=== PATIENT | female | born 1935 | race Caucasian/White ===

== ENCOUNTER 2022-07-10 07:45 | Day surgery (SDC) | payer MEDICARE, OTHER, SELFPAY ==
[2022-07-10] MEDS: Lactated Ringers 1,000 ML 15 ML IV (08:29)
[2022-07-10 08:30] VITALS: BP 169/76; PULSE 75; RESP 18; TEMP 36.9; O2SAT 99; BMI 22.6
[2022-07-10 08:33] LABS: Hematocrit 34.8 % (37-47); Hemoglobin 11.6 g/dL (12.0-15.0); Mean Corp Hgb Conc 33.3 g/dL (32-36); Mean Corpuscular Hgb 31.5 pg (27.0-32.0); Mean Corpuscular Volume 94.6 fL (81-99); Mean Platelet Vol. 9.3 fl (6.2-12.0); Platelet Count 197 K/mm3 (150-450); RBC Distribution Width CV 12.6 % (11.6-14.6); Red Blood Count 3.68 M/mm3 (4.2-5.4); White Blood Count 5.7 K/mm3 (4.4-11.0)
[2022-07-10 09:09] LABS: International Normalized Ratio 1.1; Prothrombin Time (Protime)PT. 14.3 SECONDS (11.7-14.9)
[2022-07-10 09:12] LABS: AST(SGOT) 46 U/L (15-37); Alanine Aminotransfer ALT/SGPT 37 U/L (13-56); Albumin, Serum 3.5 g/dL (3.2-5.0); Alkaline Phosphatase 112 U/L (45-117); Anion Gap 8 (5-15); BUN 15 mg/dL (7-18); BUN/Creat Ratio 16.8 RATIO (10-20); Bilirubin, Direct 0.15 mg/dL (0.00-0.30); Calcium,Total 8.3 mg/dL (8.5-10.1); Chloride 102 mmol/L (98-107); Creatinine, Serum 0.89 mg/dL (0.55-1.02); EST Glomerular Filtration Rate 64 mL/min (>60); Est Glom Filt Rate - Afr Amer 77 mL/min (>60); Estimated Creatinine Clearance 39.18 ml/min; Globulin 3.2 g/dL (2.2-4.2); Glucose 106 mg/dL (74-106); Potassium 4.7 mmol/L (3.5-5.1); Protein, Total 6.7 g/dL (6.4-8.2); Sodium Level 134 mmol/L (136-145)
[2022-07-10 09:31] LABS: Partial Thromboplast Time 23.4 Seconds (24.1-36.2)
--- NOTE | 2022-07-10 09:50 | BLA_PTH ---
PATIENT: JEFFREY CARROLL LOC: [facility] [place] U#:[id number] AGE/SX: 87/F ROOM: RE07/10/[address]: Dr. Shantel Rasmussen MD : [id number] BED: DIS: 07/10/2022 SPEC #: [id number] RECD: 07/10/22 12:36 STATUS: JOSE GASPAR #: [id number] JOANNA: 07/10/22 09:[address]: Shantel Rasmussen DEPT: SURGICAL PATHOLOGY RECD BY: Tiffani Burkett ENTERED: 07/11/22 06:47 SP TYPE: BLADDER BX OTHR DR: CLAUDINE XIE MD Tissues: Urinary bladder, NOS Procedures: Surgery Specimen Level IV HEADER OPERATION: Cysto, biopsy, fulguration, bladder tumor PRE-OP DIAGNOSIS: Bladder lesion small, recurrent UTI TISSUE SUBMITTED: Bladder biopsy MICROSCOPIC DIAGNOSIS Bladder, biopsy: Fragments of urothelial mucosa with moderate to marked acute and chronic inflammation and granulation tissue reaction. Negative for malignancy. See comment. RYAN:ludy 07/11/2022 COMMENT The overlying epithelium is denuded in most of the specimen. Clinical correlation and appropriate follow up are necessary. Case has been reviewed in consultation with Dr. Ivan who concurs with the above diagnosis. IDC:AM MICROSCOPIC DESCRIPTION Slides are reviewed. GROSS DESCRIPTION Received in fixative is one container labeled with the patient's name and designated bladder biopsy. The specimen consists of multiple irregular fragments of mckeon soft tissue that in aggregate measure 0.6 x 0.2 x 0.1 cm. The specimen is totally submitted in one cassette. / RYAN:ludy 07/10/2022 TC:2 CPT: 03828
--- NOTE | 2022-07-10 10:25 | DCINST_ITS ---
Discharge Instructions Diet Discharge Diet: No restrictions Activity Discharge Activity: Return to Normal Activity Dressing / Incision Call your doctor if you observe: Fever of 101 or Higher, Inability to urinate and Inability to have a bowel movement Follow Up Care Please Follow Up With: Shantel Rasmussen MD When: call office for appt Test Results: Test results from this visit will be discussed in further detail at your follow- up appointment, if applicable. Discharge Plan Admission Attending Provider: Shantel Rasmussen Primary Care Provider: CLAUDINE XIE Discharge Orders/Prescriptions Prescriptions: New phenazopyridine [phenazopyridine] 100 mg tablet 100 mg PO TID Qty: 30 0RF Continued atorvastatin 40 mg Tablet 40 mg PO QHS metoprolol succinate 50 mg Tablet Extended Release 24 Hr 50 mg PO QHS amlodipine 5 mg Tablet 5 mg PO 1500 omeprazole 40 mg Capsule,Delayed Release(Dr/Ec) 40 mg PO BID aspirin [Ecotrin Low Strength] 81 mg Tablet,Delayed Release (Dr/Ec) 81 mg PO DAILY carbamazepine 200 mg Tablet 200 mg PO TID colesevelam 625 mg Tablet 1,875 mg PO BID carbamazepine 100 mg Tablet,Chewable 50 mg PO TID nitroglycerin 0.4 mg Tablet, Sublingual 0.4 mg SUBLINGUAL Q5M PRN (Reason: Chest Pain) Rx Instructions: do not exceed 3 doses per episode ascorbic acid (vitamin C) [Vitamin C] 500 mg Capsule, Extended Release 500 mg PO DAILY estradiol 0.01 % (0.1 mg/gram) Cream 1 g VAGINAL MOTHSA methadone 5 mg Tablet 5 mg PO BID losartan 100 mg Tablet 100 mg PO DAILY vitamin B6-vitamin E-magnesium Tablet 1 tab PO DAILY cholecalciferol (vitamin D3) [Vitamin D3] 50 mcg (2,000 unit) Capsule 50 mcg PO DAILY melatonin 5 mg Capsule 5 mg PO QHS Centrum Silver Women 8 mg iron-400 mcg-300 mcg Tablet 1 tab PO QHS Myrbetriq 50 mg Tablet Extended Release 24 Hr 50 mg PO BID Probiotic 3 billion cell Capsule 3,000 mmu cells PO DAILY Rx Instructions: administer with a meal hydroxyzine HCl 25 mg Tablet 25 mg PO BID PRN (Reason: Anxiety) Transdermal Pain Base Cream 1 applic MISCELLANEOUS PRN PRN (Reason: ARTHRITIS) Referrals / Follow Up: CLAUDINE XIE MD [Primary Care Provider] - Disposition Disposition (needs filled in before D/C Order can be placed): Home, Self Care
--- NOTE | 2022-07-10 10:28 | OP.PCM_ITS ---
Report of Operation Date of Procedure: 07/10/22 Pre-Operative Diagnosis: Bladder lesion small, recurrent urinary tract infectio ns Post-Operative Diagnosis: same Surgery/Procedure Performed:: cystoscopy, bladder biopsy with fulguration Surgeon: Shantel Rasmussen Type of Anesthesia: MAC Specimen's removed: Several small mucosal bladder biopsies Description of Procedure: The patient is an 87-year-old female with recurrent urinary tract infections who had a cystoscopy in the office. This revealed an area on the right lateral wall lateral to the ureteral orifice which was very erythematous and inflamed and consistent with either inflammation or early transitional cell malignant changes. Informed consent was obtained and the patient agreed to proceed with biopsy under anesthesia. The patient was taken to the operating room and placed on the operating room table. Anesthesia monitored the head, neck, airway, IV access and vital signs throughout the case. Once anesthesia was appropriately administered, the patient was placed into dorsal lithotomy position was prepped and draped in usual sterile fashion. The cystoscope was inserted through the urethra under direct visualization. The area in question appeared to be much less erythematous today however there was slight edema of the tissues and the biopsies were taken. The areas of biopsy were then fulgurated for hemostatic control and tissue treatment. A small area of erythema approximately 5 mm in size was seen adjacent to the left ureteral orifice and this area was also biopsied and fulgurated. Care was taken to avoid fulguration of the ureteral orifice on both sides. The patient's bladder was then emptied and the case was terminated. She was awakened and taken to the recovery room in good condition. There were no complications during this procedure. Grafts/Implants Used: None Complications none Admit VTE Documentation VTE Present on Admission: Yes VTE Mechan Device Prophylaxis: SCD's VTE Pharm Prophylaxis ordered?: No Reason prophylaxis not ordered:: Treatment Not Indicated
[2022-07-10] MEDS: Cefazolin 2 GM in 0.9% Normal Saline 100 ML IV (10:42)
[2022-07-10 11:18] VITALS: BP 138/47; BP 169/76; PULSE 69; RESP 16; TEMP 36.1; O2SAT 99
[2022-07-10 11:20] VITALS: BP 131/58; BP 169/76; PULSE 69; RESP 16; O2SAT 100
[2022-07-10 11:25] VITALS: BP 138/74; BP 169/76; PULSE 66; RESP 16; O2SAT 100
[2022-07-10 11:30] VITALS: BP 156/85; BP 169/76; PULSE 66; RESP 16; TEMP 36.2; O2SAT 100
[2022-07-10 12:34] VITALS: BP 148/81; BP 169/76; PULSE 68; RESP 14; TEMP 36.6; O2SAT 97
== END 2022-07-10 12:40 | disposition home or self-care (01) ==
LOC: SDC 07:46 → AC 07:49
PROVIDERS: Anesthesiology; PCP Family Medicine; Referring Provider Urology; Visit Provider Urology
PROC: 0TBB8ZX Excision of Bladder, Via Natural or Artificial Opening Endoscopic, Diagnostic (ICD-10-PCS; CPT 52204; principal; 2022-07-10 09:40)
DX: N30.20 Other chronic cystitis without hematuria (principal); N39.46 Mixed incontinence; N32.81 Overactive bladder; N95.2 Postmenopausal atrophic vaginitis; I25.10 Atherosclerotic heart disease of native coronary artery without angina pectoris; R23.3 Spontaneous ecchymoses; I10 Essential (primary) hypertension; E78.00 Pure hypercholesterolemia, unspecified; G47.33 Obstructive sleep apnea (adult) (pediatric); I25.2 Old myocardial infarction; Z79.82 Long term (current) use of aspirin; Z79.899 Other long term (current) drug therapy
CPT/HCPCS: 52204; 00910; 80048; 80076; 85027; 85610; 85730; 88305; J7120; J2405

== ENCOUNTER 2023-10-01 06:00 | Day surgery (SDC) | payer MEDICARE, OTHER, SELFPAY ==
[2023-10-01] VITALS (7 sets, daily range): BP systolic 128–173; BP diastolic 72–83; PULSE 68–72; RESP 16; TEMP 36.4–37.2; O2SAT 98–100; BMI 22.3
[2023-10-01] MEDS: Lactated Ringers 1,000 ML 15 ML IV (06:31)
[2023-10-01 06:37] LABS: Hematocrit 37.4 % (37-47); Hemoglobin 11.7 g/dL (12.0-15.0); Mean Corp Hgb Conc 31.3 g/dL (32-36); Mean Corpuscular Hgb 29.8 pg (27.0-32.0); Mean Corpuscular Volume 95.4 fL (81-99); Mean Platelet Vol. 9.3 fl (6.2-12.0); Platelet Count 250 K/mm3 (150-450); RBC Distribution Width CV 12.8 % (11.6-14.6); RBC Distribution Width SD 44.8 fl (35.1-43.9); Red Blood Count 3.92 M/mm3 (4.2-5.4); White Blood Count 10.5 K/mm3 (4.4-11.0)
[2023-10-01 06:49] LABS: International Normalized Ratio 1.1; Prothrombin Time (Protime)PT. 13.7 SECONDS (11.7-14.9)
[2023-10-01 06:50] LABS: Partial Thromboplast Time 24.4 Seconds (24.1-36.2)
[2023-10-01 06:54] LABS: AST(SGOT) 14 U/L (15-37); Alanine Aminotransfer ALT/SGPT 15 U/L (13-56); Albumin, Serum 3.4 g/dL (3.2-5.0); Alkaline Phosphatase 170 U/L (45-117); Anion Gap 5 (5-15); BUN 25 mg/dL (7-18); BUN/Creat Ratio 19.4 RATIO (10-20); Calcium,Total 9.2 mg/dL (8.5-10.1); Chloride 104 mmol/L (98-107); Creatinine, Serum 1.29 mg/dL (0.55-1.02); EST Glomerular Filtration Rate 42 mL/min (>60); Est Glom Filt Rate - Afr Amer 50 mL/min (>60); Estimated Creatinine Clearance 26.53 ml/min; Globulin 3.5 g/dL (2.2-4.2); Glucose 116 mg/dL (74-106); Potassium 4.7 mmol/L (3.5-5.1); Protein, Total 6.9 g/dL (6.4-8.2); Sodium Level 138 mmol/L (136-145)
--- NOTE | 2023-10-01 07:18 | PRE.ANES_ITS ---
ASA Classification* ASA Classification ASA Classification: 3 Assessment & Plan Anesthesia* Anesthesia Assessment Anesthesia Assessment: Discussed sedation and/or anesthesia options, risks, benefits, and alternatives with patient/parents/legal guardian/POA. Questions invited. The patient/parents/legal guardian/POA seems to understand and agrees to proceed with anesthesia plan. Reviewed the physical assessment, medical history, allergy history and patient home medications list prior to surgery/procedure/anesthetic and documented any changes. Performed airway and anesthesia risk assessments. Anesthesia Type Anesthesia Type: MAC (GA bkup) Anesthesia Focused Assessment* Temperature: 97.5 F Pulse Rate: 72 Blood Pressure: 173/72 Respiratory Rate: 16 Pulse Ox: 99 Airway Assessment Mouth opens: >3 cm Mallampati Score: II Focused Labs Anesthesia Preop lab: CBC WBC 10.5 K/mm3 (4.4-11.0) 10/01/23 06:30 RBC 3.92 M/mm3 (4.2-5.4) L 10/01/23 06:30 Hgb 11.7 g/dL (12.0-15.0) L 10/01/23 06:30 Hct 37.4 % (37-47) 10/01/23 06:30 Plt Count 250 K/mm3 (150-450) 10/01/23 06:30 CHEMISTRY Potassium 4.7 mmol/L (3.5-5.1) 10/01/23 06:30 Sodium 138 mmol/L (136-145) 10/01/23 06:30 BUN 25 mg/dL (7-18) H 10/01/23 06:30 Creatinine 1.29 mg/dL (0.55-1.02) H 10/01/23 06:30 Glucose 116 mg/dL (74-106) H 10/01/23 06:30 COAG PT 13.7 SECONDS (11.7-14.9) 10/01/23 06:30 Pre-Assessment Diagnosis/Proposed Procedure Planned Operative Procedure(s): CYSTO BLADDER BIOPSY WITH FULGERATION Anesthesia History Anesthesia History - assessment nurse practitioner: Anesthesia History - assessment nurse practitioner Hx Hospitalization Yes: 06/2023 OVER PRESCRIBED 09/21/23 14:58 ON SCRIPT MED Any Problems With Anesthesia No 09/21/23 14:58 Cholinesterase deficiency No 09/21/23 14:58 You/Your Family Experience No 09/21/23 14:58 fever (hyperthermia) with Relationship Recent Exposure to Contagious No 10/01/23 06:21 Disease Does patient have nerve No 09/21/23 14:58 stimulator Patient instructed to have device shut off --Does patient have Pacemaker No 10/01/23 06:21 or ICD? When Was Last Pacemaker Check QUESTION #4 FULL TEXT: You/Your Family Experience fever (hyperthermia) with Anesthesia Last Oral Intake Last Oral intake: Last Oral Intake NPO since 04:30 10/01/23 06:21 Meds taken in AM with sips of Yes 10/01/23 06:21 water? Meds patient instructed to see home med list 10/01/23 06:21 take am of surgery PONV PONV - assessment nurse practitioner: PONV - assessment nurse practitioner Female Yes 09/21/23 14:58 HX of Motion Sickness No 09/21/23 14:58 HX of N/V After Surgery No 09/21/23 14:58 Non-Smoker Yes 09/21/23 14:58 Duration of Surgery greater No 09/21/23 14:58 than 60 minutes Number of Risk Factors 2 09/21/23 14:58 PONV Score Moderate Risk 09/21/23 14:58 Height & Weight Height & Weight: Anesthesia: Height & Weight Height 5 ft 4 in 10/01/23 06:21 Weight: 59 kg 10/01/23 06:21 Body Mass Index (BMI) 22.3 10/01/23 06:21 Respiratory Assessment Respiratory Assessment - assessment nurse practitioner: Respiratory Tract Infection Hx - assessment nurse practitioner Hx Respiratory Tract Infection No 09/21/23 14:58 STOP Sleep Apnea STOP Sleep Apnea - assessment nurse practitioner: STOP Sleep Apnea - assessment nurse practitioner Hx Hypertension Yes: CONTROLLED WITH MED 09/21/23 14:58 Hx Sleep Apnea No 09/21/23 14:58 CPAP BIPAP Do you snore loudly (louder No 09/21/23 14:58 than talking or can be heard Do you often feel tired/ Yes 09/21/23 14:58 fatigued/ sleepy during daytime? Has anyone observed you stop No 09/21/23 14:58 breathing during sleep? STOP Results Positive 09/21/23 14:58 QUESTION #5 FULL TEXT : Do you snore loudly (louder than talking or can be heard through closed doors)? 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 Specify any problems Hx of Preganancy in last 3 No 09/21/23 14:58 Months Nurse Filling Out Transfusion DSCHRIBER 09/21/23 14:58 & Questions: Date: 09/21/23 09/21/23 14:58 Time: 14:59 09/21/23 14:58 Patient unable to answer at this time (ie. confused, unrespo /Reproduction History /Reproductive History - assessment nurse practitioner: /Reproductive Hx- assessment nurse practitioner Hx Now Gestational Age (in weeks): EDC: Hx Hx Para Hx Section SAB No 09/21/23 14:58 Active Medications Active Medications: Current Medications Generic Name Dose Route Start Last Admin Trade Name Freq PRN Reason Stop Dose Admin Cefazolin Sodium 2 gm/ Sodium 110 mls @ 150 mls/hr 10/01/23 07:30 Chloride IV 10/01/23 08:13 PREOP ONE Lactated Ringer's 1,000 mls @ 15 mls/hr 10/01/23 06:15 10/01/23 06:31 IV 15 mls/hr .Q48H DIYA Administration PFSH Medical History (Updated 09/21/23 @ 15:04 by Azul Sutton) Fall Hypertension Wears hearing aid Wears glasses Wears dentures Cancer Anxiety Ambulates with cane Arthritis History of renal disease Bladder disease High cholesterol Easy bruising Excessive bleeding Back pain Trigeminal neuralgia Syncope Barretts esophagus History of hiatal hernia Gastric reflux Former smoker History of edema History of echocardiogram History of stress test Cardiology follow-up encounter History of CHF (congestive heart failure) History of heart attack Hx of fracture of pelvis Hx of fracture of femur Hx of cyst of breast History of arm fracture Home Medications ?Medication ?Instructions ?Recorded ?Last Taken ?Type amlodipine 5 mg tablet 5 mg PO 1500 07/03/22 09/30/23 History ascorbic acid (vitamin C) 500 mg 500 mg PO DAILY 07/03/22 09/30/23 History capsule,extended release (Vitamin C) aspirin 81 mg tablet,delayed 81 mg PO DAILY 07/03/22 09/30/23 History release (Ecotrin Low Strength) atorvastatin 40 mg tablet 40 mg PO QHS 07/03/22 Unknown History cholecalciferol (vitamin D3) 50 50 mcg PO DAILY 07/03/22 09/30/23 History mcg (2,000 unit) capsule (Vitamin D3) colesevelam 625 mg tablet 625 mg PO QHS 07/03/22 09/30/23 History cream base no.31 (bulk) 1 applic miscellaneous PRN PRN 07/03/22 09/30/23 History (Transdermal Pain Base cream) ARTHRITIS estradiol 0.01% (0.1 mg/gram) 1 g vaginal DAILY 07/03/22 09/30/23 History vaginal cream hydroxyzine HCl 25 mg tablet 25 mg PO BID PRN Anxiety 07/03/22 09/30/23 History lactobacillus combination no.4 3 3,000 mmu cells PO DAILY 07/03/22 09/30/23 History billion cell capsule (Probiotic) losartan 100 mg tablet 100 mg PO DAILY 07/03/22 10/01/23 History melatonin 5 mg capsule 5 mg PO QHS 07/03/22 Unknown History methadone 5 mg tablet 5 mg PO BID 07/03/22 09/30/23 History metoprolol succinate 50 mg 50 mg PO QHS 07/03/22 09/30/23 History tablet,extended release 24 hr mirabegron 50 mg tablet,extended 50 mg PO BID 07/03/22 09/30/23 History release 24 hr (Myrbetriq) [id number] 8 mg-folic 400 1 tab PO QHS 07/03/22 09/30/23 History mcg-K 50 mcg-lutein 300 mcg tablet (Centrum Silver Women) nitroglycerin 0.4 mg sublingual 0.4 mg sublingual Q5M PRN Chest 07/03/22 Unknown History tablet Pain baclofen 5 mg tablet 5 mg PO TID 09/21/23 09/30/23 History duloxetine 60 mg capsule,delayed 60 mg PO QHS 09/21/23 09/30/23 History release fesoterodine 4 mg tablet,extended 4 mg PO DAILY 09/21/23 09/30/23 History release 24 hr furosemide 20 mg tablet 20 mg PO BID 09/21/23 09/30/23 History Allergy/AdvReac Type Severity Reaction Status Date / Time adhesive tape Allergy Rash Verified 10/01/23 06:32 bacitracin (From Neosporin Allergy Rash Verified 10/01/23 06:32 ([id number])) lidocaine (From Salonpas Allergy Rash Verified 10/01/23 06:32 (lidocaine)) neomycin (From Neosporin Allergy Rash Verified 10/01/23 06:32 ([id number])) polymyxin B (From Neosporin Allergy Rash Verified 10/01/23 06:32 ([id number])) codeine AdvReac Upset Verified 10/01/23 06:32 Stomach gabapentin AdvReac Upset Verified 10/01/23 06:32 Stomach Surgical History (Updated 09/21/23 @ 15:04 by Azul Sutton) Hx of cystoscopy History of coronary artery stent placement Hx of left cataract extraction Hx of right cataract extraction Hx of esophagogastroduodenoscopy Hx of colonoscopy Hx of total knee arthroplasty History of lumbar spinal fusion Hx of hysterectomy History of ERCP Hx of cholecystectomy Hx of dilation and curettage Social History (System 11/06/20 @ 15:19 by Ann-Marie Hodge) Smoking Status: Former smoker Review of Systems (Anesthesia) ROS Narrative System reviewed and no additional complaints, except as documented.
[2023-10-01] MEDS: Cefazolin 2 GM in 0.9% Normal Saline (100mL Bag) 100 ML IV (07:30)
--- NOTE | 2023-10-01 07:39 | PCM.OPRPT ---
Report of Operation Date of Procedure: 10/01/23 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 She has been having uncontrolled bladder pain with increased urgency and frequency despite conservative management. She now presents for cystoscopy with fulguration and possible biopsy. Informed consent was obtained. The patient was taken to the operating room and placed on the operating room table. Anesthesia monitored the head, neck, airway, IV access and vital signs throughout the case. Once anesthesia was appropriately administered, she was placed into dorsolithotomy position and was prepped and draped in usual sterile fashion. The cystoscope was inserted through the urethra under direct visualization into the urinary bladder. The bladder mucosa revealed 3 ulcerations. 1 on the left lateral bladder wall, 1 on the right posterior lateral bladder wall and 1 in the posterior bladder wall. Her bladder mucosa was obviously thin and there was no growth identified. The decision was made to fulgurate these lesions without biopsy as a biopsy has been done previously. The Bugbee was used to cauterize these areas for tissue treatment. At the conclusion of the case, the bladder was emptied and the cystoscope was removed. She was awakened and taken to the recovery room in good condition. There were no complications during this procedure. Complications None Admit VTE Documentation VTE Present on Admission: Yes VTE Mechan Device Prophylaxis: SCD's VTE Pharm Prophylaxis ordered?: No Reason prophylaxis not ordered:: Treatment Not Indicated
--- NOTE | 2023-10-01 07:40 | EX.PCM.DISCH ---
Discharge Instructions Diet Discharge Diet: No restrictions Activity Discharge Activity: Return to Normal Activity Dressing / Incision Call your doctor if you observe: Fever of 101 or Higher, Inability to urinate and Inability to have a bowel movement Follow Up Care Please Follow Up With: Shantel Rasmussen MD When: in the office in 1-2 weeks. Test Results: Test results from this visit will be discussed in further detail at your follow-up appointment, if applicable. Discharge Plan Admission Attending Provider: Shantel Rasmussen Primary Care Provider: CLAUDINE XIE Instructions Print Language: Indonesian Discharge Orders/Prescriptions Prescriptions: New oxycodone-acetaminophen [Percocet] 5-325 mg tablet 1 tab PO Q8H PRN (Reason: pain) 1 Days Qty: 3 0RF Continued atorvastatin 40 mg Tablet 40 mg PO QHS metoprolol succinate 50 mg Tablet Extended Release 24 Hr 50 mg PO QHS amlodipine 5 mg Tablet 5 mg PO 1500 aspirin [Ecotrin Low Strength] 81 mg Tablet,Delayed Release (Dr/Ec) 81 mg PO DAILY colesevelam 625 mg Tablet 625 mg PO QHS nitroglycerin 0.4 mg Tablet, Sublingual 0.4 mg SUBLINGUAL Q5M PRN (Reason: Chest Pain) Rx Instructions: do not exceed 3 doses per episode ascorbic acid (vitamin C) [Vitamin C] 500 mg Capsule, Extended Release 500 mg PO DAILY estradiol 0.01 % (0.1 mg/gram) Cream 1 g VAGINAL DAILY methadone 5 mg Tablet 5 mg PO BID losartan 100 mg Tablet 100 mg PO DAILY cholecalciferol (vitamin D3) [Vitamin D3] 50 mcg (2,000 unit) Capsule 50 mcg PO DAILY melatonin 5 mg Capsule 5 mg PO QHS Centrum Silver Women 8 mg iron-400 mcg-300 mcg Tablet 1 tab PO QHS mirabegron [Myrbetriq] 50 mg Tablet Extended Release 24 Hr 50 mg PO BID Probiotic 3 billion cell Capsule 3,000 mmu cells PO DAILY Rx Instructions: administer with a meal hydroxyzine HCl 25 mg Tablet 25 mg PO BID PRN (Reason: Anxiety) Transdermal Pain Base Cream 1 applic MISCELLANEOUS PRN PRN (Reason: ARTHRITIS) duloxetine 60 mg capsule,delayed release(DR/EC) 60 mg PO QHS baclofen 5 mg tablet 5 mg PO TID furosemide 20 mg tablet 20 mg PO BID fesoterodine 4 mg tablet extended release 24 hr 4 mg PO DAILY Referrals / Follow Up: CLAUDINE XIE MD [Primary Care Provider] - Disposition Disposition (needs filled in before D/C Order can be placed): Home, Self Care
--- NOTE | 2023-10-01 08:04 | PCM.POST.ANE ---
Anesthesia: Postop Eval I Current Vital Signs Temperature: 98.5 F Pulse Rate: 69 Blood Pressure: 128/77 Respiratory Rate: 16 Pulse Ox: 100 Oxygen Delivery Method: Room Air Assessment Airway patent: Yes Spontaneous unlabored respirations: Yes Mental status: Awake and Calm nausea: No Vomiting: No Anesthesia Complication: No Fluid Hydration Crystalloid volume administer (ml): 400 Total IV fluid infused: 400 Progress Note Anesthesia document: Postop Eval 1 completed: Yes
--- NOTE | 2023-10-01 08:30 | POSTOPAN2_ITS ---
Anesthesia Postop Eval I Sum Postop Eval Completion status Anesthesia document: Postop Eval 1 completed: Yes Anesthesia Postop Eval I Summary Anesthesia Postop Eval I Summary: Anesthesia Postop Eval I: Assessment Summary Airway patent Yes 10/01/23 08:05 GRAIN CLEANER AND TRANSFER OPERATOR.GDOTT Spontaneous unlabored Yes 10/01/23 08:05 GRAIN CLEANER AND TRANSFER OPERATOR.GDOTT respirations Mental status Awake,Calm 10/01/23 08:05 GRAIN CLEANER AND TRANSFER OPERATOR.GDOTT nausea No 10/01/23 08:05 GRAIN CLEANER AND TRANSFER OPERATOR.GDOTT Vomiting No 10/01/23 08:05 GRAIN CLEANER AND TRANSFER OPERATOR.GDOTT Anesthesia Postop Eval I: Fluid Summary Crystalloid volume administer 400 10/01/23 08:05 GRAIN CLEANER AND TRANSFER OPERATOR.GDOTT (ml) Colloids volume administered ( ml) Blood Product volume administered (ml) Total IV fluid infused 400 10/01/23 08:05 GRAIN CLEANER AND TRANSFER OPERATOR.GDOTT Anesthesia Postop Eval I: Summary Notes Anesthesia Complication No 10/01/23 08:05 GRAIN CLEANER AND TRANSFER OPERATOR.GDOTT Anesthesia Complication Comment: Post-operative progress note Anesthesia: Postop Eval II Evaluation Mental status: Awake Pain Level: 0 nausea: No Vomiting: No Complications Anesthesia Complication: No
--- NOTE | 2023-10-01 08:30 | PCM.POSTANE2 ---
Anesthesia Postop Eval I Sum Postop Eval Completion status Anesthesia document: Postop Eval 1 completed: Yes Anesthesia Postop Eval I Summary Anesthesia Postop Eval I Summary: Anesthesia Postop Eval I: Assessment Summary Airway patent Yes 10/01/23 08:05 FUSE MAKER.[email or web address] Spontaneous unlabored Yes 10/01/23 08:05 FUSE MAKER.GDOTT respirations Mental status Awake,Calm 10/01/23 08:05 FUSE MAKER.GDOTT nausea No 10/01/23 08:05 FUSE MAKER.GDOTT Vomiting No 10/01/23 08:05 FUSE MAKER.GDOTT Anesthesia Postop Eval I: Fluid Summary Crystalloid volume administer 400 10/01/23 08:05 FUSE MAKER.GDOTT (ml) Colloids volume administered ( ml) Blood Product volume administered (ml) Total IV fluid infused 400 10/01/23 08:05 FUSE MAKER.GDOTT Anesthesia Postop Eval I: Summary Notes Anesthesia Complication No 10/01/23 08:05 FUSE MAKER.GDOTT Anesthesia Complication Comment: Post-operative progress note Anesthesia: Postop Eval II Evaluation Mental status: Awake Pain Level: 0 nausea: No Vomiting: No Complications Anesthesia Complication: No
== END 2023-10-01 09:01 | disposition home or self-care (01) ==
LOC: SDC 06:02 → AC 06:15
PROVIDERS: Anesthesiology; PCP Family Medicine; Referring Provider Urology; Visit Provider Urology
PROC: 0TBB8ZX Excision of Bladder, Via Natural or Artificial Opening Endoscopic, Diagnostic (ICD-10-PCS; CPT 52214; principal; 2023-10-01 07:20)
DX: N30.10 Interstitial cystitis (chronic) without hematuria (principal); G47.33 Obstructive sleep apnea (adult) (pediatric); I10 Essential (primary) hypertension; I25.2 Old myocardial infarction; K22.70 Barrett's esophagus without dysplasia; F41.9 Anxiety disorder, unspecified; R23.3 Spontaneous ecchymoses; E78.00 Pure hypercholesterolemia, unspecified; Z79.899 Other long term (current) drug therapy; Z79.82 Long term (current) use of aspirin; Z87.891 Personal history of nicotine dependence; Z95.5 Presence of coronary angioplasty implant and graft
CPT/HCPCS: 52214; 00910; 80053; 85027; 85610; 85730; J7120; J2405

== ENCOUNTER 2024-11-10 22:37 | Inpatient (IN) | payer MEDICARE, OTHER, SELFPAY ==
[2024-11-10 21:23] VITALS: BP 148/75; PULSE 88; RESP 16; TEMP 36.4; O2SAT 100
--- NOTE | 2024-11-10 21:36 | PCM.HP.STD ---
[facility] - General General Date of Admission: 11/10/24 Date of Service: 11/11/24 Chief Complaint: Here for rehabilitation. HPI Narrative JEFFREY CARROLL, is a 89 Female who presents with followin11/02/2024 Admit [facility] weakness, dizziness, urinary symptoms. 10/31/2024 CTA head showed mild to moderate stenosis p2, p3 segments left posterior cerebral artery. No acute infarcts, old lacunar infarcts present. MRI brain to rule out stroke. Rocephin IV, urine culture pending for UTI. Gemtesa for overactive bladder. 11/03/2024 History trigeminal neuralgia, Lamictal helpful. MRI brain negative for stroke. Dizziness 2/2 UTI/BPPV/medications. Decrease Lamictal to 250mg po bid to improve dizziness. PT/OT. 11/04/2024 Stroke ruled out. Meclizine, Vestibular therapy, Scopolamine patches, Zofran prn for bppv. Rocephin IV, IV fluids, Hold Lasix,urine culture gram negative morro for UTI. Lamictal for trigeminal neuralgia. 11/05/2024 Urine culture growing Citrobacter, continue Rocephin IV. 11/06/2024 Meclizine 25mg tid, Add Reglan, scopolamine patches, Zofran prn, Vestibular therapy for dizziness 2/2 bppv. Rocephin IV x 5 days for Citrobacter UTI. 11/07/2024 Inpatient vestibular therapy for bppv. 11/08/2024 PT/OT for TCU. 11/09/2024 Dizziness improved. Resume Lasix at discharge. 11/10/2024 Admit to TCU with debility, here for rehabilitation, strengthening, prior to discharge home alone. [facility] Medical History (Updated 11/10/24 @ 21:[address] Duke Wilde MD) Hunner's ulcer Fall Hypertension Wears hearing aid Wears glasses Wears dentures Cancer Anxiety Ambulates with cane Arthritis History of renal disease Bladder disease High cholesterol Easy bruising Excessive bleeding Back pain Trigeminal neuralgia Syncope Barretts esophagus History of hiatal hernia Gastric reflux Former smoker History of edema History of echocardiogram History of stress test Cardiology follow-up encounter History of CHF (congestive heart failure) History of heart attack Hx of fracture of pelvis Hx of fracture of femur Hx of cyst of breast History of arm fracture Home Medications ?Medication ?Instructions ?Recorded ?Last Taken ?Type amlodipine 5 mg tablet 5 mg PO 1500 07/03/22 09/30/23 History ascorbic acid (vitamin C) 500 mg 500 mg PO DAILY 07/03/22 09/30/23 History capsule,extended release (Vitamin C) aspirin 81 mg tablet,delayed 81 mg PO DAILY 07/03/22 09/30/23 History release (Ecotrin Low Strength) atorvastatin 40 mg tablet 40 mg PO QHS cholesterol 07/03/22 11/09/24 History cholecalciferol (vitamin D3) 50 50 mcg PO DAILY 07/03/22 09/30/23 History mcg (2,000 unit) capsule (Vitamin D3) colesevelam 625 mg tablet 625 mg PO QHS 07/03/22 09/30/23 History cream base no.31 (bulk) 1 applic miscellaneous PRN PRN 07/03/22 09/30/23 History (Transdermal Pain Base cream) ARTHRITIS estradiol 0.01% (0.1 mg/gram) 1 g vaginal DAILY 07/03/22 09/30/23 History vaginal cream hydroxyzine HCl 25 mg tablet 25 mg PO BID PRN Anxiety 07/03/22 09/30/23 History lactobacillus combination no.4 3 3,000 mmu cells PO DAILY 07/03/22 09/30/23 History billion cell capsule (Probiotic) losartan 100 mg tablet 100 mg PO DAILY 07/03/22 10/01/23 History melatonin 5 mg capsule 5 mg PO QHS 07/03/22 Unknown History methadone 5 mg tablet 5 mg PO BID 07/03/22 09/30/23 History metoprolol succinate 50 mg 50 mg PO QHS 07/03/22 09/30/23 History tablet,extended release 24 hr mirabegron 50 mg tablet,extended 50 mg PO BID 07/03/22 09/30/23 History release 24 hr (Myrbetriq) [id number] 8 mg-folic 400 1 tab PO QHS supplement 07/03/22 11/10/24 History mcg-K 50 mcg-lutein 300 mcg tablet (Centrum Silver Women) nitroglycerin 0.4 mg sublingual 0.4 mg sublingual Q5M PRN Chest 07/03/22 Unknown History tablet Pain baclofen 5 mg tablet 5 mg PO TID 09/21/23 09/30/23 History duloxetine 60 mg capsule,delayed 60 mg PO QHS 09/21/23 09/30/23 History release fesoterodine 4 mg tablet,extended 4 mg PO DAILY 09/21/23 09/30/23 History release 24 hr furosemide 20 mg tablet 20 mg PO BID diuretic 09/21/23 09/30/23 History oxycodone-acetaminophen 5 mg-325 1 tab PO Q8H PRN pain 1 day #3 tabs 10/01/23 Unknown Rx mg tablet (Percocet) Allergy/AdvReac Type Severity Reaction Status Date / Time adhesive tape Allergy Rash Verified 10/01/23 06:32 bacitracin (From Neosporin Allergy Rash Verified 10/01/23 06:32 ([id number])) lidocaine (From Salonpas Allergy Rash Verified 10/01/23 06:32 (lidocaine)) neomycin (From Neosporin Allergy Rash Verified 10/01/23 06:32 ([id number])) polymyxin B (From Neosporin Allergy Rash Verified 10/01/23 06:32 ([id number])) codeine AdvReac Upset Verified 10/01/23 06:32 Stomach gabapentin AdvReac Upset Verified 10/01/23 06:32 Stomach Family History Mother Heart disease Diabetes Father CVA (cerebral vascular accident) Diabetes Sister Diabetes Dementia Brother Diabetes Heart disease Uncle Diabetes Daughter Bipolar disorder Son Diabetes Surgical History Hx of cystoscopy History of coronary artery stent placement Hx of left cataract extraction Hx of right cataract extraction Hx of esophagogastroduodenoscopy Hx of colonoscopy Hx of total knee arthroplasty History of lumbar spinal fusion Hx of hysterectomy History of ERCP Hx of cholecystectomy Hx of dilation and curettage Social History household members: none Smoking Status: Former smoker alcohol intake: never substance use type: does not use ROS Constitutional Constitutional: Reports weakness; Denies chills, fever(s) or weight gain ENT HEENT: Denies headache(s), nasal congestion or nasal discharge Cardiovascular Cardiovascular: Denies chest pain or palpitations Respiratory/Chest Respiratory/Chest: Denies cough, excessive phlegm production or shortness of breath with exertion Gastrointestinal Gastrointestinal: Denies abdominal pain, nausea or vomiting Genitourinary Genitourinary: Denies dysuria Musculoskeletal Musculoskeletal: Denies joint pain or joint swelling Integumentary Integumentary: Denies rash or wounds Neurologic Neurologic: Denies focal weakness, numbness or tingling Psychiatric Psychiatric: Denies anxiety, auditory hallucinations, depression, homicidal ideation or suicidal ideation Physical Exam Const alert General Appearance: cooperative HEENT normocephalic Eyes PERRL and EOMs intact bilaterally Neck supple, no JVD and no carotid bruits Resp normal respiratory effort, normal air movement and clear to auscultation bilaterally Cardio regular rate and regular rhythm GI normal to inspection, nondistended, normoactive bowel sounds, non-tender and non-distended Extremity normal capillary refill General Extremity: Negative for edema Skin no rashes or lesions noted General Skin Exam: no breakdown Psych affect normal Appearance: appropriate Assessment & Plan Assessment/Plan (1) Debility: (2) Dizziness: (3) BPPV (benign paroxysmal positional vertigo): (4) Urinary tract infection: (5) Trigeminal neuralgia: (6) Interstitial cystitis: (7) Essential (primary) hypertension: (8) Coronary artery disease: (9) GERD (gastroesophageal reflux disease): (10) Fibromyalgia: (11) Overactive bladder: PLAN: Plan 89 year old female with below past medical history hospitalized for dizziness 2/2 bppv, medication side effect, stroke ruled out, complicated by urinary tract infection, admitted to TCU with debility, here for rehabilitation, strengthening, prior to discharge home alone. Debility - PT/OT. Pain - Tylenol 1000mg q6 prn pain (1-10). Bowel - Colestipol 2gm daily, she must have chronic diarrhea, monitor for constipation. Adult immunization - Administer pneumonia vaccine, covid vaccine, flu vaccine as appropriate. DVT prophylaxis - Lovenox 40mg sc daily. Coronary artery disease - Losartan 50mg daily, Aspirin 81mg daily, NTG 0.4mg sl q5m prn. Hyperlipidemia - Atorvastatin 40mg qhs. Edema - Furosemide 20mg daily. Trigeminal neuralgia - Lamictal 3000mg bid, Methadone 7.5mg bid, Narcan 4mg nasal x 1 prn opioid overdose. Dizziness - Meclizine 25mg tid prn. Nausea - Zofran 8mg q8 prn. GERD - Pantoprazole 40mg daily. Overactive bladder - Gemtesa 75mg daily. Vitamin B12 deficiency - B12 1000mcg daily. Nutrition - MVI 1 tablet daily.
[2024-11-10 22:00] VITALS: BMI 19.3
--- NOTE | 2024-11-10 23:16 | NURSING ---
Patient denies seizure disorder. A&Ox4. states lamictal is ordered for trigeminal neuralgia. Patient states is a Dr. Rasmussen patient because I get a UTI everytime I turn my head, I get them alot. Discussed code status with patient, patient states code status to be DNRCC-A WITH intubation. Patient states has chronic back pain and methadone is ordered to treat chronic pain. Patient states unaware of vaccine status, PCP Dr. Chamorro.
--- OUTSIDE RECORDS SUMMARY | 2024-11-11 02:19 | XMS RPT_ITS | CCD ---
Author Organization [facility] Care Team Providers Care Rental Sales Representative Name Role Phone Americo Peña Unavailable Marck Peng Unavailable Unavailable Unavailable Unavailable Unavailable Marck Pengt Unavailable Gary Godwin Unavailable [phone] Americo Peña T Admitting Unavailable MarianaAmerico handy Attending Unavailable MarianaAmerico handy Admitting Unavailable MarianaAmerico handy T Attending Unavailable Mariana, Americo T Admitting Unavailable MarianaAmerico T Attending Unavailable Mariana, Americo Lugo Admitting Unavailable Americo Peña Attending Unavailable Gisell Desai Admitting Unavailable Gisell Desai Attending Unavailable Americo Peña Primary Care Provider Marck Pengt Unavailable Unavailable Caitie Mclaughlin Primary Care Provider Marck Pengt Unavailable Caitie Mclaughlin Primary Care Provider Lara Blanco Unavailable Unavailable Americo Peña Primary Care Provider [phone] Americo Peña Primary Care Provider Gisell Desai Primary Care Provider Gisell Desai Primary Care Provider [id number], Collin Unavailable Unavailab Cate Watson Unavailable Unavailable Americo Peña T Unavailable Unavailable Crissy Encarnacion Unavailable Unavailable Pascual, Collin U Unavailable Unavailable Americo Peña Primary Care Provider Nena Cabrera Unavailable Unavailable Pascual, Collin Unavailable Unavailable Gisell Desai Unavailable Unavailable Nena Cabrera Unavailable Unavailable Pascual, Collin U Unavailable Unavailable MarianaAmerico Ector Unavailable Unavailable Valerie Encarnacion DOberly Malika Primary Care Provider Marck Peng DOt Unavailable [place] Gisell FONSECA Primary Care Provider SpringGisell Unavailable Unavailable Unavailable DanishMarck ribeiro DO Earnest Unavailable [place] Gisell FONSECA Primary Care Provider Spring Gisell FONSECA Unavailable Spring Gisell FONSECA Unavailable Spring Gisell FONSECA Unavailable Marck Peng DOnest Unavailable Claudine Majano MD Primary Care Pro vider Marck Peng DOnest Unavailable Claudine Majano MD Primary Care Pro vider Unavailable Unavailable Marck Peng DOnest Unavailable Claudine Majano MD Primary Care Pro vider Danish Grant DO, Daniel Earnest Unavailable Bhavana LOUIS, Candi Johnson Unavailable Unav ailable Spring CUTTER ALUMINUM SHEET-Gisell FONSECA Primary Care Provid er RICK ZAVALA Attending Unavailable MURFREESBOROGISELL Primary Care Unavailable Rick LOUIS, Maribell Unavailable Unavailable Shantel Rasmussen Referring Unavailable Shantel Rasmussen Attending Unavailable CLAUDINE MAJANO Primary Care Unavailable JAKE NAVARRO Admitting Unavailable CLAUDINE MAJANO Primary Care Karen vailable JAKE NAVARRO Attending Unavailable JAKE NAVARRO Admitting Unavailable GRETEL, CLAUDINE NIRAV MOUNIR Primary Care Karen vailable JAKE NAVARRO Attending Unavailable MELANIEJAKE HOLGUIN Attending Unavailable MELANIEJAKE HOLGUIN Admitting Unavailable GRETEL, CLAUDINE NIRAV MOUNIR Primary Care Karen vailable Gretel Claudine ESTES Primary Care Provider GRETEL, CLAUDINE NIRAV MOUNIR Attending Karen vailable GRETEL, CLAUDINE NIRAV MOUNIR Primary Care Karen vailable GRETEL, CLAUDINE NIRAV MOUNIR Attending Karen vailable GRETEL, CLAUDINE NIRAV MOUNIR Primary Care Karen vailable GRETEL, CLAUDINE NIRAV MOUNIR Attending Karen vailable GRETEL, CLAUDINE NIRAV MOUNIR Primary Care Karen vailable GRETEL, CLAUDINE NIRAV MOUNIR Primary Care Karen vailable ROCAEL MCLEOD Attending Unavailable GRETEL, CLAUDINE NIRAV MOUNIR Primary Care Karen vailable JAKE NAVARRO Attending Unavailable GRETEL, CLAUDINE NIRAV MOUNIR Attending Karen vailable GRETEL, CLAUDINE NIRAV MOUNIR Primary Care Karen vailable GRETEL, CLAUDINE NIRAV MOUNIR Primary Care Karen vailable GRETEL, CLAUDINE NIRAV MOUNIR Attending Karen vailable GRETEL, CLAUDINE NIRAV MOUNIR Primary Care Karen vailable GRETEL, CLAUDINE NIRAV MOUNIR Attending Karen vailable GRETEL, CLAUDINE NIRAV MOUNIR Primary Care Karen vailable JAKE NAVARRO Attending Unavailable GRETEL, CLAUDINE NIRAV MOUNIR Primary Care Karen vailable GRETEL, CLAUDINE NIRAV MOUNIR Attending Karen vailable GRETEL, CLAUDINE NIRAV MOUNIR Attending Karen vailable GRETEL, CLAUDINE NIRAV MOUNIR Primary Care Karen vailable GRETEL, CLAUDINE NIRAV MOUNIR Attending Karen vailable GRETEL, CLAUDINE NIRAV MOUNIR Primary Care Karen vailable GRETEL, CLAUDINE NIRAV MOUNIR Primary Care Karen vailable JAKE NAVARRO Attending Unavailable GRETEL, CLAUDINE NIRAV MOUNIR Attending Karen vailable GRETEL, CLAUDINE NIRAV MOUNIR Primary Care Karen vailable GRETEL, CLAUDINE NIRAV MOUNIR Attending Karen vailable GRETEL, CLAUDINE NIRAV MOUNIR Attending Karen vailable GRETEL, CLAUDINE NIRAV MOUNIR Primary Care Karen vailable GRETEL, CLAUDINE NIRAV MOUNIR Primary Care Karen vailable SCHROEDER, VIRENKSONAM M. Attending Unavailable GRETEL, CLAUDINE NIRAV MOUNIR Primary Care Karen vailable GRETEL, CLAUDINE NIRAV MOUNIR Attending Karen vailable GRETEL, CLAUDINE NIRAV MOUNIR Primary Care Karen vailable MELANIE, JAKE Attending Unavailable GRETEL, CLAUDINE NIRAV MOUNIR Attending Karen vailable GRETEL, CLAUDINE NIRAV MOUNIR Primary Care Karen vailable GRETEL, CLAUDINE NIRAV MOUNIR Attending Karen vailable GRETEL, CLAUDINE NIRAV MOUNIR Primary Care Karen vailable GRETEL, CLAUDINE NIRAV MOUNIR Attending Karen vailable GRETEL, CLAUDINE NIRAV MOUNIR Primary Care Karen vailable GRETEL, CLAUDINE NIRAV MOUNIR Attending Karen vailable GRETEL, CLAUDINE NIRAV MOUNIR Primary Care Karen vailable GRETEL, CLADUINE NIRAV MOUNIR Attending Karen vailable GRETEL, CLAUDINE NIRAV MOUNIR Primary Care Karen vailable GRETEL, CLAUDINE NIRAV MOUNIR Primary Care Karen vailable MELANIE, JAKE Attending Unavailable GRETEL, CLAUDINE NIRAV MOUNIR Attending Karen vailable GRETEL, CLAUDINE NIRAV MOUNIR Primary Care Karen vailable GRETEL, CLAUDINE NIRAV MOUNIR Primary Care Karen vailable MELANIE, JAKE Attending Unavailable GRETEL, CLAUDINE NIRAV MOUNIR Attending Karen vailable GRETEL, CLAUDINE NIRAV MOUNIR Primary Care Karen vailable GRETEL, CLAUDINE NIRAV MOUNIR Attending Karen vailable GRETEL, CLAUDINE NIRAV MOUNIR Primary Care Karen vailable GRETEL, CLAUDINE NIRAV MOUNIR Primary Care Karen vailable MELANIE, JAKE Attending Unavailable GRETEL, CLAUDINE NIRAV MOUNIR Attending Karen vailable GRETEL, CLAUDINE NIRAV MOUNIR Primary Care Karen vailable GRETEL, CLAUDINE NIRAV MOUNIR Attending Karen vailable GRETEL, CLAUDINE NIRAV MOUNIR Primary Care Karen vailable GRETEL, CLAUDINE NIRAV MOUNIR Primary Care Karen vailable JAKE NAVARRO Attending Unavailable GRETEL, CLAUDINE NIRAV MOUNIR Attending Karen vailable GRETEL, CLAUDINE NIRAV MOUNIR Primary Care Karen vailable GRETEL, CLAUDINE H Primary Care Unavailable LIZETH COMER Attending Unavailable GRETEL, CLAUDINE H Primary Care Unavailable GRETEL, CLAUDINE NIRAV MOUNIR Primary Care Karen vailable DIRK TRAN Attending Unava ilable STEVE MAYO Attending Unavailab le GRETEL, CLAUDINE NIRAV MOUNIR Primary Care Karen vailable GRETEL, CLAUDINE NIRAV MOUNIR Attending Karen vailable GRETEL, CLAUDINE NIRAV MOUNIR Primary Care Karen vailable GRETEL, CLAUDINE NIRAV MOUNIR Primary Care Karen vailable [facility] Attending U navailable [facility] Consulting Unavai PATIENCE Duran Admitting Unavailabl e Allergies Allergy Classification Reported Allergen(s) Allergy Type Date of Onset Reaction(s) Facility Aminoglycosides (antibiotic) (2 sources) Neomycin Drug Allergy 07-11-19 Rash [facility] Anti-Epileptic Agents (3 sources) gabapentin; Translations: [gabapentin] Drug Allergy 07-11-19 Other (See Comments), GI Intolerance [facility] 300 Work Phone: Aspirin (10 sources) Aspirin Drug Allergy 12-05-19 09 GI Intolerance [facility] Work Phone: Bacitracin (2 sources) Bacitracin Drug Allergy 07-11-19 Rash [facility] bacitracin / neomycin / polymyxin b (9 sources) bacitracin / neomycin / polymyxin b Drug Allergy [facility] Bacitracin / Neomycin / Polymyxin B (1 source) Bacitracin / Neomycin / Polymyxin B; Translations: [Neosporin OINT] [facility] Work Phone: Bacitracin / Polymyxin B (9 sources) Bacitracin / Polymyxin B Drug Allergy 03-26-19 21 [facility] Corticosteroids (10 sources) Hydrocortisone Drug Allergy 02-02-20 13 Rash [facility] diphenhydrAMINE (1 source) diphenhydrAMINE; Translations: [Benadryl Allergy TABS] Drug Allergy Hives, Itching [facility] 300 Work Phone: Latex (10 sources) natural latex rubber Substance Allergy 12-28-19 14 Unknown [facility] Lidocaine (2 sources) Lidocaine Drug Allergy 07-11-19 23 Rash [facility] NSAIDs (1 source) meloxicam; Translations: [meloxicam] Drug Allergy Constipation [facility] 300 Work Phone: Opioid Agonists (11 sources) Codeine; Translations: [Codeine Derivatives] Drug Allergy 07-19-19 14 [facility] (20 sources) aspirin; Translations: [ASPIRIN] Propensity to adverse reactions to drug 12-05-19 09 GI Intolerance [facility] Work Phone: (20 sources) bacitracin / neomycin / polymyxin b; Translations: [NEOMYCIN-BACITRA CNZN-POLYMYXNB] Propensity to adverse reactions to drug [facility] (20 sources) codeine; Translations: [Codeine Derivatives] Propensity to adverse reactions to drug 07-19-19 14 Unknown, GI Intolerance [facility] Work Phone: (20 sources) hydrocortisone; Translations: [HYDROCORTISONE] Propensity to adverse reactions to drug 02-02-20 13 Rash [facility] Work Phone: (20 sources) natural latex rubber; Translations: [LATEX, NATURAL RUBBER] Propensity to adverse reactions to drug 12-28-19 14 Unknown [facility] Work Phone: (20 sources) Neomycin-Bacitrac nzn-Polymyxnb Propensity to adverse reactions to drug Rash [facility] (20 sources) Bacitracin / Polymyxin B; Translations: [Neosporin OINT] Drug Allergy 03-26-19 21 Unknown, Rash [facility] Work Phone: (6 sources) Latex Gloves MISC; Translations: [Latex Gloves MISC] Allergy to drug (finding) [facility] Work Phone: (20 sources) Latex Propensity to adverse reactions to drug 12-28-19 14 Unknown, Hives [facility] (20 sources) diphenhydrAMINE; Translations: [Benadryl Allergy TABS] Drug Allergy 01-15-20 23 Hives, Itching [facility] 300 Work Phone: (20 sources) gabapentin; Translations: [gabapentin] Drug Allergy 07-11-19 23 Other (See Comments), GI Intolerance, Dizziness [facility] (8 sources) meloxicam; Translations: [meloxicam] Drug Allergy 01-15-20 Constipation [facility] 300 Work Phone: (20 sources) Adhesive Tape-Silicones; Translations: [ADHESIVE TAPE-SILICONES] Propensity to adverse reactions to drug 12-17-19 22 Rash [facility] (2 sources) Adhesive Tape; Translations: [adhesive tape] Allergy to substance 07-11-19 [facility] (20 sources) Bacitracin; Translations: [BACITRACIN] Drug Allergy 07-11-19 [facility] (20 sources) Lidocaine; Translations: [LIDOCAINE] Drug Allergy 07-11-19 [facility] (20 sources) Neomycin; Translations: [NEOMYCIN] Drug Allergy 07-11-19 [facility] (1 source) Polymyxin B Drug Allergy 07-11-19 [facility] (5 sources) Bacitracin / Neomycin / Polymyxin B; Translations: [NEOSPORIN (NEOMYCIN-POLYMYX )] Drug Allergy 01-15-20 [facility] Work Phone: (5 sources) Latex; Translations: [LATEX] Allergy to substance 01-15-20 [facility] Work Phone: (6 sources) diphenhydrAMINE; Translations: [DIPHENHYDRAMINE] Drug Allergy 01-15-[address] [facility] 3 Repository (6 sources) BACITRACIN ZINC-POLYMYXIN B; Translations: [BACITRACIN ZINC-POLYMYXIN B] Propensity to adverse reactions to drug (disorder) 03-26-19 [facility] 3 Repository (1 source) Bacitracin Drug Allergy 10-01-19 24 [facility] Repository (1 source) Codeine Drug Allergy 10-01-19 [facility] Repository (1 source) gabapentin Drug Allergy 10-01-19 [facility] Repository (1 source) Lidocaine Drug Allergy 10-01-19 [facility] Repository (1 source) Neomycin Drug Allergy 10-01-19 [facility] Repository (1 source) polymyxin B Drug allergy (disorder) 10-01-19 [facility] Repository (20 sources) carBAMazepine; Translations: [CARBAMAZEPINE] Drug Allergy 11-04-19 Anxiety, Dizziness only, GI Intolerance [facility] Medications Current Medications Medication Drug Class(es) Dates Sig (Normalized) Sig (Original) acetaminophen 500 mg / diphenhydrAMINE hydrochloride 25 mg oral tablet (20 sources) Histamine-1 Receptor Antagonist take 1 tablet by mouth once as needed for sleep diphenhydrAMINE-ac etaminophen (Tylenol PM) 25-500 mg per tablet Take 1 tablet by mouth as needed at bedtime for sleep. Active End: 10-13-2023 take 2 tablets by mouth once daily as needed diphenhydrAMINE-acetaminophen (TYLENOL P M) 25-500 mg Tab Take 2 (two) tablets by mouth nightly as needed . 10/13/2023 Discontinued (Patient's Request) amLODIPine 5 mg oral tablet (15 sources) Dihydropyridine Calcium Channel Fransisca Start: 04-05-2022 End: 09-16-2022 take 1 tablet by mouth once daily amLODIPine (Norvasc) 5 mg tablet Take 1 tablet (5 mg) by mouth once daily. 07/02/2022 Active ascorbic acid 500 mg extended release oral capsule (4 sources) Vitamin C Start: 07-03-2022 take 1 capsule by mouth once daily Ascorbic Acid (Vitamin C) (Vitamin C) 500 mg Capsule, Extended Release Active 500 MG PO DAILY July 03, 2022 12:00am take 1 tablet by mouth once dada y ascorbic acid (Vitamin C) 1,000 mg tablet Take 1 tablet (1,000 mg) by mouth once daily. Active aspirin 81 mg delayed release oral tablet (20 sources) Platelet Aggregation Inhibitor, Nonsteroidal Anti-inflammatory Drug Start: 04-07-2020 take 1 tablet by mouth twice daily RA Aspirin EC 325 MG Oral Tablet Delayed Release take 1 tablet by mouth twice a day Quantity: 60 Refills: 0 Ordered: 07-Apr-2020 DO Start : 07-Apr-2020 Complete Start: 08-23-2018 End: 09-16-2022 take 1 tablet by mouth once daily Aspirin (Ecotrin Low Strength) 81 mg Tablet,Delayed Release (Dr/Ec) Active 81 MG PO DAILY July 03, 2022 12:00am take 81 mg by mouth once daily in the morning aspirin (ECOTRIN ORAL) Take 81 mg by mouth every morning . Active aspirin (ECOTRIN ORAL) Take by mouth . Active aspirin (ECOTRIN ORAL) Take by mouth . 0 aspirin (ECOTRIN ORAL) Take by mouth . 0 Suspended aspirin (ECOTRIN ORAL) Take by mouth . 0 Active betamethasone 0.5 mg/ml / clotrimazole 10 mg/ml topical cream (6 sources) Azole Antifungal, Corticosteroid Start: 04-16-2022 clotrimazole-betamethasone (Lotrisone) cream 04/16/2022 Active Start: 04-16-2022 End: 04-16-2023 clotrimazole-betamethasone ( Lotrisone) cream Indications: Dermatitis Apply topically 2 (two) times a day . 30 g 0 04/16/2022 06/13/2022 Discontinued bifidobacterium animalis [id number] unt / lactobacillus acidophilus [id number] unt oral capsule (3 sources) take 1 capsule by mouth once daily L. acidophilus/Bifid. animalis 15.5 billion cell capsule Take 1 capsule by mouth once daily. Active Calcium (2 sources) Phosphate Binder, Calcium take 1 tablet by mouth once daily CALCIUM ORAL Take 1 tablet by mouth daily . Active take 1 tablet by mouth once dada y CALCIUM ORAL Take 1 tablet by mouth daily . cephalexin 500 mg oral capsule (20 sources) Cephalosporin Antibacterial Start: 07-25-2022 End: 09-16-2022 take 15.1 mL by mouth four times daily cephALEXin (KEFLEX) 125 mg/5 mL suspension Take 15.1 mL (377.5 mg total) by mouth 4 (four) times a day . 100 mL 0 07/25/2022 09/16/2022 Discontinued (Patient's Request) Start: 05-29-2022 take 1 capsule by mo uth once daily at bedtime cephalexin (Keflex) 250 mg capsule Take 1 capsule (250 mg) by mouth once daily at bedtime. 05/29/2022 Active Start: 07-13-2018 End: 01-18-2019 take 1 capsule by mouth once daily cephALEXin (KEFLEX) 250 MG capsule Take 250 mg by mouth daily . 0 09/18/2018 01/18/2019 Discontinued (Therapy completed) Start: 09-08-2017 End: 10-05-2023 take 1 capsule by mouth three times daily cephalexin (Keflex) 500 mg capsule Take 1 capsule (500 mg) by mouth 3 times a day. 11/17/2022 Active cholecalciferol 0.05 mg oral capsule (4 sources) Vitamin D Start: 07-03-2022 take 1 capsule by mouth once daily Cholecalciferol (Vitamin D3) (Vitamin D3) 50 mcg (2,000 unit) Capsule Active 50 MCG PO DAILY July 03, 2022 12:00am cholecalciferol (Vitamin D3) 10 MCG (400 UNIT) tablet Take by mouth once daily. Active ciprofloxacin 500 mg oral tablet (8 sources) Quinolone Antimicrobial Start: 07-07-2022 End: 05-25-2023 take 1 tablet by mouth twice daily ciprofloxacin (Cipro) 500 mg tablet Take 1 tablet (500 mg) by mouth 2 times a day. 07/07/2022 Active Start: 05-30-2021 End: 07-12-2021 take 1 tablet by mouth twice daily ciprofloxacin HCl (CIPRO) 500 MG tablet Indications: Urinary frequency , Acute cystitis with hematuria Take 1 (one) tablet (500 mg total) by mouth 2 (two) times a day . 14 tablet 0 05/30/2021 07/12/2021 Discontinued (Patient Discharge) colesevelam hydrochloride 625 mg oral tablet (20 sources) Bile Acid Sequestrant Start: 07-03-2022 take 1875 mg by mouth twice daily Colesevelam Active 1875 MG PO TWICE A DAY July 03, 2022 12:00am Start: 04-04-2022 End: 04-05-2022 take 1875 mg by mouth twice daily at mealtime 1,875 mg, Oral, 2 times daily with meals, First dose on Thu04/04/22 at 1700 End: 02-24-2023 take 3 tablets by mouth twice daily at mealtime colesevelam (WELCHOL) 625 mg tablet Indications: hyperlipidemia Take 3 (three) tablets (1,875 mg total) by mouth 2 (two) times a day with meals Reasons: excessive fat in the blood. 0 02/24/2023 Discontinued (Patient's Request) colestipol hydrochloride 1000 mg oral tablet (20 sources) Bile Acid Sequestrant Start: 06-27-2022 take 2 tablets by mouth once daily at lunch colestipoL (COLESTID) 1 gram tablet Take 2 (two) tablets (2 g total) by mouth daily with lunch . 06/27/2022 Active Start: 06-27-2022 colestipol (Co lestid) 1 gram tablet Indications: Diarrhea due to malabsorption ([facility]) TAKE 1 TABLET TWICE A DAY 180 tablet 3 12/30/2023 Active Start: 01-16-2022 take 1 tablet by ray twice daily Colestipol HCl - 1 GM Oral Tablet Take 1 tablet twice daily Quantity: 180 Refills: 3 Ordered: 16-Jan-2022 Rick Zavala DO Start : 16-Jan-2022 Active take 1 tablet by ray twice daily colestipol (COLESTID) 1 gram tablet Take 1 g by mouth twice daily. 0 Active Comment on above: Take 1 g by mouth tw ice daily. Cream Base No.31 (Bulk) (Transdermal Pain Base) Cream (1 source) Start: 07-03-2022 Cream Base No.31 (Bulk) (Transdermal Pain Base) Cream Active 1 APPLIC MC NEEDED July 03, 2022 12:00am cyanocobalamin, vitamin B-12, (VITAMIN B12 ORAL) (2 sources) take 1 tablet by mouth once daily cyanocobalamin, vitamin B-12, (VITAMIN B12 ORAL) Take 1 tablet by mouth daily . Active take 1 tablet by mouth once dada y cyanocobalamin, vitamin B-12, (VITAMIN B12 ORAL) Take 1 tablet by mouth daily . D-MANNOSE ORAL (20 sources) take 2 capsules by m outh once daily D-MANNOSE ORAL Take 2 capsules by mouth daily in the afternoon . Active take 2 capsules by mouth once da ysabel D-MANNOSE ORAL Take 2 capsules by mouth daily in the afternoon . D-MANNOSE ORAL A ctive D-MANNOSE ORAL d-mannose, bulk, 99 % powder (3 sources) d-mannose, bulk, 99 % powder Active d-mannose, bulk, 99 % powder diclofenac sodium 0.01 mg/mg topical gel (20 sources) Nonsteroidal Anti-inflammatory Drug Start: 08-01-2022 End: 10-24-2022 diclofenac sodium (Voltaren) 1 % gel gel APPLY 1 SMALL AMOUNT TO AFFECTED AREA EVERY 6 HOURS NEEDED FOR PAIN 08/01/2022 Active Start: 06-13-2022 diclofenac sod ium 1 % Gel Indications: Left hip pain 3 times a day . 4 g 0 06/13/2022 Active Start: 10-10-2021 End: 06-13-2022 diclofenac sodium 1 % Gel AP PLY A SMALL AMOUNT TO AFFECTED AREA EVERY 6 HOURS NEEDED FOR PAIN 0 10/10/2021 06/13/2022 Discontinued (Reorder (Suppress CancelRx Message to Pharmacy)) escitalopram 10 mg oral tablet (15 sources) Serotonin Reuptake Inhibitor Start: 11-02-2017 escitalopram oxalate (LEXAPRO) 10 MG tablet Take 1 (one) tablet (10 mg total) by mouth daily X 4 weeks then take 1/2 tablet daily x 2 weeks then discontinue all together.. 45 tablet 0 11/02/2017 Active Start: 04-04-2017 End: 11-02-2017 escitalopram oxalate (LEXAPR O) 10 MG tablet TAKE 2 TABLETS DAILY 180 tablet 3 04/04/2017 11/02/2017 Discontinued Start: 04-18-2016 take 2 tablets by mo [facility] once daily escitalopram oxalate (LEXAPRO) 10 MG tablet Take 2 tablets (20 mg total) by mouth daily. 180 tablet 3 04/18/2016 Active take 1 tablet by ray once daily escitalopram oxalate (LEXAPRO) 10 mg tablet Take 10 mg by mouth once daily. 0 Active Comment on above: Take 10 mg by mouth once daily. estradiol 0.1 mg/ml vaginal cream (20 sources) Estrogen Start: 12-24-2023 estradioL (ESTRACE) 0.01 % (0.1 mg/gram) vaginal cream Indications: Vaginal dryness Insert 2 (two) g into the vagina daily . 42.5 g 1 12/24/2023 Active Start: 05-19-2023 estradioL (EST RACE) 0.01 % (0.1 mg/gram) vaginal cream Insert 2 (two) g into the vagina daily . 42.5 g 1 05/19/2023 Active Start: 07-03-2022 Estradiol Acti ve 1 GM VAGINAL MOTHSA July 03, 2022 12:00am Start: 06-09-2022 End: 05-19-2023 estradioL (ESTRACE) 0.01 % ( 0.1 mg/gram) vaginal cream insert 1 gram vaginally three times a week BEFORE BEDTIME 06/09/2022 05/19/2023 Discontinued (Reorder (Suppress CancelRx Message to Pharmacy)) estradiol (Estra ce) 0.01 % (0.1 mg/gram) vaginal cream Insert 0.5 Applicatorfuls (2 g) into the vagina once daily. Active Gemtesa 75 mg tablet (3 sources) Start: 12-08-2022 Gemtesa 75 mg tablet 12/08/2022 Active Start: 12-08-2022 Gemtesa 75 mg tablet hydrOXYzine hydrochloride 25 mg oral tablet (17 sources) Antihistamine Start: 07-03-2022 take 25 mg by mouth twice daily Hydroxyzine Hcl Active 25 MG PO TWICE A DAY July 03, 2022 12:00am Start: 06-13-2022 End: 06-13-2023 take 1 capsule by mouth three times daily as needed for anxiety hydrOXYzine pamoate (Vistaril) 25 mg capsule Take 1 capsule (25 mg) by mouth 3 times a day as needed for anxiety. 06/13/2022 Active Start: 06-09-2017 End: 06-09-2018 take 1 capsule by mouth at bedtime as needed hydrOXYzine (VISTARIL) 25 MG capsule Take 1 (one) capsule (25 mg total) by mouth at bedtime as needed (insomnia). 30 capsule 1 06/09/2017 06/09/2018 Active Inhalational Spacing Device (4 sources) Start: 09-12-2016 End: 09-12-2017 inhalational spacing device inhaler Use as instructed. 1 each 2 09/12/2016 09/12/2017 Active Start: 07-21-2016 End: 07-21-2017 inhalational spacing device inhaler Indications: Cough Use as instructed with the inhaler. 1 each 2 07/21/2016 07/21/2017 Active Lactobacillus acidophilus (2 sources) [facility] Lactobacillus acidophilus (PROBIOTIC ORAL) Take 1 capsule by mouth daily . Active take 1 capsule by mouth once ysabel ly Lactobacillus acidophilus (PROBIOTIC ORAL) Take 1 capsule by mouth daily . Lactobacillus Combination No.4 (Probiotic) 3 billion cell Capsule (1 source) Start: 07-03-2022 take 3 capsules by mouth once daily Lactobacillus Combination No.4 (Probiotic) 3 billion cell Capsule Active 3000 MMU CELLS PO DAILY July 03, 2022 12:00am administer with a meal loratadine 10 mg oral tablet (20 sources) End: 02-12-2021 take 1 tablet by mouth every twenty-four hours as needed loratadine (Claritin) 10 mg tablet Take 1 tablet (10 mg) by mouth once daily as needed. Active meloxicam 15 mg oral tablet (4 sources) Nonsteroidal Anti-inflammatory Drug Start: 10-16-2021 End: 10-21-2021 take 1 tablet by mouth once daily meloxicam (MOBIC) 15 MG tablet Take 1 (one) tablet (15 mg total) by mouth daily for 5 days . 5 tablet 0 10/16/2021 10/21/2021 Active methenamine hippurate 1000 mg oral tablet (17 sources) Start: 08-16-2022 End: 02-24-2023 take 1 tablet by mouth twice daily methenamine hippurate (Hiprex) 1 gram tablet Take 1 tablet (1 g) by mouth 2 times a day. 08/16/2022 Active methylPREDNISolone (1 source) Corticosteroid Start: 10-11-2021 End: 10-16-2021 methylPREDNISolone (MEDROL DOSEPACK) 4 mg tablet use as directed FOLLOW DIRECTIONS ON BACK OF FOIL PACK 0 10/11/2021 10/16/2021 Discontinued 24 hr mirabegron 50 mg extended release oral tablet (12 sources) beta3-Adrenergic Agonist Start: 07-03-2022 take 1 tablet by mouth twice daily Mirabegron (Myrbetriq) 50 mg Tablet Extended Release 24 Hr Active 50 MG PO TWICE A DAY July 03, 2022 12:00am Start: 06-11-2022 Myrbetriq 25 m g tablet extended release 24 hr 24 hr tablet 06/11/2022 Active Start: 06-11-2022 take 1 tablet by ray th twice daily Myrbetriq 25 mg Tb24 Take 1 (one) tablet (25 mg total) by mouth 2 (two) times a day . 0 06/11/2022 Active Start: 04-16-2022 End: 05-16-2022 take 1 tablet by mouth once daily mirabegron (Myrbetriq) 25 mg Tb24 Indications: Mixed incontinence urge and stress Take 1 (one) tablet (25 mg total) by mouth daily . 30 tablet 2 04/16/2022 05/16/2022 Active Start: 12-19-2021 End: 01-18-2022 take 1 tablet by mouth once daily mirabegron (Myrbetriq) 25 mg Tb24 Indications: Mixed incontinence urge and stress Take 1 (one) tablet (25 mg total) by mouth daily . 30 tablet 0 12/19/2021 01/08/2022 Discontinued Rxhltgyi-Pme-Iqtn-Fa-Lutein (Centrum Silver Women) 8 mg iron-400 mcg-300 mcg Tablet (1 source) Start: 07-03-2022 take 1 tablet by mouth once at bedtime Pzbtofnv-Pyv-Xmwz-Fa-Lutein (Centrum Silver Women) 8 mg iron-400 mcg-300 mcg Tablet Active 1 TABLET PO AT BEDTIME July 03, 2022 12:00am nidecjfr-bcq-uxev-FA-vit K-l ut (Centrum Silver Women) 8 mg iron-400 mcg-50 mcg tablet (3 sources) take 1 tablet by mouth once daily ihvnmmnp-wxj-zgfr-FA-vit K-lut (Centrum Silver Women) 8 mg iron-400 mcg-50 mcg tablet Take 1 tablet by mouth once daily. Active take 1 tablet by mouth once dada y lheorrgj-owo-sytc-FA-vit K-lut (Centrum Silver Women) 8 mg iron-400 mcg-50 mcg tablet Take 1 tablet by mouth once daily. 0 Active MULTIVIT-MIN/IRON/FOLIC/LUTE IN (CENTRUM SILVER WOMEN ORAL) (20 sources) take 1 tablet by mouth once daily MULTIVIT-MIN/IRON/FOLIC/LUTEIN (CENTRUM SILVER WOMEN ORAL) Take 1 tablet by mouth daily. take 1 tablet by ray th once daily MULTIVIT-MIN/IRON/FOLIC/LUTEIN (CENTRUM SILVER WOMEN ORAL) Take 1 tablet by mouth daily. 0 take 1 tablet by ray th once daily MULTIVIT-MIN/IRON/FOLIC/LUTEIN (CENTRUM SILVER WOMEN ORAL) Take 1 tablet by mouth daily. 0 Suspended take 1 tablet by ray th once daily MULTIVIT-MIN/IRON/FOLIC/LUTEIN (CENTRUM SILVER WOMEN ORAL) Take 1 tablet by mouth daily. 0 Active take 1 tablet by ray th once daily MULTIVIT-MIN/IRON/FOLIC/LUTEIN (CENTRUM SILVER WOMEN ORAL) Take 1 tablet by mouth daily. Active naloxone hydrochloride 40 mg/ml nasal spray (20 sources) Opioid Antagonist Start: 04-22-2023 naloxone (NA RCAN) 4 mg/actuation Amanda Administer 1 spray into one nostril for known or suspected opioid overdose. If patient worsens or does not respond, may repeat in 2-3 minutes. . 2 each 0 04/22/2023 Active Start: 12-02-2022 naloxone (Narc an) 4 mg/0.1 mL nasal spray IF OVERDOSE SUSPECTED, SPRAY 4 MILLIGRAMS (MG) (1 SPRAY INTO ONE ... (REFER TO PRESCRIPTION NOTES). 12/02/2022 Active Start: 12-02-2022 naloxone (Narc an) 4 mg/0.1 mL nasal spray IF OVERDOSE SUSPECTED, SPRAY 4 MILLIGRAMS (MG) (1 SPRAY INTO ONE ... (REFER TO PRESCRIPTION NOTES). 0 12/02/2022 Active naloxone (NARCAN) 4 mg/actua tion Amanda (20 sources) Start: 08-10-2024 naloxone (NARC AN) 4 mg/actuation Amanda Administer 1 spray into one nostril for known or suspected opioid overdose. If patient worsens or does not respond, may repeat in 2-3 minutes. . 2 each 08/10/2024 Start: 08-10-2024 naloxone (NARC AN) 4 mg/actuation Amanda Administer 1 spray into one nostril for known or suspected opioid overdose. If patient worsens or does not respond, may repeat in 2-3 minutes. . 2 each 08/10/2024 Active Start: 05-12-2024 End: 08-10-2024 naloxone (NARCAN) 4 mg/actua tion Amanda Administer 1 spray into one nostril for known or suspected opioid overdose. If patient worsens or does not respond, may repeat in 2-3 minutes. . 2 each 05/12/2024 08/10/2024 Discontinued (Reorder (Suppress CancelRx Message to Pharmacy)) Start: 05-12-2024 naloxone (NARC AN) 4 mg/actuation Amanda Administer 1 spray into one nostril for known or suspected opioid overdose. If patient worsens or does not respond, may repeat in 2-3 minutes. . 2 each 05/12/2024 Active Start: 04-13-2024 End: 05-12-2024 naloxone (NARCAN) 4 mg/actua tion Amanda Administer 1 spray into one nostril for known or suspected opioid overdose. If patient worsens or does not respond, may repeat in 2-3 minutes. . 2 each 04/13/2024 05/12/2024 Discontinued (Reorder (Suppress CancelRx Message to Pharmacy)) Start: 04-13-2024 naloxone (NARC AN) 4 mg/actuation Amanda Administer 1 spray into one nostril for known or suspected opioid overdose. If patient worsens or does not respond, may repeat in 2-3 minutes. . 2 each 04/13/2024 Active Start: 01-01-2024 End: 04-13-2024 naloxone (NARCAN) 4 mg/actua tion Amanda Administer 1 spray into one nostril for known or suspected opioid overdose. If patient worsens or does not respond, may repeat in 2-3 minutes. . 2 each 01/01/2024 04/13/2024 Discontinued Start: 01-01-2024 naloxone (NARC AN) 4 mg/actuation Amanda Administer 1 spray into one nostril for known or suspected opioid overdose. If patient worsens or does not respond, may repeat in 2-3 minutes. . 2 each 01/01/2024 Active Start: 09-28-2023 End: 01-01-2024 naloxone (NARCAN) 4 mg/actua tion Amanda Administer 1 spray into one nostril for known or suspected opioid overdose. If patient worsens or does not respond, may repeat in 2-3 minutes. . 2 each 09/28/2023 01/01/2024 Discontinued Start: 09-28-2023 naloxone (NARC AN) 4 mg/actuation Amanda Administer 1 spray into one nostril for known or suspected opioid overdose. If patient worsens or does not respond, may repeat in 2-3 minutes. . 2 each 09/28/2023 Active Start: 04-22-2023 End: 09-28-2023 naloxone (NARCAN) 4 mg/actua tion Amanda Administer 1 spray into one nostril for known or suspected opioid overdose. If patient worsens or does not respond, may repeat in 2-3 minutes. . 2 each 04/22/2023 09/28/2023 Discontinued Start: 04-22-2023 naloxone (NARC AN) 4 mg/actuation Amanda Administer 1 spray into one nostril for known or suspected opioid overdose. If patient worsens or does not respond, may repeat in 2-3 minutes. . 2 each 04/22/2023 Active nitrofurantoin, macrocrystals 25 mg / nitrofurantoin, monohydrate 75 mg oral capsule (7 sources) Nitrofuran Antibacterial Start: 04-16-2022 End: 10-01-2024 take 1 capsule by mouth twice daily nitrofurantoin, macrocrystal-monohydrate, (MACROBID) 100 MG capsule Take 1 (one) capsule (100 mg total) by mouth 2 (two) times a day for 5 days . 10 capsule 09/26/2024 10/01/2024 Active Start: 10-16-2017 End: 10-21-2017 take 1 capsule by mouth twice daily nitrofurantoin, macrocrystal-monohydrate , (MACROBID) 100 MG capsule Take 1 (one) capsule (100 mg total) by mouth 2 (two) times a day for 5 days. 10 capsule 0 10/16/2017 10/21/2017 Discontinued NON FORMULARY (3 sources) NON FORMULARY Sa line Tabs Active NON FORMULARY Sa line Tabs 0 Active 24 hr oxybutynin chloride 5 mg extended release oral tablet (20 sources) Cholinergic Muscarinic Antagonist Start: 03-24-2022 oxybutynin XL (Ditropan-XL) 5 mg 24 hr tablet 03/24/2022 Active Start: 02-11-2022 End: 03-24-2023 take 1 tablet by mouth once daily oxybutynin (DITROPAN-XL) 5 MG 24 hr tablet Indications: Mixed incontinence urge and stress Take 1 (one) tablet (5 mg total) by mouth daily . 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 90 tablet 3 04/30/2020 09/27/2020 Discontinued Start: 04-18-2016 End: 06-09-2017 oxybutynin (DITROPAN-XL) 10 MG 24 hr tablet TAKE 1 TABLET DAILY 90 tablet 3 03/05/2017 06/09/2017 Discontinued take 1 tablet by ray th once daily Oxybutynin Chloride 5 MG Oral Tablet Take 1 tablet daily Quantity: 0 Refills: 0 Ordered: 26-Jun-2020 DO Active phenazopyridine hydrochloride 100 mg oral tablet (7 sources) Start: 07-10-2022 take 1 tablet by mouth three times daily phenazopyridine (Pyridium) 100 mg tablet Take 1 tablet (100 mg) by mouth 3 times a day. 07/10/2022 Active Start: 05-30-2021 End: 05-30-2022 take 1 tablet by mouth three times daily phenazopyridine (PYRIDIUM) 200 MG tablet Indications: Acute cystitis with hematuria Take 1 (one) tablet (200 mg total) by mouth 3 (three) times a day . 10 tablet 0 05/30/2021 07/12/2021 Discontinued (Patient Discharge) phenytoin sodium 100 mg extended release oral capsule (7 sources) Anti-epileptic Agent Start: 09-05-2021 End: 09-05-2022 take 1 capsule by mouth twice daily phenytoin (DILANTIN) 100 MG ER capsule Indications: Trigeminal neuralgia Take 1 (one) capsule (100 mg total) by mouth 2 (two) times a day . 60 capsule 11 09/05/2021 10/16/2021 Discontinued microencapsulated potassium chloride 20 meq extended release oral tablet (13 sources) Start: 03-15-2017 KLOR-CON M20 20 mEq tablet TAKE 1 TABLET TWICE A DAY 180 tablet 3 03/15/2017 Active Start: 06-09-2016 End: 06-09-2017 KLOR-CON M20 20 mEq tablet T HERMELINDO 1 TABLET TWICE A DAY 180 tablet 3 03/15/2017 Active sulfamethoxazole 800 mg / trimethoprim 160 mg oral tablet (16 sources) Dihydrofolate Reductase Inhibitor Antibacterial, Sulfonamide Antimicrobial Start: 05-19-2023 End: 05-22-2023 take 1 tablet by mouth twice daily sulfamethoxazole-trimethoprim (BACTRIM DS,SEPTRA DS) 800-160 mg per tablet Take 1 (one) tablet by mouth 2 (two) times a day for 3 days . 6 tablet 0 05/19/2023 05/22/2023 Active Start: 05-11-2023 End: 05-14-2023 take 1 tablet by mouth twice daily sulfamethoxazole-trimethoprim (BACTRIM DS,SEPTRA DS) 800-160 mg per tablet Indications: Frequent UTI Take 1 (one) tablet by mouth 2 (two) times a day for 3 days . 6 tablet 0 05/11/2023 05/14/2023 Active Start: 11-17-2022 take 1 tablet by ray th once daily at bedtime sulfamethoxazole-trimethoprim (Bactrim) 400-80 mg tablet Take 1 tablet by mouth once daily at bedtime. 11/17/2022 Active Start: 04-05-2022 take 1 tablet by ray th every twelve hours sulfamethoxazole-trimethoprim (Bactrim D S) 800-160 mg tablet Take 1 tablet by mouth every 12 hours. 04/05/2022 Active Start: 04-04-2022 End: 04-05-2022 take 1 tablet by mouth every twelve hours sulfamethoxazole-trimethoprim (BACTRIM DS,SEPTRA DS) 800-160 mg per tablet Take 1 (one) tablet by mouth every 12 (twelve) hours . 3 tablet 0 04/05/2022 Active Start: 06-30-2018 End: 07-07-2018 take 1 tablet by mouth twice daily sulfamethoxazole-trimethoprim (BACTRIM DS,SEPTRA DS) 800-160 mg per tablet Indications: Frequent UTI Take 1 (one) tablet by mouth 2 (two) times a day for 7 days . 14 tablet 0 06/30/2018 07/07/2018 Active traMADol hydrochloride 50 mg oral tablet (18 sources) Opioid Agonist Start: 11-05-2022 take 0.5 tablet by mouth every eight hours as needed for pain traMADol (Ultram) 50 mg tablet TAKE 1/2 TABLET BY MOUTH EVERY 8 HOURS NEEDED FOR CHRONIC PAIN... (REFER TO PRESCRIPTION NOTES). 11/05/2022 Active Start: 03-15-2020 traMADol HCl - 50 MG Oral Tablet Quantity: 90 Refills: 0 Ordered: 15-Mar-2020 DO Start : 15-Mar-2020 Complete Start: 03-15-2020 End: 04-14-2020 take 1 tablet by mouth every eight hours as needed for pain traMADoL (ULTRAM) 50 mg tablet Indications: Degenerative disc disease, lumbar , 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-sided sciatica Take 1 (one) tablet (50 mg total) by mouth every 8 (eight) hours as needed for pain (Days supply per fill: 30) . 90 tablet 0 03/15/2020 04/14/2020 Active Start: 01-16-2020 End: 01-23-2020 take 1 tablet by mouth twice daily as needed for pain, then take 7 tablets by mouth as needed for pain traMADoL (ULTRAM) 50 mg tablet Indications: Chronic left SI joint pain , Sciatica, left side Take 1 (one) tablet (50 mg total) by mouth 2 (two) times a day as needed for pain (Days supply per fill: 7) . 14 tablet 0 01/16/2020 01/23/2020 Active Start: 08-23-2018 End: 08-25-2018 take 1 tablet by mouth every four hours as needed traMADol (ULTRAM) tablet 50 mg vibegron (Gemtesa) 75 mg Tab (20 sources) take 1 tablet by ray th once daily vibegron (Gemtesa) 75 mg Tab Take 1 (one) tablet (75 mg total) by mouth daily . Active take 1 tablet by mouth once dada y vibegron (Gemtesa) 75 mg Tab Take 1 (one) tablet (75 mg total) by mouth daily . vibegron (Gemtes a) 75 mg Tab Take by mouth . Active vibegron (Gemtes a) 75 mg Tab Take by mouth . 0 vibegron (Gemtes a) 75 mg Tab Take by mouth . 0 Suspended vibegron (Gemtes a) 75 mg Tab Take by mouth . 0 Active vitamin b12 0.1 mg oral tablet (3 sources) Vitamin B12 take 1 tablet by mouth once daily cyanocobalamin (Vitamin B-12) 100 mcg tablet Take 1 tablet (100 mcg) by mouth once daily. Active vitamin b6 100 mg oral tablet (3 sources) take 1 tablet by mouth once daily pyridoxine (Vitamin B-6) 100 mg tablet Take 1 tablet (100 mg) by mouth once daily. Active Vitamin B6-Vitamin E-Magnesium (1 source) Start: 07-03-2022 take 1 tablet by mouth once daily Vitamin B6-Vitamin E-Magnesium Active 1 TABLET PO DAILY July 03, 2022 12:00am Completed/Discontinued Medications Medication Drug Class(es) Dates Sig (Normalized) Sig (Original) acetaminophen 325 mg oral tablet (3 sources) Start: 07-07-2023 End: 07-09-2023 take 1 tablet by mouth every four hours as needed for pain and headache 650 mg, Oral, Every 4 hours PRN, mild pain, fever 100.4 F or greater, headaches, Starting on Thu07/07/23 at 2141 Start: 04-04-2022 End: 04-05-2022 take 1 tablet by mouth every four hours as needed for pain and headache acetaminophen (TYLENOL) tablet 650 mg Start: 08-23-2018 End: 08-25-2018 take 1 tablet by mouth every four hours as needed 650 mg, Oral, Every 4 hours PRN, mild pain, fever 100.4 F or greater, headaches, Starting Thu08/23/18 at 0836 acetaminophen 325 mg / HYDROcodone bitartrate 5 mg oral tablet (4 sources) Opioid Agonist Start: 04-20-2024 End: 05-20-2024 take 1 tablet by mouth every eight hours as needed for pain HYDROcodone-acetaminophen (NORCO) 5-325 mg per tablet Indications: Lumbar spondylosis Take 1 (one) tablet by mouth every 8 (eight) hours as needed for pain (Days supply per fill: 30) Start: 04/20/24. 90 tablet 04/20/2024 04/26/2024 Discontinued (Formulary change) Start: 04-07-2020 HYDROcodone-Ac etaminophen 5-325 MG Oral Tablet Quantity: 20 Refills: 0 Ordered: 07-Apr-2020 DO Start : 07-Apr-2020 Complete acetaminophen 325 mg / oxyCODONE hydrochloride 5 mg oral tablet (6 sources) Opioid Agonist Start: 04-17-2020 End: 07-25-2020 take 1 tablet by mouth every four hours as needed oxyCODONE-acetaminophen (PERCOCET) 5-325 mg per tablet Take 1 tablet by mouth every 4 to 6 hours as needed FOR PAIN . 0 04/17/2020 07/25/2020 Discontinued 60 actuat albuterol 0.09 mg/actuat metered dose inhaler (7 sources) beta2-Adrenerg ic Agonist Start: 10-03-2016 End: 10-03-2017 albuterol (VENTOLIN HFA) 90 mcg/actuation inhaler Indications: Cough Inhale 2 (two) puffs every 6 (six) hours as needed for wheezing (if 2 puffs too shaky then decrease to 1 puff). 1 Inhaler 1 10/03/2016 06/09/2017 Discontinued atorvastatin 40 mg oral tablet (20 sources) HMG-CoA Reductase Inhibitor Start: 11-02-2024 End: 11-10-2024 take 40 mg by mouth once daily 40 mg, Oral, Nightly, First dose on Thu11/02/24 at 2230 Start: 12-24-2023 End: 09-23-2024 take 1 tablet by mouth once daily atorvastatin (LIPITOR) 40 MG tablet Indications: Mixed hyperlipidemia Take 1 (one) tablet (40 mg total) by mouth nightly . 90 tablet 3 09/23/2024 Start: 04-14-2023 End: 07-09-2023 take 1 tablet by mouth once daily atorvastatin (LIPITOR) 40 MG tablet Indications: Mixed hyperlipidemia Take 1 (one) tablet (40 mg total) by mouth nightly . 90 tablet 3 04/14/2023 Active Start: 08-05-2022 End: 12-22-2022 take 1 tablet by mouth once daily atorvastatin (LIPITOR) 40 MG tablet Indications: Mixed hyperlipidemia Take 1 (one) tablet (40 mg total) by mouth nightly . 90 tablet 3 12/22/2022 Active Start: 07-03-2022 take 40 mg by mouth at bedtime Atorvastatin Active 40 MG PO AT BEDTIME July 03, 2022 12:00am Start: 04-08-2022 End: 04-05-2022 atorvastatin (LIPITOR) table t 40 mg Start: 11-12-2021 End: 08-05-2022 take 1 tablet by mouth once daily atorvastatin (LIPITOR) 40 MG tablet Indications: Mixed hyperlipidemia Take 1 (one) tablet (40 mg total) by mouth nightly . 90 tablet 0 03/24/2022 08/05/2022 Discontinued (Reorder (Suppress CancelRx Message to Pharmacy)) Start: 08-25-2018 End: 12-10-2021 take 1 tablet by mouth once daily atorvastatin (LIPITOR) 80 MG tablet Indications: Mixed hyperlipidemia Take 1 (one) tablet (80 mg total) by mouth nightly . 90 tablet 0 09/11/2021 11/12/2021 Discontinued (Reorder) Start: 08-24-2018 End: 08-25-2018 take 80 mg by mouth once daily 80 mg, Oral, Nightly, F irst dose on Thu08/24/18 at 2100 take 0.5 tablet by m outh once daily at bedtime atorvastatin (Lipitor) 80 mg tablet Take 0.5 tablets (40 mg) by mouth once daily at bedtime. Active Lipitor 40 MG Or al Tablet Quantity: 0 Refills: 0 Ordered: 17-May-2014 DO Active azelastine hydrochloride 0.137 mg/actuat metered dose nasal spray (8 sources) Histamine-1 Receptor Antagonist Start: 09-02-2016 End: 06-09-2017 azelastine (ASTELIN) 137 mcg (0.1 %) nasal spray 2 sprays by Each Nare route 2 (two) times a day. 0 09/02/2016 06/09/2017 Discontinued Start: 12-06-2009 azelastine 137 mcg NASAL nasal spray Azithromycin (Z-Horace) 5 Day Dose Pack (2 sources) Macrolide Antimicrobial Start: 01-27-2017 End: 03-12-2017 take 2 tablets by mouth once daily, then take 1 tablet by mouth, then take 1 tablet by mouth once daily azithromycin (Z-HORACE) 5 day dose pack Indications: Upper respiratory tract infection, unspecified type Take two tablets by mouth on day 1, then one tablet by mouth daily until finished.. 6 tablet 0 01/27/2017 03/12/2017 Discontinued baclofen 5 mg oral tablet (20 sources) gamma-Aminobutyric Acid-ergic Agonist Start: 07-09-2023 End: 11-04-2023 take 1 tablet by mouth three times daily baclofen 5 mg Tab Take 1 (one) tablet (5 mg total) by mouth 3 (three) times a day . 270 tablet 3 08/28/2023 11/04/2023 Discontinued (Alternate therapy) Start: 07-08-2023 End: 07-09-2023 baclofen (LIORESAL) tablet 5 mg Start: 07-06-2023 End: 07-09-2023 take 10 mg by mouth three times daily 10 mg, Oral, 3 times daily, First dose on Thu07/07/23 at 2330 Start: 03-05-2023 End: 03-23-2024 take 1 tablet by mouth three times daily baclofen (LIORESAL) 20 MG tablet Take 1 (one) tablet (20 mg total) by mouth 3 (three) times a day . 270 tablet 3 03/24/2023 07/02/2023 Discontinued (Stop Taking at Discharge) Start: 12-17-2022 take 4 tablets by mo uth three times daily baclofen (Lioresal) 5 mg tablet Take 4 tablets (20 mg) by mouth 3 times a day. 12/17/2022 Active Start: 12-17-2022 End: 04-20-2023 take 1 tablet by mouth three times daily baclofen 5 mg Tab Take 1 (one) tablet (5 mg total) by mouth 3 (three) times a day . 90 tablet 2 01/20/2023 02/24/2023 Discontinued (Patient's Request) Biotin (3 sources) End: 05-11-2023 BIOTIN ORAL Take by mouth . 0 05/11/2023 Discontinued (Patient's Request) BIOTIN ORAL Take by mouth . 0 Active BIOTIN ORAL Take by mouth. 0 Active Comment on above: Take by mouth. bisacodyl 10 mg rectal suppository (1 source) Stimulant Laxative Start: 08-24-19 End: 08-26-19 take 10 mg rectal route once daily as needed for constipation 10 mg, Rectal, Daily PRN, constipation, Starting 08/23/18 at 0836 Try oral medications first for constipation.&nbsp ; Try rectal medication only if oral meds ineffective, not tolerated, or not ordered. carBAMazepine 200 mg oral tablet (20 sources) Mood Stabilizer Start: 07-07-19 End: 07-08-19 take 100 mg by mouth twice daily 100 mg, Oral, 2 times daily, First dose on Thu07/07/23 at 2300, For 2 doses, CATEGORY C HAZARDOUS DRUG use safe handling precautions. Use reference link to view PPE guidelines. Minimize crushing/splitting only to situations where clinically necessary. Start: 12-19-2022 carBAMazepine (TEGretol) 100 mg chewable tablet Chew 2 tablets (200 mg) 2 times a day. 12/19/2022 Active Start: 07-03-2022 take 50 mg by mouth three times daily Carbamazepine Active 50 MG PO THREE TIMES A DAY July 03, 2022 12:00am Start: 04-04-2022 End: 04-05-2022 take 50 mg by mouth three times daily 50 mg, Oral, 3 times daily, First dose on Thu04/04/22 at 1130 Pharmacy to crush/split CATEGORY C HAZARDOUS DRUG use safe handling precautions. Use reference link to view PPE guidelines. Minimize crushing/splitting only to situations where clinically necessary. Start: 01-08-2022 End: 02-24-2023 carBAMazepine (TEGretol) 100 mg chewable tablet Chew and Swallow 0.5 (one-half) tablet (50 mg total) 3 (three) times a day . 45 tablet 11 12/19/2022 02/24/2023 Discontinued (Patient's Request) Start: 10-22-2021 End: 12-19-2023 carBAMazepine (TEGRETOL) 200 mg tablet Indications: Trigeminal neuralgia TAKE 1 TABLET THREE TIMES A DAY 270 tablet 3 03/16/2023 07/09/2023 Discontinued (Stop Taking at Discharge) Start: 09-19-2021 End: 09-19-2022 take 1 tablet by mouth twice daily carBAMazepine (TEGRETOL) 200 mg tablet Indications: Trigeminal neuralgia Take 1 (one) tablet (200 mg total) by mouth 2 (two) times a day . 60 tablet 11 09/19/2021 09/19/2022 Active Start: 07-12-2021 End: 12-04-2022 carBAMazepine (TEGretol) 100 mg chewable tablet Indications: Trigeminal neuralgia Chew and Swallow 1 (one) tablet (100 mg total) 3 (three) times a day . 90 tablet 11 12/04/2021 12/04/2022 Active Start: 07-12-2021 End: 07-12-2021 take 1 tablet by mouth twice daily carBAMazepine (TEGretol XR) 100 MG 12 hr tablet Indications: Trigeminal neuralgia Take 1 (one) tablet (100 mg total) by mouth 2 (two) times a day . 60 tablet 6 07/12/2021 07/12/2021 Discontinued Start: 04-16-2020 End: 04-16-2021 carBAMazepine (TEGRETOL) 200 mg tablet Take 1.5 (one and a half) tablets (300 mg total) by mouth 3 (three) times a day . 135 tablet 0 04/16/2020 12/31/2020 Discontinued Start: 03-06-2020 End: 09-19-2021 take 1 tablet by mouth three times daily carBAMazepine (TEGRETOL) 200 mg tablet Indications: Trigeminal neuralgia Take 1 (one) tablet (200 mg total) by mouth 3 (three) times a day . 270 tablet 3 07/12/2021 09/19/2021 Discontinued (Reorder) Start: 12-07-2019 End: 12-06-2020 take 1 tablet by mouth twice daily carBAMazepine (TEGretol XR) 100 MG 12 hr tablet Indications: Trigeminal neuralgia of left side of face Take 1 (one) tablet (100 mg total) by mouth 2 (two) times a day May increase with 200 mg twice a day after a week if tolerated. . 60 tablet 11 12/07/2019 08/14/2020 Discontinued take 1 tablet by ray th three times daily carBAMazepine ER 200 MG Oral Tablet Extended Release 12 Hour TAKE 1 TABLET 3 times daily Quantity: 0 Refills: 0 Ordered: 26-Jun-2020 DO Active End: 01-08-2022 carBAMazepine (TEGretol) 100 mg chewable tablet Chew and Swallow daily Patient states that she is cutting in half. . 0 01/08/2022 Discontinued (Reorder) cefTRIAXone 1000 mg injection (3 sources) Cephalosporin Antibacterial Start: 11-03-2024 End: 11-06-2024 1,000 mg, Intravenous, at 100 mL/hr, Every 24 hours, First dose (after last modification) on Nae 11/03/24 at 1700, For 4 doses, Indication: UTI (mild to moderate) Start: 11-02-2024 End: 11-02-2024 1,000 mg, Intravenous, at 10 0 mL/hr, Once, On Thu11/02/24 at 1650, For 1 dose, Indication: UTI (mild to moderate) Start: 07-08-2023 End: 07-09-2023 1,000 mg, Intravenous, at 10 0 mL/hr, Every 24 hours, First dose on Thu07/08/23 at 1600, Indication: UTI (mild to moderate) Centrum Silver 50+Women Oral Tablet (4 sources) take 1 tablet by mouth once daily Centrum Silver 50+Women Oral Tablet TAKE 1 TABLET DAILY. Quantity: 0 Refills: 0 Ordered: 26-Jun-2020 DO Active cholestyramine resin 4000 mg powder for oral suspension (20 sources) Bile Acid Sequestrant Start: 08-17-19 End: 02-12-20 cholestyramine (QUESTRAN) 4 gram powder Take 1 (one) Scoopful (4 g total) by mouth daily . 756 g 1 01/28/2022 02/11/2022 Discontinued Start: 03-12-2020 End: 03-15-2021 cholestyramine (QUESTRAN) 4 gram powder Take 1 (one) Scoopful (4 g total) by mouth daily . 756 g 1 03/15/2021 Active Start: 03-22-2018 End: 01-17-2020 take 1 dose by mouth once daily at breakfast cholestyramine (QUESTRAN) 4 gram packet Indications: Gastroesophageal reflux disease, esophagitis presence not specified Take 1 (one) packet by mouth daily with breakfast Hour prior or hour post . 90 each 3 03/22/2018 Active Start: 04-18-2016 End: 06-09-2017 take 1 dose by mouth twice daily cholestyramine (QUESTRAN) 4 gram powder Take 1 packet (4 g total) by mouth 2 (two) times a day. 378 g 3 04/18/2016 Active diazePAM 5 mg oral tablet (6 sources) Benzodiazepine Start: 06-26-2023 End: 07-07-2023 diazePAM (VALIUM) 5 MG tablet Indications: DDD (degenerative disc disease), lumbar Take 1 (one) tablet (5 mg total) by mouth 2 (two) times a day as needed for anxiety (take 1 tablet 1 hour prior to procedure. Can take additional tablet 30 min prior to procedure.) (Days supply per fill: 1) . 2 tablet 06/26/2023 07/07/2023 Discontinued Start: 06-18-2023 End: 06-26-2023 take 1 tablet by mouth once daily as needed for anxiety, then take 1 tablet by mouth every hour as needed for anxiety diazePAM (VALIUM) 5 MG tablet Indications: Anxiety Take 1 (one) tablet (5 mg total) by mouth daily as needed for anxiety Take 1 tablet 1 hour prior to procedure time. Take a second tablet just prior to arrival if needed. . 2 tablet 06/18/2023 06/26/2023 Discontinued Disability Placard (4 sources) Start: 08-09-2020 Disability Michael card 5 years duration Quantity: 1 Refills: 0 Ordered: 09-Aug-2020 Nena Kaur DO Start : 09-Aug-2020 Active Start: 08-09-2020 Disability Michael card 5 years duration Quantity: 1 Refills: 0 Ordered: 09-Aug-2020 Nena Cabrera DO Start : 09-Aug-2020 Active DULoxetine 30 mg delayed release oral capsule (20 sources) Serotonin and Norepinephrine Reuptake Inhibitor Start: 05-11-2023 End: 05-12-2024 take 1 capsule by mouth at bedtime DULoxetine (CYMBALTA) 60 MG capsule Indications: Moderate major depression (HCC) Take 1 (one) capsule (60 mg total) by mouth at bedtime . 90 capsule 3 05/11/2023 05/12/2024 Discontinued Start: 02-24-2023 End: 04-05-2025 take 1 capsule by mouth once daily DULoxetine (CYMBALTA) 30 MG capsule Indications: Moderate major depression (HCC) Take 1 (one) capsule (30 mg total) by mouth daily Total of 90 mg with the 60 mg script . 90 capsule 3 04/05/2024 09/23/2024 Discontinued Start: 03-27-2020 End: 04-30-2021 take 1 capsule by mouth once daily DULoxetine (CYMBALTA) 60 MG capsule Indications: 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-sided sciatica , Depression, unspecified depression type Take 1 (one) capsule (60 mg total) by mouth daily . 90 capsule 3 04/30/2020 09/27/2020 Discontinued Start: 03-27-2020 DULoxetine HCl - 60 MG Oral Capsule Delayed Release Particles Quantity: 90 Refills: 0 Ordered: 24-Jul-2020 DO Start : 27-Mar-2020 Complete Start: 03-15-2020 End: 03-15-2021 take 1 capsule by mouth once daily DULoxetine (CYMBALTA) 30 MG capsule Indications: 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-sided sciatica , Depression, unspecified depression type Take 1 (one) capsule (30 mg total) by mouth daily . 30 capsule 11 03/15/2020 03/27/2020 Discontinued (Reorder) 0.4 ml enoxaparin sodium 100 mg/ml prefilled syringe (4 sources) Low Molecular Weight Heparin Start: 11-10-2024 End: 11-10-2024 inject 40 mg by subcutaneous injection once daily 40 mg, Subcutaneous, Daily, First dose (after last modification) on Thu11/10/24 at 0900, Administer in abdomen unless otherwise directed by prescriber. Notify physician if patient refuses., Prophylaxis Indication: VTE Prophylaxis Start: 11-02-2024 End: 11-09-2024 inject 30 mg by subcutaneous injection once daily 30 mg, Subcutaneous, Daily, First dose on Thu11/02/24 at 2100, Administer in abdomen unless otherwise directed by prescriber. Notify physician if patient refuses., Prophylaxis Indication: VTE Prophylaxis Start: 07-08-2023 End: 07-09-2023 inject 40 mg by subcutaneous injection once daily 40 mg, Subcutaneous, Daily, First dose on Thu07/08/23 at 0900, Administer in abdomen unless otherwise directed by prescriber. Notify physician if patient refuses., Indication: VTE Prophylaxis Start: 04-04-2022 End: 04-05-2022 enoxaparin (LOVENOX) syringe 40 mg ergocalciferol [id number] unt oral capsule (20 sources) Provitamin D2 Compound Start: 03-24-2018 End: 01-17-2020 take 1 capsule by mouth once ergocalciferol (ERGOCALCIFEROL) 50,000 unit capsule Indications: Vitamin D deficiency Take 1 (one) capsule (50,000 Units total) by mouth every 14 (fourteen) days . 7 capsule 3 03/24/2018 01/17/2020 Discontinued Start: 06-09-2017 End: 09-21-2018 take 1 capsule by mouth every week ergocalciferol (ERGOCALCIFEROL) 50,000 unit capsule Indications: Vitamin D deficiency Take 1 (one) capsule (50,000 Units total) by mouth once a week. 13 capsule 3 09/21/2017 03/24/2018 Discontinued esomeprazole 40 mg delayed release oral capsule (1 source) Proton Pump Inhibitor Start: 12-04-2008 esomeprazole mag trihydrate(NEXIUM 40 MG CAP) Take one(1) capsule daily. 0 12/04/2008 Active Comment on above: Take one(1) capsule daily. Flu Vaccine [id number](65yr Up)(Pf)180 McG/0.5 Ml Intramuscular Syringe (1 source) Start: 12-10-2016 End: 12-10-2016 flu vaccine tv 2017, 65yr up,, PF, (FLUZONE HIGH DOSE) syringe Sign this order in conjunction with the immunization order to satisfy [place] Board of Pharmacy Positive ID requirements for immunization orders.. 0.5 mL 0 12/10/2016 12/10/2016 fluconazole 100 mg oral tablet (1 source) Azole Antifungal Start: 04-04-2022 End: 04-04-2022 fluconazole (DIFLUCAN) tablet 150 mg 120 actuat fluticasone propionate 0.11 mg/actuat metered dose inhaler (20 sources) Corticosteroid Start: 03-12-2020 End: 06-30-2023 take 2 puff(s) by mouth twice daily fluticasone propionate (FLOVENT HFA) 110 mcg/actuation inhaler Indications: Simple chronic bronchitis (HCC) Inhale 2 (two) puffs 2 (two) times a day Rinse mouth after each use . 3 each 0 06/30/2022 02/24/2023 Discontinued (Patient's Request) Start: 06-23-2018 End: 06-23-2019 take 2 puff(s) by mouth twice daily fluticasone propionate (FLOVENT HFA) 110 mcg/actuation inhaler Indications: Simple chronic bronchitis (HCC) Inhale 2 (two) puffs 2 (two) times a day Rinse mouth after each use . 3 Inhaler 3 06/23/2018 Active Start: 09-12-2016 End: 09-18-2018 take 1 puff(s) by mouth twice daily fluticasone (FLOVENT HFA) 110 mcg/actuation inhaler Indications: Simple chronic bronchitis (HCC) Inhale 1 (one) puff 2 (two) times a day Rinse mouth after each use. 2 Inhaler 2 09/18/2017 06/23/2018 Discontinued Start: 04-18-2016 End: 06-09-2017 take 1 spray(s) nasal route twice daily fluticasone (FLONASE) 50 mcg/actuation nasal spray Instill 1 spray into each nostril 2 (two) times a day. 48 g 4 04/18/2016 06/09/2017 Discontinued take 2 puff(s) by in halation every twelve hours fluticasone (Flovent) 110 mcg/actuation inhaler Inhale 2 puffs. AT 12 HOUR INTERVALS (MORNING AND EVENING). Active take 2 puff(s) by in halation every twelve hours Flovent 110 MCG/ACT AERO INHALE 2 PUFFS AT 12 HOUR INTERVALS (MORNING AND EVENING). Quantity: 0 Refills: 0 Ordered: 26-Jun-2020 DO Active furosemide 20 mg oral tablet (20 sources) Loop Diuretic Start: 07-21-2023 End: 07-20-2024 take 2 tablets by mouth twice daily furosemide (LASIX) 20 MG tablet Indications: Chronic systolic heart failure (HCC) Take 2 (two) tablets (40 mg total) by mouth 2 (two) times a day . 360 tablet 3 07/21/2023 07/20/2024 Active Start: 12-19-2022 End: 06-06-2025 take 20 mg by mouth once daily 20 mg, Oral, Daily, Fir st dose on Nae 11/03/24 at 0900, On hold since Thu11/04/2024 at 1201 until manually unheld Start: 07-25-2022 End: 11-30-2024 take 1 tablet by mouth twice daily furosemide (LASIX) 20 MG tablet Indications: Essential hypertension , Chronic systolic heart failure (HCC) Take 1 (one) tablet (20 mg total) by mouth 2 (two) times a day . 180 tablet 3 12/01/2023 06/06/2024 Discontinued Start: 04-18-2016 End: 09-17-2017 take 1 tablet by mouth once daily furosemide (LASIX) 20 MG tablet Indications: Essential hypertension Take 1 (one) tablet (20 mg total) by mouth daily. 90 tablet 3 09/18/2017 Active gabapentin 300 mg oral capsule (14 sources) Anti-epileptic Agent Start: 11-24-2018 Gabapenti n 300 MG Oral Capsule QD x 3days, then BID x 3days, then TID Quantity: 270 Refills: 3 Ordered: 01-Dec-2018 Collin Garner MD Start : 24-Nov-2018 Active Start: 11-24-2018 Gabapentin 300 MG Oral Capsule QD x 3days, then BID x 3days, then TID Quantity: 270 Refills: 3 Collin Garner MD Start : 24-Nov-2018 Active Start: 11-24-2018 End: 03-27-2020 gabapentin (NEURONTIN) 300 M G capsule Take 300 capsules by mouth 3 (three) times a day . 0 12/01/2018 06/14/2019 Discontinued (Discontinued by another clinician) End: 06-14-2019 take 1 capsule by mouth three times daily gabapentin (NEURONTIN) 100 MG capsule Take 100 mg by mouth 3 (three) times a day . 0 06/14/2019 Discontinued (Discontinued by another clinician) 1 ml heparin sodium, porcine 5000 unt/ml injection (2 sources) Unfractionated Heparin, Anti-coagulant Start: 08-24-2018 End: 08-25-2018 heparin (porcine) injection 5,000 Units Start: 08-23-2018 End: 08-23-2018 heparin (porcine) injection 5,000 Units inhalational spacing device inhaler (7 sources) Start: 09-12-2016 End: 01-27-2017 inhalational spacing device inhaler Use as instructed. 1 each 2 09/12/2016 01/27/2017 Discontinued Start: 09-12-2016 End: 09-12-2017 inhalational spacing device inhaler Use as instructed. 1 each 2 09/12/2016 09/12/2017 Active Start: 07-21-2016 End: 06-09-2017 inhalational spacing device inhaler Indications: Cough Use as instructed with the inhaler. 1 each 2 07/21/2016 06/09/2017 Discontinued Start: 07-21-2016 End: 07-21-2017 inhalational spacing device inhaler Indications: Cough Use as instructed with the inhaler. 1 each 2 07/21/2016 07/21/2017 Active iohexol (OMNIPaque) 350 mg iodine/mL solution 69 mL (1 source) Start: 10-27-2024 End: 10-27-2024 69 mL, intravenous, Once in imaging, Starting on Thu10/27/24 at 1214, For 1 dose lamoTRIgine 250 mg oral tablet (20 sources) Mood Stabilizer, Anti-epileptic Agent Start: 11-03-2024 End: 11-10-2024 take 250 mg by mouth twice daily 250 mg, Oral, 2 times daily, First dose (after last modification) on Thu11/03/24 at 2100 Start: 11-02-2024 End: 11-03-2024 take 300 mg by mouth twice daily 300 mg, Oral, 2 times daily, First dose on Thu11/02/24 at 2230 Start: 10-17-2024 End: 10-17-2024 lamoTRIgine (LAMICTAL) 200 M G tablet Take 1.5 (one and a half) tablets (300 mg total) by mouth 2 (two) times a day . 90 tablet 1 10/17/2024 Active Start: 07-10-2023 End: 10-17-2024 take 1 tablet by mouth once daily lamoTRIgine (LAMICTAL) 200 MG tablet Take 1 (one) tablet (200 mg total) by mouth daily . 90 tablet 1 10/13/2024 10/17/2024 Discontinued Start: 07-08-2023 End: 07-09-2023 take 200 mg by mouth once daily 200 mg, Oral, Daily, F irst dose on Thu07/08/23 at 0900 Start: 05-20-2023 End: 07-09-2023 lamoTRIgine (LAMICTAL) 100 M G tablet 50 mg (half tab) daily weeks 1 and 2, 100 mg (one tab) daily weeks 3 and 4, 200 mg thereafter . 60 tablet 11 05/20/2023 07/09/2023 Discontinued (Stop Taking at Discharge) levocetirizine dihydrochloride 5 mg oral tablet (20 sources) Histamine-1 Receptor Antagonist End: 01-16-2020 take 1 tablet by mouth once daily in the evening levocetirizine (XYZAL) 5 MG tablet Take 5 mg by mouth every evening . 0 01/16/2020 Discontinued lidocaine 0.04 mg/mg medicated patch (20 sources) Antiarrhythmic, Amide Local Anesthetic Start: 10-16-2021 End: 12-16-2021 apply 1 dose transdermal route once daily lidocaine 4 % patch Place 1 (one) patch on the skin daily Use on left hip Remove & Discard patch within 12 hours . 30 patch 0 10/16/2021 12/16/2021 Discontinued (Patient's Request) Start: 10-21-2017 End: 10-21-2018 apply 1 dose transdermal route once daily, then apply 1 dose transdermal route every twelve hours lidocaine (LIDODERM) 5 % patch Indications: Iliocostal friction syndrome Place 1 (one) patch on the skin daily Remove & Discard patch within 12 hours or as directed by . 30 patch 0 10/21/2017 06/30/2018 Discontinued End: 01-27-2017 lidocaine 5 % Gel Apply 5 % topically 2 (two) times a day as needed. 01/27/2017 Discontinued losartan potassium 50 mg oral tablet (20 sources) Angiotensin 2 Receptor Fransisca Start: 09-16-2022 End: 09-23-2025 take 50 mg by mouth once daily 50 mg, Oral, Daily, First dose on Nae 11/03/24 at 0900 Start: 09-03-2020 End: 01-08-2023 take 1 tablet by mouth once daily losartan (Cozaar) 100 MG tablet Indications: Essential hypertension Take 1 (one) tablet (100 mg total) by mouth daily . 90 tablet 3 01/08/2022 09/16/2022 Discontinued Start: 07-25-2020 End: 07-25-2021 take 1 tablet by mouth once daily losartan (Cozaar) 50 MG tablet Indications: Essential hypertension Take 1 (one) tablet (50 mg total) by mouth daily . 90 tablet 3 07/25/2020 09/03/2020 Discontinued (Reorder) Start: 07-25-2020 Losartan Potas sium 50 MG Oral Tablet Quantity: 90 Refills: 0 Ordered: 25-Jul-2020 DO Start : 25-Jul-2020 Complete Start: 12-14-2017 End: 08-25-2018 take 1 tablet by mouth once daily losartan (COZAAR) 50 MG tablet Indications: Essential hypertension Take 1 (one) tablet (50 mg total) by mouth daily. 30 tablet 11 12/14/2017 08/25/2018 Discontinued (Stop Taking at Discharge) Start: 06-09-2017 End: 03-23-2021 take 1 tablet by mouth once daily losartan (Cozaar) 25 MG tablet Take 1 (one) tablet (25 mg total) by mouth daily . 90 tablet 3 03/23/2020 07/25/2020 Discontinued (Reorder) Start: 08-01-2016 End: 06-09-2017 take 0.5 tablet by mouth once daily losartan (COZAAR) 100 MG tablet Take 0.5 tablets (50 mg total) by mouth daily. 90 tablet 3 08/01/2016 06/09/2017 Discontinued Comment on above: Take 100 mg by mouth once daily. 50 ml magnesium sulfate 40 mg/ml injection (1 source) Start: 11-09-2024 End: 11-09-2024 2 g, Intravenous, at 50 mL/hr, Once, On Thu11/09/24 at 1300, For 1 dose meclizine hydrochloride 25 mg oral tablet (20 sources) Antiemetic Start: 11-06-2024 End: 11-10-2024 take 25 mg by mouth three times daily 25 mg, Oral, 3 times daily, First dose (after last modification) on 11/06/24 at 1500 Start: 11-03-2024 End: 11-06-2024 take 12.5 mg by mouth three times daily 12.5 mg, Oral, 3 times daily, First dose (after last modification) on 11/05/24 at 1500 Start: 09-28-2024 End: 09-28-2024 meclizine (ANTIVERT) 25 MG c hewable tablet Chew and Swallow 1 (one) tablet (25 mg total) 3 (three) times a day as needed for nausea or dizziness . 270 tablet 1 09/28/2024 Active Start: 03-04-2023 End: 05-11-2023 take 1 tablet by mouth three times daily as needed for nausea meclizine (ANTIVERT) 25 mg tablet Take 1 (one) tablet (25 mg total) by mouth 3 (three) times a day as needed for nausea . 30 tablet 03/04/2023 05/11/2023 Discontinued (Patient's Request) melatonin 5 mg oral tablet (20 sources) Start: 11-03-2024 End: 11-10-2024 take 5 mg by mouth once daily 5 mg, Oral, Nightly, First dose on Thu11/03/24 at 0045 Start: 07-07-2023 End: 07-09-2023 take 3 mg by mouth once daily as needed for sleep 3 mg, Oral, Nightly PRN, Sleep, Starting on Thu07/07/23 at 2141 Start: 07-03-2022 take 5 mg by mouth at bedtime Melatonin Active 5 MG PO AT BEDTIME July 03, 2022 12:00am Start: 04-04-2022 End: 05-11-2023 melatonin Tab 5 mg melatonin 10 mg tablet Take by mouth. Active End: 01-27-2017 take 1 capsule by mouth once daily at bedtime Melatonin 5 mg cap Take 5 mg by mouth daily at bedtime. 0 Active Comment on above: Take 5 mg by mouth d aily at bedtime. methadone hydrochloride 5 mg oral tablet (20 sources) Opioid Agonist Start: 11-02-2024 End: 11-10-2024 7.5 mg, Oral, 2 times daily, First dose on Thu11/02/24 at 2230, Notify prescribing physician and hold methadone if Respiratory Rate less than 10, if POSS Sedation score of 3 or 4, or RASS of -3, -4 or -5 (non-ventilated patients). May cause QT interval prolongation. Verify patient has received Patient Med Guide for methadone., Indication for methadone: Chronic pain Start: 06-27-2024 End: 11-25-2024 methadone (DOLOPHINE) 5 MG t ablet Indications: Failed back surgical syndrome Take 1.5 (one and a half) tablets (7.5 mg total) by mouth 2 (two) times a day (Days supply per fill: 30) Start: 10/26/24. 90 tablet 10/26/2024 11/25/2024 Start: 05-25-2024 End: 06-24-2024 methadone (DOLOPHINE) 5 MG t ablet Indications: Failed back surgical syndrome Take 1.5 (one and a half) tablets (7.5 mg total) by mouth 2 (two) times a day (Days supply per fill: 30) Start: 05/25/24. 90 tablet 05/25/2024 06/24/2024 Active Start: 04-26-2024 End: 05-12-2024 methadone (DOLOPHINE) 5 MG t ablet Indications: Failed back surgical syndrome Take 1.5 (one and a half) tablets (7.5 mg total) by mouth 2 (two) times a day (Days supply per fill: 30) . 90 tablet 04/26/2024 05/12/2024 Discontinued (Reorder (Suppress CancelRx Message to Pharmacy)) Start: 01-12-2024 End: 04-13-2024 methadone (DOLOPHINE) 5 MG t ablet Take 1.5 (one and a half) tablets (7.5 mg total) by mouth 2 (two) times a day . 03/20/2024 04/13/2024 Discontinued Start: 04-22-2023 End: 01-05-2024 take 1 tablet by mouth twice daily methadone (DOLOPHINE) 5 MG tablet Indications: DDD (degenerative disc disease), lumbar Take 1 (one) tablet (5 mg total) by mouth 2 (two) times a day (Days supply per fill: 30) Start: 12/06/23. 60 tablet 12/06/2023 01/01/2024 Discontinued Start: 07-03-2022 take 5 mg by mouth twice daily Methadone Active 5 MG PO TWICE A DAY July 03, 2022 12:00am Start: 04-04-2022 End: 04-05-2022 10 mg, Oral, 2 times daily, First dose on Thu04/04/22 at 1015 Notify prescribing physician and hold methadone if Respiratory Rate less than 10, if POSS Sedation score of 3 or 4, or RASS of -3, -4 or -5 (non-ventilated patients). May cause QT interval prolongation. Verify patient has received Patient Med Guide for methadone. Indication for methadone: Chronic pain Start: 07-18-2021 Methadone HCl - 10 MG Oral Tablet Quantity: 60 Refills: 0 Ordered: 19-Jul-2021 DO Start : 18-Jul-2021 Active Start: 09-02-2020 End: 04-22-2023 take 2 tablets by mouth twice daily methadone (DOLOPHINE) 5 MG tablet Take 2 (two) tablets (10 mg total) by mouth 2 (two) times a day . 09/02/2020 04/22/2023 Discontinued Start: 09-02-2020 take 1 tablet by ray th twice daily methadone (DOLOPHINE) 5 MG tablet Take 5 mg by mouth 2 (two) times a day . 0 09/02/2020 Active Start: 08-08-2020 Methadone HCl - 5 MG Oral Tablet Quantity: 10 Refills: 0 Ordered: 08-Aug-2020 Start : 08-Aug-2020 Complete take 1 tablet by ray th twice daily methadone (Dolophine) 10 mg tablet Take 1 tablet (10 mg) by mouth 2 times a day. Active take 2 tablets by mo uth once daily in the morning, then take 3 tablets by mouth at bedtime methadone (Dolophine) 5 mg tablet Take 2 tablets (10 mg) by mouth once daily in the morning. And take 3 tablets at bedtime Active methylPREDNISolone 4 MG Oral Tablet Therapy Pack (3 sources) Start: 06-12-2020 methylPREDNISolone 4 MG Oral Tablet Therapy Pack TAKE 1 TABLET Other take medication as directed in the package Quantity: 1 Refills: 0 Ordered: 12-Jun-2020 Nena Cabrera DO Start : 12-Jun-2020 Active metoclopramide 5 mg oral tablet (1 source) Dopamine-2 Receptor Antagonist Start: 11-06-2024 End: 11-10-2024 take 5 mg by mouth four times daily before mealtime 5 mg, Oral, 4 times daily before meals and nightly, First dose on 11/06/24 at 1230 24 hr metoprolol succinate 50 mg extended release oral tablet (20 sources) beta-Adrenergi c Fransisca Start: 09-03-2020 End: 11-30-2024 take 1 tablet by mouth every twenty-four hours at bedtime metoprolol succinate (TOPROL-XL) 50 MG 24 hr tablet Indications: Essential hypertension , Acute myocardial infarction, unspecified IA type, unspecified artery (HCC) Take 1 (one) tablet (50 mg total) by mouth at bedtime . 90 tablet 3 12/01/2023 04/05/2024 Discontinued Start: 06-19-2020 End: 09-27-2020 metoprolol tartrate (LOPRESS OR) 25 MG tablet TAKE 1 TABLET TWICE A DAY 180 tablet 3 06/19/2020 09/27/2020 Discontinued Start: 08-23-2018 End: 07-14-2019 take 1 tablet by mouth twice daily metoprolol tartrate (LOPRESSOR) 25 MG tablet Take 1 (one) tablet (25 mg total) by mouth 2 (two) times a day . 180 tablet 3 06/14/2019 Active Start: 03-05-2018 End: 08-25-2018 metoprolol tartrate (LOPRESS OR) 100 MG tablet TAKE ONE-HALF (1/2) TABLET TWICE A DAY 180 tablet 3 03/05/2018 08/25/2018 Discontinued (Stop Taking at Discharge) Start: 12-10-2016 take 0.5 tablet by m outh twice daily metoprolol tartrate (LOPRESSOR) 100 MG tablet Take 0.5 (one-half) tablet (50 mg total) by mouth 2 (two) times a day. 180 tablet 3 12/10/2016 Active Start: 04-18-2016 End: 03-27-2020 take 1 tablet by mouth twice daily metoprolol tartrate (LOPRESSOR) 100 MG tablet Take 1 tablet (100 mg total) by mouth 2 (two) times a day. 180 tablet 3 04/18/2016 12/10/2016 Discontinued take 1 tablet by ray th once daily at bedtime metoprolol succinate XL (Toprol-XL) 50 mg 24 hr tablet Take 1 tablet (50 mg) by mouth once daily at bedtime. Active Lopressor 100 MG Oral Tablet Quantity: 0 Refills: 0 Ordered: 17-May-2014 DO Active miSOPROStol 0.1 mg oral tablet (6 sources) Prostaglandin E1 Analog Start: 12-04-2021 End: 04-05-2022 take 1 tablet by mouth three times daily miSOPROStoL (CYTOTEC) 100 MCG tablet Indications: Trigeminal neuralgia Take 1 (one) tablet (100 mcg total) by mouth 3 (three) times a day for 365 doses . 90 tablet 4 12/04/2021 01/08/2022 Discontinued (Patient's Request) montelukast 10 mg oral tablet (7 sources) Leukotriene Receptor Antagonist Start: 08-01-2016 End: 08-01-2017 take 1 tablet by mouth once montelukast (SINGULAIR) 10 mg tablet Indications: Non-seasonal allergic rhinitis, unspecified allergic rhinitis trigger Take 1 tablet (10 mg total) by mouth nightly. 30 tablet 11 08/01/2016 06/09/2017 Discontinued naloxone (NARCAN) injection 0.1 mg (2 sources) Start: 04-04-2022 End: 04-05-2022 naloxone (NARCAN) injection 0.1 mg Start: 08-23-2018 End: 08-25-2018 naloxone (NARCAN) injection 0.1 mg nitroglycerin 0.4 mg subling ual tablet (20 sources) Nitrate Vasodilator Start: 08-23-2018 End: 04-05-2025 nitroglycerin (N itrostat) 0.[address] 1 tablet under the tongue if needed every 5 minutes for bella... (REFER TO PRESCRIPTION NOTES). Active omeprazole 40 mg delayed release oral capsule (20 sources) Proton Pump Inhibitor Start: 12-17-2022 End: 03-23-2023 omeprazole (PriLOSEC) [address] capsule Indications: Gastroesophageal reflux disease without esophagitis TAKE 1 CAPSULE TWICE A DAY 180 capsule 0 12/17/2022 03/23/2023 Discontinued (Other) Start: 07-03-2022 take 40 mg by mouth twice daily Omeprazole Active 40 MG PO TWICE A DAY July 03, 2022 12:00am Start: 06-08-2022 End: 06-10-2023 take 1 capsule by mouth once daily omeprazole (PRILOSEC) 40 MG capsule Take 1 (one) capsule (40 mg total) by mouth daily . 90 capsule 03/12/2023 05/11/2023 Discontinued (Patient's Request) Start: 01-16-2022 take 1 capsule by mo ut twice daily Omeprazole 40 MG Oral Capsule Delayed Release Take 1 capsule twice daily Quantity: 180 Refills: 3 Ordered: 16-Jan-2022 Rick Zavala DO Start : 16-Jan-2022 Active Start: 10-27-2021 take 1 capsule by mo ut once daily omeprazole (PRILOSEC) 40 MG capsule Indications: Gastroesophageal reflux disease Take 1 (one) capsule (40 mg total) by mouth daily . 90 capsule 0 10/27/2021 Active Start: 03-06-2020 End: 10-25-2021 take 1 capsule by mouth once daily omeprazole (PRILOSEC) 40 MG capsule Indications: Gastroesophageal reflux disease Take 1 (one) capsule (40 mg total) by mouth daily . 90 capsule 3 01/01/2021 10/25/2021 Discontinued (Reorder) Start: 06-06-2018 take 1 capsule by [facility] once daily omeprazole (PRILOSEC) 40 MG capsule Indications: Gastroesophageal reflux disease, esophagitis presence not specified Take 1 (one) capsule (40 mg total) by mouth daily . 90 capsule 3 06/06/2018 Active Start: 09-12-2016 End: 09-12-2017 omeprazole (PRILOSEC) 40 MG capsule TAKE 1 CAPSULE DAILY 90 capsule 3 08/20/2017 Active 2 ml ondansetron 2 mg/ml injection (7 sources) Serotonin-3 Receptor Antagonist Start: 11-03-2024 End: 11-10-2024 take 4 mg intravenously every six hours as needed for nausea and vomiting 4 mg, Intravenous, Every 6 hours PRN, nausea, vomiting, Starting on Nae 11/03/24 at 1005 Start: 10-27-2024 End: 10-30-2024 take 1 tablet by mouth every eight hours as needed for nausea ondansetron (ZOFRAN-ODT) 8 MG disintegrating tablet Dissolve 1 (one) tablet (8 mg total) on top of tongue every 8 (eight) hours as needed for nausea . 10/27/2024 Active Start: 10-27-2024 End: 10-27-2024 4 mg, intravenous, Once, On Nae 10/27/24 at 1105, For 1 dose, When administering via IV Push, administer over 3-5 minutes. Start: 04-04-2022 End: 04-05-2022 take 4 mg intravenously every six hours as needed for nausea and vomiting ondansetron (ZOFRAN) injection 4 mg Start: 08-23-2018 End: 08-25-2018 take 4 mg intravenous route every six hours as needed 4 mg, Intravenous, Every 6 hours PRN, nausea, vomiting, Starting 08/23/18 at 0836 ondansetron (ZOFRAN-ODT) disintegrating tablet 4 mg (1 source) Start: 07-07-2023 End: 07-09-2023 take 1 tablet by mouth every six hours as needed for nausea and vomiting ondansetron (ZOFRAN-ODT) disintegrating tablet 4 mg pantoprazole 40 mg delayed release oral tablet (20 sources) Proton Pump Inhibitor Start: 11-03-2024 End: 11-10-2024 take 40 mg by mouth once daily 40 mg, Oral, Daily, First dose on Thu11/03/24 at 0900, DO NOT CRUSH OR CHEW. Start: 03-23-2023 End: 03-22-2024 take 1 tablet by mouth once daily pantoprazole (PROTONIX) 40 MG tablet Take 1 (one) tablet (40 mg total) by mouth daily . 90 tablet 1 01/08/2024 Raised Toilet Seat (1 source) Start: 04-11-2020 Raised Toilet Seat USE DIRECTED. Quantity: 1 Refills: 0 Nena Cabrera DO Start : 11-Apr-2020 Active 72 hr scopolamine 0.0139 mg/hr transdermal system (1 source) Anticholinergic Start: 11-04-2024 End: 11-07-2024 apply 1 dose transdermal route once 1 patch, Transdermal, Once, On Thu11/04/24 at 1300, For 1 dose sennosides, chcf 8.6 mg oral tablet (1 source) Start: 07-07-2023 End: 07-09-2023 take 1 tablet by mouth twice daily as needed for constipation 8.6 mg (1 tablet), Oral, 2 times daily PRN, constipation, Starting on Thu07/07/23 at 2141 1000 ml sodium chloride 9 mg/ml injection (11 sources) Start: 11-04-2024 End: 11-05-2024 take 75 mL intravenously every hour 75 mL/hr, Intravenous, Continuous, Starting on Thu11/04/24 at 1300, For 24 hours Start: 11-02-2024 End: 11-10-2024 sodium chloride (PF) (NS) fl ush 5 mL Start: 10-27-2024 End: 10-28-2024 take 150 mL intravenously every hour 150 mL/hr, intravenous, Continuous, Starting on Thu10/27/24 at 1105, For 1 day Start: 07-07-2023 End: 07-09-2023 sodium chloride (PF) (NS) fl ush 5 mL Start: 04-04-2022 End: 04-05-2022 sodium chloride 0.9% (NS) Start: 04-04-2022 End: 04-05-2022 sodium chloride (PF) (NS) fl ush 5 mL Start: 04-07-2020 take 1 tablet by mouth twice d aily Sodium Chloride 1 GM Oral Tablet TAKE 1 TABLET BY MOUTH TWICE DAILY FOR 10 DAYS Quantity: 20 Refills: 0 Ordered: 07-Apr-2020 DO Start : 07-Apr-2020 Complete Start: 08-23-2018 End: 08-23-2018 250 mL, Intravenous, at 937. 5 mL/hr, As needed, IF systolic pressure is less than 90 mmHg, IMMEDIATELY notify physician, place patient in Trendelenberg, and give 0.9% NaCl bolus, Starting 08/23/18 at 0836, For 1 dose Start: 08-23-2018 End: 08-25-2018 sodium chloride (PF) (NS) fl ush 5 mL Start: 08-23-2018 End: 08-23-2018 sodium chloride 0.9% (NS) spironolactone 25 mg oral tablet (20 sources) Aldosterone Antagonist Start: 03-27-2023 End: 12-23-2024 take 1 tablet by mouth once daily spironolactone (ALDACTONE) 25 MG tablet Indications: Mild left ventricular systolic dysfunction , Hypertension, unspecified type Take 1 (one) tablet (25 mg total) by mouth daily . 90 tablet 3 12/24/2023 06/06/2024 Discontinued ticagrelor 90 mg oral tablet (20 sources) Start: 08-23-2018 End: 02-12-2021 Brilinta 90 mg Tab tablet TAKE 1 TABLET TWICE A DAY 180 tablet 3 07/26/2020 02/12/2021 Discontinued 250 ml tirofiban 0.05 mg/ml injection (1 source) Platelet Aggregation Inhibitor Start: 08-23-2018 End: 08-23-2018 tirofiban (AGGRASTAT) 12.5 mg (50 mcg/mL) in 250 mL sodium chloride (NS) bag 24 hr tolterodine tartrate 2 mg extended release oral capsule (1 source) Cholinergic Muscarinic Antagonist Start: 04-04-2022 End: 04-05-2022 take 2 mg by mouth once daily 2 mg, Oral, Daily, First dose on Thu04/04/22 at 1130 DO NOT CRUSH OR CHEW. topiramate 50 mg oral tablet (20 sources) Anti-epileptic Agent Start: 06-23-2018 End: 01-16-2020 topiramate (TOPAMAX) 50 MG tablet Indications: Trigeminal neuralgia of left side of face Take 2 tablets in the morning , 1 In the evening . 270 tablet 3 06/23/2018 01/18/2019 Discontinued (Error) Start: 10-12-2017 End: 06-23-2018 topiramate (TOPAMAX) 25 MG t ablet Indications: Trigeminal neuralgia of left side of face Take 2 tablets in the morning , 1 at noon, 1 at bedtime . 270 tablet 3 06/23/2018 06/23/2018 Discontinued Start: 04-04-2017 End: 10-12-2017 topiramate (TOPAMAX) 25 MG t ablet TAKE 1 TABLET TWICE A DAY 180 tablet 3 04/04/2017 10/12/2017 Discontinued Start: 04-18-2016 take 1 tablet by ray th twice daily topiramate (TOPAMAX) 25 MG tablet Take 1 tablet (25 mg total) by mouth 2 (two) times a day. 180 tablet 3 04/18/2016 Active topiramate (TOPA MAX) 50 MG tablet 75 mg every morning. 50 mg every evening. 75 mg at bedtime . 0 Active traZODone hydrochloride 50 mg oral tablet (1 source) Serotonin Reuptake Inhibitor Start: 08-23-2018 End: 08-25-2018 traZODone (DESYREL) tablet 25 mg UNIV COMP RX: AMITRIPTYLINE 2%, BACLOFEN 2%, GABAPENTIN 5%, LIDOCAINE 5% EMOLLIENT CREAM (20 sources) Start: 04-12-2024 End: 07-18-2024 UNIV COMP RX: AMITRIPTYLINE 2%, BACLOFEN 2%, GABAPENTIN 5%, LIDOCAINE 5% EMOLLIENT CREAM Indications: Degenerative disc disease, lumbar Apply 0.5 g topically 3 (three) times a day as needed . 30 g 1 04/12/2024 07/18/2024 Discontinued (Patient's Request) Start: 04-12-2024 End: 04-12-2025 UNIV COMP RX: AMITRIPTYLINE 2%, BACLOFEN 2%, GABAPENTIN 5%, LIDOCAINE 5% EMOLLIENT CREAM Indications: Degenerative disc disease, lumbar Apply 0.5 g topically 3 (three) times a day as needed . 30 g 1 04/12/2024 04/12/2025 Active Start: 08-10-2023 End: 04-12-2024 UNIV COMP RX: AMITRIPTYLINE 2%, BACLOFEN 2%, GABAPENTIN 5%, LIDOCAINE 5% EMOLLIENT CREAM Indications: Degenerative disc disease, lumbar Apply 0.5 g topically 3 (three) times a day as needed . 30 g 1 08/10/2023 04/12/2024 Discontinued (Reorder (Suppress CancelRx Message to Pharmacy)) Start: 08-10-2023 End: 08-09-2024 UNIV COMP RX: AMITRIPTYLINE 2%, BACLOFEN 2%, GABAPENTIN 5%, LIDOCAINE 5% EMOLLIENT CREAM Indications: Degenerative disc disease, lumbar Apply 0.5 g topically 3 (three) times a day as needed . 30 g 1 08/10/2023 08/09/2024 Active Start: 10-24-2022 End: 08-08-2023 UNIV COMP RX: AMITRIPTYLINE 2%, BACLOFEN 2%, GABAPENTIN 5%, LIDOCAINE 5% EMOLLIENT CREAM Apply 0.5 g topically 3 (three) times a day as needed . 30 g 1 10/24/2022 08/08/2023 Discontinued (Reorder (Suppress CancelRx Message to Pharmacy)) Start: 10-24-2022 End: 10-24-2023 UNIV COMP RX: AMITRIPTYLINE 2%, BACLOFEN 2%, GABAPENTIN 5%, LIDOCAINE 5% EMOLLIENT CREAM Apply 0.5 g topically 3 (three) times a day as needed . 30 g 1 10/24/2022 10/24/2023 Start: 10-24-2022 End: 10-24-2023 UNIV COMP RX: AMITRIPTYLINE 2%, BACLOFEN 2%, GABAPENTIN 5%, LIDOCAINE 5% EMOLLIENT CREAM Apply 0.5 g topically 3 (three) times a day as needed . 30 g 1 10/24/2022 10/24/2023 Suspended Start: 10-24-2022 End: 10-24-2023 UNIV COMP RX: AMITRIPTYLINE 2%, BACLOFEN 2%, GABAPENTIN 5%, LIDOCAINE 5% EMOLLIENT CREAM Apply 0.5 g topically 3 (three) times a day as needed . 30 g 1 10/24/2022 10/24/2023 Active Problems Active Problems Problem Classification Problem Date Documented Da te Episodic/Chronic Abdominal pain (20 sources) Inguinal pain; Translations: [Abdominal pain] Onset: 8 10-21-2017 Episodic Acute myocardial infarction (20 sources) Acute myocardial infarction; Translations: [ST elevation (STEMI) myocardial infarction involving other coronary artery of inferior wall] Onset: 9 08-23-2018 Chronic Adjustment disorders (1 source) Grief finding; Translations: [Adjustment disorder with depressed mood] Onset: 4 09-13-2013 Chronic Allergic reactions (1 source) Inflammatory dermatosis; Translations: [Dermatitis, unspecified] Episodic Anxiety disorders (20 sources) Anxiety; Translations: [Mixed anxiety and depressive disorder] Onset: 4 11-02-2017 Chronic Blindness and vision defects (2 sources) Other visual disturbances; Translations: [Other visual disturbances] Onset: 5 Episodic Cancer; other and unspecified primary (3 sources) History of benign carcinoid neoplasm; Translations: [Personal history of other specified diseases] Onset: 3 03-23-2023 Episodic Cancer; other and unspecified primary (2 sources) Personal history of benign carcinoid tumor; Translations: [Personal history of benign carcinoid tumor] Onset: 3 Episodic Chronic kidney disease (20 sources) Chronic kidney disease stage 3; Translations: [Chronic kidney disease (CKD), stage III (moderate)] Onset: 7 Resolved: 4 09-12-2016 Chronic Chronic obstructive pulmonary disease and bronchiectasis (20 sources) Chronic bronchitis; Translations: [Simple chronic bronchitis] Onset: 8 09-08-2017 Chronic Coagulation and hemorrhagic disorders (2 sources) Blood coagulation disorder; Translations: [Coagulation defect, unspecified] 05-11-2023 Chronic Coagulation and hemorrhagic disorders (1 source) Blood coagulation disorder; Translations: [Hemorrhagic condition, unspecified] 10-10-2013 Episodic Conditions associated with dizziness or vertigo (20 sources) Dizziness; Translations: [Dizziness and giddiness] Onset: 1 Episodic Congestive heart failure; nonhypertensive (17 sources) Chronic systolic heart failure; Translations: [Chronic systolic (congestive) heart failure] Onset: 4 Chronic Coronary atherosclerosis and other heart disease (20 sources) Coronary arteriosclerosis; Translations: [Coronary arteriosclerosis in [place] artery] Onset: 9 09-16-2018 Chronic Coronary atherosclerosis and other heart disease (2 sources) Patient post percutaneous transluminal coronary angioplasty; Translations: [S/P PTCA (percutaneous transluminal coronary angioplasty)] Episodic Deficiency and other anemia (1 source) Anemia; Translations: [Anemia, unspecified] 07-18-2013 Episodic Delirium, dementia, and amnestic and other cognitive disorders (4 sources) Dementia; Translations: [Unspecified dementia without behavioral disturbance] Onset: 5 07-19-2024 Chronic Diabetes mellitus with complications (1 source) Type 2 diabetes mellitus; Translations: [Type 2 diabetes mellitus with diabetic chronic kidney disease] Chronic Diabetes mellitus without complication (7 sources) Prediabetes; Translations: [Other abnormal glucose] 10-24-2022 Episodic Disorders of lipid metabolism (20 sources) Hyperlipidemia; Translations: [Mixed hyperlipidemia] Onset: 9 09-10-2018 Chronic E Codes: Fall (20 sources) Fall; Translations: [Unspecified fall, initial encounter] Onset: 5 04-05-2024 Episodic Esophageal disorders (20 sources) Gastroesophageal reflux disease; 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] Onset: 7 04-03-2016 Chronic Essential hypertension (20 sources) Hypertensive disorder; Translations: [Essential hypertension] Onset: 7 Resolved: 9 04-03-2016 Chronic Fluid and electrolyte disorders (20 sources) Hyponatremia; Translations: [Hypo-osmolality and hyponatremia] Onset: 3 Episodic Genitourinary symptoms and ill-defined conditions (20 sources) Mixed urinary incontinence; Translations: [Mixed incontinence] Onset: 7 04-13-2016 Chronic Genitourinary symptoms and ill-defined conditions (20 sources) Increased frequency of urination; Translations: [Frequency of micturition] Onset: 2 Episodic Malaise and fatigue (4 sources) Weakness; Translations: [Asthenia] Onset: 5 Episodic Miscellaneous mental health disorders (2 sources) Adjustment insomnia; Translations: [Adjustment insomnia] Onset: 8 Episodic Mood disorders (20 sources) Depressive disorder; Translations: [Major depressive disorder, single episode, unspecified] Onset: 1 03-15-2020 Chronic Nausea and vomiting (4 sources) Nausea and vomiting; Translations: [Nausea with vomiting, unspecified] Onset: 5 10-27-2024 Episodic Neoplasms of unspecified nature or uncertain behavior (20 sources) Carcinoid tumor of small intestine; Translations: [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, unspecified portion] Onset: 1 07-25-2020 Episodic Nonspecific chest pain (20 sources) Chest pain; Translations: [Chest pain, unspecified] Onset: 3 Episodic Nutritional deficiencies (20 sources) Vitamin D deficiency; Translations: [Vitamin D deficiency, unspecified] Onset: 6 04-13-2016 Chronic Open wounds of extremities (1 source) Tear of skin; Translations: [Laceration without foreign body of left elbow, subsequent encounter] 10-13-2023 Episodic Osteoarthritis (1 source) Arthritis; Translations: [Unspecified osteoarthritis, unspecified site] 07-18-2013 Chronic Osteoporosis (20 sources) Osteoporosis; Translations: [Age-related osteoporosis without current pathological fracture] Onset: 7 04-13-2016 Chronic Other acquired deformities (20 sources) Scoliosis deformity of spine; Translations: [Scoliosis, unspecified] Onset: 0 07-25-2020 Chronic Other acquired deformities (1 source) Scoliosis, unspecified; Translations: [Scoliosis, unspecified] Onset: 1 Chronic Other aftercare (2 sources) Patient encounter status; Translations: [Encounter for follow-up examination after completed treatment for conditions other than malignant neoplasm] 05-11-2023 Episodic Other and ill-defined heart disease (20 sources) Mild left ventricular systolic dysfunction; Translations: [Other ill-defined heart diseases] Onset: 4 03-27-2023 Chronic Other and ill-defined heart disease (2 sources) Other ill-defined heart diseases; Translations: [Other ill-defined heart diseases] Onset: 4 Chronic Other and unspecified benign neoplasm (20 sources) Adenoma of duodenum; Translations: [Benign neoplasm of duodenum] Onset: 1 07-25-2020 Episodic Other and unspecified benign neoplasm (6 sources) Benign carcinoid tumor of duodenum; Translations: [Benign carcinoid tumor of the duodenum] 02-24-2023 Episodic Other and unspecified benign neoplasm (20 sources) Neoplasm of small intestine; Translations: [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, unspecified portion] Onset: 1 07-25-2020 Episodic Other and unspecified benign neoplasm (2 sources) 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, unspecified portion; Translations: [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, unspecified portion] Onset: 1 Episodic Other and unspecified benign neoplasm (2 sources) Benign neoplasm of duodenum; Translations: [Benign neoplasm of duodenum] Onset: 1 Episodic Other circulatory disease (3 sources) Disorder of coronary artery; Translations: [Coronary artery disease without angina pectoris, unspecified vessel or lesion type, unspecified whether soboba or transplanted heart] Chronic Other connective tissue disease (20 sources) History of repair of hip joint; Translations: [Presence of right artificial hip joint] Onset: 1 04-24-2020 Chronic Other connective tissue disease (2 sources) Presence of right artificial hip joint; Translations: [Presence of right artificial hip joint] Onset: 1 Chronic Other connective tissue disease (20 sources) Musculoskeletal pain; Translations: [Other specified soft tissue disorders] Onset: 8 10-21-2017 Episodic Other connective tissue disease (6 sources) H/O: musculoskeletal disease; Translations: [Personal history of other musculoskeletal disorders] Episodic Other connective tissue disease (1 source) Fibromyalgia; Translations: [Fibromyalgia] 07-18-2013 Episodic Other connective tissue disease (20 sources) Swelling of lower limb; Translations: [Other specified soft tissue disorders] Onset: 4 05-11-2023 Episodic Other connective tissue disease (2 sources) Other specified soft tissue disorders; Translations: [Other specified soft tissue disorders] Onset: 4 Episodic Other female genital disorders (1 source) Vulvovaginal discomfort 11-10-2024 Episodic Other fractures (9 sources) Fracture of bone of hip region; Translations: [Closed fracture of unspecified part of neck of femur] Episodic Other fractures (20 sources) Fracture of multiple pubic rami; Translations: [Other specified fracture of unspecified pubis, initial encounter for closed fracture] Onset: 1 01-01-2021 Episodic Other fractures (2 sources) Multiple fractures of ribs, unspecified side, initial encounter for closed fracture; Translations: [Multiple fractures of ribs, unspecified side, initial encounter for closed fracture] Onset: 1 Episodic Other fractures (2 sources) Other specified fracture of unspecified pubis, initial encounter for closed fracture; Translations: [Other specified fracture of unspecified pubis, initial encounter for closed fracture] Onset: 1 Episodic Other fractures (2 sources) Closed fracture of multiple ribs; Translations: [Multiple fractures of ribs, unspecified side, initial encounter for closed fracture] 11-10-2024 Episodic Other gastrointestinal disorders (8 sources) Personal history of other diseases of the digestive system; Translations: [History of gastroesophageal reflux disease] Episodic Other gastrointestinal disorders (4 sources) History of irritable bowel syndrome; Translations: [Personal history of other diseases of digestive system] Episodic Other injuries and conditions due to external causes (20 sources) At low risk for fall; Translations: [History of falling] Onset: 8 08-03-2017 Episodic Other injuries and conditions due to external causes (1 source) H/O: hip fracture; Translations: [S/P right hip fracture] Episodic Other injuries and conditions due to external causes (20 sources) At moderate risk for fall; Translations: [History of falling] Onset: 8 Episodic Other injuries and conditions due to external causes (2 sources) At high risk for fall; Translations: [History of falling] 07-18-2024 Episodic Other injuries and conditions due to external causes (4 sources) History of falling; Translations: [History of falling] Onset: 2 Episodic Other liver diseases (1 source) Increased creatine kinase level; Translations: [Abnormal levels of other serum enzymes] 04-11-2023 Episodic Other nervous system disorders (4 sources) Other chronic pain; Translations: [Other chronic pain] Onset: 1 Chronic Other nervous system disorders (20 sources) Trigeminal neuralgia; Translations: [Trigeminal neuralgia] Onset: 7 04-13-2016 Episodic Other nervous system disorders (1 source) Ataxia; Translations: [Ataxia, unspecified] 07-07-2023 Episodic Other non-epithelial cancer of skin (1 source) Malignant neoplasm of skin; Translations: [Unspecified malignant neoplasm of skin, unspecified] 07-18-2013 Episodic Other non-traumatic joint disorders (3 sources) Shoulder pain; Translations: [Pain in joint, shoulder region] Episodic Other non-traumatic joint disorders (20 sources) Hip pain; Translations: [Pain in left hip] Onset: 2 Episodic Other non-traumatic joint disorders (20 sources) Swollen ankle region; Translations: [Effusion, right ankle] Onset: 2 Episodic Other non-traumatic joint disorders (2 sources) Effusion, right ankle; Translations: [Effusion, right ankle] Onset: 2 Episodic Other non-traumatic joint disorders (2 sources) Pain in left hip; Translations: [Pain in left hip] Onset: 2 Episodic Other nutritional; endocrine; and metabolic disorders (6 sources) H/O: raised blood lipids; Translations: [Personal history of other endocrine, metabolic, and immunity disorders] Episodic Other nutritional; endocrine; and metabolic disorders (6 sources) H/O: obesity; Translations: [Personal history of other endocrine, metabolic, and immunity disorders] Episodic Other screening for suspected conditions (not mental disorders or infectious disease) (3 sources) Radiology result abnormal; Translations: [Abnormal findings on diagnostic imaging of other specified body structures] Onset: 5 07-18-2024 Chronic Other skin disorders (20 sources) Actinic keratosis; Translations: [Actinic keratosis] Onset: 9 03-22-2018 Episodic Other upper respiratory disease (20 sources) Allergic rhinitis; Translations: [Allergic rhinitis, unspecified] Onset: 7 04-13-2016 Chronic Other upper respiratory disease (2 sources) Other allergic rhinitis; Translations: [Other allergic rhinitis] Onset: 7 Chronic Other upper respiratory infections (20 sources) Acute sinusitis; Translations: [Upper respiratory infection] Onset: 7 Resolved: 8 07-21-2016 Episodic Residual codes; unclassified (20 sources) Obstructive sleep apnea syndrome; Translations: [Obstructive sleep apnea (adult) (pediatric)] Onset: 1 07-18-2013 Chronic Residual codes; unclassified (1 source) Sleep apnea; Translations: [Sleep apnea, unspecified] 07-18-2013 Chronic Residual codes; unclassified (2 sources) Obstructive sleep apnea (adult) (pediatric); Translations: [Obstructive sleep apnea (adult) (pediatric)] Onset: 1 Chronic Residual codes; unclassified (4 sources) History of operative procedure on hip; Translations: [Other postprocedural status] Episodic Residual codes; unclassified (2 sources) Uncontrolled pain; Translations: [Pain, unspecified] Episodic Residual codes; unclassified (1 source) History of repair of hip joint; Translations: [Other postprocedural status] Episodic Residual codes; unclassified (3 sources) Cardiovascular event risk; Translations: [Other specified personal risk factors, not elsewhere classified] 05-12-2024 Episodic Spondylosis; intervertebral disc disorders; other back problems (20 sources) Degeneration of lumbar intervertebral disc; Translations: [Degeneration of intervertebral disc] Onset: 1 03-15-2020 Chronic Spondylosis; intervertebral disc disorders; other back problems (20 sources) Sciatica; Translations: [Sacroiliac joint pain] Onset: 4 Resolved: 3 03-15-2020 Episodic Thyroid disorders (20 sources) Thyroid nodule; Translations: [Nontoxic single thyroid nodule] Onset: 5 04-05-2024 Chronic Unclassified (20 sources) Insomnia; Translations: [Needs influenza immunization] Onset: 8 06-09-2017 Episodic Unclassified (20 sources) Trigeminal neuralgia of left side of face; Translations: [Trigeminal neuralgia of left side of face] Onset: 7 04-13-2016 Unclassified (1 source) ERRONEOUS ENCOUNTER--DISREGARD Unclassified (2 sources) [facility] Onset: 4 Unclassified (1 source) Other intervertebral disc degeneration, 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 mention of lumbar back pain or lower extremity pain; Translations: [Other intervertebral disc degeneration, 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 mention of lumbar back pain or lower extremity pain] Onset: 2 Urinary tract infections (1 source) Interstitial cystitis (chronic) without hematuria; Translations: [Interstitial cystitis (chronic) without hematuria] Onset: 4 Chronic Urinary tract infections (20 sources) Recurrent urinary tract infection; Translations: [Urinary tract infectious disease] Onset: 8 Resolved: 3 09-08-2017 Episodic Past or Other Problems Problem Classification Problem Date Documented Da te Episodic/Chronic Cancer; other and unspecified primary (2 sources) H/O: neoplasm; Translations: [Personal history of benign carcinoid tumor] Onset: 3 01-14-2023 Episodic Diabetes mellitus without complication (20 sources) Diabetes mellitus; Translations: [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] Onset: 5 Resolved: 3 08-23-2018 Chronic E Codes: Fall (1 source) Fall 11-10-2024 Fracture of neck of femur (hip) (3 sources) Closed fracture of neck of femur; Translations: [Fracture of unspecified part of neck of unspecified femur, initial encounter for closed fracture] Onset: 3 01-14-2023 Episodic Gastritis and duodenitis (8 sources) Duodenitis; Translations: [Duodenitis without bleeding] Onset: 9 01-04-2009 Episodic Immunizations and screening for infectious disease (2 sources) Encounter for immunization; Translations: [Encounter for immunization] Onset: 4 Episodic Mood disorders (20 sources) Mood disorders Onset: 4 Resolved: 5 05-11-2023 Other and unspecified benign neoplasm (1 source) Benign neoplasm of colon; Translations: [Benign neoplasm of colon, unspecified] Onset: 9 01-04-2009 Episodic Other and unspecified benign neoplasm (2 sources) Benign carcinoid tumor of the duodenum; Translations: [Benign carcinoid tumor of the duodenum] Onset: 1 Episodic Other connective tissue disease (20 sources) Neuropathy; Translations: [Neuralgia, neuritis, and radiculitis, unspecified] Onset: 1 07-18-2013 Episodic Other connective tissue disease (1 source) Synovial cyst of lumbar spine; Translations: [Other bursal cyst, other site] Onset: 4 07-18-2013 Episodic Other connective tissue disease (1 source) H/O Spinal surgery; Translations: [Arthrodesis status] Onset: 4 01-31-2014 Episodic Other female genital disorders (2 sources) Other specified noninflammatory disorders of vagina; Translations: [Other specified noninflammatory disorders of vagina] Onset: 4 Episodic Other fractures (20 sources) Fracture of multiple ribs ; Translations: [Multiple fractures of ribs, unspecified side, initial encounter for closed fracture] Onset: 1 01-01-2021 Episodic Other fractures (6 sources) Fracture of pelvis; Translations: [Closed unspecified fracture of pelvis] Onset: 3 01-14-2023 Episodic Other fractures (2 sources) Multiple fractures of ribs, right side, initial encounter for closed fracture; Translations: [Multiple fractures of ribs, right side, initial encounter for closed fracture] Onset: 1 Episodic Other gastrointestinal disorders (1 source) Diarrhea; Translations: [Diarrhea, unspecified] Onset: 9 01-04-2009 Episodic Other lower respiratory disease (20 sources) Cough; Translations: [Cough] Onset: 7 Resolved: 9 04-03-2016 Episodic Other nervous system disorders (20 sources) Trigeminal neuralgia; Translations: [Trigeminal neuralgia] Onset: 3 Episodic Other screening for suspected conditions (not mental disorders or infectious disease) (6 sources) Imaging of gastrointestinal tract abnormal; Translations: [Abnormal findings on diagnostic imaging of other parts of digestive tract] Onset: 9 01-04-2009 Episodic Other skin disorders (1 source) Actinic keratosis; Translations: [Actinic keratosis] Onset: 9 Episodic Residual codes; unclassified (2 sources) Other specified personal risk factors, not elsewhere classified; Translations: [Other specified personal risk factors, not elsewhere classified] Onset: 5 Episodic Superficial injury; contusion (2 sources) Contusion of other part of head, initial encounter; Translations: [Contusion of other part of head, initial encounter] Onset: 5 Episodic Unclassified (5 sources) History of repair of hip joint; Translations: [Status post right hip replacement] Onset: 1 04-24-2020 Unclassified (20 sources) Onset: 4 Resolved: 5 05-11-2023 Unclassified (1 source) Other intervertebral disc degeneration, 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 2 mg/dL [facility] Chloride [Moles/Vol] 100 mmol/L 98 - 108 mmol/L [facility] Creatinine [Mass/Vol] 1.24 mg/dL High 0.60 - 1.20 mg/dL [facility] GFR/1.73 sq M.predicted CKD-EPI (S/P/Bld) [Vol rate/Area] 42 Low - PINF [facility] Comment on above: Estimated GFR was ca lculated using the 2020 CKD-EPI creatinine equation. Glucose [Mass/Vol] 107 mg/dL High 65 - 99 mg/dL [facility] HCO3 [Moles/Vol] 26 mmol/L 21 - 32 mmol/L [facility] Interpretation and review of laboratory results Abnormal [facility] Potassium [Moles/Vol] 4.4 mmol/L 3.5 - 5.1 mmol/L [facility] Sodium [Moles/Vol] 136 mmol/L 135 - 145 mmol/L [facility] Urea nitrogen [Mass/Vol] 25 mg/dL 8 - 25 mg/dL [facility] Urea nitrogen/Creatinine [Mass ratio] 20.2 mg/mg High 10.0 - 20.0 [facility] has implemented the eGFR calculation approach that does not have a coefficient for race that conforms to the NKF-ASN Task Force Recommendations. [facility] Magnesium Levelon 11-10-2024 Magnesium [Mass/Vol] 2.1 mg/dL 1.6 - 2.4 mg/dL [facility] Magnesium [Mass/Vol]on 09-04 -2025 Interpretation and review of laboratory results Normal [facility] No Panel InformationOrdered By: Raciel Rodarte on 11-10-2024 [facility] BASIC METABOLIC PANELon Anion gap [Moles/Vol] 16 mmol/L Normal 10-20 [facility] Comment on above: Order Comment: [facility] has implemented the eGFR calculation approach that does not have a coefficient for race that conforms to the NKF-ASN Task Force Recommendations. Performed By: #### L [id number] #### [facility] [address] [address] Bhupendra Márquez M.D. [id number] Calcium [Mass/Vol] 9.5 mg/dL Normal 8.4-10.2 [facility] Comment on above: Order Comment: [facility] has implemented the eGFR calculation approach that does not have a coefficient for race that conforms to the NKF-ASN Task Force Recommendations. Performed By: #### L [id number] #### [facility] [address] [address] Bhupendra Márquez M.D. [id number] Chloride [Moles/Vol] 101 mmol/L Normal 98-108 [facility] Comment on above: Order Comment: [facility] has implemented the eGFR calculation approach that does not have a coefficient for race that conforms to the NKF-ASN Task Force Recommendations. Performed By: #### L [id number] #### [facility] [address] [place], [place] [address] Bhupendra Márquez M.D. [id number] Creatinine [Mass/Vol] 1.05 mg/dL Normal 0.60-1.20 [facility] Comment on above: Order Comment: [facility] has implemented the eGFR calculation approach that does not have a coefficient for race that conforms to the NKF-ASN Task Force Recommendations. Performed By: #### L [id number] #### [facility] [address] [place], [place] [address] Bhupendra Márquez M.D. [id number] EGFR 51 mL/min/1.73 m2 Low >=60 [facility] Comment on above: Order Comment: [facility] has implemented the eGFR calculation approach that does not have a coefficient for race that conforms to the NKF-ASN Task Force Recommendations. Result Comment: Danielle mated GFR was calculated using the 2020 CKD-EPI creatinine equation. Performed By: #### L [id number] #### [facility] [address] [place], [place] [address] Bhupendra Márquez M.D. [id number] Glucose [Mass/Vol] 112 mg/dL High 65-99 [facility] Comment on above: Order Comment: [facility] has implemented the eGFR calculation approach that does not have a coefficient for race that conforms to the NKF-ASN Task Force Recommendations. Performed By: #### L [id number] #### [facility] [address] [address] Bhupendra Márquez M.D. [id number] HCO3 (Bld) [Moles/Vol] 26 mmol/L Normal 21-32 [facility] Comment on above: Order Comment: [facility] has implemented the eGFR calculation approach that does not have a coefficient for race that conforms to the NKF-ASN Task Force Recommendations. Performed By: #### L [id number] #### [facility] [address] [address] Bhupendra Márquez M.D. [id number] Potassium [Moles/Vol] 4.1 mmol/L Normal 3.5-5.1 [facility] Comment on above: Order Comment: [facility] has implemented the eGFR calculation approach that does not have a coefficient for race that conforms to the NKF-ASN Task Force Recommendations. Performed By: #### L [id number] #### [facility] [address] [address] Bhupendra Márquez M.D. [id number] Sodium [Moles/Vol] 139 mmol/L Normal 135-145 [facility] Comment on above: Order Comment: [facility] has implemented the eGFR calculation approach that does not have a coefficient for race that conforms to the NKF-ASN Task Force Recommendations. Performed By: #### L [id number] #### [facility] [address] [place], [place] [address] Bhupendra Márquez M.D. [id number] Urea nitrogen [Mass/Vol] 14 mg/dL Normal 8-25 [facility] Comment on above: Order Comment: [facility] has implemented the eGFR calculation approach that does not have a coefficient for race that conforms to the NKF-ASN Task Force Recommendations. Performed By: #### L [id number] #### LAB [address] [place], [place] [address] Bhupendra Márquez M.D. [id number] Urea nitrogen/Creatinine [Mass ratio] 13.3 mg/mg Normal 10.0-20.0 [facility] Comment on above: Order Comment: [facility] has implemented the eGFR calculation approach that does not have a coefficient for race that conforms to the NKF-ASN Task Force Recommendations. Performed By: #### L [id number] #### LAB [address] [place], [place] [address] Bhupendra Márquez M.D. [id number] Basic metabolic 2000 panelon 11-07-2024 Anion gap [Moles/Vol] 16 mmol/L 10 - 20 mmol/L [facility] Calcium [Mass/Vol] 9.5 mg/dL 8.4 - 10. 2 mg/dL [facility] Chloride [Moles/Vol] 101 mmol/L 98 - 108 mmol/L [facility] Creatinine [Mass/Vol] 1.05 mg/dL 0.60 - 1.20 mg/dL [facility] GFR/1.73 sq M.predicted CKD-EPI (S/P/Bld) [Vol rate/Area] 51 Low - PINF [facility] Comment on above: Estimated GFR was ca lculated using the 2020 CKD-EPI creatinine equation. Glucose [Mass/Vol] 112 mg/dL High 65 - 99 mg/dL [facility] HCO3 [Moles/Vol] 26 mmol/L 21 - 32 mmol/L [facility] Potassium [Moles/Vol] 4.1 mmol/L 3.5 - 5.1 mmol/L [facility] Sodium [Moles/Vol] 139 mmol/L 135 - 145 mmol/L [facility] Urea nitrogen [Mass/Vol] 14 mg/dL 8 - 25 mg/dL [facility] Urea nitrogen/Creatinine [Mass ratio] 13.3 mg/mg 10.0 - 20.0 [facility] has implemented the eGFR calculation approach that does not have a coefficient for race that conforms to the NKF-ASN Task Force Recommendations. [facility] CBC Auto Differentialon Basophils (Bld) [#/Vol] 0.03 10*3/uL [facility] Basophils/100 WBC (Bld) 0.5 % [facility] Eosinophils (Bld) [#/Vol] 0.14 10*3/uL [facility] Eosinophils/100 WBC (Bld) 2.1 % [facility] Erythrocyte distribution width (RBC) [Entitic vol] 13.2 % 11.6 - 14.8 % [facility] Hematocrit (Bld) [Volume fraction] 41 % 36.0 - 46.0 % [facility] Hemoglobin (Bld) [Mass/Vol] 12.7 g/dL 12.0 - 16.0 g/dL [facility] Immature granulocytes (Bld) [#/Vol] 0.01 10*3/uL [facility] Immature granulocytes/100 WBC (Bld) 0.2 % [facility] Comment on above: The IG parameter is the percentage of metamyelocytes, myelocytes and promyelocytes. An immature granulocyte count (IG) of 1% or more suggests the possibility of infection, an IG count of 3% is very likely related to an infection. Lymphocytes (Bld) [#/Vol] 2.74 10*3/uL [facility] Lymphocytes/100 WBC (Bld) 41.3 % [facility] MCH (RBC) [Entitic mass] 30 pg 26.0 - 34.0 pg [facility] MCHC (RBC) [Mass/Vol] 31 g/dL 31.0 - 37.0 g/dL [facility] MCV (RBC) [Entitic vol] 96.9 fL 80.0 - 100.0 fL [facility] Monocytes (Bld) [#/Vol] 0.58 10*3/uL [facility] Monocytes/100 WBC (Bld) 8.7 % [facility] Neutrophils (Bld) [#/Vol] 3.14 10*3/uL [facility] Neutrophils/100 WBC (Bld) 47.2 % [facility] Nucleated RBC (Bld) [#/Vol] 0 10*3/uL [facility] Nucleated RBC/100 WBC (Bld) [Ratio] 0 % [facility] Platelet mean volume (Bld) [Entitic vol] 10.2 fL 9.4 - 12.4 fL [facility] Platelets (Bld) [#/Vol] 173 10*3/uL [facility] RBC (Bld) [#/Vol] 4.23 10*6/uL [facility] WBC (Bld) [#/Vol] 6.64 10*3/uL [facility] CBC WITH AUTO DIFFERENTIALon 11-07-2024 AUTO NRBC 0.0 % [facility] Comment on above: Performed By: #### L [id number] #### LAB [address] [place] [address] Bhupendra Márquez M.D. [id number] AUTO NRBC ABS COUNT 0.00 K/mcL Normal 0.00-0.00 [facility] Comment on above: Performed By: #### L [id number] #### LAB [address] [place] [address] Bhupendra Márquez M.D. [id number] BASOPHILS ABSOLUTE COUNT 0.03 K/mcL Normal 0.00-0.30 [facility] Comment on above: Performed By: #### L [id number] #### LAB [address] [place] [address] Bhupendra Márquez M.D. [id number] Basophils/100 WBC (Bld) 0.5 % [facility] Comment on above: Performed By: #### L [id number] #### LAB [address] [place] [address] Bhupendra Márquez M.D. [id number] Eosinophils (Bld) [#/Vol] 0.14 10*3/uL Normal 0.00-0.50 [facility] Comment on above: Performed By: #### L [id number] #### LAB [address] [place] [address] Bhupendra Márquez M.D. [id number] Eosinophils/100 WBC (Bld) 2.1 % [facility] Comment on above: Performed By: #### L [id number] #### LAB [address] [place] [address] Bhupendra Márquez M.D. [id number] Erythrocyte distribution width (RBC) [Ratio] 13.2 % Normal 11.6-14.8 [facility] Comment on above: Performed By: #### L [id number] #### LAB [address] [address] Bhupendra Márquez M.D. [id number] Hematocrit (Bld) [Volume fraction] 41.0 % Normal 36.0-46.0 [facility] Comment on above: Performed By: #### L [id number] #### LAB [address] [address] Bhupendra Márquez M.D. [id number] Hemoglobin (Bld) [Mass/Vol] 12.7 g/dL Normal 12.0-16.0 [facility] Comment on above: Performed By: #### L [id number] #### LAB [address] [address] Bhupendra Márquez M.D. [id number] IG ABSOLUTE 0.01 K/mcL Normal 0.00-0.30 [facility] Comment on above: Performed By: #### L [id number] #### LAB [address] [address] Bhupendra Márquez M.D. [id number] IG PERCENT 0.20 % Normal [facility] Comment on above: Result Comment: The IG parameter is the percentage of metamyelocytes, myelocytes and promyelocytes. An immature granulocyte count (IG) of 1% or more suggests the possibility of infection, an IG count of 3% is very likely related to an infection. Performed By: #### L [id number] #### LAB [address] [address] Bhupendra Márquez M.D. [id number] Lymphocytes (Bld) [#/Vol] 2.74 10*3/uL Normal 0.90-4.00 [facility] Comment on above: Performed By: #### L [id number] #### LAB [address] [place] [address] Bhupendra Márquez M.D. [id number] Lymphocytes/100 WBC (Bld) 41.3 % Normal [facility] Comment on above: Performed By: #### L [id number] #### LAB [address] [address] Bhupendra Márquez M.D. [id number] MCH (RBC) [Entitic mass] 30.0 pg Normal 26.0-34.0 [facility] Comment on above: Performed By: #### L [id number] #### LAB [address] [address] Bhupendra Márquez M.D. [id number] MCV (RBC) [Entitic vol] 96.9 fL Normal 80.0-100.0 [facility] Comment on above: Performed By: #### L [id number] #### LAB [address] [address] Bhupendra Márquez M.D. [id number] MEAN CORPUSCULAR HEMOGLOBIN CONC 31.0 g/dL Normal 31.0-37.0 [facility] Comment on above: Performed By: #### L [id number] #### LAB [address] [address] Bhupendra Márquez M.D. [id number] Monocytes (Bld) [#/Vol] 0.58 10*3/uL Normal 0.30-0.90 [facility] Comment on above: Performed By: #### L [id number] #### LAB [address] [address] Bhupendra Márquez M.D. [id number] Monocytes/100 WBC (Bld) 8.7 % Normal [facility] Comment on above: Performed By: #### L [id number] #### LAB [address] [address] Bhupendra Márquez M.D. [id number] NEUTROPHILS ABSOLUTE COUNT 3.14 K/mcL Normal 1.70-7.00 [facility] Comment on above: Performed By: #### L [id number] #### LAB [address] [address] Bhupendra Márquez M.D. [id number] Neutrophils/100 WBC (Bld) 47.2 % Normal [facility] Comment on above: Performed By: #### L [id number] #### LAB [address] [address] Bhupendra Márquez M.D. [id number] Platelet mean volume (Bld) [Entitic vol] 10.2 fL Normal 9.4-12.4 [facility] Comment on above: Performed By: #### L [id number] #### [facility] [address] [address] Bhupendra Márquez M.D. [id number] Platelets (Bld) [#/Vol] 173 10*3/uL Normal 150-400 [facility] Comment on above: Performed By: #### L [id number] #### LAB [address] [address] Bhupendra Márquez M.D. [id number] RBC (Bld) [#/Vol] 4.23 10*6/uL Normal 4.00-5.20 [facility] Comment on above: Performed By: #### L [id number] #### [facility] [address] [address] Bhupendra Márquez M.D. [id number] WBC (Bld) [#/Vol] 6.64 10*3/uL Normal 4.50-11.00 [facility] Comment on above: Performed By: #### L [id number] #### LAB [address] [address] Bhupendra Márquez M.D. [id number] MAGNESIUM LEVELon 11-07-2024 Magnesium [Mass/Vol] 1.5 mg/dL Low 1.6-2.4 [facility] Comment on above: Performed By: #### 4 [id number] #### [facility] [address] [address] Bhupendra Márquez M.D. [id number] Magnesium Levelon 11-07-2024 Magnesium [Mass/Vol] 1.5 mg/dL Low 1.6 - 2.4 mg/dL [facility] No Panel Informationon 11-07 Interpretation and review of laboratory results Abnormal [facility] Bacteria identified Aer cx N om (Unsp spec)Ordered By: Lukas Wang on 11-05-2024 Interpretation and review of laboratory results Abnormal [facility] Urine Aerobic CultureOrdered By: Lukas Wang on 11-05-2024 Bacteria identified Aer cx Nom (Unsp spec) >100,000 CFU/mL Citrobacter freundii group Abnormal [facility] ECG 12- Leadon 11-04-2024 Atrial Rate 83 BPM [facility] P [place] 16 degrees [facility] P-R Interval 158 ms [facility] Q-T Interval 386 ms [facility] QRS Duration 102 ms [facility] QTC Calculation (Bezet) 453 ms [facility] R [place] -38 degrees [facility] T [place] 51 degrees [facility] Ventricular Rate 83 BPM [facility] th Normal sinus rhythm Left axis deviation Moderate voltage criteria for LVH, may be normal variant ( R in aVL , Stuart product ) Nonspecific T wave abnormality Abnormal ECG ECG Cart Interpretation see physician note for interpretation. Confirmed by Kristal Soto ([id number]) on 11/04/2024 11:58:36 AM MUSE [facility] BASIC METABOLIC PANELon 10-08 Anion gap [Moles/Vol] 14 mmol/L Normal 10-20 [facility] Comment on above: Order Comment: [facility] has implemented the eGFR calculation approach that does not have a coefficient for race that conforms to the NKF-ASN Task Force Recommendations. Performed By: #### [id number] #### [facility] [address] [address] Bhupendra Márquez M.D. [id number] Calcium [Mass/Vol] 9.0 mg/dL Normal 8.4-10.2 [facility] Comment on above: Order Comment: [facility] has implemented the eGFR calculation approach that does not have a coefficient for race that conforms to the NKF-ASN Task Force Recommendations. Performed By: #### [id number] #### [facility] [address] [place], [place] [address] Bhupendra Márquez M.D. [id number] Chloride [Moles/Vol] 104 mmol/L Normal 98-108 [facility] Comment on above: Order Comment: [facility] has implemented the eGFR calculation approach that does not have a coefficient for race that conforms to the NKF-ASN Task Force Recommendations. Performed By: #### 4 [id number] #### LAB [address] [place], [place] [address] Bhupendra Márquez M.D. [id number] Creatinine [Mass/Vol] 1.17 mg/dL Normal 0.60-1.20 [facility] Comment on above: Order Comment: [facility] has implemented the eGFR calculation approach that does not have a coefficient for race that conforms to the NKF-ASN Task Force Recommendations. Performed By: #### 4 [id number] #### LAB [address] [address] Bhupendra Márquez M.D. [id number] EGFR 45 mL/min/1.73 m2 Low >=60 [facility] Comment on above: Order Comment: [facility] has implemented the eGFR calculation approach that does not have a coefficient for race that conforms to the NKF-ASN Task Force Recommendations. Result Comment: Danielle mated GFR was calculated using the 2020 CKD-EPI creatinine equation. Performed By: #### 4 [id number] #### LAB [address] [address] Bhupendra Márquez M.D. [id number] Glucose [Mass/Vol] 95 mg/dL Normal 65-99 [facility] Comment on above: Order Comment: [facility] has implemented the eGFR calculation approach that does not have a coefficient for race that conforms to the NKF-ASN Task Force Recommendations. Performed By: #### 4 [id number] #### [facility] [address] [address] Bhupendra Márquez M.D. [id number] HCO3 (Bld) [Moles/Vol] 26 mmol/L Normal 21-32 [facility] Comment on above: Order Comment: [facility] has implemented the eGFR calculation approach that does not have a coefficient for race that conforms to the NKF-ASN Task Force Recommendations. Performed By: #### 4 [id number] #### LAB [address] [address] Bhupendra Márquez M.D. [id number] Potassium [Moles/Vol] 4.1 mmol/L Normal 3.5-5.1 [facility] Comment on above: Order Comment: [facility] has implemented the eGFR calculation approach that does not have a coefficient for race that conforms to the NKF-ASN Task Force Recommendations. Performed By: #### 4 [id number] #### LAB [address] [address] Bhupendra Márquez M.D. [id number] Sodium [Moles/Vol] 140 mmol/L Normal 135-145 [facility] Comment on above: Order Comment: [facility] has implemented the eGFR calculation approach that does not have a coefficient for race that conforms to the NKF-ASN Task Force Recommendations. Performed By: #### 4 [id number] #### LAB [address] [address] Bhupendra Márquez M.D. [id number] Urea nitrogen [Mass/Vol] 11 mg/dL Normal 8-25 [facility] Comment on above: Order Comment: [facility] has implemented the eGFR calculation approach that does not have a coefficient for race that conforms to the NKF-ASN Task Force Recommendations. Performed By: #### [id number] #### LAB [address] [address] Bhupendra Márquez M.D. [id number] Urea nitrogen/Creatinine [Mass ratio] 9.4 mg/mg Low 10.0-20.0 [facility] Comment on above: Order Comment: [facility] has implemented the eGFR calculation approach that does not have a coefficient for race that conforms to the NKF-ASN Task Force Recommendations. Performed By: #### [id number] #### LAB [address] [address] Bhupendra Márquez M.D. [id number] Basic metabolic 2000 panelon 11-03-2024 Anion gap [Moles/Vol] 14 mmol/L 10 - 20 mmol/L [facility] Calcium [Mass/Vol] 9 mg/dL 8.4 - 10. 2 mg/dL [facility] Chloride [Moles/Vol] 104 mmol/L 98 - 108 mmol/L [facility] Creatinine [Mass/Vol] 1.17 mg/dL 0.60 - 1.20 mg/dL [facility] GFR/1.73 sq M.predicted CKD-EPI (S/P/Bld) [Vol rate/Area] 45 Low - PINF [facility] Comment on above: Estimated GFR was ca lculated using the 2020 CKD-EPI creatinine equation. Glucose [Mass/Vol] 95 mg/dL 65 - 99 mg/dL [facility] HCO3 [Moles/Vol] 26 mmol/L 21 - 32 mmol/L [facility] Interpretation and review of laboratory results Abnormal [facility] Potassium [Moles/Vol] 4.1 mmol/L 3.5 - 5.1 mmol/L [facility] Sodium [Moles/Vol] 140 mmol/L 135 - 145 mmol/L [facility] Urea nitrogen [Mass/Vol] 11 mg/dL 8 - 25 mg/dL [facility] Urea nitrogen/Creatinine [Mass ratio] 9.4 mg/mg Low 10.0 - 20.0 [facility] has implemented the eGFR calculation approach that does not have a coefficient for race that conforms to the NKF-ASN Task Force Recommendations. [facility] CBC Auto Differentialon 10-08 Basophils (Bld) [#/Vol] 0.03 10*3/uL [facility] Basophils/100 WBC (Bld) 0.4 % [facility] Eosinophils (Bld) [#/Vol] 0.18 10*3/uL [facility] Eosinophils/100 WBC (Bld) 2.3 % [facility] Erythrocyte distribution width (RBC) [Entitic vol] 13.6 % 11.6 - 14.8 % [facility] Hematocrit (Bld) [Volume fraction] 37.5 % 36.0 - 46.0 % [facility] Hemoglobin (Bld) [Mass/Vol] 11.6 g/dL Low 12.0 - 16.0 g/dL [facility] Immature granulocytes (Bld) [#/Vol] 0.02 10*3/uL [facility] Immature granulocytes/100 WBC (Bld) 0.3 % [facility] Comment on above: The IG parameter is the percentage of metamyelocytes, myelocytes and promyelocytes. An immature granulocyte count (IG) of 1% or more suggests the possibility of infection, an IG count of 3% is very likely related to an infection. Interpretation and review of laboratory results Abnormal [facility] Lymphocytes (Bld) [#/Vol] 3.45 10*3/uL [facility] Lymphocytes/100 WBC (Bld) 44.2 % [facility] MCH (RBC) [Entitic mass] 29.7 pg 26.0 - 34.0 pg [facility] MCHC (RBC) [Mass/Vol] 30.9 g/dL Low 31.0 - 37.0 g/dL [facility] MCV (RBC) [Entitic vol] 96.2 fL 80.0 - 100.0 fL [facility] Monocytes (Bld) [#/Vol] 0.77 10*3/uL [facility] Monocytes/100 WBC (Bld) 9.9 % [facility] Neutrophils (Bld) [#/Vol] 3.35 10*3/uL [facility] Neutrophils/100 WBC (Bld) 42.9 % [facility] Nucleated RBC (Bld) [#/Vol] 0 10*3/uL [facility] Nucleated RBC/100 WBC (Bld) [Ratio] 0 % [facility] Platelet mean volume (Bld) [Entitic vol] 10.1 fL 9.4 - 12.4 fL [facility] Platelets (Bld) [#/Vol] 163 10*3/uL [facility] RBC (Bld) [#/Vol] 3.9 10*6/uL Low [facility] WBC (Bld) [#/Vol] 7.8 10*3/uL [facility] CBC WITH AUTO DIFFERENTIALon 11-03-2024 AUTO NRBC 0.0 % Normal [facility] Comment on above: Performed By: #### L [id number] #### MH LAB [address], [place] [address] Bhupendra Márquez M.D. [id number] AUTO NRBC ABS COUNT 0.00 K/mcL Normal 0.00-0.00 [facility] Comment on above: Performed By: #### L [id number] #### MH LAB [address], [place] [address] Bhupendra Márquez M.D. [id number] BASOPHILS ABSOLUTE COUNT 0.03 K/mcL Normal 0.00-0.30 [facility] Comment on above: Performed By: #### L [id number] #### LAB [address] [address] Bhupendra Márquez M.D. [id number] Basophils/100 WBC (Bld) 0.4 % Normal [facility] Comment on above: Performed By: #### L [id number] #### LAB [address] [address] Bhupendra Márquez M.D. [id number] Eosinophils (Bld) [#/Vol] 0.18 10*3/uL Normal 0.00-0.50 [facility] Comment on above: Performed By: #### L [id number] #### LAB [address] [address] Bhupendra Márquez M.D. [id number] Eosinophils/100 WBC (Bld) 2.3 % Normal [facility] Comment on above: Performed By: #### L [id number] #### LAB [address] [address] Bhupendra Márquez M.D. [id number] Erythrocyte distribution width (RBC) [Ratio] 13.6 % Normal 11.6-14.8 [facility] Comment on above: Performed By: #### L [id number] #### LAB [address] [address] Bhupendra Márquez M.D. [id number] Hematocrit (Bld) [Volume fraction] 37.5 % Normal 36.0-46.0 [facility] Comment on above: Performed By: #### L [id number] #### LAB [address] [address] Bhupendra Márquez M.D. [id number] Hemoglobin (Bld) [Mass/Vol] 11.6 g/dL Low 12.0-16.0 [facility] Comment on above: Performed By: #### L [id number] #### LAB [address] [address] Bhupendra Márquez M.D. [id number] IG ABSOLUTE 0.02 K/mcL Normal 0.00-0.30 [facility] Comment on above: Performed By: #### L [id number] #### LAB [address] [address] Bhupendra Márquez M.D. [id number] IG PERCENT 0.30 % Normal [facility] Comment on above: Result Comment: The IG parameter is the percentage of metamyelocytes, myelocytes and promyelocytes. An immature granulocyte count (IG) of 1% or more suggests the possibility of infection, an IG count of 3% is very likely related to an infection. Performed By: #### L [id number] #### LAB [address] [address] Bhupendra Márquez M.D. [id number] Lymphocytes (Bld) [#/Vol] 3.45 10*3/uL Normal 0.90-4.00 [facility] Comment on above: Performed By: #### L [id number] #### LAB [address] [place] [address] Bhupendra Márquez M.D. [id number] Lymphocytes/100 WBC (Bld) 44.2 % Normal [facility] Comment on above: Performed By: #### L [id number] #### LAB [address] [place] [address] Bhupendra Márquez M.D. [id number] MCH (RBC) [Entitic mass] 29.7 pg Normal 26.0-34.0 [facility] Comment on above: Performed By: #### L [id number] #### LAB [address] [address] Bhupendra Márquez M.D. [id number] MCV (RBC) [Entitic vol] 96.2 fL Normal 80.0-100.0 [facility] Comment on above: Performed By: #### L [id number] #### LAB [address] [address] Bhupendra Márquez M.D. [id number] MEAN CORPUSCULAR HEMOGLOBIN CONC 30.9 g/dL Low 31.0-37.0 [facility] Comment on above: Performed By: #### L [id number] #### LAB [address] [address] Bhupendra Márquez M.D. [id number] Monocytes (Bld) [#/Vol] 0.77 10*3/uL Normal 0.30-0.90 [facility] Comment on above: Performed By: #### L [id number] #### LAB [address] [address] Bhupendra Márquez M.D. [id number] Monocytes/100 WBC (Bld) 9.9 % Normal [facility] Comment on above: Performed By: #### L [id number] #### LAB [address] [address] Bhupendra Márquez M.D. [id number] NEUTROPHILS ABSOLUTE COUNT 3.35 K/mcL Normal 1.70-7.00 [facility] Comment on above: Performed By: #### L [id number] #### LAB [address] [place] [address] Bhupendra Márquez M.D. [id number] Neutrophils/100 WBC (Bld) 42.9 % Normal [facility] Comment on above: Performed By: #### L [id number] #### LAB [address] [address] Bhupendra Márquez M.D. [id number] Platelet mean volume (Bld) [Entitic vol] 10.1 fL Normal 9.4-12.4 [facility] Comment on above: Performed By: #### L [id number] #### LAB [address] [address] Bhupendra Márquez M.D. [id number] Platelets (Bld) [#/Vol] 163 10*3/uL Normal 150-400 [facility] Comment on above: Performed By: #### L [id number] #### LAB [address] [place] [address] Bhupendra Márquez M.D. [id number] RBC (Bld) [#/Vol] 3.90 10*6/uL Low 4.00-5.20 [facility] Comment on above: Performed By: #### L [id number] #### MH LAB [address], [place] [address] Bhupendra Márquez M.D. [id number] WBC (Bld) [#/Vol] 7.80 10*3/uL Normal 4.50-11.00 [facility] Comment on above: Performed By: #### L [id number] #### LAB [address], [place] [address] Bhupendra Márquez M.D. [id number] CONSULTon 11-03-2024 CONSULT Neurology Inpatient Consult [facility] Physician [facility] Date of Service: 11/03/24 Admit Date: 11/02/2024 Service Type: New Patient Consultation Patient: Cat Carroll Date of : 1935 (89 y.o.) Referring Provider: Refer to consult order in electronic medical record Assessment ASSESSMENT: Cat Carroll is a 89 y.o. female who presented to [facility] on 11/02/2024 with dizziness; neurology consulted for the same. Patient known to me with history of trigeminal neuralgia. She has a history of dizziness even prior which made medications challenging; lamotrigine has been the only tolerable/effective approach so far. Presents with generalized weakness, instability, nausea, dysuria, urinary frequency, anorexia. History of recurrent UTI. Urine culture pending but UA positive for nitrites and leukocyte esterase with 11 WBCs (while not the most impressive, this is a change from the negative UA from 10/27). MRI negative. Dizziness is likely multifactorial. The acute trigger is probably UTI, with contributions from her medications (lamotrigine and methadone both can cause dizziness) and known spinal stenosis also playing a role with regards to her balance. She also has chronic BPPV which is contributing. As mentioned, she had chronic dizziness even before starting either of those meds, so they are not the main problem. I will adjust her lamotrigine dose as the level is a little high. Can cut down to 250mg BID; may need a new script for 25mg tabs outpatient (200mg + 2 x 25mg tabs for total 250mg). She would probably benefit from physical therapy as she is fairly deconditioned. Diagnoses: Generalized weakness and imbalance, multifactorial Trigeminal neuralgia Lumbar spinal stenosis Admitted with these risk variables:None. Please see assessment and plan for further details. PLAN: - decrease lamotrigine to 250mg BID - PT/OT - vestibular rehab after discharge - continue home atorvastatin - meclizine PRN, watch for delirium (can cause confusion in elderly patients) - Zofran PRN for nausea - follow up urine cultures - will follow along Rocael Mcleod MD Staff Neurologist [facility] [address] [id number], [facility] [address] [facility] 11/03/24 Parts of this note may have been dictated using Numerate, a speech-recognition software. Syntax errors and sound-alike substitutions which may escape proofreading could be present. In such instances, the actual meaning can be extrapolated from the context. Subjective SUBJECTIVE: Chief Complaint/Reason for Consult: dizziness History of Present Illness: Cat Carroll is a 89 y.o. female who presented on 11/02/2024 for dizziness and other symptoms. Neurology is consulted for the same. Patient known to me for trigeminal neuralgia, managed on lamotrigine. She has chronic dizziness since before I met her which made medication choice challenging (lamotrigine was really my last option anyway so it's good that it worked). Presents with worsening dizziness but also nausea, vomiting, blurry vision, generalized weakness, dysuria, increased urinary frequency, urinary incontinence, for at least a week. UA suggestive of UTI. TN pain is controlled now, no issues there. Review of systems: All systems were reviewed and found to be negative except for those mentioned in the HPI. 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 She has a past surgical history that includes Egd (01/01/2015); Egd (08/2014); Dilatation And Curettage (D And C) (1969); Hysterectomy (1974); Cholecystectomy; Kidney surgery (1968); Bladder repair (1989); Lumpectomy (Left, 1989); Cyst Removal (Right, 1999); Knee surgery (Left, 1997); Squamous cell carcinoma excision; Fracture surgery (Right); Cataract Ext/Ecce (Bilateral, 2011); Total knee arthroplasty (Left, 2012); Back surgery (2013); Tumor removal (2011); Esophagogastroduodenoscopy (01/04/2018); hc left heart cath (N/A, 08/23/2018); Orif Hip Gamma Nail (Right, 04/02/2020); pr njx dx/ther agt pvrt facet jt lmbr/sac 1 level (Bilateral, 06/18/2023); pr njx dx/ther agt pvrt facet jt lmbr/sac 1 level (Bilateral, 07/02/2023); pr dstr nrolytc agnt parverteb fct sngllmbr/sacral (Bilateral, 1 (more content not included)... Normal [facility] EKGon 11-03-2024 [facility] LAMOTRIGINE LEVELon 11-04-19 25 LAMOTRIGINE 18.3 mcg/mL High 3.0-15.0 [facility] Comment on above: Performed By: #### L [id number] #### MH LAB [address], [place] [address] Bhupendra Márquez M.D. [id number] Lamotrigine LevelOrdered By: Hafsa Saleem on 11-03-2024 Interpretation and review of laboratory results Abnormal [facility] lamoTRIgine [Mass/Vol] 18.3 High [facility] MR Brain WO contraston 11-03 1. No acute infarction. 2. Moderate brain atrophy and moderate chronic microvascular changes. 3. No masses. Internal auditory canals and cerebellopontine angle cisternal spaces appear normal. [facility] Workstation ID: [id number] Linki RIS EXAMINATION: MR BRAIN WITHOUT CONTRAST HISTORY: ORDERING SYSTEM PROVIDED HISTORY: diziness, TECHNOLOGIST PROVIDED HISTORY: Illness/Other Reason for exam: Few days of dizziness, wobbly gait, blurred vision. No Hx CVA; + Hx skin CA Encounter Type: Subsequent/Follow-up Additional signs and symptoms: . ORDERING SYSTEM PROVIDED DIAGNOSIS CODES: R53.1 Weakness generalized N30.90 Cystitis COMPARISON: CT angiogram head and neck with contrast, 10/31/2024. TECHNIQUE: Multiplanar, multisequence MR imaging of the brain without contrast. FINDINGS: The paranasal sinuses are clear. The mastoid air cells are clear. Nasopharynx normal. Plisse Machine Operator spaces normal. Prior cataract surgery. Extracranial soft tissue structures are unremarkable. Moderate brain atrophy. No extra-axial fluid collection. No mass effect. No shift of midline. Moderate chronic microvascular changes in the cerebral white matter. No diffusion restriction. No acute ischemic infarction. No hemorrhagic lesions. No masses. Internal auditory canals and cerebellopontine angle cisternal spaces are normal. [facility] Prakash Rodriguez MD - 11/03/2024 EXAMINATION: MR BRAIN WITHOUT CONTRAST HISTORY: ORDERING SYSTEM PROVIDED HISTORY: diziness, TECHNOLOGIST PROVIDED HISTORY: Illness/Other Reason for exam: Few days of dizziness, wobbly gait, blurred vision. No Hx CVA; + Hx skin CA Encounter Type: Subsequent/Follow-up Additional signs and symptoms: . ORDERING SYSTEM PROVIDED DIAGNOSIS CODES: R53.1 Weakness generalized N30.90 Cystitis COMPARISON: CT angiogram head and neck with contrast, 10/31/2024. TECHNIQUE: Multiplanar, multisequence MR imaging of the brain without contrast. FINDINGS: The paranasal sinuses are clear. The mastoid air cells are clear. Nasopharynx normal. Plisse Machine Operator spaces normal. Prior cataract surgery. Extracranial soft tissue structures are unremarkable. Moderate brain atrophy. No extra-axial fluid collection. No mass effect. No shift of midline. Moderate chronic microvascular changes in the cerebral white matter. No diffusion restriction. No acute ischemic infarction. No hemorrhagic lesions. No masses. Internal auditory canals and cerebellopontine angle cisternal spaces are normal. IMPRESSION: 1. No acute infarction. 2. Moderate brain atrophy and moderate chronic microvascular changes. 3. No masses. Internal auditory canals and cerebellopontine angle cisternal spaces appear normal. [facility] Workstation ID: [id number] [facility] MR Brain WO contrastOrdered By: Prakash Rodriguez on 11-03-2024 [facility] Work Phone: CBC Auto Differentialon 10-08 Basophils (Bld) [#/Vol] 0.03 10*3/uL [facility] Basophils/100 WBC (Bld) 0.5 % [facility] Eosinophils (Bld) [#/Vol] 0.03 10*3/uL [facility] Eosinophils/100 WBC (Bld) 0.5 % [facility] Erythrocyte distribution width (RBC) [Entitic vol] 13.6 % 11.6 - 14.8 % [facility] Hematocrit (Bld) [Volume fraction] 37.9 % 36.0 - 46.0 % [facility] Hemoglobin (Bld) [Mass/Vol] 11.9 g/dL Low 12.0 - 16.0 g/dL [facility] Immature granulocytes (Bld) [#/Vol] 0.03 10*3/uL [facility] Immature granulocytes/100 WBC (Bld) 0.5 % [facility] Comment on above: The IG parameter is the percentage of metamyelocytes, myelocytes and promyelocytes. An immature granulocyte count (IG) of 1% or more suggests the possibility of infection, an IG count of 3% is very likely related to an infection. Interpretation and review of laboratory results Abnormal [facility] Lymphocytes (Bld) [#/Vol] 1.92 10*3/uL [facility] Lymphocytes/100 WBC (Bld) 30.2 % [facility] MCH (RBC) [Entitic mass] 29.7 pg 26.0 - 34.0 pg [facility] MCHC (RBC) [Mass/Vol] 31.4 g/dL 31.0 - 37.0 g/dL [facility] MCV (RBC) [Entitic vol] 94.5 fL 80.0 - 100.0 fL [facility] Monocytes (Bld) [#/Vol] 0.55 10*3/uL [facility] Monocytes/100 WBC (Bld) 8.6 % [facility] Neutrophils (Bld) [#/Vol] 3.8 10*3/uL [facility] Neutrophils/100 WBC (Bld) 59.7 % [facility] Nucleated RBC (Bld) [#/Vol] 0 10*3/uL [facility] Nucleated RBC/100 WBC (Bld) [Ratio] 0 % [facility] Platelet mean volume (Bld) [Entitic vol] 10.2 fL 9.4 - 12.4 fL [facility] Platelets (Bld) [#/Vol] 170 10*3/uL [facility] RBC (Bld) [#/Vol] 4.01 10*6/uL [facility] WBC (Bld) [#/Vol] 6.36 10*3/uL [facility] CBC WITH AUTO DIFFERENTIALon 11-02-2024 AUTO NRBC 0.0 % Normal [facility] Comment on above: Performed By: #### L [id number] #### LAB [address] [place] [address] Bhupendra Márquez M.D. [id number] AUTO NRBC ABS COUNT 0.00 K/mcL Normal 0.00-0.00 [facility] Comment on above: Performed By: #### L [id number] #### LAB [address] [place] [address] Bhupendra Márquez M.D. [id number] BASOPHILS ABSOLUTE COUNT 0.03 K/mcL Normal 0.00-0.30 [facility] Comment on above: Performed By: #### L [id number] #### LAB [address] [place] [address] Bhupendra Márquez M.D. [id number] Basophils/100 WBC (Bld) 0.5 % Normal [facility] Comment on above: Performed By: #### L [id number] #### LAB [address] [address] Bhupendra Márquez M.D. [id number] Eosinophils (Bld) [#/Vol] 0.03 10*3/uL Normal 0.00-0.50 [facility] Comment on above: Performed By: #### L [id number] #### LAB [address] [place] [address] Bhupendra Márquez M.D. [id number] Eosinophils/100 WBC (Bld) 0.5 % Normal [facility] Comment on above: Performed By: #### L [id number] #### LAB [address] [address] Bhupendra Márquez M.D. [id number] Erythrocyte distribution width (RBC) [Ratio] 13.6 % Normal 11.6-14.8 [facility] Comment on above: Performed By: #### L [id number] #### LAB [address] [address] Bhupendra Márquez M.D. [id number] Hematocrit (Bld) [Volume fraction] 37.9 % Normal 36.0-46.0 [facility] Comment on above: Performed By: #### L [id number] #### LAB [address] [address] Bhupendra Márquez M.D. [id number] Hemoglobin (Bld) [Mass/Vol] 11.9 g/dL Low 12.0-16.0 [facility] Comment on above: Performed By: #### L [id number] #### LAB [address] [address] Bhupendra Márquez M.D. [id number] IG ABSOLUTE 0.03 K/mcL Normal 0.00-0.30 [facility] Comment on above: Performed By: #### L [id number] #### LAB [address] [address] Bhupendra Márquez M.D. [id number] IG PERCENT 0.50 % Normal [facility] Comment on above: Result Comment: The IG parameter is the percentage of metamyelocytes, myelocytes and promyelocytes. An immature granulocyte count (IG) of 1% or more suggests the possibility of infection, an IG count of 3% is very likely related to an infection. Performed By: #### L [id number] #### LAB [address] [address] Bhupendra Márquez M.D. [id number] Lymphocytes (Bld) [#/Vol] 1.92 10*3/uL Normal 0.90-4.00 [facility] Comment on above: Performed By: #### L [id number] #### LAB [address] [address] Bhupendra Márquez M.D. [id number] Lymphocytes/100 WBC (Bld) 30.2 % Normal [facility] Comment on above: Performed By: #### L [id number] #### LAB [address] [address] Bhupendra Márquez M.D. [id number] MCH (RBC) [Entitic mass] 29.7 pg Normal 26.0-34.0 [facility] Comment on above: Performed By: #### L [id number] #### LAB [address] [address] Bhupendra Márquez M.D. [id number] MCV (RBC) [Entitic vol] 94.5 fL Normal 80.0-100.0 [facility] Comment on above: Performed By: #### L [id number] #### LAB [address] [address] Bhupendra Márquez M.D. [id number] MEAN CORPUSCULAR HEMOGLOBIN CONC 31.4 g/dL Normal 31.0-37.0 [facility] Comment on above: Performed By: #### L [id number] #### LAB [address] [address] Bhupendra Márquez M.D. [id number] Monocytes (Bld) [#/Vol] 0.55 10*3/uL Normal 0.30-0.90 [facility] Comment on above: Performed By: #### L [id number] #### LAB [address] [address] Bhupendra Márquez M.D. [id number] Monocytes/100 WBC (Bld) 8.6 % Normal [facility] Comment on above: Performed By: #### L [id number] #### LAB [address] [place] [address] Bhupendra Márquez M.D. [id number] NEUTROPHILS ABSOLUTE COUNT 3.80 K/mcL Normal 1.70-7.00 [facility] Comment on above: Performed By: #### L [id number] #### [facility] [address] [address] Bhupendra Márquez M.D. [id number] Neutrophils/100 WBC (Bld) 59.7 % Normal [facility] Comment on above: Performed By: #### L [id number] #### [facility] [address] [address] Bhupendra Márquez M.D. [id number] Platelet mean volume (Bld) [Entitic vol] 10.2 fL Normal 9.4-12.4 [facility] Comment on above: Performed By: #### L [id number] #### [facility] [address] [address] Bhupendra Márquez M.D. [id number] Platelets (Bld) [#/Vol] 170 10*3/uL Normal 150-400 [facility] Comment on above: Performed By: #### L [id number] #### [facility] [address] [address] Bhupendra Márquez M.D. [id number] RBC (Bld) [#/Vol] 4.01 10*6/uL Normal 4.00-5.20 [facility] Comment on above: Performed By: #### L [id number] #### [facility] [address] [address] Bhupendra Márquez M.D. [id number] WBC (Bld) [#/Vol] 6.36 10*3/uL Normal 4.50-11.00 [facility] Comment on above: Performed By: #### L [id number] #### [facility] [address] [address] Bhupendra Márquez M.D. [id number] COMPREHENSIVE METABOLIC PANE Raffi 11-02-2024 Albumin [Mass/Vol] 4.1 g/dL Normal 3.2-5.2 [facility] Comment on above: Order Comment: [facility] has implemented the eGFR calculation approach that does not have a coefficient for race that conforms to the NKF-ASN Task Force Recommendations. Performed By: #### 4 [id number] #### LAB [address] [address] Bhupendra Márquez M.D. [id number] ALP [Catalytic activity/Vol] 108 U/L Normal 40-150 [facility] Comment on above: Order Comment: [facility] has implemented the eGFR calculation approach that does not have a coefficient for race that conforms to the NKF-ASN Task Force Recommendations. Performed By: #### 4 [id number] #### LAB [address] [address] Bhupendra Márquez M.D. [id number] ALT [Catalytic activity/Vol] 10 U/L Normal 0-35 U/L [facility] Comment on above: Order Comment: [facility] has implemented the eGFR calculation approach that does not have a coefficient for race that conforms to the NKF-ASN Task Force Recommendations. Performed By: #### 4 [id number] #### LAB [address] [address] Bhupendra Márquez M.D. [id number] Anion gap [Moles/Vol] 17 mmol/L Normal 10-20 [facility] Comment on above: Order Comment: [facility] has implemented the eGFR calculation approach that does not have a coefficient for race that conforms to the NKF-ASN Task Force Recommendations. Performed By: #### 4 [id number] #### LAB [address] [address] Bhupendra Márquez M.D. [id number] AST [Catalytic activity/Vol] 19 U/L Normal 0-35 U/L [facility] Comment on above: Order Comment: [facility] has implemented the eGFR calculation approach that does not have a coefficient for race that conforms to the NKF-ASN Task Force Recommendations. Performed By: #### 4 [id number] #### LAB [address] [address] Bhupendra Márquez M.D. [id number] Bilirubin [Mass/Vol] 0.5 mg/dL Normal 0.0-1.3 [facility] Comment on above: Order Comment: [facility] has implemented the eGFR calculation approach that does not have a coefficient for race that conforms to the NKF-ASN Task Force Recommendations. Performed By: #### 4 [id number] #### LAB [address] [place], [place] [address] Bhupendra Márquez M.D. [id number] Calcium [Mass/Vol] 9.1 mg/dL Normal 8.4-10.2 [facility] Comment on above: Order Comment: [facility] has implemented the eGFR calculation approach that does not have a coefficient for race that conforms to the NKF-ASN Task Force Recommendations. Performed By: #### 4 [id number] #### LAB [address] [address] Bhupendra Márquez M.D. [id number] Chloride [Moles/Vol] 101 mmol/L Normal 98-108 [facility] Comment on above: Order Comment: [facility] has implemented the eGFR calculation approach that does not have a coefficient for race that conforms to the NKF-ASN Task Force Recommendations. Performed By: #### 4 [id number] #### LAB [address] [address] Bhupendra Márquez M.D. [id number] Creatinine [Mass/Vol] 1.18 mg/dL Normal 0.60-1.20 [facility] Comment on above: Order Comment: [facility] has implemented the eGFR calculation approach that does not have a coefficient for race that conforms to the NKF-ASN Task Force Recommendations. Performed By: #### 4 [id number] #### LAB [address] [place], [place] [address] Bhupendra Márquez M.D. [id number] EGFR 45 mL/min/1.73 m2 Low >=60 [facility] Comment on above: Order Comment: [facility] has implemented the eGFR calculation approach that does not have a coefficient for race that conforms to the NKF-ASN Task Force Recommendations. Result Comment: Danielle mated GFR was calculated using the 2020 CKD-EPI creatinine equation. Performed By: #### 4 [id number] #### LAB [address] [id number] Bhupendra Márquez M.D. [id number] Glucose [Mass/Vol] 114 mg/dL High 65-99 [facility] Comment on above: Order Comment: [facility] has implemented the eGFR calculation approach that does not have a coefficient for race that conforms to the NKF-ASN Task Force Recommendations. Performed By: #### 4 [id number] #### LAB [address] [address] Bhupendra Márquez M.D. [id number] HCO3 (Bld) [Moles/Vol] 23 mmol/L Normal 21-32 [facility] Comment on above: Order Comment: [facility] has implemented the eGFR calculation approach that does not have a coefficient for race that conforms to the NKF-ASN Task Force Recommendations. Performed By: #### 4 [id number] #### LAB [address] [address] Bhupendra Márquez M.D. [id number] Potassium [Moles/Vol] 4.1 mmol/L Normal 3.5-5.1 [facility] Comment on above: Order Comment: [facility] has implemented the eGFR calculation approach that does not have a coefficient for race that conforms to the NKF-ASN Task Force Recommendations. Result Comment: Slig htly Hemolyzed Performed By: #### 4 [id number] #### LAB [address] [address] Bhupendra Márquez M.D. [id number] Protein [Mass/Vol] 6.4 g/dL Normal 6.0-8.0 [facility] Comment on above: Order Comment: [facility] has implemented the eGFR calculation approach that does not have a coefficient for race that conforms to the NKF-ASN Task Force Recommendations. Performed By: #### 4 [id number] #### LAB [address] [address] Bhupendra Márquez M.D. [id number] Sodium [Moles/Vol] 137 mmol/L Normal 135-145 [facility] Comment on above: Order Comment: [facility] has implemented the eGFR calculation approach that does not have a coefficient for race that conforms to the NKF-ASN Task Force Recommendations. Performed By: #### 4 6126 #### LAB [address] [place], [place] [address] Bhupendra Márquez M.D. [id number] Urea nitrogen [Mass/Vol] 15 mg/dL Normal 8-25 [facility] Comment on above: Order Comment: [facility] has implemented the eGFR calculation approach that does not have a coefficient for race that conforms to the NKF-ASN Task Force Recommendations. Performed By: #### 4 [id number] #### LAB [address] [place], [place] [address] Bhupendra Márquez M.D. [id number] Urea nitrogen/Creatinine [Mass ratio] 12.7 mg/mg Normal 10.0-20.0 [facility] Comment on above: Order Comment: [facility] has implemented the eGFR calculation approach that does not have a coefficient for race that conforms to the NKF-ASN Task Force Recommendations. Performed By: #### 4 [id number] #### LAB [address] [place], [place] [address] Bhupendra Márquez M.D. [id number] Comprehensive metabolic 2000 panelOrdered By: Felisha Mejia on 11-02-2024 Albumin [Mass/Vol] 4.1 g/dL 3.2 - 5.2 g/dL [facility] ALP [Catalytic activity/Vol] 108 U/L 40 - 150 U/L [facility] ALT [Catalytic activity/Vol] 10 U/L 0 - 35 U/L [facility] Anion gap [Moles/Vol] 17 mmol/L 10 - 20 mmol/L [facility] AST [Catalytic activity/Vol] 19 U/L 0 - 35 U/L [facility] Bilirubin [Mass/Vol] 0.5 mg/dL 0.0 - 1.3 mg/dL [facility] Calcium [Mass/Vol] 9.1 mg/dL 8.4 - 10. 2 mg/dL [facility] Chloride [Moles/Vol] 101 mmol/L 98 - 108 mmol/L [facility] Creatinine [Mass/Vol] 1.18 mg/dL 0.60 - 1.20 mg/dL [facility] GFR/1.73 sq M.predicted CKD-EPI (S/P/Bld) [Vol rate/Area] 45 Low - PINF [facility] Comment on above: Estimated GFR was ca lculated using the 2020 CKD-EPI creatinine equation. Glucose [Mass/Vol] 114 mg/dL High 65 - 99 mg/dL [facility] HCO3 [Moles/Vol] 23 mmol/L 21 - 32 mmol/L [facility] Interpretation and review of laboratory results Abnormal [facility] Potassium [Moles/Vol] 4.1 mmol/L 3.5 - 5.1 mmol/L [facility] Comment on above: Slightly Hemolyzed Protein [Mass/Vol] 6.4 g/dL 6.0 - 8.0 g/dL [facility] Sodium [Moles/Vol] 137 mmol/L 135 - 145 mmol/L [facility] Urea nitrogen [Mass/Vol] 15 mg/dL 8 - 25 mg/dL [facility] Urea nitrogen/Creatinine [Mass ratio] 12.7 mg/mg 10.0 - 20.0 [facility] has implemented the eGFR calculation approach that does not have a coefficient for race that conforms to the NKF-ASN Task Force Recommendations. [facility] MR BRAIN WITHOUT CONTRASTon 11-02-2024 MR BRAIN WITHOUT CONTRAST EXAMINATION: MR BRAIN WITHOUT CONTRAST HISTORY: ORDERING SYSTEM PROVIDED HISTORY: rubi, TECHNOLOGIST PROVIDED HISTORY: Illness/Other Reason for exam: Few days of dizziness, wobbly gait, blurred vision. No Hx CVA; + Hx skin CA Encounter Type: Subsequent/Follow-up Additional signs and symptoms: . ORDERING SYSTEM PROVIDED DIAGNOSIS CODES: R53.1 Weakness generalized N30.90 Cystitis COMPARISON: CT angiogram head and neck with contrast, 10/31/2024. TECHNIQUE: Multiplanar, multisequence MR imaging of the brain without contrast. FINDINGS: The paranasal sinuses are clear. The mastoid air cells are clear. Nasopharynx normal. [employer] spaces normal. Prior cataract surgery. Extracranial soft tissue structures are unremarkable. Moderate brain atrophy. No extra-axial fluid collection. No mass effect. No shift of midline. Moderate chronic microvascular changes in the cerebral white matter. No diffusion restriction. No acute ischemic infarction. No hemorrhagic lesions. No masses. Internal auditory canals and cerebellopontine angle cisternal spaces are normal. IMPRESSION: 1. No acute infarction. 2. Moderate brain atrophy and moderate chronic microvascular changes. 3. No masses. Internal auditory canals and cerebellopontine angle cisternal spaces appear normal. [employer] Workstation ID: [id number] Dictated by: PRAKASH RODRIGUEZ on Nae Nov 03, 2024 6:21:13 AM EDT Transcribed by: EVERETT BEYER on Nae Nov 03, 2024 6:36:04 AM EDT Finalized by: PRAKASH RODRIGUEZ on Nae Nov 03, 2024 7:50:03 PM EDT Normal [facility] Comment on above: Order Comment: Injur y/Trauma or Illness?:Illness/OtherHow long have you had these symptoms (acute/chronic)?:AcuteReason for exam?:Few days of dizziness, wobbly gait, blurred vision. No Hx CVA; + Hx skin CAType of Exam?:Subsequent/Follow-upAdditional signs and symptoms?:. MR Brain WO contraston 11-02 Radiology Study observation (narrative) [facility] No Panel Informationon 11-02 Extra Tube Hold for add-ons. [facility] Comment on above: Auto resulted. [facility] TROPONIN (ONCE)on 11-02-2024 BASELINE TROPONIN T NG/L 9 ng/L Normal <=14 [facility] Comment on above: Performed By: #### L [id number] #### [facility] [address] [address] Bhupendra Márquez M.D. [id number] TROPONIN T INTERPRETATION Normal Normal [facility] Comment on above: Performed By: #### L [id number] #### [facility] [address] [place], [place] [address] Bhupendra Márquez M.D. [id number] Troponin (Once)on 11-02-2024 Troponin T 9 ng/L NINF - 14 ng/L [facility] Troponin T Interpretation Normal [facility] URINALYSISon 11-02-2024 BACTERIA, URINE Rare Abnormal None Seen [facility] Comment on above: Order Comment: Micro scopic examination is performed on all urinalysis samples and only positive findings are reported. The test for blood on the chemical analytic portion of urinalysis may also be positive due to hemoglobinuria and myoglobinuria and if red blood cells are present they are quantified by microscopic examination. Performed By: #### L [id number] #### [facility] [address] [address] Bhupendra Márquez M.D. [id number] BILIRUBIN, URINE Negative Normal Negative [facility] Comment on above: Order Comment: Micro scopic examination is performed on all urinalysis samples and only positive findings are reported. The test for blood on the chemical analytic portion of urinalysis may also be positive due to hemoglobinuria and myoglobinuria and if red blood cells are present they are quantified by microscopic examination. Performed By: #### L [id number] #### [facility] [address] [address] Bhupendra Márquez M.D. [id number] BLOOD, URINE Small Abnormal Negative [facility] Comment on above: Order Comment: Micro scopic examination is performed on all urinalysis samples and only positive findings are reported. The test for blood on the chemical analytic portion of urinalysis may also be positive due to hemoglobinuria and myoglobinuria and if red blood cells are present they are quantified by microscopic examination. Performed By: #### L [id number] #### [facility] [address] [address] Bhupendra Márquez M.D. [id number] Clarity (U) Clear Normal Clear [facility] Comment on above: Order Comment: Micro scopic examination is performed on all urinalysis samples and only positive findings are reported. The test for blood on the chemical analytic portion of urinalysis may also be positive due to hemoglobinuria and myoglobinuria and if red blood cells are present they are quantified by microscopic examination. Performed By: #### L [id number] #### [facility] [address] [address] Bhupendra Márquez M.D. [id number] Color (U) Yellow Normal Colorless, Yellow [facility] Comment on above: Order Comment: Micro scopic examination is performed on all urinalysis samples and only positive findings are reported. The test for blood on the chemical analytic portion of urinalysis may also be positive due to hemoglobinuria and myoglobinuria and if red blood cells are present they are quantified by microscopic examination. Performed By: #### L [id number] #### [facility] [address] [place], [place] [address] Bhupendra Márquez M.D. [id number] Glucose Ql (U) Negative Normal Negative [facility] Comment on above: Order Comment: Micro scopic examination is performed on all urinalysis samples and only positive findings are reported. The test for blood on the chemical analytic portion of urinalysis may also be positive due to hemoglobinuria and myoglobinuria and if red blood cells are present they are quantified by microscopic examination. Performed By: #### L [id number] #### [facility] [address] [address] Bhupendra Márquez M.D. [id number] Ketones Ql (U) Negative Normal Negative [facility] Comment on above: Order Comment: Micro scopic examination is performed on all urinalysis samples and only positive findings are reported. The test for blood on the chemical analytic portion of urinalysis may also be positive due to hemoglobinuria and myoglobinuria and if red blood cells are present they are quantified by microscopic examination. Performed By: #### L [id number] #### [facility] [address] [address] Bhupendra Márquez M.D. [id number] Leukocyte esterase Test strip Ql (U) Moderate Abnormal Negative [facility] Comment on above: Order Comment: Micro scopic examination is performed on all urinalysis samples and only positive findings are reported. The test for blood on the chemical analytic portion of urinalysis may also be positive due to hemoglobinuria and myoglobinuria and if red blood cells are present they are quantified by microscopic examination. Performed By: #### L [id number] #### [facility] [address] [address] Bhupendra Márquez M.D. [id number] NITRITE, URINE Positive Abnormal Negative [facility] Comment on above: Order Comment: Micro scopic examination is performed on all urinalysis samples and only positive findings are reported. The test for blood on the chemical analytic portion of urinalysis may also be positive due to hemoglobinuria and myoglobinuria and if red blood cells are present they are quantified by microscopic examination. Performed By: #### L [id number] #### [facility] [address] [address] Bhupendra Márquez M.D. [id number] pH (U) 7.0 [pH] Normal 5.0-7.0 [facility] Comment on above: Order Comment: Micro scopic examination is performed on all urinalysis samples and only positive findings are reported. The test for blood on the chemical analytic portion of urinalysis may also be positive due to hemoglobinuria and myoglobinuria and if red blood cells are present they are quantified by microscopic examination. Performed By: #### L [id number] #### [facility] [address] [address] Bhupendra Márquez M.D. [id number] PROTEIN, URINE Negative Normal Negative [facility] Comment on above: Order Comment: Micro scopic examination is performed on all urinalysis samples and only positive findings are reported. The test for blood on the chemical analytic portion of urinalysis may also be positive due to hemoglobinuria and myoglobinuria and if red blood cells are present they are quantified by microscopic examination. Performed By: #### L [id number] #### [facility] [address] [address] Bhupendra Márquez M.D. [id number] RBC LM.HPF (Urine sed) [#/Area] 2 /[HPF] Normal 0-3 [facility] Comment on above: Order Comment: Micro scopic examination is performed on all urinalysis samples and only positive findings are reported. The test for blood on the chemical analytic portion of urinalysis may also be positive due to hemoglobinuria and myoglobinuria and if red blood cells are present they are quantified by microscopic examination. Performed By: #### L [id number] #### [facility] [address] [address] Bhupendra Márquez M.D. [id number] Specific gravity (U) [Rel density] 1.006 Normal 1.005-1.02 5 [facility] Comment on above: Order Comment: Micro scopic examination is performed on all urinalysis samples and only positive findings are reported. The test for blood on the chemical analytic portion of urinalysis may also be positive due to hemoglobinuria and myoglobinuria and if red blood cells are present they are quantified by microscopic examination. Performed By: #### L [id number] #### [facility] [address] [address] Bhupendra Márquez M.D. [id number] SQUAMOUS EPITHELIAL < Normal 0-4 [facility] Comment on above: Order Comment: Micro scopic examination is performed on all urinalysis samples and only positive findings are reported. The test for blood on the chemical analytic portion of urinalysis may also be positive due to hemoglobinuria and myoglobinuria and if red blood cells are present they are quantified by microscopic examination. Performed By: #### L [id number] #### [facility] [address] [address] Bhupendra Márquez M.D. [id number] UROBILINOGEN, URINE <2.0 Normal <2.0 [facility] Comment on above: Order Comment: Micro scopic examination is performed on all urinalysis samples and only positive findings are reported. The test for blood on the chemical analytic portion of urinalysis may also be positive due to hemoglobinuria and myoglobinuria and if red blood cells are present they are quantified by microscopic examination. Performed By: #### L [id number] #### [facility] [address] [address] Bhupendra Márquez M.D. [id number] WBC LM.HPF (Urine sed) [#/Area] 11 /[HPF] High 0-5 [facility] Comment on above: Order Comment: Micro scopic examination is performed on all urinalysis samples and only positive findings are reported. The test for blood on the chemical analytic portion of urinalysis may also be positive due to hemoglobinuria and myoglobinuria and if red blood cells are present they are quantified by microscopic examination. Performed By: #### L [id number] #### [facility] [address] [address] Bhupendra Márquez M.D. [id number] URINE AEROBIC CULTUREon 10-08 URINE AEROBIC CULTURE URINE CULTURE CITROBACTER FREUNDII GROUP >100,000 CFU/mL Citrobacter freundii group Organism: CITROBACTER FREUNDII GROUP Antibiotic Interpretation PATEL Status Ceftriaxone Susc Islt S <=0.25 F Cefepime Susc Islt S <=0.12 F Pip+Tazo Susc Islt S <=4 F Aztreonam Susc Islt S <=1 F Gentamicin Susc Islt S <=1 F Tobramycin Susc Islt S <=1 F Amikacin Susc Islt S <=1 F Ciprofloxacin Susc Islt S <=0.06 F AVOID fluoroquinolone treatment whenever possible. Risk of serious side effects may outweigh benefit. Levofloxacin Susc Islt S <=0.12 F TMP SMX Susc Islt S <=20 F Nitrofurantoin Susc Islt S <=16 F Abnormal [facility] Comment on above: Performed By: #### L [id number] #### [facility] [address] [place], [place] [address] Bhupendra Márquez M.D. [id number] UrinalysisOrdered By: Heather padilla on 11-02-2024 Bacteria Auto Ql (U) Rare Abnormal None Seen /hpf [facility] Bilirubin Ql (U) Negative Negative [facility] th Clarity Refractometry automated (U) Clear Clear [facility] Color (U) Yellow Colorless, Yellow [facility] Epithelial cells.squamous Auto (Urine sed) [#/Area] [facility] Glucose Auto test strip (U) [Mass/Vol] Negative Negative mg/dL [facility] Hemoglobin Auto test strip Ql (U) Small Abnormal Negative [facility] Interpretation and review of laboratory results Abnormal [facility] Ketones (U) [Mass/Vol] Negative Negative mg/dL [facility] Leukocyte esterase Auto test strip Ql (U) Moderate Abnormal Negative [facility] Nitrite Auto test strip Ql (U) Positive Abnormal Negative [facility] pH (U) 7 [pH] 5.0 - 7.0 [facility] Protein (U) [Mass/Vol] Negative Negative mg/dL [facility] RBC Auto (Urine sed) [#/Area] 2 [facility] Specific gravity (U) [Rel density] 1.006 1.005 - 1.025 [facility] Urobilinogen (U) [Mass/Vol] mg/dL NINF - 2.0 mg/dL [facility] WBC Auto (Urine sed) [#/Area] 11 High [facility] Microscopic examinat ion is performed on all urinalysis samples and only positive findings are reported. The test for blood on the chemical analytic portion of urinalysis may also be positive due to hemoglobinuria and myoglobinuria and if red blood cells are present they are quantified by microscopic examination. [facility] XR CHEST PA/APon 11-02-2024 XR CHEST PA/AP EXAMINATION: XR CHEST PA/AP 11/02/2024 3:38 pm HISTORY: ORDERING SYSTEM PROVIDED HISTORY: weakness, TECHNOLOGIST PROVIDED HISTORY: Illness/Other Reason for exam: blurred vision Cancer History: skin cancer, carcinoid tumor small intestine Surgery, RadiationHistory: u Encounter Type: Initial Additional signs and symptoms: u ORDERING SYSTEM PROVIDED DIAGNOSIS CODES: COMPARISON: 03/16/2024 FINDINGS: Heart is normal in size. Vascularity is unremarkable. Old rib fractures are noted on the right posterolaterally. Atherosclerotic changes of the thoracic aorta are noted. Spondylosis of the spine is noted. Atherosclerotic changes of the thoracic aorta are noted. EKG leads overlie the chest. IMPRESSION: 1. No acute heart or lung disease identified. 2. Old rib fractures on the right. Workstation ID: [id number] Dictated by: CATE PARTIDA on ThuNov 02, 2024 4:05:32 PM EDT Transcribed by: CATE PARTIDA on ThuNov 02, 2024 4:05:32 PM EDT Finalized by: CATE PARTIDA on ThuNov 02, 2024 4:05:32 PM EDT [facility] Comment on above: Order Comment: Injur y/Trauma or Illness?:Illness/OtherHow long have you had these symptoms (acute/chronic)?:AcuteReason for exam?:blurred visionHistory of cancer?:skin cancer, carcinoid tumor small intestineSurgeries, chemotherapy, or radiation?:uType of Exam?:InitialAdditional signs and symptoms?:u XR Chest PA and Abdomen APon 11-02-2024 1. No acute heart or lung disease identified. 2. Old rib fractures on the right. Workstation ID: [id number] [facility] EXAMINATION: XR CHEST PA/AP 11/02/2024 3:38 pm HISTORY: ORDERING SYSTEM PROVIDED HISTORY: weakness, TECHNOLOGIST PROVIDED HISTORY: Illness/Other Reason for exam: blurred vision Cancer History: skin cancer, carcinoid tumor small intestine Surgery, RadiationHistory: u Encounter Type: Initial Additional signs and symptoms: u ORDERING SYSTEM PROVIDED DIAGNOSIS CODES: COMPARISON: 03/16/2024 FINDINGS: Heart is normal in size. Vascularity is unremarkable. Old rib fractures are noted on the right posterolaterally. Atherosclerotic changes of the thoracic aorta are noted. Spondylosis of the spine is noted. Atherosclerotic changes of the thoracic aorta are noted. EKG leads overlie the chest. [facility] Cate Partida MD - 11/02/2024 EXAMINATION: XR CHEST PA/AP 11/02/2024 3:38 pm HISTORY: ORDERING SYSTEM PROVIDED HISTORY: weakness, TECHNOLOGIST PROVIDED HISTORY: Illness/Other Reason for exam: blurred vision Cancer History: skin cancer, carcinoid tumor small intestine Surgery, RadiationHistory: u Encounter Type: Initial Additional signs and symptoms: u ORDERING SYSTEM PROVIDED DIAGNOSIS CODES: COMPARISON: 03/16/2024 FINDINGS: Heart is normal in size. Vascularity is unremarkable. Old rib fractures are noted on the right posterolaterally. Atherosclerotic changes of the thoracic aorta are noted. Spondylosis of the spine is noted. Atherosclerotic changes of the thoracic aorta are noted. EKG leads overlie the chest. IMPRESSION: 1. No acute heart or lung disease identified. 2. Old rib fractures on the right. Workstation ID: [id number] [facility] Radiology Study observation (narrative) [facility] XR Chest PA and Abdomen APOr dered By: Cate Partida on 11-02-2024 [facility] Work Phone: COVID-19, MOLECULARon 2024 SARS-CoV-2 (COVID-19) Ab IA Ql Not detected Normal Not Detected [facility] Comment on above: Result Comment: Test ing was performed using the Ram ID NOW COVID-19 assay on the ID NOW platform. This test has not been approved for use in asymptomatic patients and its performance in this patient population has not been evaluated. Negative results do not rule out the presence of SARS-CoV-2/COVID-19. CT ANGIOGRAM HEAD NECKon CT ANGIOGRAM HEAD NECK EXAMINATION: CT ANGIOGRAM HEAD NECK HISTORY: Vision loss, binocular 03/20[address] [facility] [address] OFFICE POLICY SIGNED Injury/Trauma or Illness?:Illness/Other How long have you had these symptoms (acute/chronic)?:Acute Reason for exam?:dizziness Type of Exam?:Initial R42 Dizziness03/[address] [facility] [address] OFFICE POLICY SIGNED Injury/Trauma or Illness?:Illness/OtherVisio n loss, binocular COMPARISON: CT head and facial bones dated 03/16/2024. CT dated 07/07/2023. TECHNIQUE: CT angiogram of the head and neck was performed. Coronal, sagittal and 3-D reformats were created and reviewed. Carotid stenosis measurements were made according to the NASCET criteria. Dose reduction techniques were achieved by using automated exposure control and/or adjustment of mA and/or kV according to patient size and/or use of iterative reconstruction technique CONTRAST: 75 mL of Isovue 370 FINDINGS: NECK: AORTIC ARCH: Normal origin of the innominate, left common carotid and left subclavian arteries. ANTERIOR CIRCULATION:Common carotid arteries are patent. Carotid bifurcations are patent. No flow-limiting stenosis. Cervical ICA are patent up to the skull base. Tortuosity on the left. POSTERIOR CIRCULATION: The V1, V2, and V3 segments of the vertebral arteries are patent. DEVELOPMENTAL ANOMALIES: None. OTHER: There is an inhomogeneous appearance of the thyroid gland with multiple nodules including calcified and noncalcified septated masses. Consider nonemergent thyroid ultrasound if clinically appropriate. Cervical spondylosis is present. HEAD BRAIN: No intraparenchymal or extra-axial hemorrhage. No mass effect. No midline shift or herniation. There is patchy and confluent low-density in the white matter without mass effect. 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 Ventricles and extraventricular spaces are normal for patient's age. No hyperdense intraluminal thrombus is present. Vascular calcifications are noted. The sinuses are clear. The mastoids and middle ears are clear. No displaced or depressed calvarial fracture. Hyperostosis frontalis is noted. ANTERIOR CIRCULATION: The intra petrous, intra cavernous, and supraclinoid ICA are patent. The intracranial termini are patent. RICKY patent bilaterally. MCA patent bilaterally. No stenosis or thrombus. No large vessel occlusion. No aneurysm is present. The distal distributions are bilaterally symmetric. POSTERIOR CIRCULATION: V4 segments are patent. PICA patent on the left. AICA patent on the right. Basilar artery and basilar tip are patent. SCA patent bilaterally. ADJUNCT TRAINER patent bilaterally. No stenosis or thrombus. No large vessel occlusion. There are short segment areas of mild to moderate stenosis in the distal P2 and P3 segment of the ADJUNCT TRAINER on the left. No flow-limiting stenosis or occlusion. DEVELOPMENTAL ANOMALIES: None. OTHER: No pathologic enhancing lesions are appreciated. Although the study is not optimized for evaluation the intracranial veins, no large vessel venous occlusion is seen. IMPRESSION: 1. Intracranial extracranial vessels demonstrate no flow-limiting stenosis, thrombus, dissection, aneurysm, or large vessel occlusion. There are short segment mild to moderate stenoses in the P2 and P3 segments of the ADJUNCT TRAINER on the left. No occlusion or thrombus. 2. No acute intracranial abnormality. No hemorrhage or mass effect. 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 If there is concern for acute infarction, then MRI including diffusion imaging would be more sensitive. Workstation ID: [id number] Dictated by: NENA STAHL on ThuOct 31, 2024 3:09:27 AM EDT Transcribed by: NENA STAHL on ThuOct 31, 2024 3:09:27 AM EDT Finalized by: NENA STAHL on ThuOct 31, 2024 3:09:27 AM EDT [facility] Comment on above: Order Comment: Injur y/Trauma or Illness?:Illness/Other How long have you had these symptoms (acute/chronic)?:Acute Reason for exam?:dizziness Type of Exam?:Initial Additional signs and symptoms?:dizziness ED Prov Noteon 10-31-2024 ED Prov Note ED PROVIDER NOTE [facility] NAME: Cat Carroll AGE: 89 y.o. : 1935 VISIT DATE: 10/31/2024 CSN: [id number] PCP: Claudine Majano MD Chief Complaint Patient presents with Dizziness Chief complaint dizziness History of present illness 89-year-old female who has had a past medical history of vertigo she is on Antivert for this she has been having issues since September with dizziness. 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 Cabrera donna. Dr Hinds BLADDER REPAIR 1989 CATARACT EXT/ECCE Bilateral 2011 Dr [place] CHOLECYSTECTOMY CYST REMOVAL Right 2000 cyst removal from rt breast-benign DILATION AND CURETTAGE (D AND C) 1970 x 2 EGD 01/01/2015 Dr. ZavalaPglbww-Cfmvxuggv-Lmlaqrg's esophagus EGD 08/2014 Dr. Vinicius Pruett-Barrett's esophagitis biopsies negative for dysplasia. ESOPHAGOGASTRODUODENOSCOPY 01/04/2018 Dr. Zavala -biopsies performed-Kelly's esophagitis-carcinoid tumor posterior wall duodenum FRACTURE SURGERY Right Plates and screws in rt arm after fracture. dr Dolan LEFT HEART CATH N/A 08/23/2018 Procedure: Left Heart Cath; Surgeon: Glen Fair MD; Location: [facility]; Service: Cardiovascular HYSTERECTOMY 1975 KIDNEY SURGERY 1969 had exploratory surgery d/t floating kidney Dx KNEE SURGERY Left 1997 left knee arthoscopy LUMPECTOMY Left 1989 benign ORIF HIP GAMMA NAIL Right 04/02/2020 IN DSTR NROLYTC AGNT PARVERTEB FCT ADDL LMBR/SACRAL Bilateral 01/21/2024 Procedure: Lumbar medial branch nerve radiofrequency ablation, bilateral lumbar 1-2-3; Surgeon: Jake Navarro DO; Location: Main OR; Service: Pain Management IN DSTR NROLYTC AGNT PARVERTEB FCT SNGL LMBR/SACRAL Bilateral 01/21/2024 Procedure: Lumbar medial branch nerve radiofrequency ablation, bilateral lumbar 1-2-3; Surgeon: Jake Navarro DO; Location: Main OR; Service: Pain Management IN NJX DX/THER AGT PVRT FACET JT LMBR/SAC 1 LEVEL Bilateral 06/18/2023 Procedure: Lumbar medial branch nerve blocks, bilateral lumbar 2-3-4; Surgeon: Jake Navarro DO; Location: Main OR; Service: Pain Management IN NJX DX/THER AGT PVRT FACET JT LMBR/SAC 1 LEVEL Bilateral 07/02/2023 Procedure: Lumbar medial branch nerve blocks, bilateral lumbar 2-3-4; Surgeon: Jake Navarro DO; Location: Main OR; Service: Pain Management SQUAMOUS CELL CARCINOMA EXCISION x4 TOTAL KNEE ARTHROPLASTY Left 2013 dr dolan TUMOR REMOVAL 2012 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 Family History Problem Relation Age of Onset Diabetes Mother Heart disease Mother Heart disease Father Stroke Father Diabetes Sister Dementia Sister Heart disease Brother Diabetes Brother Diabetes Maternal Uncle Bipolar disorder Daughter Diabetes Son Cancer Neg Hx Aneurysm Neg Hx Seizures Neg Hx Social History [1] Previous Medications Medication Sig ondansetron (ZOFRAN-ODT) 8 MG disintegrating tablet Dissolve 1 (one) tablet (8 mg total) on top of tongue every 8 (eight) hours as needed for nausea . (Patient not taking: Reported on 11/02/2024 .) aspirin (ECOTRIN ORAL) Take 81 mg by mouth every morning . atorvastatin (LIPITOR) 40 MG tablet Take 1 (one) tablet (40 mg total) by mouth nightly . colestipoL (COLESTID) 1 gram tablet Take 2 (two) tablets (2 g total) by mouth daily with lunch . D-MANNOSE ORAL Take 2 capsules by mouth daily in the afternoon . estradioL (ESTRACE) 0.01 % (0.1 mg/gram) vaginal cream Insert 2 (two) g into the vagina daily . furosemide (LASIX) 20 MG tablet Take 1 (one) tablet (20 mg total) by mouth daily . lamoTRIgine (LAMICTAL) 200 MG tablet Take 1.5 (one and a half) tablets (300 mg total) by mouth 2 (two) times a day . losartan (Cozaar) 50 MG tablet Take 1 (one) tablet (50 mg total) by mouth daily . meclizine (ANTIVERT) 25 MG chewable tablet Chew and Swallow 1 (one) tablet (25 mg total) 3 (three) times a day as needed for nausea or dizziness . (Patient not taking: Reported on 11/02/2024 .) methadone (MAT (more content not included)... Normal [facility] POC BASIC METABOLIC PANEL - Debbie 10-31-2024 Chloride [Moles/Vol] 104 mmol/L Normal 98-108 [facility] Comment on above: Order Comment: Injur y/Trauma or Illness?:Illness/Other How long have you had these symptoms (acute/chronic)?:Acute Reason for exam?:dizziness Type of Exam?:Initial Additional signs and symptoms?:dizziness CO2 [Moles/Vol] 28 mmol/L Normal 21-32 [facility] Comment on above: Order Comment: Injur y/Trauma or Illness?:Illness/Other How long have you had these symptoms (acute/chronic)?:Acute Reason for exam?:dizziness Type of Exam?:Initial Additional signs and symptoms?:dizziness Creatinine [Mass/Vol] 1.13 mg/dL Normal 0.60-1.20 [facility] Comment on above: Order Comment: Injur y/Trauma or Illness?:Illness/Other How long have you had these symptoms (acute/chronic)?:Acute Reason for exam?:dizziness Type of Exam?:Initial Additional signs and symptoms?:dizziness Glucose [Mass/Vol] 112 mg/dL High 65-99 [facility] Comment on above: Order Comment: Injur y/Trauma or Illness?:Illness/Other How long have you had these symptoms (acute/chronic)?:Acute Reason for exam?:dizziness Type of Exam?:Initial Additional signs and symptoms?:dizziness POC GFR 47 mL/min/1.73 m2 Low >=60 [facility] Comment on above: Order Comment: Injur y/Trauma or Illness?:Illness/Other How long have you had these symptoms (acute/chronic)?:Acute Reason for exam?:dizziness Type of Exam?:Initial Additional signs and symptoms?:dizziness Result Comment: Danielle mated GFR was calculated using the 2020 CKD-EPI creatinine equation. POC IONIZED CALCIUM 5.0 mg/dL Normal 4.5-5.3 [facility] Comment on above: Order Comment: Injur y/Trauma or Illness?:Illness/Other How long have you had these symptoms (acute/chronic)?:Acute Reason for exam?:dizziness Type of Exam?:Initial Additional signs and symptoms?:dizziness Potassium [Moles/Vol] 3.8 mmol/L Normal 3.5-5.1 [facility] Comment on above: Order Comment: Injur y/Trauma or Illness?:Illness/Other How long have you had these symptoms (acute/chronic)?:Acute Reason for exam?:dizziness Type of Exam?:Initial Additional signs and symptoms?:dizziness Sodium [Moles/Vol] 141 mmol/L Normal 135-145 [facility] Comment on above: Order Comment: Injur y/Trauma or Illness?:Illness/Other How long have you had these symptoms (acute/chronic)?:Acute Reason for exam?:dizziness Type of Exam?:Initial Additional signs and symptoms?:dizziness Urea nitrogen [Mass/Vol] 17 mg/dL Normal 8-25 [facility] Comment on above: Order Comment: Injur y/Trauma or Illness?:Illness/Other How long have you had these symptoms (acute/chronic)?:Acute Reason for exam?:dizziness Type of Exam?:Initial Additional signs and symptoms?:dizziness CO2 [Moles/Vol] 29 mmol/L Normal 21-32 [facility] Comment on above: Order Comment: [facility] has implemented the eGFR calculation approach that does not have a coefficient for race that conforms to the NKF-ASN Task Force Recommendations. Glucose [Mass/Vol] 111 mg/dL High 65-99 [facility] Comment on above: Order Comment: [facility] has implemented the eGFR calculation approach that does not have a coefficient for race that conforms to the NKF-ASN Task Force Recommendations. POC BUN [facility] Comment on above: Order Comment: [facility] has implemented the eGFR calculation approach that does not have a coefficient for race that conforms to the NKF-ASN Task Force Recommendations. Result Comment: Resu lt unable to be determined. POC CHLORIDE [facility] Comment on above: Order Comment: [facility] has implemented the eGFR calculation approach that does not have a coefficient for race that conforms to the NKF-ASN Task Force Recommendations. Result Comment: Resu lt unable to be determined. POC CREATININE (EPOC) [facility] Comment on above: Order Comment: [facility] has implemented the eGFR calculation approach that does not have a coefficient for race that conforms to the NKF-ASN Task Force Recommendations. Result Comment: Resu lt unable to be determined. POC GFR [facility] Comment on above: Order Comment: [facility] has implemented the eGFR calculation approach that does not have a coefficient for race that conforms to the NKF-ASN Task Force Recommendations. Result Comment: Danielle mated GFR was calculated using the 2020 CKD-EPI creatinine equation. POC IONIZED CALCIUM 4.7 mg/dL Normal 4.5-5.3 [facility] Comment on above: Order Comment: [facility] has implemented the eGFR calculation approach that does not have a coefficient for race that conforms to the NKF-ASN Task Force Recommendations. POC SODIUM Normal [facility] Comment on above: Order Comment: [facility] has implemented the eGFR calculation approach that does not have a coefficient for race that conforms to the NKF-ASN Task Force Recommendations. Result Comment: Resu lt unable to be determined. Potassium [Moles/Vol] 3.8 mmol/L Normal 3.5-5.1 [facility] Comment on above: Order Comment: [facility] has implemented the eGFR calculation approach that does not have a coefficient for race that conforms to the NKF-ASN Task Force Recommendations. POC CBC AND DIFFERENTIALon 0 10-31-2024 BASOPHILS ABSOLUTE COUNT 0.02 K/mcL Normal 0.00-0.30 [facility] Basophils/100 WBC (Bld) 0.3 % Normal [facility] Eosinophils (Bld) [#/Vol] 0.09 10*3/uL Normal 0.00-0.50 [facility] Eosinophils/100 WBC (Bld) 1.3 % Normal [facility] Erythrocyte distribution width (RBC) [Ratio] 13.6 % Normal 11.6-14.8 [facility] Hematocrit (Bld) [Volume fraction] 37.7 % Normal 36.0-46.0 [facility] Hemoglobin (Bld) [Mass/Vol] 12.1 g/dL Normal 12.0-16.0 [facility] IG ABSOLUTE 0.01 K/mcL Normal 0.00-0.30 [facility] IG PERCENT 0.10 % Normal [facility] Comment on above: Result Comment: The IG parameter is the percentage of metamyelocytes, myelocytes and promyelocytes. An immature granulocyte count (IG) of 1% or more suggests the possibility of infection, an IG count of 3% is very likely related to an infection. Lymphocytes (Bld) [#/Vol] 3.27 10*3/uL Normal 0.90-4.00 [facility] Lymphocytes/100 WBC (Bld) 45.9 % Normal [facility] MCH (RBC) [Entitic mass] 30.5 pg Normal 26.0-34.0 [facility] MCV (RBC) [Entitic vol] 95.0 fL Normal 80.0-100.0 [facility] MEAN CORPUSCULAR HEMOGLOBIN CONC 32.1 g/dL Normal 31.0-37.0 [facility] Monocytes (Bld) [#/Vol] 0.67 10*3/uL Normal 0.30-0.90 [facility] Monocytes/100 WBC (Bld) 9.4 % Normal [facility] NEUTROPHILS ABSOLUTE COUNT 3.07 K/mcL Normal 1.70-7.00 [facility] Neutrophils/100 WBC (Bld) 43.0 % Normal [facility] Platelet mean volume (Bld) [Entitic vol] 9.6 fL Normal 9.4-12.4 [facility] Platelets (Bld) [#/Vol] 151 10*3/uL Normal 150-400 [facility] RBC (Bld) [#/Vol] 3.97 10*6/uL Low 4.00-5.20 [facility] WBC (Bld) [#/Vol] 7.13 10*3/uL Normal 4.50-11.00 [facility] POC INFLUENZA A/B - [facility] 0 10-31-2024 POC INFLUENZA A (FSED) Not detected Normal Not Detected [facility] POC INFLUENZA B (FSED) Not detected Normal Not Detected [facility] POC TROPONIN I [facility] 2024 POC TROPONIN I < Normal <0.05 [facility] CBC W Auto Differential pane l (Bld)on 10-27-2024 Basophils (Bld) [#/Vol] 0.03 10*3/uL [facility] Basophils/100 WBC (Bld) 0.5 % 0.0 - 2.0 % [facility] Eosinophils (Bld) [#/Vol] 0.04 10*3/uL [facility] Eosinophils/100 WBC (Bld) 0.7 % 0.0 - 6.0 % [facility] Erythrocyte distribution width (RBC) [Ratio] 13.5 % 11.5 - 14.5 % [facility] Hematocrit (Bld) [Volume fraction] 37.6 % 36.0 - 46.0 % [facility] Hemoglobin (Bld) [Mass/Vol] 11.8 g/dL Low 12.0 - 16.0 g/dL [facility] Immature granulocytes (Bld) [#/Vol] 0.02 10*3/uL [facility] Immature granulocytes/100 WBC (Bld) 0.3 % 0.0 - 0.9 % [facility] Comment on above: Immature Granulocyte Count (IG) includes promyelocytes, myelocytes and metamyelocytes but does not include bands. Percent differential counts (%) should be interpreted in the context of the absolute cell counts (cells/UL). Interpretation and review of laboratory results Abnormal [facility] Lymphocytes (Bld) [#/Vol] 2.26 10*3/uL [facility] Lymphocytes/100 WBC (Bld) 37.5 % 13.0 - 44.0 % [facility] MCH (RBC) [Entitic mass] 29.6 pg 26.0 - 34.0 pg [facility] MCHC (RBC) [Mass/Vol] 31.4 g/dL Low 32.0 - 36.0 g/dL [facility] MCV (RBC) [Entitic vol] 94 fL 80 - 100 fL [facility] Monocytes (Bld) [#/Vol] 0.37 10*3/uL [facility] Monocytes/100 WBC (Bld) 6.1 % 2.0 - 10.0 % [facility] Neutrophils (Bld) [#/Vol] 3.31 10*3/uL [facility] Comment on above: Percent differential counts (%) should be interpreted in the context of the absolute cell counts (cells/uL). Neutrophils/100 WBC (Bld) 54.9 % 40.0 - 80.0 % [facility] Nucleated RBC/100 WBC (Bld) [Ratio] 0.0 % [facility] Platelets (Bld) [#/Vol] 175 10*3/uL [facility] RBC (Bld) [#/Vol] 3.99 10*6/uL Low [facility] WBC (Bld) [#/Vol] 6.0 10*3/uL [facility] Basophils (Bld) [#/Vol] 0.03 x10*3/uL Normal 0.00-0.10 [facility] Comment on above: Performed By: #### 5 7021-8 #### MARLENI KNIGHT ([id number]) [facility] ([facility]) [address] [place] [id number] Basophils/100 WBC (Bld) 0.5 % Normal 0.0-2.0 [facility] Comment on above: Performed By: #### 7021-8 #### MARLENI KNIGHT ([id number]) [facility] ([facility]) [address] [place] [id number] Eosinophils (Bld) [#/Vol] 0.04 x10*3/uL Normal 0.00-0.40 [facility] Comment on above: Performed By: #### 5 7021-8 #### MARLENI KNIGHT ([id number]) [facility] ([facility]) [address] [place] [address] [id number] Eosinophils/100 WBC (Bld) 0.7 % Normal 0.0-6.0 [facility] Comment on above: Performed By: #### 7021-8 #### MARLENI KNIGHT ([id number]) [facility] ([facility]) [address] [place] [id number] Erythrocyte distribution width (RBC) [Ratio] 13.5 % Normal 11.5-14.5 [facility] Comment on above: Performed By: #### 5 7021-8 #### MARLENI KNIGHT ([id number]) [facility] ([facility]) [address] [place] [address] [id number] Hematocrit (Bld) [Volume fraction] 37.6 % Normal 36.0-46.0 [facility] Comment on above: Performed By: #### 7021-8 #### MARLENI KNIGHT ([id number]) [facility] ([facility]) [address] [place] [phone] Hemoglobin (Bld) [Mass/Vol] 11.8 g/dL Low 12.0-16.0 [facility] Comment on above: Performed By: #### 7021-8 #### MARLENI KNIGHT ([id number]) [facility] ([facility]) [address] [place] [address] 34325 Immature granulocytes (Bld) [#/Vol] 0.02 x10*3/uL Normal 0.00-0.50 [facility] Comment on above: Performed By: #### 5 7021-8 #### MARLENI KNIGHT ([id number]) [facility] ([facility]) [address] [place] [address] 86566 Immature granulocytes/100 WBC (Bld) 0.3 % Normal 0.0-0.9 [facility] Comment on above: Result Comment: Alina ture Granulocyte Count (IG) includes promyelocytes, myelocytes and metamyelocytes but does not include bands. Percent differential counts (%) should be interpreted in the context of the absolute cell counts (cells/UL). Performed By: #### 5 7021-8 #### MARLENI KNIGHT ([id number]) [facility] ([facility]) [address] [place] [address] 35309 Lymphocytes (Bld) [#/Vol] 2.26 x10*3/uL Normal 0.80-3.00 [facility] Comment on above: Performed By: #### 5 7021-8 #### MARLENI KNIGHT ([id number]) [facility] ([facility]) [address] [place] [address] 39257 Lymphocytes/100 WBC (Bld) 37.5 % Normal 13.0-44.0 [facility] Comment on above: Performed By: #### 5 7021-8 #### MARLENI KNIGHT ([id number]) [facility] ([facility]) [address] [place] [address] 83393 MCH (RBC) [Entitic mass] 29.6 pg Normal 26.0-34.0 [facility] Comment on above: Performed By: #### 5 7021-8 #### MARLENI KNIGHT ([id number]) [facility] ([facility]) [address] [place] [address] 74275 MCHC (RBC) [Mass/Vol] 31.4 g/dL Low 32.0-36.0 [facility] Comment on above: Performed By: #### 5 7021-8 #### MARLENI KNIGHT ([id number]) [facility] ([facility]) [address] [place] [address] 04165 MCV (RBC) [Entitic vol] 94 fL Normal 80-100 [facility] Comment on above: Performed By: #### 5 7021-8 #### MARLENI KNIGHT ([id number]) [facility] ([facility]) [address] [place] [address] 93280 Monocytes (Bld) [#/Vol] 0.37 x10*3/uL Normal 0.05-0.80 [facility] Comment on above: Performed By: #### 5 7021-8 #### MARLENI KNIGHT ([id number]) [facility] ([facility]) [address] [place] [address] 05138 Monocytes/100 WBC (Bld) 6.1 % Normal 2.0-10.0 [facility] Comment on above: Performed By: #### 5 7021-8 #### MARLENI KNIGHT ([id number]) [facility] ([facility]) [address] [place] [address] 72884 Neutrophils (Bld) [#/Vol] 3.31 x10*3/uL Normal 1.60-5.50 [facility] Comment on above: Result Comment: Perc ent differential counts (%) should be interpreted in the context of the absolute cell counts (cells/uL). Performed By: #### 5 7021-8 #### MARLENI KNIGHT ([id number]) [facility] ([facility]) [address] [place] [address] 73968 Neutrophils/100 WBC (Bld) 54.9 % Normal 40.0-80.0 [facility] Comment on above: Performed By: #### 5 7021-8 #### MARLENI KNIGHT ([id number]) [facility] ([facility]) [address] [place] [address] 02759 Nucleated RBC/100 WBC (Bld) [Ratio] 0.0 /100 WBCs Normal 0.0-0.0 [facility] Comment on above: Performed By: #### 5 7021-8 #### MARLENI KNIGHT ([id number]) [facility] ([facility]) [address] [place] [address] Platelets (Bld) [#/Vol] 175 x10*3/uL Normal 150-450 [facility] Comment on above: Performed By: #### 5 7021-8 #### MARLENI KNIGHT ([id number]) [facility] ([facility]) [address] [place] [address] RBC (Bld) [#/Vol] 3.99 x10*6/uL Low 4.00-5.20 [facility] Comment on above: Performed By: #### 5 7021-8 #### MARLENI KNIGHT ([id number]) [facility] ([facility]) [address] [place] [address] WBC (Bld) [#/Vol] 6.0 x10*3/uL Normal 4.4-11.3 [facility] Comment on above: Performed By: #### 5 7021-8 #### MARLENI KNIGHT ([id number]) [facility] ([facility]) [address] [place] [address] CT ABDOMEN PELVIS W IV CONTR Ab 10-27-2024 CT ABDOMEN PELVIS W IV CONTRAST STUDY: CT Abdomen and Pelvis with IV Contrast; 10/27/2024, 12:17 INDICATION: 89-year-old female with nausea/vomiting. COMPARISON: 12/25/2020 CT Abdomen and Pelvis. ACCESSION NUMBER(S): [id number] ORDERING CLINICIAN: LIZETH COMER TECHNIQUE: CT of the abdomen and pelvis was performed. Contiguous axial images were obtained at 3 mm slice thickness through the abdomen and pelvis. Coronal and sagittal reconstructions at 3 mm slice thickness were performed. Omnipaque-350, 69 cm3 was administered intravenously. RADIATION DOSE, PSD: 716 mGy-cm. FINDINGS: Chest base: Lung bases show extensive chronic changes typical of parenchymal scarring, only minimal subsegmental atelectasis. Heart is not enlarged, no pericardial effusion, however there are coronary artery moderate atherosclerotic changes. Distal esophagus is normal. Abdomen: TOPOGRAM: Negative. LIVER: No hepatomegaly, smooth surface contour. Normal attenuation. Liver left lobe, medial segment-superior (Couinaud segment #4a/8), 1 cm small lesion, unchanged from June 2018, typical in appearance for hemangioma. There are scattered small cysts seen throughout the liver, no other liver mass. BILE DUCTS: No intrahepatic or extrahepatic biliary ductal dilatation; although there is biliary tract ectasia, as would be expected post cholecystectomy. GALLBLADDER: The gallbladder is surgically absent. STOMACH: No abnormalities identified. PANCREAS: No masses or ductal dilatation. SPLEEN: No splenomegaly or focal splenic lesion. Spleen calcifications typical for granulomatous disease. ADRENAL GLANDS: No thickening or nodules. KIDNEYS AND URETERS: Kidneys are normal in size and location. No renal or ureteral calculi. Bilateral kidneys with no cortical mass, however there are with multiple central parapelvic cysts, typical for kidney dilated lymphatics, no hydronephrosis or hydroureter. Pelvis: TOPOGRAM: Lower lumbar sacral spine, L5-S1 bilateral pedicle screws/parasagittal fusion rods. Right hip dynamic screw, right femur medullary linus in place. BLADDER: No abnormalities identified. REPRODUCTIVE ORGANS: Uterus surgically absent; no adnexal masses. BOWEL: No abnormalities identified, although in the pelvis there is significant artifact from lower lumbar sacral spine, pedicle screws/parasagittal fusion rods. VESSELS: No abnormalities identified. Abdominal aorta is normal in caliber. PERITONEUM/RETROPERITONEUM/ LYMPH NODES: No free fluid. No pneumoperitoneum. No lymphadenopathy. ABDOMINAL WALL: No abnormalities identified. SOFT TISSUES: No abnormalities identified. BONES: No acute fracture or aggressive osseous lesion. Pelvis demonstrates multiple old fractures, as well as right hip femoral neck fracture, post ORIF dynamic screw/medullary linus. IMPRESSION: 1. No intra-abdominal or intrapelvic pathology that would indicate potential causes of nausea/vomiting. 2. 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 3. Kidneys with multiple parapelvic cysts, no hydronephrosis/hydroureter. 4. Pelvis shows uterus surgically absent, lower lumbar sacral spine fusion apparatus. 5. Pelvis demonstrates multiple old probable insufficiency fractures, lower lumbar sacral spine pedicle screws/fusion apparatus, right hip ORIF, dynamic screw. Signed by Vasquez Randhawa MD [facility] CT Abdomen and Pelvis W cont rast Shaista 10-27-2024 1. No intra-abdomina l or intrapelvic pathology that would indicate potential causes of nausea/vomiting. 2. 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 3. Kidneys with multiple parapelvic cysts, no hydronephrosis/hydroureter. 4. Pelvis shows uterus surgically absent, lower lumbar sacral spine fusion apparatus. 5. Pelvis demonstrates multiple old probable insufficiency fractures, lower lumbar sacral spine pedicle screws/fusion apparatus, right hip ORIF, dynamic screw. Signed by Vasquez Randhawa MD TELERADIOLOGY STUDY: CT Abdomen and Pelvis with IV Contrast; 10/27/2024, 12:17 INDICATION: 89-year-old female with nausea/vomiting. COMPARISON: 12/25/2020 CT Abdomen and Pelvis. ACCESSION NUMBER(S): [id number] ORDERING CLINICIAN: LIZETH COMER TECHNIQUE: CT of the abdomen and pelvis was performed. Contiguous axial images were obtained at 3 mm slice thickness through the abdomen and pelvis. Coronal and sagittal reconstructions at 3 mm slice thickness were performed. Omnipaque-350, 69 cm3 was administered intravenously. RADIATION DOSE, PSD: 716 mGy-cm. FINDINGS: Chest base: Lung bases show extensive chronic changes typical of parenchymal scarring, only minimal subsegmental atelectasis. Heart is not enlarged, no pericardial effusion, however there are coronary artery moderate atherosclerotic changes. Distal esophagus is normal. Abdomen: TOPOGRAM: Negative. LIVER: No hepatomegaly, smooth surface contour. Normal attenuation. Liver left lobe, medial segment-superior (Couinaud segment #4a/8), 1 cm small lesion, unchanged from June 2018, typical in appearance for hemangioma. There are scattered small cysts seen throughout the liver, no other liver mass. BILE DUCTS: No intrahepatic or extrahepatic biliary ductal dilatation; although there is biliary tract ectasia, as would be expected post cholecystectomy. GALLBLADDER: The gallbladder is surgically absent. STOMACH: No abnormalities identified. PANCREAS: No masses or ductal dilatation. SPLEEN: No splenomegaly or focal splenic lesion. Spleen calcifications typical for granulomatous disease. ADRENAL GLANDS: No thickening or nodules. KIDNEYS AND URETERS: Kidneys are normal in size and location. No renal or ureteral calculi. Bilateral kidneys with no cortical mass, however there are with multiple central parapelvic cysts, typical for kidney dilated lymphatics, no hydronephrosis or hydroureter. Pelvis: TOPOGRAM: Lower lumbar sacral spine, L5-S1 bilateral pedicle screws/parasagittal fusion rods. Right hip dynamic screw, right femur medullary linus in place. BLADDER: No abnormalities identified. REPRODUCTIVE ORGANS: Uterus surgically absent; no adnexal masses. BOWEL: No abnormalities identified, although in the pelvis there is significant artifact from lower lumbar sacral spine, pedicle screws/parasagittal fusion rods. VESSELS: No abnormalities identified. Abdominal aorta is normal in caliber. PERITONEUM/RETROPERITONEUM/ LYMPH NODES: No free fluid. No pneumoperitoneum. No lymphadenopathy. ABDOMINAL WALL: No abnormalities identified. SOFT TISSUES: No abnormalities identified. BONES: No acute fracture or aggressive osseous lesion. Pelvis demonstrates multiple old fractures, as well as right hip femoral neck fracture, post ORIF dynamic screw/medullary linus. TELERADIOLOGY Vasquez Randhawa M D - 10/27/2024 STUDY: CT Abdomen and Pelvis with IV Contrast; 10/27/2024, 12:17 INDICATION: 89-year-old female with nausea/vomiting. COMPARISON: 12/25/2020 CT Abdomen and Pelvis. ACCESSION NUMBER(S): [id number] ORDERING CLINICIAN: LIZETH COMER TECHNIQUE: CT of the abdomen and pelvis was performed. Contiguous axial images were obtained at 3 mm slice thickness through the abdomen and pelvis. Coronal and sagittal reconstructions at 3 mm slice thickness were performed. Omnipaque-350, 69 cm3 was administered intravenously. RADIATION DOSE, PSD: 716 mGy-cm. FINDINGS: Chest base: Lung bases show extensive chronic changes typical of parenchymal scarring, only minimal subsegmental atelectasis. Heart is not enlarged, no pericardial effusion, however there are coronary artery moderate atherosclerotic changes. Distal esophagus is normal. Abdomen: TOPOGRAM: Negative. LIVER: No hepatomegaly, smooth surface contour. Normal attenuation. Liver left lobe, medial segment-superior (Couinaud segment #4a/8), 1 cm small lesion, unchanged from June 2018, typical in appearance for hemangioma. There are scattered small cysts seen throughout the liver, no other liver mass. BILE DUCTS: No intrahepatic or extrahepatic biliary ductal dilatation; although there is biliary tract ectasia, as would be expected post cholecystectomy. GALLBLADDER: The gallbladder is surgically absent. STOMACH: No abnormalities identified. PANCREAS: No masses or ductal dilatation. SPLEEN: No splenomegaly or focal splenic lesion. Spleen calcifications typical for granulomatous disease. ADRENAL GLANDS: No thickening or nodules. KIDNEYS AND URETERS: Kidneys are normal in size and location. No renal or ureteral calculi. Bilateral kidneys with no cortical mass, however there are with multiple central parapelvic cysts, typical for kidney dilated lymphatics, no hydronephrosis or hydroureter. Pelvis: TOPOGRAM: Lower lumbar sacral spine, L5-S1 bilateral pedicle screws/parasagittal fusion rods. Right hip dynamic screw, right femur medullary linus in place. BLADDER: No abnormalities identified. REPRODUCTIVE ORGANS: Uterus surgically absent; no adnexal masses. BOWEL: No abnormalities identified, although in the pelvis there is significant artifact from lower lumbar sacral spine, pedicle screws/parasagittal fusion rods. VESSELS: No abnormalities identified. Abdominal aorta is normal in caliber. PERITONEUM/RETROPERITONEUM/ LYMPH NODES: No free fluid. No pneumoperitoneum. No lymphadenopathy. ABDOMINAL WALL: No abnormalities identified. SOFT TISSUES: No abnormalities identified. BONES: No acute fracture or aggressive osseous lesion. Pelvis demonstrates multiple old fractures, as well as right hip femoral neck fracture, post ORIF dynamic screw/medullary linus. IMPRESSION: 1. No intra-abdominal or intrapelvic pathology that would indicate potential causes of nausea/vomiting. 2. 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 3. Kidneys with multiple parapelvic cysts, no hydronephrosis/hydroureter. 4. Pelvis shows uterus surgically absent, lower lumbar sacral spine fusion apparatus. 5. Pelvis demonstrates multiple old probable insufficiency fractures, lower lumbar sacral spine pedicle screws/fusion apparatus, right hip ORIF, dynamic screw. Signed by Vasquez Randhawa MD [facility] Work Phone: Radiology Study observation (narrative) [facility] Work Phone: CT Abdomen and Pelvis W cont rast IVOrdered By: Vasquez Randhawa on 10-27-2024 [facility] Work Phone: Comprehensive metabolic 2000 panelon 10-27-2024 Albumin BCP dye [Mass/Vol] 4.2 g/dL 3.4 - 5.0 g/dL [facility] ALP [Catalytic activity/Vol] 95 U/L 33 - 136 U/L [facility] ALT With P-5'-P [Catalytic activity/Vol] 9 U/L 7 - 45 U/L [facility] Comment on above: Patients treated wit h Sulfasalazine may generate falsely decreased results for ALT. Anion gap [Moles/Vol] 12 mmol/L 10 - 20 mmol/L [facility] AST With P-5'-P [Catalytic activity/Vol] 14 U/L 9 - 39 U/L [facility] Bilirubin [Mass/Vol] 0.6 mg/dL 0.0 - 1.2 mg/dL [facility] Calcium [Mass/Vol] 9.3 mg/dL 8.6 - 10. 3 mg/dL [facility] Chloride [Moles/Vol] 106 mmol/L 98 - 107 mmol/L [facility] CO2 [Moles/Vol] 26 mmol/L 21 - 32 mmol/L [facility] Creatinine [Mass/Vol] 0.99 mg/dL 0.50 - 1.05 mg/dL [facility] GFR/1.73 sq M.predicted among non-blacks MDRD (S/P/Bld) [Vol rate/Area] 55 mL/min/{1.73_m2} Low - PINF [facility] Comment on above: Calculations of danielle mated GFR are performed using the 2020 CKD-EPI Study Refit equation without the race variable for the IDMS-Traceable creatinine methods. https://jasn.asnjournals.org/content//ASN.57927419 88 Glucose [Mass/Vol] 116 mg/dL High 74 - 99 mg/dL [facility] Interpretation and review of laboratory results Abnormal [facility] Potassium [Moles/Vol] 4.1 mmol/L 3.5 - 5.3 mmol/L [facility] Protein [Mass/Vol] 6.6 g/dL 6.4 - 8.2 g/dL [facility] Sodium [Moles/Vol] 140 mmol/L 136 - 145 mmol/L [facility] Urea nitrogen [Mass/Vol] 18 mg/dL 6 - 23 mg/dL [facility] Albumin BCP dye [Mass/Vol] 4.2 g/dL Normal 3.4-5.0 [facility] Comment on above: Performed By: #### 2 432-8 #### MARLENI KNIGHT ([id number]) [facility] ([facility]) [facility] [place] [address] ALP [Catalytic activity/Vol] 95 U/L Normal 33-136 [facility] Comment on above: Performed By: #### 2 432-8 #### MARLENI KNIGHT ([id number]) [facility] ([facility]) [address] [place] [address] 32796 ALT With P-5'-P [Catalytic activity/Vol] 9 U/L Normal 7-45 [facility] Comment on above: Result Comment: Kira ents treated with Sulfasalazine may generate falsely decreased results for ALT. Performed By: #### 2 4322-8 #### MARLENI KNIGHT ([id number]) [facility] ([facility]) [address] [place] [address] 28253 Anion gap [Moles/Vol] 12 mmol/L Normal 10-20 [facility] Comment on above: Performed By: #### 2 4322-8 #### MARLENI KNIGHT ([id number]) [facility] ([facility]) [address] [place] [address] 20887 AST With P-5'-P [Catalytic activity/Vol] 14 U/L Normal 9-39 [facility] Comment on above: Performed By: #### 2 432-8 #### MARLENI KNIGHT ([id number]) [facility] ([facility]) [address] [place] [address] 41110 Bilirubin [Mass/Vol] 0.6 mg/dL Normal 0.0-1.2 [facility] Comment on above: Performed By: #### 2 432-8 #### MARLENI KNIGHT ([id number]) [facility] ([facility]) [address] [place] [address] 58523 Calcium [Mass/Vol] 9.3 mg/dL Normal 8.6-10.3 [facility] Comment on above: Performed By: #### 2 4323-8 #### MARLENI KNIGHT ([id number]) [facility] ([facility]) [address] [place] [address] Chloride [Moles/Vol] 106 mmol/L Normal 98-107 [facility] Comment on above: Performed By: #### 2 4323-8 #### MARLENI KNIGHT ([id number]) [facility] ([facility]) [address] [place] [address] 54625 CO2 [Moles/Vol] 26 mmol/L Normal 21-32 [facility] Comment on above: Performed By: #### 2 4323-8 #### MARLENI KNIGHT ([id number]) [facility] ([facility]) [address] [place] [address] 68333 Creatinine [Mass/Vol] 0.99 mg/dL Normal 0.50-1.05 [facility] Comment on above: Performed By: #### 2 432-8 #### MARLENI KNIGHT ([id number]) [facility] ([facility]) [address] [place] [address] 71797 Glomerular filtration rate 55 mL/min/1.73m*2 Low >60 [facility] Comment on above: Result Comment: Calc ulations of estimated GFR are performed using the 2020 CKD-EPI Study Refit equation without the race variable for the IDMS-Traceable creatinine methods. https://jasn.asnjournals.org/content/early/ASN.90679967 88 Performed By: #### 2 4323-8 #### MARLENI KNIGHT ([id number]) [facility] ([facility]) [address] [place] [address] 32306 Glucose [Mass/Vol] 116 mg/dL High 74-99 [facility] Comment on above: Performed By: #### 2 4323-8 #### MARLENI KNIGHT ([id number]) [facility] ([facility]) [address] [place] [address] 54094 Potassium [Moles/Vol] 4.1 mmol/L Normal 3.5-5.3 [facility] Comment on above: Performed By: #### 2 4323-8 #### MARLENI KNIGHT ([id number]) [facility] ([facility]) [address] [place] [address] Protein [Mass/Vol] 6.6 g/dL Normal 6.4-8.2 [facility] Comment on above: Performed By: #### 2 4323-8 #### MARLENI KNIGHT ([id number]) [facility] ([facility]) [address] [place] [address] Sodium [Moles/Vol] 140 mmol/L Normal 136-145 [facility] Comment on above: Performed By: #### 2 4323-8 #### MARLENI KNIGHT ([id number]) [facility] ([facility]) [address] [place] [address] Urea nitrogen [Mass/Vol] 18 mg/dL Normal 6-23 [facility] Comment on above: Performed By: #### 2 4323-8 #### MARLENI KNIGHT ([id number]) [facility] ([facility]) [address] [place] [address] ECG 12-LEADon 10-27-2024 ECG 12-LEAD Ventricular Rate 73 Atrial Rate 73 P-R Interval 198 QRS Duration 94 Q-T Interval 402 QTC Calculation(Bazett) 442 P Gre[place] 59 R Greentop -37 T [place] 70 QRS Count 12 Q Onset 223 P Onset 124 P Offset 186 T Offset 424 QTC Fredericia 429 Diagnosis Normal sinus rhythm Left axis deviation Minimal voltage criteria for LVH, may be normal variant ( R in aVL ) Abnormal ECG When compared with ECG of 25-DEC-2020 20:16, Previous ECG has undetermined rhythm, needs review QRS axis Shifted left See ED provider note for full interpretation and clinical correlation Confirmed by Carmita Mccurdy ([id number]) on 10/28/2024 4:53:10 PM Normal [facility] Lactateon 10-27-2024 Lactate [Moles/Vol] 1.7 mmol/L 0.4 - 2. 0 mmol/L [facility] Lactate [Moles/Vol] 1.7 mmol/L Normal 0.4-2.0 [facility] Comment on above: Order Comment: Venip uncture immediately after or during the administration of Metamizole may lead to falsely low results. Testing should be performed immediately prior to Metamizole dosing. Performed By: #### 2 524-7 #### MARLENI KNIGHT ([id number]) [facility] ([facility]) [address] [place] [address] Lactate [Moles/Vol]on 2024 Interpretation and review of laboratory results Normal [facility] Venipuncture immedia tely after or during the administration of Metamizole may lead to falsely low results. Testing should be performed immediately prior to Metamizole dosing. [facility] Lipaseon 10-27-2024 Lipase [Catalytic activity/Vol] 8 U/L Low 9 - 82 U/L [facility] Lipase [Catalytic activity/V ol]on 10-27-2024 Interpretation and review of laboratory results Abnormal [facility] Venipuncture immedia tely after or during the administration of Metamizole may lead to falsely low results. Testing should be performed immediately prior to Metamizole dosing. [facility] Triacylglycerol lipaseon Lipase [Catalytic activity/Vol] 8 U/L Low 9-82 [facility] Comment on above: Order Comment: Venip uncture immediately after or during the administration of Metamizole may lead to falsely low results. Testing should be performed immediately prior to Metamizole dosing. Performed By: #### 3 040-3 #### MARLENI KNIGHT ([id number]) [facility] ([facility]) [address] [place], [place] [id number] Urinalysis complete W Reflex Culture panel (U)on 10-27-2024 Appearance (U) Clear Clear [facility] Bilirubin (U) [Mass/Vol] Negative NEGATIVE mg/dL [facility] Color (U) Colorless Abnormal Light-Meriwether ow, Yellow, Dark-Yello w [facility] Glucose Auto test strip (U) [Mass/Vol] Normal Normal mg/dL [facility] Interpretation and review of laboratory results Abnormal [facility] Ketones (U) [Mass/Vol] Negative NEGATIVE mg/dL [facility] Leukocyte esterase Auto test strip Ql (U) Negative NEGATIVE [facility] Nitrite Auto test strip Ql (U) Negative NEGATIVE [facility] pH (U) 6.5 [pH] 5.0, 5.5, 6.0, 6.5, 7.0, 7.5, 8.0 [facility] Protein (U) [Mass/Vol] Negative NEGATIVE, 10 (TRACE), 20 (TRACE) mg/dL [facility] RBC (U) [#/Vol] 0.1 (1+) Abnormal NEGATIVE mg/dL [facility] RBC Auto (Urine sed) [#/Area] 11-20 Abnormal NONE, 1-2, 3-5 /HPF [facility] Specific gravity (U) [Rel density] 1.021 1.005 - 1.035 [facility] Urobilinogen (U) [Mass/Vol] Normal Normal mg/dL [facility] WBC Auto (Urine sed) [#/Area] 1-5 1-5, NONE /HPF [facility] Appearance (U) Clear Normal Clear [facility] Comment on above: Performed By: #### 5 8077-9 #### MARLENI KNIGHT ([id number]) [facility] ([facility]) [address] [place] [address]37 Bilirubin (U) [Mass/Vol] Negative Normal NEGATIVE [facility] Comment on above: Performed By: #### 5 8077-9 #### MARLENI KNIGHT ([id number]) [facility] ([facility]) [address] [place] [address] 35839 Color (U) Colorless Normal Light-[place] ow, Yellow, Dark-Yello w [facility] Comment on above: Performed By: #### 5 8077-9 #### MARLENI KNIGHT ([id number]) [facility] ([facility]) [address] [place] [address] 76745 Glucose Auto test strip (U) [Mass/Vol] Normal Normal Normal [facility] Comment on above: Performed By: #### 5 8077-9 #### MARLENI KNIGHT ([id number]) [facility] ([facility]) [address] [place] [address] 77479 Ketones (U) [Mass/Vol] Negative Normal NEGATIVE [facility] Comment on above: Performed By: #### 5 8077-9 #### MARLENI KNIGHT ([id number]) [facility] ([facility]) [address] [place] [address] 65911 Leukocyte esterase Auto test strip Ql (U) Negative Normal NEGATIVE [facility] Comment on above: Performed By: #### 5 8077-9 #### MARLENI KNIGHT ([id number]) [facility] ([facility]) [address] [place] [address] 85594 Nitrite Auto test strip Ql (U) Negative Normal NEGATIVE [facility] Comment on above: Performed By: #### 5 8077-9 #### MARLENI KNIGHT ([id number]) [facility] ([facility]) [address] [place] [address] 36738 pH (U) 6.5 [pH] Normal 5.0, 5.5, 6.0, 6.5, 7.0, 7.5, 8.0 [facility] Comment on above: Performed By: #### 5 8077-9 #### MARLENI KNIGHT ([id number]) [facility] ([facility]) [address] [place] [address] 89282 Protein (U) [Mass/Vol] Negative Normal NEGATIVE, 10 (TRACE), 20 (TRACE) [facility] Comment on above: Performed By: #### 5 8077-9 #### MARLENI KNIGHT ([id number]) [facility] ([facility]) [address] [place] [address] 12175 RBC (U) [#/Vol] 0.1 (1+) Abnormal NEGATIVE [facility] Comment on above: Performed By: #### 5 8077-9 #### MARLENI KNIGHT ([id number]) [facility] ([facility]) [address] [place] [address] 96821 RBC Auto (Urine sed) [#/Area] 11-20 Abnormal NONE, 1-2, 3-5 [facility] Comment on above: Performed By: #### 5 8077-9 #### MARLENI KNIGHT ([id number]) [facility] ([facility]) [address] [place], [place] [id number] Specific gravity (U) [Rel density] 1.021 Normal 1.005-1.03 5 [facility] Comment on above: Performed By: #### 5 8077-9 #### MARLENI KNIGHT ([id number]) [facility] ([facility]) [address] [place] [address] 78555 Urobilinogen (U) [Mass/Vol] Normal Normal Normal [facility] Comment on above: Performed By: #### 5 8077-9 #### MARLENI KNIGHT ([id number]) [facility] ([facility]) [address] [place] [address] WBC Auto (Urine sed) [#/Area] 1-5 Normal 1-5, NONE [facility] Comment on above: Performed By: #### 5 8077-9 #### MARLENI KNIGHT ([id number]) [facility] ([facility]) [address] [place] [address] CULTURE, URINE, ROUTINEon Bacteria identified Cx Nom (U) SEE NOTE Normal [facility] Comment on above: Result Comment: CULTURE, URINE, ROUTINE Micro Number: [id number] Test Status: Final Specimen Source: Urine Specimen Quality: Adequate Result: No Growth Performed By: #### 3 020, %SBCULI, 43297, 6399, 6517, 395, 496, 73197, 51934 #### [facility] [address], [address] [place] [address] Screening Unit Registered Nurse: Everett Keyes MD REFLEXIVE URINE CULTUREon REFLEXIVE URINE CULTURE Normal [facility] Comment on above: Result Comment: CULT URE INDICATED - RESULTS TO FOLLOW Performed By: #### 3 020, %SBCULI, 36112, 6399, 6517, 395, 496, 81455, 47793 #### [facility] [address], [address] [place] [address] Screening Unit Registered Nurse: Everett Keyes MD URINALYSIS, COMPLETE W/REFLE X TO CULTUREon 10-15-2024 Appearance (U) CLEAR Normal CLEAR [facility] Comment on above: Performed By: #### 3 020, %SBCULI, 96483, 6399, 6517, 395, 496, 87014, 90687 #### [facility] [place] [address] [place] , [address] [place] [address] Screening Unit Registered Nurse: Everett Keyes MD BACTERIA NONE SEEN Normal NONE SEEN [facility] Comment on above: Performed By: #### 3 020, %SBCULI, 69957, 6399, 6517, 395, 496, 31702, 22810 #### [facility] [place] [address] [place] , [address] [place] [address] Screening Unit Registered Nurse: Everett Keyes MD Bilirubin Ql (U) Negative Normal NEGATIVE [facility] Comment on above: Performed By: #### 3 020, %SBCULI, 39140, 6399, 6517, 395, 496, 69306, 28923 #### [facility] [place] [address] [place] , [address] [place] [address] Screening Unit Registered Nurse: Everett Keyes MD Color (U) YELLOW Normal YELLOW [facility] Comment on above: Performed By: #### 3 020, %SBCULI, 84295, 6399, 6517, 395, 496, 03802, 99652 #### [facility] [place] [address] [place] , [address] [place] [address] Screening Unit Registered Nurse: Everett Keyes MD Glucose Ql (U) Negative Normal NEGATIVE [facility] Comment on above: Performed By: #### 3 020, %SBCULI, 62084, 6399, 6517, 395, 496, 44755, 91365 #### [facility] [place] [address] [place] , [address] [place] [address] Screening Unit Registered Nurse: Everett Keyes MD HYALINE CAST NONE SEEN Normal NONE SEEN [facility] Comment on above: Performed By: #### 3 020, %SBCULI, 17092, 6399, 6517, 395, 496, 45242, 77073 #### [facility] [place] [address] [place] , [address] [place] [address] Screening Unit Registered Nurse: Everett Keyes MD Ketones Ql (U) Negative Normal NEGATIVE [facility] Comment on above: Performed By: #### 3 020, %SBCULI, 85262, 6399, 6517, 395, 496, 74950, 15945 #### [facility] of [address], [address] [place] [address] Screening Unit Registered Nurse: Everett Keyes MD Leukocyte esterase Test strip Ql (U) TRACE Abnormal NEGATIVE [facility] Comment on above: Performed By: #### 3 020, %SBCULI, 04772, 6399, 6517, 395, 496, 87386, 00426 #### [facility] [place] [address] Screening Unit Registered Nurse: Everett Keyes MD Nitrite Ql (U) Negative Normal NEGATIVE [facility] Comment on above: Performed By: #### 3 020, %SBCULI, 63276, 6399, 6517, 395, 496, 79465, 45619 #### [facility] [place] [address] Screening Unit Registered Nurse: Everett Keyes MD NOTE Normal [facility] Comment on above: Result Comment: This urine was analyzed for the presence of WBC, RBC, bacteria, casts, and other formed elements. Only those elements seen were reported. Performed By: #### 3 020, %SBCULI, 97223, 6399, 6517, 395, 496, 66843, 78893 #### [facility] [place] [address] Screening Unit Registered Nurse: Everett Keyes MD OCCULT BLOOD TRACE Abnormal NEGATIVE [facility] Comment on above: Performed By: #### 3 020, %SBCULI, 24275, 6399, 6517, 395, 496, 54371, 94518 #### [facility] [place] [address] Screening Unit Registered Nurse: Everett Keyes MD pH (U) 6.5 [pH] Normal 5.0-8.0 [facility] Comment on above: Performed By: #### 3 020, %SBCULI, 04009, 6399, 6517, 395, 496, 81621, 34520 #### [facility] of [address], [address] [place] [address] Screening Unit Registered Nurse: Everett Keyes MD Protein Ql (U) Negative Normal NEGATIVE [facility] Comment on above: Performed By: #### 3 020, %SBCULI, 91203, 6399, 6517, 395, 496, 47161, 66119 #### [facility] of [address], [address] [place] [address] Screening Unit Registered Nurse: Everett Keyes MD RBC NONE SEEN Normal < OR = 2 [facility] Comment on above: Performed By: #### 3 020, %SBCULI, 97325, 6399, 6517, 395, 496, 29106, 66682 #### [facility] of [address], [address] [place] [address] Screening Unit Registered Nurse: Everett Keyes MD Specific gravity (U) [Rel density] 1.009 Normal 1.001-1.03 5 [facility] Comment on above: Performed By: #### 3 020, %SBCULI, 18893, 6399, 6517, 395, 496, 28018, 98599 #### [facility] of [address], [address] [place] [address] Screening Unit Registered Nurse: Everett Keyes MD SQUAMOUS EPITHELIAL CELLS 0-5 Normal < OR = 5 [facility] Comment on above: Performed By: #### 3 020, %SBCULI, 05136, 6399, 6517, 395, 496, 36618, 92528 #### [facility] [place] [address] Screening Unit Registered Nurse: Everett Keyes MD WBC 0-5 Normal < OR = 5 [facility] Comment on above: Performed By: #### 3 020, %SBCULI, 40184, 6399, 6517, 395, 496, 19893, 68619 #### [facility] of [address], [address] [place], [place] [id number] Screening Unit Registered Nurse: Everett Keyes MD CULTURE, URINE, ROUTINEon Bacteria identified Cx Nom (U) SEE NOTE Abnormal [facility] Comment on above: Result Comment: CULTURE, URINE, ROUTINE Micro Number: [id number] Test Status: Final Specimen Source: Urine Specimen Quality: Adequate Result: 50,000-100,000 CFU/mL of Klebsiella pneumoniae K.pneumoniae INT PATEL AMOX/CLAVULANATE S <=2 AMP/SULBACTAM S <=2 CEFAZOLIN NR 2 2 CEFEPIME S <=0.12 CEFTAZIDIME S <=0.5 CEFTRIAXONE S <=0.25 CIPROFLOXACIN S 0.12 GENTAMICIN S <=1 IMIPENEM S 0.5 LEVOFLOXACIN S <=0.12 MEROPENEM S <=0.25 NITROFURANTOIN I 64 PIP/TAZOBACTAM S 8 TRIMETHOPRIM/SULFA S <=20 S = Susceptible I = Intermediate R = Resistant NS = Not susceptible SDD = Susceptible Dose Dependent * = Not Tested NR = Not Reported NN = See Therapy Comments THERAPY COMMENTS Note 1: For infections other than uncomplicated UTI caused by E. coli, K. pneumoniae or P. mirabilis: Cefazolin is resistant if PATEL > or = 8 mcg/mL. (Distinguishing susceptible versus intermediate for isolates with PATEL < or = 4 mcg/mL requires additional testing.) Note 2: For uncomplicated UTI caused by E. coli, K. pneumoniae or P. mirabilis: Cefazolin is susceptible if PATEL <32 mcg/mL and predicts susceptible to the oral agents cefaclor, cefdinir, cefpodoxime, cefprozil, cefuroxime, cephalexin and loracarbef. Performed By: #### 3 020, %SBCULI, 94822, 6399, 6517, 395, 496, 83824, 87438 #### [facility] [address], [address] [place] [address] Screening Unit Registered Nurse: Everett Keyes MD REFLEXIVE URINE CULTUREon REFLEXIVE URINE CULTURE Normal [facility] Comment on above: Result Comment: CULT URE INDICATED - RESULTS TO FOLLOW Performed By: #### 3 020, %SBCULI, 35857, 6399, 6517, 395, 496, 51001, 12265 #### [facility] [place] [address] Screening Unit Registered Nurse: Everett Keyes MD URINALYSIS, COMPLETE W/REFLE X TO CULTUREon 10-05-2024 Appearance (U) CLOUDY Abnormal CLEAR [facility] Comment on above: Performed By: #### % SBCULI, 395, 3020 #### [facility] [place] [address] Screening Unit Registered Nurse: Everett Keyes MD BACTERIA NONE SEEN Normal NONE SEEN [facility] Comment on above: Performed By: #### % SBCULI, 395, 3020 #### [facility] [place] [address] Screening Unit Registered Nurse: Everett Keyes MD Bilirubin Ql (U) Negative Normal NEGATIVE [facility] Comment on above: Performed By: #### % SBCULI, 395, 3020 #### [facility] [place] [address] Screening Unit Registered Nurse: Everett Keyes MD Color (U) YELLOW Normal YELLOW [facility] Comment on above: Performed By: #### % SBCULI, 395, 3020 #### [facility] [place] [address] Screening Unit Registered Nurse: Everett Keyes MD Glucose Ql (U) Negative Normal NEGATIVE [facility] Comment on above: Performed By: #### % SBCULI, 395, 3020 #### [facility] [place] [address] Screening Unit Registered Nurse: Everett Keyes MD HYALINE CAST 0-5 Abnormal NONE SEEN [facility] Comment on above: Performed By: #### % SBCULI, 395, 3020 #### [facility] [place] [address] Screening Unit Registered Nurse: Everett Keyes MD Ketones Ql (U) Negative Normal NEGATIVE [facility] Comment on above: Performed By: #### % SBCULI, 395, 3020 #### [facility] of [address], [address] [place] [address] Screening Unit Registered Nurse: Everett Keyes MD Leukocyte esterase Test strip Ql (U) 3+ Abnormal NEGATIVE [facility] Comment on above: Performed By: #### % SBCULI, 395, 3020 #### [facility] of [address], [address] [place] [address] Screening Unit Registered Nurse: Everett Keyes MD Nitrite Ql (U) Negative Normal NEGATIVE [facility] Comment on above: Performed By: #### % SBCULI, 395, 3020 #### [facility] [place] [address] Screening Unit Registered Nurse: Everett Keyes MD NOTE Normal [facility] Comment on above: Result Comment: This urine was analyzed for the presence of WBC, RBC, bacteria, casts, and other formed elements. Only those elements seen were reported. Performed By: #### % SBCULI, 395, 3020 #### [facility] of [address], [address] [place] [address] Screening Unit Registered Nurse: Everett Keyes MD OCCULT BLOOD 1+ Abnormal NEGATIVE [facility] Comment on above: Performed By: #### % SBCULI, 395, 3020 #### [facility] of [address], [address] [place] [address] Screening Unit Registered Nurse: Everett Keyes MD pH (U) 5.5 [pH] Normal 5.0-8.0 [facility] Comment on above: Performed By: #### % SBCULI, 395, 3020 #### [facility] [place] [address] Screening Unit Registered Nurse: Everett Keyes MD Protein Ql (U) Negative Normal NEGATIVE [facility] Comment on above: Performed By: #### % SBCULI, 395, 3020 #### [facility] of [address], [address] [place] [address] Screening Unit Registered Nurse: Everett Keyes MD RBC 0-2 Normal < OR = 2 [facility] Comment on above: Performed By: #### % SBCULI, 395, 3020 #### [facility] of [address], [address] [place] [address] Screening Unit Registered Nurse: Everett Keyes MD Specific gravity (U) [Rel density] 1.014 Normal 1.001-1.03 5 [facility] Comment on above: Performed By: #### % SBCULI, 395, 3020 #### [facility] of [address], [address] [place] [address] Screening Unit Registered Nurse: Everett Keyes MD SQUAMOUS EPITHELIAL CELLS NONE SEEN Normal < OR = 5 [facility] Comment on above: Performed By: #### % SBCULI, 395, 3020 #### [facility] of [address], [address] [place] [address] Screening Unit Registered Nurse: Everett Keyes MD WBC (U) [#/Vol] /uL Abnormal < OR = 5 [facility] Comment on above: Performed By: #### % SBCULI, 395, 3020 #### [facility] of [address], [address] [place] [address] Screening Unit Registered Nurse: Everett Keyes MD ALBUMIN, RANDOM URINE W/CREA TININEon 09-26-2024 ALBUMIN, URINE 1.4 mg/dL Normal See Note: [facility] Comment on above: Result Comment: Refe rence Range: Reference Range Not established Performed By: #### 3 020, %SBCULI, 03504, 6399, 6517, 395, 496, 93078, 39369 #### [facility] of [address], [address] [place] [address] Screening Unit Registered Nurse: Everett Keyes MD ALBUMIN/CREATININE RATIO, RANDOM URINE 74 mg/g creat High <30 [facility] Comment on above: Result Comment: The ADA defines abnormalities in albumin excretion as follows: Albuminuria Category Result (mg/g creatinine) Normal to Mildly increased <30 Moderately increased 30-299 Severely increased > OR = 300 The ADA recommends that at least two of three specimens collected within a 3-6 month period be abnormal before considering a patient to be within a diagnostic category. Performed By: #### 3 020, %SBCULI, 57208, 6399, 6517, 395, 496, 85512, 26312 #### [facility] [place] [address] Screening Unit Registered Nurse: Everett Keyes MD Creatinine (U) [Mass/Vol] 19 mg/dL Low 20-275 [facility] Comment on above: Performed By: #### 3 020, %SBCULI, 25145, 6399, 6517, 395, 496, 57748, 30807 #### [facility] [place] [address] Screening Unit Registered Nurse: Everett Keyes MD CBC (INCLUDES DIFF/PLT)on Basophils (Bld) [#/Vol] 0.034 10*3/uL Normal 0-200 [facility] Comment on above: Performed By: #### 3 020, %SBCULI, 99905, 6399, 6517, 395, 496, 20563, 72065 #### [facility] [place] [address] Screening Unit Registered Nurse: Everett Keyes MD Basophils/100 WBC (Bld) 0.5 % Normal [facility] Comment on above: Performed By: #### 3 020, %SBCULI, 83818, 6399, 6517, 395, 496, 15529, 79725 #### [facility] [place] [address] Screening Unit Registered Nurse: Everett Keyes MD Eosinophils (Bld) [#/Vol] 0.02 10*3/uL Normal 15-500 [facility] Comment on above: Performed By: #### 3 020, %SBCULI, 41283, 6399, 6517, 395, 496, 75627, 70189 #### [facility] [place] [address] Screening Unit Registered Nurse: Everett Keyes MD Eosinophils/100 WBC (Bld) 0.3 % Normal [facility] Comment on above: Performed By: #### 3 020, %SBCULI, 11062, 6399, 6517, 395, 496, 30366, 33617 #### [facility] [place] [address] Screening Unit Registered Nurse: Everett Keyes MD Erythrocyte distribution width (RBC) [Ratio] 12.8 % Normal 11.0-15.0 [facility] Comment on above: Performed By: #### 3 020, %SBCULI, 23750, 6399, 6517, 395, 496, 90169, 85900 #### [facility] [place] [address] Screening Unit Registered Nurse: Everett Keyes MD Hematocrit (Bld) [Volume fraction] 36.8 % Normal 35.0-45.0 [facility] Comment on above: Performed By: #### 3 020, %SBCULI, 23845, 6399, 6517, 395, 496, 23008, 19818 #### [facility] [place] [address] Screening Unit Registered Nurse: Everett Keyes MD Hemoglobin (Bld) [Mass/Vol] 11.6 g/dL Low 11.7-15.5 [facility] Comment on above: Performed By: #### 3 020, %SBCULI, 37455, 6399, 6517, 395, 496, 60319, 34532 #### [facility] [place] [address] Screening Unit Registered Nurse: Everett Keyes MD Lymphocytes (Bld) [#/Vol] 2.117 10*3/uL Normal 850-3900 [facility] Comment on above: Performed By: #### 3 020, %SBCULI, 22321, 6399, 6517, 395, 496, 87671, 59243 #### [facility] [place] [address] Screening Unit Registered Nurse: Everett Keyes MD Lymphocytes/100 WBC (Bld) 31.6 % Normal [facility] Comment on above: Performed By: #### 3 020, %SBCULI, 04593, 6399, 6517, 395, 496, 39890, 57305 #### [facility] [place] [address] Screening Unit Registered Nurse: Everett Keyes MD MCH (RBC) [Entitic mass] 30.4 pg Normal 27.0-33.0 [facility] Comment on above: Performed By: #### 3 020, %SBCULI, 87667, 6399, 6517, 395, 496, 79575, 04385 #### [facility] [place] [address] Screening Unit Registered Nurse: Everett Keyes MD MCHC (RBC) [Mass/Vol] 31.5 g/dL Low 32.0-36.0 [facility] Comment on above: Result Comment: For adults, a slight decrease in the calculated MCHC value (in the range of 30 to 32 g/dL) is most likely not clinically significant; however, it should be interpreted with caution in correlation with other red cell parameters and the patient's clinical condition. Performed By: #### 3 020, %SBCULI, 30286, 6399, 6517, 395, 496, 53707, 60546 #### [facility] [place] [address] Screening Unit Registered Nurse: Everett Keyes MD MCV (RBC) [Entitic vol] 96.3 fL Normal 80.0-100.0 [facility] Comment on above: Performed By: #### 3 020, %SBCULI, 10140, 6399, 6517, 395, 496, 48553, 42697 #### [facility] [place] [address] Screening Unit Registered Nurse: Everett Keyes MD Monocytes (Bld) [#/Vol] 0.503 10*3/uL Normal 200-950 [facility] Comment on above: Performed By: #### 3 020, %SBCULI, 67210, 6399, 6517, 395, 496, 87966, 00820 #### [facility] of [address] Screening Unit Registered Nurse: Everett Keyes MD Monocytes/100 WBC (Bld) 7.5 % Normal [facility] Comment on above: Performed By: #### 3 020, %SBCULI, 76177, 6399, 6517, 395, 496, 69531, 24225 #### [facility] of [address] Screening Unit Registered Nurse: Everett Keyes MD Neutrophils (Bld) [#/Vol] 4.027 10*3/uL Normal 0927-0225 [facility] Comment on above: Performed By: #### 3 020, %SBCULI, 84990, 6399, 6517, 395, 496, 01047, 40397 #### [facility] of [address] Screening Unit Registered Nurse: Everett Keyes MD Neutrophils/100 WBC (Bld) 60.1 % Normal [facility] Comment on above: Performed By: #### 3 020, %SBCULI, 64394, 6399, 6517, 395, 496, 88088, 52386 #### [facility] of [address] Screening Unit Registered Nurse: Everett Keyes MD Platelet mean volume (Bld) [Entitic vol] 10.4 fL Normal 7.5-12.5 [facility] Comment on above: Performed By: #### 3 020, %SBCULI, 94540, 6399, 6517, 395, 496, 50563, 36181 #### [facility] [place] [id number] Screening Unit Registered Nurse: Everett Keyes MD Platelets (Bld) [#/Vol] 167 10*3/uL Normal 140-400 [facility] Comment on above: Performed By: #### 3 020, %SBCULI, 36214, 6399, 6517, 395, 496, 63618, 97315 #### [facility] [place] [address] [place] [address] Screening Unit Registered Nurse: Everett Keyes MD RBC (Bld) [#/Vol] 3.82 10*6/uL Normal 3.80-5.10 [facility] Comment on above: Performed By: #### 3 020, %SBCULI, 93255, 6399, 6517, 395, 496, 86553, 67290 #### [facility] [place] [address] Screening Unit Registered Nurse: Everett Keyes MD WBC (Bld) [#/Vol] 6.7 10*3/uL Normal 3.8-10.8 [facility] Comment on above: Performed By: #### 3 020, %SBCULI, 41127, 6399, 6517, 395, 496, 87167, 23463 #### [facility] [place] [address] Screening Unit Registered Nurse: Everett Keyes MD COMPREHENSIVE METABOLIC PANE L W/ANION GAPon 09-26-2024 Albumin [Mass/Vol] 4.2 g/dL Normal 3.6-5.1 [facility] Comment on above: Performed By: #### 3 020, %SBCULI, 23081, 6399, 6517, 395, 496, 77291, 26680 #### [facility] [place] [address] Screening Unit Registered Nurse: Everett Keyes MD ALP [Catalytic activity/Vol] 107 U/L Normal 37-153 [facility] Comment on above: Performed By: #### 3 020, %SBCULI, 68423, 6399, 6517, 395, 496, 97401, 97464 #### [facility] [place] [address] Screening Unit Registered Nurse: Everett Keyes MD ALT [Catalytic activity/Vol] 8 U/L Normal 6-29 [facility] Comment on above: Performed By: #### 3 020, %SBCULI, 86413, 6399, 6517, 395, 496, 01023, 85184 #### [facility] of [address] Screening Unit Registered Nurse: Everett Keyes MD AST [Catalytic activity/Vol] 14 U/L Normal 10-35 [facility] Comment on above: Performed By: #### 3 020, %SBCULI, 94967, 6399, 6517, 395, 496, 14239, 85735 #### [facility] of [address] Screening Unit Registered Nurse: Everett Keyes MD Bilirubin [Mass/Vol] 0.5 mg/dL Normal 0.2-1.2 [facility] Comment on above: Performed By: #### 3 020, %SBCULI, 03172, 6399, 6517, 395, 496, 93170, 82525 #### [facility] of [address] Screening Unit Registered Nurse: Everett Keyes MD Calcium [Mass/Vol] 9.2 mg/dL Normal 8.6-10.4 [facility] Comment on above: Performed By: #### 3 020, %SBCULI, 99565, 6399, 6517, 395, 496, 63322, 53772 #### [facility] of [address] Screening Unit Registered Nurse: Everett Keyes MD Chloride [Moles/Vol] 106 mmol/L Normal 98-110 [facility] Comment on above: Performed By: #### 3 020, %SBCULI, 82780, 6399, 6517, 395, 496, 89989, 85777 #### [facility] [place] [id number] Screening Unit Registered Nurse: Everett Keyes MD CO2 [Moles/Vol] 26 mmol/L Normal 20-32 [facility] Comment on above: Performed By: #### 3 020, %SBCULI, 04893, 6399, 6517, 395, 496, 87317, 61968 #### [facility] [place] [id number] Screening Unit Registered Nurse: Everett Keyes MD Creatinine [Mass/Vol] 1.12 mg/dL High 0.60-0.95 [facility] Comment on above: Performed By: #### 3 020, %SBCULI, 73033, 6399, 6517, 395, 496, 29674, 22982 #### [facility] [place] [address] Screening Unit Registered Nurse: Everett Keyes MD ELECTROLYTE BALANCE 10 mmol/L (calc) Normal 7-17 [facility] Comment on above: Performed By: #### 3 020, %SBCULI, 37746, 6399, 6517, 395, 496, 65936, 36380 #### [facility] [place] [address] Screening Unit Registered Nurse: Everett Keyes MD GFR/1.73 sq M.predicted among non-blacks MDRD (S/P/Bld) [Vol rate/Area] 47 mL/min/{1.73_m2} Low > OR = 60 [facility] Comment on above: Performed By: #### 3 020, %SBCULI, 38888, 6399, 6517, 395, 496, 61248, 73636 #### [facility] [place] [address] Screening Unit Registered Nurse: Everett Keyes MD Glucose [Mass/Vol] 100 mg/dL Normal 65-139 [facility] Comment on above: Result Comment: Non-fasting reference interval For someone without known diabetes, a glucose value between 100 and 125 mg/dL is consistent with prediabetes and should be confirmed with a follow-up test. Performed By: #### 3 020, %SBCULI, 26451, 6399, 6517, 395, 496, 64898, 52142 #### [place] [address] Screening Unit Registered Nurse: Everett Keyes MD Potassium [Moles/Vol] 4.2 mmol/L Normal 3.5-5.3 [facility] Comment on above: Performed By: #### 3 020, %SBCULI, 82486, 6399, 6517, 395, 496, 23248, 31028 #### [facility] [place] [address] Screening Unit Registered Nurse: Everett Keyes MD Protein [Mass/Vol] 6.5 g/dL Normal 6.1-8.1 [facility] Comment on above: Performed By: #### 3 020, %SBCULI, 67764, 6399, 6517, 395, 496, 33479, 33568 #### [facility] [place] [address] Screening Unit Registered Nurse: Everett Keyes MD Sodium [Moles/Vol] 142 mmol/L Normal 135-146 [facility] Comment on above: Performed By: #### 3 020, %SBCULI, 21958, 6399, 6517, 395, 496, 80402, 52653 #### [facility] [place] [address] Screening Unit Registered Nurse: Everett Keyes MD Urea nitrogen [Mass/Vol] 23 mg/dL Normal 7-25 [facility] Comment on above: Performed By: #### 3 020, %SBCULI, 43109, 6399, 6517, 395, 496, 70991, 16036 #### [facility] [place] [address] Screening Unit Registered Nurse: Everett Keyes MD CULTURE, URINE, ROUTINEon Bacteria identified Cx Nom (U) SEE NOTE Abnormal [facility] Comment on above: Result Comment: CULTURE, URINE, ROUTINE Micro Number: [id number] Test Status: Final Specimen Source: Urine Specimen Quality: Adequate Result: Greater than 100,000 CFU/mL of Klebsiella pneumoniae K.pneumoniae INT PATEL AMOX/CLAVULANATE S <=2 AMP/SULBACTAM S <=2 CEFAZOLIN NR 2 2 CEFEPIME S <=0.12 CEFTAZIDIME S <=0.5 CEFTRIAXONE S <=0.25 CIPROFLOXACIN S <=0.06 GENTAMICIN S <=1 IMIPENEM S <=0.25 LEVOFLOXACIN S <=0.12 MEROPENEM S <=0.25 NITROFURANTOIN S 32 PIP/TAZOBACTAM S <=4 TRIMETHOPRIM/SULFA S <=20 S = Susceptible I = Intermediate R = Resistant NS = Not susceptible SDD = Susceptible Dose Dependent * = Not Tested NR = Not Reported NN = See Therapy Comments THERAPY COMMENTS Note 1: For infections other than uncomplicated UTI caused by E. coli, K. pneumoniae or P. mirabilis: Cefazolin is resistant if PATEL > or = 8 mcg/mL. (Distinguishing susceptible versus intermediate for isolates with PATEL < or = 4 mcg/mL requires additional testing.) Note 2: For uncomplicated UTI caused by E. coli, K. pneumoniae or P. mirabilis: Cefazolin is susceptible if PATEL <32 mcg/mL and predicts susceptible to the oral agents cefaclor, cefdinir, cefpodoxime, cefprozil, cefuroxime, cephalexin and loracarbef. Performed By: #### 3 020, %SBCULI, 77221, 6399, 6517, 395, 496, 86824, 11146 #### [facility] [place] [address] Screening Unit Registered Nurse: Everett Keyes MD HEMOGLOBIN A1con 09-26-2024 HbA1c (Bld) [Mass fraction] 5.7 % High <5.7 [facility] Comment on above: Result Comment: For someone without known diabetes, a hemoglobin A1c value between 5.7% and 6.4% is consistent with prediabetes and should be confirmed with a follow-up test. For someone with known diabetes, a value <7% indicates that their diabetes is well controlled. A1c targets should be individualized based on duration of diabetes, age, comorbid conditions, and other considerations. This assay result is consistent with an increased risk of diabetes. Currently, no consensus exists regarding use of hemoglobin A1c for diagnosis of diabetes for children. Performed By: #### 3 020, %SBCULI, 16018, 6399, 6517, 395, 496, 12921, 49219 #### [facility] [address], [address] [place] [address] Screening Unit Registered Nurse: Everett Keyes MD LIPID PANEL WITH REFLEX TO D LEXI LDLon 09-26-2024 Cholesterol [Mass/Vol] 101 mg/dL Normal <200 [facility] Comment on above: Order Comment: FASTI NG:NO PATIENT REFUSED SOME TESTING; PATIENT ENCOURAGED TO RETURN. FASTING: NO Performed By: #### 3 020, %SBCULI, 96219, 6399, 6517, 395, 496, 43533, 38625 #### [facility] [address], [address] [place] [address] Screening Unit Registered Nurse: Everett Keyes MD Cholesterol in HDL [Mass/Vol] 72 mg/dL Normal > OR = 50 [facility] Comment on above: Order Comment: FASTI NG:NO PATIENT REFUSED SOME TESTING; PATIENT ENCOURAGED TO RETURN. FASTING: NO Performed By: #### 3 020, %SBCULI, 93344, 6399, 6517, 395, 496, 66916, 97884 #### [facility] [address], [address] [place] [address] Screening Unit Registered Nurse: Everett Keyes MD Cholesterol in LDL [Mass/Vol] 13 mg/dL Normal [facility] Comment on above: Order Comment: FASTI NG:NO PATIENT REFUSED SOME TESTING; PATIENT ENCOURAGED TO RETURN. FASTING: NO Result Comment: Refe rence range: <100 Desirable range <100 mg/dL for primary prevention; <70 mg/dL for patients with CHD or diabetic patients with > or = 2 CHD risk factors. LDL-C is now calculated using the [place] calculation, which is a validated novel method providing better accuracy than the Friedewald equation in the estimation of LDL-C. Anshu AREVALO et al. ROGELIO. 2013;310(19): 6888-9358 (http://education.[employer]/faq/CVR548) Performed By: #### 3 020, %SBCULI, 15639, 6399, 6517, 395, 496, 80914, 01301 #### [facility] [address], [address] [place], [place] [id number] Screening Unit Registered Nurse: Everett Keyes MD Cholesterol.total/C holesterol in HDL [Mass ratio] 1.4 {ratio} Normal <5.0 [facility] Comment on above: Order Comment: FASTI NG:NO PATIENT REFUSED SOME TESTING; PATIENT ENCOURAGED TO RETURN. FASTING: NO Performed By: #### 3 020, %SBCULI, 19158, 6399, 6517, 395, 496, 83264, 88934 #### [facility] [address], [address] [place] [address] Screening Unit Registered Nurse: Everett Keyes MD NON HDL CHOLESTEROL 29 mg/dL (calc) Normal <130 [facility] Comment on above: Order Comment: FASTI NG:NO PATIENT REFUSED SOME TESTING; PATIENT ENCOURAGED TO RETURN. FASTING: NO Result Comment: For patients with diabetes plus 1 major ASCVD risk factor, treating to a non-HDL-C goal of <100 mg/dL (LDL-C of <70 mg/dL) is considered a therapeutic option. Performed By: #### 3 020, %SBCULI, 08617, 6399, 6517, 395, 496, 96934, 11177 #### [facility] [address], [address] [place] [address] Screening Unit Registered Nurse: Everett Keyes MD Triglyceride [Mass/Vol] 76 mg/dL Normal <150 [facility] Comment on above: Order Comment: FASTI NG:NO PATIENT REFUSED SOME TESTING; PATIENT ENCOURAGED TO RETURN. FASTING: NO Performed By: #### 3 020, %SBCULI, 44078, 6399, 6517, 395, 496, 95963, 95303 #### [facility] [place] [address] Screening Unit Registered Nurse: Everett Keyes MD REFLEXIVE URINE CULTUREon REFLEXIVE URINE CULTURE Normal [facility] Comment on above: Result Comment: CULT URE INDICATED - RESULTS TO FOLLOW Performed By: #### 3 020, %SBCULI, 89053, 6399, 6517, 395, 496, 85803, 50198 #### [facility] [address], [address] [place] [address] Screening Unit Registered Nurse: Everett Keyes MD TSH W/REFLEX TO FT4on 2024 TSH W/REFLEX TO FT4 0.52 mIU/L Normal 0.40-4.50 [facility] Comment on above: Performed By: #### 3 020, %SBCULI, 58573, 6399, 6517, 395, 496, 57756, 11578 #### [facility] [place] [address] Screening Unit Registered Nurse: Everett Keyes MD URINALYSIS, COMPLETE W/REFLE X TO CULTUREon 09-26-2024 Appearance (U) TURBID Abnormal CLEAR [facility] Comment on above: Performed By: #### 3 020, %SBCULI, 76449, 6399, 6517, 395, 496, 01635, 49279 #### [facility] [place] [address] Screening Unit Registered Nurse: Everett Keyes MD BACTERIA FEW Abnormal NONE SEEN [facility] Comment on above: Performed By: #### 3 020, %SBCULI, 73945, 6399, 6517, 395, 496, 20146, 86843 #### [facility] [place] [address] Screening Unit Registered Nurse: Everett Keyes MD Bilirubin Ql (U) Negative Normal NEGATIVE [facility] Comment on above: Performed By: #### 3 020, %SBCULI, 95861, 6399, 6517, 395, 496, 28298, 83712 #### [facility] [place] [address] Screening Unit Registered Nurse: Everett Keyes MD Color (U) YELLOW Normal YELLOW [facility] Comment on above: Performed By: #### 3 020, %SBCULI, 42033, 6399, 6517, 395, 496, 58267, 96760 #### [facility] [place] [address] Screening Unit Registered Nurse: Everett Keyes MD Glucose Ql (U) Negative Normal NEGATIVE [facility] Comment on above: Performed By: #### 3 020, %SBCULI, 44944, 6399, 6517, 395, 496, 75266, 95299 #### [facility] [place] [address] Screening Unit Registered Nurse: Everett Keyes MD HYALINE CAST NONE SEEN Normal NONE SEEN [facility] Comment on above: Performed By: #### 3 020, %SBCULI, 75463, 6399, 6517, 395, 496, 10128, 80008 #### [facility] [place] [address] Screening Unit Registered Nurse: Everett Keyes MD Ketones Ql (U) Negative Normal NEGATIVE [facility] Comment on above: Performed By: #### 3 020, %SBCULI, 08899, 6399, 6517, 395, 496, 36335, 86687 #### [facility] [place] [address] Screening Unit Registered Nurse: Everett Keyes MD Leukocyte esterase Test strip Ql (U) 3+ Abnormal NEGATIVE [facility] Comment on above: Performed By: #### 3 020, %SBCULI, 77176, 6399, 6517, 395, 496, 22060, 90044 #### [facility] [place] [address] Screening Unit Registered Nurse: Everett Keyes MD Nitrite Ql (U) Negative Normal NEGATIVE [facility] Comment on above: Performed By: #### 3 020, %SBCULI, 22606, 6399, 6517, 395, 496, 45640, 77500 #### [facility] [place] [address] Screening Unit Registered Nurse: Everett Keyes MD NOTE Normal [facility] Comment on above: Result Comment: This urine was analyzed for the presence of WBC, RBC, bacteria, casts, and other formed elements. Only those elements seen were reported. Performed By: #### 3 020, %SBCULI, 44718, 6399, 6517, 395, 496, 70613, 37392 #### [facility] [place] [address] [place] [address] Screening Unit Registered Nurse: Everett Keyes MD OCCULT BLOOD 1+ Abnormal NEGATIVE [facility] Comment on above: Performed By: #### 3 020, %SBCULI, 61410, 6399, 6517, 395, 496, 51929, 45645 #### [facility] [place] [address] Screening Unit Registered Nurse: Everett Keyes MD pH (U) 5.5 [pH] Normal 5.0-8.0 [facility] Comment on above: Performed By: #### 3 020, %SBCULI, 99755, 6399, 6517, 395, 496, 16834, 93327 #### [facility] [place] [address] Screening Unit Registered Nurse: Everett Keyes MD Protein Ql (U) Negative Normal NEGATIVE [facility] Comment on above: Performed By: #### 3 020, %SBCULI, 64822, 6399, 6517, 395, 496, 99589, 34407 #### [facility] [place] [address] Screening Unit Registered Nurse: Everett Keyes MD RBC 0-2 Normal < OR = 2 [facility] Comment on above: Performed By: #### 3 020, %SBCULI, 71310, 6399, 6517, 395, 496, 49580, 64155 #### [facility] [place] [address] Screening Unit Registered Nurse: Everett Keyes MD Specific gravity (U) [Rel density] 1.007 Normal 1.001-1.03 5 [facility] Comment on above: Performed By: #### 3 020, %SBCULI, 44162, 6399, 6517, 395, 496, 33548, 44964 #### [facility] [place] [address] Screening Unit Registered Nurse: Everett Keyes MD SQUAMOUS EPITHELIAL CELLS 0-5 Normal < OR = 5 [facility] Comment on above: Performed By: #### 3 020, %SBCULI, 66225, 6399, 6517, 395, 496, 40340, 14412 #### [facility] [place] [address] Screening Unit Registered Nurse: Everett Keyes MD WBC 40-60 Abnormal < OR = 5 [facility] Comment on above: Performed By: #### 3 020, %SBCULI, 56691, 6399, 6517, 395, 496, 67447, 99251 #### [facility] [place] [address] Screening Unit Registered Nurse: Everett Keyes MD CBC (INCLUDES DIFF/PLT)on Basophils (Bld) [#/Vol] 0.053 10*3/uL Normal 0-200 [facility] Comment on above: Performed By: #### 3 020, %SBCULI, 26291, 6399, 6517, 395, 496, 03426, 34335 #### [facility] [place] [address] Screening Unit Registered Nurse: Everett Keyes MD Basophils/100 WBC (Bld) 0.6 % Normal [facility] Comment on above: Performed By: #### 3 020, %SBCULI, 49657, 6399, 6517, 395, 496, 95737, 64241 #### [facility] [place] [address] Screening Unit Registered Nurse: Everett Keyes MD Eosinophils (Bld) [#/Vol] 0.079 10*3/uL Normal 15-500 [facility] Comment on above: Performed By: #### 3 020, %SBCULI, 59102, 6399, 6517, 395, 496, 85685, 35234 #### [facility] [place] [address] Screening Unit Registered Nurse: Everett Keyes MD Eosinophils/100 WBC (Bld) 0.9 % Normal [facility] Comment on above: Performed By: #### 3 020, %SBCULI, 56352, 6399, 6517, 395, 496, 07531, 53258 #### [facility] [place] [address] Screening Unit Registered Nurse: Everett Keyes MD Erythrocyte distribution width (RBC) [Ratio] 12.1 % Normal 11.0-15.0 [facility] Comment on above: Performed By: #### 3 020, %SBCULI, 66162, 6399, 6517, 395, 496, 72076, 09009 #### [facility] [place] [address] Screening Unit Registered Nurse: Everett Keyes MD Hematocrit (Bld) [Volume fraction] 38.7 % Normal 35.0-45.0 [facility] Comment on above: Performed By: #### 3 020, %SBCULI, 89314, 6399, 6517, 395, 496, 55418, 19270 #### [facility] [place] [address] Screening Unit Registered Nurse: Everett Keyes MD Hemoglobin (Bld) [Mass/Vol] 12.2 g/dL Normal 11.7-15.5 [facility] Comment on above: Performed By: #### 3 020, %SBCULI, 88581, 6399, 6517, 395, 496, 28879, 80746 #### [facility] [place] [address] Screening Unit Registered Nurse: Everett Keyes MD Lymphocytes (Bld) [#/Vol] 3.318 10*3/uL Normal 850-3900 [facility] Comment on above: Performed By: #### 3 020, %SBCULI, 04645, 6399, 6517, 395, 496, 80741, 09644 #### [facility] [address] [place] [address] Screening Unit Registered Nurse: Everett Keyes MD Lymphocytes/100 WBC (Bld) 37.7 % Normal [facility] Comment on above: Performed By: #### 3 020, %SBCULI, 49768, 6399, 6517, 395, 496, 67334, 35308 #### [facility] [place] [address] Screening Unit Registered Nurse: Everett Keyes MD MCH (RBC) [Entitic mass] 30.3 pg Normal 27.0-33.0 [facility] Comment on above: Performed By: #### 3 020, %SBCULI, 93133, 6399, 6517, 395, 496, 62498, 61404 #### [facility] [address], [address] [place] [address] Screening Unit Registered Nurse: Everett Keyes MD MCHC (RBC) [Mass/Vol] 31.5 g/dL Low 32.0-36.0 [facility] Comment on above: Result Comment: For adults, a slight decrease in the calculated MCHC value (in the range of 30 to 32 g/dL) is most likely not clinically significant; however, it should be interpreted with caution in correlation with other red cell parameters and the patient's clinical condition. Performed By: #### 3 020, %SBCULI, 30883, 6399, 6517, 395, 496, 04844, 57073 #### [facility] [place] [address] Screening Unit Registered Nurse: Everett Keyes MD MCV (RBC) [Entitic vol] 96.3 fL Normal 80.0-100.0 [facility] Comment on above: Performed By: #### 3 020, %SBCULI, 92998, 6399, 6517, 395, 496, 98780, 66222 #### [facility] [address], [address] [place], [place] [id number] Screening Unit Registered Nurse: Everett Keyes MD Monocytes (Bld) [#/Vol] 0.836 10*3/uL Normal 200-950 [facility] Comment on above: Performed By: #### 3 020, %SBCULI, 71886, 6399, 6517, 395, 496, 68860, 71716 #### [facility] [address], [address] [place] [address] Screening Unit Registered Nurse: Everett Keyes MD Monocytes/100 WBC (Bld) 9.5 % Normal [facility] Comment on above: Performed By: #### 3 020, %SBCULI, 24187, 6399, 6517, 395, 496, 10561, 32575 #### [facility] [place] [address] Screening Unit Registered Nurse: Everett Keyes MD Neutrophils (Bld) [#/Vol] 4.514 10*3/uL Normal 8456-1547 [facility] Comment on above: Performed By: #### 3 020, %SBCULI, 69839, 6399, 6517, 395, 496, 76459, 99535 #### [facility] [place] [address] Screening Unit Registered Nurse: Everett Keyes MD Neutrophils/100 WBC (Bld) 51.3 % Normal [facility] Comment on above: Performed By: #### 3 020, %SBCULI, 57816, 6399, 6517, 395, 496, 54525, 19393 #### [facility] [place] [address] Screening Unit Registered Nurse: Everett Keyes MD Platelet mean volume (Bld) [Entitic vol] 10.3 fL Normal 7.5-12.5 [facility] Comment on above: Performed By: #### 3 020, %SBCULI, 04256, 6399, 6517, 395, 496, 19789, 61073 #### [facility] [place] [address] Screening Unit Registered Nurse: Everett Keyes MD Platelets (Bld) [#/Vol] 219 10*3/uL Normal 140-400 [facility] Comment on above: Performed By: #### 3 020, %SBCULI, 77296, 6399, 6517, 395, 496, 08970, 51572 #### [facility] [place] [address] Screening Unit Registered Nurse: Everett Keyes MD RBC (Bld) [#/Vol] 4.02 10*6/uL Normal 3.80-5.10 [facility] Comment on above: Performed By: #### 3 020, %SBCULI, 47936, 6399, 6517, 395, 496, 34580, 11135 #### [facility] [address] [place] [address], [address] [place] [address] Screening Unit Registered Nurse: Everett Keyes MD WBC (Bld) [#/Vol] 8.8 10*3/uL Normal 3.8-10.8 [facility] Comment on above: Performed By: #### 3 020, %SBCULI, 38441, 6399, 6517, 395, 496, 62426, 69829 #### [facility] [address] [place] [address], [address] [place] [address] Screening Unit Registered Nurse: Everett Keyes MD CBC and Differentialon 07-19 Basophils (Bld) [#/Vol] 53 10*3/uL [facility] Basophils/100 WBC (Bld) 0.6 % [facility] Eosinophils (Bld) [#/Vol] 79 10*3/uL [facility] Eosinophils/100 WBC (Bld) 0.9 % [facility] Erythrocyte distribution width (RBC) [Ratio] 12.1 % 11.0 - 15.0 % [facility] Hematocrit (Bld) [Volume fraction] 38.7 % 35.0 - 45.0 % [facility] Hemoglobin (Bld) [Mass/Vol] 12.2 g/dL 11.7 - 15.5 g/dL [facility] Interpretation and review of laboratory results Abnormal [facility] Lymphocytes (Bld) [#/Vol] 3318 10*3/uL [facility] Lymphocytes/100 WBC (Bld) 37.7 % [facility] MCH (RBC) [Entitic mass] 30.3 pg 27.0 - 33.0 pg [facility] MCHC (RBC) [Mass/Vol] 31.5 g/dL Low 32.0 - 36.0 g/dL [facility] Comment on above: For adults, a slight decrease in the calculated MCHC value (in the range of 30 to 32 g/dL) is most likely not clinically significant; however, it should be interpreted with caution in correlation with other red cell parameters and the patient's clinical condition. MCV (RBC) [Entitic vol] 96.3 fL 80.0 - 100.0 fL [facility] Monocytes (Bld) [#/Vol] 836 10*3/uL [facility] Monocytes/100 WBC (Bld) 9.5 % [facility] Neutrophils (Bld) [#/Vol] 4514 10*3/uL [facility] Neutrophils/100 WBC (Bld) 51.3 % [facility] Platelet mean volume (Bld) [Entitic vol] 10.3 fL 7.5 - 12.5 fL [facility] Platelets (Bld) [#/Vol] 219 10*3/uL [facility] RBC (Bld) [#/Vol] 4.02 10*6/uL [facility] ealth WBC (Bld) [#/Vol] 8.8 10*3/uL [facility] METABOLIC PANE L W/ANION GAPon 07-19-2024 Albumin [Mass/Vol] 4.3 g/dL Normal 3.6-5.1 [facility] Comment on above: Performed By: #### 3 020, %SBCULI, 53967, 6399, 6517, 395, 496, 91155, 96971 #### [facility] [place] [address] Screening Unit Registered Nurse: Everett Keyes MD ALP [Catalytic activity/Vol] 116 U/L Normal 37-153 [facility] Comment on above: Performed By: #### 3 020, %SBCULI, 23127, 6399, 6517, 395, 496, 56301, 10867 #### [place] [address] Screening Unit Registered Nurse: Everett Keyes MD ALT [Catalytic activity/Vol] 9 U/L Normal 6-29 [facility] Comment on above: Performed By: #### 3 020, %SBCULI, 54203, 6399, 6517, 395, 496, 74294, 96280 #### [place] [address] Screening Unit Registered Nurse: Everett Keyes MD AST [Catalytic activity/Vol] 14 U/L Normal 10-35 [facility] Comment on above: Performed By: #### 3 020, %SBCULI, 58419, 6399, 6517, 395, 496, 82634, 69712 #### [facility] [place] [address] Screening Unit Registered Nurse: Everett Keyes MD Bilirubin [Mass/Vol] 0.4 mg/dL Normal 0.2-1.2 [facility] Comment on above: Performed By: #### 3 020, %SBCULI, 07903, 6399, 6517, 395, 496, 48254, 71549 #### [facility] [place] [address] Screening Unit Registered Nurse: Everett Keyes MD Calcium [Mass/Vol] 9.1 mg/dL Normal 8.6-10.4 [facility] Comment on above: Performed By: #### 3 020, %SBCULI, 32820, 6399, 6517, 395, 496, 85391, 36839 #### [facility] [place] [address] Screening Unit Registered Nurse: Everett Keyes MD Chloride [Moles/Vol] 105 mmol/L Normal 98-110 [facility] Comment on above: Performed By: #### 3 020, %SBCULI, 43844, 6399, 6517, 395, 496, 55617, 88861 #### [facility] [place] [address] Screening Unit Registered Nurse: Everett Keyes MD CO2 [Moles/Vol] 26 mmol/L Normal 20-32 [facility] Comment on above: Performed By: #### 3 020, %SBCULI, 53362, 6399, 6517, 395, 496, 59121, 01609 #### [facility] [place] [address] Screening Unit Registered Nurse: Everett Keyes MD Creatinine [Mass/Vol] 1.27 mg/dL High 0.60-0.95 [facility] Comment on above: Performed By: #### 3 020, %SBCULI, 37312, 6399, 6517, 395, 496, 79232, 69003 #### [facility] [address], [address] [place], [place] [id number] Screening Unit Registered Nurse: Everett Keyes MD ELECTROLYTE BALANCE 8 mmol/L (calc) Normal 7-17 [facility] Comment on above: Performed By: #### 3 020, %SBCULI, 41795, 6399, 6517, 395, 496, 75323, 48168 #### [facility] [address], [address] [place], [place] [id number] Screening Unit Registered Nurse: Everett Keyes MD GFR/1.73 sq M.predicted among non-blacks MDRD (S/P/Bld) [Vol rate/Area] 41 mL/min/{1.73_m2} Low > OR = 60 [facility] Comment on above: Performed By: #### 3 020, %SBCULI, 17497, 6399, 6517, 395, 496, 44721, 32341 #### [facility] [address], [address] [place] [address] Screening Unit Registered Nurse: Everett Keyes MD Glucose [Mass/Vol] 102 mg/dL Normal 65-139 [facility] Comment on above: Result Comment: Non-fasting reference interval For someone without known diabetes, a glucose value between 100 and 125 mg/dL is consistent with prediabetes and should be confirmed with a follow-up test. Performed By: #### 3 020, %SBCULI, 80619, 6399, 6517, 395, 496, 40202, 59132 #### [facility] [address], [address] [place] [id number] Screening Unit Registered Nurse: Everett Keyes MD Potassium [Moles/Vol] 4.1 mmol/L Normal 3.5-5.3 [facility] Comment on above: Performed By: #### 3 020, %SBCULI, 33656, 6399, 6517, 395, 496, 35952, 90330 #### [facility] of [address], [address] [place] [address] Screening Unit Registered Nurse: Everett Keyes MD Protein [Mass/Vol] 6.6 g/dL Normal 6.1-8.1 [facility] Comment on above: Performed By: #### 3 020, %SBCULI, 67093, 6399, 6517, 395, 496, 64251, 85575 #### [facility] [place] [address] Screening Unit Registered Nurse: Everett Keyes MD Sodium [Moles/Vol] 139 mmol/L Normal 135-146 [facility] Comment on above: Performed By: #### 3 020, %SBCULI, 11142, 6399, 6517, 395, 496, 22475, 92442 #### [facility] [place] [address] Screening Unit Registered Nurse: Everett Keyes MD Urea nitrogen [Mass/Vol] 28 mg/dL High 7-25 [facility] Comment on above: Performed By: #### 3 020, %SBCULI, 58315, 6399, 6517, 395, 496, 54827, 97566 #### [facility] of [place] [address] Screening Unit Registered Nurse: Everett Keyes MD Comprehensive metabolic 2000 panelon 07-19-2024 Albumin [Mass/Vol] 4.3 g/dL 3.6 - 5.1 g/dL [facility] ALP [Catalytic activity/Vol] 116 U/L 37 - 153 U/L [facility] ALT [Catalytic activity/Vol] 9 U/L 6 - 29 U/L [facility] Anion gap [Moles/Vol] 8 mmol/L [facility] AST [Catalytic activity/Vol] 14 U/L 10 - 35 U/L [facility] Bilirubin [Mass/Vol] 0.4 mg/dL 0.2 - 1.2 mg/dL [facility] Calcium [Mass/Vol] 9.1 mg/dL 8.6 - 10. 4 mg/dL [facility] Chloride [Moles/Vol] 105 mmol/L 98 - 110 mmol/L [facility] CO2 [Moles/Vol] 26 mmol/L 20 - 32 mmol/L [facility] Creatinine [Mass/Vol] 1.27 mg/dL High 0.60 - 0.95 mg/dL [facility] GFR/1.73 sq M.predicted among non-blacks MDRD (S/P/Bld) [Vol rate/Area] 41 mL/min/{1.73_m2} Low > OR = 60 mL/min/1.7 3m2 [facility] Glucose [Mass/Vol] 102 mg/dL 65 - 139 mg/dL [facility] Comment on above: Non-fasting reference interval For someone without known diabetes, a glucose value between 100 and 125 mg/dL is consistent with prediabetes and should be confirmed with a follow-up test. Interpretation and review of laboratory results Abnormal [facility] Potassium [Moles/Vol] 4.1 mmol/L 3.5 - 5.3 mmol/L [facility] Protein [Mass/Vol] 6.6 g/dL 6.1 - 8.1 g/dL [facility] Sodium [Moles/Vol] 139 mmol/L 135 - 146 mmol/L [facility] Urea nitrogen [Mass/Vol] 28 mg/dL High 7 - 25 mg/dL [facility] LIPID PANEL WITH REFLEX TO D IRECT LDLon 07-19-2024 Cholesterol [Mass/Vol] 108 mg/dL Normal <200 [facility] Comment on above: Order Comment: FASTI NG:NOFASTING: NO Performed By: #### 3 020, %SBCULI, 03661, 6399, 6517, 395, 496, 63264, 06004 #### [facility] [address], [address] [place] [phone] Screening Unit Registered Nurse: Everett Keyes MD Cholesterol in HDL [Mass/Vol] 69 mg/dL Normal > OR = 50 [facility] Comment on above: Order Comment: FASTI NG:NOFASTING: NO Performed By: #### 3 020, %SBCULI, 81182, 6399, 6517, 395, 496, 53605, 46885 #### [facility] [address], [address] [place] [phone] Screening Unit Registered Nurse: Everett Keyes MD Cholesterol in LDL [Mass/Vol] 23 mg/dL Normal [facility] Comment on above: Order Comment: FASTI NG:NOFASTING: NO Result Comment: Refe rence range: <100 Desirable range <100 mg/dL for primary prevention; <70 mg/dL for patients with CHD or diabetic patients with > or = 2 CHD risk factors. LDL-C is now calculated using the [place] calculation, which is a validated novel method providing better accuracy than the Friedewald equation in the estimation of LDL-C. Anshu SS et al. ROGELIO. 2013;310(19): 7718-1354 (http://education.[employer]/faq/SKB174) Performed By: #### 3 020, %SBCULI, 35269, 6399, 6517, 395, 496, 89956, 76008 #### [facility] [address], [address] [place] [address] Screening Unit Registered Nurse: Everett Keyes MD Cholesterol.total/C holesterol in HDL [Mass ratio] 1.6 {ratio} Normal <5.0 [facility] Comment on above: Order Comment: FASTI NG:NOFASTING: NO Performed By: #### 3 020, %SBCULI, 10057, 6399, 6517, 395, 496, 46059, 82260 #### [facility] [address], [address] [place] [address] Screening Unit Registered Nurse: Everett Keyes MD NON HDL CHOLESTEROL 39 mg/dL (calc) Normal <130 [facility] Comment on above: Order Comment: FASTI NG:NOFASTING: NO Result Comment: For patients with diabetes plus 1 major ASCVD risk factor, treating to a non-HDL-C goal of <100 mg/dL (LDL-C of <70 mg/dL) is considered a therapeutic option. Performed By: #### 3 020, %SBCULI, 77288, 6399, 6517, 395, 496, 30096, 89169 #### [facility] [address], [address] [place] [address] Screening Unit Registered Nurse: Everett Keyes MD Triglyceride [Mass/Vol] 80 mg/dL Normal <150 [facility] Comment on above: Order Comment: FASTI NG:NOFASTING: NO Performed By: #### 3 020, %SBCULI, 04092, 6399, 6517, 395, 496, 60064, 16801 #### [facility] [address], [address] [place] [address] Screening Unit Registered Nurse: Everett Keyes MD Lipid 1996 panelon 5 Cholesterol [Mass/Vol] 108 mg/dL [facility] - 200 mg/dL [facility] Cholesterol in HDL [Mass/Vol] 69 mg/dL > OR = 50 [facility] Cholesterol in LDL [Mass/Vol] 23 mg/dL mg/dL (calc) [facility] Comment on above: Reference range: <10 0 Desirable range <100 mg/dL for primary prevention; <70 mg/dL for patients with CHD or diabetic patients with > or = 2 CHD risk factors. LDL-C is now calculated using the [place] calculation, which is a validated novel method providing better accuracy than the Friedewald equation in the estimation of LDL-C. Anshu SS et al. ROGELIO. 2013;310(19): 4225-3856 (http://education.[employer]/faq/FOG745) Cholesterol non HDL [Mass/Vol] 39 mg/dL [facility] Comment on above: For patients with di abetes plus 1 major ASCVD risk factor, treating to a non-HDL-C goal of <100 mg/dL (LDL-C of <70 mg/dL) is considered a therapeutic option. Cholesterol.total/C holesterol in HDL [Mass ratio] 1.6 {ratio} [facility] Triglyceride [Mass/Vol] 80 mg/dL [facility] - 150 mg/dL [facility] No Panel Informationon 07-19 FASTING:NO FASTING: NO [facility] FASTING:NO FASTING: NO [facility] TSH DL <= 0.005 mIU/L Qnon 0 07-19-2024 TSH Qn 1.13 m[IU]/L [facility] TSH W/REFLEX TO FT4on 2024 TSH W/REFLEX TO FT4 1.13 mIU/L Normal 0.40-4.50 [facility] Comment on above: Performed By: #### 3 020, %SBCULI, 48253, 6399, 6517, 395, 49, 58335, 89712 #### [facility] [address] [facility], [address] [place] [address] Screening Unit Registered Nurse: Everett Keyes MD ECG 12 Leadon 06-06-2024 Sinus Rhythm WITHIN NORMAL LIMITS [facility] ECG 12-LEADon 06-06-2024 ECG 12-LEAD Sinus Rhythm WITHIN NORMAL LIMITS Normal [facility] US THYROIDon 04-26-2024 US THYROID Interpreted By: Cate Bass, STUDY: US THYROID; 04/26/2024 10:10 am INDICATION: Signs/Symptoms:NODULE. COMPARISON: None. ACCESSION NUMBER(S): [id number] ORDERING CLINICIAN: CLAUDINE MAJANO TECHNIQUE: Grayscale and color Doppler imaging of the thyroid gland was performed. FINDINGS: Right lobe of the thyroid: 4.5 cm x 2.0 cm x 1.7 cm. *1.5 x 1.2 x 1.3 cm solid isoechoic nodule, wider than tall with microcalcifications. TI-RADS category 4. Based on size greater than or equal to 1.5 cm fine-needle aspiration biopsy may be warranted for this nodule. This lies at the lower pole right lobe. *There is a mixed solid and cystic, predominantly cystic nodule wider than tall mid to upper right lobe of the thyroid gland measuring 1.1 x 0.8 x 0.6 cm. TI-RADS category 2. *There is a 4 mm cyst right lobe of the thyroid gland. Left lobe of the thyroid: 5.1 cm x 1.7 cm x 1.1 cm. *There is a 6 x 7 x 9 mm wider than tall cystic nodule mid aspect left lobe of the thyroid gland, TI-RADS category 2. *There is a 3 x 6 x 7 mm solid mass with a large coarse macro calcification mid upper pole left lobe of the thyroid gland, TI-RADS category 4. *1.3 x 1.3 x 1.9 cm wider than tall solid lesion without microcalcifications, TI-RADS category 3 Thyroid isthmus: 0.4 cm.. IMPRESSION: Bilateral thyroid nodules as above. None of the nodules are suspicious at this time. MACRO: None. Signed by: Cate Bolden 04/27/2024 12:09 PM Dictation workstation: [id number] [facility] CT CERVICAL SPINE WITHOUT CO NTRASTon 03-16-2024 CT CERVICAL SPINE WITHOUT CONTRAST EXAMINATION: CT CERVICAL SPINE WITHOUT CONTRAST HISTORY: ORDERING SYSTEM PROVIDED HISTORY: Head trauma, TECHNOLOGIST PROVIDED HISTORY: Injury/Trauma Reason for exam: trauma Encounter Type: Initial Mechanism of injury: fall ORDERING SYSTEM PROVIDED DIAGNOSIS CODES: COMPARISON: None TECHNIQUE: CT cervical spine without contrast. Dose reduction techniques were achieved by using automated exposure control and/or adjustment of mA and/or kV according to patient size and/or use of iterative reconstruction technique. FINDINGS: There is normal cervical lordosis. Grade 1 anterolisthesis of C3 on C4, C4 on C5 and C5 on C6. Vertebral body heights are maintained. Moderate multilevel degenerative changes of the cervical spine. No acute fracture. Craniocervical junction is normal in appearance. Atlantodental distance is not widened. No prevertebral soft tissue swelling. Multinodular thyroid goiter with hypoattenuating left thyroid lobe nodule measuring up to at least 1.5 cm. IMPRESSION: No acute fracture. Multinodular thyroid goiter with hypoattenuating left thyroid lobe nodule measuring up to at least 1.5 cm. Recommend outpatient workup with dedicated thyroid ultrasound if not previously performed. Workstation ID: [id number] Dictated by: ROMEO HUNTER on ThuMar 16, 2024 2:53:10 PM EST Transcribed by: ROMEO HUNTER on ThuMar 16, 2024 2:53:10 PM EST Finalized by: ROMEO HUNTER on ThuMar 16, 2024 2:53:10 PM EST [facility] Comment on above: Order Comment: Injur y/Trauma or Illness?:Injury/Trauma How long have you had these symptoms (acute/chronic)?:Acute Reason for exam?:trauma Type of Exam?:Initial Mechanism of injury?:fall CT HEAD OR BRAIN WITHOUT CON TRASTon 03-16-2024 CT HEAD OR BRAIN WITHOUT CONTRAST EXAMINATION: CT HEAD OR BRAIN WITHOUT CONTRAST HISTORY: ORDERING SYSTEM PROVIDED HISTORY: Head trauma, TECHNOLOGIST PROVIDED HISTORY: Injury/Trauma Reason for exam: trauma Encounter Type: Initial Mechanism of injury: fall ORDERING SYSTEM PROVIDED DIAGNOSIS CODES: COMPARISON: CT head, 07/07/2023. TECHNIQUE: CT examination of the head without IV contrast. Dose reduction techniques were achieved by using automated exposure control and/or adjustment of mA and/or kV according to patient size and/or use of iterative reconstruction technique. FINDINGS: The paranasal sinuses are clear. The mastoid air cells clear. Middle ear cavities clear. Skull base intact. There are no skull lesions. Nasopharynx normal. There is some soft tissue swelling in the periorbital region and temporal region on the right. Intraorbital contents are intact. There is soft tissue swelling on the right side of the head. Brain atrophy is stable. No hydrocephalus. No mass effect. No shift of midline. No acute intracranial hemorrhage. No mass. Chronic microvascular ischemic changes are stable. IMPRESSION: 1. Soft tissue swelling on the right side of the head. No skull fracture. 2. No acute intracranial findings. No intracranial hemorrhage. [facility] Workstation ID: [id number] Dictated by: PRAKASH RODRIGUEZ on ThuMar 16, 2024 2:43:08 PM EST Transcribed by: TAMAR SIMON on ThuMar 16, 2024 2:59:51 PM EST Finalized by: PRAKASH RODRIGUEZ on ThuMar 16, 2024 6:38:[address] [facility] Comment on above: Order Comment: Injur y/Trauma or Illness?:Injury/Trauma How long have you had these symptoms (acute/chronic)?:Acute Reason for exam?:trauma Type of Exam?:Initial Mechanism of injury?:fall CT MAXILLOFACIAL WITHOUT CON TRASTon 03-16-2024 CT MAXILLOFACIAL WITHOUT CONTRAST EXAMINATION: CT MAXILLOFACIAL WITHOUT CONTRAST 03/16/2024 COMPARISON: CT scan of the head performed on the same day. HISTORY: Injury/Trauma or Illness?:Injury/Trauma How long have you had these symptoms (acute/chronic)?:Acute faical pain TECHNIQUE: 1.25 mm axial images performed through the maxillofacial structures. 2 mm sagittal and coronal MPR reconstructions performed. Dose reduction techniques were achieved by using automated exposure control and/or adjustment of mA and/or kV according to patient size and/or use of iterative reconstruction technique. FINDINGS: No acute fracture, subluxation or dislocation identified. Visualized paranasal sinuses and mastoid air cells are clear. Degenerative changes of the visualized spine and bilateral TMJs. The globes and retrobulbar spaces have a normal appearance. Right lateral periorbital soft tissue edema. Remaining visualized soft tissues are unremarkable. IMPRESSION: 1. No acute bony trauma identified. 2. Right lateral periorbital soft tissue edema. The globes and retrobulbar spaces are unremarkable. [facility]/mkv Workstation ID: [id number] Dictated by: FLAQUITA BOURNE on ThuMar 16, 2024 2:52:27 PM EST Transcribed by: ROBERT DAVENPORT on ThuMar 16, 2024 3:05:05 PM EST Finalized by: FLAQUITA BOURNE on ThuMar 16, 2024 9:34:16 PM EST [facility] Comment on above: Order Comment: Injur y/Trauma or Illness?:Injury/Trauma How long have you had these symptoms (acute/chronic)?:Acute Reason for exam?:trauma Type of Exam?:Initial Mechanism of injury?:fall ED Prov Noteon 03-16-2024 ED Prov Note ED PROVIDER NOTE [facility] NAME: Cat Carroll AGE: 88 y.o. : 1935 VISIT DATE: 03/16/2024 CSN: [id number] PCP: Claudine Majano MD Chief Complaint Patient presents with Fall patient is a 88-year-old female with a past medical history of arthritis, Kelly's esophagitis, skin cancer, fibromyalgia, chronic kidney disease, GERD, hypertension, history of IA, trigeminal neuralgia and osteoporosis who presents today for concern of mechanical fall. Patient states she pivoted quickly and lost her footing yesterday and landed on the right side of her body hitting the right side of her face. Patient admits to swelling to the right side of her face but denies any significant facial tenderness, headaches, visual changes, midline spinal canal tenderness, lightheadedness, dizziness, syncope or additional focal neurological deficit. Patient takes a baby aspirin but does not take an additional blood thinners. Patient admits to right sided shoulder pain right-sided rib pain and right-sided hip pain with denies any additional musculoskeletal injury. Patient requesting pain medication. 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 Rick thompson. Dr Hinds BLADDER REPAIR 1989 CATARACT EXT/ECCE Bilateral 2011 Dr [place]ula CHOLECYSTECTOMY CYST REMOVAL Right 2000 cyst removal from rt breast-benign DILATION AND CURETTAGE (D AND C) 1970 x 2 EGD 01/01/2015 Dr. ZavalaRovigd-Jvfzlgvhb-Dgwtpnd's esophagus EGD 08/2014 Dr. Vinicius RamachandranR-Mzctlkqze-Noyfzqk's esophagitis biopsies negative for dysplasia. ESOPHAGOGASTRODUODENOSCOPY 01/04/2018 Dr. Zavala -biopsies performed-Kelly's esophagitis-carcinoid tumor posterior wall duodenum FRACTURE SURGERY Right Plates and screws in rt arm after fracture. dr Dolan [facility] LEFT HEART CATH N/A 08/23/2018 Procedure: Left Heart Cath; Surgeon: Glen Fair MD; Location: [facility]; Service: Cardiovascular HYSTERECTOMY 1975 KIDNEY SURGERY 1969 had exploratory surgery d/t floating kidney Dx KNEE SURGERY Left 1997 left knee arthoscopy LUMPECTOMY Left 1989 benign ORIF HIP GAMMA NAIL Right 04/02/2020 IN DSTR NROLYTC AGNT PARVERTEB FCT ADDL LMBR/SACRAL Bilateral 01/21/2024 Procedure: Lumbar medial branch nerve radiofrequency ablation, bilateral lumbar 1-2-3; Surgeon: Jake Navarro DO; Location: Main OR; Service: Pain Management IN DSTR NROLYTC AGNT PARVERTEB FCT SNGL LMBR/SACRAL Bilateral 01/21/2024 Procedure: Lumbar medial branch nerve radiofrequency ablation, bilateral lumbar 1-2-3; Surgeon: Jake Navarro DO; Location: Main OR; Service: Pain Management IN NJX DX/THER AGT PVRT FACET JT LMBR/SAC 1 LEVEL Bilateral 06/18/2023 Procedure: Lumbar medial branch nerve blocks, bilateral lumbar 2-3-4; Surgeon: Jake Navarro DO; Location: Main OR; Service: Pain Management IN NJX DX/THER AGT PVRT FACET JT LMBR/SAC 1 LEVEL Bilateral 07/02/2023 Procedure: Lumbar medial branch nerve blocks, bilateral lumbar 2-3-4; Surgeon: Jake Navarro DO; Location: [facility] Main [facility]; Service: Pain Management SQUAMOUS CELL CARCINOMA EXCISION x4 TOTAL KNEE ARTHROPLASTY Left 2013 dr dolan TUMOR REMOVAL 2012 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 Family History Problem Relation Age of Onset Diabetes Mother Heart disease Mother Heart disease Father Stroke Father Diabetes Sister Dementia Sister Heart disease Brother Diabetes Brother Diabetes Maternal Uncle Bipolar disorder Daughter Diabetes Son Cancer Neg Hx Aneurysm Neg Hx Seizures Neg Hx Social History Socioeconomic History Marital status: Number of children: 2 Years of education: 12 Tobacco Use Smoking status: Former Current packs/day: 0.00 Types: Cigarettes Quit date: 04/03/1976 Years since quittin.9 Passive exposure: Never Smokeless tobacco: Never Vaping Use Vaping status: Never Used Substance and Sexual Activity Alcohol use: No Drug use: No Sexual activity: Never Social Drivers of Health Financial Resource Strain: Low Risk (03/16/2023) Overall Financial Resource Strain (CARDIA) Difficulty of Paying Living Expenses: Not hard at all Food Insecurity: No Food Insecurity (07/08/2023) Hu (more content not included)... [facility] XR HIP RIGHT 2-3 VIEWS (ROUT INE)on 03-16-2024 XR HIP RIGHT 2-3 VIEWS (ROUTINE) EXAMINATION: XR HIP RIGHT 2-3 VIEWS (ROUTINE) 03/16/2024 2:21 PM HISTORY: ORDERING SYSTEM PROVIDED HISTORY: Hip pain, TECHNOLOGIST PROVIDED HISTORY: Injury/Trauma Reason for exam: fall Cancer History: skin cancer, carcinoid tumor small intestine Surgery, RadiationHistory: u Encounter Type: Initial Mechanism of injury: fall ORDERING SYSTEM PROVIDED DIAGNOSIS CODES: COMPARISON: Pelvis and bilateral hip x-rays, 09/02/2022. FINDINGS: Two views obtained. There has been internal fixation of an intratrochanteric fracture of the proximal femur on the right. This is stable. The fracture is healed. No new acute fracture. Hardware is intact. No dislocation. Mild osteoarthritis in the right hip joint. IMPRESSION: Stable postoperative changes from internal fixation of prior intratrochanteric fracture of the proximal femur. No new fracture. No dislocation. [facility] Workstation ID: [id number] Dictated by: PRAKASH RODRIGUEZ on ThuMar 16, 2024 2:57:12 PM EST Transcribed by: TAMAR SIMON on ThuMar 16, 2024 3:12:55 PM EST Finalized by: PRAKASH RODRIGUEZ on ThuMar 16, 2024 6:38:23 PM EST [facility] Comment on above: Order Comment: Injur y/Trauma or Illness?:Illness/Other How long have you had these symptoms (acute/chronic)?:Acute Reason for exam?:dizziness Type of Exam?:Initial Additional signs and symptoms?:dizziness XR RIBS RIGHT 3+ VIEWS (MARGARITA FRANCISCO)on 03-16-2024 XR RIBS RIGHT 3+ VIEWS (STANDARD) EXAMINATION: XR RIBS RIGHT 3+ VIEWS (STANDARD) 03/16/2024 2:21 PM HISTORY: ORDERING SYSTEM PROVIDED HISTORY: Rib pain, TECHNOLOGIST PROVIDED HISTORY: Injury/Trauma Reason for exam: rib pain Cancer History: skin cancer, carcinoid tumor small intestine Surgery, RadiationHistory: u Encounter Type: Initial Mechanism of injury: fall ORDERING SYSTEM PROVIDED DIAGNOSIS CODES: COMPARISON: Chest x-ray, 03/04/2023. FINDINGS: Three views obtained. There are displaced fractures along the posterolateral aspect of the right 3rd, 4th and 5th ribs. There are mildly displaced fractures along the anterolateral aspects of the 5th through 8th ribs. Right lung is clear. No pneumothorax. IMPRESSION: 1. There are multiple mildly displaced rib fractures on the right. 2. No pleural effusion. No pneumothorax identified. 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, carcinoid tumor small intestine Surgeries, chemotherapy, or radiation?:u Type of Exam?:Initial Mechanism of injury?:fall XR SHOULDER RIGHT 2+ VIEWS ( STANDARD)on 03-16-2024 XR SHOULDER RIGHT 2+ VIEWS (STANDARD) EXAMINATION: XR SHOULDER RIGHT 2+ VIEWS (STANDARD) HISTORY: ORDERING SYSTEM PROVIDED HISTORY: Shoulder pain, TECHNOLOGIST PROVIDED HISTORY: Injury/Trauma Reason for exam: pain Cancer History: skin cancer, carcinoid tumor small intestine Surgery, RadiationHistory: u Encounter Type: Initial Mechanism of injury: fall ORDERING SYSTEM PROVIDED DIAGNOSIS CODES: COMPARISON: Chest x-ray: 03/04/2023 FINDINGS: Three views of the right shoulder. The bones are osteopenic. There is a plate and multiple screws transfixing an old healed fracture deformity of the proximal humeral diaphysis. The hardware appears uncomplicated. There is mild degenerative change in the AC joint and glenohumeral joint. There are oblique mildly displaced fractures of the right 3rd through 7th ribs. IMPRESSION: 1. There are acute or subacute mildly displaced fractures of the right 3rd through 7th ribs posterolaterally. There is no obvious pneumothorax. 2. Post fixation of an old healed right proximal humeral fracture. 3. Negative right shoulder for acute fracture. 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 Please refer to patient chart for further information. further information. further information. [facility] Comment on above: Order Comment: Injur y/Trauma or Illness?:Illness/Other How long have you had these symptoms (acute/chronic)?:Chronic Reason for exam?:Lumbar medial branch nerve radiofrequency ablation, bilateral lumbar 2-3-4 - Bilateral Type of Exam?:Initial Additional signs and symptoms?:None Fluoro time in minutes:0.78 Fluoro dose in mGy?:9.68 BASIC METABOLIC PANELon 10-2 Calcium [Mass/Vol] 9.4 mg/dL Normal 8.6-10.4 [facility] Comment on above: Order Comment: FASTI NG:YESFASTING: YES Performed By: #### 3 020, %SBCULI, 93870, 6399, 6517, 395, 496, 57678, 57981 #### [facility] of [place] [address] Screening Unit Registered Nurse: Everett Keyes MD Chloride [Moles/Vol] 105 mmol/L Normal 98-110 [facility] Comment on above: Order Comment: FASTI NG:YESFASTING: YES Performed By: #### 3 020, %SBCULI, 42977, 6399, 6517, 395, 496, 49098, 89004 #### [facility] [place] [address] Screening Unit Registered Nurse: Everett Keyes MD CO2 [Moles/Vol] 26 mmol/L Normal 20-32 [facility] Comment on above: Order Comment: FASTI NG:YESFASTING: YES Performed By: #### 3 020, %SBCULI, 11775, 6399, 6517, 395, 496, 52785, 29598 #### [facility] [place] [address] Screening Unit Registered Nurse: Everett Keyes MD Creatinine [Mass/Vol] 1.52 mg/dL High 0.60-0.95 [facility] Comment on above: Order Comment: FASTI NG:YESFASTING: YES Performed By: #### 3 020, %SBCULI, 25761, 6399, 6517, 395, 496, 70138, 25394 #### [facility] [place] [address] Screening Unit Registered Nurse: Everett Keyes MD GFR/1.73 sq M.predicted among non-blacks MDRD (S/P/Bld) [Vol rate/Area] 33 mL/min/{1.73_m2} Low > OR = 60 [facility] Comment on above: Order Comment: FASTI NG:YESFASTING: YES Performed By: #### 3 020, %SBCULI, 53944, 6399, 6517, 395, 496, 03039, 95367 #### [facility] [place] [address] Screening Unit Registered Nurse: Everett Keyes MD Glucose [Mass/Vol] 126 mg/dL High 65-99 [facility] Comment on above: Order Comment: FASTI NG:YESFASTING: YES Result Comment: Fasting reference interval For someone without known diabetes, a glucose value >125 mg/dL indicates that they may have diabetes and this should be confirmed with a follow-up test. Performed By: #### 3 020, %SBCULI, 18283, 6399, 6517, 395, 496, 41922, 40903 #### [facility] [place] [address] Screening Unit Registered Nurse: Everett Keyes MD Potassium [Moles/Vol] 4.8 mmol/L Normal 3.5-5.3 [facility] Comment on above: Order Comment: FASTI NG:YESFASTING: YES Performed By: #### 3 020, %SBCULI, 52799, 6399, 6517, 395, 496, 87670, 47433 #### [facility] [place] [address] Screening Unit Registered Nurse: Everett Keyes MD Sodium [Moles/Vol] 139 mmol/L Normal 135-146 [facility] Comment on above: Order Comment: FASTI NG:YESFASTING: YES Performed By: #### 3 020, %SBCULI, 36486, 6399, 6517, 395, 496, 39356, 73396 #### [facility] [place] [id number] Screening Unit Registered Nurse: Everett Keyes MD Urea nitrogen [Mass/Vol] 29 mg/dL High 7-25 [facility] Comment on above: Order Comment: FASTI NG:YESFASTING: YES Performed By: #### 3 020, %SBCULI, 76147, 6399, 6517, 395, 496, 03206, 74891 #### [place] [address] Screening Unit Registered Nurse: Everett Keyes MD Urea nitrogen/Creatinine [Mass ratio] 19 mg/mg Normal 6-22 [facility] Comment on above: Order Comment: BEVERLYAlexys NG:YESFASTING: YES Performed By: #### 3 020, %SBCULI, 30010, 6399, 6517, 395, 496, 67593, 25554 #### [facility] [place] [address] Screening Unit Registered Nurse: Everett Keyes MD [facility] 12-25-2023 Albumin [Mass/Vol] 4.2 g/dL Normal 3.6-5.1 [facility] Comment on above: Performed By: #### 3 020, %SBCULI, 84705, 6399, 6517, 395, 496, 26710, 08933 #### [facility] [place] [address] Screening Unit Registered Nurse: Everett Keyes MD Albumin/Globulin [Mass ratio] 1.9 {ratio} Normal 1.0-2.5 [facility] Comment on above: Performed By: #### 3 020, %SBCULI, 85407, 6399, 6517, 395, 496, 17029, 62928 #### [facility] [place] [address] Screening Unit Registered Nurse: Everett Keyes MD ALP [Catalytic activity/Vol] 113 U/L Normal 37-153 [facility] Comment on above: Performed By: #### 3 020, %SBCULI, 05772, 6399, 6517, 395, 496, 83822, 89329 #### [facility] [place] [address] Screening Unit Registered Nurse: Everett Keyes MD ALT [Catalytic activity/Vol] 9 U/L Normal 6-29 [facility] Comment on above: Performed By: #### 3 020, %SBCULI, 34690, 6399, 6517, 395, 496, 57903, 61767 #### [facility] of [address] [place] [address] Screening Unit Registered Nurse: Everett Keyes MD AST [Catalytic activity/Vol] 13 U/L Normal 10-35 [facility] Comment on above: Performed By: #### 3 020, %SBCULI, 96735, 6399, 6517, 395, 496, 77499, 68849 #### [facility] [place] [address] Screening Unit Registered Nurse: Everett Keyes MD Bilirubin [Mass/Vol] 0.5 mg/dL Normal 0.2-1.2 [facility] Comment on above: Performed By: #### 3 020, %SBCULI, 32101, 6399, 6517, 395, 496, 58274, 27574 #### [facility] [place] [address] Screening Unit Registered Nurse: Everett Keyes MD Calcium [Mass/Vol] 9.5 mg/dL Normal 8.6-10.4 [facility] Comment on above: Performed By: #### 3 020, %SBCULI, 52530, 6399, 6517, 395, 496, 92170, 94565 #### [facility] [place] [address] Screening Unit Registered Nurse: Everett Keyes MD Chloride [Moles/Vol] 99 mmol/L Normal 98-110 [facility] Comment on above: Performed By: #### 3 020, %SBCULI, 50150, 6399, 6517, 395, 496, 04317, 10335 #### [facility] [place] [address] Screening Unit Registered Nurse: Everett Keyes MD CO2 [Moles/Vol] 30 mmol/L Normal 20-32 [facility] Comment on above: Performed By: #### 3 020, %SBCULI, 50775, 6399, 6517, 395, 496, 63118, 69851 #### [facility] [place] [address] Screening Unit Registered Nurse: Everett Keyes MD Creatinine [Mass/Vol] 1.70 mg/dL High 0.60-0.95 [facility] Comment on above: Performed By: #### 3 020, %SBCULI, 37318, 6399, 6517, 395, 496, 17553, 59361 #### [facility] [address], [address] [place] [address] Screening Unit Registered Nurse: Everett Keyes MD GFR/1.73 sq M.predicted among non-blacks MDRD (S/P/Bld) [Vol rate/Area] 29 mL/min/{1.73_m2} Low > OR = 60 [facility] Comment on above: Performed By: #### 3 020, %SBCULI, 43595, 6399, 6517, 395, 496, 10202, 65799 #### [facility] [place] [address] Screening Unit Registered Nurse: Everett Keyes MD Globulin (S) [Mass/Vol] 2.2 g/dL Normal 1.9-3.7 [facility] Comment on above: Performed By: #### 3 020, %SBCULI, 17381, 6399, 6517, 395, 496, 87912, 14076 #### [facility] [place] [address] Screening Unit Registered Nurse: Everett Keyes MD Glucose [Mass/Vol] 121 mg/dL Normal 65-139 [facility] Comment on above: Result Comment: Non-fasting reference interval For someone without known diabetes, a glucose value between 100 and 125 mg/dL is consistent with prediabetes and should be confirmed with a follow-up test. Performed By: #### 3 020, %SBCULI, 61634, 6399, 6517, 395, 496, 46813, 82109 #### [facility] [place] [address] Screening Unit Registered Nurse: Everett Keyes MD Potassium [Moles/Vol] 5.0 mmol/L Normal 3.5-5.3 [facility] Comment on above: Performed By: #### 3 020, %SBCULI, 90097, 6399, 6517, 395, 496, 45375, 47315 #### [facility] [place] [address] Screening Unit Registered Nurse: Everett Keyes MD Protein [Mass/Vol] 6.4 g/dL Normal 6.1-8.1 [facility] Comment on above: Performed By: #### 3 020, %SBCULI, 06079, 6399, 6517, 395, 496, 27008, 31508 #### [facility] [place] [address] Screening Unit Registered Nurse: Everett Keyes MD Sodium [Moles/Vol] 137 mmol/L Normal 135-146 [facility] Comment on above: Performed By: #### 3 020, %SBCULI, 84521, 6399, 6517, 395, 496, 99682, 02342 #### [facility] [place] [address] Screening Unit Registered Nurse: Everett Keyes MD Urea nitrogen [Mass/Vol] 32 mg/dL High 7-25 [facility] Comment on above: Performed By: #### 3 020, %SBCULI, 84854, 6399, 6517, 395, 496, 13496, 39749 #### [facility] [place] [address] Screening Unit Registered Nurse: Everett Keyes MD Urea nitrogen/Creatinine [Mass ratio] 19 mg/mg Normal 6-22 [facility] Comment on above: Performed By: #### 3 020, %SBCULI, 81455, 6399, 6517, 395, 496, 19500, 51496 #### [facility] [place] [address] Screening Unit Registered Nurse: Everett Keyes MD IRON, TIBC AND FERRITIN PANE Raffi 12-25-2023 % SATURATION 27 % (calc) Normal 16-45 [facility] Comment on above: Order Comment: FASTI NG:NOFASTING: NO Performed By: #### 3 020, %SBCULI, 07689, 6399, 6517, 395, 496, 25818, 40366 #### [facility] [address], [address] [place] [address] Screening Unit Registered Nurse: Everett Keyes MD Ferritin [Mass/Vol] 34 ng/mL Normal 16-288 [facility] Comment on above: Order Comment: FASTI NG:NOFASTING: NO Performed By: #### 3 020, %SBCULI, 84897, 6399, 6517, 395, 496, 15143, 05189 #### [facility] [address], [address] [place] [address] Screening Unit Registered Nurse: Everett Keyes MD IRON BINDING CAPACITY 333 mcg/dL (calc) Normal 250-450 [facility] Comment on above: Order Comment: FASTI NG:NOFASTING: NO Performed By: #### 3 020, %SBCULI, 70361, 6399, 6517, 395, 496, 97161, 98852 #### [facility] [address], [address] [place] [address] Screening Unit Registered Nurse: Everett Keyes MD IRON, TOTAL 91 mcg/dL Normal 45-160 [facility] Comment on above: Order Comment: FASTI NG:NOFASTING: NO Performed By: #### 3 020, %SBCULI, 23136, 6399, 6517, 395, 496, 75932, 90171 #### [facility] [address], [address] [place] [address] Screening Unit Registered Nurse: Everett Keyes MD CBC WITH AUTO DIFFERENTIALon 12-09-2023 AUTO NRBC 0.0 % Normal [facility] Comment on above: Performed By: #### L [id number] #### [facility] [address] [place], [place] [address] Bhupendra Márquez M.D. [id number] AUTO NRBC ABS COUNT 0.00 K/mcL Normal 0.00-0.00 [facility] Comment on above: Performed By: #### L [id number] #### [facility] [address] [place], [place] [address] Bhupendra Márquez M.D. [id number] BASOPHILS ABSOLUTE COUNT 0.05 K/mcL Normal 0.00-0.30 [facility] Comment on above: Performed By: #### L [id number] #### LAB [address] [place] [address] Bhupendra Márquez M.D. [id number] Basophils/100 WBC (Bld) 0.8 % Normal [facility] Comment on above: Performed By: #### L [id number] #### LAB [address] [place] [address] Bhupendra Márquez M.D. [id number] Eosinophils (Bld) [#/Vol] 0.25 10*3/uL Normal 0.00-0.50 [facility] Comment on above: Performed By: #### L [id number] #### LAB [address] [place] [address] Bhupendra Márquez M.D. [id number] Eosinophils/100 WBC (Bld) 4.0 % Normal [facility] Comment on above: Performed By: #### L [id number] #### LAB [address] [place] [address] Bhupendra Márquez M.D. [id number] Erythrocyte distribution width (RBC) [Ratio] 14.0 % Normal 11.6-14.8 [facility] Comment on above: Performed By: #### L [id number] #### LAB [address] [place] [address] Bhupendra Márquez M.D. [id number] Hematocrit (Bld) [Volume fraction] 38.2 % Normal 36.0-46.0 [facility] Comment on above: Performed By: #### L [id number] #### LAB [address] [place] [address] Bhupendra Márquez M.D. [id number] Hemoglobin (Bld) [Mass/Vol] 11.8 g/dL Low 12.0-16.0 [facility] Comment on above: Performed By: #### L [id number] #### LAB [address] [place] [address] Bhupendra Márquez M.D. [id number] IG ABSOLUTE 0.04 K/mcL Normal 0.00-0.30 [facility] Comment on above: Performed By: #### L [id number] #### LAB [address] [place] [address] Bhupendra Márquez M.D. [id number] IG PERCENT 0.60 % Normal [facility] Comment on above: Result Comment: The IG parameter is the percentage of metamyelocytes, myelocytes and promyelocytes. An immature granulocyte count (IG) of 1% or more suggests the possibility of infection, an IG count of 3% is very likely related to an infection. Performed By: #### L [id number] #### LAB [address] [place] [address] Bhupendra Márquez M.D. [id number] Lymphocytes (Bld) [#/Vol] 2.01 10*3/uL Normal 0.90-4.00 [facility] Comment on above: Performed By: #### L [id number] #### LAB [address] [place] [address] Bhupendra Márquez M.D. [id number] Lymphocytes/100 WBC (Bld) 32.1 % Normal [facility] Comment on above: Performed By: #### L [id number] #### LAB [address] [place] [address] Bhupendra Márquez M.D. [id number] MCH (RBC) [Entitic mass] 29.9 pg Normal 26.0-34.0 [facility] Comment on above: Performed By: #### L [id number] #### LAB [address] [place] [address] Bhupendra Márquez M.D. [id number] MCV (RBC) [Entitic vol] 97.0 fL Normal 80.0-100.0 [facility] Comment on above: Performed By: #### L [id number] #### LAB [address] [place] [address] Bhupendra Márquez M.D. [id number] MEAN CORPUSCULAR HEMOGLOBIN CONC 30.9 g/dL Low 31.0-37.0 [facility] Comment on above: Performed By: #### L [id number] #### LAB [address] [place] [address] Bhupendra Márquez M.D. [id number] Monocytes (Bld) [#/Vol] 0.56 10*3/uL Normal 0.30-0.90 [facility] Comment on above: Performed By: #### L [id number] #### LAB [address] [place] [address] Bhupendra Márquez M.D. [id number] Monocytes/100 WBC (Bld) 8.9 % Normal [facility] Comment on above: Performed By: #### L [id number] #### LAB [address] [place] [address] Bhupendra Márquez M.D. [id number] NEUTROPHILS ABSOLUTE COUNT 3.35 K/mcL Normal 1.70-7.00 [facility] Comment on above: Performed By: #### L [id number] #### LAB [address] [place] [address] Bhupendra Márquez M.D. [id number] Neutrophils/100 WBC (Bld) 53.6 % Normal [facility] Comment on above: Performed By: #### L [id number] #### LAB [address] [place] [address] Bhupendra Márquez M.D. [id number] Platelet mean volume (Bld) [Entitic vol] 10.4 fL Normal 9.4-12.4 [facility] Comment on above: Performed By: #### L [id number] #### LAB [address] [place] [address] Bhupendra Márquez M.D. [id number] Platelets (Bld) [#/Vol] 214 10*3/uL Normal 150-400 [facility] Comment on above: Performed By: #### L [id number] #### LAB [address] [place] [address] Bhupendra Márquez M.D. [id number] RBC (Bld) [#/Vol] 3.94 10*6/uL Low 4.00-5.20 [facility] Comment on above: Performed By: #### L [id number] #### [facility] [address] [place] [address] Bhupendra Márquez M.D. [id number] WBC (Bld) [#/Vol] 6.26 10*3/uL Normal 4.50-11.00 [facility] Comment on above: Performed By: #### L [id number] #### [facility] [address] [place] [address] Bhupendra Márquez M.D. [id number] LIPID PANELon 12-09-2023 Cholesterol [Mass/Vol] 94 mg/dL Low 100-199 [facility] Comment on above: Result Comment: [facility] Guidelines: Cholesterol Desirable: <200 mg/dL Borderline High: 200-239 mg/dL High: greater than or equal to 240 mg/dL Performed By: #### 4 6087 #### LAB [address] [place] [address] Bhupendra Márquez M.D. [id number] Cholesterol in HDL [Mass/Vol] 48 mg/dL Normal 40-59 [facility] Comment on above: Result Comment: [facility] Guidelines: HDL Cholesterol Low: <40 mg/dL Near Optimal: 40-59 mg/dL High: greater than or equal to 60 mg/dL Performed By: #### 4 6087 #### LAB [address] [place] [address] Bhupendra Márquez M.D. [id number] Cholesterol.total/C holesterol in HDL [Mass ratio] 2.0 {ratio} Normal [facility] Comment on above: Result Comment: [facility] Cholesterol/HDL Ratio: Average risk: 4.4 1/2 average risk: 3.3 2 x average risk: 7.1 Performed By: #### 4 6087 #### LAB [address] [place] [address] Bhupendra Márquez M.D. [id number] LDL CHOLESTEROL CALCULATED 19 mg/dL Normal 10-130 [facility] Comment on above: Result Comment: [facility] Guidelines: LDL Cholesterol Optimal: <100 mg/dL Near Optimal/above Optimal: 100-129 mg/dL Borderline High: 130-159 mg/dL High: 160-189 mg/dL Very High: greater than or equal to 190 mg/dL Performed By: #### 4 6087 #### LAB [address] [place] [address] Bhupendra Márquez M.D. [id number] NON HDL CHOL 46 mg/dL Normal [facility] Comment on above: Result Comment: [facility] Guidelines: NON HDL Cholesterol Desirable: <130 mg/dL Borderline High: 130-159 mg/dL High: 160-189 mg/dL Very High: > or = 190 mg/dL Performed By: #### 4 6087 #### LAB [address] [place] [address] Bhupendra Márquez M.D. [id number] Triglyceride [Mass/Vol] 134 mg/dL Normal 30-150 [facility] Comment on above: Result Comment: [facility] on[facility] Cholesterol Education Program Guidelines: Triglyceride Normal: <150 mg/dL Borderline High: 150-199 mg/dL High: 200-499 mg/dL Very High: greater than or equal to 500 mg/dL Performed By: #### 4 6087 #### [facility] [address] [place] [address] Bhupendra Márquez M.D. [id number] MICROALBUMIN/CREATININE RATI O, UR RANDOMon 12-09-2023 Albumin DL <= 20 mg/L (U) [Mass/Vol] 0.5 mg/dL Normal 0.0-1.8 [facility] Comment on above: Performed By: #### 4 6143 #### [facility] [address] [place] [address] Bhupendra Márquez M.D. [id number] CREATININE, URINE, RANDOM 61.5 mg/dL Normal [facility] Comment on above: Performed By: #### 4 6143 #### LAB [address] [place] [address] Bhupendra Márquez M.D. [id number] MICROALBUMIN/CREATI NINE RATIO 8.1 mg/g crea Normal 0.0-25.0 [facility] Comment on above: Performed By: #### 4 6143 #### [facility] [address] [place] [address] Bhupendra Márquez M.D. [id number] T4, FREEon 12-09-2023 Free T4 [Mass/Vol] 1.0 ng/dL Normal 0.7-1.7 [facility] Comment on above: Performed By: #### 4 6567 #### [facility] [address] [place] [address] Bhupendra Márquez M.D. [id number] TSH WITH REFLEX FREE T4on TSH Qn 0.81 m[IU]/L Normal 0.27-4.20 [facility] Comment on above: Performed By: #### L [id number] #### [facility] [address] [place] [address] Bhupendra Márquez M.D. [id number] URINALYSISon 12-09-2023 AMORPHOUS CRYSTALS Few Abnormal None Seen , Rare [facility] Comment on above: Order Comment: Micro scopic examination is performed on all urinalysis samples and only positive findings are reported. The test for blood on the chemical analytic portion of urinalysis may also be positive due to hemoglobinuria and myoglobinuria and if red blood cells are present they are quantified by microscopic examination. Performed By: #### L [id number] #### [facility] [address] [place] [address] Bhupendra Márquez M.D. [id number] BACTERIA, URINE Rare Abnormal None Seen [facility] Comment on above: Order Comment: Micro scopic examination is performed on all urinalysis samples and only positive findings are reported. The test for blood on the chemical analytic portion of urinalysis may also be positive due to hemoglobinuria and myoglobinuria and if red blood cells are present they are quantified by microscopic examination. Performed By: #### L [id number] #### [facility] [address] [place] [address] Bhupendra Márquez M.D. [id number] BILIRUBIN, URINE Negative Normal Negative [facility] Comment on above: Order Comment: Micro scopic examination is performed on all urinalysis samples and only positive findings are reported. The test for blood on the chemical analytic portion of urinalysis may also be positive due to hemoglobinuria and myoglobinuria and if red blood cells are present they are quantified by microscopic examination. Performed By: #### L [id number] #### [facility] [address] [place] [address] Bhupendra Márquez M.D. [id number] BLOOD, URINE Negative Normal Negative [facility] Comment on above: Order Comment: Micro scopic examination is performed on all urinalysis samples and only positive findings are reported. The test for blood on the chemical analytic portion of urinalysis may also be positive due to hemoglobinuria and myoglobinuria and if red blood cells are present they are quantified by microscopic examination. Performed By: #### L [id number] #### [facility] [address] [place] [address] Bhupendra Márquez M.D. [id number] Clarity (U) Cloudy Abnormal Clear [facility] Comment on above: Order Comment: Micro scopic examination is performed on all urinalysis samples and only positive findings are reported. The test for blood on the chemical analytic portion of urinalysis may also be positive due to hemoglobinuria and myoglobinuria and if red blood cells are present they are quantified by microscopic examination. Performed By: #### L [id number] #### [facility] [address] [place] [address] Bhupendra Márquez M.D. [id number] Color (U) Yellow Normal Colorless, Yellow [facility] Comment on above: Order Comment: Micro scopic examination is performed on all urinalysis samples and only positive findings are reported. The test for blood on the chemical analytic portion of urinalysis may also be positive due to hemoglobinuria and myoglobinuria and if red blood cells are present they are quantified by microscopic examination. Performed By: #### L [id number] #### [facility] [address] [place] [address] Bhupendra Márquez M.D. [id number] Glucose Ql (U) Negative Normal Negative [facility] Comment on above: Order Comment: Micro scopic examination is performed on all urinalysis samples and only positive findings are reported. The test for blood on the chemical analytic portion of urinalysis may also be positive due to hemoglobinuria and myoglobinuria and if red blood cells are present they are quantified by microscopic examination. Performed By: #### L [id number] #### [facility] [address] [place] [address] Bhupendra Márquez M.D. [id number] Hyaline casts LM Ql (Urine sed) 6-10 Abnormal 0-2 [facility] Comment on above: Order Comment: Micro scopic examination is performed on all urinalysis samples and only positive findings are reported. The test for blood on the chemical analytic portion of urinalysis may also be positive due to hemoglobinuria and myoglobinuria and if red blood cells are present they are quantified by microscopic examination. Performed By: #### L [id number] #### [facility] [address] [place] [address] Bhupendra Márquez M.D. [id number] Ketones Ql (U) Negative Normal Negative [facility] Comment on above: Order Comment: Micro scopic examination is performed on all urinalysis samples and only positive findings are reported. The test for blood on the chemical analytic portion of urinalysis may also be positive due to hemoglobinuria and myoglobinuria and if red blood cells are present they are quantified by microscopic examination. Performed By: #### L [id number] #### [facility] [address] [place] [address] Bhupendra Márquez M.D. [id number] Leukocyte esterase Test strip Ql (U) Large Abnormal Negative [facility] Comment on above: Order Comment: Micro scopic examination is performed on all urinalysis samples and only positive findings are reported. The test for blood on the chemical analytic portion of urinalysis may also be positive due to hemoglobinuria and myoglobinuria and if red blood cells are present they are quantified by microscopic examination. Performed By: #### L [id number] #### [facility] [address] [place] [address] Bhupendra Márquez M.D. [id number] MUCUS, URINE Rare Normal None Seen, Rare [facility] Comment on above: Order Comment: Micro scopic examination is performed on all urinalysis samples and only positive findings are reported. The test for blood on the chemical analytic portion of urinalysis may also be positive due to hemoglobinuria and myoglobinuria and if red blood cells are present they are quantified by microscopic examination. Performed By: #### L [id number] #### [facility] [address] [address] Bhupendra Márquez M.D. [id number] NITRITE, URINE Negative Normal Negative [facility] Comment on above: Order Comment: Micro scopic examination is performed on all urinalysis samples and only positive findings are reported. The test for blood on the chemical analytic portion of urinalysis may also be positive due to hemoglobinuria and myoglobinuria and if red blood cells are present they are quantified by microscopic examination. Performed By: #### L [id number] #### [facility] [address] [address] Bhupendra Márquez M.D. [id number] pH (U) 8.0 [pH] High 5.0-7.0 [facility] Comment on above: Order Comment: Micro scopic examination is performed on all urinalysis samples and only positive findings are reported. The test for blood on the chemical analytic portion of urinalysis may also be positive due to hemoglobinuria and myoglobinuria and if red blood cells are present they are quantified by microscopic examination. Performed By: #### L [id number] #### [facility] [address] [address] Bhupendra Márquez M.D. [id number] PROTEIN, URINE Negative Normal Negative [facility] Comment on above: Order Comment: Micro scopic examination is performed on all urinalysis samples and only positive findings are reported. The test for blood on the chemical analytic portion of urinalysis may also be positive due to hemoglobinuria and myoglobinuria and if red blood cells are present they are quantified by microscopic examination. Performed By: #### L [id number] #### [facility] [address] [address] Bhupendra Márquez M.D. [id number] RBC LM.HPF (Urine sed) [#/Area] 3 /[HPF] Normal 0-3 [facility] Comment on above: Order Comment: Micro scopic examination is performed on all urinalysis samples and only positive findings are reported. The test for blood on the chemical analytic portion of urinalysis may also be positive due to hemoglobinuria and myoglobinuria and if red blood cells are present they are quantified by microscopic examination. Performed By: #### L [id number] #### [facility] [address] [address] Bhupendra Márquez M.D. [id number] RENAL EPITHELIAL < High 0-0 [facility] Comment on above: Order Comment: Micro scopic examination is performed on all urinalysis samples and only positive findings are reported. The test for blood on the chemical analytic portion of urinalysis may also be positive due to hemoglobinuria and myoglobinuria and if red blood cells are present they are quantified by microscopic examination. Performed By: #### L [id number] #### [facility] [address] [address] Bhupendra Márquez M.D. [id number] Specific gravity (U) [Rel density] 1.014 Normal 1.005-1.02 5 [facility] Comment on above: Order Comment: Micro scopic examination is performed on all urinalysis samples and only positive findings are reported. The test for blood on the chemical analytic portion of urinalysis may also be positive due to hemoglobinuria and myoglobinuria and if red blood cells are present they are quantified by microscopic examination. Performed By: #### L [id number] #### [facility] [address] [address] Bhupendra Márquez M.D. [id number] SQUAMOUS EPITHELIAL 21 /hpf High 0-4 [facility] Comment on above: Order Comment: Micro scopic examination is performed on all urinalysis samples and only positive findings are reported. The test for blood on the chemical analytic portion of urinalysis may also be positive due to hemoglobinuria and myoglobinuria and if red blood cells are present they are quantified by microscopic examination. Performed By: #### L [id number] #### [facility] [address] [place], [place] [address] Bhupendra Márquez M.D. [id number] TRANSITIONAL EPITHELIAL 2 /hpf High 0-1 [facility] Comment on above: Order Comment: Micro scopic examination is performed on all urinalysis samples and only positive findings are reported. The test for blood on the chemical analytic portion of urinalysis may also be positive due to hemoglobinuria and myoglobinuria and if red blood cells are present they are quantified by microscopic examination. Performed By: #### L [id number] #### [facility] [address] [address] Bhupendra Márquez M.D. [id number] UROBILINOGEN, URINE <2.0 Normal <2.0 [facility] Comment on above: Order Comment: Micro scopic examination is performed on all urinalysis samples and only positive findings are reported. The test for blood on the chemical analytic portion of urinalysis may also be positive due to hemoglobinuria and myoglobinuria and if red blood cells are present they are quantified by microscopic examination. Performed By: #### L [id number] #### [facility] [address] [address] Bhupendra Márquez M.D. [id number] WBC CLUMPS, URINE Rare Abnormal None Seen [facility] Comment on above: Order Comment: Micro scopic examination is performed on all urinalysis samples and only positive findings are reported. The test for blood on the chemical analytic portion of urinalysis may also be positive due to hemoglobinuria and myoglobinuria and if red blood cells are present they are quantified by microscopic examination. Performed By: #### L [id number] #### [facility] [address] [place], [place] [address] Bhupendra Márquez M.D. [id number] WBC LM.HPF (Urine sed) [#/Area] 85 /[HPF] High 0-5 [facility] Comment on above: Order Comment: Micro scopic examination is performed on all urinalysis samples and only positive findings are reported. The test for blood on the chemical analytic portion of urinalysis may also be positive due to hemoglobinuria and myoglobinuria and if red blood cells are present they are quantified by microscopic examination. Performed By: #### L [id number] #### LAB [address] [place], [place] [address] Bhupendra Márquez M.D. [id number] URINE AEROBIC CULTUREon 10-0 URINE AEROBIC CULTURE URINE CULTURE COAGULASE NEGATIVE STAPHYLOCOCCUS 10,000-49,000 CFU/mL Coagulase Negative Staphylococcus AEROCOCCUS URINAE 50,000-100,000 CFU/mL Aerococcus urinae This identification method was developed and its performance characteristics were determined by [facility]. It has not been cleared or approved by the [place] Food and Drug Administration. It should not be regarded as investigational or for research. This test is used for clinical purposes. No definitive guidelines for therapy as there is a lack of standardization for susceptibility testing. Aerococcus urinae has been described in the literature as being susceptible to penicillin, amoxicillin, and nitrofurantoin and resistant to sulfonamides. Abnormal [facility] Comment on above: Performed By: #### [id number] #### LAB [address] [place], [place] [address] Bhupendra Márquez M.D. [id number] CBC-Complete Blood Cnt No Di ffon 10-01-2023 Erythrocyte distribution width (RBC) [Ratio] 12.8 % Normal 11.6-14.6 [facility] Comment on above: Performed By: #### L 100.0500, L300.3900, L300.4310, L500.4050 #### [facility] [address] [place], [address] Hematocrit (Bld) [Volume fraction] 37.4 % Normal 37-47 [facility] Comment on above: Performed By: #### L 100.0500, L300.3900, L300.4310, L500.4050 #### [facility] [address] [place], [address] Hemoglobin (Bld) [Mass/Vol] 11.7 g/dL Low 12.0-15.0 [facility] Comment on above: Performed By: #### L 100.0500, L300.3900, L300.4310, L500.4050 #### [facility] [address] [place], [address] MCH (RBC) [Entitic mass] 29.8 pg Normal 27.0-32.0 [facility] Comment on above: Performed By: #### L 100.0500, L300.3900, L300.4310, L500.4050 #### [facility] [address] [place], [address] MCHC (RBC) [Mass/Vol] 31.3 g/dL Low 32-36 [facility] Comment on above: Performed By: #### L 100.0500, L300.3900, L300.4310, L500.4050 #### [facility] [address] [place], [address] MCV (RBC) [Entitic vol] 95.4 fL Normal 81-99 [facility] Comment on above: Performed By: #### L 100.0500, L300.3900, L300.4310, L500.4050 #### [facility] [address] [place], [address] Platelet mean volume (Bld) [Entitic vol] 9.3 fL Normal 6.2-12.0 [facility] Comment on above: Performed By: #### L 100.0500, L300.3900, L300.4310, L500.4050 #### [facility] [address] [place], [address] Platelets (Bld) [#/Vol] 250 10*3/uL Normal 150-450 [facility] Comment on above: Performed By: #### L 100.0500, L300.3900, L300.4310, L500.4050 #### [facility] [address] [place], [address] RBC (Bld) [#/Vol] 3.92 10*6/uL Low 4.2-5.4 [facility] Comment on above: Performed By: #### L 100.0500, L300.3900, L300.4310, L500.4050 #### [facility] [address] [place], [address] RDW SD 44.8 fl High 35.1-43.9 [facility] Comment on above: Performed By: #### L 100.0500, L300.3900, L300.4310, L500.4050 #### [facility] [address] [place], [address] WBC (Bld) [#/Vol] 10.5 10*3/uL Normal 4.4-11.0 [facility] Comment on above: Performed By: #### L 100.0500, L300.3900, L300.4310, L500.4050 #### [facility] [address] [place], [address] Comprehensive Metabolic Prof [facility] 10-01-2023 Albumin [Mass/Vol] 3.4 g/dL Normal 3.2-5.0 [facility] Comment on above: Performed By: #### L 100.0500, L300.3900, L300.4310, L500.4050 #### [facility] [address] [place], [address] Albumin/Globulin [Mass ratio] 1.0 {ratio} Normal 0.9-2.4 [facility] Comment on above: Performed By: #### L 100.0500, L300.3900, L300.4310, L500.4050 #### [facility] [address] [place], [address] ALK P 170 U/L High 45-117 [facility] Comment on above: Performed By: #### L 100.0500, L300.3900, L300.4310, L500.4050 #### [facility] [address] [place], [address] ALT [Catalytic activity/Vol] 15 U/L Normal 13-56 [facility] Comment on above: Performed By: #### L 100.0500, L300.3900, L300.4310, L500.4050 #### [facility] [address] [place], [address] AST [Catalytic activity/Vol] 14 U/L Low 15-37 [facility] Comment on above: Performed By: #### L 100.0500, L300.3900, L300.4310, L500.4050 #### [facility] [address] [place], [address] Bilirubin [Mass/Vol] 0.40 mg/dL Normal 0.20-1.00 [facility] Comment on above: Result Comment: For patients on eltrombopag therapy, use of Dimension [place] TBIL is not recommended. Performed By: #### L 100.0500, L300.3900, L300.4310, L500.4050 #### [facility] [address] [place], [address] BUN/CRE 19.4 RATIO Normal 10-20 [facility] Comment on above: Performed By: #### L 100.0500, L300.3900, L300.4310, L500.4050 #### [facility] [address] [place], [address] CA,Total 9.2 mg/dL Normal 8.5-10.1 [facility] Comment on above: Performed By: #### L 100.0500, L300.3900, L300.4310, L500.4050 #### [facility] [address] [place], [address] Chloride [Moles/Vol] 104 mmol/L Normal 98-107 [facility] Comment on above: Performed By: #### L 100.0500, L300.3900, L300.4310, L500.4050 #### [facility] [address] [place], [address] CO2 [Moles/Vol] 29.0 mmol/L Normal 21.0-32.0 [facility] Comment on above: Performed By: #### L 100.0500, L300.3900, L300.4310, L500.4050 #### [facility] [address] [place], [address] Creatinine [Mass/Vol] 1.29 mg/dL High 0.55-1.02 [facility] Comment on above: Result Comment: The validity of the calculated GFR GFRAA in patients over 70 years has not been determined. Clinical correlation is essential. Performed By: #### L 100.0500, L300.3900, L300.4310, L500.4050 #### [facility] [address] [place], [address] ECRCL 26.53 ml/min Normal [facility] Comment on above: Performed By: #### L 100.0500, L300.3900, L300.4310, L500.4050 #### [facility] [address] [place], [address] EST GFR - AA 50 mL/min Low >60 [facility] Comment on above: Result Comment: Afri can Haitian GFR Calc Performed By: #### L 100.0500, L300.3900, L300.4310, L500.4050 #### [facility] [address] [place], [address] GAP 5 Normal 5-15 [facility] Comment on above: Performed By: #### L 100.0500, L300.3900, L300.4310, L500.4050 #### [facility] [address] [place], [address] GFR/1.73 sq M.predicted among non-blacks MDRD (S/P/Bld) [Vol rate/Area] 42 mL/min/{1.73_m2} Low >60 [facility] Comment on above: Result Comment: Non- GFR Calc Performed By: #### L 100.0500, L300.3900, L300.4310, L500.4050 #### [facility] [address] [place], [address] Globulin (S) [Mass/Vol] 3.5 g/dL Normal 2.2-4.2 [facility] Comment on above: Performed By: #### L 100.0500, L300.3900, L300.4310, L500.4050 #### [facility] [address] [place], [address] Glucose [Mass/Vol] 116 mg/dL High 74-106 [facility] Comment on above: Result Comment: Fast ing Glucose result from 100 to 125 mg/dL suggests IMPAIRED HOMEOSTASIS per A.D.A. criteria. Performed By: #### L 100.0500, L300.3900, L300.4310, L500.4050 #### [facility] [address] [place], [address] Potassium [Moles/Vol] 4.7 mmol/L Normal 3.5-5.1 [facility] Comment on above: Performed By: #### L 100.0500, L300.3900, L300.4310, L500.4050 #### [facility] [address] [place], [address] Sodium [Moles/Vol] 138 mmol/L Normal 136-145 [facility] Comment on above: Performed By: #### L 100.0500, L300.3900, L300.4310, L500.4050 #### [facility] [address] [place], [address] T PROT 6.9 g/dL Normal 6.4-8.2 [facility] Comment on above: Performed By: #### L 100.0500, L300.3900, L300.4310, L500.4050 #### [facility] [address] [place], [address] Urea nitrogen [Mass/Vol] 25 mg/dL High 7-18 [facility] Comment on above: Performed By: #### L 100.0500, L300.3900, L300.4310, L500.4050 #### [facility] [address] [place], [address] Discharge Instructionon 09-07 Discharge Instruction [facility] Medical Records Department [address] [place] [address] Instructions for Home/Discharge Instructions 10/01/23 0740 MR#: [id number] Acct: [id number] Name: CAT CARROLL Rep #: [id number] : 1935 88 From: Shantel Rasmussen MD PCP: CLAUDINE MAJANO MD [place] [facility] [place] Inst[place] Diet Discharge Diet: No restrictions Activity Discharge Activity: Return to Normal Activity Dressing / Incision Call your doctor if you observe: Fever of 101 or Higher, Inability to urinate and Inability to have a bowel movement Follow Up Care Please Follow Up With: Shantel Rasmussen MD When: in the office in 1-2 weeks. Test Results: Test results from this visit will be discussed in further detail at your follow-up appointment, if applicable. Discharge Plan Admission Attending Provider: Shantel Rasmussen Primary Care Provider: CLAUDINE MAJANO Instructions Print Language: Burkinan Discharge Orders/Prescriptions Prescriptions: New oxycodone-acetaminophen [Percocet] 5-325 mg tablet 1 tab PO Q8H PRN (Reason: pain) 1 Days Qty: 3 0RF Continued atorvastatin 40 mg Tablet 40 mg PO QHS metoprolol succinate 50 mg Tablet Extended Release 24 Hr 50 mg PO QHS amlodipine 5 mg Tablet 5 mg PO 1500 aspirin [Ecotrin Low Strength] 81 mg Tablet,Delayed Release (Dr/Ec) 81 mg PO DAILY colesevelam 625 mg Tablet 625 mg PO QHS nitroglycerin 0.4 mg Tablet, Sublingual 0.4 mg SUBLINGUAL Q5M PRN (Reason: Chest Pain) Rx Instructions: do not exceed 3 doses per episode ascorbic acid (vitamin C) [Vitamin C] 500 mg Capsule, Extended Release 500 mg PO DAILY estradiol 0.01 % (0.1 mg/gram) Cream 1 g VAGINAL DAILY methadone 5 mg Tablet 5 mg PO BID losartan 100 mg Tablet 100 mg PO DAILY cholecalciferol (vitamin D3) [Vitamin D3] 50 mcg (2,000 unit) Capsule 50 mcg PO DAILY melatonin 5 mg Capsule 5 mg PO QHS Centrum Silver Women 8 mg iron-400 mcg-300 mcg Tablet 1 tab PO QHS mirabegron [Myrbetriq] 50 mg Tablet Extended Release 24 Hr 50 mg PO BID Probiotic 3 billion cell Capsule 3,000 mmu cells PO DAILY Rx Instructions: administer with a meal hydroxyzine HCl 25 mg Tablet 25 mg PO BID PRN (Reason: Anxiety) Transdermal Pain Base Cream 1 applic MISCELLANEOUS PRN PRN (Reason: ARTHRITIS) duloxetine 60 mg capsule,delayed release(DR/EC) 60 mg PO QHS baclofen 5 mg tablet 5 mg PO TID furosemide 20 mg tablet 20 mg PO BID fesoterodine 4 mg tablet extended release 24 hr 4 mg PO DAILY Referrals / Follow Up: CLAUDINE MAJANO MD [Primary Care Provider] - Disposition Disposition (needs filled in before D/C Order can be placed): Home, Self Care 10/01/23820 Shantel Rasmussen MD CC: CLAUDINE MAJANO MD Signed [facility] MR/POSTOP.[facility] 10-01-2023 MR/POSTOP.[facility] Medical Records Department [address] [place] [address] Anesthesia Postop Eval I 10/01/23 0804 MR#: [id number] Acct: [id number] Name: CAT CARROLL Rep #: [id number] : 1935 88 From: Ivette Acosta PCP: CLAUDINE MAJANO MD Status:REG SDC Y Race: C Location: AC AC22-1 Anesthesia: Postop Eval I Current Vital Signs Temperature: 98.5 F Pulse Rate: 69 Blood Pressure: 128/77 Respiratory Rate: 16 Pulse Ox: 100 Oxygen Delivery Method: Room Air Assessment Airway patent: Yes Spontaneous unlabored respirations: Yes Mental status: Awake and Calm nausea: No Vomiting: No Anesthesia Complication: No Fluid Hydration Crystalloid volume administer (ml): 400 Total IV fluid infused: 400 Progress Note Anesthesia document: Postop Eval 1 completed: Yes 10/01/23 08 Date Ivette Dotterer Cosigner Signature: Date CC: Signed Normal [facility] MR/[id number] 10-01-2023 [facility] Medical Records Department [address] [place] [address] Anesthesia Postop Eval II 10/01/23829 MR#: [id number] Acct: [id number] Name: CAT CARROLL Rep #: [id number] : 1935 88 From: Baudilio Agosto MD PCP: CLAUDINE MAJANO MD [place] [facility] Race[place] C Location: [place] [address] Anesthesia Postop Eval I Sum Postop Eval Completion status Anesthesia document: Postop Eval 1 completed: Yes Anesthesia Postop Eval I Summary Anesthesia Postop Eval I Summary: Anesthesia Postop Eval I: Assessment Summary Airway patent Yes 10/01/23 08:05 RESEARCH GEOLOGIST.GDOTT Spontaneous unlabored Yes 10/01/23 08:05 RESEARCH GEOLOGIST.GDOTT respirations Mental status Awake,Calm 10/01/23 08:05 RESEARCH GEOLOGIST.GDOTT nausea No 10/01/23 08:05 RESEARCH GEOLOGIST.GDOTT Vomiting No 10/01/23 08:05 RESEARCH GEOLOGIST.GDOTT Anesthesia Postop Eval I: Fluid Summary Crystalloid volume administer 400 10/01/23 08:05 RESEARCH GEOLOGIST.GDOTT (ml) Colloids volume administered ( ml) Blood Product volume administered (ml) Total IV fluid infused 400 10/01/23 08:05 RESEARCH GEOLOGIST.GDOTT Anesthesia Postop Eval I: Summary Notes Anesthesia Complication No 10/01/23 08:05 RESEARCH GEOLOGIST.GDOTT Anesthesia Complication Comment: Post-operative progress note Anesthesia: Postop Eval II Evaluation Mental status: Awake Pain Level: 0 nausea: No Vomiting: No Complications Anesthesia Complication: No 10/01/23829 Date Baudilio Laoignjannet Signature: Date CC: Signed Normal [facility] Operative Reporton Operative Report [facility] Medical Records Department [address] [place] [address] Operative Report 10/01/23 0739 MR#: [id number] Acct: [id number] Name: CAT CARROLL Rep #: [id number] : 1935 88 From: Shantel Rasmussen MD PCP: CLAUDINE MAJANO MD Status:[facility] Location: [place] [address] Report of Operation Date of Procedure: 10/01/23 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 She has been having uncontrolled bladder pain with increased urgency and frequency despite conservative management. She now presents for cystoscopy with fulguration and possible biopsy. Informed consent was obtained. The patient was taken to the operating room and placed on the operating room table. Anesthesia monitored the head, neck, airway, IV access and vital signs throughout the case. Once anesthesia was appropriately administered, she was placed into dorsolithotomy position and was prepped and draped in usual sterile fashion. The cystoscope was inserted through the urethra under direct visualization into the urinary bladder. The bladder mucosa revealed 3 ulcerations. 1 on the left lateral bladder wall, 1 on the right posterior lateral bladder wall and 1 in the posterior bladder wall. Her bladder mucosa was obviously thin and there was no growth identified. The decision was made to fulgurate these lesions without biopsy as a biopsy has been done previously. The Bugbee was used to cauterize these areas for tissue treatment. At the conclusion of the case, the bladder was emptied and the cystoscope was removed. She was awakened and taken to the recovery room in good condition. There were no complications during this procedure. Complications None Admit VTE Documentation VTE Present on Admission: Yes VTE Mechan Device Prophylaxis: SCD's VTE Pharm Prophylaxis ordered?: No Reason prophylaxis not ordered:: Treatment Not Indicated 10/01/23 0850 Cosigner Signature (if applicable): CC: CLAUDINE MAJANO MD; Dr. Shantel Rasmussen MD Signed Normal [facility] Partial Thromboplast Timeon 10-01-2023 aPTT Coag (Bld) [Time] 24.4 s Normal 24.1-36.2 [facility] Comment on above: Performed By: #### L 100.0500, L300.3900, L300.4310, L500.4050 #### [facility] [address] [place], [address] Prothrombin Time w/INRon INR Coag (PPP) [Relative time] 1.1 {INR} Normal [facility] Comment on above: Performed By: #### L 100.0500, L300.3900, L300.4310, L500.4050 #### [facility] [address] [place], [address] PT Coag (PPP) [Time] 13.7 s Normal 11.7-14.9 [facility] Comment on above: Performed By: #### L 100.0500, L300.3900, L300.4310, L500.4050 #### [facility] [address] [place], [address] Basic metabolic 2000 panelon 07-27-2023 Anion gap [Moles/Vol] 19 mmol/L 10 - 20 mmol/L [facility] Calcium [Mass/Vol] 8.9 mg/dL 8.4 - 10. 2 mg/dL [facility] Chloride [Moles/Vol] 101 mmol/L 98 - 108 mmol/L [facility] Creatinine [Mass/Vol] 1.34 mg/dL High 0.60 - 1.10 mg/dL [facility] GFR/1.73 sq M.predicted CKD-EPI (S/P/Bld) [Vol rate/Area] 38 Low - PINF [facility] Comment on above: Estimated GFR was ca lculated using the 2020 CKD-EPI creatinine equation. Glucose [Mass/Vol] 123 mg/dL High 65 - 99 mg/dL [facility] HCO3 [Moles/Vol] 24 mmol/L 21 - 32 mmol/L [facility] Interpretation and review of laboratory results Abnormal [facility] Potassium [Moles/Vol] 3.7 mmol/L 3.5 - 5.1 mmol/L [facility] Sodium [Moles/Vol] 140 mmol/L 135 - 145 mmol/L [facility] Urea nitrogen [Mass/Vol] 19 mg/dL 8 - 25 mg/dL [facility] Urea nitrogen/Creatinine [Mass ratio] 14.2 mg/mg 10.0 - 20.0 [facility] has implemented the eGFR calculation approach that does not have a coefficient for race that conforms to the NKF-ASN Task Force Recommendations. [facility] Glucose (Bld) [Mass/Vol]on 0 07-09-2023 Glucose [Mass/Vol] 121 mg/dL High 65 - 99 mg/dL [facility] Interpretation and review of laboratory results Abnormal [facility] Glucose [Mass/Vol] 98 mg/dL 65 - 99 mg/dL [facility] Interpretation and review of laboratory results Normal [facility] Glucose [Mass/Vol] 107 mg/dL High 65 - 99 mg/dL [facility] Interpretation and review of laboratory results Abnormal [facility] Basic metabolic 1999 panelon 07-08-2023 Anion gap [Moles/Vol] 13 mmol/L 10 - 20 mmol/L [facility] Calcium [Mass/Vol] 8.4 mg/dL 8.4 - 10. 2 mg/dL [facility] Chloride [Moles/Vol] 105 mmol/L 98 - 108 mmol/L [facility] Creatinine [Mass/Vol] 0.81 mg/dL 0.60 - 1.10 mg/dL [facility] GFR/1.73 sq M.predicted CKD-EPI (S/P/Bld) [Vol rate/Area] 70 - PINF [facility] Comment on above: Estimated GFR was ca lculated using the 2020 CKD-EPI creatinine equation. Glucose [Mass/Vol] 93 mg/dL 65 - 99 mg/dL [facility] HCO3 [Moles/Vol] 27 mmol/L 21 - 32 mmol/L [facility] Interpretation and review of laboratory results Abnormal [facility] Potassium [Moles/Vol] 3.4 mmol/L Low 3.5 - 5.1 mmol/L [facility] Sodium [Moles/Vol] 142 mmol/L 135 - 145 mmol/L [facility] Urea nitrogen [Mass/Vol] 17 mg/dL 8 - 25 mg/dL [facility] Urea nitrogen/Creatinine [Mass ratio] 21.0 mg/mg High 10.0 - 20.0 [facility] has implemented the eGFR calculation approach that does not have a coefficient for race that conforms to the NKF-ASN Task Force Recommendations. [facility] CBC panel Auto (Bld)on 07-07 Erythrocyte distribution width (RBC) [Entitic vol] 13.1 % 11.6 - 14.8 % [facility] Hematocrit (Bld) [Volume fraction] 34.0 % Low 36.0 - 46.0 % [facility] Hemoglobin (Bld) [Mass/Vol] 10.9 g/dL Low 12.0 - 16.0 g/dL [facility] Interpretation and review of laboratory results Abnormal [facility] MCH (RBC) [Entitic mass] 30.7 pg 26.0 - 34.0 pg [facility] MCHC (RBC) [Mass/Vol] 32.1 g/dL 31.0 - 37.0 g/dL [facility] MCV (RBC) [Entitic vol] 95.8 fL 80.0 - 100.0 fL [facility] Nucleated RBC (Bld) [#/Vol] 0.00 10*3/uL [facility] Nucleated RBC/100 WBC (Bld) [Ratio] 0.0 % [facility] Platelet mean volume (Bld) [Entitic vol] 9.9 fL 9.4 - 12.4 fL [facility] Platelets (Bld) [#/Vol] 193 10*3/uL [facility] RBC (Bld) [#/Vol] 3.55 10*6/uL Low [facility] ealth WBC (Bld) [#/Vol] 5.78 10*3/uL [facility] Lamotrigine LevelOrdered By: Holden Myrick on 07-08-2023 Interpretation and review of laboratory results Abnormal [facility] lamoTRIgine [Mass/Vol] 1.9 Low [facility] ECG 12 LeadOrdered By: Amie Rees on 07-07-2023 Atrial Rate [facility] P [place] [facility] P-R Interval [facility] Q-T Interval [facility] Q-T Interval (corrected) [facility] QRS Duration [facility] QTC Calculation (Bezet) [facility] R [place] [facility] T [place] [facility] Ventricular Rate [facility] XR OR FLUOROSCOPY TIMEon XR OR FLUOROSCOPY TIME This is an auto finalized result. Please refer to patient chart for further information. further information. further information. [facility] Comment on above: Order Comment: Injur y/Trauma or Illness?:Illness/Other How long have you had these symptoms (acute/chronic)?:Chronic Reason for exam?:injection Type of Exam?:Initial Additional signs and symptoms?:injection Fluoro time in minutes:0.97 Fluoro dose in mGy?:12.67 XR OR FLUOROSCOPY TIMEon XR OR FLUOROSCOPY TIME This is an auto finalized result. Please refer to patient chart for further information. further information. further information. [facility] Comment on above: Order Comment: Injur y/Trauma or Illness?:Illness/Other How long have you had these symptoms (acute/chronic)?:Chronic Reason for exam?:injection Type of Exam?:Initial Additional signs and symptoms?:injection Fluoro time in minutes:0.5 Fluoro dose in mGy?:6.62 LaboratoryOrdered By: Fernanda Pritchard on 05-19-2023 Clarity Refractometry automated (U) Cloudy Abnormal Clear [facility] Laboratory - Chemistry and C hemistry - challengeOrdered By: Felipe Pritchard on 05-19-2023 Bilirubin Ql (U) Negative Negative [facility] pH (U) 5.5 [pH] 5.0 - 7.0 [facility] Specific gravity (U) [Rel density] 1.014 1.005 - 1.025 [facility] Urobilinogen (U) [Mass/Vol] mg/dL NINF - 2.0 mg/dL [facility] Laboratory - Specimen inform ationOrdered By: Felipe Pritchard on 05-19-2023 Color (U) Yellow Colorless, Yellow [facility] Laboratory - UrinalysisOrder ed By: Felipe Pritchard on 05-19-2023 Bacteria Auto Ql (U) Many Abnormal None Seen /hpf [facility] Epithelial cells.squamous Auto (Urine sed) [#/Area] 3 [facility] Glucose Auto test strip (U) [Mass/Vol] Negative Negative mg/dL [facility] Hemoglobin Auto test strip Ql (U) Negative Negative [facility] Hyaline casts Auto (Urine sed) [#/Area] 11-20 Abnormal [facility] Ketones (U) [Mass/Vol] Negative Negative mg/dL [facility] Leukocyte clumps Auto (Urine sed) [#/Area] Rare Abnormal None Seen /hpf [facility] Leukocyte esterase Auto test strip Ql (U) Large Abnormal Negative [facility] Mucus Auto (Urine sed) [#/Area] Rare None Seen, Rare /lpf [facility] Nitrite Auto test strip Ql (U) Negative Negative [facility] Protein (U) [Mass/Vol] Negative Negative mg/dL [facility] WBC Auto (Urine sed) [#/Area] High [facility] No Panel InformationOrdered By: Felipe Pritchard on 05-19-2023 Interpretation and review of laboratory results Abnormal [facility] Microscopic examinat ion is performed on all urinalysis samples and only positive findings are reported. The test for blood on the chemical analytic portion of urinalysis may also be positive due to hemoglobinuria and myoglobinuria and if red blood cells are present they are quantified by microscopic examination. [facility] MR Lumbar spine WO contrasto n 05-14-2023 1. Surgical changes of L5-S1 laminectomy and posterior fusion. Recurrent degenerative changes resulting in severe right neural foraminal narrowing at this level. 2. Additional multilevel degenerative changes with up to moderate thecal sac narrowing as described. Please correlate with distribution of symptoms and refer to findings section level by level detail. [employer]/Close Workstation ID: [id number] [facility] EXAMINATION: MR LUMBAR SPINE WITHOUT CONTRAST, /08/2023 1:01 PM HISTORY: 87 y/o F. lumbar spinal stenosis. Dx: M51.36 (DDD (degenerative disc disease), lumbar) ORDERING SYSTEM PROVIDED HISTORY: lumbar spinal stenosis, TECHNOLOGIST PROVIDED HISTORY: Illness/Other Reason for exam: lumbar spinal stenosis, DDD (degenerative disc disease), lumbar Encounter Type: Initial Additional signs and symptoms: n ORDERING SYSTEM PROVIDED DIAGNOSIS CODES: M51.36 DDD (degenerative disc disease), lumbar COMPARISON: MRI lumbar spine 02/18/2020. TECHNIQUE: Multisequence, multiplanar MRI of the lumbar spine is performed. Images obtained without intravenous contrast. 3D Processing: None. FINDINGS: There are 5 lumbar type vertebrae. The spine is imaged from T11 through distal sacrum on sagittal sequences. L5-S1 laminectomy and posterior fusion. Straightening to slight reversal of the expected lumbar lordosis with apex at L2. Mild dextrocurvature apex at L2. No spondylolisthesis. Facets are anatomically aligned. L2-L3 adjacent endplate edema. Multilevel adjacent endplate mixed edema and fatty changes. Vertebral body heights are well-maintained. The visualized cord is within normal limits. The conus medullaris terminates at L1. Degenerative changes as follows: T12-L1: Intervertebral disc height loss and desiccation. Diffuse bulge and facet arthropathy. Minimal thecal sac and mild bilateral neural foraminal narrowing. L1-L2: Intervertebral disc height loss and desiccation with adjacent endplate Modic type 2 changes. Disc osteophyte complex and facet arthropathy. Mild thecal sac narrowing. Xrkl-sr-llppmwqr left and mild right neural foraminal narrowing. L2-L3: Intervertebral disc height loss and desiccation with adjacent endplate Modic type 1 changes. Disc osteophyte complex and facet arthropathy. Moderate thecal sac narrowing. Moderate left and mild right neural foraminal narrowing. L3-L4: Intervertebral disc height loss and desiccation with adjacent endplate Modic type 2 changes. Disc osteophyte complex and facet arthropathy. Wfid-nl-gumwgcoo thecal sac and mild bilateral neural foraminal narrowing. L4-L5: Intervertebral disc height loss and desiccation with adjacent endplate Modic type 2 changes. Disc osteophyte complex and facet arthropathy. Wrtj-io-iwlahvvu thecal sac narrowing. Moderate right and fxau-dc-dttxvfiq left neural foraminal narrowing. L5-S1: Intervertebral disc height loss and desiccation. L5 inferior endplate Schmorl's node with adjacent endplate Modic type 2 changes. Disc osteophyte complex and facet arthropathy. Thecal sac is decompressed. Severe right and mild left neural foraminal narrowing. Paravertebral structures are unremarkable. Alexandrea Grey MD - 05/14/2023 EXAMINATION: MR LUMBAR SPINE WITHOUT CONTRAST, 1:01 PM HISTORY: 87 y/o F. lumbar spinal stenosis. Dx: M51.36 (DDD (degenerative disc disease), lumbar) ORDERING SYSTEM PROVIDED HISTORY: lumbar spinal stenosis, TECHNOLOGIST PROVIDED HISTORY: Illness/Other Reason for exam: lumbar spinal stenosis, DDD (degenerative disc disease), lumbar Encounter Type: Initial Additional signs and symptoms: n ORDERING SYSTEM PROVIDED DIAGNOSIS CODES: M51.36 DDD (degenerative disc disease), lumbar COMPARISON: MRI lumbar spine 02/18/2020. TECHNIQUE: Multisequence, multiplanar MRI of the lumbar spine is performed. Images obtained without intravenous contrast. 3D Processing: None. FINDINGS: There are 5 lumbar type vertebrae. The spine is imaged from T11 through distal sacrum on sagittal sequences. L5-S1 laminectomy and posterior fusion. Straightening to slight reversal of the expected lumbar lordosis with apex at L2. Mild dextrocurvature apex at L2. No spondylolisthesis. Facets are anatomically aligned. L2-L3 adjacent endplate edema. Multilevel adjacent endplate mixed edema and fatty changes. Vertebral body heights are well-maintained. The visualized cord is within normal limits. The conus medullaris terminates at L1. Degenerative changes as follows: T12-L1: Intervertebral disc height loss and desiccation. Diffuse bulge and facet arthropathy. Minimal thecal sac and mild bilateral neural foraminal narrowing. L1-L2: Intervertebral disc height loss and desiccation with adjacent endplate Modic type 2 changes. Disc osteophyte complex and facet arthropathy. Mild thecal sac narrowing. Nzgw-yi-vjfvxcmm left and mild right neural foraminal narrowing. L2-L3: Intervertebral disc height loss and desiccation with adjacent endplate Modic type 1 changes. Disc osteophyte complex and facet arthropathy. Moderate thecal sac narrowing. Moderate left and mild right neural foraminal narrowing. L3-L4: Intervertebral disc height loss and desiccation with adjacent endplate Modic type 2 changes. Disc osteophyte complex and facet arthropathy. Cdhy-nu-tgbtteoa thecal sac and mild bilateral neural foraminal narrowing. L4-L5: Intervertebral disc height loss and desiccation with adjacent endplate Modic type 2 changes. Disc osteophyte complex and facet arthropathy. Hkau-kq-pkuthwrr thecal sac narrowing. Moderate right and jhdx-gr-iwucmqmb left neural foraminal narrowing. L5-S1: Intervertebral disc height loss and desiccation. L5 inferior endplate Schmorl's node with adjacent endplate Modic type 2 changes. Disc osteophyte complex and facet arthropathy. Thecal sac is decompressed. Severe right and mild left neural foraminal narrowing. Paravertebral structures are unremarkable. IMPRESSION: 1. Surgical changes of L5-S1 laminectomy and posterior fusion. Recurrent degenerative changes resulting in severe right neural foraminal narrowing at this level. 2. Additional multilevel degenerative changes with up to moderate thecal sac narrowing as described. Please correlate with distribution of symptoms and refer to findings section level by level detail. [employer] Workstation ID: [id number] [facility] MR Lumbar spine WO contrastO rdered By: Alexandrea Hinojosa on 05-14-2023 [facility] Work Phone: MR Lumbar spine WO contrasto n 05-13-2023 Radiology Study observation (narrative) [facility] Basic metabolic 2000 panelon 05-11-2023 Anion gap [Moles/Vol] 12 mmol/L 10 - 20 mmol/L [facility] Calcium [Mass/Vol] 8.8 mg/dL 8.4 - 10. 2 mg/dL [facility] Chloride [Moles/Vol] 97 mmol/L Low 98 - 108 mmol/L [facility] Creatinine [Mass/Vol] 0.98 mg/dL 0.60 - 1.20 mg/dL [facility] GFR/1.73 sq M.predicted CKD-EPI (S/P/Bld) [Vol rate/Area] 56 Low - PINF [facility] Comment on above: Estimated GFR was ca lculated using the 2020 CKD-EPI creatinine equation. Glucose [Mass/Vol] 111 mg/dL High 65 - 99 mg/dL [facility] HCO3 [Moles/Vol] 26 mmol/L 21 - 32 mmol/L [facility] Interpretation and review of laboratory results Abnormal [facility] Potassium [Moles/Vol] 4.7 mmol/L 3.5 - 5.1 mmol/L [facility] Sodium [Moles/Vol] 130 mmol/L Low 135 - 145 mmol/L [facility] Urea nitrogen [Mass/Vol] 19 mg/dL 8 - 25 mg/dL [facility] Urea nitrogen/Creatinine [Mass ratio] 19.4 mg/mg 10.0 - 20.0 [facility] has implemented the eGFR calculation approach that does not have a coefficient for race that conforms to the NKF-ASN Task Force Recommendations. [facility] Comprehensive metabolic 2000 panelon 10-24-2022 Albumin [Mass/Vol] 3.6 g/dL 3.2 - 5.2 g/dL [facility] ALP [Catalytic activity/Vol] 120 U/L 40 - 150 U/L [facility] ALT [Catalytic activity/Vol] 39 U/L 14 - 65 U/L [facility] Anion gap [Moles/Vol] 9 mmol/L Low 10 - 20 mmol/L [facility] AST [Catalytic activity/Vol] 27 U/L 0 - 45 U/L [facility] Bilirubin [Mass/Vol] 0.3 mg/dL 0.0 - 1.3 mg/dL [facility] Calcium [Mass/Vol] 8.7 mg/dL 8.4 - 10. 2 mg/dL [facility] Chloride [Moles/Vol] 103 mmol/L 98 - 108 mmol/L [facility] Creatinine [Mass/Vol] 0.90 mg/dL 0.60 - 1.20 mg/dL [facility] GFR/1.73 sq M.predicted CKD-EPI (S/P/Bld) [Vol rate/Area] 62 - PINF [facility] Comment on above: Estimated GFR was ca lculated using the 2020 CKD-EPI creatinine equation. Glucose [Mass/Vol] 104 mg/dL High 65 - 99 mg/dL [facility] HCO3 [Moles/Vol] 29 mmol/L 21 - 32 mmol/L [facility] Potassium [Moles/Vol] 4.1 mmol/L 3.5 - 5.1 mmol/L [facility] Protein [Mass/Vol] 6.7 g/dL 6.0 - 8.0 g/dL [facility] Sodium [Moles/Vol] 137 mmol/L 135 - 145 mmol/L [facility] Urea nitrogen [Mass/Vol] 19 mg/dL 8 - 25 mg/dL [facility] Urea nitrogen/Creatinine [Mass ratio] 21.1 mg/mg High 10.0 - 20.0 [facility] has implemented the eGFR calculation approach that does not have a coefficient for race that conforms to the NKF-ASN Task Force Recommendations. [facility] Lipid 1996 panelon Cholesterol [Mass/Vol] 107 mg/dL 100 - 199 mg/dL [facility] Comment on above: National Cholesterol Education Program Guidelines: Cholesterol Desirable: <200 mg/dL Borderline High: 200-239 mg/dL High: greater than or equal to 240 mg/dL Cholesterol in HDL [Mass/Vol] 65 mg/dL 40 - 59 mg/dL [facility] Comment on above: National Cholesterol Education Program Guidelines: HDL Cholesterol Low: <40 mg/dL Near Optimal: 40-59 mg/dL High: greater than or equal to 60 mg/dL Cholesterol in LDL [Mass/Vol] 7 mg/dL Low 10 - 130 mg/dL [facility] Comment on above: National Cholesterol Education Program Guidelines: LDL Cholesterol Optimal: <100 mg/dL Near Optimal/above Optimal: 100-129 mg/dL Borderline High: 130-159 mg/dL High: 160-189 mg/dL Very High: greater than or equal to 190 mg/dL Cholesterol non HDL [Mass/Vol] 42 mg/dL [facility] Comment on above: National Cholesterol Education Program Guidelines: NON HDL Cholesterol Desirable: <130 mg/dL Borderline High: 130-159 mg/dL High: 160-189 mg/dL Very High: > or = 190 mg/dL Cholesterol.total/C holesterol in HDL [Mass ratio] 1.6 {ratio} ratio [facility] Comment on above: Female Cholesterol/H DL Ratio: Average risk: 4.4 1/2 average risk: 3.3 2 x average risk: 7.1 Triglyceride [Mass/Vol] 175 mg/dL High 30 - 150 mg/dL [facility] Comment on above: National Cholesterol Education Program Guidelines: Triglyceride Normal: <150 mg/dL Borderline High: 150-199 mg/dL High: 200-499 mg/dL Very High: greater than or equal to 500 mg/dL No Panel Informationon 10-24 Interpretation and review of laboratory results Abnormal [facility] Vitamin D, Total, 25-OHon 25-hydroxyvitamin D [Mass/Vol] 71 ng/mL 30 - 100 ng/mL [facility] Comment on above: Vitamin D status: Deficiency: <20 ng/mL Insufficiency: 20-30 ng/mL Sufficiency: 30-100 ng/mL Toxicity: >100 ng/mL Please note that Fluorescein which is used in angiography has been shown to falsely elevate the results of Vitamin D with our current assay. Evidence suggests that patients undergoing fluorescein dye angiography can retain small amounts of fluorescein in the body for up to 48 to 72 hours post-treatment. In the cases of patients with renal insufficiency, retention could be much longer. Samples should be resubmitted post fluorescein clearance to ensure there is no interference with the Vitamin D test result. Interpretation and review of laboratory results Normal [facility] Assay performed tyree Brandt's chemiluminescence methodology. [facility] Basophil percentageOrdered B y: Dr. Nguyen on 07-10-2022 Bilirubin [Mass/Vol] 0.50 mg/dL 0.20-1.00 [facility] Comment on above: For patients on eltr ombopag therapy, use of Dimension [place] TBIL is not recommended. Chloride [Moles/Vol] 102 mmol/L 98-107 [facility] Glucose [Mass/Vol] 106 mg/dL 74-106 [facility] Comment on above: Fasting Glucose resu lt from 100 to 125 mg/dL suggests IMPAIRED HOMEOSTASIS per A.D.A. criteria. Potassium [Moles/Vol] 4.7 mmol/L 3.5-5.1 [facility] Comment on above: Moderate Hemolysis, Result may be falsely increased. Protein [Mass/Vol] 6.7 g/dL 6.4-8.2 [facility] Sodium [Moles/Vol] 134 mmol/L 136-145 [facility] WBC (Bld) [#/Vol] 5.7 10*3/uL 4.4-11.0 [facility] Blood erythrocytes count (nu mber/volume)Ordered By: Dr. Nguyen on 07-10-2022 RBC (Bld) [#/Vol] 3.68 10*6/uL 4.2-5.4 [facility] Blood hemoglobin measurement (mass/volume)Ordered By: Dr. Nguyen on 07-10-2022 Hemoglobin (Bld) [Mass/Vol] 11.6 g/dL 12.0-15.0 [facility] Blood platelet mean volumeOr dered By: Dr. Nguyen on 07-10-2022 Platelet mean volume (Bld) [Entitic vol] 9.3 fL 6.2-12.0 [facility] Determination of erythrocyte mean corpuscular volume (MCV)Ordered By: Dr. Nguyen on 07-10-2022 MCV (RBC) [Entitic vol] 94.6 fL 81-99 [facility] Direct bilirubinOrdered By: Dr. Nguyen on 07-10-2022 Bilirubin.direct [Mass/Vol] 0.15 mg/dL 0.00-0.30 [facility] Hematocrit Auto (Bld) [Volum e fraction]Ordered By: Dr. Nguyen on 07-10-2022 Hematocrit (Bld) [Volume fraction] 34.8 % 37-47 [facility] INR in Blood by Coagulation assayOrdered By: Dr. Rasmussen on 07-10-2022 INR Coag (Bld) [Relative time] 1.1 {INR} [facility] Laboratory - Chemistry and C hemistry - challengeOrdered By: Dr. Nguyen on 07-10-2022 ALP [Catalytic activity/Vol] 112 U/L 45-117 [facility] ALT [Catalytic activity/Vol] 37 U/L 13-56 [facility] CO2 [Moles/Vol] 24.0 mmol/L 21.0-32.0 [facility] Globulin (S) [Mass/Vol] 3.2 g/dL 2.2-4.2 [facility] Urea nitrogen/Creatinine [Mass ratio] 16.8 mg/mg 10-20 [facility] Laboratory - CoagulationOrde red By: Dr. Rasmussen on 07-10-2022 aPTT Coag (Bld) [Time] 23.4 s 24.1-36.2 [facility] PT Coag (PPP) [Time] 14.3 s 11.7-14.9 [facility] Laboratory - Hematology and Cell countsOrdered By: Dr. Nguyen on 07-10-2022 Erythrocyte distribution width (RBC) [Entitic vol] 44.0 fL 35.1-43.9 [facility] Erythrocyte distribution width (RBC) [Ratio] 12.6 % 11.6-14.6 [facility] MCH (RBC) [Entitic mass] 31.5 pg 27.0-32.0 [facility] [Mass/Vol]Or dered By: Dr. Nguyen on 07-10-2022 MCHC (RBC) [Mass/Vol] 33.3 g/dL 32-36 [facility] No Panel InformationOrdered By: Dr. Nguyen on 07-10-2022 Estimated Creatinine Clearance Calc 39.18 ml/min [facility] [facility] Estimated GFR (MDRD) Amer 77 mL/min >60 [facility] Comment on above: GFR Calc Estimated GFR (MDRD) Non-Af Amer 64 mL/min >60 [facility] Comment on above: Non- GFR Calc Platelets bldOrdered By: Dr. Nguyen on 07-10-2022 Platelets (Bld) [#/Vol] 197 10*3/uL 150-450 [facility] Serum or plasma albumin yamila urement (mass/volume)Ordered By: Dr. Nguyen on 07-10-2022 Albumin [Mass/Vol] 3.5 g/dL 3.2-5.0 [facility] Serum or plasma calcium yamila urement (mass/volume)Ordered By: Dr. Nguyen on 07-10-2022 Calcium [Mass/Vol] 8.3 mg/dL 8.5-10.1 [facility] Serum or plasma creatinine m easurement (mass/volume)Ordered By: Dr. Nguyen on 07-10-2022 Creatinine [Mass/Vol] 0.89 mg/dL 0.55-1.02 [facility] Comment on above: The validity of the calculated GFR & GFRAA in patients over 70 years has not been determined. Clinical correlation is essential. Serum or plasma urea nitroge n measurement (mass/volume)Ordered By: Dr. Nguyen on 07-10-2022 Urea nitrogen [Mass/Vol] 15 mg/dL 7-18 [facility] Thin prep Papanicolaou smear with manual screeningOrdered By: Dr. Nguyen on 07-10-2022 Thin prep Papanicolaou smear with manual screening 46 U/L 15-37 [facility] Comment on above: Moderate Hemolysis, Result may be falsely increased. Thin prep Papanicolaou smear with manual screening 8 5-15 [facility] Basic metabolic 2000 panelon 04-16-2022 Anion gap [Moles/Vol] 13 mmol/L 10 - 20 mmol/L [facility] Calcium [Mass/Vol] 8.4 mg/dL 8.4 - 10. 2 mg/dL [facility] Chloride [Moles/Vol] 100 mmol/L 98 - 108 mmol/L [facility] Creatinine [Mass/Vol] 0.72 mg/dL 0.60 - 1.20 mg/dL [facility] GFR/1.73 sq M.predicted CKD-EPI (S/P/Bld) [Vol rate/Area] 82 - PINF [facility] Comment on above: Estimated GFR was ca lculated using the 2020 CKD-EPI creatinine equation. Glucose [Mass/Vol] 101 mg/dL High 65 - 99 mg/dL [facility] HCO3 [Moles/Vol] 25 mmol/L 21 - 32 mmol/L [facility] Interpretation and review of laboratory results Abnormal [facility] Potassium [Moles/Vol] 4.1 mmol/L 3.5 - 5.1 mmol/L [facility] Sodium [Moles/Vol] 134 mmol/L Low 135 - 145 mmol/L [facility] Urea nitrogen [Mass/Vol] 18 mg/dL 8 - 25 mg/dL [facility] Urea nitrogen/Creatinine [Mass ratio] 25.0 mg/mg High 10.0 - 20.0 [facility] has implemented the eGFR calculation approach that does not have a coefficient for race that conforms to the NKF-ASN Task Force Recommendations. [facility] Urinalysis with microscopicO rdered By: Sheila Ojeda on 04-16-2022 Bacteria Auto Ql (U) Rare Abnormal None Seen /hpf [facility] Bilirubin Ql (U) Negative Negative [facility] Clarity Refractometry automated (U) Clear Clear [facility] Color (U) Yellow Colorless, Yellow [facility] Crystals.amorphous Computer assisted (U) [#/Area] Few Abnormal None Seen, Rare /hpf [facility] Epithelial cells.squamous Auto (Urine sed) [#/Area] 1 [facility] Glucose Auto test strip (U) [Mass/Vol] Negative Negative mg/dL [facility] Hemoglobin Auto test strip Ql (U) Small Abnormal Negative [facility] Interpretation and review of laboratory results Abnormal [facility] Ketones (U) [Mass/Vol] Negative Negative mg/dL [facility] Leukocyte clumps Auto (Urine sed) [#/Area] Rare Abnormal None Seen /hpf [facility] Leukocyte esterase Auto test strip Ql (U) Moderate Abnormal Negative [facility] Nitrite Auto test strip Ql (U) Negative Negative [facility] pH (U) 6.0 [pH] 5.0 - 7.0 [facility] Protein (U) [Mass/Vol] Negative Negative mg/dL [facility] RBC Auto (Urine sed) [#/Area] 12 High [facility] Specific gravity (U) [Rel density] 1.014 1.005 - 1.025 [facility] Transitional cells Computer assisted (U) [#/Area] 1 [facility] Urobilinogen (U) [Mass/Vol] mg/dL NINF - 2.0 mg/dL [facility] WBC Auto (Urine sed) [#/Area] 12 High [facility] Microscopic examinat ion is performed on all urinalysis samples and only positive findings are reported. The test for blood on the chemical analytic portion of urinalysis may also be positive due to hemoglobinuria and myoglobinuria and if red blood cells are present they are quantified by microscopic examination. [facility] Basic metabolic 2000 panelon 04-05-2022 Anion gap [Moles/Vol] 12 mmol/L 10 - 20 mmol/L [facility] Calcium [Mass/Vol] 7.9 mg/dL Low 8.4 - 10. 2 mg/dL [facility] Chloride [Moles/Vol] 95 mmol/L Low 98 - 108 mmol/L [facility] Creatinine [Mass/Vol] 0.65 mg/dL 0.60 - 1.20 mg/dL [facility] GFR/1.73 sq M.predicted CKD-EPI (S/P/Bld) [Vol rate/Area] 86 - PINF [facility] Comment on above: Estimated GFR was ca lculated using the 2020 CKD-EPI creatinine equation. Glucose [Mass/Vol] 95 mg/dL 65 - 99 mg/dL [facility] HCO3 [Moles/Vol] 23 mmol/L 21 - 32 mmol/L [facility] Interpretation and review of laboratory results Abnormal [facility] Potassium [Moles/Vol] 4.3 mmol/L 3.5 - 5.1 mmol/L [facility] Sodium [Moles/Vol] 126 mmol/L Low 135 - 145 mmol/L [facility] Urea nitrogen [Mass/Vol] 8 mg/dL 8 - 25 mg/dL [facility] Urea nitrogen/Creatinine [Mass ratio] 12.3 mg/mg 10.0 - 20.0 [facility] has implemented the eGFR calculation approach that does not have a coefficient for race that conforms to the NKF-ASN Task Force Recommendations. [facility] CBC Auto Differentialon 03-10 Basophils (Bld) [#/Vol] 0.03 10*3/uL [facility] Basophils/100 WBC (Bld) 0.5 % [facility] Eosinophils (Bld) [#/Vol] 0.11 10*3/uL [facility] Eosinophils/100 WBC (Bld) 1.9 % [facility] Erythrocyte distribution width (RBC) [Entitic vol] 12.0 % 11.6 - 14.8 % [facility] Hematocrit (Bld) [Volume fraction] 31.8 % Low 36.0 - 46.0 % [facility] Hemoglobin (Bld) [Mass/Vol] 10.8 g/dL Low 12.0 - 16.0 g/dL [facility] Immature granulocytes (Bld) [#/Vol] 0.03 10*3/uL [facility] Immature granulocytes/100 WBC (Bld) 0.50 % [facility] Comment on above: The IG parameter is the percentage of metamyelocytes, myelocytes and promyelocytes. An immature granulocyte count (IG) of 1% or more suggests the possibility of infection, an IG count of 3% is very likely related to an infection. Interpretation and review of laboratory results Abnormal [facility] Lymphocytes (Bld) [#/Vol] 3.07 10*3/uL [facility] Lymphocytes/100 WBC (Bld) 52.4 % [facility] MCH (RBC) [Entitic mass] 31.3 pg 26.0 - 34.0 pg [facility] MCHC (RBC) [Mass/Vol] 34.0 g/dL 31.0 - 37.0 g/dL [facility] MCV (RBC) [Entitic vol] 92.2 fL 80.0 - 100.0 fL [facility] Monocytes (Bld) [#/Vol] 0.64 10*3/uL [facility] Monocytes/100 WBC (Bld) 10.9 % [facility] Neutrophils (Bld) [#/Vol] 1.98 10*3/uL [facility] Neutrophils/100 WBC (Bld) 33.8 % [facility] Nucleated RBC (Bld) [#/Vol] 0.00 10*3/uL [facility] Nucleated RBC/100 WBC (Bld) [Ratio] 0.0 % [facility] Platelet mean volume (Bld) [Entitic vol] 9.6 fL 9.4 - 12.4 fL [facility] Platelets (Bld) [#/Vol] 181 10*3/uL [facility] RBC (Bld) [#/Vol] 3.45 10*6/uL Low [facility] WBC (Bld) [#/Vol] 5.86 10*3/uL [facility]-2022 Delta Difference Troponin I 5 ng/L < -/+ 12 change [facility] Interp Troponin I Delta Change No biomarker evidence of cardiac injury. [facility] Troponin I 21 ng/L NINF - 59 ng/L [facility] Troponin I 16 ng/L NINF - 59 ng/L [facility] Troponin I Interpretation Normal [facility] UrinalysisOrdered By: Kalpana Alejo on 04-04-2022 Bacteria Auto Ql (U) Few Abnormal None Seen /hpf [facility] Bilirubin Ql (U) Negative Negative [facility] th Clarity Refractometry automated (U) Cloudy Abnormal Clear [facility] Color (U) Yellow Colorless, Yellow [facility] Epithelial cells.squamous Auto (Urine sed) [#/Area] 2 [facility] Glucose Auto test strip (U) [Mass/Vol] Negative Negative mg/dL [facility] Hemoglobin Auto test strip Ql (U) Small Abnormal Negative [facility] Interpretation and review of laboratory results Abnormal [facility] Ketones (U) [Mass/Vol] Negative Negative mg/dL [facility] Leukocyte esterase Auto test strip Ql (U) Small Abnormal Negative [facility] Nitrite Auto test strip Ql (U) Negative Negative [facility] pH (U) 7.5 [pH] High 5.0 - 7.0 [facility] Protein (U) [Mass/Vol] Negative Negative mg/dL [facility] RBC Auto (Urine sed) [#/Area] 2 [facility] Specific gravity (U) [Rel density] 1.010 1.005 - 1.025 [facility] Urobilinogen (U) [Mass/Vol] mg/dL NINF - 2.0 mg/dL [facility] WBC Auto (Urine sed) [#/Area] 1 [facility] Microscopic examinat ion is performed on all urinalysis samples and only positive findings are reported. The test for blood on the chemical analytic portion of urinalysis may also be positive due to hemoglobinuria and myoglobinuria and if red blood cells are present they are quantified by microscopic examination. [facility] XR Ankle Right 3+ Views (Sta ndard)on 02-12-2022 1. Acute relatively nondisplaced avulsion-type fracture through the tip of the distal fibula. 2. Diffuse osseous demineralization and soft tissue swelling about the ankle joint. JAR/trw Workstation ID: [id number] [employer] EXAMINATION: XR ANKLE RIGHT 3+ VIEWS (STANDARD) 02/11/2022 2:34 PM HISTORY: ORDERING SYSTEM PROVIDED HISTORY: swelling following trauma and tenderness over lateral malleolus , please eval for fracture, TECHNOLOGIST PROVIDED HISTORY: Injury/Trauma Reason for exam: swelling following trauma and tenderness over lateral malleolus Cancer History: u Surgery, RadiationHistory: u Encounter Type: Initial Mechanism of injury: rolled ankle ORDERING SYSTEM PROVIDED DIAGNOSIS CODES: M25.471 Right ankle swelling COMPARISON: None available. TECHNIQUE: 3 views of the right ankle. FINDINGS: Bones are diffusely demineralized. There is soft tissue swelling about the ankle joint most pronounced laterally. There is an acute relatively nondisplaced avulsion-type fracture through the tip of the distal fibula. No discrete fracture through the tibia. Joint alignment of the ankle appears anatomic. Small calcaneal enthesophytes are present. [facility] Mik Whitley Ala, DO - 02/12/2022 EXAMINATION: XR ANKLE RIGHT 3+ VIEWS (STANDARD) 02/11/2022 2:34 PM HISTORY: ORDERING SYSTEM PROVIDED HISTORY: swelling following trauma and tenderness over lateral malleolus , please eval for fracture, TECHNOLOGIST PROVIDED HISTORY: Injury/Trauma Reason for exam: swelling following trauma and tenderness over lateral malleolus Cancer History: u Surgery, RadiationHistory: u Encounter Type: Initial Mechanism of injury: rolled ankle ORDERING SYSTEM PROVIDED DIAGNOSIS CODES: M25.471 Right ankle swelling COMPARISON: None available. TECHNIQUE: 3 views of the right ankle. FINDINGS: Bones are diffusely demineralized. There is soft tissue swelling about the ankle joint most pronounced laterally. There is an acute relatively nondisplaced avulsion-type fracture through the tip of the distal fibula. No discrete fracture through the tibia. Joint alignment of the ankle appears anatomic. Small calcaneal enthesophytes are present. IMPRESSION: 1. Acute relatively nondisplaced avulsion-type fracture through the tip of the distal fibula. 2. Diffuse osseous demineralization and soft tissue swelling about the ankle joint. 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 Patient is on palliative care, patient was on Prilosec in the past as well as Questran and was told these interact with each other and the nurse told her to quit taking the Prilosec. Patient has some abdominal burning. Review of Systems Constitutional: no fever, no chills, not feeling tired and no recent weight loss. ENT: no lymphadenopathy. Cardiovascular: no shortness of breath and no chest pain. Respiratory: no cough. Gastrointestinal: as noted in HPI. Musculoskeletal: no joint swelling. Integumentary: no rashes, no skin lesions and was no jaundiced. All other systems have been reviewed and are negative for complaint. 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) Pelvis fracture (808.8) (S32.9XXA) Spinal stenosis, 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 neurogenic claudication (724.02) (M48.061) Status post-operative repair of hip fracture (V45.89) (Z98.890,Z87.81) Trigeminal neuralgia (350.1) (G50.0) Past Medical History Problems History of Anxiety and depression (300.00,311) (F41.9,F32.A) 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) History of Benign essential hypertension (401.1) (I10) History of fibromyalgia (V13.59) (Z87.39) History of gastroesophageal reflux (GERD) (V12.79) (Z87.19) History of hyperlipidemia (V12.29) (Z86.39) History of irritable bowel syndrome (V12.79) (Z87.19) History of obesity (V12.29) (Z86.39) History of SONALI (obstructive sleep apnea) (327.23) (G47.33) History of Prediabetes (790.29) (R73.03) History of Trigeminal neuralgia (350.1) (G50.0) Surgical History Problems History of Appendectomy History of Cholecystectomy History of Complete Colonoscopy History of Diagnostic Esophagoscopy Transoral Flexible With Biopsy History of Hip fracture repair Managed By: Nena Kaur (Orthopedic Surgery) Linus insertion 2020 History of Hysterectomy History of Knee Replacement History of Spinal Arthrodesis Family History Mother Family history of cardiovascular disease (V17.49) (Z82.49) Father Family history of cardiovascular disease (V17.49) (Z82.49) Family history of cerebrovascular accident (CVA) (V17.1) (Z82.3) Sister Family history of cardiovascular disease (V17.49) (Z82.49) Family history of diabetes mellitus (V18.0) (Z83.3) Brother Family history of cardiovascular disease (V17.49) (Z82.49) Family history of cerebrovascular accident (CVA) (V17.1) (Z82.3) Social History Problems Denies alcohol consumption (V49.89) (Z78.9) Former smoker (V15.82) (Z87.891) No illicit drug use Patient has living will (V49.89) (Z78.9) Allergies Medication Benadryl Allergy TABS Allergy; Hives; Itching; Recorded By: Paloma Schmidt; 06/26/2020 12:36:15 PM gabapentin Allergy; Dizziness; Recorded By: Elisabet Santo; 07/12/2020 3:10:08 PM meloxicam Allergy; Constipation; Recorded By: Elisabet Santo; 07/12/2020 3:10:08 PM Codeine Derivatives Recorded By: Blayne Sweet; 05/17/2014 11:50:04 AM Latex Gloves MISC Allergy; Updated By: Cate Early; 03/14/2020 4:38:00 PM Neosporin OINT Recorded By: Blayne Sweet; 05/17/2014 11:50:04 AM Current Meds Medication NameInstruction Adult Aspirin EC Low Strength 81 MG TBECTAKE 1 TABLET DAILY. Atorvastatin Calcium 80 MG Oral TabletTAKE 1 TABLET AT BEDTIME. carBAMazepine ER 200 MG Oral Tablet Extended Release 12 HourTAKE 1 TABLET 3 times daily Centrum Silver 50+Women Oral TabletTAKE 1 TABLET DAILY. Claritin 10 MG Oral TabletTAKE 1 TABLET DAILY NEEDED. Disability Placard5 years duration DULoxetine HCl - 30 MG Oral Capsule Delayed Release ParticlesTAKE 1 CAPSULE Daily Flovent 110 MCG/ACT AEROINHALE 2 PUFFS AT 12 HOUR INTERVALS (MORNING AND EVENING). Lipitor 40 MG Oral Tablet Lopressor 100 MG Oral Tablet Losartan Potassium 25 MG Oral TabletTAKE 1 TABLET DAILY DIRECTED. Methadone HCl - 10 MG Oral Tablet Nitroglycerin 0.4 MG Sublingual Tablet SublingualPLACE 1 TABLET UNDER THE TONGUE EVERY 5 MINUTES FOR UP TO 3 DOSES NEEDED FOR CHEST PAIN.CALL 9 (more content not included)... Normal [facility] Basic metabolic 2000 panelon 01-08-2022 Anion gap [Moles/Vol] 12 mmol/L 10 - 20 mmol/L [facility] Calcium [Mass/Vol] 9.1 mg/dL 8.4 - 10. 2 mg/dL [facility] Chloride [Moles/Vol] 95 mmol/L Low 98 - 108 mmol/L [facility] Creatinine [Mass/Vol] 0.74 mg/dL 0.60 - 1.20 mg/dL [facility] GFR/1.73 sq M.predicted CKD-EPI (S/P/Bld) [Vol rate/Area] 79 - PINF [facility] Comment on above: Estimated GFR was ca lculated using the 2020 CKD-EPI creatinine equation. Glucose [Mass/Vol] 109 mg/dL High 65 - 99 mg/dL [facility] HCO3 [Moles/Vol] 28 mmol/L 21 - 32 mmol/L [facility] Interpretation and review of laboratory results Abnormal [facility] Potassium [Moles/Vol] 4.8 mmol/L 3.5 - 5.1 mmol/L [facility] Sodium [Moles/Vol] 130 mmol/L Low 135 - 145 mmol/L [facility] Urea nitrogen [Mass/Vol] 11 mg/dL 8 - 25 mg/dL [facility] Urea nitrogen/Creatinine [Mass ratio] 14.9 mg/mg 10 - 20 [facility] has implemented the eGFR calculation approach that does not have a coefficient for race that conforms to the NKF-ASN Task Force Recommendations. [facility] Urinalysis macro (dipstick) panel (U)on 10-16-2021 Bilirubin Ql (U) Negative Negative [facility] Glucose Ql (U) Negative Normal, Negative mg/dL [facility] Hemoglobin Ql (U) Small Abnormal Negative [facility] Interpretation and review of laboratory results Abnormal [facility] Ketones Ql (U) Negative Negative mg/dL [facility] Leukocyte esterase Test strip Ql (U) Small Abnormal Negative [facility] Nitrite Ql (U) Negative Negative [facility] pH (U) 6.0 [pH] 5 - 7 [facility] Protein Ql (U) Negative Negative mg/dL [facility] Specific gravity (U) [Rel density] 1.010 1.005 - 1.025 [facility] Urobilinogen Qn (U) 0.2 mg/dL <2.0, 0. 2, Normal, Negative, 1.0, 2.0, <1.0 [facility] Comprehensive metabolic 2000 panelon 07-13-2022 Albumin [Mass/Vol] 3.6 g/dL 3.2 - 5.2 g/dL [facility] ALP [Catalytic activity/Vol] 125 U/L 40 - 150 U/L [facility] ALT [Catalytic activity/Vol] 51 U/L 14 - 65 U/L [facility] Anion gap [Moles/Vol] 13 mmol/L 10 - 20 mmol/L [facility] AST [Catalytic activity/Vol] 26 U/L 0 - 45 U/L [facility] Bilirubin [Mass/Vol] 0.4 mg/dL 0 - 1.3 mg/dL [facility] Calcium [Mass/Vol] 8.8 mg/dL 8.4 - 10. 2 mg/dL [facility] Chloride [Moles/Vol] 104 mmol/L 98 - 108 mmol/L [facility] Creatinine [Mass/Vol] 0.75 mg/dL 0.60 - 1.20 mg/dL [facility] GFR/1.73 sq M.predicted CKD-EPI (S/P/Bld) [Vol rate/Area] 78 - PINF [facility] Comment on above: Estimated GFR was ca lculated using the 2020 CKD-EPI creatinine equation. Glucose [Mass/Vol] 102 mg/dL High 65 - 99 mg/dL [facility] HCO3 [Moles/Vol] 25 mmol/L 21 - 32 mmol/L [facility] Interpretation and review of laboratory results Abnormal [facility] Potassium [Moles/Vol] 4.6 mmol/L 3.5 - 5.1 mmol/L [facility] Protein [Mass/Vol] 6.4 g/dL 6 - 8 g/dL [facility] Sodium [Moles/Vol] 137 mmol/L 135 - 145 mmol/L [facility] Urea nitrogen [Mass/Vol] 16 mg/dL 8 - 25 mg/dL [facility] Urea nitrogen/Creatinine [Mass ratio] 21.3 mg/mg High 10 - 20 [facility] has implemented the eGFR calculation approach that does not have a coefficient for race that conforms to the NKF-ASN Task Force Recommendations. [facility] Urinalysis macro (dipstick) panel (U)Ordered By: Lesley Bailey on 05-30-2021 Bilirubin Ql (U) Negative Negative [facility] Glucose Ql (U) Negative Normal, Negative mg/dL [facility] Hemoglobin Ql (U) Small Abnormal Negative [facility] Interpretation and review of laboratory results Abnormal [facility] [facility] Ketones Ql (U) Negative Negative mg/dL [facility] Leukocyte esterase Test strip Ql (U) Small Abnormal Negative [facility] Nitrite Ql (U) Positive Abnormal Negative [facility] pH (U) 7.0 [pH] [facility] Protein Ql (U) Negative Negative mg/dL [facility] Specific gravity (U) [Rel density] 1.015 [facility] Urobilinogen Qn (U) 0.2 mg/dL <2.0, 0. 2, Normal, Negative, 1.0, 2.0, <1.0 [facility] Comprehensive metabolic 2000 panelon 03-15-2021 Albumin [Mass/Vol] 3.3 g/dL 3.2 - 5.2 g/dL [facility] ALP [Catalytic activity/Vol] 138 U/L 40 - 150 U/L [facility] ALT [Catalytic activity/Vol] 31 U/L 14 - 65 U/L [facility] Anion gap [Moles/Vol] 14 mmol/L 10 - 20 mmol/L [facility] AST [Catalytic activity/Vol] 20 U/L 0 - 45 U/L [facility] Bilirubin [Mass/Vol] 0.3 mg/dL 0.0 - 1.3 mg/dL [facility] Calcium [Mass/Vol] 8.6 mg/dL 8.4 - 10. 2 mg/dL [facility] Chloride [Moles/Vol] 102 mmol/L 98 - 108 mmol/L [facility] Creatinine [Mass/Vol] 0.72 mg/dL 0.60 - 1.20 [facility] GFR/1.73 sq M.predicted CKD-EPI (S/P/Bld) [Vol rate/Area] 77 >=60 mL/min/1.7 3 m2 [facility] Glucose [Mass/Vol] 108 mg/dL High 65 - 99 mg/dL [facility] HCO3 [Moles/Vol] 26 mmol/L 21 - 32 mmol/L [facility] Potassium [Moles/Vol] 4.4 mmol/L 3.5 - 5.1 mmol/L [facility] Protein [Mass/Vol] 6.2 g/dL 6.0 - 8.0 g/dL [facility] Sodium [Moles/Vol] 138 mmol/L 135 - 145 mmol/L [facility] Urea nitrogen [Mass/Vol] 10 mg/dL 8 - 25 mg/dL [facility] Urea nitrogen/Creatinine [Mass ratio] 13.9 mg/mg [facility] The eGFR should be u sed for monitoring renal function only and not for medication dosing. [facility] HbA1c (Bld) [Mass fraction]O rdered By: Tara Vu on 03-15-2021 Average glucose Estimated from glycated hemoglobin (Bld) [Mass/Vol] 117 mg/dL High 68 - 114 mg/dL [facility] Interpretation and review of laboratory results Abnormal [facility] Normal: 4.0% - 5.6% Increased risk for diabetes: 5.7% - 6.4% Diabetes: >= 6.5% Pediatrics: No established reference range Estimated average glucose: 68-114 mg/dL [facility] Hemoglobin [id number] By: Mine Vu on 03-15-2021 HbA1c (Bld) [Mass fraction] 5.7 % High 4.0 - 5.6 % [facility] Lipid 1996 panelon 2 Cholesterol [Mass/Vol] 101 mg/dL 100 - 199 mg/dL [facility] Comment on above: National Cholesterol Education Program Guidelines: Cholesterol Desirable: <200 mg/dL Borderline High: 200-239 mg/dL High: greater than or equal to 240 mg/dL Cholesterol in HDL [Mass/Vol] 64 mg/dL 40 - 59 [facility] Comment on above: National Cholesterol Education Program Guidelines: HDL Cholesterol Low: <40 mg/dL Near Optimal: 40-59 mg/dL High: greater than or equal to 60 mg/dL Cholesterol in LDL [Mass/Vol] 9 mg/dL Low 10 - 130 mg/dL [facility] Comment on above: National Cholesterol Education Program Guidelines: LDL Cholesterol Optimal: <100 mg/dL Near Optimal/above Optimal: 100-129 mg/dL Borderline High: 130-159 mg/dL High: 160-189 mg/dL Very High: greater than or equal to 190 mg/dL Cholesterol non HDL [Mass/Vol] 37 mg/dL [facility] Comment on above: National Cholesterol Education Program Guidelines: NON HDL Cholesterol Desirable: <130 mg/dL Borderline High: 130-159 mg/dL High: 160-189 mg/dL Very High: > or = 190 mg/dL Cholesterol.total/C holesterol in HDL [Mass ratio] 1.6 {ratio} ratio [facility] Comment on above: Female Cholesterol/H DL Ratio: Average risk: 4.4 1/2 average risk: 3.3 2 x average risk: 7.1 Triglyceride [Mass/Vol] 141 mg/dL 30 - 150 mg/dL [facility] Comment on above: National Cholesterol Education Program Guidelines: Triglyceride Normal: <150 mg/dL Borderline High: 150-199 mg/dL High: 200-499 mg/dL Very High: greater than or equal to 500 mg/dL No Panel Informationon 03-15 Interpretation and review of laboratory results Normal [facility] Interpretation and review of laboratory results Abnormal [facility] TSH DL <= 0.005 mIU/L Qnon 0 03-15-2021 TSH Qn 0.69 m[IU]/L [facility] Vitamin D, Total, 25-OHon 25-hydroxyvitamin D [Mass/Vol] 53 ng/mL 30 - 100 ng/mL [facility] Comment on above: Vitamin D status: Deficiency: <20 ng/mL Insufficiency: 20-30 ng/mL Sufficiency: 30-100 ng/mL Toxicity: >100 ng/mL Please note that Fluorescein which is used in angiography has been shown to falsely elevate the results of Vitamin D with our current assay. Evidence suggests that patients undergoing fluorescein dye angiography can retain small amounts of fluorescein in the body for up to 48 to 72 hours post-treatment. In the cases of patients with renal insufficiency, retention could be much longer. Samples should be resubmitted post fluorescein clearance to ensure there is no interference with the Vitamin D test result. Assay performed tyree Brandt's chemiluminescence methodology. [facility] Established Visit (Orthopaed ic Surgery)on 02-19-2021 Established Visit (Orthopaedic Surgery) Diagnoses/Problems Assessed Pelvis fracture (808.8) (S32.9XXA) Left shoulder pain (719.41) (M25.512) Orders Left shoulder pain Administer: Triamcinolone Acetonide 40 MG/ML Injection Suspension; INJECT 1 ML Injection; To Be Done: [id number] Patient Discussion/Summary By signing my name below, I, Ophelia Peres, attest that this documentation has been prepared under the direction and in the presence of Dr. Nena Cabrera. Provider Impressions Assessment?left superior-inferior pubic rami fracture sacral insufficiency fracture and left shoulder pain Plan?patient is recovering from her pelvic fracture she has healing response on her radiographs and very pleased with how she is recovering with regards to the shoulder she has some pain that is been present since her fall she likely exacerbated some underlying degenerative change within the shoulder she still has some maintained range of motion just pain throughout the range of motion I did offer her a subacromial corticosteroid injection which she was agreeable to we did administer this I will plan to see her back in 6 weeks to evaluate the pelvis with repeat radiographs This note has been created with voice recognition software. Please be aware that there may be grammatical or contextual errors due to the use of the software. Chief Complaint Patient here accompanied by her daughter, Trinidad, for follow-up pelvic fracture. Patient states the pain from the pelvic fracture is resolved. Now states she has had intermittent pain in the left shoulder since the fall in December,; but did not want to tell anyone. States pain range can be 8/10 in the shoulder. History of Present Illness Patient is a pleasant 85-year-old female presenting today for follow-up pelvic fracture. She is accompanied by her daughter, Trinidad. Patient states the pain from the pelvic fracture is resolved. She denies any complaints with the pelvis. Now states she has had intermittent pain in the left shoulder since the fall in December of 2020; but she did not want to tell anyone. She states when she fell, she bruised the elbow and cut her hand. She states her pain scale in the shoulder can be an 8 out of 10. The pain radiates throughout the entire shoulder and down the bicep. She has limited range of motion and strength in the shoulder. She denies pain with straightening or bending the elbow. She has been going to occupational therapy and has been tolerating it well. She was released from OT on Thursday, but will continue with physical therapy. She was originally taking oxycodone for pain management but states she no longer needs it and has been doing well without it. She states she would like to try a corticosteroid injection for the shoulder today. Review of Systems Constitutional: no fever, no chills, not feeling tired, no recent weight gain and no recent weight loss. ENT: no nosebleeds. Cardiovascular: no chest pain. Respiratory: no shortness of breath and no cough. Gastrointestinal: no abdominal pain, no nausea, no vomiting and no diarrhea. Musculoskeletal: no arthralgias and as noted in HPI. Integumentary: no rashes and no skin wound. Neurological: no headache. Psychiatric: no depression and no sleep disturbances. Endocrine: no muscle weakness and no muscle cramps. Hematologic/Lymphatic: swollen glands, but no tendency for easy bruising. 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) History of Benign essential hypertension (401.1) (I10) History of fibromyalgia (V13.59) (Z87.39) History of gastroesophageal reflux (GERD) (V12.79) (Z87.19) History of hyperlipidemia (V12.29) (Z86.39) History of irritable bowel syndrome (V12.79) (Z87.19) History of obesity (V12.29) (Z86.39) History of SONALI (obstructive sleep apnea) (327.23) (G47.33) History of Prediabetes (790.29) (R73.03) History of Trigeminal neuralgia (350.1) (G50.0) Surgical History Problems History of Appendectomy History of Cholecystectomy History of Complete Colonoscopy History of Diagnostic Esophagoscopy Transoral Flexible With Biopsy History of Hip fracture repair Managed By: Nena Cabrera (Orthopedic Surgery) Linus insertion 2020 History of Hysterectomy History of Knee Replacement History of Spinal Arthrodesis Family History Mother Family history of cardiovascular disease (V17.49) (Z82.49) Father Family history o (more content not included)... Normal [facility] PELVIS, 1 OR 2 VIEWSon 12-14 -2021 PELVIS, 1 OR 2 VIEWS Patient Name: CAT CARROLL STUDY: PELVIS, 1 OR 2 VIEWS; 02/19/2021 2:41 pm INDICATION: FRACTURE OF UNSP PART OF NECK OF UNSP FEMUR, INIT. COMPARISON: 12/25/2020 ACCESSION NUMBER(S): [id number] ORDERING CLINICIAN: NENA CABRERA FINDINGS: Pelvis, single view Subacute healing fracture through the bilateral superior and inferior pubic rami with increased sclerosis and callus formation. Right femoral subtrochanteric fractures post fixation. Moderate degenerative change at the hips. Increased sclerosis in the left sacral ala concerning for underlying sacral fracture. Partially visualized postsurgical changes in the lower lumbar spine IMPRESSION: Subacute fracture deformities through the left and right superior and inferior pubic rami fractures with increased healing and callus formation Increased sclerosis through the left sacrum suggestive of underlying sacral fracture Electronically signed by: LUIS MALAGON MD Normal [facility] 02-19-2021 XR Pelvis 1 or 2 Views Normal [facility] 300 Work Phone: Tobacco Screening.on 021 Fall risk assessment b) One or more falls in the last year [facility] 300 Work Phone: Tobacco use status [facility]PH[facility] b) No [facility] 300 Work Phone: BASIC METABOLIC PANELon 12-08 Anion gap [Moles/Vol] 12 mmol/L Normal 10 - 20 [facility] Comment on above: Performed By: #### B MP ####[address] [address] Calcium [Mass/Vol] 8.3 mg/dL Low 8.6 - 10.3 [facility] Comment on above: Performed By: #### B MP ####[address] [address] Chloride [Moles/Vol] 97 mmol/L Low 98 - 107 [facility] Comment on above: Performed By: #### B MP ####[address] [address] Creatinine [Mass/Vol] 0.73 mg/dL Normal 0.50 - 1.05 [facility] Comment on above: Performed By: #### B MP ####[place] [id number] GFR- AM. >60 Normal >60 [facility] Comment on above: Result Comment: CALC ULATIONS OF ESTIMATED GFR ARE PERFORMED USING THE MDRD STUDY EQUATION FOR THE IDMS-TRACEABLE CREATININE METHODS. CLIN CHEM 2007;53:766-72 Performed By: #### B MP ####[place] [id number] GFR-NON AM. >60 Normal >60 [facility] Comment on above: Performed By: #### B MP ####[place] [id number] Glucose [Mass/Vol] 110 mg/dL High 74 - 99 [facility] Comment on above: Performed By: #### B MP ####[place] [id number] HCO3 (Bld) [Moles/Vol] 26 mmol/L Normal 21 - 32 [facility] Comment on above: Performed By: #### B MP ####[place] [id number] Potassium [Moles/Vol] 4.5 mmol/L Normal 3.5 - 5.3 [facility] Comment on above: Performed By: #### B MP ####[address] [address] Sodium [Moles/Vol] 130 mmol/L Low 136 - 145 [facility] Comment on above: Performed By: #### B MP ####[address] [address] Urea nitrogen [Mass/Vol] 13 mg/dL Normal 6 - 23 [facility] Comment on above: Performed By: #### B MP ####[address] [address] CBCon 12-27-2020 Erythrocyte distribution width (RBC) [Ratio] 14.4 % Normal 11.5 - 14.5 [facility] Comment on above: Performed By: #### C BC ####[address] [address] Hematocrit (Bld) [Volume fraction] 32.9 % Low 36.0 - 46.0 [facility] Comment on above: Performed By: #### C BC ####[address] [address] Hemoglobin (Bld) [Mass/Vol] 10.7 g/dL Low 12.0 - 16.0 [facility] Comment on above: Performed By: #### C BC ####[address] [address] MCHC (RBC) [Mass/Vol] 32.6 g/dL Normal 32.0 - 36.0 [facility] Comment on above: Performed By: #### C BC ####[address] [address] MCV (RBC) [Entitic vol] 94 fL Normal 80 - 100 [facility] Comment on above: Performed By: #### C BC ####[address] [address] Platelets (Bld) [#/Vol] 140 10*3/uL Low 150 - 450 [facility] Comment on above: Performed By: #### C BC ####[address] [address] RBC 3.51 x10E12/L Low 4.00 - 5.20 [facility] Comment on above: Performed By: #### C BC ####[address] [address] WBC (Bld) [#/Vol] 5.7 10*3/uL Normal 4.4 - 11.3 [facility] Comment on above: Performed By: #### C BC ####[address] [address] Discharge [id number] Discharge Profile2 Discharge Orders: Anticipated Discharge Date: Anticipated Discharge [id number] Anticipated Discharge Time15:00 DNAR: DNAR Status: none Activity: activity with assistance. Diet: Dietresume normal diet Labs 1: [facility] Test[facility]s)[facility] Lab InstructionsWalk-in lab, no appointment required. Commentshave completed before follow up with PCP Additional Orders: Additional Instructions Patient refuses SNF patient to go home with home health care for PT OT therapy, patient fall risk, Patient requested Gladis at home Patient on palliative care at home Patient to follow up w/ PCP within 1 week of discharge s/p fall, hyponatremia and uncomplicated UTI received 3 days IV antibiotics Patient to follow up w/ Dr. Cabrera, orthopedics within 1 week of discharge Resume patient medications; verified by pharmacy before discharge Call Provider If (Homegoing Patients): Any new concerning symptoms. Hospital Course (Home Care/Gold Form): Hospital Course: Hospital Course: include significant abnormal lab values CAT CARROLL is a 85 year old Female Who presented to the emergency room after having a fall. On presentation, blood pressure 147/100, heart rate 85, respiratory rate 16, afebrile, saturation O2 96% on room air. Pertinent findings on blood work-up; hemoglobin 11.7, WBC 11.5, neutrophil shift, sodium 128, and urinalysis came back positive for nitrite and bacteria. COVID-[address] scan of the abdomen and pelvis showed an acute nondisplaced left sacral insufficiency fracture of S1. There is also bilateral sacral insufficiency fractures at S2 and S3. There is a minimally displaced fracture of the left ischiopubic junction and left iliopectineal junction with possible extension to the anterior wall of the left acetabulum. There is an acutely mildly displaced fracture of the lateral ninth rib and nondisplaced fracture of the lateral left 10th rib. Patient was given in the emergency room 1 g IV ceftriaxone and morphine and Zofran and then admitted to the medical service for further investigation management. Upon encounter, patient resting comfortably in her bed. She reports that her left side hurts especially her left arm and forearm and left wrist. She also has pain in her left hip. She said that she was going outside the driveway to get her mail and she think she tripped with her cane. She fell to the floor. She could not stand up after that by herself. Prior to the fall, she did not experience any lightheadedness or dizziness or blurry vision. After the fall, she did not pass out nor did she have any vomiting or incontinence. Denies having any current focal neurological deficits. Review of Systems: 10 systems were reviewed and were negative except for those noted in the history of present illness. 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 Right femoral intramedullary nail, appendectomy, cholecystectomy, hysterectomy, knee replacement Social history: Former smoker, no alcohol abuse Family history: Both parents had cardiovascular disease as well as the siblings Hospital Course: Patient was admitted for mechanical fall. Seen by Dr. Cabrera, orthopedics. Per his note: CT scan of the abdomen pelvis which did demonstrate ninth and 10th rib fractures there is no significant fracture in the left upper extremity at the elbow or the wrist there is a fracture of the superior and inferior pubic rami and sacral insufficiency fracture. We did have a long discussion about these fractures. They are all mild in nature but significant symptoms. These are typically treated nonoperatively with monitored or protected weightbearing usually with an assistive device and repeat x-rays over time to evaluate for any changes.-Patient can be weightbearing as tolerated but if she is painful she can limit her weightbearing-As needed pain control -Physical therapy-Patient will likely need some time in fpc for rehabilitation. Patient has refused to go to SNF, indicates she had home health for PT OT for her last fracture and found it to be effective. She indicates she also has palliative care at home. PT has been placed on consult, patient indicating she still is going home not to a facility. Patient found to have urinary tract infection on admission, asymptomatic and treated with IV Rocephin x 3 days. No neurologic symptoms, confusion, pain, urgency or frequency on admission. Patient also found to have sodium of 128, uric acid was normal. Patient found t (more content not included)... Normal [facility] OSMOLALITY, SERUMon 12-28-19 21 OSMOLALITY, SERUM 270 mOsm/kg H2O Low 280 - 300 [facility] Comment on above: Performed By: #### O SMOL ####[id number] [place] [address] Order Reconciliationon 12-27 Order Reconciliation Page 1 Discharge Reconciliation Document Reconciliation Type: Discharge requested on behalf of Tara Azul (Advanced Practice Nurse) done by Tara Azul ([facility]) Discharge - Partial Reconciliation: 27-Dec-2020 11:21 by: Tara Azul ([facility]) Discharge - Reconciliation: 27-Dec-2020 12:31 by: Tara Azul ([facility]) Discharge - Reset to Incomplete: 27-Dec-2020 12:32 by: Tara Azul ([facility]) Discharge - Partial Reconciliation: 27-Dec-2020 12:37 by: Tara Azul ([facility]) Discharge - Reconciliation: 27-Dec-2020 13:53 by: Tara Azul ([facility]) Home Medications EnteredHOME MEDICATIONS AT DISCHARGE DateReconciliation Comment/ Additional Information aspirin 81 mg oral delayed release tablet 1 tab(s) orally once a day 26-Dec-2020 12:27 aspirin 81 mg oral delayed release tablet 1 tab(s) orally once a day 26-Dec-2020 12:27 aspirin 81 mg oral delayed release tablet is continued as aspirin 81 mg oral delayed release tablet ATORVASTATIN 80 MG TABLET 1 tab(s) orally once a day (at bedtime) 26-Dec-2020 12:24 ATORVASTATIN 80 MG TABLET 1 tab(s) orally once a day (at bedtime) 26-Dec-2020 12:24 ATORVASTATIN 80 MG TABLET is continued as ATORVASTATIN 80 MG TABLET BRILINTA 90 MG TABLET 1 tab(s) orally 2 times a day 26-Dec-2020 12:57 BRILINTA 90 MG TABLET 1 tab(s) orally 2 times a day 26-Dec-2020 12:57 BRILINTA 90 MG TABLET is continued as BRILINTA 90 MG TABLET carBAMazepine 200 mg oral tablet 1.5 tab(s) orally 3 times a day 26-Dec-2020 12:09 carBAMazepine 200 mg oral tablet 1.5 tab(s) orally 3 times a day 26-Dec-2020 12:09 carBAMazepine 200 mg oral tablet is continued as carBAMazepine 200 mg oral tablet Centrum Silver Women's oral tablet 1 tab(s) orally once a day 26-Dec-2020 12:10 Centrum Silver Women's oral tablet 1 tab(s) orally once a day 26-Dec-2020 12:10 Centrum Silver Women's oral tablet is continued as Centrum Silver Women's oral tablet CHOLESTYRAMINE POWDER 4 gram(s) orally once a day 26-Dec-2020 12:24 CHOLESTYRAMINE POWDER 4 gram(s) orally once a day 26-Dec-2020 12:24 CHOLESTYRAMINE POWDER is continued as CHOLESTYRAMINE POWDER Flovent HFA 110 mcg/inh inhalation aerosol 2 puff(s) inhaled 2 times a day - rinse mouth after use 16-Feb-2019 13:02 Flovent HFA 110 mcg/inh inhalation aerosol 2 puff(s) inhaled 2 times a day - rinse mouth after use 16-Feb-2019 13:02 Flovent HFA 110 mcg/inh inhalation aerosol is continued as Flovent HFA 110 mcg/inh inhalation aerosol loratadine 10 mg oral tablet 1 tab(s) orally once a day 26-Dec-2020 12:19 loratadine 10 mg oral tablet 1 tab(s) orally once a day 26-Dec-2020 12:19 loratadine 10 mg oral tablet is continued as loratadine 10 mg oral tablet LOSARTAN POTASSIUM 100 MG TAB 1 tab(s) orally once a day 26-Dec-2020 12:25 LOSARTAN POTASSIUM 100 MG TAB 1 tab(s) orally once a day 26-Dec-2020 12:25 LOSARTAN POTASSIUM 100 MG TAB is continued as LOSARTAN POTASSIUM 100 MG TAB Melatonin 12 milligram(s) orally once a day (at bedtime) 25-Dec-2020 22:35 Melatonin 12 milligram(s) orally once a day (at bedtime) 25-Dec-2020 22:35 Melatonin is continued as Melatonin METHADONE HCL 5 MG TABLET 1 tab(s) orally 3 times a day, As Needed - for pain 26-Dec-2020 12:26 METHADONE HCL 5 MG TABLET 1 tab(s) orally 3 times a day, As Needed - for pain 26-Dec-2020 12:26 METHADONE HCL 5 MG TABLET is continued as METHADONE HCL 5 MG TABLET METOPROLOL SUCC ER 50 MG TAB 1 tab(s) orally once a day (at bedtime) 26-Dec-2020 12:26 METOPROLOL SUCC ER 50 MG TAB 1 tab(s) orally once a day (at bedtime) 26-Dec-2020 12:26 METOPROLOL SUCC ER 50 MG TAB is continued as METOPROLOL SUCC ER 50 MG TAB nitroglycerin 0.4 mg sublingual tablet 1 tab(s) sublingual every 5 minutes, As Needed 16-Feb-2019 13:04 nitroglycerin 0.4 mg sublingual tablet 1 tab(s) sublingual every 5 minutes, As Needed 16-Feb-2019 13:04 nitroglycerin 0.4 mg sublingual tablet is continued as nitroglycerin 0.4 mg sublingual tablet omeprazole 40 mg oral delayed release capsule 1 cap(s) orally once a day 10-Mar-2019 10:26 omeprazole 40 mg oral delayed release capsule 1 cap(s) orally once a day 10-Mar-2019 10:26 omeprazole 40 mg oral delayed release capsule is continued as omeprazole 40 mg oral delayed release capsule Probiotic Formula oral capsule 1 cap(s) orally once a day 25-Dec-2020 15:46 Probiotic Formula oral capsule 1 cap(s) orally once a day 25-Dec-2020 15:46 Probiotic Formula oral capsule is continued as Probiotic Formula oral capsule Vitamin B12 100 mcg oral tablet 1 tab(s) orally once a day 25-Dec-2020 15:47 Vitamin B12 100 mcg oral tablet 1 tab(s) orally once a day 25-Dec-2020 15:47 Vitamin B12 100 mcg oral tablet is continued as Vitamin B12 100 mcg oral tablet Vitamin B6 100 mg oral tablet 1 tab(s) orally once a day 25-Dec-2020 15:46 Vitamin B6 100 mg oral tablet 1 tab(s) orally once a day 25-Dec-2020 15:46 Vitamin B6 100 mg oral tablet is continued as Vitamin B6 100 mg oral ta (more content not included)... Normal [facility] Admission Risk Screen - Adul ton 12-26-2020 Admission Risk Screen - Adult Allergies: Allergies: Neosporin: Rash Latex: Rash Tape - Adhesive, Bandaids, Paper: Rash Intolerances: gabapentin: Dizziness aspirin: GI Upset codeine: GI Upset Dust: Congestion Patient Verification: New W ID Band Applied in my Departmentno Type of ID Patient is WearingW wristband, but not applied here Patient Transferred from Other Facility ([facility], [facility],etc)no Patient Identity Verified Bypatient ID Band FULL Name, include Middle, spelling matches patient's ID used for verificationyes ID Band Matches Patient ID used for Verficationyes ID Band MRN Matches EMR MRNyes Visitor Restriction: Coronavirus Visitor Restriction: Reasonable restrictions to in-person visitors will be observed due to current coronavirus pandemic. Travel History: COVID-19 Screening Completedno exposure or symptoms(1) Travel or Exposure Past 30 DaysNO travel to International locations in the past 30 days Ebola AlertFor Ebola-like Symptoms: Isolate Patient and Notify Provider/Delivery Rep For Contact: Notify Provider/Delivery Rep Advance Directive: Advance Directive/DNRyes (2) Advance Directive typeLiving Will(2) Living Will AvailabilityLiving Will not available now Living Will [id number] Duncan Fall Screen: History of falling (immediate or previous)yes (25) Secondary Diagnosisyes (15) Intravenous Therapy/ Heparin/Saline Lockyes (20) Gait/Transferringimpaired (20) Ambulatory Aidscrutches/walker/cane (15) Mental Statusoriented to own ability (0) Score: Low risk (<25). Moderate risk (25-44). High risk (>44).95 Duncan InterventionsHIGH INTERVENTIONS *Low and Moderate Interventions Plus: * supervised toileting at all times Family Violence Screen: Are you or have you been threatened or abused physically, emotionally, or sexually by anyoneno Has anyone ever threatened to hurt your family or your petsno Does anyone try to keep you from having/contacting other friends or doing things outside your homeno Do you feel UNSAFE going back to the place where you are livingno Do you feel anyone has exploited or taken advantage of you financially or of your personal propertyno Clinical assessment: Are there any apparent signs of injuries/behaviors that could be related to abuse/neglectno Social Service Consult for abuse/neglect needed this visitno Functional Screen: Functional Screen: In the recent/past 2-4 weeks, patient or family have noticedno issues that require a speech/language consult at this time AM-PAC- Basic Mobility/Daily Activity: Patient baseline bedboundno Turning from your back to your side while in a flat bed without using bedrailsa little Moving from lying on your back to sitting on the side of a flat bed without using bedrailsa little Moving to and from bed to chair (including a wheelchair)a lot Standing up from a chair using your arms (e.g. wheelchair or bedside chair)a lot To walk in hospital rooma lot Climbing 3-5 steps with railinga lot Basic Mobility - Total Score14 Putting on and taking off regular lower body clothinga lot Bathing (including washing, rinsing, drying)a lot Putting on and taking off regular upper body clothinga lot Toileting, which includes using toilet, bedpan or urinala lot Taking care of personal grooming such as brushing teetha lot Eating Mealsa lot Daily Activity - Total Score12 Learning Assessment (Patient): Patient is Able to be Assessed for Learningyes Factors Influencing Readiness to Learnacuteness of illness Factors that Impact Ability to Learnvisual problems Devices/Methods Used to Communicateglasses Learning Preferencesverbal instruction; written material Cultural Considerationsnone Developmental Considerationsnone Presybeterian Considerationsreligious considerations presybeterian Learning Assessment (Other Learner): Other learner availableno Depression Screen: During the past month, have you often been bothered by feeling down, depressed or hopelessno During the past month, have you often had little interest or pleasure in doing thingsno Have you had any thoughts of harming anyone elseno (1) Cobb Suicide: Risk Screen Not Applicable/Able to Answerable to be screened In the Past Month: Have you wished you were or could go to sleep and not wake upno(1) In the Past Month: Have you had any actual thoughts of killing yourself no(1) Lifetime: Have you ever done, started to do, or prepared to do anything to end your lifeno Cobb Suicide Risknegative Adult Nutrition Screen: Have you recently lost weight without tryingno Have you been eating poorly because of a decreased appetiteno Malnutrition Screening Tool Score0 Malnutrition Screening Tool RiskMST = 0 or 1 Not at risk. Eating well with little or no weight loss Nutrition Consult needed this visitno Can Patient Participate in Room Serviceyes Patient requires Paper Di (more content not included)... Normal [facility] BASIC METABOLIC PANELon 10- Anion gap [Moles/Vol] 10 mmol/L Normal 10 - 20 [facility] Comment on above: Performed By: #### B MP #### [place] [id number] [place] [address] Calcium [Mass/Vol] 8.1 mg/dL Low 8.6 - 10.3 [facility] Comment on above: Performed By: #### B MP #### [address] [address] Chloride [Moles/Vol] 97 mmol/L Low 98 - 107 [facility] Comment on above: Performed By: #### B MP #### [address] [address] Creatinine [Mass/Vol] 0.69 mg/dL Normal 0.50 - 1.05 [facility] Comment on above: Performed By: #### B MP #### [address] [address] GFR- AM. >60 Normal >60 [facility] Comment on above: Result Comment: CALC ULATIONS OF ESTIMATED GFR ARE PERFORMED USING THE MDRD STUDY EQUATION FOR THE IDMS-TRACEABLE CREATININE METHODS. CLIN CHEM 2007;53:766-72 Performed By: #### B MP #### [address] [address] GFR-NON AM. >60 Normal >60 [facility] Comment on above: Performed By: #### B MP #### [address] [address] Glucose [Mass/Vol] 103 mg/dL High 74 - 99 [facility] Comment on above: Performed By: #### B MP #### [address] [address] HCO3 (Bld) [Moles/Vol] 25 mmol/L Normal 21 - 32 [facility] Comment on above: Performed By: #### B MP #### [address] [address] Potassium [Moles/Vol] 4.2 mmol/L Normal 3.5 - 5.3 [facility] Comment on above: Performed By: #### B MP #### [address] [address] Sodium [Moles/Vol] 128 mmol/L Low 136 - 145 [facility] Comment on above: Performed By: #### B MP #### [address] [address] Urea nitrogen [Mass/Vol] 12 mg/dL Normal 6 - 23 [facility] Comment on above: Performed By: #### B MP #### [address] [address] CBC AND DIFFERENTIALon 12-26 Basophils (Bld) [#/Vol] 0.00 10*3/uL Normal 0.00 - 0.10 [facility] Comment on above: Performed By: #### B MP #### [address] [address] Basophils/100 WBC (Bld) 0.4 % Normal 0.0 - 2.0 [facility] Comment on above: Performed By: #### B MP #### [address] [address] Eosinophils (Bld) [#/Vol] 0.20 10*3/uL Normal 0.00 - 0.40 [facility] Comment on above: Performed By: #### B MP #### [address] [address] Eosinophils/100 WBC (Bld) 4.2 % Normal 0.0 - 6.0 [facility] Comment on above: Performed By: #### B MP #### [address] [address] Erythrocyte distribution width (RBC) [Ratio] 14.2 % Normal 11.5 - 14.5 [facility] Comment on above: Performed By: #### B MP #### [address] [address] Hematocrit (Bld) [Volume fraction] 31.0 % Low 36.0 - 46.0 [facility] Comment on above: Performed By: #### B MP #### [address] [address] Hemoglobin (Bld) [Mass/Vol] 10.4 g/dL Low 12.0 - 16.0 [facility] Comment on above: Performed By: #### B MP #### [address] [place] [address] Lymphocytes (Bld) [#/Vol] 1.80 10*3/uL Normal 0.80 - 3.00 [facility] Comment on above: Performed By: #### B MP #### [address] [address] Lymphocytes/100 WBC (Bld) 31.1 % Normal 13.0 - 44.0 [facility] Comment on above: Performed By: #### B MP #### [address] [address] MCHC (RBC) [Mass/Vol] 33.4 g/dL Normal 32.0 - 36.0 [facility] Comment on above: Performed By: #### B MP #### [address] [address] MCV (RBC) [Entitic vol] 93 fL Normal 80 - 100 [facility] Comment on above: Performed By: #### B MP #### [address] [address] Monocytes (Bld) [#/Vol] 0.60 10*3/uL Normal 0.05 - 0.80 [facility] Comment on above: Performed By: #### B MP #### [address] [address] Monocytes/100 WBC (Bld) 10.2 % Normal 2.0 - 10.0 [facility] Comment on above: Performed By: #### B MP #### [address] [address] Neutrophils (Bld) [#/Vol] 3.10 10*3/uL Normal 1.60 - 5.50 [facility] Comment on above: Result Comment: Perc ent differential counts (%) should be interpreted in the context of the absolute cell counts (cells/L). Performed By: #### B MP #### [address] [address] Neutrophils/100 WBC (Bld) 54.1 % Normal 40.0 - 80.0 [facility] Comment on above: Performed By: #### B MP #### [address] [address] Platelets (Bld) [#/Vol] 157 10*3/uL Normal 150 - 450 [facility] Comment on above: Performed By: #### B MP #### [address] [address] RBC 3.35 x10E12/L Low 4.00 - 5.20 [facility] Comment on above: Performed By: #### B MP #### [address] [address] WBC (Bld) [#/Vol] 5.8 10*3/uL Normal 4.4 - 11.3 [facility] Comment on above: Performed By: #### B MP #### [address] [address] Consult-Orthopaedicson 12-26 Consult-Orthopaedic s Service: Service: Orthopaedics Consult: Consult requested by (Attending Name): Carson Bergman Reason: pelvic fx History of Present Illness: HPI: CAT CARROLL is a 85 year old Female who presented to the emergency department after sustaining ground-level fall. She unfortunately sustained a number of injuries with bruising to the left arm pain to left elbow and wrist as well as pain in the pelvis. The time of evaluation she had been admitted to the hospital for further care. At the time my evaluation she was complaining primarily of pelvic pain. She denies any numbness and tingling down the legs. She is known to me from previous right intertrochanteric hip fracture that underwent cephalomedullary nail fixation. Past medical history is consistent with low back pain with radiculopathy, spinal stenosis, diverticulosis, duodenal adenoma, anxiety, depression, fibromyalgia, hypertension, hyperlipidemia, IBS, obesity, sleep apnea, trigeminal neuralgia Past surgical history is lumbar spinal fusion right hip cephalomedullary nailing, appendectomy, cholecystectomy, hysterectomy, knee arthroplasty A 12 point review of systems is negative with the exception of those mentioned in the HPI Past Medical/Surgical History: Medical History: Trigeminal neuralgia: Macular degeneration: Hypertension: GERD (gastroesophageal reflux disease): Fibromyalgia: Arthritis: Sleep apnea: Surg History: Previous back surgery: History of elbow surgery: History of total knee replacement: History of knee surgery: History of hysterectomy: History of esophagogastroduodenoscopy (EGD): History of dilation and curettage: History of colonoscopy: History of cholecystectomy: Cataract: History of kidney surgery: Review Family/Social History and ROS: Family History: Family History: reviewed and not pertinent to presenting problem Social History: Smoking Status: never smoker (1) Alcohol Use: denies(1) Drug Use: denies (1) Allergies: Neosporin: Rash Latex: Rash Tape - Adhesive, Bandaids, Paper: Rash Intolerances: gabapentin: Dizziness aspirin: GI Upset codeine: GI Upset Dust: Congestion Objective: Objective Information: T PRBPSpO2 [id number]/6794% Date/Time12/26 20: 20: 20: 20: 20:35 Range(36.3C - 37.2C ) (72 - 93 ) (18 - 18 ) (116 - 126 )/ (56 - 69 ) (92% - 94% ) Highest temp of 37.2 C was recorded at 12/26 20:35 Pain reported at 12/26 23:35: sleeping Alert and oriented x3 no acute distress resting comfortably in the bed at the time of the exam no family is in the room currently Normocephalic and atraumatic extraocular movements are intact mucous members are moist neck is supple no JVD nonlabored breathing nondistended abdomen palpable peripheral pulses Left upper extremity does demonstrate ecchymosis around the hand with bandaging over skin tear as well as ecchymosis on the ulnar aspect of the forearm to the elbow there is tenderness palpation with pelvic rock mild tenderness on the lateral aspect of the hip there is negative heel strike negative logroll there is intact motor and sensory throughout the left lower extremity with intact dorsiflexion plantarflexion EHL calf is soft compressible warm well perfused leg Recent Lab Results: Results: I have reviewed these laboratory results: Complete Blood Count + Differential 26-Dec-2020 05:58:00 ResultValue White Blood Cell Count 5.8 Red Blood Cell Count 3.35 L HGB 10.4 L HCT 31.0 L MCV 93 MCHC 33.4 PLT 157 RDW-CV 14.2 Neutrophil % 54.1 Lymphocyte % 31.1 Monocyte % 10.2 Eosinophil % 4.2 Basophil % 0.4 Neutrophil Count 3.10 Lymphocyte Count 1.80 Monocyte Count 0.60 Eosinophil Count 0.20 Basophil Count 0.00 Basic Metabolic Panel 26-Dec-2020 05:58:00 ResultValue Glucose, Serum 103 H NA 128 L K 4.2 CL 97 L Bicarbonate, Serum 25 Anion Gap, Serum 10 BUN 12 CREAT 0.69 GFR-Non >60 GFR- >60 Calcium, Serum 8.1 L Assessment: Assessment-left sided pelvic ring fracture, multiple rib fractures Plan-I did review all the imaging which included the left wrist left elbow and hip as well as CT scan of the abdomen pelvis which did demonstrate ninth and 10th rib fractures there is no significant fracture in the left upper extremity at the elbow or the wrist there is a fracture of the superior and inferior pubic rami and sacral insufficiency fracture. We did have a long discussion about these fractures. They are all mild in nature but significant symptoms. These are typically treated nonoperatively with monitored or protected weightbearing usually with an assistive device and repeat x-rays over time to evaluate for any changes. -Patient can be weightbearing as tolerated but if she is painful she can limit her weightbearing -As needed pain control (more content not included)... Normal [facility] Daily Progress Note-General Internal Medicineon 12-26-2020 Daily Progress Note-General Internal Medicine Consult Type: subsequent visit/care Service: General Internal Medicine Subjective Data: CAT CARROLL is a 85 year old Female who is Hospital Day # 2. Overnight Events: Patient had an uneventful night. Objective Data: Objective Information: T PRBPSpO2 [id number]% Date/Time12/26 3: 3: 3: 3: 22:00 Range(36.1C - 37C ) (73 - 90 ) (16 - 18 ) (112 - 165 )/ (65 - 100 ) (92% - 96% ) Highest temp of 37 C was recorded at 12/25 14:43 Pain reported at 12/26 5:22: 7 = Severe Physical Exam by System: Constitutional: Well developed, awake/alert/oriented x3, no distress, alert and cooperative Eyes: PERRL, EOMI, clear sclera ENMT: mucous membranes dry, no apparent injury, no lesions seen Head/Neck: Neck supple, no apparent injury, thyroid without mass or tenderness, No JVD, trachea midline, no bruits Respiratory/Thorax: Patent airways, CTAB, normal breath sounds with good chest expansion, thorax symmetric Cardiovascular: Regular, rate and rhythm, no murmurs, 2+ equal pulses of the extremities, normal S 1and S 2 Gastrointestinal: Nondistended, soft, non-tender, no rebound tenderness or guarding, no masses palpable, no organomegaly, +BS, no bruits Extremities: ecchymosis and swelling to left extremity, MSP intact Neurological: alert and oriented x3, intact senses, motor, response and reflexes, normal strength upper extremities, decreased lower due to pain Psychological: Appropriate mood and behavior Skin: Warm and dry, no lesions, no rashes Medication: Medications: Continuous Medications ----- No continuous medications are active Scheduled Medications ----- 1. Acetaminophen: 975 mg Oral Every 8 Hours 2. Atorvastatin: 80 mg Oral Daily 3. carBAMazepine: 200 mg Oral 3 Times a Day 4. cefTRIAXone 1 gram/ Dextrose 5% IVPB Premixed Soln 50 mL: 50 mL IntraVenous Piggyback Every 24 Hours 5. Enoxaparin SubCutaneous: 40 mg SubCutaneous Every 24 Hours 6. Losartan: 25 mg Oral Daily 7. Metoprolol Tartrate: 25 mg Oral 2 Times a Day 8. Pantoprazole: 40 mg Oral Daily PRN Medications ----- 1. Acetaminophen: 650 mg Oral Every 4 Hours 2. Magnesium Hydroxide Oral Liquid CONCENTRATE: 10 mL Oral Every 24 Hours 3. Melatonin: 10 mg Oral At Bedtime 4. Morphine Injectable: 2 mg IntraVenous Push Every 4 Hours 5. Ondansetron Injectable: 4 mg IntraVenous Push Every 4 Hours 6. traMADol: 50 mg Oral Every 6 Hours Recent Lab Results: Results: I have reviewed these laboratory results: Complete Blood Count + Differential 26-Dec-2020 05:58:00 ResultValue White Blood Cell Count 5.8 Red Blood Cell Count 3.35 L HGB 10.4 L HCT 31.0 L MCV 93 MCHC 33.4 PLT 157 RDW-CV 14.2 Neutrophil % 54.1 Lymphocyte % 31.1 Monocyte % 10.2 Eosinophil % 4.2 Basophil % 0.4 Neutrophil Count 3.10 Lymphocyte Count 1.80 Monocyte Count 0.60 Eosinophil Count 0.20 Basophil Count 0.00 Basic Metabolic Panel 26-Dec-2020 05:58:00 ResultValue Glucose, Serum 103 H NA 128 L K 4.2 CL 97 L Bicarbonate, Serum 25 Anion Gap, Serum 10 BUN 12 CREAT 0.69 GFR-Non >60 GFR- >60 Calcium, Serum 8.1 L Magnesium, Serum 26-Dec-2020 05:58:00 ResultValue Magnesium, Serum 1.28 L Phosphorus, Serum 26-Dec-2020 05:58:00 ResultValue Phosphorus, Serum 3.8 Radiology Results: Results: Impression: No evidence of acute cardiopulmonary process. Acute minimally displaced fracture of the lateral left 9th rib. Xray Ribs Unilateral with PA Cxr 3 View [Dec 25 2020 9:28PM] Impression: 1. Acute nondisplaced left sacral insufficiency fracture of S1. New, though age indeterminate bilateral sacral insufficiency fractures at S2-3 the that demonstrates sclerosis, and maybe subacute or chronic. 2. Acute minimally displaced fracture of the left ischiopubic junction and left iliopectineal junction with possible extension to the anterior wall of the left acetabulum. 3. Acute mildly displaced fracture of the lateral 9th rib and a nondisplaced fracture of the lateral left 10th rib. 4. Status post L5-S1 lumbosacral fusion with periprosthetic lucency indicating loosening, and aberrant course of the right L5 screw above the pedicle into the lower L4 vertebral body, unchanged. 5. Status post right femoral intramedullary nail and intertrochanteric screw traversing a poorly healed intertrochanteric fracture demonstrating corticated margins and minimal bony bridging. 6. Colonic diverticulosis. 7. Small amount of air in the urinary bladder alignment of indeterminate etiology. Correlate for recent instrumentation, otherwise the urinalysis is recommended. CT Abdomen and Pelvis without Contrast [Dec 25 2020 6:55PM] Impression: 1. No displaced fracture or dislo (more content not included)... 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 Address, telephone, and primary contact confirmed. Patient denies problems obtaining/affording medications, takes as prescribed, understands reasons for use and possible side effects. Pt lives with daughter who does not work in a mobile home with 3 steps to enter. Normally handles these steps well. Here for a fall, it was reported in care rounds that pt will need placement for loose linus and multiple fractures, normally ambulates independently with cane. Independent in all ADL's. Daughter does most cooking, cleaning, all of the driving. [facility] 9, I talked with pt and son regarding this. Pt adamantly refuses placement Her desire is to return home, resume PC with [facility] and new home care with [facility] for PT. I asked her how she intends to get up to the bathroom she reports, I have my daughter there and a BSC if I need it. I let her information on multiple fractures and loose linus and the risk of falls and further complications. SH verbalizes understanding but will not agree for SNF or for referrals to be submitted. Her son has no input. I notified PCN Mari Mclaughlin to submit referral to [facility]. Update given to floor nurse Merry and charge nurse Valerie. Let pt know that PT would be in to see her and that we would follow if she were to change her mind. Asked PT to see pt, they report that pt is not on caseload, message sent to BETO Pacheco asking for PT order. PT order placed and notified. PT reports that pt will not be seen today. CT will follow. Kerri Garcia RN- [facility] 12/26/2020 12:31 PCN: Notified by [facility] that patient's preference for home care agency is [facility] and referral will be submitted for review. SAMANTHA Reno 12/27 (1:06pm) EDUARDO Nguyen N [phone]/DOC HALO Final homecare orders sent to [facility] awaiting confirmed start of care. Per [facility]- scheduled for SOC 12/2912/27/20 @ 134pm Care Transitions/SW Note: Pt reviewed during Care Rounds today- recommendation from HOSPITALITY TEAM MEMBER is for SNF placement. PT evaluation requested/completed, as nursing AMPAC score is 11. SW reviewed PT evaluation- the recommendation is for home with [facility] services. PT AMPAC score is 17. SW met with pt to review her discharge plan. Her oyster cultivator was at the bedside and she did provide permission for SW to speak in front of him. Pt confirms her desires to return home where she lives with her daughter. We did review the visit parameters of [facility] (3 days/week) and all other care would have to be provided by family or a privately hired caregiver. Pt confirms her daughter is unemployed and will be able to assist pt as needed. Pt does have a walker, bedside commode, and most recently acquired a wheelchair. Pt has no concerns regarding her discharge plan. Tara Azul/Soumya Landaverde updated. PCN/Dacia attached final updates and orders- start of care will be 12/29/20- pt updated. No further needs identified at this time. KEITH Lin Discharge Note: 12/27/2020 1420 Discharge instructions and pt responsibilities reviewed with pt and copy given. Preventing falls in older adults education reviewed with pt and information sheets given. Pt verbalizes understanding of instructions received, verbalizes understanding of when to seek medical attention, denies any home going or personal care needs outside of [facility]. Denies further questions or concerns. Reviewed follow up appt with Gisell Desai and pt states prefers to schedule own appt. Yoly LOUISmachine i cutter Note: 12/27/2020 1500 [facility] hand off sheet, Covid-19 pt transfer communication tool, and Covid result faxed to [facility] [phone]. Yoly LOUISmachine i cutter Note: 12/27/2020 1608 Discharged via wheelchair to private car accompanied by PCT, personal belongings taken by patient, no distress noted, no complaints voiced. Yoly LOUISpurse seiner: Discharge Planning Assessment [id number] Discharge Planning Assessment Completed byKerri Garcia RN- TCC Primary Contact Name and NumberEsvin Romero [phone] Prior Level of FunctioningIndependent in all ADL's. Daughter does most cooking, cleaning, all of the driving Lives Withadult child(william) Living Arrangementsmobile home; 3 steps to enter, have been managing well. Stated Reason for Admissionfell at home(1) Arrived Fromemergency department (1) [facility]AM [facility]/ Injury/ Need Assist with Ambulationyes- reason for admit- normally ambulates independently with cane. Equipment Currently Used at Homecane, quad/str (more content not included)... Normal [facility] EMR ADDONon 12-26-2020 ADDON CONFIRMATION REQUEST REC'D Normal [facility] Comment on above: Performed By: #### E MRAD ####[address] [address] MAGNESIUMon 12-26-2020 Magnesium [Mass/Vol] 1.28 mg/dL Low 1.60 - 2.40 [facility] Comment on above: Performed By: #### M G ####[address] [address] Order Reconciliationon 12-26 Order Reconciliation Page 1 Admission Reconciliation Document Reconciliation Type: ED to Observation requested on behalf of Carson Bergman (Physician) done by Carson Bergman) ED to Observation - Reconciliation: 26-Dec-2020 00:07 by: Carson Bergman) ED to Observation - AutoLinked: 26-Dec-2020 00:07 by: Carson Bergman) Home MedicationsEnteredLast Dose TakenReconciled with current Order Reconciliation Comment/ Additional Information Aspirin Enteric Coated 325 mg oral delayed release tablet 1 tab(s) orally 2 times a day x 30 days [id number] AM Held and Reconciled, Review at Next Reconciliation carBAMazepine 200 mg oral tablet 1 tab(s) orally 3 times a [id number]-Wwg-274526-Dec-2020 AM carBAMazepine Tablet (TEGRETOL)DOSE = 200 mg Oral 3 Times a DaycarBAMazepine 200 mg oral tablet continued as the inpatient order carBAMazepine Centrum Silver oral tablet 1 tab(s) orally once a [id number] AM Reviewed and Held Flovent HFA 110 mcg/inh inhalation aerosol 2 puff(s) inhaled 2 times a day Reviewed and Held Lipitor 80 mg oral tablet 1 tab(s) orally once a [id number]-[id number] PM Atorvastatin Tablet (LIPITOR)DOSE = 80 mg Oral DailyLipitor 80 mg oral tablet continued as the inpatient order Atorvastatin losartan 25 mg oral tablet 1 tab(s) orally once a [id number] AM Losartan Tablet (COZAAR)DOSE = 25 mg Oral Dailylosartan 25 mg oral tablet continued as the inpatient order Losartan Melatonin 12 milligram(s) orally once a day (at bedtime)26-Dec-2020 Melatonin TabletDOSE = 10 mg Oral At Bedtime, PRN InsomniaMelatonin continued as the inpatient order Melatonin Metoprolol Tartrate 25 mg oral tablet 1 tab(s) orally 2 times a ljh50-Cig-220326-Dec-2020 PM Metoprolol Tartrate Tablet (LOPRESSOR)DOSE = 25 mg Oral 2 Times a DayMetoprolol Tartrate 25 mg oral tablet continued as the inpatient order Metoprolol Tartrate nitroglycerin 0.4 mg sublingual tablet 1 tab(s) sublingual every 5 minutes, As [id number] Reviewed and Held omeprazole 40 mg oral delayed release capsule 1 cap(s) orally once a day AM Pantoprazole Enteric Coated Tablet (PROTONIX)DOSE = 40 mg Oral Dailyomeprazole 40 mg oral delayed release capsule continued as the inpatient order Pantoprazole Probiotic Formula oral capsule 1 cap(s) orally once a sgw66-Inw-460326-Dec-2020 AM Reviewed and Held Vitamin B12 100 mcg oral tablet 1 tab(s) orally once a bys88-Rux-432126-Dec-2020 AM Reviewed and Held Vitamin B6 100 mg oral tablet 1 tab(s) orally once a [id number]-Vfg-600426-Dec-2020 AM Reviewed and Held Vitamin D3 1 tab(s) orally once a [id number]-[id number] AM Reviewed and Held Normal [facility] 12-26-2020 Phosphate [Mass/Vol] 3.8 mg/dL Normal 2.5 - 4.9 [facility] Comment on above: Result Comment: The performance characteristics of phosphorus testing in heparinized plasma have been validated by the individual laboratory site where testing is performed. Testing on heparinized plasma is not approved by the FDA; however, such approval is not necessary. Performed By: #### B #### [address] [place] [address] Patient Profile - Adult v2on 12-26-2020 Patient Profile - Adult v2 Profile: Initial Info: How to be AddressedVERLIN(1) Spoken Language PreferredEnglish (1) Stated Reason for Admissionfell at home Primary Contact Name and NumberGeorbebeto Romero [phone] Wants Family/Rep Notified of Admissionson aware Notify PCPnotify PCP Jannet Desai Informed of Patient Visiting Rightsyes [facility] Patient Belongingsremains with patient Patient Belongings Remaining with Patientjewelry; vision aids; dental appliance; clothing Medications Brought to Hospitalno General Health: Weight in kg61.8 kilogram(s) Weight in pmy722.2 pound(s) Weight Methodactual (measured) Scale Typebed Height in cm162.5 centimeter(s) Height in feet5 feet(2) Height in inches4 inch(es)(2) Height Methodstated BMI (kg/m2)23.403 square meter RSP Based Care: How would you like to participate in your carebe able to answer questions What is the number one concern for you during this hospitalizationget through this What is the most important thing we can do to support you during this hospitalizationanswer questions Is there anything we need to know to best care for youno Substance: Smoking Statusnever smoker (3) Alcohol Usedenies(3) Drug Usedenies (3) Health Mgmt: Symptoms/Conditions Managed at Homecardiovascular; gastrointestinal Cardiovascular Symptoms/Conditionshyperten blossom Cardiovascular Managementmanaged Gastrointestinal Symptoms/Conditionsreflux/h eartburn Gastrointestinal Managementmanaged Relationship/Environ: Resource/Environmental Concernsnone Primary Source of Support/Comfortchild(william) Lives Withalone Living Arrangementsmobile home Services [facility] Anticipated Transition Tosawyer Significant IndicatorsComplete Information Review: Allergies, Home Meds and Significant Events have been Reviewed and Verified with Patient/Familyyes ALLERGY, INTOLERANCE, ADVERSE EVENT: Allergies: Neosporin: Drug, Rash, Active Latex: Latex, Rash, Active Tape - Adhesive, Bandaids, Paper: Environment, Rash, Active Intolerances: gabapentin: Drug, Dizziness, Active aspirin: Drug, GI Upset, Active codeine: Drug, GI Upset, Active Dust: Environment, Congestion, Active Electronic Signatures: Celina Clemente (MISSY) (Signed 25-Dec-2020 22:25) Authored: Initial Info, General Health, [facility] Based Care, Substance, Health Mgmt, Relationship/Environ, Additional Information Last Updated: 25-Dec-2020 22:25 by Celina Clemente (MISSY) References: 1. Data Referenced From Patient Profile - Adult v2 02-Apr-2020 20:12 2. Data Referenced From 1. Vital Signs 25-Dec-2020 14:43 3. Data Referenced From Risk Screen - Adult Emergency 25-Dec-2020 21:32 Normal [facility] URIC ACIDon 12-26-2020 Urate [Mass/Vol] 3.4 mg/dL Normal 2.3 - 6.7 [facility] Comment on above: Result Comment: Alyssa puncture immediately after or during the administration of Metamizole may lead to falsely low results. Testing should be performed immediately prior to Metamizole dosing. Performed By: #### B MP #### [address] [address] URINE CULTURE,BACTERIALon URINE CULTURE,BACTERIAL PATIENT: CAT CARROLL LOCATION: [address]#: [id number] : 37 AGE: SEX: F ORDERED BY: CARMITA MCCURDY SOURCE: URINE COLLECTED: 12/26/20 14:17 ANTIBIOTICS AT JOANNA.: RECEIVED : 12/26/20 14:17 SITE: Unspecified R E S U L T S URINE CULTURE,BACTERIAL FINAL 12/27/20 09:18 MULTIPLE ORGANISMS PRESENT, PROBABLE CONTAMINATION PLEASE REPEAT CULTURE. Normal [facility] Comment on above: Performed By: #### U [facility] ####[id number] [place] [address] BASIC METABOLIC PANELon - Anion gap [Moles/Vol] 13 mmol/L Normal 10 - 20 [facility] Comment on above: Performed By: #### B MP #### [address] [address] Sodium [Moles/Vol] 128 mmol/L Low 136 - 145 [facility] Comment on above: Result Comment: @rec hecked alternate analyzer Performed By: #### B MP #### [address] [address] Calcium [Mass/Vol] 8.3 mg/dL Low 8.6 - 10.3 [facility] Comment on above: Performed By: #### B MP #### [address] [address] Chloride [Moles/Vol] 95 mmol/L Low 98 - 107 [facility] Comment on above: Performed By: #### B MP #### [address] [address] Creatinine [Mass/Vol] 0.69 mg/dL Normal 0.50 - 1.05 [facility] Comment on above: Performed By: #### B MP #### [address] [address] GFR- AM. >60 Normal >60 [facility] Comment on above: Result Comment: CALC ULATIONS OF ESTIMATED GFR ARE PERFORMED USING THE MDRD STUDY EQUATION FOR THE IDMS-TRACEABLE CREATININE METHODS. CLIN CHEM 2007;53:766-72 Performed By: #### B MP #### [address] [address] GFR-NON AM. >60 Normal >60 [facility] Comment on above: Performed By: #### B MP #### [address] [address] Glucose [Mass/Vol] 124 mg/dL High 74 - 99 [facility] Comment on above: Performed By: #### B MP #### [address] [address] HCO3 (Bld) [Moles/Vol] 24 mmol/L Normal 21 - 32 [facility] Comment on above: Performed By: #### B MP #### [address] [address] Potassium [Moles/Vol] 4.1 mmol/L Normal 3.5 - 5.3 [facility] Comment on above: Performed By: #### B MP #### [address] [address] Urea nitrogen [Mass/Vol] 13 mg/dL Normal 6 - 23 [facility] Comment on above: Performed By: #### B MP #### [address] [address] CBC AND DIFFERENTIALon 12-25 Basophils (Bld) [#/Vol] 0.00 10*3/uL Normal 0.00 - 0.10 [facility] Comment on above: Performed By: #### C BCDF ####[address] [address] Basophils/100 WBC (Bld) 0.4 % Normal 0.0 - 2.0 [facility] Comment on above: Performed By: #### C BCDF ####[address] [address] Eosinophils (Bld) [#/Vol] 0.00 10*3/uL Normal 0.00 - 0.40 [facility] Comment on above: Performed By: #### C BCDF ####[address] [address] Eosinophils/100 WBC (Bld) 0.1 % Normal 0.0 - 6.0 [facility] Comment on above: Performed By: #### C BCDF ####[address] [address] Erythrocyte distribution width (RBC) [Ratio] 14.4 % Normal 11.5 - 14.5 [facility] Comment on above: Performed By: #### C BCDF ####[address] [address] Hematocrit (Bld) [Volume fraction] 35.8 % Low 36.0 - 46.0 [facility] Comment on above: Performed By: #### C BCDF ####[address] [address] Hemoglobin (Bld) [Mass/Vol] 11.7 g/dL Low 12.0 - 16.0 [facility] Comment on above: Performed By: #### C BCDF ####[address] [address] Lymphocytes (Bld) [#/Vol] 1.20 10*3/uL Normal 0.80 - 3.00 [facility] Comment on above: Performed By: #### C BCDF ####[address] [address] Lymphocytes/100 WBC (Bld) 10.5 % Normal 13.0 - 44.0 [facility] Comment on above: Performed By: #### C BCDF ####[address] [address] MCHC (RBC) [Mass/Vol] 32.7 g/dL Normal 32.0 - 36.0 [facility] Comment on above: Performed By: #### C BCDF ####[address] [address] MCV (RBC) [Entitic vol] 93 fL Normal 80 - 100 [facility] Comment on above: Performed By: #### C BCDF ####[address] [address] Monocytes (Bld) [#/Vol] 1.00 10*3/uL High 0.05 - 0.80 [facility] Comment on above: Performed By: #### C BCDF ####[address] [address] Monocytes/100 WBC (Bld) 8.4 % Normal 2.0 - 10.0 [facility] Comment on above: Performed By: #### C BCDF ####[address] [address] Neutrophils (Bld) [#/Vol] 9.30 10*3/uL High 1.60 - 5.50 [facility] Comment on above: Result Comment: Perc ent differential counts (%) should be interpreted in the context of the absolute cell counts (cells/L). Performed By: #### C BCDF ####[address] [address] Neutrophils/100 WBC (Bld) 80.6 % Normal 40.0 - 80.0 [facility] Comment on above: Performed By: #### C BCDF ####[address] [address] Platelets (Bld) [#/Vol] 193 10*3/uL Normal 150 - 450 [facility] Comment on above: Performed By: #### C BCDF ####[address] [address] RBC 3.87 x10E12/L Low 4.00 - 5.20 [facility] Comment on above: Performed By: #### C BCDF ####[address] [address] WBC (Bld) [#/Vol] 11.5 10*3/uL High 4.4 - 11.3 [facility] Comment on above: Performed By: #### C BCDF ####[address] [address] CORONAVIRUS 2019, SCREEN ASY MPTOMATICon 12-25-2020 SARS-CoV-2 (COVID-19) RNA SUJEY+probe Ql (Unsp spec) Not detected Normal Not Detected [facility] Comment on above: Result Comment: . This test has received FDA Emergency Use Authorization (EUA) and has been verified by [facility]. This test is only authorized for the duration of time that circumstances exist to justify the authorization of the emergency use of in vitro diagnostic tests for the detection of SARS-CoV-2 virus and/or diagnosis of COVID-19 infection under section 564(b)(1) of the Act, 21 U.S.C. 360bbb-3(b)(1), unless the authorization is terminated or revoked sooner. [facility] is certified under CLIA-88 as qualified to perform high complexity testing. Testing is performed in the [facility] laboratory located at [address] [place] [address]. SARS-CoV-2/Flu/RSV Multiplex Test: Fact sheet for providers: https://www.fda.gov/media/707021/download Fact sheet for patients: https://www.fda.gov/media/399081/download Performed By: #### C OVSC ####[place] [address] Lab Specimen Source Nasal, Nasopharyngeal Normal [facility] Comment on above: Performed By: #### C OVSC ####[place] [address] CT ABDOMEN AND PELVIS WO CON TRASTon 12-25-2020 CT ABDOMEN AND PELVIS WO CONTRAST Patient Name: CAT CARROLL STUDY: CT ABDOMEN AND PELVIS WO CONTRAST; 12/25/2020 6:26 pm INDICATION: left hip pain, r/o occult fx . COMPARISON: 07/06/2018, 05/09/2014 ACCESSION NUMBER(S): [id number] ORDERING CLINICIAN: CARMITA MCCURDY TECHNIQUE: Contiguous axial images of the abdomen and pelvis were obtained without intravenous contrast. Coronal and sagittal reformatted images were reconstructed from the axial data. FINDINGS: LOWER CHEST: Mild scarring in the lingula and right middle lobe. Mild bronchiectasis in the right middle lobe. There is a 0.6 cm a ground-glass nodule in the left unchanged from 07/06/2018. Note: The absence of intravenous contrast limits evaluation of the solid organs and vasculature. ABDOMEN/PELVIS: ABDOMINAL WALL: No significant abnormality. LIVER: The liver demonstrates a normal noncontrast attenuation. There is an intermediate density 1.2 cm lesion within the subcapsular aspect of segment 4A that is unchanged from 07/06/2018, likely a hemangioma. BILE DUCTS: Mildly prominent extrahepatic bile ducts is likely due to combination of age and postcholecystectomy status. Specifically, the proximal common bile duct measures 1.4 cm, slightly increased from 07/06/2018, though minimally changed from 05/09/2014 (1.3 cm), therefore likely representing differences in fasting state. GALLBLADDER: Surgically absent. SPLEEN: Calcified granulomas. The spleen is normal in size. PANCREAS: No significant abnormality. ADRENALS: No significant abnormality. KIDNEYS, URETERS, BLADDER: No nephroureterolithiasis or hydroureteronephrosis. There is a trace amount of air in the urinary bladder lumen. The urinary bladder wall is not thickened. REPRODUCTIVE ORGANS: Surgically absent uterus. VESSELS: No significant abnormality. RETROPERITONEUM/LYMPH NODES: No enlarged lymph nodes. BOWEL/MESENTERY/PERITONEUM: Mild colonic diverticulosis. No inflammatory bowel wall thickening or dilatation. Normal appendix. No ascites, free air, or fluid collection. MUSCULOSKELETAL: There is a mildly displaced fracture of the lateral left 9th rib and nondisplaced fracture of the lateral left 10th rib. There are healed fractures of the posterior left 8th and 9th ribs. There is an acute left sacral insufficiency fracture without significant displacement at S1. There is an age-indeterminate sacral insufficiency fracture on the right and left at S2-3 that appears new from prior study. There is an in old nondisplaced sacral fracture S5. There is an acute nondisplaced fracture of the left ilium near the iliopectineal junction with possible extension to the anterior wall of the left acetabulum. There is an acute minimally displaced fracture of the left ischiopubic ramus. There is a minimally displaced acute fracture of the right pubic body. There is a partially visualized intramedullary right femoral nail with intratrochanteric screw traversing a poorly healed intertrochanteric fracture where fracture margins are corticated and there is minimal bony bridging. There postsurgical changes of L5-S1 posterior fusion with discectomy. There is periprosthetic lucency involving the bilateral S1 and L5 screws and the right L5 screw traverses superiorly beyond the cortex of the pedicle and prostate L4-L5 endplate into the lower L4 vertebral body, unchanged. IMPRESSION: 1. Acute nondisplaced left sacral insufficiency fracture of S1. New, though age indeterminate bilateral sacral insufficiency fractures at S2-3 the that demonstrates sclerosis, and may be subacute or chronic. 2. Acute minimally displaced fracture of the left ischiopubic junction and left iliopectineal junction with possible extension to the anterior wall of the left acetabulum. 3. Acute mildly displaced fracture of the lateral 9th rib and a nondisplaced fracture of the lateral left 10th rib. 4. Status post L5-S1 lumbosacral fusion with periprosthetic lucency indicating loosening, and aberrant course of the right L5 screw above the pedicle into the lower L4 vertebral body, unchanged. 5. Status post right femoral intramedullary nail and intertrochanteric screw traversing a poorly healed intertrochanteric fracture demonstrating corticated margins and minimal bony bridging. 6. Colonic diverticulosis. 7. Small amount of air in the urinary bladder alignment of indeterminate etiology. Correlate for recent instrumentation, otherwise the urinalysis is recommended. Electronically signed by: TAE GLASS MD [facility] Covid 19 Resultson 1 SARS-CoV-2 (COVID-19) RNA SUJEY+probe Ql (Unsp spec) NEGATIVE COVID-19 Test Coronaviruses are common world-wide and are the cause of many common colds. SARS-COV2 is a new coronavirus that began circulating worldwide in 2019 so we are calling it COVID-19. It has been estimated that four out of five patients with COVID-19 will recover at home without the need for medical attention. Symptoms of COVID-19 may include cough, fever, shortness of breath, loss of taste or smell and other flu-like symptoms including chills, sore muscles, sore throat, and headache. Severe illness is more common in older people and people with other health problems such as high blood pressure, obesity, and immune system problems. If the test is positive, you have COVID-19. You will be contacted by the ordering physicians office and instructed to remain on home isolation, in accordance with CDC guidelines. You may also be contacted by the [facility] to see if any of your close contacts may have been exposed to the virus and need to quarantine. If the test is negative, you likely do not have COVID-19 at this time, but you still may have a different illness that can spread to other people (like Influenza, or the Flu) and could still be at risk for getting COVID-19. We recommend that you stay away from other people to limit the spread of illness until your symptoms are improving and you are fever-free for 24 hours without the use of fever lowering medications such as acetaminophen or ibuprofen. No test is 100% accurate so if you are still concerned you may have COVID-19, talk to your doctor about the need to continue to stay away from others. Medicines Unless your provider told you not to use the following: Acetaminophen (Tylenol and others) is generally safe. Anti-inflammatory medications, such as Ibuprofen (Advil or Motrin) or Naproxen (Aleve) can also be used. Drzv-wro-ivytlkj cough and cold medicines can be used according to the instructions on the package. Some qdje-hqs-jhraoyt medicines also contain acetaminophen. Make sure you are not taking more than your recommended dose. For those not hospitalized, there is no specific treatment available for this illness. Antibiotics do not treat Coronaviruses. Follow-Up Follow up with your doctor by scheduling a virtual visit or consider follow-up at one of our urgent care fever clinics. If you are having difficulty breathing, or are very weak and having difficulty standing, this is a medical emergency. Call 911 or have someone take you to the nearest emergency room immediately. If possible, wear a facemask. Additional guidance from the CDC for patients who tested POSITIVE for COVID-19 How to isolate: Isolate yourself in a specific room at home and limit your contact with others. Use a separate bathroom from other members of the household, when possible. Leave home only to get essential medical care. Do not go to work, school or public areas. Avoid using public transportation, ride-sharing, or taxis. Restrict contact with pets and other animals. If you must care for your pet or be around animals while you are sick, wash your hands before and after your interaction and wear a facemask. Make sure that shared spaces in the home have good airflow, such as by an air conditioner or an opened window, weather permitting. Personal Hygiene Procedures: Wear a face mask when in the same room as other people or pets. If a face mask interferes with your breathing, others should wear a mask when sharing space with you. Frequent hand-washing: wash your hands with soap and water for at least 20 seconds. If soap and water are not available, use alcohol-based hand measuring machine operator. Avoid touching your eyes, nose, and mouth with unwashed hands. Household Hygiene Procedures: Avoid sharing personal household items such as dishes, glassware, cups, eating utensils, towels or bedding with other people or pets in your home. After use, these items should be washed with soap and hot water. Disinfect all high-touch surfaces every day with antibacterial cleaning solutions such as Lysol wipes, bleach, cleansers, etc. High-touch surfaces include tabletops, doorknobs, bathroom fixtures, toilets, phones, keyboards, tablets and bedside tables. Immediately clean any surfaces that may have blood, poop or body fluids on them, using antibacterial cleaning solutions such as Lysol wipes, bleach, cleansers, etc. If clothing or bedding come into contact with blood, poop or body fluids, they should be washed immediately. Follow the directions on the laundry detergent and clothing labels but hot water is recommended when possible. Stopping home isolation precautions: If possible, consult your doctor before stopping home isolation precautions. According to the CDC, you can discontinue home isolation precautions when you have met both of these criteria: Your fever and respiratory symptoms have been gone for 24 dottie (more content not included)... Normal [facility] ELBOW COMPLETE MIN. 3 VIEWSo n 12-25-2020 ELBOW COMPLETE MIN. 3 VIEWS Patient Name: CAT CARROLL STUDY: ELBOW COMPLETE MIN 3 VIEWS; 12/25/2020 3:30 pm INDICATION: fall . COMPARISON: None. ACCESSION NUMBER(S): [id number] ORDERING CLINICIAN: CARMITA MCCURDY TECHNIQUE: Five views of the left elbow including AP, lateral, oblique and radial head views were obtained. FINDINGS: Significant soft tissue swelling is seen posterior to the elbow. There is no significant elbow joint effusion identified. No radiographic evidence of displaced fracture or dislocation is identified. The joint spaces are well preserved without significant degenerative changes. IMPRESSION: 1. No displaced fracture or dislocation is identified. Electronically signed by: BLAYNE REID MD [facility] EMR ADDONon 12-25-2020 ADDON CONFIRMATION Canceled [facility] Comment on above: Order Comment: TEST EMR ADDON WAS CANCELLED, 12/25/2020 21:13 DUPLICATE ORDER. Performed By: #### E MRAD ####[place] [address] ADDON CONFIRMATION REQUEST REC'D [facility] Comment on above: Performed By: #### E MRAD ####[id number] HIP, UNILATERAL W/PELVIS WHE N PERFORMED 2-3 VIEWSon 12-25-2020 HIP, UNILATERAL W/PELVIS WHEN PERFORMED 2-3 VIEWS Patient Name: CAT CARROLL STUDY: HIP, UNILATERAL W/PELVIS WHEN PERFORMED 2-3 VIEWS; 12/25/2020 3:30 pm INDICATION: fall . COMPARISON: None. ACCESSION NUMBER(S): [id number] ORDERING CLINICIAN: CARMITA MCCURDY TECHNIQUE: A single AP view of the pelvis as well as AP and lateral views of the left hip were obtained. FINDINGS: The patient is status post right hip screw placement.There is no acute fracture or dislocation identified. Moderate hypertrophic degenerative changes are seen in the sacroiliac joints bilaterally. Mild degenerative changes are seen in the hips bilaterally. Multiple rounded calcifications are seen throughout the pelvis, most consistent with phleboliths. IMPRESSION: 1. No evidence of acute fracture or dislocation. 2. Postoperative and degenerative changes, as described above. Electronically signed by: BLAYNE REID MD [facility] Provider Note - ED v3on 12-07 Provider Note - ED v3 Provider Note: Chart Review: HISTORY OF PRESENTING ILLNESS CAT is a 85 year old Female and was seen by me at 25-Dec-2020 14:55 for a chief complaint of fall . Other complaints include: pt tripped and fell outside. no obvious deformities skin tear on left elbow. (1). Triage Information: Most recent Vital Sign Value Date Temp (F): 98.7 12-25-2020 14:43 Temp (C): 37 12-25-2020 14:43 Heart Rate (beats/min): 85 12-25-2020 14:43 Respirations (breaths/min): 16 12-25-2020 14:43 SpO2 (%): 96 12-25-2020 14:43 BP Systolic (mm Hg): 147 12-25-2020 14:43 BP Diastolic (mm Hg): 100 12-25-2020 14:43 PAST MEDICAL HISTORY ALLERGIES/INTOLERANCES: Allergy Allergen: Neosporin Type: Drug Reaction: Rash Allergen: Latex Type: Latex Reaction: Rash Allergen: Tape - Adhesive, Bandaids, Paper Type: Environment Reaction: Rash Intolerance Allergen: gabapentin Type: Drug Reaction: Dizziness Allergen: aspirin Type: Drug Reaction: GI Upset Allergen: codeine Type: Drug Reaction: GI Upset Allergen: Dust Type: Environment Reaction: Congestion HEALTH HISTORY: Medical History Name:Sleep apnea Code:G47.30 Name:Arthritis Code:M19.90 Name:Fibromyalgia Code:M79.7 Name:GERD (gastroesophageal reflux disease) Code:K21.9 Name:Hypertension Code:I10 Name:Macular degeneration Code:H35.30 Name:Trigeminal neuralgia Code:G50.0 OUTPATIENT MEDICATIONS: Home Medications Review Status for Reconciliation: Complete Med Status: Patient Currently Takes Medications Drug Name: Flovent HFA 110 mcg/inh inhalation aerosol Instructions: 2 puff(s) inhaled 2 times a day - rinse mouth after use Drug Name: nitroglycerin 0.4 mg sublingual tablet Instructions: 1 tab(s) sublingual every 5 minutes, As Needed Drug Name: omeprazole 40 mg oral delayed release capsule Instructions: 1 cap(s) orally once a day Drug Name: Vitamin D3 Instructions: 1 tab(s) orally once a day Drug Name: Probiotic Formula oral capsule Instructions: 1 cap(s) orally once a day Drug Name: Vitamin B6 100 mg oral tablet Instructions: 1 tab(s) orally once a day Drug Name: Vitamin B12 100 mcg oral tablet Instructions: 1 tab(s) orally once a day Drug Name: Melatonin Instructions: 12 milligram(s) orally once a day (at bedtime) Drug Name: carBAMazepine 200 mg oral tablet Instructions: 1.5 tab(s) orally 3 times a day Drug Name: Centrum Silver Women's oral tablet Instructions: 1 tab(s) orally once a day Drug Name: loratadine 10 mg oral tablet Instructions: 1 tab(s) orally once a day Drug Name: ATORVASTATIN 80 MG TABLET Instructions: 1 tab(s) orally once a day (at bedtime) Drug Name: CHOLESTYRAMINE POWDER Instructions: 4 gram(s) orally once a day Drug Name: LOSARTAN POTASSIUM 100 MG TAB Instructions: 1 tab(s) orally once a day Drug Name: METHADONE HCL 5 MG TABLET Instructions: 1 tab(s) orally 3 times a day, As Needed - for pain Drug Name: METOPROLOL SUCC ER 50 MG TAB Instructions: 1 tab(s) orally once a day (at bedtime) Drug Name: aspirin 81 mg oral delayed release tablet Instructions: 1 tab(s) orally once a day Drug Name: BRILINTA 90 MG TABLET Instructions: 1 tab(s) orally 2 times a day SIGNIFICANT EVENTS: Clinical Events Description:Surgical Procedure Additional Notes:1. R SHORT GAMMA NAIL; Immunizations Description:Tdap Past Medical History Description:Hypertension Description:Myocardial Infarction Description:Hypercholestero lemia Description:CAD Description:Asthma Description:spinal stenosis Past Surgical History Description:Cholecystectomy Description:Appendectomy Description:Hysterectomy Description:Knee replacement-left CRITICAL CARE RESULTS: Recent Lab Results: I have reviewed these laboratory results: Coronavirus 2019, Screen Asymptomatic 25-Dec-2020 20:38:00 ResultValue Fluid Source Nasal, Nasopharyngeal Coronavirus 2019,PCR NOT DETECTED Reference Range: Not Detected . This test has received FDA Emergency Use Authorization (EUA) and has been verified by [facility]. This test is only authorized for the duration of time that circum Complete Blood Count + Differential 25-Dec-2020 20:34:00 ResultValue White Blood Cell Count 11.5 H Red Blood Cell Count 3.87 L HGB 11.7 L HCT 35.8 L MCV 93 MCHC 32.7 PLT 193 RDW-CV 14.4 Neutrophil % 80.6 Lymphocyte % 10.5 Monocyte % 8.4 Eosinophil % 0.1 Basophil % 0.4 Neutrophil Count 9.30 H Lymphocyte Count 1.20 Monocyte Count 1.00 H Eosinophil Count 0.00 Basophil Count 0.00 Basic Metabolic Panel 25-Dec-2020 20:34:00 ResultValue Glucose, Serum 124 H NA 128 L K 4.1 CL 95 L Bicarbonate, Serum 24 Anion Gap, Serum 13 BUN 13 CREAT 0.69 GFR-Non >60 GFR- >60 Calcium, Serum 8.3 L (more content not included)... Normal [facility] RIBS, UNILATERAL, W PA CXR 3 VIEWSon 12-25-2020 RIBS, UNILATERAL, W PA CXR 3 VIEWS Patient Name: CAT CARROLL STUDY: RIBS, UNILATERAL, W PA CXR 3 VIEWS; 12/25/2020 9:09 pm INDICATION: fall . COMPARISON: 04/02/2020. ACCESSION NUMBER(S): [id number] ORDERING CLINICIAN: CARMITA MCCURDY FINDINGS: AP radiograph of the chest and four views of the left ribs were provided. By soft tissue attenuation factors due to patient body habitus. CARDIOMEDIASTINAL SILHOUETTE: Cardiac silhouette is normal size. Mildly tortuous atherosclerotic thoracic aorta redemonstrated. Coronary stent. Calcified left hilar node again seen. LUNGS: Lungs are clear. No pleural effusion or pneumothorax. Redemonstrated eventration of the right hemidiaphragm. ABDOMEN: No remarkable upper abdominal findings. BONES: There is an acute minimally displaced fracture of the lateral left 9th rib. Partially imaged ORIF changes related to chronic fracture of the proximal right humerus. IMPRESSION: No evidence of acute cardiopulmonary process. Acute minimally displaced fracture of the lateral left 9th rib. Electronically signed by: LLOYD MANN MD Normal [facility] Risk Screen - Adult Emergenc yon 12-25-2020 Risk Screen - Adult Emergency Preferred Language: Preferred Language: Preferred Language for Discussing Health Care (patient/designee)Burkin[place] Advanced Directives: Advance Directive/DNRyes Advance Directive typeLiving Will Family Violence Adult: Abuse Screen: Are you or have you been threatened or abused physically, emotionally, or sexually by anyoneno Learning Assessment (Patient): Learning Assessment (Patient): Patient is Able to be Assessed for Learningyes Factors Influencing Readiness to Learninterest in learning Factors that Impact Ability to Learnvisual problems Devices/Methods Used to Communicateglasses Learning Preferencesverbal instruction Cultural Considerationsnone Developmental Considerationsnone Presybeterian Considerationsnone Learning Assessment (Other Learner): Learning Assessment (Other Learner): Other learner availableno Pressure Injury/TB/Substance: Pressure Injury: Pressure Injury Present on Admissionno Do you have a coughno Smoking Statusnever smoker Alcohol Usedenies Drug Usedenies Admission Risk Screen: Significant IndicatorsComplete CAGE: CAGE: Is this an injured patient at a Trauma Center ([facility]/[place]): no Electronic Signatures: Emely Hernandez (MISSY) (Signed 25-Dec-2020 21:33) Authored: Preferred Language, Advanced Directives, Family Violence Adult, Learning Assessment (Patient), Learning Assessment (Other Learner), Pressure Injury/TB/Substance, Pressure Injury, CAGE Last Updated: 25-Dec-2020 21:33 by Emely Hernandez (RN) Normal [facility] TROPONIN Ion 12-25-2020 Troponin I.cardiac [Mass/Vol] 0.03 ng/mL Normal 0.00 - 0.03 [facility] Comment on above: Result Comment: LESS THAN 0.04 NG/ML: NEGATIVE REPEAT TESTING IN THREE TO SIX HOURS IF CLINICALLY INDICATED. 0.04 - 0.5 NG/ML: CONSISTENT WITH POSSIBLE CARDIAC DAMAGE AND POSSIBLE INCREASED CLINICAL RISK. SERIAL MEASUREMENTS MAY HELP ASSESS EXTENT OF MYOCARDIAL DAMAGE. >0.5 NG/ML: CONSISTENT WITH CARDIAC DAMAGE, INCREASED CLINICAL RISK AND MYOCARDIAL INFARCTION. SERIAL MEASUREMENTS MAY HELP ASSESS EXTENT OF MYOCARDIAL DAMAGE. . Note: Troponin I testing is performed using different testing methodology at [facility] than at other [facility]. Direct result comparisons should only be made within the same method. Performed By: #### B #### [facility] [address] [id number] Triage - EDon 12-25-2020 Triage - ED Chart Review: ARRIVAL INFORMATION Mode of Arrival: ambulance Agency Name: [facility] CHIEF COMPLAINT CAT CARROLL is a Female patient with a chief complaint of fall. Other Complaints: pt tripped and fell outside. no obvious deformities skin tear on left elbow. Triage Date/Time: 25-Dec-2020 14:44 CHRISSY: 3V Pain Rating (0-10): 2 = Mild Vital Signs: Temperature: 98.7F ( 37.0C) Blood Pressure: 147/100 Mean: Heart Rate: 85 Respiratory Rate: 16 Pulse Oximetry: 96% Height: 5 feet 4.00 inches. 162.5 CM Weight: 138.8 pounds. Calculated 63.0 kg. Calculated BMI (kg/m2): 23.857 Calculated BSA (m2) 1.69 Rafael Coma Scale: Best Eye Response: (E4) spontaneous Best Motor Response: (M6) obeys commands Best Verbal Response: (V5) oriented Rafael Score: 15 Patient has homicidal thoughts: no Symptoms Are POSITIVE For: abrasion and bruising. Symptoms Are Negative For: deformity and loss of consciousness. Risk Screens Suicide Risk Screen In the Past Month: Have you wished you were or wished you could go to sleep and not wake up no In the Past Month: Have you had any actual thoughts of killing yourself no In Your Lifetime: Have you ever done anything, started to do anything, or prepared to do anything to end your life no Duncan Fall Scale Screening Has the patient fallen before (or is the patient in the ED as a result of a fall) has had a fall Does the patient have an impaired gait does not have impaired gait Is the patient cognitively impaired not cognitively impaired Duncan Fall Scale History of falling (immediate or previous) yes (25) Secondary Diagnosis no (0) Intravenous Therapy/ Heparin/Saline Lock no (0) Gait/Transferring normal/bedrest/wheelchair (0) Ambulatory Aids crutches/walker/cane (15) Mental Status oriented to own ability (0) Duncan Fall Risk Score: 40 Interventions: Duncan Fall Interventions: MODERATE INTERVENTIONS: *Low Interventions Plus: * falls risk band/sticker applied to patient, *yellow non-skid footwear, *instruct to call for assistance before getting out of bed, *bed/chair/bedside commode/toilet alarms, *sensory devices/ambulatory aides available and in reach, *medications reviewed for potential side effects and care planning. TRAVEL HISTORY Travel History Coronavirus Screening: no exposure or symptoms Travel Exposure History: NO travel to International locations in the past 30 days PAIN Pain Scale Used: JANICE Pain Rating (0-10): 2 = Mild Past Medical History: Past Medical History Reviewedyes Electronic Signatures: Jesus Gorman (MISSY) (Signed 25-Dec-2020 14:46) Entered: Risk Screens, Pain, Travel History, Chart Review, Scores, Past Medical History Authored: Quick Triage, Risk Screens, Pain, Travel History, Chart Review, Scores, Past Medical History Last Updated: 25-Dec-2020 14:46 by Jesus Gorman (MISSY) Normal [facility] UA MICROSCOPICon 12-25-2020 BACTERIA 2+ /HPF Abnormal [facility] Comment on above: Performed By: #### U AMIC ####[place] [address] Mucus Ql (Urine sed) 1+ /LPF Normal [facility] Comment on above: Performed By: #### U AMIC ####[address] [address] RBC 2 /HPF Normal 0-5 [facility] Comment on above: Performed By: #### U AMIC ####[address] [address] WBC 1 /HPF Normal 0-5 [facility] Comment on above: Performed By: #### U AMIC ####[address] [address] URINALYSISon 12-25-2020 Appearance (U) HAZY Normal CLEAR [facility] Comment on above: Performed By: #### U A ####[place] [address] Bilirubin Ql (U) Negative Normal NEGATIVE [facility] Comment on above: Performed By: #### U A ####[place] [address] Color (U) Yellow Normal STRAW,YELL OW [facility] Comment on above: Performed By: #### U A ####[place] [address] Glucose Ql (U) Negative Normal NEGATIVE [facility] Comment on above: Performed By: #### U A ####[place] [address] Hemoglobin Ql (U) SMALL(1+) Abnormal NEGATIVE [facility] Comment on above: Performed By: #### U A ####[place] [address] Ketones Ql (U) Negative Normal NEGATIVE [facility] Comment on above: Performed By: #### U A ####[place] [address] Leukocyte esterase Test strip Ql (U) Negative Normal NEGATIVE [facility] Comment on above: Performed By: #### U A ####[place] [address] Nitrite Ql (U) Positive Abnormal NEGATIVE [facility] Comment on above: Performed By: #### U A ####[place] [address] pH (U) 5.0 [pH] Normal 5.0 - 8.0 [facility] Comment on above: Performed By: #### U A ####[place] [address] Protein Ql (U) Negative Normal NEGATIVE [facility] Comment on above: Performed By: #### U A ####[address] [address] Specific gravity (U) [Rel density] 1.013 Normal 1.005 - 1.035 [facility] Comment on above: Performed By: #### U A ####[address] [address] Urobilinogen (U) [Mass/Vol] mg/dL Normal 0.0 - 1.9 [facility] Comment on above: Performed By: #### U A ####[address] [address] WRIST COMPLT MIN 3 VIEWSon 1 WRIST COMPLT MIN 3 VIEWS Patient Name: CAT CARROLL STUDY: WRIST COMPLT; MIN 3 VIEWS; 12/25/2020 3:30 pm INDICATION: fall . COMPARISON: None. ACCESSION NUMBER(S): [id number] ORDERING CLINICIAN: CARMITA MCCURDY TECHNIQUE: 3 views of the left wrist including AP , oblique and lateral projections were obtained. FINDINGS: Healed fracture is seen involving the distal left radial metaphysis. There is no evidence of acute fracture or dislocation identified. Zkow-yd-ofdahzaf degenerative changes are seen in the trapezium 1st metacarpal articulation. IMPRESSION: 1. No evidence of acute fracture or dislocation. 2. Degenerative changes, as described above. Electronically signed by: BLAYNE REID MD Normal [facility] Tobacco Screening.on Fall risk assessment b) One or more falls in the last year [facility] 300 Work Phone: Tobacco Screening. b) No [facility] 300 Work Phone: HIP, UNILATERAL W/PELVIS WHE N PERFORMED 2-3 VIEWSon 07-12-2020 HIP, UNILATERAL W/PELVIS WHEN PERFORMED 2-3 VIEWS Patient Name: CAT CARROLL STUDY: HIP, UNILATERAL W/PELVIS WHEN PERFORMED 2-3 VIEWS; 07/12/2020 2:58 pm INDICATION: RIGHT HIP PAIN. COMPARISON: 06/12/2020 ACCESSION NUMBER(S): [id number] ORDERING CLINICIAN: NENA CABRERA FINDINGS: Pelvis and right hip III views Gamma nail intramedullary linus fixation of proximal right femoral fracture deformity. The hardware is intact. There is normal alignment. Partially visualized hardware in the lower lumbar spine. IMPRESSION: ORIF of right femoral intertrochanteric fracture with intact hardware and unchanged alignment Electronically signed by: LUIS MALAGON MD [facility] Radiologyon 07-12-2020 XR Pelvis and Hip - left 2 Views Normal [facility] 300 Work Phone: Tobacco Screening.on 021 Fall risk assessment b) One or more falls in the last year [facility] 300 Work Phone: Tobacco Screening. b) No [facility] Sports [facility] 300 Work Phone: HIP, UNILATERAL W/PELVIS WHE N PERFORMED 2-3 VIEWSon 06-12-2020 HIP, UNILATERAL W/PELVIS WHEN PERFORMED 2-3 VIEWS Patient Name: CAT CARROLL STUDY: HIP, UNILATERAL W/PELVIS WHEN PERFORMED 2-3 VIEWS; 06/12/2020 3:13 pm INDICATION: right hip fracture. COMPARISON: 04/18/2020 ACCESSION NUMBER(S): [id number] ORDERING CLINICIAN: NENA CABRERA FINDINGS: Pelvis and right hip, three views Gamma nail intramedullary linus fixation of right femoral trochanteric fracture with intact hardware. Postsurgical changes lumbar spine. Moderate degenerative change with joint space narrowing osteophytosis in the hips bilaterally. Diffuse osteopenia IMPRESSION: ORIF of right femoral to trochanteric fracture with intact hardware and no malalignment Electronically signed by: LUIS MALAGON MD [facility] HIP,UNILATERAL W/PELVIS WHEN PERFORMED MIN 4 VIEWSon 05-11-2020 HIP,UNILATERAL W/PELVIS WHEN PERFORMED MIN 4 VIEWS Patient Name: CAT CARROLL STUDY: Single view pelvis. Two views Right hip. INDICATION: hip pain. COMPARISON: 04/18/2020. ACCESSION NUMBER(S): [id number] ORDERING CLINICIAN: NENA CABRERA FINDINGS: Right femoral intertrochanteric fracture fixation with short cephalomedullary nail. Hardware is intact without perihardware fractures or lucencies. No malalignment. Mild bilateral hip joint space narrowing. Lower lumbar spine fusion changes noted. Soft tissues are within normal limits. IMPRESSION: Right femoral intertrochanteric fracture fixation without hardware complication or malalignment. Electronically signed by: SHOLA QUINONES MD [facility] HIP, UNILATERAL W/PELVIS WHE N PERFORMED 2-3 VIEWSon 04-18-2020 HIP, UNILATERAL W/PELVIS WHEN PERFORMED 2-3 VIEWS Patient Name: CAT CARROLL STUDY: HIP, UNILATERAL W/PELVIS WHEN PERFORMED 2-3 VIEWS; Right; 04/18/2020 1:58 pm INDICATION: Post op right hip. COMPARISON: 04/02/2020 ACCESSION NUMBER(S): [id number] ORDERING CLINICIAN: NENA CABRERA FINDINGS: Right hip AP and lateral views and pelvis AP Internal fixation of the comminuted intertrochanteric fracture of the right femur has been performed. There is a small amount of callus formation seen adjacent to the lesser trochanter. The lesser trochanter is displaced medially. Narrowing of the hip joint spaces is seen bilaterally. Degenerative changes are present at the symphysis pubis. The pelvic bones are intact. Posterior spinal fusion is seen at L5 and S1. IMPRESSION: ORIF right intertrochanteric fracture of the femur with compression screw and femoral intramedullary linus. Electronically signed by: MIRNA HARRIS MD [facility] Otheron 04-18-2020 Interpreted by: KARON HARRIS04/18/20 15:37MRN: [id number] Name: CAT CARROLL STUDY:HIP, UNILATERAL W/PELVIS WHEN PERFORMED 2-3 VIEWS; Right; 11:58 pm INDICATION:Post op right hip. COMPARISON:04/02/2020 ORDERING CLINICIAN:NENA CABRERA FINDINGS:Right hip AP and lateral views and pelvis APInternal fixation of the comminuted intertrochanteric fracture of theright femur has been performed. There is a small amount of callusformation seen adjacent to the lesser trochanter. The lessertrochanter is displaced medially.Narrowing of the hip joint spaces is seen bilaterally. Degenerativechanges are present at the symphysis pubis. The pelvic bones areintact.Posterior spinal fusion is seen at L5 and S1. IMPRESSION:ORIF right intertrochanteric fracture of the femur with compressionscrew and femoral intramedullary linus. Electronically signed by: MIRNA HARRIS 04/18/20 15:37 Normal [facility] 300 Work Phone: BASIC METABOLIC PANELon 02-0 Anion gap [Moles/Vol] 12 mmol/L Normal 10 - 20 [facility] 300 Work Phone: Comment on above: Karen KRAFT PHYSICIANOrdering Provider: PROVIDER PENDING [id number] Order Comment: DR. Jeramie MAJANO, ORDERING PHYSICIAN Performed By: #### B MP ####[address] [address] Calcium [Mass/Vol] 8.0 mg/dL Low 8.6 - 10.3 [facility] 300 Work Phone: Comment on above: Karen KRAFT PHYSICIANOrdering Provider: PROVIDER PENDING [id number] Order Comment: DR. Jeramie MAJANO, ORDERING PHYSICIAN Performed By: #### B MP ####[address] [address] Chloride [Moles/Vol] 98 mmol/L Normal 98 - 107 [facility] 300 Work Phone: Comment on above: Karen KRAFT PHYSICIANOrdering Provider: PROVIDER PENDING 13567 Order Comment: DR. Jeramie MAJANO, ORDERING PHYSICIAN Performed By: #### B MP ####[address] [address] Creatinine [Mass/Vol] 0.80 mg/dL Normal 0.50 - 1.05 [facility] 300 Work Phone: Comment on above: Reference Range: 0.5 0 - 1.05 Karen KRAFT PHYSICIANOrdering Provider: PROVIDER PENDING [id number] Order Comment: DR. Jeramie MAJANO, ORDERING PHYSICIAN Performed By: #### B MP ####[address] [address] GFR- AM. >60 Normal >60 [facility] Comment on above: Order Comment: DR. Jeramie MAJANO, ORDERING PHYSICIAN Result Comment: CALC ULATIONS OF ESTIMATED GFR ARE PERFORMED USING THE MDRD STUDY EQUATION FOR THE IDMS-TRACEABLE CREATININE METHODS. CLIN CHEM 2007;53:766-72 Performed By: #### B MP ####[address] [id number] GFR-NON AM. >60 Normal >60 [facility] Comment on above: Order Comment: DR. Jeramie MAJANO, ORDERING PHYSICIAN Performed By: #### B MP ####[address] [id number] Glucose [Mass/Vol] 109 mg/dL High 74 - 99 [facility] 300 Work Phone: Comment on above: Karen KRAFT PHYSICIANOrdering Provider: PROVIDER PENDING Order Comment: DR. Jeramie MAJANO, ORDERING PHYSICIAN Performed By: #### B MP ####[address] [address] HCO3 (Bld) [Moles/Vol] 25 mmol/L Normal 21 - 32 [facility] Comment on above: Order Comment: DR. Jeramie MAJANO, ORDERING PHYSICIAN Performed By: #### B MP ####[address] [address] Potassium [Moles/Vol] 4.1 mmol/L Normal 3.5 - 5.3 [facility] 300 Work Phone: Comment on above: Karen KRAFT PHYSICIANOrdering Provider: PROVIDER PENDING Order Comment: DR. Jeramie MAJANO, ORDERING PHYSICIAN Performed By: #### B MP ####[address] [address] Sodium [Moles/Vol] 131 mmol/L Low 136 - 145 [facility] [place] 300 Work Phone: Comment on above: Karen KRAFT PHYSICIANOrdering Provider: PROVIDER PENDING [id number] Order Comment: DR. Jeramie MAJANO, ORDERING PHYSICIAN Performed By: #### B MP ####[address] [address] Urea nitrogen [Mass/Vol] 12 mg/dL Normal 6 - 23 [facility] 300 Work Phone: Comment on above: Karen KRAFT PHYSICIANOrdering Provider: PROVIDER PENDING 21097 Order Comment: DR. Jeramie MAJANO, ORDERING PHYSICIAN Performed By: #### B MP ####[address] [address] Metabolic Panelon 04-12-2020 CO2 [Moles/Vol] 25 mmol/L 21 - 32 [facility] 300 Work Phone: Comment on above: Karen KRAFT PHYSICIANOrdering Provider: PROVIDER PENDING 65657 Otheron 04-12-2020 >60 >60 [facility] 300 Work Phone: Comment on above: CALCULATIONS OF DANIELLE MATED GFR ARE PERFORMED USING THE MDRD STUDY EQUATION FOR THE IDMS-TRACEABLE CREATININE METHODS. CLIN CHEM 2007;53:766-72 Karen KRAFT PHYSICIANOrdering Provider: PROVIDER PENDING 17081 BASIC METABOLIC PANELon 03-11 Anion gap [Moles/Vol] 16 mmol/L Normal 10 - 20 [facility] Comment on above: Performed By: #### B MP #### [address] [address] Calcium [Mass/Vol] 7.8 mg/dL Low 8.6 - 10.3 [facility] Comment on above: Performed By: #### B MP #### [address] [address] Chloride [Moles/Vol] 89 mmol/L Low 98 - 107 [facility] Comment on above: Performed By: #### B MP #### [address] [address] Creatinine [Mass/Vol] 0.53 mg/dL Normal 0.50 - 1.05 [facility] Comment on above: Performed By: #### B MP #### [address] [address] GFR- AM. >60 Normal >60 [facility] Comment on above: Result Comment: CALC ULATIONS OF ESTIMATED GFR ARE PERFORMED USING THE MDRD STUDY EQUATION FOR THE IDMS-TRACEABLE CREATININE METHODS. CLIN CHEM 2007;53:766-72 Performed By: #### B MP #### [address] [address] GFR-NON AM. >60 Normal >60 [facility] Comment on above: Performed By: #### B MP #### [address] [address] Glucose [Mass/Vol] 137 mg/dL High 74 - 99 [facility] Comment on above: Performed By: #### B MP #### [address] [address] HCO3 (Bld) [Moles/Vol] 22 mmol/L Normal 21 - 32 [facility] Comment on above: Performed By: #### B MP #### [address] [address] Potassium [Moles/Vol] 4.1 mmol/L Normal 3.5 - 5.3 [facility] Comment on above: Performed By: #### B MP #### [address] [address] Sodium [Moles/Vol] 123 mmol/L Low 136 - 145 [facility] Comment on above: Performed By: #### B MP #### [address] [address] Urea nitrogen [Mass/Vol] 8 mg/dL Normal 6 - 23 [facility] Comment on above: Performed By: #### B MP #### [address] [address] Discharge [id number] Discharge Profile2 Discharge Orders: Anticipated Discharge Date: Anticipated Discharge [id number] Problem List: Additional Dx: Hyponatremia: Catalog Name: Hypo-osmolality and hyponatremia Intertrochanteric fracture of right femur: Catalog Name: Displaced intertrochanteric fracture of right femur, initial encounter for closed fracture Hospital Providers: Provider RoleProvider Name Lion Monet Michael Activity: activity as tolerated Toe-touch weightbearing on the right. Weight-bearing Instructions: toe-touch weight-bearing right leg. Diet: Dietregular Labs 1: Lab Test(s)Electrolytes Date To Be Drawn5-7 days Call Results [facility] Additional Orders: Additional Instructions STOP: 1. Brilinta NEW: 1. Enteric-coated aspirin 325 mg 1 p.o. twice daily for 30 days 2. Phoenix 5-325 mg 1 every 4 hours as needed for moderate pain #20 with no refills 3. Sodium chloride tablet 1 g 1 p.o. twice daily for 10 days HOLD BABY ASPIRIN WHILE TAKING THE ADULT ASPIRIN Recommend electrolytes to check sodium level in 5 to 7 days Leave dressing in place for 7 days then okay to remove Continue toe-touch weightbearing on the right lower extremity Follow-up with Dr. Cabrera in 2 weeks for evaluation and staple removal Follow-up with PCP in 5 to 7 days 2 prescription given 1 for a standard walker and the other 1 for a bedside commode Home Care Orders: Face to Face Certification: Home Care Services Needed: yes Home Care Agency: Other (with phone number) [facility] Provider to Follow After Discharge: PCP Skilled Disciplines Ordered: RN/UTILITY BILL COLLECTOR, PT, OT Face to Face Encounter Completed: yes Date of Encounter: 07-Apr-2020 Medical Necessity for Homecare (based on clinical findings): Status post short gamma nail right hip 04/04/2020 Homebound Status: homebound Homebound Due to:: Patient is temporarily homebound after short gamma nail right hip 04/04/2020 and will need PT and OT due to muscle weakness and painful ambulation. She is toe-touch weightbearing on her right lower extremity for now. Leave dressing on for 7 days then remove Will need follow-up with orthopedics in 2 weeks for staple removal and reevaluation Face to Face Completed and Home Care Orders Reviewed: I certify that this patient is under my care. I have reviewed the information included in the face to face and certify that the home care services ordered are medically necessary for this patient. Home Care Services: Home Care Skilled Serviceassessment Provider FINAL REVIEW of Orders: Final Review: Final Review of Medication Reconciliation and Orders Completedby Physician Reviewing ProviderLion Paulson DO at 07-Apr-2020 10:14:09 Appointments: Follow-Up Appointment 01: Physician/Dept/ServiceDr. Cabrera in 2 weeks; Gisell Desai in 5 to 7 days Commentswe will call and schedule these appointments at the patients request. Electronic Signatures: Ashley Brasher (ADJUNCT TRAINER) (Signed 07-Apr-2020 10:35) Authored: Discharge Orders, Appointments Lion Paulson (DO) (Signed 07-Apr-2020 10:14) Authored: Discharge Orders, Home Care Orders, Provider FINAL REVIEW of Orders, Appointments, Gold Form - Billiard Player Summary Last Updated: 07-Apr-2020 10:35 by Ashley Brasher (ADJUNCT TRAINER) Normal [facility] HCTon 04-07-2020 Hematocrit (Bld) [Volume fraction] 27.2 % Low 36.0 - 46.0 [facility] Comment on above: Performed By: #### H CT ####[address] [address] HGBon 04-07-2020 Hemoglobin (Bld) [Mass/Vol] 9.0 g/dL Low 12.0 - 16.0 [facility] Comment on above: Performed By: #### B MP #### [address] [address] Hematocriton 04-07-2020 Hematocrit (Bld) [Volume fraction] 27.2 % below low threshold See Below [facility] 300 Work Phone: Comment on above: Reference Range: 36. 0 - 46.0 Ordering Provider: Madie PAULSON [id number] Hemoglobinon 04-07-2020 Hemoglobin (Bld) [Mass/Vol] 9.0 g/dL below low threshold See Below [facility] 300 Work Phone: Comment on above: Reference Range: 12. 0 - 16.0 Ordering Provider: Madie PAULSON [address] Metabolic Panelon 04-07-2020 Anion gap [Moles/Vol] 16 mmol/L 10 - 20 [facility] 300 Work Phone: Comment on above: Ordering Provider: A ARIELLA Power81 Calcium [Mass/Vol] 7.8 mg/dL below low threshold 8.6 - 10.3 [facility] 300 Work Phone: Comment on above: Ordering Provider: A ARIELLA Power81 Chloride [Moles/Vol] 89 mmol/L below low threshold 98 - 107 [facility] 300 Work Phone: Comment on above: Ordering Provider: A AIRELLA Foster CO2 [Moles/Vol] 22 mmol/L 21 - 32 [facility] 300 Work Phone: Comment on above: Ordering Provider: A ARIELLA Power81 Creatinine [Mass/Vol] 0.53 mg/dL See Below [facility] 300 Work Phone: Comment on above: Reference Range: 0.5 0 - 1.05 Ordering Provider: A ARIELLA Power81 Glucose [Mass/Vol] 137 mg/dL above high threshold 74 - 99 [facility] 300 Work Phone: Comment on above: Ordering Provider: A ARIELLA Power81 Potassium [Moles/Vol] 4.1 mmol/L 3.5 - 5.3 [facility] 300 Work Phone: Comment on above: Ordering Provider: A ARIELLA RIVERACKER [address] Sodium [Moles/Vol] 123 mmol/L below low threshold 136 - 145 [facility] 300 Work Phone: Comment on above: Ordering Provider: A ARIELLA Power81 Urea nitrogen [Mass/Vol] 8 mg/dL 6 - 23 [facility] 300 Work Phone: Comment on above: Ordering Provider: A ARIELLA ROMEROER [address] Otheron 04-07-2020 >60 >60 [facility] 300 Work Phone: Comment on above: CALCULATIONS OF DANIELLE MATED GFR ARE PERFORMED USING THE MDRD STUDY EQUATION FOR THE IDMS-TRACEABLE CREATININE METHODS. CLIN CHEM 2007;53:766-72 Ordering Provider: Madie OLIVIAMARYANA BRUNA [address] BASIC METABOLIC PANELon - Anion gap [Moles/Vol] 13 mmol/L Normal 10 - 20 [facility] Comment on above: Performed By: #### B MP #### [address] [address] Sodium [Moles/Vol] 127 mmol/L Low 136 - 145 [facility] Comment on above: Performed By: #### B MP #### [address] [address] Calcium [Mass/Vol] 7.2 mg/dL Low 8.6 - 10.3 [facility] Comment on above: Performed By: #### B MP #### [address] [address] Chloride [Moles/Vol] 93 mmol/L Low 98 - 107 [facility] Comment on above: Performed By: #### B MP #### [address] [address] Creatinine [Mass/Vol] 0.51 mg/dL Normal 0.50 - 1.05 [facility] Comment on above: Performed By: #### B MP #### [address] [address] GFR- AM. >60 Normal >60 [facility] Comment on above: Result Comment: CALC ULATIONS OF ESTIMATED GFR ARE PERFORMED USING THE MDRD STUDY EQUATION FOR THE IDMS-TRACEABLE CREATININE METHODS. CLIN CHEM 2007;53:766-72 Performed By: #### B MP #### [address] [address] GFR-NON AM. >60 Normal >60 [facility] Comment on above: Performed By: #### B MP #### [address] [address] Glucose [Mass/Vol] 128 mg/dL High 74 - 99 [facility] Comment on above: Performed By: #### B MP #### [address] [address] HCO3 (Bld) [Moles/Vol] 25 mmol/L Normal 21 - 32 [facility] Comment on above: Performed By: #### B MP #### [address] [address] Potassium [Moles/Vol] 3.5 mmol/L Normal 3.5 - 5.3 [facility] Comment on above: Performed By: #### B MP #### [address] [address] Urea nitrogen [Mass/Vol] 9 mg/dL Normal 6 - 23 [facility] Comment on above: Performed By: #### B MP #### [address] [address] Daily Progress Note-Medicine on 04-06-2020 Daily Progress Note-Medicine Service: Medicine Review of Systems: Review of Systems: Constitutional: NEGATIVE: Fever, Chills ENMT: NEGATIVE: Nasal Discharge, Nasal Congestion, Ear Pain, Mouth Pain, Throat Pain Respiratory: NEGATIVE: Dry Cough, Productive Cough, Hemoptysis, Wheezing, Shortness of Breath Cardiac: NEGATIVE: Chest Pain, Dyspnea on Exertion, Orthopnea, Palpitations, Syncope Gastrointestinal: NEGATIVE: Nausea, Vomiting, Diarrhea, Constipation, Abdominal Pain Genitourinary: NEGATIVE: Discharge, Dysuria, Flank Pain, Frequency, Hematuria Musculoskeletal: NEGATIVE: Decreased ROM, Pain, Swelling, Stiffness, Weakness Neurological: NEGATIVE: Dizziness, Confusion, Headache, Syncope Psychiatric: NEGATIVE: Mood Changes, Anxiety Subjective Data: CAT CARROLL is a 84 year old Female who is Hospital Day # 5 and POD #2 for 1. R SHORT GAMMA NAIL; Additional Information: Patient doing well voicing no complaints She did have a little bit of pain and discomfort with physical therapy. Doing well with the pain medication Objective Data: Objective Information: T PRBPSpO2 [id number]/7495% Date/Time04/06 15: 15: 15: 15: 15:06 Range(36.4C - 36.9C ) (84 - 104 ) (16 - 18 ) (131 - 150 )/ (65 - 74 ) (93% - 95% ) Highest temp of 36.9 C was recorded at 04/06 7:35 Pain reported at 04/06 15:06: 3 = Mild Physical Exam by System: Constitutional: Awake and alert; oriented x3 no apparent distress or respiratory distress Head/Neck: Neck supple with no palpable lymphadenopathy, bruits or masses; trachea midline Respiratory/Thorax: Clear to auscultation bilaterally Cardiovascular: Regular rate and rhythm; normal S1-S2 with no murmur; 1+ pulses and no edema Gastrointestinal: Soft, nontender, nondistended, positive bowel sounds Neurological: Nonfocal; cranial nerves II through XII appear intact Psychological: Pleasant but flat Recent Lab Results: Results: I have reviewed these laboratory results: Basic Metabolic Panel 06-Apr-2020 05:23:00 ResultValue Glucose, Serum 128 H NA 127 L K 3.5 CL 93 L Bicarbonate, Serum 25 Anion Gap, Serum 13 BUN 9 CREAT 0.51 GFR-Non >60 GFR- >60 Calcium, Serum 7.2 L Hemoglobin 06-Apr-2020 05:23:00 ResultValue HGB 8.3 L Hematocrit 06-Apr-2020 05:23:00 ResultValue HCT 24.2 L Assessment and Plan: Additional Dx: Hyponatremia: Entered Date: 05-Apr-2020 15:54 Intertrochanteric fracture of right femur: Entered Date: 04-Apr-2020 16:04 Code Status: Code StatusFull Code Assessment: 84-year-old female admitted for an acute right intertrochanteric hip fracture status post fall. She is status post gamma nail this afternoon. Patient has a history of coronary artery disease status post stent August 2018 (on Brilinta), acute blood loss anemia which is stable, chronic hypertension, hyperlipidemia, GERD and untreated sleep apnea. PLAN: 1. Continue PT and pain control per orthopedic recommendations 2. I will get a fluid restrictor 1500 mL daily 3. Repeat BMP and NH in a.m.; her hemoglobin has dropped 4. Continue Xarelto per orthopedics 5. I wrote a prescription for a standard walker and social services technician as it 6. Continue beta-fransisca therapy and statin therapy for her CAD 7. She is on metoprolol and losartan for hypertension 8. Discharge planning to home tomorrow with [facility] with RN and PT Electronic Signatures: Lion Paulson () (Signed 06-Apr-2020 16:59) Authored: Service, Review of Systems, Subjective Data, Objective Data, Assessment and Plan, Note Completion Last Updated: 06-Apr-2020 16:59 by Lion Paulson () [facility] Daily Progress Note-Orthopae dicson 04-06-2020 Daily Progress Note-Orthopaedics Service: Orthopaedics Subjective Data: CAT CARROLL is a 84 year old Female who is Hospital Day # 5. Additional Information: Patient resting comfortably in bed. Pain is very well controlled. She denies any numbness and tingling no fevers chills or shortness of breath. She was unable to sleep very well she did request Tylenol PM but I forgot to order at the previous evening. Objective Data: Objective Information: T PRBPSpO2 [id number]/7493% Date/Time04/06 7: 7: 7: 7: 7:35 Range(36.4C - 36.9C ) (92 - 104 ) (16 - 18 ) (138 - 149 )/ (65 - 74 ) (93% - 95% ) Highest temp of 36.9 C was recorded at 04/06 7:35 Pain reported at 04/06 7:35: 0 = None Alert and oriented x3 no acute distress resting comfortably in the bed Nonlabored breathing Right hip Dressings are clean dry and intact very mild strikethrough that is not progressed at the center of each dressing Gross intact motor and sensory throughout the right lower extremity including dorsiflexion plantarflexion EHL Calf is soft and compressible Recent Lab Results: Results: CBC: 04/06/2020 05:23 \ Hgb / \ 8.3 L / WBC Plt / Hct \ / 24.2 L \ BMP: 04/06/2020 05:23 NA+ Cl- BUN / 127 L 93 L 9 / ----- Glucose 128 H K+ HCO3- Creat \ 3.5 25 0.51 \ Calcium : 7.2 L Anion Gap : 13 Assessment and Plan: Code Status: Code StatusFull Code Assessment: Assessment-status post right hip short cephalomedullary nail intertrochanteric hip fracture Plan-continue physical therapy -Continue toe-touch weightbearing on the right lower extremity -Leave dressing in place for 7 days then okay to remove -Plan for removal of sadaf 14 days -Outpatient follow-up -Patient is not feeling fully safe to return home today. Daughter is coming to evaluate her and how she is doing with physical therapy -As needed pain control -DVT prophylaxis for 30 days Electronic Signatures: Nena Cabrera) (Signed 06-Apr-2020 08:28) Authored: Service, Subjective Data, Objective Data, Assessment and Plan, Note Completion Last Updated: 06-Apr-2020 08:28 by eNna Cabrera () Normal [facility] HCTon 04-06-2020 Hematocrit (Bld) [Volume fraction] 24.2 % Low 36.0 - 46.0 [facility] Comment on above: Performed By: #### H CT ####[address] [address] HGBon 04-06-2020 Hemoglobin (Bld) [Mass/Vol] 8.3 g/dL Low 12.0 - 16.0 [facility] Comment on above: Performed By: #### B MP #### [address] [address] Hematocriton 04-06-2020 Hematocrit (Bld) [Volume fraction] 24.2 % below low threshold See Below [facility] 300 Work Phone: Comment on above: Reference Range: 36. 0 - 46.0 Ordering Provider: Madie PAULSON [address] Hemoglobinon 04-06-2020 Hemoglobin (Bld) [Mass/Vol] 8.3 g/dL below low threshold See Below [facility] 300 Work Phone: Comment on above: Reference Range: 12. 0 - 16.0 Ordering Provider: A ARIELLA PAULSON [address] Metabolic Panelon 04-06-2020 Anion gap [Moles/Vol] 13 mmol/L 10 - 20 [facility] 300 Work Phone: Comment on above: Ordering Provider: A ARIELLA Power81 Calcium [Mass/Vol] 7.2 mg/dL below low threshold 8.6 - 10.3 [facility] 300 Work Phone: Comment on above: Ordering Provider: A ARIELLA Foster Chloride [Moles/Vol] 93 mmol/L below low threshold 98 - 107 [facility] 300 Work Phone: Comment on above: Ordering Provider: A ARIELLA Foster CO2 [Moles/Vol] 25 mmol/L 21 - 32 [facility] 300 Work Phone: Comment on above: Ordering Provider: A ARIELLA Power81 Creatinine [Mass/Vol] 0.51 mg/dL See Below [facility] 300 Work Phone: Comment on above: Reference Range: 0.5 0 - 1.05 Ordering Provider: A ARIELLA Power81 Glucose [Mass/Vol] 128 mg/dL above high threshold 74 - 99 [facility] 300 Work Phone: Comment on above: Ordering Provider: A ARIELLA Power81 Potassium [Moles/Vol] 3.5 mmol/L 3.5 - 5.3 [facility] 300 Work Phone: Comment on above: Ordering Provider: A ARIELLA Foster Sodium [Moles/Vol] 127 mmol/L below low threshold 136 - 145 [facility] 300 Work Phone: Comment on above: Ordering Provider: A ARIELLA Power81 Urea nitrogen [Mass/Vol] 9 mg/dL 6 - 23 [facility] 300 Work Phone: Comment on above: Ordering Provider: Madie PAULSON [address] Otheron 04-06-2020 >60 >60 [facility] 300 Work Phone: Comment on above: CALCULATIONS OF DANIELLE MATED GFR ARE PERFORMED USING THE MDRD STUDY EQUATION FOR THE IDMS-TRACEABLE CREATININE METHODS. CLIN CHEM 2007;53:766-89 Ordering Provider: A ARIELLA PAULSON [address] BASIC METABOLIC PANELon 03-10 Anion gap [Moles/Vol] 11 mmol/L Normal 10 - 20 [facility] Comment on above: Performed By: #### B MP ####[address] [address] Calcium [Mass/Vol] 7.2 mg/dL Low 8.6 - 10.3 [facility] Comment on above: Performed By: #### B MP ####[address] [address] Chloride [Moles/Vol] 95 mmol/L Low 98 - 107 [facility] Comment on above: Performed By: #### B MP ####[address] [address] Creatinine [Mass/Vol] 0.65 mg/dL Normal 0.50 - 1.05 [facility] Comment on above: Performed By: #### B MP ####[address] [address] GFR- AM. >60 Normal >60 [facility] Comment on above: Result Comment: CALC ULATIONS OF ESTIMATED GFR ARE PERFORMED USING THE MDRD STUDY EQUATION FOR THE IDMS-TRACEABLE CREATININE METHODS. CLIN CHEM 2007;53:766-72 Performed By: #### B MP ####[address] [address] GFR-NON AM. >60 Normal >60 [facility] Comment on above: Performed By: #### B MP ####[address] [address] Glucose [Mass/Vol] 141 mg/dL High 74 - 99 [facility] Comment on above: Performed By: #### B MP ####[place] [id number] HCO3 (Bld) [Moles/Vol] 26 mmol/L Normal 21 - 32 [facility] Comment on above: Performed By: #### B MP ####[place] [id number] Potassium [Moles/Vol] 4.2 mmol/L Normal 3.5 - 5.3 [facility] Comment on above: Performed By: #### B MP ####[place] [id number] Sodium [Moles/Vol] 128 mmol/L Low 136 - 145 [facility] Comment on above: Performed By: #### B MP ####[place] [id number] Urea nitrogen [Mass/Vol] 8 mg/dL Normal 6 - 23 [facility] Comment on above: Performed By: #### B MP ####[place] [address] CBCon 04-05-2020 Erythrocyte distribution width (RBC) [Ratio] 13.4 % Normal 11.5 - 14.5 [facility] Comment on above: Performed By: #### B MP #### [place] [id number] Hematocrit (Bld) [Volume fraction] 24.3 % Low 36.0 - 46.0 [facility] Comment on above: Performed By: #### B MP #### [place] [id number] Hemoglobin (Bld) [Mass/Vol] 8.4 g/dL Low 12.0 - 16.0 [facility] Comment on above: Performed By: #### B MP #### [place] [id number] MCHC (RBC) [Mass/Vol] 34.4 g/dL Normal 32.0 - 36.0 [facility] Comment on above: Performed By: #### B MP #### [place] [id number] MCV (RBC) [Entitic vol] 90 fL Normal 80 - 100 [facility] Comment on above: Performed By: #### B MP #### [address] [address] Platelets (Bld) [#/Vol] 171 10*3/uL Normal 150 - 450 [facility] Comment on above: Performed By: #### B MP #### [address] [address] RBC 2.70 x10E12/L Low 4.00 - 5.20 [facility] Comment on above: Performed By: #### B MP #### [address] [address] WBC (Bld) [#/Vol] 9.0 10*3/uL Normal 4.4 - 11.3 [facility] Comment on above: Performed By: #### B MP #### [address] [address] Daily Progress Note-Medicine on 04-05-2020 Daily Progress Note-Medicine Service: Medicine Review of Systems: Review of Systems: Constitutional: NEGATIVE: Fever, Chills ENMT: NEGATIVE: Nasal Discharge, Nasal Congestion, Ear Pain, Mouth Pain, Throat Pain Respiratory: NEGATIVE: Dry Cough, Productive Cough, Hemoptysis, Wheezing, Shortness of Breath Cardiac: NEGATIVE: Chest Pain, Dyspnea on Exertion, Orthopnea, Palpitations, Syncope Gastrointestinal: NEGATIVE: Nausea, Vomiting, Diarrhea, Constipation, Abdominal Pain Genitourinary: NEGATIVE: Discharge, Dysuria, Flank Pain, Frequency, Hematuria Musculoskeletal: NEGATIVE: Decreased ROM, Pain, Swelling, Stiffness, Weakness Neurological: NEGATIVE: Dizziness, Confusion, Headache, Syncope Psychiatric: NEGATIVE: Mood Changes, Anxiety Subjective Data: CAT CARROLL is a 84 year old Female who is Hospital Day # 4. Additional Information: Doing well voicing no complaints; pain stable and she did okay with PT Objective Data: Objective Information: T PRBPSpO2 [id number]/7893% Date/Time04/05 8: 8: 8: 8: 8:00 Range(36.3C - 36.8C ) (95 - 101 ) (18 - 18 ) (116 - 156 )/ (69 - 78 ) (92% - 93% ) Pain reported at 04/05 10:30: sleeping Physical Exam by System: Constitutional: Awake and alert; oriented x3 with no apparent distress or respiratory distress Head/Neck: Neck supple no palpable lymphadenopathy, bruits or masses; trachea midline Respiratory/Thorax: Clear to auscultation bilaterally no wheezes or rhonchi Cardiovascular: Regular rate and rhythm; normal S1-S2 with no murmur; 1+ pulses and no pitting edema Gastrointestinal: Soft, nontender, nondistended, positive bowel sounds Neurological: Nonfocal; cranial nerves II through XII are intact Psychological: Pleasant but flat affect Recent Lab Results: Results: I have reviewed these laboratory results: Complete Blood Count 05-Apr-2020 06:02:00 ResultValue White Blood Cell Count 9.0 Red Blood Cell Count 2.70 L HGB 8.4 L HCT 24.3 L MCV 90 MCHC 34.4 PLT 171 RDW-CV 13.4 Basic Metabolic Panel 05-Apr-2020 06:02:00 ResultValue Glucose, Serum 141 H NA 128 L K 4.2 CL 95 L Bicarbonate, Serum 26 Anion Gap, Serum 11 BUN 8 CREAT 0.65 GFR-Non >60 GFR- >60 Calcium, Serum 7.2 L Assessment and Plan: Additional Dx: Hyponatremia: Entered Date: 05-Apr-2020 15:54 Intertrochanteric fracture of right femur: Entered Date: 04-Apr-2020 16:04 Code Status: Code StatusFull Code Assessment: 84-year-old female admitted for an acute right intertrochanteric hip fracture status post fall. She is status post gamma nail this afternoon. Patient has a history of coronary artery disease status post stent August 2018 (on Brilinta), acute blood loss anemia which is stable, chronic hypertension, hyperlipidemia, GERD and untreated sleep apnea. PLAN: 1. Continue physical therapy per orthopedic recommendations 2. Pain control as needed 3. We will check labs in a.m. and watch her sodium 4. She is on Xarelto per orthopedics 5. director of housing and energy services for discharge planning; looks like she is going to go home with home health care may be the next 24 to 48 hours 6. Maintain statin and beta-fransisca therapy for her known CAD and metoprolol and losartan for her hypertension history 7. May not need Brilinta at discharge since her stents were performed August 2018 8. Full CODE STATUS Electronic Signatures: Lion Paulson (DO) (Signed 05-Apr-2020 15:56) Authored: Service, Review of Systems, Subjective Data, Objective Data, Assessment and Plan, Note Completion Last Updated: 05-Apr-2020 15:56 by Lion Paulson (DO) [facility] Daily Progress Note-Orthopae dicson 04-05-2020 Daily Progress Note-Orthopaedics Service: Orthopaedics Subjective Data: CAT CARROLL is a 84 year old Female who is Hospital Day # 4. Additional Information: Patient resting comfortably in the bed, Mild pain in the right hip, denies any numbness or tingling, tolerating diet, denies SOB or chest pain or fevers Objective Data: Objective Information: T PRBPSpO2 [id number]/6595% Date/Time04/05 20: 20: 20: 20: 20:25 Range(36.4C - 36.8C ) (92 - 104 ) (18 - 18 ) (116 - 148 )/ (65 - 78 ) (92% - 95% ) Pain reported at 04/05 21:15: sleeping Alert and oriented x3 no acute distress resting comfortably just had a breathing treatment Dressings clean dry and intact on the RLE intact motor and sensory throughout the right leg calf is soft and compressible Recent Lab Results: Results: CBC: 04/05/2020 06:02 \ Hgb / \ 8.4 L / WBC Plt 9.0 171 / Hct \ / 24.3 L \ RBC: 2.70 L MCV: 90 BMP: 04/05/2020 06:02 NA+ Cl- BUN / 128 L 95 L 8 / ----- Glucose 141 H K+ HCO3- Creat \ 4.2 26 0.65 \ Calcium : 7.2 L Anion Gap : 11 Assessment and Plan: Code Status: Code StatusFull Code Assessment: Assessment - POD 1 s/p right hip nail Plan - Continue pain control PRN -DVT ppx -PT/OT toe touch weight bearing -encourage diet -keep dressing in place for 7 days then ok to remove -will need sadaf out in 14 days at follow up in office Electronic Signatures: Nena Cabrera () (Signed 05-Apr-2020 21:34) Authored: Service, Subjective Data, Objective Data, Assessment and Plan, Note Completion Last Updated: 05-Apr-2020 21:34 by Nena Cabrera (DO) [facility] Hematologyon 04-05-2020 Hematocrit (Bld) [Volume fraction] 24.3 % below low threshold See Below [facility] 300 Work Phone: Comment on above: Reference Range: 36. 0 - 46.0 Ordering Provider: A [facility] BRUNA [address] Hemoglobin (Bld) [Mass/Vol] 8.4 g/dL below low threshold See Below [facility] 300 Work Phone: Comment on above: Reference Range: 12. 0 - 16.0 Ordering Provider: A [facility] BRUNA [address] MCV (RBC) [Entitic vol] 90 fL 80 - 100 [facility] 300 Work Phone: Comment on above: Ordering Provider: A OLIVIAVindiCKER 37571 Platelets (Bld) [#/Vol] 171 {x10E9/L} 150 - 450 [facility] 300 Work Phone: Comment on above: Ordering Provider: A BringMeThatER 24119 RBC (Bld) [#/Vol] 2.70 {x10E12/L} below low threshold See Below [facility] 300 Work Phone: Comment on above: Reference Range: 4.0 0 - 5.20 Ordering Provider: A OLIVIAVindiCKER 54425 WBC (Bld) [#/Vol] 9.0 {x10E9/L} 4.4 - 11.3 [facility] [place] [facility] Work Phone: Comment on above: Ordering Provider: A ARIELLA RIVERACKER 225[address] Metabolic Panelon 04-05-2020 Anion gap [Moles/Vol] 11 mmol/L 10 - 20 [facility] 300 Work Phone: Comment on above: Ordering Provider: A ARIELLA RIVERAVICTORINO Power81 Calcium [Mass/Vol] 7.2 mg/dL below low threshold 8.6 - 10.3 [facility] 300 Work Phone: Comment on above: Ordering Provider: A ARIELLA RIVERAVICTORINO [employer] Chloride [Moles/Vol] 95 mmol/L below low threshold 98 - 107 [facility] 300 Work Phone: Comment on above: Ordering Provider: A ARIELLA RIVERAVICTORINO [employer]81 CO2 [Moles/Vol] 26 mmol/L 21 - 32 [facility] 300 Work Phone: Comment on above: Ordering Provider: A ARIELLA RIVERACKER 25121 Creatinine [Mass/Vol] 0.65 mg/dL See Below [facility] 300 Work Phone: Comment on above: Reference Range: 0.5 0 - 1.05 Ordering Provider: A ARIELLA RIVERAVICTORINO [employer]81 Glucose [Mass/Vol] 141 mg/dL above high threshold 74 - 99 [facility] 300 Work Phone: Comment on above: Ordering Provider: A ARIELLA RIVERAVICTORINO [employer]81 Potassium [Moles/Vol] 4.2 mmol/L 3.5 - 5.3 [facility] 300 Work Phone: Comment on above: Ordering Provider: A ARIELLA RIVERAVICTORINO [employer]81 Sodium [Moles/Vol] 128 mmol/L below low threshold 136 - 145 [facility] 300 Work Phone: Comment on above: Ordering Provider: A ARIELLA RIVERAVICTORINO [employer]81 Urea nitrogen [Mass/Vol] 8 mg/dL 6 - 23 [facility] 300 Work Phone: Comment on above: Ordering Provider: Madie ARIELLA RIVERACKER [id number] Otheron 04-05-2020 Erythrocyte distribution width (RBC) [Ratio] 13.4 % See Below [facility] 300 Work Phone: Comment on above: Reference Range: 11. 5 - 14.5 Ordering Provider: Madie ARIELLA Foster MCHC (RBC) [Mass/Vol] 34.4 g/dL See Below [facility] 300 Work Phone: Comment on above: Reference Range: 32. 0 - 36.0 Ordering Provider: Madie ARIELLA RIVERACKJANNET Foster >60 >60 [facility] 300 Work Phone: Comment on above: Ordering Provider: A ARIELLA Foster CALCULATIONS OF DANIELLE MATED GFR ARE PERFORMED USING THE MDRD STUDY EQUATION FOR THE IDMS-TRACEABLE CREATININE METHODS. CLIN CHEM 2007;53:766-72 BASIC METABOLIC PANELon 03-10 Anion gap [Moles/Vol] 10 mmol/L Normal 10 - 20 [facility] Comment on above: Performed By: #### B MP #### [address] [address] Calcium [Mass/Vol] 7.4 mg/dL Low 8.6 - 10.3 [facility] Comment on above: Performed By: #### B MP #### [address] [address] Chloride [Moles/Vol] 97 mmol/L Low 98 - 107 [facility] Comment on above: Performed By: #### B MP #### [address] [address] Creatinine [Mass/Vol] 0.59 mg/dL Normal 0.50 - 1.05 [facility] Comment on above: Performed By: #### B MP #### [address] [address] GFR- AM. >60 Normal >60 [facility] Comment on above: Result Comment: CALC ULATIONS OF ESTIMATED GFR ARE PERFORMED USING THE MDRD STUDY EQUATION FOR THE IDMS-TRACEABLE CREATININE METHODS. CLIN CHEM 2007;53:766-72 Performed By: #### B MP #### [place] [id number] GFR-NON AM. >60 Normal >60 [facility] Comment on above: Performed By: #### B MP #### [place] [id number] Glucose [Mass/Vol] 120 mg/dL High 74 - 99 [facility] Comment on above: Performed By: #### B MP #### [place] [id number] HCO3 (Bld) [Moles/Vol] 26 mmol/L Normal 21 - 32 [facility] Comment on above: Performed By: #### B MP #### [place] [id number] Potassium [Moles/Vol] 4.0 mmol/L Normal 3.5 - 5.3 [facility] Comment on above: Performed By: #### B MP #### [place] [id number] Sodium [Moles/Vol] 129 mmol/L Low 136 - 145 [facility] Comment on above: Performed By: #### B MP #### [place] [id number] Urea nitrogen [Mass/Vol] 10 mg/dL Normal 6 - 23 [facility] Comment on above: Performed By: #### B MP #### [address] [address] Daily Progress Note-Medicine on 04-04-2020 Daily Progress Note-Medicine Service: Medicine Review of Systems: Review of Systems: Constitutional: NEGATIVE: Fever, Chills ENMT: NEGATIVE: Nasal Discharge, Nasal Congestion, Ear Pain, Mouth Pain, Throat Pain Cardiac: NEGATIVE: Chest Pain, Dyspnea on Exertion, Orthopnea, Palpitations, Syncope Gastrointestinal: NEGATIVE: Nausea, Vomiting, Diarrhea, Constipation, Abdominal Pain Genitourinary: NEGATIVE: Discharge, Dysuria, Flank Pain, Frequency, Hematuria Musculoskeletal: NEGATIVE: Decreased ROM, Pain, Swelling, Stiffness, Weakness Neurological: NEGATIVE: Dizziness, Confusion, Headache, Syncope Psychiatric: NEGATIVE: Mood Changes, Anxiety Subjective Data: CAT CARROLL is a 84 year old Female who is Hospital Day # 3. Additional Information: S/P gamma nail right hip this afternoon Voices no complaints - no pain post-operatively, no chest pains and no shortness of breath Objective Data: Objective Information: T PRBPSpO2 [id number]/8592% Date/Time04/04 7: 7: 7: 7: 7:30 Range(36.5C - 36.6C ) (88 - 91 ) (16 - 18 ) (100 - 152 )/ (58 - 85 ) (92% - 93% ) Pain reported at 04/04 11:40: 8 = Severe Physical Exam by System: Constitutional: Awake and alert; oriented x3 with no apparent distress or respiratory distress Head/Neck: Neck is supple with no palpable lymphadenopathy, bruits or masses; trachea midline Respiratory/Thorax: Clear to auscultation bilaterally with no wheezes or rhonchi noted Cardiovascular: Regular rate and rhythm; normal S1-S2 with no murmur; 1+ pulses and no pitting edema bilaterally Gastrointestinal: Soft, nontender, nondistended, positive bowel sounds Neurological: Nonfocal; cranial nerves II through XII appear intact Psychological: Pleasant but flat affect Recent Lab Results: Results: I have reviewed these laboratory results: Basic Metabolic Panel 04-Apr-2020 05:25:00 ResultValue Glucose, Serum 120 H NA 129 L K 4.0 CL 97 L Bicarbonate, Serum 26 Anion Gap, Serum 10 BUN 10 CREAT 0.59 GFR-Non >60 GFR- >60 Calcium, Serum 7.4 L Hemoglobin 04-Apr-2020 05:25:00 ResultValue HGB 9.8 L Assessment and Plan: Additional Dx: Intertrochanteric fracture of right femur: Entered Date: 04-Apr-2020 16:04 Code Status: Code StatusFull Code Assessment: 84-year-old female admitted for an acute right intertrochanteric hip fracture status post fall. She is status post gamma nail this afternoon. Patient has a history of coronary artery disease status post stent August 2018 (on Brilinta), acute blood loss anemia which is stable, chronic hypertension, hyperlipidemia, GERD and untreated sleep apnea. PLAN: 1. Pain control as needed 2. Physical therapy per orthopedic recommendations 3. Check labs in a.m. 4. Xarelto to be started tomorrow 05 April 5. We will continue with hold her aspirin and Brilinta; may not need Brilinta at discharge since her stent was last performed August 2018 6. director of housing and energy services for discharge planning 7. Maintain her statin and beta-fransisca therapy for known CAD 8. Maintain metoprolol and losartan for hypertension history 9. SCDs for DVT prophylaxis and Xarelto will be started tomorrow 10. Full CODE STATUS Electronic Signatures: Lion Paulson () (Signed 04-Apr-2020 16:25) Authored: Service, Review of Systems, Subjective Data, Objective Data, Assessment and Plan, Note Completion Last Updated: 04-Apr-2020 16:25 by Lion Paulson () [facility] Daily Progress Note-Orthopae dicson 04-04-2020 Daily Progress Note-Orthopaedics Service: Orthopaedics Subjective Data: CAT CARROLL is a 84 year old Female who is Hospital Day # 3. Additional Information: Patient seen and examined this morning resting comfortably in the bed no acute distress does complain of pain in the right hip. Was able to get some sleep last night. Is very worried and concerned about proceeding with surgical intervention. She denies any numbness and tingling down the right leg Objective Data: Objective Information: T PRBPSpO2 [id number]/8592% Date/Time04/04 7: 7: 7: 7: 7:30 Range(36.5C - 36.6C ) (88 - 91 ) (16 - 18 ) (100 - 152 )/ (58 - 85 ) (92% - 93% ) Pain reported at 04/03 20:00: 9 = Severe Alert and oriented x3 no acute distress Nonlabored breathing resting comfortably Right lower extremity skin is intact over the right hip short external rotated leg positive heel strike positive logroll grossly intact sensation throughout the right lower extremity intact dorsiflexion plantarflexion EHL with a soft compressible calf Recent Lab Results: Results: CBC: 04/04/2020 05:25 \ Hgb / \ 9.8 L / WBC Plt / Hct \ BMP: 04/04/2020 05:25 NA+ Cl- BUN / 129 L 97 L 10 / ----- Glucose 120 H K+ HCO3- Creat \ 4.0 26 0.59 \ Calcium : 7.4 L Anion Gap : 10 Assessment and Plan: Code Status: Code StatusFull Code Advance Care Planning: Advance Care Planning: Patient didn't wish to or was unable to provide advance care plan Assessment: Assessment-right intertrochanteric hip fracture Plan-unfortunately the patient's antiplatelet therapy does preclude spinal anesthesia but I do think waiting a prolonged period of time to administer spinal anesthesia is more detrimental to the patient's overall health. I would like to proceed with surgical intervention today. -N.p.o. -Hold anticoagulation -As needed pain control -Nonweightbearing bedrest right lower extremity -Plan for surgery today Electronic Signatures: Nena Cabrera) (Signed 04-Apr-2020 09:08) Authored: Service, Subjective Data, Objective Data, Assessment and Plan, Note Completion Last Updated: 04-Apr-2020 09:08 by Nena Cabrera) [facility] FLUOROSCOPY, UP TO 1 HRon FLUOROSCOPY, UP TO 1 HR Patient Name: CAT CARROLL STUDY: FLUOROSCOPY, UP TO 1 HR; 04/04/2020 1:30 pm INDICATION: R HIP FX. COMPARISON: 04/02/2020 ACCESSION NUMBER(S): [id number] ORDERING CLINICIAN: NENA CABRERA TECHNIQUE: Fluoroscopic support was in the OR, for hip surgery. Fluoroscopic time was 53 seconds. FINDINGS: Fixation of the displaced intertrochanteric fracture has been performed, with a compression screw, passing along the length of the femoral neck. A vertical linus is seen, in the proximal femoral diaphysis, transfixed with a distal transverse screw. IMPRESSION: Fixation of intertrochanteric fracture. Spot films obtained during the operative procedure. Electronically signed by: MIRNA HARRIS MD Normal [facility] HGBon 04-04-2020 Hemoglobin (Bld) [Mass/Vol] 9.8 g/dL Low 12.0 - 16.0 [facility] Comment on above: Performed By: #### H GB #### [facility] [address] [place] [address] Hemoglobinon 04-04-2020 Hemoglobin (Bld) [Mass/Vol] 9.8 g/dL below low threshold See Below [facility] [place] [facility] Work Phone: Comment on above: Reference Range: 12. 0 - 16.0 Ordering Provider: Ashley Shoemaker Metabolic Panelon 04-04-2020 Anion gap [Moles/Vol] 10 mmol/L 10 - 20 [facility] 300 Work Phone: Comment on above: Ordering Provider: Ashley Shoemaker Calcium [Mass/Vol] 7.4 mg/dL below low threshold 8.6 - 10.3 [facility] 300 Work Phone: Comment on above: Ordering Provider: Ashley Shoemaker Chloride [Moles/Vol] 97 mmol/L below low threshold 98 - 107 [facility] 300 Work Phone: Comment on above: Ordering Provider: Ashley Shoemaker CO2 [Moles/Vol] 26 mmol/L 21 - 32 [facility] 300 Work Phone: Comment on above: Ordering Provider: Ashley Shoemaker Creatinine [Mass/Vol] 0.59 mg/dL See Below [facility] 300 Work Phone: Comment on above: Reference Range: 0.5 0 - 1.05 Ordering Provider: Ashley Shoemaker Glucose [Mass/Vol] 120 mg/dL above high threshold 74 - 99 [facility] 300 Work Phone: Comment on above: Ordering Provider: J KEN MARTIN [address] Potassium [Moles/Vol] 4.0 mmol/L 3.5 - 5.3 [facility] 300 Work Phone: Comment on above: Ordering Provider: Ashley MARTIN [address] Sodium [Moles/Vol] 129 mmol/L below low threshold 136 - 145 [facility] 300 Work Phone: Comment on above: Ordering Provider: Ashley MARTIN [address] Urea nitrogen [Mass/Vol] 10 mg/dL 6 - 23 [facility] 300 Work Phone: Comment on above: Ordering Provider: Ashley Malhotra18 Otheron 04-04-2020 Fluoroscopy duration Interpreted by: MIRNA HARRIS04/05/20 10:47MRN: [id number] Name: CAT CARROLL STUDY:FLUOROSCOPY, UP TO 1 HR; 04/04/2020 1:30 pm INDICATION:R HIP FX. COMPARISON:04/02/2020 ORDERING CLINICIAN:NENA CABRERA TECHNIQUE:Fluoroscopic support was in the OR, for hip surgery. Fluoroscopictime was 53 seconds. FINDINGS:Fixation of the displaced intertrochanteric fracture has beenperformed, with a compression screw, passing along the length of thefemoral neck. A vertical linus is seen, in the proximal femoraldiaphysis, transfixed with a distal transverse screw. IMPRESSION:Fixation of intertrochanteric fracture. Spot films obtained duringthe operative procedure.Electronically signed by: MIRNA HARRIS 04/05/20 10:47 Normal [facility] 300 Work Phone: >60 >60 [facility] 300 Work Phone: Comment on above: Ordering Provider: Ashley MARTIN [id number] CALCULATIONS OF DANIELLE MATED GFR ARE PERFORMED USING THE MDRD STUDY EQUATION FOR THE IDMS-TRACEABLE CREATININE METHODS. CLIN CHEM 2007;53:766-72 Preop Checkliston 04-04-2020 Preop Checklist Preop Checklist: Preop Checklist: Arrival [id number] Arrival Time11:40 Procedure Typeright hip hemiarthroplasty NPO [id number] 23:30 ID Band Onyes Allergy Bandyes Consent Signedyes H&P Completeyes Anesthesia Assessment Completedyes SCD's Appliedyes KWASI Hose Appliednot ordered Denturesleft in patient room Prostheticsnot applicable Hearing Aidsnot applicable Valuables Securedleft in patient room Glasses / Contactsnot applicable Cardiovascular Assessment: Apicalregular Pedal Pulsespalpable Extremitieswarm, well perfused Respiratory Assessment: Respirationsunlabored regular Air Exchangeequal, good Breath Soundsclear Neurological Assessment: Level of Consciousnessalert Mobilitymoves all extremities Able to Express Selfyes Age Appropriateyes Emotional Statuscalm Preop Education: Surgical Site Infection Preventionyes Pain Scales and Managementyes Language / Communication: Language / CommunicationEnglish Electronic Signatures: Teresa Andrea (MISSY) (Signed 04-Apr-2020 11:52) Authored: Preop Checklist Last Updated: 04-Apr-2020 11:52 by Teresa Andrea (MISSY) Normal [facility] BASIC METABOLIC PANELon 03-10 Anion gap [Moles/Vol] 10 mmol/L Normal 10 - 20 [facility] Comment on above: Performed By: #### B MP #### [address] [address] Calcium [Mass/Vol] 7.4 mg/dL Low 8.6 - 10.3 [facility] Comment on above: Performed By: #### B MP #### [address] [address] Chloride [Moles/Vol] 100 mmol/L Normal 98 - 107 [facility] Comment on above: Performed By: #### B MP #### [address] [address] Creatinine [Mass/Vol] 0.72 mg/dL Normal 0.50 - 1.05 [facility] Comment on above: Performed By: #### B MP #### [address] [address] GFR- AM. >60 Normal >60 [facility] Comment on above: Result Comment: CALC ULATIONS OF ESTIMATED GFR ARE PERFORMED USING THE MDRD STUDY EQUATION FOR THE IDMS-TRACEABLE CREATININE METHODS. CLIN CHEM 2007;53:766-72 Performed By: #### B MP #### [address] [address] GFR-NON AM. >60 Normal >60 [facility] Comment on above: Performed By: #### B MP #### [address] [address] Glucose [Mass/Vol] 104 mg/dL High 74 - 99 [facility] Comment on above: Performed By: #### B MP #### [address] [address] HCO3 (Bld) [Moles/Vol] 27 mmol/L Normal 21 - 32 [facility] Comment on above: Performed By: #### B MP #### [address] [address] Potassium [Moles/Vol] 4.5 mmol/L Normal 3.5 - 5.3 [facility] Comment on above: Performed By: #### B MP #### [address] [address] Sodium [Moles/Vol] 132 mmol/L Low 136 - 145 [facility] Comment on above: Performed By: #### B MP #### [address] [address] Urea nitrogen [Mass/Vol] 13 mg/dL Normal 6 - 23 [facility] Comment on above: Performed By: #### B MP #### [address] [address] CBCon 04-03-2020 Erythrocyte distribution width (RBC) [Ratio] 13.7 % Normal 11.5 - 14.5 [facility] Comment on above: Performed By: #### C BC ####[address] [address] Hematocrit (Bld) [Volume fraction] 30.6 % Low 36.0 - 46.0 [facility] Comment on above: Performed By: #### C BC ####[address] [address] Hemoglobin (Bld) [Mass/Vol] 10.1 g/dL Low 12.0 - 16.0 [facility] Comment on above: Performed By: #### C BC ####[address] [address] MCHC (RBC) [Mass/Vol] 33.1 g/dL Normal 32.0 - 36.0 [facility] Comment on above: Performed By: #### C BC ####[address] [address] MCV (RBC) [Entitic vol] 92 fL Normal 80 - 100 [facility] Comment on above: Performed By: #### C BC ####[address] [address] Platelets (Bld) [#/Vol] 200 10*3/uL Normal 150 - 450 [facility] Comment on above: Performed By: #### C BC ####[place] [id number] RBC 3.35 x10E12/L Low 4.00 - 5.20 [facility] Comment on above: Performed By: #### C BC ####[address] [address] WBC (Bld) [#/Vol] 7.8 10*3/uL Normal 4.4 - 11.3 [facility] Comment on above: Performed By: #### C BC ####[address] [address] Clinical Event Noteon 2020 Clinical Event Note Clinical Event: Clinical Event Note: DetailsPatient still complaining from severe pain. She had received over the past 3 hours 1 tablet of the Phoenix and 4 mg of the IV morphine. Nurse asking if I can switch to Dilaudid 1 mg IV as needed. Given the patient's underlying age and given that she is an opioid clark, I do not feel comfortable giving any more opioids for her at the time being. I will give Toradol 15 mg IV 1 dose. I will also give trazodone 50 mg to help her sleep. Apply ice packs. Electronic Signatures: Carson Bergman) (Signed 03-Apr-2020 00:18) Authored: Clinical Event Note Last Updated: 03-Apr-2020 00:18 by Carson Bergman) [facility] Consult-Orthopaedicson 04-03 Consult-Orthopaedic s Service: Service: Orthopaedics Consult: Consult requested by (Attending Name): Joe Martin Reason: Dr. Cabrera aware for right hip fracture History of Present Illness: HPI: CAT CARROLL is a 84 year old Female who presented to the emergency department after sustaining a fall at home. Patient was carrying in a bundle of packages into her house when she tripped on the entryway to her home. She fell onto her right side. At the time of the fall she developed significant right hip pain. She was unable to stand and ambulate she called 911 and was brought to the hospital for further evaluation. In the emergency department radiographs of the pelvis did demonstrate a right intertrochanteric hip fracture. She was admitted for further care. At the time of exam patient was resting comfortably in her bed. She was in no acute distress. She was complaining primarily of right hip pain as well as right sided thoracic pain. She denies any numbness and tingling down the right lower extremity. Past medical history significant for coronary artery disease hyperlipidemia hypertension GERD Past surgical history significant for previous spinal fusion hysterectomy total knee arthroplasty Past Medical/Surgical History: Medical History: Trigeminal neuralgia: Macular degeneration: Hypertension: GERD (gastroesophageal reflux disease): Fibromyalgia: Arthritis: Sleep apnea: Surg History: Previous back surgery: History of elbow surgery: History of total knee replacement: History of knee surgery: History of hysterectomy: History of esophagogastroduodenoscopy (EGD): History of dilation and curettage: History of colonoscopy: History of cholecystectomy: Cataract: History of kidney surgery: Review Family/Social History and ROS: Family History: Family History: reviewed and not pertinent to presenting problem Social History: Social History: denies smoking, alcohol and drug use Constitutional: NEGATIVE: Fever, Chills, Anorexia, Weight Loss, Malaise Eyes: NEGATIVE: Blurry Vision, Drainage, Diploplia, Redness, Vision Loss/ Change ENMT: NEGATIVE: Nasal Discharge, Nasal Congestion, Ear Pain, Mouth Pain, Throat Pain Respiratory: NEGATIVE: Dry Cough, Productive Cough, Hemoptysis, Wheezing, Shortness of Breath Cardiac: NEGATIVE: Chest Pain, Dyspnea on Exertion, Orthopnea, Palpitations, Syncope Gastrointestinal: NEGATIVE: Nausea, Vomiting, Diarrhea, Constipation, Abdominal Pain Genitourinary: NEGATIVE: Discharge, Dysuria, Flank Pain, Frequency, Hematuria Musculoskeletal: NEGATIVE: Decreased ROM, Pain, Swelling, Stiffness, Weakness Neurological: NEGATIVE: Dizziness, Confusion, Headache, Seizures, Syncope Psychiatric: NEGATIVE: Mood Changes, Anxiety, Hallucinations, Sleep Changes, Suicidal Ideas Skin: NEGATIVE: Mass, Pain, Pruritus, Rash, Ulcer Endocrine: NEGATIVE: Heat Intolerance, Cold Intolerance, Sweat, Polyuria, Thirst Hematologic/Lymph: NEGATIVE: Anemia, Bruising, Easy Bleeding, Night Sweats, Petechiae Allergic/Immunologic: NEGATIVE: Anaphylaxis, Itchy/ Teary Eyes, Itching, Sneezing, Swelling Breast: NEGATIVE: Pain, Mass, Discharge, Nipple Itching, Gynecomastia Allergies: Neosporin: Rash Latex: Rash Tape - Adhesive, Bandaids, Paper: Rash Intolerances: gabapentin: Dizziness aspirin: GI Upset codeine: GI Upset Dust: Congestion Objective: Objective Information: T PRBPSpO2 [id number]/7092% Date/Time04/03 7: 7: 7: 8: 7:24 Range(36C - 36.7C ) (72 - 88 ) (16 - 20 ) (95 - 179 )/ (55 - 74 ) (92% - 97% ) Pain reported at 04/03 12:45: 8 = Severe Alert and oriented x3 no acute distress resting in the bed Normocephalic and atraumatic EOM intact moist mucous membranes supple neck no JVD Nonlabored breathing warm well perfused extremities nondistended abdomen Right hip tender to palpation on the lateral aspect of the hip positive heel strike positive logroll short and externally rotated Grossly intact motor and dorsiflexion plantarflexion EHL grossly intact sensation light touch throughout the right lower extremity Calf is soft and compressible Recent Lab Results: Results: I have reviewed these laboratory results: Complete Blood Count 03-Apr-2020 05:24:00 ResultValue White Blood Cell Count 7.8 Red Blood Cell Count 3.35 L HGB 10.1 L HCT 30.6 L MCV 92 MCHC 33.1 PLT 200 RDW-CV 13.7 Basic Metabolic Panel Trending View [id number] 05:24:00 02-Apr-2020 18:11:00 Glucose, Rxpap003 H 120 H NA132 L 132 L K4.5 3.2 L CL100 97 L Bicarbonate, Serum27 25 Anion Gap, Serum10 13 BUN13 10 CREAT0.72 0.65 GFR-Non >60 >60 GFR->60 >60 Calcium, Serum7.4 L 7.8 L Complete Blood Count + Differential 02-Apr-2020 18:11:00 ResultValue White Blood Cell Count 15.5 H Red Blood Cell Count 4.20 H (more content not included)... Normal [facility] Daily Progress Note-Medicine on 04-03-2020 Daily Progress Note-Medicine Service: Medicine Subjective Data: CAT CARROLL is a 84 year old Female who is Hospital Day # 2. She currently reports a 7/10 pain in the right hip. After her morphine dose, the pain is generally a 2/10. She denies any chest pain, shortness of breath, or headache. She denies any fevers, chills, or sweats. She does feel hungry and denies abdominal pain. Objective Data: Objective Information: T PRBPSpO2 [id number]% Date/Time04/03 7: 7: 7: 8: 7:24 Range(36C - 36.7C ) (72 - 88 ) (16 - 20 ) (95 - 179 )/ (55 - 74 ) (92% - 97% ) Pain reported at 04/03 8:40: 6 = Moderate Physical Exam Narrative: Physical Exam: She was in bed at a 30 degree angle to the horizontal with no distress or tachypnea. Her lungs were clear but she had decreased breath sounds bilaterally. Her heart was regular with a controlled rate and no murmurs, rubs, or gallops. She had trace pretibial edema bilaterally with venous stasis changes. Her abdomen was soft and nontender with normal bowel sounds. The patient's urine in the collection container for the external Ghotra is concentrated. She had mild tenderness over the right hip with intact skin and no erythema. There was no hematoma over the right hip. She had intact strength with dorsi and plantar flexion bilaterally. She had a flat affect but was interactive when engaged. Medication: Medications: Continuous Medications ----- 1. Sodium Chloride 0.9% Infusion: 1000 mL IntraVenous Scheduled Medications ----- 1. Atorvastatin: 80 mg Oral Daily 2. Budesonide 0.5 mg/ 2 mL Nebulizer Soln: 2 mL Inhalation Every 12 Hours 3. carBAMazepine: 200 mg Oral 3 Times a Day 4. Cholecalciferol (Vitamin D3): 1000 International Unit(s) Oral Daily 5. Cholestyramine Light: 4 gram(s) Oral Daily 6. DULoxetine: 60 mg Oral Daily 7. Losartan: 25 mg Oral Daily 8. Metoprolol Tartrate: 25 mg Oral 2 Times a Day 9. Multivitamin with Minerals: 1 tablet(s) Oral Daily 10. Pantoprazole: 40 mg Oral Daily PRN Medications ----- 1. Acetaminophen: 650 mg Oral Every 4 Hours 2. Acetaminophen: 650 mg Oral Every 4 Hours 3. HYDROcodone 5 mg - Acetaminophen 325 m tablet(s) Oral Every 4 Hours 4. Magnesium Hydroxide Oral Liquid CONCENTRATE: 10 mL Oral Every 24 Hours 5. Morphine Injectable: 4 mg IntraVenous Push Every 4 Hours 6. Ondansetron Injectable: 4 mg IntraVenous Push Every 4 Hours Recent Lab Results: Results: I have reviewed these laboratory results: Complete Blood Count 03-Apr-2020 05:24:00 ResultValue White Blood Cell Count 7.8 Red Blood Cell Count 3.35 L HGB 10.1 L HCT 30.6 L MCV 92 MCHC 33.1 PLT 200 RDW-CV 13.7 Basic Metabolic Panel 03-Apr-2020 05:24:00 ResultValue Glucose, Serum 104 H NA 132 L K 4.5 CL 100 Bicarbonate, Serum 27 Anion Gap, Serum 10 BUN 13 CREAT 0.72 GFR-Non >60 GFR- >60 Calcium, Serum 7.4 L Assessment and Plan: Comorbidities: Comorbidity: anemia Anemia: acute blood loss anemia Code Status: Code StatusFull Code Assessment: 84-year-old with an acute, right intertrochanteric hip fracture status post a fall in the setting of coronary artery disease status post stent in August 2018 on Brilinta, acute blood loss anemia, chronic hypertension, hyperlipidemia, GERD, resolved hypokalemia, and untreated sleep apnea. - A decision was made to delay surgical repair given the Brilinta use-that is an ongoing discussion with anesthesia. - As a result, I will start the patient on heparin for DVT prophylaxis and discontinue the night prior to surgery. - I will continue her oral and IV pain medications-she seems adequately controlled on the current regimen. - I will continue to hold her aspirin and Brilinta in anticipation of surgery. - She will likely discontinue the Brilinta altogether as her last stent was in August 2018. - I will continue to monitor her BMP with her electrolyte issues and hyponatremia. - I did advance her diet as she is not scheduled for surgery. - She had resolution of her hyperglycemia with management of her acute pain. - She also had resolution of her leukocytosis-there is no need for antibiotics. - Her hemoglobin relates to the traumatic nature of the hip fracture-I will monitor that daily. - I will continue her statin and beta-fransisca with her known coronary disease. - I will continue her metoprolol and losartan for her chronic hypertension-her blood pressure is in the 120s/70s. - Outpatient assessment of her untreated sleep apnea would be appropriate-she is intolerant of CPAP. - She has SCDs and heparin ordered for DVT prophylaxis. - She is a full code. She remains appropriate for inpatient status while waiting for management of her right hip fracture. She has chosen to pursue (more content not included)... Normal [facility] Discharge Planning Wrot7ft 0 04-03-2020 Discharge Planning Note2 Discharge Planning: Needs Prior to Discharge (ex. Home Care Orders, IV/O2 prescriptions) None Discharge Barriers (ex. 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 Waiting on response. Mila Hernandez, Care Navigation Specialist 04-03-2020 5587 Response received from following fpc facilities: [facility] accepted. Mila Hernandez, Care Navigation Specialist Care Transitions Note: 04-04-[address] follow up for d/c planning. Per discussion in Care Huddle, Pt will have surgery today. CT will follow up post-op to clarify d/c needs 04-05-2020. CT to update Pt that [facility] is able to accept Pt if SNF is needed. CT will obtain skilled HHC provider choice, if Pt is able to return home with family assistance and skilled HHC. RON Dobson, АННА Care Transitions Note: 04-05-[address] follow up post op for d/c planning. EPHRAIM met with Pt to review d/c plans. Pt strongly prefers to return home with her daughter's support and skilled HHC. Pt indicates she would like to use [facility] if skilled HHC ordered. Pt also will require a walker. EPHRAIM left notice for for script. Pt would like to use [facility] for the walker. EPHRAIM also initiated the referral to [facility] via [employer]--[facility] able to accept as ordered. EPHRAIM notes, however, that Pt required assist X2 with transfers today during PT eval. EPHRAIM discussed short term rehab at [facility], if Pt continues to require Assist X2 with transfers. Pt recognizes that this may be necessary, but hopes her daughter can assist with the transfers. EPHRAIM contacted daughter, Trinidad [phone], to discuss same. Trinidad is available to stay with Pt as long as necessary. She states her neighbor might be able to assist at times as well. EPHRAIM requested Trinidad visit Pt 04-06-2020 while PT works with Pt. After watching PT session, Pt and daughter can decide if Pt's care is manageable at home. EPHRAIM assured Pt and family of continued assistance with d/c planning. [facility] is prepared to accept Pt if needed. They will require a second covid test within 24 hours of d/c. updated on same. Plan: Pt prefers home with daughter assist and skilled HHC vs [facility] if 2 assist is needed for transfers. CT to follow. RON Dobson, АННА 04/06/20 @ 402pm Care Transitions: Pt was discussed during Care Rounds today- anticipate discharge tomorrow. alley worker met with pt and her daughter following her afternoon therapy session. Pt wishes to return home with daughter's support and [facility]. She will also need a standard walker and wishes to use [facility] for the same. A prescription for a walker was obtained and faxed to [facility]- anticipate delivery of the same today. Updates called both to [facility] and [place]. alley worker reviewed the IM with pt with no questions/concerns. Care Transitions will continue to follow. KEITH Lin 04/07/20, Care transition note @1138. Reviewed patient in care rounds this morning and she will be discharged home today. SW met with patient and confirmed her d/c plans of returning home and will have [facility]. patient also said that her daughter will be there with her. SW called Valerie with [facility] and notified her that patient will be discharged home. SW did send d/c documents thru [employer] and also faxed to their office. Patient to return home today with family assist and [facility]. Annita Marrufo MSW,BODY SHOP TECHNICIAN 04/09/2020 Care Transitions follow up. SW was informed that a prescription for a bedside commode was written after other discharge arrangements were made. [facility] (Valerie) is agreeable to assisting Pt with arranging same on 04/09/2020. This type of equipment was not available on the weekend unless Pt purchased it privately from a store like [employer] or [employer]. [facility] declines [facility] offer to send them the original script. KEITH Lindquist Assessment: Discharge Planning Assessment [id number] Primary Contact Name and NumberGEORBEBETO ARCHER [phone](1) Stated Reason for AdmissionRIGHT HIP FRACTURE FELL IN KITCHEN(1) [facility]rived [facility] (1) [facility] Lives Withalone(1) Living Arrangementsmobile home(1) Prior Level of FunctioningIndependent with ADLs and IADLs Resource/Environmental Concernsnone(1) Anticipated Transition [place](1) Services Anticipated at Transitionnone; fpc; rehabilitation services Anticipated Changes Related to Illnessinability to care for self Anticipated Discharge Facility/Level of Care NeedsTBD, Home with HHC vs SNF Discharge Planning CommentsPer discussion in Care Huddle, Pt will require OR later this week for R (more content not included)... Normal [facility] Hematologyon 04-03-2020 Hematocrit (Bld) [Volume fraction] 30.6 % below low threshold See Below [facility] 300 Work Phone: Comment on above: Reference Range: 36. 0 - 46.0 Ordering Provider: Ashley Shoemaker Hemoglobin (Bld) [Mass/Vol] 10.1 g/dL below low threshold See Below [facility] Work Phone: Comment on above: Reference Range: 12. 0 - 16.0 Ordering Provider: Ashley Shoemaker MCV (RBC) [Entitic vol] 92 fL 80 - 100 [facility] Work Phone: Comment on above: Ordering Provider: Ashley Shoemaker Platelets (Bld) [#/Vol] 200 {x10E9/L} 150 - 450 [facility] Work Phone: Comment on above: Ordering Provider: Ashley Shoemaker RBC (Bld) [#/Vol] 3.35 {x10E12/L} below low threshold See Below [facility] 300 Work Phone: Comment on above: Reference Range: 4.0 0 - 5.20 Ordering Provider: Ashley Shoemaker WBC (Bld) [#/Vol] 7.8 {x10E9/L} 4.4 - 11.3 [facility] 300 Work Phone: Comment on above: Ordering Provider: Ashley Shoemaker Metabolic Panelon 04-03-2020 Anion gap [Moles/Vol] 10 mmol/L 10 - 20 [facility] Work Phone: Comment on above: Ordering Provider: Ashley Shoemaker Calcium [Mass/Vol] 7.4 mg/dL below low threshold 8.6 - 10.3 [facility] Work Phone: Comment on above: Ordering Provider: Ashley Shoemaker Chloride [Moles/Vol] 100 mmol/L 98 - 107 [facility] 300 Work Phone: Comment on above: Ordering Provider: Ashley Shoemaker CO2 [Moles/Vol] 27 mmol/L 21 - 32 [facility] 300 Work Phone: Comment on above: Ordering Provider: Ashley Shoemaker Creatinine [Mass/Vol] 0.72 mg/dL See Below [facility] 300 Work Phone: Comment on above: Reference Range: 0.5 0 - 1.05 Ordering Provider: Ashley Shoemaker Glucose [Mass/Vol] 104 mg/dL above high threshold 74 - 99 [facility] Work Phone: Comment on above: Ordering Provider: Ashley Shoemaker Potassium [Moles/Vol] 4.5 mmol/L 3.5 - 5.3 [facility] 300 Work Phone: Comment on above: Ordering Provider: Ashley Shoemaker Sodium [Moles/Vol] 132 mmol/L below low threshold 136 - 145 [facility] 300 Work Phone: Comment on above: Ordering Provider: Ashley Shoemaker Urea nitrogen [Mass/Vol] 13 mg/dL 6 - 23 [facility] Work Phone: Comment on above: Ordering Provider: Ashley Shoemaker Otheron 04-03-2020 Erythrocyte distribution width (RBC) [Ratio] 13.7 % See Below [facility] 300 Work Phone: Comment on above: Reference Range: 11. 5 - 14.5 Ordering Provider: Ashley Shoemaker MCHC (RBC) [Mass/Vol] 33.1 g/dL See Below [facility] 300 Work Phone: Comment on above: Reference Range: 32. 0 - 36.0 Ordering Provider: Ashley MARTIN [id number] >60 >60 [facility] 300 Work Phone: Comment on above: Ordering Provider: Ashley MARTIN [id number] CALCULATIONS OF DANIELLE MATED GFR ARE PERFORMED USING THE MDRD STUDY EQUATION FOR THE IDMS-TRACEABLE CREATININE METHODS. CLIN CHEM 2007;53:766-72 Admission Risk Screen - Adul ton 04-02-2020 Admission Risk Screen - Adult Allergies: Allergies: Neosporin: Rash Latex: Rash Tape - Adhesive, Bandaids, Paper: Rash Intolerances: gabapentin: Dizziness aspirin: GI Upset codeine: GI Upset Dust: Congestion Patient Verification: New W ID Band Applied in my Departmentno Type of ID Patient is WearingW wristband, but not applied here Patient Transferred from Other Facility ([facility], [facility],etc)no Patient Identity Verified Bypatient ID Band FULL Name, include Middle, spelling matches patient's ID used for verificationyes ID Band Matches Patient ID used for Verficationyes ID Band MRN Matches EMR MRNyes Visitor Restriction: Coronavirus Visitor Restriction: Reasonable restrictions to in-person visitors will be observed due to current coronavirus pandemic. Travel History: COVID-19 Screening Completedno exposure or symptoms(1) Advance Directive: Advance Directive/DNRyes (2) Advance Directive typeLiving Will, Durable Power of Security Field Supervisor for Healthcare Living Will AvailabilityLiving Will not available now Living Will [id number] Durable Power of Security Field Supervisor AvailabilityDPOA not available now Durable Power of Security Field Supervisor [id number] Durable Power of Security Field Supervisor contact (name and number)ESVIN ROMERO [phone] [place] Fall Screen: History of falling (immediate or previous)yes (25) Secondary Diagnosisyes (15) Intravenous Therapy/ Heparin/Saline Lockyes (20) Gait/Transferringimpaired (20) Ambulatory Aidsnone/bedrest/nurse assist (0) Mental Statusoriented to own ability (0) Score: Low risk (<25). Moderate risk (25-44). High risk (>44).80 [place] InterventionsHIGH INTERVENTIONS *Low and Moderate Interventions Plus: * supervised toileting at all times Family Violence Screen: Are you or have you been threatened or abused physically, emotionally, or sexually by anyoneno Has anyone ever threatened to hurt your family or your petsno Does anyone try to keep you from having/contacting other friends or doing things outside your homeno Do you feel UNSAFE going back to the place where you are livingno Do you feel anyone has exploited or taken advantage of you financially or of your personal propertyno Clinical assessment: Are there any apparent signs of injuries/behaviors that could be related to abuse/neglectno Social Service Consult for abuse/neglect needed this visitno Functional Screen: Functional Screen: In the recent/past 2-4 weeks, patient or family have noticedno issues that require a speech/language consult at this time AM-PAC- Basic Mobility/Daily Activity: Patient baseline bedboundno Turning from your back to your side while in a flat bed without using bedrailsa lot Moving from lying on your back to sitting on the side of a flat bed without using bedrailsa lot Moving to and from bed to chair (including a wheelchair)total Standing up from a chair using your arms (e.g. wheelchair or bedside chair) total To walk in hospital roomtotal Climbing 3-5 steps with railingtotal AM-[facility] Basic Mobility- Total Score8 Putting on and taking off regular lower body clothingtotal Bathing (including washing, rinsing, drying)total Putting on and taking off regular upper body clothingtotal Toileting, which includes using toilet, bedpan or urinaltotal Taking care of personal grooming such as brushing teetha little Eating Mealsa little AM-PAC Daily Activity- Total Score10 Learning Assessment (Patient): Patient is Able to be Assessed for Learningyes Factors Influencing Readiness to Learnpain Factors that Impact Ability to Learnnone Devices/Methods Used to Communicatecommunication board, glasses Learning Preferencesskill demonstration; verbal instruction; video; pictorial; individual instruction; computer/internet Cultural Considerationsnone Developmental Considerationsnone Presybeterian Considerationsreligious considerations YARSANI Other Learnersfamily Learning Assessment (Other Learner): Other learner availableno Depression Screen: During the past month, have you often been bothered by feeling down, depressed or hopelessno During the past month, have you often had little interest or pleasure in doing thingsno Have you had any thoughts of harming anyone elseno (1) [place] Suicide: Risk Screen Not Applicable/Able to Answerable to be screened In the Past Month: Have you wished you were or could go to sleep and not wake upno(1) In the Past Month: Have you had any actual thoughts of killing yourself no(1) Lifetime: Have you ever done, started to do, or prepared to do anything to end your lifeno [place] Suicide Risknegative Adult Nutrition Screen: Have you recently lost weight without tryingno Have you been eating poorly because of a decreased appetiteyes Malnutrition Screening Tool Score1 Malnutrition Screening Tool RiskMST = 0 or 1 Not at risk. Eating well with little or no weight loss Nutrition Consult needed (more content not included)... Normal [facility] BASIC METABOLIC PANELon 03-10 Anion gap [Moles/Vol] 13 mmol/L Normal 10 - 20 [facility] Comment on above: Performed By: #### B MP ####[address] [address] Calcium [Mass/Vol] 7.8 mg/dL Low 8.6 - 10.3 [facility] Comment on above: Performed By: #### B MP ####[address] [address] Chloride [Moles/Vol] 97 mmol/L Low 98 - 107 [facility] Comment on above: Performed By: #### B MP ####[address] [address] Creatinine [Mass/Vol] 0.65 mg/dL Normal 0.50 - 1.05 [facility] Comment on above: Performed By: #### B MP ####[address] [address] GFR- AM. >60 Normal >60 [facility] Comment on above: Result Comment: CALC ULATIONS OF ESTIMATED GFR ARE PERFORMED USING THE MDRD STUDY EQUATION FOR THE IDMS-TRACEABLE CREATININE METHODS. CLIN CHEM 2007;53:766-72 Performed By: #### B MP ####[address] [address] GFR-NON AM. >60 Normal >60 [facility] Comment on above: Performed By: #### B MP ####[address] [address] Glucose [Mass/Vol] 120 mg/dL High 74 - 99 [facility] Comment on above: Performed By: #### B MP ####[address] [address] HCO3 (Bld) [Moles/Vol] 25 mmol/L Normal 21 - 32 [facility] Comment on above: Performed By: #### B MP ####[address] [address] Potassium [Moles/Vol] 3.2 mmol/L Low 3.5 - 5.3 [facility] Comment on above: Performed By: #### B MP ####[address] [address] Sodium [Moles/Vol] 132 mmol/L Low 136 - 145 [facility] Comment on above: Performed By: #### B MP ####[address] [address] Urea nitrogen [Mass/Vol] 10 mg/dL Normal 6 - 23 [facility] Comment on above: Performed By: #### B MP ####[address] [address] CBC AND DIFFERENTIALon 04-02 Basophils (Bld) [#/Vol] 0.10 10*3/uL Normal 0.00 - 0.10 [facility] Comment on above: Performed By: #### C BCDF #### [address] [address] Basophils/100 WBC (Bld) 0.3 % Normal 0.0 - 2.0 [facility] Comment on above: Performed By: #### C BCDF #### [address] [address] Eosinophils (Bld) [#/Vol] 0.00 10*3/uL Normal 0.00 - 0.40 [facility] Comment on above: Performed By: #### C BCDF #### [address] [address] Eosinophils/100 WBC (Bld) 0.1 % Normal 0.0 - 6.0 [facility] Comment on above: Performed By: #### C BCDF #### [address] [address] Erythrocyte distribution width (RBC) [Ratio] 13.5 % Normal 11.5 - 14.5 [facility] Comment on above: Performed By: #### C BCDF #### [address] [address] Hematocrit (Bld) [Volume fraction] 38.6 % Normal 36.0 - 46.0 [facility] Comment on above: Performed By: #### C BCDF #### [address] [address] Hemoglobin (Bld) [Mass/Vol] 12.4 g/dL Normal 12.0 - 16.0 [facility] Comment on above: Performed By: #### C BCDF #### [address] [address] Lymphocytes (Bld) [#/Vol] 3.20 10*3/uL High 0.80 - 3.00 [facility] Comment on above: Performed By: #### C BCDF #### [address] [address] Lymphocytes/100 WBC (Bld) 20.9 % Normal 13.0 - 44.0 [facility] Comment on above: Performed By: #### C BCDF #### [address] [address] MCHC (RBC) [Mass/Vol] 32.0 g/dL Normal 32.0 - 36.0 [facility] Comment on above: Performed By: #### C BCDF #### [address] [address] MCV (RBC) [Entitic vol] 92 fL Normal 80 - 100 [facility] Comment on above: Performed By: #### C BCDF #### [address] [address] Monocytes (Bld) [#/Vol] 1.30 10*3/uL High 0.05 - 0.80 [facility] Comment on above: Performed By: #### C BCDF #### [address] [address] Monocytes/100 WBC (Bld) 8.5 % Normal 2.0 - 10.0 [facility] Comment on above: Performed By: #### C BCDF #### [address] [address] Neutrophils (Bld) [#/Vol] 10.90 10*3/uL High 1.60 - 5.50 [facility] Comment on above: Result Comment: Perc ent differential counts (%) should be interpreted in the context of the absolute cell counts (cells/L). Performed By: #### C BCDF #### [address] [address] Neutrophils/100 WBC (Bld) 70.2 % Normal 40.0 - 80.0 [facility] Comment on above: Performed By: #### C BCDF #### [address] [address] Platelets (Bld) [#/Vol] 284 10*3/uL Normal 150 - 450 [facility] Comment on above: Performed By: #### C BCDF #### [address] [address] RBC 4.20 x10E12/L Normal 4.00 - 5.20 [facility] Comment on above: Performed By: #### C BCDF #### [address] [address] WBC (Bld) [#/Vol] 15.5 10*3/uL High 4.4 - 11.3 [facility] Comment on above: Performed By: #### C BCDF #### [address] [address] CHEST 1 VIEWon 04-02-2020 CHEST 1 VIEW Patient Name: CAT CARROLL STUDY: CHEST 1 VIEW; HIP, UNILATERAL W/PELVIS WHEN PERFORMED 2-3 VIEWS; 04/02/2020 4:41 pmAP chest radiograph. Two views right hip. AP view of the pelvis. INDICATION: dyspnea; trauma. COMPARISON: Chest radiograph 03/07/2016 ACCESSION NUMBER(S): [id number]; [id number] ORDERING CLINICIAN: NÉSTOR DE GUZMAN FINDINGS: Chest: CARDIOMEDIASTINAL SILHOUETTE: Cardiomediastinal silhouette is stable in size and configuration. Redemonstrated calcified left hilar lymph node. LUNGS: No pulmonary consolidation, pleural effusion or pneumothorax. ABDOMEN: No remarkable upper abdominal findings. BONES: No acute osseous abnormality. Right hip/pelvis: Right femoral intertrochanteric fracture with distraction of approximately 1.2 cm. Bones are demineralized. Mild to moderate femoroacetabular joint space narrowing with osteophytic spurring bilaterally. Lumbosacral spine fusion hardware. IMPRESSION: No radiographic evidence of acute cardiopulmonary pathology. 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 Electronically signed by: JOSSUE NATHAN MD Normal [facility] CORONAVIRUS 2019 BY PCRon SARS-CoV-2 (COVID-19) RNA SUJEY+probe Ql (Unsp spec) Not detected Normal Not Detected [facility] Comment on above: Result Comment: . This test has received [facility] Emergency Use Authorization (EUA) and has been verified by [facility]. This test is only authorized for the duration of time that circumstances exist to justify the authorization of the emergency use of in vitro diagnostic tests for the detection of SARS-CoV-2 virus and/or diagnosis of COVID-19 infection under section 564(b)(1) of the Act, 21 U.S.C. 360bbb-3(b)(1), unless the authorization is terminated or revoked sooner. [facility] is certified under CLIA-88 as qualified to perform high complexity testing. Testing is performed in the [facility] laboratory located at [address] [place] [address]. SARS-CoV-2/Flu/RSV Multiplex Test: Fact sheet for providers: https://www.fda.gov/media/597243/download Fact sheet for patients: https://www.fda.gov/media/457724/download Performed By: #### C OV19 #### [id number] [place] [address] Lab Specimen Source Nasal, Nasopharyngeal Normal [facility] Comment on above: Performed By: #### C OV19 #### [address] [place] [address] Complete Blood Count + Diffe rentialon 04-02-2020 Basophils (Bld) [#/Vol] 0.10 {x10E9/L} See Below [facility] 300 Work Phone: Comment on above: Reference Range: 0.0 0 - 0.10 Ordering Provider: Jonathan Roldan Basophils/100 WBC (Bld) 0.3 % 0.0 - 2.0 [facility] 300 Work Phone: Comment on above: Ordering Provider: Jonathan DE GUZMAN [id number] Eosinophils (Bld) [#/Vol] 0.00 {x10E9/L} See Below [facility] 300 Work Phone: Comment on above: Reference Range: 0.0 0 - 0.40 Ordering Provider: Jonathan Roldan Eosinophils/100 WBC (Bld) 0.1 % 0.0 - 6.0 [facility] 300 Work Phone: Comment on above: Ordering Provider: Jonathan Roldan Erythrocyte distribution width (RBC) [Ratio] 13.5 % See Below [facility] 300 Work Phone: Comment on above: Reference Range: 11. 5 - 14.5 Ordering Provider: Jonathan Roldan Hematocrit (Bld) [Volume fraction] 38.6 % See Below [facility] 300 Work Phone: Comment on above: Reference Range: 36. 0 - 46.0 Ordering Provider: Jonathan Roldan Hemoglobin (Bld) [Mass/Vol] 12.4 g/dL See Below [facility] 300 Work Phone: Comment on above: Reference Range: 12. 0 - 16.0 Ordering Provider: Jonathan Roldan Lymphocytes (Bld) [#/Vol] 3.20 {x10E9/L} above high threshold See Below [facility] 300 Work Phone: Comment on above: Reference Range: 0.8 0 - 3.00 Ordering Provider: Jonathan Roldan Lymphocytes/100 WBC (Bld) 20.9 % See Below [facility] 300 Work Phone: Comment on above: Reference Range: 13. 0 - 44.0 Ordering Provider: Jonathan Roldan MCHC (RBC) [Mass/Vol] 32.0 g/dL See Below [facility] 300 Work Phone: Comment on above: Reference Range: 32. 0 - 36.0 Ordering Provider: Jonathan Roldan MCV (RBC) [Entitic vol] 92 fL 80 - 100 [facility] 300 Work Phone: Comment on above: Ordering Provider: Jonathan Roldan Monocytes (Bld) [#/Vol] 1.30 {x10E9/L} above high threshold See Below [facility] 300 Work Phone: Comment on above: Reference Range: 0.0 5 - 0.80 Ordering Provider: Jonathan Roldan Monocytes/100 WBC (Bld) 8.5 % 2.0 - 10.0 [facility] 300 Work Phone: Comment on above: Ordering Provider: Jonathan Roldan Neutrophils/100 WBC (Bld) 70.2 % See Below [facility] 300 Work Phone: Comment on above: Reference Range: 40. 0 - 80.0 Ordering Provider: Jonathan Roldan Platelets (Bld) [#/Vol] 284 {x10E9/L} 150 - 450 [facility] 300 Work Phone: Comment on above: Ordering Provider: Jonathan Roldan RBC (Bld) [#/Vol] 4.20 {x10E12/L} See Below [facility] 300 Work Phone: Comment on above: Reference Range: 4.0 0 - 5.20 Ordering Provider: Jonathan Roldan WBC (Bld) [#/Vol] 15.5 {x10E9/L} above high threshold 4.4 - 11.3 [facility] 300 Work Phone: Comment on above: Ordering Provider: Jonathan Roldan Complete Blood Count + Differential 10.90 {x10E9/L} above high threshold See Below [facility] 300 Work Phone: Comment on above: Reference Range: 1.6 0 - 5.50 Percent differential counts (%) should be interpreted in the context of the absolute cell counts (cells/L). Ordering Provider: Jonathan Roldan Coronavirus 2019 RNA by PCR, Symptomaticon 04-02-2020 Coronavirus 2019 RNA by PCR, Symptomatic NOT DETECTED Normal See Below [facility] 300 Work Phone: Comment on above: SOURCE: Nasal, Nasop haryngealReference Range: Not Detected.This test has received FDA Emergency Use Authorization (EUA) and has been verified by [facility]. This test is only authorized for the duration of time that circumstances exist to justify the authorization of the emergency use of in vitro diagnostic tests for the detection of SARS-CoV-2 virus and/or diagnosis of COVID-19 infection under section 564(b)(1) of the Act, 21 U.S.C. 360bbb-3(b)(1), unless the authorization is terminated or revoked sooner. [facility] is certified under CLIA-88 as qualified to perform high complexity testing. Testing is performed in the [facility] laboratory located at [address] [place] [address].SARS-CoV-2/Flu/RSV Multiplex Test: Fact sheet for providers: https://www.fda.gov/media/754936/downloadFact sheet for patients: https://www.fda.gov/media/872397/download Ordering Provider: Jonathan DE GUZMAN [id number] Covid 19 Resultson 1 SARS-CoV-2 (COVID-19) RNA SUJEY+probe Ql (Unsp spec) NEGATIVE COVID-19 Test Coronaviruses are common world-wide and are the cause of many common colds. SARS-COV2 is a new coronavirus that began circulating worldwide in 2019 so we are calling it COVID-19. It has been estimated that four out of five patients with COVID-19 will recover at home without the need for medical attention. Symptoms of COVID-19 include cough, fever, shortness of breath, loss of taste or smell and other flu-like symptoms including chills, sore muscles, sore throat, and headache. Severe illness is more common in older people and people with other health problems such as high blood pressure, obesity, and immune system problems. If the test is positive, you have COVID-19. You will be contacted by the ordering physicians office and instructed to remain on home isolation, in accordance with CDC guidelines. You may also be contacted by the [facility] to see if any of your close contacts may have been exposed to the virus and need to quarantine. If the test is negative, you likely do not have COVID-19 at this time, but you still may have a different illness that can spread to other people (like Influenza, or the Flu) and could still be at risk for getting COVID-19. We recommend that you stay away from other people to limit the spread of illness until your symptoms are improving and you are fever-free for 24 hours without the use of fever lowering medications such as acetaminophen or ibuprofen. No test is 100% accurate so if you are still concerned you may have COVID-19, talk to your doctor about the need to continue to stay away from others. Medicines Acetaminophen (Tylenol and others) is generally safe. Anti-inflammatory medications, such as Ibuprofen (Advil or Motrin) or Naproxen (Aleve) can also be used. Qsym-ozm-hdcywnx cough and cold medicines can be used according to the instructions on the package. Some sohv-sqq-lrbmaxk medicines also contain acetaminophen. Make sure you are not taking more than your recommended dose For those not hospitalized, there is no specific treatment available for this illness. Antibiotics do not treat Coronaviruses. Follow-Up Follow up with your doctor by scheduling a virtual visit or consider follow-up at one of our urgent care fever clinics. If you are having difficulty breathing, or are very weak and having difficulty standing, this is a medical emergency. Call 911 or have someone take you to the nearest emergency room immediately. If possible, wear a facemask. Additional guidance from the CDC for patients who tested POSITIVE for COVID-19 How to isolate: Isolate yourself in a specific room at home and limit your contact with others. Use a separate bathroom from other members of the household, when possible. Leave home only to get essential medical care. Do not go to work, school or public areas. Avoid using public transportation, ride-sharing, or taxis. Restrict contact with pets and other animals. If you must care for your pet or be around animals while you are sick, wash your hands before and after your interaction and wear a facemask. Make sure that shared spaces in the home have good airflow, such as by an air conditioner or an opened window, weather permitting. Personal Hygiene Procedures: Wear a face mask when in the same room as other people or pets. If a face mask interferes with your breathing, others should wear a mask when sharing space with you. Frequent hand-washing: wash your hands with soap and water for at least 20 seconds. If soap and water are not available, use alcohol-based hand measuring machine operator. Avoid touching your eyes, nose, and mouth with unwashed hands. Household Hygiene Procedures: Avoid sharing personal household items such as dishes, glassware, cups, eating utensils, towels or bedding with other people or pets in your home. After use, these items should be washed with soap and hot water. Disinfect all high-touch surfaces every day with antibacterial cleaning solutions such as Lysol wipes, bleach, cleansers, etc. High-touch surfaces include tabletops, doorknobs, bathroom fixtures, toilets, phones, keyboards, tablets and bedside tables. Immediately clean any surfaces that may have blood, poop or body fluids on them, using antibacterial cleaning solutions such as Lysol wipes, bleach, cleansers, etc. If clothing or bedding come into contact with blood, poop or body fluids, they should be washed immediately. Follow the directions on the laundry detergent and clothing labels but hot water is recommended when possible. Stopping home isolation precautions: If possible, consult your doctor before stopping home isolation precautions. According to the CDC, you can discontinue home isolation precautions when you have met both of these criteria: Your fever and respiratory symptoms have been gone for 24 hours without the use of any medicines like ibuprofen (Motrin) (more content not included)... Normal [facility] HIP, UNILATERAL W/PELVIS WHE N PERFORMED 2-3 VIEWSon 04-02-2020 HIP, UNILATERAL W/PELVIS WHEN PERFORMED 2-3 VIEWS Patient Name: CAT CARROLL STUDY: CHEST 1 VIEW; HIP, UNILATERAL W/PELVIS WHEN PERFORMED 2-3 VIEWS; 04/02/2020 4:41 pmAP chest radiograph. Two views right hip. AP view of the pelvis. INDICATION: dyspnea; trauma. COMPARISON: Chest radiograph 03/07/2016 ACCESSION NUMBER(S): [id number]; [id number] ORDERING CLINICIAN: NÉSTOR DE GUZMAN FINDINGS: Chest: CARDIOMEDIASTINAL SILHOUETTE: Cardiomediastinal silhouette is stable in size and configuration. Redemonstrated calcified left hilar lymph node. LUNGS: No pulmonary consolidation, pleural effusion or pneumothorax. ABDOMEN: No remarkable upper abdominal findings. BONES: No acute osseous abnormality. Right hip/pelvis: Right femoral intertrochanteric fracture with distraction of approximately 1.2 cm. Bones are demineralized. Mild to moderate femoroacetabular joint space narrowing with osteophytic spurring bilaterally. Lumbosacral spine fusion hardware. IMPRESSION: No radiographic evidence of acute cardiopulmonary pathology. 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 Electronically signed by: JOSSUE NATHAN MD Normal [facility] Metabolic Panelon 04-02-2020 Anion gap [Moles/Vol] 13 mmol/L 10 - 20 [facility] 300 Work Phone: Comment on above: Ordering Provider: Jonathan DE GUZMAN [id number] Calcium [Mass/Vol] 7.8 mg/dL below low threshold 8.6 - 10.3 [facility] 300 Work Phone: Comment on above: Ordering Provider: Jonathan Roldan Chloride [Moles/Vol] 97 mmol/L below low threshold 98 - 107 [facility] 300 Work Phone: Comment on above: Ordering Provider: Jonathan Roldan CO2 [Moles/Vol] 25 mmol/L 21 - 32 [facility] 300 Work Phone: Comment on above: Ordering Provider: Jonathan Roldan Creatinine [Mass/Vol] 0.65 mg/dL See Below [facility] 300 Work Phone: Comment on above: Reference Range: 0.5 0 - 1.05 Ordering Provider: Jonathan Roldan Glucose [Mass/Vol] 120 mg/dL above high threshold 74 - 99 [facility] 300 Work Phone: Comment on above: Ordering Provider: Jonathan Roldan Potassium [Moles/Vol] 3.2 mmol/L below low threshold 3.5 - 5.3 [facility] 300 Work Phone: Comment on above: Ordering Provider: Jonathan Roldan Sodium [Moles/Vol] 132 mmol/L below low threshold 136 - 145 [facility] 300 Work Phone: Comment on above: Ordering Provider: Jonathan Roldan Urea nitrogen [Mass/Vol] 10 mg/dL 6 - 23 [facility] 300 Work Phone: Comment on above: Ordering Provider: Jonathan Roldan Otheron 04-02-2020 >60 >60 [facility] 300 Work Phone: Comment on above: Ordering Provider: Jonathan Roldan CALCULATIONS OF DANIELLE MATED GFR ARE PERFORMED USING THE MDRD STUDY EQUATION FOR THE IDMS-TRACEABLE CREATININE METHODS. CLIN CHEM 2007;[id number] Interpreted by: JOSSUE NATHAN04/02/20 18:04MRN: [id number] Name: CAT CARROLL STUDY:CHEST 1 VIEW; HIP, UNILATERAL W/PELVIS WHEN PERFORMED 2-3 VIEWS;04/02/2020 4:41 pmAP chest radiograph. Two views right hip. AP view ofthe pelvis. INDICATION:dyspnea; trauma. COMPARISON:Chest radiograph 03/07/2016 [id number] ORDERING CLINICIAN:NÉSTOR DE GUZMAN FINDINGS:Chest: CARDIOMEDIASTINAL SILHOUETTE:Cardiomediastina l silhouette is stable in size and configuration.Redemonstrate d calcified left hilar lymph node. LUNGS:No pulmonary consolidation, pleural effusion or pneumothorax. ABDOMEN:No remarkable upper abdominal findings. BONES:No acute osseous abnormality. Right hip/pelvis: Right femoral intertrochanteric fracture withdistraction of approximately 1.2 cm. Bones are demineralized. Mild tomoderate femoroacetabular joint space narrowing with osteophyticspurring bilaterally. Lumbosacral spine fusion hardware. IMPRESSION:No radiographic evidence of acute cardiopulmonary pathology. Right femoral intertrochanteric fracture with distraction ofapproximately 1.2 cmMild to moderate femoroacetabular joint osteoarthrosis bilaterally.Electronically signed by: JOSSUE NATHAN 04/02/20 18:04 Normal [facility] 300 Work Phone: Comment on above: Ordering Provider: Jonathan DE GUZMAN [id number] Patient Profile - Adult v2on 04-02-2020 Patient Profile - Adult v2 Profile: Initial Info: How to be AddressedVERLIN Spoken Language PreferredEnglish (1) Source of Informationpatient Stated Reason for AdmissionRIGHT HIP FRACTURE FELL IN KITCHEN Primary Contact Name and NumberGEORBEBETO ARCHER Patient Belongingsremains with patient Patient Belongings Remaining with Patientpurse/wallet; cell phone/electronics; clothing; dental appliance; vision aids; mcclure/credit card History of MDROno [place] Medic[place] Brought to Hospitalno Are you currently using the Personal Electronic Health Record or MYCAREyes Wants Family/Rep Notified of Admissionyes, primary contact Notify PCPnotify PCP Informed of Patient Visiting Rightsyes General Health: Weight in kg64.2 kilogram(s) Weight in fnd529.5 pound(s) Weight Methodactual (measured) Scale Typebed Height in cm162.5 centimeter(s) Height in feet5 feet(2) Height in inches4 inch(es)(2) Height Methodstated BMI (kg/m2)24.312 square meter RSP Based Care: Recent Change in Mood/Behaviordenies Major Change/Loss/Stressor/Fearsd enies How would you like to participate in your careJUST LET ME KNOW WHATS NEXT What is the number one concern for you during this hospitalizationGET MY RIGHT LEG FIXED AND GO HOME What is the most important thing we can do to support you during this hospitalizationIM IN A LOT OF PAIN. HELP ME THRU THIS' Is there anything we need to know to best care for youI HAVE 2 STENTS IM MY HEART, IM ON BLOOD THINNERS I BLEED REALLY EASY Substance: Current or Former Substance Use YES: Cigarette/Tobacco(3) Tobacco Cessation Education (provide if tobacco use within the last 12 mos)not applicable Health Mgmt: Symptoms/Conditions Managed at H[place]one Barriers to Managing Healthnone Relationship/Environ: Resource/Environmental Concernsnone Primary Source of Support/Comfortchild(william); friend Lives Withalone Living Arrangementsmobile home Services Anticipated at Transitionnone Anticipated Transition Tohome Significant IndicatorsComplete Information Review: Allergies, Home Meds and Significant Events have been Reviewed and Verified with Patient/Familyyes ALLERGY, INTOLERANCE, ADVERSE EVENT: Allergies: Neosporin: Drug, Rash, Active Latex: Latex, Rash, Active Tape - Adhesive, Bandaids, Paper: Environment, Rash, Active Intolerances: gabapentin: Drug, Dizziness, Active aspirin: Drug, GI Upset, Active codeine: Drug, GI Upset, Active Dust: Environment, Congestion, Active Electronic Signatures: Néstor Thapa (SUPV) (Signed 02-Apr-2020 20:22) Authored: Initial Info, General Health, RSP Based Care, Substance, Health Mgmt, Relationship/Environ, Additional Information Last Updated: 02-Apr-2020 20:22 by Néstor Thapa (SUPV) References: 1. Data Referenced From Triage - ED 10-Mar-2019 08:53 2. Data Referenced From 1. Vital Signs 02-Apr-2020 15:38 3. Data Referenced From Risk Screen - Adult Emergency 02-Apr-2020 15:41 Normal [facility] Provider Note - ED v2on 03-10 Provider Note - ED v2 Provider Note - ED v2: Chart Review: ED NOTES ED NOTES: 85-year-old female presents by ambulance after she tripped and fell at home injuring her right hip. 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 Patient was given 2 mg of IV morphine and 4 mg of IV Zofran for pain. Patient did get some moderate relief. This occurred upon arrival in my initial evaluation when patient had been here for short period of time. X-rays show intertrochanteric fracture of right femur. I did speak with Dr. Dolan, he stated he could not do the patient tomorrow here at [place] as he had cases at [facility]. He stated he could do her on Thursday. He suggested if the patient needed surgery tomorrow to call Dr Cabrera. He stated he would see the patient in consultation for surgery tomorrow. Patient is comfortable with that plan of care. Patient indicated to me that the morphine did not help. Patient was given Dilaudid 0.5 mg IV. Patient will be admitted for further diagnostic treatment. HISTORY OF PRESENTING ILLNESS CAT is a 84 year old Female and was seen by me at 02-Apr-2020 15:37 for a chief complaint of hip pain/injury (right hip injury I was walking into the house and tripped denies hitting head or loc. no neck pain.)(1). The historian is the patient. Triage Information: Most recent Vital Sign Value Date Temp (F): 98.2 04-02-2020 15:38 Temp (C): 36.7 04-02-2020 15:38 Heart Rate (beats/min): 76 04-02-2020 15:38 Respirations (breaths/min): 18 04-02-2020 15:38 SpO2 (%): 97 04-02-2020 15:38 BP Systolic (mm Hg): 179 04-02-2020 15:38 BP Diastolic (mm Hg): 74 04-02-2020 15:38 PAST MEDICAL HISTORY ATTESTATION: I have reviewed and confirmed nurse's/medic's notes for patient's medications, allergies, and medical, surgical, family and social history ALLERGIES/INTOLERANCES: Allergy Allergen: Neosporin Type: Drug Reaction: Rash Allergen: Latex Type: Latex Reaction: Rash Allergen: Tape - Adhesive, Bandaids, Paper Type: Environment Reaction: Rash Intolerance Allergen: gabapentin Type: Drug Reaction: Dizziness Allergen: aspirin Type: Drug Reaction: GI Upset Allergen: codeine Type: Drug Reaction: GI Upset Allergen: Dust Type: Environment Reaction: Congestion HEALTH HISTORY: Medical History Name:Sleep apnea Code:G47.30 Name:Arthritis Code:M19.90 Name:Fibromyalgia Code:M79.7 Name:GERD (gastroesophageal reflux disease) Code:K21.9 Name:Hypertension Code:I10 Name:Macular degeneration Code:H35.30 Name:Trigeminal neuralgia Code:G50.0 OUTPATIENT MEDICATIONS: Home Medications Review Status for Reconciliation: Complete Med Status: Patient Currently Takes Medications Drug Name: Lipitor 80 mg oral tablet Instructions: 1 tab(s) orally once a day Drug Name: Centrum Silver oral tablet Instructions: 1 tab(s) orally once a day Drug Name: Questran 4 g/9 g oral powder for reconstitution Instructions: orally once a day Drug Name: Brilinta (ticagrelor) 90 mg oral tablet Instructions: 1 tab(s) orally 2 times a day Drug Name: Flovent HFA 110 mcg/inh inhalation aerosol Instructions: 2 puff(s) inhaled 2 times a day Drug Name: nitroglycerin 0.4 mg sublingual tablet Instructions: 1 tab(s) sublingual every 5 minutes, As Needed Drug Name: omeprazole 40 mg oral delayed release capsule Instructions: 1 cap(s) orally once a day Drug Name: Metoprolol Tartrate 25 mg oral tablet Instructions: 1 tab(s) orally 2 times a day Drug Name: Aspirin Enteric Coated 81 mg oral delayed release tablet Instructions: 1 tab(s) orally once a day Drug Name: traMADol 50 mg oral tablet Instructions: 1 tab(s) orally every 8 hours, As Needed - for pain Drug Name: carBAMazepine 200 mg oral tablet Instructions: 1 tab(s) orally 3 times a day Drug Name: DULoxetine 60 mg oral delayed release capsule Instructions: 1 cap(s) orally once a day Drug Name: losartan 25 mg oral tablet Instructions: 1 tab(s) orally once a day Drug Name: oxybutynin 5 mg/24 hours oral tablet, extended release Instructions: 1 tab(s) orally once a day Drug Name: Vitamin D3 Instructions: 1 tab(s) orally once a day Drug Name: Fish Oil oral capsule Instructions: 1 cap(s) orally once a day SIGNIFICANT EVENTS: Past Medical History Description:Hypertension Description:Myocardial Infarction Description:Hypercholestero lemia Description:CAD Description:Asthma Description:spinal stenosis Past Surgical History Description:Cholecystectomy Description:Appendectomy Description:Hysterectomy Description:Knee replacement-left REVIEW OF SYSTEMS All other systems reviewed and are negative PHYSICAL EXAM CONSTITUTIONAL: Well appearing, well nourished, awake, alert, oriented to person, place, time/situation and in no apparent distress. HENMT: Airway patent, ears with clear tympa (more content not included)... [facility] Risk Screen - Adult Emergenc yon 04-02-2020 Risk Screen - Adult Emergency Preferred Language: Preferred Language: Preferred Language for Discussing Health Care (patient/designee)[place] Advanced Directives: Advance Directive/DNRyes Family Violence Adult: Abuse Screen: Are you or have you been threatened or abused physically, emotionally, or sexually by anyoneno Learning Assessment (Patient): Learning Assessment (Patient): Patient is Able to be Assessed for Learningyes Factors Influencing Readiness to Learnpain Factors that Impact Ability to Learnnone Devices/Methods Used to Communicatenone Learning Preferencesaudio Cultural Considerationsnone Developmental Considerationsnone Presybeterian Considerationsnone Learning Assessment (Other Learner): Learning Assessment (Other Learner): Other learner availableno Pressure Injury/TB/Substance: Pressure Injury: Do you have a coughno Substance Use Current or Former Historynever: e-Cigarette/Vaping, Alcohol, Street Drugs YES: Cigarette/Tobacco Smoking Statusformer smoker Admission Risk Screen: Significant IndicatorsComplete CAGE: CAGE: Is this an injured patient at a Trauma Center ([facility]/[place]): no Electronic Signatures: Shantel Egan (MISSY) (Signed 02-Apr-2020 15:42) Authored: Preferred Language, Advanced Directives, Family Violence Adult, Learning Assessment (Patient), Learning Assessment (Other Learner), Pressure Injury/TB/Substance, Pressure Injury, CAGE Last Updated: 02-Apr-2020 15:42 by Shantel Egan (MISSY) [facility] Triage - EDon 04-02-2020 Triage - ED Chart Review: ARRIVAL INFORMATION Mode of Arrival: private vehicle CHIEF COMPLAINT CAT CARROLL is a Female patient with a chief complaint of hip pain/injury (right hip injury I was walking into the house and tripped denies hitting head or loc. no neck pain.). Triage Date/Time: 02-Apr-2020 15:38 Pain Rating (0-10): 8 = Severe Vital Signs: Temperature: 98.2F ( 36.7C) taken oral Blood Pressure: 179/74 Mean: Heart Rate: 76 Respiratory Rate: 18 Pulse Oximetry: 97% on room air, no respiratory support. Height: 5 feet 4.00 inches. 162.5 CM Weight: 143.3 pounds. Calculated 65.0 kg. (stated) Calculated BMI (kg/m2): 24.615 Calculated BSA (m2) 1.71 Frannie Coma Scale: Best Eye Response: (E4) spontaneous Best Motor Response: (M6) obeys commands Best Verbal Response: (V5) oriented Rafael Score: 15 Allergies: yes Patient has homicidal thoughts: no CHRISSY: 3 Risk Screens Suicide Risk Screen In the Past Month: Have you wished you were or wished you could go to sleep and not wake up no In the Past Month: Have you had any actual thoughts of killing yourself no In Your Lifetime: Have you ever done anything, started to do anything, or prepared to do anything to end your life no Duncan Fall Scale Screening Has the patient fallen before (or is the patient in the ED as a result of a fall) has had a fall Does the patient have an impaired gait does not have impaired gait Is the patient cognitively impaired not cognitively impaired Duncan Fall Scale History of falling (immediate or previous) yes (25) Secondary Diagnosis no (0) Intravenous Therapy/ Heparin/Saline Lock yes (20) Gait/Transferring normal/bedrest/wheelchair (0) Ambulatory Aids none/bedrest/nurse assist (0) Mental Status oriented to own ability (0) Duncan Fall Risk Score: 45 Interventions: Duncan Fall Interventions: HIGH INTERVENTIONS *Low and Moderate Interventions Plus: * supervised toileting at all times TRAVEL HISTORY Travel History Coronavirus Screening: no exposure or symptoms PAIN Pain Scale Used: JANICE Pain Rating (0-10): 8 = Severe Past Medical History: Past Medical History Reviewedyes Knee replacement-left: Past Surgical History, Active Hysterectomy: Past Surgical History, Active Appendectomy: Past Surgical History, Active Cholecystectomy: Past Surgical History, Active spinal stenosis: Past Medical History, Active Asthma: Past Medical History, Active CAD: Past Medical History, Active Hypercholesterolemia: Past Medical History, Active Myocardial Infarction: Past Medical History, Active, Aug 2018 Hypertension: Past Medical History, Active Electronic Signatures: Shnatel Egan (RN) (Signed 02-Apr-2020 15:41) Entered: Risk Screens, Pain, Chart Review, Scores, Past Medical History Authored: Quick Triage, Risk Screens, Pain, Chart Review, Scores, Past Medical History Alanna Coles (MISSY) (Signed 02-Apr-2020 17:09) Authored: Quick Triage Last Updated: 02-Apr-2020 17:09 by Alanna Coles (MISSY) Normal [facility] CT HEAD WO CONTRASTon 2020 CT HEAD WO CONTRAST Patient Name: CAT CARROLL STUDY: CT HEAD WO CONTRAST; 03/26/2020 4:13 pm INDICATION: fell and hit head. COMPARISON: 10/23/2014 ACCESSION NUMBER(S): [id number] ORDERING CLINICIAN: JOSE PENNY TECHNIQUE: Helical CT imaging of the head was performed without contrast. FINDINGS: EXTRACRANIAL SOFT TISSUES: There is a large soft tissue hematoma along the posterior right calvarium BRAIN PARENCHYMA and VENTRICLES: No extra-axial lesions or abnormal fluid collections are present. There is no mass effect or midline shift. The ventricles and sulci demonstrate normal age related prominence. Mild periventricular and subcortical white matter hypo attenuation is present. The mejia-white matter differentiation is maintained. HEMORRHAGE: None. INTRACRANIAL VESSELS: Age expected atherosclerotic changes are present. CALVARIUM: Intact. PARANASAL SINUSES/MASTOIDS: Unremarkable. IMPRESSION: 1. No CT evidence of an acute intracranial process. No evidence of an intracranial hemorrhage. 2. Normal age-related involutional changes. 3. Mild periventricular and subcortical white matter changes which are nonspecific but most likely related to chronic small vessel ischemia. Extracranial soft tissue hematoma along the posterior right calvarium Electronically signed by: LAST KEYES MD Normal [facility] CT Head without Contraston 0 03-26-2020 CT Head limited WO contrast Interpreted by: WALI03/26/20 16:38MRN: [id number] Name: ACT CARROLL STUDY:CT HEAD WO CONTRAST; 03/26/2020 4:13 pm INDICATION:fell and hit head. COMPARISON:10/23/2014 ORDERING CLINICIAN:JOSE PENNY TECHNIQUE:Helical CT imaging of the head was performed without contrast. FINDINGS: EXTRACRANIAL SOFT TISSUES: There is a large soft tissue hematomaalong the posterior right calvarium BRAIN PARENCHYMA and VENTRICLES: No extra-axial lesions or abnormalfluid collections are present. There is no mass effect or midlineshift. The ventricles and sulci demonstrate normal age relatedprominence. Mild periventricular and subcortical white matter hypoattenuation is present. The mejia-white matter differentiation ismaintained. HEMORRHAGE: None. INTRACRANIAL VESSELS: Age expected atherosclerotic changes arepresent. CALVARIUM: Intact.PARANASAL SINUSES/MASTOIDS: Unremarkable. IMPRESSION:1. No CT evidence of an acute intracranial process. No evidence ofan intracranial hemorrhage.2. Normal age-related involutional changes.3. Mild periventricular and subcortical white matter changes whichare nonspecific but most likely related to chronic small vesselischemia. Extracranial soft tissue hematoma along the posterior right calvariumElectronically signed by: WALI 03/26/20 16:38 Normal [facility] [address] Work Phone: Comment on above: Ordering Provider: Ector PENNY [id number] Provider Note - ED v2on 03-09 Provider Note - ED v2 Provider Note - ED v2: Chart Review: ED NOTES ED NOTES: HPI: Just prior to arrival patient was at therapy at a pool when she climbed out of the pool slipped on the wet concrete fell back hitting her head on the concrete. She denies any loss of consciousness vomiting or vision changes. Patient does plan of pain to the left hip but she notes this is chronic and was easily able to stand to get into bed. Review of systems negative otherwise. ROS: All systems are negative other than as noted in HPI. Physical Exam I have reviewed the triage vital signs. Const: Well nourished, well developed, appears stated age, no acute distress Eyes: PERRL, EOM intact, no conjunctival injection, vision grossly normal HENT: Neck supple without meningismus no cervical vertebral tenderness. Full range of motion with no complaints of pain., Moist mucous membranes, no pharyengeal swelling or exudate CV: Regular rate and rhythm, Warm, well-perfused extremities. Chest non tender RESP: Lungs clear bilaterally, Unlabored respiratory effort GI: soft, non-tender, non-distended, no masses : MSK: No gross deformities appreciated. Full range of motion of bilateral legs and hips with no complaints of pain Back: Non tender, no pain with ROM Skin: Warm, dry. No rashes Neuro: Alert and oriented x4, GCS 15 , file clerk II-XII grossly intact. Sensation and motor function of extremities grossly intact. Psych: Appropriate mood and affect. I have reviewed and confirmed nurses/medics notes for patient past, social and family history. Portions of this note were dictated by speech recognition. An attempt at proof reading was made to minimize errors. Minor errors in tobacco grader may be present. HISTORY OF PRESENTING ILLNESS CAT is a 84 year old Female and was seen by me at 26-Mar-2020 15:34 for a chief complaint of fall (brought in by afd I was getting out of the pool after therapy and slipped hit back of head. denies loc.)(1). Triage Information: Most recent Vital Sign Value Date Temp (F): 97.7 03-26-2020 15:32 Temp (C): 36.5 03-26-2020 15:32 Heart Rate (beats/min): 78 03-26-2020 15:32 Respirations (breaths/min): 16 03-26-2020 15:32 SpO2 (%): 98 03-26-2020 15:32 BP Systolic (mm Hg): 169 03-26-2020 15:32 BP Diastolic (mm Hg): 83 03-26-2020 15:32 PAST MEDICAL HISTORY ATTESTATION: I have reviewed and confirmed nurse's/medic's notes for patient's medications, allergies, and medical, surgical, family and social history ALLERGIES/INTOLERANCES: Allergy Allergen: Neosporin Type: Drug Reaction: Rash Allergen: Latex Type: Latex Reaction: Rash Allergen: Tape - Adhesive, Bandaids, Paper Type: Environment Reaction: Rash Intolerance Allergen: aspirin Type: Drug Reaction: GI Upset Allergen: codeine Type: Drug Reaction: GI Upset Allergen: Dust Type: Environment Reaction: Congestion HEALTH HISTORY: Medical History Name:Sleep apnea Code:G47.30 Name:Arthritis Code:M19.90 Name:Fibromyalgia Code:M79.7 Name:GERD (gastroesophageal reflux disease) Code:K21.9 Name:Hypertension Code:I10 Name:Macular degeneration Code:H35.30 Name:Trigeminal neuralgia Code:G50.0 OUTPATIENT MEDICATIONS: Home Medications Review Status for Reconciliation: N/A Med Status: Patient Currently Takes Medications Drug Name: aspirin 81 mg oral tablet Instructions: 1 tab(s) orally once a day Drug Name: Lipitor 80 mg oral tablet Instructions: 1 tab(s) orally once a day Drug Name: Centrum Silver oral tablet Instructions: 1 tab(s) orally once a day Drug Name: Questran 4 g/9 g oral powder for reconstitution Instructions: orally once a day Drug Name: Brilinta (ticagrelor) 90 mg oral tablet Instructions: 1 tab(s) orally 2 times a day Drug Name: Vitamin D3 50,000 intl units (1250 mcg) oral capsule Instructions: 1 cap(s) orally every 2 weeks Drug Name: Flovent HFA 110 mcg/inh inhalation aerosol Instructions: 2 puff(s) inhaled 2 times a day Drug Name: Xyzal 5 mg oral tablet Instructions: 1 tab(s) orally once a day (in the evening) Drug Name: nitroglycerin 0.4 mg sublingual tablet Instructions: 1 tab(s) sublingual every 5 minutes, As Needed Drug Name: Topamax 50 mg oral tablet Instructions: 75 milligram(s) orally once a day (in the evening) Drug Name: Topamax 50 mg oral tablet Instructions: 1 tab(s) orally once a day (in the morning) Drug Name: omeprazole 40 mg oral delayed release capsule Instructions: 1 cap(s) orally once a day Drug Name: gabapentin 300 mg oral capsule Instructions: 1 cap(s) orally 3 times a day Drug Name: Metoprolol Tartrate 25 mg oral tablet Instructions: 1 tab(s) orally 2 times a day Drug Name: Zofran ODT 4 mg oral tablet, disintegrating Instructions: 1 tab(s) orally every 8 hours, As Needed -for nausea Drug Name: cephalexin 500 mg oral capsule Instructions: 1 cap(s) orally (more content not included)... Normal [facility] Risk Screen - Adult [facility] 03-26-2020 Risk Screen - Adult Emergency Preferred Language: Preferred Language: Preferred Language for Discussing Health Care (patient/designee)[place] Advanced Directives: Advance Directive/DNRyes Advance Directive typeLiving Will, Durable Power of Security Field Supervisor for Healthcare Family Violence Adult: Abuse Screen: Are you or have you been threatened or abused physically, emotionally, or sexually by anyoneno Learning Assessment (Patient): Learning Assessment (Patient): Patient is Able to be Assessed for Learningyes Factors Influencing Readiness to Learnacuteness of illness Factors that Impact Ability to Learnnone Devices/Methods Used to Communicatenone Learning Preferencesaudio Cultural Considerationsnone Developmental Considerationsnone Presybeterian Considerationsnone Learning Assessment (Other Learner): Learning Assessment (Other Learner): Other learner availableno Pressure Injury/TB/Substance: Pressure Injury: Do you have a coughno Substance Use Current or Former Historynever: e-Cigarette/Vaping, Alcohol, Street Drugs YES: Cigarette/Tobacco Smoking Statusformer smoker Admission Risk Screen: Significant IndicatorsComplete CAGE: CAGE: Is this an injured patient at a Trauma Center ([facility]/[place]): no Electronic Signatures: Shantel Egan (RN) (Signed 26-Mar-2020 15:38) Authored: Preferred Language, Advanced Directives, Family Violence Adult, Learning Assessment (Patient), Learning Assessment (Other Learner), Pressure Injury/TB/Substance, Pressure Injury, CAGE Last Updated: 26-Mar-2020 15:38 by Shantel Egan (MISSY) [facility] Triage - [facility] 03-26-2020 Triage - ED Chart Review: ARRIVAL INFORMATION Mode of Arrival: ambulance Agency Name: afd CHIEF COMPLAINT CAT CARROLL is a Female patient with a chief complaint of fall (brought in by afd I was getting out of the pool after therapy and slipped hit back of head. denies loc.). Triage Date/Time: 26-Mar-2020 15:32 Pain Rating (0-10): 0 = None Vital Signs: Temperature: 97.7F ( 36.5C) taken oral Blood Pressure: 169/83 Mean: Heart Rate: 78 Respiratory Rate: 16 Pulse Oximetry: 98% on room air, no respiratory support. Height: 5 feet 4.00 inches. 162.5 CM Weight: 143.3 pounds. Calculated 65.0 kg. (stated) Calculated BMI (kg/m2): 24.615 Calculated BSA (m2) 1.71 Frannie Coma Scale: Best Eye Response: (E4) spontaneous Best Motor Response: (M6) obeys commands Best Verbal Response: (V5) oriented Frannie Score: 15 Allergies: yes Patient has homicidal thoughts: no CHRISSY: 4 Risk Screens Suicide Risk Screen In the Past Month: Have you wished you were or wished you could go to sleep and not wake up no In the Past Month: Have you had any actual thoughts of killing yourself no In Your Lifetime: Have you ever done anything, started to do anything, or prepared to do anything to end your life no Duncan Fall Scale Screening Has the patient fallen before (or is the patient in the ED as a result of a fall) has had a fall Does the patient have an impaired gait does not have impaired gait Is the patient cognitively impaired not cognitively impaired Duncan Fall Scale History of falling (immediate or previous) yes (25) Secondary Diagnosis no (0) Intravenous Therapy/ Heparin/Saline Lock no (0) Gait/Transferring normal/bedrest/wheelchair (0) Ambulatory Aids none/bedrest/nurse assist (0) Mental Status oriented to own ability (0) Duncan Fall Risk Score: 25 Interventions: [place] Fall Interventions: MODERATE INTERVENTIONS: *Low Interventions Plus: * falls risk band/sticker applied to patient, *yellow non-skid footwear, *instruct to call for assistance before getting out of bed, *bed/chair/bedside commode/toilet alarms, *sensory devices/ambulatory aides available and in reach, *medications reviewed for potential side effects and care planning. TRAVEL HISTORY Travel History Coronavirus Screening: no exposure or symptoms PAIN Pain Scale Used: JANICE Pain Rating (0-10): 0 = None Past Medical History: Past Medical History Reviewedyes Knee replacement-left: Past Surgical History, Active Hysterectomy: Past Surgical History, Active Appendectomy: Past Surgical History, Active Cholecystectomy: Past Surgical History, Active spinal stenosis: Past Medical History, Active Asthma: Past Medical History, Active CAD: Past Medical History, Active Hypercholesterolemia: Past Medical History, Active Myocardial Infarction: Past Medical History, Active, Aug 2018 Hypertension: Past Medical History, Active Electronic Signatures: Shantel Egan) (Signed 26-Mar-2020 15:40) Authored: Quick Triage, Risk Screens, Pain, Chart Review, Scores, Past Medical History Last Updated: 26-Mar-2020 15:40 by Shantel Egan (MISSY) Normal [facility] CRP, Inflammationon 02-23-20 CRP [Mass/Vol] mg/L <=10.0 mg/L [facility] Interpretation and review of laboratory results Normal [facility] MONITORED CARDIAC REHAB SESS IONon 09-06-2018 ANGINA N [facility] ENDING HR 84 [facility] EXT - ADMIT TO CR DATE 08/24/2018 [facility] Max HR 95 [facility] Max Mets 2.5 [facility] MODE Recumbent Stepper [facility] RESTING HR 76 [facility] SESSION DATE 09/06/2018 [facility] SESSION LENGTH 0:47:24 [facility] SESSION LIST Session List: 08/25/2018N 08/26/2018N 08/30/2018N 1.09/06/2018Y Scheduled:4 Attended:1 Compliance:25% [facility] SESSION NUMBER 1 [facility] SESSION THR 106 [facility] STATUS Cardiac Phase II [facility] ECG 12-LEADon 08-25-2018 Atrial Rate 65 BPM [facility] P [place] -13 degrees [facility] P-R Interval 176 ms [facility] Q-T Interval 460 ms [facility] QRS Duration 94 ms [facility] QTC Calculation (Bezet) 478 ms [facility] R [place] -23 degrees [facility] T [place] -71 degrees [facility] Ventricular Rate 65 BPM [facility] Normal sinus rhythm Minimal voltage criteria for LVH, may be normal variant Inferior infarct , age undetermined Abnormal ECG Confirmed by Manuel ESTES, Elisabet ([id number]) on 08/25/2018 4:54:43 PM [facility] Basic Metabolic Panelon 08-07 Anion gap molar conc 14 mmol/L 10 - 20 mmol/L [facility] Calcium mass conc 8.3 mg/dL Low 8.4 - 10.2 mg/dL [facility] Chloride molar conc 108 mmol/L 98 - 108 mmol/L [facility] Creatinine mass conc 0.85 mg/dL 0.6 - 1.2 mg/dL [facility] GFR/1.73 sq M predicted among non-blacks MDRD vol rate/area (S/P/Bld) The eGFR should be used for monitoring renal function only and not for medication dosing. [facility] GFR/1.73 sq M.predicted CKD-EPI vol rate/area (S/P/Bld) 64 >=60 mL/min/1.7 3 m2 [facility] Glucose mass conc 117 mg/dL High 65 - 99 mg/dL [facility] HCO3 molar conc 22 mmol/L 21 - 32 mmol/L [facility] Interpretation and review of laboratory results Abnormal [facility] Potassium molar conc 3.8 mmol/L 3.5 - 5.1 mmol/L [facility] Sodium molar conc 140 mmol/L 135 - 145 mmol/L [facility] Urea nitrogen mass conc 17 mg/dL 8 - 25 mg/dL [facility] Urea nitrogen/Creatinine mass ratio 20.0 mg/mg [facility] ECG 12-LEADon 08-24-2018 Atrial Rate 63 BPM [facility] P [place] 42 degrees [facility] P-R Interval 182 ms [facility] Q-T Interval 452 ms [facility] QRS Duration 92 ms [facility] QTC Calculation (Bezet) 462 ms [facility] R [place] -26 degrees [facility] T [place] -52 degrees [facility] Ventricular Rate 63 BPM [facility] Normal sinus rhythm Minimal voltage criteria for LVH, may be normal variant Inferior infarct , age undetermined ST & T wave abnormality, consider lateral ischemia Abnormal ECG Confirmed by Elisabet Jackson MD ([id number]) on 08/24/2018 8:17:40 AM [facility] APTTon 08-23-2018 aPTT Coag time (Bld) Therapeutic range for APTT's is 68 - 104 seconds [facility] aPTT Coag time (Bld) 24 s [facility] CBC WITH AUTO DIFFERENTIALon 08-23-2018 Basophils #/vol (Bld) 0.03 10*3/uL [facility] Basophils/100 WBC (Bld) 0.4 % [facility] Eosinophils #/vol (Bld) 0.07 10*3/uL [facility] Eosinophils/100 WBC (Bld) 0.9 % [facility] Erythrocyte distribution width Entitic volume (RBC) 13.2 % 11.6 - 14.8 % [facility] Hematocrit Volume Fraction (Bld) 40.4 % 36 - 46 % [facility] Hemoglobin mass conc (Bld) 13.2 g/dL 12 - 16 g/dL [facility] Immature granulocytes #/vol (Bld) 0.02 10*3/uL [facility] Immature granulocytes/100 WBC (Bld) 0.20 % [facility] Comment on above: The IG parameter is the percentage of metamyelocytes, myelocytes, and promyelocytes. Interpretation and review of laboratory results Abnormal [facility] Lymphocytes #/vol (Bld) 4.73 10*3/uL High [facility] Lymphocytes/100 WBC (Bld) 58.8 % [facility] MCH Entitic mass (RBC) 29.8 pg 26 - 34 pg [facility] MCHC mass conc (RBC) 32.7 g/dL 31 - 37 g/dL [facility] MCV Entitic volume (RBC) 91.2 fL 80 - 100 fL [facility] Monocytes #/vol (Bld) 0.60 10*3/uL [facility] Monocytes/100 WBC (Bld) 7.5 % [facility] Neutrophils #/vol (Bld) 2.59 10*3/uL [facility] Neutrophils/100 WBC (Bld) 32.2 % [facility] Nucleated RBC #/vol (Bld) 0.00 10*3/uL [facility] Nucleated RBC/100 WBC Ratio (Bld) 0.0 % [facility] Platelet mean volume Entitic volume (Bld) 10.4 fL 9 - 15.5 fL [facility] Platelets #/vol (Bld) 200 10*3/uL [facility] RBC #/vol (Bld) 4.43 10*6/uL [facility] WBC #/vol (Bld) 8.04 10*3/uL [facility] Comprehensive Metabolic Pane raffi 08-23-2018 Albumin mass conc 3.4 g/dL 3.2 - 5.2 g/dL [facility] ALP enzyme act/vol 122 U/L 40 - 150 U/L [facility] ALT enzyme act/vol 20 U/L 14 - 65 U/L [facility] Anion gap molar conc 12 mmol/L 10 - 20 mmol/L [facility] AST enzyme act/vol 17 U/L 0 - 45 U/L [facility] Bilirubin mass conc 0.3 mg/dL 0 - 1.3 mg/dL [facility] Calcium mass conc 8.7 mg/dL 8.4 - 10.2 mg/dL [facility] Chloride molar conc 111 mmol/L High 98 - 108 mmol/L [facility] Creatinine mass conc 1.04 mg/dL 0.6 - 1.2 mg/dL [facility] GFR/1.73 sq M predicted among non-blacks MDRD vol rate/area (S/P/Bld) The eGFR should be used for monitoring renal function only and not for medication dosing. [facility] GFR/1.73 sq M.predicted CKD-EPI vol rate/area (S/P/Bld) 50 Low >=60 mL/min/1.7 3 m2 [facility] Glucose mass conc 128 mg/dL High 65 - 99 mg/dL [facility] HCO3 molar conc 23 mmol/L 21 - 32 mmol/L [facility] Interpretation and review of laboratory results Abnormal [facility] Potassium molar conc 3.6 mmol/L 3.5 - 5.1 mmol/L [facility] Protein mass conc 6.8 g/dL 6 - 8 g/dL [facility] Sodium molar conc 142 mmol/L 135 - 145 mmol/L [facility] [facility] Urea nitrogen mass conc 21 mg/dL 8 - 25 mg/dL [facility] Urea nitrogen/Creatinine mass ratio 20.2 mg/mg High [facility] D-DIMER, QUANTITATIVEon 08-07 Fibrin D-dimer FEU mass conc (PPP) 0.37 0.27 - 0.49 mcg/mL FEU [facility] A D-dimer concentrat ion of <0.5 micrograms per milliliter FEU is considered a low probability for pulmonary embolus (PE) and deep venous thrombosis (DVT). Results of this test should always be interpreted in conjunction with the patient's medical history,clinical presentation, and other findings. Clinical diagnosis should not be based on the results of the D-dimer alone. [facility] ECG 12-LEADon 08-23-2018 Atrial Rate 67 BPM [facility] P [place] 40 degrees [facility] P-R Interval 190 ms [facility] Q-T Interval 420 ms [facility] QRS Duration 102 ms [facility] QTC Calculation (Bezet) 443 ms [facility] R [place] 9 degrees [facility] T [place] 94 degrees [facility] Ventricular Rate 67 BPM [facility] ECG Cart Interpretat ion see physician note for interpretation. Sinus rhythm with Premature atrial complexes with Aberrant conduction Left ventricular hypertrophy with repolarization abnormality Inferior infarct , possibly acute Lateral injury pattern ACUTE IA / STEMI Consider right ventricular involvement in acute inferior infarct Abnormal ECG Confirmed by Portillo Wong ([id number]) on 08/23/2018 8:42:39 AM [facility] ECHOCARDIOGRAM COMPLETEon Mild segmental LV dysfunction with posterior and inferior wall motion abnormalities. Ejection fraction approximately 45 to 50%. [id number] [place] [id number] ECHOCARDIOGRAPHY REPORT - [facility] Name: CAT CARROLL Age: 83 years Date: 08/23/2018 Hospital #: : 1935 Room: [address] [place] [address] Rec #: [id number] Sex: F Tech: Marco Antonio Kern Ordering Physician: [id number] ELISABET WEAVER Height: 64.00 in Sys BP: 143 JACKSON cc: , Weight: 166.00 Stephanie BP: 81 Reading Physician: [id number] Marco Antonio Ansari Rhythm: Normal sinus MD/ rhythm Electronically Signed BSA: 1.81 m by: [id number] Marco Antonio Ansari MD on: 08/23/2018 Reason for Study: Abnormal ekg History: Conclusions: Mild segmental LV dysfunction with posterior and inferior wall motion abnormalities. Ejection fraction approximately 45 to 50%. No significant valvular heart disease identified. Findings: 1. Quality: Adequate. 2. Left Ventricle: Normal LV size. Basal and mid posterior, basal and mid inferior, inferoseptal severe hypokinesis. Impaired relaxation. Ejection fraction approximately 45 to 50%. 3. Left Atrium: Normal size. 4. Right Ventricle: Normal size and systolic function. 5. Right Atrium: Normal size. 6. Aortic Valve: Trileaflet and nonrestrictive. No significant insufficiency. 7. Mitral Valve: Normal appearance with trivial insufficiency. 8. Tricuspid Valve: Normal appearance. No significant insufficiency. 9. Pulmonic Valve: Grossly normal. No significant stenosis or insufficiency on Doppler. 10. Aortic Root: Nondilated. 11. Venous: Normal respiratory collapse of the inferior vena cava consistent with normal right atrial pressures. 12. Pericardium: No significant effusion identified. 13. Other: Prominent systolic forward flow on pulmonary vein Doppler Patient Values (normal ranges in parenthesis) 2-D Doppler RVd 3.20 cm (< 4.2) LVOT Diam 1.9 cm IVSd 1.17 cm DUNCAN 2.61 cm AV Vmax 1.1 m/s LVd 4.30 cm (4.2 - 5.8 Male) AV mean grad. 2.3 mmHg (3.8 - 5.2 Female) AV peak grad. 4.5 mmHg LVPWd 0.91 cm LVs 2.78 cm (2.5 - 3.6 Male) AR Vena Contracta (2.2 - 3.5 Female) MV A Vmax 1.00 m/s Ao Root Diameter (< 3.7 Male) MVA 3.4 cm2 (<3.3 Female) Ao Root Diameter 3.6 cm (< 3.7 Male) MV E Vmax 0.7 m/s (<3.3 Female) LVFS 35 % (28 - 41) MR ERO LV mass index 83 g/m (< 115 Male) RVSP 24.6 mmHg (< 95 Female) RVFW S' RWT 0.42 (< .42) TR Vmax 2.32 m/s LVEF MOD 4C 53.0 % RA Pressure 3 mmHg LVEF MOD 2C (52 - 72 Male) PV Vmax 0.91 m/s (54 - 74 Female) LA Index (BP) 28.1 ml/m TAPSE LAESV LOGGING EQUIPMENT OPERATOR NOTES: Definity (if used): ml Final [facility], Kulwant In artlab Xper Echopacs - 08/23/2018 2:45 PM EDT [address] [address] [place] [address] ----- ECHOCARDIOGRAPHY REPORT - [facility] ----- Name: CAT CARROLL Age: 83 years Date: 08/23/2018 Hospital #: : 1935 Room: [address] [place] [address] Rec #: [id number] Sex: F Tech: Marco Antonio Kern Ordering Physician: [id number] ELISABET WEAVER Height: 64.00 in Sys BP: 143 JACKSON cc: , Weight: 166.00 Stephanie BP: 81 Reading Physician: [id number] Marco Antonio Ansari Rhythm: Normal sinus MD/ rhythm Electronically Signed BSA: 1.81 m by: [id number] Marco Antonio Ansari MD on: 08/23/2018 Reason for Study: Abnormal ekg History: Conclusions: Mild segmental LV dysfunction with posterior and inferior wall motion abnormalities. Ejection fraction approximately 45 to 50%. No significant valvular heart disease identified. Findings: 1. Quality: Adequate. 2. Left Ventricle: Normal LV size. Basal and mid posterior, basal and mid inferior, inferoseptal severe hypokinesis. Impaired relaxation. Ejection fraction approximately 45 to 50%. 3. Left Atrium: Normal size. 4. Right Ventricle: Normal size and systolic function. 5. Right Atrium: Normal size. 6. Aortic Valve: Trileaflet and nonrestrictive. No significant insufficiency. 7. Mitral Valve: Normal appearance with trivial insufficiency. 8. Tricuspid Valve: Normal appearance. No significant insufficiency. 9. Pulmonic Valve: Grossly normal. No significant stenosis or insufficiency on Doppler. 10. Aortic Root: Nondilated. 11. Venous: Normal respiratory collapse of the inferior vena cava consistent with normal right atrial pressures. 12. Pericardium: No significant effusion identified. 13. Other: Prominent systolic forward flow on pulmonary vein Doppler Patient Values (normal ranges in parenthesis) 2-D Doppler RVd 3.20 cm (< 4.2) LVOT Diam 1.9 cm IVSd 1.17 cm DUNCAN 2.61 cm AV Vmax 1.1 m/s LVd 4.30 cm (4.2 - 5.8 Male) AV mean grad. 2.3 mmHg (3.8 - 5.2 Female) AV peak grad. 4.5 mmHg LVPWd 0.91 cm LVs 2.78 cm (2.5 - 3.6 Male) AR Vena Contracta (2.2 - 3.5 Female) MV A Vmax 1.00 m/s Ao Root Diameter (< 3.7 Male) MVA 3.4 cm2 (<3.3 Female) Ao Root Diameter 3.6 cm (< 3.7 Male) MV E Vmax 0.7 m/s (<3.3 Female) LVFS 35 % (28 - 41) MR ERO LV mass index 83 g/m (< 115 Male) RVSP 24.6 mmHg (< 95 Female) RVFW S' RWT 0.42 (< .42) TR Vmax 2.32 m/s LVEF MOD 4C 53.0 % RA Pressure 3 mmHg LVEF MOD 2C (52 - 72 Male) PV Vmax 0.91 m/s (54 - 74 Female) LA Index (BP) 28.1 ml/m TAPSE LAESV LOGGING EQUIPMENT OPERATOR NOTES: Definity (if used): ml Final IMPRESSION: Mild segmental LV dysfunction with posterior and inferior wall motion abnormalities. Ejection fraction approximately 45 to 50%. [facility] Lipaseon 08-23-2018 Lipase enzyme act/vol 105 U/L 73 - 393 U/L [facility] Magnesium Levelon 08-23-2018 Magnesium mass conc 2.1 mg/dL 1.6 - 2. 4 mg/dL [facility] NT Pro BNPon 08-23-2018 Interpretation and review of laboratory results Normal [facility] Natriuretic peptide.B prohormone N-Terminal mass conc 58 pg/mL 0 - 300 pg/mL [facility] Comment on above: Please note reference range change as of 02/24/18. Pride Study Cut-offs Rule In: < /= 50 Years >450 pg/mL 51 Years - 75 Years >900 pg/mL 76 Years - 99 Years >1800 pg/mL Rule Out: All patients <300 pg/mL [facility] Otheron 08-23-2018 Interpretation and review of laboratory results Normal [facility] Interpretation and review of laboratory results Normal [facility] POC Activated Clotting Timeo n 08-23-2018 Act Kaolin 153 seconds [facility] Act Kaolin 191 seconds [facility] PT/INRon 08-23-2018 INR Coag RelTime (PPP) 1.0 {INR} [facility] Prothrombin time (PT) Coag time (PPP) 13.2 s [facility] During the induction phase of oral anticoagulation, the INR may not reflect the anticoagulation status of the patient. Therapeutic ranges for INR's are: Most clinical situations: INR 2.0-3.0 Mechanical Prosthetic Valve: INR 2.5-3.5 Critical: INR >5.0 [facility] TROPONINon 08-23-2018 Interpretation and review of laboratory results Abnormal [facility] Troponin I.cardiac mass conc 68423 % Critically high <20% of Baseline Troponin [facility] Troponin I.cardiac mass conc 26718 ng/L Critically high <=45 [facility] Troponin I.cardiac mass conc Probable acute injury or myocardial infarction. [facility] Interpretation and review of laboratory results Abnormal [facility] Troponin I.cardiac mass conc 152 ng/L Critically high <=45 [facility] Troponin I.cardiac mass conc Possible acute cardiac injury. [facility] XR Chest 1 Viewon 08-23-2018 EXAMINATION: XR CHES T PA/AP HISTORY: ORDERING SYSTEM PROVIDED HISTORY: acute chest pain, TECHNOLOGIST PROVIDED HISTORY: Illness/Other Reason for exam: chest pain x several hours Cancer History: u Surgery, RadiationHistory: u Encounter Type: Initial Additional signs and symptoms: inferior mi per EKG. ORDERING SYSTEM PROVIDED DIAGNOSIS CODES: I21.[address] elevation myocardial infarction (STEMI) of inferolateral wall (HCC) COMPARISON: None. FINDINGS: Cardiomediastinal contours within normal limits. No focal consolidative process, pulmonary edema, pleural effusion, or pneumothorax. Osseous structures are intact. [facility] No acute cardiopulmo nary process. Workstation ID: [id number] [facility] Interface, Rad In Fu ji Speechq - 08/23/2018 6:33 AM EDT EXAMINATION: XR CHEST PA/AP HISTORY: ORDERING SYSTEM PROVIDED HISTORY: acute chest pain, TECHNOLOGIST PROVIDED HISTORY: Illness/Other Reason for exam: chest pain x several hours Cancer History: u Surgery, RadiationHistory: u Encounter Type: Initial Additional signs and symptoms: inferior mi per EKG. ORDERING SYSTEM PROVIDED DIAGNOSIS CODES: I21.[address] elevation myocardial infarction (STEMI) of inferolateral wall (HCC) COMPARISON: None. FINDINGS: Cardiomediastinal contours within normal limits. No focal consolidative process, pulmonary edema, pleural effusion, or pneumothorax. Osseous structures are intact. IMPRESSION: No acute cardiopulmonary process. Workstation ID: [id number] [facility] CT Abdomen/Pelvis w/o Contra ston 07-07-2018 CT Abdomen/Pelvis w/o Contrast Exam Date/Time: 07/06/2018 15:14 EDT Reason for Exam: UNSPECIFIED ABD PAIN R10.9 KIDNEY STONE PROTOCOL Report STUDY: CT Abdomen/Pelvis w/o Contrast; 07/06/2018 3:14 pm INDICATION: UNSPECIFIED ABD PAIN R10.9 KIDNEY STONE PROTOCOL. COMPARISON: 05/09/2014 ACCESSION NUMBER(S): [id number] ORDERING CLINICIAN: Caitie Mclaughlin TECHNIQUE: Contiguous axial images were obtained through the abdomen and pelvis without the use of contrast. Coronal and sagittal reconstructions were performed. FINDINGS: LOWER CHEST: Images through the lung bases demonstrate mild atelectasis. ABDOMEN AND PELVIS: LIVER: 1.2 cm hypoattenuating lesion noted within the medial segment of left hepatic lobe, not adequately characterized on this unenhanced exam, but unchanged, and most likely benign given its stability. BILE DUCTS: Not abnormally dilated. GALLBLADDER: The gallbladder is surgically absent. PANCREAS: Appears unremarkable. SPLEEN: Calcified granulomas noted. ADRENAL GLANDS: Appear unremarkable. KIDNEYS, URETERS, AND BLADDER: Exam Date/Time: 07/06/2018 15:14 EDT Report No radiopaque calculi are identified within the kidneys. There is no evidence of hydronephrosis. The urinary bladder appears grossly unremarkable. BOWEL: There is colonic diverticulosis. No evidence of diverticulitis. Small bowel loops appear normal in course and caliber. There is no evidence of a bowel obstruction. Appendix is normal in caliber. Although CT has limited sensitivity and specificity for gastric pathology, the stomach appears grossly unremarkable. RETROPERITONEUM, VESSELS: There is no aneurysmal dilatation of the abdominal aorta. The IVC is within normal limits. There are atherosclerotic calcifications of the aorta and its branches. No pathologically enlarged retroperitoneal lymph nodes are noted. PERITONEUM: There is no evidence of pneumoperitoneum. No ascites or loculated fluid collection noted. No pathologically enlarged mesenteric lymph nodes are identified. ABDOMINAL WALL, SOFT TISSUES: No acute process. SKELETON: Osteopenia. Degenerative changes. Postsurgical changes. No acute process. IMPRESSION: No evidence of nephrolithiasis or hydronephrosis. No signs of obstructive uropathy. Colonic diverticulosis. Additional findings as described above. FINAL REPORT Dictated: 07/07/2018 10:23 am Javid Walker MD Signed (Electronic Signature): 07/07/2018 10:23 am Signed by: Javid Walker MD Technologist: DENISE Normal [facility] POC Urinalysis Dipstickon Bilirubin Ql (U) Negative Negative [facility] Glucose Ql (U) Negative Normal, Negative mg/dL [facility] Hemoglobin Ql (U) Trace-lysed Abnormal Negative [facility] Interpretation and review of laboratory results Abnormal [facility] Ketones Ql (U) Negative Negative mg/dL [facility] Leukocyte esterase Test strip Ql (U) Trace Abnormal Negative [facility] Nitrite Ql (U) Negative Negative [facility] pH (U) 6.0 [pH] [facility] Protein Ql (U) Negative Negative mg/dL [facility] Specific gravity (U) [Rel density] 1.020 [facility] Urobilinogen Qn (U) 0.2 mg/dL <2.0, 0. 2, Normal, Negative, 1.0, 2.0, <1.0 [facility] Comprehensive Metabolic Pane raffi 06-23-2018 Albumin mass conc 3.6 g/dL 3.2 - 5.2 g/dL [facility] ALP enzyme act/vol 112 U/L 40 - 150 U/L [facility] ALT enzyme act/vol 27 U/L 14 - 65 U/L [facility] Anion gap molar conc 12 mmol/L 10 - 20 mmol/L [facility] AST enzyme act/vol 15 U/L 0 - 45 U/L [facility] Bilirubin mass conc 0.3 mg/dL 0 - 1.3 mg/dL [facility] Calcium mass conc 8.9 mg/dL 8.4 - 10.2 mg/dL [facility] Chloride molar conc 108 mmol/L 98 - 108 mmol/L [facility] Creatinine mass conc 1.12 mg/dL 0.6 - 1.2 mg/dL [facility] GFR/1.73 sq M predicted among non-blacks MDRD vol rate/area (S/P/Bld) The eGFR should be used for monitoring renal function only and not for medication dosing. [facility] GFR/1.73 sq M.predicted CKD-EPI vol rate/area (S/P/Bld) 46 Low >=60 mL/min/1.7 3 m2 [facility] Glucose mass conc 116 mg/dL High 65 - 99 mg/dL [facility] HCO3 molar conc 23 mmol/L 21 - 32 mmol/L [facility] Interpretation and review of laboratory results Abnormal [facility] Potassium molar conc 4.0 mmol/L 3.5 - 5.1 mmol/L [facility] Protein mass conc 7.3 g/dL 6 - 8 g/dL [facility] Sodium molar conc 139 mmol/L 135 - 145 mmol/L [facility] Urea nitrogen mass conc 23 mg/dL 8 - 25 mg/dL [facility] Urea nitrogen/Creatinine mass ratio 20.5 mg/mg High [facility] POC Urinalysis Dipstickon Bilirubin Ql (U) Negative Negative [facility] Glucose Ql (U) Negative Normal, Negative mg/dL [facility] Hemoglobin Ql (U) Trace-intact Abnormal Negative [facility] ealt Interpretation and review of laboratory results Abnormal [facility] Ketones Ql (U) Negative Negative mg/dL [facility] Leukocyte esterase Test strip Ql (U) Trace Abnormal Negative [facility] Nitrite Ql (U) Positive Abnormal Negative [facility] pH (U) 6.5 [pH] [facility] Protein Ql (U) Negative Negative mg/dL [facility] Specific gravity Relative Density (U) 1.015 [facility] Urobilinogen Qn (U) 0.2 mg/dL <2.0, 0. 2, Normal, Negative, 1.0, 2.0, <1.0 [facility] VITAMIN D, TOTAL, 25-OHon 25-Hydroxyvitamin D2+25-Hydroxyvitami n D3 mass conc 48 ng/mL 30 - 100 ng/mL [facility] Comment on above: Vitamin D status: Deficiency: <20 ng/mL Insufficiency: 20-30 ng/mL Sufficiency: 30-100 ng/mL Toxicity: >100 ng/mL Please note that Fluorescein which is used in angiography has been shown to falsely elevate the results of Vitamin D with our current assay. Evidence suggests that patients undergoing fluorescein dye angiography can retain small amounts of fluorescein in the body for up to 48 to 72 hours post-treatment. In the cases of patients with renal insufficiency, retention could be much longer. Samples should be resubmitted post fluorescein clearance to ensure there is no interference with the Vitamin D test result. Interpretation and review of laboratory results Normal [facility] Assay performed tyree Brandt's chemiluminescence methodology. [facility] 25-Hydroxy D Totalon 019 25-Hydroxy D Total 97 ng/mL Normal 30-100 [facility] Comment on above: Result Comment: Plemadie contreras note that Fluorescein which is used in angiography has been shown to falsely elevate the results of Vitamin D with our current assay. Evidence suggests that patients undergoing fluorescein dye angiography can retain small amounts of fluorescein in the body for up to 48 to 72 hours post-treatment. In the cases of patients with renal insufficiency, retention could be much longer. Samples should be resubmitted post fluorescein clearance to ensure there is no interference with the Vitamin D test result. Vitamin D Status Range: Deficiency < 20 ng/mL Insufficiency 20-30 ng/mL Sufficiency 30-100 ng/mL Toxicity > 100 ng/mL Performed By: #### V D25TOT, CHEM8, MG #### Unless otherwise noted, all testing performed by [facility] [place] [address] [place], [place] [address] CLIA: [id number] Screening Unit Registered Nurse: Bhupendra Márquez M.D. Basic Metabolic Panelon 03-09 Calcium mass conc 9.0 mg/dL Invalid Interpretation Code 8.4 - 10.2 mg/dL [facility] Chloride molar conc 106 mmol/L Invalid Interpretation Code 98 - 108 mmol/L [facility] CO2 molar conc 25 mmol/L Invalid Interpretation Code 21 - 32 mmol/L [facility] Creatinine mass conc 0.95 mg/dL Invalid Interpretation Code 0.6 - 1.2 mg/dL [facility] GFR/1.73 sq M predicted among blacks MDRD vol rate/area (S/P/Bld) mL/min/{1.73_m2} Invalid Interpretation Code ml/min/1.7 3sq.m [facility] Comment on above: GFR Calc GFR/1.73 sq M predicted among non-blacks MDRD vol rate/area (S/P/Bld) 57 mL/min/{1.73_m2} Low >60 ml/min/1.7 3sq.m [facility] Comment on above: Non- GFR Calc eGFR is an estimated Glomerular Filtration Rate based on the value of the patient's serum creatinine. In outpatients, eGFR should be used as a helpful tool in screening for CKD. In inpatients or patients with acute renal failure, eGFR represents the GFR at the moment of the draw and should be used with caution. Glucose mass conc 105 mg/dL High 70 - 99 mg/dL [facility] Comment on above: This test result brigitte ht be falsely depressed or falsely elevated on samples drawn from patients taking Sulfasalazine and Sulfapyridine. Venipuncture should occur prior to taking either of these drugs. Interpretation and review of laboratory results Abnormal Invalid Interpretation Code [facility] Potassium molar conc 4.1 mmol/L Invalid Interpretation Code 3.5 - 5.1 mmol/L [facility] Sodium molar conc 137 mmol/L Invalid Interpretation Code 135 - 145 mmol/L [facility] Urea nitrogen mass conc 14 mg/dL Invalid Interpretation Code 8 - 25 mg/dL [facility] Calcium mass conc 9.0 mg/dL Normal 8.4-10.2 [facility] Comment on above: Performed By: #### V D25TOT, CHEM8, MG #### Unless otherwise noted, all testing performed by [place] [address] CLIA: [id number] Screening Unit Registered Nurse: Bhupendra Márquez M.D. Chloride molar conc 106 mmol/L Normal 98-108 [facility] Comment on above: Performed By: #### V D25TOT, CHEM8, MG #### Unless otherwise noted, all testing performed by [place] [address] CLIA: [id number] Screening Unit Registered Nurse: Bhupendra Márquez M.D. CO2 molar conc 25 mmol/L Normal 21-32 [facility] Comment on above: Performed By: #### V D25TOT, CHEM8, MG #### Unless otherwise noted, all testing performed by [place] [address] CLIA: [id number] Screening Unit Registered Nurse: Bhupendra Márquez M.D. Creatinine mass conc 0.95 mg/dL Normal 0.60-1.20 [facility] Comment on above: Performed By: #### V D25TOT, CHEM8, MG #### Unless otherwise noted, all testing performed by [address] [place] [address] CLIA: [id number] Screening Unit Registered Nurse: Bhupendra Márquez M.D. GFR/1.73 sq M predicted among blacks MDRD vol rate/area (S/P/Bld) mL/min/{1.73_m2} Normal [facility] Comment on above: Result Comment: Afri can Haitian GFR Calc Performed By: #### V D25TOT, CHEM8, MG #### Unless otherwise noted, all testing performed by [place] [address] CLIA: [id number] Screening Unit Registered Nurse: Bhupendra Márquez M.D. GFR/1.73 sq M predicted among non-blacks MDRD vol rate/area (S/P/Bld) 57 mL/min/{1.73_m2} Low >60 [facility] Comment on above: Result Comment: Non- GFR Calc eGFR is an estimated Glomerular Filtration Rate based on the value of the patient's serum creatinine. In outpatients, eGFR should be used as a helpful tool in screening for CKD. In inpatients or patients with acute renal failure, eGFR represents the GFR at the moment of the draw and should be used with caution. Performed By: #### V D25TOT, CHEM8, MG #### Unless otherwise noted, all testing performed by [place] [address] CLIA: [id number] Screening Unit Registered Nurse: Bhupendra Márquez M.D. Glucose mass conc 105 mg/dL High 70-99 [facility] Comment on above: Result Comment: This test result might be falsely depressed or falsely elevated on samples drawn from patients taking Sulfasalazine and Sulfapyridine. Venipuncture should occur prior to taking either of these drugs. Performed By: #### V D25TOT, CHEM8, MG #### Unless otherwise noted, all testing performed by [address] [place], [place] [address] CLIA: [id number] Screening Unit Registered Nurse: Bhupendra Márquez M.D. Potassium molar conc 4.1 mmol/L Normal 3.5-5.1 [facility] Comment on above: Performed By: #### V D25TOT, CHEM8, MG #### Unless otherwise noted, all testing performed by [place] [address] CLIA: [id number] Screening Unit Registered Nurse: Bhupendra Márquez M.D. Sodium molar conc 137 mmol/L Normal 135-145 [facility] Comment on above: Performed By: #### V D25TOT, CHEM8, MG #### Unless otherwise noted, all testing performed by [place] [address] CLIA: [id number] Screening Unit Registered Nurse: Bhupendra Márquez M.D. Urea nitrogen mass conc 14 mg/dL Normal 8-25 [facility] Comment on above: Performed By: #### V D25TOT, CHEM8, MG #### Unless otherwise noted, all testing performed by [place] [address] CLIA: [id number] Screening Unit Registered Nurse: Bhupendra Márquez M.D. Magnesiumon 03-22-2018 Magnesium mass conc 1.7 mg/dL Normal 1.6-2.4 [facility] Comment on above: Performed By: #### V D25TOT, CHEM8, MG #### Unless otherwise noted, all testing performed by [place] [address] CLIA: [id number] Screening Unit Registered Nurse: Bhupendra Márquez M.D. Magnesium Levelon 03-22-2018 Magnesium mass conc 1.7 mg/dL Invalid Interpretation Code 1.6 - 2.4 mg/dL [facility] VITAMIN D, TOTAL, 25-OHon Vitamin D, 25-Hydroxy, Total 97 ng/mL Invalid Interpretation Code 30 - 100 ng/mL [facility] Comment on above: Please note that Flu orescein which is used in angiography has been shown to falsely elevate the results of Vitamin D with our current assay. Evidence suggests that patients undergoing fluorescein dye angiography can retain small amounts of fluorescein in the body for up to 48 to 72 hours post-treatment. In the cases of patients with renal insufficiency, retention could be much longer. Samples should be resubmitted post fluorescein clearance to ensure there is no interference with the Vitamin D test result. Vitamin D Status Range: Deficiency < 20 ng/mL Insufficiency 20-30 ng/mL Sufficiency 30-100 ng/mL Toxicity > 100 ng/mL Basic Metabolic Panelon 10- Calcium mass conc 9.1 mg/dL Normal 8.4-10.2 [facility] Comment on above: Performed By: #### C HEM8 #### Unless otherwise noted, all testing performed by [place] [address] CLIA: [id number] Screening Unit Registered Nurse: Bhupendra Márquez M.D. Chloride molar conc 109 mmol/L High 98-108 [facility] Comment on above: Performed By: #### C HEM8 #### Unless otherwise noted, all testing performed by [place] [address] CLIA: [id number] Screening Unit Registered Nurse: Bhupendra Márquez M.D. CO2 molar conc 26 mmol/L Normal 21-32 [facility] Comment on above: Performed By: #### C HEM8 #### Unless otherwise noted, all testing performed by [place] [address] CLIA: [id number] Screening Unit Registered Nurse: Bhupendra Márquez M.D. Creatinine mass conc 1.10 mg/dL Normal 0.60-1.20 [facility] Comment on above: Performed By: #### C HEM8 #### Unless otherwise noted, all testing performed by [place] [address] CLIA: [id number] Screening Unit Registered Nurse: Bhupendra Márquez M.D. GFR/1.73 sq M predicted among blacks MDRD vol rate/area (S/P/Bld) 58 mL/min/{1.73_m2} Low >60 [facility] Comment on above: Result Comment: Afri can Haitian GFR Calc Performed By: #### C HEM8 #### Unless otherwise noted, all testing performed by [place] [address] CLIA: [id number] Screening Unit Registered Nurse: Bhupendra Márquez M.D. GFR/1.73 sq M predicted among non-blacks MDRD vol rate/area (S/P/Bld) 48 mL/min/{1.73_m2} Low >60 [facility] Comment on above: Result Comment: Non- GFR Calc eGFR is an estimated Glomerular Filtration Rate based on the value of the patient's serum creatinine. In outpatients, eGFR should be used as a helpful tool in screening for CKD. In inpatients or patients with acute renal failure, eGFR represents the GFR at the moment of the draw and should be used with caution. Performed By: #### C HEM8 #### Unless otherwise noted, all testing performed by [place] [address] CLIA: [id number] Screening Unit Registered Nurse: Bhupendra Márquez M.D. Glucose mass conc 113 mg/dL High 70-99 [facility] Comment on above: Result Comment: This test result might be falsely depressed or falsely elevated on samples drawn from patients taking Sulfasalazine and Sulfapyridine. Venipuncture should occur prior to taking either of these drugs. Performed By: #### C HEM8 #### Unless otherwise noted, all testing performed by [place] [address] CLIA: [id number] Screening Unit Registered Nurse: Bhupendra Márquez M.D. Potassium molar conc 4.3 mmol/L Normal 3.5-5.1 [facility] Comment on above: Performed By: #### C HEM8 #### Unless otherwise noted, all testing performed by [place] [address] CLIA: [id number] Screening Unit Registered Nurse: Bhupendra Márquez M.D. Sodium molar conc 142 mmol/L Normal 135-145 [facility] Comment on above: Performed By: #### C HEM8 #### Unless otherwise noted, all testing performed by [place] [address] CLIA: [id number] Screening Unit Registered Nurse: Bhupendra Márquez M.D. Urea nitrogen mass conc 23 mg/dL Normal 8-25 [facility] Comment on above: Performed By: #### C HEM8 #### Unless otherwise noted, all testing performed by [place] [address] CLIA: [id number] Screening Unit Registered Nurse: Bhupendra Márquez M.D. US Renal and Bladderon 10-28 Interpretation and review of laboratory results Abnormal Invalid Interpretation Code ONBASE 1. No nephrolithiasi s or hydronephrosis 2. Simple left renal sinus cysts, measuring up to 1.5cm. 3. No significant postvoid residual. Invalid Interpretation Code ONBASE POC Urinalysis Dipstickon Bilirubin Ql (U) Negative Invalid Interpretation Code Negative [facility] Glucose Ql (U) Negative Invalid Interpretation Code Normal, Negative mg/dL [facility] Hemoglobin Test strip Ql (U) Negative Invalid Interpretation Code Negative [facility] Interpretation and review of laboratory results Normal Invalid Interpretation Code [facility] Ketones Ql (U) Negative Invalid Interpretation Code Negative mg/dL [facility] Leukocyte esterase Test strip Ql (U) Negative Invalid Interpretation Code Negative [facility] Nitrite Test strip Ql (U) Negative Invalid Interpretation Code Negative [facility] pH Test strip (U) 6.0 [pH] Invalid Interpretation Code [facility] Protein Test strip Ql (U) Negative Invalid Interpretation Code Negative mg/dL [facility] Specific gravity Relative Density (U) 1.015 Invalid Interpretation Code [facility] Urobilinogen Test strip Qn (U) 0.2 mg/dL Invalid Interpretation Code <2.0, 0.2, Normal, Negative, 1.0, 2.0, <1.0 [facility] Culture, Urineon 10-12-2017 Culture, Urine Test Name: Culture, Urine Culture Status: Final Micro Source: Urine - clean catch ORGANISM ID: 1 - >100,000 CFU/ml ESCHERICHIA COLI AVOID fluoroquinolone treatment whenever possible. Risk of serious side effects may outweigh benefit. ANTIBIOTIC INTERPRETATION PATEL STATUS Ampicillin S 8 F Amp/Sulbactam S 4 F Cefazolin S <= 4 F Cefepime S <= 1 F Ceftazidime S <= 1 F Ceftriaxone S <= 1 F Ciprofloxacin S <= 0.25 F Gentamicin S <= 1 F Nitrofurantoin S <= 16 F Piperacillin/Tazo S <= 4 F Tobramycin S <= 1 F Trimeth/Sulfa S <= 20 F Normal [facility] Comment on above: Performed By: #### U RCUL #### Unless otherwise noted, all testing performed by [facility] [address] [address] CLIA: [id number] Screening Unit Registered Nurse: Bhupendra Márquez M.D. POC Urinalysis Dipstickon Bilirubin Ql (U) Negative Invalid Interpretation Code Negative [facility] Glucose Ql (U) Negative Invalid Interpretation Code Normal, Negative mg/dL [facility] Hemoglobin Test strip Ql (U) Trace-lysed Abnormal Negative [facility] Interpretation and review of laboratory results Abnormal Invalid Interpretation Code [facility] Ketones Ql (U) Negative Invalid Interpretation Code Negative mg/dL [facility] Leukocyte esterase Test strip Ql (U) Small Abnormal Negative [facility] Nitrite Test strip Ql (U) Positive Abnormal Negative [facility] pH Test strip (U) 6.0 [pH] Invalid Interpretation Code 5.0 - 7.0 [facility] Protein Test strip Ql (U) Negative Invalid Interpretation Code Negative mg/dL [facility] Specific gravity Relative Density (U) 1.015 1 Invalid Interpretation Code 1.005 - 1.025 [facility] Urobilinogen Test strip Qn (U) 0.2 mg/dL Invalid Interpretation Code <2.0, 0.2, Normal, Negative, 1.0, 2.0, <1.0 [facility] Culture, Urineon 09-08-2017 Culture, Urine Test Name: Culture, Urine Culture Status: Final Micro Source: Urine ORGANISM ID: 1 - >100,000 CFU/ml ESCHERICHIA COLI AVOID fluoroquinolone treatment whenever possible. Risk of serious side effects may outweigh benefit. ANTIBIOTIC INTERPRETATION PATEL STATUS Ampicillin S <= 2 F Amp/Sulbactam S <= 2 F Cefazolin S <= 4 F Cefepime S <= 1 F Ceftazidime S <= 1 F Ceftriaxone S <= 1 F Ciprofloxacin S <= 0.25 F Gentamicin S <= 1 F Nitrofurantoin S <= 16 F Piperacillin/Tazo S <= 4 F Tobramycin S <= 1 F Trimeth/Sulfa S <= 20 F Normal [facility] Comment on above: Performed By: #### U RCUL #### Unless otherwise noted, all testing performed by [place] [address] CLIA: [id number] Screening Unit Registered Nurse: Bhupendra Márquez M.D. Microalbumin, Ur Random Pane raffi 09-08-2017 Creatinine, Urine Random 77.70 mg/dL Normal [facility] Comment on above: Result Comment: No e stablished reference range. Performed By: #### M IALBURR #### Unless otherwise noted, all testing performed by [place] [address] CLIA: [id number] Screening Unit Registered Nurse: Bhupendra Márquez M.D. MIALB/Creatinine Ratio 14 Normal 0.0-25.0 [facility] Comment on above: Performed By: #### M FAWAD #### Unless otherwise noted, all testing performed by [place] [address] CLIA: [id number] Screening Unit Registered Nurse: Bhupendra Márquez M.D. Microalbumin, Urine Random 1.1 mg/dL Normal 0.0-1.8 [facility] Comment on above: Performed By: #### M IALAIDAR #### Unless otherwise noted, all testing performed by [place] [address] CLIA: [id number] Screening Unit Registered Nurse: Bhupendra Márquez M.D. POC Urinalysis Dipstickon Bilirubin Ql (U) Negative Invalid Interpretation Code Negative [facility] Glucose Ql (U) Negative Invalid Interpretation Code Normal, Negative mg/dL [facility] Hemoglobin Test strip Ql (U) Trace-lysed Abnormal Negative [facility] Interpretation and review of laboratory results Abnormal Invalid Interpretation Code [facility] Ketones Ql (U) Negative Invalid Interpretation Code Negative mg/dL [facility] Leukocyte esterase Test strip Ql (U) Small Abnormal Negative [facility] Nitrite Test strip Ql (U) Positive Abnormal Negative [facility] pH Test strip (U) 5.5 [pH] Invalid Interpretation Code 5.0 - 7.0 [facility] Protein Test strip Ql (U) Negative Invalid Interpretation Code Negative mg/dL [facility] Specific gravity Relative Density (U) 1.015 1 Invalid Interpretation Code 1.005 - 1.025 [facility] Urobilinogen Test strip Qn (U) 0.2 mg/dL Invalid Interpretation Code <2.0, 0.2, Normal, Negative, 1.0, 2.0, <1.0 [facility] Basic Metabolic Panelon 04-0 Calcium 8.9 mg/dL Normal 8.4-10.2 [facility] Comment on above: Performed By: #### C HEM8, CBCDIF #### Unless otherwise noted, all testing performed by [address] [place], [place] [address] CLIA: [id number] Screening Unit Registered Nurse: Bhupendra Márquez M.D. Chloride 110 mmol/L High 98-108 [facility] Comment on above: Performed By: #### C HEM8, CBCDIF #### Unless otherwise noted, all testing performed by [place] [address] CLIA: [id number] Screening Unit Registered Nurse: Bhupendra Márquez M.D. CO2 25 mmol/L Normal 21-32 [facility] Comment on above: Performed By: #### C HEM8, CBCDIF #### Unless otherwise noted, all testing performed by [place] [address] CLIA: [id number] Screening Unit Registered Nurse: Bhupendra Márquez M.D. Creatinine 1.14 mg/dL Normal 0.60-1.20 [facility] Comment on above: Performed By: #### C HEM8, CBCDIF #### Unless otherwise noted, all testing performed by [place] [address] CLIA: [id number] Screening Unit Registered Nurse: Bhupendra Márquez M.D. eGFR (black) 55 mL/min/{1.73_m2} Low >60 [facility] Comment on above: Result Comment: Afri can Haitian GFR Calc Performed By: #### C HEM8, CBCDIF #### Unless otherwise noted, all testing performed by [place] [address] CLIA: [id number] Screening Unit Registered Nurse: Bhupendra Márquez M.D. eGFR (non-black) 46 mL/min/{1.73_m2} Low >60 [facility] Comment on above: Result Comment: Non- GFR Calc eGFR is an estimated Glomerular Filtration Rate based on the value of the patient's serum creatinine. In outpatients, eGFR should be used as a helpful tool in screening for CKD. In inpatients or patients with acute renal failure, eGFR represents the GFR at the moment of the draw and should be used with caution. Performed By: #### C HEM8, CBCDIF #### Unless otherwise noted, all testing performed by [place] [address] CLIA: [id number] Screening Unit Registered Nurse: Bhupendra Márquez M.D. Glucose 97 mg/dL Invalid Interpretation Code 70 - 99 mg/dL [facility] Glucose mass conc 97 mg/dL Normal 70-99 [facility] Comment on above: Result Comment: This test result might be falsely depressed or falsely elevated on samples drawn from patients taking Sulfasalazine and Sulfapyridine. Venipuncture should occur prior to taking either of these drugs. Performed By: #### C HEM8, CBCDIF #### Unless otherwise noted, all testing performed by [place] [address] CLIA: [id number] Screening Unit Registered Nurse: Bhupendra Márquez M.D. Potassium 4.6 mmol/L Normal 3.5-5.1 [facility] Comment on above: Performed By: #### C HEM8, CBCDIF #### Unless otherwise noted, all testing performed by [place] [address] CLIA: [id number] Screening Unit Registered Nurse: Bhupendra Márquez M.D. Sodium 142 mmol/L Normal 135-145 [facility] Comment on above: Performed By: #### C HEM8, CBCDIF #### Unless otherwise noted, all testing performed by [place] [address] CLIA: [id number] Screening Unit Registered Nurse: Bhupendra Márquez M.D. Urea nitrogen 17 mg/dL Normal 8-25 [facility] Comment on above: Performed By: #### C HEM8, CBCDIF #### Unless otherwise noted, all testing performed by [place] [address] CLIA: [id number] Screening Unit Registered Nurse: Bhupendra Márquez M.D. CBC and Differentialon 06-09 Basophils 0.0 K/mcL Invalid Interpretation Code 0 - 0.2 [facility] Basophils 0.6 % Invalid Interpretation Code [facility] Eosinophils 0.1 K/mcL Invalid Interpretation Code 0 - 0.5 [facility] Erythrocytes (RBC) 4.50 M/mcL Invalid Interpretation Code 3.7 - 5.0 [facility] Hematocrit (HCT) 40.8 % Invalid Interpretation Code 34.4 - 44.8 % [facility] Hemoglobin (HGB) 13.1 g/dL Normal 11.6-15.4 [facility] Comment on above: Performed By: #### C HEM8, CBCDIF #### Unless otherwise noted, all testing performed by [place] [address] CLIA: [id number] Screening Unit Registered Nurse: Bhupendra Márquez M.D. Interpretation and review of laboratory results Abnormal Invalid Interpretation Code [facility] Lymphocytes 3.4 K/mcL Invalid Interpretation Code 1.0 - 3.7 [facility] MCH 29.1 pg Invalid Interpretation Code 27.9 - 33.9 pg [facility] MCHC 32.1 g/dL Low 33.1 - 35.1 g/dL [facility] MCV 90.6 fL Invalid Interpretation Code 82.6 - 98.9 [facility] Monocytes 0.6 K/mcL Invalid Interpretation Code 0.1 - 0.6 [facility] Neutrophils 2.9 K/mcL Invalid Interpretation Code 1.2 - 6.9 [facility] Platelet mean volume (PMV) 9.8 fL Invalid Interpretation Code 7.0 - 10.6 [facility] Platelets 224 K/mcL Invalid Interpretation Code 162 - 402 [facility] RDW-CA 14.7 % High 10 - 14.4 % [facility] Segmented Neut 40.9 % Invalid Interpretation Code [facility] T8 suppressor/100 cells 2.1 10*3/uL Invalid Interpretation Code [facility] T8 suppressor/100 cells 48.1 10*3/uL Invalid Interpretation Code [facility] T8 suppressor/100 cells 8.3 10*3/uL Invalid Interpretation Code [facility] WBC (Leukocytes) 7.0 K/mcL Invalid Interpretation Code 3.4 - 10.6 [facility] CBC with Diffon 06-09-2017 Basophils #/vol (Bld) 0.0 K/mcL Normal 0-0.2 [facility] Comment on above: Performed By: #### C HEM8, CBCDIF #### Unless otherwise noted, all testing performed by [place] [address] CLIA: [id number] Screening Unit Registered Nurse: Bhupendra Márquez M.D. Basophils/100 WBC (Bld) 0.6 % Normal [facility] Comment on above: Performed By: #### C HEM8, CBCDIF #### Unless otherwise noted, all testing performed by [place] [address] CLIA: [id number] Screening Unit Registered Nurse: Bhupendra Márquez M.D. Eosinophils #/vol (Bld) 0.1 K/mcL Normal 0-0.5 [facility] Comment on above: Performed By: #### C HEM8, CBCDIF #### Unless otherwise noted, all testing performed by [place] [address] CLIA: [id number] Screening Unit Registered Nurse: Bhupendra Márquez M.D. Eosinophils/100 WBC (Bld) 2.1 % Normal [facility] Comment on above: Performed By: #### C HEM8, CBCDIF #### Unless otherwise noted, all testing performed by [place] [address] CLIA: [id number] Screening Unit Registered Nurse: Bhupendra Márquez M.D. Erythrocyte distribution width Ratio (RBC) 14.7 % High 10.0-14.4 [facility] Comment on above: Performed By: #### C HEM8, CBCDIF #### Unless otherwise noted, all testing performed by [place] [address] CLIA: [id number] Screening Unit Registered Nurse: Bhupendra Márquez M.D. Hematocrit Volume Fraction (Bld) 40.8 % Normal 34.4-44.8 [facility] Comment on above: Performed By: #### C HEM8, CBCDIF #### Unless otherwise noted, all testing performed by [place] [address] CLIA: [id number] Screening Unit Registered Nurse: Bhupendra Márquez M.D. Lymphocytes #/vol (Bld) 3.4 K/mcL Normal 1.0-3.7 [facility] Comment on above: Performed By: #### C HEM8, CBCDIF #### Unless otherwise noted, all testing performed by [place] [address] CLIA: [id number] Screening Unit Registered Nurse: Bhupendra Márquez M.D. Lymphocytes/100 WBC (Bld) 48.1 % Normal [facility] Comment on above: Performed By: #### C HEM8, CBCDIF #### Unless otherwise noted, all testing performed by [place] [address] CLIA: [id number] Screening Unit Registered Nurse: Bhupendra Márquez M.D. MCH Entitic mass (RBC) 29.1 pg Normal 27.9-33.9 [facility] Comment on above: Performed By: #### C HEM8, CBCDIF #### Unless otherwise noted, all testing performed by [place] [address] CLIA: [id number] Screening Unit Registered Nurse: Bhupendra Márquez M.D. MCHC mass conc (RBC) 32.1 g/dL Low 33.1-35.1 [facility] Comment on above: Performed By: #### C HEM8, CBCDIF #### Unless otherwise noted, all testing performed by [place] [phone] CLIA: [id number] Screening Unit Registered Nurse: Bhupendra Márquez M.D. MCV Entitic volume (RBC) 90.6 fL Normal 82.6-98.9 [facility] Comment on above: Performed By: #### C HEM8, CBCDIF #### Unless otherwise noted, all testing performed by [place] [phone] CLIA: [id number] Screening Unit Registered Nurse: Bhupendra Márquez M.D. Monocytes #/vol (Bld) 0.6 K/mcL Normal 0.1-0.6 [facility] Comment on above: Performed By: #### C HEM8, CBCDIF #### Unless otherwise noted, all testing performed by [place] [phone] CLIA: [id number] Screening Unit Registered Nurse: Bhupendra Márquez M.D. Monocytes/100 WBC (Bld) 8.3 % Normal [facility] Comment on above: Performed By: #### C HEM8, CBCDIF #### Unless otherwise noted, all testing performed by [place] [address] CLIA: [id number] Screening Unit Registered Nurse: Bhupendra Márquez M.D. Neutrophils #/vol (Bld) 2.9 K/mcL Normal 1.2-6.9 [facility] Comment on above: Performed By: #### C HEM8, CBCDIF #### Unless otherwise noted, all testing performed by [place] [address] CLIA: [id number] Screening Unit Registered Nurse: Bhupendra Márquez M.D. Platelet mean volume Entitic volume (Bld) 9.8 fL Normal 7.0-10.6 [facility] Comment on above: Performed By: #### C HEM8, CBCDIF #### Unless otherwise noted, all testing performed by [place] [address] CLIA: [id number] Screening Unit Registered Nurse: Bhupendra Márquez M.D. Platelets #/vol (Bld) 224 K/mcL Normal 162-402 [facility] Comment on above: Performed By: #### C HEM8, CBCDIF #### Unless otherwise noted, all testing performed by [place] [address] CLIA: [id number] Screening Unit Registered Nurse: Bhupendra Márquez M.D. RBC #/vol (Bld) 4.50 M/mcL Normal 3.7-5.0 [facility] Comment on above: Performed By: #### C HEM8, CBCDIF #### Unless otherwise noted, all testing performed by [place] [address] CLIA: [id number] Screening Unit Registered Nurse: Bhupendra Márquez M.D. Segmented Neut % 40.9 % Normal [facility] Comment on above: Performed By: #### C HEM8, CBCDIF #### Unless otherwise noted, all testing performed by [place] [address] CLIA: [id number] Screening Unit Registered Nurse: Bhupendra Márquez M.D. WBC #/vol (Bld) 7.0 K/mcL Normal 3.4-10.6 [facility] Comment on above: Performed By: #### C HEM8, CBCDIF #### Unless otherwise noted, all testing performed by [place] [address] CLIA: [id number] Screening Unit Registered Nurse: Bhupendra Márquez M.D. POC Influenza A/Bon 01-28-20 Interpretation and review of laboratory results Normal Invalid Interpretation Code [facility] Work Phone: Rapid Influenza A/B Ag Negative Invalid Interpretation Code Negative [facility] Work Phone: Basic Metabolic Panelon 12-07 Calcium mass conc 9.0 mg/dL Invalid Interpretation Code 8.4 - 10.2 mg/dL [facility] Chloride molar conc 107 mmol/L Invalid Interpretation Code 98 - 108 mmol/L [facility] CO2 molar conc 22 mmol/L Invalid Interpretation Code 21 - 32 mmol/L [facility] Creatinine mass conc 1.29 mg/dL High 0.6 - 1.2 mg/dL [facility] GFR/1.73 sq M predicted among blacks MDRD vol rate/area (S/P/Bld) 48 mL/min/{1.73_m2} Low >60 [facility] Comment on above: GFR Calc GFR/1.73 sq M predicted among non-blacks MDRD vol rate/area (S/P/Bld) 40 mL/min/{1.73_m2} Low >60 [facility] Comment on above: Non- GFR Calc eGFR is an estimated Glomerular Filtration Rate based on the value of the patient's serum creatinine. In outpatients, eGFR should be used as a helpful tool in screening for CKD. In inpatients or patients with acute renal failure, eGFR represents the GFR at the moment of the draw and should be used with caution. Glucose mass conc 99 mg/dL Invalid Interpretation Code 70 - 99 mg/dL [facility] Comment on above: This test result brigitte ht be falsely depressed or falsely elevated on samples drawn from patients taking Sulfasalazine and Sulfapyridine. Venipuncture should occur prior to taking either of these drugs. Potassium molar conc 4.5 mmol/L Invalid Interpretation Code 3.5 - 5.1 mmol/L [facility] Sodium molar conc 138 mmol/L Invalid Interpretation Code 135 - 145 mmol/L [facility] Urea nitrogen mass conc 14 mg/dL Invalid Interpretation Code 8 - 25 mg/dL [facility] CBC and Differentialon 12-19 Basophils Auto #/vol (Bld) 0.0 K/mcL Invalid Interpretation Code 0 - 0.2 [facility] Basophils/100 WBC Auto (Bld) 0.8 % Invalid Interpretation Code [facility] Eosinophils Auto #/vol (Bld) 0.2 K/mcL Invalid Interpretation Code 0 - 0.5 [facility] Eosinophils/100 WBC Auto (Bld) 3.7 % Invalid Interpretation Code [facility] Erythrocyte distribution width Auto Ratio (RBC) 14.4 % Invalid Interpretation Code 10 - 14.4 % [facility] Hematocrit Auto Volume Fraction (Bld) 42.2 % Invalid Interpretation Code 34.4 - 44.8 % [facility] Hemoglobin mass conc (Bld) 13.7 g/dL Invalid Interpretation Code 11.6 - 15.4 g/dL [facility] Interpretation and review of laboratory results Abnormal Invalid Interpretation Code [facility] Lymphocytes Auto #/vol (Bld) 2.6 K/mcL Invalid Interpretation Code 1.0 - 3.7 [facility] Lymphocytes/100 WBC Auto (Bld) 45.9 % Invalid Interpretation Code [facility] MCH Auto Entitic mass (RBC) 29.5 pg Invalid Interpretation Code 27.9 - 33.9 pg [facility] MCHC Auto mass conc (RBC) 32.4 g/dL Low 33.1 - 35.1 g/dL [facility] MCV Auto Entitic volume (RBC) 90.9 fL Invalid Interpretation Code 82.6 - 98.9 [facility] Monocytes Auto #/vol (Bld) 0.5 K/mcL Invalid Interpretation Code 0.1 - 0.6 [facility] Monocytes/100 WBC Auto (Bld) 9.2 % Invalid Interpretation Code [facility] Neutrophils Auto #/vol (Bld) 2.3 K/mcL Invalid Interpretation Code 1.2 - 6.9 [facility] Platelet mean volume Auto Entitic volume (Bld) 8.7 fL Invalid Interpretation Code 7.0 - 10.6 [facility] Platelets Auto #/vol (Bld) 190 K/mcL Invalid Interpretation Code 162 - 402 [facility] RBC Auto #/vol (Bld) 4.64 M/mcL Invalid Interpretation Code 3.7 - 5.0 [facility] Segmented Neut 40.4 % Invalid Interpretation Code [facility] WBC Auto #/vol (Bld) 5.7 K/mcL Invalid Interpretation Code 3.4 - 10.6 [facility] Magnesium Levelon 12-19-2016 Magnesium mass conc 1.8 mg/dL Invalid Interpretation Code 1.6 - 2.4 mg/dL [facility] Vital Signs Date Time Vital Sign Value Performing Clinician Faci lity 11-10-2024 19:17-0400 Body temperature 97.59 [degF] Katherine Sethi MD Work Phone: [facility] 11-10-2024 19:17-0400 Diastolic blood pressure 68 mm[Hg] Katherine Sethi MD Work Phone: [facility] 11-10-2024 19:17-0400 Heart rate 97 /min Katherine Sethi MD Work Phone: [facility] 11-10-2024 19:17-0400 Respiratory rate 20 /min Katherine Sethi MD Work Phone: [facility] 11-10-2024 19:17-0400 SaO2% (BldA) [Mass fraction] 95 % Katherine Sethi MD Work Phone: [facility] 11-10-2024 19:17-0400 Systolic blood pressure 121 mm[Hg] Katherine Sethi MD Work Phone: [facility] 11-02-2024 22:01-0400 Body height 162.6 cm Katherine Sethi MD Work Phone: [facility] 11-02-2024 22:01-0400 Body mass index (BMI) [Ratio] 19.79 kg/m2 Katherine Sethi MD Work Phone: [facility] 11-02-2024 22:01-0400 Body weight 52.3 kg Katherine Sethi MD Work Phone: [facility] 10-27-2024 14:57-0400 Diastolic blood pressure 84 mm[Hg] Lizeth Comer DO Work Phone: [facility] 10-27-2024 14:57-0400 Heart rate 68 /min Lizeth Comer DO Work Phone: [facility] 10-27-2024 14:57-0400 Respiratory rate 14 /min Lizeth Comer DO Work Phone: [facility] 10-27-2024 14:57-0400 SaO2% (BldA) [Mass fraction] 97 % Lizeth Comer DO Work Phone: [facility] 10-27-2024 14:57-0400 Systolic blood pressure 156 mm[Hg] Lizeth Comer DO Work Phone: [facility] 10-27-2024 10:55-0400 Body height 162.6 cm Lizeth Comer DO Work Phone: [facility] 10-27-2024 10:55-0400 Body mass index (BMI) [Ratio] 20.25 kg/m2 Lizeth Comer DO Work Phone: [facility] 10-27-2024 10:55-0400 Body temperature 98.49 [degF] Lizeth Comer DO Work Phone: [facility] 10-27-2024 10:55-0400 Body weight 53.52 kg Lizeth Comer DO Work Phone: [facility] 09-23-2024 11:59-0400 Diastolic blood pressure 69 mm[Hg] Claudine Majano MD Work Phone: [facility] 09-23-2024 11:59-0400 Systolic blood pressure 132 mm[Hg] Claudine Majano MD Work Phone: [facility] 09-23-2024 11:18-0400 Body height 162.6 cm Claudine Majano MD Work Phone: [facility] 09-23-2024 11:18-0400 Body mass index (BMI) [Ratio] 21.28 kg/m2 Claudine Majano MD Work Phone: [facility] 09-23-2024 11:18-0400 Body weight 56.25 kg Claudine Majano MD Work Phone: [facility] 09-23-2024 11:18-0400 Heart rate 82 /min Claudine Majano MD Work Phone: [facility] 09-23-2024 11:18-0400 SaO2% (BldA) [Mass fraction] 94 % Claudine Majano MD Work Phone: [facility] 08-10-2024 13:00-0400 Diastolic blood pressure 73 mm[Hg] Jake Pantojatista DO Work Phone: [facility] 08-10-2024 13:00-0400 Heart rate 86 /min Jake Melanie DO Work Phone: [facility] 08-10-2024 13:00-0400 SaO2% (BldA) [Mass fraction] 96 % Jake Melanie DO Work Phone: [facility] 08-10-2024 13:00-0400 Systolic blood pressure 152 mm[Hg] Jake Melanie DO Work Phone: [facility] 07-18-2024 12:50-0400 Body height 162.6 cm Claudine Majano MD Work Phone: [facility] 07-18-2024 12:50-0400 Body mass index (BMI) [Ratio] 20.94 kg/m2 Claudine Majano MD Work Phone: [facility] 07-18-2024 12:50-0400 Body temperature 98.29 [degF] Claudine Majano MD Work Phone: [facility] 07-18-2024 12:50-0400 Body weight 55.34 kg Claudine Majano MD Work Phone: [facility] 07-18-2024 12:50-0400 Diastolic blood pressure 72 mm[Hg] Claudine Majano MD Work Phone: [facility] 07-18-2024 12:50-0400 Heart rate 92 /min Claudine Majano MD Work Phone: [facility] 07-18-2024 12:50-0400 Respiratory rate 16 /min Claudine Majano MD Work Phone: [facility] 07-18-2024 12:50-0400 SaO2% (BldA) [Mass fraction] 94 % Claudine Majano MD Work Phone: [facility] 07-18-2024 12:50-0400 Systolic blood pressure 117 mm[Hg] Claudine Majano MD Work Phone: [facility] 06-06-2024 11:41-0400 Body height 162.6 cm Donna Schroeder MD Work Phone: [facility] 06-06-2024 11:41-0400 Body mass index (BMI) [Ratio] 20.08 kg/m2 Donna Schroeder MD Work Phone: [facility] 06-06-2024 11:41-0400 Body weight 53.07 kg Donna Schroeder MD Work Phone: [facility] 06-06-2024 11:41-0400 Diastolic blood pressure 78 mm[Hg] Donna Schroeder MD Work Phone: [facility] 06-06-2024 11:41-0400 Heart rate 90 /min Donna Schroeder MD Work Phone: [facility] 06-06-2024 11:41-0400 SaO2% (BldA) [Mass fraction] 96 % Donna Schroeder MD Work Phone: [facility] 06-06-2024 11:41-0400 Systolic blood pressure 136 mm[Hg] Donna Schroeder MD Work Phone: [facility] 05-24-2024 10:29-0400 Diastolic blood pressure 76 mm[Hg] Claudine Majano MD Work Phone: [facility] Comment on above: patients wrist cuff 05-24-2024 10:29-0400 Systolic blood pressure 126 mm[Hg] Claudine Majano MD Work Phone: [facility] Comment on above: patients wrist cuff 05-24-2024 10:28-0400 Heart rate 92 /min Claudine Majano MD Work Phone: [facility] 05-24-2024 10:25-0400 Body height 162.6 cm Claudine Majano MD Work Phone: [facility] 05-24-2024 10:25-0400 Body mass index (BMI) [Ratio] 20.43 kg/m2 Claudine Majano MD Work Phone: [facility] 05-24-2024 10:25-0400 Body weight 53.98 kg Claudine Majano MD Work Phone: [facility] 05-24-2024 10:25-0400 Respiratory rate 16 /min Claudine Majano MD Work Phone: [facility] 05-12-2024 13:46-0500 Body height 162.6 cm Jake Navarro DO Work Phone: [facility] 05-12-2024 13:46-0500 Body mass index (BMI) [Ratio] 20.6 kg/m2 Jake Melanie DO Work Phone: [facility] 05-12-2024 13:46-0500 Body weight 54.43 kg Jake Melanie DO Work Phone: [facility] 05-12-2024 13:46-0500 Diastolic blood pressure 75 mm[Hg] Jake Melanie DO Work Phone: [facility] 05-12-2024 13:46-0500 Heart rate 87 /min Jake Melanie DO Work Phone: [facility] 05-12-2024 13:46-0500 Respiratory rate 16 /min Jake Melanie DO Work Phone: [facility] 05-12-2024 13:46-0500 SaO2% (BldA) [Mass fraction] 95 % Jake Melanie DO Work Phone: [facility] 05-12-2024 13:46-0500 Systolic blood pressure 133 mm[Hg] Jake Melanie DO Work Phone: [facility] 04-13-2024 13:00-0500 Body mass index (BMI) [Ratio] 19.05 kg/m2 Jake Melanie DO Work Phone: [facility] 04-13-2024 13:00-0500 Body weight 50.35 kg Jake Melanie DO Work Phone: [facility] 04-13-2024 13:00-0500 Diastolic blood pressure 73 mm[Hg] Jake Melanie DO Work Phone: [facility] 04-13-2024 13:00-0500 Heart rate 90 /min Jake Melanie DO Work Phone: [facility] 04-13-2024 13:00-0500 SaO2% (BldA) [Mass fraction] 92 % Jake Melanie DO Work Phone: [facility] 04-13-2024 13:00-0500 Systolic blood pressure 117 mm[Hg] Jake Melanie DO Work Phone: [facility] 04-05-2024 12:14-0500 Diastolic blood pressure 68 mm[Hg] Claudine Majano MD Work Phone: [facility] 04-05-2024 12:14-0500 Systolic blood pressure 109 mm[Hg] Claudine Majano MD Work Phone: [facility] 04-05-2024 11:39-0500 Heart rate 83 /min Claudine Majano MD Work Phone: [facility] 04-05-2024 11:32-0500 Body height 162.6 cm Claudine Majano MD Work Phone: [facility] 04-05-2024 11:32-0500 Body mass index (BMI) [Ratio] 20.43 kg/m2 Claudine Majano MD Work Phone: [facility] 04-05-2024 11:32-0500 Body temperature 97.81 [degF] Claudine Majano MD Work Phone: [facility] 04-05-2024 11:32-0500 Body weight 53.98 kg Claudine Majano MD Work Phone: [facility] 04-05-2024 11:32-0500 Respiratory rate 16 /min Claudine Majano MD Work Phone: [facility] 04-05-2024 11:32-0500 SaO2% (BldA) [Mass fraction] 98 % Claudine Majano MD Work Phone: [facility] 01-01-2024 09:47-0400 Body mass index (BMI) [Ratio] 21.11 kg/m2 Jake Melanie DO Work Phone: [facility] 01-01-2024 09:47-0400 Body weight 55.79 kg Jake Melanie DO Work Phone: [facility] 01-01-2024 09:47-0400 Diastolic blood pressure 71 mm[Hg] Jake Melanie DO Work Phone: [facility] 01-01-2024 09:47-0400 Heart rate 81 /min Jake Melanie DO Work Phone: [facility] 01-01-2024 09:47-0400 Respiratory rate 16 /min Jake Melanie DO Work Phone: [facility] 01-01-2024 09:47-0400 SaO2% (BldA) [Mass fraction] 94 % Jake Melanie DO Work Phone: [facility] 01-01-2024 09:47-0400 Systolic blood pressure 114 mm[Hg] Jake Melanie DO Work Phone: [facility] 11-04-2023 14:29-0400 Body height 162.6 cm Rocael Mcleod MD Work Phone: [facility] 11-04-2023 14:29-0400 Diastolic blood pressure 78 mm[Hg] Rocael Mcleod MD Work Phone: [facility] 11-04-2023 14:29-0400 Heart rate 73 /min Rocael Mcleod MD Work Phone: [facility] 11-04-2023 14:29-0400 Respiratory rate 16 /min Rocael Mcleod MD Work Phone: [facility] 11-04-2023 14:29-0400 SaO2% (BldA) [Mass fraction] 96 % Rocael Mcleod MD Work Phone: [facility] 11-04-2023 14:29-0400 Systolic blood pressure 128 mm[Hg] Rocael Mcleod MD Work Phone: [facility] 10-13-2023 10:43-0400 Body height 162.6 cm Eleanor Shank [employer] Work Phone: [facility] 10-13-2023 10:43-0400 Body mass index (BMI) [Ratio] 21.46 kg/m2 Eleanor Shank [employer] Work Phone: [facility] 10-13-2023 10:43-0400 Body temperature 98.1 [degF] Eleanor Shank [employer] Work Phone: [facility] 10-13-2023 10:43-0400 Body weight 56.7 kg Eleanor Shank [employer] Work Phone: [facility] 10-13-2023 10:43-0400 Diastolic blood pressure 71 mm[Hg] Eleanor Shank [employer] Work Phone: [facility] 10-13-2023 10:43-0400 Heart rate 84 /min Eleanor Shank [employer] Work Phone: [facility] 10-13-2023 10:43-0400 Respiratory rate 16 /min Eleanor Shank [employer] Work Phone: [facility] 10-13-2023 10:43-0400 SaO2% (BldA) [Mass fraction] 95 % Eleanor Shank [employer] Work Phone: [facility] 10-13-2023 10:43-0400 Systolic blood pressure 138 mm[Hg] Eleanor Shank [employer] Work Phone: [facility] 09-28-2023 10:05-0400 Body mass index (BMI) [Ratio] 22.31 kg/m2 Jake Melanie DO Work Phone: [facility] 09-28-2023 10:05-0400 Body weight 58.97 kg Jake Melanie DO Work Phone: [facility] 09-28-2023 10:05-0400 Diastolic blood pressure 80 mm[Hg] Jake Melanie DO Work Phone: [facility] 09-28-2023 10:05-0400 Heart rate 69 /min Jake Melanie DO Work Phone: [facility] 09-28-2023 10:05-0400 SaO2% (BldA) [Mass fraction] 98 % Jake Melanie DO Work Phone: [facility] 09-28-2023 10:05-0400 Systolic blood pressure 147 mm[Hg] Jake Melanie DO Work Phone: [facility] 07-21-2023 16:17-0400 Diastolic blood pressure 77 mm[Hg] Claudine Majano MD Work Phone: [facility] 07-21-2023 16:17-0400 Systolic blood pressure 145 mm[Hg] Claudine Majano MD Work Phone: [facility] 07-21-2023 15:27-0400 Heart rate 75 /min Claudine Majano MD Work Phone: [facility] 07-21-2023 15:21-0400 Body height 162.6 cm Claudine Majano MD Work Phone: [facility] 07-21-2023 15:21-0400 Body mass index (BMI) [Ratio] 21.28 kg/m2 Claudine Majano MD Work Phone: [facility] 07-21-2023 15:21-0400 Body temperature 97.81 [degF] Claudine Majano MD Work Phone: [facility] 07-21-2023 15:21-0400 Body weight 56.25 kg Claudine Majano MD Work Phone: [facility] 07-21-2023 15:21-0400 Respiratory rate 16 /min Claudine Majano MD Work Phone: [facility] 07-21-2023 15:21-0400 SaO2% (BldA) [Mass fraction] 96 % Claudine Majano MD Work Phone: [facility] 07-09-2023 11:36-0400 Body temperature 98.01 [degF] Maria T Howe MD Work Phone: [facility] 07-09-2023 11:36-0400 Diastolic blood pressure 69 mm[Hg] Maria T Howe MD Work Phone: [facility] 07-09-2023 11:36-0400 Heart rate 66 /min Maria T Howe MD Work Phone: [facility] 07-09-2023 11:36-0400 SaO2% (BldA) [Mass fraction] 93 % Maria T Howe MD Work Phone: [facility] 07-09-2023 11:36-0400 Systolic blood pressure 116 mm[Hg] Maria T Howe MD Work Phone: [facility] 07-09-2023 09:11-0400 Respiratory rate 16 /min Maria T Howe MD Work Phone: [facility] 07-07-2023 21:00-0400 Body mass index (BMI) [Ratio] 22.56 kg/m2 Maria T Howe MD Work Phone: [facility] 07-07-2023 21:00-0400 Body weight 59.61 kg Maria T Howe MD Work Phone: [facility] 07-07-2023 13:00-0400 Diastolic blood pressure 70 mm[Hg] Claudine Majano MD Work Phone: [facility] 07-07-2023 13:00-0400 Systolic blood pressure 122 mm[Hg] Claudine Majano MD Work Phone: [facility] 07-07-2023 12:59-0400 Heart rate 76 /min Claudine Majano MD Work Phone: [facility] 07-07-2023 12:58-0400 Body height 162.6 cm Claudine Majano MD Work Phone: [facility] 07-07-2023 12:58-0400 Body mass index (BMI) [Ratio] 22.83 kg/m2 Claudine Majano MD Work Phone: [facility] 07-07-2023 12:58-0400 Body temperature 98.01 [degF] Claudine Majano MD Work Phone: [facility] 07-07-2023 12:58-0400 Body weight 60.33 kg Claudine Majano MD Work Phone: [facility] 07-07-2023 12:58-0400 Respiratory rate 16 /min Claudine Majano MD Work Phone: [facility] 06-26-2023 10:16-0400 Body height 162.6 cm Jake Melanie DO Work Phone: [facility] 06-26-2023 10:16-0400 Body mass index (BMI) [Ratio] 22.49 kg/m2 Jake Melanie DO Work Phone: [facility] 06-26-2023 10:16-0400 Body weight 59.42 kg Jake Melanie DO Work Phone: [facility] 06-26-2023 10:16-0400 Diastolic blood pressure 78 mm[Hg] Jake Melanie DO Work Phone: [facility] 06-26-2023 10:16-0400 Heart rate 71 /min Jake Melanie DO Work Phone: [facility] 06-26-2023 10:16-0400 Respiratory rate 16 /min Jake Melanie DO Work Phone: [facility] 06-26-2023 10:16-0400 SaO2% (BldA) [Mass fraction] 98 % Jake Melanie DO Work Phone: [facility] 06-26-2023 10:16-0400 Systolic blood pressure 133 mm[Hg] Jake Melanie DO Work Phone: [facility] 05-20-2023 11:40-0400 Body mass index (BMI) [Ratio] 22.47 kg/m2 Rocael Mcleod MD Work Phone: [facility] 05-20-2023 11:40-0400 Body weight 59.38 kg Rocael Mcleod MD Work Phone: [facility] 05-20-2023 11:40-0400 Diastolic blood pressure 82 mm[Hg] Rocael Mcleod MD Work Phone: [facility] 05-20-2023 11:40-0400 Heart rate 72 /min Rocael Mcleod MD Work Phone: [facility] 05-20-2023 11:40-0400 Respiratory rate 16 /min Rocael Mcleod MD Work Phone: [facility] 05-20-2023 11:40-0400 SaO2% (BldA) [Mass fraction] 98 % Rocael Mcleod MD Work Phone: [facility] 05-20-2023 11:40-0400 Systolic blood pressure 161 mm[Hg] Rocael Mcleod MD Work Phone: [facility] 05-11-2023 08:04-0500 Diastolic blood pressure 76 mm[Hg] Claudine Majano MD Work Phone: [facility] 05-11-2023 08:04-0500 Heart rate 67 /min Claudine Majano MD Work Phone: [facility] 05-11-2023 08:04-0500 Systolic blood pressure 146 mm[Hg] Claudine Majano MD Work Phone: [facility] 05-11-2023 07:54-0500 Body height 162.6 cm Claudine Majano MD Work Phone: [facility] 05-11-2023 07:54-0500 Body mass index (BMI) [Ratio] 22.83 kg/m2 Claudine Majano MD Work Phone: [facility] 05-11-2023 07:54-0500 Body temperature 98.01 [degF] Claudine Majano MD Work Phone: [facility] 05-11-2023 07:54-0500 Body weight 60.33 kg Claudine Majano MD Work Phone: [facility] 05-11-2023 07:54-0500 Respiratory rate 16 /min Claudine Majano MD Work Phone: [facility] 05-11-2023 07:54-0500 SaO2% (BldA) [Mass fraction] 97 % Claudine Majano MD Work Phone: [facility] 04-22-2023 09:51-0500 Body height 162.6 cm Jake Navarro DO Work Phone: [facility] 04-22-2023 09:51-0500 Body mass index (BMI) [Ratio] 21.52 kg/m2 Jake Melanie DO Work Phone: [facility] 04-22-2023 09:51-0500 Body weight 56.88 kg Jake Melanie DO Work Phone: [facility] 04-22-2023 09:51-0500 Diastolic blood pressure 79 mm[Hg] Jake Melanie DO Work Phone: [facility] 04-22-2023 09:51-0500 Heart rate 76 /min Jake Melanie DO Work Phone: [facility] 04-22-2023 09:51-0500 Respiratory rate 16 /min Jake Melanie DO Work Phone: [facility] 04-22-2023 09:51-0500 SaO2% (BldA) [Mass fraction] 97 % Jake Melanie DO Work Phone: [facility] 04-22-2023 09:51-0500 Systolic blood pressure 125 mm[Hg] Jake Melanie DO Work Phone: [facility] 03-23-2023 08:42-0500 Body height 162.6 cm Rick Giuseppeae DO Work Phone: [facility] 03-23-2023 08:42-0500 Body mass index (BMI) [Ratio] 22.33 kg/m2 Rick Thomae DO Work Phone: [facility] 03-23-2023 08:42-0500 Body weight 59 kg Rick Thomae DO Work Phone: [facility] 02-24-2023 16:30-0500 Diastolic blood pressure 80 mm[Hg] Claudine Majano MD Work Phone: [facility] 02-24-2023 16:30-0500 Systolic blood pressure 147 mm[Hg] Claudine Majano MD Work Phone: [facility] 02-24-2023 16:03-0500 Heart rate 83 /min Claudine Majano MD Work Phone: [facility] 02-24-2023 15:56-0500 Body height 162.6 cm Claudine Majano MD Work Phone: [facility] 02-24-2023 15:56-0500 Body mass index (BMI) [Ratio] 21.63 kg/m2 Claudine Majano MD Work Phone: [facility] 02-24-2023 15:56-0500 Body temperature 98.01 [degF] Claudine Majano MD Work Phone: [facility] 02-24-2023 15:56-0500 Body weight 57.15 kg Claudine Majano MD Work Phone: [facility] 02-24-2023 15:56-0500 Respiratory rate 16 /min Claudine Majano MD Work Phone: [facility] 02-24-2023 15:56-0500 SaO2% (BldA) [Mass fraction] 97 % Claudine Majano MD Work Phone: [facility] 10-24-2022 12:54-0400 Diastolic blood pressure 78 mm[Hg] Claudine Majano MD Work Phone: [facility] 10-24-2022 12:54-0400 Heart rate 69 /min Claudine Majano MD Work Phone: [facility] 10-24-2022 12:54-0400 Systolic blood pressure 166 mm[Hg] Claudine Majano MD Work Phone: [facility] 10-24-2022 12:48-0400 Body height 162.6 cm Claudine Majano MD Work Phone: [facility] 10-24-2022 12:48-0400 Body mass index (BMI) [Ratio] 22.83 kg/m2 Claudine Majano MD Work Phone: [facility] 10-24-2022 12:48-0400 Body temperature 98.71 [degF] Claudine Majano MD Work Phone: [facility] 10-24-2022 12:48-0400 Body weight 60.33 kg Claudine Majano MD Work Phone: [facility] 10-24-2022 12:48-0400 Respiratory rate 16 /min Claudine Majano MD Work Phone: [facility] 10-24-2022 12:48-0400 SaO2% (BldA) [Mass fraction] 97 % Claudine Majano MD Work Phone: [facility] 09-16-2022 14:31-0400 Body height 162.6 cm Donna Schroeder MD Work Phone: [facility] 09-16-2022 14:31-0400 Body mass index (BMI) [Ratio] 22.04 kg/m2 Donna Schroeder MD Work Phone: [facility] 09-16-2022 14:31-0400 Body weight 58.24 kg Donna Schroeder MD Work Phone: [facility] 09-16-2022 14:31-0400 Diastolic blood pressure 63 mm[Hg] Donna Schroeder MD Work Phone: [facility] 09-16-2022 14:31-0400 Heart rate 81 /min Donna Schroeder MD Work Phone: [facility] 09-16-2022 14:31-0400 SaO2% (BldA) [Mass fraction] 94 % Donna Schroeder MD Work Phone: [facility] 09-16-2022 14:31-0400 Systolic blood pressure 101 mm[Hg] Donna Schroeder MD Work Phone: [facility] 07-10-2022 12:34-0400 Body temperature 97.8 [degF] [facility] 07-10-2022 12:34-0400 Diastolic blood pressure 81 mm[Hg] [facility] 07-10-2022 12:34-0400 Heart rate 68 /min [facility] 07-10-2022 12:34-0400 Respiratory rate 14 /min [facility] 07-10-2022 12:34-0400 SaO2% (BldA) [Mass fraction] 97 % [facility] 07-10-2022 12:34-0400 Systolic blood pressure 148 mm[Hg] [facility] 07-10-2022 08:30-0400 Body height 162.56 cm [facility] 07-10-2022 08:30-0400 Body mass index (BMI) [Ratio] 22.6 kg/m2 [facility] 07-10-2022 08:30-0400 Body weight 59.87 kg [facility] 07-08-2022 14:32-0400 Diastolic blood pressure 89 mm[Hg] Brayan Mena MD Work Phone: [facility] 07-08-2022 14:32-0400 Heart rate 77 /min Brayan Mena MD Work Phone: [facility] 07-08-2022 14:32-0400 Respiratory rate 16 /min Brayan Mena MD Work Phone: [facility] 07-08-2022 14:32-0400 SaO2% (BldA) [Mass fraction] 97 % Brayan Mena MD Work Phone: [facility] 07-08-2022 14:32-0400 Systolic blood pressure 163 mm[Hg] Brayan Mena MD Work Phone: [facility] 06-13-2022 11:03-0400 Diastolic blood pressure 73 mm[Hg] Claudine Majano MD Work Phone: [facility] 06-13-2022 11:03-0400 Systolic blood pressure 158 mm[Hg] Claudine Majano MD Work Phone: [facility] 06-13-2022 11:01-0400 Body mass index (BMI) [Ratio] 22.54 kg/m2 Claudine Majano MD Work Phone: [facility] 06-13-2022 11:01-0400 Body temperature 97.81 [degF] Claudine Majano MD Work Phone: [facility] 06-13-2022 11:01-0400 Body weight 59.56 kg Claudine Majano MD Work Phone: [facility] 06-13-2022 11:01-0400 Heart rate 69 /min Claudine Majano MD Work Phone: [facility] 06-13-2022 11:01-0400 Respiratory rate 18 /min Claudine Majano MD Work Phone: [facility] 06-13-2022 11:01-0400 SaO2% (BldA) [Mass fraction] 98 % Claudine Majano MD Work Phone: [facility] 04-16-2022 09:06-0500 Diastolic blood pressure 81 mm[Hg] Claudine Majano MD Work Phone: [facility] 04-16-2022 09:06-0500 Heart rate 66 /min Claudine Majano MD Work Phone: [facility] 04-16-2022 09:06-0500 Systolic blood pressure 172 mm[Hg] Claudine Majano MD Work Phone: [facility] 04-16-2022 08:58-0500 Body height 162.6 cm Claudine Majano MD Work Phone: [facility] 04-16-2022 08:58-0500 Body mass index (BMI) [Ratio] 22.31 kg/m2 Claudine Majano MD Work Phone: [facility] 04-16-2022 08:58-0500 Body temperature 97.81 [degF] Claudine Majano MD Work Phone: [facility] 04-16-2022 08:58-0500 Body weight 58.97 kg Claudine Majano MD Work Phone: [facility] 04-16-2022 08:58-0500 Respiratory rate 16 /min Claudine Majano MD Work Phone: [facility] 04-16-2022 08:58-0500 SaO2% (BldA) [Mass fraction] 97 % Claudine Majano MD Work Phone: [facility] 04-05-2022 11:17-0500 Body temperature 98.01 [degF] [facility] Work Phone: [facility] 04-05-2022 11:17-0500 Diastolic blood pressure 88 mm[Hg] [facility] Work Phone: [facility] 04-05-2022 11:17-0500 Heart rate 67 /min [facility] Work Phone: [facility] 04-05-2022 11:17-0500 Respiratory rate 15 /min [facility] Work Phone: [facility] 04-05-2022 11:17-0500 SaO2% (BldA) [Mass fraction] 96 % [facility] Work Phone: [facility] 04-05-2022 11:17-0500 Systolic blood pressure 160 mm[Hg] [facility] Work Phone: [facility] 04-04-2022 09:11-0500 Body height 162.6 cm [facility] Work Phone: [facility] 04-04-2022 09:11-0500 Body mass index (BMI) [Ratio] 22.14 kg/m2 [facility] Work Phone: [facility] 04-04-2022 09:11-0500 Body weight 58.51 kg [facility] Work Phone: [facility] 02-11-2022 13:35-0500 Diastolic blood pressure 93 mm[Hg] Claudine Majano MD Work Phone: [facility] 02-11-2022 13:35-0500 Heart rate 81 /min Claudine Majano MD Work Phone: [facility] 02-11-2022 13:35-0500 Systolic blood pressure 169 mm[Hg] Claudine Majano MD Work Phone: [facility] 02-11-2022 13:30-0500 Body height 162.6 cm Claudine Majano MD Work Phone: [facility] 02-11-2022 13:30-0500 Body mass index (BMI) [Ratio] 22.14 kg/m2 Claudine Majano MD Work Phone: [facility] 02-11-2022 13:30-0500 Body temperature 98.8 [degF] Claudine Majano MD Work Phone: [facility] 02-11-2022 13:30-0500 Body weight 58.51 kg Claudine Majano MD Work Phone: [facility] 02-11-2022 13:30-0500 Respiratory rate 16 /min Claudine Majano MD Work Phone: [facility] 02-11-2022 13:30-0500 SaO2% (BldA) [Mass fraction] 98 % Claudine Majano MD Work Phone: [facility] 01-16-2022 09:52-0500 Body height 162.56 cm Gisell Castillo [place] Work Phone: [facility] Work Phone: 01-16-2022 09:52-0500 Body mass index (BMI) [Ratio] 22.49 kg/m2 Gisell Castillo [place] Work Phone: [facility] Work Phone: 01-16-2022 09:52-0500 Body surface area Derived from formula 1.63 m2 Gisell Castillo [place] Work Phone: [facility] 120 Work Phone: 01-16-2022 09:52-0500 Body weight 59.42 kg Gisell Castillo [place] [facility] Work Phone: 01-16-2022 09:52-0500 Diastolic blood pressure 80 mm[Hg] Gisell Castillo [place] Work Phone: [facility] Work Phone: 01-16-2022 09:52-0500 Systolic blood pressure 150 mm[Hg] Gisell Desai Work Phone: [facility] Work Phone: 01-08-2022 14:20-0400 Body height 162.6 cm Brayan Mena MD Work Phone: [facility] 01-08-2022 14:20-0400 Body mass index (BMI) [Ratio] 21.97 kg/m2 Brayan Mena MD Work Phone: [facility] 01-08-2022 14:20-0400 Body weight 58.06 kg Brayan Mena MD Work Phone: [facility] 01-08-2022 14:20-0400 Diastolic blood pressure 75 mm[Hg] Brayan Mena MD Work Phone: [facility] 01-08-2022 14:20-0400 Heart rate 75 /min Brayan Mena MD Work Phone: [facility] 01-08-2022 14:20-0400 Respiratory rate 16 /min Brayan Mena MD Work Phone: [facility] 01-08-2022 14:20-0400 SaO2% (BldA) [Mass fraction] 97 % Brayan Mena MD Work Phone: [facility] 01-08-2022 14:20-0400 Systolic blood pressure 140 mm[Hg] Brayan Mena MD Work Phone: [facility] 11-12-2021 10:07-0400 Diastolic blood pressure 84 mm[Hg] Donna Schroeder MD Work Phone: [facility] 11-12-2021 10:07-0400 Systolic blood pressure 134 mm[Hg] Donna Schroeder MD Work Phone: [facility] 11-12-2021 09:43-0400 Body height 162.6 cm Donna Schroeder MD Work Phone: [facility] 11-12-2021 09:43-0400 Body mass index (BMI) [Ratio] 21.97 kg/m2 Donna Schroeder MD Work Phone: [facility] 11-12-2021 09:43-0400 Body weight 58.06 kg Donna Schroeder MD Work Phone: [facility] 11-12-2021 09:43-0400 Heart rate 78 /min Donna Schroeder MD Work Phone: [facility] 11-12-2021 09:43-0400 SaO2% (BldA) [Mass fraction] 98 % Donna Schroeder MD Work Phone: [facility] 10-16-2021 10:08-0400 Diastolic blood pressure 79 mm[Hg] Gabi Xie MD Work Phone: [facility] 10-16-2021 10:08-0400 Heart rate 75 /min Gabi Xie MD Work Phone: [facility] 10-16-2021 10:08-0400 Systolic blood pressure 164 mm[Hg] Gabi Xie MD Work Phone: [facility] 10-16-2021 10:02-0400 Body height 162.6 cm Gabi Xie MD Work Phone: [facility] 10-16-2021 10:02-0400 Body mass index (BMI) [Ratio] 22.31 kg/m2 Gabi Xie MD Work Phone: [facility] 10-16-2021 10:02-0400 Body temperature 97.59 [degF] Gabi Xie MD Work Phone: [facility] 10-16-2021 10:02-0400 Body weight 58.97 kg Gabi Xie MD Work Phone: [facility] 10-16-2021 10:02-0400 Respiratory rate 16 /min Gabi Xie MD Work Phone: [facility] 10-16-2021 10:02-0400 SaO2% (BldA) [Mass fraction] 98 % Gabi Xie MD Work Phone: [facility] 07-12-2021 13:25-0400 Diastolic blood pressure 107 mm[Hg] Brayan Mena MD Work Phone: [facility] 07-12-2021 13:25-0400 Heart rate 73 /min Brayan Mena MD Work Phone: [facility] 07-12-2021 13:25-0400 Respiratory rate 18 /min Brayan Mena MD Work Phone: [facility] 07-12-2021 13:25-0400 SaO2% (BldA) [Mass fraction] 99 % Brayan Mena MD Work Phone: [facility] 07-12-2021 13:25-0400 Systolic blood pressure 189 mm[Hg] Brayan Mena MD Work Phone: [facility] 05-30-2021 15:18-0400 Diastolic blood pressure 81 mm[Hg] Gisell [place] [employer] Work Phone: [facility] 05-30-2021 15:18-0400 Systolic blood pressure 163 mm[Hg] Gisell [place] [employer] Work Phone: [facility] 05-30-2021 15:06-0400 Body height 162.6 cm Gisell Spring [employer] Work Phone: [facility] 05-30-2021 15:06-0400 Body mass index (BMI) [Ratio] 23.55 kg/m2 Gisell [place] [employer] Work Phone: [facility] 05-30-2021 15:06-0400 Body temperature 97.9 [degF] Gisell [place] [employer] Work Phone: [facility] 05-30-2021 15:06-0400 Body weight 62.23 kg Gisell [place] [employer] Work Phone: [facility] 05-30-2021 15:06-0400 Heart rate 75 /min Gisell [place] [employer] Work Phone: [facility] 05-30-2021 15:06-0400 Respiratory rate 16 /min Gisell [place] [employer] Work Phone: [facility] 05-30-2021 15:06-0400 SaO2% (BldA) [Mass fraction] 98 % Gisell Desai CNP Work Phone: [facility] 03-15-2021 11:51-0500 Diastolic blood pressure 80 mm[Hg] Gisellocco Desai [employer] Work Phone: [facility] 03-15-2021 11:51-0500 Systolic blood pressure 142 mm[Hg] Gisell Desai [employer] Work Phone: [facility] 03-15-2021 11:27-0500 Heart rate 76 /min Gisell Desai [employer] Work Phone: [facility] 03-15-2021 11:19-0500 Body height 162.6 cm Gisell Desai CNP Work Phone: [facility] 03-15-2021 11:19-0500 Body mass index (BMI) [Ratio] 23.34 kg/m2 Gisellcoco Desai [employer] Work Phone: [facility] 03-15-2021 11:19-0500 Body temperature 97.9 [degF] Gisell Desai [employer] Work Phone: [facility] 03-15-2021 11:19-0500 Body weight 61.69 kg Gisell Desai CNP Work Phone: [facility] 03-15-2021 11:19-0500 Respiratory rate 16 /min Gisellcoco Desai [employer] Work Phone: [facility] 03-15-2021 11:19-0500 SaO2% (BldA) [Mass fraction] 95 % Gisellcoco Desai CNP Work Phone: [facility] 02-19-2021 14:51-0500 Body height 162.56 cm Gisell Desai [facility] 300 Work Phone: 02-19-2021 14:51-0500 Body mass index (BMI) [Ratio] 22.92 kg/m2 Gisell Desai Work Phone: [facility] 300 Work Phone: 02-19-2021 14:51-0500 Body surface area Derived from formula 1.65 m2 Gisell Castillo [place] Work Phone: [facility] 300 Work Phone: 02-19-2021 14:51-0500 Body temperature 97.3 [degF] Gisell Castillo [place] Work Phone: [facility] 300 Work Phone: 02-19-2021 14:51-0500 Body weight 60.56 kg Gisell Castillo [place] Work Phone: [facility] 300 Work Phone: 02-12-2021 14:11-0500 Diastolic blood pressure 85 mm[Hg] Donna Schroeder MD Work Phone: [facility] 02-12-2021 14:11-0500 Systolic blood pressure 151 mm[Hg] Donna Schroeder MD Work Phone: [facility] 02-12-2021 13:44-0500 Body height 162.6 cm Donna Schroeder MD Work Phone: [facility] 02-12-2021 13:44-0500 Body mass index (BMI) [Ratio] 24.55 kg/m2 Donna Schroeder MD Work Phone: [facility] 02-12-2021 13:44-0500 Body weight 64.86 kg Donna Schroeder MD Work Phone: [facility] 02-12-2021 13:44-0500 Heart rate 73 /min Donna Schroeder MD Work Phone: [facility] 02-12-2021 13:44-0500 SaO2% (BldA) [Mass fraction] 98 % Donna Schroeder MD Work Phone: [facility] 09-27-2020 11:31-0400 Diastolic blood pressure 78 mm[Hg] Gisellcoco Desai [employer] Work Phone: [facility] 09-27-2020 11:31-0400 Heart rate 68 /min Gisell Carson [facility] Work Phone: [facility] 09-27-2020 11:31-0400 Systolic blood pressure 179 mm[Hg] Gisell [place] [employer] Work Phone: [facility] 09-27-2020 11:25-0400 Body height 162.6 cm Gisellcoco Desai [employer] Work Phone: [facility] 09-27-2020 11:25-0400 Body mass index (BMI) [Ratio] 23.86 kg/m2 Gisell Carson [facility] Work Phone: [facility] 09-27-2020 11:25-0400 Body temperature 98.1 [degF] Gisell Carson [facility] Work Phone: [facility] 09-27-2020 11:25-0400 Body weight 63.05 kg Gisellcoco Desai [employer] Work Phone: [facility] 09-27-2020 11:25-0400 Respiratory rate 16 /min Gisell Carson [facility] Work Phone: [facility] 09-27-2020 11:25-0400 SaO2% (BldA) [Mass fraction] 96 % Gisell Carson [facility] Work Phone: [facility] 08-14-2020 10:15-0400 Body mass index (BMI) [Ratio] 24.37 kg/m2 Tae Robertson MD Work Phone: [facility] 08-14-2020 10:15-0400 Body weight 64.41 kg Tae Robertson MD Work Phone: [facility] 08-14-2020 10:15-0400 Diastolic blood pressure 90 mm[Hg] Tae Robertson MD Work Phone: [facility] 08-14-2020 10:15-0400 Systolic blood pressure 181 mm[Hg] Tae Robertson MD Work Phone: [facility] 08-09-2020 11:13-0400 Body height 162.56 cm Gisell Desai Work Phone: [facility] 300 Work Phone: 08-09-2020 11:13-0400 Body mass index (BMI) [Ratio] 24.27 kg/m2 Gisell Desai Work Phone: [facility] 300 Work Phone: 08-09-2020 11:13-0400 Body surface area Derived from formula 1.69 m2 Gisell Cast[place] Work Phone: [facility] 300 Work Phone: 08-09-2020 11:13-0400 Body temperature 97.3 [degF] Gisell Desai Work Phone: [facility] 300 Work Phone: 08-09-2020 11:13-0400 Body weight 64.13 kg Giesll Desai Work Phone: [facility] 300 Work Phone: 08-09-2020 11:13-0400 Diastolic blood pressure 86 mm[Hg] Gisell Desai Work Phone: [facility] 300 Work Phone: 08-09-2020 11:13-0400 Systolic blood pressure 124 mm[Hg] Gisell Desai Work Phone: [facility] 300 Work Phone: 07-25-2020 13:56-0400 Diastolic blood pressure 96 mm[Hg] Gisell Giselle [employer] Work Phone: [facility] 07-25-2020 13:56-0400 Heart rate 77 /min Gisell Desai [employer] Work Phone: [facility] 07-25-2020 13:56-0400 Systolic blood pressure 193 mm[Hg] Gisell Desai [employer] Work Phone: [facility] 07-25-2020 13:50-0400 Body height 162.6 cm Gisell Desai [employer] Work Phone: [facility] 07-25-2020 13:50-0400 Body mass index (BMI) [Ratio] 23.52 kg/m2 Gisell Desai [employer] Work Phone: [facility] 07-25-2020 13:50-0400 Body temperature 98.1 [degF] Gisell Desai [employer] Work Phone: [facility] 07-25-2020 13:50-0400 Body weight 62.14 kg Gisell Desai [employer] Work Phone: [facility] 07-25-2020 13:50-0400 Respiratory rate 16 /min Gisell Desai [employer] Work Phone: [facility] 07-25-2020 13:50-0400 SaO2% (BldA) [Mass fraction] 97 % Gisell Carson [facility] Work Phone: [facility] 07-12-2020 15:06-0400 Body height 162.56 cm Gisell Desai Work Phone: [facility] 300 Work Phone: 07-12-2020 15:06-0400 Body mass index (BMI) [Ratio] 23.75 kg/m2 Gisell Cast[place] Work Phone: [facility] 300 Work Phone: 07-12-2020 15:06-0400 Body surface area Derived from formula 1.67 m2 Gisell M [place] Work Phone: [facility] 300 Work Phone: 07-12-2020 15:06-0400 Body temperature 97.3 [degF] Gisell M [place] Work Phone: [facility] 300 Work Phone: 07-12-2020 15:06-0400 Body weight 62.77 kg Gisell M [place] Work Phone: [facility] 300 Work Phone: 07-12-2020 15:06-0400 Diastolic blood pressure 84 mm[Hg] Gisell Castillo [place] Work Phone: [facility] 300 Work Phone: 07-12-2020 15:06-0400 Systolic blood pressure 138 mm[Hg] Gisell M [place] Work Phone: [facility] 300 Work Phone: 04-18-2020 16:08-0500 Body Temperature 97.7 [degF] Nena Cabrera [facility] 300 Work Phone: 04-18-2020 16:08-0500 BP Diastolic 82 mm[Hg] Nena Cabrera [facility] 300 Work Phone: 04-18-2020 16:08-0500 BP Systolic 132 mm[Hg] Nena Cabrera [facility] 300 Work Phone: 04-18-2020 16:08-0500 Height 162.56 cm Nena Cabrera [facility] 300 Work Phone: 03-15-2020 14:14-0500 BP Diastolic 82 mm[Hg] [facility] 03-15-2020 14:14-0500 BP Systolic 155 mm[Hg] [facility] 03-15-2020 14:14-0500 Pulse (Heart Rate) 74 /min [facility] 03-15-2020 14:07-0500 BMI (Body Mass Index) 24.37 kg/m2 [facility] 03-15-2020 14:07-0500 Body Temperature 98.71 [degF] [facility] 03-15-2020 14:07-0500 Body weight 64.41 kg [facility] 03-15-2020 14:07-0500 Height 162.6 cm [facility] 03-15-2020 14:07-0500 Pulse Oximetry 96 % [facility] 03-15-2020 14:07-0500 Respiratory Rate 16 /min [facility] 02-27-2020 10:29-0500 BMI (Body Mass Index) 24.37 kg/m2 Nena [place] 02-27-2020 10:29-0500 Body weight 64.41 kg Nena [place] 02-27-2020 10:29-0500 BP Diastolic 84 mm[Hg] Nena [place] 02-27-2020 10:29-0500 BP Systolic 171 mm[Hg] [place] 02-27-2020 10:29-0500 Height 162.6 cm [place]ena [place] 02-27-2020 10:29-0500 Pulse (Heart Rate) 83 /min [place]ena [place] 01-25-2020 09:55-0500 BMI (Body Mass Index) 24.37 kg/m2 Nena [place] 01-25-2020 09:55-0500 Body weight 64.41 kg Nena [place] 01-25-2020 09:55-0500 BP Diastolic 89 mm[Hg] [facility] 01-25-2020 09:55-0500 BP Systolic 177 mm[Hg] Nena [place] 01-25-2020 09:55-0500 Height 162.6 cm Nena [place] 01-25-2020 09:55-0500 Pulse (Heart Rate) 77 /min [place] 01-17-2020 10:10-0500 BMI (Body Mass Index) 24.46 kg/m2 Tae Robertson [facility] 01-17-2020 10:10-0500 Body weight 64.64 kg Tae Willshmy [facility] 01-17-2020 10:10-0500 BP Diastolic 80 mm[Hg] Tae Marcelo [facility] 01-17-2020 10:10-0500 BP Systolic 142 mm[Hg] Tae Robertson [facility] 01-17-2020 10:10-0500 Height 162.[address] [facility] 01-17-2020 10:10-0500 Pulse (Heart Rate) 71 /min Tae Marcelo [facility] 01-17-2020 10:10-0500 Pulse Oximetry 95 % Tae Robertson [facility] 01-16-2020 09:56-0500 BP Diastolic 92 mm[Hg] [facility] 01-16-2020 09:56-0500 BP Systolic 162 mm[Hg] [facility] 01-16-2020 09:56-0500 Pulse (Heart Rate) 75 /min [facility] 01-16-2020 09:51-0500 BMI (Body Mass Index) 24.94 kg/m2 [facility] 01-16-2020 09:51-0500 Body Temperature 98.2 [degF] [facility] 01-16-2020 09:51-0500 Body weight 65.91 kg [facility] 01-16-2020 09:51-0500 Height 162.6 cm [facility] 01-16-2020 09:51-0500 Pulse Oximetry 98 % [facility] 01-16-2020 09:51-0500 Respiratory Rate 18 /min [facility] 06-14-2019 14:29-0400 BMI (Body Mass Index) 22.49 kg/m2 Tae Willshmy [facility] 06-14-2019 14:29-0400 Body weight 59.42 kg Tae Willshmy [facility] 06-14-2019 14:29-0400 BP Diastolic 63 mm[Hg] Tae Willshmy [facility] 06-14-2019 14:29-0400 BP Systolic 136 mm[Hg] [facility] 06-14-2019 14:29-0400 Pulse (Heart Rate) 65 /min Tae Willshmy [facility] 02-22-2019 09:17-0500 BMI (Body Mass Index) 23.52 kg/m2 [facility] 02-22-2019 09:17-0500 Body Temperature 97.59 [degF] [facility] 02-22-2019 09:17-0500 Body weight 62.14 kg [facility] 02-22-2019 09:17-0500 BP Diastolic 80 mm[Hg] [facility] 02-22-2019 09:17-0500 BP Systolic 145 mm[Hg[facility]-22-[facility] 09:17-0500 Height 162.6 cm [facility] 02-22-2019 09:17-0500 Pulse (Heart Rate) 77 /min Brayan [facility] 02-22-2019 09:17-0500 Pulse Oximetry 98 % Brayan [facility] 02-22-2019 09:17-0500 Respiratory Rate 16 /min Brayan [facility] 01-18-2019 09:57-0500 BMI (Body Mass Index) 24.13 kg/m2 Tae Robertson [facility] 01-18-2019 09:57-0500 Body weight 63.78 kg Tae Willshmy [facility] 01-18-2019 09:57-0500 BP Diastolic 74 mm[Hg] Tae Marcelo [facility] 01-18-2019 09:57-0500 BP Systolic 160 mm[Hg] Tae Willshmy [facility] 01-18-2019 09:57-0500 Height 162.6 [address] [facility] 01-18-2019 09:57-0500 Pulse (Heart Rate) 61 /min [facility] 01-18-2019 09:57-0500 Pulse Oximetry 98 % Tae Willshmy [facility] 12-22-2018 09:44-0400 BMI (Body Mass Index) 24.13 kg/m2 [facility] 12-22-2018 09:44-0400 Body Temperature 97.39 [degF] [facility] 12-22-2018 09:44-0400 Body weight 63.78 kg [facility] 12-22-2018 09:44-0400 BP Diastolic 80 mm[Hg] [facility] 12-22-2018 09:44-0400 BP Systolic 137 mm[Hg] [facility] 12-22-2018 09:44-0400 Height 162.6 cm [facility] 12-22-2018 09:44-0400 Pulse (Heart Rate) 63 /min [facility] 12-22-2018 09:44-0400 Pulse Oximetry 97 % [facility] 12-22-2018 09:44-0400 Respiratory Rate 18 /min [facility] 10-12-2018 09:28-0400 BMI (Body Mass Index) 24.31 kg/m2 Tae Robertson [facility] 10-12-2018 09:28-0400 Body weight 64.23 [address] [facility] 10-12-2018 09:28-0400 BP Diastolic 69 mm[Hg] Tae Robertson [facility] 10-12-2018 09:28-0400 BP Systolic 116 mm[Hg] Tae Robertson [facility] 10-12-2018 09:28-0400 Height 162.6 cm Tae Robertson [facility] 10-12-2018 09:28-0400 Pulse (Heart Rate) 65 /min Tae Robertson [facility] 10-12-2018 09:28-0400 Pulse Oximetry 98 % Tae Robertson [facility] 09-16-2018 10:08-0400 BMI (Body Mass Index) 24.48 kg/m2 Demi Marquez [facility] 09-16-2018 10:08-0400 Body weight 64.68 kg Demi Marquez [facility] 09-16-2018 10:08-0400 BP Diastolic 71 mm[Hg] [facility]16-2018 10:08-0400 BP Systolic 116 mm[Hg] [facility] 09-16-2018 10:08-0400 Height 162.6 cm [facility] 09-16-2018 10:08-0400 Pulse (Heart Rate) 69 /min [facility] 09-16-2018 10:08-0400 Pulse Oximetry 99 % Demi Marquez [facility] 08-25-2018 12:05-0400 Body Temperature 98.4 [degF] [facility] 08-25-2018 12:05-0400 BP Diastolic 60 mm[Hg] [facility] 08-25-2018 12:05-0400 BP Systolic 102 mm[Hg] [facility] 08-25-2018 12:05-0400 Pulse (Heart Rate) 70 /min [facility] 08-25-2018 12:05-0400 Pulse Oximetry 97 % [facility] 08-25-2018 12:05-0400 Respiratory Rate 16 /min [facility] 08-25-2018 03:35-0400 BMI (Body Mass Index) 24.64 kg/m2 [facility] 08-25-2018 03:35-0400 Weight 65.1 kg Dell Rivers [facility] 08-23-2018 06:04-0400 Height 162.6 cm Dell Rivers [facility] 06-30-2018 08:28-0400 BMI (Body Mass Index) 24.92 kg/m2 Caitie Mclaughlin [facility] 06-30-2018 08:28-0400 Body Temperature 97.5 [degF] Caitie Mclaughlin [facility] 06-30-2018 08:28-0400 Body weight 65.86 kg Caitie Mclaughlin [facility] 06-30-2018 08:28-0400 BP Diastolic 76 mm[Hg] Caitie Mclaughlin [facility] 06-30-2018 08:28-0400 BP Systolic 128 mm[Hg] Caitie Mclaughlin [facility] 06-30-2018 08:28-0400 Height 162.6 cm Caitie Mclaughlin [facility] 06-30-2018 08:28-0400 Pulse (Heart Rate) 64 /min Caitierodolfo Mclaughlin [facility] 06-30-2018 08:28-0400 Pulse Oximetry 98 % Caitie Mclaughlin [facility] 06-30-2018 08:28-0400 Respiratory Rate 16 /min Caitie Mclaughlin [facility] 06-23-2018 09:23-0400 BP Diastolic 80 mm[Hg] Caitie Mclaughlin [facility] 06-23-2018 09:23-0400 BP Systolic 136 mm[Hg] Caitie Mclaughlin [facility] 06-23-2018 08:41-0400 BMI (Body Mass Index) 25.37 kg/m2 Caitie Mclaughlin [facility] 06-23-2018 08:41-0400 Body Temperature 97.5 [degF] Caitie Mclaughlin [facility] 06-23-2018 08:41-0400 Height 162.6 cm Caitie Mclaughlin [facility] 06-23-2018 08:41-0400 Pulse (Heart Rate) 72 /min Caitie Mclaughlin [facility] 06-23-2018 08:41-0400 Pulse Oximetry 98 % Caitie Mclaughlin [facility] 06-23-2018 08:41-0400 Respiratory Rate 16 /min Caitierodolfo Mclaughlin [facility] 06-23-2018 08:41-0400 Weight 67.04 kg Caitierodolfo Mclaughlin [facility] 11-02-2017 09:04-0400 BMI (Body Mass Index) 26.26 kg/m2 [facility] 11-02-2017 09:04-0400 Body Temperature 98.1 [degF] [facility] 11-02-2017 09:04-0400 BP Diastolic 77 mm[Hg] [facility] 11-02-2017 09:04-0400 BP Systolic 148 mm[Hg] [facility] 11-02-2017 09:04-0400 Height 162.6 cm [facility] 11-02-2017 09:04-0400 Pulse (Heart Rate) 65 /min [facility] 11-02-2017 09:04-0400 Pulse Oximetry 98 % [facility] 11-02-2017 09:04-0400 Respiratory Rate 16 /min [facility] 11-02-2017 09:04-0400 Weight 69.4 kg [facility] 10-21-2017 14:30-0400 BMI (Body Mass Index) 25.58 kg/m2 [facility] 10-21-2017 14:30-0400 Body Temperature 98.29 [degF] [facility] 10-21-2017 14:30-0400 BP Diastolic 72 mm[Hg] [facility] 10-21-2017 14:30-0400 BP Systolic 152 mm[Hg] [facility] 10-21-2017 14:30-0400 Height 162.6 cm [facility] 10-21-2017 14:30-0400 Pulse (Heart Rate) 60 /min [facility] 10-21-2017 14:30-0400 Pulse Oximetry 98 % [facility] 10-21-2017 14:30-0400 Respiratory Rate 18 /min [facility] 10-21-2017 14:30-0400 Weight 67.59 kg [facility] 10-12-2017 10:00-0400 BMI (Body Mass Index) 25.58 kg/m2 [facility] 10-12-2017 10:00-0400 Body Temperature 98.1 [degF] [facility] 10-12-2017 10:00-0400 BP Diastolic 78 mm[Hg] [facility] 10-12-2017 10:00-0400 BP Systolic 144 mm[Hg] [facility] 10-12-2017 10:00-0400 Height 162.6 cm [facility] 10-12-2017 10:00-0400 Pulse (Heart Rate) 68 /min [facility] 10-12-2017 10:00-0400 Pulse Oximetry 97 % [facility] 10-12-2017 10:00-0400 Respiratory Rate 18 /min [facility] 10-12-2017 10:00-0400 Weight 67.59 kg [facility] 09-08-2017 08:22-0400 BMI (Body Mass Index) 25.75 kg/m2 [facility] 09-08-2017 08:22-0400 Body Temperature 97.9 [degF] [facility] 09-08-2017 08:22-0400 BP Diastolic 78 mm[Hg] [facility] 09-08-2017 08:22-0400 BP Systolic 148 mm[Hg] [facility] 09-08-2017 08:22-0400 Height 162.6 cm [facility] 09-08-2017 08:22-0400 Pulse (Heart Rate) 66 /min [facility] 09-08-2017 08:22-0400 Pulse Oximetry 98 % [facility] 09-08-2017 08:22-0400 Respiratory Rate 18 /min [facility] 09-08-2017 08:22-0400 Weight 68.04 kg [facility] 06-09-2017 08:26-0400 BMI (Body Mass Index) 26.21 kg/m2 [facility] 06-09-2017 08:26-0400 Body Temperature 97.7 [degF] [facility] 06-09-2017 08:26-0400 BP Diastolic 70 mm[Hg] [facility] 06-09-2017 08:26-0400 BP Systolic 107 mm[Hg] [facility] 06-09-2017 08:26-0400 Height 162.6 cm [facility] 06-09-2017 08:26-0400 Pulse (Heart Rate) 66 /min [facility] 06-09-2017 08:26-0400 Pulse Oximetry 97 % [facility] 06-09-2017 08:26-0400 Respiratory Rate 16 /min [facility] 06-09-2017 08:26-0400 Weight 69.26 kg [facility] 03-26-2017 08:57-0500 BMI (Body Mass Index) 25.49 kg/m2 [facility] 03-26-2017 08:57-0500 BP Diastolic 68 mm[Hg] [facility] 03-26-2017 08:57-0500 BP Systolic 115 mm[Hg] [facility]: 03-26-2017 08:57-0500 Height 164.5 cm [facility]: 03-26-2017 08:57-0500 Pulse (Heart Rate) 63 /min [facility]: 03-26-2017 08:57-0500 Respiratory Rate 12 /min Lacho Leon [facility] Work Phone: 03-26-2017 08:57-0500 Weight 68.95 kg [facility]: 03-12-2017 10:44-0500 BMI (Body Mass Index) 27.28 kg/m2 [facility]: 03-12-2017 10:44-0500 Body Temperature 98.01 [degF] [facility]: 03-12-2017 10:44-0500 BP Diastolic 82 mm[Hg] Americo Peña [facility] Work Phone: 03-12-2017 10:44-0500 BP Systolic 131 mm[Hg] [facility]: 03-12-2017 10:44-0500 Height 162.6 cm Americo Peña [facility] Work Phone: 03-12-2017 10:44-0500 Pulse (Heart Rate) 64 /min Americo Peña [facility] Work Phone: 03-12-2017 10:44-0500 Pulse Oximetry 96 % [facility] [employer] Work [facility]: 03-12-2017 10:44-0500 Respiratory Rate 16 /min [facility] Work [facility]: 03-12-2017 10:44-0500 Weight 72.08 kg [facility] [employer] Work Phone: 01-27-2017 15:18-0500 BMI (Body Mass Index) 25.75 kg/m2 [facility] Work Phone: 01-27-2017 15:18-0500 Body Temperature 98.1 [degF] [facility] Work Phone: 01-27-2017 15:18-0500 BP Diastolic 81 mm[Hg] [facility] Work Phone: 01-27-2017 15:18-0500 BP Systolic 138 mm[Hg] [facility] Work Phone: 01-27-2017 15:18-0500 Height 162.6 cm [facility] Work Phone: 01-27-2017 15:18-0500 Pulse (Heart Rate) 71 /min [facility] [employer] Work Phone: 01-27-2017 15:18-0500 Pulse Oximetry 98 % [facility] [employer] Work Phone: 01-27-2017 15:18-0500 Respiratory Rate 18 /min [facility] [employer] Work Phone: 01-27-2017 15:18-0500 Weight 68.04 kg [facility] Work Phone: 12-10-2016 10:22-0400 BP Diastolic 69 mm[Hg] [facility] [employer] Work Phone: 12-10-2016 10:22-0400 BP Systolic 113 mm[Hg] [facility] [employer] Work Phone: 12-10-2016 10:22-0400 Pulse (Heart Rate) 58 /min [facility] [employer] Work Phone: Encounters Encounter Date Encounter Type Care Provider Facility Start: 11-02-2024 Encounter for genera l adult medical examination without abnormal findings CLAUDINE GASTELUM [facility] Start: 11-02-2024 Encounter for preprocedural cardiovascular examination CLAUDINE GASTELUM [facility] Start: 11-02-2024 End: 11-10-2024 Evaluation and management of inpatient CLAUDINE GASTELUM [facility] Start: 11-02-2024 End: 11-10-2024 Patient encounter procedure Viv Hansen DO Work Phone: [facility] Start: 11-02-2024 End: 11-10-2024 Patient encounter status Viv Hansen DO Work Phone: [facility] Start: 10-31-2024 End: 10-31-2024 [facility] Start: 10-27-2024 End: 10-27-2024 Emergency department patient visit Lizeth Comer DO Work Phone: [facility] Comment on above: Nausea and vomiting, unspecified vomiting type (Primary Dx) Start: 10-27-2024 ambulatory CLAUDINE GLASS [facility] Start: 10-17-2024 End: 10-17-2024 Refill Rocael Mcleod MD Work Phone: [facility] Start: 10-13-2024 End: 10-13-2024 Refill Rocael Mcleod MD Work Phone: [facility] Start: 09-28-2024 End: 09-28-2024 Refill Claudine Majano MD Work Phone: [facility] Start: 09-23-2024 End: 09-23-2024 Office outpatient visit 25 minutes Claudine Majano MD Work Phone: [facility] Comment on above: Dizziness (Primary D x); Spinal stenosis, 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 neurogenic claudication; At moderate risk for fall; Primary hypertension; Essential hypertension; Mixed hyperlipidemia; Dysuria; Admission for therapeutic drug monitoring; Abnormal finding of blood chemistry, unspecified Start: 09-23-2024 End: 09-23-2024 [facility] Start: 09-12-2024 End: 09-12-2024 Refill Samantha Ellsworth MA [facility] Start: 09-08-2024 End: 09-08-2024 Refill Tana Hampton LPN [facility] Start: 08-23-2024 End: 08-23-2024 Documentation procedure Claudine Majano MD Work Phone: [facility] Start: 08-23-2024 [facility] Start: 08-18-2024 ambulatory CLAUDINE Castillo [facility] Start: 08-10-2024 End: 08-10-2024 Office outpatient visit 25 minutes Jake Navarro DO Work Phone: [facility] [place] Comment on above: Failed back surgical syndrome Start: 08-10-2024 End: 08-10-2024 ambulatory CLAUDINE MONTGOMERY [facility] Start: 08-04-2024 End: 08-04-2024 Documentation procedure Claudine Majano MD Work Phone: [facility] Start: 07-27-2024 End: 08-03-2024 Refill Jake Navarro DO Work Phone: [facility] [place] Comment on above: Failed back surgical syndrome Start: 07-22-2024 End: 07-22-2024 Documentation procedure Claudine Majano MD Work Phone: [facility] Start: 07-19-2024 End: 09-18-2024 Follow-up encounter Claudine Majano MD Work Phone: [facility] Comment on above: CBC and Differential , TSH with Reflex Free T4, Lipid Panel, Comprehensive Metabolic Panel Start: 07-18-2024 End: 07-18-2024 Patient encounter procedure Claudine Majano MD Work Phone: [facility] Comment on above: Medicare annual well ness visit, subsequent (Primary Dx); Spinal stenosis, 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 neurogenic claudication; Osteoporosis, unspecified osteoporosis type, unspecified pathological fracture presence; Dementia, unspecified dementia severity, unspecified dementia type, unspecified whether behavioral, psychotic, or mood disturbance or anxiety (HCC); Moderate major depression (HCC); Dizziness; At moderate risk for fall; Abnormal findings on diagnostic imaging of other specified body structures; Abnormal finding of blood chemistry, unspecified; At high risk for falls Start: 07-18-2024 End: 07-18-2024 ambulatory CLAUDINE MAJANO [facility] Start: 07-18-2024 End: 07-18-2024 Encounter for general adult medical examination without abnormal findings CLAUDINE MONTGOMERY [facility] Start: 07-11-2024 End: 07-11-2024 Documentation procedure Claudine Majano MD Work Phone: [facility] Comment on above: MW[facility] OUTREACH (APPT O N 07/18/2024) Start: 06-27-2024 End: 06-27-2024 Refill Jake Navarro DO Work Phone: [facility] [place] Comment on above: Failed back surgical syndrome Start: 06-13-2024 End: 06-13-2024 Documentation procedure Claudine Majano MD Work Phone: [facility] Comment on above: [facility] Start: 06-06-2024 End: 06-06-2024 Office outpatient visit 25 minutes Donna Schroeder MD Work Phone: [facility] Comment on above: 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 (Primary Dx); Essential hypertension; Chronic systolic heart failure (HCC); At risk for prolonged QT interval syndrome; Hyperlipidemia, unspecified hyperlipidemia type Start: 06-06-2024 End: 06-06-2024 ambulatory CLAUDINE MONTGOMERY [facility] Start: 06-03-2024 End: 06-03-2024 Documentation procedure Claudine Majano MD Work Phone: [facility] Comment on above: [facility] Start: 06-01-2024 End: 06-01-2024 Documentation procedure Claudine Majano MD Work Phone: [facility] Comment on above: [facility] Start: 05-24-2024 End: 05-24-2024 Office outpatient visit 15 minutes Claudine Majano MD Work Phone: [facility] Comment on above: Primary hypertension (Primary Dx); Moderate major depression (HCC); Thyroid nodule Start: 05-24-2024 End: 05-24-2024 [facility] Start: 05-19-2024 End: 05-19-2024 Documentation procedure Claudine Majano MD Work Phone: [facility] Comment on above: [facility] - FOR REVIEW ONLY Start: 05-12-2024 End: 05-12-2024 Office outpatient visit 25 minutes Jake Navarro DO Work Phone: [facility] [place] Comment on above: At risk for prolonge d QT interval syndrome (Primary Dx); Failed back surgical syndrome Start: 05-12-2024 End: 05-12-2024 Refill Rocael Mcleod MD Work Phone: [facility] Start: 04-26-2024 End: 04-26-2024 Orders Only Clotilde Duffy CNP Work Phone: [facility] [place] Comment on above: 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 Start: 04-21-2024 ambulatory CLAUDINE GLASS [facility] Start: 04-19-2024 ambulatory CLAUDINE GLASS [facility] Start: 04-18-2024 ambulatory CLAUDINE NIRAV GLASS [facility] Start: 04-13-2024 End: 04-13-2024 Office outpatient visit 25 minutes Jake Navarro DO Work Phone: [facility] [place] Comment on above: Lumbar spondylosis ( Primary Dx) Start: 04-13-2024 End: 04-13-2024 ambulatory CLAUDINE ALDANABRYNN [facility] Start: 04-12-2024 End: 04-12-2024 Refill Claudine Majano MD Work Phone: [facility] Comment on above: Degenerative disc di sease, lumbar Start: 04-08-2024 ambulatory CLAUDINE GLASS [facility] Start: 04-05-2024 End: 04-05-2024 Office outpatient visit 25 minutes Claudine Majano MD Work Phone: [facility] Comment on above: Fall, initial encoun ter (Primary Dx); Benign carcinoid tumor of duodenum; Chronic systolic heart failure (HCC); Chronic bronchitis, unspecified chronic bronchitis type (HCC); Moderate major depression (HCC); Primary hypertension; Left thyroid nodule; Anxiety Start: 04-05-2024 End: 04-05-2024 ambulatory CLAUDINE NIRAV VALENTINA [facility] Start: 03-24-2024 ambulatory CLAUDINE GLASS [facility] Start: 03-16-2024 End: 03-16-2024 Emergency department patient visit CLAUDINE ALDANABRYNN [facility] Start: 02-24-2024 ambulatory CLAUDINE GLASS [facility] Start: 02-08-2024 ambulatory CLAUDINE NIRAV GLASS [facility] Start: 01-28-2024 ambulatory CLAUDINE NIRAV GLASS [facility] Start: 01-21-2024 End: 01-21-2024 ambulatory [facility] Start: 01-13-2024 ambulatory CLAUDINE GLASS [facility] Start: 01-08-2024 End: 01-08-2024 Refill Claudine Majano MD Work Phone: [facility] Start: 01-08-2024 ambulatory CLAUDINE THOMASAlex [facility] Start: 01-07-2024 End: 01-07-2024 Admission to same day surgery center Clotilde Duffy CNP Work Phone: [facility] [place] Comment on above: Lumbar spondylosis ( Primary Dx) Start: 01-07-2024 ambulatory CLAUDINE GLASS [facility] Ambulatory Start: 01-01-2024 End: 01-01-2024 Office outpatient visit 25 minutes Jake Navarro DO Work Phone: [facility] [place] Comment on above: Failed back surgical syndrome (Primary Dx) Start: 01-01-2024 End: 01-01-2024 [facility] Start: 12-31-2023 ambulatory CLAUDINE NIRAV DORSEYALENAR [facility] Ambulatory Start: 12-24-2023 End: 12-24-2023 ambulatory CLAUDINEALVARO [facility] Ambulatory Start: 12-21-2023 ambulatory CLAUDINE NIRAV DORSEYALENAR [facility] Ambulatory Start: 12-16-2023 ambulatory CLAUDINE GLASS [facility] Ambulatory Start: 12-10-2023 End: 12-10-2023 [facility] Start: 12-09-2023 End: 12-09-2023 Orders Only Claudine Majano MD Work Phone: [facility] Comment on above: Abnormal urine findi ngs (Primary Dx) Start: 12-01-2023 End: 12-01-2023 [facility] Start: 11-17-2023 ambulatory CLAUDINE GLASS [facility] Ambulatory Start: 11-04-2023 End: 11-04-2023 Office outpatient visit 25 minutes Rocael Mcleod MD Work Phone: [facility] Comment on above: Trigeminal neuralgia of left side of face (Primary Dx) Start: 11-04-2023 End: 11-04-2023 ambulatory CLAUDINE MAJANO [facility] Ambulatory Start: 10-16-2023 End: 10-16-2023 Refill Tana Hampton LPN [facility] Start: 10-13-2023 End: 10-13-2023 Office outpatient visit 10 minutes Eleanorsoumya Gaming CNP Work Phone: [facility] Comment on above: Skin tear of elbow w ithout complication, left, subsequent encounter (Primary Dx) Start: 10-01-2023 End: 10-01-2023 ambulatory [facility] Facility:[facility] Start: 09-30-2023 End: 09-30-2023 Refill Rocael Mcleod MD Work Phone: [facility] Start: 09-28-2023 End: 09-28-2023 Admission to same day surgery center Jake Zhouta DO Work Phone: [facility] [place] Comment on above: Lumbar spondylosis ( Primary Dx) Start: 09-28-2023 End: 09-28-2023 Office outpatient visit 25 minutes Jake Melanie DO Work Phone: [facility] [place] Comment on above: DDD (degenerative di sc disease), lumbar Start: 09-22-2023 End: 09-22-2023 Documentation procedure Dacia Smyth MA [facility] Start: 09-08-2023 End: 09-23-2023 Refill Jake Melanie DO Work Phone: [facility] [place] Comment on above: Essential hypertensi on; DDD (degenerative disc disease), lumbar Start: 08-28-2023 Refill Dayami Medrano LPN [facility] Start: 08-08-2023 Refill Claudine Majano MD Work Phone: [facility] Comment on above: Degenerative disc di sease, lumbar (Primary Dx) Start: 07-21-2023 End: 07-21-2023 Transitional care manage srvc 14 day discharge Claudine Majano MD Work Phone: [facility] Comment on above: Hypokalemia (Primary Dx); Chronic systolic heart failure (HCC); Leg swelling; Primary hypertension Start: 07-10-2023 ambulatory Maribell Cabrera RN [facility] Start: 07-07-2023 End: 07-09-2023 Evaluation and management of inpatient [facility] Work Phone: [facility] Start: 07-07-2023 Encounter for preprocedural cardiovascular examination [facility] Start: 07-07-2023 End: 07-07-2023 Office outpatient visit 40 minutes Claudine Majano MD Work Phone: [facility] Comment on above: Preop cardiovascular exam (Primary Dx); Acute myocardial infarction, unspecified IA type, unspecified artery (HCC); Benign carcinoid tumor of duodenum; Chronic systolic heart failure (HCC); Chronic bronchitis, unspecified chronic bronchitis type (HCC); Moderate major depression (HCC); Coagulation disorder (HCC); Ataxia Start: 07-07-2023 End: 07-07-2023 Patient encounter status Claudine Majano MD Work Phone: [facility] Work Phone: Start: 07-02-2023 End: 07-02-2023 Orders Only Clotilde Duffy CNP Work Phone: [facility] [place] Start: 06-26-2023 End: 06-26-2023 Office outpatient visit 25 minutes Jake Navarro DO Work Phone: [facility] [place] Comment on above: DDD (degenerative di sc disease), lumbar Start: 06-18-2023 End: 06-18-2023 ambulatory [facility] Start: 06-05-2023 Refill Jake ramachandran DO Work Phone: [facility] [place] Comment on above: DDD (degenerative di sc disease), lumbar Start: 06-01-2023 Admission to [facility] Jake Navarro DO Work Phone: [facility] [place] Comment on above: Lumbar spondylosis ( Primary Dx) Start: 05-20-2023 End: 05-20-2023 Office outpatient visit 40 minutes Rocael Mcleod MD Work Phone: [facility] Comment on above: Trigeminal neuralgia of left side of face (Primary Dx) Start: 05-19-2023 Orders Only Claudine Majano MD Work Phone: [facility] Comment on above: Dysuria (Primary Dx) Start: 05-13-2023 Orders Only Clotilde Duffy CNP Work Phone: [facility] [place] Comment on above: Acute ST elevation m yocardial infarction (STEMI) of inferior wall (HCC) (Primary Dx); Coronary artery disease 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 Start: 05-11-2023 End: 05-11-2023 Patient encounter procedure Claudine Majano MD Work Phone: [facility] Comment on above: At low risk for fall (Primary Dx); Mild left ventricular systolic dysfunction; 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-sided sciatica; Medicare annual wellness visit, subsequent; Moderate major depression (HCC); Right ankle swelling; Leg swelling; Benign carcinoid tumor of duodenum; Chronic systolic heart failure (HCC); Chronic bronchitis, unspecified chronic bronchitis type (HCC); Coagulation disorder (HCC); Stage 3 chronic kidney disease, unspecified whether stage 3a or 3b CKD (HCC); Primary hypertension; Spinal stenosis, 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 neurogenic claudication; Dysuria; Upper respiratory tract infection, unspecified type; Frequent UTI; At moderate risk for fall; Encounter for follow-up examination after completed treatment for conditions other than malignant neoplasm Start: 04-30-2023 Orders Only Clotilde Nam Clive FONSECA Work Phone: [facility] [place] Start: 04-28-2023 Refill Caitie Alvarez LPN [facility] Comment on above: Essential hypertensi on; Acute myocardial infarction, unspecified IA type, unspecified artery (HCC) Start: 04-22-2023 Admission to [facility] Jake Navarro DO Work Phone: [facility] [place] Comment on above: Lumbar spondylosis ( Primary Dx) Start: 04-22-2023 End: 04-22-2023 Office outpatient new 45 minutes Jake Navarro DO Work Phone: [facility] [place] Comment on above: DDD (degenerative di sc disease), lumbar (Primary Dx); Trigeminal neuralgia of left side of face; Closed fracture of multiple pubic rami, unspecified laterality, initial encounter ([facility]) Start: 04-20-2023 Orders Only Claudine Majano MD Work Phone: [facility] Comment on above: Dysuria (Primary Dx) Start: 04-11-2023 Orders Only Claudine Majano MD Work Phone: [facility] Comment on above: Elevated creatine ki nase (Primary Dx); Elevated serum creatinine Start: 03-27-2023 End: 03-27-2023 Phys/qhp telephone evaluation 21-30 min Claudine Majano MD Work Phone: [facility] Comment on above: Moderate major depre ssion ([facility]) (Primary Dx); Mild left ventricular systolic dysfunction; Hypertension, unspecified type Start: 03-24-2023 Refill Tana Hampton LPN [facility] Start: 03-23-2023 End: 03-23-2023 ambulatory [facility] Ambulatory Start: 03-23-2023 End: 03-23-2023 Office outpatient visit 25 minutes Rick Zavala DO Work Phone: [facility] Comment on above: Chronic GERD (Primar y Dx); History of benign carcinoid tumor; Bile reflux gastritis Start: 03-16-2023 Refill Brayan Mena MD Work Phone: [facility] Start: 03-13-2023 Refill Brayan Mena MD Work Phone: [facility] Comment on above: Trigeminal neuralgia Start: 03-12-2023 Refill Lesley Bailey RN [facility] Start: 03-05-2023 Refill Dayami Medrano LPN [facility] Comment on above: Hypokalemia (Primary Dx) Start: 02-24-2023 End: 02-24-2023 Office outpatient visit 25 minutes Claudine Majano MD Work Phone: [facility] Comment on above: Moderate major depre ssion (HCC) (Primary Dx); Benign carcinoid tumor of duodenum; Trigeminal neuralgia of left side of face Start: 02-18-2023 Orders Only Brayan Mena MD Work Phone: [facility] Comment on above: Trigeminal neuralgia of left side of face (Primary Dx) Start: 01-20-2023 Refill Samantha Ellsworth MA [facility] Start: 01-01-2023 Orders Only Brayan Mena MD Work Phone: [facility] Comment on above: Trigeminal neuralgia (Primary Dx) Start: 12-22-2022 Refill Michael Archer MA [facility] Comment on above: Medication Refill Start: 12-19-2022 Refill Lesley Bailey RN [facility] Comment on above: Chronic systolic hea rt failure (HCC); Essential hypertension; Trigeminal neuralgia Start: 12-17-2022 Orders Only Brayan Mena MD Work Phone: [facility] Comment on above: Trigeminal neuralgia (Primary Dx) Start: 12-03-2022 Refill Brayan Mena MD Work Phone: [facility] Start: 11-27-2022 End: 11-27-2022 Clinical Support Lesley Bailey RN [facility] Start: 10-24-2022 End: 10-24-2022 Office outpatient visit 40 minutes Claudine Majano MD Work Phone: [facility] Comment on above: Stage 3 chronic kidn ey disease, unspecified whether stage 3a or 3b CKD (HCC) (Primary Dx); 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-sided sciatica; Mixed hyperlipidemia; Right ankle swelling; Prediabetes; Spinal stenosis, 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 neurogenic claudication; Hyponatremia; Coronary artery disease 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 Start: 09-16-2022 End: 09-16-2022 Office outpatient visit 25 minutes Donna Schroeder MD Work Phone: [facility] Comment on above: 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 (Primary Dx); Essential hypertension; Chronic systolic heart failure (HCC); Mixed hyperlipidemia Start: 09-02-2022 End: 09-02-2022 Office outpatient visit 15 minutes Carolina Clark CNP Work Phone: [facility] Comment on above: Left hip pain (Prima ry Dx); Chronic left SI joint pain; DDD (degenerative disc disease), lumbar Start: 08-05-2022 Refill Paramxaigor Mares RN [facility] Comment on above: Medication Refill Start: 07-10-2022 End: 07-10-2022 Admission to same day surgery center [facility] Start: 07-10-2022 End: 07-10-2022 ambulatory [facility] Work Phone: Start: 07-08-2022 End: 07-08-2022 Office outpatient visit 25 minutes Brayan Mena MD Work Phone: [facility] Comment on above: Trigeminal neuralgia (Primary Dx) Start: 06-30-2022 Refill Annita Guerra MA [facility] Comment on above: Simple chronic bronc hitis (HCC) Start: 06-13-2022 End: 06-13-2022 Office outpatient visit 25 minutes Claudine Majano MD Work Phone: [facility] Comment on above: Anxiety (Primary Dx) ; Left hip pain; Trigeminal neuralgia of left side of face Start: 04-16-2022 End: 04-16-2022 Transitional care manage srvc 14 day discharge Claudine Majano MD Work Phone: [facility] Comment on above: Frequent UTI (Primar y Dx); Mixed incontinence urge and stress; Chronic bronchitis, unspecified chronic bronchitis type (HCC); Type 2 diabetes mellitus with chronic kidney disease, without long-term current use of insulin, unspecified CKD stage (HCC); Stage 3 chronic kidney disease, unspecified whether stage 3a or 3b CKD (HCC); Hyponatremia; Dermatitis; Vulvovaginal discomfort Start: 04-04-2022 End: 04-05-2022 Subsequent hospital visit by physician [facility] Work Phone: [facility] Start: 04-02-2022 Refill Caitie Alvarez LPN [facility] Comment on above: Essential hypertensi on; Acute myocardial infarction, unspecified IA type, unspecified artery (HCC) Start: 03-24-2022 Refill Caitie Alvarez LPN [facility] Comment on above: Mixed incontinence u rge and stress; Mixed hyperlipidemia Start: 03-12-2022 Refill Lesley Bailey RN [facility] Comment on above: Simple chronic bronc hitis (HCC) Start: 02-17-2022 Refill Caitie Alvarez LPN [facility] Comment on above: Essential hypertensi on; Acute myocardial infarction, unspecified IA type, unspecified artery (HCC) Start: 02-11-2022 Encounter for genera l adult medical examination without abnormal findings CLAUDINE MAJANO [facility] Ambulatory Start: 02-11-2022 End: 02-11-2022 Patient encounter procedure Claudine Majano MD Work Phone: [facility] Comment on above: At low risk for fall (Primary Dx); Mixed incontinence urge and stress; Medicare annual wellness visit, subsequent; Right ankle swelling Start: 01-28-2022 Refill Caitie Alvarez LPN [facility] Start: 01-16-2022 Office outpatient vi sit 15 minutes Gisell Desai Work Phone: [facility] [facility] [address] Work Phone: Start: 01-08-2022 End: 01-08-2022 Office outpatient visit 25 minutes Brayan Mena MD Work Phone: [facility] Comment on above: Trigeminal neuralgia Start: 01-01-2022 Documentation procedure Caitie lugo LPN [facility] Comment on above: PA initiated for Lon puala Start: 12-16-2021 End: 12-16-2021 Office outpatient visit 10 minutes Carolina Clark CNP Work Phone: [facility] Comment on above: Left hip pain (Prima ry Dx) Start: 12-04-2021 End: 12-04-2021 ambulatory Carolina Clark [employer] Work Phone: [facility] Comment on above: Lumbar degenerative disc disease (Primary Dx) Start: 11-27-2021 End: 11-27-2021 ambulatory Carolina Clark [employer] Work Phone: [facility] Comment on above: Lumbar degenerative disc disease (Primary Dx) Start: 11-25-2021 End: 11-25-2021 ambulatory Carolina Clark [employer] Work Phone: [facility] Comment on above: Lumbar degenerative disc disease (Primary Dx) Start: 11-20-2021 End: 11-20-2021 ambulatory Carolina Clark [employer] Work Phone: [facility] Comment on above: Lumbar degenerative disc disease (Primary Dx) Start: 11-18-2021 End: 11-18-2021 ambulatory Carolina Clark [employer] Work Phone: [facility] Comment on above: Lumbar degenerative disc disease (Primary Dx) Start: 11-14-2021 End: 11-14-2021 ambulatory Carolina Clark [employer] Work Phone: [facility] Comment on above: DDD (degenerative di sc disease), lumbar; Lumbar degenerative disc disease Start: 11-12-2021 End: 11-12-2021 Office outpatient visit 25 minutes Donna Schroeder MD Work Phone: [facility] Comment on above: 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 (Primary Dx); Mixed hyperlipidemia; Chronic systolic heart failure (HCC) Start: 11-05-2021 End: 11-05-2021 Office outpatient new 20 minutes Gabi Xie MD Work Phone: [facility] Comment on above: DDD (degenerative di sc disease), lumbar (Primary Dx); Chronic left SI joint pain; Left hip pain Start: 10-25-2021 Refill Caitie Alvarez LPN [facility] Comment on above: Gastroesophageal ref lux disease Start: 10-17-2021 Orders Only Gabi Xie MD Work Phone: [facility] Comment on above: Chronic left SI join t pain (Primary Dx); Closed fracture of multiple pubic rami, unspecified laterality, initial encounter ([facility]); Left hip pain Start: 10-16-2021 Orders Only Brayan Mena MD Work Phone: [facility] Comment on above: Trigeminal neuralgia (Primary Dx) Start: 10-16-2021 End: 10-16-2021 Office outpatient visit 15 minutes Gabi Xie MD Work Phone: [facility] Comment on above: At moderate risk for fall (Primary Dx); Dysuria; Left hip pain Start: 10-03-2021 Orders Only Brayan Mena MD Work Phone: [facility] Comment on above: Trigeminal neuralgia (Primary Dx) Start: 09-19-2021 Orders Only Brayan Mena MD Work Phone: [facility] Comment on above: Trigeminal neuralgia Start: 09-18-2021 Orders Only Brayan Mena MD Work Phone: [facility] Comment on above: Trigeminal neuralgia (Primary Dx) Start: 09-11-2021 Refill Kiara roque MA [facility] Comment on above: Mixed hyperlipidemia Start: 09-05-2021 Orders Only Brayan Mena MD Work Phone: [facility] Comment on above: Trigeminal neuralgia (Primary Dx) Start: 07-23-2021 Orders Only Brayan Mena MD Work Phone: [facility] Comment on above: Trigeminal neuralgia (Primary Dx) Start: 07-12-2021 End: 07-12-2021 Office outpatient visit 40 minutes Brayan Mena MD Work Phone: [facility] Comment on above: Trigeminal neuralgia (Primary Dx) Start: 07-01-2021 Refill Blayne Machado MA [facility] Comment on above: Medication Refill Start: 05-30-2021 End: 05-30-2021 Office outpatient visit 25 minutes Gisell Desai [employer] Work Phone: [facility] Comment on above: Urinary frequency (P rimary Dx); Acute cystitis with hematuria Start: 03-15-2021 Refill Lesley Bailey RN [facility] Start: 03-15-2021 End: 03-15-2021 Office outpatient visit 25 minutes Gisell [employer] Work Phone: [facility] Comment on above: Type 2 diabetes nora itus without complication, without long- term current use of insulin (HCC) (Primary Dx); Primary hypertension; Mixed hyperlipidemia; Vitamin D deficiency Start: 02-19-2021 Office outpatient vi sit 25 minutes Gisell Castillo [employer] Work Phone: [facility] [address] Work Phone: Start: 02-12-2021 End: 02-12-2021 Office outpatient visit 25 minutes Donna Schroeder MD Work Phone: [facility] Comment on above: 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 (Primary Dx); Chronic systolic heart failure (HCC); Mixed hyperlipidemia Start: 01-30-2021 Refill Annita Guerra MA [facility] Comment on above: Simple chronic bronc hitis (HCC) Start: 01-11-2021 Refill Lesley Bailey RN [facility] Comment on above: Essential hypertensi on; Acute myocardial infarction, unspecified IA type, unspecified artery (HCC) Start: 01-07-2021 Refill Kiara roque MA [facility] Comment on above: Essential hypertensi on; Acute myocardial infarction, unspecified IA type, unspecified artery (HCC) Start: 01-01-2021 Refill Lesley Bailey RN [facility] Comment on above: Gastroesophageal ref lux disease Start: 12-31-2020 Refill Brayan Mena MD Work Phone: [facility] Start: 09-27-2020 End: 09-27-2020 Office outpatient visit 15 minutes Gisell Desai CNP Work Phone: [facility] Comment on above: Essential hypertensi on; Dizziness Start: 09-13-2020 End: 09-13-2020 Refill Kenisha Washburn LPN [facility] Start: 09-03-2020 End: 09-03-2020 Phys/qhp telephone evaluation 11-20 min Gisell Desai CNP Work Phone: [facility] Comment on above: Essential hypertensi on (Primary Dx); Acute myocardial infarction, unspecified IA type, unspecified artery (HCC) Start: 08-14-2020 End: 08-14-2020 Office outpatient visit 25 minutes Tae Robertson MD Work Phone: [facility] Comment on above: 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; Stage 3 chronic kidney disease, unspecified whether stage 3a or 3b CKD; Degenerative disc disease, lumbar; Mixed hyperlipidemia; Essential hypertension Start: 08-09-2020 Office outpatient vi sit 15 minutes Gisell Desai Work Phone: [facility] 300 Work Phone: Start: 07-26-2020 End: 07-26-2020 Refill Tae Robertson MD Work Phone: [facility] Comment on above: Medication Refill Start: 07-25-2020 End: 07-25-2020 Office outpatient visit 25 minutes Gisell Desai [employer] Work Phone: [facility] Comment on above: Essential hypertensi on (Primary Dx); Simple chronic bronchitis (HCC); Uncontrolled pain Start: 06-16-2020 End: 06-16-2020 Refill Tae Robertson Work Phone: [facility] Comment on above: Medication Refill Start: 04-30-2020 End: 04-30-2020 Refill Autumn Mattson [facility] Comment on above: Mixed stress and urg e urinary incontinence; 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-sided sciatica; Depression, unspecified depression type Start: 04-19-2020 End: 04-19-2020 Phys/qhp telephone evaluation 5-10 min Gisell Desai Work Phone: [facility] Comment on above: Status post right hi p replacement Start: 04-18-2020 Patient encounter procedure Nena Cabrera [facility] 300 Work Phone: Start: 04-16-2020 End: 04-16-2020 Refill Margarita Henley [facility] Start: 04-10-2020 End: 04-10-2020 Patient encounter procedure Lara Hector [facility] Comment on above: Complex Care Managem ent (Home Needs) Start: 04-09-2020 End: 04-09-2020 Orders Only Gisell Desai Work Phone: [facility] Comment on above: S/P right hip fractu re (Primary Dx) Start: 04-02-2020 Patient encounter procedure Nena Cabrera [facility] 300 Work Phone: Start: 03-30-2020 [facility] 300 Work Phone: Start: 03-27-2020 End: 03-27-2020 Phys/qhp telephone evaluation 11-20 min Gisell Desai Work Phone: [facility] Comment on above: Chronic left-sided l ow back pain with left-sided sciatica; Depression, unspecified depression type Start: 03-26-2020 [facility] 300 Work Phone: Start: 03-26-2020 End: 03-26-2020 Refill Kenisha Washburn [facility] Start: 03-23-2020 Patient encounter procedure Nena Cabrera [facility] 300 Work Phone: Start: 03-23-2020 End: 03-23-2020 Orders Only Yudi Ryan Work Phone: [facility] Start: 03-21-2020 Patient encounter procedure Nena Cabrera [facility] 300 Work Phone: Start: 03-19-2020 Patient encounter procedure Nena Cabrera [facility] 300 Work Phone: Start: 03-15-2020 End: 03-15-2020 Office outpatient visit 25 minutes Gisell Desai Work Phone: [facility] Comment on above: Chronic left SI join t pain (Primary Dx); Degenerative disc disease, lumbar; 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-sided sciatica; Depression, unspecified depression type Start: 03-14-2020 Patient encounter procedure Collin rs-FXEMGE-[facility] Work Phone: Start: 02-27-2020 End: 02-27-2020 Office outpatient visit 15 minutes Nena Dickerson Work Phone: [facility] Medicine Comment on above: Sciatica, left side (Primary Dx); Spinal stenosis of 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 neurogenic claudication; Lumbar degenerative disc disease Start: 02-18-2020 End: 02-18-2020 Subsequent hospital visit by physician Nena Dickerson Work Phone: [facility] Comment on above: Chronic left-sided l ow back pain without sciatica Start: 01-25-2020 End: 01-25-2020 Office outpatient new 30 minutes [employer] Work Phone: [facility] Comment on above: Chronic left-sided l ow back pain without sciatica (Primary Dx); Chronic left SI joint pain; Sciatica, left side Start: 01-17-2020 End: 01-17-2020 Office outpatient visit 25 minutes Tae Robertson Work Phone: [facility] Comment on above: Mixed hyperlipidemia ; Essential hypertension; Coronary artery disease 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 Start: 01-16-2020 End: 01-16-2020 Office outpatient new 30 minutes [employer] Work Phone: [facility] Comment on above: At low risk for fall (Primary Dx); Mixed stress and urge urinary incontinence; 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, without long-term current use of insulin (HCC); Essential hypertension; Mixed hyperlipidemia; Vitamin D deficiency; Chronic left SI joint pain; Sciatica, left side; Mixed incontinence urge and stress Start: 06-14-2019 End: 06-14-2019 Patient encounter procedure Tae Robertson Work Phone: [facility] Comment on above: 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; Mixed hyperlipidemia; Essential hypertension; Trigeminal neuralgia of left side of face Start: 02-22-2019 End: 02-22-2019 Office outpatient new 45 minutes Americo Peña Work Phone: [facility] Comment on above: Trigeminal neuralgia Start: 01-18-2019 End: 01-18-2019 Office outpatient visit 25 minutes Tae Robertson Work Phone: [facility] Comment on above: Mixed hyperlipidemia ; Essential hypertension; Coronary artery disease without angina pectoris, unspecified vessel or lesion type, unspecified whether soboba or transplanted heart Start: 12-22-2018 End: 12-22-2018 Erroneous Encounter Gisell Desai Work Phone: [facility] Comment on above: ERRONEOUS ENCOUNTER- -DISREGARD (Primary Dx) Start: 12-01-2018 Patient encounter procedure Collin garciatd-NMZGIP-[facility] Work Phone: Start: 11-24-2018 Patient encounter procedure Collin garciaza-KLDUAI-Vers [facility] Work Phone: Start: 10-12-2018 End: 10-12-2018 Office outpatient visit 25 minutes Tae Robertson Work Phone: [facility] Comment on above: Coronary artery dise ase without angina pectoris, unspecified vessel or lesion type, unspecified whether soboba or transplanted heart; Essential hypertension; Mixed hyperlipidemia Start: 09-16-2018 End: 09-16-2018 Office outpatient visit 25 minutes Demi Marquez Work Phone: [facility] Comment on above: Coronary artery dise ase without angina pectoris, unspecified vessel or lesion type, unspecified whether soboba or transplanted heart; Essential hypertension; Mixed hyperlipidemia Start: 09-06-2018 End: 09-06-2018 Patient encounter procedure Glen Nena Fair Work Phone: [facility] Comment on above: S/P PTCA (percutaneo us transluminal coronary angioplasty) (Primary Dx) Start: 08-26-2018 End: 08-26-2018 Patient encounter procedure Lara Blanco [facility] Comment on above: Transition Of Care ( 1st attempt ) Start: 08-24-2018 End: 08-24-2018 Documentation procedure Christine Silver [facility] Comment on above: Cardiac Rehab Consul tation (INPT) Start: 08-24-2018 End: 08-24-2018 Patient encounter procedure Glen Fair Work Phone: [facility] Comment on above: S/P PTCA (percutaneo us transluminal coronary angioplasty) Start: 08-23-2018 End: 08-25-2018 Evaluation and management of inpatient Dell Rivers Work Phone: [facility] Cardiovascular Step Down Comment on above: Acute ST elevation m yocardial infarction (STEMI) of inferolateral wall (HCC) (Primary Dx) Start: 08-12-2018 End: 08-12-2018 Patient encounter procedure Pam Durham [facility] Comment on above: Medicare Wellness Vi sit (rescheduled pt. due to no PCP available) Start: 06-30-2018 End: 06-30-2018 Office outpatient visit 25 minutes Caitie Mclaughlin Work Phone: [facility] Comment on above: Trigeminal neuralgia of left side of face (Primary Dx); Frequent UTI; Essential hypertension Start: 06-23-2018 End: 06-23-2018 Office outpatient visit 25 minutes Caitie Mclaughlin Work Phone: [facility] Comment on above: Trigeminal neuralgia of left side of face (Primary Dx); Essential hypertension; Chronic kidney disease (CKD), stage III (moderate) (HCC); Mixed incontinence urge and stress; Acute cystitis with hematuria; Simple chronic bronchitis (HCC); Vitamin D deficiency Start: 03-23-2018 End: 03-23-2018 Documentation procedure Valdez Hector [facility] Start: 03-22-2018 Patient encounter procedure Americo Peña Facility:[place] Start: 03-22-2018 End: 03-22-2018 Patient encounter procedure Americo Peña Work Phone: [facility] Start: 12-28-2017 Patient encounter procedure Americo Peña Facility:[place] Start: 11-02-2017 End: 11-02-2017 Office outpatient visit 15 minutes Gisell Desai Work Phone: [facility] Start: 10-21-2017 End: 10-21-2017 Office outpatient visit 15 minutes Americo Peña Work Phone: [facility] Comment on above: Abdominal pain, unsp ecified abdominal location (Primary Dx); Iliocostal friction syndrome; Left groin pain Start: 10-12-2017 Patient encounter procedure Gisell Desai Facility:[place] Start: 10-12-2017 End: 10-12-2017 Patient encounter Gisell JonathanEbony Giselle Work Phone: [facility] Start: 10-12-2017 End: 10-12-2017 Office outpatient visit 25 minutes Gisell MEbony Giselle Work Phone: [facility] Start: 09-08-2017 Patient encounter procedure Americo Peña Facility:[place] Start: 09-08-2017 End: 09-08-2017 Office outpatient visit 25 minutes Americo Fausto Peña Work Phone: [facility] Start: 06-09-2017 Patient encounter procedure Americo Peña Facility:[place] Start: 06-09-2017 End: 06-09-2017 Ambulatory Americo Peña Work Phone: [facility] Start: 06-09-2017 End: 06-09-2017 Office/outpatient visit, est, level 4 Americo Lambert Mariana Work Phone: [facility] Start: 03-26-2017 Patient encounter Lacho Leon [facility] Start: 03-12-2017 Office/outpatient vi sit, est, level 3 Americo Lambert Mariana Work Phone: [facility] Start: 01-27-2017 Office/outpatient vi sit, est, level 3 Americo Lambert Mariana Work Phone: [facility] Start: 12-19-2016 End: 12-19-2016 Patient encounter procedure Americo Fausto Peña Work Phone: [facility] Start: 12-10-2016 Office outpatient vi sit 25 minutes Americo Fausto Peña Work Phone: [facility] Start: 11-04-2016 End: 11-04-2016 Ambulatory Marck Peng Work Phone: [facility] Start: 01-18-2015 End: 01-18-2015 REFILL - MYCHART Luana Alexandra MD Work Phone: Neurology Comment on above: Medication Renewal R equest Procedures Date Procedure Procedure Detail Performing Clinician Start: 11-10-2024 Basic metabolic pane l calcium total Placido Schroeder MD Work Phone: Start: 11-07-2024 Basic metabolic pane l calcium total Tamra Dewey MD Work Phone: Start: 11-07-2024 Complete blood count with white cell differential, manual Tamra Dewey MD Work Phone: Start: 11-03-2024 Drug screen quantita tive lamotrigine Rocael Mcleod MD Work Phone: Start: 11-03-2024 Electrocardiogram [facility] Work Phone: Start: 11-03-2024 Basic metabolic pane l calcium total Patience Robledo MD Work Phone: Start: 11-03-2024 Complete blood count with white cell differential, manual Patience Robledo MD Work Phone: Start: 11-02-2024 Mri brain brain stem w/o contrast material Patience Robledo MD Work Phone: Start: 11-02-2024 Culture bacterial quanttative colony count urine Viv Hansen DO Work Phone: Start: 11-02-2024 Radiologic exam ches t single view Viv Hansen DO Work Phone: Start: 11-02-2024 Ecg routine ecg w/le ast 12 lds w/i&r Viv Hansen DO Work Phone: Start: 11-02-2024 Complete blood count with white cell differential, manual Viv Hansen DO Work Phone: Start: 11-02-2024 Comprehensive metabo lic panel Viv Hansen DO Work Phone: Start: 11-02-2024 LAVENDER TOP Viv eckert DO Work Phone: Start: 11-02-2024 MINT GREEN TOP Viv Hansen DO Work Phone: Start: 11-02-2024 RAINBOW DRAW Viv eckert DO Work Phone: Start: 10-27-2024 Urinalysis complete W Reflex Culture panel - Urine Lizeth Comer DO Work Phone: Start: 10-27-2024 Urnls dip stick/tabl et reagent auto microscopy Lizeth Comer DO Work Phone: Start: 10-27-2024 Ct abdomen & pelvis w/contrast material Lizeth Comer DO Work Phone: Start: 10-27-2024 PST TOP Lizeth Comer DO Work Phone: Start: 10-27-2024 Comprehensive metabo lic panel Lizeth Comer DO Work Phone: Start: 09-23-2024 Lipid 1996 panel - S hanh or Plasma Claudine Majano MD Work Phone: Start: 07-18-2024 Comprehensive metabo lic panel Claudine Majano MD Work Phone: Start: 07-18-2024 Lipid panel Claudine Majano MD Work Phone: Start: 07-18-2024 Lipid 1996 panel - S hanh or Plasma Claudine Majano MD Work Phone: Start: 06-06-2024 Ecg routine ecg w/le ast 12 lds w/i&r Jake Melanie DO Work Phone: Start: 12-09-2023 Lipid 1996 panel - S hanh or Plasma Claudine Majano MD Work Phone: Start: 12-09-2023 Microalbumin [Mass/v olume] in Urine by Test strip Claudine Majano MD Work Phone: Start: 07-09-2023 Glucose measurement [facility] Work Phone: Start: 07-09-2023 Glucose measurement [facility] Work Phone: Start: 07-09-2023 Glucose measurement [facility] Work Phone: Start: 07-08-2023 Drug screen quantita tive lamotrigine Rocael Mcleod MD Work Phone: Start: 07-08-2023 Basic metabolic pane l calcium total Marck Stevens CNP Work Phone: Start: 07-07-2023 Ecg routine ecg w/le ast 12 lds w/i&r Claudine Majano MD Work Phone: Start: 10-24-2022 Lipid 1996 panel - S hanh or Plasma Claudine Majano MD Work Phone: Start: 10-24-2022 Microalbumin [Mass/v olume] in Urine by Test strip Lesley Bailey RN Start: 07-10-2022 Cysto,Biopsy,Fulgura tion,Isaiah dder Tumor (Not Applicable) Start: 04-05-2022 Basic metabolic pane l calcium total Tamra Dewey MD Work Phone: Start: 04-04-2022 Assay of troponin quantitative Tamra Dewey MD Work Phone: Start: 04-04-2022 Culture bacterial quanttative colony count urine Tamra Dewey MD Work Phone: Start: 04-04-2022 Assay of troponin quantitative Tamra Dewey MD Work Phone: Start: 12-19-2021 Lipid 1996 panel - S hanh or Plasma Caitie Alvarez LPN Start: 12-19-2021 Microalbumin [Mass/v olume] in Urine by Test strip Caitie Alvarez LPN Start: 10-16-2021 Urnls dip stick/tabl et rgnt non-auto w/o micrscp Gabi Xie MD Work Phone: Start: 05-30-2021 Urnls dip stick/tabl et rgnt non-auto w/o micrscp Gisell Shabazz [place] [employer] Work Phone: Start: 05-14-2021 Ophthalmic examinati on and evaluation Brayan Mena MD Work Phone: Start: 03-15-2021 Lipid 1996 panel - S hanh or Plasma [place] [employer] Work Phone: Start: 01-16-2020 Lipid 1996 panel - S hanh or Plasma Tae Robertson Start: 01-12-2020 Adult depression scr eening assessment Gisellspring Start: 12-22-2018 Adult depression scr eening assessment Gisell [place] Start: 10-20-2018 Ophthalmic examinati on and evaluation Donna Schroeder MD Work Phone: Start: 09-06-2018 MONITORED CARDIAC RE HAB SESSION Christine Silver Start: 08-24-2018 12 lead ECG Joe Cody Work Phone: Start: 08-24-2018 Basic metabolic 2000 panel - Serum or Plasma Glen Fair Work Phone: Start: 08-23-2018 Echocardiography Ginnyf jannet Jackson Work Phone: Start: 08-23-2018 12 lead ECG Joe Cody Work Phone: Start: 08-23-2018 Troponin measurement Federico Rivers Work Phone: Start: 08-23-2018 End: 08-23-2018 Activated clotting time (ACT) of Blood by Coagulation assay [facility] Start: 08-23-2018 Radiologic exam ches t single view Dell Rivers Work Phone: Start: 08-23-2018 aPTT in Blood by Coa gulation assay Dell Rivers Work Phone: Start: 08-23-2018 Complete blood count with white cell differential, automated Dell Rivers Work Phone: Start: 08-23-2018 Complete blood count with white cell differential, manual Dell Rivers Work Phone: Start: 08-23-2018 Comprehensive metabo lic 2000 panel - Serum or Plasma Dell Rivers Work Phone: Start: 08-23-2018 D-dimer assay, quantitative Dell Rivers Work Phone: Start: 08-23-2018 INR in Platelet poor plasma by Coagulation assay Dell Rivers Work Phone: Start: 08-23-2018 Lipase [Enzymatic activity/volume] in Serum or Plasma Dell Rivers Work Phone: Start: 08-23-2018 Magnesium [Mass/volu me] in Serum or Plasma Dell Rivers Work Phone: Start: 08-23-2018 Natriuretic peptide. B prohormone N-Terminal [Mass/volume] in Serum or Plasma Dell Vasquezal Work Phone: Start: 08-23-2018 Troponin measurement [employer]erico [employer] Work Phone: Start: 08-23-2018 Pulse oximetry Dell [employer] Work Phone: Start: 08-23-2018 12 lead ECG Dell [employer] Work Phone: Start: 06-30-2018 Urinalysis macro (di pstick) panel - Urine Caitie Mclaughlin Work Phone: Start: 06-23-2018 Urinalysis macro (di pstick) panel - Urine Caitie Mclaughlin Work Phone: Start: 03-22-2018 Basic metabolic 2000 panel - Serum or Plasma Americo Peña Work Phone: Start: 03-22-2018 Magnesium [Mass/volu me] in Serum or Plasma Americo Fausto Navarretena Work Phone: Start: 03-22-2018 Vitamin D, 25-hydrox y measurement Americo Peña Work Phone: Start: 10-21-2017 End: 10-21-2017 Urnls dip stick/tablet rgnt non-auto w/o micrscp Americo Peña Work Phone: Start: 09-08-2017 Microalbumin [Mass/v olume] in Urine by Test strip Americo Peña Appendectomy Collin zz-TERME D-Pascual Cholecystectomy Collin zz-TE RMED-Pascual History of Diagnosti c Esophagoscopy Transoral Flexible With Biopsy Collin zh-JRBDLA-Jexj History of Spinal Arthrodesis Collin dv-XENOIV-Pkts Hysterectomy Collin zz-TERME D-Pascual Operation on fracture [facility] Work Phone: Comment on above: Linus insertion 2020; Screening colonoscopy Collin ai-UFZYGU-Zows Total knee replacement Eusebia r mj-OTVNWD-Ghzr Plan of Treatment Date Care Activity Detail Author Start: 12-14-2032 DTaP/Tdap/Td Vaccine s (3 - Td or Tdap) DTaP/Tdap/Td Vaccines (3 - Td or Tdap) [facility] Start: 12-14-2032 Tetanus vaccination Tetanus: Every 1 0yrs [facility] Start: 12-25-2030 Tetanus vaccination Tetanus: Every 1 0yrs [facility] Start: 09-23-2029 Lipid panel Lipid Panel [facility] Start: 12-08-2028 Lipid panel Lipid Panel [facility] Start: 10-27-2025 Diabetes mellitus screening Diabetes Screening [facility] Start: 09-23-2025 eGFR - Kidney Disease eGFR - Kidney Disease [facility] Start: 09-23-2025 Lipid panel Lipid Panel [facility] Start: 09-23-2025 Urine screening for protein Urine (micro)albumin/creatini ne ratio - Kidney Disease [facility] Start: 07-18-2025 eGFR - Kidney Disease eGFR - Kidney Disease [facility] Start: 07-18-2025 Lipid panel Lipid Panel [facility] Start: 07-18-2025 Medicare Wellness Visit Medicare Wel lness Visit [facility] Start: 05-12-2026 Urine screening for protein eGFR - Kidney Disease [facility] Start: 07-11-2025 Depression screening using PHQ-9 (Patient Health Questionnaire 9) score Depression Screening/Follow-Up (PHQ-2/9) [facility] Start: 07-11-2025 Fall risk assessment Falls Risk Asse ezequiel [facility] Start: 01-27-2025 End: 01-27-2025 Patient encounter procedure 01/27/2025 9:40 AM EST Office Visit [facility] [address] [place] [phone] Claudine Majano MD [address] [place] [id number] [facility] Start: 12-29-2024 End: 12-29-2024 Patient encounter procedure 12/29/2024 1:30 PM EDT Office Visit [facility] [address] [place] [phone] Clotilde Duffy, [employer] [facility] Garfield Gong [address] [address] [facility] Start: 12-27-2024 Urine screening for protein eGFR - Kidney Disease [facility] Start: 12-08-2024 Lipid panel Lipid Panel [facility] Start: 12-08-2024 Urine screening for protein [facility] Start: 11-09-2024 End: 11-09-2024 Patient encounter procedure [facility] [place] Start: 11-07-2024 Influenza vaccination Influenza Vacc ine (#1) [facility] Start: 09-23-2024 End: 09-23-2024 Patient encounter procedure 09/23/2024 11:40 AM EDT Office Visit [facility] [address] [place] [phone] Claudine Majano MD [address] [place] [id number] [facility] Start: 08-10-2024 End: 08-10-2024 Patient encounter procedure 08/10/2024 2:45 PM EDT Office Visit [facility] [place] [address] [place] [address] Jake Navarro DO [address] [place] [address] [facility] [place] Start: 07-18-2024 End: 07-18-2024 Patient encounter procedure 07/18/2024 1:00 PM EDT Office Visit [facility] [address] [place] [phone] Claudine Majano MD [address] [address] [facility] Start: 07-08-2024 Depression screening using PHQ-9 (Patient Health Questionnaire 9) score Depression Screening/Follow-Up (PHQ-2/9) [facility] Start: 06-06-2024 End: 06-06-2024 Patient encounter procedure 06/06/2024 3:40 PM EDT Office Visit [facility] [address] [place] [phone] Donna Schroeder MD [address] [place] [address] [facility] Physicians Start: 06-06-2024 End: 06-06-2024 Patient encounter procedure 06/06/2024 11:40 AM EDT Office Visit [facility] [address] [place] [address] Donna Schroeder MD [address] [place] [address] [facility] Start: 05-24-2024 End: 05-24-2024 Patient encounter procedure 05/24/2024 10:40 AM EDT Office Visit [facility] Primary Care Physicians [address] [place] [address] Claudine Majano MD [address] [address] [facility] Start: 05-12-2024 End: 05-12-2024 Patient encounter procedure 05/12/2024 1:45 PM EST Office Visit [facility] Physician [facility] Neuro Pain [place] [address] [place] [address] Clotilde Duffy, CONTINUOUS IMPROVEMENT BLACK BELT [address] [address] [facility] Physician [facility] [place] Start: 05-10-2024 Fall risk assessment Falls Risk Asse ssment [facility] Start: 05-10-2024 History and physical examination, annual for health maintenance Wellness Visit [facility] Start: 05-10-2024 Medicare Wellness Visit Medicare [facility] lness Visit [facility] Start: 04-13-2024 End: 04-13-2024 Patient encounter procedure 04/13/2024 1:00 PM EST Office Visit [facility] Physician [facility] Neuro [facility] [place] [address] [place] [address] Jake Navarro DO [address] [place] [address] [facility] Physician [facility] [place] Start: 03-29-2024 End: 03-29-2024 Patient encounter procedure 03/29/2024 2:40 PM EST Office Visit [facility] [address] [place] [address] Claudine Majano MD [facility] [address] [address] [facility] Start: 03-15-2024 End: 03-15-2024 Patient encounter procedure 03/15/2024 9:20 AM EST Office Visit [facility] [address], 3rd [place] [address] Donna Schroeder MD [address] [place] [address] [facility] Start: 01-21-2024 End: 01-21-2024 Admission to same day surgery center 01/21/2024 10:13 AM EST - 01/21/2024 10:31 AM [facility] Surgery [facility] [address] [place] [address] Jake Navarro DO [address] [place] [address] Lumbar medial branch nerve radiofrequency ablation, lumbar 2-3-4 [facility] Comment on above: Lumbar medial branch nerve radiofrequency ablation, lumbar 2-3-4 Start: 01-21-2024 End: 01-21-2024 Dstr nrolytc agnt parverteb fct sngl lmbr/sacral RADIOFREQUENCY ABLATION LUMBAR LEVEL 1 Lumbar spondylosis 01/21/2024 10:13 AM [facility] Start: 01-21-2024 Subsequent hospital visit by physician [facility] Start: 01-01-2024 End: 01-01-2024 Patient encounter procedure 01/01/2024 10:30 AM EDT Office Visit [facility] Neuro [facility] [place] [address] [place] [address] Jake Navarro DO [address] [place] [address] [facility] [place] Start: 12-27-2023 Depression Remission Assessment (PHQ9) Depression Remission Assessment (PHQ9) [facility] Start: 12-22-2023 Depression Remission Assessment (PHQ9) Depression Remission Assessment (PHQ9) [facility] Start: 12-01-2023 End: 12-01-2023 Telemedicine consultation with patient 12/01/2023 9:40 AM EDT Telemedicine [facility] [address] [place] [address] Claudine Majano MD [address] [address] [facility] Start: 11-08-2023 COVID-19 Vaccine ( season) COVID-19 Vaccine () [facility] Start: 11-08-2023 COVID-19 Vaccine () COVID-19 Vaccine ( season) [facility] Start: 11-08-2023 COVID-19 Vaccine () COVID-19 Vaccine () [facility] Start: 11-08-2023 Influenza vaccination [facility] Start: 11-04-2023 End: 11-04-2023 Patient encounter procedure 11/04/2023 3:00 PM EDT Office Visit [facility] Neurological Physicians [address] [place] [address] Medical Office Building, 2nd [place] [address] Rocael Mcleod MD [address] [place] [address] [facility] Start: 10-25-2023 Diabetes mellitus screening Diabetes Screening [facility] Start: 10-25-2023 Lipid panel Lipid Panel [facility] Start: 10-25-2023 Urine screening for protein Urine Microalbumin [facility] Start: 09-28-2023 End: 09-28-2023 Patient encounter procedure 09/28/2023 10:15 AM EDT Office Visit [facility] [place] [address] [place] [address] Jake Navarro DO [address] [place] [address] [facility] [place] Start: 08-18-2023 End: 08-18-2023 Patient encounter procedure 08/18/2023 1:00 PM EDT Appointment [facility] [address] [place] [address] Claudine Majano MD [address] [place] [address] [facility] Start: 08-06-2023 End: 08-06-2023 Patient encounter procedure 08/06/2023 3:40 PM EDT Office Visit [facility] [address] [place] [address] Claudine Majano MD [address] [place], [place] [id number] [facility] Start: 07-21-2023 End: 07-21-2023 Patient encounter procedure 07/21/2023 3:40 PM EDT Office Visit [facility] [address] [place] [address] Claudine Majano MD [address] [place] [address] [facility] Start: 07-07-2023 End: 07-07-2023 Patient encounter procedure 07/07/2023 1:00 PM EDT Office Visit [facility] [address] [place] [address] Claudine Majano MD [address] [place] [address] [facility] Start: 07-02-2023 End: 07-02-2023 Admission to same day surgery center [facility] Comment on above: Lumbar medial branch nerve blocks, bilateral lumbar 2-3-4 Start: 07-02-2023 Subsequent hospital visit by physician [facility] Start: 07-02-2023 End: 07-02-2023 Njx dx/ther agt pvrt facet jt lmbr/sac 1 level [facility] Start: 06-26-2023 End: 06-26-2023 Patient encounter procedure 06/26/2023 10:00 AM EDT Office Visit [facility] [place] [address] [place] [address] Jake Navarro DO [address] [place] [address] [facility] [place] Start: 06-25-2023 End: 06-25-2023 Patient encounter procedure 06/25/2023 9:00 AM EDT Appointment [facility] [address] [place] [address] Claudine Majano MD [address] [address] [facility] Start: 06-18-2023 End: 06-18-2023 Admission to same day surgery center 06/18/2023 10:20 AM EDT - 06/18/2023 10:35 AM EDT Surgery [facility] [address] [place] [address] Jake Navarro DO [address] [place] [address] Lumbar medial branch nerve blocks, bilateral lumbar 2-3-4 [facility] Comment on above: Lumbar medial branch nerve blocks, bilateral lumbar 2-3-4 Start: 06-18-2023 End: 06-18-2023 Njx dx/ther agt pvrt facet jt lmbr/sac 1 level INJECTION LUMBAR MEDIAL BRANCH BLOCK LEVEL 1 Lumbar spondylosis 06/18/2023 10:20 AM EDT [facility] Start: 06-18-2023 Subsequent hospital visit by physician 06/18/2023 10:20 AM EDT Hospital Encounter [facility] [address] [place] [address] Jake Navarro DO [address] [place] [address] [facility] Start: 05-20-2023 End: 05-20-2023 Patient encounter procedure 05/20/2023 11:30 AM EDT Office Visit [facility] Neurological Physicians [address] [facility] Medical Office Building, 2nd [place] [address] Rocael Mcleod MD [address] [address] [facility] Start: 05-13-2023 End: 05-13-2023 Patient encounter procedure 05/13/2023 1:15 PM EST Appointment [facility] [address] [place] [address] Jake Navarro DO [address] [place] [address] [facility] Start: 05-12-2023 End: 05-12-2023 Patient encounter procedure [facility] Start: 05-11-2023 End: 05-11-2023 Patient encounter procedure 05/11/2023 8:00 AM EST Office Visit [facility] [address] [place] [address] Claudine Majano MD [address] [address] [facility] Start: 04-29-2023 End: 04-22-2024 MR Lumbar spine WO contrast MR Lumbar Spine Without Contrast Imaging Routine DDD (degenerative disc disease), lumbar Expected: 04/29/2023 (Approximate), Expires: 04/22/2024 [facility] Work Phone: Comment on above: Expected: 04/29/2023 (Approximate), Expires: 04/22/2024 Start: 04-26-2023 Hemoglobin A1c measurement A1C [facility] Start: 04-22-2023 End: 04-22-2023 Patient encounter procedure 04/22/2023 10:00 AM EST Office Visit [facility] Neuro [facility] [place] [address] [place] [address] Jake Navarro DO [address] [place] [address] [facility] [place] Start: 03-27-2023 End: 03-27-2023 Telemedicine consultation with patient 03/27/2023 1:00 PM EST Telemedicine Telephone [facility] [address] [place] [address] Claudine Majano MD [address] [address] [facility] Start: 03-10-2023 End: 03-05-2024 Potassium [Moles/volume] in Serum or Plasma Potassium Lab Routine Hypokalemia Expected: 03/10/2023, Expires: 03/05/2024 [facility] Work Phone: Comment on above: Expected: 03/10/2023 , Expires: 03/05/2024 Start: 03-09-2023 TETANUS EVERY 10 YR TETANUS EVERY 10 YR [facility] Work Phone: Start: 03-09-2023 Tetanus vaccination [facility] Start: 02-11-2023 Fall risk assessment Falls Risk Asse ssment [facility] Start: 02-11-2023 History and physical examination, annual for health maintenance Wellness Visit [facility] Start: 01-15-2023 FUV, Provider: Rick Zavala, Status: Pen, Time: 1:00 PM FUV, Provider: Rick Zavala, Status: Riley, Time: 1:00 PM [facility] Work Phone: Start: 12-19-2022 Lipid panel Lipid Panel [facility] Start: 12-19-2022 Urine screening for protein Urine Microalbumin [facility] Start: 12-12-2022 Fall risk assessment Falls Risk Asse ssment [facility] Start: 11-07-2022 COVID-19 Vaccine () COVID-19 Vaccine () [facility] Start: 11-07-2022 Influenza vaccination [facility] Start: 10-24-2022 End: 10-24-2022 Patient encounter procedure 10/24/2022 1:00 PM EDT Office Visit [facility] [address] [place] [address] Claudine Majano MD [address] [address] [facility] Start: 10-16-2022 Fall risk assessment Falls Risk Asse ssment [facility] Start: 09-22-2022 End: 09-22-2022 Patient encounter procedure 09/22/2022 3:00 PM EDT Appointment [facility] [address] [place] [address] Claudine Majano MD [address] [address] [facility] Start: 09-16-2022 End: 09-16-2022 Patient encounter procedure [facility] Start: 09-05-2022 Influenza vaccination Sequenti al Influenza Vaccine (#1) [facility] Comment on above: Postponed from 11/07 (Patient Refused) Start: 08-12-2022 End: 08-12-2022 Patient encounter procedure 08/12/2022 Office Visit Primary Care Claudine Majano MD [address] [id number] [facility] Start: 07-25-2022 End: 07-25-2022 Patient encounter procedure [facility] Start: 07-10-2022 Patient discharge [facility] Start: 07-08-2022 End: 07-08-2022 Patient encounter procedure [facility] Start: 06-19-2022 Hemoglobin A1c measurement A1C [facility] Start: 06-13-2022 End: 06-13-2022 Patient encounter procedure 06/13/2022 Office Visit Primary Care Claudine Majano MD [address] [address] [facility] Start: 05-20-2022 End: 05-20-2022 Patient encounter procedure 05/20/2022 Office Visit Cardiology Donna Schroeder MD [address] [place] [address] [facility] Start: 05-14-2022 Glaucoma screening [facility] Start: 05-14-2022 Ophthalmic examinati on and evaluation Ophthalmology Exam [facility] Start: 03-15-2022 Administration of herpes zoster vaccine Zoster Vaccines (1 of 2) [facility] Comment on above: Postponed from 05/15 (Patient Refused) Postponed from 05/15 (Patient Refused) Start: 03-15-2022 Lipid panel Lipid Panel [facility] Start: 03-15-2022 Pneumococcal Vaccine : Age 65+ (1 - PCV) Pneumococcal Vaccine: Age 65+ (1 - PCV) [facility] Comment on above: Postponed from 05/15 (Patient Refused) Start: 03-15-2022 Pneumococcal Vaccine : Age 65+ (1 of 4 - PCV13) Pneumococcal Vaccine: Age 65+ (1 of 4 - PCV13) [facility] Comment on above: Postponed from 05/15 (Patient Refused) Start: 02-11-2022 End: 02-11-2022 Patient encounter procedure 02/11/2022 Office Visit Primary Care Claudine Majano MD [address] [address] [facility] Start: 01-08-2022 End: 01-08-2022 Patient encounter procedure 01/08/2022 Office Visit Neurology Brayan Mena MD [address] [address] [facility] Start: 12-19-2021 End: 12-19-2021 Patient encounter procedure 12/19/2021 Office Visit Primary Care Claudine Majano MD [address] [address] [facility] Start: 12-16-2021 End: 12-16-2021 Patient encounter procedure 12/16/2021 Office Visit Sports Medicine Carolina Clark CNP [address] [place] [address] [facility] Start: 12-04-2021 End: 12-04-2021 ambulatory 12/04/2021 Treatment Rehabilitation Carolina Clark CNP [address] [facility] [place] [address] Miguel Zavala [facility] Start: 12-02-2021 End: 12-02-2021 ambulatory 12/02/2021 Treatment Rehabilitation Carolina Clark CNP [address] [facility] [place] [address] Miguel Zavala [facility] Start: 11-27-2021 End: 11-27-2021 ambulatory 11/27/2021 Treatment Rehabilitation Carolina Clark CNP [address] [place] [place] [address] Audrey Hinojosa [facility] Start: 11-25-2021 End: 11-25-2021 ambulatory 11/25/2021 Treatment Rehabilitation Carolina Clark CNP [address] [place] [address] Miguel Zavala ACUTE CARE NURSE [facility] Start: 11-23-2021 COVID-19 Vaccine (4 - Booster for Pfizer series) COVID-19 Vaccine (4 - Booster for Pfizer series) [facility] Start: 11-20-2021 End: 11-20-2021 ambulatory 11/20/2021 Treatment Rehabilitation Carolina Clark CNP [address] [place] [address] Miguel Zavala ACUTE CARE NURSE [facility] Start: 11-18-2021 End: 11-18-2021 ambulatory 11/18/2021 Treatment Rehabilitation Carolina Clark CNP [address] [place] [address] Columba Edwards [facility] Start: 11-14-2021 End: 11-14-2021 ambulatory 11/14/2021 Evaluation Rehabilitation Carolina Clark CNP [address] [place] [address] Eduardo Zavala PT [facility] Start: 11-12-2021 End: 11-12-2021 Patient encounter procedure 11/12/2021 Office Visit Cardiology Donna Schroeder MD [address] [place] [address] [facility] Start: 11-07-2021 Influenza vaccination [facility] Start: 11-05-2021 End: 11-05-2021 Patient encounter procedure 11/05/2021 Office Visit Sports Medicine Gabi Xie MD [address] [address] Carolina Clark CNP [address] [place] [address] [facility] Start: 10-22-2021 End: 10-22-2021 ambulatory 10/22/2021 Evaluation Rehabilitation Gabi Xie MD [address] [address] Last Thompson, PT [facility] Start: 10-18-2021 End: 10-17-2022 Basic metabolic 2000 panel - Serum or Plasma Basic Metabolic Panel Lab Routine Trigeminal neuralgia Expected: 10/18/2021, Expires: 10/17/2022 [facility] Work Phone: Comment on above: Expected: 10/18/2021 , Expires: 10/17/2022 Start: 10-17-2021 End: 10-04-2022 Basic metabolic 2000 panel - Serum or Plasma Basic Metabolic Panel Lab Routine Trigeminal neuralgia Expected: 10/17/2021, Expires: 10/04/2022 [facility] Work Phone: Comment on above: Expected: 10/17/2021 , Expires: 10/04/2022 Start: 10-15-2021 End: 10-15-2021 Patient encounter procedure 10/15/2021 Office Visit Primary Care Claudine Majano MD [address] [address] [facility] Start: 10-03-2021 End: 09-20-2022 Basic metabolic 2000 panel - Serum or Plasma Basic Metabolic Panel Lab Routine Trigeminal neuralgia Expected: 10/03/2021, Expires: 09/20/2022 [facility] Work Phone: Comment on above: Expected: 10/03/2021 , Expires: 09/20/2022 Start: 09-17-2021 COVID-19 Vaccine (3 - Pfizer series) COVID-19 Vaccine (3 - Pfizer series) [facility] Start: 09-17-2021 COVID-19 Vaccine (4 - Booster for Pfizer series) COVID-19 Vaccine (4 - Booster for Pfizer series) [facility] Start: 09-17-2021 COVID-19 Vaccine (4 - Pfizer series) COVID-19 Vaccine (4 - Pfizer series) [facility] Start: 09-12-2021 Hemoglobin A1c measurement A1C [facility] Start: 09-06-2021 End: 09-06-2022 Basic metabolic 2000 panel - Serum or Plasma Basic Metabolic Panel Lab Routine Trigeminal neuralgia Expected: 09/06/2021, Expires: 09/06/2022 [facility] Work Phone: Comment on above: Expected: 09/06/2021 , Expires: 09/06/2022 Start: 09-05-2021 Influenza vaccination Sequenti al Influenza Vaccine (#1) [facility] Comment on above: Postponed from 11/07 (Patient Refused) Start: 08-06-2021 End: 07-24-2022 Basic metabolic 2000 panel - Serum or Plasma Basic Metabolic Panel Lab Routine Trigeminal neuralgia Expected: 08/06/2021, Expires: 07/24/2022 [facility] Work Phone: Comment on above: Expected: 08/06/2021 , Expires: 07/24/2022 Start: 08-01-2021 End: 08-01-2021 Patient encounter procedure 08/01/2021 Office Visit Primary Care Claudine Majano MD [address] [place] [address] [facility] Start: 07-26-2021 End: 07-12-2022 carBAMazepine [Mass/volume] in Serum or Plasma Carbamazepine Level, Total Lab Routine Trigeminal neuralgia Expected: 07/26/2021, Expires: 07/12/2022 [facility] Work Phone: Comment on above: Expected: 07/26/2021 , Expires: 07/12/2022 Start: 07-26-2021 End: 07-13-2022 Complete blood count with white cell differential, manual CBC and Differential Lab Routine Trigeminal neuralgia Expected: 07/26/2021, Expires: 07/13/2022 [facility] Comment on above: Expected: 07/26/2021 , Expires: 07/13/2022 Start: 07-26-2021 End: 07-13-2022 Comprehensive metabolic 2000 panel - Serum or Plasma Comprehensive Metabolic Panel Lab Routine Trigeminal neuralgia Expected: 07/26/2021, Expires: 07/13/2022 [facility] Comment on above: Expected: 07/26/2021 , Expires: 07/13/2022 Start: 07-08-2021 End: 07-08-2021 Patient encounter procedure 07/08/2021 Office Visit Primary Care Gisell Desai CONTINUOUS IMPROVEMENT BLACK BELT [address] [address] [facility] Start: 05-22-2021 COVID-19 Vaccine (3 - Booster for Pfizer series) COVID-19 Vaccine (3 - Booster for Pfizer series) [facility] Start: 05-22-2021 COVID-19 Vaccine (3 - Pfizer booster) COVID-19 Vaccine (3 - Pfizer booster) [facility] Start: 04-24-2021 COVID-19 Vaccine (3 - Booster for Pfizer series) COVID-19 Vaccine (3 - Booster for Pfizer series) [facility] Start: 02-12-2021 End: 02-12-2021 Patient encounter procedure [facility] Start: 01-15-2021 Fall risk assessment Falls Risk Asse ssment [facility] Start: 01-15-2021 Fasting lipid profile Lipid Panel [facility] Start: 01-15-2021 Lipid panel Lipid Panel [facility] Start: 01-11-2021 Adolescent depressio n screening assessment Depression Screening (PHQ9) [facility] Start: 12-28-2020 End: 12-28-2020 Patient encounter procedure 12/28/2020 Office Visit Primary Care Gisell Desai CNP [address] [address] [phone] [facility] Start: 11-07-2020 Influenza vaccination [facility] Start: 10-25-2020 End: 10-25-2020 Patient encounter procedure 10/25/2020 Office Visit Primary Care Gisell Desai CNP [address] [address] [phone] [facility] Start: 09-27-2020 End: 09-27-2020 Patient encounter procedure 09/27/2020 Office Visit Primary Care Gisell Desai CONTINUOUS IMPROVEMENT BLACK BELT [address] [address] [phone] [facility] Start: 09-05-2020 Influenza vaccinatio n given Sequential Influenza Vaccine (#1) [facility] Comment on above: Postponed from 11/07 (Patient Refused) Start: 08-14-2020 End: 08-14-2020 Telemedicine consultation with patient 08/14/2020 Telemedicine Cardiology Tae Robertson MD [address] [place] [address] [phone] [facility] Start: 07-19-2020 End: 07-19-2020 Office Visit [facility] Start: 07-15-2020 HbA1c (Bld) [Mass fraction] A1C [facility] Start: 07-15-2020 Hemoglobin A1c measurement A1C [facility] Start: 07-13-2020 End: 07-13-2020 Telemedicine 07/13/2020 Telemedicine Cardiology Tae Robertson MD [address] [place] [address] [phone] [facility] Start: 04-24-2020 End: 04-24-2020 Telemedicine 04/24/2020 Telemedicine Primary Care Gisell Desai CONTINUOUS IMPROVEMENT BLACK BELT [address] [place] [address] [phone] [facility] Start: 04-19-2020 End: 04-19-2020 Office Visit 04/19/2020 Office Visit Primary Care Gisell Desai CNP [address] [place] [address] [phone] [facility] Start: 04-17-2020 End: 04-17-2020 Office Visit 04/17/2020 Office Visit Primary Care GiselleGisell, CONTINUOUS IMPROVEMENT BLACK BELT [address] [place] [address] [phone] [facility] Start: 04-10-2020 End: 04-10-2020 Telemedicine 04/10/2020 Telemedicine Primary Care [place] Gisell CastilloEbony, CONTINUOUS IMPROVEMENT BLACK BELT [address] [place] [address] [phone] [facility] Start: 03-27-2020 End: 03-27-2020 Telemedicine 03/27/2020 Telemedicine Primary Care [place] Gisell M., CONTINUOUS IMPROVEMENT BLACK BELT [address] [place] [address] [phone] [facility] Start: 01-17-2020 End: 01-17-2020 Office Visit 01/17/2020 Office Visit Cardiology Tae Robertson MD [address] [place] [address] [phone] [facility] Start: 12-23-2019 Depression screening using PHQ-9 (Patient Health Questionnaire 9) score DEPRESSION SCREENING (PHQ9) [facility] Start: 10-21-2019 Ophthalmic examinati on and evaluation Ophthalmology Exam [facility] Start: 07-28-2019 HbA1c (Bld) [Mass fraction] A1C [facility] Start: 06-24-2019 Fall risk assessment Falls Risk Asse ssment [facility] Start: 06-16-2019 End: 06-16-2019 Telemedicine 06/16/2019 Telemedicine Neurology Brayan Mena MD [address] [address] [phone] [facility] Start: 02-04-2019 End: 02-04-2019 Office Visit 02/04/2019 Office Visit Cardiology Tae Robertson MD [address] [facility] [place] [address] [phone] [facility] Start: 01-18-2019 End: 01-18-2019 Office Visit 01/18/2019 Office Visit Cardiology Tae Robertson MD [address] [place] [address] [phone] [facility] Start: 11-07-2018 Influenza vaccinatio n given SEQUENTIAL INFLUENZA VACCINE (#1) [facility] Start: 10-12-2018 End: 10-12-2018 Office Visit 10/12/2018 Office Visit Cardiology Tae Robertson MD [address] [place] [address] [phone] [facility] Start: 10-04-2018 End: 10-04-2018 Office Visit 10/04/2018 Office Visit Neurology Brayan Mena MD [address] [place] [address] [phone] [facility] Start: 09-29-2018 End: 09-29-2018 Office Visit 09/29/2018 Office Visit Primary Care Caitie Mclaughlin MD [address] [place] [address] [phone] [facility] Start: 09-13-2018 End: 09-13-2018 Office Visit 09/13/2018 Office Visit Cardiology Humera Thomson CNP [address] [place] [address] [phone] [facility] Start: 09-08-2018 Albumin DL <= 20 mg/ L mass conc (U) URINE MICROALBUMIN [facility] Start: 09-08-2018 Fall risk assessment [facility] Start: 09-08-2018 Microalbumin measurement, urine, quantitative Urine Microalbumin [facility] Start: 09-08-2018 Urine screening for protein Urine Microalbumin [facility] Start: 09-06-2018 End: 09-06-2018 Treatment 09/06/2018 Treatment Cardiac Rehabilitation Glen Fair MD [address] [place] [address] [phone] [facility] Start: 09-01-2018 End: 09-01-2018 Office Visit 09/01/2018 Office Visit Cardiology Crissy Orozco, CONTINUOUS IMPROVEMENT BLACK BELT [address] [place] [address] [phone] [facility] Start: 08-26-2018 End: 08-26-2018 Clinical Support 08/26/2018 Clinical Support Primary Care [facility] Start: 08-12-2018 End: 08-12-2018 Clinical Support 08/12/2018 Clinical Support Primary Care [facility] Start: 07-19-2018 DIABETES SCREEN DIABETES SCREEN [facility] Start: 06-30-2018 End: 06-30-2018 Office Visit 06/30/2018 Office Visit Primary Care Caitie Mclaughlin MD [address] [place] [place] [address] [phone] [facility] Start: 06-23-2018 End: 06-23-2018 Office Visit 06/23/2018 Office Visit Primary Care Americo Peña MD [address] [place] [address] [phone] [facility] Start: 04-08-2018 End: 04-08-2018 Ambulatory 04/08/2018 Clinical Support Primary Care [facility] Start: 03-26-2018 Fall risk assessment Steadi Fa ll Risk Assessment [facility] Work Phone: Start: 03-26-2018 History and physical examination, annual for health maintenance Wellness Visit [facility] Start: 03-12-2018 Fall risk assessment Steadi Fa ll Risk Assessment [facility] Work Phone: Start: 12-14-2017 End: 12-14-2017 Ambulatory 12/14/2017 Office Visit Primary Care Americo Peña MD [address] [place] [address] [phone] [facility] Start: 12-11-2017 End: 12-11-2017 Ambulatory 12/11/2017 Office Visit Primary Care Americo Peña MD [address] [place] [address] [phone] [facility] Start: 12-10-2017 Fall risk assessment Steadi Fa ll Risk Assessment [facility] Work Phone: Start: 11-07-2017 Influenza vaccination SEQUENTI AL INFLUENZA VACCINE (#1) [facility] Start: 09-08-2017 End: 09-08-2017 Ambulatory [facility] Start: 07-01-2017 Steadi Fall Risk Assessment Steadi Fall Risk Assessment [facility] Work Phone: Start: 06-09-2017 Ambulatory 06/09/2017 Off ice Visit Primary Care Americo Peña MD [address] [place] [address] [phone] [facility] Start: 03-26-2017 Ambulatory 03/26/2017 Cli nical Support Primary Care [facility] Start: 03-12-2017 Ambulatory 03/12/2017 Off ice Visit Primary Care Americo Peña MD [address] [facility] [place] [address] [phone] [facility] Start: 02-12-2017 Ambulatory 02/12/2017 Cli nical Support Primary Care [facility] Start: 12-10-2016 Ambulatory 12/10/2016 Off ice Visit Primary Care Americo Peña MD [address] [facility] [place] [address] [phone] [facility] Start: 11-07-2016 SEQUENTIAL INFLUENZA VACCINE (#1) SEQUENTIAL INFLUENZA VACCINE (#1) [facility] Work Phone: Start: 12-13-2014 Pneumococcal vaccination PNEUMOCOCCAL VACCINE AGE 65+ (2 of 2 - PPSV23) [facility] Work Phone: Start: 05-16-2011 Respiratory Syncytia l Virus Immunization: Risk, 60-74 Risk, or 75+ (1 - 1-dose 75+ series) Respiratory Syncytial Virus Immunization: Risk, 60-74 Risk, or 75+ (1 - 1-dose 75+ series) [facility] Start: 05-16-2011 RSV High Risk: (Elde rly (60+) or Population) (1 - 1-dose 75+ series) RSV High Risk: (Elderly (60+) or Population) (1 - 1-dose 75+ series) [facility] Start: 2001 ADVANCE DIRECTIVE DISCUSSION ADVANCE DIRECTIVE DISCUSSION [facility] Start: 2001 BONE DENSITY BONE DENSITY [facility] Start: 2001 PNEUMOCOCCAL VACCINE AGE 65+ (1 of 2 - PCV13) PNEUMOCOCCAL VACCINE AGE 65+ (1 of 2 - PCV13) [facility] Work Phone: Start: 2001 Pneumococcal Vaccine : 65+ Years (1 - PCV) Pneumococcal Vaccine: 65+ Years (1 - PCV) [facility] Start: 2001 PNEUMOVAX AGE 65 AND OVER WITH 5YR LOOKBACK (#1) PNEUMOVAX AGE 65 AND OVER WITH 5YR LOOKBACK (#1) [facility] Start: 2001 Screening for osteoporosis Bone Density Scan [facility] Start: 1986 Administration of herpes zoster vaccine ZOSTER VACCINES (1 of 2) [facility] Start: 1986 SHINGRIX VACCINE (1 of 2) SHINGRIX VACCINE (1 of 2) [facility] Start: 1986 ZOSTER VACCINES (1 o f 2) ZOSTER VACCINES (1 of 2) [facility] Start: 05-16-1955 Administration of herpes zoster vaccine Zoster Vaccines (1 of 2) [facility] Start: 05-16-1955 Urine microalbumin profile DTAP,TDAP,TD (1 - Tdap) [facility] Start: 1952 COVID-19 Vaccine (1 of 2) COVID-19 Vaccine (1 of 2) [facility] Start: 1952 COVID-19 Vaccine (1) COVID-19 Vaccin e (1) [facility] Start: 1948 COVID-19 Vaccine (1) COVID-19 Vaccin e (1) [facility] Start: 1946 Diabetic foot examination FOOT EXAM [facility] Start: 1946 Ophthalmic examinati on and evaluation Ophthalmology Exam [facility] Start: 1946 URINE MICROALBUMIN URINE MICROALBUMI N [facility] Work Phone: Start: 1946 Urine, microalbumin URINE MICROALBUM IN [facility] Work Phone: Start: 1942 Pneumococcal Vaccine : Age 65+ (1 - PCV) Pneumococcal Vaccine: Age 65+ (1 - PCV) [facility] Start: 1942 Pneumococcal Vaccine : Age 65+ (1 of 2 - PCV) Pneumococcal Vaccine: Age 65+ (1 of 2 - PCV) [facility] Start: 1942 Pneumococcal Vaccine : Age 65+ (1 of 4 - PCV13) Pneumococcal Vaccine: Age 65+ (1 of 4 - PCV13) [facility] Start: 1936 DEXA SCAN DEXA SCAN [facility] Work Phone: Start: 1936 Fasting lipid profile LIPID PANEL [facility] Start: 1936 Hemoglobin A1c/Hemoglobin.total mass fraction (Bld) A1C [facility] Start: 1936 Lipid panel Lipid Panel [facility] Start: 1936 Medicare Annual Wellness Visit Medicare Annual Wellness Visit (AWV) [facility] Start: 1936 Screening for osteoporosis Bone Density Scan [facility] End: 05-12-2025 12 lead ECG ECG 12 Lead ECG Routine At risk for prolonged QT interval syndrome 1 Occurrences starting 05/12/2024 until 05/12/2025 [facility] Work Phone: Comment on above: 1 Occurrences starti ng 05/12/2024 until 05/12/2025 End: 09-23-2025 B12/Folate B12/Folate Lab Routine Admission for therapeutic drug monitoring 1 Occurrences starting 09/23/2024 until 09/23/2025 [facility] Comment on above: 1 Occurrences starti ng 09/23/2024 until 09/23/2025 End: 09-08-2018 Bacteria identified Aer cx Nom (Unsp spec) Urine Aerobic Culture Routine Frequent UTI 1 Occurrences starting 09/08/2017 until 09/08/2018 [facility] End: 10-12-2018 Bacteria identified Aer cx Nom (Unsp spec) Urine Aerobic Culture Routine Acute cystitis with hematuria 1 Occurrences starting 10/12/2017 until 10/12/2018 [facility] End: 10-21-2018 Bacteria identified Aer cx Nom (Unsp spec) Urine Aerobic Culture Routine Abdominal pain, unspecified abdominal location 1 Occurrences starting 10/21/2017 until 10/21/2018 [facility] Comment on above: 1 Occurrences starti ng 10/21/2017 until 10/21/2018 Bacteria identified Aer cx Nom (Unsp spec) [facility] End: 05-30-2022 Bacteria identified in Unspecified specimen by Aerobe culture Urine Aerobic Culture Microbiology Routine Urinary frequency 1 Occurrences starting 05/30/2021 until 05/30/2022 [facility] Work Phone: Comment on above: 1 Occurrences starti ng 05/30/2021 until 05/30/2022 Bacteria identified in Unspecified specimen by Aerobe culture Urine Aerobic Culture Microbiology Routine Urinary frequency 05/30/2021 3:20 PM EDT [facility] Bacteria identified in Unspecified specimen by Aerobe culture Urine Aerobic Culture Microbiology Routine 04/04/2022 11:41 AM EST [facility] Work Phone: End: 04-16-2023 Bacteria identified in Unspecified specimen by Aerobe culture Urine Aerobic Culture Microbiology Routine Frequent UTI 1 Occurrences starting 04/16/2022 until 04/16/2023 [facility] Work Phone: Comment on above: 1 Occurrences starti ng 04/16/2022 until 04/16/2023 Bacteria identified in Unspecified specimen by Aerobe culture Urine Aerobic Culture Microbiology Routine Frequent UTI 04/16/2022 10:14 AM EST [facility] End: 12-08-2024 Bacteria identified in Unspecified specimen by Aerobe culture Urine Aerobic Culture Microbiology Routine Abnormal urine findings 1 Occurrences starting 12/09/2023 until 12/08/2024 [facility] Work Phone: Comment on above: 1 Occurrences starti ng 12/09/2023 until 12/08/2024 End: 07-09-2023 Basic metabolic 2000 panel - Serum or Plasma Basic Metabolic Panel Lab Routine Trigeminal neuralgia 1 Occurrences starting 07/08/2022 until 07/09/2023 [facility] Work Phone: Comment on above: 1 Occurrences starti ng 07/08/2022 until 07/09/2023 Basic metabolic 2000 panel - Serum or Plasma Basic Metabolic Panel Lab Routine Trigeminal neuralgia 07/08/2022 2:53 PM EDT [facility] End: 12-18-2023 Basic metabolic 2000 panel - Serum or Plasma Basic Metabolic Panel Lab Routine Trigeminal neuralgia 1 Occurrences starting 12/17/2022 until 12/18/2023 [facility] Work Phone: Comment on above: 1 Occurrences starti ng 12/17/2022 until 12/18/2023 Basic metabolic 2000 panel - Serum or Plasma Basic Metabolic Panel Lab Routine Trigeminal neuralgia 12/17/2022 1:32 PM EDT [facility] End: 01-02-2024 Basic metabolic 2000 panel - Serum or Plasma Basic Metabolic Panel Lab Routine Trigeminal neuralgia 1 Occurrences starting 01/01/2023 until 01/02/2024 [facility] Work Phone: Comment on above: 1 Occurrences starti ng 01/01/2023 until 01/02/2024 End: 04-11-2024 Basic metabolic 2000 panel - Serum or Plasma Basic Metabolic Panel Lab Routine Elevated serum creatinine 1 Occurrences starting 04/11/2023 until 04/11/2024 [facility] Work Phone: Comment on above: 1 Occurrences starti ng 04/11/2023 until 04/11/2024 End: 05-10-2024 Basic metabolic 2000 panel - Serum or Plasma Basic Metabolic Panel Lab Routine Chronic systolic heart failure (HCC) 1 Occurrences starting 05/11/2023 until 05/10/2024 [facility] Comment on above: 1 Occurrences starti ng 05/11/2023 until 05/10/2024 End: 07-20-2024 Basic metabolic 2000 panel - Serum or Plasma Basic Metabolic Panel Lab Routine Hypokalemia 1 Occurrences starting 07/21/2023 until 07/20/2024 [facility] Work Phone: Comment on above: 1 Occurrences starti ng 07/21/2023 until 07/20/2024 End: 07-26-2024 Basic metabolic 2000 panel - Serum or Plasma Basic Metabolic Panel Lab Routine Hypokalemia 1 Occurrences starting 07/27/2023 until 07/26/2024 [facility] Work Phone: Comment on above: 1 Occurrences starti ng 07/27/2023 until 07/26/2024 End: 06-09-2018 Basic metabolic panel [AGGREGATE] Basic Metabolic Panel Routine Essential hypertension 1 Occurrences starting 06/09/2017 until 06/09/2018 [facility] End: 12-10-2017 Basic metabolic panel [AGGREGATE] Basic Metabolic Panel Routine Essential hypertension 1 Occurrences starting 12/10/2016 until 12/10/2017 [facility] Work Phone: End: 01-08-2023 carBAMazepine [Mass/volume] in Serum or Plasma Carbamazepine Level, Total Lab Routine Trigeminal neuralgia 1 Occurrences starting 01/08/2022 until 01/08/2023 [facility] Work Phone: Comment on above: 1 Occurrences starti ng 01/08/2022 until 01/08/2023 carBAMazepine [Mass/volume] in Serum or Plasma Carbamazepine Level, Total Lab Routine Trigeminal neuralgia 01/08/2022 2:59 PM EDT [facility] End: 07-09-2023 carBAMazepine [Mass/volume] in Serum or Plasma Carbamazepine Level, Total Lab Routine Trigeminal neuralgia 1 Occurrences starting 07/08/2022 until 07/09/2023 [facility] Comment on above: 1 Occurrences starti ng 07/08/2022 until 07/09/2023 carBAMazepine [Mass/volume] in Serum or Plasma Carbamazepine Level, Total Lab Routine Trigeminal neuralgia 07/08/2022 2:53 PM EDT [facility] End: 12-18-2023 carBAMazepine [Mass/volume] in Serum or Plasma Carbamazepine Level, Total Lab Routine Trigeminal neuralgia 1 Occurrences starting 12/17/2022 until 12/18/2023 [facility] Comment on above: 1 Occurrences starti ng 12/17/2022 until 12/18/2023 carBAMazepine [Mass/volume] in Serum or Plasma Carbamazepine Level, Total Lab Routine Trigeminal neuralgia 12/17/2022 1:32 PM EDT [facility] End: 01-02-2024 carBAMazepine [Mass/volume] in Serum or Plasma Carbamazepine Level, Total Lab Routine Trigeminal neuralgia 1 Occurrences starting 01/01/2023 until 01/02/2024 [facility] Comment on above: 1 Occurrences starti ng 01/01/2023 until 01/02/2024 End: 08-23-2018 Cardiac catheterization Cardiac Catheterization Cardiac Cath Routine Once for 1 Occurrences starting 08/23/2018 until 08/23/2018 [facility] Comment on above: Once for 1 Occurrenc es starting 08/23/2018 until 08/23/2018 Cardiac catheterization Cardiac Catheterization Cardiac Cath Routine 08/23/2018 8:19 AM EDT [facility] End: 06-09-2018 CBC and Differential CBC and Differential Routine Essential hypertension 1 Occurrences starting 06/09/2017 until 06/09/2018 [facility] End: 12-10-2017 CBC and Differential CBC and Differential Routine Gastroesophageal reflux disease, esophagitis presence not specified 1 Occurrences starting 12/10/2016 until 12/10/2017 [facility] Work Phone: End: 09-19-2022 Complete blood count with white cell differential, manual CBC and Differential Lab Routine Trigeminal neuralgia 1 Occurrences starting 09/18/2021 until 09/19/2022 [facility] Work Phone: Comment on above: 1 Occurrences starti ng 09/18/2021 until 09/19/2022 Complete blood count with white cell differential, manual CBC and Differential Lab Routine Trigeminal neuralgia 09/18/2021 12:16 PM [facility] End: 09-23-2025 Complete blood count with white cell differential, manual CBC and Differential Lab Routine Essential hypertension 1 Occurrences starting 09/23/2024 until 09/23/2025 [facility] Comment on above: 1 Occurrences starti ng 09/23/2024 until 09/23/2025 End: 01-15-2021 Comprehensive metabolic 2000 panel Comprehensive Metabolic Panel Lab Routine 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, without long-term current use of insulin (HCC) Essential hypertension Mixed hyperlipidemia 1 Occurrences starting 01/16/2020 until 01/15/2021 [facility] Comment on above: 1 Occurrences starti ng 01/16/2020 until 01/15/2021 Comprehensive metabo lic 2000 panel Comprehensive Metabolic Panel Lab Routine 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, without long-term current use of insulin (HCC) Essential hypertension Mixed hyperlipidemia 01/16/2020 10:55 AM EST [facility] End: 03-27-2024 Comprehensive metabolic 2000 panel - Serum or Plasma Comprehensive Metabolic Panel Lab Routine Mild left ventricular systolic dysfunction Hypertension, unspecified type 1 Occurrences starting 03/27/2023 until 03/27/2024 [facility] Work Phone: Comment on above: 1 Occurrences starti ng 03/27/2023 until 03/27/2024 End: 09-23-2025 Comprehensive metabolic 2000 panel - Serum or Plasma Comprehensive Metabolic Panel Lab Routine Essential hypertension 1 Occurrences starting 09/23/2024 until 09/23/2025 [facility] Comment on above: 1 Occurrences starti ng 09/23/2024 until 09/23/2025 Dstr nrolytc agnt parverteb fct sngl lmbr/sacral RADIOFREQUENCY ABLATION LUMBAR LEVEL 1 Lumbar spondylosis [facility] End: 10-27-2024 ECG 12 Lead ECG 12 Lead ECG STAT Once for 1 Occurrences starting 10/27/2024 until 10/27/2024 [facility] Work Phone: Comment on above: Once for 1 Occurrenc es starting 10/27/2024 until 10/27/2024 End: 09-05-2024 Echocardiography Echocardiogram complete Echocardiography Routine Preop cardiovascular exam Acute myocardial infarction, unspecified IA type, unspecified artery (HCC) 1 Occurrences starting 07/07/2023 until 09/05/2024 [facility] Work Phone: Comment on above: 1 Occurrences starti ng 07/07/2023 until 09/05/2024 End: 02-23-2020 ESR (Bld) [Velocity] Sedimentation Rate Lab Routine Trigeminal neuralgia 1 Occurrences starting 02/22/2019 until 02/23/2020 [facility] Comment on above: 1 Occurrences starti ng 02/22/2019 until 02/23/2020 ESR (Bld) [Velocity] Sedimentati on Rate Lab Routine Trigeminal neuralgia 02/22/2019 10:10 AM EST [facility] End: 10-27-2024 Extra Tubes [facility] Work Phone: Comment on above: Once (Lab) for 1 Occ urrences starting 10/27/2024 until 10/27/2024 End: 10-27-2024 Extra Urine Mejia Tube [facility] Work Phone: Comment on above: Once for 1 Occurrenc es starting 10/27/2024 until 10/27/2024 End: 01-15-2021 HbA1c (Bld) [Mass fraction] Hemoglobin A1c Lab Routine 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, without long-term current use of insulin (HCC) 1 Occurrences starting 01/16/2020 until 01/15/2021 [facility] Comment on above: 1 Occurrences starti ng 01/16/2020 until 01/15/2021 HbA1c (Bld) [Mass fraction] Hemoglobin A1c Lab Routine 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, without long-term current use of insulin ([facility]) 01/16/2020 10:55 AM EST [facility] End: 10-25-2023 Hemoglobin A1c/Hemoglobin.total in Blood Hemoglobin A1c Lab Routine Prediabetes 1 Occurrences starting 10/24/2022 until 10/25/2023 [facility] Comment on above: 1 Occurrences starti ng 10/24/2022 until 10/25/2023 Hemoglobin A1c/Hemoglobin.total in Blood Hemoglobin A1c Lab Routine Prediabetes 10/24/2022 1:37 PM EDT [facility] End: 09-23-2025 Hemoglobin A1c/Hemoglobin.total in Blood Hemoglobin A1c Lab Routine Essential hypertension Abnormal finding of blood chemistry, unspecified 1 Occurrences starting 09/23/2024 until 09/23/2025 [facility] Comment on above: 1 Occurrences starti ng 09/23/2024 until 09/23/2025 INJECTION LUMBAR MED IAL BRANCH BLOCK LEVEL 1 INJECTION LUMBAR MEDIAL BRANCH BLOCK LEVEL 1 Lumbar spondylosis [facility] End: 01-15-2021 Lipid 1996 panel Lipid Panel Lab Routine Mixed hyperlipidemia 1 Occurrences starting 01/16/2020 until 01/15/2021 [facility] Comment on above: 1 Occurrences starti ng 01/16/2020 until 01/15/2021 Lipid 1996 panel Lipid Panel Lab Routine Mixed hyperlipidemia 01/16/2020 10:55 AM EST [facility] End: 09-23-2025 Lipid 1996 panel - Serum or Plasma Lipid Panel Lab Routine Essential hypertension Mixed hyperlipidemia 1 Occurrences starting 09/23/2024 until 09/23/2025 [facility] Comment on above: 1 Occurrences starti ng 09/23/2024 until 09/23/2025 End: 12-10-2017 Magnesium Magnesium Routine Chronic kidney disease (CKD), stage III (moderate) 1 Occurrences starting 12/10/2016 until 12/10/2017 [facility] Work Phone: End: 10-25-2023 Microalbumin measurement, urine, quantitative Microalbumin/Creatinine Ratio, UR Random Lab Routine Stage 3 chronic kidney disease, unspecified whether stage 3a or 3b CKD ([facility]) 1 Occurrences starting 10/24/2022 until 10/25/2023 [facility] Work Phone: Comment on above: 1 Occurrences starti ng 10/24/2022 until 10/25/2023 Microalbumin measurement, urine, quantitative Microalbumin/Creatinine Ratio, UR Random Lab Routine Stage 3 chronic kidney disease, unspecified whether stage 3a or 3b CKD (HCC) 10/24/2022 1:42 PM EDT [facility] End: 09-23-2025 Microalbumin measurement, urine, quantitative Microalbumin/Creatinine Ratio, UR Random Lab Routine Essential hypertension 1 Occurrences starting 09/23/2024 until 09/23/2025 [facility] Comment on above: 1 Occurrences starti ng 09/23/2024 until 09/23/2025 End: 09-08-2018 Microalbumin, Urine, Random Microalbumin, Urine, Random Routine Essential hypertension 1 Occurrences starting 09/08/2017 until 09/08/2018 [facility] End: 02-23-2020 MR angiography of head and brain without contrast MRA Brain Without Contrast Imaging Routine Trigeminal neuralgia 1 Occurrences starting 02/22/2019 until 02/23/2020 [facility] Comment on above: 1 Occurrences starti ng 02/22/2019 until 02/23/2020 End: 02-22-2020 MRI of brain and brain stem MR Brain Without Contrast Imaging Routine Trigeminal neuralgia 1 Occurrences starting 02/22/2019 until 02/22/2020 [facility] Comment on above: 1 Occurrences starti ng 02/22/2019 until 02/22/2020 End: 01-24-2021 MRI of lumbar spine without contrast MR Lumbar Spine Without Contrast Imaging Routine Chronic left-sided low back pain without sciatica 1 Occurrences starting 01/25/2020 until 01/24/2021 [facility] Comment on above: 1 Occurrences starti ng 01/25/2020 until 01/24/2021 End: 02-18-2020 MRI of lumbar spine without contrast MR Lumbar Spine Without Contrast Imaging Routine Chronic left-sided low back pain without sciatica Once for 1 Occurrences starting 02/18/2020 until 02/18/2020 [facility] Comment on above: Once for 1 Occurrenc es starting 02/18/2020 until 02/18/2020 MRI of lumbar spine without contrast MR Lumbar Spine Without Contrast Imaging Routine Chronic left-sided low back pain without sciatica 02/18/2020 8:09 AM EST [facility] Patient referral [facility] Work Phone: PST Top PST Top Lab Rout ine 10/27/2024 11:16 AM EDT [facility] Work Phone: RADIOFREQUENCY ABLAT ION LUMBAR LEVEL 1 RADIOFREQUENCY ABLATION LUMBAR LEVEL 1 Lumbar spondylosis [facility] End: 09-23-2025 Thyrotropin [Units/volume] in Serum or Plasma TSH with Reflex Free T4 Lab Routine Essential hypertension 1 Occurrences starting 09/23/2024 until 09/23/2025 [facility] Work Phone: Comment on above: 1 Occurrences starti ng 09/23/2024 until 09/23/2025 End: 01-15-2021 TSH Qn TSH with Reflex Free T4 Lab Routine Mixed hyperlipidemia 1 Occurrences starting 01/16/2020 until 01/15/2021 [facility] Comment on above: 1 Occurrences starti ng 01/16/2020 until 01/15/2021 TSH Qn TSH with Reflex Free T4 Lab Routine Mixed hyperlipidemia 01/16/2020 10:55 AM EST [facility] End: 10-27-2024 Urinalysis complete W Reflex Culture panel - Urine [facility] Service Area Work Phone: Comment on above: STAT (Lab) for 1 Occ urrences starting 10/27/2024 until 10/27/2024 End: 04-20-2024 Urinalysis with reflex to microscopy and culture Outreach Urinalysis w/ Reflex Culture Lab Routine Dysuria 1 Occurrences starting 04/20/2023 until 04/20/2024 [facility] Work Phone: Comment on above: 1 Occurrences starti ng 04/20/2023 until 04/20/2024 Urinalysis with refl ex to microscopy and culture Outreach Urinalysis w/ Reflex Culture Lab Routine Dysuria 04/20/2023 9:23 AM EST [facility] End: 09-23-2025 Urinalysis with reflex to microscopy and culture Outreach Urinalysis w/ Reflex Culture Lab Routine Dizziness Dysuria 1 Occurrences starting 09/23/2024 until 09/23/2025 [facility] Comment on above: 1 Occurrences starti ng 09/23/2024 until 09/23/2025 End: 07-10-2024 US Doppler ankle/brachial index US Doppler ankle/brachial index Vascular Ultrasound Routine Leg swelling Encounter for follow-up examination after completed treatment for conditions other than malignant neoplasm 1 Occurrences starting 05/11/2023 until 07/10/2024 [facility] Work Phone: Comment on above: 1 Occurrences starti ng 05/11/2023 until 07/10/2024 End: 04-05-2025 US Thyroid gland US Thyroid Only Imaging Routine Left thyroid nodule 1 Occurrences starting 04/05/2024 until 04/05/2025 [facility] Work Phone: Comment on above: 1 Occurrences starti ng 04/05/2024 until 04/05/2025 End: 04-26-2024 US Thyroid gland [facility] Service Area Work Phone: Comment on above: Once for 1 Occurrenc es starting 04/26/2024 until 04/26/2024 End: 12-10-2017 Vitamin D 1,25 Dihydroxy Vitamin D 1,25 Dihydroxy Routine Vitamin D deficiency 1 Occurrences starting 12/10/2016 until 12/10/2017 [facility] Work Phone: End: 01-15-2021 Vitamin D, 25-hydroxy measurement Vitamin D, Total, 25-OH Lab Routine Vitamin D deficiency 1 Occurrences starting 01/16/2020 until 01/15/2021 [facility] Comment on above: 1 Occurrences starti ng 01/16/2020 until 01/15/2021 Vitamin D, 25-hydrox y measurement Vitamin D, Total, 25-OH Lab Routine Vitamin D deficiency 01/16/2020 10:55 AM EST [facility] End: 10-16-2022 XR Hip Left 2-3 Views (Routine) XR Hip Left 2-3 Views (Routine) Imaging Routine Left hip pain 1 Occurrences starting 10/16/2021 until 10/16/2022 [facility] Work Phone: Comment on above: 1 Occurrences starti ng 10/16/2021 until 10/16/2022 XR Hip Left 2-3 View s (Routine) XR Hip Left 2-3 Views (Routine) Imaging Routine Left hip pain 10/16/2021 11:58 AM EDT [facility] NEGATED: Highlighted row has been ruled out! Planned Goals not documented [facility] Work Phone: Immunizations Immunization Date Immunization Notes Care Provider [facility] 12-24-2023 influenza, high dose seasonal, preservative-free Jake Navarro DO Work Phone: [facility] 12-24-2023 Pneumococcal Conjuga te 20-Valent (Prevnar 20) Jake Navarro DO Work Phone: [facility] 12-24-2023 influenza virus vaccine, unspecified formulation Tana Hampton LPN [facility] 12-14-2022 tetanus toxoid, redu татьяна diphtheria toxoid, and acellular pertussis vaccine, adsorbed Brayan Mena MD Work Phone: [facility] 07-23-2021 Pfizer Mejia Cap SARS-CoV-2 Rick Thomae DO Work Phone: [facility] Work Phone: 12-25-2020 tetanus toxoid, redu татьяна diphtheria toxoid, and acellular pertussis vaccine, adsorbed Rick Thomae DO Work Phone: [facility] 12-22-2018 influenza virus vaccine, unspecified formulation Clotilde Clive CONTINUOUS IMPROVEMENT BLACK BELT Work Phone: [facility] 01-04-2017 influenza, high dose seasonal, preservative-free; Translations: [INFLUENZA IIV3 HIGH DOSE 65 AND OLDER] Americo Peña [facility] Work Phone: 01-04-2017 influenza virus vaccine, unspecified formulation Rick Chinae DO Work Phone: [facility] Work Phone: 12-10-2016 Influenza, High Dose Seasonal Americo Peña [facility] 12-10-2016 influenza, high dose seasonal, preservative-free Caitie Mclaughlin [facility] 12-10-2016 influenza, seasonal, injectable Americo Peña [facility] 11-14-2015 Influenza, High Dose Seasonal Americo Peña [facility] 11-14-2015 influenza, high dose seasonal, preservative-free Caitie Mclaughlin [facility] 11-20-2014 Influenza, High Dose Seasonal Americo Peña [facility] 11-20-2014 influenza, high dose seasonal, preservative-free Caitie Mclaughlin [facility] Payers Date Payer Category Payer Self-pay 2023 Unknown [id number] [id number] 3 2022 [employer] ( and others) FOR LIFE [id number] 2022-Present [address] [place] [address] [id number] .[id number] 2022 For Life (TFL) 1.2.8 [id number] .[id number] 2022 [employer] ( and others) [id number] 2014 For Life--Medicare Supplement FOR LIFE 1.2.840.118299.1.13.385.2 .7.9.994481.615.315 2014 Unknown [id number] 2.16.840.1.026440.3.249.1 3 2014 Unknown 2014 Unknown [id number] 2007 Unknown [id number] 1.2.840.279922.1.13.385.2 .7.3.245296.315 2001 Medicare MEDICARE MEDICAR E PART A & B xxxxxxxxxxx 2001-Present [place] xxxxxxxxxxx 1.2.840.275714.1.13.385.2 .7.3.351774.315 2001 Medicare [id number] 1.2.840.876640.1.13.385.2 .7.3.485089.315 2001 Medicare [id number] 1.2.840.248536.1.13.159.2 .7.3.104198.315 2001 Medicare 1.2.840.801276. 1.13.385.2 .7.3.010323.315 2001 Medicare [id number] 1936 Unknown [id number] 2.840.1.466813.3.579.2 .1244 1936 Unknown [id number] 2.840.1.044190.3.579.2 .903 1936 Unknown [id number] 2.0.1.197714.3.579.2 .90 1936 Unknown [id number] 2.0.1.374941.3.579.2 .903 1936 Unknown [id number] 2.840.1.134732.3.579.2 .90 1936 Unknown [id number] 2.840.1.050988.3.579.2 .903 1936 Unknown [id number] 2.840.1.804580.3.579.2 .903 1936 Unknown [id number] 2.840.1.170243.3.579.2 .903 1936 Unknown [id number] 2.840.1.845995.3.579.2 .903 1936 Unknown [id number] 2.840.1.572220.3.579.2 .903 1936 Unknown [id number] 2.16840.1.163637.3.579.2 .903 1936 Unknown [id number] 2.840.1.301194.3.579.2 .903 1936 Unknown [id number] 2.16.840.1.572326.3.579.2 .903 1936 Unknown [id number] 2.16.840.1.711120.3.579.2 .1936 Unknown [id number] 2.16.840.1.736442.3.579.2 .1936 Unknown [id number] 2.16840.1.821079.3.579.2 1936 Unknown [id number] 2.16.840.1.407758.3.579.2 .1936 Unknown [id number] 2.840.1.930650.3.579.2 1936 Unknown [id number] 2.840.1.092387.3.579.2 1936 Unknown [id number] 2.840.1.959260.3.579.2 1936 Unknown [id number] 2.840.1.608614.3.579.2 1936 Unknown [id number] 2.840.1.008462.3.579.2 1936 Unknown [id number] 2.840.1.237788.3.579.2 1936 Unknown [id number] 2.16840.1.385114.3.579.2 1936 Unknown [id number] 2.16840.1.787390.3.579.2 .1936 Unknown [id number] 2.16.840.1.258479.3.579.2 1936 Unknown [id number] 2.16.840.1.016978.3.579.2 1936 Unknown [id number] 2.16840.1.373386.3.579.2 .903 1936 Unknown [id number] 2.16.840.1.139229.3.579.2 .1936 Unknown [id number] 2.16.840.1.073690.3.579.2 .903 1936 Unknown [id number] 2.16.840.1.547551.3.579.2 .1936 Unknown [id number] 2.16.840.1.653468.3.579.2 .3 1936 Unknown [id number] 2.16840.1.271170.3.579.2 .1936 Unknown [id number] 2.840.1.804942.3.579.2 .1936 Unknown [id number] 2.840.1.211728.3.579.2 1936 Unknown [id number] 2.840.1.534528.3.579.2 .1936 Unknown [id number] 2.840.1.512457.3.579.2 1936 Unknown [id number] 2.840.1.649167.3.579.2 .3 1936 Unknown [id number] 2.840.1.416208.3.579.2 .1242 1936 Unknown [id number] 2.16840.1.810905.3.579.2 .124 1936 Unknown [id number] 2.16.840.1.392204.3.579.2 .1936 Unknown [id number] 2.16.840.1.134655.3.579.2 .902 1936 Unknown [id number] 2.16840.1.997478.3.579.2 1936 Unknown [id number] 2.16.840.1.667094.3.579.2 .903 Medicare xxxxxxxxxx 2.16.840.1.357539.3.249.1 3 Medicare [id number] 2.16.840.1.354811.3.249.1 3 Unknown [id number] 2.16.840.1.952263.3.579.2 .462 Social History Date Type Detail Facility Start: 08-03-2017 End: 10-13-2023 Tobacco smoking status NHIS Former smoker [facility] Work Phone: End: 04-03-1976 History of tobacco use Current smoker [facility] Work Phone: End: 04-03-1976 History of tobacco use Cigarette Smoker [facility] Work Phone: Start: 1935 [facility] Start: 12-22-2018 End: 11-02-2024 Alcohol intake Current non-drinker of alcohol (finding) [facility] Start: 12-22-2018 End: 10-15-2021 History SDOH Social Connections Get Together 4 [facility] Start: 12-22-2018 End: 10-15-2021 History SDOH Food Worry 1 [facility] Exposure to SARS-CoV -2 (event) Unable to assess [facility] Start: 01-17-2020 End: 10-13-2023 Tobacco use and exposure Never used [facility] Start: 01-12-2020 End: 10-15-2021 History SDOH Social Connections Get Together 3 [facility] Start: 01-12-2020 End: 10-15-2021 History SDOH Financial 5 [facility] Start: 01-12-2020 End: 10-15-2021 History SDOH Transport Med 2 [facility] Start: 05-20-2021 End: 04-26-2024 Exposure to SARS-CoV-2 (event) Not sure [facility] Start: 12-22-2018 End: 11-02-2024 Former smoker Former smoker [facility] Start: 10-15-2021 History SDOH Alcohol Std Drinks 0 [facility] Start: 10-15-2021 History SDMI Social Connections Meetings 98 [facility] Start: 10-15-2021 End: 11-02-2024 Humiliation, Afraid, Rape, and Kick questionnaire [HARK] [facility] Within the last year , have you been afraid of your partner or ex-partner? No [facility] Start: 01-31-2022 How often do you att end meetings of the clubs or organizations you belong to? Patient refused [facility] Are you now , , , , never or living with a partner? [facility] How often to you hav e a drink containing alcohol? Never [facility] Do you feel stress - tense, restless, nervous, or anxious, or unable to sleep at night because your mind is troubled all the time - these days [OSQ] To some extent [facility] (I/We) worried wheeyad er (my/our) food would run out before (I/we) got money to buy more. Never true [facility] Start: 12-14-2017 Gender identity Identifies as female gender (finding) [facility] Start: 12-14-2017 Sexual orientation Heterosexual (fin ding) [facility] Start: 07-03-2022 [facility] Start: 1935 Sex Assigned At Female W [facility] Start: 03-23-2023 Tobacco smoking stat [facility] Never smoked tobacco [facility] Start: 03-23-2023 End: 10-27-2024 Alcohol intake Ex-drinker (finding) [facility] Work Phone: NEGATED: Highlighted row - - [facility] Work Phone: NEGATED: Highlighted row [facility] NEGATED: Highlighted rowStart: NINF History of tobacco use Passive smoker [facility] Medical Equipment Procedure Code Equipment Code Equipment Original Text Equipment Identifier Dates Closure 6fr Proglide - [id number] FDA Start: 08-23-2018 Stent 2.50 X 38 Synergy Mr - [id number] FDA Start: 08-23-2018 Stent 2.75 X 20 Synergy Mr - [id number], [id number] FDA Start: 08-23-2018 Troch Nail, Gam3 125d [id number] W/Ti Set Scrw Case [id number] Start: 04-04-2020 Comment on above: Description: Convert ed from [email or web address] Please see archived information for full log information. Screw, Lock 5 X 37 Ti F/Thr Case [id number] Start: 04-04-2020 Comment on above: Description: Convert ed from [facility] [[email or web address] Please see archived information for full log information. Lag Screw Gam3 Ti 10.5 X 90mm Case [id number] Start: 04-04-2020 Comment on above: Description: Convert ed from [facility] [[email or web address] Please see archived information for full log information. Goals Date Patient Goal Desired Activity /State Functional Status Date Assessment Result Facility 10-27-2024 Cobb - suicide severity rating scale screener - recent [C-SSRS] [facility] Work Phone: NEGATED: Highlighted row Functional performance Functional status health issues are not documented [facility] Work [facility]: Mental Status Date Assessment Result Facility 07-10-2022 Cognitive function Voice/Name [facility] Work Phone: NEGATED: Highlighted row Cognitive function [Interpretation] Cognitive status health issues are not documented [facility] Work Phone: Clinical Notes 04-02-2020 to 11-10-2024 Discharge InstructionsKatherine Soto MD - 11/10/2024 1:19 PM EDRosalva Calles - 11/10/2024 12:42 PM Kelsey Feldman MA - 11/10/2024 12:26 PM EDTPatient Instructions Note Date & Type Note Facility 11-10-2024 Hospital Discharge instructions Skye Diaz LPN - 11/10/2024 4:29 PM EDT The following attachments cannot be sent through Care Everywhere.Dizziness ([place]kin[place])documented in this encounter [facility] 11-10-2024 Hospital course Narrative [facility] [place] -- [facility] Cat Carroll : 1935 Admitted: 11/02/2024 Discharge Date: 11/10/24 PCP Handoff Recommended Outpatient Testing none Results Pending At Discharge none Clinical Summary Cat Carroll is a 89 y.o. female patient of Claudine Majano MD with history of HTN, CAD, GERD, fibromyalgia presented to [facility] on 11/02/2024 with wekness, dizziness and urinary symptoms. Benign positional vertigo Stroke ruled out Nausea CTA on 10/31 at previous ED visit no flow-limiting stenosis, thrombus, dissection, aneurysm, or large vessel occlusion. There are short segment mild to moderate stenoses in the P2 and P3 segments of the ADJUNCT TRAINER on the left. No occlusion or thrombus. No acute intracranial abnormality. No hemorrhage or mass effect. 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 Patient previously prescribed meclizine she has not taken it Brain MRI showed no acute infarction, noted moderate brain atrophy and moderate chronic microvascular changes Was tried on scopolamine and now discontinued. Continue on Reglan and meclizine. PT for vestibular therapy. Consulted neurology. Overall symptoms have improved. UTI H/o recurrent UTIs History of overactive bladder on Gemtesa as a chronic therapy UA findings leukocyte esterase, nitrite, and urine WBCs.. Urine cultures Citrobacter. Status post 5 days of Rocephin. Lasix now on hold can resume at discharge. Hypomagnesemia Magnesium 1.5. Will replace with 2 g magnesium sulfate and repeat magnesium level tomorrow. History of trigeminal neuralgia Continue Lamictal History of hyperlipidemia Continue statin History of Kelly's esophagus Continue Protonix Discharge Medications Discharge Medications New Medications Details meclizine 25 MG chewable tablet Commonly known as: ANTIVERT Chew and Swallow 1 (one) tablet (25 mg total) 3 (three) times a day as needed for nausea or dizziness . Quantity: 270 tablet ondansetron 8 MG disintegrating tablet Commonly known as: ZOFRAN-ODT Dissolve 1 (one) tablet (8 mg total) on top of tongue every 8 (eight) hours as needed for nausea . Medications To Continue Details atorvastatin 40 MG tablet Commonly known as: LIPITOR Take 1 (one) tablet (40 mg total) by mouth nightly . Quantity: 90 tablet CALCIUM ORAL Take 1 tablet by mouth daily . CENTRUM SILVER WOMEN ORAL Take 1 tablet by mouth daily. colestipoL 1 gram tablet Commonly known as: COLESTID Take 2 (two) tablets (2 g total) by mouth daily with lunch . D-MANNOSE ORAL Take 2 capsules by mouth daily in the afternoon . ECOTRIN ORAL Take 81 mg by mouth every morning . estradioL 0.01 % (0.1 mg/gram) vaginal cream Commonly known as: ESTRACE Insert 2 (two) g into the vagina daily . Quantity: 42.5 g furosemide 20 MG tablet Commonly known as: LASIX Take 1 (one) tablet (20 mg total) by mouth daily . Quantity: 90 tablet Gemtesa 75 mg Tab Generic drug: vibegron Take 1 (one) tablet (75 mg total) by mouth daily . lamoTRIgine 200 MG tablet Commonly known as: LAMICTAL Take 1.5 (one and a half) tablets (300 mg total) by mouth 2 (two) times a day . Quantity: 90 tablet losartan 50 MG tablet Commonly known as: Cozaar Take 1 (one) tablet (50 mg total) by mouth daily . Quantity: 90 tablet methadone 5 MG tablet Commonly known as: DOLOPHINE Take 1.5 (one and a half) tablets (7.5 mg total) by mouth 2 (two) times a day (Days supply per fill: 30) Start: 10/26/24. Quantity: 90 tablet naloxone 4 mg/actuation Amanda Commonly known as: NARCAN Administer 1 spray into one nostril for known or suspected opioid overdose. If patient worsens or does not respond, may repeat in 2-3 minutes. . Quantity: 2 each nitroGLYCERIN 0.4 MG SL tablet Commonly known as: NITROSTAT Place 1 (one) tablet (0.4 mg total) under the tongue every 5 (five) minutes as needed for chest pain , if no relief after 3 doses call 911 . Quantity: 25 tablet pantoprazole 40 MG tablet Commonly known as: PROTONIX Take 1 (one) tablet (40 mg total) by mouth daily . Quantity: 90 tablet PROBIOTIC ORAL Take 1 capsule by mouth daily . VITAMIN B12 ORAL Take 1 tablet by mouth daily . Physician(s) Follow Up: No follow-up provider specified. Condition at Discharge: Stable Disposition: Home I reviewed discharge recommendations with the patient in person. Patient instructions, including activity, were given to the patient/family at discharge. On day of discharge I saw Cat Carroll and spent: > 30 minutes on discharge. Completed by: Katherine Sethi MD on 11/10/24, 1:19 PM documented in this encounter [facility] 11-10-2024 History of Present illness Narrative Medical Transportation set up by [facility] per hospital request: Date:11/10 Time:2pm Destination:[facility] Swing Bed [address] [place] [address] Company: [employer] ([phone]) Special needs/equipment:N/A Truck Type: Ambulance Companies called:[employer]trip Transport request received and is being scheduled, trip information will follow as soon as the time is secured. Occupational Therapy OCCUPATIONAL THERAPY TREATMENT NOTE Skilled Therapy Needs After Discharge Anticipate Resolution of Current Assessment Limitations Including: Mechanical Barriers Are OT Skilled Therapy Services Needed After Discharge: Yes Intensity of OT Skilled Therapy: 5 to 7 days per week Anticipated Duration of OT Skilled Therapy: Duration 10 - 30 days OT DME Recommendation: Wheeled Walker, To be determined at next level of care OT DME Rationale: Patient's condition creates an increased risk of safety hazard without recommended equipment Rehab Potential: Good Outcomes Measures Prior Function Daily Activity Raw Score: 24 Prior Function Daily Activity % Impaired: 0% AM-PAC Daily Activity Raw Score: 20 AM-PAC Daily Activity % Impaired: 38.32% Activity Tolerance Activity Tolerance: Tolerates 10 - 20 min activity with multiple rests Therapy Precautions Orthotic Devices: No Weight Bearing Status: [facility] General Rehab Precautions: Fall risk Cognition Arousal/Alertness: Appropriate responses to stimuli Orientation Level: Oriented X4 Executive functioning: WFL Safety Judgment: Decreased awareness of need for safety Problem Solving: Assistance required to identify errors made Attention: Attends to quiet environment Hearing Status: [facility] Social Interaction: WFL, Cooperative ADL Grooming: Set-up (pt able to wash face while seated in chair following setup) Grooming - Skilled Intervention Provided: environmental setup/modification, facilitation Grooming - For: efficient movement Grooming - Resulting In: improved overall self care, improved participation in ADL task Functional Mobility: Minimal assist (pivot to chair with ww) Functional Mobility - Skilled Intervention Provided: facilitation, monitoring patient response with activity Functional Mobility - For: controlled descent, fall prevention, efficient movement Functional Mobility - Resulting In: improved activity tolerance, improved balance, improved safety Bed Mobility Supine to Sit: Stand by assist Education Dean: bedrails Functional Transfers Sit to Stand: Contact guard assist Bed to Chair Transfers: Minimal assist Education Dean: wheeled walker Exercise Standing Exercises: Pt completing 20 repetitions of active shoulder and elbow flexion and extension in standing with unilateral support on ww and intermittent CGA for balance. Pt benefits from min cues for controlled movement Skilled intervention provided: verbal cues, facilitation, instruction on proper technique/alignment For: achieving full ROM as tolerated, frequency of exercise(s), hold duration, fall prevention Resulting In: efficient movement, improved activity tolerance, improved functional strength/ROM Balance Treatment Standing Balance - Static: Contact guard assist Education Dean - Standing Static: wheeled walker, LUE, RUE Additional Treatment Details Pt in chair at end of session with all needs within reach and breakaway alarm donned. Home Living Obtained Home Living and PLOF info from: Patient Lives With: Alone Type of Home: Trailer/Mobile home Home Layout: One level Steps to enter home: Yes Rails to enter home: 2 rails Number of stairs to enter home: 3 Bathroom Shower/Tub: Walk-in shower Bathroom Toilet: Raised Bathroom Equipment: Bulit-in shower seat, Grab bars around toilet Mobility Equipment: Quad cane, Rollator Prior Level of Function Receives Help From: Aide () Level of [place] - Transfers/Ambulation/Mobility: Independent with functional transfers, Independent with household ambulation (quad or rollator) Level of [place] - ADLs: Independent Level of [place] - Homemaking: Needs assistance (meals on wheels) Driving: Patient drives Vocational: Retired For complete objective data, detailed plan of care and patient education refer to: OT Evaluation flowsheet, OT Evaluation and Treatment flowsheet, OT Treatment flowsheet, patient Plan of Care, Plan of Care progress note, and Patient Education. This note stands as the current Discharge Summary upon patient discharge from the hospital or completion of Occupational Therapy Plan of Care. Date: 11/10/2024 Time: 10:50 AM Patient Name: Cat Carroll Date of : 1935 Discharge Disposition Update: Patient is able to discharge to [facility]. Will request transport. Plan A: [facility] Facility Plan A : Post Acute Patient Choice 1: Other ([facility]) Transportation: Discharge Disposition: Regulatory Documentation: Regulatory Documentation: Medicare IM Regulatory Documentation Status: Certified Patient Paper Copy: Patient received paper copy Occupational Therapy OCCUPATIONAL THERAPY TREATMENT NOTE Skilled Therapy Needs After Discharge Anticipate Resolution of Current Assessment Limitations Including: Mechanical Barriers Are OT Skilled Therapy Services Needed After Discharge: Yes Intensity of OT Skilled Therapy: 5 to 7 days per week Anticipated Duration of OT Skilled Therapy: Duration 10 - 30 days OT DME Recommendation: Wheeled Walker, To be determined at next level of care OT DME Rationale: Patient's condition creates an increased risk of safety hazard without recommended equipment Rehab Potential: Good Outcomes Measures Prior Function Daily Activity Raw Score: 24 Prior Function Daily Activity % Impaired: 0% AM-PAC Daily Activity Raw Score: 21 AM-PAC Daily Activity % Impaired: 32.79% Activity Tolerance Activity Tolerance: Tolerates 20 - 30 min activity with multiple rests Therapy Precautions Orthotic Devices: No Weight Bearing Status: [facility] General Rehab Precautions: Fall risk Cognition Arousal/Alertness: Appropriate responses to stimuli Orientation Level: Oriented X4 Executive functioning: WFL Safety Judgment: Decreased awareness of need for assistance Problem Solving: Assistance required to identify errors made Attention: Attends to quiet environment Hearing Status: [facility] Social Interaction: [facility] ADL Toileting: (denies needs (pure wick)) Bed Mobility Supine to Sit: Stand by assist, Head of bed elevated Education Dean: bedrails Skilled Intervention Provided: verbal cues, facilitation For: efficient movement, fall prevention Resulting In: improved activity tolerance, improved functional independence Functional Transfers Sit to Stand: Contact guard assist Bed to Chair Transfers: Minimal assist Education Dean: wheeled walker Skilled Intervention Provided: verbal cues, facilitation For: efficient movement, fall prevention Resulting In: improved activity tolerance, improved functional independence Exercise Seated Exercises: Pt. sat unsupported on EOB to engage in BUE AROM x10 in all planes at a slow pace within ROM limitations to increase UE strength for ease with ADL performance. Pt. denies any dizziness with sitting unsupported. Pt. tolerated sitting unsupported for 13 minutes with no LOB. Skilled intervention provided: verbal cues, facilitation For: efficient movement, fall prevention Resulting In: efficient movement, improved functional strength/ROM Balance Treatment Sitting Balance - Dynamic: Stand by assist Standing Balance - Static: Minimal assist Education Dean - Standing Static: wheeled walker Additional Treatment Details Pt. denies any dizziness throughout OT session. Pt. reports RN giving her meds to help with dizziness. Pt. left in chair, with call light within reach and break away alarm attached. Home Living Obtained Home Living and PLOF info from: Patient Lives With: Alone Type of Home: Trailer/Mobile home Home Layout: One level Steps to enter home: Yes Rails to enter home: 2 rails Number of stairs to enter home: 3 Bathroom Shower/Tub: Walk-in shower Bathroom Toilet: Raised Bathroom Equipment: Bulit-in shower seat, Grab bars around toilet Mobility Equipment: Quad cane, Rollator Prior Level of Function Receives Help From: Aide () Level of [place] - Transfers/Ambulation/Mobility: Independent with functional transfers, Independent with household ambulation (quad or rollator) Level of [place] - ADLs: Independent Level of [place] - Homemaking: Needs assistance (meals on wheels) Driving: Patient drives Vocational: Retired For complete objective data, detailed plan of care and patient education refer to: OT Evaluation flowsheet, OT Evaluation and Treatment flowsheet, OT Treatment flowsheet, patient Plan of Care, Plan of Care progress note, and Patient Education. This note stands as the current Discharge Summary upon patient discharge from the hospital or completion of Occupational Therapy Plan of Care. Cosigned by Azam Hylton OT at 11/10/2024 9:19 AM EDT Nutrition Care Follow up Patient reports improving; doing better at meals Monitoring and Evaluation: PO intake was greater than 50% at most meals. Nutrition Diagnosis: Inadequate Oral Intake related to dizziness as evidenced by admitting dx. Active Nutrition Intervention: Continue Medical Food Supplement Oral nutrition supplement: Continue No added sugar Mighty Shake with lunch and dinner Nutrition Goals: Tolerate diet with PO intakes >75% most meals and supplements Start Date:11/09/2024 Expected End Date:11/15/2024 Nutrition Education: No needs at this time Assessment: Height: 5' 4 Current weight: 52.3 kg (115 lb 4.8 oz) BMI Body mass index is 19.79 kg/m . Weight hx: Wt Readings from Last 10 Encounters: 11/02/24 52.3 kg (115 lb 4.8 oz) 10/31/24 56.2 kg (124 lb) 09/23/24 56.2 kg (124 lb) 07/18/24 55.3 kg (122 lb) 06/06/24 53.1 kg (117 lb) 05/24/24 54 kg (119 lb) 05/12/24 54.4 kg (120 lb) 04/13/24 50.3 kg (111 lb) 04/05/24 54 kg (119 lb) 03/16/24 54 kg (119 lb) Current diet order: Diet: Cardiac Recent intake: 50% Current intake likely does not meet estimated needs Barriers to adequate p.o. intakes: No barriers identified Patient/family comments:selecting menu Difficulty Chewing or Swallowing: No Skin Integrity: Intact GI Function: WDL Fluid Status: WNL Physical Appearance: No change from initial assessment Labs: Recent Labs 11/07/24 1021 NA 139 K 4.1 BICARB 26 CL 101 GLUCOSE 112* BUN 14 CREATININE 1.05 MG 1.5* Recent Labs 11/07/24 1021 GLUCOSE 112* Lab Results Component Value Date HGBA1C 5.4 10/24/2022 Scheduled Meds: atorvastatin 40 mg Oral Nightly enoxaparin (LOVENOX) injection 30 mg Subcutaneous Daily [Held by provider] furosemide 20 mg Oral Daily lamoTRIgine 250 mg Oral BID losartan 50 mg Oral Daily magnesium sulfate IVPB/IV replacement 2 g Intravenous Once meclizine 25 mg Oral TID melatonin 5 mg Oral Nightly methadone 7.5 mg Oral BID metoclopramide 5 mg Oral 4x daily before meals and nightly pantoprazole 40 mg Oral Daily sodium chloride (PF) 5 mL Intravenous Q8H DIYA Continuous Infusions: Estimated Energy Needs Total Energy Estimated Needs: 1800kcal Method for Estimating Needs: 35kcal/kg Total Protein Estimated Needs: 65gm Method for Estimating Needs: 1.2gm/kg Vasquez Santana RD Date: 11/09/2024 Time: 12:38 PM Patient Name: Cat Carroll Date of : 1935 Discharge Disposition Update: CM provide update to pt she was not accepted for admission to [facility]. CM reviewed list of other regional Swing bed options. Pt agreeable to referral to [facility] Swing bed. Pt is not agreeable to SNF if not accepted to Swing bed level of care facility. Elisabet Last CME provided with update to place referral. 1559 HRS: Elisabet Last CME left requesting update for admission consideration. No reply as of this time. 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 Therapy: 5 to 7 days per week PT DME Recommendation: To be determined at next level of care (owns rollator and quad cane) PT DME Rationale: Patient's condition creates an increased risk of safety hazard without recommended equipment Rehab Potential: Good Outcomes Measures Prior Function - Basic Mobility Raw Score: 24 Points Prior Function - Basic Mobility % Impaired: 0% AM-PAC Basic Mobility Raw Score: 16 Points AM-PAC Basic Mobility % Impaired: 47.12% Activity Tolerance Activity Tolerance: Tolerates 20 - 30 min activity with multiple rests (no significant changes in vitals with activity this date. c/o dizziness limiting therapy performance this date requiring increased time and effort.) Therapy Precautions Orthotic Devices: No Weight Bearing Status: WFL General Rehab Precautions: Fall risk (KWASI hose) Balance Sitting Balance - Static: Stand by assist, with back unsupported Loss of Balance - Sitting Static: (Instances of unsteadiness due to dizziness.) Sitting Balance - Dynamic: Contact guard assist, with back unsupported Loss of Balance - Sitting Dynamic: intermittent, posterior Sitting Balance Treatment: reaching outside base of support, maintaining midline orientation, postural re-education Skilled Intervention Provided: verbal cues, neuromuscular re-education, patient education For: fall prevention, self-monitoring during activity, balance recovery Resulting in: improved activity tolerance, improved performance, improved safety, increased upright tolerance for functional tasks, decreased fall risk Standing Balance - Static: Contact guard assist, Minimal assist (MIN initially due to retrolean) Education Dean - Standing Static: wheeled walker, BUE Loss of Balance- Standing Static: intermittent, posterior Standing Balance Treatment: maintaining midline, postural re-education Skilled Intervention Provided: verbal cues, tactile cues, neuromuscular re-education For: balance recovery, efficient movement, fall prevention, safe use of AD and/or equipment Resulting in: improved activity tolerance, improved performance, improved safety, decreased fall risk, increased upright tolerance for functional tasks Bed Mobility Rolling: Stand by assist Supine to Sit: Stand by assist Sit to Supine: Stand by assist Education Dean: bedrails, bed positioning mechanics Skilled Intervention Provided: verbal cues, monitoring patient response with activity, monitoring patient response with positional changes For: fall prevention, safe use of bedrails and/or equipment, safety during functional tasks, self-monitoring during activity, sequencing of movement Resulting in: improved activity tolerance, improved performance, improved safety, increased initiation in mobility task(s), increased upright tolerance for functional tasks Transfers Sit to Stand: Contact guard assist, Minimal assist Bed to Chair: (Unable to locate cheer for patient to safely transfer to.) Education Dean: BUE, wheeled walker Skilled Intervention Provided: verbal cues, tactile cues, monitoring patient response with positional changes, monitoring patient response with activity, patient education For: controlled descent, efficient movement, fall prevention, safe use of AD and/or equipment, safety during functional tasks, self-monitoring during activity Resulting in: improved activity tolerance, improved performance, improved safety, increased upright tolerance for functional tasks Gait/Locomotion Gait Assistance: (Patient feeling unsafe to do so.) Exercise Seated Exercises: Seated [id number]. Skilled Intervention Provided: verbal cues, monitoring patient response with exercise For: number of repetitions, muscle activation, self-monitoring during activity, efficient movement Resulting in: improved activity tolerance, improved safety, improved performance Additional Treatment Details Patient limited by dizziness. Home Living Obtained Home Living and PLOF info from: Patient Lives With: Alone Type of Home: Trailer/Mobile home Home Layout: One level Steps to enter home: Yes Rails to enter home: 2 rails Number of stairs to enter home: 3 Bathroom Shower/Tub: Walk-in shower Bathroom Toilet: Raised Bathroom Equipment: Bulit-in shower seat, Grab bars around toilet Mobility Equipment: Quad cane, Rollator Prior Level of Function Receives Help From: Aide () Level of [place] - Transfers/Ambulation/Mobility: Independent with functional transfers, Independent with household ambulation (quad or rollator) Level of [place] - ADLs: Independent Level of [place] - Homemaking: Needs assistance (meals on wheels) Driving: Patient drives Vocational: Retired For complete objective data, detailed plan of care and patient education refer to: PT Evaluation flowsheet, PT Evaluation and Treatment flowsheet, PT Treatment flowsheet, patient Plan of Care, Plan of Care progress note, and Patient Education. This note stands as the current Discharge Summary upon patient discharge from the hospital or completion of Physical Therapy Plan of Care. Cosigned by Amalia Lee, PT at 11/09/2024 1:53 PM EDT [facility] PROGRESS NOTE Patient name: Cat Carroll Date of : 1935 Assessment and plan Cat Carroll is a 89 y.o. female patient of Claudine Majano MD with history of HTN, CAD, GERD, fibromyalgia presented to [facility] on 11/02/2024 with wekness, dizziness and urinary symptoms. Benign positional vertigo Stroke ruled out Nausea CTA on 10/31 at previous ED visit no flow-limiting stenosis, thrombus, dissection, aneurysm, or large vessel occlusion. There are short segment mild to moderate stenoses in the P2 and P3 segments of the ADJUNCT TRAINER on the left. No occlusion or thrombus. No acute intracranial abnormality. No hemorrhage or mass effect. 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 Patient previously prescribed meclizine she has not taken it Brain MRI showed no acute infarction, noted moderate brain atrophy and moderate chronic microvascular changes Was tried on scopolamine and now discontinued. Continue on Reglan and meclizine. PT for vestibular therapy. Consulted neurology. Overall symptoms have improved. UTI H/o recurrent UTIs History of overactive bladder on Gemtesa as a chronic therapy UA findings leukocyte esterase, nitrite, and urine WBCs.. Urine cultures Citrobacter. Status post 5 days of Rocephin. Lasix now on hold can resume at discharge. Hypomagnesemia Magnesium 1.5. Will replace with 2 g magnesium sulfate and repeat magnesium level tomorrow. History of trigeminal neuralgia Continue Lamictal History of hyperlipidemia Continue statin History of Kelly's esophagus Continue Protonix Discharge planning Patient medically ready for discharge: no The patient and/or family has been notified they are expected to be medically stable for discharge on the following date: November 08 Patient requires continued hospitalization due to: symptom improvement Overall medically ready, [facility] denied, now [facility]. Discussed with the patient and/or family that Home is a potential discharge location, understanding that the final plan will depend on the patient's progress and shared decision-making. The following resources have been ordered to assist with discharge barriers: OT Quality measures DVT prophylaxis: lovenox Ghotra catheter: absent Code status DNRCC-Arrest Subjective Denies any dizziness this morning. No fevers overnight. Objective BP 135/67 Pulse 72 Temp 97.9 F (36.6 C) (Oral) Resp 18 Ht 5' 4 Wt 52.3 kg (115 lb 4.8 oz) SpO2 96% BMI 19.79 kg/m General appearance: alert; acutely ill appearing; in mild acute distress HEENT: Head- normocephalic; Eyes- EOMI, sclera anicteric; Throat- mucous membranes dry Cardiovascular: regular rate and rhythm; normal S1, S2; no murmurs, rubs, clicks or gallops; peripheral edema absent Respiratory: lungs clear to auscultation; without wheezes, rales or rhonchi; on room air Abdomen: soft, non-tender, non-distended Neurological: oriented x 3; normal speech; no focal findings or movement disorder noted Musculoskeletal: no significant deformity or tenderness to palpation Skin: normal coloration Psych: Anxious Date: 11/09/2024 Time: 9:09 AM Patient Name: Cat Carroll Date of : 1935 Discharge Disposition Update: [facility] denied patient, recommending snf. Will discuss with patient. Plan A: Home Health Care Services Transportation: Discharge Disposition: Regulatory Documentation: Regulatory Documentation: Medicare IM Regulatory Documentation Status: Certified Patient Paper Copy: Patient received paper copy Date: 11/08/2024 Time: 3:42 PM Patient Name: Cat Carroll Date of : 1935 Discharge Disposition Update: [facility] is reviewing patient. [facility] will continue to follow. Plan A: Home Health Care Services Transportation: Discharge Disposition: Regulatory Documentation: Regulatory Documentation: Medicare IM Regulatory Documentation Status: Certified Patient Paper Copy: Patient received paper copy [facility] PROGRESS NOTE Patient name: Cat Carroll Date of : 1935 Assessment and plan Cat Carroll is a 89 y.o. female patient of Claudine Majano MD with history of HTN, CAD, GERD, fibromyalgia presented to [facility] on 11/02/2024 with wekness, dizziness and urinary symptoms. Benign positional vertigo Stroke ruled out Nausea CTA on 10/31 at previous ED visit no flow-limiting stenosis, thrombus, dissection, aneurysm, or large vessel occlusion. There are short segment mild to moderate stenoses in the P2 and P3 segments of the ADJUNCT TRAINER on the left. No occlusion or thrombus. No acute intracranial abnormality. No hemorrhage or mass effect. 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 Patient previously prescribed meclizine she has not taken it Brain MRI showed no acute infarction, noted moderate brain atrophy and moderate chronic microvascular changes On meclizine to 25 mg 3 times daily Add Reglan scheduled given ongoing nausea despite scopolamine patch Referral for outpatient vestibular therapy OT consult for vestibular therapy Seen by neurology Joshua as needed Scopolamine patch given ongoing symptoms Patient still have ongoing symptoms, she will need vestibular therapy as inpatient to help with symptoms, still complaining of nystagmus and vertigo Awaiting transfer to TCU UTI H/o recurrent UTIs History of overactive bladder on Gemtesa as a chronic therapy UA findings leukocyte esterase, nitrite, and urine WBCs.. Urine cultures Citrobacter. Continue ceftriaxone, total duration of 5 days, end date placed S/p IV hydration, hold Lasix History of trigeminal neuralgia Continue Lamictal History of hyperlipidemia Continue statin History of Kelly's esophagus Continue Protonix Discharge planning Patient medically ready for discharge: no The patient and/or family has been notified they are expected to be medically stable for discharge on the following date: November 08 Patient requires continued hospitalization due to: symptom improvement Discussed with the patient and/or family that Home is a potential discharge location, understanding that the final plan will depend on the patient's progress and shared decision-making. The following resources have been ordered to assist with discharge barriers: OT Quality measures DVT prophylaxis: lovenox Ghotra catheter: absent Code status DNRCC-Arrest Subjective Feeling okay she states she does not get the dizziness if she lies still but vertigo happen every time she moves her head Objective BP (!) 144/73 (BP Location: Left arm, Patient Position: Sitting) Pulse 71 Temp 97.7 F (36.5 C) (Oral) Resp 16 Ht 5' 4 Wt 52.3 kg (115 lb 4.8 oz) SpO2 96% BMI 19.79 kg/m General appearance: alert; acutely ill appearing; in mild acute distress HEENT: Head- normocephalic; Eyes- EOMI, sclera anicteric; Throat- mucous membranes dry Cardiovascular: regular rate and rhythm; normal S1, S2; no murmurs, rubs, clicks or gallops; peripheral edema absent Respiratory: lungs clear to auscultation; without wheezes, rales or rhonchi; on room air Abdomen: soft, non-tender, non-distended Neurological: oriented x 3; normal speech; no focal findings or movement disorder noted Musculoskeletal: no significant deformity or tenderness to palpation Skin: normal coloration Psych: Anxious Physical Therapy PHYSICAL THERAPY TREATMENT NOTE Skilled Therapy Needs After Discharge Anticipate Resolution of Current Assessment Limitations Including: Mechanical Barriers, Social Support, Pain 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 After Discharge: Yes 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 Therapy: 5 to 7 days per week PT DME Recommendation: To be determined at next level of care (owns rollator and quad cane) PT DME Rationale: Patient's condition creates an increased risk of safety hazard without recommended equipment Rehab Potential: Good Outcomes Measures Prior Function - Basic Mobility Raw Score: 24 Points Prior Function - Basic Mobility % Impaired: 0% AM-PAC Basic Mobility Raw Score: 16 Points AM-PAC Basic Mobility % Impaired: 47.12% Activity Tolerance Activity Tolerance: Tolerates 20 - 30 min activity with multiple rests (C/o dizziness throughout session limiting mobility) Therapy Precautions Orthotic Devices: No Weight Bearing Status: WFL General Rehab Precautions: Fall risk (KWASI hose) Balance Sitting Balance - Static: Stand by assist, with back unsupported Sitting Balance - Dynamic: Contact guard assist, with back unsupported Loss of Balance - Sitting Dynamic: intermittent, posterior (interm. LOB posterior with seated therex at EOB) Sitting Balance Treatment: maintaining midline orientation Skilled Intervention Provided: patient education, verbal cues, tactile cues For: fall prevention, self-monitoring during activity Resulting in: improved functional independence, improved activity tolerance, improved trunk stability Standing Balance - Static: Contact guard assist, with device Education Dean - Standing Static: wheeled walker Bed Mobility Supine to Sit: Contact guard assist, Head of bed elevated Sit to Supine: Contact guard assist, Head of bed flat Education Dean: bedrails, bed positioning mechanics Skilled Intervention Provided: verbal cues, tactile cues, monitoring patient response with activity, patient education, monitoring patient response with positional changes For: efficient movement, safety during functional tasks, self-monitoring during activity, sequencing of movement Resulting in: improved functional independence Transfers Sit to Stand: Contact guard assist Education Dean: BUE, wheeled walker Skilled Intervention Provided: verbal cues, tactile cues, monitoring patient response with positional changes, monitoring patient response with activity, patient education For: controlled descent, safety during functional tasks, safe use of AD and/or equipment, self-monitoring during activity Resulting in: improved functional independence, improved performance, improved safety Gait/Locomotion Gait Assistance: (polietly declined d/t dizziness) Exercise Ankle Pumps: x20 fabio Hip Flexion: x15 fabio Hip Abduction: x15 fabio Long Arc Quad: x15 fabio Seated Exercises: Hip Add x15 Skilled Intervention Provided: verbal cues, tactile cues, instruction on proper technique/alignment, monitoring patient response with exercise, patient education For: achieving full ROM as tolerated, frequency of exercise(s), efficient movement, hold duration Resulting in: efficient movement, improved functional strength/ROM, improved independence with HEP, improved activity tolerance Additional Treatment Details Pt. c/o increased dizziness upon arrival. BP 130/66 in supine, 159/76 sitting, and 119/75 in standing. Increased dizziness noted in standing, nursing updated. In bed with nursing in room upon exitng. Home Living Obtained Home Living and PLOF info from: Patient Lives With: Alone Type of Home: Trailer/Mobile home Home Layout: One level Steps to enter home: Yes Rails to enter home: 2 rails Number of stairs to enter home: 3 Mobility Equipment: Quad cane, Rollator Prior Level of Function Receives Help From: Aide () Level of [place] - Transfers/Ambulation/Mobility: Independent with functional transfers, Independent with household ambulation (quad or rollator) Level of [place] - ADLs: Independent Level of [place] - Homemaking: Needs assistance (meals on wheels) Driving: Patient drives Vocational: Retired For complete objective data, detailed plan of care and patient education refer to: PT Evaluation flowsheet, PT Evaluation and Treatment flowsheet, PT Treatment flowsheet, patient Plan of Care, Plan of Care progress note, and Patient Education. This note stands as the current Discharge Summary upon patient discharge from the hospital or completion of Physical Therapy Plan of Care. Cosigned by Farzaneh Arango, PT at 11/08/2024 1:01 PM EDT [facility] [place] Patient name: Cat Carroll Date of : 1935 Assessment and plan Cat Carroll is a 89 y.o. female patient of Claudine Majano MD with history of HTN, CAD, GERD, fibromyalgia presented to [facility] on 11/02/2024 with wekness, dizziness and urinary symptoms. Benign positional vertigo Stroke ruled out Nausea CTA on 10/31 at previous ED visit no flow-limiting stenosis, thrombus, dissection, aneurysm, or large vessel occlusion. There are short segment mild to moderate stenoses in the P2 and P3 segments of the ADJUNCT TRAINER on the left. No occlusion or thrombus. No acute intracranial abnormality. No hemorrhage or mass effect. 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 Patient previously prescribed meclizine she has not taken it Brain MRI showed no acute infarction, noted moderate brain atrophy and moderate chronic microvascular changes Increase meclizine to 25 mg 3 times daily Add Reglan scheduled given ongoing nausea despite scopolamine patch Referral for outpatient vestibular therapy OT consult for vestibular therapy Seen by neurology Joshua as needed Scopolamine patch given ongoing symptoms Patient still have ongoing symptoms, she will need vestibular therapy as inpatient to help with symptoms, still complaining of nystagmus and vertigo UTI H/o recurrent UTIs History of overactive bladder on Gemtesa as a chronic therapy UA findings leukocyte esterase, nitrite, and urine WBCs.. Urine cultures Citrobacter. Continue ceftriaxone, total duration of 5 days, end date placed IV hydration, hold Lasix History of trigeminal neuralgia Continue Lamictal History of hyperlipidemia Continue statin History of Kelly's esophagus Continue Protonix Discharge planning Patient medically ready for discharge: no The patient and/or family has been notified they are expected to be medically stable for discharge on the following date: November 08 Patient requires continued hospitalization due to: symptom improvement Discussed with the patient and/or family that Home is a potential discharge location, understanding that the final plan will depend on the patient's progress and shared decision-making. The following resources have been ordered to assist with discharge barriers: OT Quality measures DVT prophylaxis: lovenox Ghotra catheter: absent Code status DNRCC-Arrest Subjective Blurry vision Dizziness Nausea resolved Objective BP 121/68 Pulse 78 Temp 97.7 F (36.5 C) (Oral) Resp 16 Ht 5' 4 Wt 52.3 kg (115 lb 4.8 oz) SpO2 98% BMI 19.79 kg/m General appearance: alert; acutely ill appearing; in mild acute distress HEENT: Head- normocephalic; Eyes- EOMI, sclera anicteric; Throat- mucous membranes dry Cardiovascular: regular rate and rhythm; normal S1, S2; no murmurs, rubs, clicks or gallops; peripheral edema absent Respiratory: lungs clear to auscultation; without wheezes, rales or rhonchi; on room air Abdomen: soft, non-tender, non-distended Neurological: oriented x 3; normal speech; no focal findings or movement disorder noted Musculoskeletal: no significant deformity or tenderness to palpation Skin: normal coloration Psych: Anxious [facility] [place] [place] Patient name: Cat Carroll Date of : 1935 Assessment and plan Cat Carroll is a 89 y.o. female patient of Claudine Majano MD with history of HTN, CAD, GERD, fibromyalgia presented to [facility] on 11/02/2024 with wekness, dizziness and urinary symptoms. Benign positional vertigo Stroke ruled out Nausea CTA on 10/31 at previous ED visit no flow-limiting stenosis, thrombus, dissection, aneurysm, or large vessel occlusion. There are short segment mild to moderate stenoses in the P2 and P3 segments of the ADJUNCT TRAINER on the left. No occlusion or thrombus. No acute intracranial abnormality. No hemorrhage or mass effect. 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 Patient previously prescribed meclizine she has not taken it Brain MRI showed no acute infarction, noted moderate brain atrophy and moderate chronic microvascular changes Increase meclizine to 25 mg 3 times daily Add Reglan scheduled given ongoing nausea despite scopolamine patch Referral for outpatient vestibular therapy OT consult for vestibular therapy Seen by neurology Zofran as needed Scopolamine patch given ongoing symptoms UTI H/o recurrent UTIs History of overactive bladder on Gemtesa as a chronic therapy UA findings leukocyte esterase, nitrite, and urine WBCs.. Urine cultures Citrobacter. Continue ceftriaxone, total duration of 5 days, end date placed IV hydration, hold Lasix History of trigeminal neuralgia Continue Lamictal History of hyperlipidemia Continue statin History of Kelly's esophagus Continue Protonix Discharge planning Patient medically ready for discharge: no The patient and/or family has been notified they are expected to be medically stable for discharge on the following date: November 08 Patient requires continued hospitalization due to: symptom improvement Discussed with the patient and/or family that Home is a potential discharge location, understanding that the final plan will depend on the patient's progress and shared decision-making. The following resources have been ordered to assist with discharge barriers: OT Quality measures DVT prophylaxis: lovenox Ghotra catheter: absent Code status DNRCC-Arrest Subjective vertigo, dizziness Nausea Objective BP 122/66 Pulse 72 Temp 98.1 F (36.7 C) (Oral) Resp 16 Ht 5' 4 Wt 52.3 kg (115 lb 4.8 oz) SpO2 93% BMI 19.79 kg/m General appearance: alert; acutely ill appearing; in mild acute distress HEENT: Head- normocephalic; Eyes- EOMI, sclera anicteric; Throat- mucous membranes dry Cardiovascular: regular rate and rhythm; normal S1, S2; no murmurs, rubs, clicks or gallops; peripheral edema absent Respiratory: lungs clear to auscultation; without wheezes, rales or rhonchi; on room air Abdomen: soft, non-tender, non-distended Neurological: oriented x 3; normal speech; no focal findings or movement disorder noted Musculoskeletal: no significant deformity or tenderness to palpation Skin: normal coloration Psych: Anxious [facility] [place] [place] Patient name: Cat Carroll Date of : 1935 Assessment and plan Cat Carroll is a 89 y.o. female patient of Claudine Majano MD with history of HTN, CAD, GERD, fibromyalgia presented to [facility] on 11/02/2024 with wekness, dizziness and urinary symptoms. Benign positional vertigo Stroke ruled out Nausea CTA on 10/31 at previous ED visit no flow-limiting stenosis, thrombus, dissection, aneurysm, or large vessel occlusion. There are short segment mild to moderate stenoses in the P2 and P3 segments of the ADJUNCT TRAINER on the left. No occlusion or thrombus. No acute intracranial abnormality. No hemorrhage or mass effect. 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 Patient previously prescribed meclizine she has not taken it Brain MRI showed no acute infarction, noted moderate brain atrophy and moderate chronic microvascular changes Change meclizine to 3 times daily 12.5 mg 3 times daily Referral for outpatient vestibular therapy OT consult for vestibular therapy Seen by neurology Joshua as needed Scopolamine patch given ongoing symptoms UTI H/o recurrent UTIs History of overactive bladder on Gemtesa as a chronic therapy UA findings leukocyte esterase, nitrite, and urine WBCs.. Urine cultures Citrobacter. Continue ceftriaxone IV hydration, hold Lasix History of trigeminal neuralgia Continue Lamictal History of hyperlipidemia Continue statin History of Kelly's esophagus Continue Protonix Discharge planning Patient medically ready for discharge: no The patient and/or family has been notified they are expected to be medically stable for discharge on the following date: tomorrow (11/06/2024) Patient requires continued hospitalization due to: symptom improvement Discussed with the patient and/or family that Home is a potential discharge location, understanding that the final plan will depend on the patient's progress and shared decision-making. The following resources have been ordered to assist with discharge barriers: OT Quality measures DVT prophylaxis: lovenox Ghotra catheter: absent Code status DNRCC-Arrest Subjective Dizziness improving, nausea resolved Objective BP 129/63 (BP Location: Left arm, Patient Position: Lying) Pulse 77 Temp 98.4 F (36.9 C) (Oral) Resp 16 Ht 5' 4 Wt 52.3 kg (115 lb 4.8 oz) SpO2 96% BMI 19.79 kg/m General appearance: alert; acutely ill appearing; in mild acute distress HEENT: Head- normocephalic; Eyes- EOMI, sclera anicteric; Throat- mucous membranes dry Cardiovascular: regular rate and rhythm; normal S1, S2; no murmurs, rubs, clicks or gallops; peripheral edema absent Respiratory: lungs clear to auscultation; without wheezes, rales or rhonchi; on room air Abdomen: soft, non-tender, non-distended Neurological: oriented x 3; normal speech; no focal findings or movement disorder noted Musculoskeletal: no significant deformity or tenderness to palpation Skin: normal coloration Psych: Anxious Neurology Follow Up Note [facility] Date of Service: 11/04/24 Service Type: Follow up, neurology Patient: Cat Carroll Date of : 1935 (89 y.o.) Assessment ASSESSMENT: Cat Carroll is a 89 y.o. female who presented to [facility] on 11/02/2024 with dizziness; neurology consulted for the same. Patient known to me with history of trigeminal neuralgia. She has a history of dizziness even prior to that diagnosis, which made medications challenging; lamotrigine has been the only tolerable/effective approach so far. Presents with generalized weakness, instability, nausea, dysuria, urinary frequency, anorexia. History of recurrent UTI. Urine culture with over 100,000 CFU of gram-negative bacilli. MRI negative. Dizziness is likely multifactorial. The acute trigger is probably UTI, with contributions from her medications (lamotrigine and methadone both can cause dizziness) and known spinal stenosis also playing a role with regards to her balance. She also has chronic BPPV which is contributing. As mentioned, she had chronic dizziness even before starting either of those meds, so they are not the main problem. I will adjust her lamotrigine dose as the level is a little high. Can cut down to 250mg BID; may need a new script for 25mg tabs outpatient (200mg + 2 x 25mg tabs for total 250mg). She would probably benefit from vestibular therapy. Diagnoses: Generalized weakness and imbalance, multifactorial Trigeminal neuralgia Lumbar spinal stenosis Admitted with these risk variables:None. Please see assessment and plan for further details. PLAN: - Continue lamotrigine at new dose of 250mg BID - PT/OT - vestibular rehab after discharge - continue home atorvastatin - meclizine PRN, scopolamine patch added today - Zofran PRN for nausea -Once feeling stable enough to go home, can discharge and work with vestibular therapy - Will follow-up with me outpatient for trigeminal neuralgia - neurology will sign off at this time. However, please do not hesitate to contact us with any questions, concerns, or changes in exam. Rocael Mcleod MD Staff Neurologist [facility] [phone], [facility] [address] [facility] 11/04/24 Parts of this note may have been dictated using Nuance Dragon, a speech-recognition software. Syntax errors and sound-alike substitutions which may escape proofreading could be present. In such instances, the actual meaning can be extrapolated from the context. Subjective SUBJECTIVE: Chief Complaint/Reason for Consult: dizziness History of Present Illness: Cat Carroll is a 89 y.o. female who presented on 11/02/2024 for dizziness and other symptoms. Neurology is consulted for the same. Patient known to me for trigeminal neuralgia, managed on lamotrigine. She has chronic dizziness since before I met her which made medication choice challenging (lamotrigine was really my last option anyway so it's good that it worked). Presents with worsening dizziness but also nausea, vomiting, blurry vision, generalized weakness, dysuria, increased urinary frequency, urinary incontinence, for at least a week. UA suggestive of UTI. TN pain is controlled now, no issues there. Interval history 11/04/24: Still feels dizzy today. She is sitting in the chair, says it feels like both she and the world are spinning. She has not been eating much. Not been drinking much. No pain though. Review of systems: All systems were reviewed and found to be negative except for those mentioned in the HPI. 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 She has a past surgical history that includes Egd (01/01/2015); Egd (08/2014); Dilatation And Curettage (D And C) (1969); Hysterectomy (1974); Cholecystectomy; Kidney surgery (1968); Bladder repair (1989); Lumpectomy (Left, 1989); Cyst Removal (Right, 1999); Knee surgery (Left, 1997); Squamous cell carcinoma excision; Fracture surgery (Right); Cataract Ext/Ecce (Bilateral, 2011); Total knee arthroplasty (Left, 2012); Back surgery (2013); Tumor removal (2011); Esophagogastroduodenoscopy (01/04/2018); hc left heart cath (N/A, 08/23/2018); Orif Hip Gamma Nail (Right, 04/02/2020); pr njx dx/ther agt pvrt facet jt lmbr/sac 1 level (Bilateral, 06/18/2023); pr njx dx/ther agt pvrt facet jt lmbr/sac 1 level (Bilateral, 07/02/2023); pr dstr nrolytc agnt parverteb fct sngl lmbr/sacral (Bilateral, 01/21/2024); and pr dstr nrolytc agnt parverteb fct addl lmbr/sacral (Bilateral, 01/21/2024). She family history includes Bipolar disorder in her daughter; Dementia in her sister; Diabetes in her brother, maternal uncle, mother, sister, and son; Heart disease in her brother, father, and mother; Stroke in her father. She reports that she quit smoking about 48 years ago. Her smoking use included cigarettes. She has never been exposed to tobacco smoke. She has never used smokeless tobacco. She reports that she does not drink alcohol and does not use drugs. Allergies: Allergies: Aspirin; Codeine; Diphenhydramine; Gabapentin; Latex, natural rubber; Adhesive tape-silicones; Bacitracin; Bacitracin zinc-polymyxin b; Carbamazepine; Hydrocortisone; Lidocaine; Neomycin; and Fchnjopy-fmzboahvsad-upzotzeiq MEDICATIONS: WERE REVIEWED AND CHECKED FOR ALLERGIES AND INTERACTIONS (IN EMR). Objective OBJECTIVE: Physical Examination: BP (!) 112/57 Pulse 79 Temp 97.7 F (36.5 C) (Oral) Resp 16 Ht 5' 4 Wt 52.3 kg (115 lb 4.8 oz) SpO2 98% BMI 19.79 kg/m GENERAL: General Appearance: Tired, ill-appearing, sitting up in the chair. HEENT: Normocephalic. No conjunctival injection. Ears appear normal. No substantial sinus drainage. See below for vision/hearing Neck: Supple, no focal bony tenderness, no mass lesions Respiratory Effort: Normal Extremities: No edema Skin: No rashes visualized on limited skin exam MSK: No joint deformities Neurological examination: MENTAL STATUS: Alertness, Attention Span & Concentration: while she doesn't seem like the best historian, she is awake, alert, attentive. She made a single error when counting months backward and did serial 7s normally. Language: Normal Speech: Normal Orientation: Oriented to person, place, time/date, and situation Memory, Recent & Remote: 2/3 recall at 5 minutes. Fund of Knowledge: Normal CRANIAL NERVES: II - Visual Leos: Normal II, III: Pupils: PERRL, no RAPD III, IV, : Eye Movements: few beats of end-gaze nystagmus with lateral gaze to either side + [place]-Hallpike but curiously in both directions V - Facial Sensation: slightly more sensitive on the left face than the right. VII: Face Symmetry & Strength: Normal VIII - Hearing: Normal to finger rub bilaterally IX, X - Palate: Normal, elevates symmetrically XI - Shoulder Shrug: Normal XII - Tongue Protrusion: Normal, symmetric MOTOR: Muscle Strength Right Left 5 Shoulder Abduction (Deltoid) 5 5 Elbow Flexion (Biceps) 5 5 Elbow Extension (Triceps) 5 5 Wrist Flexion 5 5 Wrist Extension 5 5 Finger Abduction (Interossei) 5 Right Left 4 Hip Extension 4 4 Hip Flexion (Iliopsoas) 4 5 Knee Extension (Quads) 5 5 Knee Flexion (Hamstrings) 5 5 Dorsiflexion (Anterior Tibialis) 5 5 Plantar Flexion (Gastrocnemius) 5 MOTOR AVILA: 5 Normal (Normal Power) 4 Mild Weakness (Movement against moderate resistance over a full range of motion) 3 Moderate Weakness (Movement against gravity only over almost full range of motion) 2 Severe Weakness (Movement with gravity eliminated over almost full range of motion) 1 Trace Movement (Contraction visible or palpable without effective movement of the joint) 0 No Movement (No contraction visible or palpable) MARGUERITE Unable to Assess Normal Bulk and Tone, no atrophy. Hips limited by back pain. SENSATION: Fine Touch: Normal Pinprick: Normal REFLEXES: Right Reflexes Left 2+ Biceps 2+ 2+ Triceps 2+ 2+ Brachioradialis 2+ 1+ Patellar 1+ 1+ Achilles 1+ Down Plantar Response (Babinski) Down REFLEXES AVILA: 4+ Sustained Clonus 3+ Brisk 2+ Normal 1+ Diminished 0 Absent MARGUERITE Unable to Assess COORDINATION: Coordination [id number]: Mild intention tremor bilaterally and mild dysmetria, R>L Cabrera Finger taps: normal Coordination Xadv-Fqav-Bzdw: normal Diadochokinesis: normal STANCE AND GAIT: Base/Stance: Normal/ narrow base Gait: A little unsteady. Mix of what seems to be mild ataxia as well as antalgia, stiffness at low back/hips. Deconditioned. Slow, cautious steps Gait Aid Used During Exam: None Gait Assistance Required During Exam: moderate MOVEMENT DISORDERS EXAMINATION: Tremor - no tremors noted other than mild intention tremors. Bradykinesia - None Rigidity - None Dyskinesia/Choreoathetosis - None Dystonia/Myoclonus/Tics - None DIAGNOSTIC TESTING SUMMARY: Pending Lab and Radiology Results Order Current Status Urine Aerobic Culture Preliminary result Resulted Testing: (MRI/CT/XR, EEG, EMG, CSF, Cardiac, Labs) MRI brain w/o: no acute infarct. Moderate atrophy, mild microvascular ischemic disease changes. CTA head/neck: no LVO, aneurysm, etc. Mild to moderate stenosis in distal left ADJUNCT TRAINER, probably incidental. CBC unremarkable. CMP with Cr 1.2, otherwise WNL (baseline). UA + nitrite, +LE, 11 WBCs, rare bacteria. Attestation: Discussed risks, benefits and alternatives regarding plan with patient/family/caregivers and answered the questions. I independently reviewed radiology images and summarized in this note with annotations and screenshots wherever appropriate. Time statement: A total of 37 minutes were spent on this encounter either in the patient's room or on the patient's hospital unit and over 50% of that time was spent on djkw-pe-[id number] counseling and/or coordination of care. This includes discussions with patient/family as well as with consulting care providers, regarding clinical course, prognosis, treatment alternatives, expected outcomes of medications and their side effects. [facility] Patient name: Verlin M Glen Date of : 1935 Assessment and plan Cat Carroll is a 89 y.o. female patient of Claudine Majano MD with history of HTN, CAD, GERD, fibromyalgia presented to [facility] on 11/02/2024 with wekness, dizziness and urinary symptoms. Benign positional vertigo Stroke ruled out Nausea CTA on 10/31 at previous ED visit no flow-limiting stenosis, thrombus, dissection, aneurysm, or large vessel occlusion. There are short segment mild to moderate stenoses in the P2 and P3 segments of the ADJUNCT TRAINER on the left. No occlusion or thrombus. No acute intracranial abnormality. No hemorrhage or mass effect. 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 Patient previously prescribed meclizine she has not taken it Brain MRI showed no acute infarction, noted moderate brain atrophy and moderate chronic microvascular changes Added meclizine Referral for outpatient vestibular therapy OT consult for vestibular therapy Seen by neurology Zofran as needed Scopolamine patch given ongoing symptoms UTI H/o recurrent UTIs History of overactive bladder on Gemtesa as a chronic therapy UA findings leukocyte esterase, nitrite, and urine WBCs.. Urine cultures enteric gram-negative, follow-up Continue ceftriaxone IV hydration, hold Lasix History of trigeminal neuralgia Continue Lamictal History of hyperlipidemia Continue statin History of Kelly's esophagus Continue Protonix Discharge planning Patient medically ready for discharge: no The patient and/or family has been notified they are expected to be medically stable for discharge on the following date: tomorrow (11/05/2024) Patient requires continued hospitalization due to: symptom improvement Discussed with the patient and/or family that Home is a potential discharge location, understanding that the final plan will depend on the patient's progress and shared decision-making. The following resources have been ordered to assist with discharge barriers: OT Quality measures DVT prophylaxis: lovenox Ghotra catheter: absent Code status DNRCC-Arrest Subjective Dizziness, feeling nauseous, without vomiting Objective BP (!) 112/57 Pulse 79 Temp 97.7 F (36.5 C) (Oral) Resp 16 Ht 5' 4 Wt 52.3 kg (115 lb 4.8 oz) SpO2 98% BMI 19.79 kg/m General appearance: alert; acutely ill appearing; in mild acute distress HEENT: Head- normocephalic; Eyes- EOMI, sclera anicteric; Throat- mucous membranes dry Cardiovascular: regular rate and rhythm; normal S1, S2; no murmurs, rubs, clicks or gallops; peripheral edema absent Respiratory: lungs clear to auscultation; without wheezes, rales or rhonchi; on room air Abdomen: soft, non-tender, non-distended Neurological: oriented x 3; normal speech; no focal findings or movement disorder noted Musculoskeletal: no significant deformity or tenderness to palpation Skin: normal coloration Psych: Anxious Date: 11/04/2024 Time: 1:14 PM Patient Name: Cat Carroll Date of : 1935 Discharge Disposition Update: Patient will need OP vestibular therapy. Referral sent. Patient wants to return home when able. 2:30pm- Discussion with patient regarding discharge. Patient is unsure about going to [facility] for additional therapy. Patient would like worker to call her son to discuss. 3:00pm- Worker called patient's son, who lives in [place]. He states he is unable to always be with his mom because he lives at least an hour away. Son states that he does what he can for his mom, but that he also works pay station department manager. Esvin is in agreement with patient having a referral being sent to [facility]. Patient did not feel she could tolerate IPR but was agreeable to [facility] [address]. Plan A: Home Health Care Services Transportation: Discharge Disposition: Regulatory Documentation: Spiritual Care Progress Note Completed by: JAMSHID VARGHESE Person(s) Present During this Visit: Patient Time Spent in Direct Patient Care: 5 Narrative: Introduced self and role. Pt [facility]ends [employer] in [place]. Patients Response to Pastoral Care: Appeared to be well-engaged, Expressed Gratitude for Visit Planning for Future Visits: PRN 11/03/24 1700 Visit Background Visit With Patient Visit By Staff Tow Bar Driver Visit Progression Introduction Visit Requested By Tow Bar Driver Initiated Visit Source Tow Bar Driver Initiated Visit Type Inpatient Visit Circumstances and Events Routine Visit Visit Length (minutes) 5 Patient's Response to Pastoral Care Appeared to be well-engaged;Expressed Gratitude for Visit Visit Planning PRN Spiritual Assessment Not assessed during visit Presybeterian Assessment Not assessed during this visit Family assessment provided? Not assessed during this visit Chaplain Jamshid Varghese MD[address] [address] Office:[phone] Flight Teacher Tow Bar Driver: [phone] [facility] Patient name: Cat Carroll Date of : 1935 Assessment and plan Cat Carroll is a 89 y.o. female patient of Claudine Majano MD with history of HTN, CAD, GERD, fibromyalgia presented to [facility] on 11/02/2024 with wekness, dizziness and urinary symptoms. Vertigo suspected benign positional vertigo Stroke ruled out Nausea CTA on 10/31 at previous ED visit no flow-limiting stenosis, thrombus, dissection, aneurysm, or large vessel occlusion. There are short segment mild to moderate stenoses in the P2 and P3 segments of the ADJUNCT TRAINER on the left. No occlusion or thrombus. No acute intracranial abnormality. No hemorrhage or mass effect. 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 Patient previously prescribed meclizine she has not taken it Brain MRI showed no acute infarction, noted moderate brain atrophy and moderate chronic microvascular changes Added meclizine OT consult for vestibular therapy Neurology evaluation pending Zofran as needed UTI H/o recurrent UTIs History of overactive bladder on Gemtesa as a chronic therapy UA findings leukocyte esterase, nitrite, and urine WBCs.. Urine cultures ordered. Continue ceftriaxone Cultures no growth to date so far History of trigeminal neuralgia Continue Lamictal History of hyperlipidemia Continue statin History of Kelly's esophagus Continue Protonix Discharge planning Patient medically ready for discharge: no The patient and/or family has been notified they are expected to be medically stable for discharge on the following date: tomorrow (11/04/2024) Patient requires continued hospitalization due to: symptom improvement Discussed with the patient and/or family that Home is a potential discharge location, understanding that the final plan will depend on the patient's progress and shared decision-making. The following resources have been ordered to assist with discharge barriers: OT Quality measures DVT prophylaxis: lovenox Ghotra catheter: absent Code status DNRCC-Arrest Subjective Patient complaining of room spinning sensation and nausea this morning, started around a week ago, no other neurological symptoms Objective BP 133/67 Pulse 76 Temp 97.7 F (36.5 C) (Oral) Resp 17 Ht 5' 4 Wt 52.3 kg (115 lb 4.8 oz) SpO2 95% BMI 19.79 kg/m General appearance: alert; acutely ill appearing; in mild acute distress HEENT: Head- normocephalic; Eyes- EOMI, sclera anicteric; Throat- mucous membranes moist Cardiovascular: regular rate and rhythm; normal S1, S2; no murmurs, rubs, clicks or gallops; peripheral edema absent Respiratory: lungs clear to auscultation; without wheezes, rales or rhonchi; on room air Abdomen: soft, non-tender, non-distended Neurological: oriented x 3; normal speech; no focal findings or movement disorder noted Musculoskeletal: no significant deformity or tenderness to palpation Skin: normal coloration Psych: normal mood and affect Nutrition Care Initial Assessment Seen at breakfast(11/03) took most of meal; complains of dizziness; hx: Kelly's esophagus Reason for visit: Nursing Referral: the patient has experienced a decreased appetite over the last month Nutrition Diagnosis: Inadequate Oral Intake related to poor appetite as evidenced by weight loss. 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 Cabrera donna. Dr Hinds BLADDER REPAIR 1989 CATARACT EXT/ECCE Bilateral 2011 Dr arambula CHOLECYSTECTOMY CYST REMOVAL Right 1999 cyst removal from rt breast-benign DILATION AND CURETTAGE (D AND C) 1970 x 2 EGD 01/01/2015 Dr. ZavalaLkqktg-Ltsunxsnx-Jvjrreo's esophagus EGD 08/2014 Dr. Vinicius Pruett-Barrett's esophagitis biopsies negative for dysplasia. ESOPHAGOGASTRODUODENOSCOPY 01/04/2018 Dr. Zavala -biopsies performed-Kelly's esophagitis-carcinoid tumor posterior wall duodenum FRACTURE SURGERY Right Plates and screws in rt arm after fracture. dr Dolan LEFT HEART CATH N/A 08/23/2018 Procedure: Left Heart Cath; Surgeon: Glen Fair MD; Location: [facility]; Service: Cardiovascular HYSTERECTOMY 1974 KIDNEY SURGERY 1969 had exploratory surgery d/t floating kidney Dx KNEE SURGERY Left 1997 left knee arthoscopy LUMPECTOMY Left 1989 benign ORIF HIP GAMMA NAIL Right 04/02/2020 IN DSTR NROLYTC AGNT PARVERTEB FCT ADDL LMBR/SACRAL Bilateral 01/21/2024 Procedure: Lumbar medial branch nerve radiofrequency ablation, bilateral lumbar 1-2-3; Surgeon: Jake Navarro DO; Location: Main OR; Service: Pain Management IN DSTR NROLYTC AGNT PARVERTEB FCT SNGL LMBR/SACRAL Bilateral 01/21/2024 Procedure: Lumbar medial branch nerve radiofrequency ablation, bilateral lumbar 1-2-3; Surgeon: Jake Navarro DO; Location: Main OR; Service: Pain Management IN NJX DX/THER AGT PVRT FACET JT LMBR/SAC 1 LEVEL Bilateral 06/18/2023 Procedure: Lumbar medial branch nerve blocks, bilateral lumbar 2-3-4; Surgeon: Jake Navarro DO; Location: Main OR; Service: Pain Management IN NJX DX/THER AGT PVRT FACET JT LMBR/SAC 1 LEVEL Bilateral 07/02/2023 Procedure: Lumbar medial branch nerve blocks, bilateral lumbar 2-3-4; Surgeon: Jake Navarro DO; Location: Main OR; Service: Pain Management SQUAMOUS CELL CARCINOMA EXCISION x4 TOTAL KNEE ARTHROPLASTY Left 2013 dr dolan TUMOR REMOVAL 2012 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 Height: 5' 4 Current weight: 52.3 kg (115 lb 4.8 oz) BMI Body mass index is 19.79 kg/m . Weight hx: 2-4% over past month Wt Readings from Last 10 Encounters: 11/02/24 52.3 kg (115 lb 4.8 oz) 10/31/24 56.2 kg (124 lb) 09/23/24 56.2 kg (124 lb) 07/18/24 55.3 kg (122 lb) 06/06/24 53.1 kg (117 lb) 05/24/24 54 kg (119 lb) 05/12/24 54.4 kg (120 lb) 04/13/24 50.3 kg (111 lb) 04/05/24 54 kg (119 lb) 03/16/24 54 kg (119 lb) Current diet order: Diet: Cardiac Recent intake: 75% of breakfast(11/03) Current intake likely meets estimated needs. Barriers to adequate p.o. intakes: No barriers identified Nutrition Related Allergies/Intolerances: No Nutrition Related Allergies noted Cultural or Presybeterian Dietary Needs :No Cultural or Presybeterian Dietary needs noted Patient/family comments:wants to try strawberry mighty shake Difficulty Chewing or Swallowing: No Skin Integrity: Intact GI Function: WDL(hx Kelly's esophagus Fluid Status: WNL Physical Appearance: Unable to assess at this time Labs: Recent Labs 11/02/24 1252 11/03/24 0424 NA 137 140 K 4.1 4.1 BICARB 23 26 CL 101 104 GLUCOSE 114* 95 BUN 15 11 CREATININE 1.18 1.17 ALBUMIN 4.1 -- Recent Labs 11/02/24 1252 11/03/24 0424 GLUCOSE 114* 95 Lab Results Component Value Date HGBA1C 5.4 10/24/2022 Home Medications Reviewed: Yes Scheduled Meds: atorvastatin 40 mg Oral Nightly cefTRIAXone (ROCEPHIN) IVPB 1,000 mg Intravenous Q24H enoxaparin (LOVENOX) injection 30 mg Subcutaneous Daily furosemide 20 mg Oral Daily lamoTRIgine 300 mg Oral BID losartan 50 mg Oral Daily melatonin 5 mg Oral Nightly methadone 7.5 mg Oral BID pantoprazole 40 mg Oral Daily sodium chloride (PF) 5 mL Intravenous Q8H DIYA Continuous Infusions: Nutrient Depleting Medications: Loop Diuretics Estimated Energy Needs Total Energy Estimated Needs: 1800kcal Method for Estimating Needs: 35kcal/kg Total Protein Estimated Needs: 65gm Method for Estimating Needs: 1.2gm/kg Vasquez Santana RD Spiritual Care Progress Note Completed by: JAMSHID VARGHESE Person(s) Present During this Visit: Patient Not Available Time Spent in Direct Patient Care: 5 Narrative: I attempted to visit the pt., while rounding. Pt sleeping. Patients Response to Pastoral Care: Timing of Visit Not Optimal. Visit Rescheduled Planning for Future Visits: PRN 11/02/24 2200 Visit Background Visit With Patient Not Available Visit By Staff Tow Bar Driver Visit Progression Attempt Visit Requested By Tow Bar Driver Initiated Visit Source Tow Bar Driver Initiated Visit Type Rounding Visit Circumstances and Events Routine Visit Visit Length (minutes) 5 Patient's Response to Pastoral Care Timing of Visit Not Optimal. Visit Rescheduled Visit Planning PRN Spiritual Assessment Unable to Assess during this visit Presybeterian Assessment Unable to Assess during this visit Family assessment provided? Unable to asess during this visit Chaplain Jamshid Varghese MD[address] [address] Office:[phone] Flight Teacher Tow Bar Driver: [phone] documented in this encounter [facility] 11-09-2024 Plan of care note POC reviewed and continued Problem: Falls, Risk of Goal: Absence of falls Outcome: Partially Met Goal: Absence of physical injury Outcome: Partially Met Problem: Pain Goal: Reduced pain sensation Outcome: Partially Met Goal: Control of acute pain to acceptable level Outcome: Partially Met Goal: Able to cope with pain Outcome: Partially Met Goal: Able to achieve maximum level of physical functioning Outcome: Partially Met Goal: Able to achieve maximum level of psychosocial functioning Outcome: Partially Met [facility] 11-09-2024 Miscellaneous Notes POC reviewed and continued Problem: Falls, Risk of Goal: Absence of falls Outcome: Partially Met Goal: Absence of physical injury Outcome: Partially Met Problem: Pain Goal: Reduced pain sensation Outcome: Partially Met Goal: Control of acute pain to acceptable level Outcome: Partially Met Goal: Able to cope with pain Outcome: Partially Met Goal: Able to achieve maximum level of physical functioning Outcome: Partially Met Goal: Able to achieve maximum level of psychosocial functioning Outcome: Partially Met POC initiated POC initiated POC initiated POC reviewed and continue Problem: Actual or potential alteration in health Goal: Absence of healthcare acquired conditions Outcome: Partially Met Goal: Knowledge of Interdisciplinary Plan of Care Outcome: Partially Met Goal: Knowledge of Enviroment Outcome: Partially Met Problem: Falls, Risk of Goal: Absence of falls Outcome: Partially Met Goal: Absence of physical injury Outcome: Partially Met Problem: Pain Goal: Reduced pain sensation Outcome: Partially Met Goal: Control of acute pain to acceptable level Outcome: Partially Met Goal: Able to cope with pain Outcome: Partially Met Goal: Able to achieve maximum level of physical functioning Outcome: Partially Met Goal: Able to achieve maximum level of psychosocial functioning Outcome: Partially Met Problem: Pressure Injury, Risk of Goal: Absence of pressure injury Outcome: Partially Met POC reviewed and continued Problem: Actual or potential alteration in health Goal: Absence of healthcare acquired conditions Outcome: Partially Met Goal: Knowledge of Interdisciplinary Plan of Care Outcome: Partially Met Goal: Knowledge of Enviroment Outcome: Partially Met Problem: Falls, Risk of Goal: Absence of falls Outcome: Partially Met Goal: Absence of physical injury Outcome: Partially Met Problem: Pain Goal: Reduced pain sensation Outcome: Partially Met Goal: Control of acute pain to acceptable level Outcome: Partially Met Goal: Able to cope with pain Outcome: Partially Met Goal: Able to achieve maximum level of physical functioning Outcome: Partially Met Goal: Able to achieve maximum level of psychosocial functioning Outcome: Partially Met Problem: Pressure Injury, Risk of Goal: Absence of pressure injury Outcome: Partially Met [facility] NOTE Contacted by staff regarding insomnia Action taken: Melatonin ordered I did not personally evaluate the patient. Treatment is based on review of chart and discussion with nursing staff and treatment team as necessary. documented in this encounter [facility] 11-09-2024 Note [facility] Patient name: Cat Carroll Date of : 1935 Assessment and plan Cat Carroll is a 89 y.o. female patient of Claudine Majano MD with history of HTN, CAD, GERD, fibromyalgia presented to [facility] on 11/02/2024 with wekness, dizziness and urinary symptoms. Benign positional vertigo Stroke ruled out Nausea CTA on 10/31 at previous ED visit no flow-limiting stenosis, thrombus, dissection, aneurysm, or large vessel occlusion. There are short segment mild to moderate stenoses in the P2 and P3 segments of the ADJUNCT TRAINER on the left. No occlusion or thrombus. No acute intracranial abnormality. No hemorrhage or mass effect. 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 Patient previously prescribed meclizine she has not taken it Brain MRI showed no acute infarction, noted moderate brain atrophy and moderate chronic microvascular changes Was tried on scopolamine and now discontinued. Continue on Reglan and meclizine. PT for vestibular therapy. Consulted neurology. Overall symptoms have improved. UTI H/o recurrent UTIs History of overactive bladder on Gemtesa as a chronic therapy UA findings leukocyte esterase, nitrite, and urine WBCs.. Urine cultures Citrobacter. Status post 5 days of Rocephin. Lasix now on hold can resume at discharge. Hypomagnesemia Magnesium 1.5. Will replace with 2 g magnesium sulfate and repeat magnesium level tomorrow. History of trigeminal neuralgia Continue Lamictal History of hyperlipidemia Continue statin History of Kelly's esophagus Continue Protonix Discharge planning Patient medically ready for discharge: no The patient and/or family has been notified they are expected to be medically stable for discharge on the following date: November 08 Patient requires continued hospitalization due to: symptom improvement Overall medically ready, [facility] denied, now [facility]. Discussed with the patient and/or family that Home is a potential discharge location, understanding that the final plan will depend on the patient's progress and shared decision-making. The following resources have been ordered to assist with discharge barriers: OT Quality measures DVT prophylaxis: lovenox Ghotra catheter: absent Code status DNRCC-Arrest Subjective Denies any dizziness this morning. No fevers overnight. Objective BP 135/67 Pulse 72 Temp 97.9 degrees F (36.6 degrees C) (Oral) Resp 18 Ht 5' 4 Wt 52.3 kg (115 lb 4.8 oz) SpO2 96% BMI 19.79 kg/m General appearance: alert; acutely ill appearing; in mild acute distress HEENT: Head- normocephalic; Eyes- EOMI, sclera anicteric; Throat- mucous membranes dry Cardiovascular: regular rate and rhythm; normal S1, S2; no murmurs, rubs, clicks or gallops; peripheral edema absent Respiratory: lungs clear to auscultation; without wheezes, rales or rhonchi; on room air Abdomen: soft, non-tender, non-distended Neurological: oriented x 3; normal speech; no focal findings or movement disorder noted Musculoskeletal: no significant deformity or tenderness to palpation Skin: normal coloration Psych: Anxious AUTHENTICATED BY PLACIDO SCHROEDER ON 11/09/2024 12:10:19 [facility] 11-08-2024 Consult note Formatting of th is note is different from the original. Occupational Therapy OCCUPATIONAL THERAPY EVALUATION Dx: Dizziness, UTI Skilled Therapy Needs After Discharge Anticipate Resolution of Current Assessment Limitations Including: Mechanical Barriers Are OT Skilled Therapy Services Needed After Discharge: Yes Intensity of OT Skilled Therapy: 5 to 7 days per week Anticipated Duration of OT Skilled Therapy: Duration 10 - 30 days OT DME Recommendation: Wheeled Walker, To be determined at next level of care OT DME Rationale: Patient's condition creates an increased risk of safety hazard without recommended equipment Rehab Potential: Good Outcomes Measures Prior Function Daily Activity Raw Score: 24 Prior Function Daily Activity % Impaired: 0% AM-PAC Daily Activity Raw Score: 21 AM-PAC Daily Activity % Impaired: 32.79% Occupational Therapy Assessment The patient's current functional participation deficits are functional mobility, LE dressing, home management, UE dressing. This reduced independence will limit their life roles of premorbid level individual. The patient's co morbidities do affect patient performance in the above activities and roles. The performance deficits are a result of neurological impairment(s) in generalized debility including strength, balance, acitvity tolerance, and dizziness. The patient's limitations of family / caregiver support is a barrier for return to prior level of function. The patient's compliance is a stator connector, awareness of own capacity and performance is a stator connector to return to prior level of function. During the assessment, minimal to moderate modification of task was required and several treatment options were identified in the plan of care. This consultation required expanded review of the medical and therapy history. Activity Tolerance Activity Tolerance: Tolerates 10 - 20 min activity with multiple rests (On RA, with c/o dizziness with all positonal changes.) Therapy Precautions Orthotic Devices: No Weight Bearing Status: WFL General Rehab Precautions: Fall risk Cognition Arousal/Alertness: Appropriate responses to stimuli Orientation Level: Oriented X4 Executive functioning: WFL Problem Solving: Assistance required to identify errors made, Assistance required to generate solutions, Assistance required to implement solutions Attention: Attends to quiet environment, Attends to distracted environment Hearing Status: WFL Social Interaction: WFL ADL Lower Body Dressing: Stand by assist (Donned fabio. socks using fig-4 while sitting EOB.) Functional Mobility: Minimal assist (2ft using FWW with Min A, politely declined further mobility d/t dizziness.) UE Assessment L hand dominant RUE/LUE ROM: AROM of BUEs WFL Retail Marketing Coordinator strength: Fabio. Grasp WFL Finger opposition: Able to oppose thumbs to all digits on fabio. Hands with visual and tactile cueing. Pt without numbness/tingling in BUEs. Bed Mobility Rolling: Stand by assist, Head of bed elevated Supine to Sit: Stand by assist, Head of bed elevated Sit to Supine: Stand by assist, Head of bed elevated Education Dean: bedrails, bed positioning mechanics Functional Transfers Sit to Stand: Contact guard assist Education Dean: wheeled walker Balance Assessment Sitting Balance (Static): Standby assist, back unsupported Sitting Balance (Dynamic): Contact guard assist, back supported Loss of Balance - Sitting Dynamic: posterior, intermittent Additional Assessment Details Pt supine in bed at end of session, bed alarm on and call light within reach with all needs met. Home Living Obtained Home Living and PLOF info from: Patient Lives With: Alone Type of Home: Trailer/Mobile home Home Layout: One level Steps to enter home: Yes Rails to enter home: 2 rails Number of stairs to enter home: 3 Bathroom Shower/Tub: Walk-in shower Bathroom Toilet: Raised Bathroom Equipment: Bulit-in shower seat, Grab bars around toilet Mobility Equipment: Quad cane, Rollator Prior Level of Function Receives Help From: Aide () Level of [place] - Transfers/Ambulation/Mobility: Independent with functional transfers, Independent with household ambulation (quad or rollator) Level of [place] - ADLs: Independent Level of [place] - Homemaking: Needs assistance (meals on wheels) Driving: Patient drives Vocational: Retired Past Medical History: Diagnosis Date Arthritis 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 [place] classification C2 M3 prior biopsies no dysplasia last biopsies 08/2014 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 Cabrera donna. Dr Hinds BLADDER REPAIR 1989 CATARACT EXT/ECCE Bilateral 2011 Dr ar[place]ula CHOLECYSTECTOMY CYST REMOVAL Right 2000 cyst removal from rt breast-benign DILATION AND CURETTAGE (D AND C) 1970 x 2 EGD 01/01/2015 Dr. ZavalaYinoha-Lqibenchz-Qfqjxzt's esophagus EGD 08/2014 Dr. Vinicius RamachandranW-Sswuanueg-Cytzczg's esophagitis biopsies negative for dysplasia. ESOPHAGOGASTRODUODENOSCOPY 01/04/2018 Dr. Zavala -biopsies performed-Kelly's esophagitis-carcinoid tumor posterior wall duodenum FRACTURE SURGERY Right Plates and screws in rt arm after fracture. dr Dolan [facility] LEFT HEART CATH N/A 08/23/2018 Procedure: Left Heart Cath; Surgeon: Glen Fair MD; Location: [facility]; Service: Cardiovascular HYSTERECTOMY 1975 KIDNEY SURGERY 1969 had exploratory surgery d/t floating kidney Dx KNEE SURGERY Left 1997 left knee arthoscopy LUMPECTOMY Left 1989 benign ORIF HIP GAMMA NAIL Right 04/02/2020 IN DSTR NROLYTC AGNT PARVERTEB FCT ADDL LMBR/SACRAL Bilateral 01/21/2024 Procedure: Lumbar medial branch nerve radiofrequency ablation, bilateral lumbar 1-2-3; Surgeon: Jake Navarro DO; Location: [facility]; Service: Pain Management IN DSTR NROLYTC AGNT PARVERTEB FCT SNGL LMBR/SACRAL Bilateral 01/21/2024 Procedure: Lumbar medial branch nerve radiofrequency ablation, bilateral lumbar 1-2-3; Surgeon: Jake Navarro DO; Location: [facility]; Service: Pain Management IN NJX DX/THER AGT PVRT FACET JT LMBR/SAC 1 LEVEL Bilateral 06/18/2023 Procedure: Lumbar medial branch nerve blocks, bilateral lumbar 2-3-4; Surgeon: Jake Navarro DO; Location: [facility]; Service: Pain Management IN NJX DX/THER AGT PVRT FACET JT LMBR/SAC 1 LEVEL Bilateral 07/02/2023 Procedure: Lumbar medial branch nerve blocks, bilateral lumbar 2-3-4; Surgeon: Jake Navarro DO; Location: [facility]; Service: Pain Management SQUAMOUS CELL CARCINOMA EXCISION x4 TOTAL KNEE ARTHROPLASTY Left 2013 dr dolan TUMOR REMOVAL 2011 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 For complete objective data, detailed plan of care and patient education refer to: OT Evaluation flowsheet, OT Evaluation and Treatment flowsheet, OT Treatment flowsheet, patient Plan of Care, Plan of Care progress note, and Patient Education. This note stands as the current Discharge Summary upon patient discharge from the hospital or completion of Occupational Therapy Plan of Care. [facility] 11-08-2024 Consult note Formatting of th is note is different from the original. Occupational Therapy OCCUPATIONAL THERAPY EVALUATION Dx: Dizziness, UTI Skilled Therapy Needs After Discharge Anticipate Resolution of Current Assessment Limitations Including: Mechanical Barriers Are OT Skilled Therapy Services Needed After Discharge: Yes Intensity of OT Skilled Therapy: 5 to 7 days per week Anticipated Duration of OT Skilled Therapy: Duration 10 - 30 days OT DME Recommendation: Wheeled Walker, To be determined at next level of care OT DME Rationale: Patient's condition creates an increased risk of safety hazard without recommended equipment Rehab Potential: Good Outcomes Measures Prior Function Daily Activity Raw Score: 24 Prior Function Daily Activity % Impaired: 0% AM-PAC Daily Activity Raw Score: 21 AM-PAC Daily Activity % Impaired: 32.79% Occupational Therapy Assessment The patient's current functional participation deficits are functional mobility, LE dressing, home management, UE dressing. This reduced independence will limit their life roles of premorbid level individual. The patient's co morbidities do affect patient performance in the above activities and roles. The performance deficits are a result of neurological impairment(s) in generalized debility including strength, balance, acitvity tolerance, and dizziness. The patient's limitations of family / caregiver support is a barrier for return to prior level of function. The patient's compliance is a stator connector, awareness of own capacity and performance is a stator connector to return to prior level of function. During the assessment, minimal to moderate modification of task was required and several treatment options were identified in the plan of care. This consultation required expanded review of the medical and therapy history. Activity Tolerance Activity Tolerance: Tolerates 10 - 20 min activity with multiple rests (On RA, with c/o dizziness with all positonal changes.) Therapy Precautions Orthotic Devices: No Weight Bearing Status: WFL General Rehab Precautions: Fall risk Cognition Arousal/Alertness: Appropriate responses to stimuli Orientation Level: Oriented X4 Executive functioning: WFL Problem Solving: Assistance required to identify errors made, Assistance required to generate solutions, Assistance required to implement solutions Attention: Attends to quiet environment, Attends to distracted environment Hearing Status: [facility] Social Interaction: WF ADL Lower Body Dressing: Stand by assist (Donned fabio. socks using fig-4 while sitting EOB.) Functional Mobility: Minimal assist (2ft using FWW with Min A, politely declined further mobility d/t dizziness.) UE Assessment L hand dominant RUE/LUE ROM: AROM of BUEs WFL Retail Marketing Coordinator strength: Fabio. Grasp WFL Finger opposition: Able to oppose thumbs to all digits on fabio. Hands with visual and tactile cueing. Pt without numbness/tingling in BUEs. Bed Mobility Rolling: Stand by assist, Head of bed elevated Supine to Sit: Stand by assist, Head of bed elevated Sit to Supine: Stand by assist, Head of bed elevated Education Dean: bedrails, bed positioning mechanics Functional Transfers Sit to Stand: Contact guard assist Education Dean: wheeled walker Balance Assessment Sitting Balance (Static): Standby assist, back unsupported Sitting Balance (Dynamic): Contact guard assist, back supported Loss of Balance - Sitting Dynamic: posterior, intermittent Additional Assessment Details Pt supine in bed at end of session, bed alarm on and call light within reach with all needs met. Home Living Obtained Home Living and PLOF info from: Patient Lives With: Alone Type of Home: Trailer/Mobile home Home Layout: One level Steps to enter home: Yes Rails to enter home: 2 rails Number of stairs to enter home: 3 Bathroom Shower/Tub: Walk-in shower Bathroom Toilet: Raised Bathroom Equipment: Bulit-in shower seat, Grab bars around toilet Mobility Equipment: Quad cane, Rollator Prior Level of Function Receives Help From: Aide () Level of [place] - Transfers/Ambulation/Mobility: Independent with functional transfers, Independent with household ambulation (quad or rollator) Level of [place] - ADLs: Independent Level of [place] - Homemaking: Needs assistance (meals on wheels) Driving: Patient drives Vocational: Retired 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 prior biopsies no dysplasia last biopsies 08/2014 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 Cabrera donna. Dr Hinds BLADDER REPAIR 1989 CATARACT EXT/ECCE Bilateral 2011 Dr ar[place] CHOLECYSTECTOMY CYST REMOVAL Right 1999 cyst removal from rt breast-benign DILATION AND CURETTAGE (D AND C) 1970 x 2 EGD 01/01/2015 Dr. ZavalaLjrdye-Kpoybvifj-Cijirus's esophagus EGD 08/2014 Dr. Vinicius Pruett-Barrett's esophagitis biopsies negative for dysplasia. ESOPHAGOGASTRODUODENOSCOPY 01/04/2018 Dr. Zavala -biopsies performed-Kelly's esophagitis-carcinoid tumor posterior wall duodenum FRACTURE SURGERY Right Plates and screws in rt arm after fracture. dr Dolan LEFT HEART CATH N/A 08/23/2018 Procedure: Left Heart Cath; Surgeon: Glen Fair MD; Location: [facility]; Service: Cardiovascular HYSTERECTOMY 1975 KIDNEY SURGERY 1969 had exploratory surgery d/t floating kidney Dx KNEE SURGERY Left 1997 left knee arthoscopy LUMPECTOMY Left 1989 benign ORIF HIP GAMMA NAIL Right 04/02/2020 IN DSTR NROLYTC AGNT PARVERTEB FCT ADDL LMBR/SACRAL Bilateral 01/21/2024 Procedure: Lumbar medial branch nerve radiofrequency ablation, bilateral lumbar 1-2-3; Surgeon: Jake Navarro DO; Location: Main [facility]; Service: Pain Management IN DSTR NROLYTC AGNT PARVERTEB FCT SNGL LMBR/SACRAL Bilateral 01/21/2024 Procedure: Lumbar medial branch nerve radiofrequency ablation, bilateral lumbar 1-2-3; Surgeon: Jake Navarro DO; Location: Main [facility]; Service: Pain Management IN NJX DX/THER AGT PVRT FACET JT LMBR/SAC 1 LEVEL Bilateral 06/18/2023 Procedure: Lumbar medial branch nerve blocks, bilateral lumbar 2-3-4; Surgeon: Jake Navarro DO; Location: Main OR; Service: Pain Management IN NJX DX/THER AGT PVRT FACET JT LMBR/SAC 1 LEVEL Bilateral 07/02/2023 Procedure: Lumbar medial branch nerve blocks, bilateral lumbar 2-3-4; Surgeon: Jake Navarro DO; Location: Main OR; Service: Pain Management SQUAMOUS CELL CARCINOMA EXCISION x4 TOTAL KNEE ARTHROPLASTY Left 2013 dr dolan TUMOR REMOVAL 2012 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 For complete objective data, detailed plan of care and patient education refer to: OT Evaluation flowsheet, OT Evaluation and Treatment flowsheet, OT Treatment flowsheet, patient Plan of Care, Plan of Care progress note, and Patient Education. This note stands as the current Discharge Summary upon patient discharge from the hospital or completion of Occupational Therapy Plan of Care. 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 Needed After Discharge: Yes 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 Therapy: 5 to 7 days per week PT DME Recommendation: To be determined at next level of care (owns rollator and quad cane) PT DME Rationale: Patient's condition creates an increased risk of safety hazard without recommended equipment Rehab Potential: Good Outcomes Measures Prior Function - Basic Mobility Raw Score: 24 Points Prior Function - Basic Mobility % Impaired: 0% AM-PAC Basic Mobility Raw Score: 17 Points AM-PAC Basic Mobility % Impaired: 43.83% Physical Therapy Assessment History: The following factors influence the patient's participation in the PT plan of care: Personal Factors: Age, Limited Baseline Mobility Environmental Factors: Lives alone, Steps to enter home The following co-morbidities (from this admission or prior) influence the patient's participation in this plan of care: See H&P Number of History elements affecting this patient's PT plan of care: 3 or more Examination of Body Systems: The patient presents with: Musculoskeletal impairments: Pain, Functional Endurance Neurologic Impairments: Balance, Vestibular Function, Hearing, Vision. These impairments result in limitations of Gait, Functional Transfers, Stair-Climbing, Safety, Activity Tolerance. These impairments result in restrictions of Household mobility, Community mobility, Leisure activities. Number of Body Systems elements affecting this patient's PT plan of care: 1 to 2. Clinical Presentation: The patient's clinical presentation for this PT evaluation is evolving with changing characteristics as evidenced by current PT documentation. Activity Tolerance Activity Tolerance: Tolerates 10 - 20 min activity with multiple rests Therapy Precautions Orthotic Devices: No Weight Bearing Status: WFL General Rehab Precautions: Fall risk (KWASI gonzalez) Balance Assessment Sitting Balance - Static: Independent, with back unsupported Sitting Balance - Dynamic: Modified independent, with back unsupported Standing Balance - Static: Contact guard assist, with device Education Dean - Standing Static: quad cane Bed Mobility Supine to Sit: Stand by assist, Head of bed elevated Education Dean: bedrails Transfers Bed to Chair: Contact guard assist Stand Pivot Transfers: Contact guard assist Education Dean: BUE, quad cane Additional Transfer Trial 2: Yes Sit to Stand Trial 2: Contact guard assist Education Dean Trial 2: quad cane, BUE Gait/Locomotion Gait Assistance: (politely declined at this time d/t dizziness) Home Living Obtained Home Living and PLOF info from: Patient Lives With: Alone Type of Home: Trailer/Mobile home Home Layout: One level Steps to enter home: Yes Rails to enter home: 2 rails Number of stairs to enter home: 3 Mobility Equipment: Quad cane, Rollator Prior Level of Function Receives Help From: Aide () Level of [place] - Transfers/Ambulation/Mobility: Independent with functional transfers, Independent with household ambulation (quad or rollator) Level of [place] - ADLs: Independent Level of [place] - Homemaking: Needs assistance (meals on wheels) Driving: Patient drives Vocational: Retired Additional Assessment: Pt in chair at end of session with alarm set Returned ~14:20 to provide handout as well as encourage patient to ambulate to door and back. Pt politely declined d/t fatigue, stated it was a 2 person assist to pivot from chair to bed because she was very fatigued. Handoff given to health and social care teacher Supine 134/64. Seated 124/66 Standing 91/60 After [place] vitals, pt stated typically wears KWASI hose most of the time and they were donned for remaining session PHYSICAL THERAPY TREATMENT NOTE Total Treatment Time (Total Session Time): 35 Minutes Total Timed Code Treatment Minutes: 8 Minutes Additional Treatment Details Pt educated on need for further therapy at [place]. Educated on performing neck ROM HEP. 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 prior biopsies no dysplasia last biopsies 08/2014 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 Rick thompson. Dr Hinds BLADDER REPAIR 1990 CATARACT EXT/ECCE Bilateral 2011 Dr ar[place] CHOLECYSTECTOMY CYST REMOVAL Right 2000 cyst removal from rt breast-benign DILATION AND CURETTAGE (D AND C) 1970 x 2 EGD 01/01/2015 Dr. AlemanAqnjww-Tsdnlpdgl-Glqztpl's esophagus EGD 08/2014 Dr. Vinicius Pruett-Barrett's esophagitis biopsies negative for dysplasia. ESOPHAGOGASTRODUODENOSCOPY 01/04/2018 Dr. Zavala -biopsies performed-Kelly's esophagitis-carcinoid tumor posterior wall duodenum FRACTURE SURGERY Right Plates and screws in rt arm after fracture. dr Dolan [facility] LEFT HEART CATH N/A 08/23/2018 Procedure: Left Heart Cath; Surgeon: Glen Fair MD; Location: [facility]; Service: Cardiovascular HYSTERECTOMY 1974 KIDNEY SURGERY 1969 had exploratory surgery d/t floating kidney Dx KNEE SURGERY Left 1997 left knee arthoscopy LUMPECTOMY Left 1989 benign ORIF HIP GAMMA NAIL Right 04/02/2020 IN DSTR NROLYTC AGNT PARVERTEB FCT ADDL LMBR/SACRAL Bilateral 01/21/2024 Procedure: Lumbar medial branch nerve radiofrequency ablation, bilateral lumbar 1-2-3; Surgeon: Jake Navarro DO; Location: [facility] OR; Service: Pain Management IN DSTR NROLYTC AGNT PARVERTEB FCT SNGL LMBR/SACRAL Bilateral 01/21/2024 Procedure: Lumbar medial branch nerve radiofrequency ablation, bilateral lumbar 1-2-3; Surgeon: Jake Navarro DO; Location: Main OR; Service: Pain Management IN NJX DX/THER AGT PVRT FACET JT LMBR/SAC 1 LEVEL Bilateral 06/18/2023 Procedure: Lumbar medial branch nerve blocks, bilateral lumbar 2-3-4; Surgeon: Jake Navarro DO; Location: Main OR; Service: Pain Management IN NJX DX/THER AGT PVRT FACET JT LMBR/SAC 1 LEVEL Bilateral 07/02/2023 Procedure: Lumbar medial branch nerve blocks, bilateral lumbar 2-3-4; Surgeon: Jake Navarro DO; Location: [facility] OR; Service: Pain Management SQUAMOUS CELL CARCINOMA EXCISION x4 TOTAL KNEE ARTHROPLASTY Left 2013 dr dolan TUMOR REMOVAL 2011 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 For complete objective data, detailed plan of care and patient education refer to: PT Evaluation flowsheet, PT Evaluation and Treatment flowsheet, PT Treatment flowsheet, patient Plan of Care, Plan of Care progress note, and Patient Education. This note stands as the current Discharge Summary upon patient discharge from the hospital or completion of Physical Therapy Plan. Physical Therapy Physical Therapy Vestibular Note Description: Room spinning, lightheadnes at times Duration: 1 week Frequency: intermittent Provoking factors: turning head, standing up Hearing loss: yes, hearing aides not present in hospital. Denies tinnitus Cervical ROM: decreased in all directions, increased sx with left side bending CTA negative for Vertebral artery stenosis pt with diplopia d/t positioning of neck with testing Supine 134/64. Seated 124/66 Standing 91/60 After [place] vitals, pt stated typically wears KWASI hose most of the time and they were donned for remaining session Impressions: PT Vestibular Impressions PT Vestibular Impression: Pt with likely cervicogenic component to dizziness as well as +OH and UTI contributing factors. Will require continued follow up for vestibular dx and treatment Oculomotor Testing: Oculomotor Testing Spontaneous Nystagmus: Test in room light, Not present Smooth Pursuit: Increase symptoms, Saccades present Saccades: (attempted, pt with difficulty following testing (moving head as well as eyes)) VOR Cancellation: Within Normal Limits (WNL) Head Thrust / VOR Fast: (attempted to test, pt unable relax enough to tolerate testing) Skew Eye Deviation: Within Normal Limits (WNL) Positional Testing: Not tested this session For complete Physical Therapy Vestibular assessment, treatment, and education, refer to the Vestibular flowsheet and Plan of Care documenation. This note and corresponding flowsheets stand as the Discharge Summary upon patient discharge from the hospital or completion of the Physical Therapy Plan of Care. Associated Order(s): IP CONSULT TO CARE MANAGEMENT Care Management Consult Note Date: 11/03/2024 Time: 12:39 PM Patient Name: Cat Carroll Date of : 1935 Reason for Consult: Discharge Plan: Plan A: Home Health Care Services Discharging Transportation Plan: Discharge Plan Status: Consult received. Into room to introduce self to patient and explain health and social care teacher role. Patient is from home alone and has 3 steps to get into the house. Patient states she has railings on both sides and does fine with this. Patient uses a walker at home and also has a cane and shower chair. Patient has support from her son and states he would come whenever she asks. Patient states her kids transport her to appointments now since she continues to be dizzy. Patient also can get rides through [employer] and also gets meals on wheels and has someone come on to clean her house. Patient does not remember her renal case manager's name. Patient has Medicare and [place] and states it covers everything needed. PCP is Dr. Majano. Patient is unsure of current discharge needs. [facility] will continue to follow. Assessment and Background Information: Living Arrangements: Alone Caregiver Identified: No Support Systems: Children, Family members, Home care staff, Friends/neighbors Assistance Needed: Yes Type of Residence: Private residence Prior to Admission Home Care Services: Yes Type of Current Home Care Services: Senior options/passport Current Agency Name: Other (Unknown to patient) Does the patient need discharge transport arranged?: No Current Home Equipment: Rollator, Cane, Adaptive equipment, Tub/Shower chair Holistic Assessment Medication adherence problem:: No History of falls in last 6 months:: (!) Yes Family aware of the patient's advance care planning wishes:: Yes Do you have any cultural/spiritual connections or beliefs that would impact how we deliver your care?: No Chronic pain:: (!) Yes Location of chronic pain:: low back pain Chronic pain timing:: Intermittent Chronic pain severity:: 4 Limitation of routine activities due to chronic pain:: Yes Associated Order(s): IP CONSULT TO NEUROLOGY Neurology Inpatient Consult [facility] Date of Service: 11/03/24 Admit Date: 11/02/2024 Service Type: New Patient Consultation Patient: Cat Carroll Date of : 1935 (89 y.o.) Referring Provider: Refer to consult order in electronic medical record Assessment ASSESSMENT: Cat Carroll is a 89 y.o. female who presented to [facility] on 11/02/2024 with dizziness; neurology consulted for the same. Patient known to me with history of trigeminal neuralgia. She has a history of dizziness even prior which made medications challenging; lamotrigine has been the only tolerable/effective approach so far. Presents with generalized weakness, instability, nausea, dysuria, urinary frequency, anorexia. History of recurrent UTI. Urine culture pending but UA positive for nitrites and leukocyte esterase with 11 WBCs (while not the most impressive, this is a change from the negative UA from 10/27). MRI negative. Dizziness is likely multifactorial. The acute trigger is probably UTI, with contributions from her medications (lamotrigine and methadone both can cause dizziness) and known spinal stenosis also playing a role with regards to her balance. She also has chronic BPPV which is contributing. As mentioned, she had chronic dizziness even before starting either of those meds, so they are not the main problem. I will adjust her lamotrigine dose as the level is a little high. Can cut down to 250mg BID; may need a new script for 25mg tabs outpatient (200mg + 2 x 25mg tabs for total 250mg). She would probably benefit from physical therapy as she is fairly deconditioned. Diagnoses: Generalized weakness and imbalance, multifactorial Trigeminal neuralgia Lumbar spinal stenosis Admitted with these risk variables:None. Please see assessment and plan for further details. PLAN: - decrease lamotrigine to 250mg BID - PT/OT - vestibular rehab after discharge - continue home atorvastatin - meclizine PRN, watch for delirium (can cause confusion in elderly patients) - Zofran PRN for nausea - follow up urine cultures - will follow along Rocael Mcleod MD Staff Neurologist [facility] [address] [id number], [facility] [id number] [facility] 11/03/24 Parts of this note may have been dictated using Numerate, a speech-recognition software. Syntax errors and sound-alike substitutions which may escape proofreading could be present. In such instances, the actual meaning can be extrapolated from the context. Subjective SUBJECTIVE: Chief Complaint/Reason for Consult: dizziness History of Present Illness: Cat Carroll is a 89 y.o. female who presented on 11/02/2024 for dizziness and other symptoms. Neurology is consulted for the same. Patient known to me for trigeminal neuralgia, managed on lamotrigine. She has chronic dizziness since before I met her which made medication choice challenging (lamotrigine was really my last option anyway so it's good that it worked). Presents with worsening dizziness but also nausea, vomiting, blurry vision, generalized weakness, dysuria, increased urinary frequency, urinary incontinence, for at least a week. UA suggestive of UTI. TN pain is controlled now, no issues there. Review of systems: All systems were reviewed and found to be negative except for those mentioned in the HPI. 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 She has a past surgical history that includes Egd (01/01/2015); Egd (08/2014); Dilatation And Curettage (D And C) (1969); Hysterectomy (1974); Cholecystectomy; Kidney surgery (1968); Bladder repair (1989); Lumpectomy (Left, 1989); Cyst Removal (Right, 1999); Knee surgery (Left, 1997); Squamous cell carcinoma excision; Fracture surgery (Right); Cataract Ext/Ecce (Bilateral, 2011); Total knee arthroplasty (Left, 2012); Back surgery (2013); Tumor removal (2011); Esophagogastroduodenoscopy (01/04/2018); hc left heart cath (N/A, 08/23/2018); Orif Hip Gamma Nail (Right, 04/02/2020); pr njx dx/ther agt pvrt facet jt lmbr/sac 1 level (Bilateral, 06/18/2023); pr njx dx/ther agt pvrt facet jt lmbr/sac 1 level (Bilateral, 07/02/2023); pr dstr nrolytc agnt parverteb fct sngl lmbr/sacral (Bilateral, 01/21/2024); and pr dstr nrolytc agnt parverteb fct addl lmbr/sacral (Bilateral, 01/21/2024). She family history includes Bipolar disorder in her daughter; Dementia in her sister; Diabetes in her brother, maternal uncle, mother, sister, and son; Heart disease in her brother, father, and mother; Stroke in her father. She reports that she quit smoking about 48 years ago. Her smoking use included cigarettes. She has never been exposed to tobacco smoke. She has never used smokeless tobacco. She reports that she does not drink alcohol and does not use drugs. Allergies: Allergies: Aspirin; Codeine; Diphenhydramine; Gabapentin; Latex, natural rubber; Adhesive tape-silicones; Bacitracin; Bacitracin zinc-polymyxin b; Carbamazepine; Hydrocortisone; Lidocaine; Neomycin; and Hvyjqiqj-jnccqcirwrv-gsjcfeork MEDICATIONS: WERE REVIEWED AND CHECKED FOR ALLERGIES AND INTERACTIONS (IN EMR). Objective OBJECTIVE: Physical Examination: BP (!) 112/55 Pulse 70 Temp 97.9 F (36.6 C) (Oral) Resp 16 Ht 5' 4 Wt 52.3 kg (115 lb 4.8 oz) SpO2 96% BMI 19.79 kg/m GENERAL: General Appearance: Resting comfortably in bed in NAD HEENT: Normocephalic. No conjunctival injection. Ears appear normal. No substantial sinus drainage. See below for vision/hearing Neck: Supple, no focal bony tenderness, no mass lesions Respiratory Effort: Normal Extremities: No edema Skin: No rashes visualized on limited skin exam MSK: No joint deformities Neurological examination: MENTAL STATUS: MENTAL STATUS: Alertness, Attention Span & Concentration: while she doesn't seem like the best historian, she is awake, alert, attentive. She made a single error when counting months backward and did serial 7s normally. Language: Normal Speech: Normal Orientation: Oriented to person, place, time/date, and situation Memory, Recent & Remote: 2/3 recall at 5 minutes. Fund of Knowledge: Normal CRANIAL NERVES: II - Visual Leos: Normal II, III: Pupils: PERRL, no RAPD III, IV, : Eye Movements: few beats of end-gaze nystagmus with lateral gaze to either side + Rey-Hallpike but curiously in both directions V - Facial Sensation: slightly more sensitive on the left face than the right. VII: Face Symmetry & Strength: Normal VIII - Hearing: Normal to finger rub bilaterally IX, X - Palate: Normal, elevates symmetrically XI - Shoulder Shrug: Normal XII - Tongue Protrusion: Normal, symmetric MOTOR: Muscle Strength Right Left 5 Shoulder Abduction (Deltoid) 5 5 Elbow Flexion (Biceps) 5 5 Elbow Extension (Triceps) 5 5 Wrist Flexion 5 5 Wrist Extension 5 5 Finger Abduction (Interossei) 5 Right Left 4 Hip Extension 4 4 Hip Flexion (Iliopsoas) 4 5 Knee Extension (Quads) 5 5 Knee Flexion (Hamstrings) 5 5 Dorsiflexion (Anterior Tibialis) 5 5 Plantar Flexion (Gastrocnemius) 5 MOTOR AVILA: 5 Normal (Normal Power) 4 Mild Weakness (Movement against moderate resistance over a full range of motion) 3 Moderate Weakness (Movement against gravity only over almost full range of motion) 2 Severe Weakness (Movement with gravity eliminated over almost full range of motion) 1 Trace Movement (Contraction visible or palpable without effective movement of the joint) 0 No Movement (No contraction visible or palpable) MARGUERITE Unable to Assess Normal Bulk and Tone, no atrophy. Hips limited by back pain. SENSATION: Fine Touch: Normal Pinprick: Normal REFLEXES: Right Reflexes Left 2+ Biceps 2+ 2+ Triceps 2+ 2+ Brachioradialis 2+ 1+ Patellar 1+ 1+ Achilles 1+ Down Plantar Response (Babinski) Down REFLEXES AVILA: 4+ Sustained Clonus 3+ Brisk 2+ Normal 1+ Diminished 0 Absent MARGUERITE Unable to Assess COORDINATION: Coordination Yvhend-td-Rngp: Mild intention tremor bilaterally and mild dysmetria, R>L Cabrera Finger taps: normal Coordination Slji-Smjs-Pswz: normal Diadochokinesis: normal STANCE AND GAIT: Base/Stance: Normal/ narrow base Gait: A little unsteady. Mix of what seems to be mild ataxia as well as antalgia, stiffness at low back/hips. Deconditioned. Slow, cautious steps Gait Aid Used During Exam: None Gait Assistance Required During Exam: moderate MOVEMENT DISORDERS EXAMINATION: Tremor - no tremors noted other than mild intention tremors. Bradykinesia - None Rigidity - None Dyskinesia/Choreoathetosis - None Dystonia/Myoclonus/Tics - None DIAGNOSTIC TESTING SUMMARY: Pending Lab and Radiology Results Order Current Status Urine Aerobic Culture In process MR Brain Without Contrast Preliminary result Resulted Testing: (MRI/CT/XR, EEG, EMG, CSF, Cardiac, Labs) MRI brain w/o: no acute infarct. Moderate atrophy, mild microvascular ischemic disease changes. CTA head/neck: no LVO, aneurysm, etc. Mild to moderate stenosis in distal left ADJUNCT TRAINER, probably incidental. CBC unremarkable. CMP with Cr 1.2, otherwise WNL (baseline). UA + nitrite, +LE, 11 WBCs, rare bacteria. Attestation: Discussed risks, benefits and alternatives regarding plan with patient/family/caregivers and answered the questions. I independently reviewed radiology images and summarized in this note with annotations and screenshots wherever appropriate. Time statement: A total of 81 minutes were spent on this encounter either in the patient's room or on the patient's hospital unit and over 50% of that time was spent on [id number]-xf-dzyp counseling and/or coordination of care. This includes discussions with patient/family as well as with consulting care providers, regarding clinical course, prognosis, treatment alternatives, expected outcomes of medications and their side effects. documented in this encounter [facility] 11-08-2024 Note HMS PROGRESS NOTE Patient name: Cat Carroll Date of : 1935 Assessment and plan Cat Carroll is a 89 y.o. female patient of Claudine Majano MD with history of HTN, CAD, GERD, fibromyalgia presented to [facility] on 11/02/2024 with wekness, dizziness and urinary symptoms. Benign positional vertigo Stroke ruled out Nausea CTA on 10/31 at previous ED visit no flow-limiting stenosis, thrombus, dissection, aneurysm, or large vessel occlusion. There are short segment mild to moderate stenoses in the P2 and P3 segments of the ADJUNCT TRAINER on the left. No occlusion or thrombus. No acute intracranial abnormality. No hemorrhage or mass effect. 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 Patient previously prescribed meclizine she has not taken it Brain MRI showed no acute infarction, noted moderate brain atrophy and moderate chronic microvascular changes On meclizine to 25 mg 3 times daily Add Reglan scheduled given ongoing nausea despite scopolamine patch Referral for outpatient vestibular therapy OT consult for vestibular therapy Seen by neurology Joshua as needed Scopolamine patch given ongoing symptoms Patient still have ongoing symptoms, she will need vestibular therapy as inpatient to help with symptoms, still complaining of nystagmus and vertigo Awaiting transfer to TCU UTI H/o recurrent UTIs History of overactive bladder on Gemtesa as a chronic therapy UA findings leukocyte esterase, nitrite, and urine WBCs.. Urine cultures Citrobacter. Continue ceftriaxone, total duration of 5 days, end date placed S/p IV hydration, hold Lasix History of trigeminal neuralgia Continue Lamictal History of hyperlipidemia Continue statin History of Kelly's esophagus Continue Protonix Discharge planning Patient medically ready for discharge: no The patient and/or family has been notified they are expected to be medically stable for discharge on the following date: November 08 Patient requires continued hospitalization due to: symptom improvement Discussed with the patient and/or family that Home is a potential discharge location, understanding that the final plan will depend on the patient's progress and shared decision-making. The following resources have been ordered to assist with discharge barriers: OT Quality measures DVT prophylaxis: lovenox Ghotra catheter: absent Code status DNRCC-Arrest Subjective Feeling okay she states she does not get the dizziness if she lies still but vertigo happen every time she moves her head Objective BP (!) 144/73 (BP Location: Left arm, Patient Position: Sitting) Pulse 71 Temp 97.7 degrees F (36.5 degrees C) (Oral) Resp 16 Ht 5' 4 Wt 52.3 kg (115 lb 4.8 oz) SpO2 96% BMI 19.79 kg/m General appearance: alert; acutely ill appearing; in mild acute distress HEENT: Head- normocephalic; Eyes- EOMI, sclera anicteric; Throat- mucous membranes dry Cardiovascular: regular rate and rhythm; normal S1, S2; no murmurs, rubs, clicks or gallops; peripheral edema absent Respiratory: lungs clear to auscultation; without wheezes, rales or rhonchi; on room air Abdomen: soft, non-tender, non-distended Neurological: oriented x 3; normal speech; no focal findings or movement disorder noted Musculoskeletal: no significant deformity or tenderness to palpation Skin: normal coloration Psych: Anxious AUTHENTICATED BY JERSEY BUSH ON 11/08/2024 11:26:04 [facility] 11-08-2024 Plan of care note POC initiated [facility] 11-07-2024 Note HMS PROGRESS NOTE Patient name: Cat Carroll Date of : 1935 Assessment and plan Cat Carroll is a 89 y.o. female patient of Claudine Majano MD with history of HTN, CAD, GERD, fibromyalgia presented to [facility] on 11/02/2024 with wekness, dizziness and urinary symptoms. Benign positional vertigo Stroke ruled out Nausea CTA on 10/31 at previous ED visit no flow-limiting stenosis, thrombus, dissection, aneurysm, or large vessel occlusion. There are short segment mild to moderate stenoses in the P2 and P3 segments of the ADJUNCT TRAINER on the left. No occlusion or thrombus. No acute intracranial abnormality. No hemorrhage or mass effect. 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 Patient previously prescribed meclizine she has not taken it Brain MRI showed no acute infarction, noted moderate brain atrophy and moderate chronic microvascular changes Increase meclizine to 25 mg 3 times daily Add Reglan scheduled given ongoing nausea despite scopolamine patch Referral for outpatient vestibular therapy OT consult for vestibular therapy Seen by neurology Joshua as needed Scopolamine patch given ongoing symptoms Patient still have ongoing symptoms, she will need vestibular therapy as inpatient to help with symptoms, still complaining of nystagmus and vertigo UTI H/o recurrent UTIs History of overactive bladder on Gemtesa as a chronic therapy UA findings leukocyte esterase, nitrite, and urine WBCs.. Urine cultures Citrobacter. Continue ceftriaxone, total duration of 5 days, end date placed IV hydration, hold Lasix History of trigeminal neuralgia Continue Lamictal History of hyperlipidemia Continue statin History of Kelly's esophagus Continue Protonix Discharge planning Patient medically ready for discharge: no The patient and/or family has been notified they are expected to be medically stable for discharge on the following date: November 08 Patient requires continued hospitalization due to: symptom improvement Discussed with the patient and/or family that Home is a potential discharge location, understanding that the final plan will depend on the patient's progress and shared decision-making. The following resources have been ordered to assist with discharge barriers: OT Quality measures DVT prophylaxis: lovenox Ghotra catheter: absent Code status DNRCC-Arrest Subjective Blurry vision Dizziness Nausea resolved Objective BP 121/68 Pulse 78 Temp 97.7 degrees F (36.5 degrees C) (Oral) Resp 16 Ht 5' 4 Wt 52.3 kg (115 lb 4.8 oz) SpO2 98% BMI 19.79 kg/m General appearance: alert; acutely ill appearing; in mild acute distress HEENT: Head- normocephalic; Eyes- EOMI, sclera anicteric; Throat- mucous membranes dry Cardiovascular: regular rate and rhythm; normal S1, S2; no murmurs, rubs, clicks or gallops; peripheral edema absent Respiratory: lungs clear to auscultation; without wheezes, rales or rhonchi; on room air Abdomen: soft, non-tender, non-distended Neurological: oriented x 3; normal speech; no focal findings or movement disorder noted Musculoskeletal: no significant deformity or tenderness to palpation Skin: normal coloration Psych: Anxious AUTHENTICATED BY TAMRA DEWEY ON 11/07/2024 14:02:36 [facility] 11-07-2024 Plan of care note POC initiated [facility] 11-06-2024 Note HMS PROGRESS NOTE Patient name: Cat Carroll Date of : 1935 Assessment and plan Cat Carroll is a 89 y.o. female patient of Claudine Majano MD with history of HTN, CAD, GERD, fibromyalgia presented to [facility] on 11/02/2024 with wekness, dizziness and urinary symptoms. Benign positional vertigo Stroke ruled out Nausea CTA on 8/25 at previous ED visit no flow-limiting stenosis, thrombus, dissection, aneurysm, or large vessel occlusion. There are short segment mild to moderate stenoses in the P2 and P3 segments of the ADJUNCT TRAINER on the left. No occlusion or thrombus. No acute intracranial abnormality. No hemorrhage or mass effect. 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 Patient previously prescribed meclizine she has not taken it Brain MRI showed no acute infarction, noted moderate brain atrophy and moderate chronic microvascular changes Increase meclizine to 25 mg 3 times daily Add Reglan scheduled given ongoing nausea despite scopolamine patch Referral for outpatient vestibular therapy OT consult for vestibular therapy Seen by neurology Joshua as needed Scopolamine patch given ongoing symptoms UTI H/o recurrent UTIs History of overactive bladder on Gemtesa as a chronic therapy UA findings leukocyte esterase, nitrite, and urine WBCs.. Urine cultures Citrobacter. Continue ceftriaxone, total duration of 5 days, end date placed IV hydration, hold Lasix History of trigeminal neuralgia Continue Lamictal History of hyperlipidemia Continue statin History of Kelly's esophagus Continue Protonix Discharge planning Patient medically ready for discharge: no The patient and/or family has been notified they are expected to be medically stable for discharge on the following date: November 08 Patient requires continued hospitalization due to: symptom improvement Discussed with the patient and/or family that Home is a potential discharge location, understanding that the final plan will depend on the patient's progress and shared decision-making. The following resources have been ordered to assist with discharge barriers: OT Quality measures DVT prophylaxis: lovenox Ghotra catheter: absent Code status DNRCC-Arrest Subjective vertigo, dizziness Nausea Objective BP 122/66 Pulse 72 Temp 98.1 degrees F (36.7 degrees C) (Oral) Resp 16 Ht 5' 4 Wt 52.3 kg (115 lb 4.8 oz) SpO2 93% BMI 19.79 kg/m General appearance: alert; acutely ill appearing; in mild acute distress HEENT: Head- normocephalic; Eyes- EOMI, sclera anicteric; Throat- mucous membranes dry Cardiovascular: regular rate and rhythm; normal S1, S2; no murmurs, rubs, clicks or gallops; peripheral edema absent Respiratory: lungs clear to auscultation; without wheezes, rales or rhonchi; on room air Abdomen: soft, non-tender, non-distended Neurological: oriented x 3; normal speech; no focal findings or movement disorder noted Musculoskeletal: no significant deformity or tenderness to palpation Skin: normal coloration Psych: Anxious AUTHENTICATED BY TAMRA DEWEY, ON 11/06/2024 11:59:31 [facility] 11-06-2024 Plan of care note POC initiated [facility] 11-05-2024 Plan of care note POC reviewed and continue Problem: Actual or potential alteration in health Goal: Absence of healthcare acquired conditions Outcome: Partially Met Goal: Knowledge of Interdisciplinary Plan of Care Outcome: Partially Met Goal: Knowledge of Enviroment Outcome: Partially Met Problem: Falls, Risk of Goal: Absence of falls Outcome: Partially Met Goal: Absence of physical injury Outcome: Partially Met Problem: Pain Goal: Reduced pain sensation Outcome: Partially Met Goal: Control of acute pain to acceptable level Outcome: Partially Met Goal: Able to cope with pain Outcome: Partially Met Goal: Able to achieve maximum level of physical functioning Outcome: Partially Met Goal: Able to achieve maximum level of psychosocial functioning Outcome: Partially Met Problem: Pressure Injury, Risk of Goal: Absence of pressure injury Outcome: Partially Met [facility] 11-05-2024 Note HMS PROGRESS NOTE Patient name: Cat Carroll Date of : 1935 Assessment and plan Cat Carroll is a 89 y.o. female patient of Claudine Majano MD with history of HTN, CAD, GERD, fibromyalgia presented to [facility] on 11/02/2024 with wekness, dizziness and urinary symptoms. Benign positional vertigo Stroke ruled out Nausea CTA on 10/31 at previous ED visit no flow-limiting stenosis, thrombus, dissection, aneurysm, or large vessel occlusion. There are short segment mild to moderate stenoses in the P2 and P3 segments of the ADJUNCT TRAINER on the left. No occlusion or thrombus. No acute intracranial abnormality. No hemorrhage or mass effect. 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 Patient previously prescribed meclizine she has not taken it Brain MRI showed no acute infarction, noted moderate brain atrophy and moderate chronic microvascular changes Change meclizine to 3 times daily 12.5 mg 3 times daily Referral for outpatient vestibular therapy OT consult for vestibular therapy Seen by neurology Joshua as needed Scopolamine patch given ongoing symptoms UTI H/o recurrent UTIs History of overactive bladder on Gemtesa as a chronic therapy UA findings leukocyte esterase, nitrite, and urine WBCs.. Urine cultures Citrobacter. Continue ceftriaxone IV hydration, hold Lasix History of trigeminal neuralgia Continue Lamictal History of hyperlipidemia Continue statin History of Kelly's esophagus Continue Protonix Discharge planning Patient medically ready for discharge: no The patient and/or family has been notified they are expected to be medically stable for discharge on the following date: tomorrow (11/06/2024) Patient requires continued hospitalization due to: symptom improvement Discussed with the patient and/or family that Home is a potential discharge location, understanding that the final plan will depend on the patient's progress and shared decision-making. The following resources have been ordered to assist with discharge barriers: OT Quality measures DVT prophylaxis: lovenox Ghotra catheter: absent Code status DNRCC-Arrest Subjective Dizziness improving, nausea resolved Objective BP 129/63 (BP Location: Left arm, Patient Position: Lying) Pulse 77 Temp 98.4 degrees F (36.9 degrees C) (Oral) Resp 16 Ht 5' 4 Wt 52.3 kg (115 lb 4.8 oz) SpO2 96% BMI 19.79 kg/m General appearance: alert; acutely ill appearing; in mild acute distress HEENT: Head- normocephalic; Eyes- EOMI, sclera anicteric; Throat- mucous membranes dry Cardiovascular: regular rate and rhythm; normal S1, S2; no murmurs, rubs, clicks or gallops; peripheral edema absent Respiratory: lungs clear to auscultation; without wheezes, rales or rhonchi; on room air Abdomen: soft, non-tender, non-distended Neurological: oriented x 3; normal speech; no focal findings or movement disorder noted Musculoskeletal: no significant deformity or tenderness to palpation Skin: normal coloration Psych: Anxious AUTHENTICATED BY TAMRA DEWEY, ON 11/05/2024 13:07:57 [facility] 11-04-2024 Note Neurology Follow Up Note [facility] Date of Service: 11/04/24 Service Type: Follow up, neurology Patient: Cat Carroll Date of : 1935 (89 y.o.) Assessment ASSESSMENT: Cat Carroll is a 89 y.o. female who presented to [facility] on 11/02/2024 with dizziness; neurology consulted for the same. Patient known to me with history of trigeminal neuralgia. She has a history of dizziness even prior to that diagnosis, which made medications challenging; lamotrigine has been the only tolerable/effective approach so far. Presents with generalized weakness, instability, nausea, dysuria, urinary frequency, anorexia. History of recurrent UTI. Urine culture with over 100,000 CFU of gram-negative bacilli. MRI negative. Dizziness is likely multifactorial. The acute trigger is probably UTI, with contributions from her medications (lamotrigine and methadone both can cause dizziness) and known spinal stenosis also playing a role with regards to her balance. She also has chronic BPPV which is contributing. As mentioned, she had chronic dizziness even before starting either of those meds, so they are not the main problem. I will adjust her lamotrigine dose as the level is a little high. Can cut down to 250mg BID; may need a new script for 25mg tabs outpatient (200mg + 2 x 25mg tabs for total 250mg). She would probably benefit from vestibular therapy. Diagnoses: Generalized weakness and imbalance, multifactorial Trigeminal neuralgia Lumbar spinal stenosis Admitted with these risk variables:None. Please see assessment and plan for further details. PLAN: - Continue lamotrigine at new dose of 250mg BID - PT/OT - vestibular rehab after discharge - continue home atorvastatin - meclizine PRN, scopolamine patch added today - Zofran PRN for nausea -Once feeling stable enough to go home, can discharge and work with vestibular therapy - Will follow-up with me outpatient for trigeminal neuralgia - neurology will sign off at this time. However, please do not hesitate to contact us with any questions, concerns, or changes in exam. Rocael Mcleod MD Staff Neurologist [facility] [address], [facility] [id number] Clinic 11/04/24 Parts of this note may have been dictated using Numerate, a speech-recognition software. Syntax errors and sound-alike substitutions which may escape proofreading could be present. In such instances, the actual meaning can be extrapolated from the context. Subjective SUBJECTIVE: Chief Complaint/Reason for Consult: dizziness History of Present Illness: Cat Carroll is a 89 y.o. female who presented on 11/02/2024 for dizziness and other symptoms. Neurology is consulted for the same. Patient known to me for trigeminal neuralgia, managed on lamotrigine. She has chronic dizziness since before I met her which made medication choice challenging (lamotrigine was really my last option anyway so it's good that it worked). Presents with worsening dizziness but also nausea, vomiting, blurry vision, generalized weakness, dysuria, increased urinary frequency, urinary incontinence, for at least a week. UA suggestive of UTI. TN pain is controlled now, no issues there. Interval history 11/04/24: Still feels dizzy today. She is sitting in the chair, says it feels like both she and the world are spinning. She has not been eating much. Not been drinking much. No pain though. Review of systems: All systems were reviewed and found to be negative except for those mentioned in the HPI. 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 She has a past surgical history that includes Egd (01/01/2015); Egd (08/2014); Dilatation And Curettage (D And C) (1969); Hysterectomy (1974); Cholecystectomy; Kidney surgery (1968); Bladder repair (1989); Lumpectomy (Left, 1989); Cyst Removal (Right, 1999); Knee surgery (Left, 1997); Squamous cell carcinoma excision; Fracture surgery (Right); Cataract Ext/Ecce (Bilateral, 2011); Total knee arthroplasty (Left, 2012); Back surgery (2013); Tumor removal (2011); Esophagogastroduodenoscopy (01/04/2018); hc left heart cath (N/A, 08/23/2018); Orif Hip Gamma Nail (Right, 04/02/2020); pr (more content not included)... [facility] 11-04-2024 Note [facility] [place] Patient name: Cat Carroll Date of : 1935 Assessment and plan Cat Carroll is a 89 y.o. female patient of Claudine Majano MD with history of HTN, CAD, GERD, fibromyalgia presented to [facility] on 11/02/2024 with wekness, dizziness and urinary symptoms. Benign positional vertigo Stroke ruled out Nausea CTA on 10/31 at previous ED visit no flow-limiting stenosis, thrombus, dissection, aneurysm, or large vessel occlusion. There are short segment mild to moderate stenoses in the P2 and P3 segments of the ADJUNCT TRAINER on the left. No occlusion or thrombus. No acute intracranial abnormality. No hemorrhage or mass effect. 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 Patient previously prescribed meclizine she has not taken it Brain MRI showed no acute infarction, noted moderate brain atrophy and moderate chronic microvascular changes Added meclizine Referral for outpatient vestibular therapy OT consult for vestibular therapy Seen by neurology Ritufran as needed Scopolamine patch given ongoing symptoms UTI H/o recurrent UTIs History of overactive bladder on Gemtesa as a chronic therapy UA findings leukocyte esterase, nitrite, and urine WBCs.. Urine cultures enteric gram-negative, follow-up Continue ceftriaxone IV hydration, hold Lasix History of trigeminal neuralgia Continue Lamictal History of hyperlipidemia Continue statin History of Kelly's esophagus Continue Protonix Discharge planning Patient medically ready for discharge: no The patient and/or family has been notified they are expected to be medically stable for discharge on the following date: tomorrow (11/05/2024) Patient requires continued hospitalization due to: symptom improvement Discussed with the patient and/or family that Home is a potential discharge location, understanding that the final plan will depend on the patient's progress and shared decision-making. The following resources have been ordered to assist with discharge barriers: OT Quality measures DVT prophylaxis: lovenox Ghotra catheter: absent Code status DNRCC-Arrest Subjective Dizziness, feeling nauseous, without vomiting Objective BP (!) 112/57 Pulse 79 Temp 97.7 degrees F (36.5 degrees C) (Oral) Resp 16 Ht 5' 4 Wt 52.3 kg (115 lb 4.8 oz) SpO2 98% BMI 19.79 kg/m General appearance: alert; acutely ill appearing; in mild acute distress HEENT: Head- normocephalic; Eyes- EOMI, sclera anicteric; Throat- mucous membranes dry Cardiovascular: regular rate and rhythm; normal S1, S2; no murmurs, rubs, clicks or gallops; peripheral edema absent Respiratory: lungs clear to auscultation; without wheezes, rales or rhonchi; on room air Abdomen: soft, non-tender, non-distended Neurological: oriented x 3; normal speech; no focal findings or movement disorder noted Musculoskeletal: no significant deformity or tenderness to palpation Skin: normal coloration Psych: Anxious AUTHENTICATED BY TAMRA DEWEY, ON 11/04/2024 13:49:36 [facility] 11-04-2024 Consult note Formatting of th is note is different from the original. 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 Needed After Discharge: Yes 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 Therapy: 5 to 7 days per week PT DME Recommendation: To be determined at next level of care (owns rollator and quad cane) PT DME Rationale: Patient's condition creates an increased risk of safety hazard without recommended equipment Rehab Potential: Good Outcomes Measures Prior Function - Basic Mobility Raw Score: 24 Points Prior Function - Basic Mobility % Impaired: 0% AM-PAC Basic Mobility Raw Score: 17 Points AM-PAC Basic Mobility % Impaired: 43.83% Physical Therapy Assessment History: The following factors influence the patient's participation in the PT plan of care: Personal Factors: Age, Limited Baseline Mobility Environmental Factors: Lives alone, Steps to enter home The following co-morbidities (from this admission or prior) influence the patient's participation in this plan of care: See H&P Number of History elements affecting this patient's PT plan of care: 3 or more Examination of Body Systems: The patient presents with: Musculoskeletal impairments: Pain, Functional Endurance Neurologic Impairments: Balance, Vestibular Function, Hearing, Vision. These impairments result in limitations of Gait, Functional Transfers, Stair-Climbing, Safety, Activity Tolerance. These impairments result in restrictions of Household mobility, Community mobility, Leisure activities. Number of Body Systems elements affecting this patient's PT plan of care: 1 to 2. Clinical Presentation: The patient's clinical presentation for this PT evaluation is evolving with changing characteristics as evidenced by current PT documentation. Activity Tolerance Activity Tolerance: Tolerates 10 - 20 min activity with multiple rests Therapy Precautions Orthotic Devices: No Weight Bearing Status: WFL General Rehab Precautions: Fall risk (KWASI gonzalez) Balance Assessment Sitting Balance - Static: Independent, with back unsupported Sitting Balance - Dynamic: Modified independent, with back unsupported Standing Balance - Static: Contact guard assist, with device Education Dean - Standing Static: quad cane Bed Mobility Supine to Sit: Stand by assist, Head of bed elevated Education Dean: bedrails Transfers Bed to Chair: Contact guard assist Stand Pivot Transfers: Contact guard assist Education Dean: BUE, quad cane Additional Transfer Trial 2: Yes Sit to Stand Trial 2: Contact guard assist Education Dean Trial 2: quad cane, BUE Gait/Locomotion Gait Assistance: (politely declined at this time d/t dizziness) Home Living Obtained Home Living and PLOF info from: Patient Lives With: Alone Type of Home: Trailer/Mobile home Home Layout: One level Steps to enter home: Yes Rails to enter home: 2 rails Number of stairs to enter home: 3 Mobility Equipment: Quad cane, Rollator Prior Level of Function Receives Help From: Aide () Level of [place] - Transfers/Ambulation/Mobility: Independent with functional transfers, Independent with household ambulation (quad or rollator) Level of [place] - ADLs: Independent Level of [place] - Homemaking: Needs assistance (meals on wheels) Driving: Patient drives Vocational: Retired Additional Assessment: Pt in chair at end of session with alarm set Returned ~14:20 to provide handout as well as encourage patient to ambulate to door and back. Pt politely declined d/t fatigue, stated it was a 2 person assist to pivot from chair to bed because she was very fatigued. Handoff given to health and social care teacher Supine 134/64. Seated 124/66 Standing 91/60 After OH vitals, pt stated typically wears KWASI hose most of the time and they were donned for remaining session PHYSICAL THERAPY TREATMENT NOTE Total Treatment Time (Total Session Time): 35 Minutes Total Timed Code Treatment Minutes: 8 Minutes Additional Treatment Details Pt educated on need for further therapy at [place]. Educated on performing neck ROM HEP. Pt educated on mobilizing with staff over the weekend Access Code: [email or web address] URL: [email or web address] Date: 11/04/2024 Prepared by: Farzaneh Arango PT demonstrating several reps each exercise for pt Exercises - Seated Cervical Rotation AROM - 1 x daily - 7 x weekly - 2 sets - 10 reps - Seated Cervical Flexion AROM - 1 x daily - 7 x weekly - 2 sets - 10 reps - Seated Scapular Retraction - 1 x daily - 7 x weekly - 2 sets - 10 reps - Seated Cervical Sidebending AROM - 1 x daily - 7 x weekly - 2 sets - 10 reps 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 prior biopsies no dysplasia last biopsies 08/2014 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 Rick thompson. Dr Hinds BLADDER REPAIR 1990 CATARACT EXT/ECCE Bilateral 2011 Dr [place] CHOLECYSTECTOMY CYST REMOVAL Right 2000 cyst removal from rt breast-benign DILATION AND CURETTAGE (D AND C) 1970 x 2 EGD 01/01/2015 Dr. AlemanKgrywu-Vwcfzvfib-Pxekosr's esophagus EGD 08/2014 Dr. Vinicius RamachandranP-Mlydujmgq-Qagdwcy's esophagitis biopsies negative for dysplasia. ESOPHAGOGASTRODUODENOSCOPY 01/04/2018 Dr. Zavala -biopsies performed-Kelly's esophagitis-carcinoid tumor posterior wall duodenum FRACTURE SURGERY Right Plates and screws in rt arm after fracture. dr Dolan [facility] LEFT HEART CATH N/A 08/23/2018 Procedure: Left Heart Cath; Surgeon: Glen Fair MD; Location: [facility]; Service: Cardiovascular HYSTERECTOMY 1974 KIDNEY SURGERY 1968 had exploratory surgery d/t floating kidney Dx KNEE SURGERY Left 1997 left knee arthoscopy LUMPECTOMY Left 1989 benign ORIF HIP GAMMA NAIL Right 04/02/2020 IN DSTR NROLYTC AGNT PARVERTEB FCT ADDL LMBR/SACRAL Bilateral 01/21/2024 Procedure: Lumbar medial branch nerve radiofrequency ablation, bilateral lumbar 1-2-3; Surgeon: Jake Navarro DO; Location: Main OR; Service: Pain Management IN DSTR NROLYTC AGNT PARVERTEB FCT SNGL LMBR/SACRAL Bilateral 01/21/2024 Procedure: Lumbar medial branch nerve radiofrequency ablation, bilateral lumbar 1-2-3; Surgeon: Jake Navarro DO; Location: Main OR; Service: Pain Management IN NJX DX/THER AGT PVRT FACET JT LMBR/SAC 1 LEVEL Bilateral 06/18/2023 Procedure: Lumbar medial branch nerve blocks, bilateral lumbar 2-3-4; Surgeon: Jake Navarro DO; Location: Main OR; Service: Pain Management IN NJX DX/THER AGT PVRT FACET JT LMBR/SAC 1 LEVEL Bilateral 07/02/2023 Procedure: Lumbar medial branch nerve blocks, bilateral lumbar 2-3-4; Surgeon: Jake Navarro DO; Location: Main OR; Service: Pain Management SQUAMOUS CELL CARCINOMA EXCISION x4 TOTAL KNEE ARTHROPLASTY Left 2012 dr dolan TUMOR REMOVAL 2011 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 For complete objective data, detailed plan of care and patient education refer to: PT Evaluation flowsheet, PT Evaluation and Treatment flowsheet, PT Treatment flowsheet, patient Plan of Care, Plan of Care progress note, and Patient Education. This note stands as the current Discharge Summary upon patient discharge from the hospital or completion of Physical Therapy Plan. [facility] 11-04-2024 Consult note Formatting of th is note might be different from the original. Physical Therapy Physical Therapy Vestibular Note Description: Room spinning, lightheadnes at times Duration: 1 week Frequency: intermittent Provoking factors: turning head, standing up Hearing loss: yes, hearing aides not present in hospital. Denies tinnitus Cervical ROM: decreased in all directions, increased sx with left side bending CTA negative for Vertebral artery stenosis pt with diplopia d/t positioning of neck with testing Supine 134/64. Seated 124/66 Standing 91/60 After OH vitals, pt stated typically wears KWASI hose most of the time and they were donned for remaining session Impressions: PT Vestibular Impressions PT Vestibular Impression: Pt with likely cervicogenic component to dizziness as well as +OH and UTI contributing factors. Will require continued follow up for vestibular dx and treatment Oculomotor Testing: Oculomotor Testing Spontaneous Nystagmus: Test in room light, Not present Smooth Pursuit: Increase symptoms, Saccades present Saccades: (attempted, pt with difficulty following testing (moving head as well as eyes)) VOR Cancellation: Within Normal Limits (WNL) Head Thrust / VOR Fast: (attempted to test, pt unable relax enough to tolerate testing) Skew Eye Deviation: Within Normal Limits (WNL) Positional Testing: Not tested this session For complete Physical Therapy Vestibular assessment, treatment, and education, refer to the Vestibular flowsheet and Plan of Care documenation. This note and corresponding flowsheets stand as the Discharge Summary upon patient discharge from the hospital or completion of the Physical Therapy Plan of Care. T [facility] 11-03-2024 Plan of care note POC reviewed and continued Problem: Actual or potential alteration in health Goal: Absence of healthcare acquired conditions Outcome: Partially Met Goal: Knowledge of Interdisciplinary Plan of Care Outcome: Partially Met Goal: Knowledge of Enviroment Outcome: Partially Met Problem: Falls, Risk of Goal: Absence of falls Outcome: Partially Met Goal: Absence of physical injury Outcome: Partially Met Problem: Pain Goal: Reduced pain sensation Outcome: Partially Met Goal: Control of acute pain to acceptable level Outcome: Partially Met Goal: Able to cope with pain Outcome: Partially Met Goal: Able to achieve maximum level of physical functioning Outcome: Partially Met Goal: Able to achieve maximum level of psychosocial functioning Outcome: Partially Met Problem: Pressure Injury, Risk of Goal: Absence of pressure injury Outcome: Partially Met [facility] 11-03-2024 Note HMS PROGRESS NOTE Patient name: Cat Carroll Date of : 1935 Assessment and plan Cat Carroll is a 89 y.o. female patient of Claudine Majano MD with history of HTN, CAD, GERD, fibromyalgia presented to [facility] on 11/02/2024 with wekness, dizziness and urinary symptoms. Vertigo suspected benign positional vertigo Stroke ruled out Nausea CTA on 10/31 at previous ED visit no flow-limiting stenosis, thrombus, dissection, aneurysm, or large vessel occlusion. There are short segment mild to moderate stenoses in the P2 and P3 segments of the ADJUNCT TRAINER on the left. No occlusion or thrombus. No acute intracranial abnormality. No hemorrhage or mass effect. 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 Patient previously prescribed meclizine she has not taken it Brain MRI showed no acute infarction, noted moderate brain atrophy and moderate chronic microvascular changes Added meclizine OT consult for vestibular therapy Neurology evaluation pending Zofran as needed UTI H/o recurrent UTIs History of overactive bladder on Gemtesa as a chronic therapy UA findings leukocyte esterase, nitrite, and urine WBCs.. Urine cultures ordered. Continue ceftriaxone Cultures no growth to date so far History of trigeminal neuralgia Continue Lamictal History of hyperlipidemia Continue statin History of Eklly's esophagus Continue Protonix Discharge planning Patient medically ready for discharge: no The patient and/or family has been notified they are expected to be medically stable for discharge on the following date: tomorrow (11/04/2024) Patient requires continued hospitalization due to: symptom improvement Discussed with the patient and/or family that Home is a potential discharge location, understanding that the final plan will depend on the patient's progress and shared decision-making. The following resources have been ordered to assist with discharge barriers: OT Quality measures DVT prophylaxis: lovenox Ghotra catheter: absent Code status DNRCC-Arrest Subjective Patient complaining of room spinning sensation and nausea this morning, started around a week ago, no other neurological symptoms Objective BP 133/67 Pulse 76 Temp 97.7 degrees F (36.5 degrees C) (Oral) Resp 17 Ht 5' 4 Wt 52.3 kg (115 lb 4.8 oz) SpO2 95% BMI 19.79 kg/m General appearance: alert; acutely ill appearing; in mild acute distress HEENT: Head- normocephalic; Eyes- EOMI, sclera anicteric; Throat- mucous membranes moist Cardiovascular: regular rate and rhythm; normal S1, S2; no murmurs, rubs, clicks or gallops; peripheral edema absent Respiratory: lungs clear to auscultation; without wheezes, rales or rhonchi; on room air Abdomen: soft, non-tender, non-distended Neurological: oriented x 3; normal speech; no focal findings or movement disorder noted Musculoskeletal: no significant deformity or tenderness to palpation Skin: normal coloration Psych: normal mood and affect AUTHENTICATED BY TAMRA DEWEY ON 11/03/2024 13:17:21 [facility] 11-03-2024 Consult note Associated Order (s): IP CONSULT TO CARE MANAGEMENT Care Management Consult Note Date: 11/03/2024 Time: 12:39 PM Patient Name: Cat Carroll Date of : 1935 Reason for Consult: Discharge Plan: Plan A: Home Health Care Services Discharging Transportation Plan: Discharge Plan Status: Consult received. Into room to introduce self to patient and explain health and social care teacher role. Patient is from home alone and has 3 steps to get into the house. Patient states she has railings on both sides and does fine with this. Patient uses a walker at home and also has a cane and shower chair. Patient has support from her son and states he would come whenever she asks. Patient states her kids transport her to appointments now since she continues to be dizzy. Patient also can get rides through [employer] [facility] [address] and also gets meals on wheels and has someone come on to clean her house. Patient does not remember her renal case manager's name. Patient has Medicare and [employer] and states it covers everything needed. PCP is Dr. Majano. Patient is unsure of current discharge needs. [facility] will continue to follow. Assessment and Background Information: Living Arrangements: Alone Caregiver Identified: No Support Systems: Children, Family members, Home care staff, Friends/neighbors Assistance Needed: Yes Type of Residence: Private residence Prior to Admission Home Care Services: Yes Type of Current Home Care Services: Senior options/passport Current Agency Name: Other (Unknown to patient) Does the patient need discharge transport arranged?: No Current Home Equipment: Rollator, Cane, Adaptive equipment, Tub/Shower chair Holistic Assessment Medication adherence problem:: No History of falls in last 6 months:: (!) Yes Family aware of the patient's advance care planning wishes:: Yes Do you have any cultural/spiritual connections or beliefs that would impact how we deliver your care?: No Chronic pain:: (!) Yes Location of chronic pain:: low back pain Chronic pain timing:: Intermittent Chronic pain severity:: 4 Limitation of routine activities due to chronic pain:: Yes [facility] 11-03-2024 Consult note Associated Order (s): IP CONSULT TO NEUROLOGY Neurology Inpatient Consult [facility] Date of Service: 11/03/24 Admit Date: 11/02/2024 Service Type: New Patient Consultation Patient: Cat Carroll Date of : 1935 (89 y.o.) Referring Provider: Refer to consult order in electronic medical record Assessment ASSESSMENT: Cat Carroll is a 89 y.o. female who presented to [facility] on 11/02/2024 with dizziness; neurology consulted for the same. Patient known to me with history of trigeminal neuralgia. She has a history of dizziness even prior which made medications challenging; lamotrigine has been the only tolerable/effective approach so far. Presents with generalized weakness, instability, nausea, dysuria, urinary frequency, anorexia. History of recurrent UTI. Urine culture pending but UA positive for nitrites and leukocyte esterase with 11 WBCs (while not the most impressive, this is a change from the negative UA from 10/27). MRI negative. Dizziness is likely multifactorial. The acute trigger is probably UTI, with contributions from her medications (lamotrigine and methadone both can cause dizziness) and known spinal stenosis also playing a role with regards to her balance. She also has chronic BPPV which is contributing. As mentioned, she had chronic dizziness even before starting either of those meds, so they are not the main problem. I will adjust her lamotrigine dose as the level is a little high. Can cut down to 250mg BID; may need a new script for 25mg tabs outpatient (200mg + 2 x 25mg tabs for total 250mg). She would probably benefit from physical therapy as she is fairly deconditioned. Diagnoses: Generalized weakness and imbalance, multifactorial Trigeminal neuralgia Lumbar spinal stenosis Admitted with these risk variables:None. Please see assessment and plan for further details. PLAN: - decrease lamotrigine to 250mg BID - PT/OT - vestibular rehab after discharge - continue home atorvastatin - meclizine PRN, watch for delirium (can cause confusion in elderly patients) - Zofran PRN for nausea - follow up urine cultures - will follow along Rocael Mcleod MD Staff Neurologist [id number], [facility] [id number] [facility] 11/03/24 Parts of this note may have been dictated using Numerate, a speech-recognition software. Syntax errors and sound-alike substitutions which may escape proofreading could be present. In such instances, the actual meaning can be extrapolated from the context. Subjective SUBJECTIVE: Chief Complaint/Reason for Consult: dizziness History of Present Illness: Cat Carroll is a 89 y.o. female who presented on 11/02/2024 for dizziness and other symptoms. Neurology is consulted for the same. Patient known to me for trigeminal neuralgia, managed on lamotrigine. She has chronic dizziness since before I met her which made medication choice challenging (lamotrigine was really my last option anyway so it's good that it worked). Presents with worsening dizziness but also nausea, vomiting, blurry vision, generalized weakness, dysuria, increased urinary frequency, urinary incontinence, for at least a week. UA suggestive of UTI. TN pain is controlled now, no issues there. Review of systems: All systems were reviewed and found to be negative except for those mentioned in the HPI. 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 She has a past surgical history that includes Egd (01/01/2015); Egd (08/2014); Dilatation And Curettage (D And C) (1969); Hysterectomy (1974); Cholecystectomy; Kidney surgery (1968); Bladder repair (1989); Lumpectomy (Left, 1989); Cyst Removal (Right, 1999); Knee surgery (Left, 1997); Squamous cell carcinoma excision; Fracture surgery (Right); Cataract Ext/Ecce (Bilateral, 2011); Total knee arthroplasty (Left, 2012); Back surgery (2013); Tumor removal (2011); Esophagogastroduodenoscopy (01/04/2018); hc left heart cath (N/A, 08/23/2018); Orif Hip Gamma Nail (Right, 04/02/2020); pr njx dx/ther agt pvrt facet jt lmbr/sac 1 level (Bilateral, 06/18/2023); pr njx dx/ther agt pvrt facet jt lmbr/sac 1 level (Bilateral, 07/02/2023); pr dstr nrolytc agnt parverteb fct sngl lmbr/sacral (Bilateral, 01/21/2024); and pr dstr nrolytc agnt parverteb fct addl lmbr/sacral (Bilateral, 01/21/2024). She family history includes Bipolar disorder in her daughter; Dementia in her sister; Diabetes in her brother, maternal uncle, mother, sister, and son; Heart disease in her brother, father, and mother; Stroke in her father. She reports that she quit smoking about 48 years ago. Her smoking use included cigarettes. She has never been exposed to tobacco smoke. She has never used smokeless tobacco. She reports that she does not drink alcohol and does not use drugs. Allergies: Allergies: Aspirin; Codeine; Diphenhydramine; Gabapentin; Latex, natural rubber; Adhesive tape-silicones; Bacitracin; Bacitracin zinc-polymyxin b; Carbamazepine; Hydrocortisone; Lidocaine; Neomycin; and Mnmtdwxn-xgdixsdjxur-pqwgsgrij MEDICATIONS: WERE REVIEWED AND CHECKED FOR ALLERGIES AND INTERACTIONS (IN EMR). Objective OBJECTIVE: Physical Examination: BP (!) 112/55 Pulse 70 Temp 97.9 F (36.6 C) (Oral) Resp 16 Ht 5' 4 Wt 52.3 kg (115 lb 4.8 oz) SpO2 96% BMI 19.79 kg/m GENERAL: General Appearance: Resting comfortably in bed in NAD HEENT: Normocephalic. No conjunctival injection. Ears appear normal. No substantial sinus drainage. See below for vision/hearing Neck: Supple, no focal bony tenderness, no mass lesions Respiratory Effort: Normal Extremities: No edema Skin: No rashes visualized on limited skin exam MSK: No joint deformities Neurological examination: MENTAL STATUS: MENTAL STATUS: Alertness, Attention Span & Concentration: while she doesn't seem like the best historian, she is awake, alert, attentive. She made a single error when counting months backward and did serial 7s normally. Language: Normal Speech: Normal Orientation: Oriented to person, place, time/date, and situation Memory, Recent & Remote: 2/3 recall at 5 minutes. Fund of Knowledge: Normal CRANIAL NERVES: II - Visual Leos: Normal II, III: Pupils: PERRL, no RAPD III, IV, : Eye Movements: few beats of end-gaze nystagmus with lateral gaze to either side + [place]-Hallpike but curiously in both directions V - Facial Sensation: slightly more sensitive on the left face than the right. VII: Face Symmetry & Strength: Normal VIII - Hearing: Normal to finger rub bilaterally IX, X - Palate: Normal, elevates symmetrically XI - Shoulder Shrug: Normal XII - Tongue Protrusion: Normal, symmetric MOTOR: Muscle Strength Right Left 5 Shoulder Abduction (Deltoid) 5 5 Elbow Flexion (Biceps) 5 5 Elbow Extension (Triceps) 5 5 Wrist Flexion 5 5 Wrist Extension 5 5 Finger Abduction (Interossei) 5 Right Left 4 Hip Extension 4 4 Hip Flexion (Iliopsoas) 4 5 Knee Extension (Quads) 5 5 Knee Flexion (Hamstrings) 5 5 Dorsiflexion (Anterior Tibialis) 5 5 Plantar Flexion (Gastrocnemius) 5 MOTOR AVILA: 5 Normal (Normal Power) 4 Mild Weakness (Movement against moderate resistance over a full range of motion) 3 Moderate Weakness (Movement against gravity only over almost full range of motion) 2 Severe Weakness (Movement with gravity eliminated over almost full range of motion) 1 Trace Movement (Contraction visible or palpable without effective movement of the joint) 0 No Movement (No contraction visible or palpable) MARGUERITE Unable to Assess Normal Bulk and Tone, no atrophy. Hips limited by back pain. SENSATION: Fine Touch: Normal Pinprick: Normal REFLEXES: Right Reflexes Left 2+ Biceps 2+ 2+ Triceps 2+ 2+ Brachioradialis 2+ 1+ Patellar 1+ 1+ Achilles 1+ Down Plantar Response (Babinski) Down REFLEXES AVILA: 4+ Sustained Clonus 3+ Brisk 2+ Normal 1+ Diminished 0 Absent MARGUERITE Unable to Assess COORDINATION: Coordination Tljwyh-ir-Ikzf: Mild intention tremor bilaterally and mild dysmetria, R>L Cabrera Finger taps: normal Coordination Nabh-Bgrq-Wzfy: normal Diadochokinesis: normal STANCE AND GAIT: Base/Stance: Normal/ narrow base Gait: A little unsteady. Mix of what seems to be mild ataxia as well as antalgia, stiffness at low back/hips. Deconditioned. Slow, cautious steps Gait Aid Used During Exam: None Gait Assistance Required During Exam: moderate MOVEMENT DISORDERS EXAMINATION: Tremor - no tremors noted other than mild intention tremors. Bradykinesia - None Rigidity - None Dyskinesia/Choreoathetosis - None Dystonia/Myoclonus/Tics - None DIAGNOSTIC TESTING SUMMARY: Pending Lab and Radiology Results Order Current Status Urine Aerobic Culture In process MR Brain Without Contrast Preliminary result Resulted Testing: (MRI/CT/XR, EEG, EMG, CSF, Cardiac, Labs) MRI brain w/o: no acute infarct. Moderate atrophy, mild microvascular ischemic disease changes. CTA head/neck: no LVO, aneurysm, etc. Mild to moderate stenosis in distal left ADJUNCT TRAINER, probably incidental. CBC unremarkable. CMP with Cr 1.2, otherwise WNL (baseline). UA + nitrite, +LE, 11 WBCs, rare bacteria. Attestation: Discussed risks, benefits and alternatives regarding plan with patient/family/caregivers and answered the questions. I independently reviewed radiology images and summarized in this note with annotations and screenshots wherever appropriate. Time statement: A total of 81 minutes were spent on this encounter either in the patient's room or on the patient's hospital unit and over 50% of that time was spent on dtfo-im-kioi counseling and/or coordination of care. This includes discussions with patient/family as well as with consulting care providers, regarding clinical course, prognosis, treatment alternatives, expected outcomes of medications and their side effects. [facility] 11-02-2024 Progress note Formatting of t his note is different from the original. [facility] NOTE Contacted by staff regarding insomnia Action taken: Melatonin ordered I did not personally evaluate the patient. Treatment is based on review of chart and discussion with nursing staff and treatment team as necessary. [facility] Work Phone: 11-02-2024 Emergency department Note Report given to room 2122 nurse. [facility] 11-02-2024 Emergency department Note Report given to room 2122 nurse. This RN attempted to call report to room [facility] nurse, RN told she would receive a call back. Hourly rounding assessment completed on the patient. [x] Patient updated on plan of care [x] All comfort needs addressed [x] Patient updated on duration of visit All questions answered, patient denies further needs. Call light within reach. Hourly rounding assessment completed on the patient. [x] Patient updated on plan of care [x] All comfort needs addressed [x] Patient updated on duration of visit All questions answered, patient denies further needs. Call light within reach. Hourly rounding assessment completed on the patient. [x] Patient updated on plan of care [x] All comfort needs addressed [x] Patient updated on duration of visit All questions answered, patient denies further needs. Call light within reach. Hourly rounding assessment completed on the patient. [] Patient updated on plan of care [x] All comfort needs addressed [] Patient updated on duration of visit Patient, bedding and gown changed. New purwick placed. All questions answered, patient denies further needs. Call light within reach. Hourly rounding assessment completed on the patient. [x] Patient updated on plan of care [x] All comfort needs addressed [x] Patient updated on duration of visit All questions answered, patient denies further needs. Call light within reach. Hourly rounding assessment completed on the patient. [x] Patient updated on plan of care [x] All comfort needs addressed [x] Patient updated on duration of visit All questions answered, patient denies further needs. Call light within reach. ED Nurse To Nurse Bedside Report Chief Complaint Patient presents with Weakness Alert (+0) Vital Signs: Vitals: 11/02/24 1244 11/02/24 1250 BP: (!) 162/70 Pulse: 80 Resp: (!) 10 Temp: 98.3 F (36.8 C) TempSrc: Oral SpO2: 96% Weight: 56.2 kg (124 lb) Height: 5' 4 Pain: Pain Assessment Pain Assessment Scale: 0-10 DVPRS 0-10 DVPRS: 0/10 Oxygen: room air Current Needs Required provider to see pt Telemetry: LDAs: Peripheral IV 11/02/24 Left Antecubital (Active) Site Assessment Clean;Dry;Intact 11/02/24 1240 Wound 01/21/24 Lumbar Spine;Thoracic Spine (Active) Continuous Infusions: Swallow Screen completed:No NPO:Yes Mobility: fair Fall Risk Scale Mobility: Ambulate with assist device (Walker and cane) Mentation: Alert and oriented x3 Elimination: Needs assist Prior Fall History: No Current Medications: None of the listed medications Fall Risk Score: 2 Fall Intervention: Call light within reach, ED cart rails up, Low bed with floor mat [employer] n/a Report given to: Cathryn LOUIS Bed: 40 Expected date: Expected time: Means of arrival: Comments: HB01 Pt presents to the ED from home with weakness, Pt has been to the [facility] twice this past week for weakness. Denies falls. Bed: H01 Expected date: Expected time: Means of arrival: Comments: anabel documented in this encounter [facility] 11-02-2024 Emergency department Note This RN attempted to call report to room 2122 nurse, RN told she would receive a call back. [facility] 11-02-2024 Emergency department Note Hourly rounding assessment completed on the patient. [x] Patient updated on plan of care [x] All comfort needs addressed [x] Patient updated on duration of visit All questions answered, patient denies further needs. Call light within reach. [facility] 11-02-2024 History and physical note [facility] Patient name: Cat Carroll Date of : 1935 Admission date: 11/02/2024 Physicians: Claudine Majano MD (Family); No ref. provider found (Referring) Cat Carroll is a 89 y.o. female patient of Claudine Majano MD with history of HTN, CAD, GERD, fibromyalgia presented to [facility] on 11/02/2024 with wekness, dizziness and urinary symptoms. Dizziness CTA on 10/31 at previous ED visit no flow-limiting stenosis, thrombus, dissection, aneurysm, or large vessel occlusion. There are short segment mild to moderate stenoses in the P2 and P3 segments of the ADJUNCT TRAINER on the left. No occlusion or thrombus. No acute intracranial abnormality. No hemorrhage or mass effect. 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 Patient previously prescribed meclizine she has not taken it Will obtain MRI Neuro checks every 4 hours Consult neurology UTI H/o recurrent UTIs History of overactive bladder on Gemtesa as a chronic therapy UA findings leukocyte esterase, nitrite, and urine WBCs.. Urine cultures ordered. Rocephin started F/u on cultures History of trigeminal neuralgia Continue Lamictal History of hyperlipidemia Continue statin History of Kelly's esophagus Continue Protonix Admitted with the following risk variables: DNR. Residence prior to admission: house or apartment Quality measures DVT prophylaxis: lovenox Ghotra catheter: absent Medication reconciliation: verified Patient and/or family has been told expected day of discharge is: 1-2 days Potential social barriers to discharge include: none Code status DNR-CCA, with no intubation; code status verified on 11/02/2024 with patient (capacity intact) Chief complaint Generalized weakness History of present illness Cat Carroll is a 89 y.o. female patient of Claudine Majano MD with history of HTN presented to [facility] on 11/02/2024 with wekness . Generalized weakness. States that she usually uses a walker at baseline. Today her home health nurse told her to go to the ER for evaluation because she was unable to get around as usual. She almost fell out of a window. She states that yesterday she presented to the ED at [place] due to dizziness. On 825 presented to the ED due to dizziness blurry vision and brought by squad, their blood pressure was found to be 170/78. Patient reports she was so dizzy and wobbly she took her to the bathroom before the squad arrived. Patient denies any LOC. She denies any lightheadedness. She reports that dizziness started associated with vomiting and nausea. She reports poor appetite and weight loss. 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 Rick thompson. Dr Hinds BLADDER REPAIR 1989 CATARACT EXT/ECCE Bilateral 2011 Dr ar[place]ula CHOLECYSTECTOMY CYST REMOVAL Right 2000 cyst removal from rt breast-benign DILATION AND CURETTAGE (D AND C) 1970 x 2 EGD 01/01/2015 Dr. ZavalaKwlcsw-Xolslxaps-Uxiyazr's esophagus EGD 08/2014 Dr. Vinicius RamachandranE-Dktljamcu-Gsyxfwj's esophagitis biopsies negative for dysplasia. ESOPHAGOGASTRODUODENOSCOPY 01/04/2018 Dr. Zavala -biopsies performed-Kelly's esophagitis-carcinoid tumor posterior wall duodenum FRACTURE SURGERY Right Plates and screws in rt arm after fracture. dr Dolan [facility] LEFT HEART CATH N/A 08/23/2018 Procedure: Left Heart Cath; Surgeon: Glen Fair MD; Location: [facility]; Service: Cardiovascular HYSTERECTOMY 1975 KIDNEY SURGERY 1969 had exploratory surgery d/t floating kidney Dx KNEE SURGERY Left 1998 left knee arthoscopy LUMPECTOMY Left 1989 benign ORIF HIP GAMMA NAIL Right 04/02/2020 IN DSTR NROLYTC AGNT PARVERTEB FCT ADDL LMBR/SACRAL Bilateral 01/21/2024 Procedure: Lumbar medial branch nerve radiofrequency ablation, bilateral lumbar 1-2-3; Surgeon: Jake Navarro DO; Location: Main OR; Service: Pain Management IN DSTR NROLYTC AGNT PARVERTEB FCT SNGL LMBR/SACRAL Bilateral 01/21/2024 Procedure: Lumbar medial branch nerve radiofrequency ablation, bilateral lumbar 1-2-3; Surgeon: Jake Navarro DO; Location: Main OR; Service: Pain Management IN NJX DX/THER AGT PVRT FACET JT LMBR/SAC 1 LEVEL Bilateral 06/18/2023 Procedure: Lumbar medial branch nerve blocks, bilateral lumbar 2-3-4; Surgeon: Jake Navarro DO; Location: Main OR; Service: Pain Management IN NJX DX/THER AGT PVRT FACET JT LMBR/SAC 1 LEVEL Bilateral 07/02/2023 Procedure: Lumbar medial branch nerve blocks, bilateral lumbar 2-3-4; Surgeon: Jake Navarro DO; Location: Main OR; Service: Pain Management SQUAMOUS CELL CARCINOMA EXCISION x4 TOTAL KNEE ARTHROPLASTY Left 2012 dr dolan TUMOR REMOVAL 2011 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 Family history Family History Problem Relation Age of Onset Diabetes Mother Heart disease Mother Heart disease Father Stroke Father Diabetes Sister Dementia Sister Heart disease Brother Diabetes Brother Diabetes Maternal Uncle Bipolar disorder Daughter Diabetes Son Cancer Neg Hx Aneurysm Neg Hx Seizures Neg Hx Social history Tobacco Use History[1] Social History Substance and Sexual Activity Alcohol Use No Social History Substance and Sexual Activity Drug Use No Allergy information I have reviewed the patient's allergies. Aspirin; Codeine; Diphenhydramine; Gabapentin; Latex, natural rubber; Adhesive tape-silicones; Bacitracin; Bacitracin zinc-polymyxin b; Carbamazepine; Hydrocortisone; Lidocaine; Neomycin; and Kgafltzt-tludpuukijk-fcfsmocsu Home medications Home medications were reviewed. Review of systems All relevant systems have been reviewed and are negative except as noted in HPI or below Physical examination BP (!) 161/79 Pulse 88 Temp 98.3 F (36.8 C) (Oral) Resp 17 Ht 5' 4 Wt 56.2 kg (124 lb) SpO2 97% BMI 21.28 kg/m General appearance: alert; well appearing; in no acute distress HEENT: Head- normocephalic; Eyes- EOMI, sclera anicteric; Throat- mucous membranes moist Cardiovascular: regular rate and rhythm; normal S1, S2; no murmurs, rubs, clicks or gallops; peripheral edema absent Respiratory: lungs clear to auscultation; without wheezes, rales or rhonchi; on room air Abdomen: soft, non-tender, non-distended Neurological: oriented x 3; normal speech; no focal findings or movement disorder noted Musculoskeletal: no significant deformity or tenderness to palpation Skin: normal coloration Psych: normal mood and affect [1] Social History Tobacco Use Smoking Status Former Current packs/day: 0.00 Types: Cigarettes Quit date: 04/03/1976 Years since quittin.6 Passive exposure: Never Smokeless Tobacco Never [facility] 11-02-2024 Note [facility] Patient name: Cat Carroll Date of : 1935 Admission date: 11/02/2024 Physicians: Claudine Majano MD (Family); No ref. provider found (Referring) Cat Carroll is a 89 y.o. female patient of Claudine Majano MD with history of HTN, CAD, GERD, fibromyalgia presented to [facility] on 11/02/2024 with wekness, dizziness and urinary symptoms. Dizziness CTA on 10/31 at previous ED visit no flow-limiting stenosis, thrombus, dissection, aneurysm, or large vessel occlusion. There are short segment mild to moderate stenoses in the P2 and P3 segments of the ADJUNCT TRAINER on the left. No occlusion or thrombus. No acute intracranial abnormality. No hemorrhage or mass effect. 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 Patient previously prescribed meclizine she has not taken it Will obtain MRI Neuro checks every 4 hours Consult neurology UTI H/o recurrent UTIs History of overactive bladder on Gemtesa as a chronic therapy UA findings leukocyte esterase, nitrite, and urine WBCs.. Urine cultures ordered. Rocephin started F/u on cultures History of trigeminal neuralgia Continue Lamictal History of hyperlipidemia Continue statin History of Kelly's esophagus Continue Protonix Admitted with the following risk variables: DNR. Residence prior to admission: house or apartment Quality measures DVT prophylaxis: lovenox Ghotra catheter: absent Medication reconciliation: verified Patient and/or family has been told expected day of discharge is: 1-2 days Potential social barriers to discharge include: none Code status DNR-CCA, with no intubation; code status verified on 11/02/2024 with patient (capacity intact) Chief complaint Generalized weakness History of present illness Cat Carroll is a 89 y.o. female patient of Claudine Majano MD with history of HTN presented to [facility] on 11/02/2024 with wekness . Generalized weakness. States that she usually uses a walker at baseline. Today her home health nurse told her to go to the ER for evaluation because she was unable to get around as usual. She almost fell out of a window. She states that yesterday she presented to the ED at [place] due to dizziness. On 825 presented to the ED due to dizziness blurry vision and brought by squad, their blood pressure was found to be 170/78. Patient reports she was so dizzy and wobbly she took her to the bathroom before the squad arrived. Patient denies any LOC. She denies any lightheadedness. She reports that dizziness started associated with vomiting and nausea. She reports poor appetite and weight loss. 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 Cabrera donna. Dr Hinds BLADDER REPAIR 1989 CATARACT EXT/ECCE Bilateral 2011 Dr arambula CHOLECYSTECTOMY CYST REMOVAL Right 1999 cyst removal from rt breast-benign DILATION AND CURETTAGE (D AND C) 1970 x 2 EGD 01/01/2015 Dr. ZavalaFxahey-Exjkeijyi-Nthpsof's esophagus EGD 08/2014 Dr. Vinicius RamachandranD-Chwprkdlk-Qvrggda's esophagitis biopsies negative for dysplasia. ESOPHAGOGASTRODUODENOSCOPY 01/04/2018 Dr. Zavala -biopsies performed-Kelly's esophagitis-carcinoid tumor posterior wall duodenum FRACTURE SURGERY Right Plates and screws in rt arm after fracture. dr Dolan LEFT HEART CATH N/A 08/23/2018 Procedure: Left Heart Cath; Surgeon: Glen Fair MD; Location: [facility]; Service: Cardiovascular HYSTERECTOMY 1974 KIDNEY SURGERY 1969 had exploratory surgery d/t floating kidney Dx KNEE SURGERY Left 1997 left knee arthoscopy LUMPECTOMY Left 1989 benign ORIF HIP GAMMA NAIL Right 04/02/2020 IN DSTR NROLYTC AGNT PARVERTEB FCT ADDL LMBR/SACRAL Bilateral 01/21/2024 Procedure: Lumbar medial branch nerve radiofrequency ablation, bilateral lumbar 1-2-3; Surgeon: Jake Navarro DO; Location: Main OR; Service: Pain Management IN DSTR NROLYTC AMAURY ROLDAN (more content not included)... [facility] 11-02-2024 History and physical note [facility] [place] [facility] Patient name: Cat Carroll Date of : 1935 Admission date: 11/02/2024 Physicians: Claudine Majano MD (Family); No ref. provider found (Referring) Cat Carroll is a 89 y.o. female patient of Claudine Majano MD with history of HTN, CAD, GERD, fibromyalgia presented to [facility] on 11/02/2024 with wekness, dizziness and urinary symptoms. Dizziness CTA on 10/31 at previous ED visit no flow-limiting stenosis, thrombus, dissection, aneurysm, or large vessel occlusion. There are short segment mild to moderate stenoses in the P2 and P3 segments of the [employer] on the left. No occlusion or thrombus. No acute intracranial abnormality. No hemorrhage or mass effect. 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 Patient previously prescribed meclizine she has not taken it Will obtain MRI Neuro checks every 4 hours Consult neurology UTI H/o recurrent UTIs History of overactive bladder on Gemtesa as a chronic therapy UA findings leukocyte esterase, nitrite, and urine WBCs.. Urine cultures ordered. Rocephin started F/u on cultures History of trigeminal neuralgia Continue Lamictal History of hyperlipidemia Continue statin History of Kelly's esophagus Continue Protonix Admitted with the following risk variables: DNR. Residence prior to admission: house or apartment Quality measures DVT prophylaxis: lovenox Ghotra catheter: absent Medication reconciliation: verified Patient and/or family has been told expected day of discharge is: 1-2 days Potential social barriers to discharge include: none Code status DNR-CCA, with no intubation; code status verified on 11/02/2024 with patient (capacity intact) Chief complaint Generalized weakness History of present illness Cat Carroll is a 89 y.o. female patient of Claudine Majano MD with history of HTN presented to [facility] on 11/02/2024 with wekness . Generalized weakness. States that she usually uses a walker at baseline. Today her home health nurse told her to go to the ER for evaluation because she was unable to get around as usual. She almost fell out of a window. She states that yesterday she presented to the ED at [place] due to dizziness. On 825 presented to the ED due to dizziness blurry vision and brought by squad, their blood pressure was found to be 170/78. Patient reports she was so dizzy and wobbly she took her to the bathroom before the squad arrived. Patient denies any LOC. She denies any lightheadedness. She reports that dizziness started associated with vomiting and nausea. She reports poor appetite and weight loss. 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 Rick thompson. Dr Hinds BLADDER REPAIR 1989 CATARACT EXT/ECCE Bilateral 2011 Dr arambula CHOLECYSTECTOMY CYST REMOVAL Right 1999 cyst removal from rt breast-benign DILATION AND CURETTAGE (D AND C) 1970 x 2 EGD 01/01/2015 Dr. ZavalaIdyptv-Obzmbocye-Eijxxem's esophagus EGD 08/2014 Dr. Vinicius Pruett-Barrett's esophagitis biopsies negative for dysplasia. ESOPHAGOGASTRODUODENOSCOPY 01/04/2018 Dr. Zavala -biopsies performed-Kelly's esophagitis-carcinoid tumor posterior wall duodenum FRACTURE SURGERY Right Plates and screws in rt arm after fracture. dr Dolan LEFT HEART CATH N/A 08/23/2018 Procedure: Left Heart Cath; Surgeon: Glen Fair MD; Location: [facility]; Service: Cardiovascular HYSTERECTOMY 1975 KIDNEY SURGERY 1969 had exploratory surgery d/t floating kidney Dx KNEE SURGERY Left 1998 left knee arthoscopy LUMPECTOMY Left 1989 benign ORIF HIP GAMMA NAIL Right 04/02/2020 IN DSTR NROLYTC AGNT PARVERTEB FCT ADDL LMBR/SACRAL Bilateral 01/21/2024 Procedure: Lumbar medial branch nerve radiofrequency ablation, bilateral lumbar 1-2-3; Surgeon: Jake Navarro DO; Location: Main OR; Service: Pain Management IN DSTR NROLYTC AGNT PARVERTEB FCT SNGL LMBR/SACRAL Bilateral 01/21/2024 Procedure: Lumbar medial branch nerve radiofrequency ablation, bilateral lumbar 1-2-3; Surgeon: Jake Navarro DO; Location: Main OR; Service: Pain Management IN NJX DX/THER AGT PVRT FACET JT LMBR/SAC 1 LEVEL Bilateral 06/18/2023 Procedure: Lumbar medial branch nerve blocks, bilateral lumbar 2-3-4; Surgeon: Jake Navarro DO; Location: Main OR; Service: Pain Management IN NJX DX/THER AGT PVRT FACET JT LMBR/SAC 1 LEVEL Bilateral 07/02/2023 Procedure: Lumbar medial branch nerve blocks, bilateral lumbar 2-3-4; Surgeon: Jake Navarro DO; Location: Main OR; Service: Pain Management SQUAMOUS CELL CARCINOMA EXCISION x4 TOTAL KNEE ARTHROPLASTY Left 2013 dr dolan TUMOR REMOVAL 2012 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 Family history Family History Problem Relation Age of Onset Diabetes Mother Heart disease Mother Heart disease Father Stroke Father Diabetes Sister Dementia Sister Heart disease Brother Diabetes Brother Diabetes Maternal Uncle Bipolar disorder Daughter Diabetes Son Cancer Neg Hx Aneurysm Neg Hx Seizures Neg Hx Social history Tobacco Use History[1] Social History Substance and Sexual Activity Alcohol Use No Social History Substance and Sexual Activity Drug Use No Allergy information I have reviewed the patient's allergies. Aspirin; Codeine; Diphenhydramine; Gabapentin; Latex, natural rubber; Adhesive tape-silicones; Bacitracin; Bacitracin zinc-polymyxin b; Carbamazepine; Hydrocortisone; Lidocaine; Neomycin; and Kjmlrrti-gfeavqkeicg-biydcaknq Home medications Home medications were reviewed. Review of systems All relevant systems have been reviewed and are negative except as noted in HPI or below Physical examination BP (!) 161/79 Pulse 88 Temp 98.3 F (36.8 C) (Oral) Resp 17 Ht 5' 4 Wt 56.2 kg (124 lb) SpO2 97% BMI 21.28 kg/m General appearance: alert; well appearing; in no acute distress HEENT: Head- normocephalic; Eyes- EOMI, sclera anicteric; Throat- mucous membranes moist Cardiovascular: regular rate and rhythm; normal S1, S2; no murmurs, rubs, clicks or gallops; peripheral edema absent Respiratory: lungs clear to auscultation; without wheezes, rales or rhonchi; on room air Abdomen: soft, non-tender, non-distended Neurological: oriented x 3; normal speech; no focal findings or movement disorder noted Musculoskeletal: no significant deformity or tenderness to palpation Skin: normal coloration Psych: normal mood and affect [1] Social History Tobacco Use Smoking Status Former Current packs/day: 0.00 Types: Cigarettes Quit date: 04/03/1976 Years since quittin.6 Passive exposure: Never Smokeless Tobacco Never documented in this encounter [facility] 11-02-2024 Emergency department Note Hourly rounding assessment completed on the patient. [x] Patient updated on plan of care [x] All comfort needs addressed [x] Patient updated on duration of visit All questions answered, patient denies further needs. Call light within reach. [facility] 11-02-2024 Emergency department Note Hourly rounding assessment completed on the patient. [x] Patient updated on plan of care [x] All comfort needs addressed [x] Patient updated on duration of visit All questions answered, patient denies further needs. Call light within reach. [facility] 11-02-2024 Emergency department Note Hourly rounding assessment completed on the patient. [] Patient updated on plan of care [x] All comfort needs addressed [] Patient updated on duration of visit Patient, bedding and gown changed. New purwick placed. All questions answered, patient denies further needs. Call light within reach. [facility] 11-02-2024 Emergency department Note Hourly rounding assessment completed on the patient. [x] Patient updated on plan of care [x] All comfort needs addressed [x] Patient updated on duration of visit All questions answered, patient denies further needs. Call light within reach. [facility] 11-02-2024 Emergency department Note Hourly rounding assessment completed on the patient. [x] Patient updated on plan of care [x] All comfort needs addressed [x] Patient updated on duration of visit All questions answered, patient denies further needs. Call light within reach. [facility] 11-02-2024 Emergency department Note ED Nurse To Nurse Bedside Report Chief Complaint Patient presents with Weakness Alert (+0) Vital Signs: Vitals: 11/02/24 1244 11/02/24 1250 BP: (!) 162/70 Pulse: 80 Resp: (!) 10 Temp: 98.3 F (36.8 C) TempSrc: Oral SpO2: 96% Weight: 56.2 kg (124 lb) Height: 5' 4 Pain: Pain Assessment Pain Assessment Scale: 0-10 DVPRS 0-10 DVPRS: 0/10 Oxygen: room air Current Needs Required provider to see pt Telemetry: LDAs: Peripheral IV 11/02/24 Left Antecubital (Active) Site Assessment Clean;Dry;Intact 11/02/24 1240 Wound 01/21/24 Lumbar Spine;Thoracic Spine (Active) Continuous Infusions: Swallow Screen completed:No NPO:Yes Mobility: fair Fall Risk Scale Mobility: Ambulate with assist device (Walker and cane) Mentation: Alert and oriented x3 Elimination: Needs assist Prior Fall History: No Current Medications: None of the listed medications Fall Risk Score: 2 Fall Intervention: Call light within reach, ED cart rails up, Low bed with floor mat [employer] n/a Report given to: Cathryn LOUIS [facility] 11-02-2024 Emergency department Note Bed: 40 Expected date: Expected time: Means of arrival: Comments: HB01 [facility] 11-02-2024 Emergency department Triage note Pt presents to the ED from home with weakness, Pt has been to the [facility] twice this past week for weakness. Denies falls. [facility] 11-02-2024 Emergency department Note Bed: H01 Expected date: Expected time: Means of arrival: Comments: anabel [facility] 10-27-2024 Physician Emergency department Note Nausea and vomiting. There is 89-year-old white female states that yesterday she began to have nausea with vomiting and today continues to have that she states that she did have some abdominal pain symptoms yesterday but denies them currently. She denies any change in her bowel habits. She states that she does a history of frequent UTIs and was last diagnosed with one 2 weeks ago. She has a history of trigeminal neuralgia and vertigo and GERD. States that she is also on Lasix and has to get up in the middle of the night to urinate because of that. She continues have bilateral lower extremity edema. History provided by: Patient mark up designer used: No Physical Exam Vitals and nursing note reviewed. Constitutional: General: She is awake. Appearance: Normal appearance. She is normal weight. HENT: Head: Normocephalic and atraumatic. Right Ear: Hearing and external ear normal. Left Ear: Hearing and external ear normal. Nose: Nose normal. No congestion or rhinorrhea. Mouth/Throat: Lips: [place]. Mouth: Mucous membranes are moist. Pharynx: Oropharynx is clear. Uvula midline. No oropharyngeal exudate or posterior oropharyngeal erythema. Eyes: General: Lids are normal. Vision grossly intact. Right eye: No discharge. Left eye: No discharge. Extraocular Movements: Extraocular movements intact. Conjunctiva/sclera: Conjunctivae normal. Pupils: Pupils are equal, round, and reactive to light. Cardiovascular: Rate and Rhythm: Normal rate and regular rhythm. Pulses: Normal pulses. Heart sounds: Normal heart sounds. No murmur heard. No friction rub. No gallop. Pulmonary: Effort: Pulmonary effort is normal. No respiratory distress. Breath sounds: Normal breath sounds. No stridor. No wheezing, rhonchi or rales. Chest: Chest wall: No tenderness. Abdominal: General: Abdomen is flat. Bowel sounds are normal. There is no distension. Palpations: Abdomen is soft. There is no mass. Tenderness: There is no abdominal tenderness. There is no guarding or rebound. Hernia: No hernia is present. Comments: Patient has a benign abdominal exam. Musculoskeletal: General: No swelling, tenderness, deformity or signs of injury. Normal range of motion. Cervical back: Full passive range of motion without pain, normal range of motion and neck supple. Right lower le+ Edema present. Left lower le+ Edema present. Skin: General: Skin is warm and dry. Capillary Refill: Capillary refill takes less than 2 seconds. Coloration: Skin is not jaundiced or pale. Findings: No bruising, erythema, lesion or rash. Neurological: General: No focal deficit present. Mental Status: She is alert and oriented to person, place, and time. GCS: GCS eye subscore is 4. GCS verbal subscore is 5. GCS motor subscore is 6. Cranial Nerves: Cranial nerves 2-12 are intact. No cranial nerve deficit. Sensory: Sensation is intact. No sensory deficit. Motor: Motor function is intact. No weakness. Coordination: Coordination is intact. Coordination normal. Deep Tendon Reflexes: Reflexes normal. Psychiatric: Attention and Perception: Attention and perception normal. Mood and Affect: Mood and affect normal. Speech: Speech normal. Behavior: Behavior normal. Behavior is cooperative. Thought Content: Thought content normal. Cognition and Memory: Cognition and memory normal. Judgment: Judgment normal. Labs Reviewed LIPASE - Abnormal Result Value Lipase 8 (*) Narrative: Venipuncture immediately after or during the administration of Metamizole may lead to falsely low results. Testing should be performed immediately prior to Metamizole dosing. COMPREHENSIVE METABOLIC PANEL - Abnormal Glucose 116 (*) Sodium 140 Potassium 4.1 Chloride 106 Bicarbonate 26 Anion Gap 12 Urea Nitrogen 18 Creatinine 0.99 eGFR 55 (*) Calcium 9.3 Albumin 4.2 Alkaline Phosphatase 95 Total Protein 6.6 AST 14 Bilirubin, Total 0.6 ALT 9 CBC WITH AUTO DIFFERENTIAL - Abnormal WBC 6.0 nRBC 0.0 RBC 3.99 (*) Hemoglobin 11.8 (*) Hematocrit 37.6 MCV 94 MCH 29.6 MCHC 31.4 (*) RDW 13.5 Platelets 175 Neutrophils % 54.9 Immature Granulocytes %, Automated 0.3 Lymphocytes % 37.5 Monocytes % 6.1 Eosinophils % 0.7 Basophils % 0.5 Neutrophils Absolute 3.31 Immature Granulocytes Absolute, Automated 0.02 Lymphocytes Absolute 2.26 Monocytes Absolute 0.37 Eosinophils Absolute 0.04 Basophils Absolute 0.03 URINALYSIS WITH REFLEX CULTURE AND MICROSCOPIC - Abnormal Color, Urine Colorless (*) Appearance, Urine Clear Specific [place], Urine 1.021 pH, Urine 6.5 Protein, Urine NEGATIVE Glucose, Urine Normal Blood, Urine 0.1 (1+) (*) Ketones, Urine NEGATIVE Bilirubin, Urine NEGATIVE Urobilinogen, Urine Normal Nitrite, Urine NEGATIVE Leukocyte Esterase, Urine NEGATIVE URINALYSIS MICROSCOPIC WITH REFLEX CULTURE - Abnormal WBC, Urine 1-5 RBC, Urine 11-20 (*) LACTATE - Normal Lactate 1.7 Narrative: Venipuncture immediately after or during the administration of Metamizole may lead to falsely low results. Testing should be performed immediately prior to Metamizole dosing. URINALYSIS WITH REFLEX CULTURE AND MICROSCOPIC Narrative: The following orders were created for panel order Urinalysis with Reflex Culture and Microscopic. Procedure Abnormality Status --------- ------ Urinalysis with Reflex C...[[id number]] Abnormal Final result Extra Urine Mejia Tube[[id number]] In process Please view results for these tests on the individual orders. EXTRA URINE MEJIA TUBE CT abdomen pelvis w IV contrast Final Result 1. No intra-abdominal or intrapelvic pathology that would indicate potential causes of nausea/vomiting. 2. 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 3. Kidneys with multiple parapelvic cysts, no hydronephrosis/hydroureter. 4. Pelvis shows uterus surgically absent, lower lumbar sacral spine fusion apparatus. 5. Pelvis demonstrates multiple old probable insufficiency fractures, lower lumbar sacral spine pedicle screws/fusion apparatus, right hip ORIF, dynamic screw. Signed by Vasquez Randhawa MD Procedures Medical Decision Making Patient was seen and evaluated in the ED due to complaint of nausea and vomiting she states that yesterday she did have some abdominal pain complaints but states that those symptoms have since improved. The patient states that she has a history of frequent UTIs and somewhat concerned about the possibility. CBC revealed normal white cell count hemoglobin is 11.8 hematocrit is 30 normal at 37.6 and platelets are normal at 175 no left shift. CMP revealed glucose of 116 GFR is 55 lipase was low at 8 and lactic acid was normal at 1.7 urinalysis revealed no evidence of urinary tract infection CT scan of the abdomen pelvis revealed no intra-abdominal or intrapelvic pathology that could indicate potential cause of nausea/vomiting. Liver with left lobe chronic hemangioma/liver cyst, unchanged from June 2018. Spleen granulomatous disease. Kidneys with multiple parapelvic cysts, no hydronephrosis/ureter. Pelvic shows uterus surgically absent, lower lumbar sacral spine fusion apparatus. Pelvis demonstrates multiple old probable insufficient fractures, lower lumbar sacral spine pedicle screws/fusion apparatus, right hip ORIF, dynamic screw. After getting the CT scan results I did have a discussion with the patient and told her that I would be discharging her home with a prescription for Zofran and to follow-up with her primary care doctor. Amount and/or Complexity of Data Reviewed ECG/medicine tests: independent interpretation performed. Details: EKG was interpreted by myself at 11:11 AM reveals normal sinus rhythm with evidence of LVH and left axis deviation. The heart rate is 73 bpm. The IN interval is 198 ms. The QRS duration is 94 ms. The QTc 4 and 42 ms axis is -37 degrees. Diagnoses as of 10/27/24 1521 Nausea and vomiting, unspecified vomiting type Lizeth Comer DO 10/27/24 1521 [facility] Work Phone: 10-27-2024 Emergency department Note Nausea and vomiting. There is 89-year-old white female states that yesterday she began to have nausea with vomiting and today continues to have that she states that she did have some abdominal pain symptoms yesterday but denies them currently. She denies any change in her bowel habits. She states that she does a history of frequent UTIs and was last diagnosed with one 2 weeks ago. She has a history of trigeminal neuralgia and vertigo and GERD. States that she is also on Lasix and has to get up in the middle of the night to urinate because of that. She continues have bilateral lower extremity edema. History provided by: Patient mark up designer used: No Physical Exam Vitals and nursing note reviewed. Constitutional: General: She is awake. Appearance: Normal appearance. She is normal weight. HENT: Head: Normocephalic and atraumatic. Right Ear: Hearing and external ear normal. Left Ear: Hearing and external ear normal. Nose: Nose normal. No congestion or rhinorrhea. Mouth/Throat: Lips: [place]. Mouth: Mucous membranes are moist. Pharynx: Oropharynx is clear. Uvula midline. No oropharyngeal exudate or posterior oropharyngeal erythema. Eyes: General: Lids are normal. Vision grossly intact. Right eye: No discharge. Left eye: No discharge. Extraocular Movements: Extraocular movements intact. Conjunctiva/sclera: Conjunctivae normal. Pupils: Pupils are equal, round, and reactive to light. Cardiovascular: Rate and Rhythm: Normal rate and regular rhythm. Pulses: Normal pulses. Heart sounds: Normal heart sounds. No murmur heard. No friction rub. No gallop. Pulmonary: Effort: Pulmonary effort is normal. No respiratory distress. Breath sounds: Normal breath sounds. No stridor. No wheezing, rhonchi or rales. Chest: Chest wall: No tenderness. Abdominal: General: Abdomen is flat. Bowel sounds are normal. There is no distension. Palpations: Abdomen is soft. There is no mass. Tenderness: There is no abdominal tenderness. There is no guarding or rebound. Hernia: No hernia is present. Comments: Patient has a benign abdominal exam. Musculoskeletal: General: No swelling, tenderness, deformity or signs of injury. Normal range of motion. Cervical back: Full passive range of motion without pain, normal range of motion and neck supple. Right lower le+ Edema present. Left lower le+ Edema present. Skin: General: Skin is warm and dry. Capillary Refill: Capillary refill takes less than 2 seconds. Coloration: Skin is not jaundiced or pale. Findings: No bruising, erythema, lesion or rash. Neurological: General: No focal deficit present. Mental Status: She is alert and oriented to person, place, and time. GCS: GCS eye subscore is 4. GCS verbal subscore is 5. GCS motor subscore is 6. Cranial Nerves: Cranial nerves 2-12 are intact. No cranial nerve deficit. Sensory: Sensation is intact. No sensory deficit. Motor: Motor function is intact. No weakness. Coordination: Coordination is intact. Coordination normal. Deep Tendon Reflexes: Reflexes normal. Psychiatric: Attention and Perception: Attention and perception normal. Mood and Affect: Mood and affect normal. Speech: Speech normal. Behavior: Behavior normal. Behavior is cooperative. Thought Content: Thought content normal. Cognition and Memory: Cognition and memory normal. Judgment: Judgment normal. Labs Reviewed LIPASE - Abnormal Result Value Lipase 8 (*) Narrative: Venipuncture immediately after or during the administration of Metamizole may lead to falsely low results. Testing should be performed immediately prior to Metamizole dosing. COMPREHENSIVE METABOLIC PANEL - Abnormal Glucose 116 (*) Sodium 140 Potassium 4.1 Chloride 106 Bicarbonate 26 Anion Gap 12 Urea Nitrogen 18 Creatinine 0.99 eGFR 55 (*) Calcium 9.3 Albumin 4.2 Alkaline Phosphatase 95 Total Protein 6.6 AST 14 Bilirubin, Total 0.6 ALT 9 CBC WITH AUTO DIFFERENTIAL - Abnormal WBC 6.0 nRBC 0.0 RBC 3.99 (*) Hemoglobin 11.8 (*) Hematocrit 37.6 MCV 94 MCH 29.6 MCHC 31.4 (*) RDW 13.5 Platelets 175 Neutrophils % 54.9 Immature Granulocytes %, Automated 0.3 Lymphocytes % 37.5 Monocytes % 6.1 Eosinophils % 0.7 Basophils % 0.5 Neutrophils Absolute 3.31 Immature Granulocytes Absolute, Automated 0.02 Lymphocytes Absolute 2.26 Monocytes Absolute 0.37 Eosinophils Absolute 0.04 Basophils Absolute 0.03 URINALYSIS WITH REFLEX CULTURE AND MICROSCOPIC - Abnormal Color, Urine Colorless (*) Appearance, Urine Clear Specific [place], Urine 1.021 pH, Urine 6.5 Protein, Urine NEGATIVE Glucose, Urine Normal Blood, Urine 0.1 (1+) (*) Ketones, Urine NEGATIVE Bilirubin, Urine NEGATIVE Urobilinogen, Urine Normal Nitrite, Urine NEGATIVE Leukocyte Esterase, Urine NEGATIVE URINALYSIS MICROSCOPIC WITH REFLEX CULTURE - Abnormal WBC, Urine 1-5 RBC, Urine 11-20 (*) LACTATE - Normal Lactate 1.7 Narrative: Venipuncture immediately after or during the administration of Metamizole may lead to falsely low results. Testing should be performed immediately prior to Metamizole dosing. URINALYSIS WITH REFLEX CULTURE AND MICROSCOPIC Narrative: The following orders were created for panel order Urinalysis with Reflex Culture and Microscopic. Procedure Abnormality Status --------- ------ Urinalysis with Reflex C...[[id number]] Abnormal Final result Extra Urine Mejia Tube[[id number]] In process Please view results for these tests on the individual orders. EXTRA URINE MEJIA TUBE CT abdomen pelvis w IV contrast Final Result 1. No intra-abdominal or intrapelvic pathology that would indicate potential causes of nausea/vomiting. 2. 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 3. Kidneys with multiple parapelvic cysts, no hydronephrosis/hydroureter. 4. Pelvis shows uterus surgically absent, lower lumbar sacral spine fusion apparatus. 5. Pelvis demonstrates multiple old probable insufficiency fractures, lower lumbar sacral spine pedicle screws/fusion apparatus, right hip ORIF, dynamic screw. Signed by Vasquez Randhawa MD Procedures Medical Decision Making Patient was seen and evaluated in the ED due to complaint of nausea and vomiting she states that yesterday she did have some abdominal pain complaints but states that those symptoms have since improved. The patient states that she has a history of frequent UTIs and somewhat concerned about the possibility. CBC revealed normal white cell count hemoglobin is 11.8 hematocrit is 30 normal at 37.6 and platelets are normal at 175 no left shift. CMP revealed glucose of 116 GFR is 55 lipase was low at 8 and lactic acid was normal at 1.7 urinalysis revealed no evidence of urinary tract infection CT scan of the abdomen pelvis revealed no intra-abdominal or intrapelvic pathology that could indicate potential cause of nausea/vomiting. Liver with left lobe chronic hemangioma/liver cyst, unchanged from June 2018. Spleen granulomatous disease. Kidneys with multiple parapelvic cysts, no hydronephrosis/ureter. Pelvic shows uterus surgically absent, lower lumbar sacral spine fusion apparatus. Pelvis demonstrates multiple old probable insufficient fractures, lower lumbar sacral spine pedicle screws/fusion apparatus, right hip ORIF, dynamic screw. After getting the CT scan results I did have a discussion with the patient and told her that I would be discharging her home with a prescription for Zofran and to follow-up with her primary care doctor. Amount and/or Complexity of Data Reviewed ECG/medicine tests: independent interpretation performed. Details: EKG was interpreted by myself at 11:11 AM reveals normal sinus rhythm with evidence of LVH and left axis deviation. The heart rate is 73 bpm. The IN interval is 198 ms. The QRS duration is 94 ms. The QTc 4 and 42 ms axis is -37 degrees. Diagnoses as of 10/27/24 1521 Nausea and vomiting, unspecified vomiting type Lizeth Comer DO 10/27/24 1521 documented in this encounter [facility] Work Phone: 10-17-2024 Telephone encounter Note New script for 300mg BID (1.5 tabs BID) sent. [facility] 10-17-2024 Miscellaneous Notes New script for 300mg BID (1.5 tabs BID) sent. Patient called stating that she was prescribed lamotrigine for her trigeminal neuralgia, 200mg once daily. She stated that she has been having more twinges in her face and the pain is severe. She has been taking 1.5 tablets twice daily, but ran out of her medication. Pharmacy is stating that she will need a new script for the 1.5 tablets twice daily. Pharmacy is [facility] in [place] documented in this encounter [facility] 10-17-2024 Telephone encounter Note Patient called stating that she was prescribed lamotrigine for her trigeminal neuralgia, 200mg once daily. She stated that she has been having more twinges in her face and the pain is severe. She has been taking 1.5 tablets twice daily, but ran out of her medication. Pharmacy is stating that she will need a new script for the 1.5 tablets twice daily. Pharmacy is [facility] 09-28-2024 Telephone encounter Note CAT is requesting a refill for Requested Prescriptions Pending Prescriptions Disp Refills meclizine (ANTIVERT) 25 MG chewable tablet 270 tablet 1 Sig: Chew and Swallow 1 (one) tablet (25 mg total) 3 (three) times a day as needed for nausea or dizziness . Last refill: patient was buying OTC. Patient reported that Claudine Majano MD at last office visit state she could get cheaper through [facility] Last appt: 09/23/2024 Upcoming appt (when is it due or is it scheduled): 01/27/2025 Follow up: Refill pending for review without additional follow up based on information above. [facility] 09-28-2024 Miscellaneous Notes NATALIABRIAN is requesting a refill for Requested Prescriptions Pending Prescriptions Disp Refills meclizine (ANTIVERT) 25 MG chewable tablet 270 tablet 1 Sig: Chew and Swallow 1 (one) tablet (25 mg total) 3 (three) times a day as needed for nausea or dizziness . Last refill: patient was buying OTC. Patient reported that Claudine Majano MD at last office visit state she could get cheaper through [facility] Last appt: 09/23/2024 Upcoming appt (when is it due or is it scheduled): 01/27/2025 Follow up: Refill pending for review without additional follow up based on information above. documented in this encounter [facility] 09-23-2024 Note Subjective Patient I D: Cat Carroll is a 89 y.o. female here for Chief Complaint Patient presents with Fall No pain After discussing the use of ambient listening and audio recording in generating medical documentation, the patient verbally consented to use of this technology for today's visit. History of Present Illness Cat Carroll is an 89 year old female who presents after a fall resulting in a finger injury. She fell on while carrying a pitcher of potting soil and a digger up the porch steps to check on [place]. Despite holding onto the rail, she lost her balance and fell, injuring her finger. She has been applying cold water followed by Vaseline to the injury and wrapped her arm in a towel saturated with Vaseline overnight. No other cuts on the arm besides the finger injury. She experiences occasional dizziness attributed to vertigo, for which she is receiving exercises at home. She did not feel dizzy while ascending the stairs and described hurrying due to rain. She uses a cane inside the house and is accompanied by someone when using it outside. She did not have her walker with her during the fall. She reports shoulder pain and experiences vertigo. She is currently taking exercises for this condition. She also mentions a history of high blood pressure, which is regularly monitored by in-home care providers. She is taking duloxetine 90 mg, which was increased by 30 mg previously, but she feels it is not making a difference in her mood or pain. She also takes medication for trigeminal neuralgia, which she finds effective. She mentions a medication for dizziness that can be obtained [id number], possibly named 'Vonair'. She has experienced several falls and incidents in the kitchen, leading her daughter to advise her to stay out of the kitchen. She stays close to counters to prevent falls and has learned to be more cautious. She bruises easily and inquires about remedies for black and blue spots. She mentions that her palliative care nurse is leaving, and she is uncertain about a replacement. She values the nurse's understanding and communication. 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 Cabrera donan. Dr Hinds BLADDER REPAIR 1989 CATARACT EXT/ECCE Bilateral 2011 Dr arambula CHOLECYSTECTOMY CYST REMOVAL Right 2000 cyst removal from rt breast-benign DILATION AND CURETTAGE (D AND C) 1970 x 2 EGD 01/01/2015 Dr. ZavalaBpqwid-Fjophgoua-Bdrazyk's esophagus EGD 08/2014 Dr. Vinicius Pruett-Barrett's esophagitis biopsies negative for dysplasia. ESOPHAGOGASTRODUODENOSCOPY 01/04/2018 Dr. Zavala -biopsies performed-Kelly's esophagitis-carcinoid tumor posterior wall duodenum FRACTURE SURGERY Right Plates and screws in rt arm after fracture. dr Dolan LEFT HEART CATH N/A 08/23/2018 Procedure: Left Heart Cath; Surgeon: Glen Fair MD; Location: [facility]; Service: Cardiovascular HYSTERECTOMY 1975 KIDNEY SURGERY 1968 had exploratory surgery d/t floating kidney Dx KNEE SURGERY Left 1997 left knee arthoscopy LUMPECTOMY Left 1989 benign ORIF HIP GAMMA NAIL Right 04/02/2020 IN DSTR NROLYTC AGNT PARVERTEB FCT ADDL LMBR/SACRAL Bilateral 01/21/2024 Procedure: Lumbar medial branch nerve radiofrequency ablation, bilateral lumbar 1-2-3; Surgeon: Jake Navarro DO; Location: [facility]; Service: Pain Management IN DSTR NROLYTC AGNT PARVERTEB FCT SNGL LMBR/SACRAL Bilateral 01/21/2024 Procedure: Lumbar medial branch nerve radiofrequency ablation, bilateral lumbar 1-2-3; Surgeon: Jake Navarro DO; Location: [facility]; Service: Pain Management IN NJX DX/THER AGT PVRT FACET JT LMBR/SAC 1 LEVEL Bilateral 06/18/2023 Procedure: Lumbar medial branch nerve blocks, bilateral lumbar 2-3-4; Surgeon: Jake Navarro DO; Location: [facility]; Service: Pain Management IN NJX DX/THER AGT PVRT FACET JT LMBR/SAC 1 LEVEL Bilateral 07/02/2023 Procedure: Lumbar medial branch nerve blocks, bilateral lumbar 2-3-4; Surgeon: Jake Navarro DO; Location: [facility]; Service: Pain Management SQUAMOUS CELL CARCINOMA EXCISION x4 TOTAL KNEE ARTHROPLASTY Left 2013 dr dolan TUMOR REMOVAL 2012 removal of carcino (more content not included)... [facility] 09-23-2024 History of Present illness Narrative Subjective Patient ID: Cat Carroll is a 89 y.o. female here for Chief Complaint Patient presents with Fall No pain After discussing the use of ambient listening and audio recording in generating medical documentation, the patient verbally consented to use of this technology for today's visit. History of Present Illness Cat Carroll is an 89 year old female who presents after a fall resulting in a finger injury. She fell on while carrying a pitcher of potting soil and a digger up the porch steps to check on [place]. Despite holding onto the rail, she lost her balance and fell, injuring her finger. She has been applying cold water followed by Vaseline to the injury and wrapped her arm in a towel saturated with Vaseline overnight. No other cuts on the arm besides the finger injury. She experiences occasional dizziness attributed to vertigo, for which she is receiving exercises at home. She did not feel dizzy while ascending the stairs and described hurrying due to rain. She uses a cane inside the house and is accompanied by someone when using it outside. She did not have her walker with her during the fall. She reports shoulder pain and experiences vertigo. She is currently taking exercises for this condition. She also mentions a history of high blood pressure, which is regularly monitored by in-home care providers. She is taking duloxetine 90 mg, which was increased by 30 mg previously, but she feels it is not making a difference in her mood or pain. She also takes medication for trigeminal neuralgia, which she finds effective. She mentions a medication for dizziness that can be obtained [id number], possibly named 'Vonair'. She has experienced several falls and incidents in the kitchen, leading her daughter to advise her to stay out of the kitchen. She stays close to counters to prevent falls and has learned to be more cautious. She bruises easily and inquires about remedies for black and blue spots. She mentions that her palliative care nurse is leaving, and she is uncertain about a replacement. She values the nurse's understanding and communication. 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 Cabrera donna. Dr Hinds BLADDER REPAIR 1989 CATARACT EXT/ECCE Bilateral 2011 Dr arambula CHOLECYSTECTOMY CYST REMOVAL Right 1999 cyst removal from rt breast-benign DILATION AND CURETTAGE (D AND C) 1970 x 2 EGD 01/01/2015 Dr. ZavalaTkdacb-Lyjflpdkx-Utlfnln's esophagus EGD 08/2014 Dr. Vinicius Pruett-Barrett's esophagitis biopsies negative for dysplasia. ESOPHAGOGASTRODUODENOSCOPY 01/04/2018 Dr. Zavala -biopsies performed-Kelly's esophagitis-carcinoid tumor posterior wall duodenum FRACTURE SURGERY Right Plates and screws in rt arm after fracture. dr Dolan LEFT HEART CATH N/A 08/23/2018 Procedure: Left Heart Cath; Surgeon: Glen Fair MD; Location: [facility]; Service: Cardiovascular HYSTERECTOMY 1975 KIDNEY SURGERY 1969 had exploratory surgery d/t floating kidney Dx KNEE SURGERY Left 1997 left knee arthoscopy LUMPECTOMY Left 1989 benign ORIF HIP GAMMA NAIL Right 04/02/2020 IN DSTR NROLYTC AGNT PARVERTEB FCT ADDL LMBR/SACRAL Bilateral 01/21/2024 Procedure: Lumbar medial branch nerve radiofrequency ablation, bilateral lumbar 1-2-3; Surgeon: Jake Navarro DO; Location: [facility]; Service: Pain Management IN DSTR NROLYTC AGNT PARVERTEB FCT SNGL LMBR/SACRAL Bilateral 01/21/2024 Procedure: Lumbar medial branch nerve radiofrequency ablation, bilateral lumbar 1-2-3; Surgeon: Jake Navarro DO; Location: [facility]; Service: Pain Management IN NJX DX/THER AGT PVRT FACET JT LMBR/SAC 1 LEVEL Bilateral 06/18/2023 Procedure: Lumbar medial branch nerve blocks, bilateral lumbar 2-3-4; Surgeon: Jake Navarro DO; Location: [facility]; Service: Pain Management IN NJX DX/THER AGT PVRT FACET JT LMBR/SAC 1 LEVEL Bilateral 07/02/2023 Procedure: Lumbar medial branch nerve blocks, bilateral lumbar 2-3-4; Surgeon: Jake Navarro DO; Location: [facility]; Service: Pain Management SQUAMOUS CELL CARCINOMA EXCISION x4 TOTAL KNEE ARTHROPLASTY Left 2013 dr dolan TUMOR REMOVAL 2012 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 Family History Problem Relation Age of Onset Diabetes Mother Heart disease Mother Heart disease Father Stroke Father Diabetes Sister Dementia Sister Heart disease Brother Diabetes Brother Diabetes Maternal Uncle Bipolar disorder Daughter Diabetes Son Cancer Neg Hx Aneurysm Neg Hx Seizures Neg Hx Social History[1] Review of Systems Vitals: 09/23/24 1118 09/23/24 1159 BP: (!) 161/74 132/69 BP Location: Right arm Patient Position: Sitting BP Cuff Size: Adult Pulse: 82 SpO2: 94% Weight: 56.2 kg (124 lb) Height: 5' 4 Estimated body mass index is 21.28 kg/m as calculated from the following: Height as of this encounter: 5' 4. Weight as of this encounter: 56.2 kg (124 lb). Physical Exam Constitutional: General: She is not in acute distress. Appearance: She is not ill-appearing. HENT: Head: Normocephalic and atraumatic. Nose: Nose normal. Mouth/Throat: Mouth: Mucous membranes are moist. Pharynx: Oropharynx is clear. No oropharyngeal exudate or posterior oropharyngeal erythema. Eyes: Extraocular Movements: Extraocular movements intact. Conjunctiva/sclera: Conjunctivae normal. Pupils: Pupils are equal, round, and reactive to light. Cardiovascular: Rate and Rhythm: Normal rate and regular rhythm. Pulses: Normal pulses. Heart sounds: Normal heart sounds. No murmur heard. No gallop. Pulmonary: Effort: Pulmonary effort is normal. Breath sounds: Normal breath sounds. No wheezing, rhonchi or rales. Chest: Chest wall: No tenderness. Abdominal: General: Abdomen is flat. Bowel sounds are normal. There is no distension. Palpations: Abdomen is soft. There is no mass. Tenderness: There is no abdominal tenderness. There is no right CVA tenderness, left CVA tenderness, guarding or rebound. Musculoskeletal: General: No tenderness. Normal range of motion. Cervical back: Normal range of motion and neck supple. No rigidity. No muscular tenderness. Right lower leg: No edema. Left lower leg: No edema. Lymphadenopathy: Cervical: No cervical adenopathy. Skin: General: Skin is warm. Findings: No erythema or rash. Neurological: General: No focal deficit present. Mental Status: She is alert and oriented to person, place, and time. Sensory: No sensory deficit. Motor: No weakness. Gait: Gait normal. Psychiatric: Mood and Affect: Mood normal. Behavior: Behavior normal. Thought Content: Thought content normal. Judgment: Judgment normal. OARRS/NARxCHECK Report Received and Assessed: Jake Navarro DO on 08/10/2024 2:55 PM Date controlled substance agreement signed: 01/01/2024 Date of last drug screen: PHQ9: JOHNATHON-7 Tobacco Counseling: Counseling given: Not Answered Reviewed by Provider: Patient's Medications New Prescriptions No medications on file Previous Medications ASPIRIN (ECOTRIN ORAL) Take by mouth . COLESTIPOL (COLESTID) 1 GRAM TABLET D-MANNOSE ORAL ESTRADIOL (ESTRACE) 0.01 % (0.1 MG/GRAM) VAGINAL CREAM Insert 2 (two) g into the vagina daily . FUROSEMIDE (LASIX) 20 MG TABLET Take 1 (one) tablet (20 mg total) by mouth daily . LAMOTRIGINE (LAMICTAL) 200 MG TABLET Take 1 (one) tablet (200 mg total) by mouth daily . METHADONE (DOLOPHINE) 5 MG TABLET Take 1.5 (one and a half) tablets (7.5 mg total) by mouth 2 (two) times a day (Days supply per fill: 30) Start: 08/28/24. METHADONE (DOLOPHINE) 5 MG TABLET Take 1.5 (one and a half) tablets (7.5 mg total) by mouth 2 (two) times a day (Days supply per fill: 30) Start: 09/26/24. METHADONE (DOLOPHINE) 5 MG TABLET Take 1.5 (one and a half) tablets (7.5 mg total) by mouth 2 (two) times a day (Days supply per fill: 30) Start: 10/26/24. MULTIVIT-MIN/IRON/FOLIC/LUTEIN (CENTRUM SILVER WOMEN ORAL) Take 1 tablet by mouth daily. NALOXONE (NARCAN) 4 MG/ACTUATION SPRY Administer 1 spray into one nostril for known or suspected opioid overdose. If patient worsens or does not respond, may repeat in 2-3 minutes. . NITROGLYCERIN (NITROSTAT) 0.[address] 1 (one) tablet (0.4 mg total) under the tongue every 5 (five) minutes as needed for chest pain , if no relief after 3 doses call 911 . PANTOPRAZOLE (PROTONIX) 40 MG TABLET Take 1 (one) tablet (40 mg total) by mouth daily . VIBEGRON (GEMTESA) 75 MG TAB Take by mouth . Modified Medications Modified Medication Previous Medication ATORVASTATIN (LIPITOR) 40 MG TABLET atorvastatin (LIPITOR) 40 MG tablet Take 1 (one) tablet (40 mg total) by mouth nightly . Take 1 (one) tablet (40 mg total) by mouth nightly . LOSARTAN (COZAAR) 50 MG TABLET losartan (Cozaar) 50 MG tablet Take 1 (one) tablet (50 mg total) by mouth daily . Take 1 (one) tablet (50 mg total) by mouth daily . Discontinued Medications DULOXETINE (CYMBALTA) 30 MG CAPSULE Take 1 (one) capsule (30 mg total) by mouth daily Total of 90 mg with the 60 mg script . Health Maintenance Due Topic Date Due Zoster Vaccines (1 of 2) Never done Respiratory Syncytial Virus Immunization: Risk, 60-74 Risk, or 75+ (1 - 1-dose 75+ series) Never done COVID-19 Vaccine ( season) 2023 Assessment & Plan Problem List Items Addressed This Visit Cardiovascular and Mediastinum Hypertension Relevant Medications losartan (Cozaar) 50 MG tablet Other At moderate risk for fall Relevant Orders Ambulatory referral to Home Health Walker rolling Hyperlipidemia Relevant Medications atorvastatin (LIPITOR) 40 MG tablet Other Relevant Orders Lipid Panel Spinal stenosis, 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 neurogenic claudication Relevant Orders Ambulatory referral to Home Health Dizziness - Primary Relevant Orders Outreach Urinalysis w/ Reflex Culture Dysuria Relevant Orders Outreach Urinalysis w/ Reflex Culture Other Visit Diagnoses Essential hypertension Relevant Medications losartan (Cozaar) 50 MG tablet Other Relevant Orders TSH with Reflex Free T4 Microalbumin/Creatinine Ratio, UR Random Hemoglobin A1c Lipid Panel Comprehensive Metabolic Panel CBC and Differential Admission for therapeutic drug monitoring Relevant Orders B12/Folate Abnormal finding of blood chemistry, unspecified Relevant Orders Hemoglobin A1c Assessment & Plan Assessment & Plan Fall with minor injury Minor finger injury from fall due to vertigo-related dizziness. Managed with Vaseline and cold water. - Apply antibacterial ointment and cover with nonstick pad. - Continue Vaseline for moisture. - Increase physical therapy for balance. Vertigo Dizziness from vertigo contributed to fall. Home exercises ongoing. - Increase physical therapy for balance. - Confirm and discuss [id number] medication for dizziness. Discontinue Duloxetine Discontinuation of Duloxetine Duloxetine discontinued due to lack of benefit and potential fall risk. - Discontinue duloxetine. - Provide updated medication list. Hypertension Blood pressure improved to 132/69 mmHg. Losartan continued. - Monitor blood pressure regularly. - Renew losartan prescription to [facility]. Trigeminal Neuralgia Symptoms managed with medication starting with 'MARIANNE'. General Health Maintenance Prescriptions updated except for cholesterol and blood pressure. Routine blood work and UTI test needed. - Order routine blood work. - Order UTI test for burning sensation. Follow-up Follow-up in three months to reassess. Discussed need for smaller walker. - Schedule follow-up in December or January. - Prescribe smaller walker with front wheels. Return in about 4 months (around 01/24/2025) for Follow Up. My ongoing relationship with Cat Carroll requires continued responsibility and cognitive effort of being the focal point for all services related to chronic condition(s). After discussing the use of ambient listening and audio recording in generating medical documentation, the patient verbally consented to use of this technology for today's visit. CLAUDINE MAJANO MD [facility] [address] [facility] [address] [facility] [id number] Dept: [phone] [1] Social History Tobacco Use Smoking status: Former Current packs/day: 0.00 Types: Cigarettes Quit date: 04/03/1976 Years since quittin.5 Passive exposure: Never Smokeless tobacco: Never Vaping Use Vaping status: Never Used Substance Use Topics Alcohol use: No Drug use: No documented in this encounter [facility] 08-23-2024 History of Present illness Narrative Documentation received for pt. Provider received and signed. Faxed back to number provided and sent to [facility] to be scanned to pt chart. documented in this encounter [facility] 08-10-2024 Instructions Jake Navarro DO - 08/10/2024 2:53 PM EDT If chronic opioids were prescribed, the risk of chronic opioid therapy includes, but not limited constipation, nausea, vomiting, hormonal changes, osteoporosis, developing a tolerance, dependence or addiction to the medication and the possibility of overdose and . Prior to initiating chronic opioid therapy, patient failed many non-opioid therapies including PT, injections/pain procedures, NSAIDs, Tylenol, muscle relaxers and nerve medications. The goal of opioid therapy is to reduce their chronic pain and improve their functional capacity and quality of life. The lowest effective dose will be utilized for the shortest duration possible. Weaning of opioids will always be considered whenever possible. The patient can NOT mix opioids with other sedating medications or substances including marijuana, benzodiazepines, muscle relaxers, nerve medication and alcohol. The patient can only take medication as prescribed. The patient can NOT sell, share or give away their medication. The patient must lock their medication in a safe location away from children and other family members. If patient has a history of sleep apnea or COPD, they are at increased risk of respiratory depression, overdose and given their underlying disease process. It is important to continue to using their CPAP and supplemental oxygen as prescribed. Patient should NOT take their pain medication if they have a respiratory illness as this puts them at increased risk of respiratory depression, overdose and . Narcan is the reversal agent for an opioid overdose. This should always be next to your opioid medication in the event of an opioid overdose. Narcan prescription was ordered upon initiation of chronic opioid therapy and will be offered or ordered at every follow-up visit or sooner if patient requests. Please refer to instructions on medication packet for proper use. Please discuss with your pharmacist if you have any further questions. Patient agrees to submit to drugs screens and pill counts as requested to ensure compliance and rule out any diversion, medication overuse, inappropriately taking other prescriptions medications or use of illicit substances. Patient understands if either a drug screen or pill count is inappropriate, they will be discharged from the practice. They have agreed to this by way of our mutually signed pain contract scanned into EMR. If a procedure was ordered, the risks of the procedure include, but not limited to, worsening pain, failure to improve pain, bruising, bleeding, infection, medication side effects or allergic reaction to the medications used, tissue injury, nerve injury, nerve palsy or paralysis, transient or permanent weakness, injection of local anesthetic intravascularly or intrathecally resulting in cardiac arrhythmias, fainting, respiratory arrest, spinal cord injury, heart attack, stroke and . If anesthesia or sedation will be used there is a risk for cardiac and respiratory complications including heart attack, stroke, cardiac arrest and . If steroid is given, this can increase blood sugar (if diabetic) and blood pressure (if history of high blood pressure) for several days following the injection.Patient should check both blood pressure and blood sugar regularly and if abnormal should follow-up with their primary care physician. If patient takes a blood thinner or anti-platelet medication, we will request written permission from the managing physician to hold the blood thinner or anti-platelet medication per the LICO guidelines. If the managing physician does not give approval to hold the medication for the duration requested, the procedure will be cancelled. Holding blood thinner or anti-platelet medication can result in increased risk of stroke, heart attack or even when approval by the managing physician is given. documented in this encounter [facility] 08-10-2024 Note [facility] Interventional Pain Management Office Note Patient Name: Cat Carroll Referring Physician: No ref. provider found Date of : 1935 PCP: Claudine Majano MD Date of Service: 08/10/24 Assessment & Plan Assessment: Failed back surgery syndrome Posterior fusion, L5-S1 Lumbar spondylosis Lumbar spinal stenosis Lumbar degenerative disease Chronic pain syndrome Encounter for long-term, current, high risk medication management Chronic continuous opioid use Anticoagulation: ASA Narrative: She presented with chronic low back pain secondary to combination of lumbar spondylosis, lumbar degenerative disease and a component of failed back surgery syndrome following a posterior fusion L5-S1. MRI lumbar spine reviewed and shows recurrent degenerative changes resulting in severe right foraminal narrowing at L5-S1. There is also additional multilevel degenerative changes throughout the rest of her lumbar spine. She is status post lumbar medial branch nerve RFA, bilateral L1, L2, L3 on 01/21/2024. She endorses 95% relief of her low back pain following the ablation. As long as she achieves at least 6 months duration of relief we can certainly repeat this in the future as needed. She also is dealing with trigeminal neuralgia and vertigo symptoms. She follows closely with neurology at [facility] for treatment of trigeminal neuralgia and dizziness. Unfortunately she sustained a fall on 03/16/2024 and was evaluated in the ER at that time and was diagnosed with right rib fractures with displaced fractured ribs 3 through 5 and nondisplaced rib fractures 6 through 8. She states her pain from her rib fractures is now resolved. Analgesia: Patient has adequate analgesia with the use of current opioid pain medication. Activities of Daily Living: Patient's activities of daily living and psychological functioning have improved sufficiently with use of the current opioid medication. Adverse Effects: Patient reports no adverse effects with use of the opioid pain medication. Aberrant Drug-Taking Behavior: Patient has demonstrated no aberrant drug taking behaviors with no deviation from prescription. She has tried and failed tramadol secondary to side effects.We did trial a course of opioid cycling from methadone to [place] however she did not tolerate [place] as this caused dizziness and vomiting. EKG 06/06/24: Qtc 401 Plan: Medications: Continue methadone 7.5 mg twice daily as needed Follow-up: Return in about 3 months (around 11/10/2024) for Follow-up. Compliance Pain Contract Signed: 09/28/23 OARRS/NARxCheck: 08/10/24 Drug Screen/Pill Count History: UDS 08/10/24: ordered UDS 04/13/24: appropriate UDS 01/01/24: appropriate UDS 09/28/23: appropriate Narcan offered/ordered: 08/10/24 Opioid Risk Tool (ORT): Gender Male or Female: F (01/01/2024 9:00 AM) Family History of Substance Abuse (Alcohol): 0 (01/01/2024 9:00 AM) Family History of Substance Abuse (Illegal Drugs): 0 (01/01/2024 9:00 AM) Family History of Substance Abuse (Prescription Drugs): 0 (01/01/2024 9:00 AM) Personal History of Substance Abuse (Alcohol): 0 (01/01/2024 9:00 AM) Personal History of Substance Abuse (Illegal Drugs): 0 (01/01/2024 9:00 AM) Personal History of Substance Abuse (Prescription Drugs): 0 (01/01/2024 9:00 AM) History of Preadolescent Sexual Abuse: 0 (01/01/2024 9:00 AM) Psychological Disease: 0 (01/01/2024 9:00 AM) Psychological Disease (Depression): 1 (01/01/2024 9:00 AM) Total : 1 (01/01/2024 9:00 AM) Total Score Risk Category: Low Risk (0-3) (01/01/2024 9:00 AM) Oswestry Disability Index (EZEQUIEL): Oswestry Low Back Disability Index My BACK PAIN at the moment is: 1 (01/01/2024 9:00 AM) Personal care: 1 (01/01/2024 9:00 AM) Lifitn (01/01/2024 9:00 AM) Walkin (01/01/2024 9:00 AM) Sittin (01/01/2024 9:00 AM) Standin (01/01/2024 9:00 AM) Sleepin (01/01/2024 9:00 AM) Sex Life: 5 (01/01/2024 9:00 AM) Social Life: 3 (01/01/2024 9:00 AM) Travelin (01/01/2024 9:00 AM) Oswestry Score: 22 (01/01/2024 9:00 AM) Current Opioid Misuse Measure (COMM): Current Opioid Misuse Measure (COMM) In the past 30 days, how often have you had trouble with thinking clearly or had memory problems?: 2 (05/12/2024 1:00 PM) In the past 30 days, how often do people complain that you are not completing necessary tasks? (i.e., doing things that need to be done, such as going to class, work or appointments) : 0 (05/12/2024 1:00 PM) In the past 30 days, how often have you had to go to someone other than your prescribing physician to get sufficient pain relief from medications? (i.e., another doctor, the Emergency Room, friends, street sources): 0 (05/12/2024 1:00 PM) In the past 30 days, how often have you taken your medications differently from how they are prescribed?: 0 (05/12/2024 1:00 PM) In the past 30 days, how often have yo (more content not included)... [facility] 08-10-2024 History of Present illness Narrative [facility] Interventional Pain Management Office Note Patient Name: Cat Carroll Referring Physician: No ref. provider found Date of : 1935 PCP: Claudine Majano MD Date of Service: 08/10/24 Assessment & Plan Assessment: Failed back surgery syndrome Posterior fusion, L5-S1 Lumbar spondylosis Lumbar spinal stenosis Lumbar degenerative disease Chronic pain syndrome Encounter for long-term, current, high risk medication management Chronic continuous opioid use Anticoagulation: ASA Narrative: She presented with chronic low back pain secondary to combination of lumbar spondylosis, lumbar degenerative disease and a component of failed back surgery syndrome following a posterior fusion L5-S1. MRI lumbar spine reviewed and shows recurrent degenerative changes resulting in severe right foraminal narrowing at L5-S1. There is also additional multilevel degenerative changes throughout the rest of her lumbar spine. She is status post lumbar medial branch nerve RFA, bilateral L1, L2, L3 on 01/21/2024. She endorses 95% relief of her low back pain following the ablation. As long as she achieves at least 6 months duration of relief we can certainly repeat this in the future as needed. She also is dealing with trigeminal neuralgia and vertigo symptoms. She follows closely with neurology at [facility] for treatment of trigeminal neuralgia and dizziness. Unfortunately she sustained a fall on 03/16/2024 and was evaluated in the ER at that time and was diagnosed with right rib fractures with displaced fractured ribs 3 through 5 and nondisplaced rib fractures 6 through 8. She states her pain from her rib fractures is now resolved. Analgesia: Patient has adequate analgesia with the use of current opioid pain medication. Activities of Daily Living: Patient's activities of daily living and psychological functioning have improved sufficiently with use of the current opioid medication. Adverse Effects: Patient reports no adverse effects with use of the opioid pain medication. Aberrant Drug-Taking Behavior: Patient has demonstrated no aberrant drug taking behaviors with no deviation from prescription. She has tried and failed tramadol secondary to side effects.We did trial a course of opioid cycling from methadone to [place] however she did not tolerate [place] as this caused dizziness and vomiting. EKG 06/06/24: Qtc 401 Plan: Medications: Continue methadone 7.5 mg twice daily as needed Follow-up: Return in about 3 months (around 11/10/2024) for Follow-up. Compliance Pain Contract Signed: 09/28/23 OARRS/NARxCheck: 08/10/24 Drug Screen/Pill Count History: UDS 08/10/24: ordered UDS 04/13/24: appropriate UDS 01/01/24: appropriate UDS 09/28/23: appropriate Narcan offered/ordered: 08/10/24 Opioid Risk Tool (ORT): Gender Male or Female: F (01/01/2024 9:00 AM) Family History of Substance Abuse (Alcohol): 0 (01/01/2024 9:00 AM) Family History of Substance Abuse (Illegal Drugs): 0 (01/01/2024 9:00 AM) Family History of Substance Abuse (Prescription Drugs): 0 (01/01/2024 9:00 AM) Personal History of Substance Abuse (Alcohol): 0 (01/01/2024 9:00 AM) Personal History of Substance Abuse (Illegal Drugs): 0 (01/01/2024 9:00 AM) Personal History of Substance Abuse (Prescription Drugs): 0 (01/01/2024 9:00 AM) History of Preadolescent Sexual Abuse: 0 (01/01/2024 9:00 AM) Psychological Disease: 0 (01/01/2024 9:00 AM) Psychological Disease (Depression): 1 (01/01/2024 9:00 AM) Total : 1 (01/01/2024 9:00 AM) Total Score Risk Category: Low Risk (0-3) (01/01/2024 9:00 AM) Oswestry Disability Index (EZEQUIEL): Oswestry Low Back Disability Index My BACK PAIN at the moment is: 1 (01/01/2024 9:00 AM) Personal care: 1 (01/01/2024 9:00 AM) Lifitn (01/01/2024 9:00 AM) Walkin (01/01/2024 9:00 AM) Sittin (01/01/2024 9:00 AM) Standin (01/01/2024 9:00 AM) Sleepin (01/01/2024 9:00 AM) Sex Life: 5 (01/01/2024 9:00 AM) Social Life: 3 (01/01/2024 9:00 AM) Travelin (01/01/2024 9:00 AM) Oswestry Score: 22 (01/01/2024 9:00 AM) Current Opioid Misuse Measure (COMM): Current Opioid Misuse Measure (COMM) In the past 30 days, how often have you had trouble with thinking clearly or had memory problems?: 2 (05/12/2024 1:00 PM) In the past 30 days, how often do people complain that you are not completing necessary tasks? (i.e., doing things that need to be done, such as going to class, work or appointments) : 0 (05/12/2024 1:00 PM) In the past 30 days, how often have you had to go to someone other than your prescribing physician to get sufficient pain relief from medications? (i.e., another doctor, the Emergency Room, friends, street sources): 0 (05/12/2024 1:00 PM) In the past 30 days, how often have you taken your medications differently from how they are prescribed?: 0 (05/12/2024 1:00 PM) In the past 30 days, how often have you seriously thought about hurting yourself?: 0 (05/12/2024 1:00 PM) In the past 30 days, how much of your time was spent thinking about opioid medications (having enough, taking them, dosing schedule, etc.)?: 0 (05/12/2024 1:00 PM) In the past 30 days, how often have you been in an argument?: 0 (05/12/2024 1:00 PM) In the past 30 days, how often have you had trouble controlling your anger (e.g., road rage, screaming, etc.)?: 0 (05/12/2024 1:00 PM) In the past 30 days, how often have you needed to take pain medications belonging to someone else?: 0 (05/12/2024 1:00 PM) In the past 30 days, how often have you been worried about how you're handling your medications?: 0 (05/12/2024 1:00 PM) In the past 30 days, how often have others been worried about how you're handling your medications?: 0 (05/12/2024 1:00 PM) In the past 30 days, how often have you had to make an emergency phone call or show up at the clinic without an appointment?: 0 (05/12/2024 1:00 PM) In the past 30 days, how often have you gotten angry with people?: 1 (05/12/2024 1:00 PM) In the past 30 days, how often have you had to take more of your medication than prescribed?: 0 (05/12/2024 1:00 PM) In the past 30 days, how often have you borrowed pain medication from someone else?: 0 (05/12/2024 1:00 PM) In the past 30 days, how often have you used your pain medicine for symptoms other than for pain (e.g., to help you sleep, improve your mood, or relieve stress)?: 0 (05/12/2024 1:00 PM) In the past 30 days, how often have you had to visit the Emergency Room?: 0 (05/12/2024 1:00 PM) Total Score: 3 (05/12/2024 1:00 PM) COMM: negative If chronic opioids were prescribed, the risk of chronic opioid therapy includes, but not limited constipation, nausea, vomiting, hormonal changes, osteoporosis, developing a tolerance, dependence or addiction to the medication and the possibility of overdose and . Prior to initiating chronic opioid therapy, patient failed many non-opioid therapies including PT, injections/pain procedures, NSAIDs, Tylenol, muscle relaxers and nerve medications. The goal of opioid therapy is to reduce their chronic pain and improve their functional capacity and quality of life. The lowest effective dose will be utilized for the shortest duration possible. Weaning of opioids will always be considered whenever possible. The patient can NOT mix opioids with other sedating medications or substances including marijuana, benzodiazepines, muscle relaxers, nerve medication and alcohol. The patient can only take medication as prescribed. The patient can NOT sell, share or give away their medication. The patient must lock their medication in a safe location away from children and other family members. If patient has a history of sleep apnea or COPD, they are at increased risk of respiratory depression, overdose and given their underlying disease process. It is important to continue to using their CPAP and supplemental oxygen as prescribed. Patient should NOT take their pain medication if they have a respiratory illness as this puts them at increased risk of respiratory depression, overdose and . Narcan is the reversal agent for an opioid overdose. This should always be next to your opioid medication in the event of an opioid overdose. Narcan prescription was ordered upon initiation of chronic opioid therapy and will be offered or ordered at every follow-up visit or sooner if patient requests. Please refer to instructions on medication packet for proper use. Please discuss with your pharmacist if you have any further questions. Patient agrees to submit to drugs screens and pill counts as requested to ensure compliance and rule out any diversion, medication overuse, inappropriately taking other prescriptions medications or use of illicit substances. Patient understands if either a drug screen or pill count is inappropriate, they will be discharged from the practice. They have agreed to this by way of our mutually signed pain contract scanned into EMR. If a pain procedure was ordered, the risks of the procedure include, but not limited to, worsening pain, failure to improve pain, bleeding, infection, nerve injury/paralysis, and headache. The benefits of the procedure included reduction of pain, improvement in functional status and improvement in ability to perform activities of daily living. If steroid is given, this can increase blood sugar (if diabetic) and blood pressure (if history of high blood pressure) for several days following the injection.Patient should check both blood pressure and blood sugar regularly and if abnormal should follow-up with their primary care physician. If patient takes a blood thinner or anti-platelet medication, we will request written permission from the managing physician to hold the blood thinner or anti-platelet medication per the LICO guidelines. If the managing physician does not give approval to hold the medication for the duration requested, the procedure will be cancelled. Holding blood thinner or anti-platelet medication can result in increased risk of stroke, heart attack or even when approval by the managing physician is given. History of Present Illness / Review of Systems Reason for Visit: Follow-up Pain location: low back Current pain Level: 0 Worst pain Level: 10 Pain description: no pain today. 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 prior biopsies no dysplasia last biopsies 08/2014 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 Rick thompson. Dr Hinds BLADDER REPAIR 1989 CATARACT EXT/ECCE Bilateral 2011 Dr [place] CHOLECYSTECTOMY CYST REMOVAL Right 2000 cyst removal from rt breast-benign DILATION AND CURETTAGE (D AND C) 1970 x 2 EGD 01/01/2015 Dr. ZavalaXqhucr-Ajzraihnu-Dknsntr's esophagus EGD 08/2014 Dr. Vinicius RamachandranL-Rqxodklmk-Ccdvkcu's esophagitis biopsies negative for dysplasia. ESOPHAGOGASTRODUODENOSCOPY 01/04/2018 Dr. Zavala -biopsies performed-Kelly's esophagitis-carcinoid tumor posterior wall duodenum FRACTURE SURGERY Right Plates and screws in rt arm after fracture. dr Dolan [facility] LEFT HEART CATH N/A 08/23/2018 Procedure: Left Heart Cath; Surgeon: Glen Fair MD; Location: [facility]; Service: Cardiovascular HYSTERECTOMY 1975 KIDNEY SURGERY 1968 had exploratory surgery d/t floating kidney Dx KNEE SURGERY Left 1997 left knee arthoscopy LUMPECTOMY Left 1989 benign ORIF HIP GAMMA NAIL Right 04/02/2020 IN DSTR NROLYTC AGNT PARVERTEB FCT ADDL LMBR/SACRAL Bilateral 01/21/2024 Procedure: Lumbar medial branch nerve radiofrequency ablation, bilateral lumbar 1-2-3; Surgeon: Jake Navarro DO; Location: Main OR; Service: Pain Management IN DSTR NROLYTC AGNT PARVERTEB FCT SNGL LMBR/SACRAL Bilateral 01/21/2024 Procedure: Lumbar medial branch nerve radiofrequency ablation, bilateral lumbar 1-2-3; Surgeon: Jake Navarro DO; Location: Main OR; Service: Pain Management IN NJX DX/THER AGT PVRT FACET JT LMBR/SAC 1 LEVEL Bilateral 06/18/2023 Procedure: Lumbar medial branch nerve blocks, bilateral lumbar 2-3-4; Surgeon: Jake Navarro DO; Location: Main OR; Service: Pain Management IN NJX DX/THER AGT PVRT FACET JT LMBR/SAC 1 LEVEL Bilateral 07/02/2023 Procedure: Lumbar medial branch nerve blocks, bilateral lumbar 2-3-4; Surgeon: Jake Navarro DO; Location: Main OR; Service: Pain Management SQUAMOUS CELL CARCINOMA EXCISION x4 TOTAL KNEE ARTHROPLASTY Left 2013 dr dolan TUMOR REMOVAL 2012 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 Allergies Allergies: Aspirin; Bacitracin zinc-polymyxin b; Codeine; Diphenhydramine; Gabapentin; Latex, natural rubber; Zrrgrlpu-qwjnibzzpiz-pgxjqegqz; Adhesive tape-silicones; Bacitracin; Carbamazepine; Hydrocortisone; Lidocaine; and Neomycin Medications Current Outpatient Medications Medication Instructions aspirin (ECOTRIN ORAL) Take by mouth . atorvastatin (LIPITOR) 40 mg, Oral, Nightly colestipoL (COLESTID) 1 gram tablet No dose, route, or frequency recorded. D-MANNOSE ORAL DULoxetine (CYMBALTA) 30 mg, Oral, Daily, Total of 90 mg with the 60 mg script estradioL (ESTRACE) 2 g, Vaginal, Daily furosemide (LASIX) 20 mg, Oral, Daily lamoTRIgine (LAMICTAL) 200 mg, Oral, Daily losartan (COZAAR) 50 mg, Oral, Daily methadone (DOLOPHINE) 7.5 mg, Oral, 2 times daily, (Days supply per fill: 30) MULTIVIT-MIN/IRON/FOLIC/LUTEIN (CENTRUM SILVER WOMEN ORAL) 1 tablet, Daily naloxone (NARCAN) 4 mg/actuation Amanda Administer 1 spray into one nostril for known or suspected opioid overdose. If patient worsens or does not respond, may repeat in 2-3 minutes. nitroGLYCERIN (NITROSTAT) 0.4 mg, Sublingual, Every 5 min PRN, , if no relief after 3 doses call 911 pantoprazole (PROTONIX) 40 mg, Oral, Daily vibegron (Gemtesa) 75 mg Tab Take by mouth . Social History Social History Socioeconomic History Marital status: Number of children: 2 Years of education: 12 Tobacco Use Smoking status: Former Current packs/day: 0.00 Types: Cigarettes Quit date: 04/03/1976 Years since quittin.3 Passive exposure: Never Smokeless tobacco: Never Vaping Use Vaping status: Never Used Substance and Sexual Activity Alcohol use: No Drug use: No Sexual activity: Never Social Drivers of Health Financial Resource Strain: Low Risk (03/16/2023) Overall Financial Resource Strain (CARDIA) Difficulty of Paying Living Expenses: Not hard at all Food Insecurity: No Food Insecurity (07/08/2023) Hunger Vital Sign Worried About Running Out of Food in the Last Year: Never true Ran Out of Food in the Last Year: Never true Transportation Needs: No Transportation Needs (07/08/2023) PRAPARE - Transportation Lack of Transportation (Medical): No Lack of Transportation (Non-Medical): No Physical Activity: Insufficiently Active (10/15/2021) Exercise Vital Sign Days of Exercise per Week: 2 days Minutes of Exercise per Session: 20 min Stress: Stress Concern Present (10/15/2021) Citizen Of [place] [employer] - Occupational Stress Questionnaire Feeling of Stress : To some extent Social Connections: Moderately Isolated (10/15/2021) Social Connection and Isolation Panel [NHANES] Frequency of Communication with Friends and Family: Twice a week Frequency of Social Gatherings with Friends and Family: Once a week Attends [employer] Services: 1 to 4 times per year Active Member of Clubs or Organizations: No Attends Club or Organization Meetings: Patient declined Marital Status: Housing Stability: Low Risk (07/08/2023) Housing Stability Vital Sign Unable to Pay for Housing in the Last Year: No Number of Places Lived in the Last Year: 1 Unstable Housing in the Last Year: No . Family History family history includes Bipolar disorder in her daughter; Dementia in her sister; Diabetes in her brother, maternal uncle, mother, sister, and son; Heart disease in her brother, father, and mother; Stroke in her father. Physical Exam PACU Vitals 08/10/24 1300 BP: (!) 152/73 Pulse: 86 SpO2: 96% General: No acute distress, atraumatic Cardiovascular: normal rate, no edema Respiratory: non-labored respirations Psychiatric: appropriate mood and affect Lumbar Spine Exam: Lumbar ROM decreased in extension left rotation right rotation Lumbar paraspinal tenderness noted bilaterally Strength: RLE: Hip Flex 5/5 Knee Flex 5/5 Knee Ext 5/5 Ankle Dorsiflex 5/5 Ankle Plantar Flex 5/5 LLE: Hip Flex 5/5 Knee Flex 5/5 Knee Ext 5/5 Ankle Dorsiflex 5/5 Ankle Plantar Flex 5/5 Axial Loading: positive bilaterally No ankle clonus bilaterally Bilateral ankle swelling noted, left greater than right-at baseline Other Tests Imaging All imaging and tests below were personally reviewed by me unless otherwise indicated. MRI lumbar spine 04/22/23: FINDINGS: There are 5 lumbar type vertebrae. The spine is imaged from T11 through distal sacrum on sagittal sequences. L5-S1 laminectomy and posterior fusion. Straightening to slight reversal of the expected lumbar lordosis with apex at L2. Mild dextrocurvature apex at L2. No spondylolisthesis. Facets are anatomically aligned. L2-L3 adjacent endplate edema. Multilevel adjacent endplate mixed edema and fatty changes. Vertebral body heights are well-maintained. The visualized cord is within normal limits. The conus medullaris terminates at L1. Degenerative changes as follows: T12-L1: Intervertebral disc height loss and desiccation. Diffuse bulge and facet arthropathy. Minimal thecal sac and mild bilateral neural foraminal narrowing. L1-L2: Intervertebral disc height loss and desiccation with adjacent endplate Modic type 2 changes. Disc osteophyte complex and facet arthropathy. Mild thecal sac narrowing. Lpca-ze-vvlrcjdq left and mild right neural foraminal narrowing. L2-L3: Intervertebral disc height loss and desiccation with adjacent endplate Modic type 1 changes. Disc osteophyte complex and facet arthropathy. Moderate thecal sac narrowing. Moderate left and mild right neural foraminal narrowing. L3-L4: Intervertebral disc height loss and desiccation with adjacent endplate Modic type 2 changes. Disc osteophyte complex and facet arthropathy. Xtmb-ym-xsgfbusf thecal sac and mild bilateral neural foraminal narrowing. L4-L5: Intervertebral disc height loss and desiccation with adjacent endplate Modic type 2 changes. Disc osteophyte complex and facet arthropathy. Sblg-ip-kfawhpjh thecal sac narrowing. Moderate right and iorz-cn-dbcptgqd left neural foraminal narrowing. L5-S1: Intervertebral disc height loss and desiccation. L5 inferior endplate Schmorl's node with adjacent endplate Modic type 2 changes. Disc osteophyte complex and facet arthropathy. Thecal sac is decompressed. Severe right and mild left neural foraminal narrowing. Paravertebral structures are unremarkable. IMPRESSION: 1. Surgical changes of L5-S1 laminectomy and posterior fusion. Recurrent degenerative changes resulting in severe right neural foraminal narrowing at this level. 2. Additional multilevel degenerative changes with up to moderate thecal sac narrowing as described. Please correlate with distribution of symptoms and refer to findings section level by level detail. XR lumbar spine 09/02/22: FINDINGS: Five views including lateral flexion and extension. 24 degrees of dextroscoliosis, apex at L2. Status post L5-S1 posterior fusion and decompression. The right L5 transpedicular screw encroaches upon the L4/5 intervertebral disc space. No evidence of hardware loosening. Vertebral body heights are preserved. Severe intervertebral disc space height loss throughout the lumbar spine with endplate osteophytes. The bones are demineralized. Vascular calcifications. IMPRESSION: Status post L5-S1 posterior fusion in similar alignment. Multilevel lumbar spondylosis with 24 degrees of dextroscoliosis, also similar to previous. Thank you for your kind referral. Please do not hesitate to contact me with any questions. Jake Navarro D.O. Interventional Pain Management [facility] This note was generated using Evolve IP voice recognition software in an effort to expedite communication. Please excuse any resultant grammatical or wording errors. Reason for Visit: Follow-up Pain location: low back Current pain Level: 0 Worst pain Level: 10 Pain description: no pain today. Radiation: No Sensory changes: No Motor changes: No Duration of pain: >6 months Increases pain: no pain Decreases pain: surgery Patient's Goals: decrease pain, decrease pain with activity, improve ability to perform activities of daily living, improve quality of life, improve sleep, stand longer, and walk further Acceptable level of pain: 0 Additional concerns: none Focused Review of Systems: Loss of bladder control: Denies Loss of bowel control: Denies Saddle anesthesia: Denies Recent falls: Denies Constipation: Denies documented in this encounter [facility] 08-04-2024 History of Present illness Narrative Documentation received for pt. Provider reviewed and signed. Faxed back to number provided and sent to [facility] to be scanned to pt chart. documented in this encounter [facility] 07-27-2024 Telephone encounter Note Pt calling joaquín states she needs a refill sent to pharmacy running very low [facility] 07-27-2024 Miscellaneous Notes Pt calling joaquín states she needs a refill sent to pharmacy running very low documented in this encounter [facility] 07-22-2024 History of Present illness Narrative Documentation received for pt. Provider reviewed and signed. Faxed back to number provided and sent to [facility] to be scanned to pt chart. documented in this encounter [facility] 07-18-2024 Instructions Claudine Majano MD - 07/18/2024 1:58 PM EDT Problem List Items Addressed This Visit Musculoskeletal and Integument Osteoporosis Other At moderate risk for fall Spinal stenosis, 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 neurogenic claudication Relevant Orders Ambulatory referral to Home Health Dizziness Relevant Orders TSH with Reflex Free T4 Lipid Panel Comprehensive Metabolic Panel CBC and Differential Ambulatory referral to Neurology Medicare annual wellness visit, subsequent - Primary Does all ADLs, needs help with iADLs Has had hearing aids and has been wearing them with no concerns. Having difficulty driving at night , wears glasses. Continues to follow-up with ophthalmology, significant concern for memory dementia symptoms. Moderate risk falls and alternate between walker and cane Wishes to be DNR , forms given Has appointed both her kids as her DPOA for medical decision Moderate major depression (HCC) Other Visit Diagnoses Dementia, unspecified dementia severity, unspecified dementia type, unspecified whether behavioral, psychotic, or mood disturbance or anxiety (HCC) Relevant Orders Ambulatory referral to Neurology Abnormal findings on diagnostic imaging of other specified body structures Relevant Orders TSH with Reflex Free T4 Abnormal finding of blood chemistry, unspecified Relevant Orders Lipid Panel At high risk for falls Relevant Orders Ambulatory referral to Home Health If any referrals were placed at the time of your visit please allow 2 weeks for processing. If you haven't heard from anyone within 2 weeks please contact my office so we can look into the status of your referral. If you were given any labs today please ensure they are completed according to the directions given. Once labs are completed please allow 1-2 weeks for us to receive the results, review them, and let you know what steps, if any, are needed next. If you haven't heard from us after that please call to inquire. If labs were ordered to be done PRIOR to your next visit we will discuss the results at the time of your office visit. If any procedures or imaging studies were ordered that must be prior authorized please give us 2 weeks to get them approved. Once approved someone should call you to schedule them or give you a date and time that they were scheduled for. If you haven't heard anything within 2 weeks of the office visit please call the office so we can look into their status. Customer Service/Billing Questions: [phone] [facility] Assistance: [phone] or [phone] Financial Assistance: [phone] or [phone] Thursday 7 am to 5 pm Thursday 7 am to 5 pm Thursday 7 am to 5 pm Thursday 8 am to 2 pm documented in this encounter [facility] 07-18-2024 Evaluation + Plan note Associated Problem(s): Medicare annual wellness visit, subsequent Does all ADLs, needs help with iADLs Has had hearing aids and has been wearing them with no concerns. Having difficulty driving at night , wears glasses. Continues to follow-up with ophthalmology, significant concern for memory dementia symptoms. High risk falls stressed on using walker. Wishes to be DNR , forms given Has appointed both her kids as her DPOA for medical decision [facility] 07-18-2024 Miscellaneous Notes Associated Problem(s): Medicare annual wellness visit, subsequent Does all ADLs, needs help with iADLs Has had hearing aids and has been wearing them with no concerns. Having difficulty driving at night , wears glasses. Continues to follow-up with ophthalmology, significant concern for memory dementia symptoms. High risk falls stressed on using walker. Wishes to be DNR , forms given Has appointed both her kids as her DPOA for medical decision documented in this encounter [facility] 07-18-2024 History of Present illness Narrative Subjective: Cat Carroll is a 89 y.o. female here for a Medicare Annual Wellness Visit. HPI History of Present Illness Cat Carroll is an 89 year old female with vertigo and arthritis who presents with worsening dizziness and leg swelling. She experiences worsening dizziness, previously noted as vertigo, severe enough to cause falls. The dizziness is exacerbated by positional changes, such as moving from sitting to standing, and is described as a sensation of the room spinning. No hearing loss or tinnitus is present. She has been taking Lasix once a day, but no improvement has been noted. She reports worsening swelling in her feet and legs, with the skin turning blue and becoming sore. The swelling extends from her foot up to her ankle. She currently wears mild compression stockings. Small red blisters appear intermittently on her legs. There has been a change in her medication regimen, specifically regarding Cymbalta (duloxetine). She was previously taking two pills, totaling 90 mg, but has been reduced to 60 mg. She has not noticed any improvement in her symptoms with this change and expresses concern about the dosage and its potential impact on her dizziness and memory. She has a history of falls, with the most recent occurring two weeks ago when she lost her balance and hit a footstool, resulting in a bump on her face. She feels more stable when she stands slowly and waits for the dizziness to pass before walking. She is in contact with a counselor from [facility] and has previously received support from home health services. She mentions feeling more anxious in the past but has worked to manage it. She has not heard from her daughter since before [place], which has been difficult for her. She maintains regular contact with her son, who checks on her daily and visits every Thursday. She is not currently driving and relies on the [place] [facility] for transportation. She has a office support clerk who assists with cleaning every and is available on Tuesdays if needed. Review of Systems Reviewed by Provider: Care Team Patient Care Team: Claudine Majano MD as PCP - General (Family Medicine) Marck Peng Jr., DO (Otolaryngology (ENT)) Pharmacy [facility] Equipment [facility] (DME) [id number] - [place], [place] - [address] [place] [phone] [facility] - [place], [place] - [address] [place] [id number] [facility] - [place], [place] - [address] [place] [address] Medicare Risk Assessment Do you have an Advanced Directive (Living Will and/or Durable Power of Security Field Supervisor for Health Care)? If not, would you like more information about Advanced Directives?: Yes (unsure if alyssa file.) What is your exercise level?: Moderate (like brisk walking) What is your diet?: Regular Can you prepare your own meals?: Yes Do you have trouble with finding transportation?: (!) Yes Because of any health problems, do you need the help of another person with your personal care needs? (For example, eating, bathing, dressing, or getting around the house.): No Does your home have any of the following?: (!) Throw Rugs Does your home have grab bars in bathrooms or handrails on stairs and steps?: Both grab bars in the bathroom and Handrails on the stairs During the past four weeks, how would you rate your health in general?: Very Good Whether or not you use a hearing aid, do you think you have a hearing problem or do others think you have a hearing problem?: (!) Yes Whether or not you use glasses or contacts, do you have difficulty driving, watching television, reading, or doing any of your daily activities because of your eyesight?: (!) Yes (pt does not drive) In the past six months, have you had an unexplained weight loss of 10 pounds or more?: No Do you take your medications as prescribed?: I do not miss doses of my medications During the past four weeks, how much have you been bothered by emotional problems such as feeling anxious, depressed, irritable, sad, or downhearted and blue?: Not at all During the past four weeks, has your physical and emotional health limited your social activites with family, friends, neighbors, or groups? : Not at all Provider/Supplier Name and Specialty: PCP: Dr. Majano; Urologist: Shantel Rasmussen MD ([place], [place]); Water Valve Mechanic: [facility] Falls Risk Assessment Is Patient Ambulatory?: Y Fell in past year: 2 (Yes) How many falls in the past year?: 2 Did any of these falls result in an injury?: Yes Unsteady when walks: 1 (Yes) Worried about fallin (No) Advised to use cane/walker?: 2 (Yes) Type of assistive device: CANE/WALKER Holds onto furniture/case: 0 (No) Uses hands to stand up from a chair: 1 (Yes) Trouble stepping onto curb: 0 (No) Rushes to toilet: 1 (Yes) Lost feeling in feet: 0 (No) Medicine makes me light-headed: 1 (Yes) Medicine for sleep or mood: 1 (Yes) Often feel sad/depressed: 1 (Yes) Patient Self Risk Assessment Score: 10 Medicare Mini Cog Step 1: Three Word Registration Version Used: Version 6: Alexia [place] Step 2: Clock Drawing Step 2 score: (!) Inability or refusal to draw a clock - 0 points Step 3: Three Word Recall Record patient's answers to the right: Bettina garcia Step 3: Three Word Recall Score: 2 Words Recalled Total score = Word Recall score + Clock Draw score A cut point of <3 on the Mini-Cog has been validated for dementia screening, but many individuals with clinically meaningful cognitive impairment will score higher. A cut point of <4 may indicate a need for further evaluation of cognitive status.: (!) 2 5-Year Plan: Health Maintenance Topic Date Due Zoster Vaccines (1 of 2) Never done Respiratory Syncytial Virus Immunization: Risk, 60-74 Risk, or 75+ (1 - 1-dose 75+ series) Never done COVID-19 Vaccine ( - 2023- season) 2023 Medicare Wellness Visit 05/10/2024 Urine (micro)albumin/creatinine ratio - Kidney Disease 12/08/2024 Falls Risk Assessment 07/11/2025 Depression Screening/Follow-Up (PHQ-2/9) 07/11/2025 eGFR - Kidney Disease 07/18/2025 Lipid Panel 07/18/2025 Tetanus: Every 10yrs 12/14/2032 Pneumococcal Vaccine: Age 50+ Completed Influenza Vaccine Completed Dexa Scan Addressed Immunization History Administered Date(s) Administered Influenza IIV3 high dose 65 and Older 01/04/2017 Influenza TIV (IM) 12/10/2016 Influenza, high dose seasonal 11/20/2014, 11/14/2015, 12/10/2016 Pfizer 12+ Years [id number]-sucrose COVID-19 vaccine 07/23/2021 Pfizer SARS-CoV-2 Vaccination 11/01/2020, 11/22/2020 Pneumococcal Conjugate 20-Valent (Prevnar 20) 12/24/2023 Tdap 12/14/2022 influenza HD-IIV3 (FLUZONE HIGH DOSE) 65 years old or greater - syringe 12/24/2023 Objective: BP 117/72 (BP Location: Right arm, Patient Position: Sitting, BP Cuff Size: Adult) Pulse 92 Temp 98.3 F (36.8 C) (Oral) Resp 16 Ht 5' 4 Wt 55.3 kg (122 lb) SpO2 94% BMI 20.94 kg/m Hearing/Vision Screen No results found. Physical Exam Assessment/Plan: Problem List Items Addressed This Visit Musculoskeletal and Integument Osteoporosis Other At moderate risk for fall Spinal stenosis, 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 neurogenic claudication Relevant Orders Ambulatory referral to Home Health Dizziness Relevant Orders TSH with Reflex Free T4 (Completed) Lipid Panel (Completed) Comprehensive Metabolic Panel (Completed) CBC and Differential (Completed) Ambulatory referral to Neurology Medicare annual wellness visit, subsequent - Primary Does all ADLs, needs help with iADLs Has had hearing aids and has been wearing them with no concerns. Having difficulty driving at night , wears glasses. Continues to follow-up with ophthalmology, significant concern for memory dementia symptoms. High risk falls stressed on using walker. Wishes to be DNR , forms given Has appointed both her kids as her DPOA for medical decision Moderate major depression (HCC) Other Visit Diagnoses Dementia, unspecified dementia severity, unspecified dementia type, unspecified whether behavioral, psychotic, or mood disturbance or anxiety (HCC) Relevant Orders Ambulatory referral to Neurology Abnormal findings on diagnostic imaging of other specified body structures Relevant Orders TSH with Reflex Free T4 (Completed) Abnormal finding of blood chemistry, unspecified Relevant Orders Lipid Panel (Completed) At high risk for falls Relevant Orders Ambulatory referral to Home Health Assessment & Plan Dizziness and vertigo Persistent dizziness and vertigo exacerbated by positional changes, possibly due to low blood volume from Lasix and potential inner ear involvement. Recent fall reported. Concerns about Cymbalta affecting dizziness. - Order blood work to assess underlying causes. - Refer to neurology for further evaluation. - Recommend tighter compression stockings. - Transition from cane to walker. - Refer to physical therapy for vestibular rehabilitation and gait training, will attempt through home PT/OT Memory impairment Memory impairment with cognitive testing difficulties. Concerns about duloxetine's impact on memory. No home health support for cognitive issues. MOCA is - Order blood work to assess underlying causes. - Refer to neurology for further evaluation. - Decrease duloxetine to 30 mg daily, eventually coming off of it given no benefit for mood or neuropathic pain Anxiety and depression Managed with current support systems. Concerns about duloxetine affecting mood and dizziness. - Decrease duloxetine to 30 mg daily. Hypertension Blood pressure well-controlled after metoprolol discontinuation and decreasing lasix to once a day through cardiology Arthritis Persistent symptoms contributing to discomfort. Gait and balance issues Not driving, relies on [place] [employer] for transportation. Limited home health support. - Arrange home health physical therapy and occupational therapy evaluation. Follow-up Plans to monitor and address ongoing health concerns. - Schedule follow-up in two months. - Arrange ear wash. After discussing the use of ambient listening and audio recording in generating medical documentation, the patient verbally consented to use of this technology for today's visit. My ongoing relationship with Cat Carroll requires continued responsibility and cognitive effort of being the focal point for all services related to chronic condition(s). Vaccinations today per orders. Vaccination counseling provided including which vaccinations are to be administered today, their indication(s), and potential side effects. All questions answered. CDC vaccine information sheet provided for each vaccine administered. Discussed elevated Body Mass Index (BMI): Advised regular exercise. Discussed elevated Body Mass Index (BMI): Advised healthy and appropriate diet. Rationale: Overweight (Findings) BMI Return in about 2 months (around 09/17/2024). Patient Instructions (the written plan) and additional handouts provided to the patient with their After Visit Summary. documented in this encounter [facility] 07-11-2024 History of Present illness Narrative Spoke to patient at this time, agreeable to completion of wellness visit at next scheduled appointment. [facility] outreach flowsheets completed with patient and filed. Health Maintenance Due Name Date Due Outreach Comments Covid Booster/Zoster Vaccine Not interested. Do you have an Advanced Directive (Living Will and/or Durable Power of Security Field Supervisor for Health Care)? If not, would you like more information about Advanced Directives?: Yes (unsure if alyssa file.) What is your exercise level?: Moderate (like brisk walking) What is your diet?: Regular Can you prepare your own meals?: Yes Do you have trouble with finding transportation?: (!) Yes Because of any health problems, do you need the help of another person with your personal care needs? (For example, eating, bathing, dressing, or getting around the house.): No Does your home have any of the following?: (!) Throw Rugs Does your home have grab bars in bathrooms or handrails on stairs and steps?: Both grab bars in the bathroom and Handrails on the stairs During the past four weeks, how would you rate your health in general?: Very Good Whether or not you use a hearing aid, do you think you have a hearing problem or do others think you have a hearing problem?: (!) Yes Whether or not you use glasses or contacts, do you have difficulty driving, watching television, reading, or doing any of your daily activities because of your eyesight?: (!) Yes (pt does not drive) In the past six months, have you had an unexplained weight loss of 10 pounds or more?: No Do you take your medications as prescribed?: I do not miss doses of my medications During the past four weeks, how much have you been bothered by emotional problems such as feeling anxious, depressed, irritable, sad, or downhearted and blue?: Not at all During the past four weeks, has your physical and emotional health limited your social activites with family, friends, neighbors, or groups? : Not at all Provider/Supplier Name and Specialty: PCP: Dr. Majano; Urologist: Shantel Rasmussen MD ([place], [place]); Water Valve Mechanic: [facility] Is Patient Ambulatory?: Y Fell in past year: 2 (Yes) How many falls in the past year?: 2 Did any of these falls result in an injury?: Yes Unsteady when walks: 1 (Yes) Worried about fallin (No) Advised to use cane/walker?: 2 (Yes) Type of assistive device: CANE/WALKER Holds onto furniture/case: 0 (No) Uses hands to stand up from a chair: 1 (Yes) Trouble stepping onto curb: 0 (No) Rushes to toilet: 1 (Yes) Lost feeling in feet: 0 (No) Medicine makes me light-headed: 1 (Yes) Medicine for sleep or mood: 1 (Yes) Often feel sad/depressed: 1 (Yes) Patient Self Risk Assessment Score: 10 Over the last 2 weeks, how often have you been bothered by any of the following problems? Little interest or pleasure in doing things: Not at all Feeling down, depressed, or hopeless: Not at all PHQ-2 Total Score: 0 Yohannes Espinoza documented in this encounter [facility] 06-13-2024 History of Present illness Narrative Documentation received for pt. Provider reviewed and signed. Faxed back to number provided and sent to [facility] to be scanned to pt chart. documented in this encounter [facility] 06-06-2024 Note Cardiology Clinic Vi sit Heart & Vascular [facility] 06/06/2024 Donna Schroeder MD [address] [facility] [id number] Patient: Cat Carroll Date of : 1935 (89 y.o.) Referring Provider: No ref. provider found PCP: Claudine Majano MD Assessment & Plan Cat Carroll is a 87 y.o. woman with history of CAD/STEMI with HANNAH to the distal RCA in 08/2018, CKD, HTN, and HLD who presents to clinic for follow up. CAD/STEMI - with HANNAH to distal RCA - Denies angina but does have chest pain or seems to be more consistent with GI/GERD. Symptoms have improved with Protonix. She has no symptoms of dyspnea exertion as well. -Continue aspirin 81 mg daily. Metoprolol was discontinued due to hypotension episodes and lightheadedness -Atorvastatin was previously reduced to 40 mg daily. Mild systolic dysfunction with recovery of LVEF-patient does have nonpitting edema of the lower extremities. She also has positional lightheadedness and has had falls. LVEF is improved on most recent echocardiograms. We did discuss reducing Lasix to once a day given her falls and orthostatic lightheadedness. Patient was agreeable to this. Continue losartan 50 mg daily. Taken off of metoprolol due to lightheadedness Hyperlipidemia-LDL at goal-atorvastatin was reduced at the last visit due to significantly decreased LDL. Continue atorvastatin 40 mg daily. Hypertension-medication adjustments as above Return in about 6 months (around 12/06/2024). Donna Schroeder MD [facility] Non-Invasive Cardiology [facility] Heart and Vascular Chief Complaint: Follow-up (Patient has no cardiac concerns ) Subjective Cat Carroll is a 89 y.o. woman with history of CAD/STEMI with HANNAH to the distal RCA in 08/2018, CKD, HTN, and HLD who presents to clinic for follow up. Patient reports that she has been feeling okay from a cardiac standpoint. She does have episodes of chest pain that occur when she lays down. She attributes these to acid reflux. She reports that taking pantoprazole has improved her chest pain episodes. She does not have chest pain with activity or exertion. She denies feeling short of breath. She does have chronic lower extremity swelling but this improves with putting her feet up. She denies PND and orthopnea. Denies palpitations. She has had episodes of lightheadedness with bending over and getting up or with quick position changes. She has had a few falls here recently. She reports that her blood pressure was low and therefore stopped Aldactone at times. Denies any episodes syncope. Reports that she has been feeling okay. She does report having episodes of chest pain which occur at night. She reports that these usually go away after 10 minutes. She has had 2 episodes during the day which occur after eating. She denies having chest pain with her daily activities or working in the yard. She reports that these episodes of chest pain are in the middle of her chest. She denies feeling short of breath. She recently developed lower extremity swelling for which she was started on Lasix. An echocardiogram was ordered by primary care. She denies PND and orthopnea however reports that she has slept on an incline for years due to her acid reflux. She denies palpitations. She does have lightheadedness. She denies any episodes of syncope. She is tolerating aspirin well without any bleeding issues. Review of Systems: Constitution: Negative. HENT: Negative. Cardiovascular: As above. Respiratory: As above. Endocrine: Negative. Skin: Negative. Musculoskeletal: Negative. Gastrointestinal: Negative. Genitourinary: Negative. Neurological: Negative. Psychiatric/Behavioral: Negative. 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 prior biopsies no dysplasia last biopsies 08/2014 Benign carcinoid tumor of the duodenum 2014 Cancer (HCC) skin cancer-squamous cells removed Chronic kidney disease (CKD), stage III (moderate) (HCC) 09/12/2016 EGFR 43 Fibromyalgia Floating kidney GERD (gastroesophageal reflux disease) 2010 Hypertension 2000 Macular degeneration 2017 Myocardial infarction (HCC) 08/2018 STEMI Osteoporosis 2010 Thyroid nodule 05/24/2024 Trigeminal neuralgia of left side of face 2005 Vertigo Vitamin D deficiency 2016 Past Surgical History: Procedure Laterality Date BACK SURGERY 2013 fusion and rods placed in lower back. Rick thompson. Dr Hinds BLADDER REPAIR 1990 CATARACT EXT/ECCE Bilateral 2011 Dr arambula CHOLECYSTECTOMY CYST REMOVAL Right 2000 cyst removal from rt breast-benign DILATION AND CURETTAGE (D AND C) 1970 x 2 EGD 01/01/2015 Dr. AlemanHvxnpl-Hksrohkwm-Lbyvxoq's esophagus EGD 08/2014 Dr. Vinicius Pruett-Barrett's esophagitis biopsies negative for dysplasia. ESOPHAGOGASTRODUODENOSCOPY 01/04/2018 Dr. Zavala - (more content not included)... [facility] 06-06-2024 History of Present illness Narrative Cardiology Clinic Visit Heart & Vascular [facility] 06/06/2024 Donna Schroeder MD [address] [place] [id number] Patient: Cat Carroll Date of : 1935 (89 y.o.) Referring Provider: No ref. provider found PCP: Claudine Majano MD Assessment & Plan Cat Carroll is a 87 y.o. woman with history of CAD/STEMI with HANNAH to the distal RCA in 08/2018, CKD, HTN, and HLD who presents to clinic for follow up. CAD/STEMI - with HANNAH to distal RCA - Denies angina but does have chest pain or seems to be more consistent with GI/GERD. Symptoms have improved with Protonix. She has no symptoms of dyspnea exertion as well. -Continue aspirin 81 mg daily. Metoprolol was discontinued due to hypotension episodes and lightheadedness -Atorvastatin was previously reduced to 40 mg daily. Mild systolic dysfunction with recovery of LVEF-patient does have nonpitting edema of the lower extremities. She also has positional lightheadedness and has had falls. LVEF is improved on most recent echocardiograms. We did discuss reducing Lasix to once a day given her falls and orthostatic lightheadedness. Patient was agreeable to this. Continue losartan 50 mg daily. Taken off of metoprolol due to lightheadedness Hyperlipidemia-LDL at goal-atorvastatin was reduced at the last visit due to significantly decreased LDL. Continue atorvastatin 40 mg daily. Hypertension-medication adjustments as above Return in about 6 months (around 12/06/2024). Donna Schroeder MD [facility] Non-Invasive Cardiology [facility] Heart and Vascular Chief Complaint: Follow-up (Patient has no cardiac concerns ) Subjective Cat Carroll is a 89 y.o. woman with history of CAD/STEMI with HANNAH to the distal RCA in 08/2018, CKD, HTN, and HLD who presents to clinic for follow up. Patient reports that she has been feeling okay from a cardiac standpoint. She does have episodes of chest pain that occur when she lays down. She attributes these to acid reflux. She reports that taking pantoprazole has improved her chest pain episodes. She does not have chest pain with activity or exertion. She denies feeling short of breath. She does have chronic lower extremity swelling but this improves with putting her feet up. She denies PND and orthopnea. Denies palpitations. She has had episodes of lightheadedness with bending over and getting up or with quick position changes. She has had a few falls here recently. She reports that her blood pressure was low and therefore stopped Aldactone at times. Denies any episodes syncope. Reports that she has been feeling okay. She does report having episodes of chest pain which occur at night. She reports that these usually go away after 10 minutes. She has had 2 episodes during the day which occur after eating. She denies having chest pain with her daily activities or working in the yard. She reports that these episodes of chest pain are in the middle of her chest. She denies feeling short of breath. She recently developed lower extremity swelling for which she was started on Lasix. An echocardiogram was ordered by primary care. She denies PND and orthopnea however reports that she has slept on an incline for years due to her acid reflux. She denies palpitations. She does have lightheadedness. She denies any episodes of syncope. She is tolerating aspirin well without any bleeding issues. Review of Systems: Constitution: Negative. HENT: Negative. Cardiovascular: As above. Respiratory: As above. Endocrine: Negative. Skin: Negative. Musculoskeletal: Negative. Gastrointestinal: Negative. Genitourinary: Negative. Neurological: Negative. Psychiatric/Behavioral: Negative. 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 prior biopsies no dysplasia last biopsies 08/2014 Benign carcinoid tumor of the duodenum 2015 Cancer (HCC) skin cancer-squamous cells removed Chronic kidney disease (CKD), stage III (moderate) (HCC) 09/12/2016 EGFR 43 Fibromyalgia Floating kidney GERD (gastroesophageal reflux disease) 2009 Hypertension 2000 Macular degeneration 2017 Myocardial infarction ([facility]) 08/2018 STEMI Osteoporosis 2010 Thyroid nodule 05/24/2024 Trigeminal neuralgia of left side of face 2005 Vertigo Vitamin D deficiency 2016 Past Surgical History: Procedure Laterality Date BACK SURGERY 2014 fusion and rods placed in lower back. Rick thompson. Dr Hinds BLADDER REPAIR 1989 CATARACT EXT/ECCE Bilateral 2011 Dr arambula CHOLECYSTECTOMY CYST REMOVAL Right 2000 cyst removal from rt breast-benign DILATION AND CURETTAGE (D AND C) 1970 x 2 EGD 01/01/2015 Dr. ZavalaRxgazg-Fofzwmmur-Uhmghsl's esophagus EGD 08/2014 Dr. Vinicius RamachandranS-Pdrpgknap-Esjmndt's esophagitis biopsies negative for dysplasia. ESOPHAGOGASTRODUODENOSCOPY 01/04/2018 Dr. Zavala -biopsies performed-Kelly's esophagitis-carcinoid tumor posterior wall duodenum FRACTURE SURGERY Right Plates and screws in rt arm after fracture. dr Dolan [facility] LEFT HEART CATH N/A 08/23/2018 Procedure: Left Heart Cath; Surgeon: Glen Fair MD; Location: [facility]; Service: Cardiovascular HYSTERECTOMY 1975 KIDNEY SURGERY 1969 had exploratory surgery d/t floating kidney Dx KNEE SURGERY Left 1997 left knee arthoscopy LUMPECTOMY Left 1989 benign ORIF HIP GAMMA NAIL Right 04/02/2020 IN DSTR NROLYTC AGNT PARVERTEB FCT ADDL LMBR/SACRAL Bilateral 01/21/2024 Procedure: Lumbar medial branch nerve radiofrequency ablation, bilateral lumbar 1-2-3; Surgeon: Jake Navarro DO; Location: Main OR; Service: Pain Management IN DSTR NROLYTC AGNT PARVERTEB FCT SNGL LMBR/SACRAL Bilateral 01/21/2024 Procedure: Lumbar medial branch nerve radiofrequency ablation, bilateral lumbar 1-2-3; Surgeon: Jake Navarro DO; Location: Main OR; Service: Pain Management IN NJX DX/THER AGT PVRT FACET JT LMBR/SAC 1 LEVEL Bilateral 06/18/2023 Procedure: Lumbar medial branch nerve blocks, bilateral lumbar 2-3-4; Surgeon: Jake Navarro DO; Location: Main OR; Service: Pain Management IN NJX DX/THER AGT PVRT FACET JT LMBR/SAC 1 LEVEL Bilateral 07/02/2023 Procedure: Lumbar medial branch nerve blocks, bilateral lumbar 2-3-4; Surgeon: Jake Navarro DO; Location: Main OR; Service: Pain Management SQUAMOUS CELL CARCINOMA EXCISION x4 TOTAL KNEE ARTHROPLASTY Left 2013 dr dolan TUMOR REMOVAL 2011 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 Family History Problem Relation Age of Onset Diabetes Mother Heart disease Mother Heart disease Father Stroke Father Diabetes Sister Dementia Sister Heart disease Brother Diabetes Brother Diabetes Maternal Uncle Bipolar disorder Daughter Diabetes Son Cancer Neg Hx Aneurysm Neg Hx Seizures Neg Hx Social History Tobacco Use Smoking Status Former Current packs/day: 0.00 Types: Cigarettes Quit date: 04/03/1976 Years since quittin.2 Passive exposure: Never Smokeless Tobacco Never Allergies: Aspirin; Bacitracin zinc-polymyxin b; Codeine; Diphenhydramine; Gabapentin; Latex, natural rubber; Xehlnrau-dnyfrnuvpcu-ovkkihkvb; Adhesive tape-silicones; Bacitracin; Carbamazepine; Hydrocortisone; Lidocaine; and Neomycin HOME Medications: Current Outpatient Medications on File Prior to Visit Medication Sig aspirin (ECOTRIN ORAL) Take by mouth . atorvastatin (LIPITOR) 40 MG tablet Take 1 (one) tablet (40 mg total) by mouth nightly . colestipoL (COLESTID) 1 gram tablet D-MANNOSE ORAL DULoxetine (CYMBALTA) 30 MG capsule Take 1 (one) capsule (30 mg total) by mouth daily Total of 90 mg with the 60 mg script . estradioL (ESTRACE) 0.01 % (0.1 mg/gram) vaginal cream Insert 2 (two) g into the vagina daily . furosemide (LASIX) 20 MG tablet Take 1 (one) tablet (20 mg total) by mouth 2 (two) times a day . lamoTRIgine (LAMICTAL) 200 MG tablet Take 1 (one) tablet (200 mg total) by mouth daily . losartan (Cozaar) 50 MG tablet Take 1 (one) tablet (50 mg total) by mouth daily . methadone (DOLOPHINE) 5 MG tablet Take 1.5 (one and a half) tablets (7.5 mg total) by mouth 2 (two) times a day (Days supply per fill: 30) Start: 05/25/24. MULTIVIT-MIN/IRON/FOLIC/LUTEIN (CENTRUM SILVER WOMEN ORAL) Take 1 tablet by mouth daily. naloxone (NARCAN) 4 mg/actuation Amanda Administer 1 spray into one nostril for known or suspected opioid overdose. If patient worsens or does not respond, may repeat in 2-3 minutes. . nitroGLYCERIN (NITROSTAT) 0.[address] 1 (one) tablet (0.4 mg total) under the tongue every 5 (five) minutes as needed for chest pain , if no relief after 3 doses call 911 . pantoprazole (PROTONIX) 40 MG tablet Take 1 (one) tablet (40 mg total) by mouth daily . spironolactone (ALDACTONE) 25 MG tablet Take 1 (one) tablet (25 mg total) by mouth daily . UNIV COMP RX: AMITRIPTYLINE 2%, BACLOFEN 2%, GABAPENTIN 5%, LIDOCAINE 5% EMOLLIENT CREAM Apply 0.5 g topically 3 (three) times a day as needed . vibegron (Gemtesa) 75 mg Tab Take by mouth . No current facility-administered medications on file prior to visit. Physical Examination: BP 136/78 (BP Location: Left arm, Patient Position: Sitting, BP Cuff Size: Adult) Pulse 90 Ht 5' 4 Wt 53.1 kg (117 lb) SpO2 96% BMI 20.08 kg/m Constitutional: Appears well-developed and well-nourished. No distress. HENT: Head: Normocephalic and atraumatic. Eyes: Conjunctivae and EOM are normal. No scleral icterus. Neck: Normal range of motion. Cardiovascular: Normal rate and regular rhythm. Exam reveals no gallop and no friction rub. No murmur heard. No JVP elevation. Bilateral nonpitting edema Pulmonary/Chest: Effort normal and breath sounds normal. No respiratory distress. No wheezes. No rales. Abdominal: Soft. Bowel sounds are normal. There is no abdominal tenderness. Musculoskeletal: Normal range of motion. Neurological: AOx3, moving all ext. Skin: Skin is warm and dry. No rash noted. Psychiatric: Normal mood and affect. Cardiovascular Studies: 08/18/23 TTE Summary 1. Left ventricular chamber dimension is normal. 2. The basal inferior wall is hypokinetic. 3. All other case appear normal. 4. Left ventricular systolic function is normal with an ejection fraction by Biplane Method of Discs of 58 %. 5. The left ventricular diastolic function is grade I diastolic dysfunction, consistent with low or normal atrial pressures. 09/22/22 TTE Summary 1. Left ventricular systolic function is normal with an ejection fraction by Biplane Method of Discs of 59 %. 2. Right ventricular size and systolic function are normal. 3. The left ventricular diastolic function is normal for age. 4. No significant valvular abnormalities. 5. There is no pulmonary hypertension, estimated right ventricle systolic pressure is 29 mmHg. TTE 08/23/18 Conclusions: Mild segmental LV dysfunction with posterior and inferior wall motion abnormalities. Ejection fraction approximately 45 to 50%. No significant valvular heart disease identified. [facility] 09/02/18 Impressions and Recommendations: #1. Moderate LV systolic dysfunction with an estimated LV ejection fraction of 42%. 2. Normal left ventricular end-diastolic pressure 3. Segmental contraction abnormality of the left ventricle. 4. 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 5. Successful catheter-based intervention with drug-eluting stent placement in the distal right conduit, extending into the posterior AV segment, with denominational of MERLY-3 flow and 0% residual stenosis ECG 04/03/22 - NSR, inferior infarct age undetermined, LVH Labs: Lab Results Component Value Date GLUCOSE 108 (H) 07/31/2023 CALCIUM 9.3 07/31/2023 NA 141 07/31/2023 K 3.7 07/31/2023 CL 98 07/31/2023 BUN 27 (H) 07/31/2023 CREATININE 1.38 (H) 07/31/2023 Lab Results Component Value Date WBC 6.26 12/09/2023 HGB 11.8 (L) 12/09/2023 HCT 38.2 12/09/2023 MCV 97.0 12/09/2023 EXTMCV 90.6 06/09/2017 PLT 214 12/09/2023 RBC 3.94 (L) 12/09/2023 Lab Results Component Value Date CHOL 94 (L) 12/09/2023 LDLCALC 19 12/09/2023 TRIG 134 12/09/2023 HDL 48 12/09/2023 documented in this encounter [facility] 06-06-2024 Instructions Francesca Mares RN - 06/06/2024 11:39 AM EDT DECREASE lasix to ONCE a day STOP aldactone How to contact your Care Team: Provider: Donna Schroeder MD Nurse: Francesca Mares RN In case of an emergency please call 911. REFILLS: When in need for refills please call your care team or the office at [phone]. Please include medication name, pharmacy name, and specify 30-day or 90-day supply. Please check with your pharmacy within 24 hours of request for your refill. You must follow up as directed to continue current refills. Thank you documented in this encounter [facility] 06-03-2024 History of Present illness Narrative Documentation received for pt. Provider reviewed and signed. Faxed back to number provided and sent to [employer] to be scanned to chart. documented in this encounter [facility] 06-01-2024 History of Present illness Narrative Documentation received for pt. Provider reviewed and signed. Faxed back to the number provided and sent to [employer] to be scanned to pt chart. documented in this encounter [facility] 05-24-2024 Evaluation + Plan note Associated Problem(s): Thyroid nodule Ultrasound showed small nodules with no need for follow up [facility] 05-24-2024 Miscellaneous Notes Associated Problem(s): Thyroid nodule Ultrasound showed small nodules with no need for follow up documented in this encounter [facility] 05-24-2024 Note Chief Complaint Patient presents with Follow-up 2 month f/u HPI: Cat Carroll is a 89 y.o. female presenting today for routine check. Former patient of Gisell Desai. Has PMH of prediabetes, coronary artery disease, [place] previous, trigeminal neuralgia and chronic low back pain, Kelly's esophagus, fibromyalgia as well as urinary incontinence. Mild systolic dysfunction: Echo last known LVEF of 45 to 50%, repeat echo shows improvement in LVEF of 59% done in September 2022. Continue metoprolol succinate 50 mg daily, losartan 100 mg daily Denies any symptoms of chest pain or shortness of breath. Swelling in the leg is down with adding low-dose Lasix at 20 mg. 03/27: Has been having increased swelling in the leg starting at a.m. even with compression stockings on that she has all days and sometimes sleeping with them at night. Trying to elevate her legs up during the day and taking her Lasix 20 mg twice daily. She denies any associated shortness of breath or chest pain or dizziness with that. History of Present Illness Anxiety and depression: She reports a general sense of well-being since her last visit. She is currently on a regimen of Cymbalta 90 mg, which was increased from 60 mg during her previous visit in March. However, she mentions that one of her physicians has discontinued the higher dose of Cymbalta, leaving her on the lower dose. She continues to experience elevated anxiety levels, which she attributes to ongoing grief over the loss of her cat and . These episodes have been occurring intermittently for the past week, often resulting in crying spells before sleep. She has been receiving counseling services from [facility], which she finds beneficial. She also has a home health nurse who monitors her vital signs and provides emotional support. Her blood pressure medication was adjusted by a nurse due to fluctuations in her readings. She was advised to discontinue one of her evening medications, which resulted in improved blood pressure control. She is currently on losartan twice daily, with one dose administered in the morning and the other in the evening. She is also on Lasix. Supplemental Information She is on physical therapy and it is working well for her. She is scheduled to see Dr. Renae on . ALLERGIES The patient has an intolerance to NORCO and TRAMADOL. 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 prior biopsies no dysplasia last biopsies 08/2014 Benign carcinoid tumor of the duodenum 2014 Cancer (HCC) skin cancer-squamous cells removed Chronic kidney disease (CKD), stage III (moderate) (HCC) 09/12/2016 EGFR 43 Fibromyalgia Floating kidney GERD (gastroesophageal reflux disease) 2009 Hypertension 2000 Macular degeneration 2017 Myocardial infarction (HCC) 08/2018 STEMI Osteoporosis 2010 Thyroid nodule 05/24/2024 Trigeminal neuralgia of left side of face 2004 Vertigo Vitamin D deficiency 2016 Past Surgical History: Procedure Laterality Date BACK SURGERY 2013 fusion and rods placed in lower back. Cabrera donna. Dr Hinds BLADDER REPAIR 1989 CATARACT EXT/ECCE Bilateral 2011 Dr arambula CHOLECYSTECTOMY CYST REMOVAL Right 2000 cyst removal from rt breast-benign DILATION AND CURETTAGE (D AND C) 1970 x 2 EGD 01/01/2015 Dr. ZavalaXyaadc-Ebpthdhuv-Ikaumiw's esophagus EGD 08/2014 Dr. Vinicius Pruett-Barrett's esophagitis biopsies negative for dysplasia. ESOPHAGOGASTRODUODENOSCOPY 01/04/2018 Dr. Zavala -biopsies performed-Kelly's esophagitis-carcinoid tumor posterior wall duodenum FRACTURE SURGERY Right Plates and screws in rt arm after fracture. dr Dolan LEFT HEART CATH N/A 08/23/2018 Procedure: Left Heart Cath; Surgeon: Glen Fair MD; Location: [facility]; Service: Cardiovascular HYSTERECTOMY 1975 KIDNEY SURGERY 1969 had exploratory surgery d/t floating kidney Dx KNEE SURGERY Left 1997 left knee arthoscopy LUMPECTOMY Left 1989 benign ORIF HIP GAMMA NAIL Right 04/02/2020 IN DSTR NROLYTC AGNT PARVERTEB FCT ADDL LMBR/SACRAL Bilateral 01/21/2024 Procedure: Lumbar medial branch nerve radiofrequency ablation, bilateral lumbar 1-2-3; Surgeon: Jake Navarro DO; Location: Main OR; Service: Pain Management IN DSTR NROLYTC AGNT PARVERTEB FCT SNGL LMBR/SACRAL Bilateral 01/21/2024 Procedure: Lumbar medial branch nerve radiofrequency ablation, bilateral lumbar 1-2-3; Surgeon: Jake Navarro DO; Location: Main OR; Service: Pain Management IN NJX DX/THER AGT PVRT FACET JT LMBR/SAC 1 LEVEL Bilateral 06/18/2023 Procedure: Lumbar medial branch nerve blocks, bilateral lumbar 2-3-4; Surgeon: Jake Navarro DO; Location: Main OR; Service: Pain Management IN NJX DX/THER AGT PVRT FACET JT LMBR/SAC 1 LEV (more content not included)... [facility] 05-24-2024 History of Present illness Narrative Images from the original note were not included. Chief Complaint Patient presents with Follow-up 2 month f/u HPI: Cat Carroll is a 89 y.o. female presenting today for routine check. Former patient of [facility]. Has PMH of prediabetes, coronary artery disease, IA previous, trigeminal neuralgia and chronic low back pain, Kelly's esophagus, fibromyalgia as well as urinary incontinence. Mild systolic dysfunction: Echo last known LVEF of 45 to 50%, repeat echo shows improvement in LVEF of 59% done in September 2022. Continue metoprolol succinate 50 mg daily, losartan 100 mg daily Denies any symptoms of chest pain or shortness of breath. Swelling in the leg is down with adding low-dose Lasix at 20 mg. 03/27: Has been having increased swelling in the leg starting at a.m. even with compression stockings on that she has all days and sometimes sleeping with them at night. Trying to elevate her legs up during the day and taking her Lasix 20 mg twice daily. She denies any associated shortness of breath or chest pain or dizziness with that. History of Present Illness Anxiety and depression: She reports a general sense of well-being since her last visit. She is currently on a regimen of Cymbalta 90 mg, which was increased from 60 mg during her previous visit in March. However, she mentions that one of her physicians has discontinued the higher dose of Cymbalta, leaving her on the lower dose. She continues to experience elevated anxiety levels, which she attributes to ongoing grief over the loss of her cat and . These episodes have been occurring intermittently for the past week, often resulting in crying spells before sleep. She has been receiving counseling services from [facility], which she finds beneficial. She also has a home health nurse who monitors her vital signs and provides emotional support. Her blood pressure medication was adjusted by a nurse due to fluctuations in her readings. She was advised to discontinue one of her evening medications, which resulted in improved blood pressure control. She is currently on losartan twice daily, with one dose administered in the morning and the other in the evening. She is also on Lasix. Supplemental Information She is on physical therapy and it is working well for her. She is scheduled to see Dr. Renae on . ALLERGIES The patient has an intolerance to NORCO and TRAMADOL. 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 prior biopsies no dysplasia last biopsies 08/2014 Benign carcinoid tumor of the duodenum 2014 Cancer (HCC) skin cancer-squamous cells removed Chronic kidney disease (CKD), stage III (moderate) (HCC) 09/12/2016 EGFR 43 Fibromyalgia Floating kidney GERD (gastroesophageal reflux disease) 2009 Hypertension 1999 Macular degeneration 2017 Myocardial infarction (HCC) 08/2018 STEMI Osteoporosis 2010 Thyroid nodule 05/24/2024 Trigeminal neuralgia of left side of face 2005 Vertigo Vitamin D deficiency 2016 Past Surgical History: Procedure Laterality Date BACK SURGERY 2013 fusion and rods placed in lower back. Cabrera donna. Dr Hinds BLADDER REPAIR 1989 CATARACT EXT/ECCE Bilateral 2011 Dr arambula CHOLECYSTECTOMY CYST REMOVAL Right 1999 cyst removal from rt breast-benign DILATION AND CURETTAGE (D AND C) 1970 x 2 EGD 01/01/2015 Dr. ZavalaEpvthl-Bklydvkyb-Mienjoh's esophagus EGD 08/2014 Dr. Vinicius Pruett-Barrett's esophagitis biopsies negative for dysplasia. ESOPHAGOGASTRODUODENOSCOPY 01/04/2018 Dr. Zavala -biopsies performed-Kelly's esophagitis-carcinoid tumor posterior wall duodenum FRACTURE SURGERY Right Plates and screws in rt arm after fracture. dr Dolan LEFT HEART CATH N/A 08/23/2018 Procedure: Left Heart Cath; Surgeon: Glen Fair MD; Location: [facility]; Service: Cardiovascular HYSTERECTOMY 1974 KIDNEY SURGERY 1968 had exploratory surgery d/t floating kidney Dx KNEE SURGERY Left 1997 left knee arthoscopy LUMPECTOMY Left 1989 benign ORIF HIP GAMMA NAIL Right 04/02/2020 IN DSTR NROLYTC AGNT PARVERTEB FCT ADDL LMBR/SACRAL Bilateral 01/21/2024 Procedure: Lumbar medial branch nerve radiofrequency ablation, bilateral lumbar 1-2-3; Surgeon: Jake Navarro DO; Location: Main OR; Service: Pain Management IN DSTR NROLYTC AGNT PARVERTEB FCT SNGL LMBR/SACRAL Bilateral 01/21/2024 Procedure: Lumbar medial branch nerve radiofrequency ablation, bilateral lumbar 1-2-3; Surgeon: Jake Navarro DO; Location: Main OR; Service: Pain Management IN NJX DX/THER AGT PVRT FACET JT LMBR/SAC 1 LEVEL Bilateral 06/18/2023 Procedure: Lumbar medial branch nerve blocks, bilateral lumbar 2-3-4; Surgeon: Jake Navarro DO; Location: Main OR; Service: Pain Management IN NJX DX/THER AGT PVRT FACET JT LMBR/SAC 1 LEVEL Bilateral 07/02/2023 Procedure: Lumbar medial branch nerve blocks, bilateral lumbar 2-3-4; Surgeon: Jake Navarro DO; Location: Main OR; Service: Pain Management SQUAMOUS CELL CARCINOMA EXCISION x4 TOTAL KNEE ARTHROPLASTY Left 2013 dr dolan TUMOR REMOVAL 2012 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 Family History Problem Relation Age of Onset Diabetes Mother Heart disease Mother Heart disease Father Stroke Father Diabetes Sister Dementia Sister Heart disease Brother Diabetes Brother Diabetes Maternal Uncle Bipolar disorder Daughter Diabetes Son Cancer Neg Hx Aneurysm Neg Hx Seizures Neg Hx Social History Tobacco Use Smoking status: Former Current packs/day: 0.00 Types: Cigarettes Quit date: 04/03/1976 Years since quittin.1 Passive exposure: Never Smokeless tobacco: Never Vaping Use Vaping status: Never Used Substance Use Topics Alcohol use: No Drug use: No Review of Systems Vitals: 05/24/24 1025 05/24/24 1028 05/24/24 1029 BP: (!) 126/45 (!) 144/87 126/76 BP Location: Right arm Right arm Right arm Patient Position: Sitting Sitting Sitting BP Cuff Size: Adult Adult Adult Pulse: 92 Resp: 16 Weight: 54 kg (119 lb) Height: 5' 4 Estimated body mass index is 20.43 kg/m as calculated from the following: Height as of this encounter: 5' 4. Weight as of this encounter: 54 kg (119 lb). Physical Exam Constitutional: General: She is not in acute distress. Appearance: She is not ill-appearing. HENT: Head: Normocephalic and atraumatic. Eyes: Extraocular Movements: Extraocular movements intact. Conjunctiva/sclera: Conjunctivae normal. Pupils: Pupils are equal, round, and reactive to light. Cardiovascular: Rate and Rhythm: Normal rate and regular rhythm. Pulses: Normal pulses. Heart sounds: Normal heart sounds. No murmur heard. No gallop. Pulmonary: Effort: Pulmonary effort is normal. Breath sounds: Normal breath sounds. No wheezing, rhonchi or rales. Chest: Chest wall: No tenderness. Abdominal: General: Abdomen is flat. Bowel sounds are normal. There is no distension. Palpations: Abdomen is soft. There is no mass. Tenderness: There is no abdominal tenderness. There is no right CVA tenderness, left CVA tenderness, guarding or rebound. Musculoskeletal: General: No tenderness. Normal range of motion. Cervical back: Normal range of motion and neck supple. No rigidity. No muscular tenderness. Right lower leg: Edema present. Left lower leg: Edema present. Comments: +2-3 pitting edema up to the knees bilaterally Lymphadenopathy: Cervical: No cervical adenopathy. Skin: General: Skin is warm. Findings: No erythema or rash. Neurological: General: No focal deficit present. Mental Status: She is alert and oriented to person, place, and time. Sensory: No sensory deficit. Motor: No weakness. Coordination: Coordination normal. Gait: Gait normal. Psychiatric: Mood and Affect: Mood normal. Behavior: Behavior normal. Thought Content: Thought content normal. Judgment: Judgment normal. OARRS/NARxCHECK Report Received and Assessed: Jake Navarro DO on 05/12/2024 2:31 PM Date controlled substance agreement signed: 01/01/2024 Date of last drug screen: @Exam@ PHQ9: JOHNATHON-7 Tobacco Counseling: Counseling given: Not Answered Patient's Medications New Prescriptions No medications on file Previous Medications ASPIRIN (ECOTRIN ORAL) Take by mouth . ATORVASTATIN (LIPITOR) 40 MG TABLET Take 1 (one) tablet (40 mg total) by mouth nightly . COLESTIPOL (COLESTID) 1 GRAM TABLET D-MANNOSE ORAL DULOXETINE (CYMBALTA) 30 MG CAPSULE Take 1 (one) capsule (30 mg total) by mouth daily Total of 90 mg with the 60 mg script . ESTRADIOL (ESTRACE) 0.01 % (0.1 MG/GRAM) VAGINAL CREAM Insert 2 (two) g into the vagina daily . FUROSEMIDE (LASIX) 20 MG TABLET Take 1 (one) tablet (20 mg total) by mouth 2 (two) times a day . LAMOTRIGINE (LAMICTAL) 200 MG TABLET Take 1 (one) tablet (200 mg total) by mouth daily . LOSARTAN (COZAAR) 50 MG TABLET Take 1 (one) tablet (50 mg total) by mouth daily . METHADONE (DOLOPHINE) 5 MG TABLET Take 1.5 (one and a half) tablets (7.5 mg total) by mouth 2 (two) times a day (Days supply per fill: 30) Start: 05/25/24. MULTIVIT-MIN/IRON/FOLIC/LUTEIN (CENTRUM SILVER WOMEN ORAL) Take 1 tablet by mouth daily. NALOXONE (NARCAN) 4 MG/ACTUATION SPRY Administer 1 spray into one nostril for known or suspected opioid overdose. If patient worsens or does not respond, may repeat in 2-3 minutes. . NITROGLYCERIN (NITROSTAT) 0.[address] 1 (one) tablet (0.4 mg total) under the tongue every 5 (five) minutes as needed for chest pain , if no relief after 3 doses call 911 . PANTOPRAZOLE (PROTONIX) 40 MG TABLET Take 1 (one) tablet (40 mg total) by mouth daily . SPIRONOLACTONE (ALDACTONE) 25 MG TABLET Take 1 (one) tablet (25 mg total) by mouth daily . UNIV COMP RX: AMITRIPTYLINE 2%, BACLOFEN 2%, GABAPENTIN 5%, LIDOCAINE 5% EMOLLIENT CREAM Apply 0.5 g topically 3 (three) times a day as needed . VIBEGRON (GEMTESA) 75 MG TAB Take by mouth . Modified Medications No medications on file Discontinued Medications No medications on file Health Maintenance Due Topic Date Due Zoster Vaccines (1 of 2) Never done Respiratory Syncytial Virus Immunization: Risk, 60-74 Risk, or 75+ (1 - 1-dose 75+ series) Never done COVID-19 Vaccine ( season) 2023 Falls Risk Assessment 05/10/2024 Medicare Wellness Visit 05/10/2024 Depression Screening/Follow-Up (PHQ-2/9) 07/08/2024 Assessment & Plan Problem List Items Addressed This Visit Endocrine Thyroid nodule Ultrasound showed small nodules with no need for follow up Cardiovascular and Mediastinum Hypertension - Primary Other Moderate major depression (HCC) Assessment & Plan 1. Anxiety. Her anxiety symptoms persist, likely exacerbated by the recent loss of her cat and the absence of her , who on 12/10/2011. She is currently on Cymbalta, but there is confusion about the dosage. It appears that her higher dose was discontinued, and she may be taking a lower dose than intended. She is advised to verify the dosage of Cymbalta she is taking at home and call the office with this information. No changes to her anxiety medication will be made until this information is confirmed. She is encouraged to continue counseling sessions, which she finds helpful. Addendum: talking to palliative nurse she is currently only on cymbalta 30 mg and stable , counseling is through palliative team. 2. Blood pressure management. Her blood pressure is well-controlled with the current regimen of losartan, per confirmation from home is only taking once a day. She mentioned that a nurse advised her to stop taking one of her blood pressure medications at night, which has improved her blood pressure stability. The specific medication was not recalled during the visit. No changes to her blood pressure medication will be made as current information is confirmed. Follow-up The patient will follow up in July 2024. No follow-ups on file. My ongoing relationship with Cat Carroll requires continued responsibility and cognitive effort of being the focal point for all services related to serious condition(s). After discussing the use of ambient listening and audio recording in generating medical documentation, the patient verbally consented to use of this technology for today's visit. I spent 40 mins with patient reviewing HPI and coordinating plan of care. CLAUDINE MAJANO MD [facility] [address] [place] [phone] Dept: [phone] 02/11/2022 1:43 PM 07/25/2022 1:32 PM 02/20/2023 12:00 PM 02/25/2023 7:01 AM 05/11/2023 8:01 AM 05/20/2023 11:40 AM 07/09/2023 8:23 AM Depression Screening Little interest or pleasure in doing things 0 1 3 2 0 0 0 Feeling down, depressed, or hopeless 0 1 3 2 0 0 0 PHQ-2 Total Score 0 2 6 4 0 0 0 Trouble falling or staying asleep, or sleeping too much 1 0 2 3 0 Feeling tired or having little energy 1 1 1 2 0 Poor appetite or overeating 0 0 1 2 0 Feeling bad about yourself - or that you are a failure or have let yourself or your family down 0 0 0 0 0 Trouble concentrating on things, such as reading the newspaper or watching television 0 0 1 1 0 Moving or speaking so slowly that other people could have noticed. Or the opposite - being so fidgety or restless that you have been moving around a lot more than usual 0 0 0 0 0 Thoughts that you would be better off , or of hurting yourself in some way 0 0 1 1 0 PHQ-9 Total Score 2 3 12 13 0 If you checked off any problems, how difficult have these problems made it for you to do your work, take care of things at home, or get along with other people? Not difficult at all Not difficult at all Very difficult Not difficult at all Not difficult at all Data saved with a previous flowsheet row definition 02/11/2022 1:43 PM 07/25/2022 1:32 PM 02/20/2023 12:00 PM 02/25/2023 7:01 AM 05/11/2023 8:01 AM 05/20/2023 11:40 AM 07/09/2023 8:23 AM Depression Screening Little interest or pleasure in doing things 0 1 3 2 0 0 0 Feeling down, depressed, or hopeless 0 1 3 2 0 0 0 PHQ-2 Total Score 0 2 6 4 0 0 0 Trouble falling or staying asleep, or sleeping too much 1 0 2 3 0 Feeling tired or having little energy 1 1 1 2 0 Poor appetite or overeating 0 0 1 2 0 Feeling bad about yourself - or that you are a failure or have let yourself or your family down 0 0 0 0 0 Trouble concentrating on things, such as reading the newspaper or watching television 0 0 1 1 0 Moving or speaking so slowly that other people could have noticed. Or the opposite - being so fidgety or restless that you have been moving around a lot more than usual 0 0 0 0 0 Thoughts that you would be better off , or of hurting yourself in some way 0 0 1 1 0 PHQ-9 Total Score 2 3 12 13 0 If you checked off any problems, how difficult have these problems made it for you to do your work, take care of things at home, or get along with other people? Not difficult at all Not difficult at all Very difficult Not difficult at all Not difficult at all Data saved with a previous flowsheet row definition documented in this encounter [facility] 05-19-2024 History of Present illness Narrative Documentation received for pt. This documentation is for provider review only. Sent to [facility] for scan. documented in this encounter [facility] 05-12-2024 Instructions Jake Navarro DO - 05/12/2024 2:31 PM EST If chronic opioids were prescribed, the risk of chronic opioid therapy includes, but not limited constipation, nausea, vomiting, hormonal changes, osteoporosis, developing a tolerance, dependence or addiction to the medication and the possibility of overdose and . Prior to initiating chronic opioid therapy, patient failed many non-opioid therapies including PT, injections/pain procedures, NSAIDs, Tylenol, muscle relaxers and nerve medications. The goal of opioid therapy is to reduce their chronic pain and improve their functional capacity and quality of life. The lowest effective dose will be utilized for the shortest duration possible. Weaning of opioids will always be considered whenever possible. The patient can NOT mix opioids with other sedating medications or substances including marijuana, benzodiazepines, muscle relaxers, nerve medication and alcohol. The patient can only take medication as prescribed. The patient can NOT sell, share or give away their medication. The patient must lock their medication in a safe location away from children and other family members. If patient has a history of sleep apnea or COPD, they are at increased risk of respiratory depression, overdose and given their underlying disease process. It is important to continue to using their CPAP and supplemental oxygen as prescribed. Patient should NOT take their pain medication if they have a respiratory illness as this puts them at increased risk of respiratory depression, overdose and . Narcan is the reversal agent for an opioid overdose. This should always be next to your opioid medication in the event of an opioid overdose. Narcan prescription was ordered upon initiation of chronic opioid therapy and will be offered or ordered at every follow-up visit or sooner if patient requests. Please refer to instructions on medication packet for proper use. Please discuss with your pharmacist if you have any further questions. Patient agrees to submit to drugs screens and pill counts as requested to ensure compliance and rule out any diversion, medication overuse, inappropriately taking other prescriptions medications or use of illicit substances. Patient understands if either a drug screen or pill count is inappropriate, they will be discharged from the practice. They have agreed to this by way of our mutually signed pain contract scanned into EMR. If a procedure was ordered, the risks of the procedure include, but not limited to, worsening pain, failure to improve pain, bruising, bleeding, infection, medication side effects or allergic reaction to the medications used, tissue injury, nerve injury, nerve palsy or paralysis, transient or permanent weakness, injection of local anesthetic intravascularly or intrathecally resulting in cardiac arrhythmias, fainting, respiratory arrest, spinal cord injury, heart attack, stroke and . If anesthesia or sedation will be used there is a risk for cardiac and respiratory complications including heart attack, stroke, cardiac arrest and . If steroid is given, this can increase blood sugar (if diabetic) and blood pressure (if history of high blood pressure) for several days following the injection.Patient should check both blood pressure and blood sugar regularly and if abnormal should follow-up with their primary care physician. If patient takes a blood thinner or anti-platelet medication, we will request written permission from the managing physician to hold the blood thinner or anti-platelet medication per the LICO guidelines. If the managing physician does not give approval to hold the medication for the duration requested, the procedure will be cancelled. Holding blood thinner or anti-platelet medication can result in increased risk of stroke, heart attack or even when approval by the managing physician is given. documented in this encounter [facility] 05-12-2024 Note [facility] Interventional Pain Management Office Note Patient Name: Cat Carroll Referring Physician: No ref. provider found Date of : 1935 PCP: Claudine Majano MD Date of Service: 05/12/24 Assessment & Plan Assessment: Failed back surgery syndrome Posterior fusion, L5-S1 Lumbar spondylosis Lumbar spinal stenosis Lumbar degenerative disease Trigeminal neuralgia History of multiple rib fractures, right 03/16/24 Chronic pain syndrome Chronic continuous opioid use Anticoagulation: ASA Narrative: She presented with chronic low back pain secondary to combination of lumbar spondylosis, lumbar degenerative disease and a component of failed back surgery syndrome following a posterior fusion L5-S1. MRI lumbar spine reviewed and shows recurrent degenerative changes resulting in severe right foraminal narrowing at L5-S1. There is also additional multilevel degenerative changes throughout the rest of her lumbar spine. She is status post lumbar medial branch nerve RFA, bilateral L1, L2, L3 on 01/21/2024. She endorses 95% relief of her low back pain following the ablation. As long as she achieves at least 6 months duration of relief we can certainly repeat this in the future as needed. She also is dealing with trigeminal neuralgia and vertigo symptoms. She follows closely with neurology at [facility] for treatment of trigeminal neuralgia and dizziness. Unfortunately she sustained a fall on 03/16/2024 and was evaluated in the ER at that time and was diagnosed with right rib fractures with displaced fractured ribs 3 through 5 and nondisplaced rib fractures 6 through 8. Her pain secondary to her rib fractures is much improved at this time. Analgesia: Patient has adequate analgesia with the use of current opioid pain medication. Activities of Daily Living: Patient's activities of daily living and psychological functioning have improved sufficiently with use of the current opioid medication. Adverse Effects: Patient reports no adverse effects with use of the opioid pain medication. Aberrant Drug-Taking Behavior: Patient has demonstrated no aberrant drug taking behaviors with no deviation from prescription. She has tried and failed tramadol secondary to side effects.We did trial a course of opioid cycling from methadone to [place] however she did not tolerate [place] as this caused dizziness and vomiting. She is now back on methadone, back to her baseline and doing well. She endorses adequate relief and denies any side effects. Now that she is back on her methadone I am going to order an updated EKG to check her QT interval. 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 Plan: Medications: Continue methadone 7.5 mg twice daily as needed Follow-up: Return in about 3 months (around 08/12/2024) for Follow-up. Compliance Pain Contract Signed: 09/28/23 OARRS/NARxCheck: 05/12/24 Drug Screen/Pill Count History: UDS 04/13/24: appropriate UDS 01/01/24: appropriate UDS 09/28/23: appropriate Narcan offered/ordered: 05/12/24 Opioid Risk Tool (ORT): Gender Male or Female: F (01/01/2024 9:00 AM) Family History of Substance Abuse (Alcohol): 0 (01/01/2024 9:00 AM) Family History of Substance Abuse (Illegal Drugs): 0 (01/01/2024 9:00 AM) Family History of Substance Abuse (Prescription Drugs): 0 (01/01/2024 9:00 AM) Personal History of Substance Abuse (Alcohol): 0 (01/01/2024 9:00 AM) Personal History of Substance Abuse (Illegal Drugs): 0 (01/01/2024 9:00 AM) Personal History of Substance Abuse (Prescription Drugs): 0 (01/01/2024 9:00 AM) History of Preadolescent Sexual Abuse: 0 (01/01/2024 9:00 AM) Psychological Disease: 0 (01/01/2024 9:00 AM) Psychological Disease (Depression): 1 (01/01/2024 9:00 AM) Total : 1 (01/01/2024 9:00 AM) Total Score Risk Category: Low Risk (0-3) (01/01/2024 9:00 AM) Oswestry Disability Index (EZEQUIEL): Oswestry Low Back Disability Index My BACK PAIN at the moment is: 1 (01/01/2024 9:00 AM) Personal care: 1 (01/01/2024 9:00 AM) Lifitn (01/01/2024 9:00 AM) Walkin (01/01/2024 9:00 AM) Sittin (01/01/2024 9:00 AM) Standin (01/01/2024 9:00 AM) Sleepin (01/01/2024 9:00 AM) Sex Life: 5 (01/01/2024 9:00 AM) Social Life: 3 (01/01/2024 9:00 AM) Travelin (01/01/2024 9:00 AM) Oswestry Score: 22 (01/01/2024 9:00 AM) Current Opioid Misuse Measure (COMM): Current Opioid Misuse Measure (COMM) In the past 30 days, how often have you had trouble with thinking clearly or had memory problems?: 2 (05/12/2024 1:00 PM) In the past 30 days, how often do people complain that you are not completing necessary tasks? (i.e., doing things that need to be done, such as going to class, work or appointments) : 0 (05/12/2024 1:00 PM) In the past 30 days, how often have you had to go to someone other than your prescribing physician (more content not included)... [facility] 05-12-2024 History of Present illness Narrative [facility] Interventional Pain Management Office Note Patient Name: Cat Carroll Referring Physician: No ref. provider found Date of : 1935 PCP: Claudine Majano MD Date of Service: 05/12/24 Assessment & Plan Assessment: Failed back surgery syndrome Posterior fusion, L5-S1 Lumbar spondylosis Lumbar spinal stenosis Lumbar degenerative disease Trigeminal neuralgia History of multiple rib fractures, right 03/16/24 Chronic pain syndrome Chronic continuous opioid use Anticoagulation: ASA Narrative: She presented with chronic low back pain secondary to combination of lumbar spondylosis, lumbar degenerative disease and a component of failed back surgery syndrome following a posterior fusion L5-S1. MRI lumbar spine reviewed and shows recurrent degenerative changes resulting in severe right foraminal narrowing at L5-S1. There is also additional multilevel degenerative changes throughout the rest of her lumbar spine. She is status post lumbar medial branch nerve RFA, bilateral L1, L2, L3 on 01/21/2024. She endorses 95% relief of her low back pain following the ablation. As long as she achieves at least 6 months duration of relief we can certainly repeat this in the future as needed. She also is dealing with trigeminal neuralgia and vertigo symptoms. She follows closely with neurology at [facility] for treatment of trigeminal neuralgia and dizziness. Unfortunately she sustained a fall on 03/16/2024 and was evaluated in the ER at that time and was diagnosed with right rib fractures with displaced fractured ribs 3 through 5 and nondisplaced rib fractures 6 through 8. Her pain secondary to her rib fractures is much improved at this time. Analgesia: Patient has adequate analgesia with the use of current opioid pain medication. Activities of Daily Living: Patient's activities of daily living and psychological functioning have improved sufficiently with use of the current opioid medication. Adverse Effects: Patient reports no adverse effects with use of the opioid pain medication. Aberrant Drug-Taking Behavior: Patient has demonstrated no aberrant drug taking behaviors with no deviation from prescription. She has tried and failed tramadol secondary to side effects.We did trial a course of opioid cycling from methadone to [place] however she did not tolerate [place] as this caused dizziness and vomiting. She is now back on methadone, back to her baseline and doing well. She endorses adequate relief and denies any side effects. Now that she is back on her methadone I am going to order an updated EKG to check her QT interval. 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 Plan: Medications: Continue methadone 7.5 mg twice daily as needed Follow-up: Return in about 3 months (around 08/12/2024) for Follow-up. Compliance Pain Contract Signed: 09/28/23 OARRS/NARxCheck: 05/12/24 Drug Screen/Pill Count History: UDS 04/13/24: appropriate UDS 01/01/24: appropriate UDS 09/28/23: appropriate Narcan offered/ordered: 05/12/24 Opioid Risk Tool (ORT): Gender Male or Female: F (01/01/2024 9:00 AM) Family History of Substance Abuse (Alcohol): 0 (01/01/2024 9:00 AM) Family History of Substance Abuse (Illegal Drugs): 0 (01/01/2024 9:00 AM) Family History of Substance Abuse (Prescription Drugs): 0 (01/01/2024 9:00 AM) Personal History of Substance Abuse (Alcohol): 0 (01/01/2024 9:00 AM) Personal History of Substance Abuse (Illegal Drugs): 0 (01/01/2024 9:00 AM) Personal History of Substance Abuse (Prescription Drugs): 0 (01/01/2024 9:00 AM) History of Preadolescent Sexual Abuse: 0 (01/01/2024 9:00 AM) Psychological Disease: 0 (01/01/2024 9:00 AM) Psychological Disease (Depression): 1 (01/01/2024 9:00 AM) Total : 1 (01/01/2024 9:00 AM) Total Score Risk Category: Low Risk (0-3) (01/01/2024 9:00 AM) Oswestry Disability Index (EZEQUIEL): Oswestry Low Back Disability Index My BACK PAIN at the moment is: 1 (01/01/2024 9:00 AM) Personal care: 1 (01/01/2024 9:00 AM) Lifitn (01/01/2024 9:00 AM) Walkin (01/01/2024 9:00 AM) Sittin (01/01/2024 9:00 AM) Standin (01/01/2024 9:00 AM) Sleepin (01/01/2024 9:00 AM) Sex Life: 5 (01/01/2024 9:00 AM) Social Life: 3 (01/01/2024 9:00 AM) Travelin (01/01/2024 9:00 AM) Oswestry Score: 22 (01/01/2024 9:00 AM) Current Opioid Misuse Measure (COMM): Current Opioid Misuse Measure (COMM) In the past 30 days, how often have you had trouble with thinking clearly or had memory problems?: 2 (05/12/2024 1:00 PM) In the past 30 days, how often do people complain that you are not completing necessary tasks? (i.e., doing things that need to be done, such as going to class, work or appointments) : 0 (05/12/2024 1:00 PM) In the past 30 days, how often have you had to go to someone other than your prescribing physician to get sufficient pain relief from medications? (i.e., another doctor, the Emergency Room, friends, street sources): 0 (05/12/2024 1:00 PM) In the past 30 days, how often have you taken your medications differently from how they are prescribed?: 0 (05/12/2024 1:00 PM) In the past 30 days, how often have you seriously thought about hurting yourself?: 0 (05/12/2024 1:00 PM) In the past 30 days, how much of your time was spent thinking about opioid medications (having enough, taking them, dosing schedule, etc.)?: 0 (05/12/2024 1:00 PM) In the past 30 days, how often have you been in an argument?: 0 (05/12/2024 1:00 PM) In the past 30 days, how often have you had trouble controlling your anger (e.g., road rage, screaming, etc.)?: 0 (05/12/2024 1:00 PM) In the past 30 days, how often have you needed to take pain medications belonging to someone else?: 0 (05/12/2024 1:00 PM) In the past 30 days, how often have you been worried about how you're handling your medications?: 0 (05/12/2024 1:00 PM) In the past 30 days, how often have others been worried about how you're handling your medications?: 0 (05/12/2024 1:00 PM) In the past 30 days, how often have you had to make an emergency phone call or show up at the clinic without an appointment?: 0 (05/12/2024 1:00 PM) In the past 30 days, how often have you gotten angry with people?: 1 (05/12/2024 1:00 PM) In the past 30 days, how often have you had to take more of your medication than prescribed?: 0 (05/12/2024 1:00 PM) In the past 30 days, how often have you borrowed pain medication from someone else?: 0 (05/12/2024 1:00 PM) In the past 30 days, how often have you used your pain medicine for symptoms other than for pain (e.g., to help you sleep, improve your mood, or relieve stress)?: 0 (05/12/2024 1:00 PM) In the past 30 days, how often have you had to visit the Emergency Room?: 0 (05/12/2024 1:00 PM) Total Score: 3 (05/12/2024 1:00 PM) COMM: negative If chronic opioids were prescribed, the risk of chronic opioid therapy includes, but not limited constipation, nausea, vomiting, hormonal changes, osteoporosis, developing a tolerance, dependence or addiction to the medication and the possibility of overdose and . Prior to initiating chronic opioid therapy, patient failed many non-opioid therapies including PT, injections/pain procedures, NSAIDs, Tylenol, muscle relaxers and nerve medications. The goal of opioid therapy is to reduce their chronic pain and improve their functional capacity and quality of life. The lowest effective dose will be utilized for the shortest duration possible. Weaning of opioids will always be considered whenever possible. The patient can NOT mix opioids with other sedating medications or substances including marijuana, benzodiazepines, muscle relaxers, nerve medication and alcohol. The patient can only take medication as prescribed. The patient can NOT sell, share or give away their medication. The patient must lock their medication in a safe location away from children and other family members. If patient has a history of sleep apnea or COPD, they are at increased risk of respiratory depression, overdose and given their underlying disease process. It is important to continue to using their CPAP and supplemental oxygen as prescribed. Patient should NOT take their pain medication if they have a respiratory illness as this puts them at increased risk of respiratory depression, overdose and . Narcan is the reversal agent for an opioid overdose. This should always be next to your opioid medication in the event of an opioid overdose. Narcan prescription was ordered upon initiation of chronic opioid therapy and will be offered or ordered at every follow-up visit or sooner if patient requests. Please refer to instructions on medication packet for proper use. Please discuss with your pharmacist if you have any further questions. Patient agrees to submit to drugs screens and pill counts as requested to ensure compliance and rule out any diversion, medication overuse, inappropriately taking other prescriptions medications or use of illicit substances. Patient understands if either a drug screen or pill count is inappropriate, they will be discharged from the practice. They have agreed to this by way of our mutually signed pain contract scanned into EMR. If a pain procedure was ordered, the risks of the procedure include, but not limited to, worsening pain, failure to improve pain, bleeding, infection, nerve injury/paralysis, and headache. The benefits of the procedure included reduction of pain, improvement in functional status and improvement in ability to perform activities of daily living. If steroid is given, this can increase blood sugar (if diabetic) and blood pressure (if history of high blood pressure) for several days following the injection.Patient should check both blood pressure and blood sugar regularly and if abnormal should follow-up with their primary care physician. If patient takes a blood thinner or anti-platelet medication, we will request written permission from the managing physician to hold the blood thinner or anti-platelet medication per the LICO guidelines. If the managing physician does not give approval to hold the medication for the duration requested, the procedure will be cancelled. Holding blood thinner or anti-platelet medication can result in increased risk of stroke, heart attack or even when approval by the managing physician is given. History of Present Illness / Review of Systems Reason for Visit: Follow-up Pain location: ribs Current pain Level: 0 Worst pain Level: 9 Pain description: sharp Radiation: No Sensory changes: No Motor changes: No Duration of pain: < 3 months Increases pain: nothing Decreases pain: medications Patient's Goals: decrease pain, decrease pain with activity, improve ability to perform activities of daily living, improve quality of life, improve sleep, stand longer, and walk further Acceptable level of pain: 0 Additional concerns: none Focused Review of Systems: Loss of bladder control: Yes Loss of bowel control: Denies Saddle anesthesia: Denies Recent falls: Denies Constipation: Denies 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 prior biopsies no dysplasia last biopsies 08/2014 Benign carcinoid tumor of the duodenum 2014 Cancer (HCC) skin cancer-squamous cells removed Chronic kidney disease (CKD), stage III (moderate) ([facility]) 09/12/2016 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 Rick thompson. Dr Hinds BLADDER REPAIR 1989 CATARACT EXT/ECCE Bilateral 2011 Dr [place] CHOLECYSTECTOMY CYST REMOVAL Right 2000 cyst removal from rt breast-benign DILATION AND CURETTAGE (D AND C) 1970 x 2 EGD 01/01/2015 Dr. ZavalaFrsweq-Tvhhebvkf-Tqhusxm's esophagus EGD 08/2014 Dr. Vinicius Pruett-Barrett's esophagitis biopsies negative for dysplasia. ESOPHAGOGASTRODUODENOSCOPY 01/04/2018 Dr. Zavala -biopsies performed-Kelly's esophagitis-carcinoid tumor posterior wall duodenum FRACTURE SURGERY Right Plates and screws in rt arm after fracture. dr Dolan [facility] LEFT HEART CATH N/A 08/23/2018 Procedure: Left Heart Cath; Surgeon: Glen Fair MD; Location: [facility]; Service: Cardiovascular HYSTERECTOMY 1975 KIDNEY SURGERY 1968 had exploratory surgery d/t floating kidney Dx KNEE SURGERY Left 1998 left knee arthoscopy LUMPECTOMY Left 1989 benign ORIF HIP GAMMA NAIL Right 04/02/2020 IN DSTR NROLYTC AGNT PARVERTEB FCT ADDL LMBR/SACRAL Bilateral 01/21/2024 Procedure: Lumbar medial branch nerve radiofrequency ablation, bilateral lumbar 1-2-3; Surgeon: Jake Navarro DO; Location: Main OR; Service: Pain Management IN DSTR NROLYTC AGNT PARVERTEB FCT SNGL LMBR/SACRAL Bilateral 01/21/2024 Procedure: Lumbar medial branch nerve radiofrequency ablation, bilateral lumbar 1-2-3; Surgeon: Jake Navarro DO; Location: Main OR; Service: Pain Management IN NJX DX/THER AGT PVRT FACET JT LMBR/SAC 1 LEVEL Bilateral 06/18/2023 Procedure: Lumbar medial branch nerve blocks, bilateral lumbar 2-3-4; Surgeon: Jake Navarro DO; Location: Main OR; Service: Pain Management IN NJX DX/THER AGT PVRT FACET JT LMBR/SAC 1 LEVEL Bilateral 07/02/2023 Procedure: Lumbar medial branch nerve blocks, bilateral lumbar 2-3-4; Surgeon: Jake Navarro DO; Location: Main OR; Service: Pain Management SQUAMOUS CELL CARCINOMA EXCISION x4 TOTAL KNEE ARTHROPLASTY Left 2012 dr dolan TUMOR REMOVAL 2011 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 Allergies Allergies: Aspirin; Bacitracin zinc-polymyxin b; Codeine; Diphenhydramine; Gabapentin; Latex, natural rubber; Ylivedii-duaiimnvkmu-kcvlusocs; Adhesive tape-silicones; Bacitracin; Carbamazepine; Hydrocortisone; Lidocaine; and Neomycin Medications Current Outpatient Medications Medication Instructions aspirin (ECOTRIN ORAL) Take by mouth . atorvastatin (LIPITOR) 40 mg, Oral, Nightly colestipoL (COLESTID) 1 gram tablet No dose, route, or frequency recorded. D-MANNOSE ORAL DULoxetine (CYMBALTA) 60 mg, Oral, At bedtime DULoxetine (CYMBALTA) 30 mg, Oral, Daily, Total of 90 mg with the 60 mg script estradioL (ESTRACE) 2 g, Vaginal, Daily furosemide (LASIX) 20 mg, Oral, 2 times daily lamoTRIgine (LAMICTAL) 200 mg, Oral, Daily losartan (COZAAR) 50 mg, Oral, Daily methadone (DOLOPHINE) 7.5 mg, Oral, 2 times daily, (Days supply per fill: 30) MULTIVIT-MIN/IRON/FOLIC/LUTEIN (CENTRUM SILVER WOMEN ORAL) 1 tablet, Daily naloxone (NARCAN) 4 mg/actuation Amanda Administer 1 spray into one nostril for known or suspected opioid overdose. If patient worsens or does not respond, may repeat in 2-3 minutes. nitroGLYCERIN (NITROSTAT) 0.4 mg, Sublingual, Every 5 min PRN, , if no relief after 3 doses call 911 pantoprazole (PROTONIX) 40 mg, Oral, Daily spironolactone (ALDACTONE) 25 mg, Oral, Daily UNIV COMP RX: AMITRIPTYLINE 2%, BACLOFEN 2%, GABAPENTIN 5%, LIDOCAINE 5% EMOLLIENT CREAM 0.5 g, Topical, 3 times daily PRN vibegron (Gemtesa) 75 mg Tab Take by mouth . Social History Social History Socioeconomic History Marital status: Number of children: 2 Years of education: 12 Tobacco Use Smoking status: Former Current packs/day: 0.00 Types: Cigarettes Quit date: 04/03/1976 Years since quittin.1 Passive exposure: Never Smokeless tobacco: Never Vaping Use Vaping status: Never Used Substance and Sexual Activity Alcohol use: No Drug use: No Sexual activity: Never Social Drivers of Health Financial Resource Strain: Low Risk (03/16/2023) Overall Financial Resource Strain (CARDIA) Difficulty of Paying Living Expenses: Not hard at all Food Insecurity: No Food Insecurity (07/08/2023) Hunger Vital Sign Worried About Running Out of Food in the Last Year: Never true Ran Out of Food in the Last Year: Never true Transportation Needs: No Transportation Needs (07/08/2023) PRAPARE - Transportation Lack of Transportation (Medical): No Lack of Transportation (Non-Medical): No Physical Activity: Insufficiently Active (10/15/2021) Exercise Vital Sign Days of Exercise per Week: 2 days Minutes of Exercise per Session: 20 min Stress: Stress Concern Present (10/15/2021) Citizen Of [place] [employer] Occupational Health - Occupational Stress Questionnaire Feeling of Stress : To some extent Social Connections: Moderately Isolated (10/15/2021) Social Connection and Isolation Panel [NHANES] Frequency of Communication with Friends and Family: Twice a week Frequency of Social Gatherings with Friends and Family: Once a week Attends [employer] Services: 1 to 4 times per year Active Member of Clubs or Organizations: No Attends Club or Organization Meetings: Patient declined Marital Status: Housing Stability: Low Risk (07/08/2023) Housing Stability Vital Sign Unable to Pay for Housing in the Last Year: No Number of Places Lived in the Last Year: 1 Unstable Housing in the Last Year: No . Family History family history includes Bipolar disorder in her daughter; Dementia in her sister; Diabetes in her brother, maternal uncle, mother, sister, and son; Heart disease in her brother, father, and mother; Stroke in her father. Physical Exam PACU Vitals 05/12/24 1346 BP: 133/75 Pulse: 87 Resp: 16 SpO2: 95% General: No acute distress, atraumatic Cardiovascular: normal rate, no edema Respiratory: non-labored respirations Psychiatric: appropriate mood and affect Lumbar Spine Exam: Lumbar ROM decreased in extension left rotation right rotation Lumbar paraspinal tenderness noted bilaterally Axial Loading: positive bilaterally Other Tests Imaging All imaging and tests below were personally reviewed by me unless otherwise indicated. MRI lumbar spine 04/22/23: FINDINGS: There are 5 lumbar type vertebrae. The spine is imaged from T11 through distal sacrum on sagittal sequences. L5-S1 laminectomy and posterior fusion. Straightening to slight reversal of the expected lumbar lordosis with apex at L2. Mild dextrocurvature apex at L2. No spondylolisthesis. Facets are anatomically aligned. L2-L3 adjacent endplate edema. Multilevel adjacent endplate mixed edema and fatty changes. Vertebral body heights are well-maintained. The visualized cord is within normal limits. The conus medullaris terminates at L1. Degenerative changes as follows: T12-L1: Intervertebral disc height loss and desiccation. Diffuse bulge and facet arthropathy. Minimal thecal sac and mild bilateral neural foraminal narrowing. L1-L2: Intervertebral disc height loss and desiccation with adjacent endplate Modic type 2 changes. Disc osteophyte complex and facet arthropathy. Mild thecal sac narrowing. Fclr-nr-xjjzynxq left and mild right neural foraminal narrowing. L2-L3: Intervertebral disc height loss and desiccation with adjacent endplate Modic type 1 changes. Disc osteophyte complex and facet arthropathy. Moderate thecal sac narrowing. Moderate left and mild right neural foraminal narrowing. L3-L4: Intervertebral disc height loss and desiccation with adjacent endplate Modic type 2 changes. Disc osteophyte complex and facet arthropathy. Nqbg-et-kgoljosg thecal sac and mild bilateral neural foraminal narrowing. L4-L5: Intervertebral disc height loss and desiccation with adjacent endplate Modic type 2 changes. Disc osteophyte complex and facet arthropathy. Pffm-cq-fkrhgixv thecal sac narrowing. Moderate right and pwuf-pu-aiughraf left neural foraminal narrowing. L5-S1: Intervertebral disc height loss and desiccation. L5 inferior endplate Schmorl's node with adjacent endplate Modic type 2 changes. Disc osteophyte complex and facet arthropathy. Thecal sac is decompressed. Severe right and mild left neural foraminal narrowing. Paravertebral structures are unremarkable. IMPRESSION: 1. Surgical changes of L5-S1 laminectomy and posterior fusion. Recurrent degenerative changes resulting in severe right neural foraminal narrowing at this level. 2. Additional multilevel degenerative changes with up to moderate thecal sac narrowing as described. Please correlate with distribution of symptoms and refer to findings section level by level detail. XR lumbar spine 09/02/22: FINDINGS: Five views including lateral flexion and extension. 24 degrees of dextroscoliosis, apex at L2. Status post L5-S1 posterior fusion and decompression. The right L5 transpedicular screw encroaches upon the L4/5 intervertebral disc space. No evidence of hardware loosening. Vertebral body heights are preserved. Severe intervertebral disc space height loss throughout the lumbar spine with endplate osteophytes. The bones are demineralized. Vascular calcifications. IMPRESSION: Status post L5-S1 posterior fusion in similar alignment. Multilevel lumbar spondylosis with 24 degrees of dextroscoliosis, also similar to previous. Thank you for your kind referral. Please do not hesitate to contact me with any questions. Jake Navarro D.O. Interventional Pain Management [facility] [place] This note was generated using [employer] IP voice recognition software in an effort to expedite communication. Please excuse any resultant grammatical or wording errors. Reason for Visit: Follow-up Pain location: ribs Current pain Level: 0 Worst pain Level: 9 Pain description: sharp Radiation: No Sensory changes: No Motor changes: No Duration of pain: < 3 months Increases pain: nothing Decreases pain: medications Patient's Goals: decrease pain, decrease pain with activity, improve ability to perform activities of daily living, improve quality of life, improve sleep, stand longer, and walk further Acceptable level of pain: 0 Additional concerns: none Focused Review of Systems: Loss of bladder control: Yes Loss of bowel control: Denies Saddle anesthesia: Denies Recent falls: Denies Constipation: Denies documented in this encounter [facility] 04-13-2024 Instructions Jake Navarro DO - 04/13/2024 1:14 PM EST If chronic opioids were prescribed, the risk of chronic opioid therapy includes, but not limited constipation, nausea, vomiting, hormonal changes, osteoporosis, developing a tolerance, dependence or addiction to the medication and the possibility of overdose and . Prior to initiating chronic opioid therapy, patient failed many non-opioid therapies including PT, injections/pain procedures, NSAIDs, Tylenol, muscle relaxers and nerve medications. The goal of opioid therapy is to reduce their chronic pain and improve their functional capacity and quality of life. The lowest effective dose will be utilized for the shortest duration possible. Weaning of opioids will always be considered whenever possible. The patient can NOT mix opioids with other sedating medications or substances including marijuana, benzodiazepines, muscle relaxers, nerve medication and alcohol. The patient can only take medication as prescribed. The patient can NOT sell, share or give away their medication. The patient must lock their medication in a safe location away from children and other family members. If patient has a history of sleep apnea or COPD, they are at increased risk of respiratory depression, overdose and given their underlying disease process. It is important to continue to using their CPAP and supplemental oxygen as prescribed. Patient should NOT take their pain medication if they have a respiratory illness as this puts them at increased risk of respiratory depression, overdose and . Narcan is the reversal agent for an opioid overdose. This should always be next to your opioid medication in the event of an opioid overdose. Narcan prescription was ordered upon initiation of chronic opioid therapy and will be offered or ordered at every follow-up visit or sooner if patient requests. Please refer to instructions on medication packet for proper use. Please discuss with your pharmacist if you have any further questions. Patient agrees to submit to drugs screens and pill counts as requested to ensure compliance and rule out any diversion, medication overuse, inappropriately taking other prescriptions medications or use of illicit substances. Patient understands if either a drug screen or pill count is inappropriate, they will be discharged from the practice. They have agreed to this by way of our mutually signed pain contract scanned into EMR. If a procedure was ordered, the risks of the procedure include, but not limited to, worsening pain, failure to improve pain, bruising, bleeding, infection, medication side effects or allergic reaction to the medications used, tissue injury, nerve injury, nerve palsy or paralysis, transient or permanent weakness, injection of local anesthetic intravascularly or intrathecally resulting in cardiac arrhythmias, fainting, respiratory arrest, spinal cord injury, heart attack, stroke and . If anesthesia or sedation will be used there is a risk for cardiac and respiratory complications including heart attack, stroke, cardiac arrest and . If steroid is given, this can increase blood sugar (if diabetic) and blood pressure (if history of high blood pressure) for several days following the injection.Patient should check both blood pressure and blood sugar regularly and if abnormal should follow-up with their primary care physician. If patient takes a blood thinner or anti-platelet medication, we will request written permission from the managing physician to hold the blood thinner or anti-platelet medication per the LICO guidelines. If the managing physician does not give approval to hold the medication for the duration requested, the procedure will be cancelled. Holding blood thinner or anti-platelet medication can result in increased risk of stroke, heart attack or even when approval by the managing physician is given. documented in this encounter [facility] 04-13-2024 Note [facility] Interventional Pain Management Office Note Patient Name: Cat Carroll Referring Physician: No ref. 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 MRI lumbar spine reviewed and shows recurrent degenerative changes resulting in severe right foraminal narrowing at L5-S1. There is also additional multilevel degenerative changes throughout the rest of her lumbar spine. She is status post lumbar medial branch nerve RFA, bilateral L1, L2, L3 on 01/21/2024. She endorses 95% relief of her low back pain following the ablation. As long as she achieves at least 6 months duration of relief we can certainly repeat this in the future as needed. She also is dealing with trigeminal neuralgia and vertigo symptoms. She follows closely with neurology at [facility] for treatment of trigeminal neuralgia and dizziness. Unfortunately she sustained a fall on 03/16/2024 and was evaluated in the ER at that time and was diagnosed with right rib fractures with displaced fractured ribs 3 through 5 and nondisplaced rib fractures 6 through 8. She continues to deal with a significant amount of pain since the fractures. Analgesia: Patient has inadequate analgesia with the use of current opioid pain medication. Activities of Daily Living: Patient's activities of daily living and psychological functioning have improved sufficiently with use of the current opioid medication. Adverse Effects: Patient reports no adverse effects with use of the opioid pain medication. Aberrant Drug-Taking Behavior: Patient has demonstrated no aberrant drug taking behaviors with no deviation from prescription. She has tried and failed tramadol secondary to side effects. She feels the methadone is no longer effective. We will stop methadone and start a trial of Phoenix 5 mg 3 times daily as needed. Plan: Medications: Start Phoenix 5 mg 3 times daily as needed Follow-up: Return in about 3 months (around 07/11/2024) for Follow-up. Compliance Pain Contract Signed: 09/28/23 OARRS/NARxCheck: 04/13/24 Drug Screen/Pill Count History: UDS 04/13/24: ordered UDS 01/01/24: appropriate UDS 09/28/23: appropriate Narcan offered/ordered: 04/13/24 Opioid Risk Tool (ORT): Gender Male or Female: F (01/01/2024 9:00 AM) Family History of Substance Abuse (Alcohol): 0 (01/01/2024 9:00 AM) Family History of Substance Abuse (Illegal Drugs): 0 (01/01/2024 9:00 AM) Family History of Substance Abuse (Prescription Drugs): 0 (01/01/2024 9:00 AM) Personal History of Substance Abuse (Alcohol): 0 (01/01/2024 9:00 AM) Personal History of Substance Abuse (Illegal Drugs): 0 (01/01/2024 9:00 AM) Personal History of Substance Abuse (Prescription Drugs): 0 (01/01/2024 9:00 AM) History of Preadolescent Sexual Abuse: 0 (01/01/2024 9:00 AM) Psychological Disease: 0 (01/01/2024 9:00 AM) Psychological Disease (Depression): 1 (01/01/2024 9:00 AM) Total : 1 (01/01/2024 9:00 AM) Total Score Risk Category: Low Risk (0-3) (01/01/2024 9:00 AM) Oswestry Disability Index (EZEQUIEL): Oswestry Low Back Disability Index My BACK PAIN at the moment is: 1 (01/01/2024 9:00 AM) Personal care: 1 (01/01/2024 9:00 AM) Lifitn (01/01/2024 9:00 AM) Walkin (01/01/2024 9:00 AM) Sittin (01/01/2024 9:00 AM) Standin (01/01/2024 9:00 AM) Sleepin (01/01/2024 9:00 AM) Sex Life: 5 (01/01/2024 9:00 AM) Social Life: 3 (01/01/2024 9:00 AM) Travelin (01/01/2024 9:00 AM) Oswestry Score: 22 (01/01/2024 9:00 AM) Current Opioid Misuse Measure (COMM): Current Opioid Misuse Measure (COMM) In the past 30 days, how often have you had trouble with thinking clearly or had memory problems?: 0 (04/13/2024 1:00 PM) In the past 30 days, how often do people complain that you are not completing necessary tasks? (i.e., doing things that need to be done, such as going to class, work or appointments) : 0 (04/13/2024 1:00 PM) In the past 30 days, how often have you had to go to someone other than your prescribing physician to get sufficient pain relief from medications? (i.e., another doctor, the Emergency Room, friends, street sources): 2 (04/13/2024 1:00 PM) In the past 30 days, how often have you taken your medications differently from how they are prescribed?: 0 (04/13/2024 1:00 PM) In the past 30 days, how often have you seriously thought about hurting yourself?: 0 (04/13/2024 1:00 (more content not included)... [facility] 04-13-2024 History of Present illness Narrative [facility] Interventional Pain Management Office Note Patient Name: Cat Carroll Referring Physician: No ref. 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 MRI lumbar spine reviewed and shows recurrent degenerative changes resulting in severe right foraminal narrowing at L5-S1. There is also additional multilevel degenerative changes throughout the rest of her lumbar spine. She is status post lumbar medial branch nerve RFA, bilateral L1, L2, L3 on 01/21/2024. She endorses 95% relief of her low back pain following the ablation. As long as she achieves at least 6 months duration of relief we can certainly repeat this in the future as needed. She also is dealing with trigeminal neuralgia and vertigo symptoms. She follows closely with neurology at [facility] for treatment of trigeminal neuralgia and dizziness. Unfortunately she sustained a fall on 03/16/2024 and was evaluated in the ER at that time and was diagnosed with right rib fractures with displaced fractured ribs 3 through 5 and nondisplaced rib fractures 6 through 8. She continues to deal with a significant amount of pain since the fractures. Analgesia: Patient has inadequate analgesia with the use of current opioid pain medication. Activities of Daily Living: Patient's activities of daily living and psychological functioning have improved sufficiently with use of the current opioid medication. Adverse Effects: Patient reports no adverse effects with use of the opioid pain medication. Aberrant Drug-Taking Behavior: Patient has demonstrated no aberrant drug taking behaviors with no deviation from prescription. She has tried and failed tramadol secondary to side effects. She feels the methadone is no longer effective. We will stop methadone and start a trial of Phoenix 5 mg 3 times daily as needed. Plan: Medications: Start Phoenix 5 mg 3 times daily as needed Follow-up: Return in about 3 months (around 07/11/2024) for Follow-up. Compliance Pain Contract Signed: 09/28/23 OARRS/NARxCheck: 04/13/24 Drug Screen/Pill Count History: UDS 04/13/24: ordered UDS 01/01/24: appropriate UDS 09/28/23: appropriate Narcan offered/ordered: 04/13/24 Opioid Risk Tool (ORT): Gender Male or Female: F (01/01/2024 9:00 AM) Family History of Substance Abuse (Alcohol): 0 (01/01/2024 9:00 AM) Family History of Substance Abuse (Illegal Drugs): 0 (01/01/2024 9:00 AM) Family History of Substance Abuse (Prescription Drugs): 0 (01/01/2024 9:00 AM) Personal History of Substance Abuse (Alcohol): 0 (01/01/2024 9:00 AM) Personal History of Substance Abuse (Illegal Drugs): 0 (01/01/2024 9:00 AM) Personal History of Substance Abuse (Prescription Drugs): 0 (01/01/2024 9:00 AM) History of Preadolescent Sexual Abuse: 0 (01/01/2024 9:00 AM) Psychological Disease: 0 (01/01/2024 9:00 AM) Psychological Disease (Depression): 1 (01/01/2024 9:00 AM) Total : 1 (01/01/2024 9:00 AM) Total Score Risk Category: Low Risk (0-3) (01/01/2024 9:00 AM) Oswestry Disability Index (EZEQUIEL): Oswestry Low Back Disability Index My BACK PAIN at the moment is: 1 (01/01/2024 9:00 AM) Personal care: 1 (01/01/2024 9:00 AM) Lifitn (01/01/2024 9:00 AM) Walkin (01/01/2024 9:00 AM) Sittin (01/01/2024 9:00 AM) Standin (01/01/2024 9:00 AM) Sleepin (01/01/2024 9:00 AM) Sex Life: 5 (01/01/2024 9:00 AM) Social Life: 3 (01/01/2024 9:00 AM) Travelin (01/01/2024 9:00 AM) Oswestry Score: 22 (01/01/2024 9:00 AM) Current Opioid Misuse Measure (COMM): Current Opioid Misuse Measure (COMM) In the past 30 days, how often have you had trouble with thinking clearly or had memory problems?: 0 (04/13/2024 1:00 PM) In the past 30 days, how often do people complain that you are not completing necessary tasks? (i.e., doing things that need to be done, such as going to class, work or appointments) : 0 (04/13/2024 1:00 PM) In the past 30 days, how often have you had to go to someone other than your prescribing physician to get sufficient pain relief from medications? (i.e., another doctor, the Emergency Room, friends, street sources): 2 (04/13/2024 1:00 PM) In the past 30 days, how often have you taken your medications differently from how they are prescribed?: 0 (04/13/2024 1:00 PM) In the past 30 days, how often have you seriously thought about hurting yourself?: 0 (04/13/2024 1:00 PM) In the past 30 days, how much of your time was spent thinking about opioid medications (having enough, taking them, dosing schedule, etc.)?: 0 (04/13/2024 1:00 PM) In the past 30 days, how often have you been in an argument?: 0 (04/13/2024 1:00 PM) In the past 30 days, how often have you had trouble controlling your anger (e.g., road rage, screaming, etc.)?: 0 (04/13/2024 1:00 PM) In the past 30 days, how often have you needed to take pain medications belonging to someone else?: 0 (04/13/2024 1:00 PM) In the past 30 days, how often have you been worried about how you're handling your medications?: 0 (04/13/2024 1:00 PM) In the past 30 days, how often have others been worried about how you're handling your medications?: 0 (04/13/2024 1:00 PM) In the past 30 days, how often have you had to make an emergency phone call or show up at the clinic without an appointment?: 0 (04/13/2024 1:00 PM) In the past 30 days, how often have you gotten angry with people?: 0 (04/13/2024 1:00 PM) In the past 30 days, how often have you had to take more of your medication than prescribed?: 2 (04/13/2024 1:00 PM) In the past 30 days, how often have you borrowed pain medication from someone else?: 0 (04/13/2024 1:00 PM) In the past 30 days, how often have you used your pain medicine for symptoms other than for pain (e.g., to help you sleep, improve your mood, or relieve stress)?: 0 (04/13/2024 1:00 PM) In the past 30 days, how often have you had to visit the Emergency Room?: 1 (04/13/2024 1:00 PM) Total Score: 5 (04/13/2024 1:00 PM) COMM: negative If chronic opioids were prescribed, the risk of chronic opioid therapy includes, but not limited constipation, nausea, vomiting, hormonal changes, osteoporosis, developing a tolerance, dependence or addiction to the medication and the possibility of overdose and . Prior to initiating chronic opioid therapy, patient failed many non-opioid therapies including PT, injections/pain procedures, NSAIDs, Tylenol, muscle relaxers and nerve medications. The goal of opioid therapy is to reduce their chronic pain and improve their functional capacity and quality of life. The lowest effective dose will be utilized for the shortest duration possible. Weaning of opioids will always be considered whenever possible. The patient can NOT mix opioids with other sedating medications or substances including marijuana, benzodiazepines, muscle relaxers, nerve medication and alcohol. The patient can only take medication as prescribed. The patient can NOT sell, share or give away their medication. The patient must lock their medication in a safe location away from children and other family members. If patient has a history of sleep apnea or COPD, they are at increased risk of respiratory depression, overdose and given their underlying disease process. It is important to continue to using their CPAP and supplemental oxygen as prescribed. Patient should NOT take their pain medication if they have a respiratory illness as this puts them at increased risk of respiratory depression, overdose and . Narcan is the reversal agent for an opioid overdose. This should always be next to your opioid medication in the event of an opioid overdose. Narcan prescription was ordered upon initiation of chronic opioid therapy and will be offered or ordered at every follow-up visit or sooner if patient requests. Please refer to instructions on medication packet for proper use. Please discuss with your pharmacist if you have any further questions. Patient agrees to submit to drugs screens and pill counts as requested to ensure compliance and rule out any diversion, medication overuse, inappropriately taking other prescriptions medications or use of illicit substances. Patient understands if either a drug screen or pill count is inappropriate, they will be discharged from the practice. They have agreed to this by way of our mutually signed pain contract scanned into EMR. If a pain procedure was ordered, the risks of the procedure include, but not limited to, worsening pain, failure to improve pain, bleeding, infection, nerve injury/paralysis, and headache. The benefits of the procedure included reduction of pain, improvement in functional status and improvement in ability to perform activities of daily living. If steroid is given, this can increase blood sugar (if diabetic) and blood pressure (if history of high blood pressure) for several days following the injection.Patient should check both blood pressure and blood sugar regularly and if abnormal should follow-up with their primary care physician. If patient takes a blood thinner or anti-platelet medication, we will request written permission from the managing physician to hold the blood thinner or anti-platelet medication per the LICO guidelines. If the managing physician does not give approval to hold the medication for the duration requested, the procedure will be cancelled. Holding blood thinner or anti-platelet medication can result in increased risk of stroke, heart attack or even when approval by the managing physician is given. History of Present Illness / Review of Systems Reason for Visit: Follow-up Pain location: Right side of ribs due to fall. Current pain Level: 5 Worst pain Level: 8 Pain description: dull, sharp, stabbing, and aching Radiation: No Sensory changes: No Motor changes: No Duration of pain: >6 months Increases pain: weather changes, evening, and everything Decreases pain: heat and medications, lidocaine patches Patient's Goals: decrease pain, decrease pain with activity, improve ability to perform activities of daily living, improve quality of life, improve sleep, stand longer, and walk further Acceptable level of pain: 3 Additional concerns: none Focused Review of Systems: Loss of bladder control: Yes Loss of bowel control: Denies Saddle anesthesia: Denies Recent falls: Yes Constipation: Denies 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 prior biopsies no dysplasia last biopsies 08/2014 Benign carcinoid tumor of the duodenum 2014 Cancer (HCC) skin cancer-squamous cells removed Chronic kidney disease (CKD), stage III (moderate) (HCC) 09/12/2016 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 [place]rera donna. Dr Hinds BLADDER REPAIR 1989 CATARACT EXT/ECCE Bilateral 2011 Dr [place] CHOLECYSTECTOMY CYST REMOVAL Right 2000 cyst removal from rt breast-benign DILATION AND CURETTAGE (D AND C) 1970 x 2 EGD 01/01/2015 Dr. ZavalaWheksu-Nebpkyfpg-Tcofnkr's esophagus EGD 08/2014 Dr. Vinicius RamachandranA-Tdeqjnaep-Qjiigkf's esophagitis biopsies negative for dysplasia. ESOPHAGOGASTRODUODENOSCOPY 01/04/2018 Dr. Zavala -biopsies performed-Kelly's esophagitis-carcinoid tumor posterior wall duodenum FRACTURE SURGERY Right Plates and screws in rt arm after fracture. dr Dolan LEFT HEART CATH N/A 08/23/2018 Procedure: Left Heart Cath; Surgeon: Glen Fair MD; Location: [facility]; Service: Cardiovascular HYSTERECTOMY 1975 KIDNEY SURGERY 1969 had exploratory surgery d/t floating kidney Dx KNEE SURGERY Left 1997 left knee arthoscopy LUMPECTOMY Left 1989 benign ORIF HIP GAMMA NAIL Right 04/02/2020 IN DSTR NROLYTC AGNT PARVERTEB FCT ADDL LMBR/SACRAL Bilateral 01/21/2024 Procedure: Lumbar medial branch nerve radiofrequency ablation, bilateral lumbar 1-2-3; Surgeon: Jake Navarro DO; Location: Main OR; Service: Pain Management IN DSTR NROLYTC AGNT PARVERTEB FCT SNGL LMBR/SACRAL Bilateral 01/21/2024 Procedure: Lumbar medial branch nerve radiofrequency ablation, bilateral lumbar 1-2-3; Surgeon: Jake Navarro DO; Location: [facility]; Service: Pain Management IN NJX DX/THER AGT PVRT FACET JT LMBR/SAC 1 LEVEL Bilateral 06/18/2023 Procedure: Lumbar medial branch nerve blocks, bilateral lumbar 2-3-4; Surgeon: Jake Navarro DO; Location: [facility]; Service: Pain Management IN NJX DX/THER AGT PVRT FACET JT LMBR/SAC 1 LEVEL Bilateral 07/02/2023 Procedure: Lumbar medial branch nerve blocks, bilateral lumbar 2-3-4; Surgeon: Jake Navarro DO; Location: [facility]; Service: Pain Management SQUAMOUS CELL CARCINOMA EXCISION x4 TOTAL KNEE ARTHROPLASTY Left 2013 dr dolan TUMOR REMOVAL 2012 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 Allergies Allergies: Aspirin; Bacitracin zinc-polymyxin b; Codeine; Diphenhydramine; Gabapentin; Latex, natural rubber; Ytxodqqr-xfybbuvpemr-xsymjxzts; Adhesive tape-silicones; Bacitracin; Carbamazepine; Hydrocortisone; Lidocaine; and Neomycin Medications Current Outpatient Medications Medication Instructions aspirin (ECOTRIN ORAL) Take by mouth . atorvastatin (LIPITOR) 40 mg, Oral, Nightly colestipoL (COLESTID) 1 gram tablet No dose, route, or frequency recorded. D-MANNOSE ORAL DULoxetine (CYMBALTA) 60 mg, Oral, At bedtime DULoxetine (CYMBALTA) 30 mg, Oral, Daily, Total of 90 mg with the 60 mg script estradioL (ESTRACE) 2 g, Vaginal, Daily furosemide (LASIX) 20 mg, Oral, 2 times daily lamoTRIgine (LAMICTAL) 200 mg, Oral, Daily losartan (COZAAR) 50 mg, Oral, Daily methadone (DOLOPHINE) 7.5 mg, 2 times daily MULTIVIT-MIN/IRON/FOLIC/LUTEIN (CENTRUM SILVER WOMEN ORAL) 1 tablet, Daily naloxone (NARCAN) 4 mg/actuation Amanda Administer 1 spray into one nostril for known or suspected opioid overdose. If patient worsens or does not respond, may repeat in 2-3 minutes. nitroGLYCERIN (NITROSTAT) 0.4 mg, Sublingual, Every 5 min PRN, , if no relief after 3 doses call 911 pantoprazole (PROTONIX) 40 mg, Oral, Daily spironolactone (ALDACTONE) 25 mg, Oral, Daily UNIV COMP RX: AMITRIPTYLINE 2%, BACLOFEN 2%, GABAPENTIN 5%, LIDOCAINE 5% EMOLLIENT CREAM 0.5 g, Topical, 3 times daily PRN vibegron (Gemtesa) 75 mg Tab Take by mouth . Social History Social History Socioeconomic History Marital status: Number of children: 2 Years of education: 12 Tobacco Use Smoking status: Former Current packs/day: 0.00 Types: Cigarettes Quit date: 04/03/1976 Years since quittin.0 Passive exposure: Never Smokeless tobacco: Never Vaping Use Vaping status: Never Used Substance and Sexual Activity Alcohol use: No Drug use: No Sexual activity: Never Social Drivers of Health Financial Resource Strain: Low Risk (03/16/2023) Overall Financial Resource Strain (CARDIA) Difficulty of Paying Living Expenses: Not hard at all Food Insecurity: No Food Insecurity (07/08/2023) Hunger Vital Sign Worried About Running Out of Food in the Last Year: Never true Ran Out of Food in the Last Year: Never true Transportation Needs: No Transportation Needs (07/08/2023) PRAPARE - Transportation Lack of Transportation (Medical): No Lack of Transportation (Non-Medical): No Physical Activity: Insufficiently Active (10/15/2021) Exercise Vital Sign Days of Exercise per Week: 2 days Minutes of Exercise per Session: 20 min Stress: Stress Concern Present (10/15/2021) Citizen Of [place] [employer] - Occupational Stress Questionnaire Feeling of Stress : To some extent Social Connections: Moderately Isolated (10/15/2021) Social Connection and Isolation Panel [NHANES] Frequency of Communication with Friends and Family: Twice a week Frequency of Social Gatherings with Friends and Family: Once a week Attends [employer] Services: 1 to 4 times per year Active Member of Clubs or Organizations: No Attends Club or Organization Meetings: Patient declined Marital Status: Housing Stability: Low Risk (07/08/2023) Housing Stability Vital Sign Unable to Pay for Housing in the Last Year: No Number of Places Lived in the Last Year: 1 Unstable Housing in the Last Year: No . Family History family history includes Bipolar disorder in her daughter; Dementia in her sister; Diabetes in her brother, maternal uncle, mother, sister, and son; Heart disease in her brother, father, and mother; Stroke in her father. Physical Exam PACU Vitals 04/13/24 1300 BP: 117/73 Pulse: 90 SpO2: 92% General: No acute distress, atraumatic Cardiovascular: normal rate, no edema Respiratory: non-labored respirations Psychiatric: appropriate mood and affect Lumbar Spine Exam: Lumbar ROM decreased in extension left rotation right rotation Lumbar paraspinal tenderness noted bilaterally Axial Loading: positive bilaterally Other Tests Imaging All imaging and tests below were personally reviewed by me unless otherwise indicated. MRI lumbar spine 04/22/23: FINDINGS: There are 5 lumbar type vertebrae. The spine is imaged from T11 through distal sacrum on sagittal sequences. L5-S1 laminectomy and posterior fusion. Straightening to slight reversal of the expected lumbar lordosis with apex at L2. Mild dextrocurvature apex at L2. No spondylolisthesis. Facets are anatomically aligned. L2-L3 adjacent endplate edema. Multilevel adjacent endplate mixed edema and fatty changes. Vertebral body heights are well-maintained. The visualized cord is within normal limits. The conus medullaris terminates at L1. Degenerative changes as follows: T12-L1: Intervertebral disc height loss and desiccation. Diffuse bulge and facet arthropathy. Minimal thecal sac and mild bilateral neural foraminal narrowing. L1-L2: Intervertebral disc height loss and desiccation with adjacent endplate Modic type 2 changes. Disc osteophyte complex and facet arthropathy. Mild thecal sac narrowing. Vzyz-fg-drlqvyai left and mild right neural foraminal narrowing. L2-L3: Intervertebral disc height loss and desiccation with adjacent endplate Modic type 1 changes. Disc osteophyte complex and facet arthropathy. Moderate thecal sac narrowing. Moderate left and mild right neural foraminal narrowing. L3-L4: Intervertebral disc height loss and desiccation with adjacent endplate Modic type 2 changes. Disc osteophyte complex and facet arthropathy. Byad-eu-klragmmj thecal sac and mild bilateral neural foraminal narrowing. L4-L5: Intervertebral disc height loss and desiccation with adjacent endplate Modic type 2 changes. Disc osteophyte complex and facet arthropathy. Webr-sg-qvxnjqaw thecal sac narrowing. Moderate right and cqdj-dy-jhsorpvp left neural foraminal narrowing. L5-S1: Intervertebral disc height loss and desiccation. L5 inferior endplate Schmorl's node with adjacent endplate Modic type 2 changes. Disc osteophyte complex and facet arthropathy. Thecal sac is decompressed. Severe right and mild left neural foraminal narrowing. Paravertebral structures are unremarkable. IMPRESSION: 1. Surgical changes of L5-S1 laminectomy and posterior fusion. Recurrent degenerative changes resulting in severe right neural foraminal narrowing at this level. 2. Additional multilevel degenerative changes with up to moderate thecal sac narrowing as described. Please correlate with distribution of symptoms and refer to findings section level by level detail. XR lumbar spine 09/02/22: FINDINGS: Five views including lateral flexion and extension. 24 degrees of dextroscoliosis, apex at L2. Status post L5-S1 posterior fusion and decompression. The right L5 transpedicular screw encroaches upon the L4/5 intervertebral disc space. No evidence of hardware loosening. Vertebral body heights are preserved. Severe intervertebral disc space height loss throughout the lumbar spine with endplate osteophytes. The bones are demineralized. Vascular calcifications. IMPRESSION: Status post L5-S1 posterior fusion in similar alignment. Multilevel lumbar spondylosis with 24 degrees of dextroscoliosis, also similar to previous. Thank you for your kind referral. Please do not hesitate to contact me with any questions. Jake Navarro D.O. Interventional Pain Management [facility] Yara sherie Galeana This note was generated using Evolve IP voice recognition software in an effort to expedite communication. Please excuse any resultant grammatical or wording errors. Reason for Visit: Follow-up Pain location: Right side of ribs due to fall. Current pain Level: 5 Worst pain Level: 8 Pain description: dull, sharp, stabbing, and aching Radiation: No Sensory changes: No Motor changes: No Duration of pain: >6 months Increases pain: weather changes, evening, and everything Decreases pain: heat and medications, lidocaine patches Patient's Goals: decrease pain, decrease pain with activity, improve ability to perform activities of daily living, improve quality of life, improve sleep, stand longer, and walk further Acceptable level of pain: 3 Additional concerns: none Focused Review of Systems: Loss of bladder control: Yes Loss of bowel control: Denies Saddle anesthesia: Denies Recent falls: Yes Constipation: Denies documented in this encounter [facility] 04-12-2024 Telephone encounter Note Please renew on the actual prescription and I can sign if not going through electronically [facility] 04-12-2024 Miscellaneous Notes Please renew on the actual prescription and I can sign if not going through electronically Verlin is requesting a refill for Requested Prescriptions Pending Prescriptions Disp Refills UNIV COMP RX: AMITRIPTYLINE 2%, BACLOFEN 2%, GABAPENTIN 5%, LIDOCAINE 5% EMOLLIENT CREAM 30 g 1 Sig: Apply 0.5 g topically 3 (three) times a day as needed . Last refill: 08/10/2023 Last appt: 04/05/2024 Upcoming appt (when is it due or is it scheduled): 05/24/2024 Please send to Will need printed and faxed to [facility] [place] [id number] Follow up: Refill pending for review without additional follow up based on information above. documented in this encounter [facility] 04-12-2024 Telephone encounter Note Verlin is requesting a refill for Requested Prescriptions Pending Prescriptions Disp Refills UNIV COMP RX: AMITRIPTYLINE 2%, BACLOFEN 2%, GABAPENTIN 5%, LIDOCAINE 5% EMOLLIENT CREAM 30 g 1 Sig: Apply 0.5 g topically 3 (three) times a day as needed . Last refill: 08/10/2023 Last appt: 04/05/2024 Upcoming appt (when is it due or is it scheduled): 05/24/2024 Please send to Will need printed and faxed to [facility] [address] [place] [address] [facility] [id number] Follow up: Refill pending for review without additional follow up based on information above. [facility] 04-05-2024 Note Chief Complaint Patient presents with Follow-up 4 month f/u-[facility] nurse has been taking her BP and her BP has been running low, advised her to stop taking the BP medication she takes at night. HPI: Cat Carroll is a 88 y.o. female presenting today for routine check. Former patient of [facility]. Has PMH of prediabetes, coronary artery disease, IA previous, trigeminal neuralgia and chronic low back pain, Kelly's esophagus, fibromyalgia as well as urinary incontinence. Mild systolic dysfunction: Echo last known LVEF of 45 to 50%, repeat echo shows improvement in LVEF of 59% done in September 2022. Continue metoprolol succinate 50 mg daily, losartan 100 mg daily Denies any symptoms of chest pain or shortness of breath. Swelling in the leg is down with adding low-dose Lasix at 20 mg. 03/27: Has been having increased swelling in the leg starting at a.m. even with compression stockings on that she has all days and sometimes sleeping with them at night. Trying to elevate her legs up during the day and taking her Lasix 20 mg twice daily. She denies any associated shortness of breath or chest pain or dizziness with that. History of Present Illness Fall: She experienced a fall on the 03/16 of this month while transitioning from her doorway to the kitchen. She reports no dizziness preceding the fall but mentions an awkward foot twist that resulted in her hitting the right side of her face. She was able to regain her footing by pulling herself up using the kitchen table. She sought emergency care following the fall, where she was prescribed tramadol for pain management. However, she discontinued its use due to adverse effects. She also underwent an MRI and several x-rays during her ER visit, which revealed a spot on her thyroid. She reports no history of thyroid issues. Depression: She has been experiencing anxiety since her cat was taken away by her neighbors, who believed she was unable to care for it due to her health issues. She describes feeling more sad than anxious and expresses a desire to increase her Cymbalta dosage. Hypotension: She has been monitoring her blood pressure at home using a wrist device, although not on a daily basis. She was advised by her home health nurse to discontinue her blood pressure medication approximately 2 to 3 months ago due to low readings. Since then, her blood pressure has gradually increased. She reports no dizziness. She has not had a consultation with Dr. Schroeder in over a year, despite leaving three messages. She continues to take losartan but has discontinued metoprolol. She is also on Lasix twice daily, Lamictal, methadone, spironolactone, and Protonix. She has not required nitroglycerin recently. She reports overall well-being, with the exception of mild soreness and difficulty raising her arms above her head due to increased pain. She notes a significant reduction in leg swelling and has found medical program specialist stockings to be beneficial. Her right shoulder condition is improving. She has been managing her discomfort with Tylenol. MEDICATIONS Current: Tylenol, losartan, Lasix, Lamictal, methadone, spironolactone, Protonix, nitroglycerin, Cymbalta Discontinued: metoprolol, tramadol 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 prior biopsies no dysplasia last biopsies 08/2014 Benign carcinoid tumor of the duodenum 2014 Cancer (HCC) skin cancer-squamous cells removed Chronic kidney disease (CKD), stage III (moderate) ([facility]) 09/12/2016 EGFR 43 Fibromyalgia Floating kidney GERD (gastroesophageal reflux disease) 2010 Hypertension 2000 Macular degeneration 2017 Myocardial infarction (HCC) 08/2018 STEMI Osteoporosis 2010 Trigeminal neuralgia of left side of face 2005 Vertigo Vitamin D deficiency 2016 Past Surgical History: Procedure Laterality Date BACK SURGERY 2014 fusion and rods placed in lower back. Rick thompson. Dr Hinds BLADDER REPAIR 1989 CATARACT EXT/ECCE Bilateral 2011 Dr arambula CHOLECYSTECTOMY CYST REMOVAL Right 2000 cyst removal from rt breast-benign DILATION AND CURETTAGE (D AND C) 1970 x 2 EGD 01/01/2015 Dr. ZavalaFprylv-Dqlqmwthv-Myxdccq's esophagus EGD 08/2014 Dr. Vinicius RamachandranH-Konlpuqhu-Nuakjws's esophagitis biopsies negative for dysplasia. ESOPHAGOGASTRODUODENOSCOPY 01/04/2018 Dr. Zavala -biopsies performed-Kelly's esophagitis-carcinoid tumor posterior wall duodenum FRACTURE SURGERY Right Plates and screws in rt arm after fracture. dr Dolan [facility] LEFT HEART CATH N/A 08/23/2018 Procedure: Left Heart Cath; Surgeon: Glen Fair MD; Location: [facility]; Service: Cardiovascular HYSTERECTOMY 1975 KIDNEY SURGERY 1969 had exploratory surgery d/t floating kidney Dx KNEE SURGERY Left 1997 left knee arthoscopy LUMPECTOMY Left 1989 benign ORIF HIP GAMMA NAIL Right 04/02/2020 IN DST (more content not included)... [facility] 04-05-2024 History of Present illness Narrative Chief Complaint Patient presents with Follow-up 4 month f/u-[facility] nurse has been taking her BP and her BP has been running low, advised her to stop taking the BP medication she takes at night. HPI: Cat Carroll is a 88 y.o. female presenting today for routine check. Former patient of [facility]. Has PMH of prediabetes, coronary artery disease, IA previous, trigeminal neuralgia and chronic low back pain, Kelly's esophagus, fibromyalgia as well as urinary incontinence. Mild systolic dysfunction: Echo last known LVEF of 45 to 50%, repeat echo shows improvement in LVEF of 59% done in September 2022. Continue metoprolol succinate 50 mg daily, losartan 100 mg daily Denies any symptoms of chest pain or shortness of breath. Swelling in the leg is down with adding low-dose Lasix at 20 mg. 03/27: Has been having increased swelling in the leg starting at a.m. even with compression stockings on that she has all days and sometimes sleeping with them at night. Trying to elevate her legs up during the day and taking her Lasix 20 mg twice daily. She denies any associated shortness of breath or chest pain or dizziness with that. History of Present Illness Fall: She experienced a fall on the 03/16 of this month while transitioning from her doorway to the kitchen. She reports no dizziness preceding the fall but mentions an awkward foot twist that resulted in her hitting the right side of her face. She was able to regain her footing by pulling herself up using the kitchen table. She sought emergency care following the fall, where she was prescribed tramadol for pain management. However, she discontinued its use due to adverse effects. She also underwent an MRI and several x-rays during her ER visit, which revealed a spot on her thyroid. She reports no history of thyroid issues. Depression: She has been experiencing anxiety since her cat was taken away by her neighbors, who believed she was unable to care for it due to her health issues. She describes feeling more sad than anxious and expresses a desire to increase her Cymbalta dosage. Hypotension: She has been monitoring her blood pressure at home using a wrist device, although not on a daily basis. She was advised by her home health nurse to discontinue her blood pressure medication approximately 2 to 3 months ago due to low readings. Since then, her blood pressure has gradually increased. She reports no dizziness. She has not had a consultation with Dr. Schroeder in over a year, despite leaving three messages. She continues to take losartan but has discontinued metoprolol. She is also on Lasix twice daily, Lamictal, methadone, spironolactone, and Protonix. She has not required nitroglycerin recently. She reports overall well-being, with the exception of mild soreness and difficulty raising her arms above her head due to increased pain. She notes a significant reduction in leg swelling and has found medical program specialist stockings to be beneficial. Her right shoulder condition is improving. She has been managing her discomfort with Tylenol. MEDICATIONS Current: Tylenol, losartan, Lasix, Lamictal, methadone, spironolactone, Protonix, nitroglycerin, Cymbalta Discontinued: metoprolol, tramadol 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 prior biopsies no dysplasia last biopsies 08/2014 Benign carcinoid tumor of the duodenum 2015 Cancer (HCC) skin cancer-squamous cells removed Chronic kidney disease (CKD), stage III (moderate) ([facility]) 09/12/2016 EGFR 43 Fibromyalgia Floating kidney GERD (gastroesophageal reflux disease) 2010 Hypertension 2000 Macular degeneration 2017 Myocardial infarction ([facility]) 08/2018 STEMI Osteoporosis 2010 Trigeminal neuralgia of left side of face 2005 Vertigo Vitamin D deficiency 2016 Past Surgical History: Procedure Laterality Date BACK SURGERY 2014 fusion and rods placed in lower back. Rick thompson. Dr Hinds BLADDER REPAIR 1989 CATARACT EXT/ECCE Bilateral 2011 Dr arambula CHOLECYSTECTOMY CYST REMOVAL Right 2000 cyst removal from rt breast-benign DILATION AND CURETTAGE (D AND C) 1970 x 2 EGD 01/01/2015 Dr. ZavalaDwlrrr-Lbjrclcug-Foitdru's esophagus EGD 08/2014 Dr. Vinicius RamachandranJ-Rukedlhsx-Onzahxq's esophagitis biopsies negative for dysplasia. ESOPHAGOGASTRODUODENOSCOPY 01/04/2018 Dr. Zavala -biopsies performed-Kelly's esophagitis-carcinoid tumor posterior wall duodenum FRACTURE SURGERY Right Plates and screws in rt arm after fracture. dr Dolan [facility] LEFT HEART CATH N/A 08/23/2018 Procedure: Left Heart Cath; Surgeon: Glen Fair MD; Location: [facility]; Service: Cardiovascular HYSTERECTOMY 1975 KIDNEY SURGERY 1969 had exploratory surgery d/t floating kidney Dx KNEE SURGERY Left 1997 left knee arthoscopy LUMPECTOMY Left 1989 benign ORIF HIP GAMMA NAIL Right 04/02/2020 IN DSTR NROLYTC AGNT PARVERTEB FCT ADDL LMBR/SACRAL Bilateral 01/21/2024 Procedure: Lumbar medial branch nerve radiofrequency ablation, bilateral lumbar 1-2-3; Surgeon: Jake Navarro DO; Location: Main OR; Service: Pain Management IN DSTR NROLYTC AGNT PARVERTEB FCT SNGL LMBR/SACRAL Bilateral 01/21/2024 Procedure: Lumbar medial branch nerve radiofrequency ablation, bilateral lumbar 1-2-3; Surgeon: Jake Navarro DO; Location: Main OR; Service: Pain Management IN NJX DX/THER AGT PVRT FACET JT LMBR/SAC 1 LEVEL Bilateral 06/18/2023 Procedure: Lumbar medial branch nerve blocks, bilateral lumbar 2-3-4; Surgeon: Jake Navarro DO; Location: Main OR; Service: Pain Management IN NJX DX/THER AGT PVRT FACET JT LMBR/SAC 1 LEVEL Bilateral 07/02/2023 Procedure: Lumbar medial branch nerve blocks, bilateral lumbar 2-3-4; Surgeon: Jake Navarro DO; Location: Main OR; Service: Pain Management SQUAMOUS CELL CARCINOMA EXCISION x4 TOTAL KNEE ARTHROPLASTY Left 2013 dr dolan TUMOR REMOVAL 2011 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 Family History Problem Relation Age of Onset Diabetes Mother Heart disease Mother Heart disease Father Stroke Father Diabetes Sister Dementia Sister Heart disease Brother Diabetes Brother Diabetes Maternal Uncle Bipolar disorder Daughter Diabetes Son Cancer Neg Hx Aneurysm Neg Hx Seizures Neg Hx Social History Tobacco Use Smoking status: Former Current packs/day: 0.00 Types: Cigarettes Quit date: 04/03/1976 Years since quittin.0 Passive exposure: Never Smokeless tobacco: Never Vaping Use Vaping status: Never Used Substance Use Topics Alcohol use: No Drug use: No Review of Systems Vitals: 04/05/24 1132 04/05/24 1139 04/05/24 1214 BP: (!) 172/90 (!) 156/81 109/68 BP Location: Right arm Right arm Patient Position: Sitting Sitting BP Cuff Size: Adult Adult Pulse: 98 83 Resp: 16 Temp: 97.8 F (36.6 C) TempSrc: Temporal SpO2: 98% Weight: 54 kg (119 lb) Height: 5' 4 Estimated body mass index is 20.43 kg/m as calculated from the following: Height as of this encounter: 5' 4. Weight as of this encounter: 54 kg (119 lb). Physical Exam Constitutional: General: She is not in acute distress. Appearance: She is not ill-appearing. HENT: Head: Normocephalic and atraumatic. Eyes: Extraocular Movements: Extraocular movements intact. Conjunctiva/sclera: Conjunctivae normal. Pupils: Pupils are equal, round, and reactive to light. Cardiovascular: Rate and Rhythm: Normal rate and regular rhythm. Pulses: Normal pulses. Heart sounds: Normal heart sounds. No murmur heard. No gallop. Pulmonary: Effort: Pulmonary effort is normal. Breath sounds: Normal breath sounds. No wheezing, rhonchi or rales. Chest: Chest wall: No tenderness. Abdominal: General: Abdomen is flat. Bowel sounds are normal. There is no distension. Palpations: Abdomen is soft. There is no mass. Tenderness: There is no abdominal tenderness. There is no right CVA tenderness, left CVA tenderness, guarding or rebound. Musculoskeletal: General: No tenderness. Normal range of motion. Cervical back: Normal range of motion and neck supple. No rigidity. No muscular tenderness. Right lower leg: Edema present. Left lower leg: Edema present. Comments: +2-3 pitting edema up to the knees bilaterally Lymphadenopathy: Cervical: No cervical adenopathy. Skin: General: Skin is warm. Findings: No erythema or rash. Neurological: General: No focal deficit present. Mental Status: She is alert and oriented to person, place, and time. Sensory: No sensory deficit. Motor: No weakness. Coordination: Coordination normal. Gait: Gait normal. Psychiatric: Mood and Affect: Mood normal. Behavior: Behavior normal. Thought Content: Thought content normal. Judgment: Judgment normal. OARRS/NARxCHECK Report Received and Assessed: Jake Navarro DO on 01/01/2024 10:03 AM Date controlled substance agreement signed: 01/01/2024 Date of last drug screen: @Exam@ PHQ9: JOHNATHON-7 Tobacco Counseling: Counseling given: Not Answered Patient's Medications New Prescriptions DULOXETINE (CYMBALTA) 30 MG CAPSULE Take 1 (one) capsule (30 mg total) by mouth daily Total of 90 mg with the 60 mg script . Previous Medications ASPIRIN (ECOTRIN ORAL) Take by mouth . ATORVASTATIN (LIPITOR) 40 MG TABLET Take 1 (one) tablet (40 mg total) by mouth nightly . COLESTIPOL (COLESTID) 1 GRAM TABLET D-MANNOSE ORAL DULOXETINE (CYMBALTA) 60 MG CAPSULE Take 1 (one) capsule (60 mg total) by mouth at bedtime . ESTRADIOL (ESTRACE) 0.01 % (0.1 MG/GRAM) VAGINAL CREAM Insert 2 (two) g into the vagina daily . FUROSEMIDE (LASIX) 20 MG TABLET Take 1 (one) tablet (20 mg total) by mouth 2 (two) times a day . LAMOTRIGINE (LAMICTAL) 200 MG TABLET Take 1 (one) tablet (200 mg total) by mouth daily . LOSARTAN (COZAAR) 50 MG TABLET Take 1 (one) tablet (50 mg total) by mouth daily . METHADONE (DOLOPHINE) 5 MG TABLET Take 1.5 (one and a half) tablets (7.5 mg total) by mouth 2 (two) times a day (Days supply per fill: 30) Start: 03/11/24. MULTIVIT-MIN/IRON/FOLIC/LUTEIN (CENTRUM SILVER WOMEN ORAL) Take 1 tablet by mouth daily. NALOXONE (NARCAN) 4 MG/ACTUATION SPRY Administer 1 spray into one nostril for known or suspected opioid overdose. If patient worsens or does not respond, may repeat in 2-3 minutes. . PANTOPRAZOLE (PROTONIX) 40 MG TABLET Take 1 (one) tablet (40 mg total) by mouth daily . SPIRONOLACTONE (ALDACTONE) 25 MG TABLET Take 1 (one) tablet (25 mg total) by mouth daily . UNIV COMP RX: AMITRIPTYLINE 2%, BACLOFEN 2%, GABAPENTIN 5%, LIDOCAINE 5% EMOLLIENT CREAM Apply 0.5 g topically 3 (three) times a day as needed . VIBEGRON (GEMTESA) 75 MG TAB Take by mouth . Modified Medications Modified Medication Previous Medication NITROGLYCERIN (NITROSTAT) 0.4 MG SL TABLET nitroGLYCERIN (NITROSTAT) 0.[address] 1 (one) tablet (0.4 mg total) under the tongue every 5 (five) minutes as needed for chest pain , if no relief after 3 doses call [address] 1 (one) tablet (0.4 mg total) under the tongue every 5 (five) minutes as needed for chest pain , if no relief after 3 doses call 911 . Discontinued Medications METOPROLOL SUCCINATE (TOPROL-XL) 50 MG 24 HR TABLET Take 1 (one) tablet (50 mg total) by mouth at bedtime . Health Maintenance Due Topic Date Due Zoster Vaccines (1 of 2) Never done Respiratory Syncytial Virus Immunization: Risk, 60-74 Risk, or 75+ (1 - 1-dose 75+ series) Never done COVID-19 Vaccine (2023- season) 2023 Depression Remission Assessment (PHQ9) 12/22/2023 Falls Risk Assessment 05/10/2024 Assessment & Plan Problem List Items Addressed This Visit Digestive Carcinoid tumor of small intestine Respiratory Chronic bronchitis (HCC) Cardiovascular and Mediastinum Hypertension Other Anxiety Moderate major depression (HCC) Relevant Medications DULoxetine (CYMBALTA) 30 MG capsule Fall - Primary Other Visit Diagnoses Chronic systolic heart failure (HCC) Relevant Medications nitroGLYCERIN (NITROSTAT) 0.4 MG SL tablet Left thyroid nodule Relevant Orders US Thyroid Only Assessment & Plan 1. Fall. The fall on the of this month was likely due to a mechanical misstep rather than dizziness. She reported soreness and difficulty raising her arms over her head, but no significant injuries were noted. She was prescribed tramadol for pain management. However, she discontinued its use due to adverse effects. She is currently managing the pain with Tylenol. She was advised to avoid tramadol due to its potential interaction with methadone. 2. Blood pressure management. Her blood pressure readings have been inconsistent, with some measurements in the range of 130s/90s, 110s/80s, 104/70, and 142/105. She has been off metoprolol for 2-3 months as advised by her home health nurse due to low readings. She continues to take losartan. The dosage of losartan will be increased to 50 mg twice daily. She is advised to continue monitoring her blood pressure at home and bring her machine to the next visit for calibration. She should call in with her blood pressure readings in 2 weeks. 3. Anxiety. She reports increased sadness and anxiety following the removal of her cat by her neighbors. The dosage of Cymbalta will be increased to 90 mg daily. A prescription for 30 mg capsules will be sent to [facility] to be combined with her current 60 mg dose. She is advised to report any dizziness. 4. Thyroid nodule. A nodule was identified on the left side of her thyroid during a recent ER visit. Previous thyroid function tests were normal. An ultrasound of the thyroid will be ordered to further evaluate the nodule. She is advised to inform the office if she does not receive a call for the ultrasound appointment by next week. 5. Medication management. A refill for nitroglycerin will be provided. She is advised to keep it on hand for emergencies. Follow-up The patient will follow up in 3 months. Return in about 2 months (around 06/03/2024) for Follow Up, bring BP machine in . My ongoing relationship with Cat Carroll requires continued responsibility and cognitive effort of being the focal point for all services related to serious condition(s). After discussing the use of ambient listening and audio recording in generating medical documentation, the patient verbally consented to use of this technology for today's visit. I spent 40 mins with patient reviewing HPI and coordinating plan of care. CLAUDINE MAJANO MD [facility] [address] [place] [id number] Dept: [phone] 02/11/2022 1:43 PM 07/25/2022 1:32 PM 02/20/2023 12:00 PM 02/25/2023 7:01 AM 05/11/2023 8:01 AM 05/20/2023 11:40 AM 07/09/2023 8:23 AM Depression Screening Little interest or pleasure in doing things 0 1 3 2 0 0 0 Feeling down, depressed, or hopeless 0 1 3 2 0 0 0 PHQ-2 Total Score 0 2 6 4 0 0 0 Trouble falling or staying asleep, or sleeping too much 1 0 2 3 0 Feeling tired or having little energy 1 1 1 2 0 Poor appetite or overeating 0 0 1 2 0 Feeling bad about yourself - or that you are a failure or have let yourself or your family down 0 0 0 0 0 Trouble concentrating on things, such as reading the newspaper or watching television 0 0 1 1 0 Moving or speaking so slowly that other people could have noticed. Or the opposite - being so fidgety or restless that you have been moving around a lot more than usual 0 0 0 0 0 Thoughts that you would be better off , or of hurting yourself in some way 0 0 1 1 0 PHQ-9 Total Score 2 3 12 13 0 If you checked off any problems, how difficult have these problems made it for you to do your work, take care of things at home, or get along with other people? Not difficult at all Not difficult at all Very difficult Not difficult at all Not difficult at all 02/11/2022 1:43 PM 07/25/2022 1:32 PM 02/20/2023 12:00 PM 02/25/2023 7:01 AM 05/11/2023 8:01 AM 05/20/2023 11:40 AM 07/09/2023 8:23 AM Depression Screening Little interest or pleasure in doing things 0 1 3 2 0 0 0 Feeling down, depressed, or hopeless 0 1 3 2 0 0 0 PHQ-2 Total Score 0 2 6 4 0 0 0 Trouble falling or staying asleep, or sleeping too much 1 0 2 3 0 Feeling tired or having little energy 1 1 1 2 0 Poor appetite or overeating 0 0 1 2 0 Feeling bad about yourself - or that you are a failure or have let yourself or your family down 0 0 0 0 0 Trouble concentrating on things, such as reading the newspaper or watching television 0 0 1 1 0 Moving or speaking so slowly that other people could have noticed. Or the opposite - being so fidgety or restless that you have been moving around a lot more than usual 0 0 0 0 0 Thoughts that you would be better off , or of hurting yourself in some way 0 0 1 1 0 PHQ-9 Total Score 2 3 12 13 0 If you checked off any problems, how difficult have these problems made it for you to do your work, take care of things at home, or get along with other people? Not difficult at all Not difficult at all Very difficult Not difficult at all Not difficult at all documented in this encounter [facility] 01-21-2024 Note Pre-Procedural Histo ry and Physical Update Patient Name: Cat Carroll Admit Date: [id number] MR #: [id number] : 1935 Physicians: Claudine Majano MD Interval History: Cat Carroll presents today for lumbar medial branch nerve RFA. The patient reports no interval changes to their health history since the last office visit or pre-admission encounter. The pain remains consistent to their previously documented history. The pain has been present for more than 6 months. Pain score is typically greater than 5/10. Conservative approaches such as medication use, physical therapy modalities and avoidance have not improved the symptoms in the past. The symptoms inhibit at least in part basic activity of daily living. 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 prior biopsies no dysplasia last biopsies 08/2014 Benign carcinoid tumor of the duodenum 2014 Cancer (HCC) skin cancer-squamous cells removed Chronic kidney disease (CKD), stage III (moderate) (HCC) 09/12/2016 EGFR 43 Fibromyalgia Floating kidney GERD (gastroesophageal reflux disease) 2009 Hypertension 2000 Macular degeneration 2017 Myocardial infarction (HCC) 08/2018 STEMI Osteoporosis 2010 Trigeminal neuralgia of left side of face 2005 Vertigo Vitamin D deficiency 2016 , Past Surgical History: Procedure Laterality Date BACK SURGERY 2013 fusion and rods placed in lower back. Rick thompson. Dr Hinds BLADDER REPAIR 1989 CATARACT EXT/ECCE Bilateral 2011 Dr [place] CHOLECYSTECTOMY CYST REMOVAL Right 2000 cyst removal from rt breast-benign DILATION AND CURETTAGE (D AND C) 1970 x 2 EGD 01/01/2015 Dr. AlemanWtqbnv-Wxppidrfd-Kewwflp's esophagus EGD 08/2014 Dr. Vinicius Pruett-Barrett's esophagitis biopsies negative for dysplasia. ESOPHAGOGASTRODUODENOSCOPY 01/04/2018 Dr. Zavala -biopsies performed-Kelly's esophagitis-carcinoid tumor posterior wall duodenum FRACTURE SURGERY Right Plates and screws in rt arm after fracture. dr Dolan [facility] LEFT HEART CATH N/A 08/23/2018 Procedure: Left Heart Cath; Surgeon: Glen Fair MD; Location: [facility]; Service: Cardiovascular HYSTERECTOMY 1974 KIDNEY SURGERY 1968 had exploratory surgery d/t floating kidney Dx KNEE SURGERY Left 1997 left knee arthoscopy LUMPECTOMY Left 1989 benign ORIF HIP GAMMA NAIL Right 04/02/2020 IN NJX DX/THER AGT PVRT FACET JT LMBR/SAC 1 LEVEL Bilateral 06/18/2023 Procedure: Lumbar medial branch nerve blocks, bilateral lumbar 2-3-4; Surgeon: Jake Navarro DO; Location: Main OR; Service: Pain Management IN NJX DX/THER AGT PVRT FACET JT LMBR/SAC 1 LEVEL Bilateral 07/02/2023 Procedure: Lumbar medial branch nerve blocks, bilateral lumbar 2-3-4; Surgeon: Jake Navarro DO; Location: Main OR; Service: Pain Management SQUAMOUS CELL CARCINOMA EXCISION x4 TOTAL KNEE ARTHROPLASTY Left 2012 dr dolan TUMOR REMOVAL 2011 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 Medications: Current Outpatient Medications Medication Instructions aspirin (ECOTRIN ORAL) Take by mouth . atorvastatin (LIPITOR) 40 mg, Oral, Nightly colestipoL (COLESTID) 1 gram tablet No dose, route, or frequency recorded. D-MANNOSE ORAL DULoxetine (CYMBALTA) 60 mg, Oral, At bedtime estradioL (ESTRACE) 2 g, Vaginal, Daily furosemide (LASIX) 20 mg, Oral, 2 times daily lamoTRIgine (LAMICTAL) 200 mg, Oral, Daily losartan (COZAAR) 50 mg, Oral, Daily methadone (DOLOPHINE) 7.5 mg, Oral, 2 times daily, (Days supply per fill: 30) [START ON 02/10/2024] methadone (DOLOPHINE) 7.5 mg, Oral, 2 times daily, (Days supply per fill: 30) [START ON 03/11/2024] methadone (DOLOPHINE) 7.5 mg, Oral, 2 times daily, (Days supply per fill: 30) metoprolol succinate (TOPROL-XL) 50 mg, Oral, At bedtime MULTIVIT-MIN/IRON/FOLIC/LUTEIN (CENTRUM SILVER WOMEN ORAL) 1 tablet, Oral, Daily naloxone (NARCAN) 4 mg/actuation Amanda Administer 1 spray into one nostril for known or suspected opioid overdose. If patient worsens or does not respond, may repeat in 2-3 minutes. nitroGLYCERIN (NITROSTAT) 0.4 mg, Sublingual, Every 5 min PRN, , if no relief after 3 doses call 911 pantoprazole (PROTONIX) 40 mg, Oral, Daily spironolactone (ALDACTONE) 25 mg, Oral, Daily UNIV COMP RX: AMITRIPTYLINE 2%, BACLOFEN 2%, GABAPENTIN 5%, LIDOCAINE 5% EMOLLIENT CREAM 0.5 g, Topical, 3 times daily PRN vibegron (Gemtesa) 75 mg Tab Oral Allergies: Allergies Allergen Reactions Aspirin GI Intolerance Indigestion Bacitracin Zinc-Polymyxin B Codeine Unknown Diphenhydramine Hives and Itching Gabapentin Other (See Comments) and GI Intolerance Latex, Natural Rubber Unknown Yvdzdmjh-Jnvykvvgjbc-Ooxtzvkwe Adhesive Tape-Silicones Rash Bacitracin Rash Carbamazepine Anxiety, Dizziness only and GI Intolerance Hydroc (more content not included)... [facility] 01-21-2024 Note PROCEDURE NOTE PATIENT: Cat Carroll 1935 PROCEDURE DATE: 01/21/24 PROCEDURE: Bilateral L1, L2, L3 Medial Branch Nerve Radiofrequency Ablation under Fluoroscopy. ANESTHESIA: Local ESTIMATED BLOOD LOSS: None PROCEDURE IN DETAIL: The patient was taken to the procedure room and placed in a prone, padded position on the procedure table. The patient was sterilely prepped and draped such the sterile field was created. Timeout was performed per hospital protocol. Next fluoroscopy was used to identify the right Lumbar 1 level, and the superior endplate was squared. An ipsilateral oblique tilt to the procedure side of approximately 5 degrees brought the superior articulating process and transverse process bony junction into view. A skin wheal was made with a 25 gauge hypodermic needle using lidocaine 1%. then obtained an 18- gauge, 100 mm length trident cannula/probe unit with a 5 mm active tip and advanced it through the skin and subcutaneous tissue until contact was made with the bony junction. Lateral view was obtained to confirm depth. Trident probes were then deployed. In conjunction with the nursing staff, motor simulation performed. At 2 Hz and 2 V multifidus contracture was noted but no distal lower extremity contracture. I then administered 1 mL of injectate containing 10 mg dexamethasone and 5 mL of 1% lidocaine PF through the side port. I then placed probes at the subsequent levels of Lumbar 2 and Lumbar 3. Once all probes were placed, motor thresholds confirmed and administration of 1 mL of injectate containing 10 mg dexamethasone PF and 5 mL of 1% lidocaine PF was delivered through side port, then ablation ensued. We ablated each area at 80 degrees with a target tissue temperature of 80 degrees for 2 minutes. The same procedure and process was completed on the contralateral side as previously described. After all intended levels were treated, was administered through the side ports at all needle sites. Finally, needles removed from the patient, bandages were placed over the injection site. The patient tolerated the procedure well with good communication throughout. The patient was undraped and escorted back to the recovery area and observed. The patient was taken to the procedure room and placed in a prone, padded position on the procedure table. The patient was sterilely prepped and draped such the sterile field was created. Timeout was performed per hospital protocol. After all intended levels were treated, was administered through the side ports at all needle sites. Finally, needles removed from the patient, bandages were placed over the injection site. The patient tolerated the procedure well with good communication throughout. The patient was undraped and escorted back to the recovery area and observed. COMPLICATIONS: No immediate complications were noted or reported to me. CONDITION: Stable. DISPOSITION: To preoperative state. The patient was discharged per protocol once criteria was met. Discharge instructions were provided to the patient. Jake Navarro DO AUTHENTICATED BY JAKE NAVARRO, ON 01/21/2024 11:03:02 [facility] 01-08-2024 Telephone encounter Note Cat is requesting a refill for Requested Prescriptions Pending Prescriptions Disp Refills pantoprazole (PROTONIX) 40 MG tablet Sig: Take 1 (one) tablet (40 mg total) by mouth daily . Last refill: 05/30/2023 Last appt: 12/24/2023 Upcoming appt (when is it due or is it scheduled): 03/29/2024 Please send to [facility] #[id number] - [place], [place] - [address] [phone] Follow up: Refill pending for review without additional follow up based on information above. [facility] 01-08-2024 Miscellaneous Notes Cat is requesting a refill for Requested Prescriptions Pending Prescriptions Disp Refills pantoprazole (PROTONIX) 40 MG tablet Sig: Take 1 (one) tablet (40 mg total) by mouth daily . Last refill: 05/30/2023 Last appt: 12/24/2023 Upcoming appt (when is it due or is it scheduled): 03/29/2024 Please send to [id number] - [place], [facility] [address] [phone] Follow up: Refill pending for review without additional follow up based on information above. documented in this encounter [facility] 01-01-2024 Jake Douglass DO - 01/01/2024 10:09 AM EDT If chronic opioids were prescribed, the risk of chronic opioid therapy includes, but not limited constipation, nausea, vomiting, hormonal changes, osteoporosis, developing a tolerance, dependence or addiction to the medication and the possibility of overdose and . Prior to initiating chronic opioid therapy, patient failed many non-opioid therapies including PT, injections/pain procedures, NSAIDs, Tylenol, muscle relaxers and nerve medications. The goal of opioid therapy is to reduce their chronic pain and improve their functional capacity and quality of life. The lowest effective dose will be utilized for the shortest duration possible. Weaning of opioids will always be considered whenever possible. The patient can NOT mix opioids with other sedating medications or substances including marijuana, benzodiazepines, muscle relaxers, nerve medication and alcohol. The patient can only take medication as prescribed. The patient can NOT sell, share or give away their medication. The patient must lock their medication in a safe location away from children and other family members. If patient has a history of sleep apnea or COPD, they are at increased risk of respiratory depression, overdose and given their underlying disease process. It is important to continue to using their CPAP and supplemental oxygen as prescribed. Patient should NOT take their pain medication if they have a respiratory illness as this puts them at increased risk of respiratory depression, overdose and . Narcan is the reversal agent for an opioid overdose. This should always be next to your opioid medication in the event of an opioid overdose. Narcan prescription was ordered upon initiation of chronic opioid therapy and will be offered or ordered at every follow-up visit or sooner if patient requests. Please refer to instructions on medication packet for proper use. Please discuss with your pharmacist if you have any further questions. Patient agrees to submit to drugs screens and pill counts as requested to ensure compliance and rule out any diversion, medication overuse, inappropriately taking other prescriptions medications or use of illicit substances. Patient understands if either a drug screen or pill count is inappropriate, they will be discharged from the practice. They have agreed to this by way of our mutually signed pain contract scanned into EMR. If a pain procedure was ordered, the risks of the procedure include, but not limited to, worsening pain, failure to improve pain, bleeding, infection, nerve injury/paralysis, and headache. The benefits of the procedure included reduction of pain, improvement in functional status and improvement in ability to perform activities of daily living. If steroid is given, this can increase blood sugar (if diabetic) and blood pressure (if history of high blood pressure) for several days following the injection.Patient should check both blood pressure and blood sugar regularly and if abnormal should follow-up with their primary care physician. If patient takes a blood thinner or anti-platelet medication, we will request written permission from the managing physician to hold the blood thinner or anti-platelet medication per the LICO guidelines. If the managing physician does not give approval to hold the medication for the duration requested, the procedure will be cancelled. Holding blood thinner or anti-platelet medication can result in increased risk of stroke, heart attack or even when approval by the managing physician is given. documented in this encounter [facility] 01-01-2024 Note [facility] Interventional Pain Management Office Note Patient Name: Cat Carroll Referring Physician: No ref. provider found Date of : 1935 PCP: Claudine Majano MD Date of Service: 01/01/24 Assessment & Plan Assessment: Failed back surgery syndrome Posterior fusion, L5-S1 Lumbar spondylosis Lumbar spinal stenosis Lumbar degenerative disease Trigeminal neuralgia Chronic pain syndrome Chronic continuous opioid use Narrative: She presented with chronic low back pain secondary to combination of lumbar spondylosis, lumbar degenerative disease and a component of failed back surgery syndrome following a posterior fusion L5-S1. MRI lumbar spine reviewed and shows recurrent degenerative changes resulting in severe right foraminal narrowing at L5-S1. There is also additional multilevel degenerative changes throughout the rest of her lumbar spine. It appears most of her pain is secondary to adjacent segment disease related to facet arthropathy. She is status post lumbar medial branch nerve blocks, bilateral L1, L2, L3 x 2 with greater than 80% improvement pain and function for the duration of the local anesthetic. We will schedule lumbar medial branch nerve radiofrequency ablation, bilateral L1, L2, L3. She is scheduled for 01/21/24. She also is dealing with trigeminal neuralgia and vertigo symptoms. She follows closely with neurology at [facility] for treatment of trigeminal neuralgia and dizziness. I explained that I do not do the blocks for trigeminal neuralgia and she would likely need to be referred to a tertiary center at [facility] in the future if this pain worsens. She was maintained on methadone 10 mg twice daily by a previous pain provider. I did discuss at a previous visit that this is a high dose for chronic noncancer pain. She states that is was adequately controlled her pain and she denies any side effects. She does endorse inadequate relief on her current regimen. She feels the 5 mg is not nearly as effective as the 10 was. We will increase methadone to 7.5 mg twice daily as needed Analgesia: Patient has inadequate analgesia with the use of current opioid pain medication. Activities of Daily Living: Patient's activities of daily living and psychological functioning have improved sufficiently with use of the current opioid medication. Adverse Effects: Patient reports no adverse effects with use of the opioid pain medication. Aberrant Drug-Taking Behavior: Patient has demonstrated no aberrant drug taking behaviors with no deviation from prescription. EKG 06/2023: Qtc 451 Plan: Medications: Continue methadone 5 mg BID prn Follow-up: Return in about 3 months (around 04/02/2024) for Follow-up. Compliance Pain Contract Signed: 09/28/23 OARRS/NARxCheck: 01/01/24 Drug Screen/Pill Count History: UDS 01/01/24: pending UDS 09/28/23: appropriate Narcan offered/ordered: 01/01/24 Opioid Risk Tool (ORT): Gender Male or Female: F (01/01/2024 9:00 AM) Family History of Substance Abuse (Alcohol): 0 (01/01/2024 9:00 AM) Family History of Substance Abuse (Illegal Drugs): 0 (01/01/2024 9:00 AM) Family History of Substance Abuse (Prescription Drugs): 0 (01/01/2024 9:00 AM) Personal History of Substance Abuse (Alcohol): 0 (01/01/2024 9:00 AM) Personal History of Substance Abuse (Illegal Drugs): 0 (01/01/2024 9:00 AM) Personal History of Substance Abuse (Prescription Drugs): 0 (01/01/2024 9:00 AM) History of Preadolescent Sexual Abuse: 0 (01/01/2024 9:00 AM) Psychological Disease: 0 (01/01/2024 9:00 AM) Psychological Disease (Depression): 1 (01/01/2024 9:00 AM) Total : 1 (01/01/2024 9:00 AM) Total Score Risk Category: Low Risk (0-3) (01/01/2024 9:00 AM) Oswestry Disability Index (EZEQUIEL): Oswestry Low Back Disability Index My BACK PAIN at the moment is: 1 (01/01/2024 9:00 AM) Personal care: 1 (01/01/2024 9:00 AM) Lifitn (01/01/2024 9:00 AM) Walkin (01/01/2024 9:00 AM) Sittin (01/01/2024 9:00 AM) Standin (01/01/2024 9:00 AM) Sleepin (01/01/2024 9:00 AM) Sex Life: 5 (01/01/2024 9:00 AM) Social Life: 3 (01/01/2024 9:00 AM) Travelin (01/01/2024 9:00 AM) Oswestry Score: 22 (01/01/2024 9:00 AM) Current Opioid Misuse Measure (COMM): If chronic opioids were prescribed, the risk of chronic opioid therapy includes, but not limited constipation, nausea, vomiting, hormonal changes, osteoporosis, developing a tolerance, dependence or addiction to the medication and the possibility of overdose and . Prior to initiating chronic opioid therapy, patient failed many non-opioid therapies including PT, injections/pain procedures, NSAIDs, Tylenol, muscle relaxers and nerve medications. The goal of opioid therapy is to reduce their chronic pain and improve their functional capacity and quality of life. The lowe (more content not included)... [facility] 01-01-2024 History of Present illness Narrative [facility] Interventional Pain Management Office Note Patient Name: Cat Carroll Referring Physician: No ref. provider found Date of : 1935 PCP: Claudine Majano MD Date of Service: 01/01/24 Assessment & Plan Assessment: Failed back surgery syndrome Posterior fusion, L5-S1 Lumbar spondylosis Lumbar spinal stenosis Lumbar degenerative disease Trigeminal neuralgia Chronic pain syndrome Chronic continuous opioid use Narrative: She presented with chronic low back pain secondary to combination of lumbar spondylosis, lumbar degenerative disease and a component of failed back surgery syndrome following a posterior fusion L5-S1. MRI lumbar spine reviewed and shows recurrent degenerative changes resulting in severe right foraminal narrowing at L5-S1. There is also additional multilevel degenerative changes throughout the rest of her lumbar spine. It appears most of her pain is secondary to adjacent segment disease related to facet arthropathy. She is status post lumbar medial branch nerve blocks, bilateral L1, L2, L3 x 2 with greater than 80% improvement pain and function for the duration of the local anesthetic. We will schedule lumbar medial branch nerve radiofrequency ablation, bilateral L1, L2, L3. She is scheduled for 01/21/24. She also is dealing with trigeminal neuralgia and vertigo symptoms. She follows closely with neurology at [facility] for treatment of trigeminal neuralgia and dizziness. I explained that I do not do the blocks for trigeminal neuralgia and she would likely need to be referred to a tertiary center at [facility] in the future if this pain worsens. She was maintained on methadone 10 mg twice daily by a previous pain provider. I did discuss at a previous visit that this is a high dose for chronic noncancer pain. She states that is was adequately controlled her pain and she denies any side effects. She does endorse inadequate relief on her current regimen. She feels the 5 mg is not nearly as effective as the 10 was. We will increase methadone to 7.5 mg twice daily as needed Analgesia: Patient has inadequate analgesia with the use of current opioid pain medication. Activities of Daily Living: Patient's activities of daily living and psychological functioning have improved sufficiently with use of the current opioid medication. Adverse Effects: Patient reports no adverse effects with use of the opioid pain medication. Aberrant Drug-Taking Behavior: Patient has demonstrated no aberrant drug taking behaviors with no deviation from prescription. EKG 06/2023: Qtc 451 Plan: Medications: Continue methadone 5 mg BID prn Follow-up: Return in about 3 months (around 04/02/2024) for Follow-up. Compliance Pain Contract Signed: 09/28/23 OARRS/NARxCheck: 01/01/24 Drug Screen/Pill Count History: UDS 01/01/24: pending UDS 09/28/23: appropriate Narcan offered/ordered: 01/01/24 Opioid Risk Tool (ORT): Gender Male or Female: F (01/01/2024 9:00 AM) Family History of Substance Abuse (Alcohol): 0 (01/01/2024 9:00 AM) Family History of Substance Abuse (Illegal Drugs): 0 (01/01/2024 9:00 AM) Family History of Substance Abuse (Prescription Drugs): 0 (01/01/2024 9:00 AM) Personal History of Substance Abuse (Alcohol): 0 (01/01/2024 9:00 AM) Personal History of Substance Abuse (Illegal Drugs): 0 (01/01/2024 9:00 AM) Personal History of Substance Abuse (Prescription Drugs): 0 (01/01/2024 9:00 AM) History of Preadolescent Sexual Abuse: 0 (01/01/2024 9:00 AM) Psychological Disease: 0 (01/01/2024 9:00 AM) Psychological Disease (Depression): 1 (01/01/2024 9:00 AM) Total : 1 (01/01/2024 9:00 AM) Total Score Risk Category: Low Risk (0-3) (01/01/2024 9:00 AM) Oswestry Disability Index (EZEQUIEL): Oswestry Low Back Disability Index My BACK PAIN at the moment is: 1 (01/01/2024 9:00 AM) Personal care: 1 (01/01/2024 9:00 AM) Lifitn (01/01/2024 9:00 AM) Walkin (01/01/2024 9:00 AM) Sittin (01/01/2024 9:00 AM) Standin (01/01/2024 9:00 AM) Sleepin (01/01/2024 9:00 AM) Sex Life: 5 (01/01/2024 9:00 AM) Social Life: 3 (01/01/2024 9:00 AM) Travelin (01/01/2024 9:00 AM) Oswestry Score: 22 (01/01/2024 9:00 AM) Current Opioid Misuse Measure (COMM): If chronic opioids were prescribed, the risk of chronic opioid therapy includes, but not limited constipation, nausea, vomiting, hormonal changes, osteoporosis, developing a tolerance, dependence or addiction to the medication and the possibility of overdose and . Prior to initiating chronic opioid therapy, patient failed many non-opioid therapies including PT, injections/pain procedures, NSAIDs, Tylenol, muscle relaxers and nerve medications. The goal of opioid therapy is to reduce their chronic pain and improve their functional capacity and quality of life. The lowest effective dose will be utilized for the shortest duration possible. Weaning of opioids will always be considered whenever possible. The patient can NOT mix opioids with other sedating medications or substances including marijuana, benzodiazepines, muscle relaxers, nerve medication and alcohol. The patient can only take medication as prescribed. The patient can NOT sell, share or give away their medication. The patient must lock their medication in a safe location away from children and other family members. If patient has a history of sleep apnea or COPD, they are at increased risk of respiratory depression, overdose and given their underlying disease process. It is important to continue to using their CPAP and supplemental oxygen as prescribed. Patient should NOT take their pain medication if they have a respiratory illness as this puts them at increased risk of respiratory depression, overdose and . Narcan is the reversal agent for an opioid overdose. This should always be next to your opioid medication in the event of an opioid overdose. Narcan prescription was ordered upon initiation of chronic opioid therapy and will be offered or ordered at every follow-up visit or sooner if patient requests. Please refer to instructions on medication packet for proper use. Please discuss with your pharmacist if you have any further questions. Patient agrees to submit to drugs screens and pill counts as requested to ensure compliance and rule out any diversion, medication overuse, inappropriately taking other prescriptions medications or use of illicit substances. Patient understands if either a drug screen or pill count is inappropriate, they will be discharged from the practice. They have agreed to this by way of our mutually signed pain contract scanned into EMR. If a pain procedure was ordered, the risks of the procedure include, but not limited to, worsening pain, failure to improve pain, bleeding, infection, nerve injury/paralysis, and headache. The benefits of the procedure included reduction of pain, improvement in functional status and improvement in ability to perform activities of daily living. If steroid is given, this can increase blood sugar (if diabetic) and blood pressure (if history of high blood pressure) for several days following the injection.Patient should check both blood pressure and blood sugar regularly and if abnormal should follow-up with their primary care physician. If patient takes a blood thinner or anti-platelet medication, we will request written permission from the managing physician to hold the blood thinner or anti-platelet medication per the LICO guidelines. If the managing physician does not give approval to hold the medication for the duration requested, the procedure will be cancelled. Holding blood thinner or anti-platelet medication can result in increased risk of stroke, heart attack or even when approval by the managing physician is given. History of Present Illness / Review of Systems Reason for Visit: Follow-up Pain location: low back Current pain Level: 6 Best pain Level: 6 Worst pain Level: 10 Pain description: dull, sharp, stabbing, burning, squeezing, throbbing, shooting, and aching Radiation: right leg and left leg Sensory changes: none Motor changes: Yes Duration of pain: >6 months Increases pain: standing, forward bending, twisting, walking, weather changes, morning, and evening Decreases pain: medications Patient's Goals: decrease pain, decrease pain with activity, improve ability to perform activities of daily living, improve quality of life, improve sleep, stand longer, and walk further Acceptable level of pain: 4 Additional concerns: none Focused Review of Systems: Loss of bladder control: Yes Loss of bowel control: Denies Saddle anesthesia: Denies Recent falls: Yes Constipation: Denies 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 prior biopsies no dysplasia last biopsies 08/2014 Benign carcinoid tumor of the duodenum 2014 Cancer ([facility]) skin cancer-squamous cells removed Chronic kidney disease (CKD), stage III (moderate) ([facility]) 09/12/2016 EGFR 43 Fibromyalgia Floating kidney GERD (gastroesophageal reflux disease) 2010 Hypertension 2000 Macular degeneration 2017 Myocardial infarction ([facility]) 08/2018 STEMI Osteoporosis 2010 Trigeminal neuralgia of left side of face 2005 Vertigo Vitamin D deficiency 2016 Past Surgical History Past Surgical History: Procedure Laterality Date BACK SURGERY 2013 fusion and rods placed in lower back. Rick thompson. Dr Hinds BLADDER REPAIR 1989 CATARACT EXT/ECCE Bilateral 2011 Dr arambula CHOLECYSTECTOMY CYST REMOVAL Right 1999 cyst removal from rt breast-benign DILATION AND CURETTAGE (D AND C) 1970 x 2 EGD 01/01/2015 Dr. ZavalaYtxrya-Tzhckyyny-Bhazzwv's esophagus EGD 08/2014 Dr. Vinicius Pruett-Barrett's esophagitis biopsies negative for dysplasia. ESOPHAGOGASTRODUODENOSCOPY 01/04/2018 Dr. Zavala -biopsies performed-Kelly's esophagitis-carcinoid tumor posterior wall duodenum FRACTURE SURGERY Right Plates and screws in rt arm after fracture. dr Dolan [facility] LEFT HEART CATH N/A 08/23/2018 Procedure: Left Heart Cath; Surgeon: Glen Fair MD; Location: [facility]; Service: Cardiovascular HYSTERECTOMY 1974 KIDNEY SURGERY 1969 had exploratory surgery d/t floating kidney Dx KNEE SURGERY Left 1997 left knee arthoscopy LUMPECTOMY Left 1989 benign ORIF HIP GAMMA NAIL Right 04/02/2020 IN NJX DX/THER AGT PVRT FACET JT LMBR/SAC 1 LEVEL Bilateral 06/18/2023 Procedure: Lumbar medial branch nerve blocks, bilateral lumbar 2-3-4; Surgeon: Jake Navarro DO; Location: Main OR; Service: Pain Management IN NJX DX/THER AGT PVRT FACET JT LMBR/SAC 1 LEVEL Bilateral 07/02/2023 Procedure: Lumbar medial branch nerve blocks, bilateral lumbar 2-3-4; Surgeon: Jake Navarro DO; Location: Main OR; Service: Pain Management SQUAMOUS CELL CARCINOMA EXCISION x4 TOTAL KNEE ARTHROPLASTY Left 2012 dr dolan TUMOR REMOVAL 2011 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 Allergies Allergies: Aspirin; Bacitracin zinc-polymyxin b; Codeine; Diphenhydramine; Gabapentin; Latex, natural rubber; Ijnonwar-gycllqhvctd-ryhrudsve; Adhesive tape-silicones; Bacitracin; Carbamazepine; Hydrocortisone; Lidocaine; and Neomycin Medications Current Outpatient Medications Medication Instructions aspirin (ECOTRIN ORAL) Oral atorvastatin (LIPITOR) 40 mg, Oral, Nightly colestipoL (COLESTID) 1 gram tablet No dose, route, or frequency recorded. D-MANNOSE ORAL DULoxetine (CYMBALTA) 60 mg, Oral, At bedtime estradioL (ESTRACE) 2 g, Vaginal, Daily furosemide (LASIX) 20 mg, Oral, 2 times daily lamoTRIgine (LAMICTAL) 200 mg, Oral, Daily losartan (COZAAR) 50 mg, Oral, Daily methadone (DOLOPHINE) 5 mg, Oral, 2 times daily, (Days supply per fill: 30) metoprolol succinate (TOPROL-XL) 50 mg, Oral, At bedtime MULTIVIT-MIN/IRON/FOLIC/LUTEIN (CENTRUM SILVER WOMEN ORAL) 1 tablet, Oral, Daily naloxone (NARCAN) 4 mg/actuation Amanda Administer 1 spray into one nostril for known or suspected opioid overdose. If patient worsens or does not respond, may repeat in 2-3 minutes. nitroGLYCERIN (NITROSTAT) 0.4 mg, Sublingual, Every 5 min PRN, , if no relief after 3 doses call 911 pantoprazole (PROTONIX) 40 mg, Oral, Daily spironolactone (ALDACTONE) 25 mg, Oral, Daily UNIV COMP RX: AMITRIPTYLINE 2%, BACLOFEN 2%, GABAPENTIN 5%, LIDOCAINE 5% EMOLLIENT CREAM 0.5 g, Topical, 3 times daily PRN vibegron (Gemtesa) 75 mg Tab Oral Social History Social History Socioeconomic History Marital status: Number of children: 2 Years of education: 12 Tobacco Use Smoking status: Former Current packs/day: 0.00 Types: Cigarettes Quit date: 04/03/1976 Years since quittin.7 Passive exposure: Never Smokeless tobacco: Never Vaping Use Vaping status: Never Used Substance and Sexual Activity Alcohol use: No Drug use: No Sexual activity: Never Social Determinants of Health Financial Resource Strain: Low Risk (03/16/2023) Overall Financial Resource Strain (CARDIA) Difficulty of Paying Living Expenses: Not hard at all Food Insecurity: No Food Insecurity (07/08/2023) Hunger Vital Sign Worried About Running Out of Food in the Last Year: Never true Ran Out of Food in the Last Year: Never true Transportation Needs: No Transportation Needs (07/08/2023) PRAPARE - Transportation Lack of Transportation (Medical): No Lack of Transportation (Non-Medical): No Physical Activity: Insufficiently Active (10/15/2021) Exercise Vital Sign Days of Exercise per Week: 2 days Minutes of Exercise per Session: 20 min Stress: Stress Concern Present (10/15/2021) Citizen Of [place] [employer] Occupational Health - Occupational Stress Questionnaire Feeling of Stress : To some extent Social Connections: Moderately Isolated (10/15/2021) Social Connection and Isolation Panel [NHANES] Frequency of Communication with Friends and Family: Twice a week Frequency of Social Gatherings with Friends and Family: Once a week Attends [employer] Services: 1 to 4 times per year Active Member of Clubs or Organizations: No Attends Club or Organization Meetings: Patient declined Marital Status: Housing Stability: Low Risk (07/08/2023) Housing Stability Vital Sign Unable to Pay for Housing in the Last Year: No Number of Places Lived in the Last Year: 1 Unstable Housing in the Last Year: No . Family History family history includes Bipolar disorder in her daughter; Dementia in her sister; Diabetes in her brother, maternal uncle, mother, sister, and son; Heart disease in her brother, father, and mother; Stroke in her father. Physical Exam PACU Vitals 01/01/24 0947 BP: 114/71 Pulse: 81 Resp: 16 SpO2: 94% General: No acute distress, atraumatic Cardiovascular: normal rate, no edema Respiratory: non-labored respirations Psychiatric: appropriate mood and affect Lumbar Spine Exam: Lumbar ROM decreased in extension left rotation right rotation Lumbar paraspinal tenderness noted bilaterally Axial Loading: positive bilaterally Other Tests Imaging All imaging and tests below were personally reviewed by me unless otherwise indicated. MRI lumbar spine 04/22/23: FINDINGS: There are 5 lumbar type vertebrae. The spine is imaged from T11 through distal sacrum on sagittal sequences. L5-S1 laminectomy and posterior fusion. Straightening to slight reversal of the expected lumbar lordosis with apex at L2. Mild dextrocurvature apex at L2. No spondylolisthesis. Facets are anatomically aligned. L2-L3 adjacent endplate edema. Multilevel adjacent endplate mixed edema and fatty changes. Vertebral body heights are well-maintained. The visualized cord is within normal limits. The conus medullaris terminates at L1. Degenerative changes as follows: T12-L1: Intervertebral disc height loss and desiccation. Diffuse bulge and facet arthropathy. Minimal thecal sac and mild bilateral neural foraminal narrowing. L1-L2: Intervertebral disc height loss and desiccation with adjacent endplate Modic type 2 changes. Disc osteophyte complex and facet arthropathy. Mild thecal sac narrowing. Awfh-bb-jpdlxxvu left and mild right neural foraminal narrowing. L2-L3: Intervertebral disc height loss and desiccation with adjacent endplate Modic type 1 changes. Disc osteophyte complex and facet arthropathy. Moderate thecal sac narrowing. Moderate left and mild right neural foraminal narrowing. L3-L4: Intervertebral disc height loss and desiccation with adjacent endplate Modic type 2 changes. Disc osteophyte complex and facet arthropathy. Hsrh-jz-izdodcci thecal sac and mild bilateral neural foraminal narrowing. L4-L5: Intervertebral disc height loss and desiccation with adjacent endplate Modic type 2 changes. Disc osteophyte complex and facet arthropathy. Nntz-xt-eorarebj thecal sac narrowing. Moderate right and krkm-ml-inyqlxbo left neural foraminal narrowing. L5-S1: Intervertebral disc height loss and desiccation. L5 inferior endplate Schmorl's node with adjacent endplate Modic type 2 changes. Disc osteophyte complex and facet arthropathy. Thecal sac is decompressed. Severe right and mild left neural foraminal narrowing. Paravertebral structures are unremarkable. IMPRESSION: 1. Surgical changes of L5-S1 laminectomy and posterior fusion. Recurrent degenerative changes resulting in severe right neural foraminal narrowing at this level. 2. Additional multilevel degenerative changes with up to moderate thecal sac narrowing as described. Please correlate with distribution of symptoms and refer to findings section level by level detail. XR lumbar spine 09/02/22: FINDINGS: Five views including lateral flexion and extension. 24 degrees of dextroscoliosis, apex at L2. Status post L5-S1 posterior fusion and decompression. The right L5 transpedicular screw encroaches upon the L4/5 intervertebral disc space. No evidence of hardware loosening. Vertebral body heights are preserved. Severe intervertebral disc space height loss throughout the lumbar spine with endplate osteophytes. The bones are demineralized. Vascular calcifications. IMPRESSION: Status post L5-S1 posterior fusion in similar alignment. Multilevel lumbar spondylosis with 24 degrees of dextroscoliosis, also similar to previous. Thank you for your kind referral. Please do not hesitate to contact me with any questions. Jake Navarro D.O. Interventional Pain Management [facility] [place] This note was generated using Evolve IP voice recognition software in an effort to expedite communication. Please excuse any resultant grammatical or wording errors. Reason for Visit: Follow-up Pain location: low back Current pain Level: 6 Best pain Level: 6 Worst pain Level: 10 Pain description: dull, sharp, stabbing, burning, squeezing, throbbing, shooting, and aching Radiation: right leg and left leg Sensory changes: none Motor changes: Yes Duration of pain: >6 months Increases pain: standing, forward bending, twisting, walking, weather changes, morning, and evening Decreases pain: medications Patient's Goals: decrease pain, decrease pain with activity, improve ability to perform activities of daily living, improve quality of life, improve sleep, stand longer, and walk further Acceptable level of pain: 4 Additional concerns: none Focused Review of Systems: Loss of bladder control: Yes Loss of bowel control: Denies Saddle anesthesia: Denies Recent falls: Yes Constipation: Denies documented in this encounter [facility] 12-24-2023 Note Chief Complaint Patient presents with Follow-up Face to face for HHC-Declined flu shot HPI: Cat Carroll is a 88 y.o. female presenting today for MARISELA. Former patient of Gisell Desai. Has PMH of prediabetes, coronary artery disease, IA previous, trigeminal neuralgia and chronic low back pain, Kelly's esophagus, fibromyalgia as well as urinary incontinence. Mild systolic dysfunction: Echo last known LVEF of 45 to 50%, repeat echo shows improvement in LVEF of 59% done in September 2022. Continue metoprolol succinate 50 mg daily, losartan 100 mg daily Denies any symptoms of chest pain or shortness of breath. Swelling in the leg is down with adding low-dose Lasix at 20 mg. 03/27: Has been having increased swelling in the leg starting at a.m. even with compression stockings on that she has all days and sometimes sleeping with them at night. Trying to elevate her legs up during the day and taking her Lasix 20 mg twice daily. She denies any associated shortness of breath or chest pain or dizziness with that. History of Present Illness Weakness and altered mental status: Last visit which was scheduled for preop, patient was unsteady and mildly confused that she was evaluated in the ER and admitted for polypharmacy. The patient reports an overall improvement in her condition, albeit with a lack of stability when utilizing a rollator for mobility. She was previously prescribed cyclobenzaprine for imbalance, malaise, and slight confusion. Her last consultation with Dr. Mena was in 07/2023, after which she transitioned to Dr. Kirkland, who discontinued her carbamazepine. Her neighbor notes an increase in confusion and memory lapses since the cessation of carbamazepine, suggesting a possible withdrawal symptom. Dr. Mcleod has reintroduced baclofen at a low dose 2.5 mg to be increased to 5 mg twice daily to her regimen and Lamictal. She has a follow-up appointment with Dr. Kirkland in 4 months. Has not commenced home health yet. Pain control: The patient is currently on methadone 5 mg twice daily for back pain, which has not provided relief. She continues to experience back pain and is scheduled for a nerve procedure. Her methadone dosage was initially 10 mg twice daily, now at 5 mg twice daily, was informed her that discontinuation of methadone will be performed post-nerve surgery. The patient presents for a general follow-up and to request a referral for home health along with palliative services through [facility]. She has been receiving home health care for approximately 2 weeks and has been improvong on her balance with PT. She experiences back pain, particularly when bending over, and has difficulty standing up afterwards. Despite this, she continues to work in her flower beds without the aid of a stool. Vaginal dryness and burning: She reports a slight burning sensation during urination, which she attributes to running out of estradiol cream. 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 She has recently completed a course of antibiotics. Dizziness: She also reports feeling dizzy, which she believes is due to her medication. She is currently taking methadone 5 mg twice daily and Lamictal 200 mg once daily, although she has reduced the dosage of Lamictal due to dizziness. She has recently changed her neurologist to Dr. Mcleod, whom she credits with significant improvement in her facial condition. She has declined the influenza vaccine in the past due to a history of bronchitis following vaccination. She received a pneumonia vaccine in 2013. 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 prior biopsies no dysplasia last biopsies 08/2014 Benign carcinoid tumor of the duodenum 2014 Cancer ([facility]) skin cancer-squamous cells removed Chronic kidney disease (CKD), stage III (moderate) ([facility]) 09/12/2016 EGFR 43 Fibromyalgia Floating kidney GERD (gastroesophageal reflux disease) 2009 Hypertension 2000 Macular degeneration 2017 Myocardial infarction ([facility]) 08/2018 STEMI Osteoporosis 2010 Trigeminal neuralgia of left side of face 2004 Vertigo Vitamin D deficiency 2016 Past Surgical History: Procedure Laterality Date BACK SURGERY 2013 fusion and rods placed in lower back. Rick thompson. Dr Hinds BLADDER REPAIR 1989 CATARACT EXT/ECCE Bilateral 2011 Dr ar[place]ula CHOLECYSTECTOMY CYST REMOVAL Right 2000 cyst removal from rt breast-benign DILATION AND CURETTAGE (D AND C) 1970 x 2 EGD 01/01/2015 Dr. ZavalaCtrdwl-Gltjjtxyy-Cfpnopr's esophagus EGD 08/2014 Dr. Vinicius RamachandranD-Ohontfrjz-Ngpctgi's esophagitis biopsies negative for dysplasia. ESOPHAGOGASTRODUODENOSCOPY 01/04/2018 Dr. Zavala -biopsies performed-Kelly's esophagitis-carcinoid tumor posterior wall duodenum FRACTURE JOELLE (more content not included)... [facility] 12-01-2023 Note Telephone Visit Via Phone Call [facility] [address] [facility] [address] [facility] [id number] Telephone Visit [facility] 12/01/2023 Claudine Majano MD Provider Location: [address] [place] [address] Patient Location [employer] Operator: None Patient Location: Patient's Home Patient: Cat Carroll Date of : 1935 (88 y.o. female) PCP: Claudine Majano MD I discussed risks, benefits and alternatives of a telephone visit telemedicine consultation with the patient (and any accompanying persons) including the risks that the patient's personal health details and medical records will be discussed over real-time, synchronous, interactive audio technology, the visit will not be recorded without the express consent of both the provider and the patient, and that there are inherent diagnostic limitations compared to [id number] evaluations. We elected to proceed with the telephone visit telemedicine consultation. MAR Carroll is a 88 y.o. female presenting today for MARISELA. Former patient of [facility]. Has PMH of prediabetes, coronary artery disease, IA previous, trigeminal neuralgia and chronic low back pain, Kelly's esophagus, fibromyalgia as well as urinary incontinence. Mild systolic dysfunction: Echo last known LVEF of 45 to 50%, repeat echo shows improvement in LVEF of 59% done in September 2022. Continue metoprolol succinate 50 mg daily, losartan 100 mg daily Denies any symptoms of chest pain or shortness of breath. Swelling in the leg is down with adding low-dose Lasix at 20 mg. 03/27: Has been having increased swelling in the leg starting at a.m. even with compression stockings on that she has all days and sometimes sleeping with them at night. Trying to elevate her legs up during the day and taking her Lasix 20 mg twice daily. She denies any associated shortness of breath or chest pain or dizziness with that. Leg swelling : Has been worse in the past month has been taking her Lasix twice daily and quit doing compression stockings as it seems to hurt her legs all day. Has been elevating her legs up. She finds compression stockings to be excessively tight and cut the back of her leg. She has previously tried zippers, but found them ineffective. She elevates her legs when seated. Significant improvement with taking spironolactone along with her Lasix that she takes as well. Weakness: Last visit which was scheduled for preop, patient was unsteady and mildly confused that she was evaluated in the ER and admitted for polypharmacy. The patient reports an overall improvement in her condition, albeit with a lack of stability when utilizing a rollator for mobility. She was previously prescribed cyclobenzaprine for imbalance, malaise, and slight confusion. Her last consultation with Dr. Mena was in 07/2023, after which she transitioned to Dr. Kirkland, who discontinued her carbamazepine. 11/30: Since she discontinued carbamazepine which was causing confusion and imbalance and starting on lamotrigine she has been feeling significant improvement and recently neurology took her off baclofen which has been going smoothly with no need for increased pain control or needing baclofen back. Has been still feeling weak and has fallen twice since have seen her despite ambulating with a walker. TN: Following up with neurology well-managed with lamotrigine 200 mg at this time. Pain control: The patient is currently on methadone 5 mg twice daily for back pain, which has not provided relief. She continues to experience back pain and is scheduled for a nerve procedure. Her methadone dosage was initially 10 mg twice daily, now at 5 mg twice daily, was informed her that discontinuation of methadone will be performed post-nerve surgery. HTN: The patient does monitor her blood pressure at home, despite owning a blood pressure machine. The following portions of the patient's history were reviewed and updated as appropriate: allergies, current medications, past family history, past medical history, past social history, past surgical history, and problem list. Review of Systems Patient's Medications New Prescriptions No medications on file Previous Medications ASPIRIN (ECOTRIN ORAL) Take by mouth . ATORVASTATIN (LIPITOR) 40 MG TABLET Take 1 (one) tablet (40 mg total) by mouth nightly . COLESTIPOL (COLESTID) 1 GRAM TABLET D-MANNOSE ORAL DULOXETINE (CYMBALTA) 60 MG CAPSULE Take 1 (one) capsule (60 mg total) by mouth at bedtime . ESTRADIOL (ESTRACE) 0.01 % (0.1 MG/GRAM) VAGINAL CREAM Insert 2 (two) g into the vagina daily . LAMOTRIGINE (LAMICTAL) 200 MG TABLET Take 1 (one) tablet (200 mg total) by mouth daily . LOSARTAN (COZAAR) 50 MG TABLET Take 1 (one) tablet (50 mg total) by mouth daily . METHADONE (DOLOPHINE) 5 MG TABLET Take 1 (one) tablet (5 mg total) by mouth 2 (two (more content not included)... [facility] 11-04-2023 History of Present illness Narrative Neurology Follow Up Note [facility] Date of Service: 11/04/23 Service Type: Follow up, neurology Patient: Cat Carroll Date of : 1935 (88 y.o.) Assessment ASSESSMENT: Cat Carroll is a 88 y.o. woman who is here for follow up of trigeminal neuralgia. Patient with classic features of left trigeminal neuralgia for 20+ years, initially diagnosed by Dr. Sweet. MRI brain was limited by motion, there is questionable vascular compression but hard to say for sure. She is quite sure she does not want surgical intervention so repeating the MRI is probably not helpful. Failed gabapentin, topiramate. Carbamazepine helped but caused some hyponatremia and dizziness so she wanted to get off of it. Baclofen did help but there is a little confusion on dosing - she told me she'd been on 20mg TID, which was ordered, but 10mg TID caused severe confusion/drowsiness and even 5mg TID causes significant dizziness so I'm not sure she ever truly got up that high on the dose. Oxcarbazepine is often just as helpful but is actually more likely to cause hyponatremia rather than less so I don't think that's the way to go. Facial nerve blocks are often partly effective (SPG blocks, auriculotemporal blocks, etc), and Botox has some partial efficacy if it can get covered by insurance although the data is somewhat limited for that. She is not interested in injection approaches at this time. Lamotrigine plus low-dose baclofen has kept the pain controlled at present, but she still feels like the baclofen causes dizziness so we will stop it and increase lamotrigine if the pain returns. Follows with Dr. Navarro for chronic low back pain and spinal stenosis. Feels like this is stable. Problems addressed in this visit: 1. Trigeminal neuralgia of left side of face PLAN: Medications: lamotrigine 200mg once daily for now, stop baclofen Labs: none Imaging: none Other: none Follow up: With me in 6 months Attestation: Discussed risks, benefits and alternatives regarding treatment options, and diagnoses with Ms. Carroll. Answered questions and we discussed plan at length. I independently reviewed past history, previous clinic notes, lab results, allergies, medications and radiology images which are summarized in this note with annotations wherever appropriate. Time statement: A total of 34 minutes were spent on this encounter. This includes the following patient-centered activities: 1. Preparation for patient's visit (reviewing previous chart, current medical records, previous history, exam, test, procedure, and medications) 2. Face to face encounter obtaining history from the patient/family/caregivers; performing evaluation and examination; ordering medications, tests, or procedures; referring and communicating with other healthcare professionals; counseling and education of the patient/family/caregiver; independently interpreting results (tests, labs, procedures, imaging) and communicating and explaining results to the patient/family/caregiver 3. Coordination of care; preparing and printing discharge instruction and any educational material for the patient and caregivers. Documenting clinical information in the electronic and other health records. Reviewing OARRS as needed. Rocael Mcleod MD Staff Neurologist [facility] [address] [id number], [facility] [address] [facility] 11/04/23 Subjective Chief Complaint/Reason for Follow Up: trigeminal neuralgia Informant(s): self History of Present Illness: Cat Carroll is a 88 y.o. woman who is here for follow up of trigeminal neuralgia. Initial HPI/Summary (note: parts may be copied from initial HPI or other notes, for ease of reference): Patient of Dr. Mena. From his last visit, 07/08/22: Patient came for follow-up neurological evaluation. She had history of trigeminal neuralgia and diagnosed by Dr. Sweet more than 20 years ago. She also has been evaluated at [facility]. She started gabapentin and later carbamazepine. She thinks that gabapentin caused her to be dizzy and unsteady. Previously she is using gabapentin 400 mg 3 times a day and Topamax 50 mg 3 times a day. She also use misoprostol 100 mcg 3 times a day which caused abdominal upset. She has been on carbamazepine, topiramate, gabapentin, acupuncture, in the past. The acupuncture has helped but caused her $125 for a session and she 3 sessions a week. She was unable to afford it. Her pain is described as sharp shooting electrical pain mainly on the left V2 distribution and previously located left V1. She will have some residual soreness on the left supraorbital area. She denies any history of migraine, sinusitis, hearing loss, tinnitus, vertigo, or dental problems. Cold wind might trigger the pain and occasionally chewing might also cause the pain. No change in vision. No speech difficulty. She has been using carbamazepine 250 mg 3 times a day. She feels occasional twinges but not as severe as before. No new symptoms since last visit. Past medical history include hypertension, hyperlipidemia, coronary artery disease, osteoarthritis, tremors, Kelly's esophagus, chronic kidney disease, fibromyalgia, gastroesophageal reflux disorder, macular degeneration. No tobacco, alcohol, or recreational drug use. Family history is negative for trigeminal neuralgia but positive for tremors. History since last visit: Doing OK. Facial pain remains controlled, no TN symptoms. After hospitalization in June, felt due to baclofen causing drowsiness/confusion, she has been reduced to 5mg TID and continued lamotrigine but no carbamazepine. She still feels like the baclofen is making her dizzy and she has had several falls which she attributes to the medication. Review of Systems: All systems reviewed and negative except those documented in the History of Present Illness (HPI). Pertinent positives are documented below: + facial pain + low back pain Medical/Surgical/Social/Family Histories: Reviewed. Changes made where necessary. She has a past medical history of Arthritis, Kelly's 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 (2014), Benign carcinoid tumor of the duodenum (2014), Cancer (HCC), Chronic kidney disease (CKD), stage III (moderate) (HCC) (09/12/2016), Fibromyalgia, Floating kidney, GERD (gastroesophageal reflux disease) (2009), Hypertension (1999), Macular degeneration (2017), Myocardial infarction ([facility]) (08/2018), Osteoporosis (2009), Trigeminal neuralgia of left side of face (2004), Vertigo, and Vitamin D deficiency (2015). She has a past surgical history that includes Egd (01/01/2015); Egd (08/2014); Dilatation And Curettage (D And C) (1969); Hysterectomy (1974); Cholecystectomy; Kidney surgery (1968); Bladder repair (1989); Lumpectomy (Left, 1989); Cyst Removal (Right, 1999); Knee surgery (Left, 1997); Squamous cell carcinoma excision; Fracture surgery (Right); Cataract Ext/Ecce (Bilateral, 2011); Total knee arthroplasty (Left, 2012); Back surgery (2013); Tumor removal (2011); Esophagogastroduodenoscopy (01/04/2018); hc left heart cath (N/A, 08/23/2018); Orif Hip Gamma Nail (Right, 04/02/2020); pr njx dx/ther agt pvrt facet jt lmbr/sac 1 level (Bilateral, 06/18/2023); and pr njx dx/ther agt pvrt facet jt lmbr/sac 1 level (Bilateral, 07/02/2023). She family history includes Bipolar disorder in her daughter; Dementia in her sister; Diabetes in her brother, maternal uncle, mother, sister, and son; Heart disease in her brother, father, and mother; Stroke in her father. She reports that she quit smoking about 47 years ago. Her smoking use included cigarettes. She has never been exposed to tobacco smoke. She has never used smokeless tobacco. She reports that she does not drink alcohol and does not use drugs. Allergies: Allergies: Aspirin; Bacitracin zinc-polymyxin b; Codeine; Diphenhydramine; Gabapentin; Latex, natural rubber; Jispkrtk-urcqjlasqrk-txtdyggcr; Adhesive tape-silicones; Bacitracin; Carbamazepine; Hydrocortisone; Lidocaine; and Neomycin HOME Medications: Current Outpatient Medications Medication Instructions aspirin (ECOTRIN ORAL) Oral atorvastatin (LIPITOR) 40 mg, Oral, Nightly colestipoL (COLESTID) 1 gram tablet No dose, route, or frequency recorded. D-MANNOSE ORAL DULoxetine (CYMBALTA) 60 mg, Oral, At bedtime estradioL (ESTRACE) 2 g, Vaginal, Daily furosemide (LASIX) 40 mg, Oral, 2 times daily lamoTRIgine (LAMICTAL) 200 mg, Oral, Daily losartan (COZAAR) 50 mg, Oral, Daily methadone (DOLOPHINE) 5 mg, Oral, 2 times daily, (Days supply per fill: 30) [START ON 11/07/2023] methadone (DOLOPHINE) 5 mg, Oral, 2 times daily, (Days supply per fill: 30) [START ON 12/06/2023] methadone (DOLOPHINE) 5 mg, Oral, 2 times daily, (Days supply per fill: 30) metoprolol succinate (TOPROL-XL) 50 mg, Oral, At bedtime MULTIVIT-MIN/IRON/FOLIC/LUTEIN (CENTRUM SILVER WOMEN ORAL) 1 tablet, Oral, Daily naloxone (NARCAN) 4 mg/actuation Amanda Administer 1 spray into one nostril for known or suspected opioid overdose. If patient worsens or does not respond, may repeat in 2-3 minutes. nitroGLYCERIN (NITROSTAT) 0.4 mg, Sublingual, Every 5 min PRN, , if no relief after 3 doses call 911 pantoprazole (PROTONIX) 40 mg, Oral, Daily spironolactone (ALDACTONE) 25 mg, Oral, Daily UNIV COMP RX: AMITRIPTYLINE 2%, BACLOFEN 2%, GABAPENTIN 5%, LIDOCAINE 5% EMOLLIENT CREAM 0.5 g, Topical, 3 times daily PRN vibegron (Gemtesa) 75 mg Tab Oral Objective OBJECTIVE: Physical Examination: BP 128/78 (BP Location: Right arm, Patient Position: Sitting, BP Cuff Size: Adult) Pulse 73 Resp 16 Ht 5' 4 SpO2 96% BMI 21.46 kg/m GENERAL: General Appearance: In NAD HEENT: Normocephalic. No conjunctival injection. Ears appear normal. No substantial sinus drainage. See below for vision/hearing Neck: Supple, no focal bony tenderness, no mass lesions Respiratory Effort: Normal Extremities: No edema Skin: No rashes visualized MSK: No joint deformities Neurologic Exam: MENTAL STATUS: Alertness, Attention Span & Concentration: while she doesn't seem like the best historian, she is awake, alert, attentive. She made a single error (skipped December) when counting months backward and did serial 7s normally. Language: Normal Speech: Normal Orientation: Oriented to person, place, time/date, and situation Memory, Recent & Remote: 3/3 recall at 5 minutes. Fund of Knowledge: Normal CRANIAL NERVES: II - Visual Leos: Normal II, III: Pupils: PERRL, no RAPD III, IV, : Eye Movements: Normal (EOMI, No ptosis, No nystagmus) V - Facial Sensation: slightly more sensitive on the left face than the right. VII: Face Symmetry & Strength: Normal VIII - Hearing: Normal to finger rub bilaterally IX, X - Palate: Normal, elevates symmetrically XI - Shoulder Shrug: Normal XII - Tongue Protrusion: Normal, symmetric MOTOR: Muscle Strength Right Left 5 Shoulder Abduction (Deltoid) 5 5 Elbow Flexion (Biceps) 5 5 Elbow Extension (Triceps) 5 5 Wrist Flexion 5 5 Wrist Extension 5 5 Finger Abduction (Interossei) 5 Right Left 4 Hip Extension 4 4 Hip Flexion (Iliopsoas) 4 5 Knee Extension (Quads) 5 5 Knee Flexion (Hamstrings) 5 5 Dorsiflexion (Anterior Tibialis) 5 5 Plantar Flexion (Gastrocnemius) 5 MOTOR AVILA: 5 Normal (Normal Power) 4 Mild Weakness (Movement against moderate resistance over a full range of motion) 3 Moderate Weakness (Movement against gravity only over almost full range of motion) 2 Severe Weakness (Movement with gravity eliminated over almost full range of motion) 1 Trace Movement (Contraction visible or palpable without effective movement of the joint) 0 No Movement (No contraction visible or palpable) MARGUERITE Unable to Assess Normal Bulk and Tone, no atrophy. Hips limited by back pain. SENSATION: Fine Touch: Normal Pinprick: Normal REFLEXES: Right Reflexes Left 2+ Biceps 2+ 2+ Triceps 2+ 2+ Brachioradialis 2+ 1+ Patellar 1+ 1+ Achilles 1+ Down Plantar Response (Babinski) Down REFLEXES AVILA: 4+ Sustained Clonus 3+ Brisk 2+ Normal 1+ Diminished 0 Absent MARGUERITE Unable to Assess COORDINATION: Coordination Sxijnt-oj-Ehdm: Mild intention tremor bilaterally Cabrera Finger taps: normal Coordination Gdjo-Hhrx-Iaol: normal Diadochokinesis: normal STANCE AND GAIT: Base/Stance: Normal/ narrow base Gait: A little unsteady. Mix of what seems to be mild ataxia as well as antalgia, stiffness at low back/hips. Gait Aid Used During Exam: None Gait Assistance Required During Exam: None MOVEMENT DISORDERS EXAMINATION: Tremor - no tremors noted other than mild intention tremors. Bradykinesia - None Rigidity - None Dyskinesia/Choreoathetosis - None Dystonia/Myoclonus/Tics - None PRIOR TESTING: Brain MRI/MRA w/o 02/25/19 1. Nonspecific white matter changes may represent small-vessel ischemic disease in a patient of this age. Areas of encephalomalacia in the cerebellum may reflect remote ischemic injury. There is no evidence of acute ischemic injury. 2. Limited evaluation of the posterior fossa due to patient motion on the high-resolution axial T2 weighted images. A flow void does appear to at least abut the inner aspect of the proximal cisternal segment of the left trigeminal nerve. Brain MRA: There are multifocal areas with attenuated flow related signal along the anterior and posterior circulation thought to largely e due to artifact. However, diminished flow can not be excluded. Most recent BMP 05/18/22 with Na 136, Cr 0.99, otherwise normal. Last CBZ level 7.5. Last Vit D 71. documented in this encounter [facility] 11-04-2023 Note Neurology Follow Up Note [facility] Date of Service: 11/04/23 Service Type: Follow up, neurology Patient: Cat Carroll Date of : 1935 (88 y.o.) Assessment ASSESSMENT: Cat Carroll is a 88 y.o. woman who is here for follow up of trigeminal neuralgia. Patient with classic features of left trigeminal neuralgia for 20+ years, initially diagnosed by Dr. Sweet. MRI brain was limited by motion, there is questionable vascular compression but hard to say for sure. She is quite sure she does not want surgical intervention so repeating the MRI is probably not helpful. Failed gabapentin, topiramate. Carbamazepine helped but caused some hyponatremia and dizziness so she wanted to get off of it. Baclofen did help but there is a little confusion on dosing - she told me she'd been on 20mg TID, which was ordered, but 10mg TID caused severe confusion/drowsiness and even 5mg TID causes significant dizziness so I'm not sure she ever truly got up that high on the dose. Oxcarbazepine is often just as helpful but is actually more likely to cause hyponatremia rather than less so I don't think that's the way to go. Facial nerve blocks are often partly effective (SPG blocks, auriculotemporal blocks, etc), and Botox has some partial efficacy if it can get covered by insurance although the data is somewhat limited for that. She is not interested in injection approaches at this time. Lamotrigine plus low-dose baclofen has kept the pain controlled at present, but she still feels like the baclofen causes dizziness so we will stop it and increase lamotrigine if the pain returns. Follows with Dr. Navarro for chronic low back pain and spinal stenosis. Feels like this is stable. Problems addressed in this visit: 1. Trigeminal neuralgia of left side of face PLAN: Medications: lamotrigine 200mg once daily for now, stop baclofen Labs: none Imaging: none Other: none Follow up: With me in 6 months Attestation: Discussed risks, benefits and alternatives regarding treatment options, and diagnoses with Ms. Carroll. Answered questions and we discussed plan at length. I independently reviewed past history, previous clinic notes, lab results, allergies, medications and radiology images which are summarized in this note with annotations wherever appropriate. Time statement: A total of 34 minutes were spent on this encounter. This includes the following patient-centered activities: 1. Preparation for patient's visit (reviewing previous chart, current medical records, previous history, exam, test, procedure, and medications) 2. Face to face encounter obtaining history from the patient/family/caregivers; performing evaluation and examination; ordering medications, tests, or procedures; referring and communicating with other healthcare professionals; counseling and education of the patient/family/caregiver; independently interpreting results (tests, labs, procedures, imaging) and communicating and explaining results to the patient/family/caregiver 3. Coordination of care; preparing and printing discharge instruction and any educational material for the patient and caregivers. Documenting clinical information in the electronic and other health records. Reviewing OARRS as needed. Rocael Mcleod MD Staff Neurologist [facility] [id number], [facility] [address] [facility] 11/04/23 Subjective Chief Complaint/Reason for Follow Up: trigeminal neuralgia Informant(s): self History of Present Illness: Cat Carroll is a 88 y.o. woman who is here for follow up of trigeminal neuralgia. Initial HPI/Summary (note: parts may be copied from initial HPI or other notes, for ease of reference): Patient of Dr. Mena. From his last visit, 07/08/22: Patient came for follow-up neurological evaluation. She had history of trigeminal neuralgia and diagnosed by Dr. Sweet more than 20 years ago. She also has been evaluated at [facility]. She started gabapentin and later carbamazepine. She thinks that gabapentin caused her to be dizzy and unsteady. Previously she is using gabapentin 400 mg 3 times a day and Topamax 50 mg 3 times a day. She also use misoprostol 100 mcg 3 times a day which caused abdominal upset. She has been on carbamazepine, topiramate, gabapentin, acupuncture, in the past. The acupuncture has helped but caused her $125 for a session and she 3 sessions a week. She was unable to afford it. Her pain is described as sharp shooting electrical pain mainly on the left V2 distribution and previously located left V1. She will have some residual soreness on the left supraorbital area. She denies any history of migraine, sinusitis, hearing loss, tinnitus, vertigo, or dental problems. Cold wind might trigger the pain and occasionally chewing might also cause (more content not included)... [facility] 11-04-2023 Instructions Rocael Mcleod MD - 11/04/2023 2:48 PM EDT Ms Carroll, Let's stop the baclofen. For now, keep the same dose of lamotrigine - we can absolutely increase it if we need to so don't worry about that. If the pain comes back just let me know and we'll increase it. It was a pleasure taking care of you, and we all wish you the best of health. For concerns regarding medicines, adjusting doses or other questions: Call : [phone] (direct phone line to neurology staff) - leave a message if no one is available. (Note that [phone] is still listed on most of our paperwork and is a general line to the call pool in [place]; the number above is a faster way to get in touch with our staff here in [place]) [facility] - the best way to send messages directly to your doctors, or request Drug Refills. Call [phone] to set up [facility] on your smart phone or computer. Mailing Address: Attn: Dr. Rocael Mcleod [address] [place] [address]# [id number], [facility] [id number] Our documented in this encounter [facility] 10-13-2023 History of Present illness Narrative Images from the original note were not included. Subjective Patient ID: Cat Carroll is a 88 y.o. female. Chief Complaint Patient presents with Follow-up ER f/u HPI Cat is an 88 year old female who comes to the office today for follow up after being seen in the ER on 09/28/23 for a skin tear. It is reported that she fell 2 weeks prior to being seen in the ER due to a mechanical fall in her room where she hit her left elbow causing a skin tear. She is left handed dominant. The ER placed her on Keflex 500mg TID for 7 days for prophylaxis which she has completed the entire course of. She notes that she has been applying neosporin and guaze pads to her skin tear and changing every two days. Denies redness, warmth, streaking, fever, chills. Denies other complaints. Denies anymore falls since that ER visit. States she uses her cane to ambulate. The following portions of the patient's history were reviewed and updated as appropriate: allergies, current medications, past family history, past medical history, past social history, past surgical history, and problem list. Antiobtic ointment on it, wrapping every 2 days. Review of Systems Constitutional: Negative for chills and fever. Cardiovascular: Negative for chest pain. Skin: Negative for rash. Healing skin tear to left UE. No drainage, no redness. Neurological: Negative for dizziness. Psychiatric/Behavioral: Negative. Objective BP 138/71 (BP Location: Right arm, Patient Position: Sitting, BP Cuff Size: Adult) Pulse 84 Temp 98.1 F (36.7 C) (Temporal) Resp 16 Ht 5' 4 Wt 56.7 kg (125 lb) SpO2 95% BMI 21.46 kg/m Physical Exam Constitutional: Appearance: Normal appearance. She is normal weight. HENT: Right Ear: External ear normal. Left Ear: External ear normal. Eyes: Comments: Corrective lenses Cardiovascular: Rate and Rhythm: Normal rate and regular rhythm. Pulses: Normal pulses. Heart sounds: Normal heart sounds. Pulmonary: Effort: Pulmonary effort is normal. No respiratory distress. Breath sounds: Normal breath sounds. Musculoskeletal: Comments: Ambulates with cane Skin: General: Skin is warm and dry. Comments: Healing skin tear to left upper extremitiy, no warmth, no redness, no crepitus, no edema, no red streaking Neurological: Mental Status: She is alert and oriented to person, place, and time. Psychiatric: Mood and Affect: Mood normal. Behavior: Behavior normal. Assessment/Plan: Diagnoses and all orders for this visit: Skin tear of elbow without complication, left, subsequent encounter Discussed with patient that skin tear is healing well. Dressing was removed in office and dressing was reapplied with non stick dry sterile dressing and tape paper. Advised patient that she does not need to continue with dressing changes after 2-3 more days. That area is healing well and she can then just ensure area is clean, washed with mild soap and water and leave open to air. Discussed signs and symptoms of infection including but not limited to fever, chills, redness to area, warmth to area, or red streaking. If any of these symptoms were to arise that she should follow up in office. Patient denies any other concerns today. Therefore discussed follow up as needed and to continue to keep her appointments with Dr. Majano. Electronically signed by HALEIGH Maradiaga 11:34 AM documented in this encounter [facility] 09-28-2023 History of Present illness Narrative [facility] Interventional Pain Management Office Note Patient Name: Cat Carroll Referring Physician: No ref. provider found Date of : 1935 PCP: Claudine Majano MD Date of Service: 09/28/23 Assessment & Plan Assessment: Failed back surgery syndrome Posterior fusion, L5-S1 Lumbar spondylosis Lumbar spinal stenosis Lumbar degenerative disease Trigeminal neuralgia Chronic pain syndrome Chronic continuous opioid use Narrative: She presented with chronic low back pain secondary to combination of lumbar spondylosis, lumbar degenerative disease and a component of failed back surgery syndrome following a posterior fusion L5-S1. MRI lumbar spine reviewed and shows recurrent degenerative changes resulting in severe right foraminal narrowing at L5-S1. There is also additional multilevel degenerative changes throughout the rest of her lumbar spine. It appears most of her pain is secondary to adjacent segment disease related to facet arthropathy. She is status post lumbar medial branch nerve blocks, bilateral L1, L2, L3 x 2 with greater than 80% improvement pain and function for the duration of the local anesthetic. We will schedule lumbar medial branch nerve radiofrequency ablation, bilateral L1, L2, L3. She also is dealing with trigeminal neuralgia and vertigo symptoms. She follows closely with neurology at [facility] for treatment of trigeminal neuralgia and dizziness. I explained that I do not do the blocks for trigeminal neuralgia and she would likely need to be referred to a tertiary center at [facility] in the future if this pain worsens. She was maintained on methadone 10 mg twice daily by a previous pain provider. I did discuss at a previous visit that this is a high dose for chronic noncancer pain. She states that is was adequately controlled her pain and she denies any side effects. She does endorse inadequate relief on her current regimen. She feels the 5 mg is not nearly as effective as the 10 wants. I discussed that I do not believe increasing her methadone to higher dose will lead to long-term improvement in her pain. I also offered to wean her off her methadone and start a trial of Percocet however she states she has tried and failed Percocet in the past. She does have an injury to her left upper extremity after bumping into furniture several days ago. We did undress the wound and there was significant oozing. I am sending her to the ER for further evaluation and dressing change I also instructed her to follow-up closely with her primary care physician. EKG 06/2023: Qtc 451 Plan: Medications: Continue methadone 5 mg BID prn Follow-up: Return in about 3 months (around 12/29/2023) for Follow-up. Compliance OARRS/NARxCheck: OARRS/NARxCHECK Report Received and Assessed: 09/28/23 Date controlled substance agreement signed: 04/22/23 UDS 09/28/23: pending Narcan Rx Ordered: 09/28/23 Opioid Risk Tool: If chronic opioids were prescribed at today's visit, the risk of chronic opioid therapy was discussed with patient including, but not limited to developing a tolerance, dependence, addiction or the possibility of overdose and even . The patient was instructed not to mix opioids with other sedating medications or substances including benzodiazepines and alcohol. The patient was instructed to only take medication as prescribed. The patient was instructed not to sell or share medication. The patient was also instructed to lock their medication in a safe location. The goal of opioid therapy is to improve their pain significantly and allow them to more easily perform their ADLs. The goal of maintaining opioid at the lowest effective dose was discussed. All questions were answered. Narcan education was provided and narcan prescription ordered upon initiation of chronic opioid therapy and will offered annually or sooner if patient requests. If procedure was scheduled at today's, the risks of the procedure including, but not limited to, worsening pain, bleeding, infection and nerve injury and headache was discussed with the patient. The benefits of the procedure were also explained which included reductions of pain and improvement in functional status. The patient voiced understanding of the risks and benefits and wishes to proceed with the above procedure. History of Present Illness / Review of Systems Reason for Visit: Follow-up Pain location: low back Current pain Level: 7 Best pain Level: 3 Worst pain Level: 9 Pain description: sharp and shooting Radiation: right leg and left leg, stops at the knee Sensory changes: none Motor changes: Yes Duration of pain: >6 months Increases pain: forward bending Decreases pain: nothing Patient's Goals: decrease pain, decrease pain with activity, improve ability to perform activities of daily living, improve quality of life, improve sleep, stand longer, and walk further Acceptable level of pain: 4 Additional concerns: none Focused Review of Systems: Loss of bladder control: Yes Loss of bowel control: Denies Saddle anesthesia: Denies Recent falls: Yes, about 2 weeks ago Constipation: Denies 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 prior biopsies no dysplasia last biopsies 08/2014 Benign carcinoid tumor of the duodenum 2014 Cancer (HCC) skin cancer-squamous cells removed Chronic kidney disease (CKD), stage III (moderate) ([facility]) 09/12/2016 EGFR 43 Fibromyalgia Floating kidney GERD (gastroesophageal reflux disease) 2009 Hypertension 1999 Macular degeneration 2017 Myocardial infarction ([facility]) 08/2018 STEMI Osteoporosis 2010 Trigeminal neuralgia of left side of face 2005 Vertigo Vitamin D deficiency 2016 Past Surgical History Past Surgical History: Procedure Laterality Date BACK SURGERY 2013 fusion and rods placed in lower back. Rick thompson. Dr Hinds BLADDER REPAIR 1989 CATARACT EXT/ECCE Bilateral 2011 Dr [place]ula CHOLECYSTECTOMY CYST REMOVAL Right 2000 cyst removal from rt breast-benign DILATION AND CURETTAGE (D AND C) 1970 x 2 EGD 01/01/2015 Dr. ZavalaMihgie-Qdskrthri-Jedkjuq's esophagus EGD 08/2014 Dr. Vinicius Pruett-Barrett's esophagitis biopsies negative for dysplasia. ESOPHAGOGASTRODUODENOSCOPY 01/04/2018 Dr. Zavala -biopsies performed-Kelly's esophagitis-carcinoid tumor posterior wall duodenum FRACTURE SURGERY Right Plates and screws in rt arm after fracture. dr Dolan LEFT HEART CATH N/A 08/23/2018 Procedure: Left Heart Cath; Surgeon: Glen Fair MD; Location: [facility]USTOD[facility]; Service: Cardiovascular HYSTERECTOMY 1975 KIDNEY SURGERY 1969 had exploratory surgery d/t floating kidney Dx KNEE SURGERY Left 1997 left knee arthoscopy LUMPECTOMY Left 1989 benign ORIF HIP GAMMA NAIL Right 04/02/2020 IN NJX DX/THER AGT PVRT FACET JT LMBR/SAC 1 LEVEL Bilateral 06/18/2023 Procedure: Lumbar medial branch nerve blocks, bilateral lumbar 2-3-4; Surgeon: Jake Navarro DO; Location: Main OR; Service: Pain Management IN NJX DX/THER AGT PVRT FACET JT LMBR/SAC 1 LEVEL Bilateral 07/02/2023 Procedure: Lumbar medial branch nerve blocks, bilateral lumbar 2-3-4; Surgeon: Jake Navarro DO; Location: Main OR; Service: Pain Management SQUAMOUS CELL CARCINOMA EXCISION x4 TOTAL KNEE ARTHROPLASTY Left 2012 dr dolan TUMOR REMOVAL 2012 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 Allergies Allergies: Aspirin; Bacitracin zinc-polymyxin b; Codeine; Gabapentin; Latex, natural rubber; Anfpjqpm-xudovqwmhwf-uyuvzsdfc; Adhesive tape-silicones; Bacitracin; Hydrocortisone; Lidocaine; and Neomycin Medications Current Outpatient Medications Medication Instructions aspirin (ECOTRIN ORAL) Oral atorvastatin (LIPITOR) 40 mg, Oral, Nightly baclofen 5 mg, Oral, 3 times daily colestipoL (COLESTID) 1 gram tablet No dose, route, or frequency recorded. D-MANNOSE ORAL diphenhydrAMINE-acetaminophen (TYLENOL PM) 25-500 mg Tab 2 tablets, Oral, Nightly PRN DULoxetine (CYMBALTA) 60 mg, Oral, At bedtime estradioL (ESTRACE) 2 g, Vaginal, Daily furosemide (LASIX) 40 mg, Oral, 2 times daily lamoTRIgine (LAMICTAL) 200 mg, Oral, Daily losartan (COZAAR) 50 mg, Oral, Daily methadone (DOLOPHINE) 5 mg, Oral, 2 times daily, (Days supply per fill: 30) metoprolol succinate (TOPROL-XL) 50 mg, Oral, At bedtime MULTIVIT-MIN/IRON/FOLIC/LUTEIN (CENTRUM SILVER WOMEN ORAL) 1 tablet, Oral, Daily naloxone (NARCAN) 4 mg/actuation Amanda Administer 1 spray into one nostril for known or suspected opioid overdose. If patient worsens or does not respond, may repeat in 2-3 minutes. nitroGLYCERIN (NITROSTAT) 0.4 mg, Sublingual, Every 5 min PRN, , if no relief after 3 doses call 911 pantoprazole (PROTONIX) 40 mg, Oral, Daily spironolactone (ALDACTONE) 25 mg, Oral, Daily UNIV COMP RX: AMITRIPTYLINE 2%, BACLOFEN 2%, GABAPENTIN 5%, LIDOCAINE 5% EMOLLIENT CREAM 0.5 g, Topical, 3 times daily PRN vibegron (Gemtesa) 75 mg Tab Oral Social History Social History Socioeconomic History Marital status: Number of children: 2 Years of education: 12 Tobacco Use Smoking status: Former Current packs/day: 0.00 Types: Cigarettes Quit date: 04/03/1976 Years since quittin.5 Passive exposure: Never Smokeless tobacco: Never Vaping Use Vaping status: Never Used Substance and Sexual Activity Alcohol use: No Drug use: No Sexual activity: Never Social Determinants of Health Financial Resource Strain: Low Risk (03/16/2023) Overall Financial Resource Strain (CARDIA) Difficulty of Paying Living Expenses: Not hard at all Food Insecurity: No Food Insecurity (07/08/2023) Hunger Vital Sign Worried About Running Out of Food in the Last Year: Never true Ran Out of Food in the Last Year: Never true Transportation Needs: No Transportation Needs (07/08/2023) PRAPARE - Transportation Lack of Transportation (Medical): No Lack of Transportation (Non-Medical): No Physical Activity: Insufficiently Active (10/15/2021) Exercise Vital Sign Days of Exercise per Week: 2 days Minutes of Exercise per Session: 20 min Stress: Stress Concern Present (10/15/2021) Citizen Of [place] [employer] Occupational Health - Occupational Stress Questionnaire Feeling of Stress : To some extent Social Connections: Moderately Isolated (10/15/2021) Social Connection and Isolation Panel [NHANES] Frequency of Communication with Friends and Family: Twice a week Frequency of Social Gatherings with Friends and Family: Once a week Attends [employer] Services: 1 to 4 times per year Active Member of Clubs or Organizations: No Attends Club or Organization Meetings: Patient declined Marital Status: Housing Stability: Low Risk (07/08/2023) Housing Stability Vital Sign Unable to Pay for Housing in the Last Year: No Number of Places Lived in the Last Year: 1 Unstable Housing in the Last Year: No . Family History family history includes Bipolar disorder in her daughter; Dementia in her sister; Diabetes in her brother, maternal uncle, mother, sister, and son; Heart disease in her brother, father, and mother; Stroke in her father. Physical Exam PACU Vitals 09/28/23 1005 BP: (!) 147/80 Pulse: 69 SpO2: 98% General: No acute distress, atraumatic Cardiovascular: normal rate, no edema Respiratory: non-labored respirations Psychiatric: appropriate mood and affect Lumbar Spine Exam: Lumbar ROM decreased in extension left rotation right rotation Lumbar paraspinal tenderness noted bilaterally Axial Loading: positive bilaterally Other Tests Imaging All imaging and tests below were personally reviewed by me unless otherwise indicated. MRI lumbar spine 04/22/23: FINDINGS: There are 5 lumbar type vertebrae. The spine is imaged from T11 through distal sacrum on sagittal sequences. L5-S1 laminectomy and posterior fusion. Straightening to slight reversal of the expected lumbar lordosis with apex at L2. Mild dextrocurvature apex at L2. No spondylolisthesis. Facets are anatomically aligned. L2-L3 adjacent endplate edema. Multilevel adjacent endplate mixed edema and fatty changes. Vertebral body heights are well-maintained. The visualized cord is within normal limits. The conus medullaris terminates at L1. Degenerative changes as follows: T12-L1: Intervertebral disc height loss and desiccation. Diffuse bulge and facet arthropathy. Minimal thecal sac and mild bilateral neural foraminal narrowing. L1-L2: Intervertebral disc height loss and desiccation with adjacent endplate Modic type 2 changes. Disc osteophyte complex and facet arthropathy. Mild thecal sac narrowing. Haag-la-aecjvlua left and mild right neural foraminal narrowing. L2-L3: Intervertebral disc height loss and desiccation with adjacent endplate Modic type 1 changes. Disc osteophyte complex and facet arthropathy. Moderate thecal sac narrowing. Moderate left and mild right neural foraminal narrowing. L3-L4: Intervertebral disc height loss and desiccation with adjacent endplate Modic type 2 changes. Disc osteophyte complex and facet arthropathy. Ohhm-tt-hwctrdkk thecal sac and mild bilateral neural foraminal narrowing. L4-L5: Intervertebral disc height loss and desiccation with adjacent endplate Modic type 2 changes. Disc osteophyte complex and facet arthropathy. Wlih-as-bwyyqerg thecal sac narrowing. Moderate right and onwa-uy-pkmxeojb left neural foraminal narrowing. L5-S1: Intervertebral disc height loss and desiccation. L5 inferior endplate Schmorl's node with adjacent endplate Modic type 2 changes. Disc osteophyte complex and facet arthropathy. Thecal sac is decompressed. Severe right and mild left neural foraminal narrowing. Paravertebral structures are unremarkable. IMPRESSION: 1. Surgical changes of L5-S1 laminectomy and posterior fusion. Recurrent degenerative changes resulting in severe right neural foraminal narrowing at this level. 2. Additional multilevel degenerative changes with up to moderate thecal sac narrowing as described. Please correlate with distribution of symptoms and refer to findings section level by level detail. XR lumbar spine 09/02/22: FINDINGS: Five views including lateral flexion and extension. 24 degrees of dextroscoliosis, apex at L2. Status post L5-S1 posterior fusion and decompression. The right L5 transpedicular screw encroaches upon the L4/5 intervertebral disc space. No evidence of hardware loosening. Vertebral body heights are preserved. Severe intervertebral disc space height loss throughout the lumbar spine with endplate osteophytes. The bones are demineralized. Vascular calcifications. IMPRESSION: Status post L5-S1 posterior fusion in similar alignment. Multilevel lumbar spondylosis with 24 degrees of dextroscoliosis, also similar to previous. Thank you for your kind referral. Please do not hesitate to contact me with any questions. Jake Navarro D.O. Interventional Pain Management [facility] [place] This note was generated using [employer] IP voice recognition software in an effort to expedite communication. Please excuse any resultant grammatical or wording errors. Reason for Visit: Follow-up Pain location: low back Current pain Level: 7 Best pain Level: 3 Worst pain Level: 9 Pain description: sharp and shooting Radiation: right leg and left leg, stops at the knee Sensory changes: none Motor changes: Yes Duration of pain: >6 months Increases pain: forward bending Decreases pain: nothing Patient's Goals: decrease pain, decrease pain with activity, improve ability to perform activities of daily living, improve quality of life, improve sleep, stand longer, and walk further Acceptable level of pain: 4 Additional concerns: none Focused Review of Systems: Loss of bladder control: Yes Loss of bowel control: Denies Saddle anesthesia: Denies Recent falls: Yes, about 2 weeks ago Constipation: Denies documented in this encounter [facility] 09-22-2023 History of Present illness Narrative 09/22/23 Records faxed to [facility] documented in this encounter [facility] 08-28-2023 Telephone encounter Note Spoke with patient and made aware of Dr Mcleod's message. Patient was able to read back instructions of her medication to this nurse. Praise provided. Patient thanked nurse for calling her back. Voiced understanding on how to take her medications. [facility] 08-28-2023 Miscellaneous Notes Spoke with patient and made aware of Dr Mcleod's message. Patient was able to read back instructions of her medication to this nurse. Praise provided. Patient thanked nurse for calling her back. Voiced understanding on how to take her medications. No idea why they would send a 20mg tab - the only active baclofen script in the system is the 15mg per day one that she is currently taking. She shouldn't take the 20mg, I think that would just make her even more dizzy. If she wants she can try doing 5mg of the baclofen twice per day (total 10mg) to see if that improves the dizziness. Called patient back and she voiced some confusion about medications and wanted to give Dr Mcleod an update on her progress. Patient stated, I'm having some dizziness, I think its from the Baclofen. I do feel it is helping me though.I've been taking Baclofen as directed but [facility] just sent me a new prescription of Baclofen 20mg, am I supposed to take it? I've been taking 15mg a day of Baclofen.. Both medications are helping me. I also need refill on Lamictal to [facility]. documented in this encounter [facility] 08-28-2023 Telephone encounter Note No idea why they would send a 20mg tab - the only active baclofen script in the system is the 15mg per day one that she is currently taking. She shouldn't take the 20mg, I think that would just make her even more dizzy. If she wants she can try doing 5mg of the baclofen twice per day (total 10mg) to see if that improves the dizziness. [facility] 08-28-2023 Telephone encounter Note Called patient back and she voiced some confusion about medications and wanted to give Dr Mcleod an update on her progress. Patient stated, I'm having some dizziness, I think its from the Baclofen. I do feel it is helping me though.I've been taking Baclofen as directed but [facility] just sent me a new prescription of Baclofen 20mg, am I supposed to take it? I've been taking 15mg a day of Baclofen.. Both medications are helping me. I also need refill on Lamictal to [facility]. [facility] 07-27-2023 Note Addended by: CLAUDINE MAJANO on: 07/27/2023 10:32 PM Modules accepted: Orders [facility] 07-27-2023 Miscellaneous Notes Addended by: CLAUDINE MAJANO on: 07/27/2023 10:32 PM Modules accepted: Orders Associated Problem(s): Hypertension Continue on the same BP regimen and monitor for another 2 weeks Follow up 08/05 Associated Problem(s): Leg swelling increasing lasix to 40 mg twice a day for one week Repeat blood work in 1-2 weeks to check kidney functions Elevated legs whenever sitting down , she is going to work on wearing compression stockings. Potentially trying SCDs documented in this encounter [facility] 07-22-2023 History of Present illness Narrative I called Cat back and told her that she does not qualify for Home Health Services she has no current diagnosis, she has dizziness and it is resolving with medication changes. She stated she understood this , I also told her to call our office if she needs anything she said she will. Viv Mohan MA- Good afternoon, I was wondering if you can help me with this? This patient has never been contacted for Home Health. Dr. Majano had said she has talked to someone and told them she will follow pt for Home Health. Dacia Paulson RN- on 07/08 I documented that she did not qualify for home health and told the employment case manager- Patient does not have any current diagnosis to qualify for home health services. Dizziness is resolving with medication changes. Dacia Paulson RN- Katie the stated this that day also- 1430 HRS: Pt, her son, Carley aware pt is not able to receive insurance covered therapy as per [facility] liaison Dacia Paulson RN, patient does not have any current diagnosis to qualify for home health services. Dizziness is resolving with medication changes. Pt relays understand and aware she may call her PCP if feels she has further needs. Dr. Majano -thank you , Viv please call patient to clarify tomorrow , meaning the explain the reasoning of not starting it . I called Cat no answer I LMOM that she does not qualify for Home Health Services she has no current diagnosis, she has dizziness and it is resolving with medication changes. Left contact #. Chief Complaint Patient presents with Transition Of Care HPI: Cat Carroll is a 88 y.o. female presenting today for MARISELA. Former patient of [facility]. Has PMH of prediabetes, coronary artery disease, IA previous, trigeminal neuralgia and chronic low back pain, Kelly's esophagus, fibromyalgia as well as urinary incontinence. Mild systolic dysfunction: Echo last known LVEF of 45 to 50%, repeat echo shows improvement in LVEF of 59% done in September 2022. Continue metoprolol succinate 50 mg daily, losartan 100 mg daily Denies any symptoms of chest pain or shortness of breath. Swelling in the leg is down with adding low-dose Lasix at 20 mg. 03/27: Has been having increased swelling in the leg starting at a.m. even with compression stockings on that she has all days and sometimes sleeping with them at night. Trying to elevate her legs up during the day and taking her Lasix 20 mg twice daily. She denies any associated shortness of breath or chest pain or dizziness with that. Leg swelling : Has been worse in the past month has been taking her Lasix twice daily and quit doing compression stockings as it seems to hurt her legs all day. Has been elevating her legs up. She finds compression stockings to be excessively tight and cut the back of her leg. She has previously tried zippers, but found them ineffective. She elevates her legs when seated. History of Present Illness Weakness and altered mental status: Last visit which was scheduled for preop, patient was unsteady and mildly confused that she was evaluated in the ER and admitted for polypharmacy. The patient reports an overall improvement in her condition, albeit with a lack of stability when utilizing a rollator for mobility. She was previously prescribed cyclobenzaprine for imbalance, malaise, and slight confusion. Her last consultation with Dr. Mena was in 07/2023, after which she transitioned to Dr. Kirkland, who discontinued her carbamazepine. Her neighbor notes an increase in confusion and memory lapses since the cessation of carbamazepine, suggesting a possible withdrawal symptom. Dr. Mcleod has reintroduced baclofen at a low dose 2.5 mg to be increased to 5 mg twice daily to her regimen and Lamictal. She has a follow-up appointment with Dr. Kirkland in 4 months. Has not commenced home health yet. Pain control: The patient is currently on methadone 5 mg twice daily for back pain, which has not provided relief. She continues to experience back pain and is scheduled for a nerve procedure. Her methadone dosage was initially 10 mg twice daily, now at 5 mg twice daily, was informed her that discontinuation of methadone will be performed post-nerve surgery. The patient does not monitor her blood pressure at home, despite owning a blood pressure machine. Supplemental Information She has a Ghotra catheter in place. She denies any dysuria. Her grandmother had a stroke. 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 Rick thompson. Dr Hinds BLADDER REPAIR 1989 CATARACT EXT/ECCE Bilateral 2011 Dr [place] CHOLECYSTECTOMY CYST REMOVAL Right 2000 cyst removal from rt breast-benign DILATION AND CURETTAGE (D AND C) 1970 x 2 EGD 01/01/2015 Dr. ZavalaLcrtgb-Xgjckogxx-Pazkdlz's esophagus EGD 08/2014 Dr. Vinicius Pruett-Barrett's esophagitis biopsies negative for dysplasia. ESOPHAGOGASTRODUODENOSCOPY 01/04/2018 Dr. Zavala -biopsies performed-Kelly's esophagitis-carcinoid tumor posterior wall duodenum FRACTURE SURGERY Right Plates and screws in rt arm after fracture. dr Dolan [facility] LEFT HEART CATH N/A 08/23/2018 Procedure: Left Heart Cath; Surgeon: Glen Fair MD; Location: [facility]; Service: Cardiovascular HYSTERECTOMY 1975 KIDNEY SURGERY 1969 had exploratory surgery d/t floating kidney Dx KNEE SURGERY Left 1997 left knee arthoscopy LUMPECTOMY Left 1989 benign ORIF HIP GAMMA NAIL Right 04/02/2020 IN NJX DX/THER AGT PVRT FACET JT LMBR/SAC 1 LEVEL Bilateral 06/18/2023 Procedure: Lumbar medial branch nerve blocks, bilateral lumbar 2-3-4; Surgeon: Jake Navarro DO; Location: Main OR; Service: Pain Management IN NJX DX/THER AGT PVRT FACET JT LMBR/SAC 1 LEVEL Bilateral 07/02/2023 Procedure: Lumbar medial branch nerve blocks, bilateral lumbar 2-3-4; Surgeon: Jake Navarro DO; Location: Main OR; Service: Pain Management SQUAMOUS CELL CARCINOMA EXCISION x4 TOTAL KNEE ARTHROPLASTY Left 2012 dr dolan TUMOR REMOVAL 2012 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 Family History Problem Relation Age of Onset Diabetes Mother Heart disease Mother Heart disease Father Stroke Father Diabetes Sister Dementia Sister Heart disease Brother Diabetes Brother Diabetes Maternal Uncle Bipolar disorder Daughter Diabetes Son Cancer Neg Hx Aneurysm Neg Hx Seizures Neg Hx Social History Tobacco Use Smoking status: Former Packs/day: 0 Types: Cigarettes Quit date: 04/03/1976 Years since quittin.3 Passive exposure: Never Smokeless tobacco: Never Vaping Use Vaping Use: Never used Substance Use Topics Alcohol use: No Drug use: No Review of Systems Vitals: 07/21/23 1521 07/21/23 1527 07/21/23 1617 BP: (!) 158/75 (!) 143/82 (!) 145/77 BP Location: Right arm Left arm Patient Position: Sitting Sitting BP Cuff Size: Adult Adult Pulse: 74 75 Resp: 16 Temp: 97.8 F (36.6 C) TempSrc: Temporal SpO2: 96% Weight: 56.2 kg (124 lb) Height: Estimated body mass index is 21.28 kg/m as calculated from the following: Height as of this encounter: 5' 4. Weight as of this encounter: 56.2 kg (124 lb). Physical Exam Constitutional: General: She is not in acute distress. Appearance: She is not ill-appearing. HENT: Head: Normocephalic and atraumatic. Eyes: Extraocular Movements: Extraocular movements intact. Conjunctiva/sclera: Conjunctivae normal. Pupils: Pupils are equal, round, and reactive to light. Cardiovascular: Rate and Rhythm: Normal rate and regular rhythm. Pulses: Normal pulses. Heart sounds: Normal heart sounds. No murmur heard. No gallop. Pulmonary: Effort: Pulmonary effort is normal. Breath sounds: Normal breath sounds. No wheezing, rhonchi or rales. Chest: Chest wall: No tenderness. Abdominal: General: Abdomen is flat. Bowel sounds are normal. There is no distension. Palpations: Abdomen is soft. There is no mass. Tenderness: There is no abdominal tenderness. There is no right CVA tenderness, left CVA tenderness, guarding or rebound. Musculoskeletal: General: No tenderness. Normal range of motion. Cervical back: Normal range of motion and neck supple. No rigidity. No muscular tenderness. Right lower leg: Edema present. Left lower leg: Edema present. Comments: +2-3 pitting edema up to the knees bilaterally Lymphadenopathy: Cervical: No cervical adenopathy. Skin: General: Skin is warm. Findings: No erythema or rash. Neurological: General: No focal deficit present. Mental Status: She is alert and oriented to person, place, and time. Sensory: No sensory deficit. Motor: No weakness. Coordination: Coordination normal. Gait: Gait normal. Psychiatric: Mood and Affect: Mood normal. Behavior: Behavior normal. Thought Content: Thought content normal. Judgment: Judgment normal. OARRS/NARxCHECK Report Received and Assessed: Jake Navarro DO on 06/26/2023 10:26 AM Date controlled substance agreement signed: 04/22/2023 Date of last drug screen: @Exam@ PHQ9: JOHNATHON-7 Tobacco Counseling: Counseling given: Not Answered Patient's Medications New Prescriptions No medications on file Previous Medications ASPIRIN (ECOTRIN ORAL) Take by mouth . ATORVASTATIN (LIPITOR) 40 MG TABLET Take 1 (one) tablet (40 mg total) by mouth nightly . BACLOFEN 5 MG TAB Take 1 (one) tablet (5 mg total) by mouth 3 (three) times a day . COLESTIPOL (COLESTID) 1 GRAM TABLET D-MANNOSE ORAL DIPHENHYDRAMINE-ACETAMINOPHEN (TYLENOL PM) 25-500 MG TAB Take 2 (two) tablets by mouth nightly as needed . DULOXETINE (CYMBALTA) 60 MG CAPSULE Take 1 (one) capsule (60 mg total) by mouth at bedtime . ESTRADIOL (ESTRACE) 0.01 % (0.1 MG/GRAM) VAGINAL CREAM Insert 2 (two) g into the vagina daily . LAMOTRIGINE (LAMICTAL) 200 MG TABLET Take 1 (one) tablet (200 mg total) by mouth daily Start: 07/10/23. LOSARTAN (COZAAR) 50 MG TABLET Take 1 (one) tablet (50 mg total) by mouth daily . METHADONE (DOLOPHINE) 5 MG TABLET Take 1 (one) tablet (5 mg total) by mouth 2 (two) times a day (Days supply per fill: 30) Start: 07/04/23. METHADONE (DOLOPHINE) 5 MG TABLET Take 1 (one) tablet (5 mg total) by mouth 2 (two) times a day (Days supply per fill: 30) Start: 08/01/23. METHADONE (DOLOPHINE) 5 MG TABLET Take 1 (one) tablet (5 mg total) by mouth 2 (two) times a day (Days supply per fill: 30) Start: 08/30/23. METOPROLOL SUCCINATE (TOPROL-XL) 50 MG 24 HR TABLET Take 1 (one) tablet (50 mg total) by mouth at bedtime . MULTIVIT-MIN/IRON/FOLIC/LUTEIN (CENTRUM SILVER WOMEN ORAL) Take 1 tablet by mouth daily. NALOXONE (NARCAN) 4 MG/ACTUATION SPRY Administer 1 spray into one nostril for known or suspected opioid overdose. If patient worsens or does not respond, may repeat in 2-3 minutes. . NITROGLYCERIN (NITROSTAT) 0.[address] 1 (one) tablet (0.4 mg total) under the tongue every 5 (five) minutes as needed for chest pain , if no relief after 3 doses call 911 . PANTOPRAZOLE (PROTONIX) 40 MG TABLET Take 1 (one) tablet (40 mg total) by mouth daily . SPIRONOLACTONE (ALDACTONE) 25 MG TABLET Take 1 (one) tablet (25 mg total) by mouth daily . UNIV COMP RX: AMITRIPTYLINE 2%, BACLOFEN 2%, GABAPENTIN 5%, LIDOCAINE 5% EMOLLIENT CREAM Apply 0.5 g topically 3 (three) times a day as needed . VIBEGRON (GEMTESA) 75 MG TAB Take by mouth . Modified Medications Modified Medication Previous Medication FUROSEMIDE (LASIX) 20 MG TABLET furosemide (LASIX) 20 MG tablet Take 2 (two) tablets (40 mg total) by mouth 2 (two) times a day . Take 1 (one) tablet (20 mg total) by mouth 2 (two) times a day . Discontinued Medications No medications on file Health Maintenance Due Topic Date Due Pneumococcal Vaccine: Age 65+ (1 of 2 - PCV) Never done Zoster Vaccines (1 of 2) Never done Diabetic Eye Exam 05/14/2022 COVID-19 Vaccine ( season) 2022 A1C 04/26/2023 Assessment & Plan Problem List Items Addressed This Visit Cardiovascular and Mediastinum Hypertension Continue on the same BP regimen and monitor for another 2 weeks Follow up 08/05 Relevant Medications furosemide (LASIX) 20 MG tablet Other Leg swelling increasing lasix to 40 mg twice a day for one week Repeat blood work in 1-2 weeks to check kidney functions Elevated legs whenever sitting down , she is going to work on wearing compression stockings. Potentially trying SCDs Other Visit Diagnoses Hypokalemia - Primary Relevant Orders Basic Metabolic Panel Chronic systolic heart failure (HCC) Relevant Medications furosemide (LASIX) 20 MG tablet Assessment & Plan 1. Confusion and balance issues. The patient's confusion and balance issues are likely attributable to the combination of cyclobenzaprine and carbamazepine. A comprehensive blood panel will be ordered. We will check with starting with home health. Elevated blood pressure. The patient's blood pressure is slightly elevated during this visit. The patient's blood pressure will be closely monitored. She is advised to monitor her blood pressure daily and maintain a log for the next 2 weeks. No follow-ups on file. My ongoing relationship with Cat Carroll requires continued responsibility and cognitive effort of being the focal point for all services related to serious condition(s). After discussing the use of ambient listening and audio recording in generating medical documentation, the patient verbally consented to use of this technology for today's visit. CLAUDINE MAJANO MD [facility] [address] [facility] [address] [facility] [id number] Dept: [phone] 02/11/2022 1:43 PM 07/25/2022 1:32 PM 02/20/2023 12:00 PM 02/25/2023 7:01 AM 05/11/2023 8:01 AM 05/20/2023 11:40 AM 07/09/2023 8:23 AM Depression Screening Little interest or pleasure in doing things 0 1 3 2 0 0 0 Feeling down, depressed, or hopeless 0 1 3 2 0 0 0 PHQ-2 Total Score 0 2 6 4 0 0 0 Trouble falling or staying asleep, or sleeping too much 1 0 2 3 0 Feeling tired or having little energy 1 1 1 2 0 Poor appetite or overeating 0 0 1 2 0 Feeling bad about yourself - or that you are a failure or have let yourself or your family down 0 0 0 0 0 Trouble concentrating on things, such as reading the newspaper or watching television 0 0 1 1 0 Moving or speaking so slowly that other people could have noticed. Or the opposite - being so fidgety or restless that you have been moving around a lot more than usual 0 0 0 0 0 Thoughts that you would be better off , or of hurting yourself in some way 0 0 1 1 0 PHQ-9 Total Score 2 3 12 13 0 If you checked off any problems, how difficult have these problems made it for you to do your work, take care of things at home, or get along with other people? Not difficult at all Not difficult at all Very difficult Not difficult at all Not difficult at all 02/11/2022 1:43 PM 07/25/2022 1:32 PM 02/20/2023 12:00 PM 02/25/2023 7:01 AM 05/11/2023 8:01 AM 05/20/2023 11:40 AM 07/09/2023 8:23 AM Depression Screening Little interest or pleasure in doing things 0 1 3 2 0 0 0 Feeling down, depressed, or hopeless 0 1 3 2 0 0 0 PHQ-2 Total Score 0 2 6 4 0 0 0 Trouble falling or staying asleep, or sleeping too much 1 0 2 3 0 Feeling tired or having little energy 1 1 1 2 0 Poor appetite or overeating 0 0 1 2 0 Feeling bad about yourself - or that you are a failure or have let yourself or your family down 0 0 0 0 0 Trouble concentrating on things, such as reading the newspaper or watching television 0 0 1 1 0 Moving or speaking so slowly that other people could have noticed. Or the opposite - being so fidgety or restless that you have been moving around a lot more than usual 0 0 0 0 0 Thoughts that you would be better off , or of hurting yourself in some way 0 0 1 1 0 PHQ-9 Total Score 2 3 12 13 0 If you checked off any problems, how difficult have these problems made it for you to do your work, take care of things at home, or get along with other people? Not difficult at all Not difficult at all Very difficult Not difficult at all Not difficult at all documented in this encounter [facility] 07-22-2023 History of Present illness Narrative I called Cat back and told her that she does not qualify for Home Health Services she has no current diagnosis, she has dizziness and it is resolving with medication changes. She stated she understood this , I also told her to call our office if she needs anything she said she will. Viv Mohan MA- Good afternoon, I was wondering if you can help me with this? This patient has never been contacted for Home Health. Dr. Majano had said she has talked to someone and told them she will follow pt for Home Health. Dacia Paulson RN- on 07/08 I documented that she did not qualify for home health and told the employment case manager- Patient does not have any current diagnosis to qualify for home health services. Dizziness is resolving with medication changes. Dacia Paulson RN- Katie the stated this that day also- 1430 HRS: Pt, her son, Dr Howe aware pt is not able to receive insurance covered therapy as per [facility] liaison Dacia Paulson RN, patient does not have any current diagnosis to qualify for home health services. Dizziness is resolving with medication changes. Pt relays understand and aware she may call her PCP if feels she has further needs. Dr. Majano -thank you , Viv please call patient to clarify tomorrow , meaning the explain the reasoning of not starting it . I called Cat no answer I LMOM that she does not qualify for Home Health Services she has no current diagnosis, she has dizziness and it is resolving with medication changes. Left contact #. Chief Complaint Patient presents with Transition Of Care HPI: Cat Carroll is a 88 y.o. female presenting today for MARISELA. Former patient of [facility]. Has PMH of prediabetes, coronary artery disease, IA previous, trigeminal neuralgia and chronic low back pain, Kelly's esophagus, fibromyalgia as well as urinary incontinence. Mild systolic dysfunction: Echo last known LVEF of 45 to 50%, repeat echo shows improvement in LVEF of 59% done in September 2022. Continue metoprolol succinate 50 mg daily, losartan 100 mg daily Denies any symptoms of chest pain or shortness of breath. Swelling in the leg is down with adding low-dose Lasix at 20 mg. 03/27: Has been having increased swelling in the leg starting at a.m. even with compression stockings on that she has all days and sometimes sleeping with them at night. Trying to elevate her legs up during the day and taking her Lasix 20 mg twice daily. She denies any associated shortness of breath or chest pain or dizziness with that. Leg swelling : Has been worse in the past month has been taking her Lasix twice daily and quit doing compression stockings as it seems to hurt her legs all day. Has been elevating her legs up. She finds compression stockings to be excessively tight and cut the back of her leg. She has previously tried zippers, but found them ineffective. She elevates her legs when seated. History of Present Illness Weakness and altered mental status: Last visit which was scheduled for preop, patient was unsteady and mildly confused that she was evaluated in the ER and admitted for polypharmacy. The patient reports an overall improvement in her condition, albeit with a lack of stability when utilizing a rollator for mobility. She was previously prescribed cyclobenzaprine for imbalance, malaise, and slight confusion. Her last consultation with Dr. Mena was in 07/2023, after which she transitioned to Dr. Kirkland, who discontinued her carbamazepine. Her neighbor notes an increase in confusion and memory lapses since the cessation of carbamazepine, suggesting a possible withdrawal symptom. Dr. Mcleod has reintroduced baclofen at a low dose 2.5 mg to be increased to 5 mg twice daily to her regimen and Lamictal. She has a follow-up appointment with Dr. Kirkland in 4 months. Has not commenced home health yet. Pain control: The patient is currently on methadone 5 mg twice daily for back pain, which has not provided relief. She continues to experience back pain and is scheduled for a nerve procedure. Her methadone dosage was initially 10 mg twice daily, now at 5 mg twice daily, was informed her that discontinuation of methadone will be performed post-nerve surgery. The patient does not monitor her blood pressure at home, despite owning a blood pressure machine. Supplemental Information She has a Ghotra catheter in place. She denies any dysuria. Her grandmother had a stroke. 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 Rick thompson. Dr Hinds BLADDER REPAIR 1989 CATARACT EXT/ECCE Bilateral 2011 Dr [place] CHOLECYSTECTOMY CYST REMOVAL Right 2000 cyst removal from rt breast-benign DILATION AND CURETTAGE (D AND C) 1970 x 2 EGD 01/01/2015 Dr. ZavalaXsvhpf-Pocfdoxbl-Urffdjy's esophagus EGD 08/2014 Dr. Vinicius RamachandranG-Yfklodolc-Vddcryd's esophagitis biopsies negative for dysplasia. ESOPHAGOGASTRODUODENOSCOPY 01/04/2018 Dr. Zavala -biopsies performed-Kelly's esophagitis-carcinoid tumor posterior wall duodenum FRACTURE SURGERY Right Plates and screws in rt arm after fracture. dr Dolan [facility] LEFT HEART CATH N/A 08/23/2018 Procedure: Left Heart Cath; Surgeon: Glen Fair MD; Location: [facility]; Service: Cardiovascular HYSTERECTOMY 1975 KIDNEY SURGERY 1969 had exploratory surgery d/t floating kidney Dx KNEE SURGERY Left 1997 left knee arthoscopy LUMPECTOMY Left 1989 benign ORIF HIP GAMMA NAIL Right 04/02/2020 IN NJX DX/THER AGT PVRT FACET JT LMBR/SAC 1 LEVEL Bilateral 06/18/2023 Procedure: Lumbar medial branch nerve blocks, bilateral lumbar 2-3-4; Surgeon: Jake Navarro DO; Location: Main OR; Service: Pain Management IN NJX DX/THER AGT PVRT FACET JT LMBR/SAC 1 LEVEL Bilateral 07/02/2023 Procedure: Lumbar medial branch nerve blocks, bilateral lumbar 2-3-4; Surgeon: Jake Navarro DO; Location: Main OR; Service: Pain Management SQUAMOUS CELL CARCINOMA EXCISION x4 TOTAL KNEE ARTHROPLASTY Left 2013 dr dolan TUMOR REMOVAL 2012 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 Family History Problem Relation Age of Onset Diabetes Mother Heart disease Mother Heart disease Father Stroke Father Diabetes Sister Dementia Sister Heart disease Brother Diabetes Brother Diabetes Maternal Uncle Bipolar disorder Daughter Diabetes Son Cancer Neg Hx Aneurysm Neg Hx Seizures Neg Hx Social History Tobacco Use Smoking status: Former Packs/day: 0 Types: Cigarettes Quit date: 04/03/1976 Years since quittin.3 Passive exposure: Never Smokeless tobacco: Never Vaping Use Vaping Use: Never used Substance Use Topics Alcohol use: No Drug use: No Review of Systems Vitals: 07/21/23 1521 07/21/23 1527 07/21/23 1617 BP: (!) 158/75 (!) 143/82 (!) 145/77 BP Location: Right arm Left arm Patient Position: Sitting Sitting BP Cuff Size: Adult Adult Pulse: 74 75 Resp: 16 Temp: 97.8 F (36.6 C) TempSrc: Temporal SpO2: 96% Weight: 56.2 kg (124 lb) Height: 5' 4 Estimated body mass index is 21.28 kg/m as calculated from the following: Height as of this encounter: 5' 4. Weight as of this encounter: 56.2 kg (124 lb). Physical Exam Constitutional: General: She is not in acute distress. Appearance: She is not ill-appearing. HENT: Head: Normocephalic and atraumatic. Eyes: Extraocular Movements: Extraocular movements intact. Conjunctiva/sclera: Conjunctivae normal. Pupils: Pupils are equal, round, and reactive to light. Cardiovascular: Rate and Rhythm: Normal rate and regular rhythm. Pulses: Normal pulses. Heart sounds: Normal heart sounds. No murmur heard. No gallop. Pulmonary: Effort: Pulmonary effort is normal. Breath sounds: Normal breath sounds. No wheezing, rhonchi or rales. Chest: Chest wall: No tenderness. Abdominal: General: Abdomen is flat. Bowel sounds are normal. There is no distension. Palpations: Abdomen is soft. There is no mass. Tenderness: There is no abdominal tenderness. There is no right CVA tenderness, left CVA tenderness, guarding or rebound. Musculoskeletal: General: No tenderness. Normal range of motion. Cervical back: Normal range of motion and neck supple. No rigidity. No muscular tenderness. Right lower leg: Edema present. Left lower leg: Edema present. Comments: +2-3 pitting edema up to the knees bilaterally Lymphadenopathy: Cervical: No cervical adenopathy. Skin: General: Skin is warm. Findings: No erythema or rash. Neurological: General: No focal deficit present. Mental Status: She is alert and oriented to person, place, and time. Sensory: No sensory deficit. Motor: No weakness. Coordination: Coordination normal. Gait: Gait normal. Psychiatric: Mood and Affect: Mood normal. Behavior: Behavior normal. Thought Content: Thought content normal. Judgment: Judgment normal. OARRS/NARxCHECK Report Received and Assessed: Jake Navarro DO on 06/26/2023 10:26 AM Date controlled substance agreement signed: 04/22/2023 Date of last drug screen: @Exam@ PHQ9: JOHNATHON-7 Tobacco Counseling: Counseling given: Not Answered Patient's Medications New Prescriptions No medications on file Previous Medications ASPIRIN (ECOTRIN ORAL) Take by mouth . ATORVASTATIN (LIPITOR) 40 MG TABLET Take 1 (one) tablet (40 mg total) by mouth nightly . BACLOFEN 5 MG TAB Take 1 (one) tablet (5 mg total) by mouth 3 (three) times a day . COLESTIPOL (COLESTID) 1 GRAM TABLET D-MANNOSE ORAL DIPHENHYDRAMINE-ACETAMINOPHEN (TYLENOL PM) 25-500 MG TAB Take 2 (two) tablets by mouth nightly as needed . DULOXETINE (CYMBALTA) 60 MG CAPSULE Take 1 (one) capsule (60 mg total) by mouth at bedtime . ESTRADIOL (ESTRACE) 0.01 % (0.1 MG/GRAM) VAGINAL CREAM Insert 2 (two) g into the vagina daily . LAMOTRIGINE (LAMICTAL) 200 MG TABLET Take 1 (one) tablet (200 mg total) by mouth daily Start: 07/10/23. LOSARTAN (COZAAR) 50 MG TABLET Take 1 (one) tablet (50 mg total) by mouth daily . METHADONE (DOLOPHINE) 5 MG TABLET Take 1 (one) tablet (5 mg total) by mouth 2 (two) times a day (Days supply per fill: 30) Start: 07/04/23. METHADONE (DOLOPHINE) 5 MG TABLET Take 1 (one) tablet (5 mg total) by mouth 2 (two) times a day (Days supply per fill: 30) Start: 08/01/23. METHADONE (DOLOPHINE) 5 MG TABLET Take 1 (one) tablet (5 mg total) by mouth 2 (two) times a day (Days supply per fill: 30) Start: 08/30/23. METOPROLOL SUCCINATE (TOPROL-XL) 50 MG 24 HR TABLET Take 1 (one) tablet (50 mg total) by mouth at bedtime . MULTIVIT-MIN/IRON/FOLIC/LUTEIN (CENTRUM SILVER WOMEN ORAL) Take 1 tablet by mouth daily. NALOXONE (NARCAN) 4 MG/ACTUATION SPRY Administer 1 spray into one nostril for known or suspected opioid overdose. If patient worsens or does not respond, may repeat in 2-3 minutes. . NITROGLYCERIN (NITROSTAT) 0.[address] 1 (one) tablet (0.4 mg total) under the tongue every 5 (five) minutes as needed for chest pain , if no relief after 3 doses call 911 . PANTOPRAZOLE (PROTONIX) 40 MG TABLET Take 1 (one) tablet (40 mg total) by mouth daily . SPIRONOLACTONE (ALDACTONE) 25 MG TABLET Take 1 (one) tablet (25 mg total) by mouth daily . UNIV COMP RX: AMITRIPTYLINE 2%, BACLOFEN 2%, GABAPENTIN 5%, LIDOCAINE 5% EMOLLIENT CREAM Apply 0.5 g topically 3 (three) times a day as needed . VIBEGRON (GEMTESA) 75 MG TAB Take by mouth . Modified Medications Modified Medication Previous Medication FUROSEMIDE (LASIX) 20 MG TABLET furosemide (LASIX) 20 MG tablet Take 2 (two) tablets (40 mg total) by mouth 2 (two) times a day . Take 1 (one) tablet (20 mg total) by mouth 2 (two) times a day . Discontinued Medications No medications on file Health Maintenance Due Topic Date Due Pneumococcal Vaccine: Age 65+ (1 of 2 - PCV) Never done Zoster Vaccines (1 of 2) Never done Diabetic Eye Exam 05/14/2022 COVID-19 Vaccine ( season) 2022 A1C 04/26/2023 Assessment & Plan Problem List Items Addressed This Visit Cardiovascular and Mediastinum Hypertension Continue on the same BP regimen and monitor for another 2 weeks Follow up 08/05 Relevant Medications furosemide (LASIX) 20 MG tablet Other Leg swelling increasing lasix to 40 mg twice a day for one week Repeat blood work in 1-2 weeks to check kidney functions Elevated legs whenever sitting down , she is going to work on wearing compression stockings. Potentially trying SCDs Other Visit Diagnoses Hypokalemia - Primary Relevant Orders Basic Metabolic Panel Chronic systolic heart failure (HCC) Relevant Medications furosemide (LASIX) 20 MG tablet Assessment & Plan 1. Confusion and balance issues. The patient's confusion and balance issues are likely attributable to the combination of cyclobenzaprine and carbamazepine. A comprehensive blood panel will be ordered. We will check with starting with home health. Elevated blood pressure. The patient's blood pressure is slightly elevated during this visit. The patient's blood pressure will be closely monitored. She is advised to monitor her blood pressure daily and maintain a log for the next 2 weeks. No follow-ups on file. My ongoing relationship with Cat Carroll requires continued responsibility and cognitive effort of being the focal point for all services related to serious condition(s). After discussing the use of ambient listening and audio recording in generating medical documentation, the patient verbally consented to use of this technology for today's visit. CLAUDINE MAJANO MD [facility] [id number] [facility] [address] [facility] [address] Dept: [phone] 02/11/2022 1:43 PM 07/25/2022 1:32 PM 02/20/2023 12:00 PM 02/25/2023 7:01 AM 05/11/2023 8:01 AM 05/20/2023 11:40 AM 07/09/2023 8:23 AM Depression Screening Little interest or pleasure in doing things 0 1 3 2 0 0 0 Feeling down, depressed, or hopeless 0 1 3 2 0 0 0 PHQ-2 Total Score 0 2 6 4 0 0 0 Trouble falling or staying asleep, or sleeping too much 1 0 2 3 0 Feeling tired or having little energy 1 1 1 2 0 Poor appetite or overeating 0 0 1 2 0 Feeling bad about yourself - or that you are a failure or have let yourself or your family down 0 0 0 0 0 Trouble concentrating on things, such as reading the newspaper or watching television 0 0 1 1 0 Moving or speaking so slowly that other people could have noticed. Or the opposite - being so fidgety or restless that you have been moving around a lot more than usual 0 0 0 0 0 Thoughts that you would be better off , or of hurting yourself in some way 0 0 1 1 0 PHQ-9 Total Score 2 3 12 13 0 If you checked off any problems, how difficult have these problems made it for you to do your work, take care of things at home, or get along with other people? Not difficult at all Not difficult at all Very difficult Not difficult at all Not difficult at all 02/11/2022 1:43 PM 07/25/2022 1:32 PM 02/20/2023 12:00 PM 02/25/2023 7:01 AM 05/11/2023 8:01 AM 05/20/2023 11:40 AM 07/09/2023 8:23 AM Depression Screening Little interest or pleasure in doing things 0 1 3 2 0 0 0 Feeling down, depressed, or hopeless 0 1 3 2 0 0 0 PHQ-2 Total Score 0 2 6 4 0 0 0 Trouble falling or staying asleep, or sleeping too much 1 0 2 3 0 Feeling tired or having little energy 1 1 1 2 0 Poor appetite or overeating 0 0 1 2 0 Feeling bad about yourself - or that you are a failure or have let yourself or your family down 0 0 0 0 0 Trouble concentrating on things, such as reading the newspaper or watching television 0 0 1 1 0 Moving or speaking so slowly that other people could have noticed. Or the opposite - being so fidgety or restless that you have been moving around a lot more than usual 0 0 0 0 0 Thoughts that you would be better off , or of hurting yourself in some way 0 0 1 1 0 PHQ-9 Total Score 2 3 12 13 0 If you checked off any problems, how difficult have these problems made it for you to do your work, take care of things at home, or get along with other people? Not difficult at all Not difficult at all Very difficult Not difficult at all Not difficult at all documented in this encounter [facility] 07-22-2023 History of Present illness Narrative Viv Mohan MA- Good afternoon, I was wondering if you can help me with this? This patient has never been contacted for Home Health. Dr. Majano had said she has talked to someone and told them she will follow pt for Home Health. Dacia Paulson RN- on 07/08 I documented that she did not qualify for home health and told the employment case manager- Patient does not have any current diagnosis to qualify for home health services. Dizziness is resolving with medication changes. Dacia Paulson RN- [facility] the stated this that day also- 1430 HRS: Pt, her son, Dr Howe aware pt is not able to receive insurance covered therapy as per [facility] liaison Dacia Paulson RN, patient does not have any current diagnosis to qualify for home health services. Dizziness is resolving with medication changes. Pt relays understand and aware she may call her PCP if feels she has further needs. Dr. Majano -thank you , Viv please call patient to clarify tomorrow , meaning the explain the reasoning of not starting it . I called Cat no answer I LMOM that she does not qualify for Home Health Services she has no current diagnosis, she has dizziness and it is resolving with medication changes. Left contact #. Chief Complaint Patient presents with Transition Of Care HPI: Cat Carroll is a 88 y.o. female presenting today for MARISELA. Former patient of [facility]. Has PMH of prediabetes, coronary artery disease, IA previous, trigeminal neuralgia and chronic low back pain, Kelly's esophagus, fibromyalgia as well as urinary incontinence. Mild systolic dysfunction: Echo last known LVEF of 45 to 50%, repeat echo shows improvement in LVEF of 59% done in September 2022. Continue metoprolol succinate 50 mg daily, losartan 100 mg daily Denies any symptoms of chest pain or shortness of breath. Swelling in the leg is down with adding low-dose Lasix at 20 mg. 03/27: Has been having increased swelling in the leg starting at a.m. even with compression stockings on that she has all days and sometimes sleeping with them at night. Trying to elevate her legs up during the day and taking her Lasix 20 mg twice daily. She denies any associated shortness of breath or chest pain or dizziness with that. Leg swelling : Has been worse in the past month has been taking her Lasix twice daily and quit doing compression stockings as it seems to hurt her legs all day. Has been elevating her legs up. She finds compression stockings to be excessively tight and cut the back of her leg. She has previously tried zippers, but found them ineffective. She elevates her legs when seated. History of Present Illness Weakness and altered mental status: Last visit which was scheduled for preop, patient was unsteady and mildly confused that she was evaluated in the ER and admitted for polypharmacy. The patient reports an overall improvement in her condition, albeit with a lack of stability when utilizing a rollator for mobility. She was previously prescribed cyclobenzaprine for imbalance, malaise, and slight confusion. Her last consultation with Dr. Mena was in 07/2023, after which she transitioned to Dr. Kirkland, who discontinued her carbamazepine. Her neighbor notes an increase in confusion and memory lapses since the cessation of carbamazepine, suggesting a possible withdrawal symptom. Dr. Mcleod has reintroduced baclofen at a low dose 2.5 mg to be increased to 5 mg twice daily to her regimen and Lamictal. She has a follow-up appointment with Dr. Kirkland in 4 months. Has not commenced home health yet. Pain control: The patient is currently on methadone 5 mg twice daily for back pain, which has not provided relief. She continues to experience back pain and is scheduled for a nerve procedure. Her methadone dosage was initially 10 mg twice daily, now at 5 mg twice daily, was informed her that discontinuation of methadone will be performed post-nerve surgery. The patient does not monitor her blood pressure at home, despite owning a blood pressure machine. Supplemental Information She has a Ghotra catheter in place. She denies any dysuria. Her grandmother had a stroke. 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 prior biopsies no dysplasia last biopsies 08/2014 Benign carcinoid tumor of the duodenum 2014 Cancer (HCC) skin cancer-squamous cells removed Chronic kidney disease (CKD), stage III (moderate) (HCC) 09/12/2016 EGFR 43 Fibromyalgia Floating kidney GERD (gastroesophageal reflux disease) 2009 Hypertension 1999 Macular degeneration 2017 Myocardial infarction (HCC) 08/2018 STEMI Osteoporosis 2010 Trigeminal neuralgia of left side of face 2005 Vertigo Vitamin D deficiency 2016 Past Surgical History: Procedure Laterality Date BACK SURGERY 2013 fusion and rods placed in lower back. Rick thompson. Dr Hinds BLADDER REPAIR 1989 CATARACT EXT/ECCE Bilateral 2011 Dr arambula CHOLECYSTECTOMY CYST REMOVAL Right 1999 cyst removal from rt breast-benign DILATION AND CURETTAGE (D AND C) 1970 x 2 EGD 01/01/2015 Dr. ZavalaMtnwrd-Bxtufusby-Bcgybrl's esophagus EGD 08/2014 Dr. Vinicius Pruett-Barrett's esophagitis biopsies negative for dysplasia. ESOPHAGOGASTRODUODENOSCOPY 01/04/2018 Dr. Zavala -biopsies performed-Kelly's esophagitis-carcinoid tumor posterior wall duodenum FRACTURE SURGERY Right Plates and screws in rt arm after fracture. dr Dolan LEFT HEART CATH N/A 08/23/2018 Procedure: Left Heart Cath; Surgeon: Glen Fair MD; Location: [facility]; Service: Cardiovascular HYSTERECTOMY 1974 KIDNEY SURGERY 1969 had exploratory surgery d/t floating kidney Dx KNEE SURGERY Left 1997 left knee arthoscopy LUMPECTOMY Left 1989 benign ORIF HIP GAMMA NAIL Right 04/02/2020 IN NJX DX/THER AGT PVRT FACET JT LMBR/SAC 1 LEVEL Bilateral 06/18/2023 Procedure: Lumbar medial branch nerve blocks, bilateral lumbar 2-3-4; Surgeon: Jake Navarro DO; Location: Main OR; Service: Pain Management IN NJX DX/THER AGT PVRT FACET JT LMBR/SAC 1 LEVEL Bilateral 07/02/2023 Procedure: Lumbar medial branch nerve blocks, bilateral lumbar 2-3-4; Surgeon: Jake Navarro DO; Location: Main OR; Service: Pain Management SQUAMOUS CELL CARCINOMA EXCISION x4 TOTAL KNEE ARTHROPLASTY Left 2013 dr dolan TUMOR REMOVAL 2012 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 Family History Problem Relation Age of Onset Diabetes Mother Heart disease Mother Heart disease Father Stroke Father Diabetes Sister Dementia Sister Heart disease Brother Diabetes Brother Diabetes Maternal Uncle Bipolar disorder Daughter Diabetes Son Cancer Neg Hx Aneurysm Neg Hx Seizures Neg Hx Social History Tobacco Use Smoking status: Former Packs/day: 0 Types: Cigarettes Quit date: 04/03/1976 Years since quittin.3 Passive exposure: Never Smokeless tobacco: Never Vaping Use Vaping Use: Never used Substance Use Topics Alcohol use: No Drug use: No Review of Systems Vitals: 07/21/23 1521 07/21/23 1527 07/21/23 1617 BP: (!) 158/75 (!) 143/82 (!) 145/77 BP Location: Right arm Left arm Patient Position: Sitting Sitting BP Cuff Size: Adult Adult Pulse: 74 75 Resp: 16 Temp: 97.8 F (36.6 C) TempSrc: Temporal SpO2: 96% Weight: 56.2 kg (124 lb) Height: 5' 4 Estimated body mass index is 21.28 kg/m as calculated from the following: Height as of this encounter: 5' 4. Weight as of this encounter: 56.2 kg (124 lb). Physical Exam Constitutional: General: She is not in acute distress. Appearance: She is not ill-appearing. HENT: Head: Normocephalic and atraumatic. Eyes: Extraocular Movements: Extraocular movements intact. Conjunctiva/sclera: Conjunctivae normal. Pupils: Pupils are equal, round, and reactive to light. Cardiovascular: Rate and Rhythm: Normal rate and regular rhythm. Pulses: Normal pulses. Heart sounds: Normal heart sounds. No murmur heard. No gallop. Pulmonary: Effort: Pulmonary effort is normal. Breath sounds: Normal breath sounds. No wheezing, rhonchi or rales. Chest: Chest wall: No tenderness. Abdominal: General: Abdomen is flat. Bowel sounds are normal. There is no distension. Palpations: Abdomen is soft. There is no mass. Tenderness: There is no abdominal tenderness. There is no right CVA tenderness, left CVA tenderness, guarding or rebound. Musculoskeletal: General: No tenderness. Normal range of motion. Cervical back: Normal range of motion and neck supple. No rigidity. No muscular tenderness. Right lower leg: Edema present. Left lower leg: Edema present. Comments: +2-3 pitting edema up to the knees bilaterally Lymphadenopathy: Cervical: No cervical adenopathy. Skin: General: Skin is warm. Findings: No erythema or rash. Neurological: General: No focal deficit present. Mental Status: She is alert and oriented to person, place, and time. Sensory: No sensory deficit. Motor: No weakness. Coordination: Coordination normal. Gait: Gait normal. Psychiatric: Mood and Affect: Mood normal. Behavior: Behavior normal. Thought Content: Thought content normal. Judgment: Judgment normal. OARRS/NARxCHECK Report Received and Assessed: Jake Navarro DO on 06/26/2023 10:26 AM Date controlled substance agreement signed: 04/22/2023 Date of last drug screen: @Exam@ PHQ9: JOHNATHON-7 Tobacco Counseling: Counseling given: Not Answered Patient's Medications New Prescriptions No medications on file Previous Medications ASPIRIN (ECOTRIN ORAL) Take by mouth . ATORVASTATIN (LIPITOR) 40 MG TABLET Take 1 (one) tablet (40 mg total) by mouth nightly . BACLOFEN 5 MG TAB Take 1 (one) tablet (5 mg total) by mouth 3 (three) times a day . COLESTIPOL (COLESTID) 1 GRAM TABLET D-MANNOSE ORAL DIPHENHYDRAMINE-ACETAMINOPHEN (TYLENOL PM) 25-500 MG TAB Take 2 (two) tablets by mouth nightly as needed . DULOXETINE (CYMBALTA) 60 MG CAPSULE Take 1 (one) capsule (60 mg total) by mouth at bedtime . ESTRADIOL (ESTRACE) 0.01 % (0.1 MG/GRAM) VAGINAL CREAM Insert 2 (two) g into the vagina daily . LAMOTRIGINE (LAMICTAL) 200 MG TABLET Take 1 (one) tablet (200 mg total) by mouth daily Start: 07/10/23. LOSARTAN (COZAAR) 50 MG TABLET Take 1 (one) tablet (50 mg total) by mouth daily . METHADONE (DOLOPHINE) 5 MG TABLET Take 1 (one) tablet (5 mg total) by mouth 2 (two) times a day (Days supply per fill: 30) Start: 07/04/23. METHADONE (DOLOPHINE) 5 MG TABLET Take 1 (one) tablet (5 mg total) by mouth 2 (two) times a day (Days supply per fill: 30) Start: 08/01/23. METHADONE (DOLOPHINE) 5 MG TABLET Take 1 (one) tablet (5 mg total) by mouth 2 (two) times a day (Days supply per fill: 30) Start: 08/30/23. METOPROLOL SUCCINATE (TOPROL-XL) 50 MG 24 HR TABLET Take 1 (one) tablet (50 mg total) by mouth at bedtime . MULTIVIT-MIN/IRON/FOLIC/LUTEIN (CENTRUM SILVER WOMEN ORAL) Take 1 tablet by mouth daily. NALOXONE (NARCAN) 4 MG/ACTUATION SPRY Administer 1 spray into one nostril for known or suspected opioid overdose. If patient worsens or does not respond, may repeat in 2-3 minutes. . NITROGLYCERIN (NITROSTAT) 0.[address] 1 (one) tablet (0.4 mg total) under the tongue every 5 (five) minutes as needed for chest pain , if no relief after 3 doses call 911 . PANTOPRAZOLE (PROTONIX) 40 MG TABLET Take 1 (one) tablet (40 mg total) by mouth daily . SPIRONOLACTONE (ALDACTONE) 25 MG TABLET Take 1 (one) tablet (25 mg total) by mouth daily . UNIV COMP RX: AMITRIPTYLINE 2%, BACLOFEN 2%, GABAPENTIN 5%, LIDOCAINE 5% EMOLLIENT CREAM Apply 0.5 g topically 3 (three) times a day as needed . VIBEGRON (GEMTESA) 75 MG TAB Take by mouth . Modified Medications Modified Medication Previous Medication FUROSEMIDE (LASIX) 20 MG TABLET furosemide (LASIX) 20 MG tablet Take 2 (two) tablets (40 mg total) by mouth 2 (two) times a day . Take 1 (one) tablet (20 mg total) by mouth 2 (two) times a day . Discontinued Medications No medications on file Health Maintenance Due Topic Date Due Pneumococcal Vaccine: Age 65+ (1 of 2 - PCV) Never done Zoster Vaccines (1 of 2) Never done Diabetic Eye Exam 05/14/2022 COVID-19 Vaccine ( season) 2022 A1C 04/26/2023 Assessment & Plan Problem List Items Addressed This Visit Cardiovascular and Mediastinum Hypertension Continue on the same BP regimen and monitor for another 2 weeks Follow up 08/05 Relevant Medications furosemide (LASIX) 20 MG tablet Other Leg swelling increasing lasix to 40 mg twice a day for one week Repeat blood work in 1-2 weeks to check kidney functions Elevated legs whenever sitting down , she is going to work on wearing compression stockings. Potentially trying SCDs Other Visit Diagnoses Hypokalemia - Primary Relevant Orders Basic Metabolic Panel Chronic systolic heart failure (HCC) Relevant Medications furosemide (LASIX) 20 MG tablet Assessment & Plan 1. Confusion and balance issues. The patient's confusion and balance issues are likely attributable to the combination of cyclobenzaprine and carbamazepine. A comprehensive blood panel will be ordered. We will check with starting with home health. Elevated blood pressure. The patient's blood pressure is slightly elevated during this visit. The patient's blood pressure will be closely monitored. She is advised to monitor her blood pressure daily and maintain a log for the next 2 weeks. No follow-ups on file. My ongoing relationship with Cat Carroll requires continued responsibility and cognitive effort of being the focal point for all services related to serious condition(s). After discussing the use of ambient listening and audio recording in generating medical documentation, the patient verbally consented to use of this technology for today's visit. CLAUDINE MAJANO MD [facility] [id number] Dept: [phone] 02/11/2022 1:43 PM 07/25/2022 1:32 PM 02/20/2023 12:00 PM 02/25/2023 7:01 AM 05/11/2023 8:01 AM 05/20/2023 11:40 AM 07/09/2023 8:23 AM Depression Screening Little interest or pleasure in doing things 0 1 3 2 0 0 0 Feeling down, depressed, or hopeless 0 1 3 2 0 0 0 PHQ-2 Total Score 0 2 6 4 0 0 0 Trouble falling or staying asleep, or sleeping too much 1 0 2 3 0 Feeling tired or having little energy 1 1 1 2 0 Poor appetite or overeating 0 0 1 2 0 Feeling bad about yourself - or that you are a failure or have let yourself or your family down 0 0 0 0 0 Trouble concentrating on things, such as reading the newspaper or watching television 0 0 1 1 0 Moving or speaking so slowly that other people could have noticed. Or the opposite - being so fidgety or restless that you have been moving around a lot more than usual 0 0 0 0 0 Thoughts that you would be better off , or of hurting yourself in some way 0 0 1 1 0 PHQ-9 Total Score 2 3 12 13 0 If you checked off any problems, how difficult have these problems made it for you to do your work, take care of things at home, or get along with other people? Not difficult at all Not difficult at all Very difficult Not difficult at all Not difficult at all 02/11/2022 1:43 PM 07/25/2022 1:32 PM 02/20/2023 12:00 PM 02/25/2023 7:01 AM 05/11/2023 8:01 AM 05/20/2023 11:40 AM 07/09/2023 8:23 AM Depression Screening Little interest or pleasure in doing things 0 1 3 2 0 0 0 Feeling down, depressed, or hopeless 0 1 3 2 0 0 0 PHQ-2 Total Score 0 2 6 4 0 0 0 Trouble falling or staying asleep, or sleeping too much 1 0 2 3 0 Feeling tired or having little energy 1 1 1 2 0 Poor appetite or overeating 0 0 1 2 0 Feeling bad about yourself - or that you are a failure or have let yourself or your family down 0 0 0 0 0 Trouble concentrating on things, such as reading the newspaper or watching television 0 0 1 1 0 Moving or speaking so slowly that other people could have noticed. Or the opposite - being so fidgety or restless that you have been moving around a lot more than usual 0 0 0 0 0 Thoughts that you would be better off , or of hurting yourself in some way 0 0 1 1 0 PHQ-9 Total Score 2 3 12 13 0 If you checked off any problems, how difficult have these problems made it for you to do your work, take care of things at home, or get along with other people? Not difficult at all Not difficult at all Very difficult Not difficult at all Not difficult at all documented in this encounter [facility] 07-21-2023 Evaluation + Plan note Associated Problem(s): Hypertension Continue on the same BP regimen and monitor for another 2 weeks Follow up 08/05 [facility] 07-21-2023 Miscellaneous Notes Associated Problem(s): Hypertension Continue on the same BP regimen and monitor for another 2 weeks Follow up 08/05 Associated Problem(s): Leg swelling increasing lasix to 40 mg twice a day for one week Repeat blood work in 1-2 weeks to check kidney functions Elevated legs whenever sitting down , she is going to work on wearing compression stockings. Potentially trying SCDs documented in this encounter [facility] 07-21-2023 Miscellaneous Notes Associated Problem(s): Hypertension Continue on the same BP regimen and monitor for another 2 weeks Follow up 08/05 Associated Problem(s): Leg swelling increasing lasix to 40 mg twice a day for one week Repeat blood work in 1-2 weeks to check kidney functions Elevated legs whenever sitting down , she is going to work on wearing compression stockings. Potentially trying SCDs documented in this encounter [facility] 07-21-2023 Miscellaneous Notes Associated Problem(s): Hypertension Continue on the same BP regimen and monitor for another 2 weeks Follow up 08/05 Associated Problem(s): Leg swelling increasing lasix to 40 mg twice a day for one week Repeat blood work in 1-2 weeks to check kidney functions Elevated legs whenever sitting down , she is going to work on wearing compression stockings. Potentially trying SCDs documented in this encounter [facility] 07-21-2023 Evaluation + Plan note Associated Problem(s): Leg swelling increasing lasix to 40 mg twice a day for one week Repeat blood work in 1-2 weeks to check kidney functions Elevated legs whenever sitting down , she is going to work on wearing compression stockings. Potentially trying SCDs [facility] 07-21-2023 History of Present illness Narrative Chief Complaint Patient presents with Transition Of Care HPI: Cat Carroll is a 88 y.o. female presenting today for MARISELA. Former patient of Gisell Desai. Has PMH of prediabetes, coronary artery disease, IA previous, trigeminal neuralgia and chronic low back pain, Kelly's esophagus, fibromyalgia as well as urinary incontinence. Mild systolic dysfunction: Echo last known LVEF of 45 to 50%, repeat echo shows improvement in LVEF of 59% done in September 2022. Continue metoprolol succinate 50 mg daily, losartan 100 mg daily Denies any symptoms of chest pain or shortness of breath. Swelling in the leg is down with adding low-dose Lasix at 20 mg. 03/27: Has been having increased swelling in the leg starting at a.m. even with compression stockings on that she has all days and sometimes sleeping with them at night. Trying to elevate her legs up during the day and taking her Lasix 20 mg twice daily. She denies any associated shortness of breath or chest pain or dizziness with that. Leg swelling : Has been worse in the past month has been taking her Lasix twice daily and quit doing compression stockings as it seems to hurt her legs all day. Has been elevating her legs up. She finds compression stockings to be excessively tight and cut the back of her leg. She has previously tried zippers, but found them ineffective. She elevates her legs when seated. History of Present Illness Weakness and altered mental status: Last visit which was scheduled for preop, patient was unsteady and mildly confused that she was evaluated in the ER and admitted for polypharmacy. The patient reports an overall improvement in her condition, albeit with a lack of stability when utilizing a rollator for mobility. She was previously prescribed cyclobenzaprine for imbalance, malaise, and slight confusion. Her last consultation with Dr. Mena was in 07/2023, after which she transitioned to Dr. Kirkland, who discontinued her carbamazepine. Her neighbor notes an increase in confusion and memory lapses since the cessation of carbamazepine, suggesting a possible withdrawal symptom. Dr. Mcleod has reintroduced baclofen at a low dose 2.5 mg to be increased to 5 mg twice daily to her regimen and Lamictal. She has a follow-up appointment with Dr. Kirkland in 4 months. Has not commenced home health yet. Pain control: The patient is currently on methadone 5 mg twice daily for back pain, which has not provided relief. She continues to experience back pain and is scheduled for a nerve procedure. Her methadone dosage was initially 10 mg twice daily, now at 5 mg twice daily, was informed her that discontinuation of methadone will be performed post-nerve surgery. The patient does not monitor her blood pressure at home, despite owning a blood pressure machine. Supplemental Information She has a Ghotra catheter in place. She denies any dysuria. Her grandmother had a stroke. 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 prior biopsies no dysplasia last biopsies 08/2014 Benign carcinoid tumor of the duodenum 2014 Cancer (HCC) skin cancer-squamous cells removed Chronic kidney disease (CKD), stage III (moderate) (HCC) 09/12/2016 EGFR 43 Fibromyalgia Floating kidney GERD (gastroesophageal reflux disease) 2009 Hypertension 1999 Macular degeneration 2017 Myocardial infarction ([facility]) 08/2018 STEMI Osteoporosis 2010 Trigeminal neuralgia of left side of face 2004 Vertigo Vitamin D deficiency 2016 Past Surgical History: Procedure Laterality Date BACK SURGERY 2013 fusion and rods placed in lower back. Cabrera donna. Dr Hinds BLADDER REPAIR 1989 CATARACT EXT/ECCE Bilateral 2011 Dr [place]ula CHOLECYSTECTOMY CYST REMOVAL Right 2000 cyst removal from rt breast-benign DILATION AND CURETTAGE (D AND C) 1970 x 2 EGD 01/01/2015 Dr. ZavalaHdrjvu-Qxivcmsdc-Oclezro's esophagus EGD 08/2014 Dr. Vinicius RamachandranN-Lvzpngljh-Fstquqv's esophagitis biopsies negative for dysplasia. ESOPHAGOGASTRODUODENOSCOPY 01/04/2018 Dr. Zavala -biopsies performed-Kelly's esophagitis-carcinoid tumor posterior wall duodenum FRACTURE SURGERY Right Plates and screws in rt arm after fracture. dr Dolan [facility] LEFT HEART CATH N/A 08/23/2018 Procedure: Left Heart Cath; Surgeon: Glen Fair MD; Location: [facility]; Service: Cardiovascular HYSTERECTOMY 1974 KIDNEY SURGERY 1969 had exploratory surgery d/t floating kidney Dx KNEE SURGERY Left 1997 left knee arthoscopy LUMPECTOMY Left 1989 benign ORIF HIP GAMMA NAIL Right 04/02/2020 IN NJX DX/THER AGT PVRT FACET JT LMBR/SAC 1 LEVEL Bilateral 06/18/2023 Procedure: Lumbar medial branch nerve blocks, bilateral lumbar 2-3-4; Surgeon: Jake Navarro DO; Location: Main OR; Service: Pain Management IN NJX DX/THER AGT PVRT FACET JT LMBR/SAC 1 LEVEL Bilateral 07/02/2023 Procedure: Lumbar medial branch nerve blocks, bilateral lumbar 2-3-4; Surgeon: Jake Navarro DO; Location: Main OR; Service: Pain Management SQUAMOUS CELL CARCINOMA EXCISION x4 TOTAL KNEE ARTHROPLASTY Left 2012 dr dolan TUMOR REMOVAL 2011 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 Family History Problem Relation Age of Onset Diabetes Mother Heart disease Mother Heart disease Father Stroke Father Diabetes Sister Dementia Sister Heart disease Brother Diabetes Brother Diabetes Maternal Uncle Bipolar disorder Daughter Diabetes Son Cancer Neg Hx Aneurysm Neg Hx Seizures Neg Hx Social History Tobacco Use Smoking status: Former Packs/day: 0 Types: Cigarettes Quit date: 04/03/1976 Years since quittin.3 Passive exposure: Never Smokeless tobacco: Never Vaping Use Vaping Use: Never used Substance Use Topics Alcohol use: No Drug use: No Review of Systems Vitals: 07/21/23 1521 07/21/23 1527 07/21/23 1617 BP: (!) 158/75 (!) 143/82 (!) 145/77 BP Location: Right arm Left arm Patient Position: Sitting Sitting BP Cuff Size: Adult Adult Pulse: 74 75 Resp: 16 Temp: 97.8 F (36.6 C) TempSrc: Temporal SpO2: 96% Weight: 56.2 kg (124 lb) Height: 5' 4 Estimated body mass index is 21.28 kg/m as calculated from the following: Height as of this encounter: 5' 4. Weight as of this encounter: 56.2 kg (124 lb). Physical Exam Constitutional: General: She is not in acute distress. Appearance: She is not ill-appearing. HENT: Head: Normocephalic and atraumatic. Eyes: Extraocular Movements: Extraocular movements intact. Conjunctiva/sclera: Conjunctivae normal. Pupils: Pupils are equal, round, and reactive to light. Cardiovascular: Rate and Rhythm: Normal rate and regular rhythm. Pulses: Normal pulses. Heart sounds: Normal heart sounds. No murmur heard. No gallop. Pulmonary: Effort: Pulmonary effort is normal. Breath sounds: Normal breath sounds. No wheezing, rhonchi or rales. Chest: Chest wall: No tenderness. Abdominal: General: Abdomen is flat. Bowel sounds are normal. There is no distension. Palpations: Abdomen is soft. There is no mass. Tenderness: There is no abdominal tenderness. There is no right CVA tenderness, left CVA tenderness, guarding or rebound. Musculoskeletal: General: No tenderness. Normal range of motion. Cervical back: Normal range of motion and neck supple. No rigidity. No muscular tenderness. Right lower leg: Edema present. Left lower leg: Edema present. Comments: +2-3 pitting edema up to the knees bilaterally Lymphadenopathy: Cervical: No cervical adenopathy. Skin: General: Skin is warm. Findings: No erythema or rash. Neurological: General: No focal deficit present. Mental Status: She is alert and oriented to person, place, and time. Sensory: No sensory deficit. Motor: No weakness. Coordination: Coordination normal. Gait: Gait normal. Psychiatric: Mood and Affect: Mood normal. Behavior: Behavior normal. Thought Content: Thought content normal. Judgment: Judgment normal. OARRS/NARxCHECK Report Received and Assessed: Jake Navarro DO on 06/26/2023 10:26 AM Date controlled substance agreement signed: 04/22/2023 Date of last drug screen: @Exam@ PHQ9: JOHNATHON-7 Tobacco Counseling: Counseling given: Not Answered Patient's Medications New Prescriptions No medications on file Previous Medications ASPIRIN (ECOTRIN ORAL) Take by mouth . ATORVASTATIN (LIPITOR) 40 MG TABLET Take 1 (one) tablet (40 mg total) by mouth nightly . BACLOFEN 5 MG TAB Take 1 (one) tablet (5 mg total) by mouth 3 (three) times a day . COLESTIPOL (COLESTID) 1 GRAM TABLET D-MANNOSE ORAL DIPHENHYDRAMINE-ACETAMINOPHEN (TYLENOL PM) 25-500 MG TAB Take 2 (two) tablets by mouth nightly as needed . DULOXETINE (CYMBALTA) 60 MG CAPSULE Take 1 (one) capsule (60 mg total) by mouth at bedtime . ESTRADIOL (ESTRACE) 0.01 % (0.1 MG/GRAM) VAGINAL CREAM Insert 2 (two) g into the vagina daily . LAMOTRIGINE (LAMICTAL) 200 MG TABLET Take 1 (one) tablet (200 mg total) by mouth daily Start: 07/10/23. LOSARTAN (COZAAR) 50 MG TABLET Take 1 (one) tablet (50 mg total) by mouth daily . METHADONE (DOLOPHINE) 5 MG TABLET Take 1 (one) tablet (5 mg total) by mouth 2 (two) times a day (Days supply per fill: 30) Start: 07/04/23. METHADONE (DOLOPHINE) 5 MG TABLET Take 1 (one) tablet (5 mg total) by mouth 2 (two) times a day (Days supply per fill: 30) Start: 08/01/23. METHADONE (DOLOPHINE) 5 MG TABLET Take 1 (one) tablet (5 mg total) by mouth 2 (two) times a day (Days supply per fill: 30) Start: 08/30/23. METOPROLOL SUCCINATE (TOPROL-XL) 50 MG 24 HR TABLET Take 1 (one) tablet (50 mg total) by mouth at bedtime . MULTIVIT-MIN/IRON/FOLIC/LUTEIN (CENTRUM SILVER WOMEN ORAL) Take 1 tablet by mouth daily. NALOXONE (NARCAN) 4 MG/ACTUATION SPRY Administer 1 spray into one nostril for known or suspected opioid overdose. If patient worsens or does not respond, may repeat in 2-3 minutes. . NITROGLYCERIN (NITROSTAT) 0.[address] 1 (one) tablet (0.4 mg total) under the tongue every 5 (five) minutes as needed for chest pain , if no relief after 3 doses call 911 . PANTOPRAZOLE (PROTONIX) 40 MG TABLET Take 1 (one) tablet (40 mg total) by mouth daily . SPIRONOLACTONE (ALDACTONE) 25 MG TABLET Take 1 (one) tablet (25 mg total) by mouth daily . UNIV COMP RX: AMITRIPTYLINE 2%, BACLOFEN 2%, GABAPENTIN 5%, LIDOCAINE 5% EMOLLIENT CREAM Apply 0.5 g topically 3 (three) times a day as needed . VIBEGRON (GEMTESA) 75 MG TAB Take by mouth . Modified Medications Modified Medication Previous Medication FUROSEMIDE (LASIX) 20 MG TABLET furosemide (LASIX) 20 MG tablet Take 2 (two) tablets (40 mg total) by mouth 2 (two) times a day . Take 1 (one) tablet (20 mg total) by mouth 2 (two) times a day . Discontinued Medications No medications on file Health Maintenance Due Topic Date Due Pneumococcal Vaccine: Age 65+ (1 of 2 - PCV) Never done Zoster Vaccines (1 of 2) Never done Diabetic Eye Exam 05/14/2022 COVID-19 Vaccine ( season) 2022 A1C 04/26/2023 Assessment & Plan Problem List Items Addressed This Visit Cardiovascular and Mediastinum Hypertension Continue on the same BP regimen and monitor for another 2 weeks Follow up 08/05 Relevant Medications furosemide (LASIX) 20 MG tablet Other Leg swelling increasing lasix to 40 mg twice a day for one week Repeat blood work in 1-2 weeks to check kidney functions Elevated legs whenever sitting down , she is going to work on wearing compression stockings. Potentially trying SCDs Other Visit Diagnoses Hypokalemia - Primary Relevant Orders Basic Metabolic Panel Chronic systolic heart failure (HCC) Relevant Medications furosemide (LASIX) 20 MG tablet Assessment & Plan 1. Confusion and balance issues. The patient's confusion and balance issues are likely attributable to the combination of cyclobenzaprine and carbamazepine. A comprehensive blood panel will be ordered. We will check with starting with home health. Elevated blood pressure. The patient's blood pressure is slightly elevated during this visit. The patient's blood pressure will be closely monitored. She is advised to monitor her blood pressure daily and maintain a log for the next 2 weeks. No follow-ups on file. My ongoing relationship with Cat Carroll requires continued responsibility and cognitive effort of being the focal point for all services related to serious condition(s). After discussing the use of ambient listening and audio recording in generating medical documentation, the patient verbally consented to use of this technology for today's visit. CLAUDINE MAJANO MD [facility] [address] [facility] [address] [place] [id number] Dept: [phone] 02/11/2022 1:43 PM 07/25/2022 1:32 PM 02/20/2023 12:00 PM 02/25/2023 7:01 AM 05/11/2023 8:01 AM 05/20/2023 11:40 AM 07/09/2023 8:23 AM Depression Screening Little interest or pleasure in doing things 0 1 3 2 0 0 0 Feeling down, depressed, or hopeless 0 1 3 2 0 0 0 PHQ-2 Total Score 0 2 6 4 0 0 0 Trouble falling or staying asleep, or sleeping too much 1 0 2 3 0 Feeling tired or having little energy 1 1 1 2 0 Poor appetite or overeating 0 0 1 2 0 Feeling bad about yourself - or that you are a failure or have let yourself or your family down 0 0 0 0 0 Trouble concentrating on things, such as reading the newspaper or watching television 0 0 1 1 0 Moving or speaking so slowly that other people could have noticed. Or the opposite - being so fidgety or restless that you have been moving around a lot more than usual 0 0 0 0 0 Thoughts that you would be better off , or of hurting yourself in some way 0 0 1 1 0 PHQ-9 Total Score 2 3 12 13 0 If you checked off any problems, how difficult have these problems made it for you to do your work, take care of things at home, or get along with other people? Not difficult at all Not difficult at all Very difficult Not difficult at all Not difficult at all 02/11/2022 1:43 PM 07/25/2022 1:32 PM 02/20/2023 12:00 PM 02/25/2023 7:01 AM 05/11/2023 8:01 AM 05/20/2023 11:40 AM 07/09/2023 8:23 AM Depression Screening Little interest or pleasure in doing things 0 1 3 2 0 0 0 Feeling down, depressed, or hopeless 0 1 3 2 0 0 0 PHQ-2 Total Score 0 2 6 4 0 0 0 Trouble falling or staying asleep, or sleeping too much 1 0 2 3 0 Feeling tired or having little energy 1 1 1 2 0 Poor appetite or overeating 0 0 1 2 0 Feeling bad about yourself - or that you are a failure or have let yourself or your family down 0 0 0 0 0 Trouble concentrating on things, such as reading the newspaper or watching television 0 0 1 1 0 Moving or speaking so slowly that other people could have noticed. Or the opposite - being so fidgety or restless that you have been moving around a lot more than usual 0 0 0 0 0 Thoughts that you would be better off , or of hurting yourself in some way 0 0 1 1 0 PHQ-9 Total Score 2 3 12 13 0 If you checked off any problems, how difficult have these problems made it for you to do your work, take care of things at home, or get along with other people? Not difficult at all Not difficult at all Very difficult Not difficult at all Not difficult at all documented in this encounter [facility] 07-10-2023 History of Present illness Narrative ERROR IT'S A 2024 APPT* PATIENT ALREADY HAS [facility] APPT SCHEDULED. WE WILL CHANGE TYPE TO MARISELA 07/10/23 0952 MARISELA General Info Assessment completed with: Patient Post-Discharge Call: Medications Is the patient taking all medications as directed (includes completed medication regime)? Yes Nursing Interventions Nurse provided patient education Medications reviewed with patient/caregiver? Yes Is the patient having any side effects they believe may be caused by any medication additions or changes? No Does the patient have all medications ordered at discharge? Yes Nursing Interventions Nurse provided patient education Appointments Does the patient have a primary care provider? Yes Does the patient have a follow up appointment scheduled related to this admission? No Nursing Interventions Educated patient on importance of making appointment;Advised patient to make appointment Self Management Was Home Health ordered? No Was Durable Medical Equipment (DME) ordered? No Are there psychosocial issues? No (Pts brother is available to help with transportation if [facility] is not available.) Patient Teaching Did the patient receive a copy of their discharge instructions? Yes What is the patient's perception of their health status since discharge? Improving Provided education for complications or exacerbations and when to seek emergent/urgent care? Yes;Patient verbalized understanding Is the patient/cargiver able to teach back the hierarchy of who to call/visit for symptoms/problems? (PCP, Specialist, Home Health Nurse, Urgent Care, ED, 911) Yes Additional Teach Back Comments Patient is doing fine. She has not had any dizziness. She uses [employer] for transportation. She also receives meals on wheels. Patient denies any questions or concerns at this time. RNCM contact information provided. Did the patient feel the follow up calls were helpful during their recovery period? Yes (Pt has no needs at this time.) [facility] Admitted: 07/07/2023 Discharge Date: 07/09/23 PCP Handoff Recommended Outpatient Testing Follow up with neurology Clinical Summary PLAN: - reduce baclofen; can take 2.5mg TID to start if she wants then go to 5mg TID. - stop carbamazepine - continue lamotrigine 200mg daily after discharge. Assessment and Plan Cat Carroll is a 88 y.o. female patient of Claudine Majano MD with history of trigeminal neuralgia, presented to [facility] on 07/07/2023 with difficulty with balance. Difficulty with balance Likely medication related Patient states that she is a difficulty with balance since starting carbamazepine, slowly being weaned off by her outpatient neurologist CT head negative for acute process No focal deficits on exam Discussed with neurology - plan as above Altered mental status - resolved Chart review noted slight confusion in the ED Patient answering questions appropriately Delirium precautions Trigeminal neuralgia Plan as above Stop carbamazepine and restart baclofen and continue Lamictal Chronic lower back pain Continue home methadone dose As needed Tylenol 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 Majano on or before 07/23/23 to meet criteria. Future Appointments Date Time Provider Department Center 08/06/2023 3:40 PM Claudine Majano MD [facility] 08/18/2023 1:00 PM [facility], ECHO 1 [facility] [place] 09/28/2023 10:15 AM Jake Navarro DO [facility] 07/18/2024 1:00 PM Claudine Majano MD [facility] documented in this encounter [facility] 07-10-2023 History of Present illness Narrative 07/21/23 MARISELA APPT SCHEDULED ERROR IT'S A 2024 APPT* PATIENT ALREADY HAS [facility] APPT SCHEDULED. WE WILL CHANGE TYPE TO MARISELA 07/10/23 0952 MARISELA General Info Assessment completed with: Patient Post-Discharge Call: Medications Is the patient taking all medications as directed (includes completed medication regime)? Yes Nursing Interventions Nurse provided patient education Medications reviewed with patient/caregiver? Yes Is the patient having any side effects they believe may be caused by any medication additions or changes? No Does the patient have all medications ordered at discharge? Yes Nursing Interventions Nurse provided patient education Appointments Does the patient have a primary care provider? Yes Does the patient have a follow up appointment scheduled related to this admission? No Nursing Interventions Educated patient on importance of making appointment;Advised patient to make appointment Self Management Was Home Health ordered? No Was Durable Medical Equipment (DME) ordered? No Are there psychosocial issues? No (Pts brother is available to help with transportation if [facility] is not available.) Patient Teaching Did the patient receive a copy of their discharge instructions? Yes What is the patient's perception of their health status since discharge? Improving Provided education for complications or exacerbations and when to seek emergent/urgent care? Yes;Patient verbalized understanding Is the patient/cargiver able to teach back the hierarchy of who to call/visit for symptoms/problems? (PCP, Specialist, Home Health Nurse, Urgent Care, ED, 911) Yes Additional Teach Back Comments Patient is doing fine. She has not had any dizziness. She uses [employer] for transportation. She also receives meals on wheels. Patient denies any questions or concerns at this time. RNCM contact information provided. Did the patient feel the follow up calls were helpful during their recovery period? Yes (Pt has no needs at this time.) [facility] Admitted: 07/07/2023 Discharge Date: 07/09/23 PCP Handoff Recommended Outpatient Testing Follow up with neurology Clinical Summary PLAN: - reduce baclofen; can take 2.5mg TID to start if she wants then go to 5mg TID. - stop carbamazepine - continue lamotrigine 200mg daily after discharge. Assessment and Plan Cat Carroll is a 88 y.o. female patient of Claudine Majano MD with history of trigeminal neuralgia, presented to [facility] on 07/07/2023 with difficulty with balance. Difficulty with balance Likely medication related Patient states that she is a difficulty with balance since starting carbamazepine, slowly being weaned off by her outpatient neurologist CT head negative for acute process No focal deficits on exam Discussed with neurology - plan as above Altered mental status - resolved Chart review noted slight confusion in the ED Patient answering questions appropriately Delirium precautions Trigeminal neuralgia Plan as above Stop carbamazepine and restart baclofen and continue Lamictal Chronic lower back pain Continue home methadone dose As needed Tylenol 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 Majano on or before 07/23/23 to meet criteria. Future Appointments Date Time Provider Department Center 08/06/2023 3:40 PM Claudine Majano MD [facility] 08/18/2023 1:00 PM [facility], ECHO 1 [facility] [place] 09/28/2023 10:15 AM Jake Navarro, [facility] 07/18/2024 1:00 PM Claudine Majano MD [facility] documented in this encounter [facility] 07-10-2023 History of Present illness Narrative PATIENT ALREADY HAS [facility] APPT SCHEDULED. WE WILL CHANGE TYPE TO MARISELA 07/10/23 0952 MARISELA General Info Assessment completed with: Patient Post-Discharge Call: Medications Is the patient taking all medications as directed (includes completed medication regime)? Yes Nursing Interventions Nurse provided patient education Medications reviewed with patient/caregiver? Yes Is the patient having any side effects they believe may be caused by any medication additions or changes? No Does the patient have all medications ordered at discharge? Yes Nursing Interventions Nurse provided patient education Appointments Does the patient have a primary care provider? Yes Does the patient have a follow up appointment scheduled related to this admission? No Nursing Interventions Educated patient on importance of making appointment;Advised patient to make appointment Self Management Was Home Health ordered? No Was Durable Medical Equipment (DME) ordered? No Are there psychosocial issues? No (Pts brother is available to help with transportation if [facility] is not available.) Patient Teaching Did the patient receive a copy of their discharge instructions? Yes What is the patient's perception of their health status since discharge? Improving Provided education for complications or exacerbations and when to seek emergent/urgent care? Yes;Patient verbalized understanding Is the patient/cargiver able to teach back the hierarchy of who to call/visit for symptoms/problems? (PCP, Specialist, Home Health Nurse, Urgent Care, ED, 911) Yes Additional Teach Back Comments Patient is doing fine. She has not had any dizziness. She uses [employer] for transportation. She also receives meals on wheels. Patient denies any questions or concerns at this time. RNCM contact information provided. Did the patient feel the follow up calls were helpful during their recovery period? Yes (Pt has no needs at this time.) [facility] Admitted: 07/07/2023 Discharge Date: 07/09/23 PCP Handoff Recommended Outpatient Testing Follow up with neurology Clinical Summary PLAN: - reduce baclofen; can take 2.5mg TID to start if she wants then go to 5mg TID. - stop carbamazepine - continue lamotrigine 200mg daily after discharge. Assessment and Plan Cat Carroll is a 88 y.o. female patient of Claudine Majano MD with history of trigeminal neuralgia, presented to [facility] on 07/07/2023 with difficulty with balance. Difficulty with balance Likely medication related Patient states that she is a difficulty with balance since starting carbamazepine, slowly being weaned off by her outpatient neurologist CT head negative for acute process No focal deficits on exam Discussed with neurology - plan as above Altered mental status - resolved Chart review noted slight confusion in the ED Patient answering questions appropriately Delirium precautions Trigeminal neuralgia Plan as above Stop carbamazepine and restart baclofen and continue Lamictal Chronic lower back pain Continue home methadone dose As needed Tylenol 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 Majano on or before 07/23/23 to meet criteria. Future Appointments Date Time Provider Department Center 08/06/2023 3:40 PM Claudine Majano MD [facility] 08/18/2023 1:00 PM [facility], ECHO 1 [facility] [place] 09/28/2023 10:15 AM Jake Navarro DO [facility] 07/18/2024 1:00 PM Claudnie Majano MD [facility] documented in this encounter [facility] 07-09-2023 Note Formatting of this n ote might be different from the original. Pt seen by [facility]. Reviewed follow up appts with pt who verbalized understanding. Community resources given to pt. Assisted pt to vehicle via WC for DC with family. [facility] 07-09-2023 Miscellaneous Notes Pt seen by [facility]. Reviewed follow up appts with pt who verbalized understanding. Community resources given to pt. Assisted pt to vehicle via WC for DC with family. Reviewed discharge instructions with son: Esvin and pt who both verbalized an understanding of instructions. Problem: Actual or potential alteration in health Goal: Absence of healthcare acquired conditions Outcome: Partially Met Goal: Knowledge of Interdisciplinary Plan of Care Outcome: Partially Met Goal: Knowledge of Enviroment Outcome: Partially Met Problem: Pain Goal: Reduced pain sensation Outcome: Partially Met Goal: Control of acute pain to acceptable level Outcome: Partially Met Goal: Able to cope with pain Outcome: Partially Met Goal: Able to achieve maximum level of physical functioning Outcome: Partially Met Goal: Able to achieve maximum level of psychosocial functioning Outcome: Partially Met Problem: Falls, Risk of Goal: Absence of falls Outcome: Partially Met Goal: Absence of physical injury Outcome: Partially Met Problem: Pressure Injury, Risk of Goal: Absence of pressure injury Outcome: Partially Met Problem: Actual or potential alteration in health Goal: Absence of healthcare acquired conditions Outcome: Partially Met Goal: Knowledge of Interdisciplinary Plan of Care Outcome: Partially Met Goal: Knowledge of Enviroment Outcome: Partially Met Problem: Pain Goal: Reduced pain sensation Outcome: Partially Met Goal: Control of acute pain to acceptable level Outcome: Partially Met Goal: Able to cope with pain Outcome: Partially Met Goal: Able to achieve maximum level of physical functioning Outcome: Partially Met Goal: Able to achieve maximum level of psychosocial functioning Outcome: Partially Met Problem: Falls, Risk of Goal: Absence of falls Outcome: Partially Met Goal: Absence of physical injury Outcome: Partially Met Problem: Pressure Injury, Risk of Goal: Absence of pressure injury Outcome: Partially Met Problem: Actual or potential alteration in health Goal: Absence of healthcare acquired conditions Outcome: Partially Met Goal: Knowledge of Interdisciplinary Plan of Care Outcome: Partially Met Goal: Knowledge of Enviroment Outcome: Partially Met Problem: Pain Goal: Reduced pain sensation Outcome: Partially Met Goal: Control of acute pain to acceptable level Outcome: Partially Met Goal: Able to cope with pain Outcome: Partially Met Goal: Able to achieve maximum level of physical functioning Outcome: Partially Met Goal: Able to achieve maximum level of psychosocial functioning Outcome: Partially Met Problem: Falls, Risk of Goal: Absence of falls Outcome: Partially Met Goal: Absence of physical injury Outcome: Partially Met documented in this encounter [facility] 07-09-2023 Note Formatting of this n ote might be different from the original. Reviewed discharge instructions with son: Esvin and pt who both verbalized an understanding of instructions. [facility] 07-09-2023 Note Formatting of this n ote might be different from the original. Problem: Actual or potential alteration in health Goal: Absence of healthcare acquired conditions Outcome: Partially Met Goal: Knowledge of Interdisciplinary Plan of Care Outcome: Partially Met Goal: Knowledge of Enviroment Outcome: Partially Met Problem: Pain Goal: Reduced pain sensation Outcome: Partially Met Goal: Control of acute pain to acceptable level Outcome: Partially Met Goal: Able to cope with pain Outcome: Partially Met Goal: Able to achieve maximum level of physical functioning Outcome: Partially Met Goal: Able to achieve maximum level of psychosocial functioning Outcome: Partially Met Problem: Falls, Risk of Goal: Absence of falls Outcome: Partially Met Goal: Absence of physical injury Outcome: Partially Met Problem: Pressure Injury, Risk of Goal: Absence of pressure injury Outcome: Partially Met [facility] 07-09-2023 Consult note Associated Order (s): IP CONSULT TO HOME HEALTH HUB Care Management Consult Note Date: 07/09/2023 Time: 1:42 PM Patient Name: Cat Carroll Date of : 1935 Discharge Plan: D/C Disposition: Home Health Care Services Related to Current Admission?: Yes Final D/C Agency/Destination: [facility] (PT and OT services requested) Reason for Choice: Patient/Family preference Discharging Transportation Plan: Transportation Type: Auto (Pt's son to transport to home) Assessment and Background Information: Living Arrangements: Alone Support Systems: Children Assistance Needed: none Type of Residence: Private residence Prior to Admission Home Care Services: Other (Comments) ([facility]) Current Home Equipment: Wheeled walker, Cane, Tub/Shower chair, Adaptive equipment (quad cane and rollator, handicap accessible mobile home with grab bars at commode and shower) Holistic Assessment Medication adherence problem:: No History of falls in last 6 months:: (!) Yes (2) Family aware of the patient's advance care planning wishes:: Yes Do you have any cultural/spiritual connections or beliefs that would impact how we deliver your care?: No Chronic pain:: (!) Yes Location of chronic pain:: low back pain Chronic pain timing:: Intermittent Chronic pain severity:: 4 (current treatment by pain clinic, pain is controlled) Patient does not have any current diagnosis to qualify for home health services. Dizziness is resolving with medication changes. [facility] 07-09-2023 Consult note Associated Order (s): IP CONSULT TO HOME HEALTH HUB Care Management Consult Note Date: 07/09/2023 Time: 1:42 PM Patient Name: Cat Carroll Date of : 1935 Discharge Plan: D/C Disposition: Home Health Care Services Related to Current Admission?: Yes Final D/C Agency/Destination: [facility] (PT and OT services requested) Reason for Choice: Patient/Family preference Discharging Transportation Plan: Transportation Type: Auto (Pt's son to transport to home) Assessment and Background Information: Living Arrangements: Alone Support Systems: Children Assistance Needed: none Type of Residence: Private residence Prior to Admission Home Care Services: Other (Comments) ([facility]) Current Home Equipment: Wheeled walker, Cane, Tub/Shower chair, Adaptive equipment (quad cane and rollator, handicap accessible mobile home with grab bars at commode and shower) Holistic Assessment Medication adherence problem:: No History of falls in last 6 months:: (!) Yes (2) Family aware of the patient's advance care planning wishes:: Yes Do you have any cultural/spiritual connections or beliefs that would impact how we deliver your care?: No Chronic pain:: (!) Yes Location of chronic pain:: low back pain Chronic pain timing:: Intermittent Chronic pain severity:: 4 (current treatment by pain clinic, pain is controlled) Patient does not have any current diagnosis to qualify for home health services. Dizziness is resolving with medication changes. Associated Order(s): IP CONSULT TO NEUROLOGY Neurology Inpatient Consult [facility] Physician [facility] Date of Service: 07/08/23 Admit Date: 07/07/2023 Service Type: New Patient Consultation Patient: Cat Carroll Date of : 1935 (88 y.o.) Referring Provider: Refer to consult order in electronic medical record Assessment ASSESSMENT: Cat Carroll is a 88 y.o. female who presented to [facility] on 07/07/2023 with dizziness and confusion Just restarted on baclofen by myself the day prior. There was some confusion since she was reportedly on it at my last visit but ended up not taking it at some point (I'm not sure when or why that happened) so I told her to resume it when she asked about it on 07/05. She tolerated 20mg TID in the past so I had her start at 10mg TID, assuming she'd probably do OK with a more aggressive starting dose than I might usually use at her age. In retrospect this was probably too aggressive of a start. She was supposed to be weaning off her carbamazepine but her levels are still fairly high at 7.2, the same that it was when she was on the full dose. Not clear if that's because of taking too much or if metabolism has changed over time. Will do fast wean off the carbamazepine since she is symptomatic and levels are still fairly high. She should be on a decent dose of lamotrigine now anyway. Should work with therapy and then probably discharge tomorrow if she does well. Diagnoses: Medication side effect dizziness Admitted with these risk variables:None. Please see assessment and plan for further details. PLAN: - reduce baclofen to 5mg TID, in 1 week can increase back to 10mg TID - stop carbamazepine - continue lamotrigine 200mg daily - lamotrigine level pending - PT/OT - probably OK to go home in next day or so if she does OK with therapy Rocael Mcleod MD Staff Neurologist [facility] [phone], [facility] [id number] Clinic 07/08/23 Parts of this note may have been dictated using Numerate, a speech-recognition software. Syntax errors and sound-alike substitutions which may escape proofreading could be present. In such instances, the actual meaning can be extrapolated from the context. Subjective SUBJECTIVE: Chief Complaint/Reason for Consult: dizziness History of Present Illness: Cat Carroll is a 88 y.o. female who presented on 07/07/2023 for dizziness. Neurology is consulted for the same. Patient of mine with trigeminal neuralgia. She saw me in May and wanted to titrate off carbamazepine because it was affecting her balance. At that point she was reportedly on carbamazepine 200mg BID and baclofen 20mg TID. We opted to titrate off the carbamazepine and add lamotrigine. On 07/05 she called my office asking to go back on baclofen for trigeminal neuralgia pain, which she had told me previously that she was already on - it isn't clear when or why this was stopped so I told her to restart it. Since she previously tolerated 20mg TID, I opted to start at 10mg TID for a week before increasing, assuming she could tolerate a fast ramp up and also assuming she was already almost done with carbamazepine. On 07/06 went to PCP office but fell 3x so was sent to the ER for workup. She feels that she is better today and that all her issues are from the carbamazepine which has always made her dizzy. She is a little confused, more so than usual. Review of systems: All systems were reviewed and found to be negative except for those mentioned in the HPI. 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 She has a past surgical history that includes Egd (01/01/2015); Egd (08/2014); Dilatation And Curettage (D And C) (1969); Hysterectomy (1974); Cholecystectomy; Kidney surgery (1968); Bladder repair (1989); Lumpectomy (Left, 1989); Cyst Removal (Right, 1999); Knee surgery (Left, 1997); Squamous cell carcinoma excision; Fracture surgery (Right); Cataract Ext/Ecce (Bilateral, 2011); Total knee arthroplasty (Left, 2012); Back surgery (2013); Tumor removal (2011); Esophagogastroduodenoscopy (01/04/2018); hc left heart cath (N/A, 08/23/2018); Orif Hip Gamma Nail (Right, 04/02/2020); pr njx dx/ther agt pvrt facet jt lmbr/sac 1 level (Bilateral, 06/18/2023); and pr njx dx/ther agt pvrt facet jt lmbr/sac 1 level (Bilateral, 07/02/2023). She family history includes Bipolar disorder in her daughter; Dementia in her sister; Diabetes in her brother, maternal uncle, mother, sister, and son; Heart disease in her brother, father, and mother; Stroke in her father. She reports that she quit smoking about 47 years ago. Her smoking use included cigarettes. She has never been exposed to tobacco smoke. She has never used smokeless tobacco. She reports that she does not drink alcohol and does not use drugs. Allergies: Allergies: Aspirin; Bacitracin zinc-polymyxin b; Codeine; Gabapentin; Latex, natural rubber; Nisnmkeb-sdxmipguavv-aysnfhppf; Adhesive tape-silicones; Bacitracin; Hydrocortisone; Lidocaine; and Neomycin MEDICATIONS: WERE REVIEWED AND CHECKED FOR ALLERGIES AND INTERACTIONS (IN EMR). Objective OBJECTIVE: Physical Examination: BP 131/69 Pulse 69 Temp 97.9 F (36.6 C) (Oral) Resp 16 Ht 5' 4 Wt 59.6 kg (131 lb 6.7 oz) SpO2 96% BMI 22.56 kg/m GENERAL: General Appearance: In NAD HEENT: Normocephalic. No conjunctival injection. Ears appear normal. No substantial sinus drainage. See below for vision/hearing Neck: Supple, no focal bony tenderness, no mass lesions Respiratory Effort: Normal Extremities: No edema Skin: No rashes visualized MSK: No joint deformities Neurologic Exam: MENTAL STATUS: Alertness, Attention Span & Concentration: awake, alert, pleasant, follows commands, but a little confused. Language: Normal Speech: Normal Orientation: Oriented to person, place, year and day of week but not month (said April) or date. CRANIAL NERVES: II - Visual Leos: Normal II, III: Pupils: PERRL, no RAPD III, IV, : Eye Movements: Normal (EOMI, No ptosis, No nystagmus) V - Facial Sensation: slightly more sensitive on the left face than the right. VII: Face Symmetry & Strength: Normal VIII - Hearing: Normal to finger rub bilaterally IX, X - Palate: Normal, elevates symmetrically XI - Shoulder Shrug: Normal XII - Tongue Protrusion: Normal, symmetric MOTOR: Muscle Strength Right Left 5 Shoulder Abduction (Deltoid) 5 5 Elbow Flexion (Biceps) 5 5 Elbow Extension (Triceps) 5 5 Wrist Flexion 5 5 Wrist Extension 5 5 Finger Abduction (Interossei) 5 Right Left 4 Hip Extension 4 4 Hip Flexion (Iliopsoas) 4 5 Knee Extension (Quads) 5 5 Knee Flexion (Hamstrings) 5 5 Dorsiflexion (Anterior Tibialis) 5 5 Plantar Flexion (Gastrocnemius) 5 MOTOR AVILA: 5 Normal (Normal Power) 4 Mild Weakness (Movement against moderate resistance over a full range of motion) 3 Moderate Weakness (Movement against gravity only over almost full range of motion) 2 Severe Weakness (Movement with gravity eliminated over almost full range of motion) 1 Trace Movement (Contraction visible or palpable without effective movement of the joint) 0 No Movement (No contraction visible or palpable) MARGUERITE Unable to Assess Normal Bulk and Tone, no atrophy. Hips limited by back pain. SENSATION: Fine Touch: Normal Pinprick: Normal REFLEXES: Right Reflexes Left 2+ Biceps 2+ 2+ Triceps 2+ 2+ Brachioradialis 2+ 1+ Patellar 1+ 1+ Achilles 1+ Down Plantar Response (Babinski) Down REFLEXES AVILA: 4+ Sustained Clonus 3+ Brisk 2+ Normal 1+ Diminished 0 Absent MARGUERITE Unable to Assess COORDINATION: Coordination Dciveh-jq-Ojhq: Mild intention tremor bilaterally Cabrera Finger taps: normal Coordination Ggvu-Pdou-Wlso: normal Diadochokinesis: normal STANCE AND GAIT: Base/Stance: Normal/ narrow base Gait: Normal with regards to heel strike, stride length, madhu, turn, and arm swing Gait Aid Used During Exam: None Gait Assistance Required During Exam: None MOVEMENT DISORDERS EXAMINATION: Tremor - no tremors noted Bradykinesia - None Rigidity - None Dyskinesia/Choreoathetosis - None Dystonia/Myoclonus/Tics - None DIAGNOSTIC TESTING SUMMARY: Resulted Testing: (MRI/CT/XR, EEG, EMG, CSF, Cardiac, Labs) Brain MRI/MRA w/o 02/25/19 1. Nonspecific white matter changes may represent small-vessel ischemic disease in a patient of this age. Areas of encephalomalacia in the cerebellum may reflect remote ischemic injury. There is no evidence of acute ischemic injury. 2. Limited evaluation of the posterior fossa due to patient motion on the high-resolution axial T2 weighted images. A flow void does appear to at least abut the inner aspect of the proximal cisternal segment of the left trigeminal nerve. Brain MRA: There are multifocal areas with attenuated flow related signal along the anterior and posterior circulation thought to largely e due to artifact. However, diminished flow can not be excluded. CT head 07/06: no acute findings. Mild white matter disease and atrophy. 07/06 labs: CBZ level 7.2. BMP with Na 142, K 3.4, otherwise normal. CBC with Hgb 10.9, otherwise normal. LFTs normal except GGT 100. Attestation: Discussed risks, benefits and alternatives regarding plan with patient/family/caregivers and answered the questions. I independently reviewed radiology images and summarized in this note with annotations and screenshots wherever appropriate. Time statement: A total of 82 minutes were spent on this encounter either in the patient's room or on the patient's hospital unit and over 50% of that time was spent on [id number] counseling and/or coordination of care. This includes discussions with patient/family as well as with consulting care providers, regarding clinical course, prognosis, treatment alternatives, expected outcomes of medications and their side effects. Physical Therapy PHYSICAL THERAPY EVALUATION Dx: difficulty with balance, altered mental status, trigeminal neuralgia, chronic lower back pain, chronic systolic HF with recovered EF, HTN Skilled Therapy Needs After Discharge Anticipate Resolution of Current Assessment Limitations Including: Mechanical Barriers, Social Support Are Skilled Therapy Services Needed After Discharge: Yes Intensity of Skilled Therapy: 2-3 days per week Anticipated Duration of Skilled Therapy: > 30 days DME Recommendation: [employer] (owns) Rehab Potential: Good Outcomes Measures Prior Function - Basic Mobility Raw Score: 24 Points Prior Function - Basic Mobility % Impaired: 0% AM-PAC Basic Mobility Raw Score: 20 Points AM-PAC Basic Mobility % Impaired: 33.32% Physical Therapy Assessment History: The following factors influence the patient's participation in the PT plan of care: Personal Factors: Limited Baseline Mobility, Apprehensive Toward Mobility, Age, Social Barriers, Body Habitus Environmental Factors: Steps to enter home, Lives alone The following co-morbidities (from this admission or prior) influence the patient's participation in this plan of care: in H&P Number of History elements affecting this patient's PT plan of care: 3 or more Examination of Body Systems: The patient presents with: Musculoskeletal impairments: Strength, Functional Endurance Neurologic Impairments: Balance Cardiopulmonary Impairments: Activity Tolerance. These impairments result in limitations of Gait, Functional Transfers, Stair-Climbing, Safety Awareness, Safety, Activity Tolerance, Insight. These impairments result in restrictions of Household mobility, Community mobility. Number of Body Systems elements affecting this patient's PT plan of care: 3 or more. Clinical Presentation: The patient's clinical presentation for this PT evaluation is evolving with changing characteristics as evidenced by current PT documentation. Activity Tolerance Activity Tolerance: Tolerates 10 - 20 min activity with multiple rests (Activity limited by dizziness with all mobility, did not resolve with rest) Therapy Precautions General Rehab Precautions: Fall risk Strength Assessment Strength RLE RLE Overall Strength: 4/5 Strength LLE LLE Overall Strength: 4/5 Balance Assessment Sitting Balance - Static: Supervision Sitting Balance - Dynamic: Supervision Standing Balance - Static: Contact guard assist Education Dean - Standing Static: wheeled walker Loss of Balance- Standing Static: intermittent Standing Balance - Dynamic: Contact guard assist, Minimal assist Education Dean - Standing Dynamic: wheeled walker Loss of Balance- Standing Dynamic: intermittent Bed Mobility Rolling: Modified independent Supine to Sit: Modified independent Sit to Supine: Modified independent Education Dean: bedrails Transfers Sit to Stand: Contact guard assist, Stand by assist Bed to Chair: Contact guard assist, Stand by assist Education Dean: wheeled walker Gait/Locomotion Gait Assistance: Contact guard assist, Stand by assist Assistive Device: wheeled walker Distance: 25 Feet Pattern: step through, shuffle, decreased madhu (steps per minute) Weight Bearing Status: able to maintain Gait Loss(es) of Balance: intermittent (mild unsteadiness with FWW d/t dizziness) Environment/Terrain: open/community environment, multiple distractions Stair Management Technique: (not assessed d/t ongoing dizziness) Additional Assessment Details Patient in bed with alarm on at end of session. Family present in room, educated patient and family on having someone present with patient upon returning home for safety until dizziness subsides. No increased dizziness with position change or head turns, no nystagmus present throughout session. 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) 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 prior biopsies no dysplasia last biopsies 08/2014 Benign carcinoid tumor of the duodenum 2014 Cancer (HCC) skin cancer-squamous cells removed Chronic kidney disease (CKD), stage III (moderate) (HCC) 09/12/2016 EGFR 43 Fibromyalgia Floating kidney GERD (gastroesophageal reflux disease) 2009 Hypertension 2000 Macular degeneration 2017 Myocardial infarction (HCC) 08/2018 STEMI Osteoporosis 2010 Trigeminal neuralgia of left side of face 2005 Vertigo Vitamin D deficiency 2016 Past Surgical History: Procedure Laterality Date BACK SURGERY 2013 fusion and rods placed in lower back. Rick thompson. Dr Hinds BLADDER REPAIR 1990 CATARACT EXT/ECCE Bilateral 2011 Dr arambula CHOLECYSTECTOMY CYST REMOVAL Right 2000 cyst removal from rt breast-benign DILATION AND CURETTAGE (D AND C) 1970 x 2 EGD 01/01/2015 Dr. AlemanDxpaly-Wichawmma-Rpghngb's esophagus EGD 08/2014 Dr. Vinicius BalderasC-Wjjrxsybm-Ugzihml's esophagitis biopsies negative for dysplasia. ESOPHAGOGASTRODUODENOSCOPY 01/04/2018 Dr. Zavala -biopsies performed-Kelly's esophagitis-carcinoid tumor posterior wall duodenum FRACTURE SURGERY Right Plates and screws in rt arm after fracture. dr Dolan [facility] LEFT HEART CATH N/A 08/23/2018 Procedure: Left Heart Cath; Surgeon: Glne Fair MD; Location: [facility]; Service: Cardiovascular HYSTERECTOMY 1974 KIDNEY SURGERY 1969 had exploratory surgery d/t floating kidney Dx KNEE SURGERY Left 1997 left knee arthoscopy LUMPECTOMY Left 1989 benign ORIF HIP GAMMA NAIL Right 04/02/2020 IN NJX DX/THER AGT PVRT FACET JT LMBR/SAC 1 LEVEL Bilateral 06/18/2023 Procedure: Lumbar medial branch nerve blocks, bilateral lumbar 2-3-4; Surgeon: Jake Navarro DO; Location: Main ID; Service: Pain Management IN NJX DX/THER AGT PVRT FACET JT LMBR/SAC 1 LEVEL Bilateral 07/02/2023 Procedure: Lumbar medial branch nerve blocks, bilateral lumbar 2-3-4; Surgeon: Jake Navarro DO; Location: Main OR; Service: Pain Management SQUAMOUS CELL CARCINOMA EXCISION x4 TOTAL KNEE ARTHROPLASTY Left 2012 dr dolan TUMOR REMOVAL 2011 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 For complete objective data, detailed plan of care and patient education refer to: PT Evaluation flowsheet, PT Evaluation and Treatment flowsheet, PT Treatment flowsheet, patient Plan of Care, Plan of Care progress note, and Patient Education. This note stands as the current Discharge Summary upon patient discharge from the hospital or completion of Physical Therapy Plan. Associated Order(s): IP CONSULT TO CARE MANAGEMENT Care Management Consult Note Date: 07/08/2023 Time: 3:07 PM Patient Name: Cat Carroll Date of : 1935 Reason for Consult: Discharge needs Discharge Plan: Pt declines therapy [facility] services D/C Disposition: Home Reason for Choice: Patient/Family preference Discharging Transportation Plan: Transportation Type: Auto (Pt's son to transport pt to home at discharge) Discharge Plan Status: Pending medical decision making. Assessment and Background Information: CM ASSESSMENT Introduced self to patient and her son at bedside. CM Services explained; pt agreeable to CM assessment. LIVING ARRANGEMENTS: Patient lives alone in one story handicap accessible mobile home . Entry into home has 3 steps, having 2 handrails, which pt can navigate. ADL'S: Performs all primary ADLs independently, i.e., bathing, toileting, continence, dressing, feeding, transfering . Food preparation completed by pt and delivered meal service . Shopping needs obtained by pt's daughter . House keeping performed by pt TRANSPORTATION: Pt drives and does have a working vehicle, transportation assistance provided by pt's son or brother . Pt's son will transport pt home at time of discharge as appropriate. FINANCES: Pt aware this admission insurance coverage is listed as Medicare A/B and [employer] as a secondary insurance. Pt denies transportation, medication or food insecurity. Pt denies any concerns relating to obtaining medications or follow up medical care. DISCHARGE CARE RESOURCES: Pt has Claudine Majano MD as PCP. The patient is not currently receiving home health services.. Pt's son or daughter as teachable medical care evaluation specialist. Pt receives home delivered meals per [facility] on [facility]. VM left for Doreen Thorpe CM with [facility] services. DME: As listed Living Arrangements: Alone Support Systems: Children Assistance Needed: none Type of Residence: Private residence Prior to Admission Home Care Services: Other (Comments) ([facility]) Current Home Equipment: Wheeled walker, Cane, Tub/Shower chair, Adaptive equipment (quad cane and rollator, handicap accessible mobile home with grab bars at commode and shower) Holistic Assessment Medication adherence problem:: No History of falls in last 6 months:: (!) Yes (2) Family aware of the patient's advance care planning wishes:: Yes Do you have any cultural/spiritual connections or beliefs that would impact how we deliver your care?: No Chronic pain:: (!) Yes Location of chronic pain:: low back pain Chronic pain timing:: Intermittent Chronic pain severity:: 4 (current treatment by pain clinic, pain is controlled) CM will continue to follow this visit. 1545 HRS: Received return call from Doreen Thorpe CM from [facility]. She states pt does not receive any services from [facility]. She suggests pt may receive meals from [facility] on Aging. [phone]. VM left for [facility] regarding pt admission and meal service. documented in this encounter [facility] 07-09-2023 History of Present illness Narrative Care Management Progress Note Date: 07/09/2023 Time: 2:38 PM Patient Name: Cat Carroll Date of : 1935 Discharge Plan: D/C Disposition: Home Final D/C Agency/Destination: (PT and OT services requested) Reason for Choice: Patient/Family preference- pt does not qualify Discharging Transportation Plan: Transportation Type: Auto (Pt's son to transport to home) Discharge Plan Status: Pt has discharge order. Assessment and Background Information: Pt had declined [facility] for therapy but has not decided she would like to receive. [facility] consult order placed for PT/OT new services. Pt is agreeable to any [facility] agency within insurance network if [place] if not able to accept pt as this is her first preference. Pt and her son . aware [facility] agency should contact pt to schedule appointment within 24-48 hrs after dc. CM to follow to dc. 1430 HRS: Pt, her son, Dr Howe aware pt is not able to receive insurance covered therapy as per [facility] liaison Dacia Paulson RN, patient does not have any current diagnosis to qualify for home health services. Dizziness is resolving with medication changes. Pt relays understand and aware she may call her PCP if feels she has further needs. Neurology Follow Up Note [facility] Date of Service: 07/09/23 Service Type: Follow up, neurology Patient: Cat Carroll Date of : 1935 (88 y.o.) Assessment ASSESSMENT: Cat Carroll is a 88 y.o. female who presented to [facility] on 07/07/2023 with dizziness and confusion Just restarted on baclofen by myself the day prior. There was some confusion since she was reportedly on it at my last visit but ended up not taking it at some point (I'm not sure when or why that happened) so I told her to resume it when she asked about it on 07/05. She tolerated 20mg TID in the past so I had her start at 10mg TID, assuming she'd probably do OK with a more aggressive starting dose than I might usually use at her age. In retrospect this was probably too aggressive of a start. She was supposed to be weaning off her carbamazepine but her levels are still fairly high at 7.2, the same that it was when she was on the full dose. Not clear if that's because of taking too much or if metabolism has changed over time. OK to stop the carbamazepine, she looks much better today. She should be on a decent dose of lamotrigine now to cover the [place]. Trigeminal neuralgia symptoms are controlled. Keep working with therapy, once stable enough to go home is clear to discharge from my standpoint. Diagnoses: Medication side effect dizziness Admitted with these risk variables:None. Please see assessment and plan for further details. PLAN: - reduce baclofen; can take 2.5mg TID to start if she wants then go to 5mg TID. - stop carbamazepine - continue lamotrigine 200mg daily after discharge. - PT/OT - probably OK to go home today with home therapy - neurology will sign off at this time. However, please do not hesitate to contact us with any questions, concerns, or changes in exam. Rocael Mcleod MD Staff Neurologist [facility] [address] [id number], [facility] [id number] [facility] 07/09/23 Parts of this note may have been dictated using Numerate, a speech-recognition software. Syntax errors and sound-alike substitutions which may escape proofreading could be present. In such instances, the actual meaning can be extrapolated from the context. Subjective SUBJECTIVE: Chief Complaint/Reason for Consult: dizziness History of Present Illness: Cat Carroll is a 88 y.o. female who presented on 07/07/2023 for dizziness. Neurology is consulted for the same. Patient of mine with trigeminal neuralgia. She saw me in May and wanted to titrate off carbamazepine because it was affecting her balance. At that point she was reportedly on carbamazepine 200mg BID and baclofen 20mg TID. We opted to titrate off the carbamazepine and add lamotrigine. On 07/05 she called my office asking to go back on baclofen for trigeminal neuralgia pain, which she had told me previously that she was already on - it isn't clear when or why this was stopped so I told her to restart it. Since she previously tolerated 20mg TID, I opted to start at 10mg TID for a week before increasing, assuming she could tolerate a fast ramp up and also assuming she was already almost done with carbamazepine. On 07/06 went to PCP office but fell 3x so was sent to the ER for workup. She feels that she is better today and that all her issues are from the carbamazepine which has always made her dizzy. She is a little confused, more so than usual. Interval history 07/09/23: Much better today. Just worked with therapy, balance is improved. She is less confused today. Review of systems: All systems were reviewed and found to be negative except for those mentioned in the HPI. 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 She has a past surgical history that includes Egd (01/01/2015); Egd (08/2014); Dilatation And Curettage (D And C) (1969); Hysterectomy (1974); Cholecystectomy; Kidney surgery (1968); Bladder repair (1989); Lumpectomy (Left, 1989); Cyst Removal (Right, 1999); Knee surgery (Left, 1997); Squamous cell carcinoma excision; Fracture surgery (Right); Cataract Ext/Ecce (Bilateral, 2011); Total knee arthroplasty (Left, 2012); Back surgery (2013); Tumor removal (2011); Esophagogastroduodenoscopy (01/04/2018); hc left heart cath (N/A, 08/23/2018); Orif Hip Gamma Nail (Right, 04/02/2020); pr njx dx/ther agt pvrt facet jt lmbr/sac 1 level (Bilateral, 06/18/2023); and pr njx dx/ther agt pvrt facet jt lmbr/sac 1 level (Bilateral, 07/02/2023). She family history includes Bipolar disorder in her daughter; Dementia in her sister; Diabetes in her brother, maternal uncle, mother, sister, and son; Heart disease in her brother, father, and mother; Stroke in her father. She reports that she quit smoking about 47 years ago. Her smoking use included cigarettes. She has never been exposed to tobacco smoke. She has never used smokeless tobacco. She reports that she does not drink alcohol and does not use drugs. Allergies: Allergies: Aspirin; Bacitracin zinc-polymyxin b; Codeine; Gabapentin; Latex, natural rubber; Gfbxikrs-yrjznvpdmco-tieokangr; Adhesive tape-silicones; Bacitracin; Hydrocortisone; Lidocaine; and Neomycin MEDICATIONS: WERE REVIEWED AND CHECKED FOR ALLERGIES AND INTERACTIONS (IN EMR). Objective OBJECTIVE: Physical Examination: BP 130/68 (BP Location: Left arm, Patient Position: Lying) Pulse 68 Temp 98.5 F (36.9 C) (Oral) Resp 16 Ht 5' 4 Wt 59.6 kg (131 lb 6.7 oz) SpO2 94% BMI 22.56 kg/m GENERAL: General Appearance: In NAD HEENT: Normocephalic. No conjunctival injection. Ears appear normal. No substantial sinus drainage. See below for vision/hearing Neck: Supple, no focal bony tenderness, no mass lesions Respiratory Effort: Normal Extremities: No edema Skin: No rashes visualized MSK: No joint deformities Neurologic Exam: MENTAL STATUS: Alertness, Attention Span & Concentration: awake, alert, pleasant, much more clear today and back to baseline Language: Normal Speech: Normal Orientation: Oriented to person, place, month, year, day of week, off by one on the date. CRANIAL NERVES: II - Visual Leos: Normal II, III: Pupils: PERRL, no RAPD III, IV, : Eye Movements: Normal (EOMI, No ptosis, No nystagmus) V - Facial Sensation: slightly more sensitive on the left face than the right. VII: Face Symmetry & Strength: Normal VIII - Hearing: Normal to finger rub bilaterally IX, X - Palate: Normal, elevates symmetrically XI - Shoulder Shrug: Normal XII - Tongue Protrusion: Normal, symmetric MOTOR: Muscle Strength Right Left 5 Shoulder Abduction (Deltoid) 5 5 Elbow Flexion (Biceps) 5 5 Elbow Extension (Triceps) 5 5 Wrist Flexion 5 5 Wrist Extension 5 5 Finger Abduction (Interossei) 5 Right Left 4 Hip Extension 4 4 Hip Flexion (Iliopsoas) 4 5 Knee Extension (Quads) 5 5 Knee Flexion (Hamstrings) 5 5 Dorsiflexion (Anterior Tibialis) 5 5 Plantar Flexion (Gastrocnemius) 5 MOTOR AVILA: 5 Normal (Normal Power) 4 Mild Weakness (Movement against moderate resistance over a full range of motion) 3 Moderate Weakness (Movement against gravity only over almost full range of motion) 2 Severe Weakness (Movement with gravity eliminated over almost full range of motion) 1 Trace Movement (Contraction visible or palpable without effective movement of the joint) 0 No Movement (No contraction visible or palpable) MARGUERITE Unable to Assess Normal Bulk and Tone, no atrophy. Hips limited by back pain. SENSATION: Fine Touch: Normal Pinprick: Normal REFLEXES: Right Reflexes Left 2+ Biceps 2+ 2+ Triceps 2+ 2+ Brachioradialis 2+ 1+ Patellar 1+ 1+ Achilles 1+ Down Plantar Response (Babinski) Down REFLEXES AVILA: 4+ Sustained Clonus 3+ Brisk 2+ Normal 1+ Diminished 0 Absent MARGUERITE Unable to Assess COORDINATION: Coordination Gguauf-nm-Sfhe: Mild intention tremor bilaterally Cabrera Finger taps: normal Coordination Fuyt-Ulqg-Lwjn: normal Diadochokinesis: normal STANCE AND GAIT: Just finished with therapy, deferred repeat gait exam MOVEMENT DISORDERS EXAMINATION: Tremor - no tremors noted Bradykinesia - None Rigidity - None Dyskinesia/Choreoathetosis - None Dystonia/Myoclonus/Tics - None DIAGNOSTIC TESTING SUMMARY: Resulted Testing: (MRI/CT/XR, EEG, EMG, CSF, Cardiac, Labs) Brain MRI/MRA w/o 02/25/19 1. Nonspecific white matter changes may represent small-vessel ischemic disease in a patient of this age. Areas of encephalomalacia in the cerebellum may reflect remote ischemic injury. There is no evidence of acute ischemic injury. 2. Limited evaluation of the posterior fossa due to patient motion on the high-resolution axial T2 weighted images. A flow void does appear to at least abut the inner aspect of the proximal cisternal segment of the left trigeminal nerve. Brain MRA: There are multifocal areas with attenuated flow related signal along the anterior and posterior circulation thought to largely e due to artifact. However, diminished flow can not be excluded. CT head 07/06: no acute findings. Mild white matter disease and atrophy. 07/06 labs: CBZ level 7.2. BMP with Na 142, K 3.4, otherwise normal. CBC with Hgb 10.9, otherwise normal. LFTs normal except GGT 100. Attestation: Discussed risks, benefits and alternatives regarding plan with patient/family/caregivers and answered the questions. I independently reviewed radiology images and summarized in this note with annotations and screenshots wherever appropriate. Time statement: A total of 35 minutes were spent on this encounter either in the patient's room or on the patient's hospital unit and over 50% of that time was spent on rpey-jh-vwps counseling and/or coordination of care. This includes discussions with patient/family as well as with consulting care providers, regarding clinical course, prognosis, treatment alternatives, expected outcomes of medications and their side effects. [facility] [place] Assessment and Plan Cat Carroll is a 88 y.o. female patient of Claudine Majano MD with history of trigeminal neuralgia, presented to [facility] on 07/07/2023 with difficulty with balance. Difficulty with balance Likely medication related Patient states that she is a difficulty with balance since starting carbamazepine, slowly being weaned off by her outpatient neurologist CT head negative for acute process No focal deficits on exam Patient states that she does well with baclofen, disscussed with neueology will resume at 5 tid and increase to 10 tid Pt ot with vestibular therapy Altered mental status - resolved Chart review noted slight confusion in the ED Patient answering questions appropriately Delirium precautions Trigeminal neuralgia Continue carbamazepine wean Chronic lower back pain Continue home methadone dose As needed Tylenol 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6 kg (131 lb 6.7 oz) SpO2 94% BMI 22.56 kg/m Physical Examination General Appearance: alert; well appearing; in no acute distress HEENT: Head- normocephalic; Eyes- EOMI, sclera anicteric; Throat- mucous membranes moist Cardiovascular: regular rate and rhythm; normal S1, S2; no murmurs, rubs, clicks or gallops; peripheral edema absent Respiratory: lungs clear to auscultation; without wheezes, rales or rhonchi; on room air Abdomen: soft, non-tender, non-distended Neurological: oriented x 3; normal speech; no focal findings or movement disorder noted Musculoskeletal: no significant deformity or tenderness to palpation Skin: normal coloration Psych: normal mood and affect Nutrition Care Initial Assessment Reason for visit: Nursing Referral for Unplanned weight loss 10 pounds or more in the past month Nutrition Diagnosis: Inadequate Energy Intake related to inability to consume sufficient energy as evidenced by patient reports weight loss. Nutrition Intervention Continue meals ONS: patient refuses these Nutrition Prescription: Diet:Continue Cardiac Nutrition Goals: Tolerate diet with PO intakes >75% most meals Start Date:07/08/2023 Expected End Date:07/14/2023 Nutrition Education: No needs at this time Assessment: Pertinent clinical information: difficulty with balance 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 prior biopsies no dysplasia last biopsies 08/2014 Benign carcinoid tumor of the duodenum 2014 Cancer (HCC) skin cancer-squamous cells removed Chronic kidney disease (CKD), stage III (moderate) (HCC) 09/12/2016 EGFR 43 Fibromyalgia Floating kidney GERD (gastroesophageal reflux disease) 2009 Hypertension 1999 Macular degeneration 2017 Myocardial infarction ([facility]) 08/2018 STEMI Osteoporosis 2010 Trigeminal neuralgia of left side of face 2004 Vertigo Vitamin D deficiency 2015 Past Surgical History: Procedure Laterality Date BACK SURGERY 2013 fusion and rods placed in lower back. Rick thompson. Dr Hinds BLADDER REPAIR 1989 CATARACT EXT/ECCE Bilateral 2011 Dr arambula CHOLECYSTECTOMY CYST REMOVAL Right 1999 cyst removal from rt breast-benign DILATION AND CURETTAGE (D AND C) 1970 x 2 EGD 01/01/2015 Dr. ZavalaWygmtj-Krkjbbjpq-Jxqvcqw's esophagus EGD 08/2014 Dr. Vinicius Pruett-Barrett's esophagitis biopsies negative for dysplasia. ESOPHAGOGASTRODUODENOSCOPY 01/04/2018 Dr. Zavala -biopsies performed-Kelly's esophagitis-carcinoid tumor posterior wall duodenum FRACTURE SURGERY Right Plates and screws in rt arm after fracture. dr Dolan LEFT HEART CATH N/A 08/23/2018 Procedure: Left Heart Cath; Surgeon: Glen Fair MD; Location: CUSTODIAN; Service: Cardiovascular HYSTERECTOMY 1975 KIDNEY SURGERY 1969 had exploratory surgery d/t floating kidney Dx KNEE SURGERY Left 1997 left knee arthoscopy LUMPECTOMY Left 1989 benign ORIF HIP GAMMA NAIL Right 04/02/2020 IN NJX DX/THER AGT PVRT FACET JT LMBR/SAC 1 LEVEL Bilateral 06/18/2023 Procedure: Lumbar medial branch nerve blocks, bilateral lumbar 2-3-4; Surgeon: Jake Navarro DO; Location: Main OR; Service: Pain Management IN NJX DX/THER AGT PVRT FACET JT LMBR/SAC 1 LEVEL Bilateral 07/02/2023 Procedure: Lumbar medial branch nerve blocks, bilateral lumbar 2-3-4; Surgeon: Jake Navarro DO; Location: Main OR; Service: Pain Management SQUAMOUS CELL CARCINOMA EXCISION x4 TOTAL KNEE ARTHROPLASTY Left 2013 dr dolan TUMOR REMOVAL 2012 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 Height: 5' 4 Current weight: 59.6 kg (131 lb 6.7 oz) BMI Body mass index is 22.56 kg/m . Weight hx: stable Wt Readings from Last 10 Encounters: 07/07/23 59.6 kg (131 lb 6.7 oz) 07/07/23 64 kg (141 lb) 07/07/23 60.3 kg (133 lb) 07/02/23 59.4 kg (131 lb) 06/26/23 59.4 kg (131 lb) 06/18/23 59 kg (130 lb) 05/20/23 59.4 kg (130 lb 14.4 oz) 05/11/23 60.3 kg (133 lb) 04/22/23 56.9 kg (125 lb 6.4 oz) 03/04/23 57.2 kg (126 lb) Significant Weight Change: No Current diet order: Diet: Cardiac Recent intake: poor Current intake likely does not meet estimated needs Barriers to adequate p.o. intakes: Poor appetite Nutrition Related Allergies/Intolerances: No Nutrition Related Allergies noted Cultural or Presybeterian Dietary Needs :No Cultural or Presybeterian Dietary needs noted Patient/family comments: patient reports she is not hungry, does not want Boost supplements, states she has lost weight, but appears stable per hospital records Difficulty Chewing or Swallowing: No Skin Integrity: Intact GI Function: WDL Fluid Status: WNL Physical Appearance: No signs and symptoms of malnutrition noted Labs: Recent Labs 07/08/23 0631 NA 142 K 3.4* BICARB 27 CL 105 GLUCOSE 93 BUN 17 CREATININE 0.81 Recent Labs 07/08/23 0631 GLUCOSE 93 Lab Results Component Value Date HGBA1C 5.4 10/24/2022 Home Medications Reviewed: Yes Scheduled Meds: atorvastatin 40 mg Oral Nightly baclofen 5 mg Oral TID cefTRIAXone (ROCEPHIN) IVPB 1,000 mg Intravenous Q24H DULoxetine 60 mg Oral at bedtime enoxaparin (LOVENOX) injection 40 mg Subcutaneous Daily furosemide 20 mg Oral BID lamoTRIgine 200 mg Oral Daily losartan 50 mg Oral Daily methadone 5 mg Oral BID metoprolol succinate 50 mg Oral at bedtime sodium chloride (PF) 5 mL Intravenous Q8H DIYA spironolactone 25 mg Oral Daily Continuous Infusions: sodium chloride 0.9 % Nutrient Depleting Medications: Loop Diuretics Estimated Energy Needs Total Energy Estimated Needs: 9968-0259 kcal Method for Estimating Needs: @ 25-28 kcal/kg Total Protein Estimated Needs: 60 gm Method for Estimating Needs: @ 1 gm/kg Jeri Fischer RD Office [phone] documented in this encounter [facility] 07-09-2023 Hospital course Narrative Images from the original note were not included. [facility] [place] -- [facility] Cat Carroll Admitted: 07/07/2023 Discharge Date: 07/09/23 PCP Handoff Recommended Outpatient Testing Follow up with neurology Results Pending At Discharge none Clinical Summary PLAN: - reduce baclofen; can take 2.5mg TID to start if she wants then go to 5mg TID. - stop carbamazepine - continue lamotrigine 200mg daily after discharge. Assessment and Plan Cat Carroll is a 88 y.o. female patient of Claudine Majano MD with history of trigeminal neuralgia, presented to [facility] on 07/07/2023 with difficulty with balance. Difficulty with balance Likely medication related Patient states that she is a difficulty with balance since starting carbamazepine, slowly being weaned off by her outpatient neurologist CT head negative for acute process No focal deficits on exam Discussed with neurology - plan as above Altered mental status - resolved Chart review noted slight confusion in the ED Patient answering questions appropriately Delirium precautions Trigeminal neuralgia Plan as above Stop carbamazipime and restart balcofen and continue lamictal Chronic lower back pain Continue home methadone dose As needed Tylenol 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 Quantity: 90 tablet lamoTRIgine 200 MG tablet Commonly known as: LAMICTAL Start taking on: July 10, 2023 What changed: medication strength how much to take how to take this when to take this additional instructions Take 1 (one) tablet (200 mg total) by mouth daily Start: 07/10/23. Quantity: 30 tablet Medications To Continue Details atorvastatin 40 MG tablet Commonly known as: LIPITOR Take 1 (one) tablet (40 mg total) by mouth nightly . Quantity: 90 tablet CENTRUM SILVER WOMEN ORAL Take 1 tablet by mouth daily. colestipoL 1 gram tablet Commonly known as: COLESTID D-MANNOSE ORAL diphenhydrAMINE-acetaminophen 25-500 mg Tab Commonly known as: TYLENOL PM Take 2 (two) tablets by mouth nightly as needed . DULoxetine 60 MG capsule Commonly known as: CYMBALTA Take 1 (one) capsule (60 mg total) by mouth at bedtime . Quantity: 90 capsule ECOTRIN ORAL Take by mouth . estradioL 0.01 % (0.1 mg/gram) vaginal cream Commonly known as: ESTRACE Insert 2 (two) g into the vagina daily . Quantity: 42.5 g furosemide 20 MG tablet Commonly known as: LASIX Take 1 (one) tablet (20 mg total) by mouth 2 (two) times a day . Quantity: 180 tablet Gemtesa 75 mg Tab Generic drug: vibegron Take by mouth . losartan 50 MG tablet Commonly known as: Cozaar Take 1 (one) tablet (50 mg total) by mouth daily . Quantity: 90 tablet * methadone 5 MG tablet Commonly known as: DOLOPHINE Take 1 (one) tablet (5 mg total) by mouth 2 (two) times a day (Days supply per fill: 30) Start: 07/04/23. Quantity: 60 tablet * methadone 5 MG tablet Commonly known as: DOLOPHINE Start taking on: August 01, 2023 Take 1 (one) tablet (5 mg total) by mouth 2 (two) times a day (Days supply per fill: 30) Start: 08/01/23. Quantity: 60 tablet * methadone 5 MG tablet Commonly known as: DOLOPHINE Start taking on: August 30, 2023 Take 1 (one) tablet (5 mg total) by mouth 2 (two) times a day (Days supply per fill: 30) Start: 08/30/23. Quantity: 60 tablet metoprolol succinate 50 MG 24 hr tablet Commonly known as: TOPROL-XL Take 1 (one) tablet (50 mg total) by mouth at bedtime . Quantity: 90 tablet naloxone 4 mg/actuation Amanda Commonly known as: NARCAN Administer 1 spray into one nostril for known or suspected opioid overdose. If patient worsens or does not respond, may repeat in 2-3 minutes. . Quantity: 2 each nitroGLYCERIN 0.4 MG SL tablet Commonly known as: NITROSTAT Place 1 (one) tablet (0.4 mg total) under the tongue every 5 (five) minutes as needed for chest pain , if no relief after 3 doses call 911 . Quantity: 25 tablet spironolactone 25 MG tablet Commonly known as: ALDACTONE Take 1 (one) tablet (25 mg total) by mouth daily . Quantity: 90 tablet UNIV COMP RX: AMITRIPTYLINE 2%, BACLOFEN 2%, GABAPENTIN 5%, LIDOCAINE 5% EMOLLIENT CREAM Apply 0.5 g topically 3 (three) times a day as needed . Quantity: 30 g * There are duplicate medications prescribed to the patient Stopped Medications carBAMazepine 200 mg tablet Commonly known as: TEGRETOL Physician(s) Follow Up: No follow-up provider specified. Condition at Discharge: Stable Disposition: Home with Home Health I reviewed discharge recommendations with the patient in person. Patient instructions, including activity, were given to the patient/family at discharge. On day of discharge I saw Cat Carroll and spent: > 30 minutes on discharge. Completed by: Maria T Howe MD on 07/09/23, 12:44 PM documented in this encounter [facility] 07-09-2023 Hospital Discharge instructions Maria T Howe MD - 07/09/2023 12:41 PM EDT PLAN: - reduce baclofen; can take 2.5mg three times a day to start if she wants then go to 5mg three times a day. - stop carbamazepine - continue lamotrigine 200mg daily after discharge. documented in this encounter [facility] 07-09-2023 Note Formatting of this n ote might be different from the original. Problem: Actual or potential alteration in health Goal: Absence of healthcare acquired conditions Outcome: Partially Met Goal: Knowledge of Interdisciplinary Plan of Care Outcome: Partially Met Goal: Knowledge of Enviroment Outcome: Partially Met Problem: Pain Goal: Reduced pain sensation Outcome: Partially Met Goal: Control of acute pain to acceptable level Outcome: Partially Met Goal: Able to cope with pain Outcome: Partially Met Goal: Able to achieve maximum level of physical functioning Outcome: Partially Met Goal: Able to achieve maximum level of psychosocial functioning Outcome: Partially Met Problem: Falls, Risk of Goal: Absence of falls Outcome: Partially Met Goal: Absence of physical injury Outcome: Partially Met Problem: Pressure Injury, Risk of Goal: Absence of pressure injury Outcome: Partially Met [facility] 07-08-2023 Consult note Associated Order (s): IP CONSULT TO NEUROLOGY Neurology Inpatient Consult [facility] Date of Service: 07/08/23 Admit Date: 07/07/2023 Service Type: New Patient Consultation Patient: Cat Carroll Date of : 1935 (88 y.o.) Referring Provider: Refer to consult order in electronic medical record Assessment ASSESSMENT: Cat Carroll is a 88 y.o. female who presented to [facility] on 07/07/2023 with dizziness and confusion Just restarted on baclofen by myself the day prior. There was some confusion since she was reportedly on it at my last visit but ended up not taking it at some point (I'm not sure when or why that happened) so I told her to resume it when she asked about it on 07/05. She tolerated 20mg TID in the past so I had her start at 10mg TID, assuming she'd probably do OK with a more aggressive starting dose than I might usually use at her age. In retrospect this was probably too aggressive of a start. She was supposed to be weaning off her carbamazepine but her levels are still fairly high at 7.2, the same that it was when she was on the full dose. Not clear if that's because of taking too much or if metabolism has changed over time. Will do fast wean off the carbamazepine since she is symptomatic and levels are still fairly high. She should be on a decent dose of lamotrigine now anyway. Should work with therapy and then probably discharge tomorrow if she does well. Diagnoses: Medication side effect dizziness Admitted with these risk variables:None. Please see assessment and plan for further details. PLAN: - reduce baclofen to 5mg TID, in 1 week can increase back to 10mg TID - stop carbamazepine - continue lamotrigine 200mg daily - lamotrigine level pending - PT/OT - probably OK to go home in next day or so if she does OK with therapy Rocael Mcleod MD Staff Neurologist [facility] [address], [id number], [facility] [id number] Clinic 07/08/23 Parts of this note may have been dictated using Numerate, a speech-recognition software. Syntax errors and sound-alike substitutions which may escape proofreading could be present. In such instances, the actual meaning can be extrapolated from the context. Subjective SUBJECTIVE: Chief Complaint/Reason for Consult: dizziness History of Present Illness: Cat Carroll is a 88 y.o. female who presented on 07/07/2023 for dizziness. Neurology is consulted for the same. Patient of [facility] with trigeminal neuralgia. She saw me in May and wanted to titrate off carbamazepine because it was affecting her balance. At that point she was reportedly on carbamazepine 200mg BID and baclofen 20mg TID. We opted to titrate off the carbamazepine and add lamotrigine. On 07/05 she called my office asking to go back on baclofen for trigeminal neuralgia pain, which she had told me previously that she was already on - it isn't clear when or why this was stopped so I told her to restart it. Since she previously tolerated 20mg TID, I opted to start at 10mg TID for a week before increasing, assuming she could tolerate a fast ramp up and also assuming she was already almost done with carbamazepine. On 07/06 went to PCP office but fell 3x so was sent to the ER for workup. She feels that she is better today and that all her issues are from the carbamazepine which has always made her dizzy. She is a little confused, more so than usual. Review of systems: All systems were reviewed and found to be negative except for those mentioned in the HPI. 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 She has a past surgical history that includes Egd (01/01/2015); Egd (08/2014); Dilatation And Curettage (D And C) (1969); Hysterectomy (1974); Cholecystectomy; Kidney surgery (1968); Bladder repair (1989); Lumpectomy (Left, 1989); Cyst Removal (Right, 1999); Knee surgery (Left, 1997); Squamous cell carcinoma excision; Fracture surgery (Right); Cataract Ext/Ecce (Bilateral, 2011); Total knee arthroplasty (Left, 2012); Back surgery (2013); Tumor removal (2011); Esophagogastroduodenoscopy (01/04/2018); hc left heart cath (N/A, 08/23/2018); Orif Hip Gamma Nail (Right, 04/02/2020); pr njx dx/ther agt pvrt facet jt lmbr/sac 1 level (Bilateral, 06/18/2023); and pr njx dx/ther agt pvrt facet jt lmbr/sac 1 level (Bilateral, 07/02/2023). She family history includes Bipolar disorder in her daughter; Dementia in her sister; Diabetes in her brother, maternal uncle, mother, sister, and son; Heart disease in her brother, father, and mother; Stroke in her father. She reports that she quit smoking about 47 years ago. Her smoking use included cigarettes. She has never been exposed to tobacco smoke. She has never used smokeless tobacco. She reports that she does not drink alcohol and does not use drugs. Allergies: Allergies: Aspirin; Bacitracin zinc-polymyxin b; Codeine; Gabapentin; Latex, natural rubber; Hqvvpjkh-mxvwuuovfbv-cyevtchti; Adhesive tape-silicones; Bacitracin; Hydrocortisone; Lidocaine; and Neomycin MEDICATIONS: WERE REVIEWED AND CHECKED FOR ALLERGIES AND INTERACTIONS (IN EMR). Objective OBJECTIVE: Physical Examination: BP 131/69 Pulse 69 Temp 97.9 F (36.6 C) (Oral) Resp 16 Ht 5' 4 Wt 59.6 kg (131 lb 6.7 oz) SpO2 96% BMI 22.56 kg/m GENERAL: General Appearance: In NAD HEENT: Normocephalic. No conjunctival injection. Ears appear normal. No substantial sinus drainage. See below for vision/hearing Neck: Supple, no focal bony tenderness, no mass lesions Respiratory Effort: Normal Extremities: No edema Skin: No rashes visualized MSK: No joint deformities Neurologic Exam: MENTAL STATUS: Alertness, Attention Span & Concentration: awake, alert, pleasant, follows commands, but a little confused. Language: Normal Speech: Normal Orientation: Oriented to person, place, year and day of week but not month (said April) or date. CRANIAL NERVES: II - Visual Leos: Normal II, III: Pupils: PERRL, no RAPD III, IV, : Eye Movements: Normal (EOMI, No ptosis, No nystagmus) V - Facial Sensation: slightly more sensitive on the left face than the right. VII: Face Symmetry & Strength: Normal VIII - Hearing: Normal to finger rub bilaterally IX, X - Palate: Normal, elevates symmetrically XI - Shoulder Shrug: Normal XII - Tongue Protrusion: Normal, symmetric MOTOR: Muscle Strength Right Left 5 Shoulder Abduction (Deltoid) 5 5 Elbow Flexion (Biceps) 5 5 Elbow Extension (Triceps) 5 5 Wrist Flexion 5 5 Wrist Extension 5 5 Finger Abduction (Interossei) 5 Right Left 4 Hip Extension 4 4 Hip Flexion (Iliopsoas) 4 5 Knee Extension (Quads) 5 5 Knee Flexion (Hamstrings) 5 5 Dorsiflexion (Anterior Tibialis) 5 5 Plantar Flexion (Gastrocnemius) 5 MOTOR AVILA: 5 Normal (Normal Power) 4 Mild Weakness (Movement against moderate resistance over a full range of motion) 3 Moderate Weakness (Movement against gravity only over almost full range of motion) 2 Severe Weakness (Movement with gravity eliminated over almost full range of motion) 1 Trace Movement (Contraction visible or palpable without effective movement of the joint) 0 No Movement (No contraction visible or palpable) MARGUERITE Unable to Assess Normal Bulk and Tone, no atrophy. Hips limited by back pain. SENSATION: Fine Touch: Normal Pinprick: Normal REFLEXES: Right Reflexes Left 2+ Biceps 2+ 2+ Triceps 2+ 2+ Brachioradialis 2+ 1+ Patellar 1+ 1+ Achilles 1+ Down Plantar Response (Babinski) Down REFLEXES AVILA: 4+ Sustained Clonus 3+ Brisk 2+ Normal 1+ Diminished 0 Absent MARGUERITE Unable to Assess COORDINATION: Coordination Xdwnmu-rj-Apxp: Mild intention tremor bilaterally Cabrera Finger taps: normal Coordination Dkxc-Nodc-Cbcs: normal Diadochokinesis: normal STANCE AND GAIT: Base/Stance: Normal/ narrow base Gait: Normal with regards to heel strike, stride length, madhu, turn, and arm swing Gait Aid Used During Exam: None Gait Assistance Required During Exam: None MOVEMENT DISORDERS EXAMINATION: Tremor - no tremors noted Bradykinesia - None Rigidity - None Dyskinesia/Choreoathetosis - None Dystonia/Myoclonus/Tics - None DIAGNOSTIC TESTING SUMMARY: Resulted Testing: (MRI/CT/XR, EEG, EMG, CSF, Cardiac, Labs) Brain MRI/MRA w/o 02/25/19 1. Nonspecific white matter changes may represent small-vessel ischemic disease in a patient of this age. Areas of encephalomalacia in the cerebellum may reflect remote ischemic injury. There is no evidence of acute ischemic injury. 2. Limited evaluation of the posterior fossa due to patient motion on the high-resolution axial T2 weighted images. A flow void does appear to at least abut the inner aspect of the proximal cisternal segment of the left trigeminal nerve. Brain MRA: There are multifocal areas with attenuated flow related signal along the anterior and posterior circulation thought to largely e due to artifact. However, diminished flow can not be excluded. CT head 07/06: no acute findings. Mild white matter disease and atrophy. 07/06 labs: CBZ level 7.2. BMP with Na 142, K 3.4, otherwise normal. CBC with Hgb 10.9, otherwise normal. LFTs normal except GGT 100. Attestation: Discussed risks, benefits and alternatives regarding plan with patient/family/caregivers and answered the questions. I independently reviewed radiology images and summarized in this note with annotations and screenshots wherever appropriate. Time statement: A total of 82 minutes were spent on this encounter either in the patient's room or on the patient's hospital unit and over 50% of that time was spent on taep-rz-vtut counseling and/or coordination of care. This includes discussions with patient/family as well as with consulting care providers, regarding clinical course, prognosis, treatment alternatives, expected outcomes of medications and their side effects. [facility] 07-08-2023 Consult note Formatting of th is note is different from the original. Physical Therapy PHYSICAL THERAPY EVALUATION Dx: difficulty with balance, altered mental status, trigeminal neuralgia, chronic lower back pain, chronic systolic HF with recovered EF, HTN Skilled Therapy Needs After Discharge Anticipate Resolution of Current Assessment Limitations Including: Mechanical Barriers, Social Support Are Skilled Therapy Services Needed After Discharge: Yes Intensity of Skilled Therapy: 2-3 days per week Anticipated Duration of Skilled Therapy: > 30 days DME Recommendation: Rollator (owns) Rehab Potential: Good Outcomes Measures Prior Function - Basic Mobility Raw Score: 24 Points Prior Function - Basic Mobility % Impaired: 0% AM-PAC Basic Mobility Raw Score: 20 Points AM-PAC Basic Mobility % Impaired: 33.32% Physical Therapy Assessment History: The following factors influence the patient's participation in the PT plan of care: Personal Factors: Limited Baseline Mobility, Apprehensive Toward Mobility, Age, Social Barriers, Body Habitus Environmental Factors: Steps to enter home, Lives alone The following co-morbidities (from this admission or prior) influence the patient's participation in this plan of care: in H&P Number of History elements affecting this patient's PT plan of care: 3 or more Examination of Body Systems: The patient presents with: Musculoskeletal impairments: Strength, Functional Endurance Neurologic Impairments: Balance Cardiopulmonary Impairments: Activity Tolerance. These impairments result in limitations of Gait, Functional Transfers, Stair-Climbing, Safety Awareness, Safety, Activity Tolerance, Insight. These impairments result in restrictions of Household mobility, Community mobility. Number of Body Systems elements affecting this patient's PT plan of care: 3 or more. Clinical Presentation: The patient's clinical presentation for this PT evaluation is evolving with changing characteristics as evidenced by current PT documentation. Activity Tolerance Activity Tolerance: Tolerates 10 - 20 min activity with multiple rests (Activity limited by dizziness with all mobility, did not resolve with rest) Therapy Precautions General Rehab Precautions: Fall risk Strength Assessment Strength RLE RLE Overall Strength: 4/5 Strength LLE LLE Overall Strength: 4/5 Balance Assessment Sitting Balance - Static: Supervision Sitting Balance - Dynamic: Supervision Standing Balance - Static: Contact guard assist Education Dean - Standing Static: wheeled walker Loss of Balance- Standing Static: intermittent Standing Balance - Dynamic: Contact guard assist, Minimal assist Education Dean - Standing Dynamic: wheeled walker Loss of Balance- Standing Dynamic: intermittent Bed Mobility Rolling: Modified independent Supine to Sit: Modified independent Sit to Supine: Modified independent Education Dean: bedrails Transfers Sit to Stand: Contact guard assist, Stand by assist Bed to Chair: Contact guard assist, Stand by assist Education Dean: wheeled walker Gait/Locomotion Gait Assistance: Contact guard assist, Stand by assist Assistive Device: wheeled walker Distance: 25 Feet Pattern: step through, shuffle, decreased madhu (steps per minute) Weight Bearing Status: able to maintain Gait Loss(es) of Balance: intermittent (mild unsteadiness with FWW d/t dizziness) Environment/Terrain: open/community environment, multiple distractions Stair Management Technique: (not assessed d/t ongoing dizziness) Additional Assessment Details Patient in bed with alarm on at end of session. Family present in room, educated patient and family on having someone present with patient upon returning home for safety until dizziness subsides. No increased dizziness with position change or head turns, no nystagmus present throughout session. 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) 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 prior biopsies no dysplasia last biopsies 08/2014 Benign carcinoid tumor of the duodenum 2014 Cancer (HCC) skin cancer-squamous cells removed Chronic kidney disease (CKD), stage III (moderate) (HCC) 09/12/2016 EGFR 43 Fibromyalgia Floating kidney GERD (gastroesophageal reflux disease) 2009 Hypertension 1999 Macular degeneration 2017 Myocardial infarction ([facility]) 08/2018 STEMI Osteoporosis 2010 Trigeminal neuralgia of left side of face 2004 Vertigo Vitamin D deficiency 2015 Past Surgical History: Procedure Laterality Date BACK SURGERY 2013 fusion and rods placed in lower back. Cabrera donna. Dr Hinds BLADDER REPAIR 1989 CATARACT EXT/ECCE Bilateral 2011 Dr arambula CHOLECYSTECTOMY CYST REMOVAL Right 2000 cyst removal from rt breast-benign DILATION AND CURETTAGE (D AND C) 1970 x 2 EGD 01/01/2015 Dr. ZavalaFkucdh-Jpvklapcg-Nvynjxa's esophagus EGD 08/2014 Dr. Vinicius Pruett-Barrett's esophagitis biopsies negative for dysplasia. ESOPHAGOGASTRODUODENOSCOPY 01/04/2018 Dr. Zavala -biopsies performed-Kelly's esophagitis-carcinoid tumor posterior wall duodenum FRACTURE SURGERY Right Plates and screws in rt arm after fracture. dr Dolan LEFT HEART CATH N/A 08/23/2018 Procedure: Left Heart Cath; Surgeon: Glen Fair MD; Location: [facility]; Service: Cardiovascular HYSTERECTOMY 1974 KIDNEY SURGERY 1968 had exploratory surgery d/t floating kidney Dx KNEE SURGERY Left 1997 left knee arthoscopy LUMPECTOMY Left 1989 benign ORIF HIP GAMMA NAIL Right 04/02/2020 IN NJX DX/THER AGT PVRT FACET JT LMBR/SAC 1 LEVEL Bilateral 06/18/2023 Procedure: Lumbar medial branch nerve blocks, bilateral lumbar 2-3-4; Surgeon: Jake Navarro DO; Location: Main OR; Service: Pain Management IN NJX DX/THER AGT PVRT FACET JT LMBR/SAC 1 LEVEL Bilateral 07/02/2023 Procedure: Lumbar medial branch nerve blocks, bilateral lumbar 2-3-4; Surgeon: Jake Navarro DO; Location: Main OR; Service: Pain Management SQUAMOUS CELL CARCINOMA EXCISION x4 TOTAL KNEE ARTHROPLASTY Left 2013 dr dolan TUMOR REMOVAL 2011 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 For complete objective data, detailed plan of care and patient education refer to: PT Evaluation flowsheet, PT Evaluation and Treatment flowsheet, PT Treatment flowsheet, patient Plan of Care, Plan of Care progress note, and Patient Education. This note stands as the current Discharge Summary upon patient discharge from the hospital or completion of Physical Therapy Plan. [facility] 07-08-2023 Consult note Associated Order (s): IP CONSULT TO CARE MANAGEMENT Care Management Consult Note Date: 07/08/2023 Time: 3:07 PM Patient Name: Cat Carroll Date of : 1935 Reason for Consult: Discharge needs Discharge Plan: Pt declines therapy [facility] services D/C Disposition: Home Reason for Choice: Patient/Family preference Discharging Transportation Plan: Transportation Type: Auto (Pt's son to transport pt to home at discharge) Discharge Plan Status: Pending medical decision making. Assessment and Background Information: CM ASSESSMENT Introduced self to patient and her son at bedside. CM Services explained; pt agreeable to CM assessment. LIVING ARRANGEMENTS: Patient lives alone in one story handicap accessible mobile home . Entry into home has 3 steps, having 2 handrails, which pt can navigate. ADL'S: Performs all primary ADLs independently, i.e., bathing, toileting, continence, dressing, feeding, transfering . Food preparation completed by pt and delivered meal service . Shopping needs obtained by pt's daughter . House keeping performed by pt TRANSPORTATION: Pt drives and does have a working vehicle, transportation assistance provided by pt's son or brother . Pt's son will transport pt home at time of discharge as appropriate. FINANCES: Pt aware this admission insurance coverage is listed as Medicare A/B and [employer] as a secondary insurance. Pt denies transportation, medication or food insecurity. Pt denies any concerns relating to obtaining medications or follow up medical care. DISCHARGE CARE RESOURCES: Pt has Claudine Majano MD as PCP. The patient is not currently receiving home health services.. Pt's son or daughter as teachable medical care evaluation specialist. Pt receives home delivered meals per [facility]. left for Doreen Thorpe CM with [facility] services. DME: As listed Living Arrangements: Alone Support Systems: Children Assistance Needed: none Type of Residence: Private residence Prior to Admission Home Care Services: Other (Comments) ([facility]) Current Home Equipment: Wheeled walker, Cane, Tub/Shower chair, Adaptive equipment (quad cane and rollator, handicap accessible mobile home with grab bars at commode and shower) Holistic Assessment Medication adherence problem:: No History of falls in last 6 months:: (!) Yes (2) Family aware of the patient's advance care planning wishes:: Yes Do you have any cultural/spiritual connections or beliefs that would impact how we deliver your care?: No Chronic pain:: (!) Yes Location of chronic pain:: low back pain Chronic pain timing:: Intermittent Chronic pain severity:: 4 (current treatment by pain clinic, pain is controlled) CM will continue to follow this visit. 1545 HRS: Received return call from Doreen Thorpe CM from [facility]. She states pt does not receive any services from [facility]. She suggests pt may receive meals from [facility] on Aging. [phone]. left for [facility] regarding pt admission and meal service. [facility] 07-08-2023 Note Formatting of this n ote might be different from the original. Problem: Actual or potential alteration in health Goal: Absence of healthcare acquired conditions Outcome: Partially Met Goal: Knowledge of Interdisciplinary Plan of Care Outcome: Partially Met Goal: Knowledge of Enviroment Outcome: Partially Met Problem: Pain Goal: Reduced pain sensation Outcome: Partially Met Goal: Control of acute pain to acceptable level Outcome: Partially Met Goal: Able to cope with pain Outcome: Partially Met Goal: Able to achieve maximum level of physical functioning Outcome: Partially Met Goal: Able to achieve maximum level of psychosocial functioning Outcome: Partially Met Problem: Falls, Risk of Goal: Absence of falls Outcome: Partially Met Goal: Absence of physical injury Outcome: Partially Met [facility] 07-07-2023 History and physical note [facility] Patient Name: Cat Carroll : 1935 MR #: [id number] Admit Date: 07/07/2023 Physicians: Claudine Majano MD (Family); Steve Mayo,* (Referring) Cat Carroll is a 88 y.o. female patient of Claudine Majano MD with history of trigeminal neuralgia, presented to [facility] on 07/07/2023 with difficulty with balance. 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 Please see assessment and plan for further details. Estimated Date of Discharge greater than 2 midnights Code Status DNR-CCA, no intubation; code status verified on 07/07/2023 with patient (capacity intact) Chief Complaint difficulty with balance History of Present Illness Cat Carroll is a 88 y.o. female patient of Claudine Majano MD with history of trigeminal neuralgia, presented to [facility] on 07/07/2023 with difficulty with balance. Patient went to her neurology appointment when she had difficulty keeping her balance and stumbled up the stairs on the way to her appointment. Her doctor was concerned and recommended that she go to the ED for further evaluation. Chart review notes slight confusion and dizziness, however patient denies fall. CT head negative for acute process. Patient was transferred to [facility] for neurology consult and further workup. On exam patient resting comfortably in bed, denies dizziness, answering questions appropriately. She states that she has had difficulty with balance since starting carbamazepine and is being weaned off of the medication by her doctor. She denies any weakness, numbness or tingling to extremities, change in vision, headache. She has history of trigeminal neuralgia and is followed outpatient by neurology. She will be admitted for neurology consult and medical management. 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 prior biopsies no dysplasia last biopsies 08/2014 Benign carcinoid tumor of the duodenum 2014 Cancer ([facility]) skin cancer-squamous cells removed Chronic kidney disease (CKD), stage III (moderate) ([facility]) 09/12/2016 EGFR 43 Fibromyalgia Floating kidney GERD (gastroesophageal reflux disease) 2009 Hypertension 1999 Macular degeneration 2017 Myocardial infarction ([facility]) 08/2018 STEMI Osteoporosis 2010 Trigeminal neuralgia of left side of face 2005 Vertigo Vitamin D deficiency 2016 Past Surgical History Past Surgical History: Procedure Laterality Date BACK SURGERY 2013 fusion and rods placed in lower back. Cabrera donna. Dr Hinds BLADDER REPAIR 1989 CATARACT EXT/ECCE Bilateral 2011 Dr arambula CHOLECYSTECTOMY CYST REMOVAL Right 1999 cyst removal from rt breast-benign DILATION AND CURETTAGE (D AND C) 1970 x 2 EGD 01/01/2015 Dr. ZavalaLzcxrb-Vxygguity-Prgnhei's esophagus EGD 08/2014 Dr. Vinicius Pruett-Barrett's esophagitis biopsies negative for dysplasia. ESOPHAGOGASTRODUODENOSCOPY 01/04/2018 Dr. Zavala -biopsies performed-Kelly's esophagitis-carcinoid tumor posterior wall duodenum FRACTURE SURGERY Right Plates and screws in rt arm after fracture. dr Dolan LEFT HEART CATH N/A 08/23/2018 Procedure: Left Heart Cath; Surgeon: Glen Fair MD; Location: [facility]; Service: Cardiovascular HYSTERECTOMY 1974 KIDNEY SURGERY 1968 had exploratory surgery d/t floating kidney Dx KNEE SURGERY Left 1997 left knee arthoscopy LUMPECTOMY Left 1989 benign ORIF HIP GAMMA NAIL Right 04/02/2020 IN NJX DX/THER AGT PVRT FACET JT LMBR/SAC 1 LEVEL Bilateral 06/18/2023 Procedure: Lumbar medial branch nerve blocks, bilateral lumbar 2-3-4; Surgeon: Jake Navarro DO; Location: Main OR; Service: Pain Management IN NJX DX/THER AGT PVRT FACET JT LMBR/SAC 1 LEVEL Bilateral 07/02/2023 Procedure: Lumbar medial branch nerve blocks, bilateral lumbar 2-3-4; Surgeon: Jake Navarro DO; Location: Main OR; Service: Pain Management SQUAMOUS CELL CARCINOMA EXCISION x4 TOTAL KNEE ARTHROPLASTY Left 2013 dr dolan TUMOR REMOVAL 2012 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 Family History Family History Problem Relation Age of Onset Diabetes Mother Heart disease Mother Heart disease Father Stroke Father Diabetes Sister Dementia Sister Heart disease Brother Diabetes Brother Diabetes Maternal Uncle Bipolar disorder Daughter Diabetes Son Cancer Neg Hx Aneurysm Neg Hx Seizures Neg Hx Social History Social History Tobacco Use Smoking Status Former Packs/day: 0 Types: Cigarettes Quit date: 04/03/1976 Years since quittin.2 Passive exposure: Never Smokeless Tobacco Never Social History Substance and Sexual Activity Alcohol Use No Social History Substance and Sexual Activity Drug Use No Allergy Information I have reviewed the patient's allergies. Aspirin; Bacitracin zinc-polymyxin b; Codeine; Gabapentin; Latex, natural rubber; Wzugcbvj-gqkdnfjypvh-gbupjyfvc; Adhesive tape-silicones; Bacitracin; Hydrocortisone; Lidocaine; and Neomycin Home Medications Home medications were reviewed. Review Of Systems All relevant systems have been reviewed and are negative except as noted in HPI or below Physical Examination BP (!) 170/75 (BP Location: Left arm, Patient Position: Lying) Pulse 74 Temp (!) 96.7 F (35.9 C) (Oral) Resp 18 Ht 5' 4 Wt 59.6 kg (131 lb 6.7 oz) SpO2 98% BMI 22.56 kg/m General Appearance: alert; well appearing; in no acute distress HEENT: Head- normocephalic; Eyes- EOMI, sclera anicteric; Throat- mucous membranes moist Cardiovascular: regular rate and rhythm; normal S1, S2; no murmurs, rubs, clicks or gallops; peripheral edema absent Respiratory: lungs clear to auscultation; without wheezes, rales or rhonchi; on room air Abdomen: soft, non-tender, non-distended Neurological: oriented x 3; normal speech; no focal findings or movement disorder noted Musculoskeletal: no significant deformity or tenderness to palpation Skin: normal coloration Psych: normal mood and affect [facility] 07-07-2023 History and physical note [facility] [place] [facility] Patient Name: Cat Carroll : 1935 MR #: [id number] Admit Date: 07/07/2023 Physicians: Claudine Majano MD (Family); Steve Mayo,Rianna (Referring) Cat Carroll is a 88 y.o. female patient of Claudine Majano MD with history of trigeminal neuralgia, presented to [facility] on 07/07/2023 with difficulty with balance. 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 Please see assessment and plan for further details. Estimated Date of Discharge greater than 2 midnights Code Status DNR-CCA, no intubation; code status verified on 07/07/2023 with patient (capacity intact) Chief Complaint difficulty with balance History of Present Illness Cat Carroll is a 88 y.o. female patient of Claudine Majano MD with history of trigeminal neuralgia, presented to [facility] on 07/07/2023 with difficulty with balance. Patient went to her neurology appointment when she had difficulty keeping her balance and stumbled up the stairs on the way to her appointment. Her doctor was concerned and recommended that she go to the ED for further evaluation. Chart review notes slight confusion and dizziness, however patient denies fall. CT head negative for acute process. Patient was transferred to [facility] for neurology consult and further workup. On exam patient resting comfortably in bed, denies dizziness, answering questions appropriately. She states that she has had difficulty with balance since starting carbamazepine and is being weaned off of the medication by her doctor. She denies any weakness, numbness or tingling to extremities, change in vision, headache. She has history of trigeminal neuralgia and is followed outpatient by neurology. She will be admitted for neurology consult and medical management. 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 prior biopsies no dysplasia last biopsies 08/2014 Benign carcinoid tumor of the duodenum 2014 Cancer ([facility]) skin cancer-squamous cells removed Chronic kidney disease (CKD), stage III (moderate) ([facility]) 09/12/2016 EGFR 43 Fibromyalgia Floating kidney GERD (gastroesophageal reflux disease) 2009 Hypertension 1999 Macular degeneration 2017 Myocardial infarction ([facility]) 08/2018 STEMI Osteoporosis 2010 Trigeminal neuralgia of left side of face 2005 Vertigo Vitamin D deficiency 2016 Past Surgical History Past Surgical History: Procedure Laterality Date BACK SURGERY 2013 fusion and rods placed in lower back. Rick thompson. Dr Hinds BLADDER REPAIR 1989 CATARACT EXT/ECCE Bilateral 2011 Dr ar[place]ula CHOLECYSTECTOMY CYST REMOVAL Right 1999 cyst removal from rt breast-benign DILATION AND CURETTAGE (D AND C) 1970 x 2 EGD 01/01/2015 Dr. ZavalaRxahuo-Xdoqkviky-Zftdynd's esophagus EGD 08/2014 Dr. Vinicius Pruett-Barrett's esophagitis biopsies negative for dysplasia. ESOPHAGOGASTRODUODENOSCOPY 01/04/2018 Dr. Zavala -biopsies performed-Kelly's esophagitis-carcinoid tumor posterior wall duodenum FRACTURE SURGERY Right Plates and screws in rt arm after fracture. dr Dolan LEFT HEART CATH N/A 08/23/2018 Procedure: Left Heart Cath; Surgeon: Glen Fair MD; Location: [facility]OD[facility]; Service: Cardiovascular HYSTERECTOMY 1974 KIDNEY SURGERY 1968 had exploratory surgery d/t floating kidney Dx KNEE SURGERY Left 1997 left knee arthoscopy LUMPECTOMY Left 1989 benign ORIF HIP GAMMA NAIL Right 04/02/2020 IN NJX DX/THER AGT PVRT FACET JT LMBR/SAC 1 LEVEL Bilateral 06/18/2023 Procedure: Lumbar medial branch nerve blocks, bilateral lumbar 2-3-4; Surgeon: Jake Navarro DO; Location: Main OR; Service: Pain Management IN NJX DX/THER AGT PVRT FACET JT LMBR/SAC 1 LEVEL Bilateral 07/02/2023 Procedure: Lumbar medial branch nerve blocks, bilateral lumbar 2-3-4; Surgeon: Jake Navarro DO; Location: Main OR; Service: Pain Management SQUAMOUS CELL CARCINOMA EXCISION x4 TOTAL KNEE ARTHROPLASTY Left 2013 dr dolan TUMOR REMOVAL 2012 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 Family History Family History Problem Relation Age of Onset Diabetes Mother Heart disease Mother Heart disease Father Stroke Father Diabetes Sister Dementia Sister Heart disease Brother Diabetes Brother Diabetes Maternal Uncle Bipolar disorder Daughter Diabetes Son Cancer Neg Hx Aneurysm Neg Hx Seizures Neg Hx Social History Social History Tobacco Use Smoking Status Former Packs/day: 0 Types: Cigarettes Quit date: 04/03/1976 Years since quittin.2 Passive exposure: Never Smokeless Tobacco Never Social History Substance and Sexual Activity Alcohol Use No Social History Substance and Sexual Activity Drug Use No Allergy Information I have reviewed the patient's allergies. Aspirin; Bacitracin zinc-polymyxin b; Codeine; Gabapentin; Latex, natural rubber; Bmdgjabh-fgufvsqnqnu-nsbwwrnpo; Adhesive tape-silicones; Bacitracin; Hydrocortisone; Lidocaine; and Neomycin Home Medications Home medications were reviewed. Review Of Systems All relevant systems have been reviewed and are negative except as noted in HPI or below Physical Examination BP (!) 170/75 (BP Location: Left arm, Patient Position: Lying) Pulse 74 Temp (!) 96.7 F (35.9 C) (Oral) Resp 18 Ht 5' 4 Wt 59.6 kg (131 lb 6.7 oz) SpO2 98% BMI 22.56 kg/m General Appearance: alert; well appearing; in no acute distress HEENT: Head- normocephalic; Eyes- EOMI, sclera anicteric; Throat- mucous membranes moist Cardiovascular: regular rate and rhythm; normal S1, S2; no murmurs, rubs, clicks or gallops; peripheral edema absent Respiratory: lungs clear to auscultation; without wheezes, rales or rhonchi; on room air Abdomen: soft, non-tender, non-distended Neurological: oriented x 3; normal speech; no focal findings or movement disorder noted Musculoskeletal: no significant deformity or tenderness to palpation Skin: normal coloration Psych: normal mood and affect documented in this encounter [facility] 07-07-2023 Evaluation + Plan note Associated Problem(s): Preop cardiovascular exam The patient's risk of Major Adverse Cardiac Events (MACE) perioperatively is elevated based on RCRI and AHA/ACC 2014 guidelines. Cardiac risk factors are optimized and EKG reviewed and unchanged from previous. Echo is ordered prior to procedure. No further cardiac testing is indicated. Beta-blockers: -continue if patient is already taking (unless clinically contraindicated: hypotension, bradycardia, CHF etc) -do NOT start on the day of surgery -consider starting prior to surgery if: patient RCRI >3 and no contraindication Statin: -continue perioperatively unless contraindication Aspirin: -continue in patients with coronary artery disease or atrial fibrillation perioperatively Dietary supplements -hold for one week prior to surgery NSAIDs: -hold one week prior to surgery [facility] 07-07-2023 Miscellaneous Notes Associated Problem(s): Preop cardiovascular exam The patient's risk of Major Adverse Cardiac Events (MACE) perioperatively is elevated based on RCRI and AHA/ACC 2014 guidelines. Cardiac risk factors are optimized and EKG reviewed and unchanged from previous. Echo is ordered prior to procedure. No further cardiac testing is indicated. Beta-blockers: -continue if patient is already taking (unless clinically contraindicated: hypotension, bradycardia, CHF etc) -do NOT start on the day of surgery -consider starting prior to surgery if: patient RCRI >3 and no contraindication Statin: -continue perioperatively unless contraindication Aspirin: -continue in patients with coronary artery disease or atrial fibrillation perioperatively Dietary supplements -hold for one week prior to surgery NSAIDs: -hold one week prior to surgery documented in this encounter [facility] 07-07-2023 History of Present illness Narrative Chief Complaint Patient presents with Pre-op Exam HPI: Cat Carroll is a 88 y.o. female presenting today for preop evaluation. Former patient of Gisell Desai. Has PMH of prediabetes, coronary artery disease, IA previous, trigeminal neuralgia and chronic low back pain, Kelly's esophagus, fibromyalgia as well as urinary incontinence. Chronic back pain: Has had lumbar spondylosis and degenerative disc disease after failed back surgery with posterior fusion of L5-S1, has been established with Dr. Renae the pain specialist after following for years with palliative medicine on methadone. At this point she is on methadone 5 mg twice daily as needed and going in for another MRI and possibly a back injection depending on how she feels back on the methadone. Trigeminal neuralgia: Chronic along with neuropathy symptoms and trigeminal neuropathy, currently on carbamazepine which seems to relatively control her symptoms but having hyponatremia with that. Following up with neurology for it. Mild systolic dysfunction: Echo last known LVEF of 45 to 50%, repeat echo shows improvement in LVEF of 59% done in September 2022. Continue metoprolol succinate 50 mg daily, losartan 100 mg daily Denies any symptoms of chest pain or shortness of breath. Swelling in the leg is down with adding low-dose Lasix at 20 mg. 03/27: Has been having increased swelling in the leg starting at a.m. even with compression stockings on that she has all days and sometimes sleeping with them at night. Trying to elevate her legs up during the day and taking her Lasix 20 mg twice daily. She denies any associated shortness of breath or chest pain or dizziness with that. Leg swelling : Has been worse in the past month has been taking her Lasix twice daily and quit doing compression stockings as it seems to hurt her legs all day. Has been elevating her legs up. Callie-operative Risk Evaluation (Based on 2014 AHA/ACC Guidelines): Definition of Urgency for Non-cardiac Surgery: Emergent: life or limb threatening (<6hrs, proceed with surgery and clinical risk stratification) Urgent: time for limited clinical evaluation (6-24hrs) Time-sensitive: delay for more than 1-6 weeks negatively affects outcomes (most cancers) Elective: can be delayed up to 1 year. Procedures: Low risk: - plastic, breast, corneal, endoscopic, or skin surgeries. Intermediate risk: not low or high risk. High-risk: - supra-inguinal vascular surgeries except carotid end arterectomy. Revised Grey cardiac risk index (RCRI): High-risk type of surgery Yes / No (includes any intraperitoneal, intrathoracic, or suprainguinal vascular procedures) History of ischemic heart disease Yes / No History of chronic heart failure Yes / No History of cerebrovascular disease Yes / No Diabetes mellitus requiring treatment with insulin Yes / No Chronic Kidney Disease with preoperative serum creatinine >2.0 mg/dL (177 mol/L) Yes / No Risk of Major Adverse Cardiac Event (MACE - IA, Cardiac arrest or ) RCRI < 2 = MACE <1%, low risk RCRI = 2 = MACE = 1%, elevated-risk Physical Performance: Minimal Metabolic Equivalent of Task (MET) level at 4: Yes METS In-door activities Out-door activities 2.5- 3.9: Cooking, Light housekeeping, Walking down stair , Walking at job , Patient care, nursing, Mobbing and vacuuming, Packing box for moving 3mph walk (1 mile/ 20 min), Driving tractor / truck, Car washing or window, Walking dog , Shopping , Moderately vigorous, playing with children, Picking fruits or vegetables , Pushing stroller with child 4: Painting, Walking down stair or standing carrying up to 25lb, Paper hanging , Climbing stairs, Dancing (moderately fast) Gardening , Walking 4 blocks , Walking at brisk speed (1 mil/ 17-18min), Bicycling < 10 mil/hr (leisurely) , Golf carrying clubs , Swimming slowly 7: Walking down stair or standing carrying 75-99lb, Dancing (vigorous) Hiking, kayaking, rowing, and canoeing, Double tennis 10: Single tennis , Bicycling 10 to 16 mph , Swimming laps moderately fast to fast, Running 6 mph (10-minute mile) METS Performance Status < 4 Poor 4-6 Moderate = 7 Good = 10 Excellent History of Present Illness The patient presents for preoperative cardiac evaluation. The patient underwent a procedure performed by Dr. Renae approximately one week ago due to persistent back pain. An MRI was conducted, revealing disc disease, lumbar spondylosis, and severe spinal stenosis on the right side between L5 and S1. Additionally, arthritis was observed. Dr. Renae administered six injections into the patient's back, followed by a nerve ablation procedure. However, a cardiac evaluation was necessary prior to the procedure. The patient had a regular consultation with Dr. Renae on 07/01/2022. On 08/23/2018, the patient experienced a myocardial infarction, necessitating the placement of two stents by Dr. Fair in [place]. Post-procedure, the patient denies experiencing shortness of breath, chest pain, or dyspnea on exertion. Her renal function was last assessed in 05/2023, yielded normal results. She maintains an active lifestyle, including cooking, light housekeeping, and ascending and descending stairs, a three-story house, and carrying a laundry basket without any complications. Her physical activities include brisk walking, swimming, and yard work. She consults with Dr. Schroeder, a general hardware salesperson, biannually, with her last visit in 09/2022. She is also on a coated dose of Ecotrin, with instructions to discontinue its use nine days prior to the surgery. 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 prior biopsies no dysplasia last biopsies 08/2014 Benign carcinoid tumor of the duodenum 2014 Cancer (HCC) skin cancer-squamous cells removed Chronic kidney disease (CKD), stage III (moderate) (HCC) 09/12/2016 EGFR 43 Fibromyalgia Floating kidney GERD (gastroesophageal reflux disease) 2009 Hypertension 1999 Macular degeneration 2017 Myocardial infarction (HCC) 08/2018 STEMI Osteoporosis 2010 Trigeminal neuralgia of left side of face 2004 Vertigo Vitamin D deficiency 2016 Past Surgical History: Procedure Laterality Date BACK SURGERY 2013 fusion and rods placed in lower back. Rick thompson. Dr Hinds BLADDER REPAIR 1989 CATARACT EXT/ECCE Bilateral 2011 Dr [place] CHOLECYSTECTOMY CYST REMOVAL Right 2000 cyst removal from rt breast-benign DILATION AND CURETTAGE (D AND C) 1970 x 2 EGD 01/01/2015 Dr. ZavalaOzztul-Izndajrru-Roylljb's esophagus EGD 08/2014 Dr. Vinicius Pruett-Barrett's esophagitis biopsies negative for dysplasia. ESOPHAGOGASTRODUODENOSCOPY 01/04/2018 Dr. Zavala -biopsies performed-Kelly's esophagitis-carcinoid tumor posterior wall duodenum FRACTURE SURGERY Right Plates and screws in rt arm after fracture. dr Dolan [facility] LEFT HEART CATH N/A 08/23/2018 Procedure: Left Heart Cath; Surgeon: Glen Fair MD; Location: [facility]; Service: Cardiovascular HYSTERECTOMY 1974 KIDNEY SURGERY 1968 had exploratory surgery d/t floating kidney Dx KNEE SURGERY Left 1997 left knee arthoscopy LUMPECTOMY Left 1989 benign ORIF HIP GAMMA NAIL Right 04/02/2020 IN NJX DX/THER AGT PVRT FACET JT LMBR/SAC 1 LEVEL Bilateral 06/18/2023 Procedure: Lumbar medial branch nerve blocks, bilateral lumbar 2-3-4; Surgeon: Jake Navarro DO; Location: Main OR; Service: Pain Management IN NJX DX/THER AGT PVRT FACET JT LMBR/SAC 1 LEVEL Bilateral 07/02/2023 Procedure: Lumbar medial branch nerve blocks, bilateral lumbar 2-3-4; Surgeon: Jake Navarro DO; Location: Main OR; Service: Pain Management SQUAMOUS CELL CARCINOMA EXCISION x4 TOTAL KNEE ARTHROPLASTY Left 2012 dr dolan TUMOR REMOVAL 2011 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 Family History Problem Relation Age of Onset Diabetes Mother Heart disease Mother Heart disease Father Stroke Father Diabetes Sister Dementia Sister Heart disease Brother Diabetes Brother Diabetes Maternal Uncle Bipolar disorder Daughter Diabetes Son Cancer Neg Hx Aneurysm Neg Hx Seizures Neg Hx Social History Tobacco Use Smoking status: Former Packs/day: 0 Types: Cigarettes Quit date: 04/03/1976 Years since quittin.2 Smokeless tobacco: Never Vaping Use Vaping Use: Never used Substance Use Topics Alcohol use: No Drug use: No Review of Systems Vitals: 07/07/23 1258 07/07/23 1259 07/07/23 1300 BP: 134/82 135/82 122/70 BP Location: Right arm Right arm Right arm Patient Position: Lying Sitting Standing BP Cuff Size: Adult Adult Pulse: 75 76 Resp: 16 Temp: 98 F (36.7 C) TempSrc: Temporal Weight: 60.3 kg (133 lb) Height: 5' 4 Estimated body mass index is 22.83 kg/m as calculated from the following: Height as of this encounter: 5' 4. Weight as of this encounter: 60.3 kg (133 lb). Physical Exam Constitutional: General: She is not in acute distress. Appearance: She is not ill-appearing. HENT: Head: Normocephalic and atraumatic. Eyes: Extraocular Movements: Extraocular movements intact. Conjunctiva/sclera: Conjunctivae normal. Pupils: Pupils are equal, round, and reactive to light. Cardiovascular: Rate and Rhythm: Normal rate and regular rhythm. Pulses: Normal pulses. Heart sounds: Normal heart sounds. No murmur heard. No gallop. Pulmonary: Effort: Pulmonary effort is normal. Breath sounds: Normal breath sounds. No wheezing, rhonchi or rales. Chest: Chest wall: No tenderness. Abdominal: General: Abdomen is flat. Bowel sounds are normal. There is no distension. Palpations: Abdomen is soft. There is no mass. Tenderness: There is no abdominal tenderness. There is no right CVA tenderness, left CVA tenderness, guarding or rebound. Musculoskeletal: General: No tenderness. Normal range of motion. Cervical back: Normal range of motion and neck supple. No rigidity. No muscular tenderness. Right lower leg: No edema. Left lower leg: No edema. Lymphadenopathy: Cervical: No cervical adenopathy. Skin: General: Skin is warm. Findings: No erythema or rash. Neurological: General: No focal deficit present. Mental Status: She is alert and oriented to person, place, and time. Sensory: No sensory deficit. Motor: No weakness. Coordination: Coordination abnormal. Gait: Gait normal. Comments: Ataxic Psychiatric: Mood and Affect: Mood normal. Behavior: Behavior normal. Thought Content: Thought content normal. Judgment: Judgment normal. OARRS/NARxCHECK Report Received and Assessed: Jake Navarro DO on 06/26/2023 10:26 AM Date controlled substance agreement signed: 04/22/2023 Date of last drug screen: @Exam@ PHQ9: JOHNATHON-7 Tobacco Counseling: Counseling given: Not Answered Patient's Medications New Prescriptions No medications on file Previous Medications ASPIRIN (ECOTRIN ORAL) Take by mouth . ATORVASTATIN (LIPITOR) 40 MG TABLET Take 1 (one) tablet (40 mg total) by mouth nightly . BACLOFEN (LIORESAL) 10 MG TABLET Take 1 (one) tablet (10 mg total) by mouth 3 (three) times a day . CARBAMAZEPINE (TEGRETOL) 200 MG TABLET TAKE 1 TABLET THREE TIMES A DAY COLESTIPOL (COLESTID) 1 GRAM TABLET D-MANNOSE ORAL DIPHENHYDRAMINE-ACETAMINOPHEN (TYLENOL PM) 25-500 MG TAB Take 2 (two) tablets by mouth nightly as needed . DULOXETINE (CYMBALTA) 60 MG CAPSULE Take 1 (one) capsule (60 mg total) by mouth at bedtime . ESTRADIOL (ESTRACE) 0.01 % (0.1 MG/GRAM) VAGINAL CREAM Insert 2 (two) g into the vagina daily . FUROSEMIDE (LASIX) 20 MG TABLET Take 1 (one) tablet (20 mg total) by mouth 2 (two) times a day . LAMOTRIGINE (LAMICTAL) 100 MG TABLET 50 mg (half tab) daily weeks 1 and 2, 100 mg (one tab) daily weeks 3 and 4, 200 mg thereafter . LOSARTAN (COZAAR) 50 MG TABLET Take 1 (one) tablet (50 mg total) by mouth daily . METHADONE (DOLOPHINE) 5 MG TABLET Take 1 (one) tablet (5 mg total) by mouth 2 (two) times a day (Days supply per fill: 30) Start: 07/04/23. METHADONE (DOLOPHINE) 5 MG TABLET Take 1 (one) tablet (5 mg total) by mouth 2 (two) times a day (Days supply per fill: 30) Start: 08/01/23. METHADONE (DOLOPHINE) 5 MG TABLET Take 1 (one) tablet (5 mg total) by mouth 2 (two) times a day (Days supply per fill: 30) Start: 08/30/23. METOPROLOL SUCCINATE (TOPROL-XL) 50 MG 24 HR TABLET Take 1 (one) tablet (50 mg total) by mouth at bedtime . MULTIVIT-MIN/IRON/FOLIC/LUTEIN (CENTRUM SILVER WOMEN ORAL) Take 1 tablet by mouth daily. NALOXONE (NARCAN) 4 MG/ACTUATION SPRY Administer 1 spray into one nostril for known or suspected opioid overdose. If patient worsens or does not respond, may repeat in 2-3 minutes. . NITROGLYCERIN (NITROSTAT) 0.[address] 1 (one) tablet (0.4 mg total) under the tongue every 5 (five) minutes as needed for chest pain , if no relief after 3 doses call 911 . SPIRONOLACTONE (ALDACTONE) 25 MG TABLET Take 1 (one) tablet (25 mg total) by mouth daily . UNIV COMP RX: AMITRIPTYLINE 2%, BACLOFEN 2%, GABAPENTIN 5%, LIDOCAINE 5% EMOLLIENT CREAM Apply 0.5 g topically 3 (three) times a day as needed . VIBEGRON (GEMTESA) 75 MG TAB Take by mouth . Modified Medications No medications on file Discontinued Medications DIAZEPAM (VALIUM) 5 MG TABLET Take 1 (one) tablet (5 mg total) by mouth 2 (two) times a day as needed for anxiety (take 1 tablet 1 hour prior to procedure. Can take additional tablet 30 min prior to procedure.) (Days supply per fill: 1) . Health Maintenance Due Topic Date Due Pneumococcal Vaccine: Age 65+ (1 of 2 - PCV) Never done Zoster Vaccines (1 of 2) Never done Diabetic Eye Exam 05/14/2022 COVID-19 Vaccine (2022-24 season) 2022 A1C 04/26/2023 Assessment & Plan Problem List Items Addressed This Visit Digestive Carcinoid tumor of small intestine Respiratory Chronic bronchitis (HCC) Cardiovascular and Mediastinum Acute myocardial infarction (HCC) Relevant Orders Echocardiogram complete Other Moderate major depression (HCC) Preop cardiovascular exam - Primary The patient's risk of Major Adverse Cardiac Events (MACE) perioperatively is elevated based on RCRI and AHA/ACC 2014 guidelines. Cardiac risk factors are optimized and EKG reviewed and unchanged from previous. Echo is ordered prior to procedure. No further cardiac testing is indicated. Beta-blockers: -continue if patient is already taking (unless clinically contraindicated: hypotension, bradycardia, CHF etc) -do NOT start on the day of surgery -consider starting prior to surgery if: patient RCRI >3 and no contraindication Statin: -continue perioperatively unless contraindication Aspirin: -continue in patients with coronary artery disease or atrial fibrillation perioperatively Dietary supplements -hold for one week prior to surgery NSAIDs: -hold one week prior to surgery Relevant Orders ECG 12 Lead (Completed) Echocardiogram complete Other Visit Diagnoses Chronic systolic heart failure (HCC) Coagulation disorder (HCC) Ataxia Patient has been started on baclofen and has been unsteady had 3 x near falls in the clinic today and in the setting of polypharmacy and pain medicines she is on I believe it might be warranted that she gets blood work and possible head CT to make sure her imbalance and dizziness is not related to other intracranial etiology or CVA No follow-ups on file. My ongoing relationship with Cat Carroll requires continued responsibility and cognitive effort of being the focal point for all services related to serious condition(s). After discussing the use of ambient listening and audio recording in generating medical documentation, the patient verbally consented to use of this technology for today's visit. CLAUDINE MAJANO MD [facility] [address] [facility] [address] [facility] [id number] Dept: [phone] 03/15/2020 2:00 PM 02/11/2022 1:43 PM 07/25/2022 1:32 PM 02/20/2023 12:00 PM 02/25/2023 7:01 AM 05/11/2023 8:01 AM 05/20/2023 11:40 AM Depression Screening Little interest or pleasure in doing things 3 0 1 3 2 0 0 Feeling down, depressed, or hopeless 2 0 1 3 2 0 0 PHQ-2 Total Score 5 0 2 6 4 0 0 Trouble falling or staying asleep, or sleeping too much 0 1 0 2 3 0 Feeling tired or having little energy 1 1 1 1 2 0 Poor appetite or overeating 1 0 0 1 2 0 Feeling bad about yourself - or that you are a failure or have let yourself or your family down 1 0 0 0 0 0 Trouble concentrating on things, such as reading the newspaper or watching television 0 0 0 1 1 0 Moving or speaking so slowly that other people could have noticed. Or the opposite - being so fidgety or restless that you have been moving around a lot more than usual 0 0 0 0 0 0 Thoughts that you would be better off , or of hurting yourself in some way 1 0 0 1 1 0 PHQ-9 Total Score 9 2 3 12 13 0 If you checked off any problems, how difficult have these problems made it for you to do your work, take care of things at home, or get along with other people? Very difficult Not difficult at all Not difficult at all Very difficult Not difficult at all Not difficult at all documented in this encounter [facility] 07-03-2023 History of Present illness Narrative I called Cat and scheduled the cardiac clearance appointment 4/30/24 @ 1 pm. Anytime in the next 2 weeks or so would be perfect. Thank you! documented in this encounter [facility] 07-03-2023 History of Present illness Narrative Anytime in the next 2 weeks or so would be perfect. Thank you! documented in this encounter [facility] 07-02-2023 Note LUMBAR MEDIAL BRANCH BLOCK PROCEDURE: 1) Lumbar medial branch nerve blocks, bilateral L1, L2, L3 2) Fluoroscopic needle guidance REASON FOR PROCEDURE: Lumbar Spondylosis PHYSICIAN: Jake Navarro D.O. MEDICATIONS INJECTED: 1 mL of 1% lidocaine PF at each level LOCAL ANESTHETIC INJECTED: 2 mL of 1% lidocaine per site SEDATION MEDICATIONS: None ESTIMATED BLOOD LOSS: None COMPLICATIONS: None TECHNIQUE: Time-out was taken to identify the correct patient, procedure and side prior to starting the procedure. Lying in a prone position, the patient was prepped and draped in the usual sterile fashion using DuraPrep and a fenestrated drape. Each site was identified under fluoroscopy. Local anesthetic was given by raising a wheal and going down to the hub of a 25-gauge 1.5-inch needle. The 25-gauge 3.5-inch Quincke needle was advanced to the anatomic location of each medial branch at the junction of the superior articular process and transverse process utilizing intermittent fluoroscopy. Medication was then injected slowly. The procedure was repeated for the contralateral side. The procedure was completed without complications and was tolerated well. The patient was monitored after the procedure. The patient (or responsible democrat) was given post-procedure and discharge instructions to follow at home. The patient was discharged in stable condition. A follow-up appointment was made. Note: none Follow-up in office AUTHENTICATED BY JAKE NAVARRO, ON 09/28/2023 11:46:32 [facility] 06-26-2023 History of Present illness Narrative [facility] Interventional Pain Management Office Note Patient Name: aCt Carroll Referring Physician: No ref. provider found Date of : 1935 PCP: Claudine Majano MD Date of Service: 06/26/23 Assessment & Plan Assessment: Failed back surgery syndrome Posterior fusion, L5-S1 Lumbar spondylosis Lumbar spinal stenosis Lumbar degenerative disease Trigeminal neuralgia Chronic pain syndrome Chronic continuous opioid use Narrative: She presented with chronic low back pain secondary to combination of lumbar spondylosis, lumbar degenerative disease and a component of failed back surgery syndrome following a posterior fusion L5-S1. MRI lumbar spine reviewed and shows recurrent degenerative changes resulting in severe right foraminal narrowing at L5-S1. There is also additional multilevel degenerative changes throughout the rest of her lumbar spine. It appears most of her pain is secondary to adjacent segment disease related to facet arthropathy. She is status post lumbar medial branch nerve blocks, bilateral L1, L2, L3 x 1 with greater than 80% improvement pain and function for the duration of the local anesthetic. We schedule a repeat lumbar medial branch nerve blocks, bilateral L1, L2, L3 to treat her facet mediated pain. If positive relief following both rounds of test blocks we will move forth a lumbar medial branch nerve radiofrequency ablation, bilateral L1, L2, L3. She also is dealing with trigeminal neuralgia and vertigo symptoms. She follows closely with neurology at [facility] for treatment of trigeminal neuralgia and dizziness. I explained that I do not do the blocks for trigeminal neuralgia and she would likely need to be referred to a tertiary center at [facility] in the future if this pain worsens. She was maintained on methadone 10 mg twice daily by a previous pain provider. I did discuss at a previous visit that this is a high dose for chronic noncancer pain. She states that is was adequately controlled her pain and she denies any side effects. she does endorse inadequate relief on her current regimen. She feels the 5 mg is not nearly as effective as the 10 wants. I told her I would like to complete the medial blocks and ablations. If her pain is not significantly improved at that time we can discuss medication changes. EKG 02/2023: Qtc 434 Plan: Medications: Continue methadone 5 mg BID prn Follow-up: No follow-ups on file. Compliance OARRS/NARxCheck: OARRS/NARxCHECK Report Received and Assessed: 04/22/23 Date controlled substance agreement signed: 04/22/23 Narcan Rx Ordered: 04/22/23 Opioid Risk Tool: If chronic opioids were prescribed at today's visit, the risk of chronic opioid therapy was discussed with patient including, but not limited to developing a tolerance, dependence, addiction or the possibility of overdose and even . The patient was instructed not to mix opioids with other sedating medications or substances including benzodiazepines and alcohol. The patient was instructed to only take medication as prescribed. The patient was instructed not to sell or share medication. The patient was also instructed to lock their medication in a safe location. The goal of opioid therapy is to improve their pain significantly and allow them to more easily perform their ADLs. The goal of maintaining opioid at the lowest effective dose was discussed. All questions were answered. Narcan education was provided and narcan prescription ordered upon initiation of chronic opioid therapy and will offered annually or sooner if patient requests. If procedure was scheduled at today's, the risks of the procedure including, but not limited to, worsening pain, bleeding, infection and nerve injury and headache was discussed with the patient. The benefits of the procedure were also explained which included reductions of pain and improvement in functional status. The patient voiced understanding of the risks and benefits and wishes to proceed with the above procedure. History of Present Illness / Review of Systems Reason for Visit: Follow-up Pain location: low back Current pain Level: 6 Best pain Level: 0 Worst pain Level: 10 Pain description: dull, sharp, stabbing, shooting, and aching Radiation: none Sensory changes: none Motor changes: Yes Duration of pain: >6 months Increases pain: standing, forward bending, backward bending, and morning Decreases pain: mobility Patient's Goals: decrease pain, decrease pain with activity, improve ability to perform activities of daily living, improve quality of life, improve sleep, stand longer, and walk further Acceptable level of pain: 0 Additional concerns: none Focused Review of Systems: Loss of bladder control: Denies Loss of bowel control: Denies Saddle anesthesia: Denies Recent falls: Yes Constipation: Denies 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 prior biopsies no dysplasia last biopsies 08/2014 Benign carcinoid tumor of the duodenum 2014 Cancer (HCC) skin cancer-squamous cells removed Chronic kidney disease (CKD), stage III (moderate) ([facility]) 09/12/2016 EGFR 43 Fibromyalgia Floating kidney GERD (gastroesophageal reflux disease) 2009 Hypertension 2000 Macular degeneration 2017 Myocardial infarction ([facility]) 08/2018 STEMI Osteoporosis 2010 Trigeminal neuralgia of left side of face 2004 Vertigo Vitamin D deficiency 2016 Past Surgical History Past Surgical History: Procedure Laterality Date BACK SURGERY 2013 fusion and rods placed in lower back. [place]rera donna. Dr Hinds BLADDER REPAIR 1989 CATARACT EXT/ECCE Bilateral 2011 Dr [place] CHOLECYSTECTOMY CYST REMOVAL Right 2000 cyst removal from rt breast-benign DILATION AND CURETTAGE (D AND C) 1970 x 2 EGD 01/01/2015 Dr. ZavalaClnnve-Ikapzrmfc-Xxhgcdj's esophagus EGD 08/2014 Dr. Vinicius RamachandranP-Ypwbryrqs-Dmylvmc's esophagitis biopsies negative for dysplasia. ESOPHAGOGASTRODUODENOSCOPY 01/04/2018 Dr. Zavala -biopsies performed-Kelly's esophagitis-carcinoid tumor posterior wall duodenum FRACTURE SURGERY Right Plates and screws in rt arm after fracture. dr Dolan LEFT HEART CATH N/A 08/23/2018 Procedure: Left Heart Cath; Surgeon: Glen Fair MD; Location: [facility]; Service: Cardiovascular HYSTERECTOMY 1975 KIDNEY SURGERY 1969 had exploratory surgery d/t floating kidney Dx KNEE SURGERY Left 1997 left knee arthoscopy LUMPECTOMY Left 1989 benign ORIF HIP GAMMA NAIL Right 04/02/2020 IN NJX DX/THER AGT PVRT FACET JT LMBR/SAC 1 LEVEL Bilateral 06/18/2023 Procedure: Lumbar medial branch nerve blocks, bilateral lumbar 2-3-4; Surgeon: Jake Navarro DO; Location: Main OR; Service: Pain Management SQUAMOUS CELL CARCINOMA EXCISION x4 TOTAL KNEE ARTHROPLASTY Left 2012 dr dolan TUMOR REMOVAL 2011 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 Allergies Allergies: Aspirin; Bacitracin zinc-polymyxin b; Codeine; Gabapentin; Latex, natural rubber; Sujpxnxa-tjxeaardeqc-nyycwfgqu; Adhesive tape-silicones; Bacitracin; Hydrocortisone; Lidocaine; and Neomycin Medications Current Outpatient Medications Medication Instructions aspirin (ECOTRIN ORAL) Oral atorvastatin (LIPITOR) 40 mg, Oral, Nightly baclofen (LIORESAL) 20 mg, Oral, 3 times daily carBAMazepine (TEGRETOL) 200 mg, Oral, 3 times daily colestipoL (COLESTID) 1 gram tablet No dose, route, or frequency recorded. D-MANNOSE ORAL diazePAM (VALIUM) 5 mg, Oral, Daily PRN, Take 1 tablet 1 hour prior to procedure time. Take a second tablet just prior to arrival if needed. diphenhydrAMINE-acetaminophen (TYLENOL PM) 25-500 mg Tab 2 tablets, Oral, Nightly PRN DULoxetine (CYMBALTA) 60 mg, Oral, At bedtime estradioL (ESTRACE) 2 g, Vaginal, Daily furosemide (LASIX) 20 mg, Oral, 2 times daily lamoTRIgine (LAMICTAL) 100 MG tablet 50 mg (half tab) daily weeks 1 and 2, 100 mg (one tab) daily weeks 3 and 4, 200 mg thereafter losartan (COZAAR) 50 mg, Oral, Daily methadone (DOLOPHINE) 5 mg, Oral, 2 times daily, (Days supply per fill: 30) metoprolol succinate (TOPROL-XL) 50 mg, Oral, At bedtime MULTIVIT-MIN/IRON/FOLIC/LUTEIN (CENTRUM SILVER WOMEN ORAL) 1 tablet, Oral, Daily naloxone (NARCAN) 4 mg/actuation Amanda Administer 1 spray into one nostril for known or suspected opioid overdose. If patient worsens or does not respond, may repeat in 2-3 minutes. nitroGLYCERIN (NITROSTAT) 0.4 mg, Sublingual, Every 5 min PRN, , if no relief after 3 doses call 911 spironolactone (ALDACTONE) 25 mg, Oral, Daily UNIV COMP RX: AMITRIPTYLINE 2%, BACLOFEN 2%, GABAPENTIN 5%, LIDOCAINE 5% EMOLLIENT CREAM 0.5 g, Topical, 3 times daily PRN vibegron (Gemtesa) 75 mg Tab Oral Social History Social History Socioeconomic History Marital status: Number of children: 2 Years of education: 12 Tobacco Use Smoking status: Former Packs/day: 0 Types: Cigarettes Quit date: 04/03/1976 Years since quittin.2 Smokeless tobacco: Never Vaping Use Vaping Use: Never used Substance and Sexual Activity Alcohol use: No Drug use: No Sexual activity: Never Social Determinants of Health Financial Resource Strain: Low Risk (03/16/2023) Overall Financial Resource Strain (CARDIA) Difficulty of Paying Living Expenses: Not hard at all Food Insecurity: No Food Insecurity (03/16/2023) Hunger Vital Sign Worried About Running Out of Food in the Last Year: Never true Ran Out of Food in the Last Year: Never true Transportation Needs: No Transportation Needs (03/16/2023) PRAPARE - Transportation Lack of Transportation (Medical): No Lack of Transportation (Non-Medical): No Physical Activity: Insufficiently Active (10/15/2021) Exercise Vital Sign Days of Exercise per Week: 2 days Minutes of Exercise per Session: 20 min Stress: Stress Concern Present (10/15/2021) Citizen Of [place] [employer] Occupational [employer] - Occupational Stress Questionnaire Feeling of Stress : To some extent Social Connections: Moderately Isolated (10/15/2021) Social Connection and Isolation Panel [NHANES] Frequency of Communication with Friends and Family: Twice a week Frequency of Social Gatherings with Friends and Family: Once a week Attends [employer] Services: 1 to 4 times per year Active Member of Clubs or Organizations: No Attends Club or Organization Meetings: Patient declined Marital Status: Housing Stability: Low Risk (10/15/2021) Housing Stability Vital Sign Unable to Pay for Housing in the Last Year: No Number of Places Lived in the Last Year: 1 Unstable Housing in the Last Year: No . Family History family history includes Bipolar disorder in her daughter; Dementia in her sister; Diabetes in her brother, maternal uncle, mother, sister, and son; Heart disease in her brother, father, and mother; Stroke in her father. Physical Exam PACU Vitals 06/26/23 1016 BP: 133/78 Pulse: 71 Resp: 16 SpO2: 98% General: No acute distress, atraumatic Cardiovascular: normal rate, no edema Respiratory: non-labored respirations Psychiatric: appropriate mood and affect Lumbar Spine Exam: Lumbar ROM decreased in extension left rotation right rotation Lumbar paraspinal tenderness noted bilaterally Axial Loading: positive bilaterally Other Tests Imaging All imaging and tests below were personally reviewed by me unless otherwise indicated. MRI lumbar spine 04/22/23: FINDINGS: There are 5 lumbar type vertebrae. The spine is imaged from T11 through distal sacrum on sagittal sequences. L5-S1 laminectomy and posterior fusion. Straightening to slight reversal of the expected lumbar lordosis with apex at L2. Mild dextrocurvature apex at L2. No spondylolisthesis. Facets are anatomically aligned. L2-L3 adjacent endplate edema. Multilevel adjacent endplate mixed edema and fatty changes. Vertebral body heights are well-maintained. The visualized cord is within normal limits. The conus medullaris terminates at L1. Degenerative changes as follows: T12-L1: Intervertebral disc height loss and desiccation. Diffuse bulge and facet arthropathy. Minimal thecal sac and mild bilateral neural foraminal narrowing. L1-L2: Intervertebral disc height loss and desiccation with adjacent endplate Modic type 2 changes. Disc osteophyte complex and facet arthropathy. Mild thecal sac narrowing. Vpid-aa-yylygdze left and mild right neural foraminal narrowing. L2-L3: Intervertebral disc height loss and desiccation with adjacent endplate Modic type 1 changes. Disc osteophyte complex and facet arthropathy. Moderate thecal sac narrowing. Moderate left and mild right neural foraminal narrowing. L3-L4: Intervertebral disc height loss and desiccation with adjacent endplate Modic type 2 changes. Disc osteophyte complex and facet arthropathy. Uqja-nx-wfwnzvhj thecal sac and mild bilateral neural foraminal narrowing. L4-L5: Intervertebral disc height loss and desiccation with adjacent endplate Modic type 2 changes. Disc osteophyte complex and facet arthropathy. Oncn-of-basmulwp thecal sac narrowing. Moderate right and afnt-pc-kqekuuvs left neural foraminal narrowing. L5-S1: Intervertebral disc height loss and desiccation. L5 inferior endplate Schmorl's node with adjacent endplate Modic type 2 changes. Disc osteophyte complex and facet arthropathy. Thecal sac is decompressed. Severe right and mild left neural foraminal narrowing. Paravertebral structures are unremarkable. IMPRESSION: 1. Surgical changes of L5-S1 laminectomy and posterior fusion. Recurrent degenerative changes resulting in severe right neural foraminal narrowing at this level. 2. Additional multilevel degenerative changes with up to moderate thecal sac narrowing as described. Please correlate with distribution of symptoms and refer to findings section level by level detail. XR lumbar spine 09/02/22: FINDINGS: Five views including lateral flexion and extension. 24 degrees of dextroscoliosis, apex at L2. Status post L5-S1 posterior fusion and decompression. The right L5 transpedicular screw encroaches upon the L4/5 intervertebral disc space. No evidence of hardware loosening. Vertebral body heights are preserved. Severe intervertebral disc space height loss throughout the lumbar spine with endplate osteophytes. The bones are demineralized. Vascular calcifications. IMPRESSION: Status post L5-S1 posterior fusion in similar alignment. Multilevel lumbar spondylosis with 24 degrees of dextroscoliosis, also similar to previous. Thank you for your kind referral. Please do not hesitate to contact me with any questions. Jake Navarro D.O. Interventional Pain Management [facility] [place] This note was generated using Evolve IP voice recognition software in an effort to expedite communication. Please excuse any resultant grammatical or wording errors. Reason for Visit: Follow-up Pain location: low back Current pain Level: 6 Best pain Level: 0 Worst pain Level: 10 Pain description: dull, sharp, stabbing, shooting, and aching Radiation: none Sensory changes: none Motor changes: Yes Duration of pain: >6 months Increases pain: standing, forward bending, backward bending, and morning Decreases pain: mobility Patient's Goals: decrease pain, decrease pain with activity, improve ability to perform activities of daily living, improve quality of life, improve sleep, stand longer, and walk further Acceptable level of pain: 0 Additional concerns: none Focused Review of Systems: Loss of bladder control: Denies Loss of bowel control: Denies Saddle anesthesia: Denies Recent falls: Yes Constipation: Denies documented in this encounter [facility] 06-18-2023 Note LUMBAR MEDIAL BRANCH BLOCK PROCEDURE: 1) Lumbar medial branch nerve blocks, bilateral L1, L2, L3 2) Fluoroscopic needle guidance REASON FOR PROCEDURE: Lumbar Spondylosis PHYSICIAN: Jake Navarro D.O. MEDICATIONS INJECTED: 1 mL of 1% lidocaine PF at each level LOCAL ANESTHETIC INJECTED: 2 mL of 1% lidocaine per site SEDATION MEDICATIONS: None ESTIMATED BLOOD LOSS: None COMPLICATIONS: None TECHNIQUE: Time-out was taken to identify the correct patient, procedure and side prior to starting the procedure. Lying in a prone position, the patient was prepped and draped in the usual sterile fashion using DuraPrep and a fenestrated drape. Each site was identified under fluoroscopy. Local anesthetic was given by raising a wheal and going down to the hub of a 25-gauge 1.5-inch needle. The 25-gauge 3.5-inch Quincke needle was advanced to the anatomic location of each medial branch at the junction of the superior articular process and transverse process utilizing intermittent fluoroscopy. Medication was then injected slowly. The procedure was repeated for the contralateral side. The procedure was completed without complications and was tolerated well. The patient was monitored after the procedure. The patient (or responsible democrat) was given post-procedure and discharge instructions to follow at home. The patient was discharged in stable condition. A follow-up appointment was made. Note: none Follow-up in office AUTHENTICATED BY JAKE NAVARRO ON 09/28/2023 11:44:55 [facility] 06-05-2023 Telephone encounter Note JAYCOB 04/22/23 NOV Procedure 06/18/23 [facility] 06-05-2023 Miscellaneous Notes JAYCOB 04/22/23 NOV Procedure 06/18/23 documented in this encounter [facility] 05-22-2023 Note Addended by: CLAUDINE MAJANO on: 05/22/2023 07:37 AM Modules accepted: Orders [facility] 05-22-2023 Miscellaneous Notes Addended by: CLAUDINE MAJANO on: 05/22/2023 07:37 AM Modules accepted: Orders Addended by: CLAUDINE MAJANO on: 05/19/2023 01:07 PM Modules accepted: Orders documented in this encounter [facility] 05-20-2023 Instructions Rocael Mcleod MD - 05/20/2023 12:03 PM EDT Today, we are going to start you on a new medication, called lamotrigine. Sometimes it is known by its brand name, Lamictal. It is used for treatment of different conditions, including seizures, migraines, bipolar disorder, tremors, and other conditions. It works by inhibiting certain sodium channels in the brain and blocking the release of glutamate, which helps keep the brain and nerves from becoming over-stimulated. While very rare, one of the more serious risks of the medication is an allergic skin reaction called Hodges-Esa Syndrome. This risk is minimized by a slow increase in dose. Therefore, we use the following titration plan: Weeks 1 and 2: 50mg (half tab) once daily of lamotrigine. Keep the 200mg three times daily of the carbamazepine Weeks 3 and 4: 100mg (one tab) once daily of lamotrigine. Keep the 200mg three times daily of the carbamazepine Weeks 5 and 6: 200mg (two tabs) once daily of lamotrigine. Reduce to 100mg (half tab) three times daily of the carbamazepine Weeks 7+: 200mg (two tabs) once daily of lamotrigine, STOP the carbamazepine. Everyone's body processes medication differently depending on a wide variety of factors. Your dose may need adjusted over time which does not necessarily mean that it is not the right medicine for you. After the 6 weeks of med changes are done, let me know if the medication is not strong enough and we may adjust the dose. While most patients do very well with the medication, like all medications it can cause side effects in a small portion of patients. The most common side effects include nausea, stomach pain, swelling in the legs, drowsiness, dizziness, coughing, or muscle aches. Rare but serious side effects include the above-mentioned allergic reaction; while the vast majority of rashes on this medication are actually benign, because of that risk if you do develop a rash please stop the drug and let us know right away. For the most part, side effects fade as your body adjusts. However, if you get severe side effects or if they are not improving after several weeks, let me know and we will stop the medication and choose an alternative for you. If you have an allergic reaction (shortness of breath, rash, swelling of the mouth, lips, or throat) please seek medical attention right away. Some medications require additional safety testing or monitoring, either at the start of the drug or routinely while taking it. In this case, you won't need extra monitoring. Many medications can interact with each other and can sometimes cause issues. After reviewing your medication list today, we feel that the risk of interaction is low enough to be worthwhile. However if you add new medications over time, or if new medical issues such as liver or kidney failure arise, this decision may change, so it is important you make sure you keep your medication list up to date over time. One common drug that can interact with lamotrigine are oral contraceptive pills containing estrogen; these interact with lamotrigine and each drug decreases the effectiveness of the other. The other caution is that some patients will have difficulty tolerating alcohol while taking this medication. It was a pleasure taking care of you, and we all wish you the best of health. For concerns regarding medicines, adjusting doses or other questions: Call : [phone] (direct phone line to neurology staff) - leave a message if no one is available. (Note that [phone] is still listed on most of our paperwork and is a general line to the call pool in [place]; the number above is a faster way to get in touch with our staff here in [place]) [facility] - the best way to send messages directly to your doctors, or request Drug Refills. Call [phone] to set up [facility] on your smart phone or computer. Mailing Address: Attn: Dr. Rocael Mcleod [address] [place] [address]# [id number], [facility] [id number] Our documented in this encounter [facility] 05-20-2023 History of Present illness Narrative Neurology Follow Up Note [facility] Date of Service: 05/20/23 Service Type: Follow up, neurology Patient: Cat Carroll Date of : 1935 (88 y.o.) Assessment ASSESSMENT: Cat Carroll is a 88 y.o. woman who is here for follow up of trigeminal neuralgia. Patient with classic features of left trigeminal neuralgia for 20+ years, initially diagnosed by Dr. Sweet. MRI brain was limited by motion, there is questionable vascular compression but hard to say for sure. She is quite sure she does not want surgical intervention so repeating the MRI is probably not helpful. Failed gabapentin, topiramate. Carbamazepine helped but has caused some hyponatremia and dizziness so she wants to get off of it. Baclofen does help. Between the two the pain is controlled but she has too much dizziness and wants relief from that. Oxcarbazepine is often just as helpful but is actually more likely to cause hyponatremia rather than less so I don't think that's the way to go. Facial nerve blocks are often partly effective (SPG blocks, auriculotemporal blocks, etc), and Botox has some partial efficacy if it can get covered by insurance although the data is somewhat limited for that. She is not interested in injection approaches at this time. We decided on cross-titrating over from carbamazepine to lamotrigine which has less dizziness and eliminates the hyponatremia issue. Carbamazepine induces lamotrigine metabolism so higher doses are used initially than in a normal titration; weaning off the carbamazepine will increase lamotrigine levels so will basically be acting as a continued dose increase after the lamotrigine titration ends. We may end up splitting into BID dosing depending on her pain levels. Follows with Dr. Navarro for chronic low back pain and spinal stenosis. Problems addressed in this visit: 1. Trigeminal neuralgia of left side of face PLAN: Medications: cross titrate lamotrigine/carbamazepine. Weeks 1/2 lamotrigine 50mg daily. Weeks 3/4 lamotrigine 100mg daily. Weeks 5/6 lamotrigine 200mg daily, carbamazepine reduce to 100mg TID. Weeks 7+: lamotrigine 200mg daily, carbamazepine OFF. Labs: none Imaging: none Other: none Follow up: With me in 4 months Attestation: Discussed risks, benefits and alternatives regarding treatment options, and diagnoses with Ms. Carroll. Answered questions and we discussed plan at length. I independently reviewed past history, previous clinic notes, lab results, allergies, medications and radiology images which are summarized in this note with annotations wherever appropriate. Time statement: A total of 45 minutes were spent on this encounter. This includes the following patient-centered activities: 1. Preparation for patient's visit (reviewing previous chart, current medical records, previous history, exam, test, procedure, and medications) 2. Face to face encounter obtaining history from the patient/family/caregivers; performing evaluation and examination; ordering medications, tests, or procedures; referring and communicating with other healthcare professionals; counseling and education of the patient/family/caregiver; independently interpreting results (tests, labs, procedures, imaging) and communicating and explaining results to the patient/family/caregiver 3. Coordination of care; preparing and printing discharge instruction and any educational material for the patient and caregivers. Documenting clinical information in the electronic and other health records. Reviewing OARRS as needed. Rocael Mcleod MD Staff Neurologist [facility]# [id number] [id number] [facility] 05/20/23 Subjective Chief Complaint/Reason for Follow Up: trigeminal neuralgia Informant(s): self History of Present Illness: Cat Carroll is a 88 y.o. woman who is here for follow up of trigeminal neuralgia. Initial HPI/Summary (note: parts may be copied from initial HPI or other notes, for ease of reference): Patient of Dr. Mena. From his last visit, 07/08/22: Patient came for follow-up neurological evaluation. She had history of trigeminal neuralgia and diagnosed by Dr. Sweet more than 20 years ago. She also has been evaluated at [facility]. She started gabapentin and later carbamazepine. She thinks that gabapentin caused her to be dizzy and unsteady. Previously she is using gabapentin 400 mg 3 times a day and Topamax 50 mg 3 times a day. She also use misoprostol 100 mcg 3 times a day which caused abdominal upset. She has been on carbamazepine, topiramate, gabapentin, acupuncture, in the past. The acupuncture has helped but caused her $125 for a session and she 3 sessions a week. She was unable to afford it. Her pain is described as sharp shooting electrical pain mainly on the left V2 distribution and previously located left V1. She will have some residual soreness on the left supraorbital area. She denies any history of migraine, sinusitis, hearing loss, tinnitus, vertigo, or dental problems. Cold wind might trigger the pain and occasionally chewing might also cause the pain. No change in vision. No speech difficulty. She has been using carbamazepine 250 mg 3 times a day. She feels occasional twinges but not as severe as before. No new symptoms since last visit. Past medical history include hypertension, hyperlipidemia, coronary artery disease, osteoarthritis, tremors, Kelly's esophagus, chronic kidney disease, fibromyalgia, gastroesophageal reflux disorder, macular degeneration. No tobacco, alcohol, or recreational drug use. Family history is negative for trigeminal neuralgia but positive for tremors. History since last visit: After last visit had some hyponatremia issues. Baclofen cut down due to drowsiness. She feels that her pain is controlled mostly by baclofen and the carbamazepine does nothing but make her dizzy. She is actually not having much facial pain right now but is frustrated by feeling dizzy and off balance. She has had several falls. Walks using a walker although that is also due to her back pain issues. Having a lot of low back pain radiating into the anterior thighs. Seems to be on both sides. Follows with Dr. Navarro for this. Review of Systems: All systems reviewed and negative except those documented in the History of Present Illness (HPI). Pertinent positives are documented below: + facial pain + low back pain Medical/Surgical/Social/Family Histories: Reviewed. Changes made where necessary. She has a past medical history of Arthritis, Kelly's 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 (2014), Benign carcinoid tumor of the duodenum (2014), Cancer (HCC), Chronic kidney disease (CKD), stage III (moderate) (HCC) (09/12/2016), Fibromyalgia, Floating kidney, GERD (gastroesophageal reflux disease) (2009), Hypertension (1999), Macular degeneration (2017), Myocardial infarction (HCC) (08/2018), Osteoporosis (2009), Trigeminal neuralgia of left side of face (2004), Vertigo, and Vitamin D deficiency (2015). She has a past surgical history that includes Egd (01/01/2015); Egd (08/2014); Dilatation And Curettage (D And C) (1969); Hysterectomy (1974); Cholecystectomy; Kidney surgery (1968); Bladder repair (1989); Lumpectomy (Left, 1989); Cyst Removal (Right, 1999); Knee surgery (Left, 1997); Squamous cell carcinoma excision; Fracture surgery (Right); Cataract Ext/Ecce (Bilateral, 2011); Total knee arthroplasty (Left, 2012); Back surgery (2013); Tumor removal (2011); Esophagogastroduodenoscopy (01/04/2018); hc left heart cath (N/A, 08/23/2018); and Orif Hip Gamma Nail (Right, 04/02/2020). She family history includes Bipolar disorder in her daughter; Dementia in her sister; Diabetes in her brother, maternal uncle, mother, sister, and son; Heart disease in her brother, father, and mother; Stroke in her father. She reports that she quit smoking about 47 years ago. Her smoking use included cigarettes. She has never used smokeless tobacco. She reports that she does not drink alcohol and does not use drugs. Allergies: Allergies: Aspirin; Bacitracin zinc-polymyxin b; Codeine; Gabapentin; Latex, natural rubber; Gvrzapxx-rpyedlybsqi-fxaoggncd; Adhesive tape-silicones; Bacitracin; Hydrocortisone; Lidocaine; and Neomycin HOME Medications: Current Outpatient Medications Medication Instructions aspirin (ECOTRIN ORAL) Oral atorvastatin (LIPITOR) 40 mg, Oral, Nightly baclofen (LIORESAL) 20 mg, Oral, 3 times daily carBAMazepine (TEGRETOL) 200 mg, Oral, 3 times daily colestipoL (COLESTID) 1 gram tablet No dose, route, or frequency recorded. D-MANNOSE ORAL diphenhydrAMINE-acetaminophen (TYLENOL PM) 25-500 mg Tab 2 tablets, Oral, Nightly PRN DULoxetine (CYMBALTA) 60 mg, Oral, At bedtime estradioL (ESTRACE) 2 g, Vaginal, Daily furosemide (LASIX) 20 mg, Oral, 2 times daily lamoTRIgine (LAMICTAL) 100 MG tablet 50 mg (half tab) daily weeks 1 and 2, 100 mg (one tab) daily weeks 3 and 4, 200 mg thereafter losartan (COZAAR) 50 mg, Oral, Daily methadone (DOLOPHINE) 5 mg, Oral, 2 times daily, (Days supply per fill: 30) methadone (DOLOPHINE) 5 mg, Oral, 2 times daily, (Days supply per fill: 30) metoprolol succinate (TOPROL-XL) 50 mg, Oral, At bedtime MULTIVIT-MIN/IRON/FOLIC/LUTEIN (CENTRUM SILVER WOMEN ORAL) 1 tablet, Oral, Daily naloxone (NARCAN) 4 mg/actuation Amanda Administer 1 spray into one nostril for known or suspected opioid overdose. If patient worsens or does not respond, may repeat in 2-3 minutes. nitroGLYCERIN (NITROSTAT) 0.4 mg, Sublingual, Every 5 min PRN, , if no relief after 3 doses call 911 spironolactone (ALDACTONE) 25 mg, Oral, Daily sulfamethoxazole-trimethoprim (BACTRIM DS,SEPTRA DS) 800-160 mg per tablet 1 tablet, Oral, 2 times daily UNIV COMP RX: AMITRIPTYLINE 2%, BACLOFEN 2%, GABAPENTIN 5%, LIDOCAINE 5% EMOLLIENT CREAM 0.5 g, Topical, 3 times daily PRN vibegron (Gemtesa) 75 mg Tab Oral Objective OBJECTIVE: Physical Examination: BP (!) 161/82 (BP Location: Right arm, Patient Position: Sitting, BP Cuff Size: Adult) Pulse 72 Resp 16 Wt 59.4 kg (130 lb 14.4 oz) SpO2 98% BMI 22.47 kg/m GENERAL: General Appearance: In NAD HEENT: Normocephalic. No conjunctival injection. Ears appear normal. No substantial sinus drainage. See below for vision/hearing Neck: Supple, no focal bony tenderness, no mass lesions Respiratory Effort: Normal Extremities: No edema Skin: No rashes visualized MSK: No joint deformities Neurologic Exam: MENTAL STATUS: Alertness, Attention Span & Concentration: Normal Language: Normal Speech: Normal Orientation: Oriented to person, place, time/date, and situation Memory, Recent & Remote: Normal Fund of Knowledge: Normal CRANIAL NERVES: II - Visual Leos: Normal II, III: Pupils: PERRL, no RAPD III, IV, : Eye Movements: Normal (EOMI, No ptosis, No nystagmus) V - Facial Sensation: slightly more sensitive on the left face than the right. VII: Face Symmetry & Strength: Normal VIII - Hearing: Normal to finger rub bilaterally IX, X - Palate: Normal, elevates symmetrically XI - Shoulder Shrug: Normal XII - Tongue Protrusion: Normal, symmetric MOTOR: Muscle Strength Right Left 5 Shoulder Abduction (Deltoid) 5 5 Elbow Flexion (Biceps) 5 5 Elbow Extension (Triceps) 5 5 Wrist Flexion 5 5 Wrist Extension 5 5 Finger Abduction (Interossei) 5 Right Left 4 Hip Extension 4 4 Hip Flexion (Iliopsoas) 4 5 Knee Extension (Quads) 5 5 Knee Flexion (Hamstrings) 5 5 Dorsiflexion (Anterior Tibialis) 5 5 Plantar Flexion (Gastrocnemius) 5 MOTOR AVILA: 5 Normal (Normal Power) 4 Mild Weakness (Movement against moderate resistance over a full range of motion) 3 Moderate Weakness (Movement against gravity only over almost full range of motion) 2 Severe Weakness (Movement with gravity eliminated over almost full range of motion) 1 Trace Movement (Contraction visible or palpable without effective movement of the joint) 0 No Movement (No contraction visible or palpable) MARGUERITE Unable to Assess Normal Bulk and Tone, no atrophy. Hips limited by back pain. SENSATION: Fine Touch: Normal Pinprick: Normal REFLEXES: Right Reflexes Left 2+ Biceps 2+ 2+ Triceps 2+ 2+ Brachioradialis 2+ 1+ Patellar 1+ 1+ Achilles 1+ Down Plantar Response (Babinski) Down REFLEXES AVILA: 4+ Sustained Clonus 3+ Brisk 2+ Normal 1+ Diminished 0 Absent MARGUERITE Unable to Assess COORDINATION: Coordination [id number]: Mild intention tremor bilaterally Cabrera Finger taps: normal Coordination [id number]: normal Diadochokinesis: normal STANCE AND GAIT: Base/Stance: Normal/ narrow base Gait: Normal with regards to heel strike, stride length, madhu, turn, and arm swing Gait Aid Used During Exam: None Gait Assistance Required During Exam: None MOVEMENT DISORDERS EXAMINATION: Tremor - no tremors noted Bradykinesia - None Rigidity - None Dyskinesia/Choreoathetosis - None Dystonia/Myoclonus/Tics - None PRIOR TESTING: Brain MRI/MRA w/o 02/25/19 1. Nonspecific white matter changes may represent small-vessel ischemic disease in a patient of this age. Areas of encephalomalacia in the cerebellum may reflect remote ischemic injury. There is no evidence of acute ischemic injury. 2. Limited evaluation of the posterior fossa due to patient motion on the high-resolution axial T2 weighted images. A flow void does appear to at least abut the inner aspect of the proximal cisternal segment of the left trigeminal nerve. Brain MRA: There are multifocal areas with attenuated flow related signal along the anterior and posterior circulation thought to largely e due to artifact. However, diminished flow can not be excluded. Most recent BMP 05/18/22 with Na 136, Cr 0.99, otherwise normal. Last CBZ level 7.5. Last Vit D 71. documented in this encounter [facility] 05-19-2023 Note Addended by: CLAUDINE MAJANO on: 05/19/2023 01:07 PM Modules accepted: Orders [facility] 05-19-2023 Note Addended by: CLAUDINE MAJANO on: 05/19/2023 01:07 PM Modules accepted: Orders [facility] 05-19-2023 Miscellaneous Notes Addended by: CLAUDINE MAJANO on: 05/19/2023 01:07 PM Modules accepted: Orders documented in this encounter [facility] 05-19-2023 Telephone encounter Note Last OV 05/11/23. Next OV 08/06/23. [facility] 05-19-2023 Miscellaneous Notes Last OV 05/11/23. Next OV 08/06/23. documented in this encounter [facility] 05-11-2023 Evaluation + Plan note Associated Problem(s): Medicare annual wellness visit, subsequent Does all ADLs, iADLs Has had hearing aids and has been wearing them with no concerns. Having difficulty driving at night , wears glasses. Continues to follow-up with ophthalmology, no concern for memory dementia symptoms. Moderate risk falls and alternate between walker and cane Wishes to be DNR , forms given Has appointed both her kids as her DPOA for medical decision [facility] 05-11-2023 Miscellaneous Notes Associated Problem(s): Medicare annual wellness visit, subsequent Does all ADLs, iADLs Has had hearing aids and has been wearing them with no concerns. Having difficulty driving at night , wears glasses. Continues to follow-up with ophthalmology, no concern for memory dementia symptoms. Moderate risk falls and alternate between walker and cane Wishes to be DNR , forms given Has appointed both her kids as her DPOA for medical decision Associated Problem(s): Moderate major depression (HCC) Her increasing Cymbalta today to 60 mg given worsening depression symptoms. Follow-up in 1 to 2 months. Associated Problem(s): 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-sided sciatica Following up with pain specialist Dr. Renae, updating MRI recently. Continue on methadone 5 mg twice daily, appreciate recommendations. Continue to monitor Associated Problem(s): Chronic bronchitis (HCC) Currently on Flovent that she takes regularly, no increased shortness of breath, has been feeling the start of URI symptoms recently but otherwise no worsening symptoms. Continue to monitor with Flovent Associated Problem(s): Carcinoid tumor of small intestine No current flareups or any future follow-ups, used to follow-up with Dr. Zavala, currently stable with no concerns. Associated Problem(s): Leg swelling Increasing lasix to 40 mg twice a day for one week Repeat blood work in 1-2 weeks to check kidney functions Compression stocking and continue elevating legs whenever you can MEENAKSHI ordered , continue aspirin and statin Associated Problem(s): Hypertension Goal <140/90 Continue on losartan 50 mg and spironolactone 25 mg , potentially increase dose Associated Problem(s): At moderate risk for fall Having the cane on hand helping with the balance Associated Problem(s): URI (upper respiratory infection) Sinusitis Tylenol prn for pain/fever -Saline nasal rinses BID or sam pod -Antihistamine claritin, zyrtec or michael to help with congestion -Flonase daily -Use mucinex for mucous thinning as needed -Hydration, air humidifier and rest promoted. documented in this encounter [facility] 05-11-2023 Evaluation + Plan note Associated Problem(s): Moderate major depression (HCC) Her increasing Cymbalta today to 60 mg given worsening depression symptoms. Follow-up in 1 to 2 months. [facility] 05-11-2023 Evaluation + Plan note Associated Problem(s): 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-sided sciatica Following up with pain specialist Dr. Renae, updating MRI recently. Continue on methadone 5 mg twice daily, appreciate recommendations. Continue to monitor [facility] 05-11-2023 Evaluation + Plan note Associated Problem(s): Chronic bronchitis (HCC) Currently on Flovent that she takes regularly, no increased shortness of breath, has been feeling the start of URI symptoms recently but otherwise no worsening symptoms. Continue to monitor with Flovent [facility] 05-11-2023 Evaluation + Plan note Associated Problem(s): Carcinoid tumor of small intestine No current flareups or any future follow-ups, used to follow-up with Dr. Zavala, currently stable with no concerns. [facility] 05-11-2023 Evaluation + Plan note Associated Problem(s): Leg swelling Increasing lasix to 40 mg twice a day for one week Repeat blood work in 1-2 weeks to check kidney functions Compression stocking and continue elevating legs whenever you can MEENAKSHI ordered , continue aspirin and statin [facility] 05-11-2023 Evaluation + Plan note Associated Problem(s): Hypertension Goal <140/90 Continue on losartan 50 mg and spironolactone 25 mg , potentially increase dose [facility] 05-11-2023 Evaluation + Plan note Associated Problem(s): At moderate risk for fall Having the cane on hand helping with the balance [facility] 05-11-2023 Evaluation + Plan note Associated Problem(s): URI (upper respiratory infection) Sinusitis Tylenol prn for pain/fever -Saline nasal rinses BID or sam pod -Antihistamine claritin, zyrtec or michael to help with congestion -Flonase daily -Use mucinex for mucous thinning as needed -Hydration, air humidifier and rest promoted. [facility] 05-11-2023 History of Present illness Narrative Subjective: Cat Carroll is a 87 y.o. female here for a Medicare Annual Wellness Visit. HPI Has PMH of prediabetes, coronary artery disease, IA previous, trigeminal neuralgia and chronic low back pain, Kelly's esophagus, fibromyalgia as well as urinary incontinence. Has been feeling down and depressed since her cat got sick in the past 2 months. Denies any SI or HI Also worried and concerned about her kids health as her daughter is bipolar and trying to manage her mental health and her diabetic son is also trying to work on it with his doctor. Has not been on any antidepressants in the past but open to the idea. 03/27: Since the last visit found that her cat was depressed and had to relocate him to another house, was started on Cymbalta 30 mg which seems to help with her sleeping mixing it with melatonin but has been getting bad dreams and wondering if it Could be a side effect of the medication. 05/10: Has Been Doing Well on the Cymbalta but Feels That It Needs Increased since She Had to Let Go of Her cat recently. Has been her continued for 8 years unable to sleep without hip. Chronic back pain: Has had lumbar spondylosis and degenerative disc disease after failed back surgery with posterior fusion of L5-S1, has been established with Dr. Renae the pain specialist after following for years with palliative medicine on methadone. At this point she is on methadone 5 mg twice daily as needed and going in for another MRI and possibly a back injection depending on how she feels back on the methadone. Trigeminal neuralgia: Chronic along with neuropathy symptoms and trigeminal neuropathy, currently on carbamazepine which seems to relatively control her symptoms but having hyponatremia with that. Following up with neurology for it. Mild systolic dysfunction: Echo last known LVEF of 45 to 50%, repeat echo shows improvement in LVEF of 59% done in September 2022. Continue metoprolol succinate 50 mg daily, losartan 100 mg daily Denies any symptoms of chest pain or shortness of breath. Swelling in the leg is down with adding low-dose Lasix at 20 mg. 03/27: Has been having increased swelling in the leg starting at a.m. even with compression stockings on that she has all days and sometimes sleeping with them at night. Trying to elevate her legs up during the day and taking her Lasix 20 mg twice daily. She denies any associated shortness of breath or chest pain or dizziness with that. Leg swelling : Has been worse in the past month has been taking her Lasix twice daily and quit doing compression stockings as it seems to hurt her legs all day. Has been elevating her legs up. UTI: For the past week noticing more burning and frequency of urination, wondering if she has another UTI. Review of Systems Reviewed by Provider: Care Team Patient Care Team: Claudine Majano MD as PCP - General (Family Medicine) Marck Peng Jr., DO (Otolaryngology (ENT)) Pharmacy [facility] (DME) [id number] - [place], [place] - [address] [place] [id number] [facility] - [place], [place] - [address] [facility] [address] [facility] [id number] Medicare Risk Assessment Do you have an Advanced Directive (Living Will and/or Durable Power of Security Field Supervisor for Health Care)? If not, would you like more information about Advanced Directives?: Yes What is your exercise level?: None What is your diet?: Regular Can you prepare your own meals?: Yes Do you have trouble with finding transportation?: (!) Yes Because of any health problems, do you need the help of another person with your personal care needs? (For example, eating, bathing, dressing, or getting around the house.): No Does your home have throw rugs, poor lighting or slippery bathtub or shower?: None of the above Does your home have grab bars in bathrooms or handrails on stairs and steps?: Both grab bars in the Bathroom and Handrails on the stairs During the past four weeks, how would you rate your health in general?: Fair Whether or not you use a hearing aid, do you think you have a hearing problem or do others think you have a hearing problem?: (!) Yes Whether or not you use glasses or contacts, do you have difficulty driving, watching television, reading, or doing any of your daily activities because of your eyesight?: (!) Yes In the past six months, have you had an unexplained weight loss of 10 pounds or more?: No Do you take your medications as prescribed?: I do not miss doses of my medications During the past four weeks, how much have you been bothered by emotional problems such as feeling anxious, depressed, irritable, sad, or downhearted and blue?: Not at all During the past four weeks, has your physical and emotional health limited your social activites with family, friends, neighbors, or groups? : Not at all Provider/Supplier Name and Specialty: -Andreina Inman[facility] Majano Falls Risk Assessment Is Patient Ambulatory?: Y Fell in past year: 0 (No) Unsteady when walks: 1 (Yes) Worried about fallin (Yes) Advised to use cane/walker?: 2 (Yes) Type of assistive device: Cane Holds onto furniture/case: 1 (Yes) Uses hands to stand up from a chair: 1 (Yes) Trouble stepping onto curb: 0 (No) Rushes to toilet: 1 (Yes) Lost feeling in feet: 0 (No) Medicine makes me light-headed: 1 (Yes) Medicine for sleep or mood: 1 (Yes) Often feel sad/depressed: 0 (No) Patient Self Risk Assessment Score: 9 Have you had your vision checked in the past 12 months?: No Medicare Mini Cog Step 1: Three Word Registration Version Used: Version 3: Village, Kitchen, Baby Step 2: Clock Drawing Step 2 score: Normal clock - 2 points Clock has all numbers placed in the correct sequence & position (e.g., 12, 3, 6 and 9 are in anchor positions) with no missing or duplicate numbers. Hands are pointing to the 11 & 2 (11:10). Hand length is not scored. Step 3: Three Word Recall Record patient's answers to the right: baby kitchen Step 3: Three Word Recall Score: 2 Words Recalled Total score = Word Recall score + Clock Draw score A cut point of <3 on the Mini-Cog has been validated for dementia screening, but many individuals with clinically meaningful cognitive impairment will score higher. A cut point of <4 may indicate a need for further evaluation of cognitive status.: 4 5-Year Plan: Health Maintenance Topic Date Due Pneumococcal Vaccine: Age 65+ (1 of 2 - PCV) Never done Zoster Vaccines (1 of 2) Never done Diabetic Eye Exam 05/14/2022 Sequential Influenza Vaccine (1) 11/07/2022 COVID-19 Vaccine ( season) 2022 Wellness Visit 02/11/2023 A1C 04/26/2023 Lipid Panel 10/25/2023 Urine Microalbumin 10/25/2023 Depression Remission Assessment (PHQ9) 12/22/2023 Falls Risk Assessment 05/10/2024 Tetanus: Every 10yrs 12/14/2032 Dexa Scan Addressed Diabetic Foot Exam Discontinued Immunization History Administered Date(s) Administered Influenza IIV3 high dose 65 and Older 01/04/2017 Influenza TIV (IM) 12/10/2016 Influenza, high dose seasonal 11/20/2014, 11/14/2015, 12/10/2016 Pfizer 12+ Years [id number]-sucrose COVID-19 vaccine 07/23/2021 Pfizer SARS-CoV-2 Vaccination 11/01/2020, 11/22/2020 Tdap 12/14/2022 Objective: BP (!) 146/76 (BP Location: Right arm, Patient Position: Sitting, BP Cuff Size: Adult) Pulse 67 Temp 98 F (36.7 C) (Temporal) Resp 16 Ht 5' 4 Wt 60.3 kg (133 lb) SpO2 97% BMI 22.83 kg/m Hearing/Vision Screen No results found. Physical Exam Constitutional: General: She is not in acute distress. Appearance: She is not ill-appearing. HENT: Head: Normocephalic and atraumatic. Right Ear: Tympanic membrane, ear canal and external ear normal. Left Ear: Tympanic membrane, ear canal and external ear normal. Nose: Congestion present. Mouth/Throat: Mouth: Mucous membranes are moist. Pharynx: Oropharynx is clear. Posterior oropharyngeal erythema present. No oropharyngeal exudate. Eyes: Extraocular Movements: Extraocular movements intact. Conjunctiva/sclera: Conjunctivae normal. Pupils: Pupils are equal, round, and reactive to light. Cardiovascular: Rate and Rhythm: Normal rate and regular rhythm. Pulses: Normal pulses. Heart sounds: Normal heart sounds. No murmur heard. No gallop. Pulmonary: Effort: Pulmonary effort is normal. Breath sounds: Normal breath sounds. No wheezing, rhonchi or rales. Chest: Chest wall: No tenderness. Abdominal: General: Abdomen is flat. Bowel sounds are normal. There is no distension. Palpations: Abdomen is soft. There is no mass. Tenderness: There is no abdominal tenderness. There is no right CVA tenderness, left CVA tenderness, guarding or rebound. Musculoskeletal: General: No tenderness. Normal range of motion. Cervical back: Normal range of motion and neck supple. No rigidity. No muscular tenderness. Right lower leg: Edema present. Left lower leg: Edema present. Comments: +1-2 pitting edema bilaterally up to mid legs Lymphadenopathy: Cervical: No cervical adenopathy. Skin: General: Skin is warm. Findings: No erythema or rash. Neurological: General: No focal deficit present. Mental Status: She is alert and oriented to person, place, and time. Sensory: No sensory deficit. Motor: No weakness. Gait: Gait normal. Psychiatric: Mood and Affect: Mood normal. Behavior: Behavior normal. Thought Content: Thought content normal. Judgment: Judgment normal. 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 Zavala, currently stable with no concerns. Respiratory URI (upper respiratory infection) Sinusitis Tylenol prn for pain/fever -Saline nasal rinses BID or sam pod -Antihistamine claritin, zyrtec or michael to help with congestion -Flonase daily -Use mucinex for mucous thinning as needed -Hydration, air humidifier and rest promoted. Chronic bronchitis (HCC) Currently on Flovent that she takes regularly, no increased shortness of breath, has been feeling the start of URI symptoms recently but otherwise no worsening symptoms. Continue to monitor with Flovent Cardiovascular and Mediastinum Hypertension Goal <140/90 Continue on losartan 50 mg and spironolactone 25 mg , potentially increase dose Mild left ventricular systolic dysfunction Nervous and Auditory 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-sided sciatica Following up with pain specialist Dr. Renae, updating MRI recently. Continue on methadone 5 mg twice daily, appreciate recommendations. Continue to monitor Genitourinary Chronic kidney disease (CKD), stage III (moderate) (HCC) Frequent UTI Relevant Medications sulfamethoxazole-trimethoprim (BACTRIM DS,SEPTRA DS) 800-160 mg per tablet Other At moderate risk for fall Having the cane on hand helping with the balance Spinal stenosis, 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 neurogenic claudication Dysuria Relevant Orders Urinalysis with microscopic Urine Aerobic Culture Medicare annual wellness visit, subsequent Does all ADLs, iADLs Has had hearing aids and has been wearing them with no concerns. Having difficulty driving at night , wears glasses. Continues to follow-up with ophthalmology, no concern for memory dementia symptoms. Moderate risk falls and alternate between walker and cane Wishes to be DNR , forms given Has appointed both her kids as her DPOA for medical decision Right ankle swelling Moderate major depression (HCC) Her increasing Cymbalta today to 60 mg given worsening depression symptoms. Follow-up in 1 to 2 months. Relevant Medications DULoxetine (CYMBALTA) 60 MG capsule Other Relevant Orders Basic Metabolic Panel (Completed) Leg swelling Increasing lasix to 40 mg twice a day for one week Repeat blood work in 1-2 weeks to check kidney functions Compression stocking and continue elevating legs whenever you can MEENAKSHI ordered , continue aspirin and statin Relevant Orders US Doppler ankle/brachial index Other Visit Diagnoses At low risk for fall - Primary Chronic systolic heart failure (HCC) Relevant Orders Basic Metabolic Panel Coagulation disorder (HCC) Encounter for follow-up examination after completed treatment for conditions other than malignant neoplasm Relevant Orders US Doppler ankle/brachial index Vaccinations today per orders. Vaccination counseling provided including which vaccinations are to be administered today, their indication(s), and potential side effects. All questions answered. [facility] vaccine information sheet provided for each vaccine administered. Discussed elevated Body Mass Index (BMI): Advised regular exercise. Discussed elevated Body Mass Index (BMI): Advised healthy and appropriate diet. Rationale: Overweight (Findings) BMI Return in about 3 months (around 08/11/2023). Patient Instructions (the written plan) and additional handouts provided to the patient with their After Visit Summary. 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 Chronic bronchitis (HCC) Cardiovascular and Mediastinum Hypertension Goal <140/90 Continue on losartan 50 mg and spironolactone 25 mg , potentially increase dose Mild left ventricular systolic dysfunction Nervous and Auditory 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-sided sciatica Genitourinary Chronic kidney disease (CKD), stage III (moderate) (HCC) Frequent UTI Other At moderate risk for fall Having the cane on hand helping with the balance Spinal stenosis, 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 neurogenic claudication Dysuria Relevant Orders Urinalysis with microscopic Urine Aerobic Culture Medicare annual wellness visit, subsequent Right ankle swelling Moderate major depression (HCC) Relevant Medications DULoxetine (CYMBALTA) 60 MG capsule Other Relevant Orders Basic Metabolic Panel Leg swelling Increasing lasix to 40 mg twice a day for one week Repeat blood work in 1-2 weeks to check kidney functions Compression stocking and continue elevating legs whenever you can MEENAKSHI ordered , continue aspirin and statin Relevant Orders US Doppler ankle/brachial index Other Visit Diagnoses At low risk for fall - Primary Chronic systolic heart failure (HCC) Coagulation disorder (HCC) Encounter for follow-up examination after completed treatment for conditions other than malignant neoplasm Relevant Orders US Doppler ankle/brachial index If any referrals were placed at the time of your visit please allow 2 weeks for processing. If you haven't heard from anyone within 2 weeks please contact my office so we can look into the status of your referral. If you were given any labs today please ensure they are completed according to the directions given. Once labs are completed please allow 1-2 weeks for us to receive the results, review them, and let you know what steps, if any, are needed next. If you haven't heard from us after that please call to inquire. If labs were ordered to be done PRIOR to your next visit we will discuss the results at the time of your office visit. If any procedures or imaging studies were ordered that must be prior authorized please give us 2 weeks to get them approved. Once approved someone should call you to schedule them or give you a date and time that they were scheduled for. If you haven't heard anything within 2 weeks of the office visit please call the office so we can look into their status. Customer Service/Billing Questions: [phone] [facility] Assistance: [phone] or [phone] Financial Assistance: [phone] or [phone] Thursday 7 am to 5 pm Thursday 7 am to 5 pm Thursday 7 am to 5 pm Thursday 8 am to 2 pm STEADI Low Risk Patient Instructions: Your Falls Screening today shows that you are at low risk for falls. To further protect yourself from falls and maintain your independence, we recommend: 1. Read through the brochure, What You Can Do to Prevent Falls (from CDC). 2. Go through the brochure, Check for Safety: A Home Fall Prevention Checklist for Older Adults (from CDC), and make changes as recommended. 3. Join a community falls prevention program: Stepping On, a 7-week evidence based program that teaches balance exercises and fall prevention strategies [facility] for older adults, group exercise that teaches [facility] forms that reduce fall risk (weight shifting, postural alignment and control, and coordinated movements of the arms, legs, head, and trunk) Matter of Balance, an evidence based program designed to reduce the fear of falling and increase activity levels of older adults OR an exercise class for strength and balance. 4. Take your Vitamin D with or without Calcium, as determined by your healthcare provider. 5. Get your vision and hearing checked annually. Falls At Home Each year, thousands of older Americans fall at home. Many of them are seriously injured, and some are disabled. In 2011, nearly 23,000 people over age 65 and 2.4 million were treated in emergency departments because of falls. Falls are often due to hazards that are easy to overlook but easy to fix. This checklist will help you find and fix those hazards in your home. The checklist asks about hazards found in each room of your home. For each hazard, the checklist tells you how to fix the problem. At the end of the checklist, you ll find other tips for preventing falls. FLOORS: Look at the floor in each room. Q: When you walk through a room, do you have to walk around furniture? A. Ask someone to move the furniture so your path is clear Q: Do you have throw rugs on the floor? A. Remove the rugs or use double-sided tape or a non-slip backing so the rugs won t slip. Q: Are there papers, books, towels, shoes, magazines, boxes, blankets, or other objects on the floor? A.advertising supervisor things that are on the floor. Always keep objects off the floor. Q: Do you have to walk over or around wires or cords (like lamp, telephone, or extension cords)? A. Coil or tape cords and wires next to the wall so you can t trip over them. If needed, have an machine tool electrician put in another outlet. STAIRS AND STEPS: Look at the stairs you use both inside and outside your home. Q: Are there papers, shoes, books, or other objects on the stairs? A. advertising supervisor things on the stairs. Always keep objects off stairs. Q: Are some steps broken or uneven? A. Fix loose or uneven steps. Q: Are you missing a light over the stairway? A. Have an machine tool electrician put in an overhead light at the top and bottom of the stairs. Q: Do you have only one light switch for your stairs (only at the top or at the bottom of the stairs)? A. Have an machine tool electrician put in a light switch at the top and bottom of the stairs. You can get light switches that glow. Q: Has the stairway light bulb burned out? A. Have a friend or family member change the light bulb. Q: Is the carpet on the steps loose or torn? A. Make sure the carpet is firmly attached to every step, or remove the carpet and attach non-slip rubber treads to the stairs. Q: Are the handrails loose or broken? Is there a handrail on only one side of the stairs? A. Fix loose handrails or put in new ones. Make sure handrails are on both sides of the stairs and are as long as the stairs. KITCHEN: Look at your kitchen and eating area. Q: Are the things you use often on high shelves? A. Move items in your cabinets. Keep things you use often on the lower shelves (about waist level). Q: Is your step stool unsteady? A. If you must use a step stool, get one with a bar to hold on to. Never use a chair as a step stool. BATHROOMS: Look at all your bathrooms. Q: Is the tub or shower floor slippery? A. Put a non-slip rubber mat or self-stick strips on the floor of the tub or shower. Q: Do you need some support when you get in and out of the tub or up from the toilet? A. Have grab bars put in next to and inside the tub and next to the toilet. BEDROOMS: Look at all your bedrooms. Q: Is the light near the bed hard to reach? A. Place a lamp close to the bed where it s easy to reach. Q: Is the path from your bed to the bathroom dark? A. Put in a night-light so you can see where you re walking. Some night-lights go on by themselves after dark. Other Things You Can Do to Prevent Falls Do exercises that improve your balance and make your legs stronger. Exercise also helps you feel better and more confident. Have your doctor or pharmacist look at all the medicines you take, even oeko-ees-dcgybdu medicines. Some medicines can make you sleepy or dizzy. Have your eyes checked by an eye doctor at least once a year and update your glasses. Get up slowly after you sit or lie down. Wear shoes both inside and outside the house. Avoid going barefoot or wearing slippers. Improve the lighting in your home. Put in brighter light bulbs. Florescent bulbs are bright and cost less to use. It s safest to have uniform lighting in a room. Add lighting to dark areas. Hang lightweight curtains or shades to reduce glare. [place] a contrasting color on the top edge of all steps so you can see the stairs better. For example, use a light color paint on dark wood. To access this brochure online, please visit the CDC website at http://www.cdc.gov/steadi/pdf/check_fo r_safety_brochure-a.pdf Chair Rise Exercise What it does: Strengthens the muscles in your thighs & buttocks. Goal: To do this exercise without using your hands as you become stronger. How to do it: 1. Sit toward the front of a sturdy chair with your knees bent & feet flat on the floor shoulder-width apart 2. Rest your hands lightly on the seat on either side of you, keeping your back & neck straight & and chest slightly forward. 3. Breathe in slowly. Lean forward & feel your weight on the front of your feet. 4. Breathe out and slowly stand up, using your hands as little as possible. 5. Pause for a full breath in & out. 6. Breathe in as you slowly sit down. Do not let yourself collapse back down into the chair. Rather, control your lowering as much as possible. 7. Breathe out. Repeat 10-15 times. If this number is too hard for you when you first start practicing this exercise, begin with fewer and work up to this number. Rest for a minute & then do a final set of 10-15. For detailed instructions, please visit the CDC website at http://www.cdc.gov/steadi/pdf/chair_ri se_exercise-a.pdf Stepping On is an evidence based program proven to reduce falls in older adults. It is a workshop offered once a week for seven weeks. In a small-group setting, you will learn balance exercises and develop specific knowledge and skills to prevent falls. Older adults who should attend are those who: are at risk of falling who have fallen one or more times lives at home are able to walk without the help of another person Local guest experts provide information on exercise, safety, vision, and medications. Classes are offered at [facility]. To find out specifics about a class, please call [phone]. [facility]: Moving for Better Balance involves low impact exercise. The 12-week class is offered for three hours per week and is led by a trained instructor ballroom dancing. It is intended for people aged 60 and older. Participants learn and perform a program of eight forms that progress from easy to more difficult. The program can accommodate persons with various physical conditions. Health Benefits of [facility]: Moving for Better Balance: Improved social and mental well-being, Improved balance and physical functioning, Improved confidence in conducting daily activities, Reduced risk of falling and sustaining associated injuries, and Maintained independence and improved quality of life. To find a [facility] program in your area or additional resources about fall prevention please contact: [facility] Violence and Injury Prevention Program at [phone] or [email or web address] A Matter of Balance: Managing Concerns about Falls is an evidence based program designed to reduce the fear of falling and increase activity levels of older adults. A trained stator connector leads 8 two-hour sessions for small groups of older adults. The class is intended for people 60 and older who are at risk of falling have a fear of falling or restrict activities who have fallen in the past are interested in improving flexibility, balance, and strength. Participants will learn to view falls as controllable, set goals to increase activity levels, and reduce fall risks at home. Classes are offered in all [address] [place] [address] in [place]. For more information about specific classes near you, please visit http://aging.[place].gov/steadyu/resource s/matterofbalance.aspx. documented in this encounter [facility] 04-28-2023 Telephone encounter Note Last OV 03/27/23 (TH). Next OV 05/11/23. [facility] 04-28-2023 Telephone encounter Note ----- Message from IVETTE Cox sent at 04/28/2023 8:46 AM EST ----- Regarding: rx refill MEDICATION REFILL REQUEST: PCP: Claudine Majano MD Patient called 04/28/23 and is requesting a medication refill for - metoprolol succinate (TOPROL-XL) 50 MG 24 hr tablet . This was confirmed from the current medication list found in the patients chart. Supply Requested: # of days: 90 days Method of receiving: Send to pharmacy Last set of flowsheet rows for OARRS report: OARRS/NARxCHECK Report Received and Assessed: 04/22/2023 Date controlled substance agreement signed: 04/22/2023 Date of last drug screen: No data found Functional Assessment: No data found Will this refill be sent to the preferred pharmacy listed below? Yes Preferred pharmacies: [facility] [address] [address] Pt Call Back Number Work Phone Not on file. Patient call back message sent to the primary care clinical pool. IVETTE Cox [facility] 04-28-2023 Miscellaneous Notes Last OV 03/27/23 (TH). Next OV 05/11/23. ----- Message from IVETTE Cox sent at 04/28/2023 8:46 AM EST ----- Regarding: rx refill MEDICATION REFILL REQUEST: PCP: Claudine Majano MD Patient called 04/28/23 and is requesting a medication refill for - metoprolol succinate (TOPROL-XL) 50 MG 24 hr tablet . This was confirmed from the current medication list found in the patients chart. Supply Requested: # of days: 90 days Method of receiving: Send to pharmacy Last set of flowsheet rows for OARRS report: OARRS/NARxCHECK Report Received and Assessed: 04/22/2023 Date controlled substance agreement signed: 04/22/2023 Date of last drug screen: No data found Functional Assessment: No data found Will this refill be sent to the preferred pharmacy listed below? Yes Preferred pharmacies: [facility] - [address] [address] Pt Call Back Number Work Phone Not on file. Patient call back message sent to the primary care clinical pool. IVETTE Cox documented in this encounter [facility] 04-22-2023 History of Present illness Narrative [facility] Interventional Pain Management Office Note Patient Name: Cat Carroll Referring Physician: Claudine Montgomery You* Date of : 1935 PCP: Claudine Majano MD Date of Service: 04/22/23 Assessment & Plan Assessment: Failed back surgery syndrome Posterior fusion, L5-S1 Lumbar spondylosis Lumbar degenerative disease Trigeminal neuralgia Chronic pain syndrome Chronic continuous opioid use Narrative: She presented with chronic low back pain secondary to combination of lumbar spondylosis, lumbar degenerative disease and a component of failed back surgery syndrome following a posterior fusion L5-S1. It appears most of her pain is secondary to adjacent segment disease related to facet arthropathy. We will schedule lumbar medial branch nerve blocks, bilateral L2, L3, L4 x 2 to treat her facet mediated pain. If positive relief following both rounds of test blocks we will move forth a lumbar medial branch nerve radiofrequency ablation, bilateral L2, L3, L4. We will also order an updated MRI of her lumbar spine as her last one was greater than 3 years old. I want to rule out any spinal stenosis. She also is dealing with trigeminal neuralgia and vertigo symptoms. She follows closely with neurology at [facility] for treatment of trigeminal neuralgia and dizziness. I explained that I do not do the blocks for trigeminal neuralgia and she would likely need to be referred to a tertiary center at [facility] in the future if this pain worsens. She was also maintained on methadone 10 mg twice daily by a previous pain provider. She did run out at the end of February. I did discuss that this is a high dose for chronic noncancer pain. She states that is was adequately controlled her pain and she denies any side effects. We will restart methadone at a lower dose of 5 mg twice daily. I would like to remain on this dose and not titrate any higher if possible. EKG 02/2023: Qtc 434 Plan: Medications: Restart Methadone 5 mg BID prn Follow-up: Return in about 2 months (around 06/21/2023) for Follow-up. Compliance OARRS/NARxCheck: OARRS/NARxCHECK Report Received and Assessed: 04/22/23 Date controlled substance agreement signed: 04/22/23 Narcan Rx Ordered: 04/22/23 Opioid Risk Tool: Gender Male or Female: Female Family History of Substance Abuse (Alcohol): None Family History of Substance Abuse (Illegal Drugs): None Family History of Substance Abuse (Prescription Drugs): None Personal History of Substance Abuse (Alcohol): None Personal History of Substance Abuse (Illegal Drugs): None Personal History of Substance Abuse (Prescription Drugs): None History of Preadolescent Sexual Abuse: 0 Psychological Disease: None Psychological Disease (Depression): None Total : 0 Total Score Risk Category: Low Risk (0-3) If chronic opioids were prescribed at today's visit, the risk of chronic opioid therapy was discussed with patient including, but not limited to developing a tolerance, dependence, addiction or the possibility of overdose and even . The patient was instructed not to mix opioids with other sedating medications or substances including benzodiazepines and alcohol. The patient was instructed to only take medication as prescribed. The patient was instructed not to sell or share medication. The patient was also instructed to lock their medication in a safe location. The goal of opioid therapy is to improve their pain significantly and allow them to more easily perform their ADLs. The goal of maintaining opioid at the lowest effective dose was discussed. All questions were answered. Narcan education was provided and narcan prescription ordered upon initiation of chronic opioid therapy and will offered annually or sooner if patient requests. If procedure was scheduled at today's, the risks of the procedure including, but not limited to, worsening pain, bleeding, infection and nerve injury and headache was discussed with the patient. The benefits of the procedure were also explained which included reductions of pain and improvement in functional status. The patient voiced understanding of the risks and benefits and wishes to proceed with the above procedure. History of Present Illness / Review of Systems Reason for Visit: New patient evaluation Pain location: low back, right leg, and left leg Current pain Level: 5 Best pain Level: 4 Worst pain Level: 9 Pain description: throbbing and aching Radiation: right leg and left leg to the knees Sensory changes: none Motor changes: Yes Duration of pain: >6 months Increases pain: lifting, bek-nd-enxeb, walking, weather changes, and morning Decreases pain: nothing Did the pain result from injury? 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 prior biopsies no dysplasia last biopsies 08/2014 Benign carcinoid tumor of the duodenum 2014 Cancer (HCC) skin cancer-squamous cells removed Chronic kidney disease (CKD), stage III (moderate) ([facility]) 09/12/2016 EGFR 43 Fibromyalgia Floating kidney GERD (gastroesophageal reflux disease) 2010 Hypertension 2000 Macular degeneration 2017 Myocardial infarction ([facility]) 08/2018 STEMI Osteoporosis 2010 Trigeminal neuralgia of left side of face 2005 Vertigo Vitamin D deficiency 2016 Past Surgical History Past Surgical History: Procedure Laterality Date BACK SURGERY 2013 fusion and rods placed in lower back. Rick thompson. Dr Hinds BLADDER REPAIR 1989 CATARACT EXT/ECCE Bilateral 2011 Dr [place] CHOLECYSTECTOMY CYST REMOVAL Right 2000 cyst removal from rt breast-benign DILATION AND CURETTAGE (D AND C) 1970 x 2 EGD 01/01/2015 Dr. ZavalaOlfgdd-Ntrgqlwmu-Ceeupsi's esophagus EGD 08/2014 Dr. Vinicius RamachandranO-Garjtllvt-Tumybai's esophagitis biopsies negative for dysplasia. ESOPHAGOGASTRODUODENOSCOPY 01/04/2018 Dr. Zavala -biopsies performed-Kelly's esophagitis-carcinoid tumor posterior wall duodenum FRACTURE SURGERY Right Plates and screws in rt arm after fracture. dr Dolan [facility] LEFT HEART CATH N/A 08/23/2018 Procedure: Left Heart Cath; Surgeon: Glen Fair MD; Location: CUSTODIAN; Service: Cardiovascular HYSTERECTOMY 1974 KIDNEY SURGERY 1969 had exploratory surgery d/t floating kidney Dx KNEE SURGERY Left 1997 left knee arthoscopy LUMPECTOMY Left 1989 benign ORIF HIP GAMMA NAIL Right 04/02/2020 SQUAMOUS CELL CARCINOMA EXCISION x4 TOTAL KNEE ARTHROPLASTY Left 2012 dr dolan TUMOR REMOVAL 2012 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 Allergies Allergies: Aspirin; Bacitracin zinc-polymyxin b; Codeine; Gabapentin; Latex, natural rubber; Zgqljtec-cueygxbvnkx-cvixybmky; Adhesive tape-silicones; Bacitracin; Hydrocortisone; Lidocaine; and Neomycin Medications Current Outpatient Medications Medication Instructions aspirin (ECOTRIN ORAL) Oral atorvastatin (LIPITOR) 40 mg, Oral, Nightly baclofen (LIORESAL) 20 mg, Oral, 3 times daily carBAMazepine (TEGRETOL) 200 mg, Oral, 3 times daily cephALEXin (KEFLEX) 500 mg, Oral, 3 times daily colestipoL (COLESTID) 1 gram tablet No dose, route, or frequency recorded. D-MANNOSE ORAL diphenhydrAMINE-acetaminophen (TYLENOL PM) 25-500 mg Tab 2 tablets, Oral, Nightly PRN DULoxetine (CYMBALTA) 30 mg, Oral, At bedtime estradioL (ESTRACE) 0.01 % (0.1 mg/gram) vaginal cream insert 1 gram vaginally three times a week BEFORE BEDTIME furosemide (LASIX) 20 mg, Oral, 2 times daily losartan (COZAAR) 50 mg, Oral, Daily meclizine (ANTIVERT) 25 mg, Oral, 3 times daily PRN melatonin 5 mg Tab Oral methadone (DOLOPHINE) 10 mg, Oral, 2 times daily metoprolol succinate (TOPROL-XL) 50 mg, Oral, At bedtime MULTIVIT-MIN/IRON/FOLIC/LUTEIN (CENTRUM SILVER WOMEN ORAL) 1 tablet, Oral, Daily nitroGLYCERIN (NITROSTAT) 0.4 mg, Sublingual, Every 5 min PRN, , if no relief after 3 doses call 911 omeprazole (PRILOSEC) 40 mg, Oral, Daily spironolactone (ALDACTONE) 25 mg, Oral, Daily UNIV COMP RX: AMITRIPTYLINE 2%, BACLOFEN 2%, GABAPENTIN 5%, LIDOCAINE 5% EMOLLIENT CREAM 0.5 g, Topical, 3 times daily PRN vibegron (Gemtesa) 75 mg Tab Oral Social History Social History Socioeconomic History Marital status: Number of children: 2 Years of education: 12 Tobacco Use Smoking status: Former Packs/day: 0 Types: Cigarettes Quit date: 04/03/1976 Years since quittin.0 Smokeless tobacco: Never Vaping Use Vaping Use: Never used Substance and Sexual Activity Alcohol use: No Drug use: No Sexual activity: Never Social Determinants of Health Financial Resource Strain: Low Risk (03/16/2023) Overall Financial Resource Strain (CARDIA) Difficulty of Paying Living Expenses: Not hard at all Food Insecurity: No Food Insecurity (03/16/2023) Hunger Vital Sign Worried About Running Out of Food in the Last Year: Never true Ran Out of Food in the Last Year: Never true Transportation Needs: No Transportation Needs (03/16/2023) PRAPARE - Transportation Lack of Transportation (Medical): No Lack of Transportation (Non-Medical): No Physical Activity: Insufficiently Active (10/15/2021) Exercise Vital Sign Days of Exercise per Week: 2 days Minutes of Exercise per Session: 20 min Stress: Stress Concern Present (10/15/2021) Citizen Of [place] of Occupational Health - Occupational Stress Questionnaire Feeling of Stress : To some extent Social Connections: Moderately Isolated (10/15/2021) Social Connection and Isolation Panel [NHANES] Frequency of Communication with Friends and Family: Twice a week Frequency of Social Gatherings with Friends and Family: Once a week Attends [employer] Services: 1 to 4 times per year Active Member of Clubs or Organizations: No Attends Club or Organization Meetings: Patient declined Marital Status: Housing Stability: Low Risk (10/15/2021) Housing Stability Vital Sign Unable to Pay for Housing in the Last Year: No Number of Places Lived in the Last Year: 1 Unstable Housing in the Last Year: No . Family History family history includes Bipolar disorder in her daughter; Dementia in her sister; Diabetes in her brother, maternal uncle, mother, sister, and son; Heart disease in her brother, father, and mother; Stroke in her father. Physical Exam PACU Vitals 04/22/23 0951 BP: 125/79 Pulse: 76 Resp: 16 SpO2: 97% General: No acute distress, atraumatic Cardiovascular: normal rate, no edema Respiratory: non-labored respirations Psychiatric: appropriate mood and affect Lumbar Spine Exam: Lumbar ROM decreased in extension left rotation right rotation Lumbar paraspinal tenderness noted bilaterally Strength: RLE: Hip Flex 5/5 Knee Flex 5/5 Knee Ext 5/5 Ankle Dorsiflex 5/5 Ankle Plantar Flex 5/5 LLE: Hip Flex 5/5 Knee Flex 5/5 Knee Ext 5/5 Ankle Dorsiflex 5/5 Ankle Plantar Flex 5/5 Axial Loading: positive bilaterally Other Tests Imaging All imaging and tests below were personally reviewed by me unless otherwise indicated. XR lumbar spine 09/02/22: FINDINGS: Five views including lateral flexion and extension. 24 degrees of dextroscoliosis, apex at L2. Status post L5-S1 posterior fusion and decompression. The right L5 transpedicular screw encroaches upon the L4/5 intervertebral disc space. No evidence of hardware loosening. Vertebral body heights are preserved. Severe intervertebral disc space height loss throughout the lumbar spine with endplate osteophytes. The bones are demineralized. Vascular calcifications. IMPRESSION: Status post L5-S1 posterior fusion in similar alignment. Multilevel lumbar spondylosis with 24 degrees of dextroscoliosis, also similar to previous. Thank you for your kind referral. Please do not hesitate to contact me with any questions. Jake Navarro D.O. Interventional Pain Management [facility] [place] This note was generated using Evolve IP voice recognition software in an effort to expedite communication. Please excuse any resultant grammatical or wording errors. Reason for Visit: New patient evaluation Pain location: low back, right leg, and left leg Current pain Level: 5 Best pain Level: 4 Worst pain Level: 9 Pain description: throbbing and aching Radiation: right leg and left leg to the knees Sensory changes: none Motor changes: Yes Duration of pain: >6 months Increases pain: lifting, [id number], walking, weather changes, and morning Decreases pain: nothing Did the pain result from injury? No Previous pain procedures: epidural steroid injections Patient's Goals: decrease pain, decrease pain with activity, improve ability to perform activities of daily living, improve quality of life, improve sleep, stand longer, and walk further Acceptable level of pain: 2 Additional concerns: none Focused Review of Systems: Loss of bladder control: Yes Loss of bowel control: Denies Saddle anesthesia: Denies Recent falls: Denies Constipation: Denies documented in this encounter [facility] 04-22-2023 History of Present illness Narrative [facility] Interventional Pain Management Office Note Patient Name: Cat Carroll Referring Physician: Claudine Montgomery You* Date of : 1935 PCP: Claudine Majano MD Date of Service: 04/22/23 Assessment & Plan Assessment: Failed back surgery syndrome Posterior fusion, L5-S1 Lumbar spondylosis Lumbar degenerative disease Trigeminal neuralgia Chronic pain syndrome Chronic continuous opioid use Narrative: She presented with chronic low back pain secondary to combination of lumbar spondylosis, lumbar degenerative disease and a component of failed back surgery syndrome following a posterior fusion L5-S1. It appears most of her pain is secondary to adjacent segment disease related to facet arthropathy. We will schedule lumbar medial branch nerve blocks, bilateral L1, L2, L3 x 2 to treat her facet mediated pain. If positive relief following both rounds of test blocks we will move forth a lumbar medial branch nerve radiofrequency ablation, bilateral L2, L3, L4. We will also order an updated MRI of her lumbar spine as her last one was greater than 3 years old. I want to rule out any spinal stenosis. She also is dealing with trigeminal neuralgia and vertigo symptoms. She follows closely with neurology at [facility] for treatment of trigeminal neuralgia and dizziness. I explained that I do not do the blocks for trigeminal neuralgia and she would likely need to be referred to a tertiary center at [facility] in the future if this pain worsens. She was also maintained on methadone 10 mg twice daily by a previous pain provider. She did run out at the end of February. I did discuss that this is a high dose for chronic noncancer pain. She states that is was adequately controlled her pain and she denies any side effects. We will restart methadone at a lower dose of 5 mg twice daily. I would like to remain on this dose and not titrate any higher if possible. EKG 02/2023: Qtc 434 Plan: Medications: Restart Methadone 5 mg BID prn Follow-up: Return in about 2 months (around 06/21/2023) for Follow-up. Compliance OARRS/NARxCheck: OARRS/NARxCHECK Report Received and Assessed: 04/22/23 Date controlled substance agreement signed: 04/22/23 Narcan Rx Ordered: 04/22/23 Opioid Risk Tool: Gender Male or Female: Female Family History of Substance Abuse (Alcohol): None Family History of Substance Abuse (Illegal Drugs): None Family History of Substance Abuse (Prescription Drugs): None Personal History of Substance Abuse (Alcohol): None Personal History of Substance Abuse (Illegal Drugs): None Personal History of Substance Abuse (Prescription Drugs): None History of Preadolescent Sexual Abuse: 0 Psychological Disease: None Psychological Disease (Depression): None Total : 0 Total Score Risk Category: Low Risk (0-3) If chronic opioids were prescribed at today's visit, the risk of chronic opioid therapy was discussed with patient including, but not limited to developing a tolerance, dependence, addiction or the possibility of overdose and even . The patient was instructed not to mix opioids with other sedating medications or substances including benzodiazepines and alcohol. The patient was instructed to only take medication as prescribed. The patient was instructed not to sell or share medication. The patient was also instructed to lock their medication in a safe location. The goal of opioid therapy is to improve their pain significantly and allow them to more easily perform their ADLs. The goal of maintaining opioid at the lowest effective dose was discussed. All questions were answered. Narcan education was provided and narcan prescription ordered upon initiation of chronic opioid therapy and will offered annually or sooner if patient requests. If procedure was scheduled at today's, the risks of the procedure including, but not limited to, worsening pain, bleeding, infection and nerve injury and headache was discussed with the patient. The benefits of the procedure were also explained which included reductions of pain and improvement in functional status. The patient voiced understanding of the risks and benefits and wishes to proceed with the above procedure. History of Present Illness / Review of Systems Reason for Visit: New patient evaluation Pain location: low back, right leg, and left leg Current pain Level: 5 Best pain Level: 4 Worst pain Level: 9 Pain description: throbbing and aching Radiation: right leg and left leg to the knees Sensory changes: none Motor changes: Yes Duration of pain: >6 months Increases pain: lifting, [id number], walking, weather changes, and morning Decreases pain: nothing Did the pain result from injury? 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 prior biopsies no dysplasia last biopsies 08/2014 Benign carcinoid tumor of the duodenum 2014 Cancer (HCC) skin cancer-squamous cells removed Chronic kidney disease (CKD), stage III (moderate) ([facility]) 09/12/2016 EGFR 43 Fibromyalgia Floating kidney GERD (gastroesophageal reflux disease) 2010 Hypertension 2000 Macular degeneration 2017 Myocardial infarction ([facility]) 08/2018 STEMI Osteoporosis 2010 Trigeminal neuralgia of left side of face 2005 Vertigo Vitamin D deficiency 2016 Past Surgical History Past Surgical History: Procedure Laterality Date BACK SURGERY 2014 fusion and rods placed in lower back. Rick thompson. Dr Hinds BLADDER REPAIR 1989 CATARACT EXT/ECCE Bilateral 2011 Dr [place] CHOLECYSTECTOMY CYST REMOVAL Right 2000 cyst removal from rt breast-benign DILATION AND CURETTAGE (D AND C) 1970 x 2 EGD 01/01/2015 Dr. AlemanNqlimg-Kditvrhkb-Blndtag's esophagus EGD 08/2014 Dr. Vinicius Pruett-Barrett's esophagitis biopsies negative for dysplasia. ESOPHAGOGASTRODUODENOSCOPY 01/04/2018 Dr. Zavala -biopsies performed-Kelly's esophagitis-carcinoid tumor posterior wall duodenum FRACTURE SURGERY Right Plates and screws in rt arm after fracture. dr Dolan [facility] LEFT HEART CATH N/A 08/23/2018 Procedure: Left Heart Cath; Surgeon: Glen Fair MD; Location: [facility]USTOD[facility]; Service: Cardiovascular HYSTERECTOMY 1974 KIDNEY SURGERY 1969 had exploratory surgery d/t floating kidney Dx KNEE SURGERY Left 1997 left knee arthoscopy LUMPECTOMY Left 1989 benign ORIF HIP GAMMA NAIL Right 04/02/2020 SQUAMOUS CELL CARCINOMA EXCISION x4 TOTAL KNEE ARTHROPLASTY Left 2012 dr dolan TUMOR REMOVAL 2011 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 Allergies Allergies: Aspirin; Bacitracin zinc-polymyxin b; Codeine; Gabapentin; Latex, natural rubber; Kmpkcdyu-gbbjvpiiovp-ppfrsvfej; Adhesive tape-silicones; Bacitracin; Hydrocortisone; Lidocaine; and Neomycin Medications Current Outpatient Medications Medication Instructions aspirin (ECOTRIN ORAL) Oral atorvastatin (LIPITOR) 40 mg, Oral, Nightly baclofen (LIORESAL) 20 mg, Oral, 3 times daily carBAMazepine (TEGRETOL) 200 mg, Oral, 3 times daily cephALEXin (KEFLEX) 500 mg, Oral, 3 times daily colestipoL (COLESTID) 1 gram tablet No dose, route, or frequency recorded. D-MANNOSE ORAL diphenhydrAMINE-acetaminophen (TYLENOL PM) 25-500 mg Tab 2 tablets, Oral, Nightly PRN DULoxetine (CYMBALTA) 30 mg, Oral, At bedtime estradioL (ESTRACE) 0.01 % (0.1 mg/gram) vaginal cream insert 1 gram vaginally three times a week BEFORE BEDTIME furosemide (LASIX) 20 mg, Oral, 2 times daily losartan (COZAAR) 50 mg, Oral, Daily meclizine (ANTIVERT) 25 mg, Oral, 3 times daily PRN melatonin 5 mg Tab Oral methadone (DOLOPHINE) 10 mg, Oral, 2 times daily metoprolol succinate (TOPROL-XL) 50 mg, Oral, At bedtime MULTIVIT-MIN/IRON/FOLIC/LUTEIN (CENTRUM SILVER WOMEN ORAL) 1 tablet, Oral, Daily nitroGLYCERIN (NITROSTAT) 0.4 mg, Sublingual, Every 5 min PRN, , if no relief after 3 doses call 911 omeprazole (PRILOSEC) 40 mg, Oral, Daily spironolactone (ALDACTONE) 25 mg, Oral, Daily UNIV COMP RX: AMITRIPTYLINE 2%, BACLOFEN 2%, GABAPENTIN 5%, LIDOCAINE 5% EMOLLIENT CREAM 0.5 g, Topical, 3 times daily PRN vibegron (Gemtesa) 75 mg Tab Oral Social History Social History Socioeconomic History Marital status: Number of children: 2 Years of education: 12 Tobacco Use Smoking status: Former Packs/day: 0 Types: Cigarettes Quit date: 04/03/1976 Years since quittin.0 Smokeless tobacco: Never Vaping Use Vaping Use: Never used Substance and Sexual Activity Alcohol use: No Drug use: No Sexual activity: Never Social Determinants of Health Financial Resource Strain: Low Risk (03/16/2023) Overall Financial Resource Strain (CARDIA) Difficulty of Paying Living Expenses: Not hard at all Food Insecurity: No Food Insecurity (03/16/2023) Hunger Vital Sign Worried About Running Out of Food in the Last Year: Never true Ran Out of Food in the Last Year: Never true Transportation Needs: No Transportation Needs (03/16/2023) PRAPARE - Transportation Lack of Transportation (Medical): No Lack of Transportation (Non-Medical): No Physical Activity: Insufficiently Active (10/15/2021) Exercise Vital Sign Days of Exercise per Week: 2 days Minutes of Exercise per Session: 20 min Stress: Stress Concern Present (10/15/2021) Citizen Of [place] [employer] Occupational Health - Occupational Stress Questionnaire Feeling of Stress : To some extent Social Connections: Moderately Isolated (10/15/2021) Social Connection and Isolation Panel [NHANES] Frequency of Communication with Friends and Family: Twice a week Frequency of Social Gatherings with Friends and Family: Once a week Attends [employer] Services: 1 to 4 times per year Active Member of Clubs or Organizations: No Attends Club or Organization Meetings: Patient declined Marital Status: Housing Stability: Low Risk (10/15/2021) Housing Stability Vital Sign Unable to Pay for Housing in the Last Year: No Number of Places Lived in the Last Year: 1 Unstable Housing in the Last Year: No . Family History family history includes Bipolar disorder in her daughter; Dementia in her sister; Diabetes in her brother, maternal uncle, mother, sister, and son; Heart disease in her brother, father, and mother; Stroke in her father. Physical Exam PACU Vitals 04/22/23 0951 BP: 125/79 Pulse: 76 Resp: 16 SpO2: 97% General: No acute distress, atraumatic Cardiovascular: normal rate, no edema Respiratory: non-labored respirations Psychiatric: appropriate mood and affect Lumbar Spine Exam: Lumbar ROM decreased in extension left rotation right rotation Lumbar paraspinal tenderness noted bilaterally Strength: RLE: Hip Flex 5/5 Knee Flex 5/5 Knee Ext 5/5 Ankle Dorsiflex 5/5 Ankle Plantar Flex 5/5 LLE: Hip Flex 5/5 Knee Flex 5/5 Knee Ext 5/5 Ankle Dorsiflex 5/5 Ankle Plantar Flex 5/5 Axial Loading: positive bilaterally Other Tests Imaging All imaging and tests below were personally reviewed by me unless otherwise indicated. XR lumbar spine 09/02/22: FINDINGS: Five views including lateral flexion and extension. 24 degrees of dextroscoliosis, apex at L2. Status post L5-S1 posterior fusion and decompression. The right L5 transpedicular screw encroaches upon the L4/5 intervertebral disc space. No evidence of hardware loosening. Vertebral body heights are preserved. Severe intervertebral disc space height loss throughout the lumbar spine with endplate osteophytes. The bones are demineralized. Vascular calcifications. IMPRESSION: Status post L5-S1 posterior fusion in similar alignment. Multilevel lumbar spondylosis with 24 degrees of dextroscoliosis, also similar to previous. Thank you for your kind referral. Please do not hesitate to contact me with any questions. Jake Navarro D.O. Interventional Pain Management [facility] This note was generated using Evolve IP voice recognition software in an effort to expedite communication. Please excuse any resultant grammatical or wording errors. Reason for Visit: New patient evaluation Pain location: low back, right leg, and left leg Current pain Level: 5 Best pain Level: 4 Worst pain Level: 9 Pain description: throbbing and aching Radiation: right leg and left leg to the knees Sensory changes: none Motor changes: Yes Duration of pain: >6 months Increases pain: lifting, [id number], walking, weather changes, and morning Decreases pain: nothing Did the pain result from injury? No Previous pain procedures: epidural steroid injections Patient's Goals: decrease pain, decrease pain with activity, improve ability to perform activities of daily living, improve quality of life, improve sleep, stand longer, and walk further Acceptable level of pain: 2 Additional concerns: none Focused Review of Systems: Loss of bladder control: Yes Loss of bowel control: Denies Saddle anesthesia: Denies Recent falls: Denies Constipation: Denies documented in this encounter [facility] 03-31-2023 History of Present illness Narrative Images from the original note were not included. Claudine Majano MD Keck, Michelle, MA 1 month f/u can be seen on upcoming appointment. No then she should be fine to wait till 10 May. Thank you Viv, please just let her know I called pt ano answer I LMOM appt for 05/07/23 cancelled will keep the appt for 05/11/23 Telephone Visit Via Phone Call [facility] [address] [place] [address] [facility] [address] [place] [phone] Telephone Visit [facility] 03/27/2023 Claudine Majano MD Provider Location: [address] [place] [address] Patient Location [employer] Operator: None Patient Location: Patient's Home Patient: Cat Carroll Date of : 1935 (87 y.o. female) PCP: Claudine Majano MD I discussed risks, benefits and alternatives of a telephone visit telemedicine consultation with the patient (and any accompanying persons) including the risks that the patient's personal health details and medical records will be discussed over real-time, synchronous, interactive audio technology, the visit will not be recorded without the express consent of both the provider and the patient, and that there are inherent diagnostic limitations compared to [id number] evaluations. We elected to proceed with the telephone visit telemedicine consultation. MAR Carroll is a 87 y.o. female presenting today for multiple concerns. Former patient of Gisell Desai. Has PMH of prediabetes, coronary artery disease, IA previous, trigeminal neuralgia and chronic low back pain, Kelly's esophagus, fibromyalgia as well as urinary incontinence. Has been feeling down and depressed since her cat got sick in the past 2 months. Denies any SI or HI Also worried and concerned about her kids health as her daughter is bipolar and trying to manage her mental health and her diabetic son is also trying to work on it with his doctor. Has not been on any antidepressants in the past but open to the idea. 03/27: Since the last visit found that her cat was depressed and had to relocate him to another house, was started on Cymbalta 30 mg which seems to help with her sleeping mixing it with melatonin but has been getting bad dreams and wondering if it Could be a side effect of the medication. Mild systolic dysfunction: Echo last known LVEF of 45 to 50%, repeat echo shows improvement in LVEF of 59% done in September 2022. Continue metoprolol succinate 50 mg daily, losartan 100 mg daily Denies any symptoms of chest pain or shortness of breath. Swelling in the leg is down with adding low-dose Lasix at 20 mg. 03/27: Has been having increased swelling in the leg starting at a.m. even with compression stockings on that she has all days and sometimes sleeping with them at night. Trying to elevate her legs up during the day and taking her Lasix 20 mg twice daily. She denies any associated shortness of breath or chest pain or dizziness with that. The following portions of the patient's history were reviewed and updated as appropriate: allergies, current medications, past family history, past medical history, past social history, past surgical history, and problem list. Review of Systems Patient's Medications New Prescriptions No medications on file Previous Medications ASPIRIN (ECOTRIN ORAL) Take by mouth . ATORVASTATIN (LIPITOR) 40 MG TABLET Take 1 (one) tablet (40 mg total) by mouth nightly . BACLOFEN (LIORESAL) 20 MG TABLET Take 1 (one) tablet (20 mg total) by mouth 3 (three) times a day . CARBAMAZEPINE (TEGRETOL) 200 MG TABLET TAKE 1 TABLET THREE TIMES A DAY CEPHALEXIN (KEFLEX) 500 MG CAPSULE Take 1 (one) capsule (500 mg total) by mouth 3 (three) times a day . COLESTIPOL (COLESTID) 1 GRAM TABLET D-MANNOSE ORAL DIPHENHYDRAMINE-ACETAMINOPHEN (TYLENOL PM) 25-500 MG TAB Take 2 (two) tablets by mouth nightly as needed . DULOXETINE (CYMBALTA) 30 MG CAPSULE Take 1 (one) capsule (30 mg total) by mouth at bedtime . ESTRADIOL (ESTRACE) 0.01 % (0.1 MG/GRAM) VAGINAL CREAM insert 1 gram vaginally three times a week BEFORE BEDTIME FUROSEMIDE (LASIX) 20 MG TABLET Take 1 (one) tablet (20 mg total) by mouth 2 (two) times a day . LOSARTAN (COZAAR) 50 MG TABLET Take 1 (one) tablet (50 mg total) by mouth daily . MECLIZINE (ANTIVERT) 25 MG TABLET Take 1 (one) tablet (25 mg total) by mouth 3 (three) times a day as needed for nausea . MELATONIN 5 MG TAB Take by mouth . METHADONE (DOLOPHINE) 5 MG TABLET Take 2 (two) tablets (10 mg total) by mouth 2 (two) times a day . METOPROLOL SUCCINATE (TOPROL-XL) 50 MG 24 HR TABLET Take 1 (one) tablet (50 mg total) by mouth at bedtime . MULTIVIT-MIN/IRON/FOLIC/LUTEIN (CENTRUM SILVER WOMEN ORAL) Take 1 tablet by mouth daily. NITROGLYCERIN (NITROSTAT) 0.[address] 1 (one) tablet (0.4 mg total) under the tongue every 5 (five) minutes as needed for chest pain , if no relief after 3 doses call 911 . OMEPRAZOLE (PRILOSEC) 40 MG CAPSULE Take 1 (one) capsule (40 mg total) by mouth daily . UNIV COMP RX: AMITRIPTYLINE 2%, BACLOFEN 2%, GABAPENTIN 5%, LIDOCAINE 5% EMOLLIENT CREAM Apply 0.5 g topically 3 (three) times a day as needed . VIBEGRON (GEMTESA) 75 MG TAB Take by mouth . Modified Medications No medications on file Discontinued Medications No medications on file Assessment/Plan: Problem List Items Addressed This Visit Cardiovascular and Mediastinum Hypertension Relevant Medications spironolactone (ALDACTONE) 25 MG tablet Other Relevant Orders Comprehensive Metabolic Panel Mild left ventricular systolic dysfunction Improvement of LVEF from 45-50% to 59% in September 2022. Continue on metoprolol 50 mg daily as well as losartan, in addition to Lasix 20 mg twice daily that she had on. Adding spironolactone 25 mg today given increased swelling and both lower extremities with in person check in 1 to 2 months which was hard to assess volume overload today virtually. Repeat blood work and monitoring blood pressure on the new spironolactone in 2 weeks. Relevant Medications spironolactone (ALDACTONE) 25 MG tablet Other Relevant Orders Comprehensive Metabolic Panel Other Moderate major depression (HCC) - Primary Cymbalta was added last visit a month ago to help with chronic pain and at the same time help with sleeping and depression with general mood. Discussed with patient in regards to the bad dream that she can hold Cymbalta for 2 to 3 days and see if it makes any difference or try not to mix it with melatonin. That could also be a side effect of the melatonin by itself and she will try to alternate each at the time to see if it affects the bad dreams. Potentially switching off Cymbalta to a different medication. Counseling can also be considered in the future visits. I have spent 21 minutes with the patient reviewing the HPI and Plan of Care. documented in this encounter [facility] 03-27-2023 Evaluation + Plan note Associated Problem(s): Mild left ventricular systolic dysfunction Improvement of LVEF from 45-50% to 59% in September 2022. Continue on metoprolol 50 mg daily as well as losartan, in addition to Lasix 20 mg twice daily that she had on. Adding spironolactone 25 mg today given increased swelling and both lower extremities with in person check in 1 to 2 months which was hard to assess volume overload today virtually. Repeat blood work and monitoring blood pressure on the new spironolactone in 2 weeks. [facility] 03-27-2023 Miscellaneous Notes Associated Problem(s): Mild left ventricular systolic dysfunction Improvement of LVEF from 45-50% to 59% in September 2022. Continue on metoprolol 50 mg daily as well as losartan, in addition to Lasix 20 mg twice daily that she had on. Adding spironolactone 25 mg today given increased swelling and both lower extremities with in person check in 1 to 2 months which was hard to assess volume overload today virtually. Repeat blood work and monitoring blood pressure on the new spironolactone in 2 weeks. Associated Problem(s): Moderate major depression (HCC) Cymbalta was added last visit a month ago to help with chronic pain and at the same time help with sleeping and depression with general mood. Discussed with patient in regards to the bad dream that she can hold Cymbalta for 2 to 3 days and see if it makes any difference or try not to mix it with melatonin. That could also be a side effect of the melatonin by itself and she will try to alternate each at the time to see if it affects the bad dreams. Potentially switching off Cymbalta to a different medication. Counseling can also be considered in the future visits. documented in this encounter [facility] 03-27-2023 Miscellaneous Notes Associated Problem(s): Mild left ventricular systolic dysfunction Improvement of LVEF from 45-50% to 59% in September 2022. Continue on metoprolol 50 mg daily as well as losartan, in addition to Lasix 20 mg twice daily that she had on. Adding spironolactone 25 mg today given increased swelling and both lower extremities with in person check in 1 to 2 months which was hard to assess volume overload today virtually. Repeat blood work and monitoring blood pressure on the new spironolactone in 2 weeks. Associated Problem(s): Moderate major depression (HCC) Cymbalta was added last visit a month ago to help with chronic pain and at the same time help with sleeping and depression with general mood. Discussed with patient in regards to the bad dream that she can hold Cymbalta for 2 to 3 days and see if it makes any difference or try not to mix it with melatonin. That could also be a side effect of the melatonin by itself and she will try to alternate each at the time to see if it affects the bad dreams. Potentially switching off Cymbalta to a different medication. Counseling can also be considered in the future visits. documented in this encounter [facility] 03-27-2023 Evaluation + Plan note Associated Problem(s): Moderate major depression (HCC) Cymbalta was added last visit a month ago to help with chronic pain and at the same time help with sleeping and depression with general mood. Discussed with patient in regards to the bad dream that she can hold Cymbalta for 2 to 3 days and see if it makes any difference or try not to mix it with melatonin. That could also be a side effect of the melatonin by itself and she will try to alternate each at the time to see if it affects the bad dreams. Potentially switching off Cymbalta to a different medication. Counseling can also be considered in the future visits. [facility] 03-27-2023 History of Present illness Narrative Telephone Visit Via Phone Call [facility] [address] [place] [address] [facility] [address] [place] [phone] Telephone Visit [facility] 03/27/2023 Claudine Majano MD Provider Location: [address] [place] [address] Patient Location [employer]: None Patient Location: Patient's Home Patient: Cat Carroll Date of : 1935 (87 y.o. female) PCP: Claudine Majano MD I discussed risks, benefits and alternatives of a telephone visit telemedicine consultation with the patient (and any accompanying persons) including the risks that the patient's personal health details and medical records will be discussed over real-time, synchronous, interactive audio technology, the visit will not be recorded without the express consent of both the provider and the patient, and that there are inherent diagnostic limitations compared to [id number] evaluations. We elected to proceed with the telephone visit telemedicine consultation. MAR Carroll is a 87 y.o. female presenting today for multiple concerns. Former patient of [facility]. Has PMH of prediabetes, coronary artery disease, IA previous, trigeminal neuralgia and chronic low back pain, Kelly's esophagus, fibromyalgia as well as urinary incontinence. Has been feeling down and depressed since her cat got sick in the past 2 months. Denies any SI or HI Also worried and concerned about her kids health as her daughter is bipolar and trying to manage her mental health and her diabetic son is also trying to work on it with his doctor. Has not been on any antidepressants in the past but open to the idea. 03/27: Since the last visit found that her cat was depressed and had to relocate him to another house, was started on Cymbalta 30 mg which seems to help with her sleeping mixing it with melatonin but has been getting bad dreams and wondering if it Could be a side effect of the medication. Mild systolic dysfunction: Echo last known LVEF of 45 to 50%, repeat echo shows improvement in LVEF of 59% done in September 2022. Continue metoprolol succinate 50 mg daily, losartan 100 mg daily Denies any symptoms of chest pain or shortness of breath. Swelling in the leg is down with adding low-dose Lasix at 20 mg. 03/27: Has been having increased swelling in the leg starting at a.m. even with compression stockings on that she has all days and sometimes sleeping with them at night. Trying to elevate her legs up during the day and taking her Lasix 20 mg twice daily. She denies any associated shortness of breath or chest pain or dizziness with that. The following portions of the patient's history were reviewed and updated as appropriate: allergies, current medications, past family history, past medical history, past social history, past surgical history, and problem list. Review of Systems Patient's Medications New Prescriptions No medications on file Previous Medications ASPIRIN (ECOTRIN ORAL) Take by mouth . ATORVASTATIN (LIPITOR) 40 MG TABLET Take 1 (one) tablet (40 mg total) by mouth nightly . BACLOFEN (LIORESAL) 20 MG TABLET Take 1 (one) tablet (20 mg total) by mouth 3 (three) times a day . CARBAMAZEPINE (TEGRETOL) 200 MG TABLET TAKE 1 TABLET THREE TIMES A DAY CEPHALEXIN (KEFLEX) 500 MG CAPSULE Take 1 (one) capsule (500 mg total) by mouth 3 (three) times a day . COLESTIPOL (COLESTID) 1 GRAM TABLET D-MANNOSE ORAL DIPHENHYDRAMINE-ACETAMINOPHEN (TYLENOL PM) 25-500 MG TAB Take 2 (two) tablets by mouth nightly as needed . DULOXETINE (CYMBALTA) 30 MG CAPSULE Take 1 (one) capsule (30 mg total) by mouth at bedtime . ESTRADIOL (ESTRACE) 0.01 % (0.1 MG/GRAM) VAGINAL CREAM insert 1 gram vaginally three times a week BEFORE BEDTIME FUROSEMIDE (LASIX) 20 MG TABLET Take 1 (one) tablet (20 mg total) by mouth 2 (two) times a day . LOSARTAN (COZAAR) 50 MG TABLET Take 1 (one) tablet (50 mg total) by mouth daily . MECLIZINE (ANTIVERT) 25 MG TABLET Take 1 (one) tablet (25 mg total) by mouth 3 (three) times a day as needed for nausea . MELATONIN 5 MG TAB Take by mouth . METHADONE (DOLOPHINE) 5 MG TABLET Take 2 (two) tablets (10 mg total) by mouth 2 (two) times a day . METOPROLOL SUCCINATE (TOPROL-XL) 50 MG 24 HR TABLET Take 1 (one) tablet (50 mg total) by mouth at bedtime . MULTIVIT-MIN/IRON/FOLIC/LUTEIN (CENTRUM SILVER WOMEN ORAL) Take 1 tablet by mouth daily. NITROGLYCERIN (NITROSTAT) 0.[address] 1 (one) tablet (0.4 mg total) under the tongue every 5 (five) minutes as needed for chest pain , if no relief after 3 doses call 911 . OMEPRAZOLE (PRILOSEC) 40 MG CAPSULE Take 1 (one) capsule (40 mg total) by mouth daily . UNIV COMP RX: AMITRIPTYLINE 2%, BACLOFEN 2%, GABAPENTIN 5%, LIDOCAINE 5% EMOLLIENT CREAM Apply 0.5 g topically 3 (three) times a day as needed . VIBEGRON (GEMTESA) 75 MG TAB Take by mouth . Modified Medications No medications on file Discontinued Medications No medications on file Assessment/Plan: Problem List Items Addressed This Visit Cardiovascular and Mediastinum Hypertension Relevant Medications spironolactone (ALDACTONE) 25 MG tablet Other Relevant Orders Comprehensive Metabolic Panel Mild left ventricular systolic dysfunction Improvement of LVEF from 45-50% to 59% in September 2022. Continue on metoprolol 50 mg daily as well as losartan, in addition to Lasix 20 mg twice daily that she had on. Adding spironolactone 25 mg today given increased swelling and both lower extremities with in person check in 1 to 2 months which was hard to assess volume overload today virtually. Repeat blood work and monitoring blood pressure on the new spironolactone in 2 weeks. Relevant Medications spironolactone (ALDACTONE) 25 MG tablet Other Relevant Orders Comprehensive Metabolic Panel Other Moderate major depression (HCC) - Primary Cymbalta was added last visit a month ago to help with chronic pain and at the same time help with sleeping and depression with general mood. Discussed with patient in regards to the bad dream that she can hold Cymbalta for 2 to 3 days and see if it makes any difference or try not to mix it with melatonin. That could also be a side effect of the melatonin by itself and she will try to alternate each at the time to see if it affects the bad dreams. Potentially switching off Cymbalta to a different medication. Counseling can also be considered in the future visits. I have spent 21 minutes with the patient reviewing the HPI and Plan of Care. documented in this encounter [facility] 03-23-2023 History of Present illness Narrative Subjective Patient ID: Cat Carroll is a 87 y.o. female who presents for No chief complaint on file.. HPI for that is seen today in follow-up. 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 Patient failed to have follow-up after initial endoscopy because of health reasons and then canceled during pandemic. CT scan of abdomen was performed in 2020 related to spinal fracture and showed no evidence of metastatic disease. At this time she is asymptomatic denies any bloating no diarrhea. She does not wish to have any further follow-up testing. She does request change from omeprazole to a new agent as [facility] is having trouble getting medication for. Review of Systems Constitutional: Negative. HENT: Negative. Eyes: Negative. Respiratory: Negative. Cardiovascular: Negative. Endocrine: Negative. Genitourinary: Negative. Neurological: Negative. Hematological: Negative. Objective Physical Exam Vitals and nursing note reviewed. Constitutional: Appearance: Normal appearance. HENT: Head: Normocephalic. Mouth/Throat: Mouth: Mucous membranes are moist. Pharynx: Oropharynx is clear. Eyes: Conjunctiva/sclera: Conjunctivae normal. Pupils: Pupils are equal, round, and reactive to light. Cardiovascular: Pulses: Normal pulses. Heart sounds: Normal heart sounds. Pulmonary: Effort: Pulmonary effort is normal. Breath sounds: Normal breath sounds. Abdominal: General: Abdomen is flat. Bowel sounds are normal. Palpations: Abdomen is soft. Musculoskeletal: Cervical back: Normal range of motion and neck supple. Skin: General: Skin is warm and dry. Neurological: General: No focal deficit present. Mental Status: She is alert and oriented to person, place, and time. Psychiatric: Behavior: Behavior normal. Assessment/Plan Diagnoses and all orders for this visit: Chronic GERD - pantoprazole (ProtoNix) 40 mg EC tablet; Take 1 tablet (40 mg) by mouth once daily. Do not crush, chew, or split. History of benign carcinoid tumor - pantoprazole (ProtoNix) 40 mg EC tablet; Take 1 tablet (40 mg) by mouth once daily. Do not crush, chew, or split. Bile reflux gastritis - pantoprazole (ProtoNix) 40 mg EC tablet; Take 1 tablet (40 mg) by mouth once daily. Do not crush, chew, or split. At this point Cat does not wish any follow-up. I changed her from omeprazole to pantoprazole. I advised her to follow-up if she has any new symptoms such as bloating or diarrhea. Otherwise to follow-up with family medical doctor Rick Zavala DO 03/23/23 8:36 AM documented in this encounter [facility] Work Phone: 03-12-2023 Telephone encounter Note LAST OV 02/24/23. NEXT OV SCHEDULED FOR 03/27/23. [facility] 03-12-2023 Miscellaneous Notes LAST OV 02/24/23. NEXT OV SCHEDULED FOR 03/27/23. ----- Message from Faiza Gonzalez sent at 03/12/2023 10:04 AM EST ----- Regarding: rx refill Contact: Cat MEDICATION REFILL REQUEST: PCP: Claudine Majano MD Patient called 03/12/23 and is requesting a medication refill for omeprazole (PRILOSEC) 40 MG capsule. This was confirmed from the current medication list found in the patients chart. Supply Requested: # of days: 90 days Method of receiving: Send to pharmacy Last set of flowsheet rows for OARRS report: OARRS/NARxCHECK Report Received and Assessed: 04/11/2020 Date controlled substance agreement signed: 03/15/2020 Date of last drug screen: No data found Functional Assessment: No data found Will this refill be sent to the preferred pharmacy listed below? Yes Preferred pharmacies: [facility] [address] [address] Pt Call Back Number Work Phone Not on file. Patient call back message sent to the primary care clinical pool. Faiza Gonzalez documented in this encounter [facility] 03-12-2023 Telephone encounter Note ----- Message from Faiza Gonzalez sent at 03/12/2023 10:04 AM EST ----- Regarding: rx refill Contact: Cat MEDICATION REFILL REQUEST: PCP: Claudine Majano MD Patient called 03/12/23 and is requesting a medication refill for omeprazole (PRILOSEC) 40 MG capsule. This was confirmed from the current medication list found in the patients chart. Supply Requested: # of days: 90 days Method of receiving: Send to pharmacy Last set of flowsheet rows for OARRS report: OARRS/NARxCHECK Report Received and Assessed: 04/11/2020 Date controlled substance agreement signed: 03/15/2020 Date of last drug screen: No data found Functional Assessment: No data found Will this refill be sent to the preferred pharmacy listed below? Yes Preferred pharmacies: [facility] - [address] [address] Pt Call Back Number Work Phone Not on file. Patient call back message sent to the primary care clinical pool. Faiza Gonzalez [facility] 03-05-2023 Telephone encounter Note Patient made aware of refill. [facility] 03-05-2023 Miscellaneous Notes Patient made aware of refill. documented in this encounter [facility] 02-24-2023 Evaluation + Plan note Associated Problem(s): Trigeminal neuralgia of left side of face Managed with carbamazepine but still having increased pain for which she is seeking second opinion with neurology. Continues on methadone managed through palliative care, going to see Dr. Renae in April to resume prescription as her hospice nurses leaving. Continue to monitor for dizziness, currently ambulating with a cane. [facility] 02-24-2023 Miscellaneous Notes Associated Problem(s): Trigeminal neuralgia of left side of face Managed with carbamazepine but still having increased pain for which she is seeking second opinion with neurology. Continues on methadone managed through palliative care, going to see Dr. Renae in April to resume prescription as her hospice nurses leaving. Continue to monitor for dizziness, currently ambulating with a cane. Associated Problem(s): Carcinoid tumor of small intestine Has been followed up by Dr. Zavala in the past with no recent recommendation for any future follow-ups Associated Problem(s): Moderate major depression (HCC) Uncontrolled today secondary to many stressors mentioned per HPI. Might benefit from starting on Cymbalta at bedtime that can help with chronic pain as well as depression improvement. Agreeable to try with close follow-up in 1 month. Counseled about side effects and benefits of the medications and she will let me know with any concerns. Considering counseling as well. documented in this encounter [facility] 02-24-2023 Evaluation + Plan note Associated Problem(s): Carcinoid tumor of small intestine Has been followed up by Dr. Zavala in the past with no recent recommendation for any future follow-ups [facility] 02-24-2023 Evaluation + Plan note Associated Problem(s): Moderate major depression (HCC) Uncontrolled today secondary to many stressors mentioned per HPI. Might benefit from starting on Cymbalta at bedtime that can help with chronic pain as well as depression improvement. Agreeable to try with close follow-up in 1 month. Counseled about side effects and benefits of the medications and she will let me know with any concerns. Considering counseling as well. [facility] 02-24-2023 History of Present illness Narrative Chief Complaint Patient presents with Depression Anxiety HPI: Cat Carroll is a 87 y.o. female presenting today for multiple concerns. Former patient of [facility]. Has PMH of prediabetes, coronary artery disease, IA previous, trigeminal neuralgia and chronic low back pain, Kelly's esophagus, fibromyalgia as well as urinary incontinence. Has been feeling down and depressed since her cat got sick in the past 2 months. Denies any SI or HI Also worried and concerned about her kids health as her daughter is bipolar and trying to manage her mental health and her diabetic son is also trying to work on it with his doctor. Has not been on any antidepressants in the past but open to the idea. Fibromyalgia, carbamazepine along with methadone twice daily that she gets from palliative nurse and hospice pathways. Still getting dizziness from it, getting a second opinion from Dr. Mcleod for trigeminal neuralgia scheduled in April. Chronic low back pain: Follows up with orthopedics, last imaging shows L5-S1 posterior fusion in similar alignment. Multilevel lumbar spondylosis with 24 degrees of dextroscoliosis Palliative team went up on Methadone 10 mg in the AM and 15 mg at PM. Getting referred to pain management as her hospice/palliative nurse is leaving practice and she was the one prescribing her methadone. Mild systolic dysfunction: Echo last known LVEF of 45 to 50%, repeat echo shows improvement in LVEF of 59% done in September 2022. Continue metoprolol succinate 50 mg daily, losartan 100 mg daily Denies any symptoms of chest pain or shortness of breath. Swelling in the leg is down with adding low-dose Lasix at 20 mg. 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 prior biopsies no dysplasia last biopsies 08/2014 Benign carcinoid tumor of the duodenum 2014 Cancer (HCC) skin cancer-squamous cells removed Chronic kidney disease (CKD), stage III (moderate) (HCC) 09/12/2016 EGFR 43 Fibromyalgia Floating kidney GERD (gastroesophageal reflux disease) 2010 Hypertension 2000 Macular degeneration 2017 Myocardial infarction ([facility]) 08/2018 STEMI Osteoporosis 2010 Trigeminal neuralgia of left side of face 2004 Vertigo Vitamin D deficiency 2016 Past Surgical History: Procedure Laterality Date BACK SURGERY 2013 fusion and rods placed in lower back. Rick thompson. Dr Hinds BLADDER REPAIR 1989 CATARACT EXT/ECCE Bilateral 2011 Dr [place] CHOLECYSTECTOMY CYST REMOVAL Right 2000 cyst removal from rt breast-benign DILATION AND CURETTAGE (D AND C) 1970 x 2 EGD 01/01/2015 Dr. ZavalaUzaayw-Jowtjgopb-Qsuyotj's esophagus EGD 08/2014 Dr. Vinicius RamachandranP-Osjsqkihz-Ucadlbo's esophagitis biopsies negative for dysplasia. ESOPHAGOGASTRODUODENOSCOPY 01/04/2018 Dr. Zavala -biopsies performed-Kelly's esophagitis-carcinoid tumor posterior wall duodenum FRACTURE SURGERY Right Plates and screws in rt arm after fracture. dr Dolan [facility] LEFT HEART CATH N/A 08/23/2018 Procedure: Left Heart Cath; Surgeon: Glen Fair MD; Location: CUSTODIAN; Service: Cardiovascular HYSTERECTOMY 1975 KIDNEY SURGERY 1969 had exploratory surgery d/t floating kidney Dx KNEE SURGERY Left 1997 left knee arthoscopy LUMPECTOMY Left 1989 benign ORIF HIP GAMMA NAIL Right 04/02/2020 SQUAMOUS CELL CARCINOMA EXCISION x4 TOTAL KNEE ARTHROPLASTY Left 2012 dr dolan TUMOR REMOVAL 2011 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 Family History Problem Relation Age of Onset Diabetes Mother Heart disease Mother Heart disease Father Stroke Father Diabetes Sister Dementia Sister Heart disease Brother Diabetes Brother Diabetes Maternal Uncle Bipolar disorder Daughter Diabetes Son Cancer Neg Hx Aneurysm Neg Hx Seizures Neg Hx Social History Tobacco Use Smoking status: Former Packs/day: 0 Types: Cigarettes Quit date: 04/03/1976 Years since quittin.9 Smokeless tobacco: Never Vaping Use Vaping Use: Never used Substance Use Topics Alcohol use: No Drug use: No Review of Systems Vitals: 02/24/23 1556 02/24/23 1603 02/24/23 1630 BP: (!) 152/81 (!) 150/84 (!) 147/80 BP Location: Right arm Left arm Patient Position: Sitting Sitting BP Cuff Size: Adult Adult Pulse: 81 83 Resp: 16 Temp: 98 F (36.7 C) TempSrc: Temporal SpO2: 97% Weight: 57.2 kg (126 lb) Height: 5' 4 Estimated body mass index is 21.63 kg/m as calculated from the following: Height as of this encounter: 5' 4. Weight as of this encounter: 57.2 kg (126 lb). Physical Exam Constitutional: General: She is not in acute distress. Appearance: She is not ill-appearing. HENT: Head: Normocephalic and atraumatic. Eyes: Extraocular Movements: Extraocular movements intact. Conjunctiva/sclera: Conjunctivae normal. Pupils: Pupils are equal, round, and reactive to light. Cardiovascular: Rate and Rhythm: Normal rate and regular rhythm. Pulses: Normal pulses. Heart sounds: Normal heart sounds. No murmur heard. No gallop. Pulmonary: Effort: Pulmonary effort is normal. Breath sounds: Normal breath sounds. No wheezing, rhonchi or rales. Chest: Chest wall: No tenderness. Abdominal: General: Abdomen is flat. Bowel sounds are normal. There is no distension. Palpations: Abdomen is soft. There is no mass. Tenderness: There is no abdominal tenderness. There is no right CVA tenderness, left CVA tenderness, guarding or rebound. Musculoskeletal: General: No tenderness. Normal range of motion. Cervical back: Normal range of motion and neck supple. No rigidity. No muscular tenderness. Right lower leg: No edema. Left lower leg: No edema. Lymphadenopathy: Cervical: No cervical adenopathy. Skin: General: Skin is warm. Findings: No erythema or rash. Neurological: General: No focal deficit present. Mental Status: She is alert and oriented to person, place, and time. Sensory: No sensory deficit. Motor: No weakness. Gait: Gait normal. Psychiatric: Mood and Affect: Mood normal. Behavior: Behavior normal. Thought Content: Thought content normal. Judgment: Judgment normal. OARRS/NARxCHECK Report Received and Assessed: 04/11/2020 Date controlled substance agreement signed: 03/15/2020 Date of last drug screen: No data found Functional Assessment: No data found @Exam@ PHQ9: JOHNATHON-7 Tobacco Counseling: Counseling given: Not Answered Patient's Medications New Prescriptions DULOXETINE (CYMBALTA) 30 MG CAPSULE Take 1 (one) capsule (30 mg total) by mouth at bedtime . Previous Medications ASPIRIN (ECOTRIN ORAL) Take by mouth . ATORVASTATIN (LIPITOR) 40 MG TABLET Take 1 (one) tablet (40 mg total) by mouth nightly . BACLOFEN (LIORESAL) 20 MG TABLET Take 1 (one) tablet (20 mg total) by mouth 3 (three) times a day . CARBAMAZEPINE (TEGRETOL) 200 MG TABLET Take 1 (one) tablet (200 mg total) by mouth 3 (three) times a day . CEPHALEXIN (KEFLEX) 500 MG CAPSULE Take 1 (one) capsule (500 mg total) by mouth 3 (three) times a day . COLESTIPOL (COLESTID) 1 GRAM TABLET D-MANNOSE ORAL DIPHENHYDRAMINE-ACETAMINOPHEN (TYLENOL PM) 25-500 MG TAB Take 2 (two) tablets by mouth nightly as needed . ESTRADIOL (ESTRACE) 0.01 % (0.1 MG/GRAM) VAGINAL CREAM insert 1 gram vaginally three times a week BEFORE BEDTIME FUROSEMIDE (LASIX) 20 MG TABLET Take 1 (one) tablet (20 mg total) by mouth 2 (two) times a day . LOSARTAN (COZAAR) 50 MG TABLET Take 1 (one) tablet (50 mg total) by mouth daily . MELATONIN 5 MG TAB Take by mouth . METHADONE (DOLOPHINE) 5 MG TABLET Take 2 (two) tablets (10 mg total) by mouth 2 (two) times a day . METOPROLOL SUCCINATE (TOPROL-XL) 50 MG 24 HR TABLET Take 1 (one) tablet (50 mg total) by mouth at bedtime . MULTIVIT-MIN/IRON/FOLIC/LUTEIN (CENTRUM SILVER WOMEN ORAL) Take 1 tablet by mouth daily. NITROGLYCERIN (NITROSTAT) 0.[address] 1 (one) tablet (0.4 mg total) under the tongue every 5 (five) minutes as needed for chest pain , if no relief after 3 doses call 911 . OMEPRAZOLE (PRILOSEC) 40 MG CAPSULE Take 1 (one) capsule (40 mg total) by mouth daily . UNIV COMP RX: AMITRIPTYLINE 2%, BACLOFEN 2%, GABAPENTIN 5%, LIDOCAINE 5% EMOLLIENT CREAM Apply 0.5 g topically 3 (three) times a day as needed . VIBEGRON (GEMTESA) 75 MG TAB Take by mouth . Modified Medications No medications on file Discontinued Medications BACLOFEN 5 MG TAB Take 1 (one) tablet (5 mg total) by mouth 3 (three) times a day . CARBAMAZEPINE (TEGRETOL) 100 MG CHEWABLE TABLET Chew and Swallow 0.5 (one-half) tablet (50 mg total) 3 (three) times a day . COLESEVELAM (WELCHOL) 625 MG TABLET Take 3 (three) tablets (1,875 mg total) by mouth 2 (two) times a day with meals Reasons: excessive fat in the blood. FLUTICASONE PROPIONATE (FLOVENT HFA) 110 MCG/ACTUATION INHALER Inhale 2 (two) puffs 2 (two) times a day Rinse mouth after each use . METHENAMINE (HIPREX) 1 GRAM TABLET Take 1 (one) tablet (1 g total) by mouth 2 (two) times a day . Health Maintenance Due Topic Date Due Pneumococcal Vaccine: Age 65+ (1 - PCV) Never done Zoster Vaccines (1 of 2) Never done Diabetic Eye Exam 05/14/2022 Sequential Influenza Vaccine (1) 11/07/2022 COVID-19 Vaccine ( season) 2022 Falls Risk Assessment 02/11/2023 Wellness Visit 02/11/2023 Assessment & Plan Problem List Items Addressed This Visit Digestive Carcinoid tumor of small intestine Has been followed up by Dr. Zavala in the past with no recent recommendation for any future follow-ups Nervous and Auditory Trigeminal neuralgia of left side of face Managed with carbamazepine but still having increased pain for which she is seeking second opinion with neurology. Continues on methadone managed through palliative care, going to see Dr. Renae in April to resume prescription as her hospice nurses leaving. Continue to monitor for dizziness, currently ambulating with a cane. Other Moderate major depression (HCC) - Primary Uncontrolled today secondary to many stressors mentioned per HPI. Might benefit from starting on Cymbalta at bedtime that can help with chronic pain as well as depression improvement. Agreeable to try with close follow-up in 1 month. Counseled about side effects and benefits of the medications and she will let me know with any concerns. Considering counseling as well. Relevant Medications DULoxetine (CYMBALTA) 30 MG capsule Return for 03/27 phone check at 1 pm , keep May appointment . CLAUDINE MAJANO MD [facility] [address] [facility] [address] [facility] [id number] Dept: [phone] 08/23/2018 8:31 AM 12/22/2018 10:00 AM 01/12/2020 3:00 PM 03/15/2020 2:00 PM 02/11/2022 1:43 PM 07/25/2022 1:32 PM 02/20/2023 12:00 PM Depression Screening Little interest or pleasure in doing things 0 0 0 3 0 1 3 Feeling down, depressed, or hopeless 0 0 1 2 0 1 3 PHQ-2 Total Score 0 0 1 5 0 2 6 Trouble falling or staying asleep, or sleeping too much 0 1 0 1 0 2 Feeling tired or having little energy 0 1 1 1 1 1 Poor appetite or overeating 1 0 1 0 0 1 Feeling bad about yourself - or that you are a failure or have let yourself or your family down 0 0 1 0 0 0 Trouble concentrating on things, such as reading the newspaper or watching television 0 0 0 0 0 1 Moving or speaking so slowly that other people could have noticed. Or the opposite - being so fidgety or restless that you have been moving around a lot more than usual 0 0 0 0 0 0 Thoughts that you would be better off , or of hurting yourself in some way 0 0 1 0 0 1 PHQ-9 Total Score 1 3 9 2 3 12 If you checked off any problems, how difficult have these problems made it for you to do your work, take care of things at home, or get along with other people? Not difficult at all Not difficult at all Very difficult Not difficult at all Not difficult at all Very difficult documented in this encounter [facility] 12-22-2022 Telephone encounter Note Pt was last seen on 09-16-[address] Schroeder. Refills appropriate [facility] 12-22-2022 Miscellaneous Notes Pt was last seen on 09-16-[address] Schroeder. Refills appropriate documented in this encounter [facility] 12-19-2022 Telephone encounter Note LAST OV 10/24/22. NEXT OV SCHEDULED FOR 05/11/23 [facility] 12-19-2022 Miscellaneous Notes LAST OV 10/24/22. NEXT OV SCHEDULED FOR 05/11/23 ----- Message from Leyda Baum sent at 12/19/2022 11:56 AM EDT ----- Regarding: Rx Renewl Contact: Patient Patient states her pharmacy, [facility] told her she needs a renewal on 4 prescriptions. She states she needs a renewal on: furosemide (LASIX) 20 MG tablet losartan (Cozaar) 50 MG tablet carBAMazepine (TEGRETOL) 200 mg tablet omeprazole (PRILOSEC) 40 MG capsule She states she uses [facility] - [address] Patient can be reached at [phone] with any questions or concerns. documented in this encounter [facility] 12-19-2022 Telephone encounter Note ----- Message from Leyda Baum sent at 12/19/2022 11:56 AM EDT ----- Regarding: Rx Renewl Contact: Patient Patient states her pharmacy, [facility] told her she needs a renewal on 4 prescriptions. She states she needs a renewal on: furosemide (LASIX) 20 MG tablet losartan (Cozaar) 50 MG tablet carBAMazepine (TEGRETOL) 200 mg tablet omeprazole (PRILOSEC) 40 MG capsule She states she uses [facility] - [address] Patient can be reached at [phone] with any questions or concerns. [facility] 11-27-2022 History of Present illness Narrative MID-RIGHT UPPER BACK AREA WITH 1 INTACT SUTURE. NO REDNESS, WARMTH, EDEMA, OR DRAINAGE NOTED TO AREA. INFORMED DR. MAJANO OF [facility]ISUAL OF AREA, [place] GIVEN TO REMOVE 1 SUTURE. SUTURE X1 REMOVED. PT TOLERATED WELL. NO DRAINAGE OR OPEN AREAS. NO DRESSING APPLIED. documented in this encounter [facility] 10-24-2022 Evaluation + Plan note Associated Problem(s): CAD (coronary artery disease) Had acute thrombotic occlusion in the past with s/p HANNAH. Last echo in September 2022 showed improvement in LVEF to 59%. [facility] 10-24-2022 Miscellaneous Notes Associated Problem(s): CAD (coronary artery disease) Had acute thrombotic occlusion in the past with s/p HANNAH. Last echo in September 2022 showed improvement in LVEF to 59%. Associated Problem(s): Hyponatremia Secondary to carbamazepine, currently stable. However with leg swelling and use of Lasix, will recheck sodium levels to make sure it errors remaining stable remained stable. Continue to monitor Associated Problem(s): Spinal stenosis, 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 neurogenic claudication Has tried physical therapy, imaging repeat with orthopedics showed L5-S1 posterior fusion in similar alignment and multiple levels of lumbar spondylosis with dextroscoliosis. Continue with pain control with methadone with the palliative team Continue to monitor documented in this encounter [facility] 10-24-2022 Evaluation + Plan note Associated Problem(s): Hyponatremia Secondary to carbamazepine, currently stable. However with leg swelling and use of Lasix, will recheck sodium levels to make sure it errors remaining stable remained stable. Continue to monitor [facility] 10-24-2022 Evaluation + Plan note Associated Problem(s): Spinal stenosis, 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 neurogenic claudication Has tried physical therapy, imaging repeat with orthopedics showed L5-S1 posterior fusion in similar alignment and multiple levels of lumbar spondylosis with dextroscoliosis. Continue with pain control with methadone with the palliative team Continue to monitor [facility] 10-24-2022 History of Present illness Narrative Chief Complaint Patient presents with Follow-up 3 month f/u HPI: Cat Carroll is a 87 y.o. female presenting today for multiple concerns. Former patient of Gisell Desai. Has PMH of prediabetes, coronary artery disease, IA previous, trigeminal neuralgia and chronic low back pain, Kelly's esophagus, fibromyalgia as well as urinary incontinence. Dysuria, chronic: Was treated for possible UTI along with her incontinence, has been following up with urogynecology with Dr. Javier and currently having the UTI under control with daily Keflex. Has had a constant cystoscopy done on 06/10 and revealed an area of inflammation/ulceration and the lateral right wall close to the ureteral of the orifice that came back benign. Currently on keflex, estrogen cream as well as Gemtesa. Fibromyalgia, carbamazepine along with methadone twice daily that she gets from palliative nurse and hospice pathways. Chronic low back pain: Follows up with orthopedics, last imaging shows L5-S1 posterior fusion in similar alignment. Multilevel lumbar spondylosis with 24 degrees of dextroscoliosis Palliative team went up on Methadone 10 mg in the AM and 15 mg at PM. Mild systolic dysfunction: Echo last known LVEF of 45 to 50%, repeat echo shows improvement in LVEF of 59% done in September 2022. Continue metoprolol succinate 50 mg daily, losartan 100 mg daily Denies any symptoms of chest pain or shortness of breath. Swelling in the leg is down with adding low-dose Lasix at 20 mg. 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 prior biopsies no dysplasia last biopsies 08/2014 Benign carcinoid tumor of the duodenum 2014 Cancer (HCC) skin cancer-squamous cells removed Chronic kidney disease (CKD), stage III (moderate) (HCC) 09/12/2016 EGFR 43 Fibromyalgia Floating kidney GERD (gastroesophageal reflux disease) 2009 Hypertension 2000 Macular degeneration 2017 Myocardial infarction (HCC) 08/2018 STEMI Osteoporosis 2010 Trigeminal neuralgia of left side of face 2004 Vertigo Vitamin D deficiency 2015 Past Surgical History: Procedure Laterality Date BACK SURGERY 2013 fusion and rods placed in lower back. Rick ledbetterus. Dr Hinds BLADDER REPAIR 1989 CATARACT EXT/ECCE Bilateral 2011 Dr [place] CHOLECYSTECTOMY CYST REMOVAL Right 1999 cyst removal from rt breast-benign DILATION AND CURETTAGE (D AND C) 1970 x 2 EGD 01/01/2015 Dr. ZavalaTcwsem-Qpxdaipub-Wegkqvu's esophagus EGD 08/2014 Dr. iVnicius Pruett-Barrett's esophagitis biopsies negative for dysplasia. ESOPHAGOGASTRODUODENOSCOPY 01/04/2018 Dr. Zavala -biopsies performed-Kelly's esophagitis-carcinoid tumor posterior wall duodenum FRACTURE SURGERY Right Plates and screws in rt arm after fracture. dr Dolan LEFT HEART CATH N/A 08/23/2018 Procedure: Left Heart Cath; Surgeon: Glen Fair MD; Location: [facility]; Service: Cardiovascular HYSTERECTOMY 1975 KIDNEY SURGERY 1969 had exploratory surgery d/t floating kidney Dx KNEE SURGERY Left 1997 left knee arthoscopy LUMPECTOMY Left 1989 benign ORIF HIP GAMMA NAIL Right 04/02/2020 SQUAMOUS CELL CARCINOMA EXCISION x4 TOTAL KNEE ARTHROPLASTY Left 2012 dr dolan TUMOR REMOVAL 2011 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 Family History Problem Relation Age of Onset Diabetes Mother Heart disease Mother Heart disease Father Stroke Father Diabetes Sister Dementia Sister Heart disease Brother Diabetes Brother Diabetes Maternal Uncle Bipolar disorder Daughter Diabetes Son Cancer Neg Hx Aneurysm Neg Hx Seizures Neg Hx Social History Tobacco Use Smoking status: Former Packs/day: 0 Types: Cigarettes Quit date: 04/03/1976 Years since quittin.5 Smokeless tobacco: Never Vaping Use Vaping Use: Never used Substance Use Topics Alcohol use: No Drug use: No Review of Systems Vitals: 10/24/22 1248 10/24/22 1254 BP: (!) 163/76 (!) 166/78 BP Location: Right arm Right arm Patient Position: Sitting Sitting BP Cuff Size: Adult Adult Pulse: 68 69 Resp: 16 Temp: 98.7 F (37.1 C) TempSrc: Temporal SpO2: 97% Weight: 60.3 kg (133 lb) Height: 5' 4 Estimated body mass index is 22.83 kg/m as calculated from the following: Height as of this encounter: 5' 4. Weight as of this encounter: 60.3 kg (133 lb). Physical Exam Constitutional: General: She is not in acute distress. Appearance: She is not ill-appearing. HENT: Head: Normocephalic and atraumatic. Eyes: Extraocular Movements: Extraocular movements intact. Conjunctiva/sclera: Conjunctivae normal. Pupils: Pupils are equal, round, and reactive to light. Cardiovascular: Rate and Rhythm: Normal rate and regular rhythm. Pulses: Normal pulses. Heart sounds: Normal heart sounds. No murmur heard. No gallop. Pulmonary: Effort: Pulmonary effort is normal. Breath sounds: Normal breath sounds. No wheezing, rhonchi or rales. Chest: Chest wall: No tenderness. Abdominal: General: Abdomen is flat. Bowel sounds are normal. There is no distension. Palpations: Abdomen is soft. There is no mass. Tenderness: There is no abdominal tenderness. There is no right CVA tenderness, left CVA tenderness, guarding or rebound. Musculoskeletal: General: No tenderness. Normal range of motion. Cervical back: Normal range of motion and neck supple. No rigidity. No muscular tenderness. Right lower leg: No edema. Left lower leg: No edema. Lymphadenopathy: Cervical: No cervical adenopathy. Skin: General: Skin is warm. Findings: No erythema or rash. Neurological: General: No focal deficit present. Mental Status: She is alert and oriented to person, place, and time. Sensory: No sensory deficit. Motor: No weakness. Gait: Gait normal. Psychiatric: Mood and Affect: Mood normal. Behavior: Behavior normal. Thought Content: Thought content normal. Judgment: Judgment normal. OARRS/NARxCHECK Report Received and Assessed: 04/11/2020 Date controlled substance agreement signed: 03/15/2020 Date of last drug screen: No data found Functional Assessment: No data found @Exam@ PHQ9: JOHNATHON-7 Tobacco Counseling: Counseling given: Not Answered Patient's Medications New Prescriptions UNIV COMP RX: AMITRIPTYLINE 2%, BACLOFEN 2%, GABAPENTIN 5%, LIDOCAINE 5% EMOLLIENT CREAM Apply 0.5 g topically 3 (three) times a day as needed . Previous Medications ASPIRIN (ECOTRIN ORAL) Take by mouth . ATORVASTATIN (LIPITOR) 40 MG TABLET Take 1 (one) tablet (40 mg total) by mouth nightly . CARBAMAZEPINE (TEGRETOL) 100 MG CHEWABLE TABLET Chew and Swallow 0.5 (one-half) tablet (50 mg total) 3 (three) times a day . CARBAMAZEPINE (TEGRETOL) 200 MG TABLET Take 1 (one) tablet (200 mg total) by mouth 3 (three) times a day . COLESEVELAM (WELCHOL) 625 MG TABLET Take 3 (three) tablets (1,875 mg total) by mouth 2 (two) times a day with meals Reasons: excessive fat in the blood. COLESTIPOL (COLESTID) 1 GRAM TABLET DIPHENHYDRAMINE-ACETAMINOPHEN (TYLENOL PM) 25-500 MG TAB Take 2 (two) tablets by mouth nightly as needed . ESTRADIOL (ESTRACE) 0.01 % (0.1 MG/GRAM) VAGINAL CREAM insert 1 gram vaginally three times a week BEFORE BEDTIME FLUTICASONE PROPIONATE (FLOVENT HFA) 110 MCG/ACTUATION INHALER Inhale 2 (two) puffs 2 (two) times a day Rinse mouth after each use . FUROSEMIDE (LASIX) 20 MG TABLET Take 1 (one) tablet (20 mg total) by mouth 2 (two) times a day . LOSARTAN (COZAAR) 50 MG TABLET Take 1 (one) tablet (50 mg total) by mouth daily . MELATONIN 5 MG TAB Take by mouth . METHADONE (DOLOPHINE) 5 MG TABLET Take 2 (two) tablets (10 mg total) by mouth 2 (two) times a day . METHENAMINE (HIPREX) 1 GRAM TABLET Take 1 (one) tablet (1 g total) by mouth 2 (two) times a day . METOPROLOL SUCCINATE (TOPROL-XL) 50 MG 24 HR TABLET Take 1 (one) tablet (50 mg total) by mouth at bedtime . MULTIVIT-MIN/IRON/FOLIC/LUTEIN (CENTRUM SILVER WOMEN ORAL) Take 1 tablet by mouth daily. NITROGLYCERIN (NITROSTAT) 0.[address] 1 (one) tablet (0.4 mg total) under the tongue every 5 (five) minutes as needed for chest pain , if no relief after 3 doses call 911 . OMEPRAZOLE (PRILOSEC) 40 MG CAPSULE Take 1 (one) capsule (40 mg total) by mouth daily . VIBEGRON (GEMTESA) 75 MG TAB Take by mouth . Modified Medications No medications on file Discontinued Medications DICLOFENAC SODIUM 1 % GEL APPLY 1 SMALL AMOUNT TO AFFECTED AREA EVERY 6 HOURS NEEDED FOR PAIN Health Maintenance Due Topic Date Due Pneumococcal Vaccine: Age 65+ (1 - PCV) Never done Zoster Vaccines (1 of 2) Never done COVID-19 Vaccine (4 - Pfizer series) 09/17/2021 Diabetic Eye Exam 05/14/2022 A1C 06/19/2022 Assessment & Plan Problem List Items Addressed This Visit Cardiovascular and Mediastinum CAD (coronary artery disease) Had acute thrombotic occlusion in the past with s/p HANNAH. Last echo in September 2022 showed improvement in LVEF to 59%. Nervous and Auditory 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-sided sciatica Genitourinary Chronic kidney disease (CKD), stage III (moderate) ([facility]) - Primary Relevant Orders Microalbumin/Creatinine Ratio, UR Random Comprehensive Metabolic Panel Vitamin D, Total, 25-OH Other Hyperlipidemia Relevant Orders Lipid Panel Spinal stenosis, 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 neurogenic claudication Has tried physical therapy, imaging repeat with orthopedics showed L5-S1 posterior fusion in similar alignment and multiple levels of lumbar spondylosis with dextroscoliosis. Continue with pain control with methadone with the palliative team Continue to monitor Right ankle swelling Hyponatremia Secondary to carbamazepine, currently stable. However with leg swelling and use of Lasix, will recheck sodium levels to make sure it errors remaining stable remained stable. Continue to monitor Other Visit Diagnoses Prediabetes Relevant Orders Hemoglobin A1c Return in about 7 months (around 05/25/2023) for medicare wellness . CLAUDINE MAJANO MD [facility] [address] [facility] [address] Dept: [phone] 03/23/2018 3:00 PM 08/23/2018 8:31 AM 12/22/2018 10:00 AM 01/12/2020 3:00 PM 03/15/2020 2:00 PM 02/11/2022 1:43 PM 07/25/2022 1:32 PM Depression Screening Little interest or pleasure in doing things 0 0 0 0 3 0 1 Feeling down, depressed, or hopeless 0 0 0 1 2 0 1 PHQ-2 Total Score 0 0 0 1 5 0 2 Trouble falling or staying asleep, or sleeping too much 0 1 0 1 0 Feeling tired or having little energy 0 1 1 1 1 Poor appetite or overeating 1 0 1 0 0 Feeling bad about yourself - or that you are a failure or have let yourself or your family down 0 0 1 0 0 Trouble concentrating on things, such as reading the newspaper or watching television 0 0 0 0 0 Moving or speaking so slowly that other people could have noticed. Or the opposite - being so fidgety or restless that you have been moving around a lot more than usual 0 0 0 0 0 Thoughts that you would be better off , or of hurting yourself in some way 0 0 1 0 0 PHQ-9 Total Score 1 3 9 2 3 If you checked off any problems, how difficult have these problems made it for you to do your work, take care of things at home, or get along with other people? Not difficult at all Not difficult at all Very difficult Not difficult at all Not difficult at all documented in this encounter [facility] 10-24-2022 Evaluation note Diagnosis Stage 3 chronic kidney disease, unspecified whether stage 3a or 3b CKD (HCC)- Primary 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-sided sciatica Mixed hyperlipidemia Right ankle swelling Effusion of ankle and foot joint Prediabetes Other abnormal glucose Spinal stenosis, 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 neurogenic claudication Hyponatremia Hyposmolality and/or hyponatremia Coronary artery disease 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 documented in this encounter [id number] History of Present illness Narrative* Donna Schroeder MD - 09/16/2022 2:46 PM EDT Cardiology Clinic Visit Heart & Vascular [facility] 09/16/2022 Donna Schroeder MD [address] [facility] [address] Patient: Cat Carroll Date of : 1935 (87 y.o.) Referring Provider: No ref. provider found PCP: Claudine Majano MD Assessment & Plan Cat Carroll is a 87 y.o. woman with history of CAD/STEMI with HANNAH to the distal RCA in 08/2018, CKD, HTN, and HLD who presents to clinic for follow up. CAD/STEMI - with HANNAH to distal RCA - Denies angina but does have chest pain or seems to be more consistent with GI/GERD. We did discuss that if her symptoms were to start to happen with activity or exertion or if she would have shortness of breath or decreased exercise capacity to please let us know as this would prompt further evaluation. -Continue aspirin 81 mg daily and metoprolol succinate 50 mg daily -Atorvastatin was reduced to 40 mg daily at the last visit. Mild systolic dysfunction-euvolemic on exam, last known LVEF of 45 to 50%. She was having lower extremity swelling. On exam today she has nonpitting edema of the bilateral lower extremities. Started on Lasix by primary care. Can continue for now. Echocardiogram ordered and is pending. Continue metoprolol succinate 50 mg daily. We will reduce losartan to 50 mg daily due to lightheadedness. Hyperlipidemia-LDL at goal-atorvastatin was reduced at the last visit due to significantly decreased LDL. Continue atorvastatin 40 mg daily. Return in about 4 months (around 01/17/2023). Donna Schroeder MD [facility] Non-Invasive Cardiology [facility] Heart and Vascular Chief Complaint: Follow-up, Fatigue, AICD Problem, Dizziness (Patient thinks this is medication related ), and Leg Swelling (PCP started Lasix. ) Subjective Cat Carroll is a 87 y.o. woman with history of CAD/STEMI with HANNAH to the distal RCA in 08/2018, CKD, HTN, and HLD who presents to clinic for follow up. Reports that she has been feeling okay. She does report having episodes of chest pain which occur at night. She reports that these usually go away after 10 minutes. She has had 2 episodes during the day which occur after eating. She denies having chest pain with her daily activities or working in the yard. She reports that these episodes of chest pain are in the middle of her chest. She denies feeling short of breath. She recently developed lower extremity swelling for which she was started on Lasix. An echocardiogram was ordered by primary care. She denies PND and orthopnea however reports that she has slept on an incline for years due to her acid reflux. She denies palpitations. She does have lightheadedness. She denies any episodes of syncope. She is tolerating aspirin well without anybleeding issues. Review of Systems: Constitution: Negative. HENT: Negative. Cardiovascular: As above. Respiratory: As above. Endocrine: Negative. Skin: Negative. Musculoskeletal: Negative. Gastrointestinal: Negative. Genitourinary: Negative. Neurological: Negative. Psychiatric/Behavioral: Negative. 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 Rick thompson. Dr Hinds BLADDER REPAIR 1989 CATARACT EXT/ECCE Bilateral 2011 Dr [place] CHOLECYSTECTOMY CYST REMOVAL Right 1999 cyst removal from rt breast-benign DILATION AND CURETTAGE (D AND C) 1970 x 2 EGD 01/01/2015 Dr. ZavalaKxlxwo-Rjtcdprwf-Cvmjywy's esophagus EGD 08/2014 Dr. Vinicius RamachandranA-Rpppxyjsx-Errwhwd's esophagitis biopsies negative for dysplasia. ESOPHAGOGASTRODUODENOSCOPY 01/04/2018 Dr. Zavala -biopsies performed-Kelly's esophagitis-carcinoid tumor posterior wall duodenum FRACTURE SURGERY Right Plates and screws in rt arm after fracture. dr Dolan LEFT HEART CATH N/A 08/23/2018 Procedure: Left Heart Cath; Surgeon: Glen Fair MD; Location: [facility]OD[facility]; Service: Cardiovascular HYSTERECTOMY 1975 KIDNEY SURGERY 1969 had exploratory surgery d/t floating kidney Dx KNEE SURGERY Left 1998 left knee arthoscopy LUMPECTOMY Left 1989 benign ORIF HIP GAMMA NAIL Right 04/02/2020 SQUAMOUS CELL CARCINOMA EXCISION x4 TOTAL KNEE ARTHROPLASTY Left 2013 dr dolan TUMOR REMOVAL 2012 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 Family History Problem Relation Age of Onset Diabetes Mother Heart disease Mother Heart disease Father Stroke Father Diabetes Sister Dementia Sister Heart disease Brother Diabetes Brother Diabetes Maternal Uncle Bipolar disorder Daughter Diabetes Son Cancer Neg Hx Aneurysm Neg Hx Seizures Neg Hx Social History Tobacco Use Smoking Status Former Packs/day: 0.00 Types: Cigarettes Quit date: 04/03/1976 Years since quittin.4 Smokeless Tobacco Never Allergies: Aspirin; Bacitracin zinc-polymyxin b; Codeine; Gabapentin; Latex, natural rubber; Dmiltgxz-leiysykaapd-sgjfnjyxx; Adhesive tape-silicones; Bacitracin; Hydrocortisone; Lidocaine; and Neomycin HOME Medications: Current Outpatient Medications on File Prior to Visit Medication Sig aspirin (ECOTRIN ORAL) Take by mouth . atorvastatin (LIPITOR) 40 MG tablet Take 1 (one) tablet (40 mg total) by mouth nightly . carBAMazepine (TEGretol) 100 mg chewable tablet Chew and Swallow 0.5 (one-half) tablet (50 mg total) 3 (three) times a day . carBAMazepine (TEGRETOL) 200 mg tablet Take 1 (one) tablet (200 mg total) by mouth 3 (three) times a day . colesevelam (WELCHOL) 625 mg tablet Take 3 (three) tablets (1,875 mg total) by mouth 2 (two) times a day with meals Reasons: excessive fat in the blood. colestipoL (COLESTID) 1 gram tablet diclofenac sodium 1 % Gel APPLY 1 SMALL AMOUNT TO AFFECTED AREA EVERY 6 HOURS NEEDED FOR PAIN diphenhydrAMINE-acetaminophen (TYLENOL PM) 25-500 mg Tab Take 2 (two) tablets by mouth nightly as needed . estradioL (ESTRACE) 0.01 % (0.1 mg/gram) vaginal cream insert 1 gram vaginally three times a week BEFORE BEDTIME fluticasone propionate (FLOVENT HFA) 110 mcg/actuation inhaler Inhale 2 (two) puffs 2 (two) times aday Rinse mouth after each use . furosemide (LASIX) 20 MG tablet Take 1 (one) tablet (20 mg total) by mouth 2 (two) times a day . losartan (Cozaar) 100 MG tablet Take 1 (one) tablet (100 mg total) by mouth daily . melatonin 5 mg Tab Take by mouth . methadone (DOLOPHINE) 5 MG tablet Take 2 (two) tablets (10 mg total) by mouth 2 (two) times a day . methenamine (HIPREX) 1 gram tablet Take 1 (one) tablet (1 g total) by mouth 2 (two) times a day . metoprolol succinate (TOPROL-XL) 50 MG 24 hr tablet Take 1 (one) tablet (50 mg total) by mouth at bedtime . MULTIVIT-MIN/IRON/FOLIC/LUTEIN (CENTRUM SILVER WOMEN ORAL) Take 1 tablet by mouth daily. nitroGLYCERIN (NITROSTAT) 0.[address] 1 (one) tablet (0.4 mg total) under the tongue every 5 (five) minutes as needed for chest pain , if no relief after 3 doses call 911 . omeprazole (PRILOSEC) 40 MG capsule Take 1 (one) capsule (40 mg total) by mouth daily . vibegron (Gemtesa) 75 mg Tab Take by mouth . [DISCONTINUED] amLODIPine (NORVASC) 5 MG tablet Take 1 (one) tablet (5 mg total) by mouth daily . [DISCONTINUED] aspirin 81 MG EC tablet Take 1 (one) tablet (81 mg total) by mouth daily Ecotrin perpatient . [DISCONTINUED] cephALEXin (KEFLEX) 125 mg/5 mL suspension Take 15.1 mL (377.5 mg total) by mouth 4 (four) times a day . No current facility-administered medications on file prior to visit. Physical Examination: BP 101/63 (BP Location: Left arm, Patient Position: Sitting, BP Cuff Size: Adult) Pulse 81 Ht 5' 4 Wt 58.2 kg (128 lb 6.4 oz) SpO2 94% BMI 22.04 kg/m Constitutional: Appears well-developed and well-nourished. No distress. HENT: Head: Normocephalic and atraumatic. Eyes: Conjunctivae and EOM are normal. No scleral icterus. Neck: Normal range of motion. Cardiovascular: Normal rate and regular rhythm. Exam reveals no gallop and no friction rub. No murmur heard. No JVP elevation. No LE edema. Pulmonary/Chest: Effort normal and breath sounds normal. No respiratory distress. No wheezes. No rales. Abdominal: Soft. Bowel sounds are normal. There is no abdominal tenderness. Musculoskeletal: Normal range of motion. Neurological: AOx3, moving all ext. Skin: Skin is warm and dry. No rash noted. Psychiatric: Normal mood and affect. Cardiovascular Studies: TTE 08/23/18 Conclusions: Mild segmental LV dysfunction with posterior and inferior wall motion abnormalities. Ejection fraction approximately 45 to 50%. No significant valvular heart disease identified. [facility] 09/02/18 Impressions and Recommendations: #1. Moderate LV systolic dysfunction with an estimated LV ejection fraction of 42%. 2. Normal left ventricular end-diastolic pressure 3. Segmental contraction abnormality of the left ventricle. 4. 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 5. Successful catheter-based intervention with drug-eluting stent placement in the distal right conduit, extending into the posterior AV segment, with denominational of MERLY-3 flow and 0% residual stenosis ECG 04/03/22 - NSR, inferior infarct age undetermined, LVH Labs: Lab Results Component Value Date GLUCOSE 98 07/31/2022 CALCIUM 8.3 (L) 07/31/2022 NA 133 (L) 07/31/2022 K 3.9 07/31/2022 CL 101 07/31/2022 BUN 17 07/31/2022 CREATININE 0.83 07/31/2022 Lab Results Component Value Date WBC 5.86 04/05/2022 HGB 10.8 (L) 04/05/2022 HCT 31.8 (L) 04/05/2022 MCV 92.2 04/05/2022 EXTMCV 90.6 06/09/2017 PLT 181 04/05/2022 RBC 3.45 (L) 04/05/2022 Lab Results Component Value Date CHOL 112 12/19/2021 LDLCALC 19 12/19/2021 TRIG 168 (H) 12/19/2021 HDL 59 12/19/2021 documented in this [id number] Instructions* Patient Instructions* Francesca Mares RN - 09/16/2022 2:31 PM EDT Decrease your losartan to 50 mg daily How to contact your Care Team: Provider: Donna Schroeder MD Nurse: Francesca Mares RN In case of an emergency please call 911. REFILLS: When in need for refills please call your care team or the office at [phone]. Please include medication name, pharmacy name, and specify 30-day or 90-day supply. Please check with your pharmacy within 24 hours of request for your refill. You must follow up as directed to continue current refills. Thank you documented in this [id number] History of Present illness Narrative* Carolina Clark CNP - 09/03/2022 10:07 PM EDT Images from the original note were not included. [facility] [address] [facility] [address] [facility] [id number] Chief Complaint Patient presents with Right Hip - Pain Left Hip - Pain Cat Carroll returns to the office today for bilateral hip pain. She reports pain in the posterior buttock area as well as across her lower back. She also has a history of lumbar spine surgery. The pain is worse when she goes to get up. She denies any pain in the groin or down the front of the thigh. She denies any pain that radiates down the leg, past the knee or into the foot or toes. She denies any numbness or tingling. She is currently taking 5mg of methadone in the morning and 5mg at bedtime through her palliative care provider. The patient's past medical history, surgical history, social history, family history, medications and allergies were reviewed with the patient today and are available in the chart for further review. Allergies Allergen Reactions Aspirin GI Intolerance Indigestion Bacitracin Zinc-Polymyxin B Codeine Unknown Gabapentin Other (See Comments) and GI Intolerance Latex, Natural Rubber Unknown Pypmtebo-Glyqorviedf-Yedtrzcts Adhesive Tape-Silicones Rash Bacitracin Rash Hydrocortisone Rash Lidocaine Rash Neomycin Rash Current Outpatient Medications: amLODIPine (NORVASC) 5 MG tablet, Take 1 (one) tablet (5 mg total) by mouth daily ., Disp: 30 tablet, Rfl: 3 aspirin 81 MG EC tablet, Take 1 (one) tablet (81 mg total) by mouth daily Ecotrin per patient ., Disp: , Rfl: atorvastatin (LIPITOR) 40 MG tablet, Take 1 (one) tablet (40 mg total) by mouth nightly ., Disp: 90tablet, Rfl: 0 carBAMazepine (TEGretol) 100 mg chewable tablet, Chew and Swallow 0.5 (one-half) tablet (50 mg total) 3 (three) times a day ., Disp: 45 tablet, Rfl: 11 carBAMazepine (TEGRETOL) 200 mg tablet, Take 1 (one) tablet (200 mg total) by mouth 3 (three) timesa day ., Disp: 270 tablet, Rfl: 3 cephALEXin (KEFLEX) 125 mg/5 mL suspension, Take 15.1 mL (377.5 mg total) by mouth 4 (four) times aday ., Disp: 100 mL, Rfl: 0 colesevelam (WELCHOL) 625 mg tablet, Take 3 (three) tablets (1,875 mg total) by mouth 2 (two) timesa day with meals Reasons: excessive fat in the blood., Disp: , Rfl: colestipoL (COLESTID) 1 gram tablet, , Disp: , Rfl: diclofenac sodium 1 % Gel, APPLY 1 SMALL AMOUNT TO AFFECTED AREA EVERY 6 HOURS NEEDED FOR PAIN, Disp: , Rfl: diphenhydrAMINE-acetaminophen (TYLENOL PM) 25-500 mg Tab, Take 2 (two) tablets by mouth nightly as needed ., Disp: , Rfl: estradioL (ESTRACE) 0.01 % (0.1 mg/gram) vaginal cream, insert 1 gram vaginally three times a week BEFORE BEDTIME, Disp: , Rfl: fluticasone propionate (FLOVENT HFA) 110 mcg/actuation inhaler, Inhale 2 (two) puffs 2 (two) times a day Rinse mouth after each use ., Disp: 3 each, Rfl: 0 furosemide (LASIX) 20 MG tablet, Take 1 (one) tablet (20 mg total) by mouth 2 (two) times a day ., Disp: 60 tablet, Rfl: 11 losartan (Cozaar) 100 MG tablet, Take 1 (one) tablet (100 mg total) by mouth daily ., Disp: 90 tablet, Rfl: 3 melatonin 5 mg Tab, Take by mouth ., Disp: , Rfl: methadone (DOLOPHINE) 5 MG tablet, Take 2 (two) tablets (10 mg total) by mouth 2 (two) times a day ., Disp: , Rfl: methenamine (HIPREX) 1 gram tablet, Take 1 (one) tablet (1 g total) by mouth 2 (two) times a day .,Disp: , Rfl: metoprolol succinate (TOPROL-XL) 50 MG 24 hr tablet, Take 1 (one) tablet (50 mg total) by mouth at bedtime ., Disp: 90 tablet, Rfl: 3 MULTIVIT-MIN/IRON/FOLIC/LUTEIN (CENTRUM SILVER WOMEN ORAL), Take 1 tablet by mouth daily., Disp: , Rfl: omeprazole (PRILOSEC) 40 MG capsule, Take 1 (one) capsule (40 mg total) by mouth daily ., Disp: , Rfl: vibegron (Gemtesa) 75 mg Tab, Take by mouth ., Disp: , Rfl: nitroGLYCERIN (NITROSTAT) 0.4 MG SL tablet, Place 1 (one) tablet (0.4 mg total) under the tongue every 5 (five) minutes as needed for chest pain , if no relief after 3 doses call 911 ., Disp: 25 tablet, Rfl: 3 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 prior biopsies no dysplasia last biopsies 08/2014 Benign carcinoid tumor of the duodenum 2014 Cancer (HCC) skin cancer-squamous cells removed Chronic kidney disease (CKD), stage III (moderate) (HCC) 09/12/2016 EGFR 43 Fibromyalgia Floating kidney GERD (gastroesophageal reflux disease) 2009 Hypertension 2000 Macular degeneration 2017 Myocardial infarction (HCC) 08/2018 STEMI Osteoporosis 2010 Trigeminal neuralgia of left side of face 2004 Vertigo Vitamin D deficiency 2016 Past Surgical History: Procedure Laterality Date BACK SURGERY 2013 fusion and rods placed in lower back. Cabrera donna. Dr Hinds BLADDER REPAIR 1989 CATARACT EXT/ECCE Bilateral 2011 Dr [place] CHOLECYSTECTOMY CYST REMOVAL Right 2000 cyst removal from rt breast-benign DILATION AND CURETTAGE (D AND C) 1970 x 2 EGD 01/01/2015 Dr. ZavalaKnhcfu-Lzthgujsu-Lnlfpol's esophagus EGD 08/2014 Dr. Vinicius RamachandranE-Zdzigbyyw-Pougokr's esophagitis biopsies negative for dysplasia. ESOPHAGOGASTRODUODENOSCOPY 01/04/2018 Dr. Zavala -biopsies performed-Kelly's esophagitis-carcinoid tumor posterior wall duodenum FRACTURE SURGERY Right Plates and screws in rt arm after fracture. dr Dolan LEFT HEART CATH N/A 08/23/2018 Procedure: Left Heart Cath; Surgeon: Glen Fair MD; Location: [facility]; Service: Cardiovascular HYSTERECTOMY 1974 KIDNEY SURGERY 1969 had exploratory surgery d/t floating kidney Dx KNEE SURGERY Left 1997 left knee arthoscopy LUMPECTOMY Left 1989 benign ORIF HIP GAMMA NAIL Right 04/02/2020 SQUAMOUS CELL CARCINOMA EXCISION x4 TOTAL KNEE ARTHROPLASTY Left 2012 dr dolan TUMOR REMOVAL 2011 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 Social History Socioeconomic History Marital status: Number of children: 2 Years of education: 12 Tobacco Use Smoking status: Former Packs/day: 0.00 Types: Cigarettes Quit date: 04/03/1976 Years since quittin.4 Smokeless tobacco: Never Vaping Use Vaping Use: Never used Substance and Sexual Activity Alcohol use: No Drug use: No Sexual activity: Never Social Determinants of Health Financial Resource Strain: Low Risk (10/15/2021) Overall Financial Resource Strain (CARDIA) Difficulty of Paying Living Expenses: Not hard at all Food Insecurity: No Food Insecurity (10/15/2021) Hunger Vital Sign Worried About Running Out of Food in the Last Year: Never true Ran Out of Food in the Last Year: Never true Transportation Needs: No Transportation Needs (10/15/2021) PRAPARE - Transportation Lack of Transportation (Medical): No Lack of Transportation (Non-Medical): No Physical Activity: Insufficiently Active (10/15/2021) Exercise Vital Sign Days of Exercise per Week: 2 days Minutes of Exercise per Session: 20 min Stress: Stress Concern Present (10/15/2021) Citizen Of [place] [employer] Occupational Health - Occupational Stress Questionnaire Feeling of Stress : To some extent Social Connections: Moderately Isolated (10/15/2021) Social Connection and Isolation Panel [NHANES] Frequency of Communication with Friends and Family: Twice a week Frequency of Social Gatherings with Friends and Family: Once a week Attends [employer] Services: 1 to 4 times per year Active Member of Clubs or Organizations: No Attends Club or Organization Meetings: Patient refused Marital Status: Housing Stability: Low Risk (10/15/2021) Housing Stability Vital Sign Unable to Pay for Housing in the Last Year: No Number of Places Lived in the Last Year: 1 Unstable Housing in the Last Year: No ROS: Review of Systems PE: Physical Exam Musculoskeletal: General: Tenderness present. Lumbar back: Tenderness and bony tenderness present. Decreased range of motion. Scoliosis present. Back: Imaging: B/L Hips: [id number]-pnfkrqqa bilateral femoroacetabular joint osteoarthrosis. Right femoral ORIF without evidence of complication. Chronic, healed fracture of the left inferior pubic ramus. Lumbar: Status post L5-S1 posterior fusion in similar alignment. Multilevel lumbar spondylosis with24 degrees of dextroscoliosis, also similar to previous. Assessment/Plan: After examination and reviewing of the patient x-ray images, we discussed continued treatment options. I did explain that these symptoms are most likely coming from her spine. She isgoing to discuss possible medication dose changes with her palliative care provider. I am happy to see her back as needed. documented in this [id number] Telephone encounter Note* Telephone Encounter - Francesca Mares RN - 08/05/2022 10:44 AM EDT Patient requesting refill for atorvastatin 40 mg to be sent to [facility]. Last OV with Dr. Schroeder on 11/12/21 and scheduled to RTC on 09/16 where she will have a repeat lipid panel ordered. [id number] Miscellaneous Notes* Telephone Encounter - Francesca Mares RN - 08/05/2022 10:44 AM EDT Patient requesting refill for atorvastatin 40 mg to be sent to [facility]. Last OV with Dr. Schroeder on 11/12/21 and scheduled to RTC on 09/16 where she will have a repeat lipid panel ordered. documented in this [id number] Rasmussen [facility] July 10, 2022 12:38pm Note Date/Time July 10, 2022 10:27a [facility] Medical Records Department [address] [place] [id number] Instructions for Home/Discharge Instructions 07/10/22 1025 MR#: [id number] Acct: [id number] Name: GLENNATALIABRIAN Castillo Rep #:[id number] : [id number] 87 From: Shantel Bobo PCP: CLAUDINE MAJANO MD [place] [facility] [place] Diet Discharge Diet: No restrictions Activity Discharge Activity: Return to Normal Activity Dressing / Incision Call your doctor if you observe: Fever of 101 or Higher, Inability to urinate and Inability to have a bowel movement Follow Up Care Please Follow Up With: Shantel Rasmussen MD When: call office for appt Test Results: Test results from this visit will be discussed in further detail at your follow- up appointment, if applicable. Discharge Plan Admission Attending Provider: Shantel Rasmussen Primary Care Provider: CLAUDINE MAJANO Discharge Orders/Prescriptions Prescriptions: New phenazopyridine [phenazopyridine] 100 mg tablet 100 mg PO TID Qty: 30 0RF Continued atorvastatin 40 mg Tablet 40 mg PO QHS metoprolol succinate 50 mg Tablet Extended Release 24 Hr 50 mg PO QHS amlodipine 5 mg Tablet 5 mg PO 1500 omeprazole 40 mg Capsule,Delayed Release(Dr/Ec) 40 mg PO BID aspirin [Ecotrin Low Strength] 81 mg Tablet,Delayed Release (Dr/Ec) 81 mg PO DAILY carbamazepine 200 mg Tablet 200 mg PO TID colesevelam 625 mg Tablet 1,875 mg PO BID carbamazepine 100 mg Tablet,Chewable 50 mg PO TID nitroglycerin 0.4 mg Tablet, Sublingual 0.4 mg SUBLINGUAL Q5M PRN (Reason: Chest Pain) Rx Instructions: do not exceed 3 doses per episode ascorbic acid (vitamin C) [Vitamin C] 500 mg Capsule, Extended Release 500 mg PO DAILY estradiol 0.01 % (0.1 mg/gram) Cream 1 g VAGINAL MOTHSA methadone 5 mg Tablet 5 mg PO BID losartan 100 mg Tablet 100 mg PO DAILY vitamin B6-vitamin E-magnesium Tablet 1 tab PO DAILY cholecalciferol (vitamin D3) [Vitamin D3] 50 mcg (2,000 unit) Capsule 50 mcg PO DAILY melatonin 5 mg Capsule 5 mg PO QHS Centrum Silver Women 8 mg iron-400 mcg-300 mcg Tablet 1 tab PO QHS Myrbetriq 50 mg Tablet Extended Release 24 Hr 50 mg PO BID Probiotic 3 billion cell Capsule 3,000 mmu cells PO DAILY Rx Instructions: administer with a meal hydroxyzine HCl 25 mg Tablet 25 mg PO BID PRN (Reason: Anxiety) Transdermal Pain Base Cream 1 applic MISCELLANEOUS PRN PRN (Reason: ARTHRITIS) Referrals / Follow Up: CLAUDINE MAJANO MD [Primary Care Provider] - Disposition Disposition (needs filled in before D/C Order can be placed): Home, Self Care 07/10/22 1238<Electronically signed by Shantel Rasmussen MD>Shantel Rasmussen MD CC: CLAUDINE MAJANO MD ~ Signed [facility] Work Phone: [phone] 102-887405-02-2023 Instructions* Patient Instructions* Brayan Mena MD - 07/08/2022 2:41 PM EDT We will check some blood test which may be done today. If no recurrent facial pain in few months, may reduce carbamazepine from 250 mg 3 times a day to carbamazepine 200 mg 3 times a day. Avoid trigger factors or precipitating factors. We will see you for follow-up visit in a year. documented in this [id number] History of Present illness Narrative* Brayan Mena MD - 07/08/2022 2:31 PM EDT Subjective Patient ID: Cat Carroll is a 87 y.o. female. Patient came for follow-up neurological evaluation. She had history of trigeminal neuralgia and diagnosed by Dr. Sweet more than 20 years ago. She also has been evaluated at [facility]. She started gabapentin and later carbamazepine. She thinks that gabapentin caused her to be dizzy and unsteady. Previously she is using gabapentin 400 mg 3 times a day and Topamax 50 mg 3 times a day. She also use misoprostol 100 mcg 3 times a day which caused abdominal upset. She has been on carbamazepine,topiramate, gabapentin, acupuncture, in the past. The acupuncture has helped but caused her $125 for a session and she 3 sessions a week. She was unable to afford it. Her pain is described as sharp shooting electrical pain mainly on the left V2 distribution and previously located left V1. She will have some residual soreness on the left supraorbital area. She denies any history of migraine, sinusitis, hearing loss, tinnitus, vertigo, or dental problems. Cold wind might trigger the pain and occasionally chewing might also cause the pain. No change in vision. Nospeech difficulty. She has been using carbamazepine 250 mg 3 times a day. She feels occasional twinges but not as severe as before. No new symptoms since last visit. Past medical history include hypertension, hyperlipidemia, coronary artery disease, osteoarthritis,tremors, Kelly's esophagus, chronic kidney disease, fibromyalgia, gastroesophageal reflux disorder, macular degeneration. No tobacco, alcohol, or recreational drug use. Family history is negative for trigeminal neuralgia but positive for tremors. The following portions of the patient's history were reviewed and updated as appropriate: allergies, current medications, past family history, past medical history, past social history, past surgicalhistory and problem list. All systems reviewed and negative except pertinent positives and negatives documented in the History of Present Illness (HPI). Objective Patient awake and alert. Flat affect. Patient is oriented. Attention and comprehension were intact. Behavior is appropriate. Follows simple commands. Speech is fluent and spontaneous. Language is intact. Pupils are 4 mm equally reactive to light. No ptosis, nystagmus, or gaze deviation. Extraocular muscles intact. Face is symmetrical. Hearing is grossly intact. Gross strength is intact with normal muscle tone and bulk. No muscle fasciculations. No tremors or abnormal movements. She ambulates with a quad cane. Assessment/Plan: Patient with chronic intermittent left trigeminal neuralgia initially diagnosed more than 20 years ago affecting left V2 and occasionally left V1 distribution. Differential diagnosis includes atypical facial pain. She had went for years without any attacks but has came back. Previous medication include Topamax 50 mg 3 times a day and gabapentin 400 mg 3 times a day. But she thinks the gabapentin has been causing her to be dizzy and unsteady and was unable to tolerate it. She also taken misoprostol 100 mcg 3 times a day but develop gastric side effects. She restarted carbamazepine currently taking 250 mg 3 times a day which she continues to take without any side effects. No recurrent facial pain noted. Brain MRI: 1. Nonspecific white matter changes may represent small-vessel ischemic disease in a patient of this age. Areas of encephalomalacia in the cerebellum may reflect remote ischemic injury. There is no evidence of acute ischemic injury. 2. Limited evaluation of the posterior fossa due to patient motion on The high- resolution axial T2 weighted images. A flow void does appear to at least abut the inner aspect of the proximal cisternalsegment of the left trigeminal nerve. Brain MRA: There are multifocal areas with attenuated flow related signal along the anterior and posterior circulation thought to largely e due to artifact. However, diminished flow can not be excluded. Impression: Chronic episodic left V1< V2 trigeminal neuralgia Hypertension Hyperlipidemia Tremors Osteoarthritis Coronary artery disease Kelly's esophagus Chronic kidney disease Fibromyalgia GERD Macular degeneration Suggestion: Recheck carbamazepine level and serum sodium. May continue carbamazepine 250 mg 3 times a day. If no recurrent facial pain for several months, may reduce carbamazepine to 200 mg 3 times a day. Watch closely for any dizziness, drowsiness, unsteadiness, double vision. Keep well-hydrated and increase dietary salt. Monitor for any drug interaction. May use ice pack as needed. We will see her for follow-up visit around 12 months. Diagnostic impression, plans, and suggestions were explained and discussed. Records from the referring physician were reviewed. Clinical imaging study/ labs/medical tests were ordered/reviewed. Indications, risk, complications, side effects and alternatives of medications/therapeutics were explained and discussed. Monitor closely for any side effects or complications of medications. Questions andconcerns were addressed. Please call or contact us for any problems. She will call us for an updatein 1 to 2 months. I will see her for follow-up visit in 4 months. Starla little: Portions of this chart was created using Evolve IP voice recognition software. Occasional wrong-word or sound-like substitutions may have occurred due to inherent limitations of the voice recognition software. Please read the chart carefully and recognize, using context, where the substitutions have occurred. Time Code: 31 minutes 1. Preparation for patient's visit (reviewing previous chart, current medical records, previous history, exam, test, procedure, and medications) 2. Face to face encounter obtaining history from the patient/family/caregivers; performing evaluation and examination; ordering medications, tests, or procedures; referring and communicating with other healthcare professionals; counseling and education of the patient/family/caregiver; independently interpreting results (tests, labs, procedures, imaging) and communicating and explaining results tothe patient/family/caregiver 3. Coordination of care; preparing and printing discharge instruction and any educational material for the patient and caregivers. Documenting clinical information in the electronic and other health records. Reviewing OARRS as needed. documented in this [id number] Telephone encounter Note* Telephone Encounter - Annita Guerra MA - 06/30/2022 9:59 AM EDT REQUESTING REFILL ON QUEUED MEDICATION(S). LAST OV:06/13/22 NEXT OV:07/25/22 [id number] Telephone encounter Note* Telephone Encounter - Annita Guerra MA - 06/30/2022 9:59 AM EDT ----- Message from Mariana Brasher sent at 06/30/2022 9:30 AM EDT ----- Regarding: rx refill Contact: self MEDICATION REFILL REQUEST: PCP: Claudine Majano MD Patient called 06/30/22 and is requesting a medication refill for fluticasone propionate (FLOVENT HFA) 110 mcg/actuation inhaler . This was confirmed from the current medication list found in the patients chart. Supply Requested: # of days: 90 days Method of receiving: Send to pharmacy Last set of flowsheet rows for OARRS report: OARRS/NARxCHECK Report Received and Assessed: 04/11/2020 Date controlled substance agreement signed: 03/15/2020 Date of last drug screen: No data found Functional Assessment: No data found Will this refill be sent to the preferred pharmacy listed below? Yes Preferred pharmacies: [facility] - [address] [address] Pt Call Back Number Work Phone Not on file. Patient call back message sent to the primary care clinical pool. Mariana Brasher [id number] Miscellaneous Notes* Telephone Encounter - Annita Guerra MA - 06/30/2022 9:59 AM EDT REQUESTING REFILL ON QUEUED MEDICATION(S). LAST OV:06/13/22 NEXT OV:07/25/22 * Telephone Encounter - Annita Guerra MA - 06/30/2022 9:59 AM EDT ----- Message from Mariana Brasher sent at 06/30/2022 9:30 AM EDT ----- Regarding: rx refill Contact: self MEDICATION REFILL REQUEST: PCP: Claudine Majano MD Patient called 06/30/22 and is requesting a medication refill for fluticasone propionate (FLOVENT HFA) 110 mcg/actuation inhaler . This was confirmed from the current medication list found in the patients chart. Supply Requested: # of days: 90 days Method of receiving: Send to pharmacy Last set of flowsheet rows for OARRS report: OARRS/NARxCHECK Report Received and Assessed: 04/11/2020 Date controlled substance agreement signed: 03/15/2020 Date of last drug screen: No data found Functional Assessment: No data found Will this refill be sent to the preferred pharmacy listed below? Yes Preferred pharmacies: [facility] - [address] [address] Pt Call Back Number Work Phone Not on file. Patient call back message sent to the primary care clinical pool. Mariana Brasher documented in this [id number] Evaluation + Plan note* Assessment & Plan Note - Claudine Majano MD - 06/13/2022 12:12 PM EDTAssociated Problem(s): Trigeminal neuralgia of left side of face Treated with carbamazepine currently at 250 mg along with methadone 5 mg twice daily that she takesthrough palliative hospice nurse. 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 * Assessment & Plan Note - Claudine Majano MD - 06/13/2022 12:11 PM EDTAssociated Problem(s): Anxiety Preprocedural, would benefit from an as needed medication to see if it helps with her symptoms. Hydroxyzine was given today while explaining side effects as it might make her tired and it could benefit with her sleep issues. Was told if 25 mg is not enough can take up to 50 mg 3 times a day as needed. We will reevaluate symptoms and review her biopsy results in 1 month. She will reach out to me sooner if it is not working. * Assessment & Plan Note - Claudine Majano MD - 06/13/2022 12:11 PM EDTAssociated Problem(s): Left hip pain Chronic SI joint. We will attempt compound cream to see if it gives her more relief. Continue on Tylenol as needed. Continue stretching exercises more frequent. If not getting better will refer back to orthopedics and explore steroid injections. documented in this [id number] Evaluation + Plan note* Assessment & Plan Note - Claudine Majano MD - 06/13/2022 12:11 PM EDTAssociated Problem(s): Anxiety Preprocedural, would benefit from an as needed medication to see if it helps with her symptoms. Hydroxyzine was given today while explaining side effects as it might make her tired and it could benefit with her sleep issues. Was told if 25 mg is not enough can take up to 50 mg 3 times a day as needed. We will reevaluate symptoms and review her biopsy results in 1 month. She will reach out to me sooner if it is not working. [id number] Evaluation + Plan note* Assessment & Plan Note - Claudine Majano MD - 06/13/2022 12:11 PM EDTAssociated Problem(s): Left hip pain Chronic SI joint. We will attempt compound cream to see if it gives her more relief. Continue on Tylenol as needed. Continue stretching exercises more frequent. If not getting better will refer back to orthopedics and explore steroid injections. [id number] History of Present illness Narrative* Claudine Majano MD - 06/13/2022 11:17 AM EDT Chief Complaint Patient presents with Follow-up 2 month- chronic conditions HPI: Cat Carroll is a 87 y.o. female presenting today for multiple concerns. Former patient of [facility]. Has PMH of prediabetes, coronary artery disease, IA previous, trigeminal neuralgia and chronic low back pain, Kelly's esophagus, fibromyalgia as well as urinary incontinence. Dysuria, chronic: Was treated for possible UTI along with her incontinence, has been following up with urogynecology with Dr. Javier and currently having the UTI under control with daily Keflex. Has had a constant cystoscopy done on 06/10 and revealed an area of inflammation/ulceration and the lateral right wall close to the ureteral of the orifice that needs further evaluation with biopsy that is scheduled next month. Currently very anxious especially with the upcoming procedure with Dr. Javier specially with the fact that her after bladder cancer. Sleep has been disturbed recently and has been using melatonin and Tylenol PM to help. Denies any associated depression and no SI or HI at this time. Fibromyalgia, carbamazepine along with methadone 5 mg twice daily that she gets from palliative nurse and hospice pathways. Mild systolic dysfunction: Echo last known LVEF of 45 to 50%. Continue metoprolol succinate 50 mg daily, losartan 100 mg daily Denies any symptoms of chest pain or shortness of breath. Left hip pain: Chronic, has been trying to manage it with Tylenol and Salonpas to see if it helps with minimal relief. Has seen by orthopedics in the past. Has never been assessed for steroid injection. Pain is happening daily, balancing with wide quad cane. 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 [place] donna. Dr Hinds BLADDER REPAIR 1989 CATARACT EXT/ECCE Bilateral 2011 Dr [place] CHOLECYSTECTOMY CYST REMOVAL Right 2000 cyst removal from rt breast-benign DILATION AND CURETTAGE (D AND C) 1970 x 2 EGD 01/01/2015 Dr. ZavalaLkupox-Fljcamznf-Vcoohkb's esophagus EGD 08/2014 Dr. Vinicius Pruett-Barrett's esophagitis biopsies negative for dysplasia. ESOPHAGOGASTRODUODENOSCOPY 01/04/2018 Dr. Zavala -biopsies performed-Kelly's esophagitis-carcinoid tumor posterior wall duodenum FRACTURE SURGERY Right Plates and screws in rt arm after fracture. dr Dolan [facility] LEFT HEART CATH N/A 08/23/2018 Procedure: Left Heart Cath; Surgeon: Glen Fair MD; Location: [facility]; Service: Cardiovascular HYSTERECTOMY 1975 KIDNEY SURGERY 1969 had exploratory surgery d/t floating kidney Dx KNEE SURGERY Left 1997 left knee arthoscopy LUMPECTOMY Left 1989 benign ORIF HIP GAMMA NAIL Right 04/02/2020 SQUAMOUS CELL CARCINOMA EXCISION x4 TOTAL KNEE ARTHROPLASTY Left 2012 dr dolan TUMOR REMOVAL 2011 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 Family History Problem Relation Age of Onset Diabetes Mother Heart disease Mother Heart disease Father Stroke Father Diabetes Sister Dementia Sister Heart disease Brother Diabetes Brother Diabetes Maternal Uncle Bipolar disorder Daughter Diabetes Son Cancer Neg Hx Aneurysm Neg Hx Seizures Neg Hx Social History Tobacco Use Smoking status: Former Packs/day: 0.00 Types: Cigarettes Quit date: 04/03/1976 Years since quittin.2 Smokeless tobacco: Never Vaping Use Vaping status: Never Used Substance Use Topics Alcohol use: No Drug use: No Review of Systems Vitals: 06/13/22 1101 06/13/22 1103 BP: (!) 166/77 (!) 158/73 BP Location: Left arm Left arm Patient Position: Sitting Sitting BP Cuff Size: Adult Adult Pulse: 69 Resp: 18 Temp: 97.8 F (36.6 C) TempSrc: Temporal SpO2: 98% Weight: 59.6 kg (131 lb 4.8 oz) Estimated body mass index is 22.54 kg/m as calculated from the following: Height as of 04/16/22: 5' 4. Weight as of this encounter: 59.6 kg (131 lb 4.8 oz). Physical Exam Constitutional: General: She is not in acute distress. Appearance: She is not ill-appearing. HENT: Head: Normocephalic and atraumatic. Eyes: Extraocular Movements: Extraocular movements intact. Conjunctiva/sclera: Conjunctivae normal. Pupils: Pupils are equal, round, and reactive to light. Cardiovascular: Rate and Rhythm: Normal rate and regular rhythm. Pulses: Normal pulses. Heart sounds: Normal heart sounds. No murmur heard. No gallop. Pulmonary: Effort: Pulmonary effort is normal. Breath sounds: Normal breath sounds. No wheezing, rhonchi or rales. Chest: Chest wall: No tenderness. Abdominal: General: Abdomen is flat. Bowel sounds are normal. There is no distension. Palpations: Abdomen is soft. There is no mass. Tenderness: There is no abdominal tenderness. There is no right CVA tenderness, left CVA tenderness, guarding or rebound. Musculoskeletal: General: No tenderness. Normal range of motion. Cervical back: Normal range of motion and neck supple. No rigidity. No muscular tenderness. Right lower leg: No edema. Left lower leg: No edema. Lymphadenopathy: Cervical: No cervical adenopathy. Skin: General: Skin is warm. Findings: No erythema or rash. Neurological: General: No focal deficit present. Mental Status: She is alert and oriented to person, place, and time. Sensory: No sensory deficit. Motor: No weakness. Gait: Gait normal. Psychiatric: Mood and Affect: Mood normal. Behavior: Behavior normal. Thought Content: Thought content normal. Judgment: Judgment normal. OARRS/NARxCHECK Report Received and Assessed: 04/11/2020 Date controlled substance agreement signed: 03/15/2020 Date of last drug screen: No data found Functional Assessment: No data found @Exam@ PHQ9: JOHNATHON-7 Tobacco Counseling: Counseling given: Not Answered Patient's Medications New Prescriptions HYDROXYZINE (VISTARIL) 25 MG CAPSULE Take 1 (one) capsule (25 mg total) by mouth 3 (three) times a day as needed for anxiety . Previous Medications AMLODIPINE (NORVASC) 5 MG TABLET Take 1 (one) tablet (5 mg total) by mouth daily . ASPIRIN 81 MG EC TABLET Take 1 (one) tablet (81 mg total) by mouth daily . ATORVASTATIN (LIPITOR) 40 MG TABLET Take 1 (one) tablet (40 mg total) by mouth nightly . CARBAMAZEPINE (TEGRETOL) 100 MG CHEWABLE TABLET Chew and Swallow 0.5 (one-half) tablet (50 mg total) 3 (three) times a day . CARBAMAZEPINE (TEGRETOL) 200 MG TABLET Take 1 (one) tablet (200 mg total) by mouth 3 (three) times a day . COLESEVELAM (WELCHOL) 625 MG TABLET Take 3 (three) tablets (1,875 mg total) by mouth 2 (two) times a day with meals Reasons: excessive fat in the blood. DIPHENHYDRAMINE-ACETAMINOPHEN (TYLENOL PM) 25-500 MG TAB Take 2 (two) tablets by mouth nightly as needed . ESTRADIOL (ESTRACE) 0.01 % (0.1 MG/GRAM) VAGINAL CREAM insert 1 gram vaginally three times a week BEFORE BEDTIME FLUTICASONE PROPIONATE (FLOVENT HFA) 110 MCG/ACTUATION INHALER Inhale 2 (two) puffs 2 (two) times aday Rinse mouth after each use . LOSARTAN (COZAAR) 100 MG TABLET Take 1 (one) tablet (100 mg total) by mouth daily . MELATONIN 5 MG TAB Take by mouth . METHADONE (DOLOPHINE) 5 MG TABLET Take 2 (two) tablets (10 mg total) by mouth 2 (two) times a day . METOPROLOL SUCCINATE (TOPROL-XL) 50 MG 24 HR TABLET Take 1 (one) tablet (50 mg total) by mouth at bedtime . MULTIVIT-MIN/IRON/FOLIC/LUTEIN (CENTRUM SILVER WOMEN ORAL) Take 1 tablet by mouth daily. MYRBETRIQ 25 MG TB24 Take 1 (one) tablet (25 mg total) by mouth 2 (two) times a day . NITROGLYCERIN (NITROSTAT) 0.[address] 1 (one) tablet (0.4 mg total) under the tongue every 5 (five) minutes as needed for chest pain , if no relief after 3 doses call 911 . OMEPRAZOLE (PRILOSEC) 40 MG CAPSULE Take 1 (one) capsule (40 mg total) by mouth daily . Modified Medications Modified Medication Previous Medication DICLOFENAC SODIUM 1 % GEL diclofenac sodium 1 % Gel 3 times a day . APPLY A SMALL AMOUNT TO AFFECTED AREA EVERY 6 HOURS NEEDED FOR PAIN Discontinued Medications CLOTRIMAZOLE-BETAMETHASONE (LOTRISONE) CREAM Apply topically 2 (two) times a day . Health Maintenance Due Topic Date Due Pneumococcal Vaccine: Age 65+ (1 - PCV) Never done Zoster Vaccines (1 of 2) Never done COVID-19 Vaccine (4 - Booster for Pfizer series) 09/17/2021 Ophthalmology Exam 05/14/2022 Assessment & Plan Problem List Items Addressed This Visit Nervous and Auditory Trigeminal neuralgia of left side of face Treated with carbamazepine currently at 250 mg along with methadone 5 mg twice daily that she takesthrough palliative hospice nurse. Other Anxiety - Primary Preprocedural, would benefit from an as needed medication to see if it helps with her symptoms. Hydroxyzine was given today while explaining side effects as it might make her tired and it could benefit with her sleep issues. Was told if 25 mg is not enough can take up to 50 mg 3 times a day as needed. We will reevaluate symptoms and review her biopsy results in 1 month. She will reach out to me sooner if it is not working. Relevant Medications hydrOXYzine (VISTARIL) 25 MG capsule Left hip pain Chronic SI joint. We will attempt compound cream to see if it gives her more relief. Continue on Tylenol as needed. Continue stretching exercises more frequent. If not getting better will refer back to orthopedics and explore steroid injections. Relevant Medications diclofenac sodium 1 % Gel Return in about 4 weeks (around 07/11/2022) for Follow Up. 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 We will recheck BMP today. Advised against salt tabs, will continue to monitor and follow neurology recommendations. 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 We will recheck BMP today. Advised against salt tabs, will continue to monitor and follow neurology recommendations. * Assessment & Plan Note - Claudine Majano MD - 04/16/2022 2:36 PM ESTAssociated Problem(s): Mixed incontinence urge and stress Ruling out any concurrent UTI at this time. Switching to a different regimen for from oxybutynin to Myrbetriq to monitor response. Referral to urogyn made today. * Assessment & Plan Note - Claudine Majano MD - 04/16/2022 2:35 PM ESTAssociated Problem(s): Frequent UTI Will order another UA and culture to monitor symptoms. * Assessment & Plan Note - Claudine Majano MD - 04/16/2022 2:34 PM ESTAssociated Problem(s): Chronic kidney disease (CKD), stage III (moderate) (HCC) Stable at this time, will continue to monitor through BMP ordered * Assessment & Plan Note - Claudine Majano MD - 04/16/2022 2:34 PM ESTAssociated Problem(s): Chronic bronchitis (HCC) Currently on Flovent that she takes regularly. Stable with no symptoms of increased shortness of breath. * Assessment & Plan Note - Claudine aMjano MD - 04/16/2022 9:44 AM ESTAssociated Problem(s): Vulvovaginal discomfort Follow the Vulvar skin care guidelines: * Do use the brand ALL Free Clear laundry detergent on all laundry. * Do NOT use fabric softeners or dryer sheets. White Vinegar in the washing machine as a fabric softener * Do use DOVE for sensitive skin body soap. Do NOT apply soap directly to vulva. * Do wear only all cotton underwear. Do NOT wear underwear at night. * Do use only non-deodorant tampons and pads. The pads should also be all cotton. * Do NOT wear a pad on a daily basis. * Do NOT shave your vulva, clip instead. LASER hair removal is acceptable. * Do use olive oil or vegetable as lubrication with intercourse. Discontinue: Skin Protectant: Daily - Zinc oxide ointment, Immaculata oil, Coconut oil, Vaseline or Vegetable oil Soaks/Rinses: Baking soda sitz baths, 1-2 times a day and/or callie rinse daily. Topically Treatment: to the irritated area: Vaginally treatment: Oral Medication: Switching to Myrbetriq from oxybutynin. Consults: Urogynecology for further evaluation. Cultures, Bloodwork and Tests Results: Will be notified either by telephone call, letter or My Chart when results are available. Does have dermatitis that would benefit from getting betamethasone along with clotrimazole to see if it helps. Cream twice a day for 1-2 weeks Advised to apply barrier cream after this episodes calms down. documented in this [id number] Evaluation + Plan note* Assessment & Plan Note - Claudine Majano MD - 04/16/2022 2:36 PM ESTAssociated Problem(s): Mixed incontinence urge and stress Ruling out any concurrent UTI at this time. Switching to a different regimen for from oxybutynin to Myrbetriq to monitor response. Referral to urogyn made today. [id number] Evaluation + Plan note* Assessment & Plan Note - Claudine Majano MD - 04/16/2022 2:35 PM ESTAssociated Problem(s): Frequent UTI Will order another UA and culture to monitor symptoms. [id number] Evaluation + Plan note* Assessment & Plan Note - Claudine Majano MD - 04/16/2022 2:34 PM ESTAssociated Problem(s): Chronic kidney disease (CKD), stage III (moderate) (HCC) Stable at this time, will continue to monitor through BMP ordered [id number] Evaluation + Plan note* Assessment & Plan Note - Claudine Majano MD - 04/16/2022 2:34 PM ESTAssociated Problem(s): Chronic bronchitis (HCC) Currently on Flovent that she takes regularly. Stable with no symptoms of increased shortness of breath. [id number] Instructions* Patient Instructions* Claudine Majano MD - 04/16/2022 9:48 AM EST Problem List Items Addressed This Visit Endocrine Diabetes mellitus (HCC) Respiratory Chronic bronchitis ([facility]) Genitourinary Chronic kidney disease (CKD), stage III (moderate) ([facility]) Relevant Orders Basic Metabolic Panel Frequent UTI - Primary Relevant Orders Urinalysis with microscopic Urine Aerobic Culture Other Mixed incontinence urge and stress Relevant Medications mirabegron (Myrbetriq) 25 mg Tb24 Other Relevant Orders Ambulatory referral to Urogynecology Vulvovaginal discomfort Follow the Vulvar skin care guidelines: * Do use the brand ALL Free Clear laundry detergent on all laundry. * Do NOT use fabric softeners or dryer sheets. White Vinegar in the washing machine as a fabric softener * Do use DOVE for sensitive skin body soap. Do NOT apply soap directly to vulva. * Do wear only all cotton underwear. Do NOT wear underwear at night. * Do use only non-deodorant tampons and pads. The pads should also be all cotton. * Do NOT wear a pad on a daily basis. * Do NOT shave your vulva, clip instead. LASER hair removal is acceptable. * Do use olive oil or vegetable as lubrication with intercourse. Discontinue: Skin Protectant: Daily - Zinc oxide ointment, Immaculata oil, Coconut oil, Vaseline or Vegetable oil Soaks/Rinses: Baking soda sitz baths, 1-2 times a day and/or callie rinse daily. Topically Treatment: to the irritated area: Vaginally treatment: Oral Medication: None at this time Consults: Physical Therapy to work Pelvic floor muscles. Physical therapy is a separate visit and will be billed separately. Cultures, Bloodwork and Tests Results: Will be notified either by telephone call, letter or My Chart when results are available. Follow-Up Appointment: Call if problems or Questions: Cream twice a day for 1-2 weeks Relevant Orders Ambulatory referral to Urogynecology Other Visit Diagnoses Chronic systolic heart failure (HCC) Hyponatremia Relevant Orders Basic Metabolic Panel Dermatitis Relevant Medications clotrimazole-betamethasone (Lotrisone) cream If any referrals were placed at the time of your visit please allow 2 weeks for processing. If you haven't heard from anyone within 2 weeks please contact my office so we can look into the status of your referral. If you were given any labs today please ensure they are completed according to the directions given. Once labs are completed please allow 1-2 weeks for us to receive the results, review them, and letyou know what steps, if any, are needed next. If you haven't heard from us after that please call to inquire. If labs were ordered to be done PRIOR to your next visit we will discuss the results at the time ofyour office visit. If any procedures or imaging studies were ordered that must be prior authorized please give us 2 weeks to get them approved. Once approved someone should call you to schedule them or give you a date and time that they were scheduled for. If you haven't heard anything within 2 weeks of the office visit please call the office so we can look into their status. Customer Service/Billing Questions: [phone] MyChart Assistance: [phone] or [phone] Financial Assistance: [phone] or [phone] As of March 14, 2019 my schedule will be changing: Thursday 7 am to 5 pm Thursday 7 am to 5 pm Thursday closed 7 am to 5 pm Thursday 7 am to 1 pm documented in this [id number] Evaluation + Plan note* Assessment & Plan Note - Claudine Majano MD - 04/16/2022 9:44 AM ESTAssociated Problem(s): Vulvovaginal discomfort Follow the Vulvar skin care guidelines: * Do use the brand ALL Free Clear laundry detergent on all laundry. * Do NOT use fabric softeners or dryer sheets. White Vinegar in the washing machine as a fabric softener * Do use DOVE for sensitive skin body soap. Do NOT apply soap directly to vulva. * Do wear only all cotton underwear. Do NOT wear underwear at night. * Do use only non-deodorant tampons and pads. The pads should also be all cotton. * Do NOT wear a pad on a daily basis. * Do NOT shave your vulva, clip instead. LASER hair removal is acceptable. * Do use olive oil or vegetable as lubrication with intercourse. Discontinue: Skin Protectant: Daily - Zinc oxide ointment, Immaculata oil, Coconut oil, Vaseline or Vegetable oil Soaks/Rinses: Baking soda sitz baths, 1-2 times a day and/or callie rinse daily. Topically Treatment: to the irritated area: Vaginally treatment: Oral Medication: Switching to Myrbetriq from oxybutynin. Consults: Urogynecology for further evaluation. Cultures, Bloodwork and Tests Results: Will be notified either by telephone call, letter or My Chart when results are available. Does have dermatitis that would benefit from getting betamethasone along with clotrimazole to see if it helps. Cream twice a day for 1-2 weeks Advised to apply barrier cream after this episodes calms down. [id number] History of Present illness Narrative* Claudine Majano MD - 04/16/2022 9:24 AM EST Chief Complaint Patient presents with Transition Of Care Gap Closure (Health Maintenance) There are no preventive care reminders to display for this patient. HPI: Cat Carroll is a 86-year-old female presenting today for MARISELA after presenting to the ER with right arm pain. Former patient of Gisell Desai. Has PMH of prediabetes, coronary artery disease, IA previous, trigeminal neuralgia and chronic low back pain, Kelly's esophagus, fibromyalgia as well as urinary incontinence. right arm pain 2 weeks ago at home, was not resolving after she took her nitroglycerin x3. Was advised by EMT to go to the ER for further evaluation. Initial cardiac work-up was negative, was advised to get admitted for further evaluation and ACS rule out. Right arm pain, likely musculoskeletal secondary to fibromyalgia Ruled out ACS in the setting of history of CAD and stent placement. EKG personally reviewed, no new ST or T wave changes, troponins negative x4. Follows with cardiology, I do not believe updating echo and stress test is necessary at this time Continue home aspirin as well as atorvastatin 40 mg Hyponatremia, chronic, stable, asymptomatic Secondary to carbamazepine use. 126 on discharge. Started taking salt tabs which she was advised that is not ideal, believes that it is actually helping her trigeminal neuralgia symptoms along with carbamazepine intake. Dysuria, chronic: Was treated for possible UTI along with her incontinence with Bactrim for 3 days and 1 dose of fluconazole. Painful urination still even after finishing antibiotic course. Does wear depends usually for her incontinence. Has been tried on oxybutynin in the past which did not help with her symptoms Fibromyalgia, carbamazepine Hypertension, resumed home losartan and metoprolol Added amlodipine, at home 120-130's SBP. Dizziness not worse and has it with carbamazepine Recent right ankle fracture, seen by podiatry, x-ray confirmed avulsion fracture of distal fibula, continue boot for 6 weeks and follow-up with podiatry Prediabetes: Borderline A1c last was 5.7. Mild systolic dysfunction: Echo last known LVEF of 45 to 50%. Continue metoprolol succinate 50 mg daily, losartan 100 mg daily 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 prior biopsies no dysplasia last biopsies 08/2014 Benign carcinoid tumor of the duodenum 2014 Cancer (HCC) skin cancer-squamous cells removed Chronic kidney disease (CKD), stage III (moderate) (HCC) 09/12/2016 EGFR 43 Fibromyalgia Floating kidney GERD (gastroesophageal reflux disease) 2010 Hypertension 1999 Macular degeneration 2017 Myocardial infarction (HCC) 08/2018 STEMI Osteoporosis 2010 Trigeminal neuralgia of left side of face 2005 Vertigo Vitamin D deficiency 2016 Past Surgical History: Procedure Laterality Date BACK SURGERY 2013 fusion and rods placed in lower back. Rick thompson. Dr Hinds BLADDER REPAIR 1989 CATARACT EXT/ECCE Bilateral 2011 Dr [place] CHOLECYSTECTOMY CYST REMOVAL Right 2000 cyst removal from rt breast-benign DILATION AND CURETTAGE (D AND C) 1970 x 2 EGD 01/01/2015 Dr. AlemanOunuzg-Kcjdspace-Vhihrxc's esophagus EGD 08/2014 Dr. Vinicius RamachandranH-Rhsvsuact-Oewsodw's esophagitis biopsies negative for dysplasia. ESOPHAGOGASTRODUODENOSCOPY 01/04/2018 Dr. Zavala -biopsies performed-Kelly's esophagitis-carcinoid tumor posterior wall duodenum FRACTURE SURGERY Right Plates and screws in rt arm after fracture. dr Dolan [facility] LEFT HEART CATH N/A 08/23/2018 Procedure: Left Heart Cath; Surgeon: Glen Fair MD; Location: [facility]; Service: Cardiovascular HYSTERECTOMY 1975 KIDNEY SURGERY 1969 had exploratory surgery d/t floating kidney Dx KNEE SURGERY Left 1998 left knee arthoscopy LUMPECTOMY Left 1989 benign ORIF HIP GAMMA NAIL Right 04/02/2020 SQUAMOUS CELL CARCINOMA EXCISION x4 TOTAL KNEE ARTHROPLASTY Left 2012 dr dolan TUMOR REMOVAL 2011 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 Family History Problem Relation Age of Onset Diabetes Mother Heart disease Mother Heart disease Father Stroke Father Diabetes Sister Dementia Sister Heart disease Brother Diabetes Brother Diabetes Maternal Uncle Bipolar disorder Daughter Diabetes Son Cancer Neg Hx Aneurysm Neg Hx Seizures Neg Hx Social History Tobacco Use Smoking status: Former Packs/day: 0.00 Types: Cigarettes Quit date: 04/03/1976 Years since quittin.0 Smokeless tobacco: Never Vaping Use Vaping Use: Never used Substance Use Topics Alcohol use: No Drug use: No Review of Systems Vitals: 04/16/22 0858 04/16/22 0906 BP: (!) 186/100 (!) 172/81 BP Location: Left arm Left arm Patient Position: Sitting Sitting BP Cuff Size: Adult Adult Pulse: 69 66 Resp: 16 Temp: 97.8 F (36.6 C) TempSrc: Temporal SpO2: 97% Weight: 59 kg (130 lb) Height: 5' 4 Estimated body mass index is 22.31 kg/m as calculated from the following: Height as of this encounter: 5' 4. Weight as of this encounter: 59 kg (130 lb). Physical Exam Constitutional: General: She is not in acute distress. Appearance: She is not ill-appearing. HENT: Head: Normocephalic and atraumatic. Eyes: Extraocular Movements: Extraocular movements intact. Conjunctiva/sclera: Conjunctivae normal. Pupils: Pupils are equal, round, and reactive to light. Cardiovascular: Rate and Rhythm: Normal rate and regular rhythm. Pulses: Normal pulses. Heart sounds: Normal heart sounds. No murmur heard. No gallop. Pulmonary: Effort: Pulmonary effort is normal. Breath sounds: Normal breath sounds. No wheezing, rhonchi or rales. Chest: Chest wall: No tenderness. Abdominal: General: Abdomen is flat. Bowel sounds are normal. There is no distension. Palpations: Abdomen is soft. There is no mass. Tenderness: There is no abdominal tenderness. There is no right CVA tenderness, left CVA tenderness, guarding or rebound. Genitourinary: Vagina: Vaginal discharge present. Comments: Significant erythema and swelling of valvular area marked congestion and erythema of the vaginal area with no thinning or dryness. Musculoskeletal: General: No tenderness. Normal range of motion. Cervical back: Normal range of motion and neck supple. No rigidity. No muscular tenderness. Right lower leg: No edema. Left lower leg: No edema. Lymphadenopathy: Cervical: No cervical adenopathy. Skin: General: Skin is warm. Findings: No erythema or rash. Neurological: General: No focal deficit present. Mental Status: She is alert and oriented to person, place, and time. Sensory: No sensory deficit. Motor: No weakness. Gait: Gait normal. Psychiatric: Mood and Affect: Mood normal. Behavior: Behavior normal. Thought Content: Thought content normal. Judgment: Judgment normal. OARRS/Dutch Report Received and Assessed: 04/11/2020 Date controlled substance agreement signed: 03/15/2020 Date of last drug screen: No data found Functional Assessment: No data found @Exam@ PHQ9: JOHNATHON-7 Tobacco Counseling: Counseling given: Not Answered Patient's Medications New Prescriptions CLOTRIMAZOLE-BETAMETHASONE (LOTRISONE) CREAM Apply topically 2 (two) times a day . MIRABEGRON (MYRBETRIQ) 25 MG TB24 Take 1 (one) tablet (25 mg total) by mouth daily . Previous Medications AMLODIPINE (NORVASC) 5 MG TABLET Take 1 (one) tablet (5 mg total) by mouth daily . ASPIRIN 81 MG EC TABLET Take 1 (one) tablet (81 mg total) by mouth daily . ATORVASTATIN (LIPITOR) 40 MG TABLET Take 1 (one) tablet (40 mg total) by mouth nightly . CARBAMAZEPINE (TEGRETOL) 100 MG CHEWABLE TABLET Chew and Swallow 0.5 (one-half) tablet (50 mg total) 3 (three) times a day . CARBAMAZEPINE (TEGRETOL) 200 MG TABLET Take 1 (one) tablet (200 mg total) by mouth 3 (three) times a day . COLESEVELAM (WELCHOL) 625 MG TABLET Take 3 (three) tablets (1,875 mg total) by mouth 2 (two) times a day with meals Reasons: excessive fat in the blood. DICLOFENAC SODIUM 1 % GEL APPLY A SMALL AMOUNT TO AFFECTED AREA EVERY 6 HOURS NEEDED FOR PAIN DIPHENHYDRAMINE-ACETAMINOPHEN (TYLENOL PM) 25-500 MG TAB Take 2 (two) tablets by mouth nightly as needed . FLUTICASONE PROPIONATE (FLOVENT HFA) 110 MCG/ACTUATION INHALER Inhale 2 (two) puffs 2 (two) times aday Rinse mouth after each use . LOSARTAN (COZAAR) 100 MG TABLET Take 1 (one) tablet (100 mg total) by mouth daily . MELATONIN 5 MG TAB Take by mouth . METHADONE (DOLOPHINE) 5 MG TABLET Take 2 (two) tablets (10 mg total) by mouth 2 (two) times a day . METOPROLOL SUCCINATE (TOPROL-XL) 50 MG 24 HR TABLET Take 1 (one) tablet (50 mg total) by mouth at bedtime . MULTIVIT-MIN/IRON/FOLIC/LUTEIN (CENTRUM SILVER WOMEN ORAL) Take 1 tablet by mouth daily. NITROGLYCERIN (NITROSTAT) 0.[address] 1 (one) tablet (0.4 mg total) under the tongue every 5 (five) minutes as needed for chest pain , if no relief after 3 doses call 911 . Modified Medications No medications on file Discontinued Medications OXYBUTYNIN (DITROPAN-XL) 5 MG 24 HR TABLET Take 1 (one) tablet (5 mg total) by mouth daily . Health Maintenance Due Topic Date Due Pneumococcal Vaccine: Age 65+ (1 - PCV) Never done Zoster Vaccines (1 of 2) Never done COVID-19 Vaccine (4 - Booster for Pfizer series) 09/17/2021 Assessment & Plan Problem List Items Addressed This Visit Endocrine RESOLVED: Diabetes mellitus (HCC) Respiratory Chronic bronchitis (HCC) Currently on Flovent that she takes regularly. Stable with no symptoms of increased shortness of breath. Genitourinary Chronic kidney disease (CKD), stage III (moderate) (HCC) Stable at this time, will continue to monitor through BMP ordered Relevant Orders Basic Metabolic Panel (Completed) Frequent UTI - Primary Will order another UA and culture to monitor symptoms. Relevant Orders Urinalysis with microscopic (Completed) Urine Aerobic Culture Other Mixed incontinence urge and stress Ruling out any concurrent UTI at this time. Switching to a different regimen for from oxybutynin to Myrbetriq to monitor response. Referral to urogyn made today. Relevant Medications mirabegron (Myrbetriq) 25 mg Tb24 Other Relevant Orders Ambulatory referral to Urogynecology Vulvovaginal discomfort Follow the Vulvar skin care guidelines: * Do use the brand ALL Free Clear laundry detergent on all laundry. * Do NOT use fabric softeners or dryer sheets. White Vinegar in the washing machine as a fabric softener * Do use DOVE for sensitive skin body soap. Do NOT apply soap directly to vulva. * Do wear only all cotton underwear. Do NOT wear underwear at night. * Do use only non-deodorant tampons and pads. The pads should also be all cotton. * Do NOT wear a pad on a daily basis. * Do NOT shave your vulva, clip instead. LASER hair removal is acceptable. * Do use olive oil or vegetable as lubrication with intercourse. Discontinue: Skin Protectant: Daily - Zinc oxide ointment, Immaculata oil, Coconut oil, Vaseline or Vegetable oil Soaks/Rinses: Baking soda sitz baths, 1-2 times a day and/or callie rinse daily. Topically Treatment: to the irritated area: Vaginally treatment: Oral Medication: Switching to Myrbetriq from oxybutynin. Consults: Urogynecology for further evaluation. Cultures, Bloodwork and Tests Results: Will be notified either by telephone call, letter or My Chart when results are available. Does have dermatitis that would benefit from getting betamethasone along with clotrimazole to see if it helps. Cream twice a day for 1-2 weeks Advised to apply barrier cream after this episodes calms down. 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 We will recheck BMP today. Advised against salt tabs, will continue to monitor and follow neurology recommendations. Relevant Orders Basic Metabolic Panel (Completed) Other Visit Diagnoses Dermatitis Relevant Medications clotrimazole-betamethasone (Lotrisone) cream I spent 40 minutes with patient reviewing HPI and coordinating plan of care. Return in about 2 months (around 06/14/2022) for Follow Up. CLAUDINE MAJANO MD [facility] [address] [facility] [address] [facility] [id number] Dept: [phone] documented in this [id number] Note* Plan of Care - Portillo Frederick RN - 04/05/2022 10:28 AM EST Patient discharge education complete and belongings returned. Walking boot returned and replaced. Patient leaving in [facility] due to son unable to get into her house to get clothes. Problem: Actual or potential alteration in health Goal: Absence of healthcare acquired conditions Outcome: Completed Goal: Knowledge of Interdisciplinary Plan of Care Outcome: Completed Goal: Knowledge of Enviroment Outcome: Completed Problem: Falls, Risk of Goal: Absence of falls Outcome: Completed Problem: Pain Goal: Manage acute pain Outcome: Completed Goal: Manage chronic pain Outcome: Completed Goal: Reduced pain sensation Outcome: Completed Goal: Achievement of comfort function goal Outcome: Completed [id number] Miscellaneous Notes* Plan of Care - Portillo Frederick RN - 04/05/2022 10:28 AM EST Patient discharge education complete and belongings returned. Walking boot returned and replaced. Patient leaving in [facility] due to son unable to get into her house to get clothes. Problem: Actual or potential alteration in health Goal: Absence of healthcare acquired conditions Outcome: Completed Goal: Knowledge of Interdisciplinary Plan of Care Outcome: Completed Goal: Knowledge of Enviroment Outcome: Completed Problem: Falls, Risk of Goal: Absence of falls Outcome: Completed Problem: Pain Goal: Manage acute pain Outcome: Completed Goal: Manage chronic pain Outcome: Completed Goal: Reduced pain sensation Outcome: Completed Goal: Achievement of comfort function goal Outcome: Completed * Plan of Care - Jam Chambers RN - 04/04/2022 2:53 PM EST Problem: Pain Goal: Manage acute pain Outcome: Met Goal: Manage chronic pain Outcome: Partially Met Goal: Reduced pain sensation Outcome: Partially Met Goal: Achievement of comfort function goal Outcome: Partially Met * Plan of Care - Jam Chambers RN - 04/04/2022 2:53 PM EST Problem: Falls, Risk of Goal: Absence of falls Outcome: Partially Met documented in this [id number] Hospital course Narrative* Tamra Dewey MD - 04/05/2022 10:19 AM EST Images from the original note were not included. [facility] [place] [facility] Cat Carroll Admitted: 04/04/2022 Discharge Date: 04/05/22 PCP Handoff Recommended Outpatient Testing Follow-up BMP as outpatient. Results Pending At Discharge None Clinical Summary Cat Carroll is a 86 y.o. female patient of Claudine Majano MD with history of pulmonary artery disease s/p stent placement, fibromyalgia, Kelly's esophagitis, carcinoid tumor, hypertension, who presented to the emergency room [place] for right arm pain, transferred to [facility] given concern for ACS. Patient has right arm pain last night, denies chest pain or chest pressure, presented at rest, she took 3 nitroglycerin pills without improvement of symptoms, she denies chest pain, shortness of breath. Patient complaining of dysuria, also right ankle pain. Right arm pain, likely musculoskeletal secondary to fibromyalgia Rule out ACS History of coronary artery disease s/p stent placement EKG personally reviewed, no new ST or T wave changes Troponin negative x4 Follows with cardiology as outpatient, presentation is atypical for ACS, recommended the patient follow-up with cardiology and obtain echocardiogram as outpatient if needed, she will follow-up with Dr. Cody Continue home aspirin Hyponatremia, chronic, stable, asymptomatic 126 Likely secondary to carbamazepine, she is being monitored by neurology, follow- up with PCP to repeat BMP Dysuria, chronic Incontinence Possible UTI UA reviewed, trace white blood cells and positive nitrate but symptomatic Discharged on 3 days of Bactrim and one-time fluconazole Not impressive for UTI, recommended the patient to follow-up with urology Fibromyalgia, carbamazepine Hypertension, resume home losartan and metoprolol Added amlodipine Recent right ankle fracture, seen by podiatry Dr. Cárdenas, x-ray confirmed avulsion fracture of distal fibula, continue boot for 6 weeks and follow-up with podiatry Discharge Medications Discharge Medications New Medications Details amLODIPine 5 MG tablet Commonly known as: NORVASC Take 1 (one) tablet (5 mg total) by mouth daily . Quantity: 30 tablet sulfamethoxazole-trimethoprim 800-160 mg per tablet Commonly known as: BACTRIM DS,SEPTRA DS Take 1 (one) tablet by mouth every 12 (twelve) hours . Quantity: 3 tablet Medications To Continue Details aspirin 81 MG EC tablet Take 1 (one) tablet (81 mg total) by mouth daily . atorvastatin 40 MG tablet Commonly known as: LIPITOR Take 1 (one) tablet (40 mg total) by mouth nightly . Quantity: 90 tablet * carBAMazepine 100 mg chewable tablet Commonly known as: TEGretol Chew and Swallow 0.5 (one-half) tablet (50 mg total) 3 (three) times a day . Quantity: 45 tablet * carBAMazepine 200 mg tablet Commonly known as: TEGRETOL Take 1 (one) tablet (200 mg total) by mouth 3 (three) times a day . Quantity: 270 tablet CENTRUM SILVER WOMEN ORAL Take 1 tablet by mouth daily. colesevelam 625 mg tablet Commonly known as: WELCHOL Take 3 (three) tablets (1,875 mg total) by mouth 2 (two) times a day with meals Reasons: excessive fat in the blood. diclofenac sodium 1 % Gel APPLY A SMALL AMOUNT TO AFFECTED AREA EVERY 6 HOURS NEEDED FOR PAIN diphenhydrAMINE-acetaminophen 25-500 mg Tab Commonly known as: TYLENOL PM Take 2 (two) tablets by mouth nightly as needed . fluticasone propionate 110 mcg/actuation inhaler Commonly known as: FLOVENT HFA Inhale 2 (two) puffs 2 (two) times a day Rinse mouth after each use . Quantity: 3 each losartan 100 MG tablet Commonly known as: Cozaar Take 1 (one) tablet (100 mg total) by mouth daily . Quantity: 90 tablet melatonin 5 mg Tab Take by mouth . methadone 5 MG tablet Commonly known as: DOLOPHINE Take 2 (two) tablets (10 mg total) by mouth 2 (two) times a day . metoprolol succinate 50 MG 24 hr tablet Commonly known as: TOPROL-XL Take 1 (one) tablet (50 mg total) by mouth at bedtime . Quantity: 90 tablet nitroGLYCERIN 0.4 MG SL tablet Commonly known as: NITROSTAT Place 1 (one) tablet (0.4 mg total) under the tongue every 5 (five) minutes as needed for chest pain , if no relief after 3 doses call 911 . Quantity: 25 tablet oxybutynin 5 MG 24 hr tablet Commonly known as: DITROPAN-XL Take 1 (one) tablet (5 mg total) by mouth daily . Quantity: 90 tablet * There are duplicate medications prescribed to the patient Physician(s) Follow Up: Claudine Majano MD [address] [phone] Follow up Joe Cody MD [address] [id number] Follow up Tae Olson MD [address] [phone] Follow up Condition at Discharge: Stable Disposition: Home On day of discharge, I performed a final bedside evaluation including a physical exam. I reviewed discharge recommendations with the patient in person. Patient instructions, including activity, were given to the patient/family at discharge. Time spent on discharge: > 30 minutes Completed by: Tamra Dewey on 04/05/22, 10:19 AM documented in this [id number] Note* Plan of Care - Jam Chambers RN - 04/04/2022 2:53 PM EST Problem: Pain Goal: Manage acute pain Outcome: Met Goal: Manage chronic pain Outcome: Partially Met Goal: Reduced pain sensation Outcome: Partially Met Goal: Achievement of comfort function goal Outcome: Partially Met [id number] Note* Plan of Care - Jam Chambers RN - 04/04/2022 2:53 PM EST Problem: Falls, Risk of Goal: Absence of falls Outcome: Partially Met [id number] Consult note* KEITH Mancuso - 04/04/2022 1:51 PM ESTAssociated Order(s): IP CONSULT TO CARE MANAGEMENT Care Management Consult Note Date: 04/04/2022 Time: 1:51 PM Patient Name: Cat Carroll Date of : 1935 Reason for Consult: Discharge Needs Discharge Plan: Discharging Transportation Plan: Discharge Plan Status: Met earlier with the patient. She lives in a mobile home with 3 steps and bilateral handrails to enter. She has a walk-in shower with grab bars and a seat. Her commode is handicap accessible and had a grab bar. The has a rollator walker and a quad cane at home. She said her daughter stays with her.She has [facility] at home. When she is discharged, her son will take her home. She is aware that she may discharge later today or tomorrow. The patient denies any needs and will plan to resume current services. Courtesy call to Jamel at [facility]. She indicated the patient was not getting hospice services and she would have someone from Palliative Care follow up with this worker. Addendum 1428: Received a call back from Maggie Coburn, with [facility]. She confirmed that the patientwas on their service. She requested that the discharge paperwork be faxed to [phone]. Faxed the referral. Assessment and Background Information: Living Arrangements: Family members Support Systems: Children Assistance Needed: [facility] with [facility] Type of Residence: Private residence Prior to Admission Home Care Services: Other (Comments) ([facility]) Type of Current Home Care Services: Other (Comment) Current Agency Name: Other ([facility]) [id number] Consult note* KEITH Mancuso - 04/04/2022 1:51 PM ESTAssociated Order(s): IP CONSULT TO CARE MANAGEMENT Care Management Consult Note Date: 04/04/2022 Time: 1:51 PM Patient Name: Cat Carroll Date of : 1935 Reason for Consult: Discharge Needs Discharge Plan: Discharging Transportation Plan: Discharge Plan Status: Met earlier with the patient. She lives in a mobile home with 3 steps and bilateral handrails to enter. She has a walk-in shower with grab bars and a seat. Her commode is handicap accessible and had a grab bar. The has a rollator walker and a quad cane at home. She said her daughter stays with her.She has [facility] at home. When she is discharged, her son will take her home. She is aware that she may discharge later today or tomorrow. The patient denies any needs and will plan to resume current services. Courtesy call to Jamel at [facility]. She indicated the patient was not getting hospice services and she would have someone from Palliative Care follow up with this worker. Addendum 1428: Received a call back from Maggie Coburn, with [facility]. She confirmed that the patientwas on their service. She requested that the discharge paperwork be faxed to [phone]. Faxed the referral. Assessment and Background Information: Living Arrangements: Family members Support Systems: Children Assistance Needed: [facility]HC with [facility] Type of Residence: Private residence Prior to Admission Home Care Services: Other (Comments) ([facility]) Type of Current Home Care Services: Other (Comment) Current Agency Name: Other ([facility]) documented in this [id number] History and physical note* Tamra Dewey MD - 04/04/2022 1:07 PM EST [facility] [place] [facility] [place] -- [facility] Patient Name: Cat Carroll : 1935 MR #: [id number] Admit Date: 04/04/2022 Physicians: Claudine Majano MD (Family); Dirk Tran (Referring) Cat Carroll is a 86 y.o. female patient of Claudine Majano MD with history of pulmonary artery disease s/p stent placement, fibromyalgia, Kelly's esophagitis, carcinoid tumor, hypertension, who presented to the emergency room [place] for right arm pain, transferred to [facility] given concern for ACS. Patient has right arm pain last night, denies chest pain or chest pressure, presented at rest, she took 3 nitroglycerin pills without improvement of symptoms, she denies chest pain, shortness of breath. Patient complaining of dysuria, also right ankle pain. Right arm pain Rule out ACS History of coronary artery disease s/p stent placement EKG personally reviewed, no new ST or T wave changes Troponin negative x3, check troponin, last time Follows with cardiology as outpatient, presentation is atypical for ACS, recommended the patient follow-up with cardiology and obtain echocardiogram as outpatient if needed Continue home aspirin Hyponatremia, likely hypovolemic 126 Start IV normal saline Check BMP in the morning Dysuria UA reviewed, trace white blood cells and positive nitrate but symptomatic Start the patient on Bactrim and one-time fluconazole Obtain repeat urine analysis and urine culture Fibromyalgia, carbamazepine Hypertension, resume home losartan and metoprolol Recent right ankle fracture, seen by podiatry Dr. Cárdenas, x-ray confirmed avulsion fracture of distal fibula, continue boot for 6 weeks and follow-up with podiatry Residence prior to admission: house or apartment [facility] care site [place] Quality Measures DVT Prophylaxis: lovenox Ghotra Catheter: absent Medication Reconciliation: Verified Risk variables present on admission:DNR, Hypovolemia, and Hyponatremia. Please see assessment and plan for further details. Code Status DNRCC-Arrest Chief Complaint right arm pain History of Present Illness Cat Carroll is a 86 y.o. female patient of Claudine Majano MD with history of pulmonary artery disease s/p stent placement, fibromyalgia, Kelly's esophagitis, carcinoid tumor, hypertension, who presented to the emergency room [place] for right arm pain, transferred to [facility] given concern for ACS. Patient has right arm pain last night, denies chest pain or chest pressure, presented at rest, she took 3 nitroglycerin pills without improvement of symptoms, she denies chest pain, shortness of breath. Patient complaining of dysuria, also right ankle pain. 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 prior biopsies no dysplasia last biopsies 08/2014 Benign carcinoid tumor of the duodenum 2014 Cancer (HCC) skin cancer-squamous cells removed Chronic kidney disease (CKD), stage III (moderate) (HCC) 09/12/2016 EGFR 43 Fibromyalgia Floating kidney GERD (gastroesophageal reflux disease) 2009 Hypertension 1999 Macular degeneration 2017 Myocardial infarction ([facility]) 08/2018 STEMI Osteoporosis 2010 Trigeminal neuralgia of left side of face 2005 Vertigo Vitamin D deficiency 2016 Past Surgical History Past Surgical History: Procedure Laterality Date BACK SURGERY 2013 fusion and rods placed in lower back. Rick thompson. Dr Hinds BLADDER REPAIR 1989 CATARACT EXT/ECCE Bilateral 2011 Dr arambula CHOLECYSTECTOMY CYST REMOVAL Right 2000 cyst removal from rt breast-benign DILATION AND CURETTAGE (D AND C) 1970 x 2 EGD 01/01/2015 Dr. ZavalaJfnmkm-Cnqnwkzbq-Dndegvp's esophagus EGD 08/2014 Dr. Vinicius Pruett-Barrett's esophagitis biopsies negative for dysplasia. ESOPHAGOGASTRODUODENOSCOPY 01/04/2018 Dr. Zavala -biopsies performed-Kelly's esophagitis-carcinoid tumor posterior wall duodenum FRACTURE SURGERY Right Plates and screws in rt arm after fracture. dr Dolan LEFT HEART CATH N/A 08/23/2018 Procedure: Left Heart Cath; Surgeon: Glen Fair MD; Location: [facility]; Service: Cardiovascular HYSTERECTOMY 1974 KIDNEY SURGERY 1969 had exploratory surgery d/t floating kidney Dx KNEE SURGERY Left 1997 left knee arthoscopy LUMPECTOMY Left 1989 benign ORIF HIP GAMMA NAIL Right 04/02/2020 SQUAMOUS CELL CARCINOMA EXCISION x4 TOTAL KNEE ARTHROPLASTY Left 2012 dr dolan TUMOR REMOVAL 2012 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 Family History Family History Problem Relation Age of Onset Diabetes Mother Heart disease Mother Heart disease Father Stroke Father Diabetes Sister Dementia Sister Heart disease Brother Diabetes Brother Diabetes Maternal Uncle Bipolar disorder Daughter Diabetes Son Cancer Neg Hx Aneurysm Neg Hx Seizures Neg Hx Social History Social History Tobacco Use Smoking Status Former Packs/day: 0.00 Types: Cigarettes Quit date: 04/03/1976 Years since quittin.0 Smokeless Tobacco Never Social History Substance and Sexual Activity Alcohol Use No Social History Substance and Sexual Activity Drug Use No Allergy Information I have reviewed the patient's allergies. Aspirin; Bacitracin zinc-polymyxin b; Codeine; Latex, natural rubber; Unhlzatc-tkxqcuasivq-bbwdhhfsv; Adhesive tape-silicones; and Hydrocortisone Home Medications Home medications were reviewed. Review Of Systems All relevant systems have been reviewed and are negative except as noted in HPI or below Physical Examination BP (!) 195/93 Pulse 79 Temp 98.2 F (36.8 C) (Oral) Resp 14 Ht 5' 4 Wt 58.5 kg (129 lb) SpO2 92% BMI 22.14 kg/m General Appearance: alert; chronically ill appearing; in no acute distress HEENT: Head- normocephalic; Eyes- EOMI, sclera anicteric; Throat- mucous membranes moist Cardiovascular: regular rate and rhythm; normal S1, S2; no murmurs, rubs, clicks or gallops; peripheral edema trace Respiratory: lungs clear to auscultation; without wheezes, rales or rhonchi; on room air Abdomen: soft, non-tender, non-distended Neurological: oriented x 3; normal speech; no focal findings or movement disorder noted Musculoskeletal: Right ankle swelling and tenderness Skin: normal coloration Psych: normal mood and affect Laboratory and Additional Data Reviewed Laboratory 04/04/22 1:14 PM Microbiology 04/04/22 1:14 PM Radiology 04/04/22 1:14 PM Cardiology 04/04/22 1:14 PM Medications 04/04/22 1:14 PM [id number] History and physical note* Tamra Dewey MD - 04/04/2022 1:07 PM EST [facility] [place] [facility] Patient Name: Cat Carroll : 1935 MR #: [id number] Admit Date: 04/04/2022 Physicians: Claudine Majano MD (Family); Dirk Tran (Referring) Cat Carroll is a 86 y.o. female patient of Claudine Majano MD with history of pulmonary artery disease s/p stent placement, fibromyalgia, Kelly's esophagitis, carcinoid tumor, hypertension, who presented to the emergency room [place] for right arm pain, transferred to [facility] given concern for ACS. Patient has right arm pain last night, denies chest pain or chest pressure, presented at rest, she took 3 nitroglycerin pills without improvement of symptoms, she denies chest pain, shortness of breath. Patient complaining of dysuria, also right ankle pain. Right arm pain Rule out ACS History of coronary artery disease s/p stent placement EKG personally reviewed, no new ST or T wave changes Troponin negative x3, check troponin, last time Follows with cardiology as outpatient, presentation is atypical for ACS, recommended the patient follow-up with cardiology and obtain echocardiogram as outpatient if needed Continue home aspirin Hyponatremia, likely hypovolemic 126 Start IV normal saline Check BMP in the morning Dysuria UA reviewed, trace white blood cells and positive nitrate but symptomatic Start the patient on Bactrim and one-time fluconazole Obtain repeat urine analysis and urine culture Fibromyalgia, carbamazepine Hypertension, resume home losartan and metoprolol Recent right ankle fracture, seen by podiatry Dr. Cárdenas, x-ray confirmed avulsion fracture of distal fibula, continue boot for 6 weeks and follow-up with podiatry Residence prior to admission: house or apartment Was patient transferred from [facility] or ED yes -- care site [place] Quality Measures DVT Prophylaxis: lovenox Ghotra Catheter: absent Medication Reconciliation: Verified Risk variables present on admission:DNR, Hypovolemia, and Hyponatremia. Please see assessment and plan for further details. Code Status DNRCC-Arrest Chief Complaint right arm pain History of Present Illness Cat Carroll is a 86 y.o. female patient of Claudine Majano MD with history of pulmonary artery disease s/p stent placement, fibromyalgia, Kelly's esophagitis, carcinoid tumor, hypertension, who presented to the emergency room [place] for right arm pain, transferred to [facility] given concern for ACS. Patient has right arm pain last night, denies chest pain or chest pressure, presented at rest, she took 3 nitroglycerin pills without improvement of symptoms, she denies chest pain, shortness of breath. Patient complaining of dysuria, also right ankle pain. 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 prior biopsies no dysplasia last biopsies 08/2014 Benign carcinoid tumor of the duodenum 2014 Cancer (HCC) skin cancer-squamous cells removed Chronic kidney disease (CKD), stage III (moderate) (HCC) 09/12/2016 EGFR 43 Fibromyalgia Floating kidney GERD (gastroesophageal reflux disease) 2009 Hypertension 1999 Macular degeneration 2017 Myocardial infarction (HCC) 08/2018 STEMI Osteoporosis 2010 Trigeminal neuralgia of left side of face 2005 Vertigo Vitamin D deficiency 2016 Past Surgical History Past Surgical History: Procedure Laterality Date BACK SURGERY 2013 fusion and rods placed in lower back. Rick thompson. Dr Hinds BLADDER REPAIR 1989 CATARACT EXT/ECCE Bilateral 2011 Dr arambula CHOLECYSTECTOMY CYST REMOVAL Right 1999 cyst removal from rt breast-benign DILATION AND CURETTAGE (D AND C) 1970 x 2 EGD 01/01/2015 Dr. ZavalaSzfpjo-Mmzgfcrbf-Sgheuhq's esophagus EGD 08/2014 Dr. Vinicius Pruett-Barrett's esophagitis biopsies negative for dysplasia. ESOPHAGOGASTRODUODENOSCOPY 01/04/2018 Dr. Zavala -biopsies performed-Kelly's esophagitis-carcinoid tumor posterior wall duodenum FRACTURE SURGERY Right Plates and screws in rt arm after fracture. dr Dolan LEFT HEART CATH N/A 08/23/2018 Procedure: Left Heart Cath; Surgeon: Glen Fair MD; Location: CUSTODIAN; Service: Cardiovascular HYSTERECTOMY 1974 KIDNEY SURGERY 1969 had exploratory surgery d/t floating kidney Dx KNEE SURGERY Left 1997 left knee arthoscopy LUMPECTOMY Left 1989 benign ORIF HIP GAMMA NAIL Right 04/02/2020 SQUAMOUS CELL CARCINOMA EXCISION x4 TOTAL KNEE ARTHROPLASTY Left 2013 dr dolan TUMOR REMOVAL 2012 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 Family History Family History Problem Relation Age of Onset Diabetes Mother Heart disease Mother Heart disease Father Stroke Father Diabetes Sister Dementia Sister Heart disease Brother Diabetes Brother Diabetes Maternal Uncle Bipolar disorder Daughter Diabetes Son Cancer Neg Hx Aneurysm Neg Hx Seizures Neg Hx Social History Social History Tobacco Use Smoking Status Former Packs/day: 0.00 Types: Cigarettes Quit date: 04/03/1976 Years since quittin.0 Smokeless Tobacco Never Social History Substance and Sexual Activity Alcohol Use No Social History Substance and Sexual Activity Drug Use No Allergy Information I have reviewed the patient's allergies. Aspirin; Bacitracin zinc-polymyxin b; Codeine; Latex, natural rubber; Aahjpeoj-ecytrnzclai-klmjlrdzq; Adhesive tape-silicones; and Hydrocortisone Home Medications Home medications were reviewed. Review Of Systems All relevant systems have been reviewed and are negative except as noted in HPI or below Physical Examination BP (!) 195/93 Pulse 79 Temp 98.2 F (36.8 C) (Oral) Resp 14 Ht 5' 4 Wt 58.5 kg (129 lb) SpO2 92% BMI 22.14 kg/m General Appearance: alert; chronically ill appearing; in no acute distress HEENT: Head- normocephalic; Eyes- EOMI, sclera anicteric; Throat- mucous membranes moist Cardiovascular: regular rate and rhythm; normal S1, S2; no murmurs, rubs, clicks or gallops; peripheral edema trace Respiratory: lungs clear to auscultation; without wheezes, rales or rhonchi; on room air Abdomen: soft, non-tender, non-distended Neurological: oriented x 3; normal speech; no focal findings or movement disorder noted Musculoskeletal: Right ankle swelling and tenderness Skin: normal coloration Psych: normal mood and affect Laboratory and Additional Data Reviewed Laboratory 04/04/22 1:14 PM Microbiology 04/04/22 1:14 PM Radiology 04/04/22 1:14 PM Cardiology 04/04/22 1:14 PM Medications 04/04/22 1:14 PM documented in this [id number] Telephone encounter Note* Telephone Encounter - Caitie Alvarez LPN - 04/02/2022 10:37 AM EST Last OV 02/11/22. Next OV 08/12/22. [id number] Miscellaneous Notes* Telephone Encounter - Caitie Alvarez LPN - 04/02/2022 10:37 AM EST Last OV 02/11/22. Next OV 08/12/22. * Telephone Encounter - Caitie Alvarez LPN - 04/02/2022 10:36 AM EST ----- Message from Etelvina Banegas sent at 04/02/2022 10:34 AM EST ----- Regarding: Refill MEDICATION REFILL REQUEST: PCP: Claudine Majano MD Patient called 04/02/22 and is requesting a medication refill for metoprolol succinate (TOPROL-XL) 50 MG 24 hr tablet This was confirmed from the current medication list found in the patients chart. Supply Requested: # of days: 90 days Method of receiving: Send to pharmacy Last set of flowsheet rows for OARRS report: OARRS/NARxCDIANNACK Report Received and Assessed: 04/11/2020 Date controlled substance agreement signed: 03/15/2020 Date of last drug screen: No data found Functional Assessment: No data found Will this refill be sent to the preferred pharmacy listed below? No, only for this refill. Please send to Preferred pharmacies: [facility] - [address] [address] Pt Call Back Number Patient call back message sent to the primary care clinical pool. Etelvina Banegas documented in this [id number] Telephone encounter Note* Telephone Encounter - Caitie Alvarez LPN - 04/02/2022 10:36 AM EST ----- Message from Etelvina Banegas sent at 04/02/2022 10:34 AM EST ----- Regarding: Refill MEDICATION REFILL REQUEST: PCP: Claudine Majano MD Patient called 04/02/22 and is requesting a medication refill for metoprolol succinate (TOPROL-XL) 50 MG 24 hr tablet This was confirmed from the current medication list found in the patients chart. Supply Requested: # of days: 90 days Method of receiving: Send to pharmacy Last set of flowsheet rows for OARRS report: OARRS/NARxCHECK Report Received and Assessed: 04/11/2020 Date controlled substance agreement signed: 03/15/2020 Date of last drug screen: No data found Functional Assessment: No data found Will this refill be sent to the preferred pharmacy listed below? No, only for this refill. Please send to Preferred pharmacies: [facility] - [address] [address] Pt Call Back Number Patient call back message sent to the primary care clinical pool. Etelvina Banegas [id number] Telephone encounter Note* Telephone Encounter - Caitie Alvarez LPN - 03/24/2022 12:15 PM EST Last OV 02/11/22. Next OV 08/12/22. [id number] Telephone encounter Note* Telephone Encounter - Caitie Alvarez LPN - 03/24/2022 12:15 PM EST ----- Message from Valerie Bangura sent at 03/24/2022 11:51 AM EST ----- Regarding: RX refill with mail service pharmacy MEDICATION REFILL REQUEST: PCP: Claudine Majano MD Patient called 03/24/22 and is requesting a medication refill for . atorvastatin (LIPITOR) 40 MG tablet, oxybutynin (DITROPAN-XL) 5 MG 24 hr tablet This was confirmed from the current medication list found in the patients chart. Supply Requested: # of days: 90 days Method of receiving: Send to pharmacy Last set of flowsheet rows for OARRS report: OARRS/NARxCHECK Report Received and Assessed: 04/11/2020 Date controlled substance agreement signed: 03/15/2020 Date of last drug screen: No data found Functional Assessment: No data found Will this refill be sent to the preferred pharmacy listed below? Yes Preferred pharmacies: [facility] - [address] [address] Note: please place these RX refills with mail pharmacy instead of local pharmacy Pt Call Back Number Work Phone Not on file. Patient call back message sent to the primary care clinical pool. Valerie Bangura [id number] Miscellaneous Notes* Telephone Encounter - Caitie Alvarez LPN - 03/24/2022 12:15 PM EST Last OV 02/11/22. Next OV 08/12/22. * Telephone Encounter - Caitie Alvarez LPN - 03/24/2022 12:15 PM EST ----- Message from Valerie Bangura sent at 03/24/2022 11:51 AM EST ----- Regarding: RX refill with mail service pharmacy MEDICATION REFILL REQUEST: PCP: Claudine Majano MD Patient called 03/24/22 and is requesting a medication refill for . atorvastatin (LIPITOR) 40 MG tablet, oxybutynin (DITROPAN-XL) 5 MG 24 hr tablet This was confirmed from the current medication list found in the patients chart. Supply Requested: # of days: 90 days Method of receiving: Send to pharmacy Last set of flowsheet rows for OARRS report: OARRS/NARxCHECK Report Received and Assessed: 04/11/2020 Date controlled substance agreement signed: 03/15/2020 Date of last drug screen: No data found Functional Assessment: No data found Will this refill be sent to the preferred pharmacy listed below? Yes Preferred pharmacies: [facility] - [address] [address] Note: please place these RX refills with mail pharmacy instead of local pharmacy Pt Call Back Number Work Phone Not on file. Patient call back message sent to the primary care clinical pool. Valerie Bangura documented in this [id number] Telephone encounter Note* Telephone Encounter - Lesley Bailey RN - 03/12/2022 3:27 PM EST LAST OV 02/11/22. NEXT OV SCHEDULED FOR 08/12/22. [id number] Telephone encounter Note* Telephone Encounter - Lesley Bailey RN - 03/12/2022 3:27 PM EST ----- Message from Dinesh Carr sent at 03/12/2022 1:42 PM EST ----- Regarding: RxRefill Contact: Cuca (call patient relations representative) at [employer] , reference#[id number] MEDICATION REFILL REQUEST: PCP: Claudine Majano MD Patient called 03/12/22 and is requesting a medication refill for fluticasone propionate (FLOVENT HFA) 110 mcg/actuation inhaler. This was confirmed from the current medication list found in the patients chart. Supply Requested: # of days: 90 days Method of receiving: Send to pharmacy Last set of flowsheet rows for OARRS report: OARRS/NARxCHECK Report Received and Assessed: 04/11/2020 Date controlled substance agreement signed: 03/15/2020 Date of last drug screen: No data found Functional Assessment: No data found Will this refill be sent to the preferred pharmacy listed below? Yes Preferred pharmacies: [facility] - [address] [address] Pt Call Back Number Work Phone Not on file. Patient call back message sent to the primary care clinical pool. Dinesh Carr [id number] Miscellaneous Notes* Telephone Encounter - Lesley Bailey RN - 03/12/2022 3:27 PM EST LAST OV 02/11/22. NEXT OV SCHEDULED FOR 08/12/22. * Telephone Encounter - Lesley Bailey RN - 03/12/2022 3:27 PM EST ----- Message from Dinesh Carr sent at 03/12/2022 1:42 PM EST ----- Regarding: RxRefill Contact: Cuca (call patient relations representative) at [employer] , reference#[id number] MEDICATION REFILL REQUEST: PCP: Claudine Majano MD Patient called 03/12/22 and is requesting a medication refill for fluticasone propionate (FLOVENT HFA) 110 mcg/actuation inhaler. This was confirmed from the current medication list found in the patients chart. Supply Requested: # of days: 90 days Method of receiving: Send to pharmacy Last set of flowsheet rows for OARRS report: OARRS/NARxCHECK Report Received and Assessed: 04/11/2020 Date controlled substance agreement signed: 03/15/2020 Date of last drug screen: No data found Functional Assessment: No data found Will this refill be sent to the preferred pharmacy listed below? Yes Preferred pharmacies: [facility] - [address] [address] Pt Call Back Number Work Phone Not on file. Patient call back message sent to the primary care clinical pool. Dinesh Carr documented in this [id number] Telephone encounter Note* Telephone Encounter - Caitie Alvarez LPN - 02/17/2022 12:05 PM EST Last OV 02/11/22. Next OV 08/12/22. [id number] Miscellaneous Notes* Telephone Encounter - Caitie Alvarez LPN - 02/17/2022 12:05 PM EST Last OV 02/11/22. Next OV 08/12/22. * Telephone Encounter - Caitie Alvarez LPN - 02/17/2022 12:04 PM EST ----- Message from Samara Padron sent at 02/17/2022 9:53 AM EST ----- Regarding: Rx refill Contact: Cat/self MEDICATION REFILL REQUEST: PCP: Claudine Majano MD Patient called 02/17/22 and is requesting a medication refill for metoprolol succinate (TOPROL-XL) 50 MG 24 hr [id number] itqwny120/08/2021 Sig - Route: Take 1 (one) tablet (50 mg total) by mouth at bedtime . - Oral Sent to pharmacy as: metoprolol succinate ER 50 mg tablet,extended release 24 hr (TOPROL-XL) E-Prescribing Status: Receipt confirmed by pharmacy (01/11/2021 12:51 PM EDT) . This was confirmed from the current medication list found in the patients chart. Supply Requested: # of days: 90 days Method of receiving: Send to pharmacy Last set of flowsheet rows for OARRS report: OARRS/NARxCHECK Report Received and Assessed: 04/11/2020 Date controlled substance agreement signed: 03/15/2020 Date of last drug screen: No data found Functional Assessment: No data found Will this refill be sent to the preferred pharmacy listed below? Yes Preferred pharmacies: [facility] - [address] [address] Pt Call Back Number Patient call back message sent to the primary care clinical pool. Samara Padron documented in this [id number] Telephone encounter Note* Telephone Encounter - Caitie Alvarez LPN - 02/17/2022 12:04 PM EST ----- Message from Samara Padron sent at 02/17/2022 9:53 AM EST ----- Regarding: Rx refill Contact: Natalialin/self MEDICATION REFILL REQUEST: PCP: Claudine Majano MD Patient called 02/17/22 and is requesting a medication refill for metoprolol succinate (TOPROL-XL) 50 MG 24 hr [id number] pizlrg848/08/2021 Sig - Route: Take 1 (one) tablet (50 mg total) by mouth at bedtime . - Oral Sent to pharmacy as: metoprolol succinate ER 50 mg tablet,extended release 24 hr (TOPROL-XL) E-Prescribing Status: Receipt confirmed by pharmacy (01/11/2021 12:51 PM EDT) . This was confirmed from the current medication list found in the patients chart. Supply Requested: # of days: 90 days Method of receiving: Send to pharmacy Last set of flowsheet rows for OARRS report: OARRS/NARxCHECK Report Received and Assessed: 04/11/2020 Date controlled substance agreement signed: 03/15/2020 Date of last drug screen: No data found Functional Assessment: No data found Will this refill be sent to the preferred pharmacy listed below? Yes Preferred pharmacies: [facility] - [address] [address] Pt Call Back Number Patient call back message sent to the primary care clinical pool. Samara Padron [id number] Evaluation + Plan note* Assessment & Plan Note - Claudine Majano MD - 02/12/2022 1:18 PM ESTAssociated Problem(s): Right ankle swelling Post traumatic , concern for fracture based on tenderness over lat malleolus Pain free Xray reviewed confirming avulsion fx of distal fibula . Will start on short boot for immobilizationfor 6 weeks [id number] Miscellaneous Notes* Assessment & Plan Note - Claudine Majano MD - 02/12/2022 1:18 PM ESTAssociated Problem(s): Right ankle swelling Post traumatic , concern for fracture based on tenderness over lat malleolus Pain free Xray reviewed confirming avulsion fx of distal fibula . Will start on short boot for immobilizationfor 6 weeks * Assessment & Plan Note - Claudine Majano MD - 02/12/2022 1:17 PM ESTAssociated Problem(s): Mixed incontinence urge and stress kegel exercises Timed toilet breaks Limiting caffeine Bladder diary myrbetriq was not approved by her insurance , oxybutinin is prescribed today to try again at XR form 5 mg daily * Assessment & Plan Note - Claudine Majano MD - 02/11/2022 2:00 PM ESTAssociated Problem(s): Medicare annual wellness visit, subsequent Does all ADLs, iADLs Has had hearing aids and has been wearing them with no concerns. Having difficulty driving at night , wears glasses. Follow up with ophthalmology in [facility]. Used to go every two years. Increased risk for dementia , will check MOCA in next visit Moderate risk falls and alternate between walker and cane Wishes to be DNR , forms given Has appointed both her kids as her DPOA for medical decisions. documented in this [id number] Evaluation + Plan note* Assessment & Plan Note - Claudine Majano MD - 02/12/2022 1:17 PM ESTAssociated Problem(s): Mixed incontinence urge and stress kegel exercises Timed toilet breaks Limiting caffeine Bladder diary myrbetriq was not approved by her insurance , oxybutinin is prescribed today to try again at XR form 5 mg daily [id number] Evaluation + Plan note* Assessment & Plan Note - Claudine Majano MD - 02/11/2022 2:00 PM ESTAssociated Problem(s): Medicare annual wellness visit, subsequent Does all ADLs, iADLs Has had hearing aids and has been wearing them with no concerns. Having difficulty driving at night , wears glasses. Follow up with ophthalmology in [place] [facility]. Used to go every two years. Increased risk for dementia , will check MOCA in next visit Moderate risk falls and alternate between walker and cane Wishes to be DNR , forms given Has appointed both her kids as her DPOA for medical decisions. [id number] Instructions* Patient Instructions* Claudine Majano MD - 02/11/2022 1:46 PM EST STEADI Low Risk Patient Instructions: Your Falls Screening today shows that you are at low risk for falls. To further protect yourself from falls and maintain your independence, we recommend: 1. Read through the brochure, What You Can Do to Prevent Falls (from CDC). 2. Go through the brochure, Check for Safety: A Home Fall Prevention Checklist for Older Adults (from [facility]), and make changes as recommended. 3. Join a community falls prevention program: Stepping On, a 7-week evidence based program that teaches balance exercises and fall prevention strategies [facility] for older adults, group exercise that teaches [facility] forms that reduce fall risk (weight shifting, postural alignment and control, and coordinated movements of the arms, legs, head, and trunk) Matter of Balance, an evidence based program designed to reduce the fear of falling and increase activity levels of older adults OR an exercise class for strength and balance. 4. Take your Vitamin D with or without Calcium, as determined by your healthcare provider. 5. Get your vision and hearing checked annually. Falls At Home Each year, thousands of older Americans fall at home. Many of them are seriously injured, and some are disabled. In 2011, nearly 23,000 people over age 65 and 2.4 million were treated in emergency departments because of falls. Falls are often due to hazards that are easy to overlook but easy to fix. This checklist will help you find and fix those hazards in your home. The checklist asks about hazards found in each room of your home. For each hazard, the checklist tells you how to fix the problem. At the end of the checklist, you ll find other tips for preventing falls. FLOORS: Look at the floor in each room. Q: When you walk through a room, do you have to walk around furniture? A. Ask someone to move the furniture so your path is clear Q: Do you have throw rugs on the floor? A. Remove the rugs or use double-sided tape or a non-slip backing so the rugs won t slip. Q: Are there papers, books, towels, shoes, magazines, boxes, blankets, or other objects on the floor? A.advertising supervisor things that are on the floor. Always keep objects off the floor. Q: Do you have to walk over or around wires or cords (like lamp, telephone, or extension cords)? A. Coil or tape cords and wires next to the wall so you can t trip over them. If needed, have an machine tool electrician put in another outlet. STAIRS AND STEPS: Look at the stairs you use both inside and outside your home. Q: Are there papers, shoes, books, or other objects on the stairs? A. advertising supervisor things on the stairs. Always keep objects off stairs. Q: Are some steps broken or uneven? A. Fix loose or uneven steps. Q: Are you missing a light over the stairway? A. Have an machine tool electrician put in an overhead light at the top and bottom of the stairs. Q: Do you have only one light switch for your stairs (only at the top or at the bottom of the stairs)? A. Have an machine tool electrician put in a light switch at the top and bottom of the stairs. You can get lightswitches that glow. Q: Has the stairway light bulb burned out? A. Have a friend or family member change the light bulb. Q: Is the carpet on the steps loose or torn? A. Make sure the carpet is firmly attached to every step, or remove the carpet and attach non-slip rubber treads to the stairs. Q: Are the handrails loose or broken? Is there a handrail on only one side of the stairs? A. Fix loose handrails or put in new ones. Make sure handrails are on both sides of the stairs and are as long as the stairs. KITCHEN: Look at your kitchen and eating area. Q: Are the things you use often on high shelves? A. Move items in your cabinets. Keep things you use often on the lower shelves (about waist level). Q: Is your step stool unsteady? A. If you must use a step stool, get one with a bar to hold on to. Never use a chair as a step stool. BATHROOMS: Look at all your bathrooms. Q: Is the tub or shower floor slippery? A. Put a non-slip rubber mat or self-stick strips on the floor of the tub or shower. Q: Do you need some support when you get in and out of the tub or up from the toilet? A. Have grab bars put in next to and inside the tub and next to the toilet. BEDROOMS: Look at all your bedrooms. Q: Is the light near the bed hard to reach? A. Place a lamp close to the bed where it s easy to reach. Q: Is the path from your bed to the bathroom dark? A. Put in a night-light so you can see where you re walking. Some night-lights go on by themselves after dark. Other Things You Can Do to Prevent Falls Do exercises that improve your balance and make your legs stronger. Exercise also helps you feel better and more confident. Have your doctor or pharmacist look at all the medicines you take, even rmmb-pxg-obicuze medicines.Some medicines can make you sleepy or dizzy. Have your eyes checked by an eye doctor at least once a year and update your glasses. Get up slowly after you sit or lie down. Wear shoes both inside and outside the house. Avoid going barefoot or wearing slippers. Improve the lighting in your home. Put in brighter light bulbs. Florescent bulbs are bright and cost less to use. It s safest to have uniform lighting in a room. Add lighting to dark areas. Hang lightweight curtains or shades to reduce glare. [place] a contrasting color on the top edge of all steps so you can see the stairs better. For example, use a light color paint on dark wood. To access this brochure online, please visit the CDC website at http://www.cdc.gov/steadi/pdf/check_for_safety_brochure-a.pdf Chair Rise Exercise What it does: Strengthens the muscles in your thighs & buttocks. Goal: To do this exercise without using your hands as you become stronger. How to do it: 1. Sit toward the front of a sturdy chair with your knees bent & feet flat on the floor shoulder-width apart 2. Rest your hands lightly on the seat on either side of you, keeping your back & neck straight& and chest slightly forward. 3. Breathe in slowly. Lean forward & feel your weight on the front of your feet. 4. Breathe out and slowly stand up, using your hands as little as possible. 5. Pause for a full breath in & out. 6. Breathe in as you slowly sit down. Do not let yourself collapse back down into the chair. Rather, control your lowering as much as possible. 7. Breathe out. Repeat 10-15 times. If this number is too hard for you when you first start practicing this exercise, begin with fewer and work up to this number. Rest for a minute & then do a final set of 10-15. For detailed instructions, please visit the CDC website at http://www.cdc.gov/steadi/pdf/chair_rise_exercise-a.pdf Stepping On is an evidence based program proven to reduce falls in older adults. It is a workshop offered once a week for seven weeks. In a small-group setting, you will learn balance exercises and develop specific knowledge and skills to prevent falls. Older adults who should attend are those who: are at risk of falling who have fallen one or more times lives at home are able to walk without the help of another person Local guest experts provide information on exercise, safety, vision, and medications. Classes are offered at [facility]. To find out specifics about a class, please call [phone]. [facility]: Moving for Better Balance involves low impact exercise. The 12-week class is offered for three hours per week and is led by a trained instructor ballroom dancing. It is intended for people aged 60 and older. Participants learn and perform a program of eight forms that progress from easy to more difficult. The program can accommodate persons with various physical conditions. Health Benefits of [facility]: Moving for Better Balance: Improved social and mental well-being, Improved balance and physical functioning, Improved confidence in conducting daily activities, Reduced risk of falling and sustaining associated injuries, and Maintained independence and improved quality of life. To find a [facility] program in your area or additional resources about fall prevention please contact: [facility] Violence and Injury Prevention Program at [phone] or [email or web address] A Matter of Balance: Managing Concerns about Falls is an evidence based program designed to reduce the fear of falling and increase activity levels of older adults. A trained stator connector leads 8 two-hour sessions for small groups of older adults. The class is intended for people 60 and older who are at risk of falling have a fear of falling or restrict activities who have fallen in the past are interested in improving flexibility, balance, and strength. Participants will learn to view falls as controllable, set goals to increase activity levels, and reduce fall risks at home. Classes are offered in all [address] [place] [address] in [place]. For more information about specific classes near you, please visit http://aging.[place].gov/steadyu/resources/matterofbalance.aspx. documented in this [id number] History of Present illness Narrative* Claudine Majano MD - 02/11/2022 1:45 PM EST Subjective Cat Carroll is a 86 y.o. female who presents for a Medicare Wellness Visit. Medicare Risk Assessment Do you have an Advanced Directive (Living Will and/or Durable Power of Security Field Supervisor for Health Care)? If not, would you like more information about Advanced Directives?: Yes What is your exercise level?: Light (like stretching/slow walking) What is your diet?: Regular Can you prepare your own meals?: Yes Do you have trouble with finding transportation?: No Because of any health problems, do you need the help of another person with your personal care needs? (For example, eating, bathing, dressing, or getting around the house.): No Does your home have throw rugs, poor lighting or slippery bathtub or shower?: No Does your home have grab bars in bathrooms or handrails on stairs and steps?: Yes During the past four weeks, how would you rate your health in general?: Very Good Whether or not you use a hearing aid, do you think you have a hearing problem or do others think you have a hearing problem?: (!) Yes Whether or not you use glasses or contacts, do you have difficulty driving, watching television, reading, or doing any of your daily activities because of your eyesight?: (!) Yes In the past six months, have you had an unexplained weight loss of 10 pounds or more?: No (at night) Do you take your medications as prescribed?: I do not miss doses of my medications During the past four weeks, how much have you been bothered by emotional problems such as feeling anxious, depressed, irritable, sad, or downhearted and blue?: Not at all During the past four weeks, has your physical and emotional health limited your social activites with family, friends, neighbors, or groups? : Not at all Provider/Supplier Name and Specialty: Elijah/Pallative care///Dr Schroeder/general hardware salesperson//Andreina Inman Grinding Room Inspector///Dr Rick Colvin Gastrotoligist///[facility]//Optomeestrist and Dr Brayan Mena/N eurologist///Dr Mahoney//Primary Physcian Has had hearing aids and has been wearing them with no concerns. Having difficulty driving at night , wears glasses. Falls Risk Assessment Is Patient Ambulatory?: Y Fell in past year: 0 (No) How many falls in the past year?: 0 Did any of these falls result in an injury?: No Unsteady when walks: 0 (No) Worried about fallin (Yes) Advised to use cane/walker?: 2 (Yes) Type of assistive device: Cane Holds onto furniture/case: 1 (Yes) Uses hands to stand up from a chair: 0 (No) Trouble stepping onto curb: 0 (No) Rushes to toilet: 1 (Yes) Lost feeling in feet: 0 (No) Medicine makes me light-headed: 0 (No) Medicine for sleep or mood: 1 (Yes) Often feel sad/depressed: 0 (No) Patient Self Risk Assessment Score: 6 Have you had your vision checked in the past 12 months?: Yes Timed Up and Go (TUG): 13-20 seconds (LICENSED CLINICIANS ONLY)Postural stability, gait, stride length, and sway: Slow tentative pace Medicare Mini Cog Step 1: Three Word Registration Version Used: Version 3: Village, Kitchen, Baby Step 2: Clock Drawing Step 2 score: (!) Inability or refusal to draw a clock - 0 points Step 3: Three Word Recall Record patient's answers to the right: baby village Step 3: Three Word Recall Score: 2 Words Recalled Total score = Word Recall score + Clock Draw score A cut point of <3 on the Mini-Cog has been validated for dementia screening, but many individuals with clinically meaningful cognitive impairment will score higher. A cut point of <4 may indicate a need for further evaluation of cognitive status.: (!) 2 Cat Carroll is a 86 y.o. female presenting today to [facility] care. Former patient of Gisell Giselle. Has PMH of prediabetes, coronary artery disease, IA previous, trigeminal neuralgia and chronic low back pain, Kelly's esophagus, fibromyalgia as well as urinary incontinence. Trigeminal neuralgia: Following up with neurology with Dr. Mena who is actively modifying her carbamazepine dose to balance benefits and dizzy spells and fatigue side effects that she is getting from it. Currently taking 250 mg 3 times daily. Also given misoprostol to help with gastritis side effect. Inquiring about gamma knife, considering second opinion through neurology at [facility]. Currently satisfied with dosage. Still receiving [facility] with [facility] with nurse practitioner Tana on methadone. Urinary incontinence: Chronic , urge and stress incontinence, usually needs to wear 2 depends to prevent any urinary leaks. Has been tried on oxybutynin in the past which did not help with her symptoms. Right ankle pain Twisted her ankle when she was putting lights in her flower bed , was able to bear weight on it . Swollen the next day. Pain resolving , put on biofreeze that seemed to help. 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 At moderate risk for fall Chronic bronchitis (HCC) Frequent UTI UTI (urinary tract infection) Iliocostal friction syndrome Left groin pain Anxiety Actinic keratosis Diabetes mellitus (HCC) Acute ST elevation myocardial infarction (STEMI) of inferior wall (HCC) Acute myocardial infarction (HCC) CAD (coronary artery disease) Kelly's esophagus Hypertension Hyperlipidemia 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, lumbar Chronic left SI joint pain Status post right hip replacement Scoliosis, unspecified Spinal stenosis, 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 neurogenic claudication Obstructive sleep apnea syndrome Neuralgia, neuritis, and radiculitis, unspecified Intervertebral disc disorders with radiculopathy, lumbosacral region 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 Dizziness Fracture of multiple pubic rami (HCC) Multiple rib fractures Dysuria Left hip pain Lumbar degenerative disc disease Medicare annual wellness visit, subsequent Right ankle swelling 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 prior biopsies no dysplasia last biopsies 08/2014 Benign carcinoid tumor of the duodenum 2014 Cancer ([facility]) skin cancer-squamous cells removed Chronic kidney disease (CKD), stage III (moderate) ([facility]) 09/12/2016 EGFR 43 Fibromyalgia Floating kidney GERD (gastroesophageal reflux disease) 2009 Hypertension 1999 Macular degeneration 2017 Myocardial infarction (HCC) 08/2018 STEMI Osteoporosis 2010 Trigeminal neuralgia of left side of face 2005 Vertigo Vitamin D deficiency 2016 Past Surgical History: Procedure Laterality Date BACK SURGERY 2013 fusion and rods placed in lower back. Rick thompson. Dr Hinds BLADDER REPAIR 1989 CATARACT EXT/ECCE Bilateral 2011 Dr [place] CHOLECYSTECTOMY CYST REMOVAL Right 2000 cyst removal from rt breast-benign DILATION AND CURETTAGE (D AND C) 1970 x 2 EGD 01/01/2015 Dr. ZavalaKlqzct-Cfnmbkrdl-Nxzsqcv's esophagus EGD 08/2014 Dr. Vinicius Pruett-Barrett's esophagitis biopsies negative for dysplasia. ESOPHAGOGASTRODUODENOSCOPY 01/04/2018 Dr. Zavala -biopsies performed-Kelly's esophagitis-carcinoid tumor posterior wall duodenum FRACTURE SURGERY Right Plates and screws in rt arm after fracture. dr Dolan LEFT HEART CATH N/A 08/23/2018 Procedure: Left Heart Cath; Surgeon: Glen Fair MD; Location: [facility]OD[facility]; Service: Cardiovascular HYSTERECTOMY 1974 KIDNEY SURGERY 1968 had exploratory surgery d/t floating kidney Dx KNEE SURGERY Left 1998 left knee arthoscopy LUMPECTOMY Left 1989 benign ORIF HIP GAMMA NAIL Right 04/02/2020 SQUAMOUS CELL CARCINOMA EXCISION x4 TOTAL KNEE ARTHROPLASTY Left 2012 dr dolan TUMOR REMOVAL 2011 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 Current Outpatient Medications Medication Sig Dispense Refill aspirin 81 MG EC tablet Take 1 (one) tablet (81 mg total) by mouth daily . atorvastatin (LIPITOR) 40 MG tablet Take 1 (one) tablet (40 mg total) by mouth nightly . 90 tablet 0 carBAMazepine (TEGretol) 100 mg chewable tablet Chew and Swallow 0.5 (one-half) tablet (50 mg total) 3 (three) times a day . 45 tablet 11 carBAMazepine (TEGRETOL) 200 mg tablet Take 1 (one) tablet (200 mg total) by mouth 3 (three) times a day . 270 tablet 3 diclofenac sodium 1 % Gel APPLY A SMALL AMOUNT TO AFFECTED AREA EVERY 6 HOURS NEEDED FOR PAIN diphenhydrAMINE-acetaminophen (TYLENOL PM) 25-500 mg Tab Take 2 (two) tablets by mouth nightly as needed . fluticasone propionate (FLOVENT HFA) 110 mcg/actuation inhaler Inhale 2 (two) puffs 2 (two) times aday Rinse mouth after each use . 3 each 3 losartan (Cozaar) 100 MG tablet Take 1 (one) tablet (100 mg total) by mouth daily . 90 tablet 3 melatonin 5 mg Tab Take by mouth . methadone (DOLOPHINE) 5 MG tablet Take 2 (two) tablets (10 mg total) by mouth 2 (two) times a day . metoprolol succinate (TOPROL-XL) 50 MG 24 hr tablet Take 1 (one) tablet (50 mg total) by mouth at bedtime . 90 tablet 3 MULTIVIT-MIN/IRON/FOLIC/LUTEIN (CENTRUM SILVER WOMEN ORAL) Take 1 tablet by mouth daily. nitroGLYCERIN (NITROSTAT) 0.[address] 1 (one) tablet (0.4 mg total) under the tongue every 5 (five) minutes as needed for chest pain , if no relief after 3 doses call 911 . 25 tablet 3 oxybutynin (DITROPAN-XL) 5 MG 24 hr tablet Take 1 (one) tablet (5 mg total) by mouth daily . 30 tablet 11 No current facility-administered medications for this visit. Social History Socioeconomic History Marital status: Number of children: 2 Years of education: 12 Tobacco Use Smoking status: Former Packs/day: 0.00 Types: Cigarettes Quit date: 04/03/1976 Years since quittin.8 Smokeless tobacco: Never Vaping Use Vaping Use: Never used Substance and Sexual Activity Alcohol use: No Drug use: No Sexual activity: Never Social Determinants of Health Financial Resource Strain: Low Risk Difficulty of Paying Living Expenses: Not hard at all Food Insecurity: No Food Insecurity Worried About Running Out of Food in the Last Year: Never true Ran Out of Food in the Last Year: Never true Transportation Needs: No Transportation Needs Lack of Transportation (Medical): No Lack of Transportation (Non-Medical): No Physical Activity: Insufficiently Active Days of Exercise per Week: 2 days Minutes of Exercise per Session: 20 min Stress: Stress Concern Present Feeling of Stress : To some extent Social Connections: Moderately Isolated Frequency of Communication with Friends and Family: Twice a week Frequency of Social Gatherings with Friends and Family: Once a week Attends [employer] Services: 1 to 4 times per year Active Member of Clubs or Organizations: No Attends Club or Organization Meetings: Patient refused Marital Status: Housing Stability: Low Risk Unable to Pay for Housing in the Last Year: No Number of Places Lived in the Last Year: 1 Unstable Housing in the Last Year: No Allergies: Allergies Allergen Reactions Aspirin GI Intolerance Indigestion Bacitracin Zinc-Polymyxin B Codeine Unknown Latex, Natural Rubber Unknown Exdnnztg-Hrkotxktybi-Pfxflulem Adhesive Tape-Silicones Rash Hydrocortisone Rash Care Team Patient Care Team: Claudine Majano MD as PCP - General (Family Medicine) Marck Peng DO (Otolaryngology (ENT)) Pharmacy / Equipment Co. (DME) [id number] - [place], [place] - [address] [place] [id number] [facility] - [address] [address] Objective Blood pressure (!) 169/93, pulse 81, temperature 98.8 F (37.1 C), temperature source Temporal, resp. rate 16, height 5' 4, weight 58.5 kg (129 lb), SpO2 98 %, not currently . Body mass index is 22.14 kg/m . Vitals: PACU Vitals 02/11/22 1335 BP: (!) 169/93 Pulse: 81 Resp: Temp: SpO2: Vision and Hearing Screen: No results found. General exam: General appearance: alert, cooperative, no distress, appears stated age Head: Normocephalic, without obvious abnormality Eyes: conjunctivae/corneas clear. PERRL, EOM's intact. Ears: normal TM's and external ear canals AU Nose: Nares normal. Septum midline. Mucosa normal. No drainage or sinus tenderness. Throat: Lips, mucosa, and tongue normal. Teeth and gums normal Neck: supple, symmetrical, trachea midline, no adenopathy and thyroid: not enlarged, symmetric, no tenderness/mass/nodules Lungs: clear to auscultation bilaterally Heart: regular rate and rhythm, S1, S2 normal, no murmur, click, rub or gallop Abdomen: soft, non-tender. Bowel sounds normal. No masses, no organomegaly Extremities: increased swelling over right ankle , tenderness over lat malleolus and normal ROM Pulses: 2+ and symmetric Skin: Skin color, texture, turgor normal. No rashes or lesions Lymph nodes: Cervical, supraclavicular, and axillary nodes normal. Neurologic: Grossly normal Assessment: The primary encounter diagnosis was At low risk for fall. Diagnoses of Mixed incontinence urge and stress, Medicare annual wellness visit, subsequent, and Right ankle swelling were also pertinent to this visit. Plan: During the course of the visit the patient was educated and counseled about appropriate screening and preventive services including: Advice / Referrals: Provide [facility] patient instructions Problem List Items Addressed This Visit Other Mixed incontinence urge and stress kegel exercises Timed toilet breaks Limiting caffeine Bladder diary myrbetriq was not approved by her insurance , oxybutinin is prescribed today to try again at XR form 5 mg daily Relevant Medications oxybutynin (DITROPAN-XL) 5 MG 24 hr tablet Medicare annual wellness visit, subsequent Does all ADLs, iADLs Has had hearing aids and has been wearing them with no concerns. Having difficulty driving at night , wears glasses. Follow up with ophthalmology in [facility]. Used to go every two years. Increased risk for dementia , will check MOCA in next visit Moderate risk falls and alternate between walker and cane Wishes to be DNR , forms given Has appointed both her kids as her DPOA for medical decisions. Right ankle swelling Post traumatic , concern for fracture based on tenderness over lat malleolus Pain free Xray reviewed confirming avulsion fx of distal fibula . Will start on short boot for immobilizationfor 6 weeks Other Visit Diagnoses At low risk for fall - Primary 5-Year Plan: Health Maintenance Topic Date Due COVID-19 Vaccine (4 - Booster for Pfizer series) 09/17/2021 Pneumococcal Vaccine: Age 65+ (1 - PCV) 03/15/2022 (Originally 1941) Zoster Vaccines (1 of 2) 03/15/2022 (Originally 05/16/1954) Sequential Influenza Vaccine (1) 09/05/2022 (Originally 11/07/2021) Ophthalmology Exam 05/14/2022 A1C 06/19/2022 Lipid Panel 12/19/2022 Urine Microalbumin 12/19/2022 Falls Risk Assessment 02/11/2023 Wellness Visit 02/11/2023 Tetanus: Every 10yrs 12/25/2030 Dexa Scan Addressed Foot Exam Discontinued Patient Instructions (the written plan) was given to the patient. Depression Screening 03/26/2017 03/23/2018 08/23/2018 12/22/2018 01/12/2020 03/15/2020 02/11/2022 Little interest or pleasure in doing things 0 0 0 0 0 3 0 Feeling down, depressed, or hopeless 0 0 0 0 1 2 0 PHQ-2 Total Score 0 0 0 0 1 5 0 Trouble falling or staying asleep, or sleeping too much - - - 0 1 0 1 Feeling tired or having little energy - - - 0 1 1 1 Poor appetite or overeating - - - 1 0 1 0 Feeling bad about yourself - or that you are a failure or have let yourself or your family down - -- 0 0 1 0 Trouble concentrating on things, such as reading the newspaper or watching television - - - 0 0 0 0 Moving or speaking so slowly that other people could have noticed. Or the opposite - being so fidgety or restless that you have been moving around a lot more than usual - - - 0 0 0 0 Thoughts that you would be better off , or of hurting yourself in some way - - - 0 0 1 0 PHQ-9 Total Score - - - 1 3 9 2 RETIRED - PHQ-9 Total Score - - - - - - - If you checked off any problems, how difficult have these problems made it for you to do your work,take care of things at home, or get along with other people? - - - Not difficult at all Not difficult at all Very difficult Not difficult at all documented in this [id number] Telephone encounter Note* Telephone Encounter - Caitie Alvarez LPN - 01/28/2022 1:40 PM EST Last OV 12/19/21. Next OV 02/11/22. [id number] Miscellaneous Notes* Telephone Encounter - Caitie Alvarez LPN - 01/28/2022 1:40 PM EST Last OV 12/19/21. Next OV 02/11/22. * Telephone Encounter - Caitie Alvarez LPN - 01/28/2022 1:39 PM EST ----- Message from Niki Ritter sent at 01/28/2022 1:34 PM EST ----- Regarding: RX refill MEDICATION REFILL REQUEST: PCP: Claudine Majnao MD Patient called 01/28/22 and is requesting a medication refill for cholestyramine (QUESTRAN) 4 gram [id number] g108/16/2021 Sig - Route: Take 1 (one) Scoopful (4 g total) by mouth daily . - Oral This was confirmed from the current medication list found in the patients chart. Supply Requested: # of days: 90 days Method of receiving: Send to pharmacy Last set of flowsheet rows for OARRS report: OARRS/NARxCHECK Report Received and Assessed: 04/11/2020 Date controlled substance agreement signed: 03/15/2020 Date of last drug screen: No data found Functional Assessment: No data found Will this refill be sent to the preferred pharmacy listed below? Yes Preferred pharmacies: [facility] - [place] [phone] Pt Call Back Number Work Phone Not on file. Patient call back message sent to the primary care clinical pool. Niki Ritter documented in this [id number] Telephone encounter Note* Telephone Encounter - Caitie Alvarez LPN - 01/28/2022 1:39 PM EST ----- Message from Niki Ritter sent at 01/28/2022 1:34 PM EST ----- Regarding: RX refill MEDICATION REFILL REQUEST: PCP: Claudine Majano MD Patient called 01/28/22 and is requesting a medication refill for cholestyramine (QUESTRAN) 4 gram [id number] g108/16/2021 Sig - Route: Take 1 (one) Scoopful (4 g total) by mouth daily . - Oral This was confirmed from the current medication list found in the patients chart. Supply Requested: # of days: 90 days Method of receiving: Send to pharmacy Last set of flowsheet rows for OARRS report: OARRS/NARxCHECK Report Received and Assessed: 04/11/2020 Date controlled substance agreement signed: 03/15/2020 Date of last drug screen: No data found Functional Assessment: No data found Will this refill be sent to the preferred pharmacy listed below? Yes Preferred pharmacies: [facility] - [address] [address] Pt Call Back Number Work Phone Not on file. Patient call back message sent to the primary care clinical pool. Niki Ritter [id number] Instructions* Patient Instructions* Brayan Mena MD - 01/08/2022 2:51 PM EDT Continue carbamazepine 250 mg 3 times a day. Keep well-hydrated and increase dietary salt. We will get some blood tests which may be done today. Keep well-hydrated. We will see her for follow-up visit in 6 months. documented in this [id number] History of Present illness Narrative* Brayan Mena MD - 01/08/2022 2:34 PM EDT Subjective Patient ID: Cat Carroll is a 86 y.o. female. Patient came for follow-up neurological evaluation. She had history of trigeminal neuralgia and diagnosed by Dr. Sweet more than 20 years ago. She also has been evaluated at [facility]. She started gabapentin and later carbamazepine. She thinks that gabapentin caused her to be dizzy and unsteady. Previously she is using gabapentin 400 mg 3 times a day and Topamax 50 mg 3 times a day. She also use misoprostol 100 mcg 3 times a day which caused abdominal upset. She has been on carbamazepine,topiramate, gabapentin, acupuncture, in the past. The acupuncture has helped but caused her $125 for a session and she 3 sessions a week. She was unable to afford it. Her pain is described as sharp shooting electrical pain mainly on the left V2 distribution and previously located left V1. She will have some residual soreness on the left supraorbital area. She denies any history of migraine, sinusitis, hearing loss, tinnitus, vertigo, or dental problems. Cold wind might trigger the pain and occasionally chewing might also cause the pain. No change in vision. Nospeech difficulty. She has been using carbamazepine 250 mg 3 times a day. She feels occasional twinges but not as severe as before. Past medical history include hypertension, hyperlipidemia, coronary artery disease, osteoarthritis,tremors, Kelly's esophagus, chronic kidney disease, fibromyalgia, gastroesophageal reflux disorder, macular degeneration. No tobacco, alcohol, or recreational drug use. Family history is negative for trigeminal neuralgia but positive for tremors. The following portions of the patient's history were reviewed and updated as appropriate: allergies, current medications, past family history, past medical history, past social history, past surgicalhistory and problem list. All systems reviewed and negative except pertinent positives and negatives documented in the History of Present Illness (HPI). Objective Patient awake and alert. Patient is oriented. Attention and comprehension were intact. Behavior is appropriate. Follows simple commands. Speech is fluent and spontaneous. Language is intact. Pupils are 4 mm equally reactive to light. No ptosis, nystagmus, or gaze deviation. Extraocular muscles intact. Face is symmetrical. Hearing is grossly intact. Gross strength is intact with normal muscle tone and bulk. No muscle fasciculations. No tremors or abnormal movements. She ambulates with a quad cane. Assessment/Plan: Patient with chronic intermittent left trigeminal neuralgia initially diagnosed more than 20 years ago affecting left V2 and occasionally left V1 distribution. Differential diagnosis includes atypical facial pain. She had went for years without any attacks but has came back. Previous medication include Topamax 50 mg 3 times a day and gabapentin 400 mg 3 times a day. But she thinks the gabapentin has been causing her to be dizzy and unsteady and was unable to tolerate it. She also taken misoprostol 100 mcg 3 times a day but did develop gastric side effects. She restarted carbamazepine currently taking 250 mg 3 times a day which she continues to take without any side effects. Brain MRI: 1. Nonspecific white matter changes may represent small-vessel ischemic disease in a patient of this age. Areas of encephalomalacia in the cerebellum may reflect remote ischemic injury. There is no evidence of acute ischemic injury. 2. Limited evaluation of the posterior fossa due to patient motion on The high- resolution axial T2 weighted images. A flow void does appear to at least abut the inner aspect of the proximal cisternalsegment of the left trigeminal nerve. Brain MRA: There are multifocal areas with attenuated flow related signal along the anterior and posterior circulation thought to largely e due to artifact. However, diminished flow can not be excluded. 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 Watch closely for any dizziness, drowsiness, unsteadiness, double vision. Keep well-hydrated and increase dietary salt. Monitor for any drug interaction. May use ice pack as needed. We will check some blood tests which may be done today. We will see her for follow-up visit around 6 months. Diagnostic impression, plans, and suggestions were explained and discussed. Records from the referring physician were reviewed. Clinical imaging study/ labs/medical tests were ordered/reviewed. Indications, risk, complications, side effects and alternatives of medications/therapeutics were explained and discussed. Monitor closely for any side effects or complications of medications. Questions andconcerns were addressed. Please call or contact us for any problems. She will call us for an updatein 1 to 2 months. I will see her for follow-up visit in 4 months. Starla little: Portions of this chart was created using Evolve IP voice recognition software. Occasional wrong-word or sound-like substitutions may have occurred due to inherent limitations of the voice recognition software. Please read the chart carefully and recognize, using context, where the substitutions have occurred. Time Code: 34 minutes 1. Preparation for patient's visit (reviewing previous chart, current medical records, previous history, exam, test, procedure, and medications) 2. Face to face encounter obtaining history from the patient/family/caregivers; performing evaluation and examination; ordering medications, tests, or procedures; referring and communicating with other healthcare professionals; counseling and education of the patient/family/caregiver; independently interpreting results (tests, labs, procedures, imaging) and communicating and explaining results tothe patient/family/caregiver 3. Coordination of care; preparing and printing discharge instruction and any educational material for the patient and caregivers. Documenting clinical information in the electronic and other health records. Reviewing OARRS as needed. documented in this [id number] History of Present illness Narrative* Lloyd Rogel LPN - 01/03/2022 7:17 AM EDT PA for Myrbetriq was denied. Please see scanned document for more information. * Caitie Alvarez LPN - 01/01/2022 4:49 PM EDT PA initiated for Myrbetrics through cover my meds for pt. Awaiting review. documented in this [id number] History of Present illness Narrative* Caitie Alvarez LPN - 01/01/2022 4:49 PM EDT PA initiated for Myrbetrics through cover my meds for pt. Awaiting review. documented in this [id number] History of Present illness Narrative* Carolina Clark CNP - 12/16/2021 1:15 PM EDT Images from the original note were not included. [facility] [address] [facility] [address] [facility] [phone] Cat Carroll returns to the office today for follow-up on her left hip. She was last seen on 11/05/2021 for left hip pain. She reports that today the hip is feeling much better. She has been in outpatient physical therapy for the hip. She, interested in left states that the majority of her pain had been resolved after she stopped using the Salonpas patches. She ended up having an allergic reaction to the point where she had significant blisters and in some places ended up having some open wounds because of the patches. She states that she still has a couple different spaces that are still inflamed but overall the pain has subsided and she is doing much better. She denies any new injury to the hip. The patient's past medical history, surgical history, social history, family history, medications and allergies were reviewed with the patient today and are available in the chart for further review. Allergies Allergen Reactions Aspirin GI Intolerance Indigestion Bacitracin Zinc-Polymyxin B Codeine Unknown Latex, Natural Rubber Unknown Dorkagcq-Ivljyegnnvm-Kwflwdhew Hydrocortisone Rash Current Outpatient Medications: aspirin 81 MG EC tablet, Take 81 mg by mouth daily ., Disp: , Rfl: atorvastatin (LIPITOR) 40 MG tablet, Take 1 (one) tablet (40 mg total) by mouth nightly ., Disp: 90tablet, Rfl: 3 carBAMazepine (TEGRETOL) 200 mg tablet, Take 1 (one) tablet (200 mg total) by mouth 3 (three) timesa day ., Disp: 270 tablet, Rfl: 3 cholestyramine (QUESTRAN) 4 gram powder, Take 1 (one) Scoopful (4 g total) by mouth daily ., Disp: 756 g, Rfl: 1 diclofenac sodium 1 % Gel, APPLY A SMALL AMOUNT TO AFFECTED AREA EVERY 6 HOURS NEEDED FOR PAIN, Disp: , Rfl: diphenhydrAMINE-acetaminophen (TYLENOL PM) 25-500 mg Tab, Take 2 tablets by mouth nightly as needed., Disp: , Rfl: fluticasone propionate (FLOVENT HFA) 110 mcg/actuation inhaler, Inhale 2 (two) puffs 2 (two) times a day Rinse mouth after each use ., Disp: 3 each, Rfl: 3 lidocaine 4 % patch, Place 1 (one) patch on the skin daily Use on left hip Remove & Discard patch within 12 hours ., Disp: 30 patch, Rfl: 0 losartan (Cozaar) 100 MG tablet, Take 1 (one) tablet (100 mg total) by mouth daily ., Disp: 90 tablet, Rfl: 3 methadone (DOLOPHINE) 5 MG tablet, Take 10 mg by mouth 2 (two) times a day ., Disp: , Rfl: metoprolol succinate (TOPROL-XL) 50 MG 24 hr tablet, Take 1 (one) tablet (50 mg total) by mouth at bedtime ., Disp: 90 tablet, Rfl: 3 miSOPROStoL (CYTOTEC) 100 MCG tablet, Take 1 (one) tablet (100 mcg total) by mouth 3 (three) times a day for 365 doses ., Disp: 90 tablet, Rfl: 4 MULTIVIT-MIN/IRON/FOLIC/LUTEIN (CENTRUM SILVER WOMEN ORAL), Take 1 tablet by mouth daily., Disp: , Rfl: nitroGLYCERIN (NITROSTAT) 0.4 MG SL tablet, Place 1 (one) tablet (0.4 mg total) under the tongue every 5 (five) minutes as needed for chest pain , if no relief after 3 doses call 911 ., Disp: 25 tablet, Rfl: 3 omeprazole (PRILOSEC) 40 MG capsule, Take 1 (one) capsule (40 mg total) by mouth daily ., Disp: 90 capsule, Rfl: 0 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 prior biopsies no dysplasia last biopsies 08/2014 Benign carcinoid tumor of the duodenum 2014 Cancer (HCC) skin cancer-squamous cells removed Chronic kidney disease (CKD), stage III (moderate) (HCC) 09/12/2016 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 Rick thompson. Dr Hinds BLADDER REPAIR 1989 CATARACT EXT/ECCE Bilateral 2011 Dr [place]ula CHOLECYSTECTOMY CYST REMOVAL Right 1999 cyst removal from rt breast-benign DILATION AND CURETTAGE (D AND C) 1970 x 2 EGD 01/01/2015 Dr. ZavalaKqlixq-Yxithbcvt-Zbygdnx's esophagus EGD 08/2014 Dr. Vinicius Pruett-Barrett's esophagitis biopsies negative for dysplasia. ESOPHAGOGASTRODUODENOSCOPY 01/04/2018 Dr. Zavala -biopsies performed-Kelly's esophagitis-carcinoid tumor posterior wall duodenum FRACTURE SURGERY Right Plates and screws in rt arm after fracture. dr Dolan LEFT HEART CATH N/A 08/23/2018 Procedure: Left Heart Cath; Surgeon: Glen Fair MD; Location: [facility]; Service: Cardiovascular HYSTERECTOMY 1975 KIDNEY SURGERY 1969 had exploratory surgery d/t floating kidney Dx KNEE SURGERY Left 1997 left knee arthoscopy LUMPECTOMY Left 1989 benign ORIF HIP GAMMA NAIL Right 04/02/2020 SQUAMOUS CELL CARCINOMA EXCISION x4 TOTAL KNEE ARTHROPLASTY Left 2012 dr dolan TUMOR REMOVAL 2011 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 Social History Socioeconomic History Marital status: Number of children: 2 Years of education: 12 Tobacco Use Smoking status: Former Packs/day: 0.00 Types: Cigarettes Quit date: 04/03/1976 Years since quittin.7 Smokeless tobacco: Never Vaping Use Vaping Use: Never used Substance and Sexual Activity Alcohol use: No Drug use: No Sexual activity: Never Social Determinants of Health Financial Resource Strain: Low Risk Difficulty of Paying Living Expenses: Not hard at all Food Insecurity: No Food Insecurity Worried About Running Out of Food in the Last Year: Never true Ran Out of Food in the Last Year: Never true Transportation Needs: No Transportation Needs Lack of Transportation (Medical): No Lack of Transportation (Non-Medical): No Physical Activity: Insufficiently Active Days of Exercise per Week: 2 days Minutes of Exercise per Session: 20 min Stress: Stress Concern Present Feeling of Stress : To some extent Social Connections: Moderately Isolated Frequency of Communication with Friends and Family: Twice a week Frequency of Social Gatherings with Friends and Family: Once a week Attends [employer] Services: 1 to 4 times per year Active Member of Clubs or Organizations: No Attends Club or Organization Meetings: Patient refused Marital Status: Housing Stability: Low Risk Unable to Pay for Housing in the Last Year: No Number of Places Lived in the Last Year: 1 Unstable Housing in the Last Year: No ROS: Review of Systems Musculoskeletal: Negative for arthralgias and myalgias. Tenderness Neurological: Negative for weakness and numbness. PE: Physical Exam Musculoskeletal: General: Tenderness present. Left hip: Tenderness present. No deformity, bony tenderness or crepitus. Normal range of motion. Normal strength. Legs: Imaging: No new imaging, reviewed from prior visit. Assessment/Plan: After exam and discussion I am happy that the hip is feeling better after she has stopped using the Salonpas patches. She is to continue using the cream as needed. I am more than happy to see her back as needed. She does verbalize understanding and is in agreement the treatment plan. documented in this [id number] History of Present illness Narrative* Samantha Reddy, AVE - 12/04/2021 1:45 PM EDT [facility] OUT[facility] REH[facility]IL[facility] DAILY TREATMENT NOTE Today's Date 12/04/2021 Patient Name: Cat Carroll Date of : 1935 Current Visit #: 7 Authorized Visits: [id number] Case Name: Lumbar DDD History: Pre-Treatment Pain Scale: 0 Symptoms: Assessment Date: 03/15/20 Date ANCA/Dutch Report Reviewed: 03/15/20 Date Controlled Substance Agreement signed: 03/15/20 Pain Type & Exclusions Type of Pain: Subacute/Chronic Do exclusions apply to your patient (select all that apply): No Exclusions Apply I am prescribing: Less than 50 MEDD Does the patient have a history of opioid overdose: No Is the patient currently taking a benzodiazepine, hypnotic, or gabapentin: No Did you offer a prescription for naloxone: No *: Activity Modification, NSAIDS, Massage Therapy, Physical Therapy, acetaminophen, OTC Topical Creams Patient was screened and is LOW RISK for substance use disorder: Yes All pertinent side effects, risks, benefits and precautions of suggested treatments were discussed in detail, including the potential for addiction: Yes Patient understands and agrees with the above plan: Yes Patient has been advised that it is his/her responsibility to keep the medications stored safely and securely: Yes We also discussed safe disposal of medications: Yes Analgesia relief on current opioid regimen: Insufficient with current medications ADL and psychological improvements with the use of opioid medications: ADL's partially improved andremain limited - psychological functioning improved Adverse Effects (UPDATE ALLERGIES): None Aberrant drug-taking behaviors observed: None Functional Diagnosis: 1. Lumbar degenerative disc disease Clinical Information: Subjective: Pt states she is doing good, states she feels her balance is much better. Objective This sis the pts last visit, all goals have been met, Pt completed ex log with CGA and gait belt with standing balance activities with x2 LOB with self recovery x2 doing tandem standing on airex in // bars. Cochran score 45, Foto Treatments: Physical Therapy Exercise Log - 12/04/21 1345 OTHER Precautions/Contraindications Supervising PT: Pancho Notes Lumbar DDD (hx of lumbar fusion 2013, R femoral ORIF Pt currently doing very well - pain is controlled with lidocaine patches Vitals Visit 4: 1:48 - 2:26 Therapeutic Exercise (90117) Intervention Scifit, L3 5' Parameters sink exs (hip abd, ext, marches, heel raises) x15 Intervention NBOS balance on airex, 20x2, tandom standing 20 sec x2 Parameters tandem and retro ambulation in // bars x4 laps - single UE support Intervention 6 hurdles in // bars 3x6 fwd Parameters alt step taps 4 No UE Intervention SLS (L) 2x15 finger tip assist Parameters Bridges - x10 Intervention LA Roll - 3 sec hold x15 RSB Parameters supine core brace pushing into sudanese ball, 5x10 Intervention Supine hip add and abd isometric: 3 hold x 20 Parameters SLR - 2 x10 with abdominal bracing Intervention clamshells RTB x 15 PT Treatment Times Therex Total Time 43 Direct Treatment Time 43 Total Treatment Time 45 Goals: Physical Therapy Ortho Goals: 1. Pt will demonstrate improved COCHRAN Balance score to at least 45/56. 6 weeks. 2. Pt will report 0/10 pain allowing for ease of self care / ADLs.. 6 weeks. 3. Pt will demonstrate improved functional LE strength - ability to complete STS without need of UEsupport. 6 weeks. 4. Pt will demonstrate good adherence to HEP. 3 weeks. IE date: 11/14/2021 Progress report due: 12/12/21 Recert due: visit # 12 Patient Education: Verbal HEP with patient verbalized understanding. Post-Treatment Pain Scale: 0 Assessment: Patient had an expected response to treatment. Skilled Intervention demonstrated by modifications of treatment per exercise log including increased intensity and safety interventions per exercise log. Progress towards goals as expected. Plan for Next Visit: Treatment Visit with focus on LB strengthening, overall balance and core strengthening for improved function Samantha Reddy PTA STATE LICENSE, [id number] documented in this [id number] History of Present illness Narrative* Ximena Nolan PTA - 11/27/2021 1:00 PM EDT [facility] OUTPATIENT REHABILITATION DAILY TREATMENT NOTE Today's Date 11/27/2021 Patient Name: Cat Carroll Date of : 1935 Current Visit #: 5 Authorized Visits: [id number] Case Name: Lumbar DDD History: Pre-Treatment Pain Scale: no pain just achey Symptoms: achey hips an back Functional Diagnosis: 1. Lumbar degenerative disc disease Clinical Information: Subjective: Pt denies pain upon arrival but notes feeling achy I think from the rain Pt denies soreness after last session. Pt reports no longer using lidocaine patches d/t rash on L lateral hip, pt reports having latex allergy and was unaware there was latex in the patches. Rash with red spots with few open sores. Pt reports keeping it covered with gauze and using triple antibiotic ointment onit. Pt notes using a lidocaine gel on thighs and LB but avoiding rash area. Objective Started with supine ex's and continued with ex's per flow sheet. Added alt step taps and (L) SLS to challenge balance and righting reaction. Treatments: Physical Therapy Exercise Log - 11/27/21 1305 OTHER Precautions/Contraindications Supervising PT: Pancho Notes Lumbar DDD (hx of lumbar fusion 2014, R femoral ORIF Pt currently doing very well - pain is controlled with lidocaine patches Vitals Visit 3: [id number] Therapeutic Exercise (56348) Intervention Scifit, L3 5' Parameters sink exs (hip abd, ext, marches, heel raises) x15 Intervention NBOS balance on airex, 20x2, tandom standing 20 sec x2 Parameters tandem and retro ambulation in // bars x4 laps - single UE support Intervention 6 hurdles in // bars 3x6 fwd Parameters alt step taps 4 No UE Intervention SLS (L) 2x15 finger tip assist Parameters Bridges - x10 Intervention LA Roll - 3 sec hold x15 RSB Parameters supine core brace pushing into sudanese ball, 5x10 Intervention Supine hip add and abd isometric: 3 hold x 20 Parameters SLR - x10 with abdominal bracing PT Treatment Times Therex Total Time 25 Neuro Re-Ed Total Time 15 Direct Treatment Time 40 Total Treatment Time 40 Goals: Physical Therapy Ortho Goals: 1. Pt will demonstrate improved COCHRAN Balance score to at least 45/56. 6 weeks. 2. Pt will report 0/10 pain allowing for ease of self care / ADLs.. 6 weeks. 3. Pt will demonstrate improved functional LE strength - ability to complete STS without need of UEsupport. 6 weeks. 4. Pt will demonstrate good adherence to HEP. 3 weeks. IE date: 11/14/2021 Progress report due: 12/12/21 Recert due: visit # 12 Patient Education: Quality of movement, Verbal HEP, HEP Adherence, and Diagnosis and recovery specific education with patient demonstrated understanding and verbalized understanding. Post-Treatment Pain Scale: muscle fatigue, no achiness Assessment: Patient had an expected response to treatment. Pt education on monitoring rash and to see doctor if it worsen. 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 Skilled Intervention demonstrated by modifications of treatment per exercise log including increased intensity, increased volume, and assessment of patient's response and safety interventions per exercise log. Progress towards goals as expected. Plan for Next Visit: Treatment Visit with focus on continue. Trial 6 step taps NV. Monitor rash onlateral L hip. Ximena Nolan PTA State License, [id number] documented in this [id number] History of Present illness Narrative* Last Thompson, PT - 11/25/2021 3:15 PM EDT [facility] OUTPATIENT REHABILITATION DAILY TREATMENT NOTE Today's Date 11/25/2021 Patient Name: Cat Carroll Date of : 1935 Current Visit #: 4 Authorized Visits: 199 Case Name: Lumbar DDD History: Pre-Treatment Pain Scale: 1 Symptoms: gradually improved Functional Diagnosis: 1. Lumbar degenerative disc disease Clinical Information: Subjective: Pt continues to report no pain and states she is noticing improvement in balance and mobility. Objective Treatments: Physical Therapy Exercise Log - 11/25/21 1513 OTHER Precautions/Contraindications Supervising PT: Pancho Higgins Lumbar DDD (hx of lumbar fusion 2013, R femoral ORIF Pt currently doing very well - pain is controlled with lidocaine patches Vitals Visit 3: 3:15 - 3:54 Therapeutic Exercise (43762) Intervention Scifit, L3 5' Parameters sink exs (hip abd, ext, marches, heel raises) x15 Intervention NBOS balance on airex, 20x2, tandom standing 20 sec x2 Parameters tandem and retron ambulation in // bars x4 laps - single UE support Intervention 6 hurdles in // bars 3x6 fwd Intervention SLR - x10 with abdominal bracing Parameters Bridges - x10 Intervention LA Roll - 3 sec hold x15 RSB Parameters supine core brace pushing into sudanese ball, 5x10 Intervention Supine hip add and abd isometric: 3 hold x 20 PT Treatment Times Therex Total Time 35 Neuro Re-Ed Total Time 4 Direct Treatment Time 39 Total Treatment Time 39 Goals: Physical Therapy Ortho Goals: 1. Pt will demonstrate improved COCHRAN Balance score to at least 45/56. 6 weeks. 2. Pt will report 0/10 pain allowing for ease of self care / ADLs.. 6 weeks. 3. Pt will demonstrate improved functional LE strength - ability to complete STS without need of UEsupport. 6 weeks. 4. Pt will demonstrate good adherence to HEP. 3 weeks. IE date: 11/14/2021 Progress report due: 12/12/21 Recert due: visit # 12 Patient Education: Written HEP and Diagnosis and recovery specific education with patient verbalized understanding. Post-Treatment Pain Scale: 0 Assessment: Patient had an expected response to treatment. Skilled Intervention demonstrated by modifications of treatment per exercise log including increased intensity, increased mobility, and increased volume and safety interventions per exercise log. Progress towards goals as expected. Plan for Next Visit: Treatment Visit with focus on dynamic balance and mobility Last Thompson PT State License, [id number] documented in this [id number] History of Present illness Narrative* Miguel Zavala, ACUTE CARE NURSE - 11/20/2021 1:45 PM EDT [facility] OUTPATIENT REHABILITATION DAILY TREATMENT NOTE Today's Date 11/20/2021 Patient Name: Cat Carroll Date of : 1935 Current Visit #: 3 Authorized Visits: 199 Case Name: Lumbar DDD History: Pre-Treatment Pain Scale: 0 Symptoms: gradually improved Functional Diagnosis: 1. Lumbar degenerative disc disease Clinical Information: Subjective: Pt reports back feeling good today but has been using lidocain patches. No recent falls Objective Treatments: Physical Therapy Exercise Log - 11/20/21 1341 OTHER Precautions/Contraindications PT Eduardo Zavala transferring care to Pancho Thompson PT [id number] Notes Lumbar DDD (hx of lumbar fusion 2014, R femoral ORIF Pt currently doing very well - pain is controlled with lidocaine patches Vitals Visit 2; 1:45 - 2:25 Therapeutic Exercise (41950) Intervention COCHRAN balance score 44/56 Parameters General endurance / LE and core strengthening interventions Intervention Balance intervention to address fall risk Parameters Scifit, L3 5' Intervention sink exs (hip abd, ext, marches, heel raises) x15 Parameters NBOS balance on airex, 20x2, tandom standing 20 sec x2 Intervention SLR - x10 with abdominal bracing Parameters Bridges - x10 Intervention LA Roll - 3 sec hold x10 RSB Parameters supine core brace pushing into sudanese ball, 5x10 Intervention Supine hip add and abd isometric: 3 hold x 20 Parameters Verlin HEP initial ([id number]) SUPINE HIP ABDUCTION - ISOMETRIC - Repeat 10 Times, Hold 3 Seconds, Complete 2 Sets, Perform 1 Times a Day SHORT ARC QUAD - SAQ - KNEE EXTENSION - Repeat 20 Times, Hold 1 Second(s), Complete 1 Set, Perform 1 Times a Day PT Treatment Times Therex Total Time 40 Direct Treatment Time 40 Total Treatment Time 40 Goals: Physical Therapy Ortho Goals: 1. Pt will demonstrate improved COCHRAN Balance score to at least 45/56. 6 weeks. 2. Pt will report 0/10 pain allowing for ease of self care / ADLs.. 6 weeks. 3. Pt will demonstrate improved functional LE strength - ability to complete STS without need of UEsupport. 6 weeks. 4. Pt will demonstrate good adherence to HEP. 3 weeks. IE date: 11/14/2021 Progress report due: 12/12/21 Recert due: visit # 12 Patient Education: Quality of movement with patient demonstrated understanding. Post-Treatment Pain Scale: 0 Assessment: Patient had an expected response to treatment. Skilled Intervention demonstrated by modifications of treatment per exercise log including increased load and safety interventions per exercise log. Progress towards goals as expected. Plan for Next Visit: Treatment Visit with focus on LE and core strengthening, balance Miguel Zavala PTA STATE LICENSE, [id number] documented in this [id number] History of Present illness Narrative* Columba Edwards PTA - 11/18/2021 2:30 PM EDT [facility] OUTPATIENT REHABILITATION DAILY TREATMENT NOTE Today's Date 11/18/2021 Patient Name: Cat Carroll Date of : 1935 Current Visit #: 2 Authorized Visits: 199 Case Name: Lumbar DDD History: Pre-Treatment Pain Scale: 0 Symptoms: 2nd visit Functional Diagnosis: 1. Lumbar degenerative disc disease Clinical Information: Subjective: Pt reports she doesn't have any pain right now. 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 Objective Initiated exercise program with visual and verbal cues for proper form and education due to first visit since IE. Pt performed exercises per log for increased LE strength, core stability, and improved balance. Treatments: Physical Therapy Exercise Log - 11/18/21 1422 OTHER Precautions/Contraindications PT Eduardo Zavala transferring care to [facility] PT [phone] Notes Lumbar DDD (hx of lumbar fusion 2014, R femoral ORIF Vitals Pt currently doing very well - pain is controlled with lidocaine patches Therapeutic Exercise (44896) Intervention COCHRAN balance score 44/56 Parameters Supine hip add and abd isometric: 3 hold x 20 Intervention SAQ: 2 x 10 each leg Parameters General endurance / LE and core strengthening interventions Intervention Balance intervention to address fall risk Parameters Scifit, L1 5' Intervention sink exs (hip abd, ext, marches, heel raises) x10 Parameters NBOS balance on airex, 20x2 Intervention supine core brace pushing into sudanese ball, 5x10 Parameters Verlin HEP initial ([id number]) SUPINE HIP ABDUCTION - ISOMETRIC - Repeat 10 Times, Hold 3 Seconds, Complete 2 Sets, Perform 1 Times a Day SHORT ARC QUAD - SAQ - KNEE EXTENSION - Repeat 20 Times, Hold 1 Second(s), Complete 1 Set, Perform 1 Times a Day PT Treatment Times Therex Total Time 40 Direct Treatment Time 40 Total Treatment Time 41 Goals: Physical Therapy Ortho Goals: 1. Pt will demonstrate improved COCHRAN Balance score to at least 45/56. 6 weeks. 2. Pt will report 0/10 pain allowing for ease of self care / ADLs.. 6 weeks. 3. Pt will demonstrate improved functional LE strength - ability to complete STS without need of UEsupport. 6 weeks. 4. Pt will demonstrate good adherence to HEP. 3 weeks. IE date: 11/14/2021 Progress report due: 12/12/21 Recert due: visit # 12 Patient Education: Quality of movement, Written HEP, and HEP Adherence with patient demonstrated understanding and verbalized understanding. Post-Treatment Pain Scale: 0 Assessment: Patient had an expected response to treatment. Pt able to perform exercises without c/oincreased pain but does admit some soreness and fatigue post session. Good understanding of exercises after cueing provided. Skilled Intervention demonstrated by modifications of treatment per exercise log including increased load, increased cueing, increased volume, and assessment of patient's response and safety interventions per exercise log. Progress towards goals as expected. Plan for Next Visit: Treatment Visit with focus on increased LE strength, core stability, and balance. Columba Edwards PTA STATE LICENSE, [id number] documented in this [id number] History of Present illness Narrative* Eduardo Zavala, PT - 11/14/2021 4:00 PM EDT Images from the original note were not included. [facility] OUTPATIENT REHABILITATION Evaluation Today's Date 11/17/2021 Patient Name: Cat Carroll Date of : 1935 Case Name: Lumbar DDD Functional Diagnosis: 1. DDD (degenerative disc disease), lumbar 2. Lumbar degenerative disc disease Clinical Information: Subjective Referring Diagnosis: L hip pain History of Present Illness Contemporary Medical History: Hx of fusion lumbar 2014 Hip xray 10/16/21 IMPRESSION: 1. Diffuse osseous demineralization. 2. Mild degenerative changes of the left hip joint. 3. Remote appearing fractures of the left puboacetabular junction and inferior pubic ramus. Subjective History: Pt reports that she is not a candidate for any further surgery in her back. Pt reports that she broke her pelvis from a fall a few years ago (conservative care). Also had a different fall and fx her R femur (ORIF done). Pt reports that her L hip has been bothering her for about 2 weeks. Reports that she has been using lidocaine patches and they are really helping. She is also using rx voltaren gel. Pt reports that the pain patch take her pain completely away. Pt is wearing the patches as directed (not leaving on any longer than 12 hrs) Pt living independently - her daughter and son are close and help her when needed. Pt has a nurse that comes and checks on her once a month. Previous Imaging: X-ray Pain Scale Pain location: lumbar spine and hip Average Pain: currently 0/10. Pain at highest: 8/10 Aggravating factors: pt unable to report - not sure: currently no pain with the pain patch Personal Goals: Pt would like her hip pain to continue to be under control Home medical equipment owned: Yes Neuro Rehab Home Equipment: her mobile home was equiped for handicapped. Gait Devices: SBQC Social Support: Presybeterian, social, or cultural considerations to be made aware of before starting treatment: No Home Environment Current Home Environment: Current setup: 3 steps to get in. Sleep Assessment Sleep disturbance: Sleep Disturbance (prior to the pain patch) Red Flags: history of cancer Comments: Barriers to Care: Chronicity or severity of impairments Fall risk screening Fallen 2 or more times in the last 12 months: No Injured as a result of a fall in the last 12 months: No Presybeterian, social, or cultural considerations to be made aware of before starting treatment: No Lumbar Spine Gait: antalgic, decreased madhu and decreased stance time LLE Comments: Pt enters clinic with quad cane COCHRAN Balance 44/56 (results in toolkit) Trunk AROM: Core strength limited Hip Right Hip Muscle Strength: Abduction: 4 Adduction: 4 Left Hip Range of Motion: IR Active: 42 ER Active: 25 Muscle Strength: Abduction: 4 Adduction: 4 COCHRAN/56 Strength tested in Hooklying Treatments: Physical Therapy Exercise Log - 11/14/21 8127 OTHER Precautions/Contraindications PT Eduardo Zavala transferring care to Pancho Thompson PT Notes Lumbar DDD (hx of lumbar fusion 2014, R femoral ORIF Vitals Pt currently doing very well - pain is controlled with lidocaine patches Therapeutic Exercise (78257) Intervention COCHRAN balance score 44/56 Parameters Supine hip abd isometric: 3 hold x 20 Intervention SAQ: 2 x 10 each leg Parameters General endurance / LE and core strengthening interventions Intervention Balance intervention to address fall risk Parameters Verlin HEP initial ([id number]) SUPINE HIP ABDUCTION - ISOMETRIC - Repeat 10 Times, Hold 3 Seconds, Complete 2 Sets, Perform 1 Times a Day SHORT ARC QUAD - SAQ - KNEE EXTENSION - Repeat 20 Times, Hold 1 Second(s), Complete 1 Set, Perform 1 Times a Day Treatment Plan: Frequency of Visits: twice per week Duration: 6 weeks Interventions: Therapeutic Exercise (94339), Neuromuscular Re-Education (33111), Manual Therapy (49737), Gait Training (48732), and Hot/Cold Pack (29505) Rehab Potential: good Goals: Physical Therapy Ortho Goals: 1. Pt will demonstrate improved COCHRAN Balance score to at least 45/56. 6 weeks. 2. Pt will report 0/10 pain allowing for ease of self care / ADLs.. 6 weeks. 3. Pt will demonstrate improved functional LE strength - ability to complete STS without need of UEsupport. 6 weeks. 4. Pt will demonstrate good adherence to HEP. 3 weeks. IE date: 11/14/2021 Progress report due: 12/12/21 Recert due: visit # 12 Patient Education provided: anatomy, HEP handout, safety Clinical Impression: CPT Code 12526 Low 52506 Moderate 25641 High History 0 1-2 3+ Comorbidities: cancer, cardiac history, chronic pain, fibromyalgia, HTN, OA, Osteoporosis, and prior surgical history, Personal factors: age and chronicity or severity of the current condition Examination of body systems (elements of body structures & functions, activity limitations, and/or participation restrictions) 1-2 elements 3+ elements 4+ elements See below clinical impression Clinical Presentation Stable Evolving Unstable As evidenced by reproduction of or changes in symptoms with certain movements and pt report of overall worsening of symtpoms over time Decision Making Low (FOTO >/= 69) Moderate (FOTO 34 - 68) High (FOTO </= 33) FOTO score= 72 Pt is a 86 y.o. female who presents to PT services with c/o L hip pain / lumbar pain - prior hx of pelvic fx 2 yrs previous and lumbar fusion in 2013. Upon assessment, pt has been found with the following impairments: impaired posture, decreased ROM, decreased strength, impaired dynamic balance, antalgic gait, decreased stability, and pain. 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 The pt would benefit from skilled PT services focused on the above listed impairments and limitations in order to safely progress pt to their desired level offunction. Pt to be discharged from OP PT services if/when goals are met, if they fail to make progress with conservative management in PT, if their level of progress plateaus, or if they do not maintain compliance with attendance or HEP. At this time, it is my clinical judgment that services are medically necessary. Eduardo Zavala PT STATE LICENSE, [id number] documented in this [id number] History of Present illness Narrative* Donna Schroeder MD - 11/12/2021 9:48 AM EDT Cardiology Clinic Visit Heart & Vascular [facility] 11/12/2021 Donna Schroeder MD [address] [facility] [id number] Patient: Cat Carroll Date of : 1935 (86 y.o.) Referring Provider: No ref. provider found PCP: Claudine Majano MD Assessment & Plan Cat Carroll is a 85 y.o. woman with history of CAD/STEMI with HANNAH to the distal RCA in 08/2018, CKD, HTN, and HLD who presents to clinic for follow up. CAD/STEMI - with HANNAH to distal RCA - Denies angina -Continue aspirin 81 mg daily and metoprolol succinate 50 mg daily -Reduce atorvastatin to 40mg daily as below Mild systolic dysfunction-euvolemic on exam, last known LVEF of 45 to 50%. -Continue metoprolol succinate 50 mg daily, losartan 100 mg daily Hyperlipidemia-LDL of 9 on most recent lipid panel -Reduce atorvastatin to 40mg daily, will consider repeat lipid panel at the next visit Return in about 6 months (around 05/12/2022). Donna Schroeder MD [facility] Non-Invasive Cardiology [facility] Heart and Vascular Chief Complaint: Follow-up (Overdue 6 mo-last OV 02/12/21/no cardiac concerns today) Subjective Cat Carroll is a 86 y.o. woman with history of CAD/STEMI with HANNAH to the distal RCA in 08/2018, CKD, HTN, and HLD who presents to clinic for follow up. Continues to feel well. Denies chest pain and feeling short of breath. Does have dependent edema that resolves with putting her feet up. Denies PND and orthopnea. Denies palpitations. Does occasionalhave LH with position changes but denies falls or syncope. Denies syncope. Denies bleeding issues. Review of Systems: Constitution: Negative. HENT: Negative. Cardiovascular: As above. Respiratory: As above. Endocrine: Negative. Skin: Negative. Musculoskeletal: Negative. Gastrointestinal: Negative. Genitourinary: Negative. Neurological: Negative. Psychiatric/Behavioral: Negative. 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 prior biopsies no dysplasia last biopsies 08/2014 Benign carcinoid tumor of the duodenum 2014 Cancer (HCC) skin cancer-squamous cells removed Chronic kidney disease (CKD), stage III (moderate) ([facility]) 09/12/2016 EGFR 43 Fibromyalgia Floating kidney GERD (gastroesophageal reflux disease) 2009 Hypertension 1999 Macular degeneration 2017 Myocardial infarction ([facility]) 08/2018 STEMI Osteoporosis 2010 Trigeminal neuralgia of left side of face 2004 Vertigo Vitamin D deficiency 2016 Past Surgical History: Procedure Laterality Date BACK SURGERY 2013 fusion and rods placed in lower back. Cabrera donna. Dr Hinds BLADDER REPAIR 1989 CATARACT EXT/ECCE Bilateral 2011 Dr [place] CHOLECYSTECTOMY CYST REMOVAL Right 1999 cyst removal from rt breast-benign DILATION AND CURETTAGE (D AND C) 1970 x 2 EGD 01/01/2015 Dr. ZavalaWqjkqv-Yypvgyrwa-Rfxumiz's esophagus EGD 08/2014 Dr. Vinicius RamachandranZ-Xkqhcmrrl-Jdfaktw's esophagitis biopsies negative for dysplasia. ESOPHAGOGASTRODUODENOSCOPY 01/04/2018 Dr. Zavala -biopsies performed-Kelly's esophagitis-carcinoid tumor posterior wall duodenum FRACTURE SURGERY Right Plates and screws in rt arm after fracture. dr Dolan LEFT HEART CATH N/A 08/23/2018 Procedure: Left Heart Cath; Surgeon: Glen Fair MD; Location: [facility]; Service: Cardiovascular HYSTERECTOMY 1975 KIDNEY SURGERY 1969 had exploratory surgery d/t floating kidney Dx KNEE SURGERY Left 1997 left knee arthoscopy LUMPECTOMY Left 1989 benign ORIF HIP GAMMA NAIL Right 04/02/2020 SQUAMOUS CELL CARCINOMA EXCISION x4 TOTAL KNEE ARTHROPLASTY Left 2012 dr dolan TUMOR REMOVAL 2011 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 Family History Problem Relation Age of Onset Diabetes Mother Heart disease Mother Heart disease Father Stroke Father Diabetes Sister Dementia Sister Heart disease Brother Diabetes Brother Diabetes Maternal Uncle Bipolar disorder Daughter Diabetes Son Cancer Neg Hx Aneurysm Neg Hx Seizures Neg Hx Social History Tobacco Use Smoking Status Former Packs/day: 0.00 Types: Cigarettes Quit date: 04/03/1976 Years since quittin.6 Smokeless Tobacco Never Allergies: Aspirin; Bacitracin zinc-polymyxin b; Codeine; Latex, natural rubber; Lpifeham-xswcytrfwnx-tgvzrqewo; and Hydrocortisone HOME Medications: Current Outpatient Medications on File Prior to Visit Medication Sig aspirin 81 MG EC tablet Take 81 mg by mouth daily . atorvastatin (LIPITOR) 80 MG tablet Take 1 (one) tablet (80 mg total) by mouth nightly . carBAMazepine (TEGRETOL) 200 mg tablet Take 1 (one) tablet (200 mg total) by mouth 3 (three) times a day . cholestyramine (QUESTRAN) 4 gram powder Take 1 (one) Scoopful (4 g total) by mouth daily . diclofenac sodium 1 % Gel APPLY A SMALL AMOUNT TO AFFECTED AREA EVERY 6 HOURS NEEDED FOR PAIN diphenhydrAMINE-acetaminophen (TYLENOL PM) 25-500 mg Tab Take 2 tablets by mouth nightly as needed . fluticasone propionate (FLOVENT HFA) 110 mcg/actuation inhaler Inhale 2 (two) puffs 2 (two) times aday Rinse mouth after each use . lidocaine 4 % patch Place 1 (one) patch on the skin daily Use on left hip Remove & Discard patch within 12 hours . losartan (Cozaar) 100 MG tablet Take 1 (one) tablet (100 mg total) by mouth daily . methadone (DOLOPHINE) 5 MG tablet Take 10 mg by mouth 2 (two) times a day . metoprolol succinate (TOPROL-XL) 50 MG 24 hr tablet Take 1 (one) tablet (50 mg total) by mouth at bedtime . MULTIVIT-MIN/IRON/FOLIC/LUTEIN (CENTRUM SILVER WOMEN ORAL) Take 1 tablet by mouth daily. nitroGLYCERIN (NITROSTAT) 0.[address] 1 (one) tablet (0.4 mg total) under the tongue every 5 (five) minutes as needed for chest pain , if no relief after 3 doses call 911 . omeprazole (PRILOSEC) 40 MG capsule Take 1 (one) capsule (40 mg total) by mouth daily . No current facility-administered medications on file prior to visit. Physical Examination: BP 134/84 (BP Location: Left arm, Patient Position: Sitting) Pulse 78 Ht 5' 4 Wt 58.1 kg (128 lb) SpO2 98% BMI 21.97 kg/m Constitutional: Appears well-developed and well-nourished. No distress. HENT: Head: Normocephalic and atraumatic. Eyes: Conjunctivae and EOM are normal. No scleral icterus. Neck: Normal range of motion. Cardiovascular: Normal rate and regular rhythm. Exam reveals no gallop and no friction rub. No murmur heard. No JVP elevation. No LE edema. Pulmonary/Chest: Effort normal and breath sounds normal. No respiratory distress. No wheezes. No rales. Abdominal: Soft. Bowel sounds are normal. There is no abdominal tenderness. Musculoskeletal: Normal range of motion. Neurological: AOx3, moving all ext. Skin: Skin is warm and dry. No rash noted. Psychiatric: Normal mood and affect. Cardiovascular Studies: TTE 08/23/18 Conclusions: Mild segmental LV dysfunction with posterior and inferior wall motion abnormalities. Ejection fraction approximately 45 to 50%. No significant valvular heart disease identified. [facility] 09/02/18 Impressions and Recommendations: #1. Moderate LV systolic dysfunction with an estimated LV ejection fraction of 42%. 2. Normal left ventricular end-diastolic pressure 3. Segmental contraction abnormality of the left ventricle. 4. 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 5. Successful catheter-based intervention with drug-eluting stent placement in the distal right conduit, extending into the posterior AV segment, with denominational of MERLY-3 flow and 0% residual stenosis Labs: Lab Results Component Value Date GLUCOSE 111 (H) 10/18/2021 CALCIUM 8.8 10/18/2021 NA 130 (L) 10/18/2021 K 4.3 10/18/2021 CL 96 (L) 10/18/2021 BUN 16 10/18/2021 CREATININE 0.77 10/18/2021 Lab Results Component Value Date WBC 6.97 09/18/2021 HGB 12.4 09/18/2021 HCT 38.6 09/18/2021 MCV 97.7 09/18/2021 EXTMCV 90.6 06/09/2017 PLT 177 09/18/2021 RBC 3.95 (L) 09/18/2021 Lab Results Component Value Date CHOL 101 03/15/2021 LDLCALC 9 (L) 03/15/2021 TRIG 141 03/15/2021 HDL 64 03/15/2021 documented in this [id number] Instructions* Patient Instructions* Francesca Mares RN - 11/12/2021 9:40 AM EDT How to contact your Care Team: Provider: Donna Schroeder MD Nurse: Francesca Mares RN In case of an emergency please call 911. REFILLS: When in need for refills please call your care team or the office at [phone]. Please include medication name, pharmacy name, and specify 30-day or 90-day supply. Please check with your pharmacy within 24 hours of request for your refill. You must follow up as directed to continue current refills. Thank you documented in this [id number] History of Present illness Narrative* Carolina Clark CNP - 11/05/2021 12:49 PM EDT Images from the original note were not included. Cat Jonathan Carroll 1935 CC: 86 y.o. is a she with left hip pain. . HPI: Hip Pain patient presents today to the office with complaints of left hip pain. She reports that this is been going on for approximately a week to week and a half. She denies any injury to the hip. She does have a history of falls last 1 being approximately a year and a half ago. She has a history of fractures to her pelvis. She reports pain along the posterior aspect of the hip. She denies any pain that radiates down the leg into the foot or the toes. She denies any pain that radiates into the groin or down the front of her thigh. She is able to use a lidocaine patch and also topical creams and she states that that gives her complete pain relief. She does present here today using a cane for ambulation. Again she denies any recent fall. The patient's past medical history, surgical history, social history, family history, medications and allergies were reviewed with the patient today and are available in the chart for further review. PMH: Allergies Allergen Reactions Aspirin GI Intolerance Indigestion Bacitracin Zinc-Polymyxin B Codeine Unknown Latex, Natural Rubber Unknown Lyprsqmw-Qerozlomkus-Vrenvodhs Hydrocortisone Rash Current Outpatient Medications: aspirin 81 MG EC tablet, Take 81 mg by mouth daily ., Disp: , Rfl: atorvastatin (LIPITOR) 80 MG tablet, Take 1 (one) tablet (80 mg total) by mouth nightly ., Disp: 90tablet, Rfl: 0 carBAMazepine (TEGRETOL) 200 mg tablet, Take 1 (one) tablet (200 mg total) by mouth 3 (three) timesa day ., Disp: 270 tablet, Rfl: 3 cholestyramine (QUESTRAN) 4 gram powder, Take 1 (one) Scoopful (4 g total) by mouth daily ., Disp: 756 g, Rfl: 1 diclofenac sodium 1 % Gel, APPLY A SMALL AMOUNT TO AFFECTED AREA EVERY 6 HOURS NEEDED FOR PAIN, Disp: , Rfl: diphenhydrAMINE-acetaminophen (TYLENOL PM) 25-500 mg Tab, Take 2 tablets by mouth nightly as needed., Disp: , Rfl: fluticasone propionate (FLOVENT HFA) 110 mcg/actuation inhaler, Inhale 2 (two) puffs 2 (two) times a day Rinse mouth after each use ., Disp: 3 each, Rfl: 3 lidocaine 4 % patch, Place 1 (one) patch on the skin daily Use on left hip Remove & Discard patch within 12 hours ., Disp: 30 patch, Rfl: 0 losartan (Cozaar) 100 MG tablet, Take 1 (one) tablet (100 mg total) by mouth daily ., Disp: 90 tablet, Rfl: 3 methadone (DOLOPHINE) 5 MG tablet, Take 10 mg by mouth 2 (two) times a day ., Disp: , Rfl: metoprolol succinate (TOPROL-XL) 50 MG 24 hr tablet, Take 1 (one) tablet (50 mg total) by mouth at bedtime ., Disp: 90 tablet, Rfl: 3 MULTIVIT-MIN/IRON/FOLIC/LUTEIN (CENTRUM SILVER WOMEN ORAL), Take 1 tablet by mouth daily., Disp: , Rfl: nitroGLYCERIN (NITROSTAT) 0.4 MG SL tablet, Place 1 (one) tablet (0.4 mg total) under the tongue every 5 (five) minutes as needed for chest pain , if no relief after 3 doses call 911 ., Disp: 25 tablet, Rfl: 3 omeprazole (PRILOSEC) 40 MG capsule, Take 1 (one) capsule (40 mg total) by mouth daily ., Disp: 90 capsule, Rfl: 0 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 prior biopsies no dysplasia last biopsies 08/2014 Benign carcinoid tumor of the duodenum 2014 Cancer (HCC) skin cancer-squamous cells removed Chronic kidney disease (CKD), stage III (moderate) (HCC) 09/12/2016 EGFR 43 Fibromyalgia Floating kidney GERD (gastroesophageal reflux disease) 2009 Hypertension 1999 Macular degeneration 2017 Myocardial infarction (HCC) 08/2018 STEMI Osteoporosis 2010 Trigeminal neuralgia of left side of face 2005 Vertigo Vitamin D deficiency 2016 Past Surgical History: Procedure Laterality Date BACK SURGERY 2013 fusion and rods placed in lower back. Rick thompson. Dr Hinds BLADDER REPAIR 1989 CATARACT EXT/ECCE Bilateral 2011 Dr [place] CHOLECYSTECTOMY CYST REMOVAL Right 1999 cyst removal from rt breast-benign DILATION AND CURETTAGE (D AND C) 1970 x 2 EGD 01/01/2015 Dr. ZavalaRzlawr-Ycrrftvii-Bozopur's esophagus EGD 08/2014 Dr. Vinicius Pruett-Barrett's esophagitis biopsies negative for dysplasia. ESOPHAGOGASTRODUODENOSCOPY 01/04/2018 Dr. Zavala -biopsies performed-Kelly's esophagitis-carcinoid tumor posterior wall duodenum FRACTURE SURGERY Right Plates and screws in rt arm after fracture. dr Dolan LEFT HEART CATH N/A 08/23/2018 Procedure: Left Heart Cath; Surgeon: Glen Fair MD; Location: [facility]; Service: Cardiovascular HYSTERECTOMY 1975 KIDNEY SURGERY 1969 had exploratory surgery d/t floating kidney Dx KNEE SURGERY Left 1998 left knee arthoscopy LUMPECTOMY Left 1989 benign ORIF HIP GAMMA NAIL Right 04/02/2020 SQUAMOUS CELL CARCINOMA EXCISION x4 TOTAL KNEE ARTHROPLASTY Left 2013 dr dolan TUMOR REMOVAL 2012 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 Social History Socioeconomic History Marital status: Number of children: 2 Years of education: 12 Tobacco Use Smoking status: Former Packs/day: 0.00 Types: Cigarettes Quit date: 04/03/1976 Years since quittin.6 Smokeless tobacco: Never Vaping Use Vaping Use: Never used Substance and Sexual Activity Alcohol use: No Drug use: No Sexual activity: Never Social Determinants of Health Financial Resource Strain: Low Risk Difficulty of Paying Living Expenses: Not hard at all Food Insecurity: No Food Insecurity Worried About Running Out of Food in the Last Year: Never true Ran Out of Food in the Last Year: Never true Transportation Needs: No Transportation Needs Lack of Transportation (Medical): No Lack of Transportation (Non-Medical): No Physical Activity: Insufficiently Active Days of Exercise per Week: 2 days Minutes of Exercise per Session: 20 min Stress: Stress Concern Present Feeling of Stress : To some extent Social Connections: Moderately Isolated Frequency of Communication with Friends and Family: Twice a week Frequency of Social Gatherings with Friends and Family: Once a week Attends [employer] Services: 1 to 4 times per year Active Member of Clubs or Organizations: No Attends Club or Organization Meetings: Patient refused Marital Status: Housing Stability: Low Risk Unable to Pay for Housing in the Last Year: No Number of Places Lived in the Last Year: 1 Unstable Housing in the Last Year: No ROS: Review of Systems Constitutional: Negative for activity change and fatigue. HENT: Negative for congestion, hearing loss and trouble swallowing. Eyes: Negative for visual disturbance. Respiratory: Negative for chest tightness and shortness of breath. Cardiovascular: Negative for chest pain and palpitations. Gastrointestinal: Negative for abdominal pain, diarrhea, nausea and vomiting. Endocrine: Negative for polydipsia, polyphagia and polyuria. Genitourinary: Negative for decreased urine volume, difficulty urinating and hematuria. Musculoskeletal: Positive for arthralgias and gait problem. Negative for joint swelling and myalgias. Skin: Negative for color change, rash and wound. Allergic/Immunologic: Negative for immunocompromised state. Neurological: Positive for weakness. Negative for dizziness, light-headedness and numbness. Hematological: Does not bruise/bleed easily. Psychiatric/Behavioral: Negative for confusion and sleep disturbance. The patient is not nervous/anxious. PE: Physical Exam Constitutional: Appearance: She is well-developed. HENT: Head: Normocephalic. Eyes: Pupils: Pupils are equal, round, and reactive to light. Cardiovascular: Rate and Rhythm: Normal rate and regular rhythm. Pulmonary: Effort: Pulmonary effort is normal. Breath sounds: Normal breath sounds. Abdominal: General: Bowel sounds are normal. Palpations: Abdomen is soft. Musculoskeletal: General: Tenderness present. Cervical back: Normal range of motion and neck supple. Left hip: Tenderness present. No crepitus. Decreased range of motion. Decreased strength. Legs: Skin: General: Skin is warm and dry. Neurological: Mental Status: She is alert and oriented to person, place, and time. ORTHO: Left Hip Exam Tenderness The patient is experiencing tenderness in the posterior. Range of Motion External rotation: 50 Internal rotation: 25 Muscle Strength The patient has normal left hip strength. Tests LUZ ELENA: negative Elizabeth: positive Other Erythema: absent Scars: absent Sensation: normal Pulse: present Imaging: Left hip: Reviewed from 10/16/2021. Partially imaged lower lumbar/sacral fixation hardware.The femoral head is well seated in the acetabula. There is mild superior joint space narrowing of the hip with mild sclerosis and spurring along the margin of the acetabulum. Deformity of the left puboacetabular junction and there is a deformity at the inferior left pubic ramus. Assessment/Plan: After examination and reviewing of the patient x-ray images we discussed treatmentoptions for the left hip. At this point time I am starting with very conservative treatment measures. I would like her to continue with the topical creams as well as the lidocaine patches. I am starting her in a course of outpatient physical therapy for the left hip. I will see her back in approximately 4 to 6 weeks for follow-up. She does verbalize understanding and is in agreement with the treatment plan. Diagnosis: Problem List Items Addressed This Visit Other Chronic left SI joint pain Left hip pain Follow Up: documented in this [id number] Miscellaneous Notes* Telephone Encounter - Caitie Alvarez LPN - 10/25/2021 4:29 PM EDT Last OV 10/16/21. Next OV 12/19/21. Fax received form pharmacy requesting refill for a 90 day supplywith refills for Omeprazole. documented in this [id number] Telephone encounter Note* Telephone Encounter - Caitie Alvarez LPN - 10/25/2021 4:29 PM EDT Last OV 10/16/21. Next OV 12/19/21. Fax received form pharmacy requesting refill for a 90 day supplywith refills for Omeprazole. [id number] Evaluation + Plan note* Assessment & Plan Note - Gabi Xie MD - 10/16/2021 10:58 AM EDTAssociated Problem(s): Dysuria ua completed for possible uti sx No evidence of infection [id number] Miscellaneous Notes* Assessment & Plan Note - Gabi Xie MD - 10/16/2021 10:58 AM EDTAssociated Problem(s): Dysuria ua completed for possible uti sx No evidence of infection * Assessment & Plan Note - Gabi Xie MD - 10/16/2021 10:49 AM EDTAssociated Problem(s): Left hip pain Hx of chronic si joint pian No acute fall Will get xray completed Has completed 5 days of prednisone Will prescribe mobic fo 5 days and lidocaine patches * Assessment & Plan Note - Gabi Xie MD - 10/16/2021 10:48 AM EDTAssociated Problem(s): At moderate risk for fall Hx of mechanical falls Has followed up with physical therapy before w/ her lower back pain and for gait instbaility Would like to hold off on referral until after imaging is completed Using cane Has not had fall in >4 months- states she takes her time and walks slowly documented in this [id number] Evaluation + Plan note* Assessment & Plan Note - Gabi Xie MD - 10/16/2021 10:49 AM EDTAssociated Problem(s): Left hip pain Hx of chronic si joint pian No acute fall Will get xray completed Has completed 5 days of prednisone Will prescribe mobic fo 5 days and lidocaine patches [id number] Evaluation + Plan note* Assessment & Plan Note - Gabi Xie MD - 10/16/2021 10:48 AM EDTAssociated Problem(s): At moderate risk for fall Hx of mechanical falls Has followed up with physical therapy before w/ her lower back pain and for gait instbaility Would like to hold off on referral until after imaging is completed Using cane Has not had fall in >4 months- states she takes her time and walks slowly [id number] History of Present illness Narrative* Gabi Xie MD - 10/16/2021 10:22 AM EDT Assessment Assessment/Plan: Problem List At moderate risk for fall - Primary Hx of mechanical falls Has followed up with physical therapy before w/ her lower back pain and for gait instbaility Would like to hold off on referral until after imaging is completed Using cane Has not had fall in >4 months- states she takes her time and walks slowly Relevant Orders Ambulatory Referral to Physical Therapy (Internal) Dysuria ua completed for possible uti sx No evidence of infection Relevant Orders POC Urinalysis Dipstick (Completed) Left hip pain Hx of chronic si joint pian No acute fall Will get xray completed Has completed 5 days of prednisone Will prescribe mobic fo 5 days and lidocaine patches Relevant Orders XR Hip Left 2-3 Views (Routine) Return in about 4 weeks (around 11/13/2021) for Follow up Chronic Conditions. For any new medications prescribed today, patient was educated about indications for the medication, how to take the medication and potential side effects of the medications. Gabi Xie MD [facility] [address] [facility] [address] [facility] [address] Dept: [phone] Subjective Chief Complaint Patient presents with Follow-up [place] pt Hip Pain Left Fall Risk Screening HPI Cat Castillo Glen is a 86 y.o. female with a past medical history of chronic left SI joint pain, history of IA, hypertension, CKD, TMJ, osteoporosis presenting for left hip pain This is a acute on chronic problem. The current episode started in the past 2 week(s). The problem has has moderately improved. Associated symptoms include: Pain worse when she is sitting and laying on her left side.Pertinent negatives include: No numbness, tingling or weakness in her lower extremities. Patient initially believed that she had a urinary tract infection because she had burning and discomfort when she would urinate. She states this has since resolved. The pain is at a severity of 0/10 at the moment because she was given prednisone by a nurse at [facility]. She is currentlyon day 5 and it's her last day of medication. She states if she does not take prednisone, the pain can be 9/10. She denies any worsening gait instability since this pain has started. She actually states that walking alleviates her symptoms. Patient previously was following up with for chronic low back pain- has received coritosne injections and had spinal surgery. She denies any hx of cortisone injections in her hip. She has a hx of falls and has been using a cane but denies any falls re cently (>4 months). All pertinent positives and negatives are documented in ROS Patient's medications, allergies, past medical history, surgical history history, family history, social history were reviewed. Spent more than 20 minutes with patient, coordinating patient care, including reviewing charts and counseling patient. 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 prior biopsies no dysplasia last biopsies 08/2014 Benign carcinoid tumor of the duodenum 2014 Cancer (HCC) skin cancer-squamous cells removed Chronic kidney disease (CKD), stage III (moderate) (HCC) 09/12/2016 EGFR 43 Fibromyalgia Floating kidney GERD (gastroesophageal reflux disease) 2009 Hypertension 1999 Macular degeneration 2017 Myocardial infarction (HCC) 08/2018 STEMI Osteoporosis 2009 Trigeminal neuralgia of left side of face 2004 Vertigo Vitamin D deficiency 2015 Past Surgical History: Procedure Laterality Date BACK SURGERY 2013 fusion and rods placed in lower back. [place]rera donna. Dr Hinds BLADDER REPAIR 1989 CATARACT EXT/ECCE Bilateral 2011 Dr [place] CHOLECYSTECTOMY CYST REMOVAL Right 1999 cyst removal from rt breast-benign DILATION AND CURETTAGE (D AND C) 1970 x 2 EGD 01/01/2015 Dr. ZavalaXcgwqb-Hntndfzed-Wyvuugu's esophagus EGD 08/2014 Dr. Vinicius RamachandranC-Cmofeosxu-Roqehhe's esophagitis biopsies negative for dysplasia. ESOPHAGOGASTRODUODENOSCOPY 01/04/2018 Dr. Zavala -biopsies performed-Kelly's esophagitis-carcinoid tumor posterior wall duodenum FRACTURE SURGERY Right Plates and screws in rt arm after fracture. dr Dolan [facility] LEFT HEART CATH N/A 08/23/2018 Procedure: Left Heart Cath; Surgeon: Glen Fair MD; Location: [facility]; Service: Cardiovascular HYSTERECTOMY 1974 KIDNEY SURGERY 1968 had exploratory surgery d/t floating kidney Dx KNEE SURGERY Left 1997 left knee arthoscopy LUMPECTOMY Left 1989 benign ORIF HIP GAMMA NAIL Right 04/02/2020 SQUAMOUS CELL CARCINOMA EXCISION x4 TOTAL KNEE ARTHROPLASTY Left 2012 dr dolan TUMOR REMOVAL 2011 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 Family History Problem Relation Age of Onset Diabetes Mother Heart disease Mother Heart disease Father Stroke Father Diabetes Sister Dementia Sister Heart disease Brother Diabetes Brother Diabetes Maternal Uncle Bipolar disorder Daughter Diabetes Son Cancer Neg Hx Aneurysm Neg Hx Seizures Neg Hx Social History Tobacco Use Smoking status: Former Packs/day: 0.00 Types: Cigarettes Quit date: 04/03/1976 Years since quittin.5 Smokeless tobacco: Never Vaping Use Vaping Use: Never used Substance Use Topics Alcohol use: No Drug use: No Allergies Allergen Reactions Aspirin GI Intolerance Indigestion Bacitracin Zinc-Polymyxin B Codeine Unknown Latex, Natural Rubber Unknown Qzjkboac-Iefzoyerguh-Ifeaxwpcj Hydrocortisone Rash Patient's Medications New Prescriptions LIDOCAINE 4 % PATCH Place 1 (one) patch on the skin daily Use on left hip Remove & Discard patch within 12 hours . MELOXICAM (MOBIC) 15 MG TABLET Take 1 (one) tablet (15 mg total) by mouth daily for 5 days . Previous Medications ASPIRIN 81 MG EC TABLET Take 81 mg by mouth daily . ATORVASTATIN (LIPITOR) 80 MG TABLET Take 1 (one) tablet (80 mg total) by mouth nightly . CARBAMAZEPINE (TEGRETOL) 200 MG TABLET Take 1 (one) tablet (200 mg total) by mouth 2 (two) times a day . CHOLESTYRAMINE (QUESTRAN) 4 GRAM POWDER Take 1 (one) Scoopful (4 g total) by mouth daily . DICLOFENAC SODIUM 1 % GEL APPLY A SMALL AMOUNT TO AFFECTED AREA EVERY 6 HOURS NEEDED FOR PAIN DIPHENHYDRAMINE-ACETAMINOPHEN (TYLENOL PM) 25-500 MG TAB Take 2 tablets by mouth nightly as needed . FLUTICASONE PROPIONATE (FLOVENT HFA) 110 MCG/ACTUATION INHALER Inhale 2 (two) puffs 2 (two) times aday Rinse mouth after each use . LOSARTAN (COZAAR) 100 MG TABLET Take 1 (one) tablet (100 mg total) by mouth daily . METHADONE (DOLOPHINE) 5 MG TABLET Take 10 mg by mouth 2 (two) times a day . METOPROLOL SUCCINATE (TOPROL-XL) 50 MG 24 HR TABLET Take 1 (one) tablet (50 mg total) by mouth at bedtime . MULTIVIT-MIN/IRON/FOLIC/LUTEIN (CENTRUM SILVER WOMEN ORAL) Take 1 tablet by mouth daily. NITROGLYCERIN (NITROSTAT) 0.[address] 1 (one) tablet (0.4 mg total) under the tongue every 5 (five) minutes as needed for chest pain , if no relief after 3 doses call 911 . OMEPRAZOLE (PRILOSEC) 40 MG CAPSULE Take 1 (one) capsule (40 mg total) by mouth daily . Modified Medications No medications on file Discontinued Medications METHYLPREDNISOLONE (MEDROL DOSEPACK) 4 MG TABLET use as directed FOLLOW DIRECTIONS ON BACK OF FOIL PACK PHENYTOIN (DILANTIN) 100 MG ER CAPSULE Take 1 (one) capsule (100 mg total) by mouth 2 (two) times aday . Review of Systems Constitutional: Negative for chills, fatigue and fever. Respiratory: Negative for cough. Cardiovascular: Negative for chest pain. Gastrointestinal: Negative for abdominal pain, diarrhea and nausea. Genitourinary: Negative. Musculoskeletal: Positive for arthralgias (hip pain), back pain (chronic) and gait problem (chronic). Negative for joint swelling and myalgias. Skin: Negative for color change and wound. Neurological: Negative for weakness, numbness and headaches. No decreased sensation, tingling, no cauda equina symptoms, no fecal/urinary incontinence Objective Vitals: 10/16/21 1002 10/16/21 1008 BP: (!) 166/93 (!) 164/79 BP Location: Right arm Left arm Patient Position: Sitting Sitting BP Cuff Size: Adult Adult Pulse: 76 75 Resp: 16 Temp: 97.6 F (36.4 C) TempSrc: Temporal SpO2: 98% Weight: 59 kg (130 lb) Height: 5' 4 Estimated body mass index is 22.31 kg/m as calculated from the following: Height as of this encounter: 5' 4. Weight as of this encounter: 59 kg (130 lb). Physical Exam Constitutional: Appearance: Normal appearance. HENT: Head: Normocephalic and atraumatic. Eyes: Extraocular Movements: Extraocular movements intact. Cardiovascular: Rate and Rhythm: Normal rate and regular rhythm. Pulmonary: Effort: Pulmonary effort is normal. Breath sounds: Normal breath sounds. Abdominal: General: Abdomen is flat. Palpations: Abdomen is soft. Musculoskeletal: Lumbar back: Bony tenderness present. Negative right straight leg raise test and negative left straight leg raise test. Right hip: No tenderness. Normal range of motion. Normal strength. Left hip: No tenderness or crepitus. Normal range of motion. Normal strength. Comments: Luz Elena test neg Able to step on foot stool w/ left foot to sit on examination table without difficulty Neurological: General: No focal deficit present. Mental Status: She is alert and oriented to person, place, and time. Mental status is at baseline. Cranial Nerves: No cranial nerve deficit. Sensory: No sensory deficit. Motor: No weakness. Coordination: Coordination normal. Gait: Gait abnormal. Psychiatric: Mood and Affect: Mood normal. Behavior: Behavior normal. Thought Content: Thought content normal. Judgment: Judgment normal. PHQ9: JOHNATHON-7 Tobacco Counseling: Counseling given: Not Answered documented in this [id number] Instructions* Patient Instructions* Gabi Xie MD - 10/16/2021 10:22 AM EDT STEADI Moderate Risk Patient Instructions: Your Falls Screening today shows that you are at moderate risk for falls. To protect yourself from falls and maintain your independence, we recommend: 1. Read through the brochure, What You Can Do to Prevent Falls (from [facility]). 2. Go through the brochure, Check for Safety: A Home Fall Prevention Checklist for Older Adults (from [facility]), and make changes as recommended. 3. We have referred you to physical therapy. You can either go to outpatient physical therapy or have a therapist come to your home. 4. After you have completed your physical therapy, you are encouraged to join a community falls prevention program: Stepping On, a 7-week evidence based program that teaches balance exercises and fall prevention strategies [facility] for older adults, group exercise that teaches [facility] forms that reduce fall risk (weight shifting, postural alignment and control, and coordinated movements of the arms, legs, head, and trunk) Matter of Balance, an evidence based program designed to reduce the fear of falling and increase activity levels of older adults OR an exercise class for strength and balance. 5. Take your Vitamin D with or without Calcium, as determined by your healthcare provider. 6. Get your vision and hearing checked annually. Falls At Home Each year, thousands of older Americans fall at home. Many of them are seriously injured, and some are disabled. In 2011, nearly 23,000 people over age 65 and 2.4 million were treated in emergency departments because of falls. Falls are often due to hazards that are easy to overlook but easy to fix. This checklist will help you find and fix those hazards in your home. The checklist asks about hazards found in each room of your home. For each hazard, the checklist tells you how to fix the problem. At the end of the checklist, you ll find other tips for preventing falls. FLOORS: Look at the floor in each room. Q: When you walk through a room, do you have to walk around furniture? A. Ask someone to move the furniture so your path is clear Q: Do you have throw rugs on the floor? A. Remove the rugs or use double-sided tape or a non-slip backing so the rugs won t slip. Q: Are there papers, books, towels, shoes, magazines, boxes, blankets, or other objects on the floor? A.advertising supervisor things that are on the floor. Always keep objects off the floor. Q: Do you have to walk over or around wires or cords (like lamp, telephone, or extension cords)? A. Coil or tape cords and wires next to the wall so you can t trip over them. If needed, have an machine tool electrician put in another outlet. STAIRS AND STEPS: Look at the stairs you use both inside and outside your home. Q: Are there papers, shoes, books, or other objects on the stairs? A. advertising supervisor things on the stairs. Always keep objects off stairs. Q: Are some steps broken or uneven? A. Fix loose or uneven steps. Q: Are you missing a light over the stairway? A. Have an machine tool electrician put in an overhead light at the top and bottom of the stairs. Q: Do you have only one light switch for your stairs (only at the top or at the bottom of the stairs)? A. Have an machine tool electrician put in a light switch at the top and bottom of the stairs. You can get lightswitches that glow. Q: Has the stairway light bulb burned out? A. Have a friend or family member change the light bulb. Q: Is the carpet on the steps loose or torn? A. Make sure the carpet is firmly attached to every step, or remove the carpet and attach non-slip rubber treads to the stairs. Q: Are the handrails loose or broken? Is there a handrail on only one side of the stairs? A. Fix loose handrails or put in new ones. Make sure handrails are on both sides of the stairs and are as long as the stairs. KITCHEN: Look at your kitchen and eating area. Q: Are the things you use often on high shelves? A. Move items in your cabinets. Keep things you use often on the lower shelves (about waist level). Q: Is your step stool unsteady? A. If you must use a step stool, get one with a bar to hold on to. Never use a chair as a step stool. BATHROOMS: Look at all your bathrooms. Q: Is the tub or shower floor slippery? A. Put a non-slip rubber mat or self-stick strips on the floor of the tub or shower. Q: Do you need some support when you get in and out of the tub or up from the toilet? A. Have grab bars put in next to and inside the tub and next to the toilet. BEDROOMS: Look at all your bedrooms. Q: Is the light near the bed hard to reach? A. Place a lamp close to the bed where it s easy to reach. Q: Is the path from your bed to the bathroom dark? A. Put in a night-light so you can see where you re walking. Some night-lights go on by themselves after dark. Other Things You Can Do to Prevent Falls Do exercises that improve your balance and make your legs stronger. Exercise also helps you feel better and more confident. Have your doctor or pharmacist look at all the medicines you take, even wzxp-wko-wucywot medicines.Some medicines can make you sleepy or dizzy. Have your eyes checked by an eye doctor at least once a year and update your glasses. Get up slowly after you sit or lie down. Wear shoes both inside and outside the house. Avoid going barefoot or wearing slippers. Improve the lighting in your home. Put in brighter light bulbs. Florescent bulbs are bright and cost less to use. It s safest to have uniform lighting in a room. Add lighting to dark areas. Hang lightweight curtains or shades to reduce glare. [place] a contrasting color on the top edge of all steps so you can see the stairs better. For example, use a light color paint on dark wood. To access this brochure online, please visit the CDC website at http://www.cdc.gov/steadi/pdf/check_for_safety_brochure-a.pdf Chair Rise Exercise What it does: Strengthens the muscles in your thighs & buttocks. Goal: To do this exercise without using your hands as you become stronger. How to do it: 1. Sit toward the front of a sturdy chair with your knees bent & feet flat on the floor shoulder-width apart 2. Rest your hands lightly on the seat on either side of you, keeping your back & neck straight& and chest slightly forward. 3. Breathe in slowly. Lean forward & feel your weight on the front of your feet. 4. Breathe out and slowly stand up, using your hands as little as possible. 5. Pause for a full breath in & out. 6. Breathe in as you slowly sit down. Do not let yourself collapse back down into the chair. Rather, control your lowering as much as possible. 7. Breathe out. Repeat 10-15 times. If this number is too hard for you when you first start practicing this exercise, begin with fewer and work up to this number. Rest for a minute & then do a final set of 10-15. For detailed instructions, please visit the CDC website at http://www.cdc.gov/steadi/pdf/chair_rise_exercise-a.pdf Stepping On is an evidence based program proven to reduce falls in older adults. It is a workshop offered once a week for seven weeks. In a small-group setting, you will learn balance exercises and develop specific knowledge and skills to prevent falls. Older adults who should attend are those who: are at risk of falling who have fallen one or more times lives at home are able to walk without the help of another person Local guest experts provide information on exercise, safety, vision, and medications. Classes are offered at [facility]. To find out specifics about a class, please call [phone]. [facility]: Moving for Better Balance involves low impact exercise. The 12-week class is offered for three hours per week and is led by a trained instructor ballroom dancing. It is intended for people aged 60 and older. Participants learn and perform a program of eight forms that progress from easy to more difficult. The program can accommodate persons with various physical conditions. Health Benefits of [facility]: Moving for Better Balance: Improved social and mental well-being, Improved balance and physical functioning, Improved confidence in conducting daily activities, Reduced risk of falling and sustaining associated injuries, and Maintained independence and improved quality of life. To find a [facility] program in your area or additional resources about fall prevention please contact: [facility] Violence and Injury Prevention Program at [phone] or [email or web address] A Matter of Balance: Managing Concerns about Falls is an evidence based program designed to reduce the fear of falling and increase activity levels of older adults. A trained stator connector leads 8 two-hour sessions for small groups of older adults. The class is intended for people 60 and older who are at risk of falling have a fear of falling or restrict activities who have fallen in the past are interested in improving flexibility, balance, and strength. Participants will learn to view falls as controllable, set goals to increase activity levels, and reduce fall risks at home. Classes are offered in all [address] [place] [address] in [place]. For more information about specific classes near you, please visit http://aging.[place].gov/steadyu/resources/matterofbalance.aspx. Problem List Items Addressed This Visit Other At moderate risk for fall - Primary Hx of mechanical falls Has followed up with physical therapy before w/ her lower back pain and for gait instbaility Would like to hold off on referral until after imaging is completed Using cane Has not had fall in >4 months- states she takes her time and walks slowly Relevant Orders Ambulatory Referral to Physical Therapy (Internal) Dysuria ua completed for possible uti sx No evidence of infection Relevant Orders POC Urinalysis Dipstick (Completed) Left hip pain Hx of chronic si joint pian No acute fall Will get xray completed Has completed 5 days of prednisone Will prescribe mobic fo 5 days and lidocaine patches Relevant Orders XR Hip Left 2-3 Views (Routine) If any referrals were placed at the time of your visit please allow 2 weeks for processing. If you haven't heard from anyone within 2 weeks please contact my office so we can look into the status of your referral. If you were given any labs today please ensure they are completed according to the directions given. Most normal results will be available through [facility] however if abnormal, you will be notified. Please allow 48-72 hours for review, and let you know what steps, if any, are needed next. If you haven't heard from us after that please call to inquire. If labs were ordered to be done PRIOR to your next visit we will discuss the results at the time ofyour office visit. If any procedures or imaging studies were ordered that must be prior authorized please give us 2 weeks to get them approved. Once approved someone should call you to schedule them or give you a date and time that they were scheduled for. If you haven't heard anything within 2 weeks of the office visit please call the office so we can look into their status. Customer Service/Billing Questions: [phone] MyChart Assistance: [phone] or [phone] Financial Assistance: [phone] or [phone] documented in this [id number] Telephone encounter Note* Telephone Encounter - Kiara Rees MA - 09/11/2021 11:18 AM EDT Patient last seen in off on 05/30/21, requesting refill on atorvastatin 80 mg. Pharmacy is [facility]. [id number] Telephone encounter Note* Telephone Encounter - Kiara Rees MA - 09/11/2021 11:18 AM EDT ----- Message from Rosanna Herr sent at 09/11/2021 10:38 AM EDT ----- Regarding: Rx Refill Contact: Cat, MEDICATION REFILL REQUEST: PCP: Claudine Majano MD Patient called 09/11/21 and is requesting a medication refill for atorvastatin (LIPITOR) 80 MG tablet This was confirmed from the current medication list found in the patients chart. Supply Requested: # of days: 90 days Method of receiving: Send to pharmacy Last set of flowsheet rows for OARRS report: OARRS/NARxCHECK Report Received and Assessed: 04/11/2020 Date controlled substance agreement signed: 03/15/2020 Date of last drug screen: No data found Functional Assessment: No data found Will this refill be sent to the preferred pharmacy listed below? Yes Preferred pharmacies: [facility] - [place], [place] - [address] [place] [id number] Pt Call Back Number Work Phone Not on file. Patient call back message sent to the primary care clinical pool. Rosanna Herr [id number] Miscellaneous Notes* Telephone Encounter - Kiara Rees MA - 09/11/2021 11:18 AM EDT Patient last seen in off on 05/30/21, requesting refill on atorvastatin 80 mg. Pharmacy is [facility]. * Telephone Encounter - Kiara Rees MA - 09/11/2021 11:18 AM EDT ----- Message from Rosanna Herr sent at 09/11/2021 10:38 AM EDT ----- Regarding: Rx Refill Contact: Cat [phone] MEDICATION REFILL REQUEST: PCP: Claudine Majano MD Patient called 09/11/21 and is requesting a medication refill for atorvastatin (LIPITOR) 80 MG tablet This was confirmed from the current medication list found in the patients chart. Supply Requested: # of days: 90 days Method of receiving: Send to pharmacy Last set of flowsheet rows for OARRS report: OARRS/NARxCHECK Report Received and Assessed: 04/11/2020 Date controlled substance agreement signed: 03/15/2020 Date of last drug screen: No data found Functional Assessment: No data found Will this refill be sent to the preferred pharmacy listed below? Yes Preferred pharmacies: [facility] - [place], [place] - [address] [place] [id number] [facility] [id number] Pt Call Back Number Work Phone Not on file. Patient call back message sent to the primary care clinical pool. Rosanna Herr documented in this [id number] Instructions* Patient Instructions* Brayan Mena MD - 07/12/2021 2:01 PM EDT May increase carbamazepine from 200 mg 3 times a day to carbamazepine 300 mg 3 times a day to help with your trigeminal neuralgia. Watch closely for any dizziness, drowsiness, unsteadiness, double vision. May use carbamazepine 300 mg 3 times a day for 3 to 4 weeks, then reduce back to carbamazepine 200 mg 3 times a day if symptoms are not better. Monitor for any drug interaction. We will check blood tests after 2 weeks. The orders are sent out to the lab. We will see her for follow-up visit around 6 months. documented in this [id number] History of Present illness Narrative* Brayan Mena MD - 07/12/2021 1:43 PM EDT Subjective Patient ID: Cat Carroll is a 86 y.o. female. Patient came for follow-up neurological evaluation. She had history of trigeminal neuralgia and diagnosed by Dr. Sweet more than 20 years ago. She also has been evaluated at [facility]. She started gabapentin and later carbamazepine. She thinks that gabapentin caused her to be dizzy and unsteady. Previously she is using gabapentin 400 mg 3 times a day and Topamax 50 mg 3 times a day. She hasbeen on carbamazepine, topiramate, gabapentin, acupuncture, in the past. The acupuncture has helpedbut caused her $125 for a session and she 3 sessions a week. She was unable to afford it. Her pain is described as sharp shooting electrical pain mainly on the left V2 distribution and previously located left V1. She will have some residual soreness on the left supraorbital area. She denies any history of migraine, sinusitis, hearing loss, tinnitus, vertigo, or dental problems. Cold wind might trigger the pain and occasionally chewing might also cause the pain. No change in vision. Nospeech difficulty. She has been using carbamazepine 200 mg 3 times a day. She feels occasional twinges but not as severe as before. Past medical history include hypertension, hyperlipidemia, coronary artery disease, osteoarthritis,tremors, Kelly's esophagus, chronic kidney disease, fibromyalgia, gastroesophageal reflux disorder, macular degeneration. No tobacco, alcohol, or recreational drug use. Family history is negative for trigeminal neuralgia but positive for tremors. The following portions of the patient's history were reviewed and updated as appropriate: allergies, current medications, past family history, past medical history, past social history, past surgicalhistory and problem list. All systems reviewed and negative except pertinent positives and negatives documented in the History of Present Illness (HPI). Objective Patient awake and alert. Patient is oriented. Attention and comprehension were intact. Behavior is appropriate. Follows simple commands. Speech is fluent and spontaneous. Language is intact. Pupils are 4 mm equally reactive to light. No ptosis, nystagmus, or gaze deviation. Extraocular muscles intact. Face is symmetrical. Hearing is grossly intact. Gross strength is intact with normal muscle tone and bulk. No muscle fasciculations. No tremors or abnormal movements. Assessment/Plan: Patient with chronic intermittent left trigeminal neuralgia initially diagnosed more than 20 years ago affecting left V2 and occasionally left V1 distribution. Differential diagnosis includes atypical facial pain. She had went for years without any attacks but has came back. Previous medication include Topamax 50 mg 3 times a day and gabapentin 400 mg 3 times a day. But she thinks the gabapentin has been causing her to be dizzy and unsteady and was unable to tolerate it. She started carbamazepine 200 mg 3 times a day which she continues to take without any side effects. Brain MRI: 1. Nonspecific white matter changes may represent small-vessel ischemic disease in a patient of this age. Areas of encephalomalacia in the cerebellum may reflect remote ischemic injury. There is no evidence of acute ischemic injury. 2. Limited evaluation of the posterior fossa due to patient motion on The high- resolution axial T2 weighted images. A flow void does appear to at least abut the inner aspect of the proximal cisternalsegment of the left trigeminal nerve. Brain MRA: There are multifocal areas with attenuated flow related signal along the anterior and posterior circulation thought to largely e due to artifact. However, diminished flow can not be excluded. Impression: 1. 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 Hypertension 3. Hyperlipidemia 4. Tremors 5. Osteoarthritis 6. Coronary artery disease 7. Kelly's esophagus 8. Chronic kidney disease 9. Fibromyalgia 10. GERD 11. Macular degeneration Suggestion: May increase carbamazepine from 200 mg 3 times a day to carbamazepine 300 mg 3 times a day to help with your trigeminal neuralgia. Watch closely for any dizziness, drowsiness, unsteadiness, double vision. May use carbamazepine 300 mg 3 times a day for 3 to 4 weeks, then reduce back to carbamazepine 200 mg 3 times a day if symptoms are not better. Monitor for any drug interaction. May use ice pack as needed. We will check blood tests after 2 weeks. The orders are sent out to the lab. We will see her for follow-up visit around 6 months. Diagnostic impression, plans, and suggestions were explained and discussed. Records from the referring physician were reviewed. Clinical imaging study/ labs/medical tests were ordered/reviewed. Indications, risk, complications, side effects and alternatives of medications/therapeutics were explained and discussed. Monitor closely for any side effects or complications of medications. Questions andconcerns were addressed. Please call or contact us for any problems. She will call us for an updatein 1 to 2 months. I will see her for follow-up visit in 4 months. Starla little: Portions of this chart was created using Evolve IP voice recognition software. Occasional wrong-word or sound-like substitutions may have occurred due to inherent limitations of the voice recognition software. Please read the chart carefully and recognize, using context, where the substitutions have occurred. Time Code: 45 minutes 1. Preparation for patient's visit (reviewing previous chart, current medical records, previous history, exam, test, procedure, and medications) 2. Face to face encounter obtaining history from the patient/family/caregivers; performing evaluation and examination; ordering medications, tests, or procedures; referring and communicating with other healthcare professionals; counseling and education of the patient/family/caregiver; independently interpreting results (tests, labs, procedures, imaging) and communicating and explaining results tothe patient/family/caregiver 3. Coordination of care; preparing and printing discharge instruction and any educational material for the patient and caregivers. Documenting clinical information in the electronic and other health records. Reviewing OARRS as needed. documented in this [id number] Telephone encounter Note* Telephone Encounter - Blayne Machado MA - 07/01/2021 3:24 PM EDT Patient called in requesting a refill on her nitroglycerin because she had noticed her vial is . Last OV 02/12/2021. Refills appropriate. [id number] Miscellaneous Notes* Telephone Encounter - Blayne Machado MA - 07/01/2021 3:24 PM EDT Patient called in requesting a refill on her nitroglycerin because she had noticed her vial is . Last OV 02/12/2021. Refills appropriate. documented in this [id number] Instructions* Patient Instructions* Gisell Desai CNP - 05/30/2021 3:46 PM EDT Problem List Items Addressed This Visit Genitourinary UTI (urinary tract infection) Relevant Medications ciprofloxacin HCl (CIPRO) 500 MG tablet phenazopyridine (PYRIDIUM) 200 MG tablet Other Visit Diagnoses Urinary frequency - Primary Relevant Medications ciprofloxacin HCl (CIPRO) 500 MG tablet Other Relevant Orders POC Urinalysis Dipstick (Completed) Urine Aerobic Culture If any referrals were placed at the time of your visit please allow 2 weeks for processing. If you haven't heard from anyone within 2 weeks please contact my office so we can look into the status of your referral. If you were given any labs today please ensure they are completed according to the directions given. Once labs are completed please allow 1-2 weeks for us to receive the results, review them, and letyou know what steps, if any, are needed next. If you haven't heard from us after that please call to inquire. If labs were ordered to be done PRIOR to your next visit we will discuss the results at the time ofyour office visit. If any procedures or imaging studies were ordered that must be prior authorized please give us 2 weeks to get them approved. Once approved someone should call you to schedule them or give you a date and time that they were scheduled for. If you haven't heard anything within 2 weeks of the office visit please call the office so we can look into their status. Customer Service/Billing Questions: [phone] MyChart Assistance: [phone] or [phone] Financial Assistance: [phone] or [phone] * Attachments The following attachments cannot be sent through Care Everywhere. * UTI (Urinary Tract Infection): Female ([place]) documented in this [id number] History of Present illness Narrative* Gisell Desai CNP - 05/30/2021 3:32 PM EDT Images from the original note were not included. Subjective Patient ID: Cat Carroll is a 86 y.o. female. Urinary Tract Infection This is a new problem. The current episode started in the past 7 days. The problem occurs every urination. The problem has been gradually worsening. The quality of the pain is described as burning. The pain is at a severity of 5/10. The pain is moderate. There has been no fever. She is not sexuallyactive. There is no history of pyelonephritis. Associated symptoms include frequency and urgency. Pertinent negatives include no chills, discharge, flank pain, hematuria, hesitancy, nausea, possible , sweats or vomiting. She has tried increased fluids and acetaminophen for the symptoms. The treatment provided mild relief. Her past medical history is significant for recurrent UTIs. There is no history of catheterization, kidney stones, a single kidney, urinary stasis or a urological procedure. The following were reviewed and updated as appropriate for today's visit: allergies, current medications, past family history, past medical history, past social history, past surgical history and problem list. Patient's Medications New Prescriptions CIPROFLOXACIN HCL (CIPRO) 500 MG TABLET Take 1 (one) tablet (500 mg total) by mouth 2 (two) times aday . PHENAZOPYRIDINE (PYRIDIUM) 200 MG TABLET Take 1 (one) tablet (200 mg total) by mouth 3 (three) times a day . Previous Medications ASPIRIN 81 MG EC TABLET Take 81 mg by mouth daily . ATORVASTATIN (LIPITOR) 80 MG TABLET Take 1 (one) tablet (80 mg total) by mouth nightly . CARBAMAZEPINE (TEGRETOL) 200 MG TABLET Take 1 (one) tablet (200 mg total) by mouth 3 (three) times a day . CHOLESTYRAMINE (QUESTRAN) 4 GRAM POWDER Take 1 (one) Scoopful (4 g total) by mouth daily . DIPHENHYDRAMINE-ACETAMINOPHEN (TYLENOL PM) 25-500 MG TAB Take 2 tablets by mouth nightly as needed . FLUTICASONE PROPIONATE (FLOVENT HFA) 110 MCG/ACTUATION INHALER Inhale 2 (two) puffs 2 (two) times aday Rinse mouth after each use . LOSARTAN (COZAAR) 100 MG TABLET Take 1 (one) tablet (100 mg total) by mouth daily . METHADONE (DOLOPHINE) 5 MG TABLET Take 10 mg by mouth 2 (two) times a day . METOPROLOL SUCCINATE (TOPROL-XL) 50 MG 24 HR TABLET Take 1 (one) tablet (50 mg total) by mouth at bedtime . MULTIVIT-MIN/IRON/FOLIC/LUTEIN (CENTRUM SILVER WOMEN ORAL) Take 1 tablet by mouth daily. NITROGLYCERIN (NITROSTAT) 0.[address] 1 (one) tablet (0.4 mg total) under the tongue every 5 (five) minutes as needed for chest pain , if no relief after 3 doses call 911 . OMEPRAZOLE (PRILOSEC) 40 MG CAPSULE Take 1 (one) capsule (40 mg total) by mouth daily . Modified Medications No medications on file Discontinued Medications No medications on file Review of Systems Review of Systems Constitutional: Negative for chills. Gastrointestinal: Negative for nausea and vomiting. Genitourinary: Positive for frequency and urgency. Negative for flank pain, hematuria and hesitancy. Vitals: 05/30/21 1506 05/30/21 1518 BP: (!) 181/83 (!) 163/81 BP Location: Left arm Left arm Patient Position: Sitting Sitting BP Cuff Size: Adult Adult Pulse: 75 Resp: 16 Temp: 97.9 F (36.6 C) TempSrc: Oral SpO2: 98% Weight: 62.2 kg (137 lb 3.2 oz) Height: 5' 4 Body mass index is 23.55 kg/m . Physical Exam Physical Exam Constitutional: Appearance: She is well-developed. HENT: Right Ear: External ear normal. Left Ear: External ear normal. Nose: Nose normal. Eyes: General: Lids are normal. Conjunctiva/sclera: Conjunctivae normal. Cardiovascular: Rate and Rhythm: Normal rate and regular rhythm. Heart sounds: Normal heart sounds. No murmur heard. Pulmonary: Effort: Pulmonary effort is normal. Breath sounds: Normal breath sounds. Abdominal: Tenderness: There is abdominal tenderness in the suprapubic area. There is no right CVA tenderness or left CVA tenderness. Musculoskeletal: Cervical back: Normal range of motion. Comments: Stiff unsteady gait, using cane for ambulation. Skin: General: Skin is warm and dry. Neurological: Mental Status: She is alert and oriented to person, place, and time. GCS: GCS eye subscore is 4. GCS verbal subscore is 5. GCS motor subscore is 6. Psychiatric: Speech: Speech normal. Behavior: Behavior normal. OARRS/NARxCHECK Report Received and Assessed: 04/11/2020 Date controlled substance agreement signed: 03/15/2020 Date of last drug screen: No data found Functional Assessment: No data found Assessment/Plan Problem List Items Addressed This Visit Genitourinary UTI (urinary tract infection) Relevant Medications ciprofloxacin HCl (CIPRO) 500 MG tablet phenazopyridine (PYRIDIUM) 200 MG tablet Other Visit Diagnoses Urinary frequency - Primary Relevant Medications ciprofloxacin HCl (CIPRO) 500 MG tablet Other Relevant Orders POC Urinalysis Dipstick (Completed) Urine Aerobic Culture For any new medications prescribed today, patient was educated about indications for the medication, how to take the medication and potential side effects of the medications. Gisell Desai CNP documented in this [id number] Instructions* Patient Instructions* Gisell Desai CNP - 03/15/2021 11:53 AM EST Problem List Items Addressed This Visit Endocrine Diabetes mellitus (HCC) - Primary Relevant Orders CBC and Differential Comprehensive Metabolic Panel Lipid Panel TSH with Reflex Free T4 Hemoglobin A1c Cardiovascular and Mediastinum Hypertension Relevant Orders CBC and Differential Comprehensive Metabolic Panel TSH with Reflex Free T4 Other Hyperlipidemia Relevant Medications atorvastatin (LIPITOR) 80 MG tablet Other Relevant Orders Comprehensive Metabolic Panel Lipid Panel TSH with Reflex Free T4 Vitamin D deficiency Relevant Orders Vitamin D, Total, 25-OH If any referrals were placed at the time of your visit please allow 2 weeks for processing. If you haven't heard from anyone within 2 weeks please contact my office so we can look into the status of your referral. If you were given any labs today please ensure they are completed according to the directions given. Once labs are completed please allow 1-2 weeks for us to receive the results, review them, and letyou know what steps, if any, are needed next. If you haven't heard from us after that please call to inquire. If labs were ordered to be done PRIOR to your next visit we will discuss the results at the time ofyour office visit. If any procedures or imaging studies were ordered that must be prior authorized please give us 2 weeks to get them approved. Once approved someone should call you to schedule them or give you a date and time that they were scheduled for. If you haven't heard anything within 2 weeks of the office visit please call the office so we can look into their status. Customer Service/Billing Questions: [phone] [facility] Assistance: [phone] or [phone] Financial Assistance: [phone] or [phone] documented in this [id number] History of Present illness Narrative* Gisell Desai CNP - 03/15/2021 11:48 AM EST Images from the original note were not included. Subjective Patient ID: Cat Carroll is a 85 y.o. female. Patient is here today for a routine interval visit. This is the first visit she has had at the office since her fall in December that resulted in rib fractures and fractures of the superior and inferior pubi rami. She is walking with a cane today, she states there are times she uses a walker and shedoes feel steadier with the walker She states she continues to have pain in her hip and pelvic area and pain in her right wrist/arm/shoulder. Patient is still being seen by [facility], the HOSPITALITY TEAM MEMBER Tana is managing patient's Methadone. They are seeing patient once a month at home. This is the only service she has through palliative care at this time. Leg swelling: Patient states she has had some lower extremity edema, she is wearing compression stockings which helps. Hypertension: Patient is currently on losartan 100 mg daily and metoprolol 50 mg daily. She has been checking her blood pressure at least 4-5 times a week and are consistently 120-150/80's. The following were reviewed and updated as appropriate for today's visit: allergies, current medications, past family history, past medical history, past social history, past surgical history and problem list. Patient's Medications New Prescriptions No medications on file Previous Medications ASPIRIN 81 MG EC TABLET Take 81 mg by mouth daily . CARBAMAZEPINE (TEGRETOL) 200 MG TABLET Take 1 (one) tablet (200 mg total) by mouth 3 (three) times a day . CHOLESTYRAMINE (QUESTRAN) 4 GRAM POWDER Take 1 (one) Scoopful (4 g total) by mouth daily . DIPHENHYDRAMINE-ACETAMINOPHEN (TYLENOL PM) 25-500 MG TAB Take 2 tablets by mouth nightly as needed . FLUTICASONE PROPIONATE (FLOVENT HFA) 110 MCG/ACTUATION INHALER Inhale 2 (two) puffs 2 (two) times aday Rinse mouth after each use . LOSARTAN (COZAAR) 100 MG TABLET Take 1 (one) tablet (100 mg total) by mouth daily . METHADONE (DOLOPHINE) 5 MG TABLET Take 10 mg by mouth 2 (two) times a day . METOPROLOL SUCCINATE (TOPROL-XL) 50 MG 24 HR TABLET Take 1 (one) tablet (50 mg total) by mouth at bedtime . MULTIVIT-MIN/IRON/FOLIC/LUTEIN (CENTRUM SILVER WOMEN ORAL) Take 1 tablet by mouth daily. NITROGLYCERIN (NITROSTAT) 0.[address] 1 (one) tablet (0.4 mg total) under the tongue every 5 (five) minutes as needed for chest pain , if no relief after 3 doses call 911 . OMEPRAZOLE (PRILOSEC) 40 MG CAPSULE Take 1 (one) capsule (40 mg total) by mouth daily . Modified Medications Modified Medication Previous Medication ATORVASTATIN (LIPITOR) 80 MG TABLET atorvastatin (LIPITOR) 80 MG tablet Take 1 (one) tablet (80 mg total) by mouth nightly . Take 1 (one) tablet (80 mg total) by mouth nightly . Discontinued Medications No medications on file Review of Systems Review of Systems Constitutional: Negative for activity change and fatigue. HENT: Negative for hearing loss. Eyes: Negative for visual disturbance. Respiratory: Negative for cough, chest tightness and shortness of breath. Cardiovascular: Negative for chest pain and palpitations. Genitourinary: Urinary incontinence Musculoskeletal: Positive for arthralgias, back pain, gait problem, joint swelling and myalgias. Improved with methadone Skin: Negative. Neurological: Negative for dizziness, weakness, light-headedness and headaches. Psychiatric/Behavioral: Negative for agitation and dysphoric mood. The patient is not nervous/anxious. Vitals: 03/15/21 1119 03/15/21 1127 03/15/21 1151 BP: (!) 174/92 (!) 169/80 142/80 BP Location: Left arm Left arm Left arm Patient Position: Sitting Sitting Sitting BP Cuff Size: Adult Adult Adult Pulse: 76 76 Resp: 16 Temp: 97.9 F (36.6 C) TempSrc: Temporal SpO2: 95% Weight: 61.7 kg (136 lb) Height: 5' 4 Body mass index is 23.34 kg/m . Physical Exam Physical Exam Constitutional: Appearance: She is well-developed. HENT: Right Ear: External ear normal. Left Ear: External ear normal. Nose: Nose normal. Eyes: General: Lids are normal. Conjunctiva/sclera: Conjunctivae normal. Cardiovascular: Rate and Rhythm: Normal rate and regular rhythm. Heart sounds: Normal heart sounds. No murmur heard. Pulmonary: Effort: Pulmonary effort is normal. Breath sounds: Normal breath sounds. Musculoskeletal: Cervical back: Normal range of motion. Comments: Stiff unsteady gait, using cane for ambulation. Skin: General: Skin is warm and dry. Neurological: Mental Status: She is alert and oriented to person, place, and time. GCS: GCS eye subscore is 4. GCS verbal subscore is 5. GCS motor subscore is 6. Psychiatric: Speech: Speech normal. Behavior: Behavior normal. OARRS/NARxCHECK Report Received and Assessed: 04/11/2020 Date controlled substance agreement signed: 03/15/2020 Date of last drug screen: No data found Functional Assessment: No data found Assessment/Plan Problem List Items Addressed This Visit Endocrine Diabetes mellitus (HCC) - Primary Relevant Orders CBC and Differential Comprehensive Metabolic Panel Lipid Panel TSH with Reflex Free T4 Hemoglobin A1c Cardiovascular and Mediastinum Hypertension Relevant Orders CBC and Differential Comprehensive Metabolic Panel TSH with Reflex Free T4 Other Hyperlipidemia Relevant Medications atorvastatin (LIPITOR) 80 MG tablet Other Relevant Orders Comprehensive Metabolic Panel Lipid Panel TSH with Reflex Free T4 Vitamin D deficiency Relevant Orders Vitamin D, Total, 25-OH For any new medications prescribed today, patient was educated about indications for the medication, how to take the medication and potential side effects of the medications. Gisell Desai CNP documented in this [id number] Miscellaneous Notes* Telephone Encounter - Lesley Bailey RN - 03/15/2021 9:35 AM EST RECEIVED FAX REQUEST FROM PHARMACY FOR REFILL ON CHOLESTRYRAMIN. LAST OV 01/01/21 ([facility]). NEXT OV TODAY 03/15. documented in this [id number] History of Present illness Narrative* Donna Schroeder MD - 02/12/2021 1:55 PM EST Cardiology Clinic Visit Heart & Vascular [facility] 02/12/2021 Donna Schroeder MD [address] [place] [id number] Patient: Cat Carroll Date of : 1935 (85 y.o.) Referring Provider: No ref. provider found PCP: Gisell Desai CNP Assessment & Plan Cat Carroll is a 85 y.o. woman with history of CAD/STEMI with HANNAH to the distal RCA in 08/2018, CKD, HTN, and HLD who presents to clinic for follow up. CAD/STEMI - with HANNAH - Denies angina -Continue aspirin 81 mg daily, atorvastatin 80 mg daily, metoprolol succinate 50 mg daily, Mild systolic dysfunction euvolemic on exam, last known LVEF of 45 to 50%. -Continue metoprolol succinate 50 mg daily, losartan 100 mg daily Hyperlipidemia LDL goal -Continue atorvastatin 80 mg daily Return in about 6 months (around 08/13/2021). Donna Schroeder MD [facility] Non-Invasive Cardiology [facility] Heart and Vascular Chief Complaint: Follow-up (6 mo ov no complaints today) Mak Carroll is a 85 y.o. woman with history of CAD/STEMI with HANNAH to the distal RCA in 08/2018, CKD, HTN, and HLD who presents to clinic for follow up. She previously followed with Dr. Perdomo. Reports that she has been feeling well. She denies chest pain. She denies shortness of breath. She denies lower extremity swelling, PND orthopnea. She denies palpitations. She denies lightheadedness and dizziness. She denies any episodes syncope. Tolerating DAPT without issue. Review of Systems: Constitution: Negative. HENT: Negative. Cardiovascular: As above. Respiratory: As above. Endocrine: Negative. Skin: Negative. Musculoskeletal: Negative. Gastrointestinal: Negative. Genitourinary: Negative. Neurological: Negative. Psychiatric/Behavioral: Negative. 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 Rick thompson. Dr Hinds BLADDER REPAIR 1990 CATARACT EXT/ECCE Bilateral 2011 Dr [place] CHOLECYSTECTOMY CYST REMOVAL Right 2000 cyst removal from rt breast-benign DILATION AND CURETTAGE (D AND C) 1970 x 2 EGD 01/01/2015 Dr. ZavalaNedxom-Ztnravsqs-Arcpxbw's esophagus EGD 08/2014 Dr. Vinicius D-Khshxuico-Urlmacs's esophagitis biopsies negative for dysplasia. ESOPHAGOGASTRODUODENOSCOPY 01/04/2018 Dr. Zavala -biopsies performed-Kelly's esophagitis-carcinoid tumor posterior wall duodenum FRACTURE SURGERY Right Plates and screws in rt arm after fracture. dr Dolan [facility] LEFT HEART CATH N/A 08/23/2018 Procedure: Left Heart Cath; Surgeon: Glen Fair MD; Location: [facility]; Service: Cardiovascular HYSTERECTOMY 1974 KIDNEY SURGERY 1969 had exploratory surgery d/t floating kidney Dx KNEE SURGERY Left 1997 left knee arthoscopy LUMPECTOMY Left 1989 benign ORIF HIP GAMMA NAIL Right 04/02/2020 SQUAMOUS CELL CARCINOMA EXCISION x4 TOTAL KNEE ARTHROPLASTY Left 2012 dr dolan TUMOR REMOVAL 2012 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 Family History Problem Relation Age of Onset Diabetes Mother Heart disease Mother Heart disease Father Stroke Father Diabetes Sister Dementia Sister Heart disease Brother Diabetes Brother Diabetes Maternal Uncle Bipolar disorder Daughter Diabetes Son Cancer Neg Hx Aneurysm Neg Hx Seizures Neg Hx Social History Tobacco Use Smoking Status Former Smoker Packs/day: 0.00 Types: Cigarettes Quit date: 04/03/1976 Years since quittin.8 Smokeless Tobacco Never Used Allergies: Aspirin; Bacitracin zinc-polymyxin b; Codeine; Latex, natural rubber; Egiikhkg-rtftngintqx-kvvlebafj; and Hydrocortisone HOME Medications: Current Outpatient Medications on File Prior to Visit Medication Sig aspirin 81 MG EC tablet Take 81 mg by mouth daily . atorvastatin (LIPITOR) 80 MG tablet Take 1 (one) tablet (80 mg total) by mouth nightly . Brilinta 90 mg Tab tablet TAKE 1 TABLET TWICE A DAY (Patient taking differently: 2 (two) times a day .) carBAMazepine (TEGRETOL) 200 mg tablet Take 1 (one) tablet (200 mg total) by mouth 3 (three) times a day . cholestyramine (QUESTRAN) 4 gram powder Take 1 (one) Scoopful (4 g total) by mouth daily . fluticasone propionate (FLOVENT HFA) 110 mcg/actuation inhaler Inhale 2 (two) puffs 2 (two) times aday Rinse mouth after each use . losartan (Cozaar) 100 MG tablet Take 1 (one) tablet (100 mg total) by mouth daily . methadone (DOLOPHINE) 5 MG tablet Take 5 mg by mouth 2 (two) times a day . metoprolol succinate (TOPROL-XL) 50 MG 24 hr tablet Take 1 (one) tablet (50 mg total) by mouth at bedtime . MULTIVIT-MIN/IRON/FOLIC/LUTEIN (CENTRUM SILVER WOMEN ORAL) Take 1 tablet by mouth daily. nitroGLYCERIN (NITROSTAT) 0.[address] 1 (one) tablet (0.4 mg total) under the tongue every 5 (five) minutes as needed for chest pain , if no relief after 3 doses call 911 . omeprazole (PRILOSEC) 40 MG capsule Take 1 (one) capsule (40 mg total) by mouth daily . [DISCONTINUED] loratadine (CLARITIN) 10 mg tablet Take 10 mg by mouth daily . No current facility-administered medications on file prior to visit. Physical Examination: BP (!) 151/85 (BP Location: Left arm) Pulse 73 Ht 5' 4 Wt 64.9 kg (143 lb) SpO2 98% BMI 24.55 kg/m Constitutional: Appears well-developed and well-nourished. No distress. HENT: Head: Normocephalic and atraumatic. Eyes: Conjunctivae and EOM are normal. No scleral icterus. Neck: Normal range of motion. Cardiovascular: Normal rate and regular rhythm. Exam reveals no gallop and no friction rub. No murmur heard. No JVP elevation. No LE edema. Pulmonary/Chest: Effort normal and breath sounds normal. No respiratory distress. No wheezes. No rales. Abdominal: Soft. Bowel sounds are normal. There is no abdominal tenderness. Musculoskeletal: Normal range of motion. Neurological: AOx3, moving all ext. Skin: Skin is warm and dry. No rash noted. Psychiatric: Normal mood and affect. Cardiovascular Studies: TTE 08/23/18 Conclusions: Mild segmental LV dysfunction with posterior and inferior wall motion abnormalities. Ejection fraction approximately 45 to 50%. No significant valvular heart disease identified. [facility] 09/02/18 Impressions and Recommendations: #1. Moderate LV systolic dysfunction with an estimated LV ejection fraction of 42%. 2. Normal left ventricular end-diastolic pressure 3. Segmental contraction abnormality of the left ventricle. 4. 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 5. Successful catheter-based intervention with drug-eluting stent placement in the distal right conduit, extending into the posterior AV segment, with denominational of MERLY-3 flow and 0% residual stenosis Labs: Lab Results Component Value Date GLUCOSE 114 (H) 01/16/2020 CALCIUM 8.9 01/16/2020 NA 131 (L) 01/16/2020 K 4.2 01/16/2020 CL 99 01/16/2020 BUN 16 01/16/2020 CREATININE 0.80 04/12/2020 Lab Results Component Value Date WBC 6.70 01/16/2020 HGB 12.8 01/16/2020 HCT 39.3 01/16/2020 MCV 91.0 01/16/2020 EXTMCV 90.6 06/09/2017 PLT 218 01/16/2020 RBC 4.32 01/16/2020 Lab Results Component Value Date CHOL 105 01/16/2020 LDLCALC 13 01/16/2020 TRIG 115 01/16/2020 HDL 69 01/16/2020 documented in this [id number] Instructions* Patient Instructions* Francesca Mares RN - 02/12/2021 1:41 PM EST How to contact your Care Team: Provider: Donna Schroeder MD Nurse: Francesca Mares RN In case of an emergency please call 911. REFILLS: When in need for refills please call your care team or the office at [phone]. Please include medication name, pharmacy name, and specify 30-day or 90-day supply. Please check with your pharmacy within 24 hours of request for your refill. You must follow up as directed to continue current refills. Thank you documented in this [id number] Miscellaneous Notes* Telephone Encounter - Annita Guerra MA - 01/30/2021 7:13 AM EST RECEIVED FAX FROM PHARMACY. REQUESTING REFILL ON QUEUED MEDICATION(S). LAST OV:01/01/21 NEXT OV:none scheduled documented in this [id number] Miscellaneous Notes* Telephone Encounter - Lesley Bailey RN - 01/11/2021 9:01 AM EDT RECEIVED FAXED DOCUMENTATION FROM PHARMACY. REQUESTING REFILLS FOR TOPROL AND LOSARTAN BE SENT TO [facility]. MEDICATIONS REFILLED ON 01/08 TO [facility] (OTHER PRESCRIPTIONS THROUGH [facility]). documented in this [id number] Miscellaneous Notes* Telephone Encounter - Kiara Rees MA - 01/08/2021 10:08 AM EDT Destini returned call. Relayed message. She is waiting on a call back from the [facility] for a followup. * Telephone Encounter - Kiara Rees MA - 01/08/2021 9:48 AM EDT Placed a call to Destini at [phone] to go over Gisell's response. * Telephone Encounter - Gisell Desai CNP - 01/08/2021 7:12 AM EDT Does patient have follow up with orthopaedic surgeon? They should have set this up before she left the hospital? Her pain is being managed by palliative care HOSPITALITY TEAM MEMBER, would recommend they call her with continued pain concerns. She does not need to follow up with me if she is being seen by palliative care and ortho. * Telephone Encounter - Annita Guerra MA - 01/07/2021 2:53 PM EDT Please advise * Telephone Encounter - Annita Guerra MA - 01/07/2021 2:53 PM EDT ----- Message from Elisabet Villalpando sent at 01/07/2021 12:59 PM EDT ----- Regarding: Patient Call Back Requested Contact: Patient- [phone] Patient and therapy nurse Georges- requesting clarification on weight bearing instructions for patient, and also if patient is to schedule a f/u visit with Gisell when patient is able to walk down stairs? Nurse reporting that patient is having left hip pain due to fractured pelvis. Please contact patient at [phone] Please contact nurse Georges at [phone] documented in this [id number] Miscellaneous Notes* Telephone Encounter - Lesley Bailey RN - 01/01/2021 11:25 AM EDT LAST OV TODAY. PT CALLED IN TO REQUEST REFILLS ON TEGRETOL AND PRILOSEC TO GO TO [facility]. * Telephone Encounter - Lesley Bailey RN - 01/01/2021 11:24 AM EDT ----- Message from Blayne De Jesus sent at 01/01/2021 11:16 AM EDT ----- Regarding: Rx Refill Contact: patient MEDICATION REFILL REQUEST: PCP: Gisell Desai CNP Patient called 01/01/21 and is requesting a medication refill for omeprazole (PRILOSEC) 40 MG capsule carBAMazepine (TEGRETOL) 200 mg tablet This was confirmed from the current medication list found in the patients chart. Supply Requested: # of days: 90 days Method of receiving: Send to pharmacy Last set of flowsheet rows for OARRS report: OARRS/NARxCHECK Report Received and Assessed: 04/11/2020 Date controlled substance agreement signed: 03/15/2020 Date of last drug screen: No data found Functional Assessment: No data found Will this refill be sent to the preferred pharmacy listed below? Yes Preferred pharmacies: [facility] [address] [address] Pt Call Back Number Patient call back message sent to the primary care clinical pool. Blayne De Jesus documented in this [id number] NoteSend Summary: Discharge Summary Providers: Provider RoleProvider Name PrimarySpringGisell Note Recipients: Gisell Desai APRN-[employer] - [phone] [] Discharge: Summary: Admission Date: .25-Dec-2020 14:41:00 Discharge Date: 27-Dec-2020 Attending Physician at Discharge: Juan F Lloyd Admission Reason: fall, w/ fractures, uti uncomplicated Final Discharge Diagnoses: Hyponatremia Procedures: none Condition at Discharge: Satisfactory Disposition at Discharge: Home Health Care - New Vital Signs: T PRBPSpO2 [id number]% Date/Time12/27 8: 8: 8: 8: 8:00 Range(36.7C - 37.2C ) (72 - 90 ) (18 - 18 ) (123 - 153 )/ (67 - 69 ) (92% - 94% ) Highest temp of 37.2 C was recorded at 12/26 20:35 Date: Weight/Scale Type:Height: 25-Dec-2020 22:1961.8 kg / gud896.5 cm Physical Exam: Patient seen and examined Constitutional Denies any fever, chills, headache Neuro: Alert and oriented x3, MOREIRA Resp: LS CTA bilaterally Cardiac: Regular rate rhythm ABD soft non tender, BS present Skin warm dry, bruising left arm Hospital Course: CAT CARROLL is a 85 year old Female Who presented to the emergency room after having a fall. On presentation, blood pressure 147/100, heart rate 85, respiratory rate 16, afebrile, saturation O2 96% on room air. Pertinent findings on blood work-up; hemoglobin 11.7, WBC 11.5, neutrophil shift, sodium 128, and urinalysis came back positive for nitrite and bacteria. COVID-[address] scan of the abdomen and pelvis showed an acute nondisplaced left sacral insufficiency fracture of S1. There is also bilateral sacral insufficiency fractures at S2 and S3. There is a minimally displaced fracture of the left ischiopubic junction and left iliopectineal junction with possible extension to the anterior wall of the left acetabulum. There is an acutely mildly displaced fracture of the lateral ninth rib and nondisplaced fracture of the lateral left 10th rib. Patient was given in the emergency room 1 g IV ceftriaxone and morphine and Zofran and then admitted to the medical service for further investigation management. Upon encounter, patient resting comfortably in her bed. She reports that her left side hurts especially her left arm and forearm and left wrist. She also has pain in her left hip. She said that she was going outside the driveway to get her mail and she think she tripped with her cane. She fell to the floor. She could not stand up after that by herself. Prior to the fall, she did not experience any lightheadedness or dizziness or blurry vision. After the fall, she did not pass out nor did she have any vomiting or incontinence. Denies having any current focal neurological deficits. Review of Systems: 10 systems were reviewed and were negative except for those noted in the history of present illness. 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 Right femoral intramedullary nail, appendectomy, cholecystectomy, hysterectomy, knee replacement Social history: Former smoker, no alcohol abuse Family history: Both parents had cardiovascular disease as well as the siblings Hospital Course: Patient was admitted for mechanical fall. Seen by Dr. Cabrera, orthopedics. Per his note: CT scan of the abdomen pelvis which did demonstrate ninth and 10th rib fractures there is no significant fracture in the left upper extremity at the elbow or the wrist there is a fracture of the superior and inferior pubic rami and sacral insufficiency fracture. We did have a long discussion about these fractures. They are all mild in nature but significant symptoms. These are typically treated nonoperatively with monitored or protected weightbearing usually with an assistive device and repeat x-rays over time to evaluate for any changes.-Patient can be weightbearing as tolerated but if she is painful she can limit her weightbearing-As needed pain control -Physical therapy-Patient will likely need some time in [facility] for rehabilitation. Patient has refused to go to SNF, indicates she had home health for PT OT for her last fracture and found it to be effective. She indicates she also has palliative care at home. PT has been placed on consult, patient indicating she still is going home not to a facility. Patient found to have urinary tract infection on admission, asymptomatic and treated with IV Rocephin x 3 days. No neurologic symptoms, confusion, pain, urgency or frequency on admission. Patient also found to have sodium of 128, uric acid was normal. Pa (more content not included)...[facility]10-[facility]-2021 NoteHistory of Present Illness: HPI: CAT CARROLL is a 85 year old Female Who presented to the emergency room after having a fall. On presentation, blood pressure 147/100, heart rate 85, respiratory rate 16, afebrile, saturation O2 96% on room air. Pertinent findings on blood work-up; hemoglobin 11.7, WBC 11.5, neutrophil shift, sodium 128, and urinalysis came back positive for nitrite and bacteria. COVID-[address] scan of the abdomen and pelvis showed an acute nondisplaced left sacral insufficiency fracture of S1. There is also bilateral sacral insufficiency fractures at S2 and S3. There is a minimally displaced fracture of the left ischiopubic junction and left iliopectineal junction with possible extension to the anterior wall of the left acetabulum. There is an acutely mildly displaced fracture of the lateral ninth rib and nondisplaced fracture of the lateral left 10th rib. Patient was given in the emergency room 1 g IV ceftriaxone and morphine and Zofran and then admitted to the medical service for further investigation management. Upon encounter, patient resting comfortably in her bed. She reports that her left side hurts especially her left arm and forearm and left wrist. She also has pain in her left hip. She said that she was going outside the driveway to get her mail and she think she tripped with her cane. She fell to the floor. She could not stand up after that by herself. Prior to the fall, she did not experience any lightheadedness or dizziness or blurry vision. After the fall, she did not pass out nor did she have any vomiting or incontinence. Denies having any current focal neurological deficits. Review of Systems: 10 systems were reviewed and were negative except for those noted in the history of present illness. 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 Right femoral intramedullary nail, appendectomy, cholecystectomy, hysterectomy, knee replacement Social history: Former smoker, no alcohol abuse Family history: Both parents had cardiovascular disease as well as the siblings Comorbidities: Comorbidites: Comorbid Conditionshypertension Allergies: Neosporin: Rash Latex: Rash Tape - Adhesive, Bandaids, Paper: Rash Intolerances: gabapentin: Dizziness aspirin: GI Upset codeine: GI Upset Dust: Congestion Medications Prior to Admission: Lipitor 80 mg oral tablet: 1 tab(s) orally once a day Centrum Silver oral tablet: 1 tab(s) orally once a day Flovent HFA 110 mcg/inh inhalation aerosol: 2 puff(s) inhaled 2 times a day nitroglycerin 0.4 mg sublingual tablet: 1 tab(s) sublingual every 5 minutes, As Needed omeprazole 40 mg oral delayed release capsule: 1 cap(s) orally once a day Metoprolol Tartrate 25 mg oral tablet: 1 tab(s) orally 2 times a day carBAMazepine 200 mg oral tablet: 1 tab(s) orally 3 times a day losartan 25 mg oral tablet: 1 tab(s) orally once a day Vitamin D3: 1 tab(s) orally once a day Aspirin Enteric Coated 325 mg oral delayed release tablet: 1 tab(s) orally 2 times a day x 30 days Probiotic Formula oral capsule: 1 cap(s) orally once a day Vitamin B6 100 mg oral tablet: 1 tab(s) orally once a day Vitamin B12 100 mcg oral tablet: 1 tab(s) orally once a day Melatonin: 12 milligram(s) orally once a day (at bedtime). Objective: Objective Information: T PRBPSpO2 [id number]% Date/Time12/25 22: 22: 22: 22: 22:00 Range(36.8C - 37C ) (84 - 90 ) (16 - 18 ) (127 - 165 )/ (65 - 100 ) (92% - 96% ) Highest temp of 37 C was recorded at 12/25 14:43 Pain reported at 12/25 23:14: 3 = Mild Physical Exam by System: Constitutional: awake/alert/oriented x3, not in acute distress, Eyes: PERRL, EOMI, clear sclera ENMT: normal hearing, mucous membranes moist, no pharyngeal erythema or exudates Head/Neck: neck supple, no apparent injury, no JVD, no lymphadenopathy, trachea midline Respiratory/Thorax: patent airways, clear to auscultation bilaterally, no crackles or wheezing or rhonchi Cardiovascular: Regular, rate and rhythm, no murmurs, 2+ equal pulses of the extremities Gastrointestinal: nondistended, positive bowel sounds, soft, non-tender, no rebound tenderness or guarding, no masses palpable, no organomegaly Musculoskeletal: Left forearm and left wrist wound dressings. Limited range of motion because of the pain. Mild swelling. There is limited range of motion of the left hip. No point tenderness. Extremities: no edema Neurological: intact senses, motor, response and reflexes, normal strength, babinski (more content not included)...[facility]10-01-2021 History of Present illness NarrativePatient is a pleasant 85-year-old female presenting today for follow-up pelvic fracture. She is accompanied by her daughter, Trinidad. Patient states the pain from the pelvic fracture is resolved. She denies any complaints with the pelvis. Now states she has had intermittent pain in the left shoulder since the fall in December of 2020; but she did not want to tell anyone. She states when she fell, she bruised the elbow and cut her hand. She states her pain scale in the shoulder can be an 8 out of 10. The pain radiates throughout the entire shoulder and down the bicep. She has limited range of motion and strength in the shoulder. She denies pain with straightening or bending the elbow. She has been going to occupational therapy and has been tolerating it well. She was released from OT on Thursday, but will continue with physical therapy. She was originally taking oxycodone for pain management but states she no longer needs it and has been doing well without it. She states she would like to try a corticosteroid injection for the shoulder today.[facility] [address] Work Phone: [phone]) 454-581307-22-2021 Instructions* Patient Instructions* Gisell Desai CNP - 09/27/2020 11:55 AM EDT Problem List Items Addressed This Visit Cardiovascular and Mediastinum Hypertension You are doing well on the Losartan 100 mg daily and Metoprolol 50 mg daily. No changes to medication. Stable. Other Dizziness You have already been off of the cymbalta for about one week, stay off of this medication. Also stop the Ditropan since it is not helping and can cause some dizziness. If any referrals were placed at the time of your visit please allow 2 weeks for processing. If you haven't heard from anyone within 2 weeks please contact my office so we can look into the status of your referral. If you were given any labs today please ensure they are completed according to the directions given. Once labs are completed please allow 1-2 weeks for us to receive the results, review them, and letyou know what steps, if any, are needed next. If you haven't heard from us after that please call to inquire. If labs were ordered to be done PRIOR to your next visit we will discuss the results at the time ofyour office visit. If any procedures or imaging studies were ordered that must be prior authorized please give us 2 weeks to get them approved. Once approved someone should call you to schedule them or give you a date and time that they were scheduled for. If you haven't heard anything within 2 weeks of the office visit please call the office so we can look into their status. Customer Service/Billing Questions: [phone] MyChart Assistance: [phone] or [phone] Financial Assistance: [phone] or [phone] documented in this [id number] Miscellaneous Notes* Assessment & Plan Note - Gisell Desai CNP - 09/27/2020 11:54 AM EDT Associated Problem(s): Dizziness You have already been off of the cymbalta for about one week, stay off of this medication. Also stop the Ditropan since it is not helping and can cause some dizziness. * Assessment & Plan Note - Gisell Desai CNP - 09/27/2020 11:52 AM EDT Associated Problem(s): Hypertension You are doing well on the Losartan 100 mg daily and Metoprolol 50 mg daily. No changes to medication. Stable. documented in this [id number] History of Present illness Narrative* Gisell Desai CNP - 09/27/2020 11:49 AM EDT Images from the original note were not included. Subjective Patient ID: Cat Carroll is a 85 y.o. female. Patient is here today for 1 month follow-up for dizziness and elevated blood pressure. Patient is here today with her daughter. Patient states she was having continual dizziness so she stopped taking her Cymbalta about 1 week ago and she started taking her methadone before she got out of bed about 1 week ago. She states with these medication changes all of her dizziness has resolved. She denies any withdrawal effects from coming off of the Cymbalta abruptly. She states overall she feels well. Did talk to Maggie Vila CNP through palliative care and updated her on patient's current symptoms and medication changes. Hypertension: Patient is currently on losartan 100 mg daily and metoprolol 50 mg daily. She has been checking her blood pressure at least 4-5 times a week and brought a blood pressure log with her toher visit today. Noted that blood pressures in the log were consistently 120-150/80's. The following were reviewed and updated as appropriate for today's visit: allergies, current medications, past family history, past medical history, past social history, past surgical history and problem list. Patient's Medications New Prescriptions No medications on file Previous Medications ASPIRIN 81 MG EC TABLET Take 81 mg by mouth daily . ATORVASTATIN (LIPITOR) 80 MG TABLET Take 1 (one) tablet (80 mg total) by mouth nightly . BRILINTA 90 MG TAB TABLET TAKE 1 TABLET TWICE A DAY CARBAMAZEPINE (TEGRETOL) 200 MG TABLET Take 1.5 (one and a half) tablets (300 mg total) by mouth 3 (three) times a day . CHOLESTYRAMINE (QUESTRAN) 4 GRAM POWDER Take 1 (one) Scoopful (4 g total) by mouth daily . FLUTICASONE PROPIONATE (FLOVENT HFA) 110 MCG/ACTUATION INHALER Inhale 2 (two) puffs 2 (two) times aday Rinse mouth after each use . LORATADINE (CLARITIN) 10 MG TABLET Take 10 mg by mouth daily . LOSARTAN (COZAAR) 100 MG TABLET Take 1 (one) tablet (100 mg total) by mouth daily . METHADONE (DOLOPHINE) 5 MG TABLET Take 5 mg by mouth 2 (two) times a day . METOPROLOL SUCCINATE (TOPROL-XL) 50 MG 24 HR TABLET Take 1 (one) tablet (50 mg total) by mouth at bedtime . MULTIVIT-MIN/IRON/FOLIC/LUTEIN (CENTRUM SILVER WOMEN ORAL) Take 1 tablet by mouth daily. NITROGLYCERIN (NITROSTAT) 0.[address] 1 (one) tablet (0.4 mg total) under the tongue every 5 (five) minutes as needed for chest pain , if no relief after 3 doses call 911 . OMEPRAZOLE (PRILOSEC) 40 MG CAPSULE Take 1 (one) capsule (40 mg total) by mouth daily . Modified Medications No medications on file Discontinued Medications DULOXETINE (CYMBALTA) 60 MG CAPSULE Take 1 (one) capsule (60 mg total) by mouth daily . METOPROLOL TARTRATE (LOPRESSOR) 25 MG TABLET TAKE 1 TABLET TWICE A DAY OXYBUTYNIN (DITROPAN-XL) 5 MG 24 HR TABLET Take 1 (one) tablet (5 mg total) by mouth daily . Review of Systems Review of Systems Constitutional: Negative for activity change and fatigue. HENT: Negative for hearing loss. Eyes: Negative for visual disturbance. Respiratory: Negative for cough, chest tightness and shortness of breath. Cardiovascular: Negative for chest pain and palpitations. Genitourinary: Urinary incontinence Musculoskeletal: Positive for arthralgias, back pain, gait problem, joint swelling and myalgias. Improved with methadone Skin: Negative. Neurological: Negative for dizziness, weakness, light-headedness and headaches. Psychiatric/Behavioral: Positive for dysphoric mood. Negative for agitation. Vitals: 09/27/20 1125 09/27/20 1131 BP: (!) 184/79 (!) 179/78 BP Location: Left arm Left arm Patient Position: Sitting Sitting BP Cuff Size: X-large Adult X-large Adult Pulse: 73 68 Resp: 16 Temp: 98.1 F (36.7 C) TempSrc: Temporal SpO2: 96% Weight: 63 kg (139 lb) Height: 5' 4 Body mass index is 23.86 kg/m . Physical Exam Physical Exam Constitutional: Appearance: She is well-developed. HENT: Right Ear: External ear normal. Left Ear: External ear normal. Nose: Nose normal. Eyes: General: Lids are normal. Conjunctiva/sclera: Conjunctivae normal. Cardiovascular: Rate and Rhythm: Normal rate and regular rhythm. Heart sounds: Normal heart sounds. No murmur heard. Pulmonary: Effort: Pulmonary effort is normal. Breath sounds: Normal breath sounds. Musculoskeletal: Cervical back: Normal range of motion. Comments: Stiff gait, using walker for ambulation. Skin: General: Skin is warm and dry. Neurological: Mental Status: She is alert and oriented to person, place, and time. GCS: GCS eye subscore is 4. GCS verbal subscore is 5. GCS motor subscore is 6. Psychiatric: Speech: Speech normal. Behavior: Behavior normal. OARRS/NARxCHECK Report Received and Assessed: 04/11/2020 Date controlled substance agreement signed: 03/15/2020 Date of last drug screen: No data found Functional Assessment: No data found Assessment/Plan Problem List Items Addressed This Visit Cardiovascular and Mediastinum Hypertension You are doing well on the Losartan 100 mg daily and Metoprolol 50 mg daily. No changes to medication. Stable. Other Dizziness You have already been off of the cymbalta for about one week, stay off of this medication. Also stop the Ditropan since it is not helping and can cause some dizziness. For any new medications prescribed today, patient was educated about indications for the medication, how to take the medication and potential side effects of the medications. Gisell Desai CNP documented in this [id number] Miscellaneous Notes* Telephone Encounter - Kenisha Washburn LPN - 09/13/2020 1:34 PM EDT Refill requested on pended medication. Last OV 09/03/20. Next OV 09/27/20. documented in this [id number] Miscellaneous Notes* Assessment & Plan Note - Gisell Desai CNP - 09/05/2020 6:52 AM EDT Associated Problem(s): Hypertension Keep a blood pressure log and bring to next visit to review. documented in this [id number] Instructions* Patient Instructions* Gisell Desai CNP - 09/05/2020 6:51 AM EDT Problem List Items Addressed This Visit Cardiovascular and Mediastinum Acute myocardial infarction (HCC) - Primary Relevant Medications metoprolol succinate (TOPROL-XL) 50 MG 24 hr tablet losartan (Cozaar) 100 MG tablet Hypertension Relevant Medications metoprolol succinate (TOPROL-XL) 50 MG 24 hr tablet losartan (Cozaar) 100 MG tablet If any referrals were placed at the time of your visit please allow 2 weeks for processing. If you haven't heard from anyone within 2 weeks please contact my office so we can look into the status of your referral. If you were given any labs today please ensure they are completed according to the directions given. Once labs are completed please allow 1-2 weeks for us to receive the results, review them, and letyou know what steps, if any, are needed next. If you haven't heard from us after that please call to inquire. If labs were ordered to be done PRIOR to your next visit we will discuss the results at the time ofyour office visit. If any procedures or imaging studies were ordered that must be prior authorized please give us 2 weeks to get them approved. Once approved someone should call you to schedule them or give you a date and time that they were scheduled for. If you haven't heard anything within 2 weeks of the office visit please call the office so we can look into their status. Customer Service/Billing Questions: [phone] [facility] Assistance: [phone] or [phone] Financial Assistance: [phone] or [phone] documented in this [id number] History of Present illness Narrative* Gisell Desai CNP - 09/05/2020 6:49 AM EDT Telephone Visit Via Phone Call [facility] [address] [facility] [address] [facility] [id number] Telephone Visit [facility] 09/03/2020 Gisell Desai CNP Provider Location: [address] [place] [address] Patient Location [employer] Operator: None Patient Location: Patient's Home Patient: Cat Carroll Date of : 1935 (85 y.o. female) PCP: Gisell Desai CNP I discussed risks, benefits and alternatives of a telephone visit telemedicine consultation with the patient (and any accompanying persons) including the risks that the patient's personal health details and medical records will be discussed over real-time, synchronous, interactive audio technology,the visit will not be recorded without the express consent of both the provider and the patient, and that there are inherent diagnostic limitations compared to [id number] evaluations. We elected toproceed with the telephone visit telemedicine consultation. Patient called in today for concerns with elevated blood pressure. Patient is currently on hosp[facility] through [facility] and Maggie Vila nurse practitioner recommended she call the office. Patient states she has been very dizzy in the morning and it takes greater than 30 minutes to get up off of her bed in the morning due to the dizziness. She has been checking her blood pressure 3 times a day and it has been consistently 180s over 90s. Patient is currently taking losartan 50 mg daily and Lopressor 25 mg twice daily. She does not feel like these medications are helping with her blood pressure. Patient is also prescribed methadone 5 mg twice daily through hospice. Patient states she has noticed increased leg swelling but has not been wearing compression stockings. The following portions of the patient's history were reviewed and updated as appropriate: allergies, current medications, past family history, past medical history, past social history, past surgicalhistory, and problem list. Review of Systems Constitutional: Negative for activity change and fatigue. HENT: Negative for hearing loss. Eyes: Negative for visual disturbance. Respiratory: Negative for cough, chest tightness and shortness of breath. Cardiovascular: Negative for chest pain and palpitations. Genitourinary: Urinary incontinence Musculoskeletal: Positive for arthralgias, back pain, gait problem, joint swelling and myalgias. Skin: Negative. Neurological: Positive for dizziness. Negative for weakness, light-headedness and headaches. Psychiatric/Behavioral: Positive for dysphoric mood. Negative for agitation. Patient's Medications New Prescriptions METOPROLOL SUCCINATE (TOPROL-XL) 50 MG 24 HR TABLET Take 1 (one) tablet (50 mg total) by mouth at bedtime . Previous Medications ASPIRIN 81 MG EC TABLET Take 81 mg by mouth daily . ATORVASTATIN (LIPITOR) 80 MG TABLET Take 1 (one) tablet (80 mg total) by mouth nightly . BRILINTA 90 MG TAB TABLET TAKE 1 TABLET TWICE A DAY CARBAMAZEPINE (TEGRETOL) 200 MG TABLET Take 1.5 (one and a half) tablets (300 mg total) by mouth 3 (three) times a day . CHOLESTYRAMINE (QUESTRAN) 4 GRAM POWDER Take 1 (one) Scoopful (4 g total) by mouth daily . DULOXETINE (CYMBALTA) 60 MG CAPSULE Take 1 (one) capsule (60 mg total) by mouth daily . FLUTICASONE PROPIONATE (FLOVENT HFA) 110 MCG/ACTUATION INHALER Inhale 2 (two) puffs 2 (two) times aday Rinse mouth after each use . LORATADINE (CLARITIN) 10 MG TABLET Take 10 mg by mouth daily . METHADONE (DOLOPHINE) 5 MG TABLET Take 5 mg by mouth 2 (two) times a day . METOPROLOL TARTRATE (LOPRESSOR) 25 MG TABLET TAKE 1 TABLET TWICE A DAY MULTIVIT-MIN/IRON/FOLIC/LUTEIN (CENTRUM SILVER WOMEN ORAL) Take 1 tablet by mouth daily. NITROGLYCERIN (NITROSTAT) 0.[address] 1 (one) tablet (0.4 mg total) under the tongue every 5 (five) minutes as needed for chest pain , if no relief after 3 doses call 911 . OMEPRAZOLE (PRILOSEC) 40 MG CAPSULE Take 1 (one) capsule (40 mg total) by mouth daily . OXYBUTYNIN (DITROPAN-XL) 5 MG 24 HR TABLET Take 1 (one) tablet (5 mg total) by mouth daily . Modified Medications Modified Medication Previous Medication LOSARTAN (COZAAR) 100 MG TABLET losartan (Cozaar) 50 MG tablet Take 1 (one) tablet (100 mg total) by mouth daily . Take 1 (one) tablet (50 mg total) by mouth daily . Discontinued Medications No medications on file Assessment/Plan: Problem List Items Addressed This Visit Cardiovascular and Mediastinum Acute myocardial infarction (HCC) Relevant Medications metoprolol succinate (TOPROL-XL) 50 MG 24 hr tablet losartan (Cozaar) 100 MG tablet Hypertension - Primary Keep a blood pressure log and bring to next visit to review. Relevant Medications metoprolol succinate (TOPROL-XL) 50 MG 24 hr tablet losartan (Cozaar) 100 MG tablet I have spent 12 minutes with the patient reviewing the HPI and Plan of Care. documented in this [id number] Miscellaneous Notes* Assessment & Plan Note - Tae Robertson MD - 08/14/2020 10:46 AM EDT Associated Problem(s): Hypertension Her initial blood pressure this morning was 181/90 but this was in the setting of severe pain. WhenI called her, her blood pressure had come down to 135/71. Her medication is being adjusted by primary care. I would leave her on her current medications presently. * Assessment & Plan Note - Tae Robertson MD - 08/14/2020 10:46 AM EDT Associated Problem(s): Hyperlipidemia Her lipids are followed through primary care. She remains on high intensity statin therapy. * Assessment & Plan Note - Tae Robertson MD - 08/14/2020 10:45 AM EDT Associated Problem(s): Degenerative disc disease, lumbar She is experiencing chronic severe pain. It is really her only complaint at this point. * Assessment & Plan Note - Tae Robertson MD - 08/14/2020 10:45 AM EDT Associated Problem(s): Chronic kidney disease (CKD), stage III (moderate) Her last blood work showed essentially normal renal function. * Assessment & Plan Note - Tae Robertson MD - 08/14/2020 10:44 AM EDT Associated Problem(s): CAD (coronary artery disease) The patient denies any anginal type chest discomfort. Continue dual antiplatelet therapy. Obviouslyexercise is difficult for her secondary to back pain. documented in this [id number] History of Present illness Narrative* Tae Robertson MD - 08/14/2020 10:41 AM EDT OFFICE CONSULTATION NOTE [facility] [address] [facility] [address] [facility] [id number] Physicians: Gisell Desai, RAYMUNDO Subjective: Cat Carroll is a 85 y.o. female seen in the office today for Follow-up (6mo. pt c/o uncontrolled HTN- losartan added last OV ) . HPI: This was a telephone visit. Verbal consent was obtained for it. I spent 5 minutes on the phone withthe patient. The patient is a pleasant 85-year-old female with a history of coronary artery disease. She presented from outside hospital in August 2018 with inferior STEMI. She was found to have acute thrombotic occlusion of the distal right coronary artery and received thrombectomy with drug-eluting stent placement to the distal RCA and PDA. Her EF was moderately impaired at the time. Additional history includes Kelly's esophagus, benign carcinoid tumor of the duodenum, squamous cell skin cancer, mild chronic kidney disease, osteoporosis, macular degeneration, hypertension, GERD, and fibromyalgia. She also has a history of trigeminal neuralgia. Ms. Carroll continues to experience severe back pain. That is her chief complaint. She denies any anginal type chest discomfort. She denies any orthopnea, paroxysmal nocturnal dyspnea, syncope, or near syncope. Her activity is extremely limited by her back pain. She has had issues with labile hypert ension but it appears that her blood pressure is only exceedingly high when she is in a great deal of pain. Her blood pressure was extremely high this morning but when I called, it had come down nicely. Assessment & Plan: CAD (coronary artery disease) The patient denies any anginal type chest discomfort. Continue dual antiplatelet therapy. Obviouslyexercise is difficult for her secondary to back pain. Chronic kidney disease (CKD), stage III (moderate) Her last blood work showed essentially normal renal function. Degenerative disc disease, lumbar She is experiencing chronic severe pain. It is really her only complaint at this point. Hyperlipidemia Her lipids are followed through primary care. She remains on high intensity statin therapy. Hypertension Her initial blood pressure this morning was 181/90 but this was in the setting of severe pain. WhenI called her, her blood pressure had come down to 135/71. Her medication is being adjusted by primary care. I would leave her on her current medications presently. Follow Up Ordered: Return in about 6 months (around 02/13/2021). 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 prior biopsies no dysplasia last biopsies 08/2014 Benign carcinoid tumor of the duodenum 2014 Cancer (HCC) skin cancer-squamous cells removed Chronic kidney disease (CKD), stage III (moderate) 09/12/2016 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 Rick thompson. Dr iHnds BLADDER REPAIR 1989 CATARACT EXT/ECCE Bilateral 2011 Dr [place] CHOLECYSTECTOMY CYST REMOVAL Right 1999 cyst removal from rt breast-benign DILATION AND CURETTAGE (D AND C) 1970 x 2 EGD 01/01/2015 Dr. AlemanLbpszj-Cyxmihapy-Yclawkj's esophagus EGD 08/2014 Dr. Vinicius Pruett-Barrett's esophagitis biopsies negative for dysplasia. ESOPHAGOGASTRODUODENOSCOPY 01/04/2018 Dr. Zavala -biopsies performed-Kelly's esophagitis-carcinoid tumor posterior wall duodenum FRACTURE SURGERY Right Plates and screws in rt arm after fracture. dr Dolan LEFT HEART CATH N/A 08/23/2018 Procedure: Left Heart Cath; Surgeon: Glen Fair MD; Location: [facility]; Service: Cardiovascular HYSTERECTOMY 1975 KIDNEY SURGERY 1969 had exploratory surgery d/t floating kidney Dx KNEE SURGERY Left 1997 left knee arthoscopy LUMPECTOMY Left 1989 benign ORIF HIP GAMMA NAIL Right 04/02/2020 SQUAMOUS CELL CARCINOMA EXCISION x4 TOTAL KNEE ARTHROPLASTY Left 2012 dr dolan TUMOR REMOVAL 2011 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 Family History Problem Relation Age of Onset Diabetes Mother Heart disease Mother Heart disease Father Stroke Father Diabetes Sister Dementia Sister Heart disease Brother Diabetes Brother Diabetes Maternal Uncle Bipolar disorder Daughter Diabetes Son Cancer Neg Hx Aneurysm Neg Hx Seizures Neg Hx Social History Tobacco Use Smoking status: Former Smoker Packs/day: 0.00 Types: Cigarettes Quit date: 04/03/1976 Years since quittin.3 Smokeless tobacco: Never Used Vaping Use Vaping Use: Never used Substance Use Topics Alcohol use: No Drug use: No Current Outpatient Medications Medication Sig Dispense Refill aspirin 81 MG EC tablet Take 81 mg by mouth daily . atorvastatin (LIPITOR) 80 MG tablet Take 1 (one) tablet (80 mg total) by mouth nightly . 90 tablet 3 Brilinta 90 mg Tab tablet TAKE 1 TABLET TWICE A DAY 180 tablet 3 carBAMazepine (TEGRETOL) 200 mg tablet Take 1.5 (one and a half) tablets (300 mg total) by mouth 3 (three) times a day . 135 tablet 0 cholestyramine (QUESTRAN) 4 gram powder Take 1 (one) Scoopful (4 g total) by mouth daily . 756 g 1 DULoxetine (CYMBALTA) 60 MG capsule Take 1 (one) capsule (60 mg total) by mouth daily . 90 capsule 3 fluticasone propionate (FLOVENT HFA) 110 mcg/actuation inhaler Inhale 2 (two) puffs 2 (two) times aday Rinse mouth after each use . 3 Inhaler 3 loratadine (CLARITIN) 10 mg tablet Take 10 mg by mouth daily . losartan (Cozaar) 50 MG tablet Take 1 (one) tablet (50 mg total) by mouth daily . 90 tablet 3 metoprolol tartrate (LOPRESSOR) 25 MG tablet TAKE 1 TABLET TWICE A DAY 180 tablet 3 MULTIVIT-MIN/IRON/FOLIC/LUTEIN (CENTRUM SILVER WOMEN ORAL) Take 1 tablet by mouth daily. nitroGLYCERIN (NITROSTAT) 0.[address] 1 (one) tablet (0.4 mg total) under the tongue every 5 (five) minutes as needed for chest pain , if no relief after 3 doses call 911 . 25 tablet 5 omeprazole (PRILOSEC) 40 MG capsule Take 1 (one) capsule (40 mg total) by mouth daily . 90 capsule 3 oxybutynin (DITROPAN-XL) 5 MG 24 hr tablet Take 1 (one) tablet (5 mg total) by mouth daily . 90 tablet 3 No current facility-administered medications for this visit. Allergies Allergen Reactions Aspirin GI Intolerance Indigestion Bacitracin Zinc-Polymyxin B Codeine Unknown Latex, Natural Rubber Unknown Qwnuelni-Ibhagapdlwi-Suewnemqi Hydrocortisone Rash Review of Systems Constitutional: Negative for diaphoresis, malaise/fatigue, weight gain and weight loss. HENT: Negative for hearing loss, nosebleeds and tinnitus. Eyes: Negative for blurred vision and visual disturbance. Cardiovascular: Negative for chest pain, claudication, cyanosis, dyspnea on exertion, irregular heartbeat, leg swelling, near-syncope, orthopnea, palpitations, paroxysmal nocturnal dyspnea and syncope. Respiratory: Negative for hemoptysis, shortness of breath and snoring. Endocrine: Negative for cold intolerance and heat intolerance. Hematologic/Lymphatic: Does not bruise/bleed easily. Skin: Negative for flushing, poor wound healing and rash. Musculoskeletal: Positive for arthritis, back pain, joint pain and myalgias. Negative for muscle weakness. Gastrointestinal: Negative for abdominal pain, change in bowel habit, melena, nausea and vomiting. Genitourinary: Negative for decreased libido and hematuria. Neurological: Positive for paresthesias. Negative for loss of balance and numbness. Psychiatric/Behavioral: Negative for memory loss. The patient is not nervous/anxious. Overview of Problems Addressed: Problem Degenerative Disc Disease, Lumbar Cad (Coronary Artery Disease) At that time he found acute thrombotic occlusion of the distal RCA and he placed a drug-eluting stent into the RCA and to the post AV segment. LAD had 25 to 50%. He used a 2.5 x 38 mm Synergy and a 2.75 x 20. Ejection fraction was 42% Hypertension Hyperlipidemia Chronic Kidney Disease (Ckd), Stage III (Moderate) EGFR 43 Objective: Physical Exam Vitals: Vitals: 08/14/20 1015 BP: (!) 181/90 Weight: 64.4 kg (142 lb) No orders of the defined types were placed in this encounter. Thank you for allowing me to assist you in the cardiovascular care of this patient. Please don't hesitate to contact me if you have any questions regarding these thoughts. Tae Robertson MD documented in this [id number] Instructions* Patient Instructions* Danielle Rabago RN - 08/14/2020 10:12 AM EDT .How to contact your Care Team: Provider: Tae Robertson MD [facility] Nurse: Danielle Rabago RN REFILLS: When in need for refills please call your care team or the office at [phone]. Please include medication name, pharmacy name, and specify 30-day or 90-day supply. Please check with your pharmacy within 24 hours of request for your refill. You must follow up as directed to continue current refills. Thank you! documented in this [id number] Evaluation note* Diagnosis Coronary artery disease 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 Stage 3 chronic kidney disease, unspecified whether stage 3a or 3b CKD Degenerative disc disease, lumbar Mixed hyperlipidemia Essential hypertension Unspecified essential hypertension documented in this encounter [id number] History of Present illness Narrative* Autumn Mattson MA - 07/26/2020 7:27 AM EDT Faxed order,DL,insurance,recent ov note. They will contact patient.More updates can be found under referral tab. * Gisell Desai CNP - 07/25/2020 2:26 PM EDT Images from the original note were not included. Subjective Patient ID: Cat Carroll is a 85 y.o. female. Patient is here today for a routine interval visit. Left hip pain: Patient has struggled with left hip pain for the past 6 months. She has had years ofchronic low back pain but this has not been bothering her, she states the hip pain is much worse. She is being followed by Dr. Rick Maloney in [place], he did her right hip ORIF 03/2020 after a fall. She states her right hip is not causing any pain but the left hip is causing serious pain. Patient was seen by Dr. Silva pain management back in 2013 for low back pain. After her right ORIF she went back to Dr. Silva and he decided he was not going to do anything until after patient finished home health PHYSICAL THERAPY. Dr. Silva wants patient to have injections into her low back again but patient is not sure she wants to go this route. They also talked about surgery on her low back but she is a poor surgical candidate. She states she was given Vicodin and Percocet after surgery and nothing has helped with left hip pain. She is currently using Vasopharm. She has also been on Tramadol in the past with no relief. She is currently taking Tylenol prn and it is not helping. She can not take NSAIDS because she is on a blood thinner. MRI impression: 1. Dextroscoliosis measures 20 degrees. Mild retrolisthesis at L4-5 measures 2 mm. 2. There are postoperative changes at L5-S1 from previous posterior lumbar interbody fusion and fixation. Severe degenerative disc disease with severe disc space narrowing at this level. No spinal stenosis. There is severe right foraminal narrowing. 3. At L2-3, there is advanced degenerative disc disease with a central disc extrusion migrating above the level of the disc space. The disc extrusion results in severe spinal canal stenosis with severe effacement of the thecal sac. Patient is at the visit today with her daughter. Talked at length about pain control options. Did talk at length about palliative care and this may be an option for better pain control at home. Patient is not a good candidate for surgical procedures, pain medication prescribed in outpatient settinghas not been effective, she is unable to take NSAIDs, and physical therapy is not helping. Pain is dictating her entire quality of life and has decreased her ability to perform simple ADLs. Patient would like palliative care to come to the house to talk about what services they offer and how it maybenefit her. HTN: Patient has noted at home her blood pressure has been running 160-170's/80-90's. She denies any chest pain, SOB, palpitations, edema to legs/ankles, headaches, or nosebleeds. Patient is currently on losartan 25 mg daily. She tolerates this medication with no side effects or issues. Patient is willing to increase this medication to get better control of blood pressure. The following were reviewed and updated as appropriate for today's visit: allergies, current medications, past family history, past medical history, past social history, past surgical history and problem list. Patient's Medications New Prescriptions No medications on file Previous Medications ASPIRIN 81 MG EC TABLET Take 81 mg by mouth daily . ATORVASTATIN (LIPITOR) 80 MG TABLET Take 1 (one) tablet (80 mg total) by mouth nightly . CARBAMAZEPINE (TEGRETOL XR) 100 MG 12 HR TABLET Take 1 (one) tablet (100 mg total) by mouth 2 (two)times a day May increase with 200 mg twice a day after a week if tolerated. . CARBAMAZEPINE (TEGRETOL) 200 MG TABLET Take 1.5 (one and a half) tablets (300 mg total) by mouth 3 (three) times a day . CHOLESTYRAMINE (QUESTRAN) 4 GRAM POWDER Take 1 (one) Scoopful (4 g total) by mouth daily . DULOXETINE (CYMBALTA) 60 MG CAPSULE Take 1 (one) capsule (60 mg total) by mouth daily . FLUTICASONE PROPIONATE (FLOVENT HFA) 110 MCG/ACTUATION INHALER Inhale 2 (two) puffs 2 (two) times aday Rinse mouth after each use . LORATADINE (CLARITIN) 10 MG TABLET Take 10 mg by mouth daily . METOPROLOL TARTRATE (LOPRESSOR) 25 MG TABLET TAKE 1 TABLET TWICE A DAY MULTIVIT-MIN/IRON/FOLIC/LUTEIN (CENTRUM SILVER WOMEN ORAL) Take 1 tablet by mouth daily. NITROGLYCERIN (NITROSTAT) 0.[address] 1 (one) tablet (0.4 mg total) under the tongue every 5 (five) minutes as needed for chest pain , if no relief after 3 doses call 911 . OMEPRAZOLE (PRILOSEC) 40 MG CAPSULE Take 1 (one) capsule (40 mg total) by mouth daily . OXYBUTYNIN (DITROPAN-XL) 5 MG 24 HR TABLET Take 1 (one) tablet (5 mg total) by mouth daily . TICAGRELOR (BRILINTA) 90 MG TAB TABLET Take 1 (one) tablet (90 mg total) by mouth 2 (two) times a day . Modified Medications Modified Medication Previous Medication LOSARTAN (COZAAR) 50 MG TABLET losartan (Cozaar) 25 MG tablet Take 1 (one) tablet (50 mg total) by mouth daily . Take 1 (one) tablet (25 mg total) by mouth daily. Discontinued Medications OXYCODONE-ACETAMINOPHEN (PERCOCET) 5-325 MG PER TABLET Take 1 tablet by mouth every 4 to 6 hours asneeded FOR PAIN . Review of Systems Review of Systems Constitutional: Negative for activity change and fatigue. HENT: Negative for hearing loss. Eyes: Negative for visual disturbance. Respiratory: Negative for cough, chest tightness and shortness of breath. Cardiovascular: Negative for chest pain and palpitations. Genitourinary: Urinary incontinence Musculoskeletal: Positive for arthralgias, back pain, gait problem, joint swelling and myalgias. Skin: Negative. Neurological: Negative for dizziness, weakness, light-headedness and headaches. Psychiatric/Behavioral: Positive for dysphoric mood. Negative for agitation. Vitals: 07/25/20 1350 07/25/20 1356 BP: (!) 204/101 (!) 193/96 BP Location: Left arm Left arm Patient Position: Sitting Sitting BP Cuff Size: Adult Adult Pulse: 82 77 Resp: 16 Temp: 98.1 F (36.7 C) TempSrc: Temporal SpO2: 97% Weight: 62.1 kg (137 lb) Height: 5' 4 Body mass index is 23.52 kg/m . Physical Exam Physical Exam Constitutional: Appearance: She is well-developed. HENT: Right Ear: External ear normal. Left Ear: External ear normal. Nose: Nose normal. Eyes: General: Lids are normal. Conjunctiva/sclera: Conjunctivae normal. Cardiovascular: Rate and Rhythm: Normal rate and regular rhythm. Heart sounds: Normal heart sounds. No murmur heard. Pulmonary: Effort: Pulmonary effort is normal. Breath sounds: Normal breath sounds. Musculoskeletal: Cervical back: Normal range of motion. Comments: Stiff gait, using walker for ambulation. Skin: General: Skin is warm and dry. Neurological: Mental Status: She is alert and oriented to person, place, and time. GCS: GCS eye subscore is 4. GCS verbal subscore is 5. GCS motor subscore is 6. Psychiatric: Speech: Speech normal. Behavior: Behavior normal. OARRS/NARxCHECK Report Received and Assessed: 04/11/2020 Date controlled substance agreement signed: 03/15/2020 Date of last drug screen: No data found Functional Assessment: No data found Assessment/Plan Problem List Items Addressed This Visit Respiratory Chronic bronchitis (HCC) Relevant Orders Ambulatory referral to Palliative Care Cardiovascular and Mediastinum Hypertension - Primary I am going to increase your Losartan (cozaar) to 50 mg a day. Check your BP and if it is consistently above 160/90 let me know and I will increase again. Relevant Medications losartan (Cozaar) 50 MG tablet Other Visit Diagnoses Uncontrolled pain Relevant Orders Ambulatory referral to Palliative Care For any new medications prescribed today, patient was educated about indications for the medication, how to take the medication and potential side effects of the medications. Gisell Desai CNP More than 30 minutes total spent with patient, > 50% spent counseling and coordinating care regarding uncontrolled pain and plan of care. documented in this [id number] Instructions* Patient Instructions* Gisell Desai CNP - 07/25/2020 2:51 PM EDT Problem List Items Addressed This Visit Respiratory Chronic bronchitis (HCC) Relevant Orders Ambulatory referral to Palliative Care Cardiovascular and Mediastinum Hypertension - Primary I am going to increase your Losartan (cozaar) to 50 mg a day. Check your BP and if it is consistently above 160/90 let me know and I will increase again. Relevant Medications losartan (Cozaar) 50 MG tablet Other Visit Diagnoses Uncontrolled pain Relevant Orders Ambulatory referral to Palliative Care If any referrals were placed at the time of your visit please allow 2 weeks for processing. If you haven't heard from anyone within 2 weeks please contact my office so we can look into the status of your referral. If you were given any labs today please ensure they are completed according to the directions given. Once labs are completed please allow 1-2 weeks for us to receive the results, review them, and letyou know what steps, if any, are needed next. If you haven't heard from us after that please call to inquire. If labs were ordered to be done PRIOR to your next visit we will discuss the results at the time ofyour office visit. If any procedures or imaging studies were ordered that must be prior authorized please give us 2 weeks to get them approved. Once approved someone should call you to schedule them or give you a date and time that they were scheduled for. If you haven't heard anything within 2 weeks of the office visit please call the office so we can look into their status. Customer Service/Billing Questions: [phone] [facility] Assistance: [phone] or [phone] Financial Assistance: [phone] or [phone] documented in this [id number] Miscellaneous Notes* Assessment & Plan Note - Gisell Desai CNP - 07/25/2020 2:49 PM EDT Associated Problem(s): Hypertension I am going to increase your Losartan (cozaar) to 50 mg a day. Check your BP and if it is consistently above 160/90 let me know and I will increase again. documented in this [id number] History of Present illness Narrative* Gisell Desai CNP - 07/25/2020 2:26 PM EDT Images from the original note were not included. Subjective Patient ID: Cat Carroll is a 85 y.o. female. Patient is here today for a routine interval visit. Left hip pain: Patient has struggled with left hip pain for the past 6 months. She has had years ofchronic low back pain but this has not been bothering her, she states the hip pain is much worse. She is being followed by Dr. Rick lynch through [facility] in [place], he did her right hip ORIF 03/2020 after a fall. She states her right hip is not causing any pain but the left hip is causing serious pain. Patient was seen by Dr. Silva pain management back in 2013 for low back pain. After her right ORIF she went back to Dr. Silva and he decided he was not going to do anything until after patient finished home health PHYSICAL THERAPY. Dr. Silva wants patient to have injections into her low back again but patient is not sure she wants to go this route. They also talked about surgery on her low back but she is a poor surgical candidate. She states she was given Vicodin and Percocet after surgery and nothing has helped with left hip pain. She is currently using Vasopharm. She has also been on Tramadol in the past with no relief. She is currently taking Tylenol prn and it is not helping. She can not take NSAIDS because she is on a blood thinner. MRI impression: 1. Dextroscoliosis measures 20 degrees. Mild retrolisthesis at L4-5 measures 2 mm. 2. There are postoperative changes at L5-S1 from previous posterior lumbar interbody fusion and fixation. Severe degenerative disc disease with severe disc space narrowing at this level. No spinal stenosis. There is severe right foraminal narrowing. 3. At L2-3, there is advanced degenerative disc disease with a central disc extrusion migrating above the level of the disc space. The disc extrusion results in severe spinal canal stenosis with severe effacement of the thecal sac. Patient is at the visit today with her daughter. Talked at length about pain control options. Did talk at length about palliative care and this may be an option for better pain control at home. Patient is not a good candidate for surgical procedures, pain medication prescribed in outpatient settinghas not been effective, she is unable to take NSAIDs, and physical therapy is not helping. Pain is dictating her entire quality of life and has decreased her ability to perform simple ADLs. Patient would like palliative care to come to the house to talk about what services they offer and how it maybenefit her. HTN: Patient has noted at home her blood pressure has been running 160-170's/80-90's. She denies any chest pain, SOB, palpitations, edema to legs/ankles, headaches, or nosebleeds. Patient is currently on losartan 25 mg daily. She tolerates this medication with no side effects or issues. Patient is willing to increase this medication to get better control of blood pressure. The following were reviewed and updated as appropriate for today's visit: allergies, current medications, past family history, past medical history, past social history, past surgical history and problem list. Patient's Medications New Prescriptions No medications on file Previous Medications ASPIRIN 81 MG EC TABLET Take 81 mg by mouth daily . ATORVASTATIN (LIPITOR) 80 MG TABLET Take 1 (one) tablet (80 mg total) by mouth nightly . CARBAMAZEPINE (TEGRETOL XR) 100 MG 12 HR TABLET Take 1 (one) tablet (100 mg total) by mouth 2 (two)times a day May increase with 200 mg twice a day after a week if tolerated. . CARBAMAZEPINE (TEGRETOL) 200 MG TABLET Take 1.5 (one and a half) tablets (300 mg total) by mouth 3 (three) times a day . CHOLESTYRAMINE (QUESTRAN) 4 GRAM POWDER Take 1 (one) Scoopful (4 g total) by mouth daily . DULOXETINE (CYMBALTA) 60 MG CAPSULE Take 1 (one) capsule (60 mg total) by mouth daily . FLUTICASONE PROPIONATE (FLOVENT HFA) 110 MCG/ACTUATION INHALER Inhale 2 (two) puffs 2 (two) times aday Rinse mouth after each use . LORATADINE (CLARITIN) 10 MG TABLET Take 10 mg by mouth daily . METOPROLOL TARTRATE (LOPRESSOR) 25 MG TABLET TAKE 1 TABLET TWICE A DAY MULTIVIT-MIN/IRON/FOLIC/LUTEIN (CENTRUM SILVER WOMEN ORAL) Take 1 tablet by mouth daily. NITROGLYCERIN (NITROSTAT) 0.[address] 1 (one) tablet (0.4 mg total) under the tongue every 5 (five) minutes as needed for chest pain , if no relief after 3 doses call 911 . OMEPRAZOLE (PRILOSEC) 40 MG CAPSULE Take 1 (one) capsule (40 mg total) by mouth daily . OXYBUTYNIN (DITROPAN-XL) 5 MG 24 HR TABLET Take 1 (one) tablet (5 mg total) by mouth daily . TICAGRELOR (BRILINTA) 90 MG TAB TABLET Take 1 (one) tablet (90 mg total) by mouth 2 (two) times a day . Modified Medications Modified Medication Previous Medication LOSARTAN (COZAAR) 50 MG TABLET losartan (Cozaar) 25 MG tablet Take 1 (one) tablet (50 mg total) by mouth daily . Take 1 (one) tablet (25 mg total) by mouth daily. Discontinued Medications OXYCODONE-ACETAMINOPHEN (PERCOCET) 5-325 MG PER TABLET Take 1 tablet by mouth every 4 to 6 hours asneeded FOR PAIN . Review of Systems Review of Systems Constitutional: Negative for activity change and fatigue. HENT: Negative for hearing loss. Eyes: Negative for visual disturbance. Respiratory: Negative for cough, chest tightness and shortness of breath. Cardiovascular: Negative for chest pain and palpitations. Genitourinary: Urinary incontinence Musculoskeletal: Positive for arthralgias, back pain, gait problem, joint swelling and myalgias. Skin: Negative. Neurological: Negative for dizziness, weakness, light-headedness and headaches. Psychiatric/Behavioral: Positive for dysphoric mood. Negative for agitation. Vitals: 07/25/20 1350 07/25/20 1356 BP: (!) 204/101 (!) 193/96 BP Location: Left arm Left arm Patient Position: Sitting Sitting BP Cuff Size: Adult Adult Pulse: 82 77 Resp: 16 Temp: 98.1 F (36.7 C) TempSrc: Temporal SpO2: 97% Weight: 62.1 kg (137 lb) Height: 5' 4 Body mass index is 23.52 kg/m . Physical Exam Physical Exam Constitutional: Appearance: She is well-developed. HENT: Right Ear: External ear normal. Left Ear: External ear normal. Nose: Nose normal. Eyes: General: Lids are normal. Conjunctiva/sclera: Conjunctivae normal. Cardiovascular: Rate and Rhythm: Normal rate and regular rhythm. Heart sounds: Normal heart sounds. No murmur heard. Pulmonary: Effort: Pulmonary effort is normal. Breath sounds: Normal breath sounds. Musculoskeletal: Cervical back: Normal range of motion. Comments: Stiff gait, using walker for ambulation. Skin: General: Skin is warm and dry. Neurological: Mental Status: She is alert and oriented to person, place, and time. GCS: GCS eye subscore is 4. GCS verbal subscore is 5. GCS motor subscore is 6. Psychiatric: Speech: Speech normal. Behavior: Behavior normal. OARRS/NARxCHECK Report Received and Assessed: 04/11/2020 Date controlled substance agreement signed: 03/15/2020 Date of last drug screen: No data found Functional Assessment: No data found Assessment/Plan Problem List Items Addressed This Visit Respiratory Chronic bronchitis (HCC) Relevant Orders Ambulatory referral to Palliative Care Cardiovascular and Mediastinum Hypertension - Primary I am going to increase your Losartan (cozaar) to 50 mg a day. Check your BP and if it is consistently above 160/90 let me know and I will increase again. Relevant Medications losartan (Cozaar) 50 MG tablet Other Visit Diagnoses Uncontrolled pain Relevant Orders Ambulatory referral to Palliative Care For any new medications prescribed today, patient was educated about indications for the medication, how to take the medication and potential side effects of the medications. Gisell Desai CNP More than 30 minutes total spent with patient, > 50% spent counseling and coordinating care regarding uncontrolled pain and plan of care. documented in this [id number] NoteSend Summary: Discharge Summary Providers: Provider RoleProvider Name AttendingTLion cardona Note Recipients: Gisell Desai APRNRAYMUNDO - [phone] [] Discharge: Summary: Admission Date: .02-Apr-2020 15:34:00 Discharge Date: 07-Apr-2020 Attending Physician at Discharge: Lion Paulson Admission Reason: Fall at home Final Discharge Diagnoses: Intertrochanteric fracture of right femur, Hyponatremia Procedures: Date: 04-Apr-2020 13:57:00 Procedure Name: 1. R SHORT GAMMA NAIL Orthopedic consultation Condition at Discharge: Satisfactory Disposition at Discharge: Home Health Care - New Vital Signs: T PRBPSpO2 [id number]% Date/Time04/07 7:5504/07 7:5504/07 7:5504/07 7:5504/07 7:55 Range(36.2C - 37C ) (84 - 95 ) (16 - 18 ) (122 - 150 )/ (67 - 74 ) (93% - 95% ) Highest temp of 37 C was recorded at 04/06 23:03 Date: Weight/Scale Type:Height: 02-Apr-2020 20:1264.2 kg / xfk827.5 cm Physical Exam: Constitutional: Awake and alert; oriented x3 no apparent distress or respiratory distress Head/Neck: Neck supple with no palpable lymphadenopathy, bruits or masses; trachea midline Respiratory/Thorax: Clear to auscultation bilaterally Cardiovascular: Regular rate and rhythm; normal S1-S2 with no murmur; 1+ pulses and no edema Gastrointestinal: Soft, nontender, nondistended, positive bowel sounds Neurological: Nonfocal; cranial nerves II through XII appear intact Psychological: Pleasant but flat Hospital Course: Please refer to history and physical for details of admission. Patient presented to the emergency room on April 02 after sustaining a fall at home. She went to rehab that morning for her spinal stenosis and returned home with her arms full. She notes that she tripped on the dorsal and fell on her right side. She injured her right arm and had immediate pain in her right hip. She still had a jacket on her cell phone was available so she tried to call a neighbor but there was no reply. She ended up calling 911 because of the increased pain and inability to bear weight. She was taken to the emergency room for possible fracture. The pain was a 9 out of 10 in intensity sharp with no radiation. No other major complaints. In the ER she was hypertensive but the rest of her vitals were stable and she is afebrile. She had a 15.5 white count and a potassium was 3.2. The rest of her labs are unremarkable. She is COVID-19 negative and chest x-ray showed no evidence of acute cardiopulmonary disease and hip x-ray showed a right intertrochanteric fracture. She was given IV pain meds and placed on the medical service for evaluation. On the medical service she was admitted for right intertrochanteric fracture. Orthopedics was consulted and she was given a combination of oral and IV pain meds. Her aspirin and Brilinta were held in context of her anticipated surgery. She was maintained on her other home meds including her statin therapy and beta-fransisca and ARB. With the Brilinta on board, surgery was held for at least 24 hours. On the she underwent a short gamma nail of the right hip without incident. Her hospital course was uncomplicated however she started having hyponatremia with a sodium of 129 on the , 128 on the , 127 on the and this morning is 123 despite fluid restriction. She will be discharged home with [facility] with RN and PT to eval and treat. Ixnn-[id number]-laik is on the chart. Regarding her hyponatremia I am going to put her on sodium chloride tablets for 10 days and have electrolytes drawn in a few days with results to PCP. See below further recommendations. NOTE - it took 35 minutes to evaluate and coordinate patient for discharge Discharge Information: and Continuing Care: Lab Results - Pending: None Radiology Results - Pending: None Discharge Instructions: Activity: activity as tolerated Toe-touch weightbearing on the right. Weight-bearing Instructions: toe-touch weight-bearing right leg. Nutrition/Diet: regular Labs: Lab Test(s): Electrolytes Date To Be Drawn: 5-7 days Call Results To: PCP Additional Orders: Additional Instructions: STOP: 1. Brilinta NEW: 1. Enteric-coated aspirin 325 mg 1 p.o. twice daily for 30 days 2. [place] 5-325 mg 1 every 4 hours as needed for moderate pain #20 with no refills 3. Sodium chloride tablet 1 g 1 p.o. twice daily for 10 days HOLD BABY ASPIRIN WHILE TAKING THE ADULT ASPIRIN Recommend electrolytes to check sodium level in 5 to 7 days Leave dressing in place for 7 days then okay to remove Continue toe-touch weightbearing on the right lower extremity Follow-up with Dr. Cabrera in 2 weeks for evaluation and staple removal Follow-up with PCP in 5 to 7 days 2 prescription given 1 for a standard walker and the other 1 for a bedside commode Home Care Certification: Home Care Agency: (more content not included)...[facility] 04-04-2020 NotePROCEDURE DETAILS Preoperative Diagnosis: Hip fracture, right, S72.001A Postoperative Diagnosis: Hip fracture, right, S72.001A Surgeon: Nena Cabrera Resident/Fellow/Other Cutter Brake Lining: None of these were associated with this case Procedure: 1. R SHORT GAMMA NAIL Anesthesia: Americo Obando Estimated Blood Loss: 50ml Findings: As noted above Specimens(s) Collected: no, Complications: None Implants: [place] 11 x 180 x 125 degree gamma 3 nail Patient Returned To/Condition: Stable to PACU Operative Report: Indications-patient presented to the emergency department after sustaining a fall at home. She fell onto the right hip had immediate pain and was unable to stand. She was taken to the emergency department where radiographs of the right hip did demonstrate an intertrochanteric hip fracture. She was admitted for further care. We did discuss the risk benefits alternatives of treating the hip fracture via operative and nonoperative measures. She wished to proceed with operative intervention we did discuss the risks associated with this. She was still agreeable to proceed and written informed consent was obtained Description of procedurepatient was taken to the preoperative holding area once again the risk benefits alternatives indications were discussed in detail. The operative site was marked and agreed upon written informed consent was verified. The patient was then taken the operative room by nursing anesthesia staff she is placed supine on the operative table and general anesthesia was induced she was then positioned onto the fracture table with the well-leg in the well-leg jason and the right lower extremity in traction. Traction and abduction did provide good reduction of the fracture and C-arm confirmed this reduction. All bony prominences were well-padded and protected the right arm was draped across the chest. The right hip was then prepped and draped in typical fashion IV antibiotics were administered prior to incision operative timeout was undertaken identifying correct patient site and procedure all were in agreement. A 10 blade was then used to make a longitudinal incision proximal to the greater trochanter the gluteal fascia was then incised exposing the tip of the greater trochanter a guidewire was then placed onto the tip of the greater trochanter and radiograph confirmed the appropriate starting location for intramedullary nail. The guidewire was then advanced into the proximal femur. We checked the position on both AP and lateral radiographs. The entry reamer was then used to create director work hole for the nail. The nail was then inserted into the femur and the nail insertion guide was then used to pass the lag screw sleeve to the level skin where a secondary incision was made the fascia was incised in the guide was advanced to the lateral cortex of the femur. Guidewire was then advanced into the femoral neck and femoral head in the appropriate position this was confirmed on C-arm fluoroscopy to be low in the femoral neck and within 5 mm of the cortex of the femoral head. This was measured and found to be approximately 90 mm. The drill reamer was then advanced through the lateral cortex and into the femoral neck to ream the hole for the lag screw the lag screw was then advanced to the appropriate position in the femoral neck. Unfortunately to have a bone cyst in the femoral head and as the lag screw engaged the rim of the bone cyst it did displace the fracture somewhat into a valgus position. Attempts to remove the lag screw and redrill did not improve the positioning but I did feel like there was sufficient fixation to allow us to continue. The lag screw was then replaced and seated in the appropriate position and locked in place with the locking pin the distal static screw was then selected and the distal interlock screw sleeve was advanced to level skin a skin incision was made using a 10 blade longitudinally through the IT band and the drill sleeve was advanced to the cortex the cortex was then drilled with the appropriate size drill bit and a 37.5 mm x 5 mm fully threaded locking screw was advanced across the drill hole to secure the distal aspect of the nail. C-arm fluoroscopy was then used to verify appropriate position of the implant the aiming guide was then removed from the nail and the wounds were copiously irrigated with normal saline solution the deep fascia was closed with 2-0 Vicryl and the skin was closed with 2-0 Vicryl and sadaf. Aquacel island dressings were placed over the incisions the patient was awakened from anesthesia transferred to [facility] taken to PACU in stable condition she tolerated the procedure well without complication all needle sponge counts were correct. Postoperative course patient will be touchdown weightbearing because of the slight fracture displacement during fixation. We will monitor fracture for a (more content not included)...[facility]01-25-2021 NoteHistory of Present Illness: HPI: CAT CARROLL is a 84 year old Female who presented to emergency department today after a fall at home. She went to rehab this morning for her spinal stenosis and returned home with her arms full. She notes that she tripped on the door sill and fell on her right side. She injured her right arm and had immediate pain in her right hip area. She was still wearing her jacket and fortunately had her cell phone available. She initially tried to call her neighbor but there was no reply. She ended up calling 911 because of the increased pain and inability to bear weight. The squad arrived and did not attempt to stand her because of her pain and clinical signs of right hip fracture. She described a 9/10 intensity when she reported as being sharp with no radiation. She was transferred to the emergency department for evaluation and management. The patient did not report any prodromal symptoms of headache, dizziness, or lightheadedness. She had no chest pain or shortness of breath. On arrival to the emergency department, her temperature was 36.7 C and her heart rate was in the 70s. Her respiratory rate was 18 and her blood pressure was 179/74. She had a 97% saturation on room air. Her laboratory data revealed a white blood cell count of 15,500 with a hemoglobin of 12.4 and a platelet count of 284,000. Her glucose was 120 with a sodium of 132 and a potassium of 3.2. Her serum chloride was 97 with a bicarbonate of 25. Her BUN was 10 with a creatinine of 0.65. Her coronavirus test was negative. Chest x-ray did not show any evidence of acute cardiopulmonary disease. Hip x-ray showed a right intertrochanteric fracture. The patient was treated with IV pain medications and was recommended for inpatient evaluation and management. Past medical history-the patient has known coronary artery disease status post 2 stents in August [address] Fair. She has hyperlipidemia, chronic hypertension, GERD, previous D&C, left total knee arthroplasty, breast cyst removal, back surgery in [address] Hinds at the [facility], previous hysterectomy, and right kidney surgery which was reportedly for stabilizing the kidney in place.She does have untreated sleep apnea as she is intolerant of CPAP. She had previous trigeminal neuralgia. Social history-the patient lives alone. She has a son and a daughter who live just outside of [place]. She worked for the [employer]. She has no current or previous alcohol use and had about a 7-5-vlvv-year smoking history between the ages of 31 and 41. She grew up in [place]. Her father was out of her life since about age 15 as result of a divorce. Family history-the patient's mother at age 61 from complications of an IA at her father in his 50s from complications of coronary disease and strokes. Comorbidities: Comorbid Conditionshypertension Allergies: Neosporin: Rash Latex: Rash Tape - Adhesive, Bandaids, Paper: Rash Intolerances: gabapentin: Dizziness aspirin: GI Upset codeine: GI Upset Dust: Congestion Medications Prior to Admission: Lipitor 80 mg oral tablet: 1 tab(s) orally once a day Centrum Silver oral tablet: 1 tab(s) orally once a day Questran 4 g/9 g oral powder for reconstitution: orally once a day Brilinta (ticagrelor) 90 mg oral tablet: 1 tab(s) orally 2 times a day Flovent HFA 110 mcg/inh inhalation aerosol: 2 puff(s) inhaled 2 times a day nitroglycerin 0.4 mg sublingual tablet: 1 tab(s) sublingual every 5 minutes, As Needed omeprazole 40 mg oral delayed release capsule: 1 cap(s) orally once a day Metoprolol Tartrate 25 mg oral tablet: 1 tab(s) orally 2 times a day Aspirin Enteric Coated 81 mg oral delayed release tablet: 1 tab(s) orally once a day traMADol 50 mg oral tablet: 1 tab(s) orally every 8 hours, As Needed - for pain carBAMazepine 200 mg oral tablet: 1 tab(s) orally 3 times a day DULoxetine 60 mg oral delayed release capsule: 1 cap(s) orally once a day losartan 25 mg oral tablet: 1 tab(s) orally once a day oxybutynin 5 mg/24 hours oral tablet, extended release: 1 tab(s) orally once a day Vitamin D3: 1 tab(s) orally once a day Fish Oil oral capsule: 1 cap(s) orally once a day. Objective: Objective Information: T PRBPSpO2 [id number]/[id number]% Date/Time04/02 15: 15: 15: 15: 15:38 Range(36.7C - 36.7C ) (76 - 76 ) (18 - 18 ) (179 - 179 )/ (74 - 74 ) (97% - 97% ) Pain reported at 04/02 18:31: 4 = Moderate Physical Exam by System: Constitutional: In bed, lying nearly flat with no acute distress or tachypnea Eyes: Her pupils were equal, round, and reactive to light and her subconjunctival were injected ENMT: She had full dentures with a dry oral mucosa and no pharyngeal lesions Head/Neck: Her head was atraumatic and her neck was supple with no thyromegaly Respiratory/Thorax: She had adequate air exchange (more content not included)... [facility]* Diagnosis Essential hypertension- Primary Unspecified essential hypertension 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 Uncontrolled pain [facility] Essential hypertension- Primary Unspecified essential hypertension Acute myocardial infarction, unspecified IA type, unspecified artery (HCC) [facility] Diagnosis Essential hypertension Unspecified essential hypertension Dizziness Dizziness and giddiness [facility]* Diagnosis Gastroesophageal reflux disease Esophageal reflux [facility]* Diagnosis Essential hypertension Unspecified essential hypertension Acute myocardial infarction, unspecified IA type, unspecified artery (HCC) [facility] Diagnosis Essential hypertension Unspecified essential hypertension Acute myocardial infarction, unspecified IA type, unspecified artery (HCC) [facility]* Diagnosis 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 [facility]* Diagnosis Coronary artery disease 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- Primary Chronic systolic heart failure (HCC) Chronic systolic heart failure Mixed [facility] Diagnosis 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, without long-term current use of insulin ([facility])- Primary Primary hypertension Unspecified essential hypertension Mixed hyperlipidemia Vitamin D deficiency [facility]* Diagnosis Urinary frequency- Primary Acute cystitis with hematuria [facility]* Diagnosis Trigeminal neuralgia- Primary [facility]* Diagnosis Trigeminal neuralgia- Primary [facility]* Diagnosis Trigeminal neuralgia- Primary [facility]* Diagnosis Mixed hyperlipidemia [facility]* Diagnosis Trigeminal neuralgia [facility]* Diagnosis At moderate risk for fall- Primary Dysuria Left hip pain Pain in joint, pelvic region and thigh [facility]* Diagnosis Trigeminal neuralgia- Primary [facility]* Diagnosis Chronic left SI joint pain- Primary Disorders of sacrum Closed fracture of multiple pubic rami, unspecified laterality, initial encounter ([facility]) Left hip pain Pain in joint, pelvic region and thigh [facility] Diagnosis Gastroesophageal reflux disease Esophageal reflux [facility]* Diagnosis DDD (degenerative disc disease), lumbar- Primary Degeneration of lumbar or lumbosacral intervertebral disc Chronic left SI joint pain Disorders of sacrum Left hip pain Pain in joint, pelvic region and thigh [facility]* Diagnosis Coronary artery disease 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- Primary Mixed hyperlipidemia Chronic systolic heart failure (HCC) Chronic systolic heart failure [facility] Diagnosis DDD (degenerative disc disease), lumbar Degeneration of lumbar or lumbosacral intervertebral disc Lumbar degenerative disc disease [facility] Diagnosis Lumbar degenerative disc disease- [facility] Lumbar degenerative disc disease- [facility] Diagnosis Lumbar degenerative disc disease- Primary [facility] Diagnosis Lumbar degenerative disc disease- Primary [facility]* Diagnosis Left hip pain- Primary Pain in joint, pelvic region and thigh 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) Chronic bronchitis, unspecified chronic bronchitis type (HCC) Type 2 diabetes mellitus with chronic kidney disease, without long-term current use of insulin, unspecified CKD stage (HCC) Stage 3 chronic kidney disease, unspecified whether stage 3a or 3b CKD ([facility]) Hyponatremia Hyposmolality and/or hyponatremia Dermatitis Contact dermatitis and other eczema, due to unspecified cause Vulvovaginal discomfort [facility] Anxiety- Primary Anxiety state, unspecified Left hip pain Pain in joint, pelvic region and thigh Trigeminal neuralgia of left side of face [facility] Diagnosis 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 [facility]* Diagnosis Trigeminal neuralgia- Primary [facility] noteNo assessment information availableWTri[facility] Work [facility]: [facility]* Diagnosis Mixed hyperlipidemia [facility] Diagnosis Left hip pain- Primary Pain in joint, pelvic region and thigh Chronic left SI joint pain Disorders of sacrum DDD (degenerative disc disease), lumbar Degeneration of lumbar or lumbosacral intervertebral disc [facility] Diagnosis Coronary artery disease 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- Primary Essential hypertension Unspecified essential hypertension Chronic systolic heart failure (HCC) Chronic systolic heart failure Mixed hyperlipidemia [facility] Diagnosis Trigeminal neuralgia- Primary [facility] Diagnosis Chronic systolic heart failure (HCC) Chronic systolic heart failure Essential hypertension Unspecified essential hypertension Trigeminal neuralgia [facility] Diagnosis Mixed hyperlipidemia [facility] Diagnosis Trigeminal neuralgia- Primary 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 Diagnosis Hypokalemia- Primary Hypopotassemia [facility]* Diagnosis Trigeminal neuralgia [facility] Diagnosis Chronic GERD- Primary History of benign carcinoid tumor Bile reflux gastritis Other specified gastritis without mention of hemorrhage documented in this encounter [facility] Work Phone: Evaluation note* Diagnosis Moderate major depression (HCC)- Primary Major depressive disorder, single episode, moderate Mild left ventricular systolic dysfunction Hypertension, unspecified type [facility] Diagnosis Moderate major depression (HCC)- Primary Major depressive disorder, single episode, moderate Mild left ventricular systolic dysfunction Hypertension, unspecified type [facility] Diagnosis Elevated creatine kinase- Primary Other nonspecific abnormal serum enzyme levels Elevated serum creatinine Other nonspecific findings on examination of blood [facility] Diagnosis Dysuria- Primary [facility] Diagnosis DDD (degenerative disc disease), lumbar- Primary Degeneration of lumbar or lumbosacral intervertebral disc Trigeminal neuralgia of left side of face Closed fracture of multiple pubic rami, unspecified laterality, initial encounter ([facility]) [facility] Diagnosis Lumbar spondylosis- Primary Lumbosacral spondylosis without myelopathy [facility]* Diagnosis Essential hypertension Unspecified essential hypertension Acute myocardial infarction, unspecified IA type, unspecified artery (HCC) [facility]* Diagnosis At low risk for fall- Primary Mild left ventricular systolic dysfunction 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-sided sciatica Medicare annual wellness visit, subsequent Moderate major depression (HCC) Major depressive disorder, single episode, moderate Right ankle swelling Effusion of ankle and foot joint Leg swelling Swelling of limb 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 Chronic systolic heart failure (HCC) Chronic systolic heart failure Chronic bronchitis, unspecified chronic bronchitis type (HCC) Coagulation disorder (HCC) Other and unspecified coagulation defects Stage 3 chronic kidney disease, unspecified whether stage 3a or 3b CKD (HCC) Primary hypertension Unspecified essential hypertension Spinal stenosis, 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 neurogenic claudication Dysuria Upper respiratory tract infection, unspecified type Frequent UTI Urinary tract infection, site not specified At moderate risk for fall Encounter for follow-up examination after completed treatment for conditions other than malignant neoplasm [facility]* Diagnosis Acute ST elevation myocardial infarction (STEMI) of inferior wall (HCC)- Primary Coronary artery disease 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 [facility]* Diagnosis Dysuria- Primary [facility]* Diagnosis Dysuria- Primary [facility]* Diagnosis Trigeminal neuralgia of left side of face- Primary [facility]* Diagnosis Dysuria- Primary [facility]* Diagnosis Lumbar spondylosis- Primary Lumbosacral spondylosis without myelopathy Lumbar spondylosis Lumbosacral spondylosis without myelopathy Lumbar spondylosis Lumbosacral spondylosis without myelopathy [facility]* Diagnosis Lumbar spondylosis- Primary Lumbosacral spondylosis without myelopathy DDD (degenerative disc disease), lumbar Degeneration of lumbar or lumbosacral intervertebral disc Lumbar spondylosis Lumbosacral spondylosis without myelopathy Lumbar spondylosis Lumbosacral spondylosis without myelopathy [facility]* Diagnosis Preop cardiovascular exam- Primary Pre-operative cardiovascular examination Acute myocardial infarction, unspecified IA type, unspecified artery (HCC) 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 Chronic systolic heart failure (HCC) Chronic systolic heart failure Chronic bronchitis, unspecified chronic bronchitis type (HCC) Moderate major depression (HCC) Major depressive disorder, single episode, moderate Coagulation disorder (HCC) Other and unspecified coagulation defects Ataxia Lack of coordination [facility]* Diagnosis Dizziness- Primary Dizziness and giddiness [facility]* Diagnosis Hypokalemia- Primary Hypopotassemia Chronic systolic heart failure (HCC) Chronic systolic heart failure Leg swelling Swelling of limb Primary hypertension Unspecified essential hypertension [facility]* Diagnosis Hypokalemia- Primary Hypopotassemia Chronic systolic heart failure (HCC) Chronic systolic heart failure Leg swelling Swelling of limb Primary hypertension Unspecified essential hypertension [facility]* Diagnosis Hypokalemia- Primary Hypopotassemia Chronic systolic heart failure (HCC) Chronic systolic heart failure Leg swelling Swelling of limb Primary hypertension Unspecified essential hypertension [facility]* Diagnosis Hypokalemia- Primary Hypopotassemia Chronic systolic heart failure (HCC) Chronic systolic heart failure Leg swelling Swelling of limb Primary hypertension Unspecified essential hypertension [facility]* Diagnosis Degenerative disc disease, lumbar- Primary [facility]* Diagnosis Essential hypertension Unspecified essential hypertension DDD (degenerative disc disease), lumbar Degeneration of lumbar or lumbosacral intervertebral disc [facility]* Diagnosis DDD (degenerative disc disease), lumbar- Primary Degeneration of lumbar or lumbosacral intervertebral disc Trigeminal neuralgia of left side of face Closed fracture of multiple pubic rami, unspecified laterality, initial encounter ([facility]) DDD (degenerative disc disease), lumbar Degeneration of lumbar or lumbosacral intervertebral disc [facility]* Diagnosis DDD (degenerative disc disease), lumbar Degeneration of lumbar or lumbosacral intervertebral disc [facility]* Diagnosis Lumbar spondylosis- Primary Lumbosacral spondylosis without myelopathy [facility]* Diagnosis DDD (degenerative disc disease), lumbar Degeneration of lumbar or lumbosacral intervertebral disc [facility]* Diagnosis Skin tear of elbow without complication, left, subsequent encounter- Primary [facility] Diagnosis Trigeminal neuralgia of left side of face- Primary [facility]* Diagnosis Abnormal urine findings- Primary Other nonspecific finding on examination of urine [facility] Diagnosis Failed back surgical syndrome- Primary 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) Non-seasonal allergic rhinitis, unspecified allergic rhinitis trigger- Primary Trigeminal neuralgia of left side of face Cough Gastroesophageal reflux disease, esophagitis presence not specified Vitamin D deficiency Non-seasonal allergic rhinitis, unspecified allergic rhinitis trigger- Primary Cough Gastroesophageal reflux disease, esophagitis presence not specified Acute non-recurrent maxillary sinusitis Essential hypertension Unspecified essential hypertension Essential hypertension- Primary Unspecified essential hypertension Flu vaccine need Chronic kidney disease (CKD), stage III (moderate) (HCC) Chronic kidney disease, Stage III (moderate) Gastroesophageal reflux disease, esophagitis presence not specified Vitamin D deficiency Cough- Primary Upper respiratory tract infection, unspecified type Essential hypertension- Primary Unspecified essential hypertension Osteoporosis, unspecified osteoporosis type, unspecified pathological fracture presence Vitamin D deficiency 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 At low risk for fall Frequent UTI- Primary Urinary tract infection, site not specified 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) Essential hypertension Unspecified essential hypertension Trigeminal neuralgia of left side of face 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 Gastroesophageal reflux disease, esophagitis presence not specified Acute cystitis with hematuria- Primary Trigeminal neuralgia of left side of face Abdominal pain, unspecified abdominal location- Primary Iliocostal friction syndrome Left groin pain Abdominal pain, left lower quadrant Left groin pain Abdominal pain, left lower quadrant Anxiety Anxiety state, unspecified Essential hypertension- Primary Unspecified essential hypertension Gastroesophageal reflux disease, esophagitis presence not specified Frequent UTI Urinary tract infection, site not specified Essential hypertension- Primary Unspecified essential hypertension Gastroesophageal reflux disease, esophagitis presence not specified Chronic kidney disease (CKD), stage III (moderate) (HCC) Chronic kidney disease, Stage III (moderate) Vitamin D deficiency Actinic keratosis Acute ST elevation myocardial infarction (STEMI) of inferolateral wall (HCC)- Primary Acute ST elevation myocardial infarction (STEMI) of inferior wall (HCC) Acute myocardial infarction (HCC) Acute myocardial infarction, unspecified site, episode of care unspecified Coronary artery disease without angina pectoris, unspecified vessel or lesion type, unspecified whether soboba or transplanted heart Essential hypertension Unspecified essential hypertension Mixed hyperlipidemia Coronary artery disease without angina pectoris, unspecified vessel or lesion type, unspecified whether soboba or transplanted heart Essential hypertension Unspecified essential hypertension Mixed hyperlipidemia Mixed hyperlipidemia Essential hypertension Unspecified essential hypertension Coronary artery disease without angina pectoris, unspecified vessel or lesion type, unspecified whether soboba or transplanted heart Coronary artery disease 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 Mixed hyperlipidemia Essential hypertension Unspecified essential hypertension Trigeminal neuralgia of left side of face At low risk for fall- Primary 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 (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) 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, without long-term current use of insulin ([facility]) Essential hypertension Unspecified essential hypertension Mixed hyperlipidemia Vitamin D deficiency Chronic left SI joint pain Disorders of sacrum Sciatica, left side 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) Mixed hyperlipidemia Essential hypertension Unspecified essential hypertension Coronary artery disease 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 Chronic left SI joint pain- Primary Disorders of sacrum Degenerative disc disease, 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 Depression, unspecified depression type 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-sided sciatica Depression, unspecified depression type Status post right hip replacement Essential hypertension- Primary Unspecified essential hypertension 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 Uncontrolled pain Coronary artery disease 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 Stage 3 chronic kidney disease, unspecified whether stage 3a or 3b CKD (HCC) Degenerative disc disease, lumbar Mixed hyperlipidemia Essential hypertension Unspecified essential hypertension Essential hypertension- Primary Unspecified essential hypertension Acute myocardial infarction, unspecified IA type, unspecified artery (HCC) Essential hypertension Unspecified essential hypertension Dizziness Dizziness and giddiness Closed fracture of multiple pubic rami, unspecified laterality, initial encounter ([facility]) Closed fracture of multiple ribs, unspecified laterality, initial encounter At moderate risk for fall- Primary Dysuria Left hip pain Pain in joint, pelvic region and thigh 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, without long-term current use of insulin (HCC)- Primary Chronic bronchitis, unspecified chronic bronchitis type (HCC) Stage 3 chronic kidney disease, unspecified whether stage 3a or 3b CKD (HCC) 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) Trigeminal neuralgia of left side of face Prediabetes Other abnormal glucose Acute ST elevation myocardial infarction (STEMI) of inferior wall (HCC) Spinal stenosis, 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 neurogenic claudication At low risk for fall- Primary 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) Medicare annual wellness visit, subsequent Right ankle swelling Effusion of ankle and foot joint Frequent UTI- Primary Urinary tract infection, site not specified 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) Chronic bronchitis, unspecified chronic bronchitis type (HCC) Type 2 diabetes mellitus with chronic kidney disease, without long-term current use of insulin, unspecified CKD stage (HCC) Stage 3 chronic kidney disease, unspecified whether stage 3a or 3b CKD ([facility]) Hyponatremia Hyposmolality and/or hyponatremia Dermatitis Contact dermatitis and other eczema, due to unspecified cause Vulvovaginal discomfort Anxiety- Primary Anxiety state, unspecified Left hip pain Pain in joint, pelvic region and thigh Trigeminal neuralgia of left side of face Dizziness- Primary Dizziness and giddiness Chronic systolic heart failure (HCC) Chronic systolic heart failure Dysuria Trigeminal neuralgia of left side of face Stage 3 chronic kidney disease, unspecified whether stage 3a or 3b CKD (HCC)- Primary 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-sided sciatica Mixed hyperlipidemia Right ankle swelling Effusion of ankle and foot joint Prediabetes Other abnormal glucose Spinal stenosis, 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 neurogenic claudication Hyponatremia Hyposmolality and/or hyponatremia Coronary artery disease 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 Moderate major depression (HCC)- Primary Major depressive disorder, single episode, moderate 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 Trigeminal neuralgia of left side of face Moderate major depression (HCC)- Primary Major depressive disorder, single episode, moderate Mild left ventricular systolic dysfunction Hypertension, unspecified type At low risk for fall- Primary Mild left ventricular systolic dysfunction 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-sided sciatica Medicare annual wellness visit, subsequent Moderate major depression (HCC) Major depressive disorder, single episode, moderate Right ankle swelling Effusion of ankle and foot joint Leg swelling Swelling of limb 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 Chronic systolic heart failure (HCC) Chronic systolic heart failure Chronic bronchitis, unspecified chronic bronchitis type (HCC) Coagulation disorder (HCC) Other and unspecified coagulation defects Stage 3 chronic kidney disease, unspecified whether stage 3a or 3b CKD (HCC) Primary hypertension Unspecified essential hypertension Spinal stenosis, 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 neurogenic claudication Dysuria Upper respiratory tract infection, unspecified type Frequent UTI Urinary tract infection, site not specified At moderate risk for fall Encounter for follow-up examination after completed treatment for conditions other than malignant neoplasm Preop cardiovascular exam- Primary Pre-operative cardiovascular examination Acute myocardial infarction, unspecified IA type, unspecified artery (HCC) 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 Chronic systolic heart failure (HCC) Chronic systolic heart failure Chronic bronchitis, unspecified chronic bronchitis type (HCC) Moderate major depression (HCC) Major depressive disorder, single episode, moderate Coagulation disorder (HCC) Other and unspecified coagulation defects Ataxia Lack of coordination Hypokalemia- Primary Hypopotassemia Chronic systolic heart failure (HCC) Chronic systolic heart failure Leg swelling Swelling of limb Primary hypertension Unspecified essential hypertension 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-sided sciatica- Primary Essential hypertension Unspecified essential hypertension Acute myocardial infarction, unspecified IA type, unspecified artery (HCC) Chronic systolic heart failure (HCC) Chronic systolic heart failure Trigeminal neuralgia of left side of face Lumbar spondylosis- Primary Lumbosacral spondylosis without myelopathy Lumbar spondylosis- Primary Lumbosacral spondylosis without myelopathy [facility] Diagnosis Cough- Primary Gastroesophageal reflux disease, esophagitis presence not specified Essential hypertension Unspecified essential hypertension Chronic maxillary sinusitis Perennial allergic rhinitis, unspecified allergic rhinitis trigger Trigeminal neuralgia of left side of face 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) Non-seasonal allergic rhinitis, unspecified allergic rhinitis trigger- Primary Trigeminal neuralgia of left side of face Cough Gastroesophageal reflux disease, esophagitis presence not specified Vitamin D deficiency Non-seasonal allergic rhinitis, unspecified allergic rhinitis trigger- Primary Cough Gastroesophageal reflux disease, esophagitis presence not specified Acute non-recurrent maxillary sinusitis Essential hypertension Unspecified essential hypertension Essential hypertension- Primary Unspecified essential hypertension Flu vaccine need Chronic kidney disease (CKD), stage III (moderate) (HCC) Chronic kidney disease, Stage III (moderate) Gastroesophageal reflux disease, esophagitis presence not specified Vitamin D deficiency Cough- Primary Upper respiratory tract infection, unspecified type Essential hypertension- Primary Unspecified essential hypertension Osteoporosis, unspecified osteoporosis type, unspecified pathological fracture presence Vitamin D deficiency 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 At low risk for fall Frequent UTI- Primary Urinary tract infection, site not specified 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) Essential hypertension Unspecified essential hypertension Trigeminal neuralgia of left side of face 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 Gastroesophageal reflux disease, esophagitis presence not specified Acute cystitis with hematuria- Primary Trigeminal neuralgia of left side of face Abdominal pain, unspecified abdominal location- Primary Iliocostal friction syndrome Left groin pain Abdominal pain, left lower quadrant Left groin pain Abdominal pain, left lower quadrant Anxiety Anxiety state, unspecified Essential hypertension- Primary Unspecified essential hypertension Gastroesophageal reflux disease, esophagitis presence not specified Frequent UTI Urinary tract infection, site not specified Essential hypertension- Primary Unspecified essential hypertension Gastroesophageal reflux disease, esophagitis presence not specified Chronic kidney disease (CKD), stage III (moderate) ([facility]) Chronic kidney disease, Stage III (moderate) Vitamin D deficiency Actinic keratosis Acute ST elevation myocardial infarction (STEMI) of inferolateral wall ([facility])- Primary Acute ST elevation myocardial infarction (STEMI) of inferior wall ([facility]) Acute myocardial infarction ([facility]) Acute myocardial infarction, unspecified site, episode of care unspecified Coronary artery disease without angina pectoris, unspecified vessel or lesion type, unspecified whether soboba or transplanted heart Essential hypertension Unspecified essential hypertension Mixed hyperlipidemia Coronary artery disease without angina pectoris, unspecified vessel or lesion type, unspecified whether sob[place] or transplanted heart Essential hypertension Unspecified essential hypertension Mixed hyperlipidemia Mixed hyperlipidemia Essential hypertension Unspecified essential hypertension Coronary artery disease without angina pectoris, unspecified vessel or lesion type, unspecified whether sob[place] or transplanted heart Coronary artery disease 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 Mixed hyperlipidemia Essential hypertension Unspecified essential hypertension Trigeminal neuralgia of left side of face At low risk for fall- Primary 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 (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) 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, without long-term current use of insulin ([facility]) Essential hypertension Unspecified essential hypertension Mixed hyperlipidemia Vitamin D deficiency Chronic left SI joint pain Disorders of sacrum Sciatica, left side 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) Mixed hyperlipidemia Essential hypertension Unspecified essential hypertension Coronary artery disease 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 Chronic left SI joint pain- Primary Disorders of sacrum Degenerative disc disease, 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 Depression, unspecified depression type 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-sided sciatica Depression, unspecified depression type Status post right hip replacement Essential hypertension- Primary Unspecified essential hypertension 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 Uncontrolled pain Coronary artery disease 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 Stage 3 chronic kidney disease, unspecified whether stage 3a or 3b CKD ([facility]) Degenerative disc disease, lumbar Mixed hyperlipidemia Essential hypertension Unspecified essential hypertension Essential hypertension- Primary Unspecified essential hypertension Acute myocardial infarction, unspecified IA type, unspecified artery (HCC) Essential hypertension Unspecified essential hypertension Dizziness Dizziness and giddiness Closed fracture of multiple pubic rami, unspecified laterality, initial encounter ([facility]) Closed fracture of multiple ribs, unspecified laterality, initial encounter At moderate risk for fall- Primary Dysuria Left hip pain Pain in joint, pelvic region and thigh 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, without long-term current use of insulin ([facility])- Primary Chronic bronchitis, unspecified chronic bronchitis type ([facility]) Stage 3 chronic kidney disease, unspecified whether stage 3a or 3b CKD ([facility]) 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) Trigeminal neuralgia of left side of face Prediabetes Other abnormal glucose Acute ST elevation myocardial infarction (STEMI) of inferior wall ([facility]) Spinal stenosis, 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 neurogenic claudication At low risk for fall- Primary 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) Medicare annual wellness visit, subsequent Right ankle swelling Effusion of ankle and foot joint Frequent UTI- Primary Urinary tract infection, site not specified 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) Chronic bronchitis, unspecified chronic bronchitis type ([facility]) Type 2 diabetes mellitus with chronic kidney disease, without long-term current use of insulin, unspecified CKD stage ([facility]) Stage 3 chronic kidney disease, unspecified whether stage 3a or 3b CKD ([facility]) Hyponatremia Hyposmolality and/or hyponatremia Dermatitis Contact dermatitis and other eczema, due to unspecified cause Vulvovaginal discomfort Anxiety- Primary Anxiety state, unspecified Left hip pain Pain in joint, pelvic region and thigh Trigeminal neuralgia of left side of face Dizziness- Primary Dizziness and giddiness Chronic systolic heart failure (HCC) Chronic systolic heart failure Dysuria Trigeminal neuralgia of left side of face Stage 3 chronic kidney disease, unspecified whether stage 3a or 3b CKD (HCC)- Primary 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-sided sciatica Mixed hyperlipidemia Right ankle swelling Effusion of ankle and foot joint Prediabetes Other abnormal glucose Spinal stenosis, 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 neurogenic claudication Hyponatremia Hyposmolality and/or hyponatremia Coronary artery disease 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 Moderate major depression (HCC)- Primary Major depressive disorder, single episode, moderate 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 Trigeminal neuralgia of left side of face Moderate major depression (HCC)- Primary Major depressive disorder, single episode, moderate Mild left ventricular systolic dysfunction Hypertension, unspecified type At low risk for fall- Primary Mild left ventricular systolic dysfunction 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-sided sciatica Medicare annual wellness visit, subsequent Moderate major depression (HCC) Major depressive disorder, single episode, moderate Right ankle swelling Effusion of ankle and foot joint Leg swelling Swelling of limb 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 Chronic systolic heart failure (HCC) Chronic systolic heart failure Chronic bronchitis, unspecified chronic bronchitis type (HCC) Coagulation disorder Other and unspecified coagulation defects Stage 3 chronic kidney disease, unspecified whether stage 3a or 3b CKD (HCC) Primary hypertension Unspecified essential hypertension Spinal stenosis, 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 neurogenic claudication Dysuria Upper respiratory tract infection, unspecified type Frequent UTI Urinary tract infection, site not specified At moderate risk for fall Encounter for follow-up examination after completed treatment for conditions other than malignant neoplasm Preop cardiovascular exam- Primary Pre-operative cardiovascular examination Acute myocardial infarction, unspecified IA type, unspecified artery (HCC) 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 Chronic systolic heart failure (HCC) Chronic systolic heart failure Chronic bronchitis, unspecified chronic bronchitis type (HCC) Moderate major depression (HCC) Major depressive disorder, single episode, moderate Coagulation disorder Other and unspecified coagulation defects Ataxia Lack of coordination Hypokalemia- Primary Hypopotassemia Chronic systolic heart failure (HCC) Chronic systolic heart failure Leg swelling Swelling of limb Primary hypertension Unspecified essential hypertension 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-sided sciatica- Primary Essential hypertension Unspecified essential hypertension Acute myocardial infarction, unspecified IA type, unspecified artery (HCC) Chronic systolic heart failure (HCC) Chronic systolic heart failure Trigeminal neuralgia of left side of face Fall, initial encounter- Primary 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 Chronic systolic heart failure (HCC) Chronic systolic heart failure Chronic bronchitis, unspecified chronic bronchitis type (HCC) Moderate major depression (HCC) Major depressive disorder, single episode, moderate Primary hypertension Unspecified essential hypertension Left thyroid nodule Anxiety Anxiety state, unspecified [facility] Diagnosis Cough- Primary Gastroesophageal reflux disease, esophagitis presence not specified Essential hypertension Unspecified essential hypertension Chronic maxillary sinusitis Perennial allergic rhinitis, unspecified allergic rhinitis trigger Trigeminal neuralgia of left side of face 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) Non-seasonal allergic rhinitis, unspecified allergic rhinitis trigger- Primary Trigeminal neuralgia of left side of face Cough Gastroesophageal reflux disease, esophagitis presence not specified Vitamin D deficiency Non-seasonal allergic rhinitis, unspecified allergic rhinitis trigger- Primary Cough Gastroesophageal reflux disease, esophagitis presence not specified Acute non-recurrent maxillary sinusitis Essential hypertension Unspecified essential hypertension Essential hypertension- Primary Unspecified essential hypertension Flu vaccine need Chronic kidney disease (CKD), stage III (moderate) (HCC) Chronic kidney disease, Stage III (moderate) Gastroesophageal reflux disease, esophagitis presence not specified Vitamin D deficiency Cough- Primary Upper respiratory tract infection, unspecified type Essential hypertension- Primary Unspecified essential hypertension Osteoporosis, unspecified osteoporosis type, unspecified pathological fracture presence Vitamin D deficiency 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 At low risk for fall Frequent UTI- Primary Urinary tract infection, site not specified 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) Essential hypertension Unspecified essential hypertension Trigeminal neuralgia of left side of face 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 Gastroesophageal reflux disease, esophagitis presence not specified Acute cystitis with hematuria- Primary Trigeminal neuralgia of left side of face Abdominal pain, unspecified abdominal location- Primary Iliocostal friction syndrome Left groin pain Abdominal pain, left lower quadrant Left groin pain Abdominal pain, left lower quadrant Anxiety Anxiety state, unspecified Essential hypertension- Primary Unspecified essential hypertension Gastroesophageal reflux disease, esophagitis presence not specified Frequent UTI Urinary tract infection, site not specified Essential hypertension- Primary Unspecified essential hypertension Gastroesophageal reflux disease, esophagitis presence not specified Chronic kidney disease (CKD), stage III (moderate) ([facility]) Chronic kidney disease, Stage III (moderate) Vitamin D deficiency Actinic keratosis Acute ST elevation myocardial infarction (STEMI) of inferolateral wall ([facility])- Primary Acute ST elevation myocardial infarction (STEMI) of inferior wall ([facility]) Acute myocardial infarction ([facility]) Acute myocardial infarction, unspecified site, episode of care unspecified Coronary artery disease without angina pectoris, unspecified vessel or lesion type, unspecified whether [place] or transplanted heart Essential hypertension Unspecified essential hypertension Mixed hyperlipidemia Coronary artery disease without angina pectoris, unspecified vessel or lesion type, unspecified whether [place] or transplanted heart Essential hypertension Unspecified essential hypertension Mixed hyperlipidemia Mixed hyperlipidemia Essential hypertension Unspecified essential hypertension Coronary artery disease without angina pectoris, unspecified vessel or lesion type, unspecified whether [place] or transplanted heart Coronary artery disease 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 Mixed hyperlipidemia Essential hypertension Unspecified essential hypertension Trigeminal neuralgia of left side of face At low risk for fall- Primary 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 (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) 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, without long-term current use of insulin ([facility]) Essential hypertension Unspecified essential hypertension Mixed hyperlipidemia Vitamin D deficiency Chronic left SI joint pain Disorders of sacrum Sciatica, left side 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) Mixed hyperlipidemia Essential hypertension Unspecified essential hypertension Coronary artery disease 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 Chronic left SI joint pain- Primary Disorders of sacrum Degenerative disc disease, 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 Depression, unspecified depression type 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-sided sciatica Depression, unspecified depression type Status post right hip replacement Essential hypertension- Primary Unspecified essential hypertension Simple chronic bronchitis ([facility]) Simple chronic bronchitis Uncontrolled pain Coronary artery disease 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 Stage 3 chronic kidney disease, unspecified whether stage 3a or 3b CKD ([facility]) Degenerative disc disease, lumbar Mixed hyperlipidemia Essential hypertension Unspecified essential hypertension Essential hypertension- Primary Unspecified essential hypertension Acute myocardial infarction, unspecified IA type, unspecified artery ([facility]) Essential hypertension Unspecified essential hypertension Dizziness Dizziness and giddiness Closed fracture of multiple pubic rami, unspecified laterality, initial encounter ([facility]) Closed fracture of multiple ribs, unspecified laterality, initial encounter At moderate risk for fall- Primary Dysuria Left hip pain Pain in joint, pelvic region and thigh 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, without long-term current use of insulin ([facility])- Primary Chronic bronchitis, unspecified chronic bronchitis type ([facility]) Stage 3 chronic kidney disease, unspecified whether stage 3a or 3b CKD ([facility]) 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) Trigeminal neuralgia of left side of face Prediabetes Other abnormal glucose Acute ST elevation myocardial infarction (STEMI) of inferior wall ([facility]) Spinal stenosis, 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 neurogenic claudication At low risk for fall- Primary 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) Medicare annual wellness visit, subsequent Right ankle swelling Effusion of ankle and foot joint Frequent UTI- Primary Urinary tract infection, site not specified 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) Chronic bronchitis, unspecified chronic bronchitis type ([facility]) Type 2 diabetes mellitus with chronic kidney disease, without long-term current use of insulin, unspecified CKD stage ([facility]) Stage 3 chronic kidney disease, unspecified whether stage 3a or 3b CKD ([facility]) Hyponatremia Hyposmolality and/or hyponatremia Dermatitis Contact dermatitis and other eczema, due to unspecified cause Vulvovaginal discomfort Anxiety- Primary Anxiety state, unspecified Left hip pain Pain in joint, pelvic region and thigh Trigeminal neuralgia of left side of face Dizziness- Primary Dizziness and giddiness Chronic systolic heart failure (HCC) Chronic systolic heart failure Dysuria Trigeminal neuralgia of left side of face Stage 3 chronic kidney disease, unspecified whether stage 3a or 3b CKD ([facility])- Primary 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-sided sciatica Mixed hyperlipidemia Right ankle swelling Effusion of ankle and foot joint Prediabetes Other abnormal glucose Spinal stenosis, 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 neurogenic claudication Hyponatremia Hyposmolality and/or hyponatremia Coronary artery disease 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 Moderate major depression ([facility])- Primary Major depressive disorder, single episode, moderate 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 Trigeminal neuralgia of left side of face Moderate major depression ([facility])- Primary Major depressive disorder, single episode, moderate Mild left ventricular systolic dysfunction Hypertension, unspecified type At low risk for fall- Primary Mild left ventricular systolic dysfunction 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-sided sciatica Medicare annual wellness visit, subsequent Moderate major depression (HCC) Major depressive disorder, single episode, moderate Right ankle swelling Effusion of ankle and foot joint Leg swelling Swelling of limb 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 Chronic systolic heart failure (HCC) Chronic systolic heart failure Chronic bronchitis, unspecified chronic bronchitis type (HCC) Coagulation disorder Other and unspecified coagulation defects Stage 3 chronic kidney disease, unspecified whether stage 3a or 3b CKD (HCC) Primary hypertension Unspecified essential hypertension Spinal stenosis, 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 neurogenic claudication Dysuria Upper respiratory tract infection, unspecified type Frequent UTI Urinary tract infection, site not specified At moderate risk for fall Encounter for follow-up examination after completed treatment for conditions other than malignant neoplasm Preop cardiovascular exam- Primary Pre-operative cardiovascular examination Acute myocardial infarction, unspecified IA type, unspecified artery (HCC) 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 Chronic systolic heart failure (HCC) Chronic systolic heart failure Chronic bronchitis, unspecified chronic bronchitis type (HCC) Moderate major depression (HCC) Major depressive disorder, single episode, moderate Coagulation disorder Other and unspecified coagulation defects Ataxia Lack of coordination Hypokalemia- Primary Hypopotassemia Chronic systolic heart failure (HCC) Chronic systolic heart failure Leg swelling Swelling of limb Primary hypertension Unspecified essential hypertension 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-sided sciatica- Primary Essential hypertension Unspecified essential hypertension Acute myocardial infarction, unspecified IA type, unspecified artery (HCC) Chronic systolic heart failure (HCC) Chronic systolic heart failure Trigeminal neuralgia of left side of face Degenerative disc disease, lumbar documented in this encounter [facility] note* Diagnosis Cough- Primary Gastroesophageal reflux disease, esophagitis presence not specified Essential hypertension Unspecified essential hypertension Chronic maxillary sinusitis Perennial allergic rhinitis, unspecified allergic rhinitis trigger Trigeminal neuralgia of left side of face 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) Non-seasonal allergic rhinitis, unspecified allergic rhinitis trigger- Primary Trigeminal neuralgia of left side of face Cough Gastroesophageal reflux disease, esophagitis presence not specified Vitamin D deficiency Non-seasonal allergic rhinitis, unspecified allergic rhinitis trigger- Primary Cough Gastroesophageal reflux disease, esophagitis presence not specified Acute non-recurrent maxillary sinusitis Essential hypertension Unspecified essential hypertension Essential hypertension- Primary Unspecified essential hypertension Flu vaccine need Chronic kidney disease (CKD), stage III (moderate) (HCC) Chronic kidney disease, Stage III (moderate) Gastroesophageal reflux disease, esophagitis presence not specified Vitamin D deficiency Cough- Primary Upper respiratory tract infection, unspecified type Essential hypertension- Primary Unspecified essential hypertension Osteoporosis, unspecified osteoporosis type, unspecified pathological fracture presence Vitamin D deficiency 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 At low risk for fall Frequent UTI- Primary Urinary tract infection, site not specified 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) Essential hypertension Unspecified essential hypertension Trigeminal neuralgia of left side of face 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 Gastroesophageal reflux disease, esophagitis presence not specified Acute cystitis with hematuria- Primary Trigeminal neuralgia of left side of face Abdominal pain, unspecified abdominal location- Primary Iliocostal friction syndrome Left groin pain Abdominal pain, left lower quadrant Left groin pain Abdominal pain, left lower quadrant Anxiety Anxiety state, unspecified Essential hypertension- Primary Unspecified essential hypertension Gastroesophageal reflux disease, esophagitis presence not specified Frequent UTI Urinary tract infection, site not specified Essential hypertension- Primary Unspecified essential hypertension Gastroesophageal reflux disease, esophagitis presence not specified Chronic kidney disease (CKD), stage III (moderate) (HCC) Chronic kidney disease, Stage III (moderate) Vitamin D deficiency Actinic keratosis Acute ST elevation myocardial infarction (STEMI) of inferolateral wall ([facility])- Primary Acute ST elevation myocardial infarction (STEMI) of inferior wall ([facility]) Acute myocardial infarction ([facility]) Acute myocardial infarction, unspecified site, episode of care unspecified Coronary artery disease without angina pectoris, unspecified vessel or lesion type, unspecified whether [place] or transplanted heart Essential hypertension Unspecified essential hypertension Mixed hyperlipidemia Coronary artery disease without angina pectoris, unspecified vessel or lesion type, unspecified whether [place] or transplanted heart Essential hypertension Unspecified essential hypertension Mixed hyperlipidemia Mixed hyperlipidemia Essential hypertension Unspecified essential hypertension Coronary artery disease without angina pectoris, unspecified vessel or lesion type, unspecified whether soboba or transplanted heart Coronary artery disease 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 Mixed hyperlipidemia Essential hypertension Unspecified essential hypertension Trigeminal neuralgia of left side of face At low risk for fall- Primary 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 (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) 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, without long-term current use of insulin (HCC) Essential hypertension Unspecified essential hypertension Mixed hyperlipidemia Vitamin D deficiency Chronic left SI joint pain Disorders of sacrum Sciatica, left side 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) Mixed hyperlipidemia Essential hypertension Unspecified essential hypertension Coronary artery disease 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 Chronic left SI joint pain- Primary Disorders of sacrum Degenerative disc disease, 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 Depression, unspecified depression type 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-sided sciatica Depression, unspecified depression type Status post right hip replacement Essential hypertension- Primary Unspecified essential hypertension Simple chronic bronchitis ([facility]) Simple chronic bronchitis Uncontrolled pain Coronary artery disease 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 Stage 3 chronic kidney disease, unspecified whether stage 3a or 3b CKD ([facility]) Degenerative disc disease, lumbar Mixed hyperlipidemia Essential hypertension Unspecified essential hypertension Essential hypertension- Primary Unspecified essential hypertension Acute myocardial infarction, unspecified IA type, unspecified artery ([facility]) Essential hypertension Unspecified essential hypertension Dizziness Dizziness and giddiness Closed fracture of multiple pubic rami, unspecified laterality, initial encounter ([facility]) Closed fracture of multiple ribs, unspecified laterality, initial encounter At moderate risk for fall- Primary Dysuria Left hip pain Pain in joint, pelvic region and thigh 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, without long-term current use of insulin ([facility])- Primary Chronic bronchitis, unspecified chronic bronchitis type ([facility]) Stage 3 chronic kidney disease, unspecified whether stage 3a or 3b CKD ([facility]) 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) Trigeminal neuralgia of left side of face Prediabetes Other abnormal glucose Acute ST elevation myocardial infarction (STEMI) of inferior wall ([facility]) Spinal stenosis, 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 neurogenic claudication At low risk for fall- Primary 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) Medicare annual wellness visit, subsequent Right ankle swelling Effusion of ankle and foot joint Frequent UTI- Primary Urinary tract infection, site not specified 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) Chronic bronchitis, unspecified chronic bronchitis type ([facility]) Type 2 diabetes mellitus with chronic kidney disease, without long-term current use of insulin, unspecified CKD stage ([facility]) Stage 3 chronic kidney disease, unspecified whether stage 3a or 3b CKD (HCC) Hyponatremia Hyposmolality and/or hyponatremia Dermatitis Contact dermatitis and other eczema, due to unspecified cause Vulvovaginal discomfort Anxiety- Primary Anxiety state, unspecified Left hip pain Pain in joint, pelvic region and thigh Trigeminal neuralgia of left side of face Dizziness- Primary Dizziness and giddiness Chronic systolic heart failure (HCC) Chronic systolic heart failure Dysuria Trigeminal neuralgia of left side of face Stage 3 chronic kidney disease, unspecified whether stage 3a or 3b CKD (HCC)- Primary 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-sided sciatica Mixed hyperlipidemia Right ankle swelling Effusion of ankle and foot joint Prediabetes Other abnormal glucose Spinal stenosis, 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 neurogenic claudication Hyponatremia Hyposmolality and/or hyponatremia Coronary artery disease 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 Moderate major depression (HCC)- Primary Major depressive disorder, single episode, moderate 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 Trigeminal neuralgia of left side of face Moderate major depression (HCC)- Primary Major depressive disorder, single episode, moderate Mild left ventricular systolic dysfunction Hypertension, unspecified type At low risk for fall- Primary Mild left ventricular systolic dysfunction 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-sided sciatica Medicare annual wellness visit, subsequent Moderate major depression (HCC) Major depressive disorder, single episode, moderate Right ankle swelling Effusion of ankle and foot joint Leg swelling Swelling of limb 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 Chronic systolic heart failure (HCC) Chronic systolic heart failure Chronic bronchitis, unspecified chronic bronchitis type (HCC) Coagulation disorder Other and unspecified coagulation defects Stage 3 chronic kidney disease, unspecified whether stage 3a or 3b CKD (HCC) Primary hypertension Unspecified essential hypertension Spinal stenosis, 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 neurogenic claudication Dysuria Upper respiratory tract infection, unspecified type Frequent UTI Urinary tract infection, site not specified At moderate risk for fall Encounter for follow-up examination after completed treatment for conditions other than malignant neoplasm Preop cardiovascular exam- Primary Pre-operative cardiovascular examination Acute myocardial infarction, unspecified IA type, unspecified artery (HCC) 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 Chronic systolic heart failure (HCC) Chronic systolic heart failure Chronic bronchitis, unspecified chronic bronchitis type (HCC) Moderate major depression (HCC) Major depressive disorder, single episode, moderate Coagulation disorder Other and unspecified coagulation defects Ataxia Lack of coordination Hypokalemia- Primary Hypopotassemia Chronic systolic heart failure (HCC) Chronic systolic heart failure Leg swelling Swelling of limb Primary hypertension Unspecified essential hypertension 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-sided sciatica- Primary Essential hypertension Unspecified essential hypertension Acute myocardial infarction, unspecified IA type, unspecified artery (HCC) Chronic systolic heart failure (HCC) Chronic systolic heart failure Trigeminal neuralgia of left side of face Lumbar spondylosis- Primary Lumbosacral spondylosis without myelopathy documented in this [facility] [facility]* Diagnosis Cough- Primary Gastroesophageal reflux disease, esophagitis presence not specified Essential hypertension Unspecified essential hypertension Chronic maxillary sinusitis Perennial allergic rhinitis, unspecified allergic rhinitis trigger Trigeminal neuralgia of left side of face 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) Non-seasonal allergic rhinitis, unspecified allergic rhinitis trigger- Primary Trigeminal neuralgia of left side of face Cough Gastroesophageal reflux disease, esophagitis presence not specified Vitamin D deficiency Non-seasonal allergic rhinitis, unspecified allergic rhinitis trigger- Primary Cough Gastroesophageal reflux disease, esophagitis presence not specified Acute non-recurrent maxillary sinusitis Essential hypertension Unspecified essential hypertension Essential hypertension- Primary Unspecified essential hypertension Flu vaccine need Chronic kidney disease (CKD), stage III (moderate) (HCC) Chronic kidney disease, Stage III (moderate) Gastroesophageal reflux disease, esophagitis presence not specified Vitamin D deficiency Cough- Primary Upper respiratory tract infection, unspecified type Essential hypertension- Primary Unspecified essential hypertension Osteoporosis, unspecified osteoporosis type, unspecified pathological fracture presence Vitamin D deficiency 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 At low risk for fall Frequent UTI- Primary Urinary tract infection, site not specified 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) Essential hypertension Unspecified essential hypertension Trigeminal neuralgia of left side of face 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 Gastroesophageal reflux disease, esophagitis presence not specified Acute cystitis with hematuria- Primary Trigeminal neuralgia of left side of face Abdominal pain, unspecified abdominal location- Primary Iliocostal friction syndrome Left groin pain Abdominal pain, left lower quadrant Left groin pain Abdominal pain, left lower quadrant Anxiety Anxiety state, unspecified Essential hypertension- Primary Unspecified essential hypertension Gastroesophageal reflux disease, esophagitis presence not specified Frequent UTI Urinary tract infection, site not specified Essential hypertension- Primary Unspecified essential hypertension Gastroesophageal reflux disease, esophagitis presence not specified Chronic kidney disease (CKD), stage III (moderate) ([facility]) Chronic kidney disease, Stage III (moderate) Vitamin D deficiency Actinic keratosis Acute ST elevation myocardial infarction (STEMI) of inferolateral wall ([facility])- Primary Acute ST elevation myocardial infarction (STEMI) of inferior wall ([facility]) Acute myocardial infarction ([facility]) Acute myocardial infarction, unspecified site, episode of care unspecified Coronary artery disease without angina pectoris, unspecified vessel or lesion type, unspecified whether [place] or transplanted heart Essential hypertension Unspecified essential hypertension Mixed hyperlipidemia Coronary artery disease without angina pectoris, unspecified vessel or lesion type, unspecified whether [place] or transplanted heart Essential hypertension Unspecified essential hypertension Mixed hyperlipidemia Mixed hyperlipidemia Essential hypertension Unspecified essential hypertension Coronary artery disease without angina pectoris, unspecified vessel or lesion type, unspecified whether [place] or transplanted heart Coronary artery disease 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 Mixed hyperlipidemia Essential hypertension Unspecified essential hypertension Trigeminal neuralgia of left side of face At low risk for fall- Primary 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 (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) 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, without long-term current use of insulin ([facility]) Essential hypertension Unspecified essential hypertension Mixed hyperlipidemia Vitamin D deficiency Chronic left SI joint pain Disorders of sacrum Sciatica, left side 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) Mixed hyperlipidemia Essential hypertension Unspecified essential hypertension Coronary artery disease 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 Chronic left SI joint pain- Primary Disorders of sacrum Degenerative disc disease, 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 Depression, unspecified depression type 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-sided sciatica Depression, unspecified depression type Status post right hip replacement Essential hypertension- Primary Unspecified essential hypertension Simple chronic bronchitis ([facility]) Simple chronic bronchitis Uncontrolled pain Coronary artery disease 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 Stage 3 chronic kidney disease, unspecified whether stage 3a or 3b CKD ([facility]) Degenerative disc disease, lumbar Mixed hyperlipidemia Essential hypertension Unspecified essential hypertension Essential hypertension- Primary Unspecified essential hypertension Acute myocardial infarction, unspecified IA type, unspecified artery ([facility]) Essential hypertension Unspecified essential hypertension Dizziness Dizziness and giddiness Closed fracture of multiple pubic rami, unspecified laterality, initial encounter ([facility]) Closed fracture of multiple ribs, unspecified laterality, initial encounter At moderate risk for fall- Primary Dysuria Left hip pain Pain in joint, pelvic region and thigh 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, without long-term current use of insulin ([facility])- Primary Chronic bronchitis, unspecified chronic bronchitis type (HCC) Stage 3 chronic kidney disease, unspecified whether stage 3a or 3b CKD ([facility]) 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) Trigeminal neuralgia of left side of face Prediabetes Other abnormal glucose Acute ST elevation myocardial infarction (STEMI) of inferior wall (HCC) Spinal stenosis, 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 neurogenic claudication At low risk for fall- Primary 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) Medicare annual wellness visit, subsequent Right ankle swelling Effusion of ankle and foot joint Frequent UTI- Primary Urinary tract infection, site not specified 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) Chronic bronchitis, unspecified chronic bronchitis type ([facility]) Type 2 diabetes mellitus with chronic kidney disease, without long-term current use of insulin, unspecified CKD stage ([facility]) Stage 3 chronic kidney disease, unspecified whether stage 3a or 3b CKD ([facility]) Hyponatremia Hyposmolality and/or hyponatremia Dermatitis Contact dermatitis and other eczema, due to unspecified cause Vulvovaginal discomfort Anxiety- Primary Anxiety state, unspecified Left hip pain Pain in joint, pelvic region and thigh Trigeminal neuralgia of left side of face Dizziness- Primary Dizziness and giddiness Chronic systolic heart failure (HCC) Chronic systolic heart failure Dysuria Trigeminal neuralgia of left side of face Stage 3 chronic kidney disease, unspecified whether stage 3a or 3b CKD ([facility])- Primary 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-sided sciatica Mixed hyperlipidemia Right ankle swelling Effusion of ankle and foot joint Prediabetes Other abnormal glucose Spinal stenosis, 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 neurogenic claudication Hyponatremia Hyposmolality and/or hyponatremia Coronary artery disease 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 Moderate major depression ([facility])- Primary Major depressive disorder, single episode, moderate 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 Trigeminal neuralgia of left side of face Moderate major depression ([facility])- Primary Major depressive disorder, single episode, moderate Mild left ventricular systolic dysfunction Hypertension, unspecified type At low risk for fall- Primary Mild left ventricular systolic dysfunction 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-sided sciatica Medicare annual wellness visit, subsequent Moderate major depression (HCC) Major depressive disorder, single episode, moderate Right ankle swelling Effusion of ankle and foot joint Leg swelling Swelling of limb 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 Chronic systolic heart failure (HCC) Chronic systolic heart failure Chronic bronchitis, unspecified chronic bronchitis type (HCC) Coagulation disorder Other and unspecified coagulation defects Stage 3 chronic kidney disease, unspecified whether stage 3a or 3b CKD (HCC) Primary hypertension Unspecified essential hypertension Spinal stenosis, 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 neurogenic claudication Dysuria Upper respiratory tract infection, unspecified type Frequent UTI Urinary tract infection, site not specified At moderate risk for fall Encounter for follow-up examination after completed treatment for conditions other than malignant neoplasm Preop cardiovascular exam- Primary Pre-operative cardiovascular examination Acute myocardial infarction, unspecified IA type, unspecified artery (HCC) 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 Chronic systolic heart failure (HCC) Chronic systolic heart failure Chronic bronchitis, unspecified chronic bronchitis type (HCC) Moderate major depression (HCC) Major depressive disorder, single episode, moderate Coagulation disorder Other and unspecified coagulation defects Ataxia Lack of coordination Hypokalemia- Primary Hypopotassemia Chronic systolic heart failure (HCC) Chronic systolic heart failure Leg swelling Swelling of limb Primary hypertension Unspecified essential hypertension 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-sided sciatica- Primary Essential hypertension Unspecified essential hypertension Acute myocardial infarction, unspecified IA type, unspecified artery (HCC) Chronic systolic heart failure (HCC) Chronic systolic heart failure Trigeminal neuralgia of left side of face Lumbar spondylosis- Primary Lumbosacral spondylosis without myelopathy [facility]* Diagnosis Cough- Primary Gastroesophageal reflux disease, esophagitis presence not specified Essential hypertension Unspecified essential hypertension Chronic maxillary sinusitis Perennial allergic rhinitis, unspecified allergic rhinitis trigger Trigeminal neuralgia of left side of face 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) Non-seasonal allergic rhinitis, unspecified allergic rhinitis trigger- Primary Trigeminal neuralgia of left side of face Cough Gastroesophageal reflux disease, esophagitis presence not specified Vitamin D deficiency Non-seasonal allergic rhinitis, unspecified allergic rhinitis trigger- Primary Cough Gastroesophageal reflux disease, esophagitis presence not specified Acute non-recurrent maxillary sinusitis Essential hypertension Unspecified essential hypertension Essential hypertension- Primary Unspecified essential hypertension Flu vaccine need Chronic kidney disease (CKD), stage III (moderate) (HCC) Chronic kidney disease, Stage III (moderate) Gastroesophageal reflux disease, esophagitis presence not specified Vitamin D deficiency Cough- Primary Upper respiratory tract infection, unspecified type Essential hypertension- Primary Unspecified essential hypertension Osteoporosis, unspecified osteoporosis type, unspecified pathological fracture presence Vitamin D deficiency 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 At low risk for fall Frequent UTI- Primary Urinary tract infection, site not specified 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) Essential hypertension Unspecified essential hypertension Trigeminal neuralgia of left side of face 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 Gastroesophageal reflux disease, esophagitis presence not specified Acute cystitis with hematuria- Primary Trigeminal neuralgia of left side of face Abdominal pain, unspecified abdominal location- Primary Iliocostal friction syndrome Left groin pain Abdominal pain, left lower quadrant Left groin pain Abdominal pain, left lower quadrant Anxiety Anxiety state, unspecified Essential hypertension- Primary Unspecified essential hypertension Gastroesophageal reflux disease, esophagitis presence not specified Frequent UTI Urinary tract infection, site not specified Essential hypertension- Primary Unspecified essential hypertension Gastroesophageal reflux disease, esophagitis presence not specified Chronic kidney disease (CKD), stage III (moderate) ([facility]) Chronic kidney disease, Stage III (moderate) Vitamin D deficiency Actinic keratosis Acute ST elevation myocardial infarction (STEMI) of inferolateral wall ([facility])- Primary Acute ST elevation myocardial infarction (STEMI) of inferior wall ([facility]) Acute myocardial infarction ([facility]) Acute myocardial infarction, unspecified site, episode of care unspecified Coronary artery disease without angina pectoris, unspecified vessel or lesion type, unspecified whether [place] or transplanted heart Essential hypertension Unspecified essential hypertension Mixed hyperlipidemia Coronary artery disease without angina pectoris, unspecified vessel or lesion type, unspecified whether [place] or transplanted heart Essential hypertension Unspecified essential hypertension Mixed hyperlipidemia Mixed hyperlipidemia Essential hypertension Unspecified essential hypertension Coronary artery disease without angina pectoris, unspecified vessel or lesion type, unspecified whether [place] or transplanted heart Coronary artery disease 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 Mixed hyperlipidemia Essential hypertension Unspecified essential hypertension Trigeminal neuralgia of left side of face At low risk for fall- Primary 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 (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) 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, without long-term current use of insulin ([facility]) Essential hypertension Unspecified essential hypertension Mixed hyperlipidemia Vitamin D deficiency Chronic left SI joint pain Disorders of sacrum Sciatica, left side 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) Mixed hyperlipidemia Essential hypertension Unspecified essential hypertension Coronary artery disease 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 Chronic left SI joint pain- Primary Disorders of sacrum Degenerative disc disease, 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 Depression, unspecified depression type 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-sided sciatica Depression, unspecified depression type Status post right hip replacement Essential hypertension- Primary Unspecified essential hypertension 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 Uncontrolled pain Coronary artery disease 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 Stage 3 chronic kidney disease, unspecified whether stage 3a or 3b CKD ([facility]) Degenerative disc disease, lumbar Mixed hyperlipidemia Essential hypertension Unspecified essential hypertension Essential hypertension- Primary Unspecified essential hypertension Acute myocardial infarction, unspecified IA type, unspecified artery ([facility]) Essential hypertension Unspecified essential hypertension Dizziness Dizziness and giddiness Closed fracture of multiple pubic rami, unspecified laterality, initial encounter ([facility]) Closed fracture of multiple ribs, unspecified laterality, initial encounter At moderate risk for fall- Primary Dysuria Left hip pain Pain in joint, pelvic region and thigh 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, without long-term current use of insulin ([facility])- Primary Chronic bronchitis, unspecified chronic bronchitis type ([facility]) Stage 3 chronic kidney disease, unspecified whether stage 3a or 3b CKD ([facility]) 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) Trigeminal neuralgia of left side of face Prediabetes Other abnormal glucose Acute ST elevation myocardial infarction (STEMI) of inferior wall ([facility]) Spinal stenosis, 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 neurogenic claudication At low risk for fall- Primary 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) Medicare annual wellness visit, subsequent Right ankle swelling Effusion of ankle and foot joint Frequent UTI- Primary Urinary tract infection, site not specified 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) Chronic bronchitis, unspecified chronic bronchitis type ([facility]) Type 2 diabetes mellitus with chronic kidney disease, without long-term current use of insulin, unspecified CKD stage ([facility]) Stage 3 chronic kidney disease, unspecified whether stage 3a or 3b CKD (HCC) Hyponatremia Hyposmolality and/or hyponatremia Dermatitis Contact dermatitis and other eczema, due to unspecified cause Vulvovaginal discomfort Anxiety- Primary Anxiety state, unspecified Left hip pain Pain in joint, pelvic region and thigh Trigeminal neuralgia of left side of face Dizziness- Primary Dizziness and giddiness Chronic systolic heart failure (HCC) Chronic systolic heart failure Dysuria Trigeminal neuralgia of left side of face Stage 3 chronic kidney disease, unspecified whether stage 3a or 3b CKD (HCC)- Primary 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-sided sciatica Mixed hyperlipidemia Right ankle swelling Effusion of ankle and foot joint Prediabetes Other abnormal glucose Spinal stenosis, 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 neurogenic claudication Hyponatremia Hyposmolality and/or hyponatremia Coronary artery disease 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 Moderate major depression (HCC)- Primary Major depressive disorder, single episode, moderate 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 Trigeminal neuralgia of left side of face Moderate major depression (HCC)- Primary Major depressive disorder, single episode, moderate Mild left ventricular systolic dysfunction Hypertension, unspecified type At low risk for fall- Primary Mild left ventricular systolic dysfunction 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-sided sciatica Medicare annual wellness visit, subsequent Moderate major depression (HCC) Major depressive disorder, single episode, moderate Right ankle swelling Effusion of ankle and foot joint Leg swelling Swelling of limb 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 Chronic systolic heart failure (HCC) Chronic systolic heart failure Chronic bronchitis, unspecified chronic bronchitis type (HCC) Coagulation disorder Other and unspecified coagulation defects Stage 3 chronic kidney disease, unspecified whether stage 3a or 3b CKD (HCC) Primary hypertension Unspecified essential hypertension Spinal stenosis, 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 neurogenic claudication Dysuria Upper respiratory tract infection, unspecified type Frequent UTI Urinary tract infection, site not specified At moderate risk for fall Encounter for follow-up examination after completed treatment for conditions other than malignant neoplasm Preop cardiovascular exam- Primary Pre-operative cardiovascular examination Acute myocardial infarction, unspecified IA type, unspecified artery (HCC) 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 Chronic systolic heart failure (HCC) Chronic systolic heart failure Chronic bronchitis, unspecified chronic bronchitis type (HCC) Moderate major depression (HCC) Major depressive disorder, single episode, moderate Coagulation disorder Other and unspecified coagulation defects Ataxia Lack of coordination Hypokalemia- Primary Hypopotassemia Chronic systolic heart failure (HCC) Chronic systolic heart failure Leg swelling Swelling of limb Primary hypertension Unspecified essential hypertension 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-sided sciatica- Primary Essential hypertension Unspecified essential hypertension Acute myocardial infarction, unspecified IA type, unspecified artery (HCC) Chronic systolic heart failure (HCC) Chronic systolic heart failure Trigeminal neuralgia of left side of face Failed back [facility] 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 [facility] Work Phone: Evaluation note* Diagnosis Cough- Primary Gastroesophageal reflux disease, esophagitis presence not specified Essential hypertension Unspecified essential hypertension Chronic maxillary sinusitis Perennial allergic rhinitis, unspecified allergic rhinitis trigger Trigeminal neuralgia of left side of face 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) Non-seasonal allergic rhinitis, unspecified allergic rhinitis trigger- Primary Trigeminal neuralgia of left side of face Cough Gastroesophageal reflux disease, esophagitis presence not specified Vitamin D deficiency Non-seasonal allergic rhinitis, unspecified allergic rhinitis trigger- Primary Cough Gastroesophageal reflux disease, esophagitis presence not specified Acute non-recurrent maxillary sinusitis Essential hypertension Unspecified essential hypertension Essential hypertension- Primary Unspecified essential hypertension Flu vaccine need Chronic kidney disease (CKD), stage III (moderate) (HCC) Chronic kidney disease, Stage III (moderate) Gastroesophageal reflux disease, esophagitis presence not specified Vitamin D deficiency Cough- Primary Upper respiratory tract infection, unspecified type Essential hypertension- Primary Unspecified essential hypertension Osteoporosis, unspecified osteoporosis type, unspecified pathological fracture presence Vitamin D deficiency 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 At low risk for fall Frequent UTI- Primary Urinary tract infection, site not specified 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) Essential hypertension Unspecified essential hypertension Trigeminal neuralgia of left side of face 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 Gastroesophageal reflux disease, esophagitis presence not specified Acute cystitis with hematuria- Primary Trigeminal neuralgia of left side of face Abdominal pain, unspecified abdominal location- Primary Iliocostal friction syndrome Left groin pain Abdominal pain, left lower quadrant Left groin pain Abdominal pain, left lower quadrant Anxiety Anxiety state, unspecified Essential hypertension- Primary Unspecified essential hypertension Gastroesophageal reflux disease, esophagitis presence not specified Frequent UTI Urinary tract infection, site not specified Essential hypertension- Primary Unspecified essential hypertension Gastroesophageal reflux disease, esophagitis presence not specified Chronic kidney disease (CKD), stage III (moderate) ([facility]) Chronic kidney disease, Stage III (moderate) Vitamin D deficiency Actinic keratosis Acute ST elevation myocardial infarction (STEMI) of inferolateral wall ([facility])- Primary Acute ST elevation myocardial infarction (STEMI) of inferior wall ([facility]) Acute myocardial infarction (HCC) Acute myocardial infarction, unspecified site, episode of care unspecified Coronary artery disease without angina pectoris, unspecified vessel or lesion type, unspecified whether soboba or transplanted heart Essential hypertension Unspecified essential hypertension Mixed hyperlipidemia Coronary artery disease without angina pectoris, unspecified vessel or lesion type, unspecified whether soboba or transplanted heart Essential hypertension Unspecified essential hypertension Mixed hyperlipidemia Mixed hyperlipidemia Essential hypertension Unspecified essential hypertension Coronary artery disease without angina pectoris, unspecified vessel or lesion type, unspecified whether soboba or transplanted heart Coronary artery disease 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 Mixed hyperlipidemia Essential hypertension Unspecified essential hypertension Trigeminal neuralgia of left side of face At low risk for fall- Primary 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 (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) 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, without long-term current use of insulin ([facility]) Essential hypertension Unspecified essential hypertension Mixed hyperlipidemia Vitamin D deficiency Chronic left SI joint pain Disorders of sacrum Sciatica, left side 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) Mixed hyperlipidemia Essential hypertension Unspecified essential hypertension Coronary artery disease 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 Chronic left SI joint pain- Primary Disorders of sacrum Degenerative disc disease, 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 Depression, unspecified depression type 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-sided sciatica Depression, unspecified depression type Status post right hip replacement Essential hypertension- Primary Unspecified essential hypertension 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 Uncontrolled pain Coronary artery disease 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 Stage 3 chronic kidney disease, unspecified whether stage 3a or 3b CKD ([facility]) Degenerative disc disease, lumbar Mixed hyperlipidemia Essential hypertension Unspecified essential hypertension Essential hypertension- Primary Unspecified essential hypertension Acute myocardial infarction, unspecified IA type, unspecified artery ([facility]) Essential hypertension Unspecified essential hypertension Dizziness Dizziness and giddiness Closed fracture of multiple pubic rami, unspecified laterality, initial encounter ([facility]) Closed fracture of multiple ribs, unspecified laterality, initial encounter At moderate risk for fall- Primary Dysuria Left hip pain Pain in joint, pelvic region and thigh 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, without long-term current use of insulin ([facility])- Primary Chronic bronchitis, unspecified chronic bronchitis type ([facility]) Stage 3 chronic kidney disease, unspecified whether stage 3a or 3b CKD ([facility]) 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) Trigeminal neuralgia of left side of face Prediabetes Other abnormal glucose Acute ST elevation myocardial infarction (STEMI) of inferior wall (HCC) Spinal stenosis, 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 neurogenic claudication At low risk for fall- Primary 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) Medicare annual wellness visit, subsequent Right ankle swelling Effusion of ankle and foot joint Frequent UTI- Primary Urinary tract infection, site not specified 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) Chronic bronchitis, unspecified chronic bronchitis type ([facility]) Type 2 diabetes mellitus with chronic kidney disease, without long-term current use of insulin, unspecified CKD stage (HCC) Stage 3 chronic kidney disease, unspecified whether stage 3a or 3b CKD ([facility]) Hyponatremia Hyposmolality and/or hyponatremia Dermatitis Contact dermatitis and other eczema, due to unspecified cause Vulvovaginal discomfort Anxiety- Primary Anxiety state, unspecified Left hip pain Pain in joint, pelvic region and thigh Trigeminal neuralgia of left side of face Dizziness- Primary Dizziness and giddiness Chronic systolic heart failure (HCC) Chronic systolic heart failure Dysuria Trigeminal neuralgia of left side of face Stage 3 chronic kidney disease, unspecified whether stage 3a or 3b CKD ([facility])- Primary 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-sided sciatica Mixed hyperlipidemia Right ankle swelling Effusion of ankle and foot joint Prediabetes Other abnormal glucose Spinal stenosis, 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 neurogenic claudication Hyponatremia Hyposmolality and/or hyponatremia Coronary artery disease 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 Moderate major depression (HCC)- Primary Major depressive disorder, single episode, moderate 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 Trigeminal neuralgia of left side of face Moderate major depression (HCC)- Primary Major depressive disorder, single episode, moderate Mild left ventricular systolic dysfunction Hypertension, unspecified type At low risk for fall- Primary Mild left ventricular systolic dysfunction 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-sided sciatica Medicare annual wellness visit, subsequent Moderate major depression (HCC) Major depressive disorder, single episode, moderate Right ankle swelling Effusion of ankle and foot joint Leg swelling Swelling of limb 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 Chronic systolic heart failure (HCC) Chronic systolic heart failure Chronic bronchitis, unspecified chronic bronchitis type (HCC) Coagulation disorder Other and unspecified coagulation defects Stage 3 chronic kidney disease, unspecified whether stage 3a or 3b CKD (HCC) Primary hypertension Unspecified essential hypertension Spinal stenosis, 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 neurogenic claudication Dysuria Upper respiratory tract infection, unspecified type Frequent UTI Urinary tract infection, site not specified At moderate risk for fall Encounter for follow-up examination after completed treatment for conditions other than malignant neoplasm Preop cardiovascular exam- Primary Pre-operative cardiovascular examination Acute myocardial infarction, unspecified IA type, unspecified artery (HCC) 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 Chronic systolic heart failure (HCC) Chronic systolic heart failure Chronic bronchitis, unspecified chronic bronchitis type (HCC) Moderate major depression (HCC) Major depressive disorder, single episode, moderate Coagulation disorder Other and unspecified coagulation defects Ataxia Lack of coordination Hypokalemia- Primary Hypopotassemia Chronic systolic heart failure (HCC) Chronic systolic heart failure Leg swelling Swelling of limb Primary hypertension Unspecified essential hypertension 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-sided sciatica- Primary Essential hypertension Unspecified essential hypertension Acute myocardial infarction, unspecified IA type, unspecified artery (HCC) Chronic systolic heart failure (HCC) Chronic systolic heart failure Trigeminal neuralgia of left side of face At risk for prolonged QT interval syndrome- Primary Failed back surgical syndrome [facility] Diagnosis Cough- Primary Gastroesophageal reflux disease, esophagitis presence not specified Essential hypertension Unspecified essential hypertension Chronic maxillary sinusitis Perennial allergic rhinitis, unspecified allergic rhinitis trigger Trigeminal neuralgia of left side of face 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) Non-seasonal allergic rhinitis, unspecified allergic rhinitis trigger- Primary Trigeminal neuralgia of left side of face Cough Gastroesophageal reflux disease, esophagitis presence not specified Vitamin D deficiency Non-seasonal allergic rhinitis, unspecified allergic rhinitis trigger- Primary Cough Gastroesophageal reflux disease, esophagitis presence not specified Acute non-recurrent maxillary sinusitis Essential hypertension Unspecified essential hypertension Essential hypertension- Primary Unspecified essential hypertension Flu vaccine need Chronic kidney disease (CKD), stage III (moderate) (HCC) Chronic kidney disease, Stage III (moderate) Gastroesophageal reflux disease, esophagitis presence not specified Vitamin D deficiency Cough- Primary Upper respiratory tract infection, unspecified type Essential hypertension- Primary Unspecified essential hypertension Osteoporosis, unspecified osteoporosis type, unspecified pathological fracture presence Vitamin D deficiency 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 At low risk for fall Frequent UTI- Primary Urinary tract infection, site not specified 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) Essential hypertension Unspecified essential hypertension Trigeminal neuralgia of left side of face 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 Gastroesophageal reflux disease, esophagitis presence not specified Acute cystitis with hematuria- Primary Trigeminal neuralgia of left side of face Abdominal pain, unspecified abdominal location- Primary Iliocostal friction syndrome Left groin pain Abdominal pain, left lower quadrant Left groin pain Abdominal pain, left lower quadrant Anxiety Anxiety state, unspecified Essential hypertension- Primary Unspecified essential hypertension Gastroesophageal reflux disease, esophagitis presence not specified Frequent UTI Urinary tract infection, site not specified Essential hypertension- Primary Unspecified essential hypertension Gastroesophageal reflux disease, esophagitis presence not specified Chronic kidney disease (CKD), stage III (moderate) (HCC) Chronic kidney disease, Stage III (moderate) Vitamin D deficiency Actinic keratosis Acute ST elevation myocardial infarction (STEMI) of inferolateral wall ([facility])- Primary Acute ST elevation myocardial infarction (STEMI) of inferior wall ([facility]) Acute myocardial infarction ([facility]) Acute myocardial infarction, unspecified site, episode of care unspecified Coronary artery disease without angina pectoris, unspecified vessel or lesion type, unspecified whether soboba or transplanted heart Essential hypertension Unspecified essential hypertension Mixed hyperlipidemia Coronary artery disease without angina pectoris, unspecified vessel or lesion type, unspecified whether soboba or transplanted heart Essential hypertension Unspecified essential hypertension Mixed hyperlipidemia Mixed hyperlipidemia Essential hypertension Unspecified essential hypertension Coronary artery disease without angina pectoris, unspecified vessel or lesion type, unspecified whether soboba or transplanted heart Coronary artery disease 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 Mixed hyperlipidemia Essential hypertension Unspecified essential hypertension Trigeminal neuralgia of left side of face At low risk for fall- Primary 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 (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) 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, without long-term current use of insulin (HCC) Essential hypertension Unspecified essential hypertension Mixed hyperlipidemia Vitamin D deficiency Chronic left SI joint pain Disorders of sacrum Sciatica, left side 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) Mixed hyperlipidemia Essential hypertension Unspecified essential hypertension Coronary artery disease 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 Chronic left SI joint pain- Primary Disorders of sacrum Degenerative disc disease, 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 Depression, unspecified depression type 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-sided sciatica Depression, unspecified depression type Status post right hip replacement Essential hypertension- Primary Unspecified essential hypertension Simple chronic bronchitis ([facility]) Simple chronic bronchitis Uncontrolled pain Coronary artery disease 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 Stage 3 chronic kidney disease, unspecified whether stage 3a or 3b CKD ([facility]) Degenerative disc disease, lumbar Mixed hyperlipidemia Essential hypertension Unspecified essential hypertension Essential hypertension- Primary Unspecified essential hypertension Acute myocardial infarction, unspecified IA type, unspecified artery ([facility]) Essential hypertension Unspecified essential hypertension Dizziness Dizziness and giddiness Closed fracture of multiple pubic rami, unspecified laterality, initial encounter ([facility]) Closed fracture of multiple ribs, unspecified laterality, initial encounter At moderate risk for fall- Primary Dysuria Left hip pain Pain in joint, pelvic region and thigh 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, without long-term current use of insulin ([facility])- Primary Chronic bronchitis, unspecified chronic bronchitis type ([facility]) Stage 3 chronic kidney disease, unspecified whether stage 3a or 3b CKD ([facility]) 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) Trigeminal neuralgia of left side of face Prediabetes Other abnormal glucose Acute ST elevation myocardial infarction (STEMI) of inferior wall ([facility]) Spinal stenosis, 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 neurogenic claudication At low risk for fall- Primary 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) Medicare annual wellness visit, subsequent Right ankle swelling Effusion of ankle and foot joint Frequent UTI- Primary Urinary tract infection, site not specified 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) Chronic bronchitis, unspecified chronic bronchitis type ([facility]) Type 2 diabetes mellitus with chronic kidney disease, without long-term current use of insulin, unspecified CKD stage (HCC) Stage 3 chronic kidney disease, unspecified whether stage 3a or 3b CKD (HCC) Hyponatremia Hyposmolality and/or hyponatremia Dermatitis Contact dermatitis and other eczema, due to unspecified cause Vulvovaginal discomfort Anxiety- Primary Anxiety state, unspecified Left hip pain Pain in joint, pelvic region and thigh Trigeminal neuralgia of left side of face Dizziness- Primary Dizziness and giddiness Chronic systolic heart failure (HCC) Chronic systolic heart failure Dysuria Trigeminal neuralgia of left side of face Stage 3 chronic kidney disease, unspecified whether stage 3a or 3b CKD (HCC)- Primary 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-sided sciatica Mixed hyperlipidemia Right ankle swelling Effusion of ankle and foot joint Prediabetes Other abnormal glucose Spinal stenosis, 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 neurogenic claudication Hyponatremia Hyposmolality and/or hyponatremia Coronary artery disease 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 Moderate major depression (HCC)- Primary Major depressive disorder, single episode, moderate 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 Trigeminal neuralgia of left side of face Moderate major depression (HCC)- Primary Major depressive disorder, single episode, moderate Mild left ventricular systolic dysfunction Hypertension, unspecified type At low risk for fall- Primary Mild left ventricular systolic dysfunction 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-sided sciatica Medicare annual wellness visit, subsequent Moderate major depression (HCC) Major depressive disorder, single episode, moderate Right ankle swelling Effusion of ankle and foot joint Leg swelling Swelling of limb 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 Chronic systolic heart failure (HCC) Chronic systolic heart failure Chronic bronchitis, unspecified chronic bronchitis type (HCC) Coagulation disorder Other and unspecified coagulation defects Stage 3 chronic kidney disease, unspecified whether stage 3a or 3b CKD (HCC) Primary hypertension Unspecified essential hypertension Spinal stenosis, 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 neurogenic claudication Dysuria Upper respiratory tract infection, unspecified type Frequent UTI Urinary tract infection, site not specified At moderate risk for fall Encounter for follow-up examination after completed treatment for conditions other than malignant neoplasm Preop cardiovascular exam- Primary Pre-operative cardiovascular examination Acute myocardial infarction, unspecified IA type, unspecified artery (HCC) 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 Chronic systolic heart failure (HCC) Chronic systolic heart failure Chronic bronchitis, unspecified chronic bronchitis type (HCC) Moderate major depression (HCC) Major depressive disorder, single episode, moderate Coagulation disorder Other and unspecified coagulation defects Ataxia Lack of coordination Hypokalemia- Primary Hypopotassemia Chronic systolic heart failure (HCC) Chronic systolic heart failure Leg swelling Swelling of limb Primary hypertension Unspecified essential hypertension 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-sided sciatica- Primary Essential hypertension Unspecified essential hypertension Acute myocardial infarction, unspecified IA type, unspecified artery (HCC) Chronic systolic heart failure (HCC) Chronic systolic heart failure Trigeminal neuralgia of left side of face Primary hypertension- Primary Unspecified essential hypertension Moderate major depression (HCC) Major depressive disorder, single episode, moderate Thyroid nodule 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 [facility] note* Diagnosis Cough- Primary Gastroesophageal reflux disease, esophagitis presence not specified Essential hypertension Unspecified essential hypertension Chronic maxillary sinusitis Perennial allergic rhinitis, unspecified allergic rhinitis trigger Trigeminal neuralgia of left side of face 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) Non-seasonal allergic rhinitis, unspecified allergic rhinitis trigger- Primary Trigeminal neuralgia of left side of face Cough Gastroesophageal reflux disease, esophagitis presence not specified Vitamin D deficiency Non-seasonal allergic rhinitis, unspecified allergic rhinitis trigger- Primary Cough Gastroesophageal reflux disease, esophagitis presence not specified Acute non-recurrent maxillary sinusitis Essential hypertension Unspecified essential hypertension Essential hypertension- Primary Unspecified essential hypertension Flu vaccine need Chronic kidney disease (CKD), stage III (moderate) (HCC) Chronic kidney disease, Stage III (moderate) Gastroesophageal reflux disease, esophagitis presence not specified Vitamin D deficiency Cough- Primary Upper respiratory tract infection, unspecified type Essential hypertension- Primary Unspecified essential hypertension Osteoporosis, unspecified osteoporosis type, unspecified pathological fracture presence Vitamin D deficiency 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 At low risk for fall Frequent UTI- Primary Urinary tract infection, site not specified 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) Essential hypertension Unspecified essential hypertension Trigeminal neuralgia of left side of face 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 Gastroesophageal reflux disease, esophagitis presence not specified Acute cystitis with hematuria- Primary Trigeminal neuralgia of left side of face Abdominal pain, unspecified abdominal location- Primary Iliocostal friction syndrome Left groin pain Abdominal pain, left lower quadrant Left groin pain Abdominal pain, left lower quadrant Anxiety Anxiety state, unspecified Essential hypertension- Primary Unspecified essential hypertension Gastroesophageal reflux disease, esophagitis presence not specified Frequent UTI Urinary tract infection, site not specified Essential hypertension- Primary Unspecified essential hypertension Gastroesophageal reflux disease, esophagitis presence not specified Chronic kidney disease (CKD), stage III (moderate) ([facility]) Chronic kidney disease, Stage III (moderate) Vitamin D deficiency Actinic keratosis Acute ST elevation myocardial infarction (STEMI) of inferolateral wall ([facility])- Primary Acute ST elevation myocardial infarction (STEMI) of inferior wall ([facility]) Acute myocardial infarction ([facility]) Acute myocardial infarction, unspecified site, episode of care unspecified Coronary artery disease without angina pectoris, unspecified vessel or lesion type, unspecified whether soboba or transplanted heart Essential hypertension Unspecified essential hypertension Mixed hyperlipidemia Coronary artery disease without angina pectoris, unspecified vessel or lesion type, unspecified whether sob[place] or transplanted heart Essential hypertension Unspecified essential hypertension Mixed hyperlipidemia Mixed hyperlipidemia Essential hypertension Unspecified essential hypertension Coronary artery disease without angina pectoris, unspecified vessel or lesion type, unspecified whether sob[place] or transplanted heart Coronary artery disease 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 Mixed hyperlipidemia Essential hypertension Unspecified essential hypertension Trigeminal neuralgia of left side of face At low risk for fall- Primary 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 (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) 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, without long-term current use of insulin ([facility]) Essential hypertension Unspecified essential hypertension Mixed hyperlipidemia Vitamin D deficiency Chronic left SI joint pain Disorders of sacrum Sciatica, left side 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) Mixed hyperlipidemia Essential hypertension Unspecified essential hypertension Coronary artery disease 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 Chronic left SI joint pain- Primary Disorders of sacrum Degenerative disc disease, 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 Depression, unspecified depression type 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-sided sciatica Depression, unspecified depression type Status post right hip replacement Essential hypertension- Primary Unspecified essential hypertension Simple chronic bronchitis ([facility]) Simple chronic bronchitis Uncontrolled pain Coronary artery disease 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 Stage 3 chronic kidney disease, unspecified whether stage 3a or 3b CKD ([facility]) Degenerative disc disease, lumbar Mixed hyperlipidemia Essential hypertension Unspecified essential hypertension Essential hypertension- Primary Unspecified essential hypertension Acute myocardial infarction, unspecified IA type, unspecified artery ([facility]) Essential hypertension Unspecified essential hypertension Dizziness Dizziness and giddiness Closed fracture of multiple pubic rami, unspecified laterality, initial encounter ([facility]) Closed fracture of multiple ribs, unspecified laterality, initial encounter At moderate risk for fall- Primary Dysuria Left hip pain Pain in joint, pelvic region and thigh 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, without long-term current use of insulin ([facility])- Primary Chronic bronchitis, unspecified chronic bronchitis type ([facility]) Stage 3 chronic kidney disease, unspecified whether stage 3a or 3b CKD ([facility]) 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) Trigeminal neuralgia of left side of face Prediabetes Other abnormal glucose Acute ST elevation myocardial infarction (STEMI) of inferior wall ([facility]) Spinal stenosis, 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 neurogenic claudication At low risk for fall- Primary 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) Medicare annual wellness visit, subsequent Right ankle swelling Effusion of ankle and foot joint Frequent UTI- Primary Urinary tract infection, site not specified 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) Chronic bronchitis, unspecified chronic bronchitis type ([facility]) Type 2 diabetes mellitus with chronic kidney disease, without long-term current use of insulin, unspecified CKD stage (HCC) Stage 3 chronic kidney disease, unspecified whether stage 3a or 3b CKD ([facility]) Hyponatremia Hyposmolality and/or hyponatremia Dermatitis Contact dermatitis and other eczema, due to unspecified cause Vulvovaginal discomfort Anxiety- Primary Anxiety state, unspecified Left hip pain Pain in joint, pelvic region and thigh Trigeminal neuralgia of left side of face Dizziness- Primary Dizziness and giddiness Chronic systolic heart failure (HCC) Chronic systolic heart failure Dysuria Trigeminal neuralgia of left side of face Stage 3 chronic kidney disease, unspecified whether stage 3a or 3b CKD (HCC)- Primary 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-sided sciatica Mixed hyperlipidemia Right ankle swelling Effusion of ankle and foot joint Prediabetes Other abnormal glucose Spinal stenosis, 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 neurogenic claudication Hyponatremia Hyposmolality and/or hyponatremia Coronary artery disease 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 Moderate major depression (HCC)- Primary Major depressive disorder, single episode, moderate 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 Trigeminal neuralgia of left side of face Moderate major depression (HCC)- Primary Major depressive disorder, single episode, moderate Mild left ventricular systolic dysfunction Hypertension, unspecified type At low risk for fall- Primary Mild left ventricular systolic dysfunction 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-sided sciatica Medicare annual wellness visit, subsequent Moderate major depression (HCC) Major depressive disorder, single episode, moderate Right ankle swelling Effusion of ankle and foot joint Leg swelling Swelling of limb 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 Chronic systolic heart failure (HCC) Chronic systolic heart failure Chronic bronchitis, unspecified chronic bronchitis type (HCC) Coagulation disorder Other and unspecified coagulation defects Stage 3 chronic kidney disease, unspecified whether stage 3a or 3b CKD (HCC) Primary hypertension Unspecified essential hypertension Spinal stenosis, 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 neurogenic claudication Dysuria Upper respiratory tract infection, unspecified type Frequent UTI Urinary tract infection, site not specified At moderate risk for fall Encounter for follow-up examination after completed treatment for conditions other than malignant neoplasm Preop cardiovascular exam- Primary Pre-operative cardiovascular examination Acute myocardial infarction, unspecified IA type, unspecified artery (HCC) 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 Chronic systolic heart failure (HCC) Chronic systolic heart failure Chronic bronchitis, unspecified chronic bronchitis type (HCC) Moderate major depression (HCC) Major depressive disorder, single episode, moderate Coagulation disorder Other and unspecified coagulation defects Ataxia Lack of coordination Hypokalemia- Primary Hypopotassemia Chronic systolic heart failure (HCC) Chronic systolic heart failure Leg swelling Swelling of limb Primary hypertension Unspecified essential hypertension 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-sided sciatica- Primary Essential hypertension Unspecified essential hypertension Acute myocardial infarction, unspecified IA type, unspecified artery (HCC) Chronic systolic heart failure (HCC) Chronic systolic heart failure Trigeminal neuralgia of left side of face Primary hypertension- Primary Unspecified essential hypertension Moderate major depression (HCC) Major depressive disorder, single episode, moderate Thyroid nodule Nontoxic uninodular goiter Coronary artery disease 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- Primary Essential hypertension Unspecified essential hypertension Chronic systolic heart failure (HCC) Chronic systolic heart failure At risk for prolonged QT interval syndrome Hyperlipidemia, unspecified hyperlipidemia type [facility] Diagnosis Cough- Primary Gastroesophageal reflux disease, esophagitis presence not specified Essential hypertension Unspecified essential hypertension Chronic maxillary sinusitis Perennial allergic rhinitis, unspecified allergic rhinitis trigger Trigeminal neuralgia of left side of face 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) Non-seasonal allergic rhinitis, unspecified allergic rhinitis trigger- Primary Trigeminal neuralgia of left side of face Cough Gastroesophageal reflux disease, esophagitis presence not specified Vitamin D deficiency Non-seasonal allergic rhinitis, unspecified allergic rhinitis trigger- Primary Cough Gastroesophageal reflux disease, esophagitis presence not specified Acute non-recurrent maxillary sinusitis Essential hypertension Unspecified essential hypertension Essential hypertension- Primary Unspecified essential hypertension Flu vaccine need Chronic kidney disease (CKD), stage III (moderate) (HCC) Chronic kidney disease, Stage III (moderate) Gastroesophageal reflux disease, esophagitis presence not specified Vitamin D deficiency Cough- Primary Upper respiratory tract infection, unspecified type Essential hypertension- Primary Unspecified essential hypertension Osteoporosis, unspecified osteoporosis type, unspecified pathological fracture presence Vitamin D deficiency 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 At low risk for fall Frequent UTI- Primary Urinary tract infection, site not specified 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) Essential hypertension Unspecified essential hypertension Trigeminal neuralgia of left side of face 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 Gastroesophageal reflux disease, esophagitis presence not specified Acute cystitis with hematuria- Primary Trigeminal neuralgia of left side of face Abdominal pain, unspecified abdominal location- Primary Iliocostal friction syndrome Left groin pain Abdominal pain, left lower quadrant Left groin pain Abdominal pain, left lower quadrant Anxiety Anxiety state, unspecified Essential hypertension- Primary Unspecified essential hypertension Gastroesophageal reflux disease, esophagitis presence not specified Frequent UTI Urinary tract infection, site not specified Essential hypertension- Primary Unspecified essential hypertension Gastroesophageal reflux disease, esophagitis presence not specified Chronic kidney disease (CKD), stage III (moderate) (HCC) Chronic kidney disease, Stage III (moderate) Vitamin D deficiency Actinic keratosis Acute ST elevation myocardial infarction (STEMI) of inferolateral wall ([facility])- Primary Acute ST elevation myocardial infarction (STEMI) of inferior wall ([facility]) Acute myocardial infarction ([facility]) Acute myocardial infarction, unspecified site, episode of care unspecified Coronary artery disease without angina pectoris, unspecified vessel or lesion type, unspecified whether sob[place] or transplanted heart Essential hypertension Unspecified essential hypertension Mixed hyperlipidemia Coronary artery disease without angina pectoris, unspecified vessel or lesion type, unspecified whether sob[place] or transplanted heart Essential hypertension Unspecified essential hypertension Mixed hyperlipidemia Mixed hyperlipidemia Essential hypertension Unspecified essential hypertension Coronary artery disease without angina pectoris, unspecified vessel or lesion type, unspecified whether sob[place] or transplanted heart Coronary artery disease 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 Mixed hyperlipidemia Essential hypertension Unspecified essential hypertension Trigeminal neuralgia of left side of face At low risk for fall- Primary 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 (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) 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, without long-term current use of insulin (HCC) Essential hypertension Unspecified essential hypertension Mixed hyperlipidemia Vitamin D deficiency Chronic left SI joint pain Disorders of sacrum Sciatica, left side 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) Mixed hyperlipidemia Essential hypertension Unspecified essential hypertension Coronary artery disease 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 Chronic left SI joint pain- Primary Disorders of sacrum Degenerative disc disease, 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 Depression, unspecified depression type 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-sided sciatica Depression, unspecified depression type Status post right hip replacement Essential hypertension- Primary Unspecified essential hypertension 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 Uncontrolled pain Coronary artery disease 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 Stage 3 chronic kidney disease, unspecified whether stage 3a or 3b CKD ([facility]) Degenerative disc disease, lumbar Mixed hyperlipidemia Essential hypertension Unspecified essential hypertension Essential hypertension- Primary Unspecified essential hypertension Acute myocardial infarction, unspecified IA type, unspecified artery (HCC) Essential hypertension Unspecified essential hypertension Dizziness Dizziness and giddiness Closed fracture of multiple pubic rami, unspecified laterality, initial encounter ([facility]) Closed fracture of multiple ribs, unspecified laterality, initial encounter At moderate risk for fall- Primary Dysuria Left hip pain Pain in joint, pelvic region and thigh 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, without long-term current use of insulin (HCC)- Primary Chronic bronchitis, unspecified chronic bronchitis type (HCC) Stage 3 chronic kidney disease, unspecified whether stage 3a or 3b CKD ([facility]) 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) Trigeminal neuralgia of left side of face Prediabetes Other abnormal glucose Acute ST elevation myocardial infarction (STEMI) of inferior wall (HCC) Spinal stenosis, 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 neurogenic claudication At low risk for fall- Primary 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) Medicare annual wellness visit, subsequent Right ankle swelling Effusion of ankle and foot joint Frequent UTI- Primary Urinary tract infection, site not specified 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) Chronic bronchitis, unspecified chronic bronchitis type (HCC) Type 2 diabetes mellitus with chronic kidney disease, without long-term current use of insulin, unspecified CKD stage (HCC) Stage 3 chronic kidney disease, unspecified whether stage 3a or 3b CKD (HCC) Hyponatremia Hyposmolality and/or hyponatremia Dermatitis Contact dermatitis and other eczema, due to unspecified cause Vulvovaginal discomfort Anxiety- Primary Anxiety state, unspecified Left hip pain Pain in joint, pelvic region and thigh Trigeminal neuralgia of left side of face Dizziness- Primary Dizziness and giddiness Chronic systolic heart failure (HCC) Chronic systolic heart failure Dysuria Trigeminal neuralgia of left side of face Stage 3 chronic kidney disease, unspecified whether stage 3a or 3b CKD (HCC)- Primary 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-sided sciatica Mixed hyperlipidemia Right ankle swelling Effusion of ankle and foot joint Prediabetes Other abnormal glucose Spinal stenosis, 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 neurogenic claudication Hyponatremia Hyposmolality and/or hyponatremia Coronary artery disease 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 Moderate major depression (HCC)- Primary Major depressive disorder, single episode, moderate 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 Trigeminal neuralgia of left side of face Moderate major depression (HCC)- Primary Major depressive disorder, single episode, moderate Mild left ventricular systolic dysfunction Hypertension, unspecified type At low risk for fall- Primary Mild left ventricular systolic dysfunction 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-sided sciatica Medicare annual wellness visit, subsequent Moderate major depression (HCC) Major depressive disorder, single episode, moderate Right ankle swelling Effusion of ankle and foot joint Leg swelling Swelling of limb 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 Chronic systolic heart failure (HCC) Chronic systolic heart failure Chronic bronchitis, unspecified chronic bronchitis type (HCC) Coagulation disorder Other and unspecified coagulation defects Stage 3 chronic kidney disease, unspecified whether stage 3a or 3b CKD (HCC) Primary hypertension Unspecified essential hypertension Spinal stenosis, 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 neurogenic claudication Dysuria Upper respiratory tract infection, unspecified type Frequent UTI Urinary tract infection, site not specified At moderate risk for fall Encounter for follow-up examination after completed treatment for conditions other than malignant neoplasm Preop cardiovascular exam- Primary Pre-operative cardiovascular examination Acute myocardial infarction, unspecified IA type, unspecified artery (HCC) 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 Chronic systolic heart failure (HCC) Chronic systolic heart failure Chronic bronchitis, unspecified chronic bronchitis type (HCC) Moderate major depression (HCC) Major depressive disorder, single episode, moderate Coagulation disorder Other and unspecified coagulation defects Ataxia Lack of coordination Hypokalemia- Primary Hypopotassemia Chronic systolic heart failure (HCC) Chronic systolic heart failure Leg swelling Swelling of limb Primary hypertension Unspecified essential hypertension 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-sided sciatica- Primary Essential hypertension Unspecified essential hypertension Acute myocardial infarction, unspecified IA type, unspecified artery (HCC) Chronic systolic heart failure (HCC) Chronic systolic heart failure Trigeminal neuralgia of left side of face Primary hypertension- Primary Unspecified essential hypertension Moderate major depression (HCC) Major depressive disorder, single episode, moderate Thyroid nodule Nontoxic uninodular goiter Failed back surgical [facility] Diagnosis Cough- Primary Gastroesophageal reflux disease, esophagitis presence not specified Essential hypertension Unspecified essential hypertension Chronic maxillary sinusitis Perennial allergic rhinitis, unspecified allergic rhinitis trigger Trigeminal neuralgia of left side of face 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) Non-seasonal allergic rhinitis, unspecified allergic rhinitis trigger- Primary Trigeminal neuralgia of left side of face Cough Gastroesophageal reflux disease, esophagitis presence not specified Vitamin D deficiency Non-seasonal allergic rhinitis, unspecified allergic rhinitis trigger- Primary Cough Gastroesophageal reflux disease, esophagitis presence not specified Acute non-recurrent maxillary sinusitis Essential hypertension Unspecified essential hypertension Essential hypertension- Primary Unspecified essential hypertension Flu vaccine need Chronic kidney disease (CKD), stage III (moderate) (HCC) Chronic kidney disease, Stage III (moderate) Gastroesophageal reflux disease, esophagitis presence not specified Vitamin D deficiency Cough- Primary Upper respiratory tract infection, unspecified type Essential hypertension- Primary Unspecified essential hypertension Osteoporosis, unspecified osteoporosis type, unspecified pathological fracture presence Vitamin D deficiency 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 At low risk for fall Frequent UTI- Primary Urinary tract infection, site not specified 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) Essential hypertension Unspecified essential hypertension Trigeminal neuralgia of left side of face 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 Gastroesophageal reflux disease, esophagitis presence not specified Acute cystitis with hematuria- Primary Trigeminal neuralgia of left side of face Abdominal pain, unspecified abdominal location- Primary Iliocostal friction syndrome Left groin pain Abdominal pain, left lower quadrant Left groin pain Abdominal pain, left lower quadrant Anxiety Anxiety state, unspecified Essential hypertension- Primary Unspecified essential hypertension Gastroesophageal reflux disease, esophagitis presence not specified Frequent UTI Urinary tract infection, site not specified Essential hypertension- Primary Unspecified essential hypertension Gastroesophageal reflux disease, esophagitis presence not specified Chronic kidney disease (CKD), stage III (moderate) ([facility]) Chronic kidney disease, Stage III (moderate) Vitamin D deficiency Actinic keratosis Acute ST elevation myocardial infarction (STEMI) of inferolateral wall ([facility])- Primary Acute ST elevation myocardial infarction (STEMI) of inferior wall ([facility]) Acute myocardial infarction ([facility]) Acute myocardial infarction, unspecified site, episode of care unspecified Coronary artery disease without angina pectoris, unspecified vessel or lesion type, unspecified whether soboba or transplanted heart Essential hypertension Unspecified essential hypertension Mixed hyperlipidemia Coronary artery disease without angina pectoris, unspecified vessel or lesion type, unspecified whether sob[place] or transplanted heart Essential hypertension Unspecified essential hypertension Mixed hyperlipidemia Mixed hyperlipidemia Essential hypertension Unspecified essential hypertension Coronary artery disease without angina pectoris, unspecified vessel or lesion type, unspecified whether sob[place] or transplanted heart Coronary artery disease 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 Mixed hyperlipidemia Essential hypertension Unspecified essential hypertension Trigeminal neuralgia of left side of face At low risk for fall- Primary 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 (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) 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, without long-term current use of insulin ([facility]) Essential hypertension Unspecified essential hypertension Mixed hyperlipidemia Vitamin D deficiency Chronic left SI joint pain Disorders of sacrum Sciatica, left side 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) Mixed hyperlipidemia Essential hypertension Unspecified essential hypertension Coronary artery disease 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 Chronic left SI joint pain- Primary Disorders of sacrum Degenerative disc disease, 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 Depression, unspecified depression type 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-sided sciatica Depression, unspecified depression type Status post right hip replacement Essential hypertension- Primary Unspecified essential hypertension 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 Uncontrolled pain Coronary artery disease 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 Stage 3 chronic kidney disease, unspecified whether stage 3a or 3b CKD ([facility]) Degenerative disc disease, lumbar Mixed hyperlipidemia Essential hypertension Unspecified essential hypertension Essential hypertension- Primary Unspecified essential hypertension Acute myocardial infarction, unspecified IA type, unspecified artery (HCC) Essential hypertension Unspecified essential hypertension Dizziness Dizziness and giddiness Closed fracture of multiple pubic rami, unspecified laterality, initial encounter ([facility]) Closed fracture of multiple ribs, unspecified laterality, initial encounter At moderate risk for fall- Primary Dysuria Left hip pain Pain in joint, pelvic region and thigh 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, without long-term current use of insulin ([facility])- Primary Chronic bronchitis, unspecified chronic bronchitis type ([facility]) Stage 3 chronic kidney disease, unspecified whether stage 3a or 3b CKD ([facility]) 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) Trigeminal neuralgia of left side of face Prediabetes Other abnormal glucose Acute ST elevation myocardial infarction (STEMI) of inferior wall ([facility]) Spinal stenosis, 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 neurogenic claudication At low risk for fall- Primary 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) Medicare annual wellness visit, subsequent Right ankle swelling Effusion of ankle and foot joint Frequent UTI- Primary Urinary tract infection, site not specified 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) Chronic bronchitis, unspecified chronic bronchitis type ([facility]) Type 2 diabetes mellitus with chronic kidney disease, without long-term current use of insulin, unspecified CKD stage ([facility]) Stage 3 chronic kidney disease, unspecified whether stage 3a or 3b CKD ([facility]) Hyponatremia Hyposmolality and/or hyponatremia Dermatitis Contact dermatitis and other eczema, due to unspecified cause Vulvovaginal discomfort Anxiety- Primary Anxiety state, unspecified Left hip pain Pain in joint, pelvic region and thigh Trigeminal neuralgia of left side of face Dizziness- Primary Dizziness and giddiness Chronic systolic heart failure (HCC) Chronic systolic heart failure Dysuria Trigeminal neuralgia of left side of face Stage 3 chronic kidney disease, unspecified whether stage 3a or 3b CKD ([facility])- Primary 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-sided sciatica Mixed hyperlipidemia Right ankle swelling Effusion of ankle and foot joint Prediabetes Other abnormal glucose Spinal stenosis, 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 neurogenic claudication Hyponatremia Hyposmolality and/or hyponatremia Coronary artery disease 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 Moderate major depression (HCC)- Primary Major depressive disorder, single episode, moderate 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 Trigeminal neuralgia of left side of face Moderate major depression (HCC)- Primary Major depressive disorder, single episode, moderate Mild left ventricular systolic dysfunction Hypertension, unspecified type At low risk for fall- Primary Mild left ventricular systolic dysfunction 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-sided sciatica Medicare annual wellness visit, subsequent Moderate major depression (HCC) Major depressive disorder, single episode, moderate Right ankle swelling Effusion of ankle and foot joint Leg swelling Swelling of limb 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 Chronic systolic heart failure (HCC) Chronic systolic heart failure Chronic bronchitis, unspecified chronic bronchitis type (HCC) Coagulation disorder Other and unspecified coagulation defects Stage 3 chronic kidney disease, unspecified whether stage 3a or 3b CKD (HCC) Primary hypertension Unspecified essential hypertension Spinal stenosis, 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 neurogenic claudication Dysuria Upper respiratory tract infection, unspecified type Frequent UTI Urinary tract infection, site not specified At moderate risk for fall Encounter for follow-up examination after completed treatment for conditions other than malignant neoplasm Preop cardiovascular exam- Primary Pre-operative cardiovascular examination Acute myocardial infarction, unspecified IA type, unspecified artery (HCC) 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 Chronic systolic heart failure (HCC) Chronic systolic heart failure Chronic bronchitis, unspecified chronic bronchitis type (HCC) Moderate major depression (HCC) Major depressive disorder, single episode, moderate Coagulation disorder Other and unspecified coagulation defects Ataxia Lack of coordination Hypokalemia- Primary Hypopotassemia Chronic systolic heart failure (HCC) Chronic systolic heart failure Leg swelling Swelling of limb Primary hypertension Unspecified essential hypertension 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-sided sciatica- Primary Essential hypertension Unspecified essential hypertension Acute myocardial infarction, unspecified IA type, unspecified artery (HCC) Chronic systolic heart failure (HCC) Chronic systolic heart failure Trigeminal neuralgia of left side of face Primary hypertension- Primary Unspecified essential hypertension Moderate major depression (HCC) Major depressive disorder, single episode, moderate Thyroid nodule Nontoxic uninodular goiter Medicare annual wellness visit, subsequent- Primary Spinal stenosis, 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 neurogenic claudication Osteoporosis, unspecified osteoporosis type, unspecified pathological fracture presence Dementia, unspecified dementia severity, unspecified dementia type, unspecified whether behavioral, psychotic, or mood disturbance or anxiety (HCC) Moderate major depression (HCC) Major depressive disorder, single episode, moderate Dizziness Dizziness and giddiness At moderate risk for fall Abnormal findings on diagnostic imaging of other specified body structures Abnormal finding of blood chemistry, unspecified At high risk for falls documented in this [facility]* Diagnosis Cough- Primary Gastroesophageal reflux disease, esophagitis presence not specified Essential hypertension Unspecified essential hypertension Chronic maxillary sinusitis Perennial allergic rhinitis, unspecified allergic rhinitis trigger Trigeminal neuralgia of left side of face 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) Non-seasonal allergic rhinitis, unspecified allergic rhinitis trigger- Primary Trigeminal neuralgia of left side of face Cough Gastroesophageal reflux disease, esophagitis presence not specified Vitamin D deficiency Non-seasonal allergic rhinitis, unspecified allergic rhinitis trigger- Primary Cough Gastroesophageal reflux disease, esophagitis presence not specified Acute non-recurrent maxillary sinusitis Essential hypertension Unspecified essential hypertension Essential hypertension- Primary Unspecified essential hypertension Flu vaccine need Chronic kidney disease (CKD), stage III (moderate) (HCC) Chronic kidney disease, Stage III (moderate) Gastroesophageal reflux disease, esophagitis presence not specified Vitamin D deficiency Cough- Primary Upper respiratory tract infection, unspecified type Essential hypertension- Primary Unspecified essential hypertension Osteoporosis, unspecified osteoporosis type, unspecified pathological fracture presence Vitamin D deficiency 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 At low risk for fall Frequent UTI- Primary Urinary tract infection, site not specified 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) Essential hypertension Unspecified essential hypertension Trigeminal neuralgia of left side of face 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 Gastroesophageal reflux disease, esophagitis presence not specified Acute cystitis with hematuria- Primary Trigeminal neuralgia of left side of face Abdominal pain, unspecified abdominal location- Primary Iliocostal friction syndrome Left groin pain Abdominal pain, left lower quadrant Left groin pain Abdominal pain, left lower quadrant Anxiety Anxiety state, unspecified Essential hypertension- Primary Unspecified essential hypertension Gastroesophageal reflux disease, esophagitis presence not specified Frequent UTI Urinary tract infection, site not specified Essential hypertension- Primary Unspecified essential hypertension Gastroesophageal reflux disease, esophagitis presence not specified Chronic kidney disease (CKD), stage III (moderate) (HCC) Chronic kidney disease, Stage III (moderate) Vitamin D deficiency Actinic keratosis Acute ST elevation myocardial infarction (STEMI) of inferolateral wall (HCC)- Primary Acute ST elevation myocardial infarction (STEMI) of inferior wall (HCC) Acute myocardial infarction (HCC) Acute myocardial infarction, unspecified site, episode of care unspecified Coronary artery disease without angina pectoris, unspecified vessel or lesion type, unspecified whether sob[place] or transplanted heart Essential hypertension Unspecified essential hypertension Mixed hyperlipidemia Coronary artery disease without angina pectoris, unspecified vessel or lesion type, unspecified whether [place] or transplanted heart Essential hypertension Unspecified essential hypertension Mixed hyperlipidemia Mixed hyperlipidemia Essential hypertension Unspecified essential hypertension Coronary artery disease without angina pectoris, unspecified vessel or lesion type, unspecified whether sob[place] or transplanted heart Coronary artery disease 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 Mixed hyperlipidemia Essential hypertension Unspecified essential hypertension Trigeminal neuralgia of left side of face At low risk for fall- Primary 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 (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) 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, without long-term current use of insulin ([facility]) Essential hypertension Unspecified essential hypertension Mixed hyperlipidemia Vitamin D deficiency Chronic left SI joint pain Disorders of sacrum Sciatica, left side 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) Mixed hyperlipidemia Essential hypertension Unspecified essential hypertension Coronary artery disease 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 Chronic left SI joint pain- Primary Disorders of sacrum Degenerative disc disease, 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 Depression, unspecified depression type 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-sided sciatica Depression, unspecified depression type Status post right hip replacement Essential hypertension- Primary Unspecified essential hypertension 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 Uncontrolled pain Coronary artery disease 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 Stage 3 chronic kidney disease, unspecified whether stage 3a or 3b CKD ([facility]) Degenerative disc disease, lumbar Mixed hyperlipidemia Essential hypertension Unspecified essential hypertension Essential hypertension- Primary Unspecified essential hypertension Acute myocardial infarction, unspecified IA type, unspecified artery (HCC) Essential hypertension Unspecified essential hypertension Dizziness Dizziness and giddiness Closed fracture of multiple pubic rami, unspecified laterality, initial encounter ([facility]) Closed fracture of multiple ribs, unspecified laterality, initial encounter At moderate risk for fall- Primary Dysuria Left hip pain Pain in joint, pelvic region and thigh 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, without long-term current use of insulin (HCC)- Primary Chronic bronchitis, unspecified chronic bronchitis type (HCC) Stage 3 chronic kidney disease, unspecified whether stage 3a or 3b CKD (HCC) 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) Trigeminal neuralgia of left side of face Prediabetes Other abnormal glucose Acute ST elevation myocardial infarction (STEMI) of inferior wall (HCC) Spinal stenosis, 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 neurogenic claudication At low risk for fall- Primary 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) Medicare annual wellness visit, subsequent Right ankle swelling Effusion of ankle and foot joint Frequent UTI- Primary Urinary tract infection, site not specified 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) Chronic bronchitis, unspecified chronic bronchitis type (HCC) Type 2 diabetes mellitus with chronic kidney disease, without long-term current use of insulin, unspecified CKD stage (HCC) Stage 3 chronic kidney disease, unspecified whether stage 3a or 3b CKD ([facility]) Hyponatremia Hyposmolality and/or hyponatremia Dermatitis Contact dermatitis and other eczema, due to unspecified cause Vulvovaginal discomfort Anxiety- Primary Anxiety state, unspecified Left hip pain Pain in joint, pelvic region and thigh Trigeminal neuralgia of left side of face Dizziness- Primary Dizziness and giddiness Chronic systolic heart failure (HCC) Chronic systolic heart failure Dysuria Trigeminal neuralgia of left side of face Stage 3 chronic kidney disease, unspecified whether stage 3a or 3b CKD (HCC)- Primary 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-sided sciatica Mixed hyperlipidemia Right ankle swelling Effusion of ankle and foot joint Prediabetes Other abnormal glucose Spinal stenosis, 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 neurogenic claudication Hyponatremia Hyposmolality and/or hyponatremia Coronary artery disease 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 Moderate major depression (HCC)- Primary Major depressive disorder, single episode, moderate 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 Trigeminal neuralgia of left side of face Moderate major depression (HCC)- Primary Major depressive disorder, single episode, moderate Mild left ventricular systolic dysfunction Hypertension, unspecified type At low risk for fall- Primary Mild left ventricular systolic dysfunction 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-sided sciatica Medicare annual wellness visit, subsequent Moderate major depression (HCC) Major depressive disorder, single episode, moderate Right ankle swelling Effusion of ankle and foot joint Leg swelling Swelling of limb 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 Chronic systolic heart failure (HCC) Chronic systolic heart failure Chronic bronchitis, unspecified chronic bronchitis type (HCC) Coagulation disorder Other and unspecified coagulation defects Stage 3 chronic kidney disease, unspecified whether stage 3a or 3b CKD (HCC) Primary hypertension Unspecified essential hypertension Spinal stenosis, 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 neurogenic claudication Dysuria Upper respiratory tract infection, unspecified type Frequent UTI Urinary tract infection, site not specified At moderate risk for fall Encounter for follow-up examination after completed treatment for conditions other than malignant neoplasm Preop cardiovascular exam- Primary Pre-operative cardiovascular examination Acute myocardial infarction, unspecified IA type, unspecified artery (HCC) 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 Chronic systolic heart failure (HCC) Chronic systolic heart failure Chronic bronchitis, unspecified chronic bronchitis type (HCC) Moderate major depression (HCC) Major depressive disorder, single episode, moderate Coagulation disorder Other and unspecified coagulation defects Ataxia Lack of coordination Hypokalemia- Primary Hypopotassemia Chronic systolic heart failure (HCC) Chronic systolic heart failure Leg swelling Swelling of limb Primary hypertension Unspecified essential hypertension 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-sided sciatica- Primary Essential hypertension Unspecified essential hypertension Acute myocardial infarction, unspecified IA type, unspecified artery (HCC) Chronic systolic heart failure (HCC) Chronic systolic heart failure Trigeminal neuralgia of left side of face Primary hypertension- Primary Unspecified essential hypertension Moderate major depression (HCC) Major depressive disorder, single episode, moderate Thyroid nodule Nontoxic uninodular goiter Medicare annual wellness visit, subsequent- Primary Spinal stenosis, 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 neurogenic claudication Osteoporosis, unspecified osteoporosis type, unspecified pathological fracture presence Dementia, unspecified dementia severity, unspecified dementia type, unspecified whether behavioral, psychotic, or mood disturbance or anxiety (HCC) Moderate major depression (HCC) Major depressive disorder, single episode, moderate Dizziness Dizziness and giddiness At moderate risk for fall Abnormal findings on diagnostic imaging of other specified body structures Abnormal finding of blood chemistry, unspecified At high risk for falls Failed back surgical syndrome [facility]* Diagnosis Cough- Primary Gastroesophageal reflux disease, esophagitis presence not specified Essential hypertension Unspecified essential hypertension Chronic maxillary sinusitis Perennial allergic rhinitis, unspecified allergic rhinitis trigger Trigeminal neuralgia of left side of face 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) Non-seasonal allergic rhinitis, unspecified allergic rhinitis trigger- Primary Trigeminal neuralgia of left side of face Cough Gastroesophageal reflux disease, esophagitis presence not specified Vitamin D deficiency Non-seasonal allergic rhinitis, unspecified allergic rhinitis trigger- Primary Cough Gastroesophageal reflux disease, esophagitis presence not specified Acute non-recurrent maxillary sinusitis Essential hypertension Unspecified essential hypertension Essential hypertension- Primary Unspecified essential hypertension Flu vaccine need Chronic kidney disease (CKD), stage III (moderate) (HCC) Chronic kidney disease, Stage III (moderate) Gastroesophageal reflux disease, esophagitis presence not specified Vitamin D deficiency Cough- Primary Upper respiratory tract infection, unspecified type Essential hypertension- Primary Unspecified essential hypertension Osteoporosis, unspecified osteoporosis type, unspecified pathological fracture presence Vitamin D deficiency 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 At low risk for fall Frequent UTI- Primary Urinary tract infection, site not specified 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) Essential hypertension Unspecified essential hypertension Trigeminal neuralgia of left side of face 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 Gastroesophageal reflux disease, esophagitis presence not specified Acute cystitis with hematuria- Primary Trigeminal neuralgia of left side of face Abdominal pain, unspecified abdominal location- Primary Iliocostal friction syndrome Left groin pain Abdominal pain, left lower quadrant Left groin pain Abdominal pain, left lower quadrant Anxiety Anxiety state, unspecified Essential hypertension- Primary Unspecified essential hypertension Gastroesophageal reflux disease, esophagitis presence not specified Frequent UTI Urinary tract infection, site not specified Essential hypertension- Primary Unspecified essential hypertension Gastroesophageal reflux disease, esophagitis presence not specified Chronic kidney disease (CKD), stage III (moderate) (HCC) Chronic kidney disease, Stage III (moderate) Vitamin D deficiency Actinic keratosis Acute ST elevation myocardial infarction (STEMI) of inferolateral wall ([facility])- Primary Acute ST elevation myocardial infarction (STEMI) of inferior wall (HCC) Acute myocardial infarction (HCC) Acute myocardial infarction, unspecified site, episode of care unspecified Coronary artery disease without angina pectoris, unspecified vessel or lesion type, unspecified whether soboba or transplanted heart Essential hypertension Unspecified essential hypertension Mixed hyperlipidemia Coronary artery disease without angina pectoris, unspecified vessel or lesion type, unspecified whether soboba or transplanted heart Essential hypertension Unspecified essential hypertension Mixed hyperlipidemia Mixed hyperlipidemia Essential hypertension Unspecified essential hypertension Coronary artery disease without angina pectoris, unspecified vessel or lesion type, unspecified whether soboba or transplanted heart Coronary artery disease 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 Mixed hyperlipidemia Essential hypertension Unspecified essential hypertension Trigeminal neuralgia of left side of face At low risk for fall- Primary 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 (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) 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, without long-term current use of insulin (HCC) Essential hypertension Unspecified essential hypertension Mixed hyperlipidemia Vitamin D deficiency Chronic left SI joint pain Disorders of sacrum Sciatica, left side 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) Mixed hyperlipidemia Essential hypertension Unspecified essential hypertension Coronary artery disease 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 Chronic left SI joint pain- Primary Disorders of sacrum Degenerative disc disease, 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 Depression, unspecified depression type 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-sided sciatica Depression, unspecified depression type Status post right hip replacement Essential hypertension- Primary Unspecified essential hypertension 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 Uncontrolled pain Coronary artery disease 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 Stage 3 chronic kidney disease, unspecified whether stage 3a or 3b CKD ([facility]) Degenerative disc disease, lumbar Mixed hyperlipidemia Essential hypertension Unspecified essential hypertension Essential hypertension- Primary Unspecified essential hypertension Acute myocardial infarction, unspecified IA type, unspecified artery (HCC) Essential hypertension Unspecified essential hypertension Dizziness Dizziness and giddiness Closed fracture of multiple pubic rami, unspecified laterality, initial encounter ([facility]) Closed fracture of multiple ribs, unspecified laterality, initial encounter At moderate risk for fall- Primary Dysuria Left hip pain Pain in joint, pelvic region and thigh 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, without long-term current use of insulin (HCC)- Primary Chronic bronchitis, unspecified chronic bronchitis type (HCC) Stage 3 chronic kidney disease, unspecified whether stage 3a or 3b CKD ([facility]) 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) Trigeminal neuralgia of left side of face Prediabetes Other abnormal glucose Acute ST elevation myocardial infarction (STEMI) of inferior wall (HCC) Spinal stenosis, 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 neurogenic claudication At low risk for fall- Primary 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) Medicare annual wellness visit, subsequent Right ankle swelling Effusion of ankle and foot joint Frequent UTI- Primary Urinary tract infection, site not specified 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) Chronic bronchitis, unspecified chronic bronchitis type (HCC) Type 2 diabetes mellitus with chronic kidney disease, without long-term current use of insulin, unspecified CKD stage (HCC) Stage 3 chronic kidney disease, unspecified whether stage 3a or 3b CKD (HCC) Hyponatremia Hyposmolality and/or hyponatremia Dermatitis Contact dermatitis and other eczema, due to unspecified cause Vulvovaginal discomfort Anxiety- Primary Anxiety state, unspecified Left hip pain Pain in joint, pelvic region and thigh Trigeminal neuralgia of left side of face Dizziness- Primary Dizziness and giddiness Chronic systolic heart failure (HCC) Chronic systolic heart failure Dysuria Trigeminal neuralgia of left side of face Stage 3 chronic kidney disease, unspecified whether stage 3a or 3b CKD (HCC)- Primary 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-sided sciatica Mixed hyperlipidemia Right ankle swelling Effusion of ankle and foot joint Prediabetes Other abnormal glucose Spinal stenosis, 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 neurogenic claudication Hyponatremia Hyposmolality and/or hyponatremia Coronary artery disease 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 Moderate major depression (HCC)- Primary Major depressive disorder, single episode, moderate 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 Trigeminal neuralgia of left side of face Moderate major depression (HCC)- Primary Major depressive disorder, single episode, moderate Mild left ventricular systolic dysfunction Hypertension, unspecified type At low risk for fall- Primary Mild left ventricular systolic dysfunction 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-sided sciatica Medicare annual wellness visit, subsequent Moderate major depression (HCC) Major depressive disorder, single episode, moderate Right ankle swelling Effusion of ankle and foot joint Leg swelling Swelling of limb 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 Chronic systolic heart failure (HCC) Chronic systolic heart failure Chronic bronchitis, unspecified chronic bronchitis type (HCC) Coagulation disorder Other and unspecified coagulation defects Stage 3 chronic kidney disease, unspecified whether stage 3a or 3b CKD (HCC) Primary hypertension Unspecified essential hypertension Spinal stenosis, 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 neurogenic claudication Dysuria Upper respiratory tract infection, unspecified type Frequent UTI Urinary tract infection, site not specified At moderate risk for fall Encounter for follow-up examination after completed treatment for conditions other than malignant neoplasm Preop cardiovascular exam- Primary Pre-operative cardiovascular examination Acute myocardial infarction, unspecified IA type, unspecified artery (HCC) 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 Chronic systolic heart failure (HCC) Chronic systolic heart failure Chronic bronchitis, unspecified chronic bronchitis type (HCC) Moderate major depression (HCC) Major depressive disorder, single episode, moderate Coagulation disorder Other and unspecified coagulation defects Ataxia Lack of coordination Hypokalemia- Primary Hypopotassemia Chronic systolic heart failure (HCC) Chronic systolic heart failure Leg swelling Swelling of limb Primary hypertension Unspecified essential hypertension 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-sided sciatica- Primary Essential hypertension Unspecified essential hypertension Acute myocardial infarction, unspecified IA type, unspecified artery (HCC) Chronic systolic heart failure (HCC) Chronic systolic heart failure Trigeminal neuralgia of left side of face Primary hypertension- Primary Unspecified essential hypertension Moderate major depression (HCC) Major depressive disorder, single episode, moderate Thyroid nodule Nontoxic uninodular goiter Medicare annual wellness visit, subsequent- Primary Spinal stenosis, 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 neurogenic claudication Osteoporosis, unspecified osteoporosis type, unspecified pathological fracture presence Dementia, unspecified dementia severity, unspecified dementia type, unspecified whether behavioral, psychotic, or mood disturbance or anxiety (HCC) Moderate major depression (HCC) Major depressive disorder, single episode, moderate Dizziness Dizziness and giddiness At moderate risk for fall Abnormal findings on diagnostic imaging of other specified body structures Abnormal finding of blood chemistry, unspecified At high risk for falls Failed back surgical syndrome [facility] Diagnosis Cough- Primary Gastroesophageal reflux disease, esophagitis presence not specified Essential hypertension Unspecified essential hypertension Chronic maxillary sinusitis Perennial allergic rhinitis, unspecified allergic rhinitis trigger Trigeminal neuralgia of left side of face 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) Non-seasonal allergic rhinitis, unspecified allergic rhinitis trigger- Primary Trigeminal neuralgia of left side of face Cough Gastroesophageal reflux disease, esophagitis presence not specified Vitamin D deficiency Non-seasonal allergic rhinitis, unspecified allergic rhinitis trigger- Primary Cough Gastroesophageal reflux disease, esophagitis presence not specified Acute non-recurrent maxillary sinusitis Essential hypertension Unspecified essential hypertension Essential hypertension- Primary Unspecified essential hypertension Flu vaccine need Chronic kidney disease (CKD), stage III (moderate) (HCC) Chronic kidney disease, Stage III (moderate) Gastroesophageal reflux disease, esophagitis presence not specified Vitamin D deficiency Cough- Primary Upper respiratory tract infection, unspecified type Essential hypertension- Primary Unspecified essential hypertension Osteoporosis, unspecified osteoporosis type, unspecified pathological fracture presence Vitamin D deficiency 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 At low risk for fall Frequent UTI- Primary Urinary tract infection, site not specified 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) Essential hypertension Unspecified essential hypertension Trigeminal neuralgia of left side of face 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 Gastroesophageal reflux disease, esophagitis presence not specified Acute cystitis with hematuria- Primary Trigeminal neuralgia of left side of face Abdominal pain, unspecified abdominal location- Primary Iliocostal friction syndrome Left groin pain Abdominal pain, left lower quadrant Left groin pain Abdominal pain, left lower quadrant Anxiety Anxiety state, unspecified Essential hypertension- Primary Unspecified essential hypertension Gastroesophageal reflux disease, esophagitis presence not specified Frequent UTI Urinary tract infection, site not specified Essential hypertension- Primary Unspecified essential hypertension Gastroesophageal reflux disease, esophagitis presence not specified Chronic kidney disease (CKD), stage III (moderate) ([facility]) Chronic kidney disease, Stage III (moderate) Vitamin D deficiency Actinic keratosis Acute ST elevation myocardial infarction (STEMI) of inferolateral wall ([facility])- Primary Acute ST elevation myocardial infarction (STEMI) of inferior wall ([facility]) Acute myocardial infarction ([facility]) Acute myocardial infarction, unspecified site, episode of care unspecified Coronary artery disease without angina pectoris, unspecified vessel or lesion type, unspecified whether sob[place] or transplanted heart Essential hypertension Unspecified essential hypertension Mixed hyperlipidemia Coronary artery disease without angina pectoris, unspecified vessel or lesion type, unspecified whether sob[place] or transplanted heart Essential hypertension Unspecified essential hypertension Mixed hyperlipidemia Mixed hyperlipidemia Essential hypertension Unspecified essential hypertension Coronary artery disease without angina pectoris, unspecified vessel or lesion type, unspecified whether sob[place] or transplanted heart Coronary artery disease 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 Mixed hyperlipidemia Essential hypertension Unspecified essential hypertension Trigeminal neuralgia of left side of face At low risk for fall- Primary 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 (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) 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, without long-term current use of insulin ([facility]) Essential hypertension Unspecified essential hypertension Mixed hyperlipidemia Vitamin D deficiency Chronic left SI joint pain Disorders of sacrum Sciatica, left side 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) Mixed hyperlipidemia Essential hypertension Unspecified essential hypertension Coronary artery disease 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 Chronic left SI joint pain- Primary Disorders of sacrum Degenerative disc disease, 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 Depression, unspecified depression type 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-sided sciatica Depression, unspecified depression type Status post right hip replacement Essential hypertension- Primary Unspecified essential hypertension Simple chronic bronchitis ([facility]) Simple chronic bronchitis Uncontrolled pain Coronary artery disease 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 Stage 3 chronic kidney disease, unspecified whether stage 3a or 3b CKD ([facility]) Degenerative disc disease, lumbar Mixed hyperlipidemia Essential hypertension Unspecified essential hypertension Essential hypertension- Primary Unspecified essential hypertension Acute myocardial infarction, unspecified IA type, unspecified artery ([facility]) Essential hypertension Unspecified essential hypertension Dizziness Dizziness and giddiness Closed fracture of multiple pubic rami, unspecified laterality, initial encounter ([facility]) Closed fracture of multiple ribs, unspecified laterality, initial encounter At moderate risk for fall- Primary Dysuria Left hip pain Pain in joint, pelvic region and thigh 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, without long-term current use of insulin ([facility])- Primary Chronic bronchitis, unspecified chronic bronchitis type ([facility]) Stage 3 chronic kidney disease, unspecified whether stage 3a or 3b CKD ([facility]) 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) Trigeminal neuralgia of left side of face Prediabetes Other abnormal glucose Acute ST elevation myocardial infarction (STEMI) of inferior wall ([facility]) Spinal stenosis, 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 neurogenic claudication At low risk for fall- Primary 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) Medicare annual wellness visit, subsequent Right ankle swelling Effusion of ankle and foot joint Frequent UTI- Primary Urinary tract infection, site not specified 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) Chronic bronchitis, unspecified chronic bronchitis type ([facility]) Type 2 diabetes mellitus with chronic kidney disease, without long-term current use of insulin, unspecified CKD stage ([facility]) Stage 3 chronic kidney disease, unspecified whether stage 3a or 3b CKD (HCC) Hyponatremia Hyposmolality and/or hyponatremia Dermatitis Contact dermatitis and other eczema, due to unspecified cause Vulvovaginal discomfort Anxiety- Primary Anxiety state, unspecified Left hip pain Pain in joint, pelvic region and thigh Trigeminal neuralgia of left side of face Dizziness- Primary Dizziness and giddiness Chronic systolic heart failure (HCC) Chronic systolic heart failure Dysuria Trigeminal neuralgia of left side of face Stage 3 chronic kidney disease, unspecified whether stage 3a or 3b CKD (HCC)- Primary 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-sided sciatica Mixed hyperlipidemia Right ankle swelling Effusion of ankle and foot joint Prediabetes Other abnormal glucose Spinal stenosis, 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 neurogenic claudication Hyponatremia Hyposmolality and/or hyponatremia Coronary artery disease 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 Moderate major depression (HCC)- Primary Major depressive disorder, single episode, moderate 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 Trigeminal neuralgia of left side of face Moderate major depression (HCC)- Primary Major depressive disorder, single episode, moderate Mild left ventricular systolic dysfunction Hypertension, unspecified type At low risk for fall- Primary Mild left ventricular systolic dysfunction 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-sided sciatica Medicare annual wellness visit, subsequent Moderate major depression (HCC) Major depressive disorder, single episode, moderate Right ankle swelling Effusion of ankle and foot joint Leg swelling Swelling of limb 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 Chronic systolic heart failure (HCC) Chronic systolic heart failure Chronic bronchitis, unspecified chronic bronchitis type (HCC) Coagulation disorder Other and unspecified coagulation defects Stage 3 chronic kidney disease, unspecified whether stage 3a or 3b CKD (HCC) Primary hypertension Unspecified essential hypertension Spinal stenosis, 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 neurogenic claudication Dysuria Upper respiratory tract infection, unspecified type Frequent UTI Urinary tract infection, site not specified At moderate risk for fall Encounter for follow-up examination after completed treatment for conditions other than malignant neoplasm Preop cardiovascular exam- Primary Pre-operative cardiovascular examination Acute myocardial infarction, unspecified IA type, unspecified artery (HCC) 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 Chronic systolic heart failure (HCC) Chronic systolic heart failure Chronic bronchitis, unspecified chronic bronchitis type (HCC) Moderate major depression (HCC) Major depressive disorder, single episode, moderate Coagulation disorder Other and unspecified coagulation defects Ataxia Lack of coordination Hypokalemia- Primary Hypopotassemia Chronic systolic heart failure (HCC) Chronic systolic heart failure Leg swelling Swelling of limb Primary hypertension Unspecified essential hypertension 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-sided sciatica- Primary Essential hypertension Unspecified essential hypertension Acute myocardial infarction, unspecified IA type, unspecified artery (HCC) Chronic systolic heart failure (HCC) Chronic systolic heart failure Trigeminal neuralgia of left side of face Primary hypertension- Primary Unspecified essential hypertension Moderate major depression (HCC) Major depressive disorder, single episode, moderate Thyroid nodule Nontoxic uninodular goiter Medicare annual wellness visit, subsequent- Primary Spinal stenosis, 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 neurogenic claudication Osteoporosis, unspecified osteoporosis type, unspecified pathological fracture presence Dementia, unspecified dementia severity, unspecified dementia type, unspecified whether behavioral, psychotic, or mood disturbance or anxiety (HCC) Moderate major depression (HCC) Major depressive disorder, single episode, moderate Dizziness Dizziness and giddiness At moderate risk for fall Abnormal findings on diagnostic imaging of other specified body structures Abnormal finding of blood chemistry, unspecified At high risk for falls Dizziness- Primary Dizziness and giddiness Spinal stenosis, 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 neurogenic claudication At moderate risk for fall Primary hypertension Unspecified essential hypertension Essential hypertension Unspecified essential hypertension Mixed hyperlipidemia Dysuria Admission for therapeutic drug monitoring Encounter for therapeutic drug monitoring Abnormal finding of blood chemistry, unspecified [facility] Nausea and vomiting, unspecified vomiting type- Primary documented in this encounter [facility] Work Phone: Evaluation note* Diagnosis Cough- Primary Gastroesophageal reflux disease, esophagitis presence not specified Essential hypertension Unspecified essential hypertension Chronic maxillary sinusitis Perennial allergic rhinitis, unspecified allergic rhinitis trigger Trigeminal neuralgia of left side of face 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) Non-seasonal allergic rhinitis, unspecified allergic rhinitis trigger- Primary Trigeminal neuralgia of left side of face Cough Gastroesophageal reflux disease, esophagitis presence not specified Vitamin D deficiency Non-seasonal allergic rhinitis, unspecified allergic rhinitis trigger- Primary Cough Gastroesophageal reflux disease, esophagitis presence not specified Acute non-recurrent maxillary sinusitis Essential hypertension Unspecified essential hypertension Essential hypertension- Primary Unspecified essential hypertension Flu vaccine need Chronic kidney disease (CKD), stage III (moderate) (HCC) Chronic kidney disease, Stage III (moderate) Gastroesophageal reflux disease, esophagitis presence not specified Vitamin D deficiency Cough- Primary Upper respiratory tract infection, unspecified type Essential hypertension- Primary Unspecified essential hypertension Osteoporosis, unspecified osteoporosis type, unspecified pathological fracture presence Vitamin D deficiency 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 At low risk for fall Frequent UTI- Primary Urinary tract infection, site not specified 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) Essential hypertension Unspecified essential hypertension Trigeminal neuralgia of left side of face 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 Gastroesophageal reflux disease, esophagitis presence not specified Acute cystitis with hematuria- Primary Trigeminal neuralgia of left side of face Abdominal pain, unspecified abdominal location- Primary Iliocostal friction syndrome Left groin pain Abdominal pain, left lower quadrant Left groin pain Abdominal pain, left lower quadrant Anxiety Anxiety state, unspecified Essential hypertension- Primary Unspecified essential hypertension Gastroesophageal reflux disease, esophagitis presence not specified Frequent UTI Urinary tract infection, site not specified Essential hypertension- Primary Unspecified essential hypertension Gastroesophageal reflux disease, esophagitis presence not specified Chronic kidney disease (CKD), stage III (moderate) ([facility]) Chronic kidney disease, Stage III (moderate) Vitamin D deficiency Actinic keratosis Acute ST elevation myocardial infarction (STEMI) of inferolateral wall ([facility])- Primary Acute ST elevation myocardial infarction (STEMI) of inferior wall ([facility]) Acute myocardial infarction ([facility]) Acute myocardial infarction, unspecified site, episode of care unspecified Coronary artery disease without angina pectoris, unspecified vessel or lesion type, unspecified whether soboba or transplanted heart Essential hypertension Unspecified essential hypertension Mixed hyperlipidemia Coronary artery disease without angina pectoris, unspecified vessel or lesion type, unspecified whether soboba or transplanted heart Essential hypertension Unspecified essential hypertension Mixed hyperlipidemia Mixed hyperlipidemia Essential hypertension Unspecified essential hypertension Coronary artery disease without angina pectoris, unspecified vessel or lesion type, unspecified whether soboba or transplanted heart Coronary artery disease 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 Mixed hyperlipidemia Essential hypertension Unspecified essential hypertension Trigeminal neuralgia of left side of face At low risk for fall- Primary 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 (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) 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, without long-term current use of insulin ([facility]) Essential hypertension Unspecified essential hypertension Mixed hyperlipidemia Vitamin D deficiency Chronic left SI joint pain Disorders of sacrum Sciatica, left side 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) Mixed hyperlipidemia Essential hypertension Unspecified essential hypertension Coronary artery disease 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 Chronic left SI joint pain- Primary Disorders of sacrum Degenerative disc disease, 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 Depression, unspecified depression type 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-sided sciatica Depression, unspecified depression type Status post right hip replacement Essential hypertension- Primary Unspecified essential hypertension 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 Uncontrolled pain Coronary artery disease 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 Stage 3 chronic kidney disease, unspecified whether stage 3a or 3b CKD ([facility]) Degenerative disc disease, lumbar Mixed hyperlipidemia Essential hypertension Unspecified essential hypertension Essential hypertension- Primary Unspecified essential hypertension Acute myocardial infarction, unspecified IA type, unspecified artery ([facility]) Essential hypertension Unspecified essential hypertension Dizziness Dizziness and giddiness Closed fracture of multiple pubic rami, unspecified laterality, initial encounter ([facility]) Closed fracture of multiple ribs, unspecified laterality, initial encounter At moderate risk for fall- Primary Dysuria Left hip pain Pain in joint, pelvic region and thigh 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, without long-term current use of insulin ([facility])- Primary Chronic bronchitis, unspecified chronic bronchitis type ([facility]) Stage 3 chronic kidney disease, unspecified whether stage 3a or 3b CKD ([facility]) 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) Trigeminal neuralgia of left side of face Prediabetes Other abnormal glucose Acute ST elevation myocardial infarction (STEMI) of inferior wall ([facility]) Spinal stenosis, 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 neurogenic claudication At low risk for fall- Primary 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) Medicare annual wellness visit, subsequent Right ankle swelling Effusion of ankle and foot joint Frequent UTI- Primary Urinary tract infection, site not specified 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) Chronic bronchitis, unspecified chronic bronchitis type ([facility]) Type 2 diabetes mellitus with chronic kidney disease, without long-term current use of insulin, unspecified CKD stage ([facility]) Stage 3 chronic kidney disease, unspecified whether stage 3a or 3b CKD ([facility]) Hyponatremia Hyposmolality and/or hyponatremia Dermatitis Contact dermatitis and other eczema, due to unspecified cause Vulvovaginal discomfort Anxiety- Primary Anxiety state, unspecified Left hip pain Pain in joint, pelvic region and thigh Trigeminal neuralgia of left side of face Dizziness- Primary Dizziness and giddiness Chronic systolic heart failure (HCC) Chronic systolic heart failure Dysuria Trigeminal neuralgia of left side of face Stage 3 chronic kidney disease, unspecified whether stage 3a or 3b CKD (HCC)- Primary 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-sided sciatica Mixed hyperlipidemia Right ankle swelling Effusion of ankle and foot joint Prediabetes Other abnormal glucose Spinal stenosis, 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 neurogenic claudication Hyponatremia Hyposmolality and/or hyponatremia Coronary artery disease 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 Moderate major depression (HCC)- Primary Major depressive disorder, single episode, moderate 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 Trigeminal neuralgia of left side of face Moderate major depression (HCC)- Primary Major depressive disorder, single episode, moderate Mild left ventricular systolic dysfunction Hypertension, unspecified type At low risk for fall- Primary Mild left ventricular systolic dysfunction 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-sided sciatica Medicare annual wellness visit, subsequent Moderate major depression (HCC) Major depressive disorder, single episode, moderate Right ankle swelling Effusion of ankle and foot joint Leg swelling Swelling of limb 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 Chronic systolic heart failure (HCC) Chronic systolic heart failure Chronic bronchitis, unspecified chronic bronchitis type (HCC) Coagulation disorder Other and unspecified coagulation defects Stage 3 chronic kidney disease, unspecified whether stage 3a or 3b CKD (HCC) Primary hypertension Unspecified essential hypertension Spinal stenosis, 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 neurogenic claudication Dysuria Upper respiratory tract infection, unspecified type Frequent UTI Urinary tract infection, site not specified At moderate risk for fall Encounter for follow-up examination after completed treatment for conditions other than malignant neoplasm Preop cardiovascular exam- Primary Pre-operative cardiovascular examination Acute myocardial infarction, unspecified IA type, unspecified artery (HCC) 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 Chronic systolic heart failure (HCC) Chronic systolic heart failure Chronic bronchitis, unspecified chronic bronchitis type (HCC) Moderate major depression (HCC) Major depressive disorder, single episode, moderate Coagulation disorder Other and unspecified coagulation defects Ataxia Lack of coordination Hypokalemia- Primary Hypopotassemia Chronic systolic heart failure (HCC) Chronic systolic heart failure Leg swelling Swelling of limb Primary hypertension Unspecified essential hypertension 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-sided sciatica- Primary Essential hypertension Unspecified essential hypertension Acute myocardial infarction, unspecified IA type, unspecified artery (HCC) Chronic systolic heart failure (HCC) Chronic systolic heart failure Trigeminal neuralgia of left side of face Primary hypertension- Primary Unspecified essential hypertension Moderate major depression (HCC) Major depressive disorder, single episode, moderate Thyroid nodule Nontoxic uninodular goiter Medicare annual wellness visit, subsequent- Primary Spinal stenosis, 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 neurogenic claudication Osteoporosis, unspecified osteoporosis type, unspecified pathological fracture presence Dementia, unspecified dementia severity, unspecified dementia type, unspecified whether behavioral, psychotic, or mood disturbance or anxiety (HCC) Moderate major depression (HCC) Major depressive disorder, single episode, moderate Dizziness Dizziness and giddiness At moderate risk for fall Abnormal findings on diagnostic imaging of other specified body structures Abnormal finding of blood chemistry, unspecified At high risk for falls Dizziness- Primary Dizziness and giddiness Weakness generalized Other malaise and fatigue Cystitis Unspecified cystitis Thyroid nodule Nontoxic uninodular goiter Fall, initial encounter Preop cardiovascular exam Pre-operative cardiovascular examination Lumbar spondylosis Lumbosacral spondylosis without myelopathy Leg swelling Swelling of limb Mild left ventricular systolic dysfunction Moderate major depression (HCC) Major depressive disorder, single episode, moderate Hyponatremia Hyposmolality and/or hyponatremia Vulvovaginal discomfort Chest pain, unspecified type Right ankle swelling Effusion of ankle and foot joint Medicare annual wellness visit, subsequent Lumbar degenerative disc disease Left hip pain Pain in joint, pelvic region and thigh Dysuria Closed fracture of multiple ribs, unspecified laterality, initial encounter Closed fracture of multiple pubic rami, unspecified laterality, initial encounter (HCC) Dizziness Dizziness and giddiness Carcinoid tumor of small intestine (HCC) Neoplasm of unspecified nature of digestive system Duodenal adenoma Obstructive sleep apnea syndrome Obstructive sleep apnea (adult) (pediatric) Spinal stenosis, 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 neurogenic claudication Scoliosis, unspecified scoliosis type, unspecified spinal region 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 Disorders of sacrum Degenerative disc disease, 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 Mixed hyperlipidemia Primary hypertension Unspecified essential hypertension Kelly's esophagus Coronary artery disease 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 Acute myocardial infarction, unspecified IA type, unspecified artery (HCC) Acute ST elevation myocardial infarction (STEMI) of inferior wall (HCC) Actinic keratosis Anxiety Anxiety state, unspecified Left groin pain Abdominal pain, left lower quadrant Iliocostal friction syndrome Frequent UTI Urinary tract infection, site not specified 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 At moderate risk for fall 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 Upper respiratory tract infection, unspecified type Non-seasonal allergic rhinitis, unspecified trigger 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 Her pain has improved substantially from last visit.She does not have the same discomfort on the lateral aspect of the hip she is ambulating more she is exercising more she does feel much better overall. [facility] [address] Work Phone: Hospital Discharge instructions* Attachments The following attachments cannot be sent through Care Everywhere. * Nausea and Vomiting, Adult ED ([place] Reason for visit Narrative* Auth/Cert Specialty Diagnoses / Procedures Referred By Jane lugo Referred To Contact Diagnoses Chest pain Acute coronary syndrome rule out. Referral ID Status Reason Start Date Expiration Date Visits Re quested Visits Authorized [id number] [address] [facility] for visit Narrative* Imaging (Routine) - Authorized Specialty Diagnoses / Procedures Referred By Jane lugo Referred To Contact Radiology Diagnoses Nontoxic single thyroid nodule Procedures US thyroid [facility] [address] [place] [address] Phone: tel: fax: Referral ID Status Reason Start Date Expiration Date Visits Requested Visits Authorized [id number] Authorized Perform Procedure 04/19/2024 04/19/2025 1 1 [facility] Work Phone: Instructions Name Dates Details Instructions not documented Name Dates Details Instructions not documented Assessments Diagnosis Essential hypertension - [facility] Unspecified essential hypertension Osteoporosis, unspecified os teoporosis type, unspecified pathological fracture presence Vitamin D deficiency 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 At low risk for fall Diagnosis General medical exam - Prima ry Unspecified general medical examination Risk for falls Diagnosis Essential hypertension Unspecified essential hypertension Diagnosis Cough - Primary Upper respiratory tract infe ction, unspecified type Diagnosis Essential hypertension - [facility] Unspecified essential hypertension Flu vaccine need Chronic kidney disease (CKD) , stage III (moderate) Chronic kidney disease, Stage III (moderate) Gastroesophageal reflux dise ase, esophagitis presence not specified Vitamin D deficiency Diagnosis Frequent UTI - Primary Urinary tract infection, site not specified 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) Essential hypertension Unspecified essential hypertension Trigeminal neuralgia of left side of face Simple chronic bronchitis ([facility]) Simple chronic bronchitis Gastroesophageal reflux dise ase, esophagitis presence not specified Diagnosis Acute cystitis with hematuri a - Primary Trigeminal neuralgia of left side of face Diagnosis Left groin pain Abdominal pain, left lower quadrant Anxiety Anxiety state, unspecified Diagnosis Abdominal pain, unspecified abdominal location - Primary Iliocostal friction syndrome Left groin pain Abdominal pain, left lower quadrant Diagnosis Trigeminal neuralgia of left side of face- Primary Essential hypertension Unspecified essential hypertension Chronic kidney disease (CKD), stage III (moderate) (HCC) Chronic kidney disease, Stage III (moderate) 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) Acute cystitis with hematuria 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 Vitamin D deficiency Diagnosis Acute ST elevation myocardial infarction (STEMI) of inferolateral wall (HCC)- Primary Diabetes mellitus (HCC) Type II or unspecified type diabetes mellitus without mention of complication, not stated as uncontrolled Acute ST elevation myocardial infarction (STEMI) of inferior wall (HCC) HTN (hypertension), benign Essential hypertension, benign Acute myocardial infarction (HCC) Acute myocardial infarction, unspecified site, episode of care unspecified Diagnosis S/P PTCA (percutaneous transluminal coronary angioplasty)- Primary Postsurgical percutaneous transluminal coronary angioplasty status Diagnosis Coronary artery disease without angina pectoris, unspecified vessel or lesion type, unspecified whether soboba or transplanted heart Essential hypertension Unspecified essential hypertension Mixed hyperlipidemia Diagnosis ERRONEOUS ENCOUNTER--DISREGARD- Primary Diagnosis Mixed hyperlipidemia Essential hypertension Unspecified essential hypertension Coronary artery disease without angina pectoris, unspecified vessel or lesion type, unspecified whether soboba or transplanted heart Diagnosis Trigeminal neuralgia Diagnosis Coronary artery disease 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 Mixed hyperlipidemia Essential hypertension Unspecified essential hypertension Trigeminal neuralgia of left side of face Diagnosis Mixed hyperlipidemia Essential hypertension Unspecified essential hypertension Coronary artery disease 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 Diagnosis Chronic left-sided low back pain without sciatica- Primary Chronic left SI joint pain Disorders of sacrum Sciatica, left side Diagnosis Chronic left-sided low back pain without sciatica Diagnosis Chronic left SI joint pain- Primary Disorders of sacrum Degenerative disc disease, 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 Depression, unspecified depression type Diagnosis 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-sided sciatica Depression, unspecified depression type Diagnosis S/P right hip fracture- Primary Diagnosis Coronary artery disease without angina pectoris, unspecified vessel or lesion type, unspecified whether soboba or transplanted heart Essential hypertension Unspecified essential hypertension Mixed hyperlipidemia Diagnosis Status post right hip replacement Diagnosis 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 (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) 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-sided sciatica Depression, unspecified depression type Diagnosis At low risk for fall- Primary 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 (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) 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, without long-term current use of insulin (HCC) Essential hypertension Unspecified essential hypertension Mixed hyperlipidemia Vitamin D deficiency Chronic left SI joint pain Disorders of sacrum Sciatica, left side 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) Diagnosis Sciatica, left side- Primary Spinal stenosis of 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 neurogenic claudication Lumbar degenerative disc disease Diagnosis Trigeminal neuralgia of left side of face- Primary Frequent UTI Urinary tract infection, site not specified Essential hypertension Unspecified essential hypertension Diagnosis S/P PTCA (percutaneous transluminal coronary angioplasty) Postsurgical percutaneous transluminal coronary angioplasty status Summary Purpose Family History Unknown Family Member Name Dates Details Family history of diabetes m ellitus: Sister(V18.0, Z83.3) Status:Active Family history of cardiovasc ular disease: Mother, Father, Sister, Brother(V17.49, Z82.49) Status:Active Family history of cerebrovas cular accident (CVA): Father, Brother(V17.1, Z82.3) Status:Active Unknown Family Member Name Dates Details Family history of diabetes m ellitus: Sister(V18.0, Z83.3) Status:Active Family history of cardiovasc ular disease: Mother, Father, Sister, Brother(V17.49, Z82.49) Status:Active Family history of cerebrovas cular accident (CVA): Father, Brother(V17.1, Z82.3) Status:Active Unknown Family Member Name Dates Details Family history of diabetes m ellitus: Sister(V18.0, Z83.3) Status:Active Family history of cardiovasc ular disease: Mother, Father, Sister, Brother(V17.49, Z82.49) Status:Active Family history of cerebrovas cular accident (CVA): Father, Brother(V17.1, Z82.3) Status:Active Advance Directives Date Activated Date Inactivated Comments 07/07/2023 10:08 PM 07/09/2023 5:26 PM Question Answer Comments Detail: No intubation Date Activated Date Inactivated Comments 07/07/2023 9:48 PM 07/07/2023 10:07 PM Date Activated Date Inactivated Comments 04/17/2022 7:05 AM 12/14/2022 12:37 PM This order w as created through External Result Entry Date Activated Date Inactivated Comments 04/04/2022 12:17 PM 04/05/2022 5:54 PM Date Activated Date Inactivated Comments 04/04/2022 9:24 AM 04/04/2022 12:17 PM Documents on File Type Date Recorded Patient De Icer Kit Assembler Expl anation Advance Directives and Living Will Documents on File Type Date Recorded Patient De Icer Kit Assembler Expl anation Advance Directives and Livin g Will 08/23/2018 6:31 AM Latest Code Status on File Code Status Date Activated Date Inactivated Comments Full Code 08/23/2018 8:26 AM Documents on File Type Date Recorded Patient De Icer Kit Assembler Expl anation Advance Directives and Livin g Will 08/23/2018 6:31 AM Latest Code Status on File Code Status Date Activated Date Inactivated Comments Full Code 08/23/2018 8:26 AM Documents on File Type Date Recorded Patient De Icer Kit Assembler Expl anation Advance Directives and Livin g Will 02/18/2020 6:31 AM Documents on File Type Date Recorded Patient De Icer Kit Assembler Expl anation Advance Directives and Livin g Will 02/18/2020 6:31 AM Documents on File Type Date Recorded Patient De Icer Kit Assembler Expl anation Advance Directive(s) 01/19/2009 9:23 PM Documents on File Type Date Recorded Patient De Icer Kit Assembler Expl anation Advance Directives and Livin g Will 06/03/2021 6:31 AM Latest Code Status on File Code Status Date Activated Date Inactivated Comments Full Code 08/23/2018 8:26 AM 06/03/2021 2:58 PM Latest Code Status on File Code Status Date Activated Date Inactivated Comments Full Code 08/23/2018 8:26 AM 06/03/2021 2:58 PM Latest Code Status on File Date Activated Date Inactivated Comments 08/23/2018 8:26 AM 06/03/2021 2:58 PM Latest Code Status on File Date Activated Date Inactivated Comments 08/23/2018 8:26 AM 06/03/2021 2:58 PM Latest Code Status on File Code Status Date Activated Date Inactivated Comments Full Code 08/23/2018 8:26 AM 06/03/2021 2:58 PM Latest Code Status on File Code Status Date Activated Date Inactivated Comments [facility] 04/04/2022 12:17 PM 04/05/2022 5:54 PM Code Status History Code Status Date Activated Date Inactivated Comments Full Code 04/04/2022 9:24 AM 04/04/2022 12:17 PM Full Code 08/23/2018 8:26 AM 06/03/2021 2:58 PM Latest Code Status on File Code Status Date Activated Date Inactivated Comments [facility] 04/17/2022 7:05 AM This order was created through External Result Entry Code Status History Code Status Date Activated Date Inactivated Comments [facility] 04/04/2022 12:17 PM 04/05/2022 5:54 PM Full Code 04/04/2022 9:24 AM 04/04/2022 12:17 PM Full Code 08/23/2018 8:26 AM 06/03/2021 2:58 PM Latest Code Status on File Code Status Date Activated Date Inactivated Comments [facility] 04/17/2022 7:05 AM This order was created through External Result Entry Code Status History Code Status Date Activated Date Inactivated Comments [facility] 04/04/2022 12:17 PM 04/05/2022 5:54 PM Full Code 04/04/2022 9:24 AM 04/04/2022 12:17 PM Full Code 08/23/2018 8:26 AM 06/03/2021 2:58 PM Advance Directive Response Recorded Date/ Time Living Will Yes July 03, 2022 1:53pm Power of Security Field Supervisor Yes July 03 1:53pm Name of Medical Power of Security Field Supervisor SON/DAUGHTER July 03, 2022 1:53pm Latest Code Status on File Code Status Date Activated Date Inactivated Comments [facility] 04/17/2022 7:05 AM 12/14/2022 12:37 PM This order was created through External Result Entry Latest Code Status on File Code Status Date Activated Date Inactivated Comments [facility] 04/17/2022 7:05 AM 12/14/2022 12:37 PM This order was created through External Result Entry Documents on File Type Date Recorded Patient De Icer Kit Assembler Expl anation Healthcare Power of Atty 12/28/2020 Living Will 12/28/2020 Date Activated Date Inactivated Comments 04/17/2022 7:05 AM 12/14/2022 12:37 PM This order w as created through External Result Entry Date Activated Date Inactivated Comments 04/04/2022 12:17 PM 04/05/2022 5:54 PM Date Activated Date Inactivated Comments 04/04/2022 9:24 AM 04/04/2022 12:17 PM Date Activated Date Inactivated Comments 08/23/2018 8:26 AM 06/03/2021 2:58 PM Date Activated Date Inactivated Comments 07/07/2023 10:08 PM Date Activated Date Inactivated Comments 07/07/2023 10:08 PM 07/09/2023 5:26 PM Question Answer Comments Detail: No intubation Date Activated Date Inactivated Comments 07/07/2023 9:48 PM 07/07/2023 10:07 PM Date Activated Date Inactivated Comments 04/17/2022 7:05 AM 12/14/2022 12:37 PM This order w as created through External Result Entry Date Activated Date Inactivated Comments 04/04/2022 12:17 PM 04/05/2022 5:54 PM Date Activated Date Inactivated Comments 04/04/2022 9:24 AM 04/04/2022 12:17 PM Documents on File Type Date Recorded Patient De Icer Kit Assembler Expl anation Healthcare Power of Atty 12/28/2020 Living Will 12/28/2020 Documents on File Type Date Recorded Patient De Icer Kit Assembler Expl anation Power of Security Field Supervisor 07/18/2024 07/18/2024 HEALTH POWER OF TOBACCO BUYER Documents on File Type Date Recorded Patient De Icer Kit Assembler Expl anation Power of Security Field Supervisor 07/18/2024 07/18/2024 HEALTH POWER OF TOBACCO BUYER Date Activated Date Inactivated Comments 11/02/2024 5:34 PM 11/10/2024 9:49 PM Date Activated Date Inactivated Comments 07/07/2023 10:08 PM 07/09/2023 5:26 PM Question Answer Comments Detail: No intubation Date Activated Date Inactivated Comments 07/07/2023 9:48 PM 07/07/2023 10:07 PM Date Activated Date Inactivated Comments 04/17/2022 7:05 AM 12/14/2022 12:37 PM This order w as created through External Result Entry Date Activated Date Inactivated Comments 04/04/2022 12:17 PM 04/05/2022 5:54 PM History of Present Illness * Valdez Hector LPN - 03/23/2018 3:47 PM EST Rooming Documentation How often do you need to have someone help you when you read instructions, pamphlets or other written material from your doctor or pharmacy? Health Literacy Patient Response: Never Are you experiencing any side effects or adverse reactions to your medications? Patient response: No Do you have any problems taking your medications? Patient Response: I don't like the side effects of my medications Patient states they do understand their medications Are you taking any wlbh-pcu-ruzoagm medications or supplements? Patient Response: OTC Multivitamins Since last being seen in this office, have you seen another healthcare provider? Patient Response: No in this encounter* Mary Moore LPN - 06/23/2018 8:37 AM EDT Pt reports the trigeminal neuralgia is really bothering her lately especially at night. Pt reports it feels like she has stuck her finger in a light socket. Pt reports she had been doing acupuncture but can no longer afford the treatment. Pt reports she has been to a neurologist through [facility] [place] and has seen Dr. Sweet. Pt has been on tegretol and gabapentin and doesn't like how it effects her.Pt also reports chronic issue with urinary incontinence. Pt reports she all of a sudden gets an urge and has to go right away. * Caitie Mclaughlin MD - 06/23/2018 8:30 AM EDT Subjective Patient ID: Cat Carroll is a 83 y.o. female. Chief Complaint Patient presents with Urinary Incontinence Trigeminal Neuralgia HPI Trigeminal Neuralgia: She states she has been battling this for over 20 years and she has been on multiple medications inthe past and has been followed by a neurologist in the past. She states she was on Tegretol and Neurontin and did not like that they messed with her memory. She states in the past month the Topamax has not done a sufficient job of keeping the pain down, she states she has pain along the left side of her nose, left cheek, around left eye, and left eyebrow. States the pain is a tingly, sharp shooting pain when touched. Pain about 9/10 currently. Accupuncture worked best but her insurance won't cover so she stopped Chronic kidney disease: She with a history of chronic kidney disease. She was first diagnosed in 2017. Last lab was 03/22/2018. Office Visit on 06/23/2018 Component Date Value Ref Range Status Spec Grav, UA 06/23/2018 1.015 1.005 - 1.025 Final pH, UA 06/23/2018 6.5 5.0 - 7.0 Final Protein, UA 06/23/2018 Negative Negative mg/dL Final Glucose, UA 06/23/2018 Negative Normal, Negative mg/dL Final Ketones, UA 06/23/2018 Negative Negative mg/dL Final Bilirubin, UA 06/23/2018 Negative Negative Final Urobilinogen, UA 06/23/2018 0.2 <2.0, 0.2, Normal, Negative, 1.0, 2.0, <1.0 mg/dL Final Blood, UA 06/23/2018 Trace-intact* Negative Final Nitrite, UA 06/23/2018 Positive* Negative Final Leukocyte Esterase, UA 06/23/2018 Trace* Negative Final Hospital Outpatient Visit on 03/22/2018 Component Date Value Ref Range Status Glucose 03/22/2018 105* 70 - 99 mg/dL Final BUN 03/22/2018 14 8 - 25 mg/dL Final Creatinine 03/22/2018 0.95 0.60 - 1.20 mg/dL Final eGFR 03/22/2018 57* >60 ml/min/1.73sq.m Final eGFR 03/22/2018 >=60 ml/min/1.73sq.m Final Calcium 03/22/2018 9.0 8.4 - 10.2 mg/dL Final Sodium 03/22/2018 137 135 - 145 mmol/L Final Potassium 03/22/2018 4.1 3.5 - 5.1 mmol/L Final Chloride 03/22/2018 106 98 - 108 mmol/L Final CO2 03/22/2018 25 21 - 32 mmol/L Final Magnesium 03/22/2018 1.7 1.6 - 2.4 mg/dL Final Vitamin D, 25-Hydroxy, Total 03/22/2018 97 30 - 100 ng/mL Final Patient has been tested for albumin in the urine. She is aware of the importance of avoiding all nephrotoxic drugs which include Motrin, Aleve, Advil, Naprosyn, ibuprofen, Nuprin and all other prescription nonsteroidals. Is aware of the importance of adequate hydration. Hypertension: Patient has a history of hypertension since 1999. Most recently their condition has been stable . They report no angina, anginal equivalent, palpitations or change in exercise tolerance. moderately active. Current medications include: Losartan 50 mg daily, metoprolol titrate Lopressor 100 mg twice a day. The following portions of the patient's history were reviewed and updated as appropriate: allergies, current medications, past family history, past medical history, past social history, past surgicalhistory and problem list. Review of Systems Constitutional: Negative for activity change, appetite change, chills, diaphoresis, fatigue, fever and unexpected weight change. Respiratory: Negative for cough, chest tightness and shortness of breath. Cardiovascular: Negative for chest pain, palpitations and leg swelling. Genitourinary: Positive for dysuria, frequency and hematuria (microscopicc). Urinary incontinence Neurological: Negative for dizziness, syncope, weakness and light-headedness. Hematological: Does not bruise/bleed easily. Psychiatric/Behavioral: Negative for confusion, decreased concentration and sleep disturbance. The patient is not nervous/anxious. Urinary Incontinence Verlin complains of urinary incontinence. She has had symptoms for 1 year or more. Severity of illness is very severe Fever- No. Back pain- No. Nausea or vomiting- No. Treatment tried- Azo Did not help. + dysuria for 2 weeks. + frequency quite some time because I have been trying to drink a lot of water. History of recurrent urinary tract infections? Yes- last UTI was 10/12/17 and prior to that, 09/08/17. She was treated with Keflex on both occasions. Urine cultures and sensitivities were reviewed. 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 [place] donna. Dr Hinds BLADDER REPAIR 1989 CATARACT EXT/ECCE Bilateral 2011 Dr [place] CHOLECYSTECTOMY CYST REMOVAL Right 2000 cyst removal from rt breast-benign DILATION AND CURETTAGE (D AND C) 1970 x 2 EGD 01/01/2015 Dr. ZavalaXemwiy-Riemhlhja-Itxhkdn's esophagus EGD 08/2014 Dr. Vinicius RamachandranO-Rawyfaxrm-Hgdnvva's esophagitis biopsies negative for dysplasia. ESOPHAGOGASTRODUODENOSCOPY 01/04/2018 Dr. Zavala -biopsies performed-Kelly's esophagitis-carcinoid tumor posterior wall duodenum FRACTURE SURGERY Right Plates and screws in rt arm after fracture. dr Dolan HYSTERECTOMY 1975 KIDNEY SURGERY 1969 had exploratory surgery d/t floating kidney Dx KNEE SURGERY Left 1998 left knee arthoscopy LUMPECTOMY Left 1989 benign SQUAMOUS CELL CARCINOMA EXCISION x4 TOTAL KNEE ARTHROPLASTY Left 2012 dr dolan TUMOR REMOVAL 2011 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 Family History Problem Relation Age of Onset Diabetes Mother Heart disease Mother Heart disease Father Stroke Father Diabetes Sister Heart disease Brother Diabetes Brother Diabetes Maternal Uncle Bipolar disorder Daughter Diabetes Son Social History Socioeconomic History Marital status: Single Spouse name: Not on file Number of children: 2 Years of education: 12 Highest education level: Not on file Social Needs Financial resource strain: Not on file Food insecurity - worry: Not on file Food insecurity - inability: Not on file Transportation needs - medical: Not on file Transportation needs - non-medical: Not on file Occupational History Not on file Tobacco Use Smoking status: Former Smoker Types: Cigarettes Last attempt to quit: 04/03/1976 Years since quittin.2 Smokeless tobacco: Never Used Substance and Sexual Activity Alcohol use: No Drug use: No Sexual activity: Never Other Topics Concern Not on file Social History Narrative Not on file Allergies Allergen Reactions Aspirin Codeine Unknown Latex, Natural Rubber Unknown Ifozrjob-Mqtjgzremcb-Klsmfwbvd Hydrocortisone Rash Current Outpatient Medications: cholestyramine (QUESTRAN) 4 gram packet, Take 1 (one) packet by mouth daily with breakfast Hour prior or hour post ., Disp: 90 each, Rfl: 3 ergocalciferol (ERGOCALCIFEROL) 50,000 unit capsule, Take 1 (one) capsule (50,000 Units total) by mouth every 14 (fourteen) days ., Disp: 7 capsule, Rfl: 3 fluticasone propionate (FLOVENT HFA) 110 mcg/actuation inhaler, Inhale 2 (two) puffs 2 (two) times a day Rinse mouth after each use ., Disp: 3 Inhaler, Rfl: 3 losartan (COZAAR) 50 MG tablet, Take 1 (one) tablet (50 mg total) by mouth daily., Disp: 30 tablet,Rfl: 11 metoprolol tartrate (LOPRESSOR) 100 MG tablet, TAKE ONE-HALF (1/2) TABLET TWICE A DAY, Disp: 180 tablet, Rfl: 3 MULTIVIT-MIN/IRON/FOLIC/LUTEIN (CENTRUM SILVER WOMEN ORAL), Take 1 tablet by mouth daily., Disp: , Rfl: omeprazole (PRILOSEC) 40 MG capsule, Take 1 (one) capsule (40 mg total) by mouth daily ., Disp: 90 capsule, Rfl: 3 topiramate (TOPAMAX) 50 MG tablet, Take 2 tablets in the morning , 1 In the evening ., Disp: 270 tablet, Rfl: 3 cephALEXin (KEFLEX) 500 MG capsule, Take 1 (one) capsule (500 mg total) by mouth 3 (three) times a day ., Disp: 21 capsule, Rfl: 0 lidocaine (LIDODERM) 5 % patch, Place 1 (one) patch on the skin daily Remove & Discard patch within 12 hours or as directed by ., Disp: 30 patch, Rfl: 0 Objective Vitals: 06/23/18 0841 06/23/18 0923 BP: (!) 150/78 136/80 BP Location: Left arm Left arm Patient Position: Sitting Sitting BP Cuff Size: Adult Adult Pulse: 72 Resp: 16 Temp: 97.5 F (36.4 C) TempSrc: Oral SpO2: 98% Weight: 67 kg (147 lb 12.8 oz) Height: 5' 4 Physical Exam Constitutional: She appears well-developed and well-nourished. No distress. HENT: Head: Normocephalic. Cardiovascular: Normal rate, regular rhythm and normal heart sounds. Exam reveals no gallop and no friction rub. No murmur heard. Pulmonary/Chest: Effort normal and breath sounds normal. No respiratory distress. She has no wheezes. She has no rales. Musculoskeletal: She exhibits no edema or tenderness. Neurological: She is alert. Skin: Skin is warm and dry. She is not diaphoretic. Psychiatric: She has a normal mood and affect. Her behavior is normal. Judgment and thought contentnormal. Nursing note and vitals reviewed. Assessment/Plan: 1. Trigeminal neuralgia of left side of face Chronic problem- worsening - topiramate (TOPAMAX) 50 MG tablet; Take 2 tablets in the morning , 1 In the evening . Dispense: 270 tablet; Refill: 3 - Ambulatory referral to Neurology; Future 2. Essential hypertension Chronic problem-stable The current medical regimen is effective; continue present plan and medications. RECOMMEND avoid licorice in diet, avoid pseudoephedrine or other stimulants/decongestants in commoncold remedies, avoid NSAIDS such as Advil, ibuprofen, Motrin, Aleve; decrease consumption of alcohol, perform routine monitoring of blood pressure with home blood pressure cuff, exercise, reduction of dietary salt intake, and take medication as prescribed, try not to miss doses. - Comprehensive Metabolic Panel; Future 3. Chronic kidney disease (CKD), stage III (moderate) ([facility]) Chronic problem-stable - Comprehensive Metabolic Panel; Future 4. Mixed incontinence urge and stress See 4 below 5. Acute cystitis with hematuria With chronic urinary incontinence now with dysuria. She has a history of recurrent UTIs. - cephALEXin (KEFLEX) 500 MG capsule; Take 1 (one) capsule (500 mg total) by mouth 3 (three) times a day . Dispense: 21 capsule; Refill: 0 - POC Urinalysis Dipstick - Urine Aerobic Culture 6. Simple chronic bronchitis (HCC) Refilled Flovent. - fluticasone propionate (FLOVENT HFA) 110 mcg/actuation inhaler; Inhale 2 (two) puffs 2 (two) times a day Rinse mouth after each use . Dispense: 3 Inhaler; Refill: 3 7. Vitamin D deficiency Continue current medications pending lab results - Vitamin D, Total, 25-OH; Future Electronically signed by: Dr Caitie Mclaughlin 12:51 PM 06/23/18 documented in this encounter* Callie Hernandez, RAYMUNDO - 08/25/2018 11:17 AM EDT Cardiology Progress Note [facility] Cardiology Sign-Off Discharge Medications: Continue current cardiac medications at current doses, unlimited duration. Follow-up Imaging, Testing: No additional outpatient testing is recommended at this time. Follow-up Appointments: Please see AVS summary for OP appointments Additional Instructions Reviewed with Patient and/or Family: Compliance with follow-up. Compliance with medications. Diet Instructions: Low-fat low-salt. Assessment/Plan: Acute ST elevation myocardial infarction (STEMI) of inferior wall (HCC) Assessment & Plan Denies current complaints of chest pain, shortness of breath, lightheadedness or dizziness. Does endorse some chest soreness yesterday. Has been up ambulating without cardiac issues. Post PCI instructions reviewed with patient including importance of DAPT compliance. Stated allergyto aspirin is reported as GI upset. Has been receiving aspirin in the hospital setting without complaints. Cardiac rehab to see patient prior to discharge. [employer] co-pay card will be provided. Prescriptions will be sent to local pharmacy. She is agreeable to plan of care and appears stable for discharge. HTN (hypertension), benign Assessment & Plan Well-controlled on current regimen. Anticipate reinitiation of her home regimen of losartan as blood pressure will allow in the ambulatory setting. LOS: 2 days Subjective: Ms. Carroll denies chest pain, dyspnea, palpitations, pain or swelling in the groin, peripheral swelling or dizziness. Has been up ambulating without cardiac complaints Objective: Vital signs in last 24 hours: Temp: [98.2 F (36.8 C)-98.8 F (37.1 C)] 98.6 F (37 C) Heart Rate: [63-82] 73 Resp: [14-59] 14 BP: (104-129)/(58-68) 104/58 Physical Exam: Alert, no acute distress JVP is not elevated Heart is regular rate and rhythm. No gallop or rub. No murmur Lungs are clear to ausculation bilaterally. Nonlabored respirations. Abdomen has no hepatomegally Lower extremeties have no edema. Right groin access site without drainage, ecchymosis, pain and without neurovascular compromise noted. Lab Review Today's available lab reviewed. * Yoan Zelaya - 08/24/2018 2:41 PM EDT Pastoral Care Rounding/follow up visit. Spiritual and emotional support provided, empathetic listening as patient shared story and concerns. Provided opportunity for patient to express spiritual and caodaism beliefs and convictions, aidedthe patient in connecting with resources that give meaning and purpose to life and help in present situation. Rev. Yoan Zelaya M.Div., [facility] Staff Tow Bar Driver/Palliative Care [id number] 08/24/18 1446 Clinical Encounter Type Visit Type Non Crisis Non Crisis Visit Follow-up Visited With Patient Visit Length (minutes) 1-15 * Joe Cody MD - 08/24/2018 8:50 AM EDT General Cardiology Inpatient Follow-up Heart & Vascular [facility] 08/24/2018 Joe Cody MD [facility] Patient: Cat Carroll Date of : 1935 (83 y.o.) PCP: Caitie Mclaughlin MD Assessment/Plan: Acute ST elevation myocardial infarction (STEMI) of inferior wall (HCC) Assessment & Plan Patient stable. She still reports some vague chest pain, this seems to be more pleural pericardial in nature. She looks comfortable, no significant dysrhythmias noted. Groin site is soft. We will continue her current medical therapy, advance her activity, anticipate discharge likely tomorrow. She can transfer to coronary stepdown. HTN (hypertension), benign Assessment & Plan Blood pressure looks well controlled today. Subjective Patient lying in bed, appears comfortable, no visible distress ECG 12 Lead Final Result by Interface, Lab Results In [place] [facility] (08/24/2018 0817) Echocardiogram complete Final Result by Marco Antonio Ansari MD (08/23/2018 1445) Cardiac Catheterization (Results Pending) Review of Systems: No shortness of breath, some mild chest pain, appears more pleuropericardial in nature worse with deep breathing no edema, otherwise negative. Current Facility-Administered Medications Medication Dose Route Frequency Provider Last Rate Last Dose acetaminophen (TYLENOL) tablet 650 mg 650 mg Oral Q4H PRN Glen Fair MD 650 mg at 08/24/18 0030 aspirin EC tablet 81 mg 81 mg Oral Daily Glen Fair MD 81 mg at 08/24/18 0800 atorvastatin (LIPITOR) tablet 80 mg 80 mg Oral Nightly Glen Fair MD bisacodyl (DULCOLAX) suppository 10 mg 10 mg Rectal Daily PRN Glen Fair MD heparin (porcine) injection 5,000 Units 5,000 Units Subcutaneous Q8H [facility] Joe Cody MD metoprolol tartrate (LOPRESSOR) tablet 25 mg 25 mg Oral BID Joe Cody MD 25 mg at 08/24/18 0800 naloxone (NARCAN) injection 0.1 mg 0.1 mg Intravenous PRN Glen Fair MD And naloxone (NARCAN) injection 0.4 mg 0.4 mg Intravenous PRN Glen Fair MD nitroGLYCERIN (NITROSTAT) SL tablet 0.4 mg 0.4 mg Sublingual Q5 Min PRN Glen Fair MD 0.4 mg at 08/23/18 1111 ondansetron (ZOFRAN) injection 4 mg 4 mg Intravenous Q6H PRN Glen Fair MD perflutren lipid microspheres (DEFINITY) 0.143 mg/mL solution 0-10 mL of mixture 0-10 mL of mixtureIntravenous Once in imaging Elisabet Jackson MD sodium chloride (PF) (NS) flush 5 mL 5 mL Intravenous PRN Glen Fair MD And sodium chloride (PF) (NS) flush 5 mL 5 mL Intravenous Q8H DIYA Glen Fair MD 5 mL at 08/24/18 0537 And sodium chloride 0.9% (NS) 0-150 mL/hr Intravenous PRN Glen Fair MD ticagrelor (BriLINTA) tablet 90 mg 90 mg Oral BID Glen Fair MD 90 mg at 08/24/18 0800 traMADol (ULTRAM) tablet 50 mg 50 mg Oral Q4H PRN Glen Fair MD 50 mg at 08/24/18 0533 traZODone (DESYREL) tablet 25 mg 25 mg Oral Nightly PRN Joe Cody MD Objective: Physical Examination: BP 113/63 (BP Location: Left arm) Pulse 66 Temp 98.8 F (37.1 C) (Oral) Resp 14 Ht 5' 4 Wt 64.5 kg (142 lb 3.2 oz) SpO2 97% BMI 24.41 kg/m Constitutional: Alert, well appearing, not in distress.? Eyes: Conjunctivae/corneas clear. Lungs: Clear to auscultation, no wheezes, rales or rhonchi. Cardiovascular: Normal rate and regular rhythm, S1 and S2 normal, no murmurs noted, no carotid bruit, no pedal edema, no JVD. Abdomen: Soft, nontender with normal active bowel sounds; no masses or organomegaly. Skin: Normal coloration and turgor; no rashes or lesions. Musculoskeletal: Normal Range of Motion (ROM), groin site soft, no hematoma, pulses intact Psych: Oriented to time, person, and place; appropriate mood. No results found for: CHOL, LDLCALC, LDLDIRECT, TRIG, HDL Serum creatinine: 0.85 mg/dL 08/24/18 0328 Estimated creatinine clearance: 44.1 mL/min * Yoan Zelaya - 08/23/2018 11:55 AM EDT Pastoral Care Pastoral Care Received a call from unit regarding patient requesting visit from her lutheran. I called the lutheran several times and left a message for the oyster cultivator regarding the patient request. Rev. Yoan Zelaya M.Div., [facility] Staff Tow Bar Driver/Palliative Care [id number] 08/23/18 8332 Clinical Encounter Type Visit Type Non Crisis Non Crisis Visit Introduction Visited With Patient;Health care provider Visit Length (minutes) 1-15 Patient Spiritual Assessment Spiritual Assessed Yes Presybeterian Affiliation Tenriism Active in anglican Yes Place of orthodoxy ([facility]) documented in this encounter* Lara Blanco RN - 08/26/2018 11:29 AM EDT Transition of Care for Cat Carroll Primary Care Provider Caitie Mclaughlin MD Spoke to Patient Via: Telephone Patient was Discharged From [facility] Discharge Diagnosis: STEMI presented to [facility] with complaints of acute onset of substernal chest pain with EKG consistent with inferior ST elevation IA. Patient was transferred to this facility for urgent cardiac catheterization. Admission Date: 08/23/18 Discharge Date: 08/25/18 Patient Stated Reason for Hospitalization: chest pain States current status is now: Improved, denies chest pain, feeling week and tired, otherwise I feel great Pertinent Inpatient Lab/Imaging/Screenings/Results: Lab Results Component Value Date WBC 8.04 08/23/2018 HGB 13.2 08/23/2018 HCT 40.4 08/23/2018 MCV 91.2 08/23/2018 EXTMCV 90.6 06/09/2017 PLT 200 08/23/2018 RBC 4.43 08/23/2018 Lab Results Component Value Date GLUCOSE 117 (H) 08/24/2018 CALCIUM 8.3 (L) 08/24/2018 NA 140 08/24/2018 K 3.8 08/24/2018 CL 108 08/24/2018 BUN 17 08/24/2018 CREATININE 0.85 08/24/2018 No results found for: HGBA1C Medication Reconciliation:see reviewed list START taking: aspirin Start taking on: 08/26/2018 atorvastatin (LIPITOR) nitroGLYCERIN (NITROSTAT) ticagrelor (BriLINTA) CHANGE how you take: metoprolol tartrate (LOPRESSOR) STOP taking: losartan 50 MG tablet (COZAAR) Medication Reconciliation Review: Home Medication List Reviewed: Yes Patient has All Needed New/Changed or Previous Home Medications: Yes Barriers to Taking Medications: N/A or None Patient is taking medications as directed on Hospital After Visit Summary: Yes Contact Information Provided for Future Questions or Concerns about Medications: Yes, Cooperative Extension Agent Functional Status: Patient Status: Clear Speech Patient Reported Current Level of Meeting ADLs: No Difficulty, Independent Mobility: Ambulates Nutrition: Appetite Fair, improving Respiratory: WNL Bowel Normal Stools Bladder No Problems Sleep: having trouble falling asleep and staying a sleep. Ongoing for ~ 1 month Pain: Presence: None, Checking Blood Sugar, No Weight No, daily weighing encouraged Blood Pressure No, daily BP encouraged will discuss with Cardiology Education Discussed: Reportable Symptoms Discussed: Fever/Chills/Malaise, Increased SOB or ALVARADO, Increased CP, Awakening in the Night with SOB, New or Increased Edema/Swelling of Extremity(s) and Decreased Activity Tolerance Discussed Criteria to: When to Call PCP, When to Seek Emergent Care with EMS/911/ED and When to [place] Additional Information Discussed: No Providers/Clinics: Home Health Care Arrangements Initiated: No Future Appointments Date Time Provider Department Center 09/01/2018 9:30 AM Crissy Orozco CNP [facility] 09/06/2018 10:30 AM [facility], [facility] 09/29/2018 11:00 AM Caitie Mclaughlin MD [facility] 10/12/2018 9:30 AM Tae Robertson MD [facility] Requested To: ? Appointment: Will Follow Up with Specialty or Other Preferred Provider documented in this encounter* Christine Silver, MISSY - 09/06/2018 11:08 AM EDT Cardiac Rehab session. Refer to daily session report in procedures. Supervising Physician: Dr. Jackson documented in this encounter* Demi Marquez CNP - 09/16/2018 10:08 AM EDT Subjective: MD Natalia Burnsbrian Carroll is a 83 y.o. female seen in the office today for Follow-up (Pt is here s/p d/c after having a cath and stents placed. She denies any cardiac concerns for todays OV.) . HPI: She was seen by [facility] heart and vascular physicians [place] office on September 16, 2018. She isan 83-year-old female with history of Kelly's esophagus, benign carcinoid tumor of the duodenum, skin cancer squamous cell, chronic kidney disease, t trigeminal neuralgia, osteoporosis, macular degeneration, hypertension, gastroesophageal reflux disease, fibromyalgia, floating kidney, vertigo andvitamin D deficiency. She presented to [place] with chest pain and heaviness that woke her from sleep. EKG showed STEMI in process. She was transferred to [facility] and Dr. Fair saw her and heart catheterization was done August 23, 2018. At that time he found acute thrombotic occlusion of the distal RCA and he placed a drug- eluting stent into the RCA and to the post AV segment. LAD had 25 to 50%. He used a 2.5 x 38 mm Synergy and a 2.75 x 20. Ejection fraction was 42%. She is currently participating in cardiac rehab. In the office today she admits to being tired. She is doing cardiac rehab but feels exhausted when she is done. We had a long discussion about the process that leads to the development of coronary disease and the decrease in the activity she is probably had done prior. She understands this is goingto take some time. I did reinforce that her aspirin and Brilinta are uninterrupted for 1 year and that no physician but our physicians would never tell her to stop. She will continue with cardiac rehab and see Dr. Robertson in October. 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 Rick thompson. Dr Hinds BLADDER REPAIR 1990 CATARACT EXT/ECCE Bilateral 2011 Dr [place] CHOLECYSTECTOMY CYST REMOVAL Right 2000 cyst removal from rt breast-benign DILATION AND CURETTAGE (D AND C) 1970 x 2 EGD 01/01/2015 Dr. ZavalaFkllos-Qxoysfmbs-Hqapgas's esophagus EGD 08/2014 Dr. Vinicius Pruett-Barrett's esophagitis biopsies negative for dysplasia. ESOPHAGOGASTRODUODENOSCOPY 01/04/2018 Dr. Zavala -biopsies performed-Kelly's esophagitis-carcinoid tumor posterior wall duodenum FRACTURE SURGERY Right Plates and screws in rt arm after fracture. dr Dolan [facility] LEFT HEART CATH N/A 08/23/2018 Procedure: Left Heart Cath; Surgeon: Glen Fair MD; Location: [facility]USTODIAN; Service: Cardiovascular HYSTERECTOMY 1975 KIDNEY SURGERY 1969 had exploratory surgery d/t floating kidney Dx KNEE SURGERY Left 1998 left knee arthoscopy LUMPECTOMY Left 1989 benign SQUAMOUS CELL CARCINOMA EXCISION x4 TOTAL KNEE ARTHROPLASTY Left 2012 dr dolan TUMOR REMOVAL 2011 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 Family History Problem Relation Age of Onset Diabetes Mother Heart disease Mother Heart disease Father Stroke Father Diabetes Sister Heart disease Brother Diabetes Brother Diabetes Maternal Uncle Bipolar disorder Daughter Diabetes Son Social History Tobacco Use Smoking status: Former Smoker Types: Cigarettes Last attempt to quit: 04/03/1976 Years since quittin.4 Smokeless tobacco: Never Used Substance Use Topics Alcohol use: No Drug use: No Patient's Medications New Prescriptions No medications on file Previous Medications ASPIRIN 81 MG EC TABLET Take 1 (one) tablet (81 mg total) by mouth daily Start: 08/26/18. CHOLESTYRAMINE (QUESTRAN) 4 GRAM PACKET Take 1 (one) packet by mouth daily with breakfast Hour prior or hour post . ERGOCALCIFEROL (ERGOCALCIFEROL) 50,000 UNIT CAPSULE Take 1 (one) capsule (50,000 Units total) by mouth every 14 (fourteen) days . FLUTICASONE PROPIONATE (FLOVENT HFA) 110 MCG/ACTUATION INHALER Inhale 2 (two) puffs 2 (two) times aday Rinse mouth after each use . MULTIVIT-MIN/IRON/FOLIC/LUTEIN (CENTRUM SILVER WOMEN ORAL) Take 1 tablet by mouth daily. OMEPRAZOLE (PRILOSEC) 40 MG CAPSULE Take 1 (one) capsule (40 mg total) by mouth daily . TOPIRAMATE (TOPAMAX) 50 MG TABLET Take 2 tablets in the morning , 1 In the evening . Modified Medications Modified Medication Previous Medication ATORVASTATIN (LIPITOR) 80 MG TABLET atorvastatin (LIPITOR) 80 MG tablet Take 1 (one) tablet (80 mg total) by mouth nightly . Take 1 (one) tablet (80 mg total) by mouth nightly . METOPROLOL TARTRATE (LOPRESSOR) 25 MG TABLET metoprolol tartrate (LOPRESSOR) 25 MG tablet Take 1 (one) tablet (25 mg total) by mouth 2 (two) times a day . Take 1 (one) tablet (25 mg total) by mouth 2 (two) times a day . NITROGLYCERIN (NITROSTAT) 0.4 MG SL TABLET nitroGLYCERIN (NITROSTAT) 0.[address] 1 (one) tablet (0.4 mg total) under the tongue every 5 (five) minutes as needed for chest pain , if no relief after 3 doses call [address] 1 (one) tablet (0.4 mg total) under the tongue every5 (five) minutes as needed for chest pain , if no relief after 3 doses call 911 . TICAGRELOR (BRILINTA) 90 MG TAB TABLET ticagrelor (BriLINTA) 90 mg Tab tablet Take 1 (one) tablet (90 mg total) by mouth 2 (two) times a day . Take 1 (one) tablet (90 mg total) by mouth 2 (two) times a day . Discontinued Medications No medications on file Allergies Allergen Reactions Aspirin GI Intolerance Indigestion Codeine Unknown Latex, Natural Rubber Unknown Emnqfwsf-Odvcqmrntcz-Xagwrixmg Hydrocortisone Rash Review of Systems Constitution: Negative for decreased appetite, malaise/fatigue and weight gain. HENT: Negative for hearing loss. Eyes: Negative for blurred vision and visual disturbance. Cardiovascular: Negative for chest pain, claudication, dyspnea on exertion, irregular heartbeat, leg swelling, near-syncope, orthopnea, palpitations, paroxysmal nocturnal dyspnea and syncope. Respiratory: Negative for cough, shortness of breath, sleep disturbances due to breathing, snoring and wheezing. Endocrine: Negative for cold intolerance and heat intolerance. Hematologic/Lymphatic: Negative for bleeding problem. Does not bruise/bleed easily. Skin: Negative for flushing and rash. Musculoskeletal: Negative for back pain, falls and myalgias. Gastrointestinal: Negative for abdominal pain, change in bowel habit and heartburn. Genitourinary: Negative for frequency and hematuria. Neurological: Negative for disturbances in coordination, dizziness, headaches, light-headedness, paresthesias and weakness. Psychiatric/Behavioral: Negative for altered mental status and depression. Allergic/Immunologic: Negative for environmental allergies and persistent infections. Objective: Physical Exam Constitutional: She is oriented to person, place, and time. She appears well- developed and well-nourished. No distress. HENT: Head: Normocephalic and atraumatic. Eyes: Pupils are equal, round, and reactive to light. Conjunctivae are normal. Right eye exhibits no discharge. Left eye exhibits no discharge. Neck: Normal range of motion. Neck supple. No hepatojugular reflux and no JVD present. Carotid bruit is not present. No thyromegaly present. Cardiovascular: Normal rate, regular rhythm, S1 normal, S2 normal, normal heart sounds, intact distal pulses and normal pulses. PMI is not displaced. Exam reveals no gallop. No murmur heard. Pulmonary/Chest: Effort normal and breath sounds normal. No respiratory distress. She has no wheezes. She has no rales. Abdominal: Soft. Bowel sounds are normal. Musculoskeletal: Normal range of motion. She exhibits no edema. Left ankle chronically swollen related to an injury Neurological: She is alert and oriented to person, place, and time. Skin: Skin is warm and dry. She is not diaphoretic. Psychiatric: She has a normal mood and affect. Her behavior is normal. Vitals: Vitals: 09/16/18 1008 BP: 116/71 Pulse: 69 SpO2: 99% Weight: 64.7 kg (142 lb 9.6 oz) Height: 5' 4 Lab Review: Treatment on 09/06/2018 Component Date Value ANGINA 09/06/2018 N MODE 09/06/2018 Recumbent Stepper Max HR 09/06/2018 95 Max Mets 09/06/2018 2.5 ENDING HR 09/06/2018 84 SESSION THR 09/06/2018 106 EXT - ADMIT TO CR DATE 09/06/2018 08/24/2018 STATUS 09/06/2018 Cardiac Phase II SESSION LIST 09/06/2018 Value:Session List: 08/25/2018N 08/26/2018N 08/30/2018N 1.09/06/2018Y Scheduled:4 Attended:1 Compliance:25% RESTING HR 09/06/2018 76 SESSION DATE 09/06/2018 09/06/2018 SESSION LENGTH 09/06/2018 0:47:24 SESSION NUMBER 09/06/2018 1 Admission on 08/23/2018, Discharged on 08/25/2018 Component Date Value Ventricular Rate 08/23/2018 67 Atrial Rate 08/23/2018 67 P-R Interval 08/23/2018 190 QRS Duration 08/23/2018 102 Q-T Interval 08/23/2018 420 QTC Calculation (Bezet) 08/23/2018 443 P [place] 08/23/2018 40 R [place] 08/23/2018 9 T [place] 08/23/2018 94 Sodium 08/23/2018 142 Potassium 08/23/2018 3.6 Chloride 08/23/2018 111* Bicarbonate 08/23/2018 23 Anion Gap 08/23/2018 12 Glucose 08/23/2018 128* BUN 08/23/2018 21 Creatinine 08/23/2018 1.04 eGFR 08/23/2018 50* BUN/Creatinine Ratio 08/23/2018 20.2* Total Protein 08/23/2018 6.8 Albumin 08/23/2018 3.4 Calcium 08/23/2018 8.7 Alkaline Phosphatase 08/23/2018 122 AST 08/23/2018 17 Total Bilirubin 08/23/2018 0.3 ALT 08/23/2018 20 Lipase 08/23/2018 105 Magnesium 08/23/2018 2.1 Troponin I 08/23/2018 152* Troponin I Interpretation 08/23/2018 Possible acute cardiac injury. Troponin I 08/23/2018 23,469* Delta % Troponin I 08/23/2018 15,340* Interp Troponin I Delta * 08/23/2018 Probable acute injury or myocardial infarction. NT-Pro BNP 08/23/2018 58 D-Dimer 08/23/2018 0.37 APTT 08/23/2018 24 Protime (PT) 08/23/2018 13.2 INR 08/23/2018 1.0 WBC 08/23/2018 8.04 RBC 08/23/2018 4.43 Hemoglobin 08/23/2018 13.2 Hematocrit 08/23/2018 40.4 MCV 08/23/2018 91.2 MCH 08/23/2018 29.8 MCHC 08/23/2018 32.7 Platelets 08/23/2018 200 RDW - CV 08/23/2018 13.2 MPV 08/23/2018 10.4 Neutrophils 08/23/2018 32.2 Lymphocytes 08/23/2018 58.8 Monocytes 08/23/2018 7.5 Eosinophils 08/23/2018 0.9 Basophils 08/23/2018 0.4 IG Percent 08/23/2018 0.20 Neutrophils Abs 08/23/2018 2.59 Lymphocytes Abs 08/23/2018 4.73* Monocytes Abs 08/23/2018 0.60 Eosinophils Abs 08/23/2018 0.07 Basophils Abs 08/23/2018 0.03 IG Absolute 08/23/2018 0.02 Nucleated RBC 08/23/2018 0.0 Nucleated RBC Abs 08/23/2018 0.00 Ventricular Rate 08/23/2018 63 Atrial Rate 08/23/2018 63 P-R Interval 08/23/2018 182 QRS Duration 08/23/2018 92 Q-T Interval 08/23/2018 452 QTC Calculation (Bezet) 08/23/2018 462 P [place] 08/23/2018 42 R [place] 08/23/2018 -26 T [place] 08/23/2018 -52 Act Kaolin 08/23/2018 153 Act Kaolin 08/23/2018 191 Sodium 08/24/2018 140 Potassium 08/24/2018 3.8 Chloride 08/24/2018 108 Bicarbonate 08/24/2018 22 Anion Gap 08/24/2018 14 Glucose 08/24/2018 117* BUN 08/24/2018 17 Creatinine 08/24/2018 0.85 eGFR 08/24/2018 64 BUN/Creatinine Ratio 08/24/2018 20.0 Calcium 08/24/2018 8.3* Ventricular Rate 08/24/2018 65 Atrial Rate 08/24/2018 65 P-R Interval 08/24/2018 176 QRS Duration 08/24/2018 94 Q-T Interval 08/24/2018 460 QTC Calculation (Bezet) 08/24/2018 478 P [place] 08/24/2018 -13 R [place] 08/24/2018 -23 T [place] 08/24/2018 -71 Lab Draw on 07/08/2018 Component Date Value Culture 07/08/2018 One or more organisms < 10,000 CFU/mL of normal urogenital microbiota. Not processed further. Color, Urine 07/08/2018 Colorless Clarity, Urine 07/08/2018 Clear Specific [place] 07/08/2018 1.003* pH, Urine 07/08/2018 6.0 Protein, Urine 07/08/2018 Negative Glucose, Urine 07/08/2018 Negative Ketones, Urine 07/08/2018 Negative Bilirubin, Urine 07/08/2018 Negative Urobilinogen, Urine 07/08/2018 <2.0 Blood, Urine 07/08/2018 Negative Nitrite, Urine 07/08/2018 Negative Leukocyte Esterase, Urine 07/08/2018 Negative WBCs, Urine 07/08/2018 <1 RBCs, Urine 07/08/2018 1 Bacteria, Urine 07/08/2018 None Seen Squamous Epithelial 07/08/2018 <1 Office Visit on 06/30/2018 Component Date Value Spec Grav, UA 06/30/2018 1.020 pH, UA 06/30/2018 6.0 Protein, UA 06/30/2018 Negative Glucose, UA 06/30/2018 Negative Ketones, UA 06/30/2018 Negative Bilirubin, UA 06/30/2018 Negative Urobilinogen, UA 06/30/2018 0.2 Blood, UA 06/30/2018 Trace-lysed* Nitrite, UA 06/30/2018 Negative Leukocyte Esterase, UA 06/30/2018 Trace* Culture 06/30/2018 > 10,000 CFU/mL mixture of normal urogenital microbiota; not processed further. Lab Draw on 06/23/2018 Component Date Value Vit D, 25-Hydroxy 06/23/2018 48 Sodium 06/23/2018 139 Potassium 06/23/2018 4.0 Chloride 06/23/2018 108 Bicarbonate 06/23/2018 23 Anion Gap 06/23/2018 12 Glucose 06/23/2018 116* BUN 06/23/2018 23 Creatinine 06/23/2018 1.12 eGFR 06/23/2018 46* BUN/Creatinine Ratio 06/23/2018 20.5* Total Protein 06/23/2018 7.3 Albumin 06/23/2018 3.6 Calcium 06/23/2018 8.9 Alkaline Phosphatase 06/23/2018 112 AST 06/23/2018 15 Total Bilirubin 06/23/2018 0.3 ALT 06/23/2018 27 Office Visit on 06/23/2018 Component Date Value Spec Grav, UA 06/23/2018 1.015 pH, UA 06/23/2018 6.5 Protein, UA 06/23/2018 Negative Glucose, UA 06/23/2018 Negative Ketones, UA 06/23/2018 Negative Bilirubin, UA 06/23/2018 Negative Urobilinogen, UA 06/23/2018 0.2 Blood, UA 06/23/2018 Trace-intact* Nitrite, UA 06/23/2018 Positive* Leukocyte Esterase, UA 06/23/2018 Trace* Culture 06/23/2018 >100,000 CFU/mL Escherichia coli* Hospital Outpatient Visit on 03/22/2018 Component Date Value Glucose 03/22/2018 105* BUN 03/22/2018 14 Creatinine 03/22/2018 0.95 eGFR 03/22/2018 57* eGFR 03/22/2018 >=60 Calcium 03/22/2018 9.0 Sodium 03/22/2018 137 Potassium 03/22/2018 4.1 Chloride 03/22/2018 106 CO2 03/22/2018 25 Magnesium 03/22/2018 1.7 Vitamin D, 25-Hydroxy, T* 03/22/2018 97 Assessment & Plan: CAD (coronary artery disease) She is having some fatigue and having a little difficulty getting used to the new medicines. We didreview them. She understands the importance of her medications. We talked about Brilinta and aspirin and that she needs to continue it for 1 year uninterrupted. She will continue with cardiac rehab and follow-up with Dr. Robertson in October Hypertension Blood pressure controlled in the office today. Continue same medications and monitor Hyperlipidemia Currently on high intensity statin with atorvastatin 80 mg daily. Lipids will be managed by primarycare provider. Recommend ongoing diet and exercise Orders Placed This Encounter ticagrelor (BriLINTA) 90 mg Tab tablet Sig: Take 1 (one) tablet (90 mg total) by mouth 2 (two) times a day . Dispense: 180 tablet Refill: 3 atorvastatin (LIPITOR) 80 MG tablet Sig: Take 1 (one) tablet (80 mg total) by mouth nightly . Dispense: 90 tablet Refill: 3 metoprolol tartrate (LOPRESSOR) 25 MG tablet Sig: Take 1 (one) tablet (25 mg total) by mouth 2 (two) times a day . Dispense: 180 tablet Refill: 3 nitroGLYCERIN (NITROSTAT) 0.4 MG SL tablet Sig: Place 1 (one) tablet (0.4 mg total) under the tongue every 5 (five) minutes as needed for chest pain , if no relief after 3 doses call 911 . Dispense: 25 tablet Refill: 5 Other Tests Ordered: No orders of the defined types were placed in this encounter. Follow Up Ordered: Return for Eugene Robertson. Referring No ref. provider found Demi Marquez CNP documented in this encounter* Gisell Desai CNP - 12/22/2018 10:56 AM EDT Patient is here today for a Wellness visit. She states she received a call from Dr. Mcalughlin's office scheduling her for a wellness visit. Once this provider looked in the chart it is noted she signed an AMALIA to be seen by Dr. Peña. Explained to patient that her apt here must have been a mistake, she can only be seen by one PCP. She states she would like to continue to see Dr. Peña. Encouraged patient to call their office and make an apt for Wellness visit at [facility]. documented in this encounter* Tae Robertson MD - 01/18/2019 10:14 AM EST OFFICE CONSULTATION NOTE [facility] [address] [facility] [address] [facility] [id number] Physicians: Americo Peña MD Subjective: Cat Carroll is a 83 y.o. female seen in the office today for Follow-up (3 mo f/u. Pt has completed cardiac rehab. pt states she has been experiencing chest pressure and back pain since attending exercise classes at [place]. Pt has questions about upcoming endoscopy with Dr. Zavala. ) . HPI: The patient is a very pleasant 83-year-old female with a history of Kelly's esophagus, benign carcinoid tumor of the duodenum, squamous cell skin cancer, mild chronic kidney disease, osteoporosis, macular degeneration, hypertension, GERD, and fibromyalgia. She was seen in August following transfer from outside hospital for inferior STEMI. She was found to have acute thrombotic occlusion of the distal right coronary artery on 08/23/2018. She received thrombectomy followed by PCI with drug-elutingstent of the distal RCA and PDA. She received a 2.5 x 38 mm and a 2.75 x 20 mm Synergy stent. Her EF was moderately impaired at the time. She participated in phase 2 cardiac rehab. The patient denies any anginal type chest discomfort presently. She is doing water aerobics for 2 hours at a time. She states she developed central chest pain which was clearly pleuritic in nature. This is been going on for the last 3 days. She also had back pain that has resolved. She denies any orthopnea, paroxysmal nocturnal dyspnea, syncope, or near syncope. She is apparently pending repeat endoscopy. Assessment & Plan: Hyperlipidemia Lipids are followed through primary care. She remains on high intensity statin therapy. Hypertension Her blood pressure is elevated today. It has been under excellent control previously. I have asked her to check her blood pressures at home. CAD (coronary artery disease) The patient has no anginal chest discomfort. Her chest discomfort is clearly musculoskeletal. I would continue current medical therapy. She is on dual antiplatelet therapy. As far as endoscopy is concerned, she may not stop dual antiplatelet therapy until March at the earliest. At that time, she may hold her dual antiplatelet therapy for 3 days to be restarted again as soon as feasible. Follow Up Ordered: Return in about 6 months (around 07/19/2019). 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 prior biopsies no dysplasia last biopsies 08/2014 Benign carcinoid tumor of the duodenum 2014 Cancer (HCC) skin cancer-squamous cells removed Chronic kidney disease (CKD), stage III (moderate) (HCC) 09/12/2016 EGFR 43 Fibromyalgia Floating kidney GERD (gastroesophageal reflux disease) 2010 Hypertension 2000 Macular degeneration 2017 Myocardial infarction (HCC) 08/2018 STEMI Osteoporosis 2010 Trigeminal neuralgia of left side of face 2005 Vertigo Vitamin D deficiency 2016 Past Surgical History: Procedure Laterality Date BACK SURGERY 2013 fusion and rods placed in lower back. Rick thompson. Dr Hinds BLADDER REPAIR 1989 CATARACT EXT/ECCE Bilateral 2011 Dr [place] CHOLECYSTECTOMY CYST REMOVAL Right 2000 cyst removal from rt breast-benign DILATION AND CURETTAGE (D AND C) 1970 x 2 EGD 01/01/2015 Dr. AlemanPhwroa-Wzaeaqqud-Zsyvghk's esophagus EGD 08/2014 Dr. Vinicius Pruett-Barrett's esophagitis biopsies negative for dysplasia. ESOPHAGOGASTRODUODENOSCOPY 01/04/2018 Dr. Zavala -biopsies performed-Kelly's esophagitis-carcinoid tumor posterior wall duodenum FRACTURE SURGERY Right Plates and screws in rt arm after fracture. dr Dolan [facility] LEFT HEART CATH N/A 08/23/2018 Procedure: Left Heart Cath; Surgeon: Glen Fair MD; Location: CUSTODIAN; Service: Cardiovascular HYSTERECTOMY 1975 KIDNEY SURGERY 1969 had exploratory surgery d/t floating kidney Dx KNEE SURGERY Left 1997 left knee arthoscopy LUMPECTOMY Left 1989 benign SQUAMOUS CELL CARCINOMA EXCISION x4 TOTAL KNEE ARTHROPLASTY Left 2012 dr dolan TUMOR REMOVAL 2012 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 Family History Problem Relation Age of Onset Diabetes Mother Heart disease Mother Heart disease Father Stroke Father Diabetes Sister Heart disease Brother Diabetes Brother Diabetes Maternal Uncle Bipolar disorder Daughter Diabetes Son Social History Tobacco Use Smoking status: Former Smoker Packs/day: 0.00 Types: Cigarettes Last attempt to quit: 04/03/1976 Years since quittin.8 Smokeless tobacco: Never Used Substance Use Topics Alcohol use: No Drug use: No Current Outpatient Medications Medication Sig Dispense Refill aspirin 81 MG EC tablet Take 81 mg by mouth daily . atorvastatin (LIPITOR) 80 MG tablet Take 1 (one) tablet (80 mg total) by mouth nightly . 90 tablet 3 cholestyramine (QUESTRAN) 4 gram packet Take 1 (one) packet by mouth daily with breakfast Hour prior or hour post . 90 each 3 ergocalciferol (ERGOCALCIFEROL) 50,000 unit capsule Take 1 (one) capsule (50,000 Units total) by mouth every 14 (fourteen) days . 7 capsule 3 fluticasone propionate (FLOVENT HFA) 110 mcg/actuation inhaler Inhale 2 (two) puffs 2 (two) times aday Rinse mouth after each use . 3 Inhaler 3 gabapentin (NEURONTIN) 300 MG capsule Take 300 capsules by mouth 3 (three) times a day . 0 levocetirizine (XYZAL) 5 MG tablet Take 5 mg by mouth every evening . metoprolol tartrate (LOPRESSOR) 25 MG tablet Take 1 (one) tablet (25 mg total) by mouth 2 (two) times a day . 180 tablet 3 MULTIVIT-MIN/IRON/FOLIC/LUTEIN (CENTRUM SILVER WOMEN ORAL) Take 1 tablet by mouth daily. nitroGLYCERIN (NITROSTAT) 0.[address] 1 (one) tablet (0.4 mg total) under the tongue every 5 (five) minutes as needed for chest pain , if no relief after 3 doses call 911 . 25 tablet 5 omeprazole (PRILOSEC) 40 MG capsule Take 1 (one) capsule (40 mg total) by mouth daily . 90 capsule 3 ticagrelor (BriLINTA) 90 mg Tab tablet Take 1 (one) tablet (90 mg total) by mouth 2 (two) times a day . 180 tablet 3 topiramate (TOPAMAX) 50 MG tablet 75 mg every morning. 50 mg every evening. 75 mg at bedtime . No current facility-administered medications for this visit. Allergies Allergen Reactions Aspirin GI Intolerance Indigestion Codeine Unknown Latex, Natural Rubber Unknown Zigftwte-Nepgfcjbjpg-Wiuqarmas Hydrocortisone Rash Review of Systems Constitution: Negative for diaphoresis, malaise/fatigue, weight gain and weight loss. HENT: Negative for hearing loss, nosebleeds and tinnitus. Eyes: Negative for blurred vision and visual disturbance. Cardiovascular: Positive for chest pain (Pleuritic) and leg swelling. Negative for claudication, cyanosis, dyspnea on exertion, irregular heartbeat, near- syncope, orthopnea, palpitations, paroxysmal nocturnal dyspnea and syncope. Respiratory: Negative for hemoptysis, shortness of breath and snoring. Endocrine: Negative for cold intolerance and heat intolerance. Hematologic/Lymphatic: Does not bruise/bleed easily. Skin: Negative for flushing, poor wound healing and rash. Musculoskeletal: Positive for back pain. Negative for muscle weakness and myalgias. Gastrointestinal: Negative for abdominal pain, change in bowel habit, melena, nausea and vomiting. Genitourinary: Negative for decreased libido and hematuria. Neurological: Negative for loss of balance and numbness. Psychiatric/Behavioral: Negative for memory loss. The patient is not nervous/anxious. Overview of Problems Addressed: Problem Cad (Coronary Artery Disease) At that time he found acute thrombotic occlusion of the distal RCA and he placed a drug-eluting stent into the RCA and to the post AV segment. LAD had 25 to 50%. He used a 2.5 x 38 mm Synergy and a 2.75 x 20. Ejection fraction was 42% Hypertension Hyperlipidemia Objective: Physical Exam Constitutional: She is oriented to person, place, and time. She appears well- developed and well-nourished. HENT: Head: Normocephalic. Eyes: Pupils are equal, round, and reactive to light. Conjunctivae and EOM are normal. No scleral icterus. Neck: Normal range of motion. Neck supple. No JVD present. No tracheal deviation present. No thyromegaly present. Cardiovascular: Normal rate, regular rhythm, S1 normal, S2 normal, normal heart sounds and intact distal pulses. Exam reveals no friction rub. No murmur heard. Pulmonary/Chest: Breath sounds normal. No respiratory distress. She has no wheezes. She has no rales. Her chest wall is tender to palpation. Abdominal: Soft. Bowel sounds are normal. She exhibits no distension and no mass. There is no hepatosplenomegaly. There is no tenderness. Musculoskeletal: Normal range of motion. General: Edema present. Comments: Her left leg is chronically swollen secondary to prior injury. She is wearing support stockings. Lymphadenopathy: She has no cervical adenopathy. Neurological: She is alert and oriented to person, place, and time. Skin: Skin is warm and dry. Scattered ecchymoses. Psychiatric: She has a normal mood and affect. Her behavior is normal. Vitals: Vitals: 01/18/19 0957 BP: (!) 160/74 BP Location: Left arm Patient Position: Sitting Pulse: 61 SpO2: 98% Weight: 63.8 kg (140 lb 9.6 oz) Height: 5' 4 Orders Placed This Encounter topiramate (TOPAMAX) 50 MG tablet Thank you for allowing me to assist you in the cardiovascular care of this patient. Please don't hesitate to contact me if you have any questions regarding these thoughts. Tae Robertson MD documented in this encounter* Margarita Henley LPN - 02/22/2019 9:20 AM EST Review of Systems Constitutional: Positive for activity change, appetite change and fatigue. HENT: Positive for facial swelling and postnasal drip. Eyes: Positive for pain. Genitourinary: Positive for urgency. Involuntary urination Neurological: Positive for dizziness and light-headedness. Hematological: Bruises/bleeds easily. * Brayan Mena MD - 02/22/2019 9:06 AM EST Subjective Patient ID: Cat Carroll is a 83 y.o. female. Neurologic Problem Primary symptoms comment: Facial pain. This is a chronic problem. Episode onset: 20 years ago. The neurological problem developed insidiously. The problem has been waxing and waning since onset. There was left-sided and facial focality noted. Associated symptoms include dizziness and light-headedness. Pertinent negatives include no confusion, nausea or vomiting. Past treatments include medication. The treatment provided mild relief. There is no history of a CVA, head trauma, mood changes or seizures. Patient with history of trigeminal neuralgia and diagnosed by Dr. Sweet more than 20 years ago. She also has been evaluated at [facility]. She started gabapentin and later carbamazepine. He thinks that gabapentin caused her to be dizzy and unsteady. Currently she is using gabapentin 400 mg 3 times a day and Topamax 50 mg 3 times a day. She has been on carbamazepine, topiramate, gabapentin, acupuncture, in the past. The acupuncture has helped but caused her $125 for a session and she 3 sessions a week. She was unable to afford it. Her pain is described as sharp shooting electrical pain mainly on the left V2 distribution and occasionally V1. She will have some residual soreness on the left supraorbital area. She denies any history of migraine, sinusitis, hearing loss, tinnitus, vertigo, or dental problems. Cold wind might trigger the pain and occasionally chewing might also cause the pain. No change in vision. No speech difficulty. She was unsure of the dose of carbamazepine. Past medical history include hypertension, hyperlipidemia, coronary artery disease, osteoarthritis,tremors, Kelly's esophagus, chronic kidney disease, fibromyalgia, gastroesophageal reflux disorder, macular degeneration. No tobacco, alcohol, or recreational drug use. Family history is negative for trigeminal neuralgia but positive for tremors. The following portions of the patient's history were reviewed and updated as appropriate: allergies, current medications, past family history, past medical history, past social history, past surgicalhistory and problem list. Review of Systems Gastrointestinal: Negative for nausea and vomiting. Neurological: Positive for dizziness and light-headedness. Psychiatric/Behavioral: Negative for confusion. All systems reviewed and negative except pertinent positives and negatives documented in the History of Present Illness (HPI). Objective Neurologic Exam Mental Status Oriented to person, place, and time. Attention: normal. Speech: speech is normal Level of consciousness: alert Knowledge: good. Normal comprehension. Cranial Nerves CN II Visual leos full to confrontation. CN III, IV, Pupils are equal, round, and reactive to light. Extraocular motions are normal. CN V Facial sensation intact. Right facial sensation deficit: none Left facial sensation deficit: none CN VII Facial expression full, symmetric. Right facial weakness: none Left facial weakness: none CN VIII CN VIII normal. Hearing: intact CN IX, X CN IX normal. CN X normal. Palate: symmetric CN XI CN XI normal. CN XII CN XII normal. Tongue deviation: none Motor Exam Muscle bulk: normal Overall muscle tone: normal Right arm pronator drift: absent Left arm pronator drift: absent Strength Strength 5/5 throughout. Right neck flexion: 5/5 Left neck flexion: 5/5 Right neck extension: 5/5 Left neck extension: 5/5 Right deltoid: 5/5 Left deltoid: 5/5 Right biceps: 5/5 Left biceps: 5/5 Right triceps: 5/5 Left triceps: 5/5 Right wrist flexion: 5/5 Left wrist flexion: 5/5 Right wrist extension: 5/5 Left wrist extension: 5/5 Right interossei: 5/5 Left interossei: 5/5 Right iliopsoas: 5/5 Left iliopsoas: 5/5 Right quadriceps: 5/5 Left quadriceps: 5/5 Right hamstrin/5 Left hamstrin/5 Right glutei: 5/5 Left glutei: 5/5 Right anterior tibial: 5/5 Left anterior tibial: 5/5 Right posterior tibial: 5/5 Left posterior tibial: 5/5 Right peroneal: 5/5 Left peroneal: 5/5 Right gastroc: 5/5 Left gastroc: 5/5 Sensory Exam Light touch normal. Vibration normal. Proprioception normal. Pinprick normal. Gait, Coordination, and Reflexes Gait Gait: normal Coordination Finger to nose coordination: normal Tremor Resting tremor: absent Intention tremor: absent Action tremor: absent Reflexes Right brachioradialis: 2+ Left brachioradialis: 2+ Right biceps: 2+ Left biceps: 2+ Right triceps: 2+ Left triceps: 2+ Right patellar: 2+ Left patellar: 2+ Right achilles: 2+ Left achilles: 2+ Right plantar: normal Left plantar: normal Right ankle clonus: absent Left ankle clonus: absent Physical Exam Vitals signs and nursing note reviewed. Constitutional: Appearance: She is well-developed. HENT: Head: Normocephalic and atraumatic. Eyes: General: Lids are normal. Extraocular Movements: EOM normal. Conjunctiva/sclera: Conjunctivae normal. Pupils: Pupils are equal, round, and reactive to light. Neck: Musculoskeletal: Normal range of motion and neck supple. Vascular: No carotid bruit. Trachea: Phonation normal. Cardiovascular: Rate and Rhythm: Normal rate and regular rhythm. Pulses: Normal pulses. Pulmonary: Effort: Pulmonary effort is normal. Breath sounds: Normal breath sounds. Abdominal: General: Bowel sounds are normal. Palpations: Abdomen is soft. Musculoskeletal: Normal range of motion. Skin: General: Skin is warm and dry. Neurological: Mental Status: She is alert and oriented to person, place, and time. She is not disoriented. Cranial Nerves: No cranial nerve deficit. Sensory: No sensory deficit. Motor: No tremor, atrophy or abnormal muscle tone. Coordination: Coordination normal. Jftglw-Zfis-Qyncbz Test normal. Gait: Gait is intact. Gait normal. Deep Tendon Reflexes: Strength normal and reflexes are normal and symmetric. Reflex Scores: Tricep reflexes are 2+ on the right side and 2+ on the left side. Bicep reflexes are 2+ on the right side and 2+ on the left side. Brachioradialis reflexes are 2+ on the right side and 2+ on the left side. Patellar reflexes are 2+ on the right side and 2+ on the left side. Achilles reflexes are 2+ on the right side and 2+ on the left side. Comments: No TMJ tenderness or crepitus. No palpable arterial cords. No trigger points. Speech is fluent and is spontaneous. Face is symmetrical and facial sensation sensation is intact to vibration,light touch, temperature, and pinprick. Psychiatric: Speech: Speech normal. Behavior: Behavior normal. Assessment/Plan: Patient with chronic left trigeminal neuralgia initially diagnosed more than 20 years ago affectingleft V2 and occasionally V1 distribution. Differential diagnosis includes atypical facial pain. Shehad went for years without any attacks but has came back. Current medication include Topamax 50 mg 3 times a day and gabapentin 400 mg 3 times a day. But she thinks the gabapentin has been causing her to be dizzy and unsteady. Suggestion: Start slow taper of gabapentin by 400 mg every 2 weeks until off. The next option to slowly increase the Topamax dose as tolerated. Reinstitute carbamazepine is another option. Increase fluids, monitor for dizziness, cognitive dysfunction, speech hesitancy, paresthesias, nephrolithiasis,, glaucoma, or metabolic acidosis with Topamax. Other therapeutic options include baclofen, Dilantin, or Lamictal. She may continue using ice pack which has helped. Avoid trigger factors or precipitating factors. We will check a brain MRI and MRA. We will also check sed rate and CRP. Diagnostic impression, plans, and suggestions were explained and discussed. Records from the referring physician were reviewed. Clinical imaging study/ labs/medical tests were ordered/reviewed. Indications, risk, complications, side effects and alternatives of medications/therapeutics were explained and discussed. Monitor closely for any side effects or complications of medications. Questions andconcerns were addressed. Please call or contact us for any problems. She will call us for an updatein 1 to 2 months. I will see her for follow-up visit in 4 months. Starla little: Portions of this chart was created using Evolve IP voice recognition software. Occasional wrong-word or sound-like substitutions may have occurred due to inherent limitations of the voice recognition software. Please read the chart carefully and recognize, using context, where the substitutions have occurred. Problem List Items Addressed This Visit None Visit Diagnoses Trigeminal neuralgia Relevant Orders MRA Brain Without Contrast MR Brain Without Contrast Sedimentation Rate CRP, Inflammation documented in this encounter* Tae Robertson MD - 06/14/2019 2:52 PM EDT OFFICE CONSULTATION NOTE [facility] [address] [facility] [address] [facility] [id number] Physicians: Americo Peña MD Subjective: Cat Carroll is a 84 y.o. female seen in the office today for Follow-up (no complaints. medications reviewed- refills pending ) . HPI: This was a telephone visit. I spent 7 minutes on the phone with her. Ms. Carroll is a very pleasant 84-year-old female with a past medical history significant for coronary artery disease. She was seen in August 2018 following transfer from outside hospital with [facility]. She was found to have acute thrombotic occlusion of the distal right coronary artery on 08/23/2018. She underwent thrombectomy with PCI and drug-eluting stent to the distal RCA and PDA. She received a 2.5 x 38 mm and 2.75 x 20 mm Synergy drug-eluting stent. Her EF was moderately impaired at the time. In addition, she has a history of Kelly's esophagus, benign carcinoid tumor with duodenum, squamous cell skin cancer, mild chronic kidney disease, osteoporosis, macular degeneration, hyperte nsion, GERD, and fibromyalgia. She also has a history of trigeminal neuralgia. The patient denies any anginal type chest discomfort. Her breathing is baseline. She denies any orthopnea, paroxysmal nocturnal dyspnea, syncope, or near syncope. She had been exercising regularly but she stopped secondary to the pandemic. She was doing water aerobics 3 times a week. She also had arecent MRI of the brain. She tells me there was some question of aneurysm. She was evaluated by neurology who recommended that she stop strenuous exercise. She is pending further evaluation by them. She is undergoing acupuncture for pain in her face which she states has improved her symptoms. Assessment & Plan: Hyperlipidemia She remains on high intensity statin therapy. Her lipids are followed through primary care. Hypertension Her blood pressure is acceptable on current medical therapy. CAD (coronary artery disease) She denies any anginal type chest discomfort at this time. She is on dual antiplatelet therapy. I would continue current medical therapy. Trigeminal neuralgia of left side of face She is being followed by neurology. She did have MRI of the brain in February 2019. She was told that she may have an aneurysm. This is also being followed by neurology. I reviewed the report from that study did mention technical limitations. Follow Up Ordered: Return in about 6 months (around 12/14/2019). 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 prior biopsies no dysplasia last biopsies 08/2014 Benign carcinoid tumor of the duodenum 2014 Cancer (HCC) skin cancer-squamous cells removed Chronic kidney disease (CKD), stage III (moderate) ([facility]) 09/12/2016 EGFR 43 Fibromyalgia Floating kidney GERD (gastroesophageal reflux disease) 2010 Hypertension 2000 Macular degeneration 2017 Myocardial infarction ([facility]) 08/2018 STEMI Osteoporosis 2010 Trigeminal neuralgia of left side of face 2004 Vertigo Vitamin D deficiency 2016 Past Surgical History: Procedure Laterality Date BACK SURGERY 2013 fusion and rods placed in lower back. Rick thompson. Dr Hinds BLADDER REPAIR 1989 CATARACT EXT/ECCE Bilateral 2011 Dr [place]ula CHOLECYSTECTOMY CYST REMOVAL Right 2000 cyst removal from rt breast-benign DILATION AND CURETTAGE (D AND C) 1970 x 2 EGD 01/01/2015 Dr. ZavalaSpzdxx-Hvytlbuff-Vnyabnv's esophagus EGD 08/2014 Dr. Vinicius Pruett-Barrett's esophagitis biopsies negative for dysplasia. ESOPHAGOGASTRODUODENOSCOPY 01/04/2018 Dr. Zavala -biopsies performed-Kelly's esophagitis-carcinoid tumor posterior wall duodenum FRACTURE SURGERY Right Plates and screws in rt arm after fracture. dr Dolan LEFT HEART CATH N/A 08/23/2018 Procedure: Left Heart Cath; Surgeon: Glen Fair MD; Location: [facility]; Service: Cardiovascular HYSTERECTOMY 1975 KIDNEY SURGERY 1969 had exploratory surgery d/t floating kidney Dx KNEE SURGERY Left 1997 left knee arthoscopy LUMPECTOMY Left 1989 benign SQUAMOUS CELL CARCINOMA EXCISION x4 TOTAL KNEE ARTHROPLASTY Left 2012 dr dolan TUMOR REMOVAL 2011 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 Family History Problem Relation Age of Onset Diabetes Mother Heart disease Mother Heart disease Father Stroke Father Diabetes Sister Dementia Sister Heart disease Brother Diabetes Brother Diabetes Maternal Uncle Bipolar disorder Daughter Diabetes Son Cancer Neg Hx Aneurysm Neg Hx Seizures Neg Hx Social History Tobacco Use Smoking status: Former Smoker Packs/day: 0.00 Types: Cigarettes Last attempt to quit: 04/03/1976 Years since quittin.2 Smokeless tobacco: Never Used Substance Use Topics Alcohol use: No Drug use: No Current Outpatient Medications Medication Sig Dispense Refill aspirin 81 MG EC tablet Take 81 mg by mouth daily . cholestyramine (QUESTRAN) 4 gram packet Take 1 (one) packet by mouth daily with breakfast Hour prior or hour post . 90 each 3 ergocalciferol (ERGOCALCIFEROL) 50,000 unit capsule Take 1 (one) capsule (50,000 Units total) by mouth every 14 (fourteen) days . 7 capsule 3 fluticasone propionate (FLOVENT HFA) 110 mcg/actuation inhaler Inhale 2 (two) puffs 2 (two) times aday Rinse mouth after each use . 3 Inhaler 3 levocetirizine (XYZAL) 5 MG tablet Take 5 mg by mouth every evening . MULTIVIT-MIN/IRON/FOLIC/LUTEIN (CENTRUM SILVER WOMEN ORAL) Take 1 tablet by mouth daily. nitroGLYCERIN (NITROSTAT) 0.[address] 1 (one) tablet (0.4 mg total) under the tongue every 5 (five) minutes as needed for chest pain , if no relief after 3 doses call 911 . 25 tablet 5 omeprazole (PRILOSEC) 40 MG capsule Take 1 (one) capsule (40 mg total) by mouth daily . 90 capsule 3 topiramate (TOPAMAX) 50 MG tablet 100 mg in the morning and 50 mg in the evening . atorvastatin (LIPITOR) 80 MG tablet Take 1 (one) tablet (80 mg total) by mouth nightly . 90 tablet 3 metoprolol tartrate (LOPRESSOR) 25 MG tablet Take 1 (one) tablet (25 mg total) by mouth 2 (two) times a day . 180 tablet 3 ticagrelor (BriLINTA) 90 mg Tab tablet Take 1 (one) tablet (90 mg total) by mouth 2 (two) times a day . 180 tablet 3 No current facility-administered medications for this visit. Allergies Allergen Reactions Aspirin GI Intolerance Indigestion Codeine Unknown Latex, Natural Rubber Unknown Iucguzkv-Gcaxklzkcwt-Byevbbivn Hydrocortisone Rash Review of Systems Constitution: Negative for diaphoresis, malaise/fatigue, weight gain and weight loss. HENT: Negative for hearing loss, nosebleeds and tinnitus. Eyes: Negative for blurred vision and visual disturbance. Cardiovascular: Negative for chest pain, claudication, cyanosis, dyspnea on exertion, irregular heartbeat, leg swelling, near-syncope, orthopnea, palpitations, paroxysmal nocturnal dyspnea and syncope. Respiratory: Negative for hemoptysis, shortness of breath and snoring. Endocrine: Negative for cold intolerance and heat intolerance. Hematologic/Lymphatic: Does not bruise/bleed easily. Skin: Negative for flushing, poor wound healing and rash. Musculoskeletal: Positive for back pain. Negative for muscle weakness and myalgias. Gastrointestinal: Negative for abdominal pain, change in bowel habit, melena, nausea and vomiting. Genitourinary: Negative for decreased libido and hematuria. Neurological: Negative for loss of balance and numbness. Severe facial pain secondary to trigeminal neuralgia Psychiatric/Behavioral: Negative for memory loss. The patient is not nervous/anxious. Overview of Problems Addressed: Problem Cad (Coronary Artery Disease) At that time he found acute thrombotic occlusion of the distal RCA and he placed a drug-eluting stent into the RCA and to the post AV segment. LAD had 25 to 50%. He used a 2.5 x 38 mm Synergy and a 2.75 x 20. Ejection fraction was 42% Hypertension Hyperlipidemia Trigeminal Neuralgia of Left Side of Face Topamax 25 mg twice a day for headaches Objective: Physical Exam Vitals: Vitals: 06/14/19 1429 BP: 136/63 BP Location: Left arm Patient Position: Sitting Pulse: 65 Weight: 59.4 kg (131 lb) Orders Placed This Encounter ticagrelor (BriLINTA) 90 mg Tab tablet atorvastatin (LIPITOR) 80 MG tablet metoprolol tartrate (LOPRESSOR) 25 MG tablet Thank you for allowing me to assist you in the cardiovascular care of this patient. Please don't hesitate to contact me if you have any questions regarding these thoughts. Tae Robertson MD documented in this encounter* Tae Robertson MD - 01/17/2020 10:45 AM EST OFFICE CONSULTATION NOTE [facility] [address] [facility] [address] [facility] [id number] Physicians: Gisell Desai, CONTINUOUS IMPROVEMENT BLACK [employer]T Subjective: Cat Carroll is a 84 y.o. female seen in the office today for Follow-up (6 mo) and Hypertension (c/o of uncontrolled BP. ) . HPI: The patient is a very pleasant 84-year-old female with known coronary artery disease. In August 2018,she presented from outside hospital for inferior STEMI. She was found to have acute thrombotic occlusion of the distal right coronary artery. She underwent thrombectomy with PCI. She received drug-eluting stent to the distal RCA and PDA. Her EF was moderately impaired at the time. Additional history includes Kelly's esophagus, benign carcinoid tumor of the duodenum, squamous cell skin cancer, mild chronic kidney disease, osteoporosis, macular degeneration, hypertension, GERD, and fibromyalgia. She also has a history of trigeminal neuralgia. Ms. Carroll denies any anginal type chest discomfort. Her breathing is baseline. She was exercisingregularly but stopped secondary to the pandemic. She denies any orthopnea, paroxysmal nocturnal dyspnea, syncope, or near syncope. Her blood pressures have been running mildly high at home. Assessment & Plan: Hyperlipidemia She is on high intensity statin therapy. Her lipids are followed through primary care. Her last lipid profile was excellent. Hypertension Her blood pressure has been running high at home. I have added losartan 25 mg daily to her medical regimen. CAD (coronary artery disease) She denies any anginal type chest discomfort at this time. He remains on dual antiplatelet therapy.I have encouraged her to redouble her efforts at exercise. The patient is stable from my perspective. I would continue current medical therapy. I have added losartan to her medical regimen. Follow Up Ordered: Return in about 6 months (around 07/16/2020). 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 prior biopsies no dysplasia last biopsies 08/2014 Benign carcinoid tumor of the duodenum 2014 Cancer (HCC) skin cancer-squamous cells removed Chronic kidney disease (CKD), stage III (moderate) 09/12/2016 EGFR 43 Fibromyalgia Floating kidney GERD (gastroesophageal reflux disease) 2010 Hypertension 2000 Macular degeneration 2017 Myocardial infarction (HCC) 08/2018 STEMI Osteoporosis 2010 Trigeminal neuralgia of left side of face 2005 Vertigo Vitamin D deficiency 2016 Past Surgical History: Procedure Laterality Date BACK SURGERY 2013 fusion and rods placed in lower back. Rick thompson. Dr Hinds BLADDER REPAIR 1989 CATARACT EXT/ECCE Bilateral 2011 Dr [place] CHOLECYSTECTOMY CYST REMOVAL Right 1999 cyst removal from rt breast-benign DILATION AND CURETTAGE (D AND C) 1970 x 2 EGD 01/01/2015 Dr. ZavalaUeqkjp-Kcptaofgb-Tevowla's esophagus EGD 08/2014 Dr. Vinicius Pruett-Barrett's esophagitis biopsies negative for dysplasia. ESOPHAGOGASTRODUODENOSCOPY 01/04/2018 Dr. Zavala -biopsies performed-Kelly's esophagitis-carcinoid tumor posterior wall duodenum FRACTURE SURGERY Right Plates and screws in rt arm after fracture. dr Dolan LEFT HEART CATH N/A 08/23/2018 Procedure: Left Heart Cath; Surgeon: Glen Fair MD; Location: [facility]USTOD[facility]; Service: Cardiovascular HYSTERECTOMY 1974 KIDNEY SURGERY 1969 had exploratory surgery d/t floating kidney Dx KNEE SURGERY Left 1997 left knee arthoscopy LUMPECTOMY Left 1989 benign SQUAMOUS CELL CARCINOMA EXCISION x4 TOTAL KNEE ARTHROPLASTY Left 2012 dr dolan TUMOR REMOVAL 2011 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 Family History Problem Relation Age of Onset Diabetes Mother Heart disease Mother Heart disease Father Stroke Father Diabetes Sister Dementia Sister Heart disease Brother Diabetes Brother Diabetes Maternal Uncle Bipolar disorder Daughter Diabetes Son Cancer Neg Hx Aneurysm Neg Hx Seizures Neg Hx Social History Tobacco Use Smoking status: Former Smoker Packs/day: 0.00 Types: Cigarettes Quit date: 04/03/1976 Years since quittin.8 Smokeless tobacco: Never Used Substance Use Topics Alcohol use: No Drug use: No Current Outpatient Medications Medication Sig Dispense Refill aspirin 81 MG EC tablet Take 81 mg by mouth daily . atorvastatin (LIPITOR) 80 MG tablet Take 1 (one) tablet (80 mg total) by mouth nightly . 90 tablet 3 carBAMazepine (TEGretol XR) 100 MG 12 hr tablet Take 1 (one) tablet (100 mg total) by mouth 2 (two)times a day May increase with 200 mg twice a day after a week if tolerated. . 60 tablet 11 cholestyramine (QUESTRAN) 4 gram powder Take 4 g by mouth daily . fluticasone propionate (FLOVENT HFA) 110 mcg/actuation inhaler Inhale 2 (two) puffs 2 (two) times aday Rinse mouth after each use . 3 Inhaler 3 loratadine (CLARITIN) 10 mg tablet Take 10 mg by mouth daily . metoprolol tartrate (LOPRESSOR) 25 MG tablet Take 1 (one) tablet (25 mg total) by mouth 2 (two) times a day . 180 tablet 3 MULTIVIT-MIN/IRON/FOLIC/LUTEIN (CENTRUM SILVER WOMEN ORAL) Take 1 tablet by mouth daily. nitroGLYCERIN (NITROSTAT) 0.[address] 1 (one) tablet (0.4 mg total) under the tongue every 5 (five) minutes as needed for chest pain , if no relief after 3 doses call 911 . 25 tablet 5 omeprazole (PRILOSEC) 40 MG capsule Take 1 (one) capsule (40 mg total) by mouth daily . 90 capsule 3 oxybutynin (DITROPAN-XL) 5 MG 24 hr tablet Take 1 (one) tablet (5 mg total) by mouth daily . 30 tablet 11 ticagrelor (BriLINTA) 90 mg Tab tablet Take 1 (one) tablet (90 mg total) by mouth 2 (two) times a day . 180 tablet 3 traMADoL (ULTRAM) 50 mg tablet Take 1 (one) tablet (50 mg total) by mouth 2 (two) times a day as needed for pain (Days supply per fill: 7) . 14 tablet 0 losartan (Cozaar) 25 MG tablet Take 1 (one) tablet (25 mg total) by mouth daily . 90 tablet 3 No current facility-administered medications for this visit. Allergies Allergen Reactions Aspirin GI Intolerance Indigestion Codeine Unknown Latex, Natural Rubber Unknown [id number] Hydrocortisone Rash Review of Systems Constitution: Negative for diaphoresis, malaise/fatigue, weight gain and weight loss. HENT: Negative for hearing loss, nosebleeds and tinnitus. Eyes: Negative for blurred vision and visual disturbance. Cardiovascular: Negative for chest pain, claudication, cyanosis, dyspnea on exertion, irregular heartbeat, leg swelling, near-syncope, orthopnea, palpitations, paroxysmal nocturnal dyspnea and syncope. Respiratory: Negative for hemoptysis, shortness of breath and snoring. Endocrine: Negative for cold intolerance and heat intolerance. Hematologic/Lymphatic: Does not bruise/bleed easily. Skin: Negative for flushing, poor wound healing and rash. Musculoskeletal: Positive for arthritis and back pain. Negative for muscle weakness and myalgias. Gastrointestinal: Negative for abdominal pain, change in bowel habit, melena, nausea and vomiting. Genitourinary: Negative for decreased libido and hematuria. Neurological: Negative for loss of balance and numbness. Ischial pain secondary to trigeminal neuralgia. Psychiatric/Behavioral: Negative for memory loss. The patient is not nervous/anxious. Overview of Problems Addressed: Problem Cad (Coronary Artery Disease) At that time he found acute thrombotic occlusion of the distal RCA and he placed a drug-eluting stent into the RCA and to the post AV segment. LAD had 25 to 50%. He used a 2.5 x 38 mm Synergy and a 2.75 x 20. Ejection fraction was 42% Hypertension Hyperlipidemia Objective: Physical Exam Constitutional: She is oriented to person, place, and time. She appears well- developed and well-nourished. HENT: Head: Normocephalic. Eyes: Pupils are equal, round, and reactive to light. Conjunctivae and EOM are normal. No scleral icterus. Neck: Normal range of motion. Neck supple. No JVD present. No tracheal deviation present. No thyromegaly present. Cardiovascular: Normal rate, regular rhythm, S1 normal, S2 normal and intact distal pulses. Exam reveals no friction rub. Murmur heard. She has a soft systolic ejection murmur heard best at the upper right left sternal border. Pulmonary/Chest: Breath sounds normal. No respiratory distress. She has no wheezes. She has no rales. Abdominal: Soft. Bowel sounds are normal. She exhibits no distension and no mass. There is no hepatosplenomegaly. There is no abdominal tenderness. Musculoskeletal: Normal range of motion. General: No edema. Comments: Bilateral ankle edema, left greater than right. Superficial varicosities are noted. Lymphadenopathy: She has no cervical adenopathy. Neurological: She is alert and oriented to person, place, and time. Skin: Skin is warm and dry. Psychiatric: She has a normal mood and affect. Her behavior is normal. Vitals: Vitals: 01/17/20 1010 BP: 142/80 BP Location: Right arm Patient Position: Sitting Pulse: 71 SpO2: 95% Weight: 64.6 kg (142 lb 8 oz) Height: 5' 4 Orders Placed This Encounter cholestyramine (QUESTRAN) 4 gram powder losartan (Cozaar) 25 MG tablet Thank you for allowing me to assist you in the cardiovascular care of this patient. Please don't hesitate to contact me if you have any questions regarding these thoughts. Tae Robertson MD documented in this encounter* Nena Dickerson MD - 01/25/2020 10:34 AM EST [facility] [address] ([address]) [facility] [address] [facility] [id number] Cat Carroll is a 84 y.o. female being seen today, 01/25/20, Chief Complaint Patient presents with Left Hip - Pain [chief complaint] left-sided lower back buttock posterior anterior thigh pain HPI Dictation: Ports symptoms for last for 5 months she indicates she had to prescriptions for prednisone the first helped the second did not she is at chiropractic without improvement she has a previous L5-S1 fusion done in 2014 with recent x-rays showing a dextroscoliosis of multilevel degenerative disc disease and postoperative changes L5-S1 with pedicle screws decays all activities seem to beequally aggravating unable to take NSAIDs heart stent placement approximately year and a half ago [hpi] Physical Exam Dictation: [PE] increased pain lumbar flexion paraspinal spasm no true radicular pain Assessment and Plan Dictation: [AP] plan lumbar MRI recommended recommendations to follow I have reviewed all relevant histories, medications, allergies, and problem list items with Cat Carroll during this visit. Review of Systems Constitutional: Negative for chills and fever. HENT: Negative for congestion. Respiratory: Negative for shortness of breath. Cardiovascular: Negative for chest pain. Gastrointestinal: Negative for diarrhea, nausea and vomiting. Neurological: Negative for headaches. Psychiatric/Behavioral: Negative for behavioral problems. BP (!) 177/89 (BP Location: Left arm, Patient Position: Sitting) Pulse 77 Ht 5' 4 Wt 64.4 kg(142 lb) BMI 24.37 kg/m Imaging: No results found. 1. Chronic left-sided low back pain without sciatica MR Lumbar Spine Without Contrast 2. Chronic left SI joint pain Ambulatory referral to Orthopedics 3. Sciatica, left side Ambulatory referral to Orthopedics Return for post mri. Nena Dickerson MD documented in this encounter* SpringGisell CNP - 03/15/2020 2:25 PM EST Subjective Patient ID: Cat Carroll is a 84 y.o. female. Patient is here today for concerns with worsening back pain and depression. Back pain: Patient has been having issues with left SI joint pain that radiates down her buttocks and the front of her left leg, the pain stops at her knee. The pain has been been present 6 months orlonger and has not improved. Lumbar xray was done by Dr. Peña in September, scanned into chart. In Septemberalejandroe had 2 rounds of oral steroids that helped for a short amount of time. Pain is present all day/ev leann day and is causing issues with ambulation. Denies falls. Denies numbness or tingling. She states she has required steroid injections in her spine in the past for pain relief. She is taking Tylenol for pain but does not feel like it is helping at all with her pain. She is unable to take NSAIDS, on blood thinner. She states she has also tried Lidocaine patches, CBD oils, Biofreeze, heat and icewith no relief. She had apt with Dr. Hannah and he prescribed physical therapy and may be doing epidural injections. Patient states the continued pain is also causing issues with depression. She statesthat her mood has been down and she feels she needs medication for her depression. The following were reviewed and updated as appropriate for today's visit: allergies, current medications, past family history, past medical history, past social history, past surgical history and problem list. Patient's Medications New Prescriptions DULOXETINE (CYMBALTA) 30 MG CAPSULE Take 1 (one) capsule (30 mg total) by mouth daily . TRAMADOL (ULTRAM) 50 MG TABLET Take 1 (one) tablet (50 mg total) by mouth every 8 (eight) hours as needed for pain (Days supply per fill: 30) . Previous Medications ASPIRIN 81 MG EC TABLET Take 81 mg by mouth daily . ATORVASTATIN (LIPITOR) 80 MG TABLET Take 1 (one) tablet (80 mg total) by mouth nightly . CARBAMAZEPINE (TEGRETOL XR) 100 MG 12 HR TABLET Take 1 (one) tablet (100 mg total) by mouth 2 (two)times a day May increase with 200 mg twice a day after a week if tolerated. . CARBAMAZEPINE (TEGRETOL) 200 MG TABLET Take 1 (one) tablet (200 mg total) by mouth 3 (three) times a day . CHOLESTYRAMINE (QUESTRAN) 4 GRAM POWDER Take 1 (one) Scoopful (4 g total) by mouth daily . FLUTICASONE PROPIONATE (FLOVENT HFA) 110 MCG/ACTUATION INHALER Inhale 2 (two) puffs 2 (two) times aday Rinse mouth after each use . LORATADINE (CLARITIN) 10 MG TABLET Take 10 mg by mouth daily . LOSARTAN (COZAAR) 25 MG TABLET Take 1 (one) tablet (25 mg total) by mouth daily . METOPROLOL TARTRATE (LOPRESSOR) 25 MG TABLET Take 1 (one) tablet (25 mg total) by mouth 2 (two) times a day . MULTIVIT-MIN/IRON/FOLIC/LUTEIN (CENTRUM SILVER WOMEN ORAL) Take 1 tablet by mouth daily. NITROGLYCERIN (NITROSTAT) 0.[address] 1 (one) tablet (0.4 mg total) under the tongue every 5 (five) minutes as needed for chest pain , if no relief after 3 doses call 911 . OMEPRAZOLE (PRILOSEC) 40 MG CAPSULE Take 1 (one) capsule (40 mg total) by mouth daily . OXYBUTYNIN (DITROPAN-XL) 5 MG 24 HR TABLET Take 1 (one) tablet (5 mg total) by mouth daily . TICAGRELOR (BRILINTA) 90 MG TAB TABLET Take 1 (one) tablet (90 mg total) by mouth 2 (two) times a day . Modified Medications No medications on file Discontinued Medications No medications on file Review of Systems Review of Systems Constitutional: Negative for activity change and fatigue. HENT: Negative for hearing loss. Eyes: Negative for visual disturbance. Respiratory: Negative for cough, chest tightness and shortness of breath. Cardiovascular: Negative for chest pain and palpitations. Genitourinary: Urinary incontinence Musculoskeletal: Positive for arthralgias and back pain. Negative for gait problem. Skin: Negative. Neurological: Negative for dizziness, weakness, light-headedness and headaches. Psychiatric/Behavioral: Positive for dysphoric mood. Negative for agitation. Vitals: 03/15/20 1407 03/15/20 1414 BP: (!) 165/83 (!) 155/82 BP Location: Left arm Left arm Patient Position: Sitting Sitting BP Cuff Size: Adult Adult Pulse: 76 74 Resp: 16 Temp: 98.7 F (37.1 C) TempSrc: Temporal SpO2: 96% Weight: 64.4 kg (142 lb) Height: 5' 4 Body mass index is 24.37 kg/m . Physical Exam Physical Exam Constitutional: She is oriented to person, place, and time. She appears well- developed and well-nourished. HENT: Right Ear: External ear normal. Left Ear: External ear normal. Nose: Nose normal. Mouth/Throat: Oropharynx is clear and moist and mucous membranes are normal. Eyes: Conjunctivae, EOM and lids are normal. Neck: Normal range of motion. Cardiovascular: Normal rate, regular rhythm and normal heart sounds. No murmur heard. Pulmonary/Chest: Effort normal and breath sounds normal. Musculoskeletal: Comments: Stiff gait Neurological: She is alert and oriented to person, place, and time. GCS eye subscore is 4. GCS verbal subscore is 5. GCS motor subscore is 6. Skin: Skin is warm and dry. Psychiatric: She has a normal mood and affect. Her speech is normal and behavior is normal. OARRS/NARxCHECK Report Received and Assessed: 03/15/2020 Date controlled substance agreement signed: 03/15/2020 Date of last drug screen: No data found Functional Assessment: No data found Assessment/Plan Problem List Items Addressed This Visit Nervous and Auditory 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-sided sciatica Relevant Medications traMADoL (ULTRAM) 50 mg tablet DULoxetine (CYMBALTA) 30 MG capsule Musculoskeletal and Integument Degenerative disc disease, lumbar Relevant Medications traMADoL (ULTRAM) 50 mg tablet Other Chronic left SI joint pain - Primary Depression I am going to start you on Cymbalta 30 mg a day to help with depression and pain. Let me know if you have any problems with this medication. Relevant Medications DULoxetine (CYMBALTA) 30 MG capsule For any new medications prescribed today, patient was educated about indications for the medication, how to take the medication and potential side effects of the medications. [facility] Depression Screening 07/01/2016 03/26/2017 03/23/2018 08/23/2018 12/22/2018 01/12/2020 03/15/2020 Little interest or pleasure in doing things 0 0 0 0 0 0 3 Feeling down, depressed, or hopeless 1 0 0 0 0 1 2 PHQ-2 Total Score 1 0 0 0 0 1 5 Trouble falling or staying asleep, or sleeping too much 0 - - - 0 1 0 Feeling tired or having little energy 0 - - - 0 1 1 Poor appetite or overeating 0 - - - 1 0 1 Feeling bad about yourself - or that you are a failure or have let yourself or your family down 0 -- - 0 0 1 Trouble concentrating on things, such as reading the newspaper or watching television 1 - - - 0 0 0 Moving or speaking so slowly that other people could have noticed. Or the opposite - being so fidgety or restless that you have been moving around a lot more than usual 0 - - - 0 0 0 Thoughts that you would be better off , or of hurting yourself in some way 0 - - - 0 0 1 PHQ-9 Total Score 1 - - - 1 3 9 RETIRED - PHQ-9 Total Score 2 - - - - - - If you checked off any problems, how difficult have these problems made it for you to do your work,take care of things at home, or get along with other people? Not difficult at all - - - Not difficult at all Not difficult at all Very difficult documented in this encounter* Gisell Desai CNP - 03/27/2020 8:45 AM EST Telephone Visit Via Phone Call [facility] [address] [place] [address] [facility] [address] [place] [phone] Telephone Visit [facility] 03/27/2020 Gisell Desai CNP Provider Location: [address] [place] [address] Patient Location [employer] Operator: None Patient Location: Patient's Home Patient: Cat Carroll Date of : 1935 (84 y.o. female) PCP: Gisell Desai CNP I discussed risks, benefits and alternatives of a telephone visit telemedicine consultation with the patient (and any accompanying persons) including the risks that the patient's personal health details and medical records will be discussed over real-time, synchronous, interactive audio technology,the visit will not be recorded without the express consent of both the provider and the patient, and that there are inherent diagnostic limitations compared to [id number] evaluations. We elected toproceed with the telephone visit telemedicine consultation. Patient states with the addition of Tramadol 50 mg TID and Cymbalta 30 mg daily she has noticed no improvement in pain on a daily basis. She states she is taking the Tramadol every 8 hours and takingTylenol in between. She had no side effects or issues with starting the Cymbalta but does not feel like it has helped at all with her mood her or her pain level. She can not take NSAIDS and she does not tolerate Gabapentin. She is currently in physical therapy which she feels is helping slightly and is followed by ortho Dr. Hannah. Encouraged patient to call his office to see if he is willing to doinjections sooner. Also talked about palliative care if all of these options are not helping with her pain. The following portions of the patient's history were reviewed and updated as appropriate: allergies, current medications, past family history, past medical history, past social history, past surgicalhistory and problem list. Review of Systems Constitutional: Negative for activity change and fatigue. HENT: Negative for hearing loss. Eyes: Negative for visual disturbance. Respiratory: Negative for cough, chest tightness and shortness of breath. Cardiovascular: Negative for chest pain and palpitations. Genitourinary: Urinary incontinence Musculoskeletal: Positive for arthralgias and back pain. Negative for gait problem. Skin: Negative. Neurological: Negative for dizziness, weakness, light-headedness and headaches. Psychiatric/Behavioral: Positive for dysphoric mood. Negative for agitation. Patient's Medications New Prescriptions No medications on file Previous Medications ASPIRIN 81 MG EC TABLET Take 81 mg by mouth daily . ATORVASTATIN (LIPITOR) 80 MG TABLET Take 1 (one) tablet (80 mg total) by mouth nightly . CARBAMAZEPINE (TEGRETOL XR) 100 MG 12 HR TABLET Take 1 (one) tablet (100 mg total) by mouth 2 (two)times a day May increase with 200 mg twice a day after a week if tolerated. . CHOLESTYRAMINE (QUESTRAN) 4 GRAM POWDER Take 1 (one) Scoopful (4 g total) by mouth daily . FLUTICASONE PROPIONATE (FLOVENT HFA) 110 MCG/ACTUATION INHALER Inhale 2 (two) puffs 2 (two) times aday Rinse mouth after each use . LORATADINE (CLARITIN) 10 MG TABLET Take 10 mg by mouth daily . LOSARTAN (COZAAR) 25 MG TABLET Take 1 (one) tablet (25 mg total) by mouth daily . METOPROLOL TARTRATE (LOPRESSOR) 25 MG TABLET Take 1 (one) tablet (25 mg total) by mouth 2 (two) times a day . MULTIVIT-MIN/IRON/FOLIC/LUTEIN (CENTRUM SILVER WOMEN ORAL) Take 1 tablet by mouth daily. NITROGLYCERIN (NITROSTAT) 0.[address] 1 (one) tablet (0.4 mg total) under the tongue every 5 (five) minutes as needed for chest pain , if no relief after 3 doses call 911 . OMEPRAZOLE (PRILOSEC) 40 MG CAPSULE Take 1 (one) capsule (40 mg total) by mouth daily . OXYBUTYNIN (DITROPAN-XL) 5 MG 24 HR TABLET Take 1 (one) tablet (5 mg total) by mouth daily . TICAGRELOR (BRILINTA) 90 MG TAB TABLET Take 1 (one) tablet (90 mg total) by mouth 2 (two) times a day . TRAMADOL (ULTRAM) 50 MG TABLET Take 1 (one) tablet (50 mg total) by mouth every 8 (eight) hours as needed for pain (Days supply per fill: 30) . Modified Medications Modified Medication Previous Medication DULOXETINE (CYMBALTA) 60 MG CAPSULE DULoxetine (CYMBALTA) 30 MG capsule Take 1 (one) capsule (60 mg total) by mouth daily . Take 1 (one) capsule (30 mg total) by mouth daily . Discontinued Medications ATORVASTATIN (LIPITOR) 40 MG TABLET Take by mouth . CARBAMAZEPINE (TEGRETOL) 200 MG TABLET Take 1 (one) tablet (200 mg total) by mouth 3 (three) times a day . GABAPENTIN (NEURONTIN) 300 MG CAPSULE Take by mouth . METOPROLOL TARTRATE (LOPRESSOR) 100 MG TABLET Take by mouth . Assessment/Plan: Problem List Items Addressed This Visit Nervous and Auditory 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-sided sciatica Call and talk to Dr. Hannah and see if he is willing to do an injection sooner. Relevant Medications DULoxetine (CYMBALTA) 60 MG capsule Other Depression Will increase Cymbalta to 60 mg daily, if you are not having side effects or issues with this medication but it is not enough please let me know in about 2 weeks and I will increase the medication again. Relevant Medications DULoxetine (CYMBALTA) 60 MG capsule I have spent 12 minutes with the patient reviewing the HPI and Plan of Care. Depression Screening 07/01/2016 03/26/2017 03/23/2018 08/23/2018 12/22/2018 01/12/2020 03/15/2020 Little interest or pleasure in doing things 0 0 0 0 0 0 3 Feeling down, depressed, or hopeless 1 0 0 0 0 1 2 PHQ-2 Total Score 1 0 0 0 0 1 5 Trouble falling or staying asleep, or sleeping too much 0 - - - 0 1 0 Feeling tired or having little energy 0 - - - 0 1 1 Poor appetite or overeating 0 - - - 1 0 1 Feeling bad about yourself - or that you are a failure or have let yourself or your family down 0 -- - 0 0 1 Trouble concentrating on things, such as reading the newspaper or watching television 1 - - - 0 0 0 Moving or speaking so slowly that other people could have noticed. Or the opposite - being so fidgety or restless that you have been moving around a lot more than usual 0 - - - 0 0 0 Thoughts that you would be better off , or of hurting yourself in some way 0 - - - 0 0 1 PHQ-9 Total Score 1 - - - 1 3 9 RETIRED - PHQ-9 Total Score 2 - - - - - - If you checked off any problems, how difficult have these problems made it for you to do your work,take care of things at home, or get along with other people? Not difficult at all - - - Not difficult at all Not difficult at all Very difficult documented in this encounter* Gisell Desai CNP - 03/27/2020 8:45 AM EST Telephone Visit Via Phone Call [facility] [address] [place] [phone] Telephone Visit [facility] 03/27/2020 Gisell Desai CNP Provider Location: [address] [place] [address] Patient Location [employer] Operator: None Patient Location: Patient's Home Patient: Cat Carroll Date of : 1935 (84 y.o. female) PCP: Gisell Desai CNP I discussed risks, benefits and alternatives of a telephone visit telemedicine consultation with the patient (and any accompanying persons) including the risks that the patient's personal health details and medical records will be discussed over real-time, synchronous, interactive audio technology,the visit will not be recorded without the express consent of both the provider and the patient, and that there are inherent diagnostic limitations compared to [id number] evaluations. We elected toproceed with the telephone visit telemedicine consultation. Patient states with the addition of Tramadol 50 mg TID and Cymbalta 30 mg daily she has noticed no improvement in pain on a daily basis. She states she is taking the Tramadol every 8 hours and takingTylenol in between. She had no side effects or issues with starting the Cymbalta but does not feel like it has helped at all with her mood her or her pain level. She can not take NSAIDS and she does not tolerate Gabapentin. She is currently in physical therapy which she feels is helping slightly and is followed by ortho Dr. Hannah. Encouraged patient to call his office to see if he is willing to doinjections sooner. Also talked about palliative care if all of these options are not helping with her pain. The following portions of the patient's history were reviewed and updated as appropriate: allergies, current medications, past family history, past medical history, past social history, past surgicalhistory and problem list. Review of Systems Constitutional: Negative for activity change and fatigue. HENT: Negative for hearing loss. Eyes: Negative for visual disturbance. Respiratory: Negative for cough, chest tightness and shortness of breath. Cardiovascular: Negative for chest pain and palpitations. Genitourinary: Urinary incontinence Musculoskeletal: Positive for arthralgias and back pain. Negative for gait problem. Skin: Negative. Neurological: Negative for dizziness, weakness, light-headedness and headaches. Psychiatric/Behavioral: Positive for dysphoric mood. Negative for agitation. Patient's Medications New Prescriptions No medications on file Previous Medications ASPIRIN 81 MG EC TABLET Take 81 mg by mouth daily . ATORVASTATIN (LIPITOR) 80 MG TABLET Take 1 (one) tablet (80 mg total) by mouth nightly . CARBAMAZEPINE (TEGRETOL XR) 100 MG 12 HR TABLET Take 1 (one) tablet (100 mg total) by mouth 2 (two)times a day May increase with 200 mg twice a day after a week if tolerated. . CHOLESTYRAMINE (QUESTRAN) 4 GRAM POWDER Take 1 (one) Scoopful (4 g total) by mouth daily . FLUTICASONE PROPIONATE (FLOVENT HFA) 110 MCG/ACTUATION INHALER Inhale 2 (two) puffs 2 (two) times aday Rinse mouth after each use . LORATADINE (CLARITIN) 10 MG TABLET Take 10 mg by mouth daily . LOSARTAN (COZAAR) 25 MG TABLET Take 1 (one) tablet (25 mg total) by mouth daily . METOPROLOL TARTRATE (LOPRESSOR) 25 MG TABLET Take 1 (one) tablet (25 mg total) by mouth 2 (two) times a day . MULTIVIT-MIN/IRON/FOLIC/LUTEIN (CENTRUM SILVER WOMEN ORAL) Take 1 tablet by mouth daily. NITROGLYCERIN (NITROSTAT) 0.[address] 1 (one) tablet (0.4 mg total) under the tongue every 5 (five) minutes as needed for chest pain , if no relief after 3 doses call 911 . OMEPRAZOLE (PRILOSEC) 40 MG CAPSULE Take 1 (one) capsule (40 mg total) by mouth daily . OXYBUTYNIN (DITROPAN-XL) 5 MG 24 HR TABLET Take 1 (one) tablet (5 mg total) by mouth daily . TICAGRELOR (BRILINTA) 90 MG TAB TABLET Take 1 (one) tablet (90 mg total) by mouth 2 (two) times a day . TRAMADOL (ULTRAM) 50 MG TABLET Take 1 (one) tablet (50 mg total) by mouth every 8 (eight) hours as needed for pain (Days supply per fill: 30) . Modified Medications Modified Medication Previous Medication DULOXETINE (CYMBALTA) 60 MG CAPSULE DULoxetine (CYMBALTA) 30 MG capsule Take 1 (one) capsule (60 mg total) by mouth daily . Take 1 (one) capsule (30 mg total) by mouth daily . Discontinued Medications ATORVASTATIN (LIPITOR) 40 MG TABLET Take by mouth . CARBAMAZEPINE (TEGRETOL) 200 MG TABLET Take 1 (one) tablet (200 mg total) by mouth 3 (three) times a day . GABAPENTIN (NEURONTIN) 300 MG CAPSULE Take by mouth . METOPROLOL TARTRATE (LOPRESSOR) 100 MG TABLET Take by mouth . Assessment/Plan: Problem List Items Addressed This Visit Nervous and Auditory 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-sided sciatica Call and talk to Dr. Hannah and see if he is willing to do an injection sooner. Relevant Medications DULoxetine (CYMBALTA) 60 MG capsule Other Depression Will increase Cymbalta to 60 mg daily, if you are not having side effects or issues with this medication but it is not enough please let me know in about 2 weeks and I will increase the medication again. Relevant Medications DULoxetine (CYMBALTA) 60 MG capsule I have spent 12 minutes with the patient reviewing the HPI and Plan of Care. Depression Screening 07/01/2016 03/26/2017 03/23/2018 08/23/2018 12/22/2018 01/12/2020 03/15/2020 Little interest or pleasure in doing things 0 0 0 0 0 0 3 Feeling down, depressed, or hopeless 1 0 0 0 0 1 2 PHQ-2 Total Score 1 0 0 0 0 1 5 Trouble falling or staying asleep, or sleeping too much 0 - - - 0 1 0 Feeling tired or having little energy 0 - - - 0 1 1 Poor appetite or overeating 0 - - - 1 0 1 Feeling bad about yourself - or that you are a failure or have let yourself or your family down 0 -- - 0 0 1 Trouble concentrating on things, such as reading the newspaper or watching television 1 - - - 0 0 0 Moving or speaking so slowly that other people could have noticed. Or the opposite - being so fidgety or restless that you have been moving around a lot more than usual 0 - - - 0 0 0 Thoughts that you would be better off , or of hurting yourself in some way 0 - - - 0 0 1 PHQ-9 Total Score 1 - - - 1 3 9 RETIRED - PHQ-9 Total Score 2 - - - - - - If you checked off any problems, how difficult have these problems made it for you to do your work,take care of things at home, or get along with other people? Not difficult at all - - - Not difficult at all Not difficult at all Very difficult documented in this encounter* Lara Hector RN - 04/10/2020 11:40 AM EST Outreach to [facility]. SS visit scheduled for Rosy scheduled this week, [facility] off report / needs / ideas. Staying Safe Boxes. For referral: Alanna Mendoza--Hand Marker, [address] [address] Work # [phone]--Work Cell # Update: 04/10/20 @ 1439 Rosy Triana returned call LM, message returned LM. documented in this encounter* Lara Hector RN - 04/10/2020 2:43 PM EST Hand off reprot to [facility], [facility]. Pt. Lives alone in [place]. Previously Inpt. @ [facility] fall fx. femur, unsure of SNF rehab. Receiving SN/PT/OT, has walker. Daughter staying with pt. at this time, Son lives in [place] who is POA. Daughter staying with pt. until she recovers daughter wishing to return to her home. [facility]ley will evaluate for Rx.cost needs, in home needs, transportation, further planning at 04/11/20 homevisit. Possible PASSPORT assistance and will update this CM after visit. Will reach out to [facility] Safe Boxes: Alanna Mendoza--Hand Marker #[phone] * Lara Hector RN - 04/10/2020 11:40 AM EST Outreach to [facility]. SS visit scheduled for Rosy scheduled this week, Ss will contactthis CM prior to visit for hand off report / needs / ideas. Staying Safe Boxes. For referral: Alanna Mendoza--Hand Marker, [address] [address] Work # [phone]--Work Cell # Update: 04/10/20 @ 1439 [place] returned call LM, message returned LM. documented in this encounter* Gisell Desai CNP - 04/10/2020 3:23 PM EST Thank you so much for reaching out to patient. * Lara Hector RN - 04/10/2020 2:43 PM EST Hand off reprot to [facility]. Pt. Lives alone in [place]. Previously Inpt. @ [facility] fall fx. femur, unsure of SNF rehab. Receiving SN/PT/OT, has walker. Daughter staying with pt. at this time, Son lives in [place] who is POA. Daughter staying with pt. until she recovers daughter wishing to return to her home. Charley will evaluate for Rx.cost needs, in home needs, transportation, further planning at 04/11/20 homevisit. Possible PASSPORT assistance and will update this CM after visit. Will reach out to Staying Safe Boxes: Alanna Mendoza--Hand Marker #[phone] * Lara Hector RN - 04/10/2020 11:40 AM EST Outreach to [facility]. SS visit scheduled for Rosy scheduled this week, Ss will contactthis CM prior to visit for hand off report / needs / ideas. Staying Safe Boxes. For referral: Alanna Mendoza--Hand Marker, [place] [address] Work # [phone]--Work Cell # Update: 04/10/20 @ 1439 Rosy Triana returned call LM, message returned LM. documented in this encounter* Tae Robertson MD - 10/12/2018 9:51 AM EDT OFFICE CONSULTATION NOTE [facility] [address] [facility] [address] [facility] [id number] Physicians: Americo Peña MD Subjective: Cat Carroll is a 83 y.o. female seen in the office today for Follow-up (s/p PCI. Medications reviewed. no refills at this time ) and Leg Pain (c/o leg cramping while participating in cardiac rehab.) . HPI: The patient is a very pleasant 83-year-old female with a history of Kelly's esophagus, benign carcinoid tumor of the duodenum, squamous cell skin cancer, mild chronic kidney disease, osteoporosis, macular degeneration, hypertension, GERD, fibromyalgia, and recent presentation with ST segment elevation myocardial infarction. The patient presented to [facility] with chest pain and EKG changes consistent with STEMI. She was transferred to [facility] and was taken urgently for cardiac catheterization on 08/23/2018. She was found to have acute thrombotic occlusion of the distal right coronary artery. She had thrombectomy followed by PCI with drug-eluting stent to the distal RCA and PDA. She received a 2.5x 38 mm and a 2.75 x 20 mm Synergy stent. Her EF was moderately impaired at the time. The patient did well post procedure. She is currently participating in phase 2 cardiac rehab at [facility]. She has no chest pain. She denies any orthopnea, paroxysmal nocturnal dyspnea, syncope, or near syncope. She does note muscle cramps at night following rehab. Assessment & Plan: CAD (coronary artery disease) The patient denies any anginal type chest discomfort. She is doing well status post drug-eluting stent placement x2 to the RCA and PDA. She is participating in phase 2 cardiac rehab without difficulty. Continue dual antiplatelet therapy. Hypertension Her blood pressure is under excellent control on current medical therapy. Hyperlipidemia She remains on high intensity statin therapy. Her lipids are followed through primary care. Follow Up Ordered: Return in about 3 months (around 01/12/2019). 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 prior biopsies no dysplasia last biopsies 08/2014 Benign carcinoid tumor of the duodenum 2014 Cancer (HCC) skin cancer-squamous cells removed Chronic kidney disease (CKD), stage III (moderate) (HCC) 09/12/2016 EGFR 43 Fibromyalgia Floating kidney GERD (gastroesophageal reflux disease) 2010 Hypertension 2000 Macular degeneration 2017 Myocardial infarction (HCC) 08/2018 STEMI Osteoporosis 2010 Trigeminal neuralgia of left side of face 2005 Vertigo Vitamin D deficiency 2016 Past Surgical History: Procedure Laterality Date BACK SURGERY 2013 fusion and rods placed in lower back. Rick thompson. Dr Hinds BLADDER REPAIR 1989 CATARACT EXT/ECCE Bilateral 2011 Dr [place] CHOLECYSTECTOMY CYST REMOVAL Right 2000 cyst removal from rt breast-benign DILATION AND CURETTAGE (D AND C) 1970 x 2 EGD 01/01/2015 Dr. ZavalaUnbghm-Ebxlbpvbh-Dwhvqbf's esophagus EGD 08/2014 Dr. Vinicius RamachandranR-Syhjpdmxo-Ngwydtv's esophagitis biopsies negative for dysplasia. ESOPHAGOGASTRODUODENOSCOPY 01/04/2018 Dr. Zavala -biopsies performed-Kelly's esophagitis-carcinoid tumor posterior wall duodenum FRACTURE SURGERY Right Plates and screws in rt arm after fracture. dr Dolan [facility] LEFT HEART CATH N/A 08/23/2018 Procedure: Left Heart Cath; Surgeon: Glen Fair MD; Location: CUSTODIAN; Service: Cardiovascular HYSTERECTOMY 1975 KIDNEY SURGERY 1969 had exploratory surgery d/t floating kidney Dx KNEE SURGERY Left 1997 left knee arthoscopy LUMPECTOMY Left 1989 benign SQUAMOUS CELL CARCINOMA EXCISION x4 TOTAL KNEE ARTHROPLASTY Left 2012 dr dolan TUMOR REMOVAL 2012 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 Family History Problem Relation Age of Onset Diabetes Mother Heart disease Mother Heart disease Father Stroke Father Diabetes Sister Heart disease Brother Diabetes Brother Diabetes Maternal Uncle Bipolar disorder Daughter Diabetes Son Social History Tobacco Use Smoking status: Former Smoker Types: Cigarettes Last attempt to quit: 04/03/1976 Years since quittin.5 Smokeless tobacco: Never Used Substance Use Topics Alcohol use: No Drug use: No Current Outpatient Medications Medication Sig Dispense Refill aspirin 81 MG EC tablet Take 81 mg by mouth daily . atorvastatin (LIPITOR) 80 MG tablet Take 1 (one) tablet (80 mg total) by mouth nightly . 90 tablet 3 cholestyramine (QUESTRAN) 4 gram packet Take 1 (one) packet by mouth daily with breakfast Hour prior or hour post . 90 each 3 ergocalciferol (ERGOCALCIFEROL) 50,000 unit capsule Take 1 (one) capsule (50,000 Units total) by mouth every 14 (fourteen) days . 7 capsule 3 fluticasone propionate (FLOVENT HFA) 110 mcg/actuation inhaler Inhale 2 (two) puffs 2 (two) times aday Rinse mouth after each use . 3 Inhaler 3 levocetirizine (XYZAL) 5 MG tablet Take 5 mg by mouth every evening . metoprolol tartrate (LOPRESSOR) 25 MG tablet Take 1 (one) tablet (25 mg total) by mouth 2 (two) times a day . 180 tablet 3 MULTIVIT-MIN/IRON/FOLIC/LUTEIN (CENTRUM SILVER WOMEN ORAL) Take 1 tablet by mouth daily. nitroGLYCERIN (NITROSTAT) 0.[address] 1 (one) tablet (0.4 mg total) under the tongue every 5 (five) minutes as needed for chest pain , if no relief after 3 doses call 911 . 25 tablet 5 omeprazole (PRILOSEC) 40 MG capsule Take 1 (one) capsule (40 mg total) by mouth daily . 90 capsule 3 ticagrelor (BriLINTA) 90 mg Tab tablet Take 1 (one) tablet (90 mg total) by mouth 2 (two) times a day . 180 tablet 3 topiramate (TOPAMAX) 50 MG tablet Take 2 tablets in the morning , 1 In the evening . 270 tablet 3 No current facility-administered medications for this visit. Allergies Allergen Reactions Aspirin GI Intolerance Indigestion Codeine Unknown Latex, Natural Rubber Unknown Hgwibsgg-Nhfgkwyeulu-Dvpiagrcb Hydrocortisone Rash Review of Systems Constitution: Negative for diaphoresis, malaise/fatigue, weight gain and weight loss. HENT: Negative for hearing loss, nosebleeds and tinnitus. Eyes: Negative for blurred vision and visual disturbance. Cardiovascular: Positive for leg swelling. Negative for chest pain, claudication, cyanosis, dyspneaon exertion, irregular heartbeat, near-syncope, orthopnea, palpitations, paroxysmal nocturnal dyspnea and syncope. Respiratory: Negative for hemoptysis, shortness of breath and snoring. Endocrine: Negative for cold intolerance and heat intolerance. Hematologic/Lymphatic: Does not bruise/bleed easily. Skin: Negative for flushing, poor wound healing and rash. Musculoskeletal: Positive for muscle cramps. Negative for back pain, muscle weakness and myalgias. Gastrointestinal: Negative for abdominal pain, change in bowel habit, melena, nausea and vomiting. Genitourinary: Negative for decreased libido and hematuria. Neurological: Negative for loss of balance and numbness. Psychiatric/Behavioral: Negative for memory loss. The patient is not nervous/anxious. Overview of Problems Addressed: Problem Cad (Coronary Artery Disease) At that time he found acute thrombotic occlusion of the distal RCA and he placed a drug-eluting stent into the RCA and to the post AV segment. LAD had 25 to 50%. He used a 2.5 x 38 mm Synergy and a 2.75 x 20. Ejection fraction was 42% Hypertension Hyperlipidemia Objective: Physical Exam Constitutional: She is oriented to person, place, and time. She appears well- developed and well-nourished. HENT: Head: Normocephalic. Eyes: Pupils are equal, round, and reactive to light. Conjunctivae and EOM are normal. No scleral icterus. Neck: Normal range of motion. Neck supple. No JVD present. No tracheal deviation present. No thyromegaly present. Cardiovascular: Normal rate, regular rhythm, S1 normal, S2 normal, normal heart sounds and intact distal pulses. Exam reveals no friction rub. No murmur heard. Pulmonary/Chest: Breath sounds normal. No respiratory distress. She has no wheezes. She has no rales. Abdominal: Soft. Bowel sounds are normal. She exhibits no distension and no mass. There is no hepatosplenomegaly. There is no tenderness. Musculoskeletal: Normal range of motion. She exhibits edema. Her left leg is chronically swollen secondary to a prior injury. She is wearing support stockings. Lymphadenopathy: She has no cervical adenopathy. Neurological: She is alert and oriented to person, place, and time. Skin: Skin is warm and dry. Scattered ecchymoses. Psychiatric: She has a normal mood and affect. Her behavior is normal. Vitals: Vitals: 10/12/18 0928 BP: 116/69 BP Location: Left arm Patient Position: Sitting Pulse: 65 SpO2: 98% Weight: 64.2 kg (141 lb 9.6 oz) Height: 5' 4 Orders Placed This Encounter aspirin 81 MG EC tablet levocetirizine (XYZAL) 5 MG tablet Thank you for allowing me to assist you in the cardiovascular care of this patient. Please don't hesitate to contact me if you have any questions regarding these thoughts. 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 female) PCP: Gisell Desai CNP I discussed risks, benefits and alternatives of a telephone visit telemedicine consultation with the patient (and any accompanying persons) including the risks that the patient's personal health details and medical records will be discussed over real-time, synchronous, interactive audio technology,the visit will not be recorded without the express consent of both the provider and the patient, and that there are inherent diagnostic limitations compared to [id number] evaluations. We elected toproceed with the telephone visit telemedicine consultation. Visit today is for hospital follow-up. Patient was admitted to [facility] on 04/02/2020 after suffering a right hip fracture. Patient states she was walking into the house and tripped and fell when her foot caught the rubber on the bottom of the door. She states she was yessica she had just come into the house and had her cell phone in her coat pocket. Required short gamma nail repair of her right hip. Patient states she is now home with home health care, physical therapy, nurseonce a week, and health and social care teacher involvement all through [facility]. Patient states her daughter is alsostaying with her as long as needed and her son is coming to visit every Thursday to help with groceryshopping. Patient states she has all necessary equipment at home including a walker and bedside commode. Patient states she has appointment with orthopedic surgeon Dr. Cabrera in 6 weeks. She states she is controlling pain with prescribed Percocet and [id number]-okaruxs Tylenol. Patient denies any concerns or questions at today's visit. The following portions of the patient's history were reviewed and updated as appropriate: allergies, current medications, past family history, past medical history, past social history, past surgicalhistory, and problem list. Review of Systems Constitutional: Negative for activity change and fatigue. HENT: Negative for hearing loss. Eyes: Negative for visual disturbance. Respiratory: Negative for cough, chest tightness and shortness of breath. Cardiovascular: Negative for chest pain and palpitations. Genitourinary: Urinary incontinence Musculoskeletal: Positive for arthralgias, back pain, gait problem, joint swelling and myalgias. Skin: Negative. Neurological: Negative for dizziness, weakness, light-headedness and headaches. Psychiatric/Behavioral: Positive for dysphoric mood. Negative for agitation. Patient's Medications New Prescriptions No medications on file Previous Medications ASPIRIN 81 MG EC TABLET Take 81 mg by mouth daily . ATORVASTATIN (LIPITOR) 80 MG TABLET Take 1 (one) tablet (80 mg total) by mouth nightly . CARBAMAZEPINE (TEGRETOL XR) 100 MG 12 HR TABLET Take 1 (one) tablet (100 mg total) by mouth 2 (two)times a day May increase with 200 mg twice a day after a week if tolerated. . CARBAMAZEPINE (TEGRETOL) 200 MG TABLET Take 1.5 (one and a half) tablets (300 mg total) by mouth 3 (three) times a day . CHOLESTYRAMINE (QUESTRAN) 4 GRAM POWDER Take 1 (one) Scoopful (4 g total) by mouth daily . DULOXETINE (CYMBALTA) 60 MG CAPSULE Take 1 (one) capsule (60 mg total) by mouth daily . FLUTICASONE PROPIONATE (FLOVENT HFA) 110 MCG/ACTUATION INHALER Inhale 2 (two) puffs 2 (two) times aday Rinse mouth after each use . LORATADINE (CLARITIN) 10 MG TABLET Take 10 mg by mouth daily . LOSARTAN (COZAAR) 25 MG TABLET Take 1 (one) tablet (25 mg total) by mouth daily . METOPROLOL TARTRATE (LOPRESSOR) 25 MG TABLET Take 1 (one) tablet (25 mg total) by mouth 2 (two) times a day . MULTIVIT-MIN/IRON/FOLIC/LUTEIN (CENTRUM SILVER WOMEN ORAL) Take 1 tablet by mouth daily. NITROGLYCERIN (NITROSTAT) 0.[address] 1 (one) tablet (0.4 mg total) under the tongue every 5 (five) minutes as needed for chest pain , if no relief after 3 doses call 911 . OMEPRAZOLE (PRILOSEC) 40 MG CAPSULE Take 1 (one) capsule (40 mg total) by mouth daily . OXYBUTYNIN (DITROPAN-XL) 5 MG 24 HR TABLET Take 1 (one) tablet (5 mg total) by mouth daily . OXYCODONE-ACETAMINOPHEN (PERCOCET) 5-325 MG PER TABLET Take 1 tablet by mouth every 4 to 6 hours asneeded FOR PAIN . TICAGRELOR (BRILINTA) 90 MG TAB TABLET Take 1 (one) tablet (90 mg total) by mouth 2 (two) times a day . Modified Medications No medications on file Discontinued Medications No medications on file Assessment/Plan: Problem List Items Addressed This Visit Other Status post right hip replacement Let me know if there is anything I can do to help, keep follow-up with orthopedic surgeon I have spent 12 minutes with the patient reviewing the HPI and Plan of Care. documented in this encounter* Gisell Desai CNP - 01/16/2020 10:10 AM EST Subjective Patient ID: Cat Carroll is a 84 y.o. female. Patient is here today to re-establish care. She was previously a patient of this office and is returning for care. She followed Dr. Peña to [facility] which is closing and she would like to stay in this area. Will try to obtain records. Back pain: Patient has been having issues with left SI joint pain that radiates down her buttocks and the front of her left leg, the pain stops at her knee. The pain has been been present 6 months orlonger and has not improved. Lumbar xray was done by Dr. Peña in September, scanned into chart. In Septembershe had 2 rounds of oral steroids that helped for a short amount of time. Pain is present all day/ev leann day and is causing issues with ambulation. Denies falls. Denies numbness or tingling. She states she has required steroid injections in her spine in the past for pain relief. She is taking Tylenol for pain but does not feel like it is helping at all with her pain. She is unable to take NSAIDS, on blood thinner. She states she has also tried Lidocaine patches, CBD oils, Biofreeze, heat and icewith no relief. HTN: Patient has noted at home her blood pressure has been running 160-170's/80-90's. She denies any chest pain, SOB, palpitations, edema to legs/ankles, headaches, or nosebleeds. She has apt with Dr. Robertson tomorrow and will talk to him about her blood pressure. Urinary incontinence: Patient states that she has had issues with urinary incontinence for many years. She states she has issues with urgency incontinence and stress incontinence. She wears a pad allthe time because she is unsure when she will be incontinent at times. She has never been medicated for incontinence. The following were reviewed and updated as appropriate for today's visit: allergies, current medications, past family history, past medical history, past social history, past surgical history and problem list. Patient's Medications New Prescriptions OXYBUTYNIN (DITROPAN-XL) 5 MG 24 HR TABLET Take 1 (one) tablet (5 mg total) by mouth daily . TRAMADOL (ULTRAM) 50 MG TABLET Take 1 (one) tablet (50 mg total) by mouth 2 (two) times a day as needed for pain (Days supply per fill: 7) . Previous Medications ASPIRIN 81 MG EC TABLET Take 81 mg by mouth daily . ATORVASTATIN (LIPITOR) 80 MG TABLET Take 1 (one) tablet (80 mg total) by mouth nightly . CARBAMAZEPINE (TEGRETOL XR) 100 MG 12 HR TABLET Take 1 (one) tablet (100 mg total) by mouth 2 (two)times a day May increase with 200 mg twice a day after a week if tolerated. . CHOLESTYRAMINE (QUESTRAN) 4 GRAM PACKET Take 1 (one) packet by mouth daily with breakfast Hour prior or hour post . ERGOCALCIFEROL (ERGOCALCIFEROL) 50,000 UNIT CAPSULE Take 1 (one) capsule (50,000 Units total) by mouth every 14 (fourteen) days . FLUTICASONE PROPIONATE (FLOVENT HFA) 110 MCG/ACTUATION INHALER Inhale 2 (two) puffs 2 (two) times aday Rinse mouth after each use . LORATADINE (CLARITIN) 10 MG TABLET Take 10 mg by mouth daily . METOPROLOL TARTRATE (LOPRESSOR) 25 MG TABLET Take 1 (one) tablet (25 mg total) by mouth 2 (two) times a day . MULTIVIT-MIN/IRON/FOLIC/LUTEIN (CENTRUM SILVER WOMEN ORAL) Take 1 tablet by mouth daily. NITROGLYCERIN (NITROSTAT) 0.[address] 1 (one) tablet (0.4 mg total) under the tongue every 5 (five) minutes as needed for chest pain , if no relief after 3 doses call 911 . OMEPRAZOLE (PRILOSEC) 40 MG CAPSULE Take 1 (one) capsule (40 mg total) by mouth daily . TICAGRELOR (BRILINTA) 90 MG TAB TABLET Take 1 (one) tablet (90 mg total) by mouth 2 (two) times a day . Modified Medications No medications on file Discontinued Medications LEVOCETIRIZINE (XYZAL) 5 MG TABLET Take 5 mg by mouth every evening . TOPIRAMATE (TOPAMAX) 50 MG TABLET 100 mg in the morning and 50 mg in the evening . Review of Systems Review of Systems Constitutional: Negative for activity change and fatigue. HENT: Negative for hearing loss. Eyes: Negative for visual disturbance. Respiratory: Negative for cough, chest tightness and shortness of breath. Cardiovascular: Negative for chest pain and palpitations. Genitourinary: Urinary incontinence Musculoskeletal: Positive for arthralgias and back pain. Negative for gait problem. Skin: Negative. Neurological: Negative for dizziness, weakness, light-headedness and headaches. Psychiatric/Behavioral: Negative for agitation. Vitals: 01/16/20 0951 01/16/20 0956 BP: (!) 167/90 (!) 162/92 BP Location: Left arm Left arm Patient Position: Sitting Sitting BP Cuff Size: X-large Adult X-large Adult Pulse: 75 75 Resp: 18 Temp: 98.2 F (36.8 C) TempSrc: Temporal SpO2: 98% Weight: 65.9 kg (145 lb 4.8 oz) Height: 5' 4 Body mass index is 24.94 kg/m . Physical Exam Physical Exam Constitutional: She is oriented to person, place, and time. She appears well- developed and well-nourished. HENT: Right Ear: External ear normal. Left Ear: External ear normal. Nose: Nose normal. Mouth/Throat: Oropharynx is clear and moist and mucous membranes are normal. Eyes: Conjunctivae, EOM and lids are normal. Neck: Normal range of motion. Cardiovascular: Normal rate, regular rhythm and normal heart sounds. No murmur heard. Pulmonary/Chest: Effort normal and breath sounds normal. Musculoskeletal: Comments: Normal gait Neurological: She is alert and oriented to person, place, and time. GCS eye subscore is 4. GCS verbal subscore is 5. GCS motor subscore is 6. Skin: Skin is warm and dry. Psychiatric: She has a normal mood and affect. Her speech is normal and behavior is normal. OARRS/NARxCHECK Report Received and Assessed: No data found Date controlled substance agreement signed: No data found Date of last drug screen: No data found Functional Assessment: No data found Assessment/Plan Problem List Items Addressed This Visit Endocrine Diabetes mellitus (HCC) Relevant Orders Comprehensive Metabolic Panel Hemoglobin A1c Cardiovascular and Mediastinum Hypertension Talk with Dr. Robertson tomorrow about your elevated blood pressure. Relevant Orders CBC and Differential Comprehensive Metabolic Panel Other At low risk for fall - Primary Hyperlipidemia Relevant Orders Comprehensive Metabolic Panel Lipid Panel TSH with Reflex Free T4 Mixed incontinence urge and stress Will try Ditropan 5 mg daily to see if this helps. We can increase dose if you do not have side effects. If medication does not help and you continue to have symptoms please let me know. I can put coco referral to female urology Dr. Rasmussen in [place], [place]. Vitamin D deficiency Relevant Orders Vitamin D, Total, 25-OH Other Visit Diagnoses Mixed stress and urge urinary incontinence Relevant Medications oxybutynin (DITROPAN-XL) 5 MG 24 hr tablet Chronic left SI joint pain Relevant Medications traMADoL (ULTRAM) 50 mg tablet Other Relevant Orders Ambulatory referral to Orthopedics Sciatica, left side Relevant Medications traMADoL (ULTRAM) 50 mg tablet Other Relevant Orders Ambulatory referral to Orthopedics For any new medications prescribed today, patient was educated about indications for the medication, how to take the medication and potential side effects of the medications. [facility] Depression Screening 07/01/2016 03/26/2017 03/23/2018 08/23/2018 12/22/2018 01/12/2020 Little interest or pleasure in doing things 0 0 0 0 0 0 Feeling down, depressed, or hopeless 1 0 0 0 0 1 PHQ-2 Total Score 1 0 0 0 0 1 Trouble falling or staying asleep, or sleeping too much 0 - - - 0 1 Feeling tired or having little energy 0 - - - 0 1 Poor appetite or overeating 0 - - - 1 0 Feeling bad about yourself - or that you are a failure or have let yourself or your family down 0 -- - 0 0 Trouble concentrating on things, such as reading the newspaper or watching television 1 - - - 0 0 Moving or speaking so slowly that other people could have noticed. Or the opposite - being so fidgety or restless that you have been moving around a lot more than usual 0 - - - 0 0 Thoughts that you would be better off , or of hurting yourself in some way 0 - - - 0 0 PHQ-9 Total Score 1 - - - 1 3 RETIRED - PHQ-9 Total Score 2 - - - - - If you checked off any problems, how difficult have these problems made it for you to do your work,take care of things at home, or get along with other people? Not difficult at all - - - Not difficult at all Not difficult at all documented in this encounter* Nena Dickerson MD - 02/27/2020 10:41 AM EST [facility] [address] ([address]) [facility] [address] [facility] [phone] Cat Carroll is a 84 y.o. female being seen today, 02/27/20, Chief Complaint Patient presents with Lower Back - Pain Follow-up f\u lumbago-mri [chief complaint] low back pain radiation left buttock posterior anterior thigh HPI Dictation: Returns indicating anything her symptoms have improved since she was last seen with MRI showing advanced degenerative disc disease with central disc extrusion resulting in severe spinal stenosis at the L2-3 level we discussed options she would not consider surgery under any circumstance explained to the other alternatives include physical therapy injections she is already taken [id number] medication [hpi] Physical Exam Dictation: [PE] crease pain with all lumbar motion paraspinal spasm pain left buttock posterior thigh but nondermatomal Assessment and Plan Dictation: [AP] plan she like to try physical therapy I will see her back when she finishes if not improved consider epidural injection I have reviewed all relevant histories, medications, allergies, and problem list items with Cat Carroll during this visit. Review of Systems Constitutional: Negative for chills and fever. HENT: Negative for congestion. Respiratory: Negative for shortness of breath. Cardiovascular: Negative for chest pain. Gastrointestinal: Negative for diarrhea, nausea and vomiting. Neurological: Negative for headaches. Psychiatric/Behavioral: Negative for behavioral problems. BP (!) 171/84 Pulse 83 Ht 5' 4 Wt 64.4 kg (142 lb) BMI 24.37 kg/m Imaging: No results found. 1. Sciatica, left side 2. Spinal stenosis of 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 neurogenic claudication 3. Lumbar degenerative disc disease Return in about 4 weeks (around 03/26/2020). Nena Dickerson MD documented in this encounter* Caitie Mclaughlin MD - 06/30/2018 8:30 AM EDT Subjective Patient ID: Cat Carroll is a 83 y.o. female. Chief Complaint Patient presents with Follow-up UTI completed ATB yesterday Trigeminal Neuralgia HPI Trigeminal Neuralgia: She states she has been battling this for over 20 years and she has been on multiple medications inthe past and has been followed by a neurologist in the past. She states she was on Tegretol and Neurontin and did not like that they messed with her memory. She states that since last office visit when Topamax was increased to 100 mg in the morning 50 mg in the evening, the Topamax has done a better job of keeping the pain down, she states she has pain along the left side of her nose, left cheek,around left eye, and left eyebrow. States the pain is a tingly, sharp shooting pain when touched. Pain about 9/10 currently. Accupuncture worked best but her insurance won't cover so she stopped. Topamax was increased last office visit. Hypertension: Patient has a history of hypertension since 1999. Most recently their condition has been stable . They report no angina, anginal equivalent, palpitations or change in exercise tolerance. moderately active. Current medications include: Losartan 50 mg daily, metoprolol titrate Lopressor 100 mg twice a day. Urinary Tract Infection Cat completed 7-day course of Keflex yesterday. She has had symptoms for 1 year or more. Severity of illness is very severe Fever- No. Back pain- yes, aching this week. +Nausea no vomiting. Treatment tried- Azo Did not help, Keflex. + dysuria for 3 weeks. + frequency quite some time because Ihave been trying to drink a lot of water- but not going quite as often since Keflex. History of recurrent urinary tract infections? Yes- last UTI was 06/23/18, (prior to this: 10/12/17 and 09/08/17. Culture >100,000 CFU/mL Escherichia coliAbnormal Resulting Agency: Lab Susceptibility Escherichia coli PATEL Amikacin <=2 mcg/mL Susceptible Ampicillin <=2 mcg/mL Susceptible Ampicillin + Sulbactam <=2 mcg/mL Susceptible Aztreonam <=1 mcg/mL Susceptible Cefazolin <=4 mcg/mL Susceptible Cefepime <=1 mcg/mL Susceptible Ciprofloxacin <=0.25 mcg/mL Susceptible1 Gentamicin <=1 mcg/mL Susceptible Meropenem <=0.25 mcg/mL Susceptible Nitrofurantoin <=16 mcg/mL Susceptible Piperacillin + Tazobactam <=4 mcg/mL Susceptible Tobramycin <=1 mcg/mL Susceptible Trimethoprim + Sulfamethoxazole <=20 mcg/mL Susceptible Lab Draw on 06/23/2018 Component Date Value Ref Range Status Vit D, 25-Hydroxy 06/23/2018 48 30 - 100 ng/mL Final Sodium 06/23/2018 139 135 - 145 mmol/L Final Potassium 06/23/2018 4.0 3.5 - 5.1 mmol/L Final Chloride 06/23/2018 108 98 - 108 mmol/L Final Bicarbonate 06/23/2018 23 21 - 32 mmol/L Final Anion Gap 06/23/2018 12 10 - 20 mmol/L Final Glucose 06/23/2018 116* 65 - 99 mg/dL Final BUN 06/23/2018 23 8 - 25 mg/dL Final Creatinine 06/23/2018 1.12 0.60 - 1.20 mg/dL Final eGFR 06/23/2018 46* >=60 mL/min/1.73 m2 Final BUN/Creatinine Ratio 06/23/2018 20.5* 10.0 - 20.0 Final Total Protein 06/23/2018 7.3 6.0 - 8.0 g/dL Final Albumin 06/23/2018 3.6 3.2 - 5.2 g/dL Final Calcium 06/23/2018 8.9 8.4 - 10.2 mg/dL Final Alkaline Phosphatase 06/23/2018 112 40 - 150 U/L Final AST 06/23/2018 15 0 - 45 U/L Final Total Bilirubin 06/23/2018 0.3 0.0 - 1.3 mg/dL Final ALT 06/23/2018 27 14 - 65 U/L Final Office Visit on 06/23/2018 Component Date Value Ref Range Status Spec Grav, UA 06/23/2018 1.015 1.005 - 1.025 Final pH, UA 06/23/2018 6.5 5.0 - 7.0 Final Protein, UA 06/23/2018 Negative Negative mg/dL Final Glucose, UA 06/23/2018 Negative Normal, Negative mg/dL Final Ketones, UA 06/23/2018 Negative Negative mg/dL Final Bilirubin, UA 06/23/2018 Negative Negative Final Urobilinogen, UA 06/23/2018 0.2 <2.0, 0.2, Normal, Negative, 1.0, 2.0, <1.0 mg/dL Final Blood, UA 06/23/2018 Trace-intact* Negative Final Nitrite, UA 06/23/2018 Positive* Negative Final Leukocyte Esterase, UA 06/23/2018 Trace* Negative Final Culture 06/23/2018 >100,000 CFU/mL Escherichia coli* Final The following portions of the patient's history were reviewed and updated as appropriate: allergies, current medications, past family history, past medical history, past social history, past surgicalhistory and problem list. Review of Systems Constitutional: Negative for activity change, appetite change, chills, diaphoresis, fatigue, fever and unexpected weight change. Respiratory: Negative for cough, chest tightness and shortness of breath. Cardiovascular: Negative for chest pain, palpitations and leg swelling. Neurological: Negative for dizziness, syncope, weakness and light-headedness. Hematological: Does not bruise/bleed easily. Psychiatric/Behavioral: Negative for confusion, decreased concentration and sleep disturbance. The patient is not nervous/anxious. She was treated with Keflex on both occasions. Urine cultures and sensitivities were reviewed. 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 Rick thompson. Dr Hinds BLADDER REPAIR 1990 CATARACT EXT/ECCE Bilateral 2011 Dr [place] CHOLECYSTECTOMY CYST REMOVAL Right 2000 cyst removal from rt breast-benign DILATION AND CURETTAGE (D AND C) 1970 x 2 EGD 01/01/2015 Dr. ZavalaBhqmoq-Dicvpcbqq-Tpaleqw's esophagus EGD 08/2014 Dr. Vinicius RamachandranX-Arzgcrjta-Jmavjai's esophagitis biopsies negative for dysplasia. ESOPHAGOGASTRODUODENOSCOPY 01/04/2018 Dr. Zavala -biopsies performed-Kelly's esophagitis-carcinoid tumor posterior wall duodenum FRACTURE SURGERY Right Plates and screws in rt arm after fracture. dr Dolan HYSTERECTOMY 1975 KIDNEY SURGERY 1969 had exploratory surgery d/t floating kidney Dx KNEE SURGERY Left 1998 left knee arthoscopy LUMPECTOMY Left 1989 benign SQUAMOUS CELL CARCINOMA EXCISION x4 TOTAL KNEE ARTHROPLASTY Left 2012 dr dolan TUMOR REMOVAL 2011 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 Family History Problem Relation Age of Onset Diabetes Mother Heart disease Mother Heart disease Father Stroke Father Diabetes Sister Heart disease Brother Diabetes Brother Diabetes Maternal Uncle Bipolar disorder Daughter Diabetes Son Social History Socioeconomic History Marital status: Spouse name: Not on file Number of children: 2 Years of education: 12 Highest education level: Not on file Social Needs Financial resource strain: Not on file Food insecurity - worry: Not on file Food insecurity - inability: Not on file Transportation needs - medical: Not on file Transportation needs - non-medical: Not on file Occupational History Not on file Tobacco Use Smoking status: Former Smoker Types: Cigarettes Last attempt to quit: 04/03/1976 Years since quittin.2 Smokeless tobacco: Never Used Substance and Sexual Activity Alcohol use: No Drug use: No Sexual activity: Never Other Topics Concern Not on file Social History Narrative Not on file Allergies Allergen Reactions Aspirin Codeine Unknown Latex, Natural Rubber Unknown Fephlmnp-Azijwfmkufh-Owptmyhio Hydrocortisone Rash Current Outpatient Medications: cholestyramine (QUESTRAN) 4 gram packet, Take 1 (one) packet by mouth daily with breakfast Hour prior or hour post ., Disp: 90 each, Rfl: 3 ergocalciferol (ERGOCALCIFEROL) 50,000 unit capsule, Take 1 (one) capsule (50,000 Units total) by mouth every 14 (fourteen) days ., Disp: 7 capsule, Rfl: 3 fluticasone propionate (FLOVENT HFA) 110 mcg/actuation inhaler, Inhale 2 (two) puffs 2 (two) times a day Rinse mouth after each use ., Disp: 3 Inhaler, Rfl: 3 losartan (COZAAR) 50 MG tablet, Take 1 (one) tablet (50 mg total) by mouth daily., Disp: 30 tablet,Rfl: 11 metoprolol tartrate (LOPRESSOR) 100 MG tablet, TAKE ONE-HALF (1/2) TABLET TWICE A DAY, Disp: 180 tablet, Rfl: 3 MULTIVIT-MIN/IRON/FOLIC/LUTEIN (CENTRUM SILVER WOMEN ORAL), Take 1 tablet by mouth daily., Disp: , Rfl: omeprazole (PRILOSEC) 40 MG capsule, Take 1 (one) capsule (40 mg total) by mouth daily ., Disp: 90 capsule, Rfl: 3 topiramate (TOPAMAX) 50 MG tablet, Take 2 tablets in the morning , 1 In the evening ., Disp: 270 tablet, Rfl: 3 Objective Vitals: 06/30/18 0828 BP: 128/76 BP Location: Left arm Patient Position: Sitting BP Cuff Size: Adult Pulse: 64 Resp: 16 Temp: 97.5 F (36.4 C) TempSrc: Temporal SpO2: 98% Weight: 65.9 kg (145 lb 3.2 oz) Height: 5' 4 Physical Exam Constitutional: She appears well-developed and well-nourished. No distress. HENT: Head: Normocephalic. Cardiovascular: Normal rate, regular rhythm and normal heart sounds. Exam reveals no gallop and no friction rub. No murmur heard. Pulmonary/Chest: Effort normal and breath sounds normal. No respiratory distress. She has no wheezes. She has no rales. Abdominal: Soft. There is no hepatosplenomegaly. There is tenderness in the right lower quadrant and suprapubic area. There is no CVA tenderness. Musculoskeletal: She exhibits no edema or tenderness. Neurological: She is alert. Skin: Skin is warm and dry. She is not diaphoretic. Psychiatric: She has a normal mood and affect. Her behavior is normal. Judgment and thought contentnormal. Nursing note and vitals reviewed. Assessment/Plan: 1. Trigeminal neuralgia of left side of face Chronic problem-improved The current medical regimen is effective; continue present plan and medications. Keep appt with neurology for now. If symptoms still well controlled as appt approaches, can cancel 2. Frequent UTI Patient has had 3 UTIs since September 2017. Discussed lactic antibiotics. Going to patient that we would like to be sure her infection has cleared and given her current symptoms I cannot say this for sure. Further recommendations pending culture results - POC Urinalysis Dipstick - Urine Aerobic Culture - sulfamethoxazole-trimethoprim (BACTRIM DS,SEPTRA DS) 800-160 mg per tablet; Take 1 (one) tablet by mouth 2 (two) times a day for 7 days . Dispense: 14 tablet; Refill: 0 3. Essential hypertension Chronic problem-stable The current medical regimen is effective; continue present plan and medications. Electronically signed by: Dr Caitie Mclaughlin 8:37 AM 06/30/18 * Mary Moore LPN - 06/30/2018 8:26 AM EDT Pt report TGN is much better since the increase in the topiramate. Pt reports completed ATB yesterday. Pt reports still having the burning with urination and low back pain. Pt denies any fever or hematuria. Pt reports she has had periodic nausea. documented in this encounter* Christine Silver RN - 08/24/2018 12:16 PM EDT Educated pt on Phase II Cardiac Rehab. Educational information given to pt and pt understands verbally. Pt plans to begin Cardiac Rehab on 09/06/18 at 10:30am. documented in this encounter* Christnie Silver RN - 08/30/2018 1:21 PM EDT [facility] [address] [place] [address] Office 08/24/2018 Patient: Cat Carroll : 1935 Primary Diagnosis: PCI The Cardiac Rehab Staff had the recent pleasure of meeting Cat for a consultation regarding outpatient cardiac rehabilitation. Most recently she presented with substernal chest pain and was positive for an inferior wall IA. On 08/23/2018 she underwent an emergent left heart cath which revealed anejection fraction of 42%, mid LAD 40 to 50% occluded, RCA occluded at the bifurcation of PDA and distal RCA. On 08/23/2018 she underwent PCI with 2 HANNAH to the distal right in the posterior AV segment. Risks and benefits associated with a cardiac rehab program were discussed along with her risk factors and a preliminary treatment plan and goals for the program. The Cardiac Rehab Staff will maintaincontact with you throughout the 12-week program. Thank you for allowing Cat to participate in [facility] comprehensive risk reduction program. Nutrition: GOAL: Recommend RD consultation for dietary intervention to aid with lipid control, diabetes control, and weight management. Weight Loss: GOAL: Maintain her current weight of 142 pounds. Our weight loss strategies will result in long-term goal of BMI less than 25 and a waist circumference of less than 35 /40 . Lipids: GOAL: Total cholesterol <200 mg/dL, LDL <70 mg/dL, HDL >45 mg/dL, TG <150 mg/dL. Blood Pressure: GOAL: Less than 120/80. BP 129/68 at today s visit. Recommend restriction of saturated fat, caloric intake and sodium intake and titration of medications to maintain BP < 120/80. Knowledge: GOAL: Individual and group education regarding CAD risk factors and long-term managementplans. Functional Capacity: GOAL: 2-4 METs. Exercise 4 6 days per week as outlined in the exercise prescription reviewed and approved by our medical billing assistant. Psychosocial: PHQ9 health questionnaire was given to Cat. She will complete the survey and return it on the first exercise session. The score will be updated on her initial ITP and reviewed by ourphysicians. Cat plans to begin her cardiac rehab program on 09/06/2018. The Cardiac Rehab staff will continue to monitor the patient hemodynamically as well as electrocardiographically. Please let me know if you have any questions. I appreciate the opportunity to be of assistance in this patient's care. Sincerely, Christine Silver RN, BSN, ACSM-CEP/EP Supervising Physician: Dr. Jackson documented in this encounter Reason for Referral Status Reason Specialty Diagnoses / Procedures Referred By Contact Referred To Contact Authorized Neurology Diagnoses Trigeminal neuralgia of left side of face Caitie Mclaughlin MD [address] [place] [address] Brayan Mena MD [address] [place] [address] Status Reason Specialty Diagnoses / Procedures Referred By Contact Referred To Contact Authorized Cardiac Rehabilitation Diagnoses Acute ST elevation myocardial infarction (STEMI) of inferolateral wall (HCC) Glen Fair MD [address] [place] [address] Cardio Pulm [address] [phone] Status Reason Specialty Diagnoses / Procedures Referred By Contact Referred To Contact New Request Radiology Diagnoses Trigeminal neuralgia Procedures MR Brain Without Contrast Brayan Mena MD [address] [place] [address] Status Reason Specialty Diagnoses / Procedures Referred By Contact Referred To Contact New Request Radiology Diagnoses Trigeminal neuralgia Procedures MRA Brain Without Contrast Brayan Mena MD [address] [place] [address] Status Reason Specialty Diagnoses / Procedures Referred By Contact Referred To Contact Authorized Radiology Diagnoses Chronic left-sided low back pain without sciatica Procedures MR Lumbar Spine Without Contrast Nena Dickerson MD [address] [place] [address] Status Reason Specialty Diagnoses / Procedures Referre d By Contact Referred To Contact Closed Radiology Diagnoses Chronic left-sided low back pain without sciatica Procedures MR Lumbar Spine Without Contrast Nena Dickerson MD [address] [place] [address] Status Reason Specialty Diagnoses / Procedures Referred By Contact Referred To Contact Pending Review Specialty Services Required/Patie nt's Best Interest Care Management Diagnoses S/P right hip fracture Gisell Desai, CONTINUOUS IMPROVEMENT BLACK BELT [address] [phone] [facility] [address] [place] [address] Status Reason Specialty Diagnoses / Procedures Referred By Contact Referred To Contact Authorized Specialty Services Required/Patie nt's Best Interest Care Management Diagnoses S/P right hip fracture Gisell Desai, CONTINUOUS IMPROVEMENT BLACK BELT [address] [phone] [facility] [address] [place] [address] Status Reason Specialty Diagnoses / Procedures Referred By Contact Referred To Contact Pending Review Orthopedic Surgery Diagnoses Chronic left SI joint pain Sciatica, left side Gisell Desai, CONTINUOUS IMPROVEMENT BLACK BELT [address] [phone] Nena Dickerson MD [address] [phone] Status Reason Specialty Diagnoses / Procedures Referred By Contact Referred To Contact Pending Review Palliative Care Diagnoses Simple chronic bronchitis (HCC) Uncontrolled pain Gisell Desai, CONTINUOUS IMPROVEMENT BLACK BELT [address] [phone] Specialty Diagnoses / Procedures Referred By Contac t Referred To Contact Rehabilitation Diagnoses At moderate risk for fall Gabi Xie MD [address] [phone] Referral ID Status Reason Start Date Expiration Date V isits Requested Visits Authorized [id number] Authorized 10/16/2021 10/16/2022 1 1 Specialty Diagnoses / Procedures Referred By Contac t Referred To Contact Sports Medicine Diagnoses Chronic left SI joint pain Left hip pain Gabi Xie MD [address] [place] [address] [facility] [place] [address] Referral ID Status Reason Start Date Expiration Date V isits Requested Visits Authorized [id number] Authorized 10/17/2021 10/17/2022 1 1 Specialty Diagnoses / Procedures Referred By Contac t Referred To Contact Rehabilitation Diagnoses DDD (degenerative disc disease), lumbar Carolina Clark, CONTINUOUS IMPROVEMENT BLACK BELT [address] [place] [address] [facility] [address] [place] [phone] Referral ID Status Reason Start Date Expiration Date Visits Requested Visits Authorized [id number] Pending Review Specialty Services Required/Pat ient's Best Interest 11/05/2021 11/05/2022 1 1 Specialty Diagnoses / Procedures Referred By Contac t Referred To Contact Urology Diagnoses Mixed incontinence urge and stress Vulvovaginal discomfort Claudine Majano MD [address] [place] [address] Shantel Rasmussen MD [address] [place], [place] [phone] Referral ID Status Reason Start Date Expiration Date Visits Requested Visits Authorized [id number] Authorized Specialty Services Required/Pat ient's Best Interest 04/16/2022 04/16/2023 1 1 Scheduling Instructions Fax to Specialty Diagnoses / Procedures Referred By Contac t Referred To Contact Diagnoses Simple chronic bronchitis (HCC) Claudine Majano MD [address] [place] [address] Referral ID Status Reason Start Date Expiration Date V isits Requested Visits Authorized [id number] Pending Review 1 1 Specialty Diagnoses / Procedures Referred By Contac t Referred To Contact Neurological Surgery Diagnoses Trigeminal neuralgia of left side of face Brayan Mena MD [address] [address] [address] [facility] Department of Neurology [address] [place] [address] Phone: [phone] Fax: [phone] Referral ID Status Reason Start Date Expiration Date Visits Requested Visits Authorized [id number] Pending Review Specialty Services Required/Pat ient's Best Interest 3 02/18/2024 1 1 Specialty Diagnoses / Procedures Referred By Contac t Referred To Contact Radiology Diagnoses DDD (degenerative disc disease), lumbar Procedures MR Lumbar Spine Without Contrast Jake Navarro DO [address] [place] [address] Referral ID Status Reason Start Date Expiration Date V isits Requested Visits Authorized [id number] New Request 04/29/2023 04/28/2024 1 1 Specialty Diagnoses / Procedures Referred By Contac t Referred To Contact Cardiology Diagnoses Leg swelling Encounter for follow-up examination after completed treatment for conditions other than malignant neoplasm Procedures US Doppler ankle/brachial index Claudine Majano MD [address] [address] [facility] [address] [place] [address] Referral ID Status Reason Start Date Expiration Date V isits Requested Visits Authorized [id number] Authorized 05/11/2023 05/10/2024 1 1 Specialty Diagnoses / Procedures Referred By Contac t Referred To Contact Cardiology Diagnoses Acute ST elevation myocardial infarction (STEMI) of inferior wall (HCC) Coronary artery disease 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 Clotilde Duffy, RAYMUNDO [address] [address] Diogo Schroeder MD [address] [place] [address] Referral ID Status Reason Start Date Expiration Date V isits Requested Visits Authorized [id number] Pending Review 05/13/2023 05/12/2024 1 1 Specialty Diagnoses / Procedures Referred By Contac t Referred To Contact Cardiology Diagnoses Preop cardiovascular exam Acute myocardial infarction, unspecified IA type, unspecified artery (HCC) Procedures Echocardiogram complete Echocardiogram complete Claudine Majano MD [address] [address] [facility] [address] [place] [address] [place] [address] Referral ID Status Reason Start Date Expiration Date V isits Requested Visits Authorized [id number] New Request 07/07/2023 07/06/2024 1 1 Referral ID Status Reason Start Date Expiration Date Visits Re quested Visits Authorized [id number] Closed 04/29/2023 04/28/2024 1 1 Hospital Course * Callie Hernandez, RAYMUNDO - 08/25/2018 10:42 AM EDT DISCHARGE SUMMARY Patient: Cat Carroll Date of : 1935 Site: [facility] Family Provider: Caitie Mclaughlin MD Admit Date: 08/23/2018 Discharge Date/Time: 08/25/2018 Disposition: Home Clinical Summary Hospital Course: Cat Carroll is a 83 y.o. female patient of Caitie Mclaughlin MD with a history of hypertension and frequent UTIs that presented to [facility] with complaints of acute onset ofsubsternal chest pain with EKG consistent with inferior ST elevation IA. [facility] 08/23/2018 revealed moderate LV systolic dysfunction with estimated LVEF of 42%. Normal LV end-diastolic pressure. Segmental contraction abnormality of the LV. 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 Subsequently received successful catheter-based intervention with HANNAH placement in the distal right conduit, extending into the posterior AV segment, with denominational of MERLY-3 flow and 0 residual stenosis. Patient has been hemodynamically stable on GDMT post procedure. She is without complaints of activechest pain or shortness of breath. She has been up ambulating without cardiac issues. Follow-up in the ambulatory setting with cardiology as well as cardiac rehab has been recommended. She is agreeable to plan of care and is stable for discharge. Discharge Diagnoses: Acute ST elevation myocardial infarction (STEMI) of inferior wall (HCC) Assessment & Plan Denies current complaints of chest pain, shortness of breath, lightheadedness or dizziness. Does endorse some chest soreness yesterday. Has been up ambulating without cardiac issues. Post PCI instructions reviewed with patient including importance of DAPT compliance. Stated allergyto aspirin is reported as GI upset. Has been receiving aspirin in the hospital setting without complaints. Cardiac rehab to see patient prior to discharge. [employer] co-pay card will be provided. Prescriptions will be sent to local pharmacy. She is agreeable to plan of care and appears stable for discharge. HTN (hypertension), benign Assessment & Plan Well-controlled on current regimen. Anticipate reinitiation of her home regimen of losartan as blood pressure will allow in the ambulatory setting. Surgeries: 08/23/18 Left Heart Cath Consults: Procedures Hospitalize Patient To : Inpatient consult to Cardiac Rehab Allergies: Aspirin; Codeine; Latex, natural rubber; Kkplcrsv-yizcqopeymw-sqecpusfz; and Hydrocortisone Discharge Diet: Cardiac diet Condition: Good Discharge Medications: Current Discharge Medication List CONTINUE these medications which have NOT CHANGED Details cholestyramine (QUESTRAN) 4 gram packet Take 1 (one) packet by mouth daily with breakfast Hour prior or hour post . Qty: 90 each, Refills: 3 Associated Diagnoses: Gastroesophageal reflux disease, esophagitis presence not specified ergocalciferol (ERGOCALCIFEROL) 50,000 unit capsule Take 1 (one) capsule (50,000 Units total) by mouth every 14 (fourteen) days . Qty: 7 capsule, Refills: 3 Associated Diagnoses: Vitamin D deficiency fluticasone propionate (FLOVENT HFA) 110 mcg/actuation inhaler Inhale 2 (two) puffs 2 (two) times aday Rinse mouth after each use . Qty: 3 Inhaler, Refills: 3 Associated Diagnoses: Simple chronic bronchitis (HCC) losartan (COZAAR) 50 MG tablet Take 1 (one) tablet (50 mg total) by mouth daily. Qty: 30 tablet, Refills: 11 Associated Diagnoses: Essential hypertension metoprolol tartrate (LOPRESSOR) 100 MG tablet TAKE ONE-HALF (1/2) TABLET TWICE A DAY Qty: 180 tablet, Refills: 3 MULTIVIT-MIN/IRON/FOLIC/LUTEIN (CENTRUM SILVER WOMEN ORAL) Take 1 tablet by mouth daily. omeprazole (PRILOSEC) 40 MG capsule Take 1 (one) capsule (40 mg total) by mouth daily . Qty: 90 capsule, Refills: 3 Associated Diagnoses: Gastroesophageal reflux disease, esophagitis presence not specified topiramate (TOPAMAX) 50 MG tablet Take 2 tablets in the morning , 1 In the evening . Qty: 270 tablet, Refills: 3 Associated Diagnoses: Trigeminal neuralgia of left side of face Physician(s) Family Provider: Caitie Mclaughlin MD, Address: [address] [place] [address] / [facility] [address] Follow Up: No follow-up provider specified. Additional Information: Please see post PCI discharge instructions. Please see AVS summary for OP appointments. Patient instructions, including activity, were given to the patient/family at discharge. Please seethe After Visit Summary in the electronic medical record for details. Time spent on discharge: > 30 minutes Completed by: Callie Hernandez CNP on 06/19/19, 11:04 AM documented in this encounter Discharge Instructions * Instructions* Flor Gomez RN - 08/23/2018 Reducing Heart Attack Risk With Daily Medicine: Care Instructions Your Care Instructions Heart disease is the number one cause of . If you are at risk for heart disease, there are many medicines that can reduce your risk. These include: JULIETH inhibitors or ARBs. These are types of blood pressure medicines. They can reduce the risk of heart attacks and strokes if you are at high risk. Statin medicines. These lower cholesterol. They can also reduce the risk of heart disease and strokes. Aspirin and other antiplatelets. These prevent blood clots. They can help certain people lower their risk of a heart attack or stroke. Beta-fransisca medicines. These are a type of blood pressure and heart medicine. They can reduce the chance of early if you have had a heart attack. All medicines can cause side effects. So it is important to understand the pros and cons of any medicine you take. It is also important to take your medicines exactly as your doctor tells you to. Follow-up care is a avila part of your treatment and safety. Be sure to make and go to all appointments, and call your doctor if you are having problems. It's also a good idea to know your test resultsand keep a list of the medicines you take. JULIETH inhibitors JULIETH (angiotensin-converting enzyme) inhibitors are used for three main reasons. They lower blood pressure, protect the kidneys, and prevent heart attacks and strokes. Examples include benazepril (Lotensin), lisinopril (Prinivil, Zestril), and ramipril (Altace). An angiotensin II receptor fransisca (ARB) may be used instead of an JULIETH inhibitor. ARBs help you in the same ways as JULIETH inhibitors. Examples include candesartan (Atacand), irbesartan (Avapro), and losartan (Cozaar). Before you start taking an JULIETH inhibitor or an ARB, make sure your doctor knows if: You are taking a water pill (diuretic). You are taking potassium pills or using salt substitutes. You are or . You have had a kidney transplant or other kidney problems. JULIETH inhibitors and ARBs can cause side effects. Call your doctor right away if you have: Trouble breathing. Swelling in your face, head, neck, or tongue. Dizziness or lightheadedness. A dry cough. Statins Statins lower cholesterol. Examples include atorvastatin (Lipitor), lovastatin (Mevacor), pravastatin (Pravachol), and simvastatin (Zocor). Before you start taking a statin, make sure your doctor knows if: You have had a kidney transplant or other kidney problems. You have liver disease. You take any other prescription medicine, ebgf-bkg-lsbozos medicine, vitamins, supplements, or herbal remedies. You are or . Statins can cause side effects. Call your doctor right away if you have: New, severe muscle aches. Brown urine. Aspirin Taking an aspirin every day can lower your risk for a heart attack. A heart attack occurs when a blood vessel in the heart gets blocked. When this happens, oxygen can't get to the heart muscle, and part of the heart dies. Aspirin can help prevent blood clots that can block the blood vessels. Talk to your doctor before you start taking aspirin every day. He or she may recommend that you take one low-dose aspirin (81 mg) tablet each day, with a meal and a full glass of water. Taking aspirin isn't right for everyone. This is because it can cause serious bleeding. And you maynot be able to use aspirin if you: Have asthma. Have an ulcer or other stomach problem. Take some other medicine (called a blood thinner) that prevents blood clots. Are allergic to aspirin. Before having a surgery or procedure, tell your doctor or dentist that you take aspirin. He or she will tell you if you should stop taking aspirin beforehand. Make sure that you understand exactly what your doctor wants you to do. Aspirin can cause side effects. Call your doctor right away if you have: Unusual bleeding or bruising. Nausea, vomiting, or heartburn. Black or bloody stools. Beta-blockers Beta-blockers are used for three main reasons. They lower blood pressure, relieve angina symptoms (such as chest pain or pressure), and reduce the chances of a second heart attack. They include atenolol (Tenormin), carvedilol (Coreg), and metoprolol (Lopressor). Before you start taking a beta-fransisca, make sure your doctor knows if you have: Severe asthma or frequent asthma attacks. A very slow pulse (less than 55 beats a minute). Beta-blockers can cause side effects. Call your doctor right away if you have: Wheezing or trouble breathing. Dizziness or lightheadedness. Asthma that gets worse. When should you call for help? Watch closely for changes in your health, and be sure to contact your doctor if you have any problems. Where can you learn more? Log into your personal health record on [email or web address].Meal Mantra and enter R428 in the Education box to learn more about Reducing Heart Attack Risk With Daily Medicine: Care Instructions. Current as of: September 27, 2017 Content Version: 12.0 9862-7598 [employer]. Care instructions adapted under license by your healthcare professional. If you have questions about a medical condition or this instruction, always ask your healthcare professional. [employer] disclaims any warranty or liability for your use of this information. [facility] Post Cardiac Catheterization Discharge Instructions Site Care Leave Bandage in place the night of your catheterization. Watch for any bleeding or oozing from thesite. If this occurs, lie flat and place direct pressure on the bandage for 20 minutes. If bleedingreoccurs call [facility]. For groins, remove your bandage the following morning and apply a Band-Aid over the site, so it hasa complete seal over the area. This is to jo done for 5 days with a new Band-Aid each time. Soreness and bruising are to expected. For wrist and arms, remove your bandage the following morning and apply a Band- Aid over the site, so it has a complete seal over the area. This is to be done for 5 days with a new Band-Aid each time.Soreness and bruising are to be expected. Do not submerge catheterization site in water for 5 to 7 days following the procedure. Examples include bathing, swimming, sitting in a Jacuzzi or dishwashing. You may shower 24 hours after the procedure. Call [facility] at [phone] if you notice any of the following: Bleeding or increased swelling at the puncture site Redness Drainage (either pus or blood) Increased soreness around the wound A fever over 100 F Numbness, coldness, color change, or tingling pain in your arm or leg below the wound Light headedness, dizziness, weakness of arms or legs, or difficulty with speech Chest pain, pressure, tightness or burning in the chest, arm jaw or stomach Activity Limit your activity following the catheterization as follows: No lifting over 10 pounds for 2 days if done by groin No lifting over 5 pounds for 7 days if done by wrist. Do not manipulate the wrist for 24 hours No running, jogging, climbing (more than a few stairs) for 7 days No driving or operating heavy machinery for a minimum of 48 hours Do Not Smoke or use tobacco products for 24 hours after the procedure Discuss any other activity concerns with the nurse or physician Medications Continue taking all the current medications as directed on medication reconciliation record or unless otherwise instructed to by your physician. If you do not have prescription coverage and are in need of prescription assistance, please notify the [facility] nurse or call the office. If you were prescribed Plavix (clopidogrel), Effient (prasugrel), or Brilinta (ticagrelar) after your procedure, DO NOT STOP taking this medication unless told to do so by your [facility] general hardware salesperson. Follow up appointments, tests or procedures will be on your discharge paperwork under What's next. Please call [facility] at [phone] to reschedule any appointments if needed or if you have any questions or concerns. Thank you! Brilinta card placed in blue folder. Please take home. documented in this encounter Chief Complaint PT HERE FOR 4 WK FU RIGHT HIP FX. HERE WITH FAMILY. STATES HIP IS DOING WELL. DENIES STIFFNESS. OCCASIONAL PAIN. USING WALKER.Patient here accompanied by her daughter, Trinidad, for follow-up pelvic fracture. Patient states the pain from the pelvic fracture is resolved. Now states she has had intermittent pain in the left shoulder since the fall in December,; but did not want to tell anyone. States pain range can be 8/10in the shoulder.Patient here accompanied by her daughter, Trinidad, for follow-up pelvic fracture. Patient states the pain from the pelvic fracture is resolved. Now states she has had intermittent pain in the left shoulder since the fall in December,; but did not want to tell anyone. States pain range can be 8/10in the shoulder.NPV in office today for GERD. Patient is on palliative care, patient was on Prilosec in the past aswell as Questran and was told these interact with each other and the nurse told her to quit taking the Prilosec. Patient has some abdominal burning. Chief Complaint and Reason for Visit Chief Complaint CYSTO, BX, VIRAJTI ON Additional Source Comments Assessment & Plan Note - Americo Peña MD - 08/03/2017 4:31 PM EDTAssessment & Plan Note - Americo Peña MD - 06/09/2017 8:41 AM EDT Miscellaneous Notes (unrecog nized section and content) Associated Problem(s): At low risk for fall The importance of practicing exercise to maintain a sense of balance as we become older is well documented. Our ability to maintain balance is not a muscle but we need to practice balance to maintain a sense of balance. Balance prevents us from stumbling and then we need the core muscles to have the strength to prevent the fall. The combination of practicing balance as well as maintaining core strength is important as we get older and must be protected. Associated Problem(s): 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 Will try low dose hydroxyzine to help with sleep onset. Associated Problem(s): Hypertension Your last two readings for BP have been low normal. Will reduce the Losartan to 25 mg per day down from the 50 mg per day. Addended by: AMERICO PEÑA on: 08/03/2017 04:32 PM Modules accepted: SmartSet in this encounter Associated Problem(s): Hypertension Excellent control of BP . No change in medication. Continue to watch sodium intake.in this encounter Associated Problem(s): URI (upper respiratory infection) Inflammation in the back of the throat but no of the drainagae is colored or consistent with a bacterial infection. The ear drums as well as the lung are normal on exam. Will write for a course of Zithromax.in this encounter Associated Problem(s): Vitamin D deficiency Will check interval vitamin D level. Associated Problem(s): GERD (gastroesophageal reflux disease) Overall no symptoms on the 40 mg. 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 Associated Problem(s): Chronic kidney disease (CKD), stage III (moderate) Getting up 3-4 times per night to urinate. Will repeat the BMP today. Associated Problem(s): Hypertension Your blood pressure was excellent! 113/69 and your heart rate ws on 58. So we will reduce the Metoprolol from 100 mg twice a day to 50 mg twice a day.in this encounter Associated Problem(s): Frequent UTI Will send the urine for culture and start on Keflex 500 mg three times a day. If culture indicates will adjust medication. Associated Problem(s): Chronic bronchitis (HCC) Refill the Flovent today Associated Problem(s): Hypertension Well controlled on medication. Associated Problem(s): GERD (gastroesophageal reflux disease) Far control on the medication. Watch for dietary compliance. Associated Problem(s): Trigeminal neuralgia of left side of face Suggest you start taking a B Complex twice a day. Low grad B vitamin deficiency can increase the symptoms of the neurologia. Can increase the Topamax, but would prefer something cheaper and less side effects.in this encounter Associated Problem(s): Trigeminal neuralgia of left side of face Continue to take your B vitamin supplement every single day to help with your symptoms. I will also increase your Topamax to 50 mg in the morning and 25 mg in the evening. Make sure you are eating, if you are having problems with your appetite or the Topamax is not helping please call in to be seen again. Associated Problem(s): UTI (urinary tract infection) You were just treated for UTI about one month ago. Will start you back on Keflex and send your urine for culture to make sure we have you on the right antibiotic, if we need to change it we will let you know.in this encounter Associated Problem(s): Anxiety Have been on Lexapro x 7 years for anxiety and depression related to spouse's illness at that time. We can taper you off of the medication slowly so that you do not have withdrawal symptoms. Recommend taking one tablet daily x 4 weeks then 0.5 tablets daily x 2 weeks, then discontinue. Associated Problem(s): Left groin pain You continue to have Left lower abdominal pain, will get you in to see Dr. Zavala since you believe it is time for EGD, will also recommend colonoscopy for further evaluation.in this encounter Associated Problem(s): Left groin pain We will check a kidney ureter and bladder ultrasound to make sure no stone at the junction between the ureter and the bladder. However the urinalysis was ultimately negative. Associated Problem(s): Iliocostal friction syndrome You have tenderness on the inferior of the underneath side of the floating ribs and the top inside portion of the hip joint on that side. I believe that these 2 are rubbing and causing pain that wraps around very similar to urinary tract infection. Lslfi-gw-dmtx urinalysis: Specific gravity, 1.015. Glucose, negative. Ketones, negative. Blood, negative. Nitrate, negative. Leukocyte Estrace, negative. Urinary urinalysis was absolutely normal. It is possible that you have a stone but if you do that you do not have any blood. Will check ultrasound of the kidney ureter and bladder as well as a plain x-ray to look for a stone. You had no tenderness of the area of the costovertebral angle which would be consistent with a stone higher up. I believe that this will get better with a Lidoderm patch to numb up that area.in this encounter POC completed. Transfer to [facility] today. Remains with soreness in chest 2/10, controlled with tramadol and tylenol. R groin cath site without noted complications. Possible discharge home tomorrow. POC reviewed and updated. Patient possible d/c today. S/p PTCA- 2 HANNAH to RCA. Will continue to monitor. Post cath patient reports 7/10 sharp chest pain unrelieved by Tramadol, Tylenol, and SL Nitroglycerin. Patient is otherwise resting quietly in bed and in no distress. EKG showed no acute changes post cath and was reviewed by [facility] [employer]. BP dipped to the 70's systolic after 2 dose of Nitro but returned to low 100's systolic after a 250ml 0.9%NS bolus. VS now stable. Patient educated on all medications administered since arriving to floor. Problem: Pain Goal: Achievement of comfort function goal Outcome: Met Problem: Pain Goal: Manage acute pain Outcome: Not Met Problem: Cardiac Output - Decreased Goal: Cardiac output within specified parameters Outcome: Partially Met Problem: Pain Goal: Manage chronic pain Outcome: Partially Met Goal: Reduced pain sensation Outcome: Partially Met Problem: Plan for Discharge Goal: Knowledge of discharge plan and instructions Outcome: Partially Met Goal: Knowledge of medication management Outcome: Partially Met Associated Problem(s): HTN (hypertension), benign Well-controlled on current regimen. Anticipate reinitiation of her home regimen of losartan as blood pressure will allow in the ambulatory setting. Associated Problem(s): Acute ST elevation myocardial infarction (STEMI) of inferior wall (HCC) Denies current complaints of chest pain, shortness of breath, lightheadedness or dizziness. Does endorse some chest soreness yesterday. Has been up ambulating without cardiac issues. Post PCI instructions reviewed with patient including importance of DAPT compliance. Stated allergy to aspirin is reported as GI upset. Has been receiving aspirin in the hospital setting without complaints. Cardiac rehab to see patient prior to discharge. Brilinta co-pay card will be provided. Prescriptions will be sent to local pharmacy. She is agreeable to plan of care and appears stable for discharge. documented in this encounter Associated Problem(s): Hyperlipidemia Currently on high intensity statin with atorvastatin 80 mg daily. Lipids will be managed by primary care provider. Recommend ongoing diet and exercise Associated Problem(s): Hypertension Blood pressure controlled in the office today. Continue same medications and monitor Associated Problem(s): CAD (coronary artery disease) She is having some fatigue and having a little difficulty getting used to the new medicines. We did review them. She understands the importance of her medications. We talked about Brilinta and aspirin and that she needs to continue it for 1 year uninterrupted. She will continue with cardiac rehab and follow-up with Dr. Robertson in October documented in this encounter Associated Problem(s): CAD (coronary artery disease) The patient has no anginal chest discomfort. Her chest discomfort is clearly musculoskeletal. I would continue current medical therapy. She is on dual antiplatelet therapy. As far as endoscopy is concerned, she may not stop dual antiplatelet therapy until March at the earliest. At that time, she may hold her dual antiplatelet therapy for 3 days to be restarted again as soon as feasible. Associated Problem(s): Hypertension Her blood pressure is elevated today. It has been under excellent control previously. I have asked her to check her blood pressures at home. Associated Problem(s): Hyperlipidemia Lipids are followed through primary care. She remains on high intensity statin therapy. documented in this encounter Associated Problem(s): Trigeminal neuralgia of left side of face She is being followed by neurology. She did have MRI of the brain in February 2019. She was told that she may have an aneurysm. This is also being followed by neurology. I reviewed the report from that study did mention technical limitations. Associated Problem(s): CAD (coronary artery disease) She denies any anginal type chest discomfort at this time. She is on dual antiplatelet therapy. I would continue current medical therapy. Associated Problem(s): Hypertension Her blood pressure is acceptable on current medical therapy. Associated Problem(s): Hyperlipidemia She remains on high intensity statin therapy. Her lipids are followed through primary care. documented in this encounter Associated Problem(s): CAD (coronary artery disease) She denies any anginal type chest discomfort at this time. He remains on dual antiplatelet therapy. I have encouraged her to redouble her efforts at exercise. Associated Problem(s): Hypertension Her blood pressure has been running high at home. I have added losartan 25 mg daily to her medical regimen. Associated Problem(s): Hyperlipidemia She is on high intensity statin therapy. Her lipids are followed through primary care. Her last lipid profile was excellent. documented in this encounter Associated Problem(s): Depression I am going to start you on Cymbalta 30 mg a day to help with depression and pain. Let me know if you have any problems with this medication. documented in this encounter Associated Problem(s): Depression Will increase Cymbalta to 60 mg daily, if you are not having side effects or issues with this medication but it is not enough please let me know in about 2 weeks and I will increase the medication again. Associated Problem(s): 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-sided sciatica Call and talk to Dr. Hannah and see if he is willing to do an injection sooner. documented in this encounter Associated Problem(s): Depression Will increase Cymbalta to 60 mg daily, if you are not having side effects or issues with this medication but it is not enough please let me know in about 2 weeks and I will increase the medication again. Associated Problem(s): 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-sided sciatica Call and talk to Dr. Hannah and see if he is willing to do an injection sooner. documented in this encounter Rx request received to change day supply for mail order. Medication pended. documented in this encounter Associated Problem(s): Hyperlipidemia She remains on high intensity statin therapy. Her lipids are followed through primary care. Associated Problem(s): Hypertension Her blood pressure is under excellent control on current medical therapy. Associated Problem(s): CAD (coronary artery disease) The patient denies any anginal type chest discomfort. She is doing well status post drug-eluting stent placement x2 to the RCA and PDA. She is participating in phase 2 cardiac rehab without difficulty. Continue dual antiplatelet therapy. documented in this encounter Associated Problem(s): Status post right hip replacement Let me know if there is anything I can do to help, keep follow-up with orthopedic surgeon documented in this encounter Refills requested on pended medications. Last OV 03/27/20. Next OV 07/19/20. ----- Message from Tae De La Cruz sent at 04/30/2020 10:54 AM EST ----- Regarding: Rx Refill (w/dosage increase rqsts) Contact: Verlin/self NOTE: Pt requested a dosage increase on both meds per prior conversation with Gisell Desai. Please call pt at [phone] with any questions or concerns. MEDICATION REFILL REQUEST: PCP: Gisell Desai CNP Patient called 04/30/20 and is requesting a medication refill for DULoxetine (CYMBALTA) 60 MG [id number] Sig - Route: Take 1 (one) capsule (60 mg total) by mouth daily . - Oral Sent to pharmacy as: DULoxetine 60 mg capsule,delayed release (CYMBALTA) E-Prescribing Status: Receipt confirmed by pharmacy (03/27/2020 9:05 AM EST) oxybutynin (DITROPAN-XL) 5 MG 24 hr [id number] Sig - Route: Take 1 (one) tablet (5 mg total) by mouth daily . - Oral Sent to pharmacy as: oxybutynin chloride ER 5 mg tablet,extended release 24 hr (DITROPAN-XL) This was confirmed from the current medication list found in the patients chart. Supply Requested: # of days: 90 days Method of receiving: Send to pharmacy Last set of flowsheet rows for OARRS report: OARRS/NARxCHECK Report Received and Assessed: 04/11/2020 Date controlled substance agreement signed: 03/15/2020 Date of last drug screen: No data found Functional Assessment: No data found Will this refill be sent to the preferred pharmacy listed below? Yes Preferred pharmacies: [address] [address] Pt Call Back Number Work Phone Not on file. Patient call back message sent to the primary care clinical pool. Tae De La Cruz documented in this encounter Associated Problem(s): Mixed incontinence urge and stress Will try Ditropan 5 mg daily to see if this helps. We can increase dose if you do not have side effects. If medication does not help and you continue to have symptoms please let me know. I can put in a referral to female urology Dr. Rasmussen in [place], [place]. Associated Problem(s): Hypertension Talk with Dr. Robertson tomorrow about your elevated blood pressure. documented in this encounter I think lets try to move it up if we can since she is in pain CALLED PT LMOM ASKING TO CONTACT THE OFFICE TO SCHEDULE A TELEPHONE VISIT OR A VIDEO VISIT NEXT WEEK W/ CONTINUOUS IMPROVEMENT BLACK BELT INFORMED PATIENT OF MEDICATIONS CALLED IN PT HAS APPT 2/2. IS THIS TOO LATE? Can we do a telephone or video visit to address the pain medication and antidepressant LAST OV 03/15/2020 ( See Note Ask Gisell if she can give pt a new script for pain instead of tranadol & different anti-depressant ) Said both are not working ) -- Mariam Abarca ----- Message from Mariam Abarca sent at 03/23/2020 9:38 AM EST ----- Regarding: Rx Refill ( See Note Ask Gisell if she can give pt a different Script ) Contact: [facility] [phone] MEDICATION REFILL REQUEST: PCP: Gisell Desai CNP Patient called 03/23/20 and is requesting a medication refill for .cholestyramine (QUESTRAN) 4 gram powder atorvastatin (LIPITOR) 80 MG tablet() losartan (Cozaar) 25 MG tablet This was confirmed from the current medication list found in the patients chart. Supply Requested: # of days: 90 days Method of receiving: Send to pharmacy Last set of flowsheet rows for OARRS report: OARRS/NARxCHECK Report Received and Assessed: 03/15/2020 Date controlled substance agreement signed: 03/15/2020 Date of last drug screen: No data found Functional Assessment: No data found Will this refill be sent to the preferred pharmacy listed below? Yes ( See Note Ask Gisell if she can give pt a new script for pain instead of tranadol & different anti-depressant ) Said both are not working ) Preferred pharmacies: [facility] - [place], [place] - [address] [place], [place] [id number] [facility] [address] Pt Call Back Number Patient call back message sent to the primary care clinical pool. Mariam Abarca documented in this encounter INFORMATION SOURCE (unrecogn ized section and content) DATE CREATED AUTHOR 03/26/2018 [facility] DATE CREATED AUTHOR AUTHOR'S ORGANIZ ATION 01/15/2019 [facility] DATE CREATED AUTHOR AUTHOR'S ORGANIZ ATION 02/24/2021 [facility] DATE CREATED AUTHOR AUTHOR'S ORGANIZ ATION 01/17/2022 [facility] DATE CREATED AUTHOR AUTHOR'S ORGANIZ ATION 03/23/2023 [facility] DATE CREATED AUTHOR AUTHOR'S ORGANIZ ATION 10/15/2023 [facility] DATE CREATED AUTHOR AUTHOR'S ORGANIZ ATION 01/23/2024 [facility] DATE CREATED AUTHOR AUTHOR'S ORGANIZ ATION 10/16/2024 [facility] DATE CREATED AUTHOR AUTHOR'S ORGANIZ ATION 10/29/2024 [facility] DATE CREATED AUTHOR AUTHOR'S ORGANIZ ATION 10/30/2024 [facility] DATE CREATED AUTHOR AUTHOR'S ORGANIZ ATION 11/01/[address] [facility] DATE CREATED AUTHOR AUTHOR'S ORGANIZ ATION 11/07/2024 [facility] DATE CREATED AUTHOR AUTHOR'S ORGANIZ ATION 11/09/2024 [facility] Reason for Visit (unrecogniz ed section and content) Reason Comments Pain Specialty Diagnoses / Procedures Referred By Jane t Referred To Contact Sports Medicine Diagnoses Chronic left SI joint pain Left hip pain Gabi Xie MD [address] [place] [address] Carolina Clark, CONTINUOUS IMPROVEMENT BLACK BELT [address] [place] [address] Referral ID Status Reason Start Date Expiration Date Visits Re quested Visits Authorized [id number] Closed 10/17/2021 10/17/2022 1 1 Reason Comments Urinary Incontinence Trigeminal Neuralgia Reason Comments Medicare Wellness Visit rescheduled pt. due to no PCP available Reason Comments STEMI Alert Status Reason Specialty Diagnoses / Procedures Referre d By Contact Referred To Contact Diagnoses Acute ST elevation myocardial infarction (STEMI) of inferolateral wall (HCC) Reason Comments Transition Of Care 1st attempt Reason Comments Heart Problem Status Reason Specialty Diagnoses / Procedures Referred By Contact Referred To Contact Authorized Cardiac Rehabilitation Diagnoses Acute ST elevation myocardial infarction (STEMI) of inferolateral wall (HCC) Glen Fair MD [address] [place] [address] Cardio Pulm [address] [place] [address] Reason Comments Follow-up Pt is here s/p d/c a fter having a cath and stents placed. She denies any cardiac concerns for todays OV. Reason Comments Annual Exam Pt would like to dis cuss history of facial pain, B/W orders, review medications Reason Comments Follow-up 3 mo f/u. Pt has com pleted cardiac rehab. pt states she has been experiencing chest pressure and back pain since attending exercise classes at [place]. Pt has questions about upcoming endoscopy with Dr. Zavala. Reason Comments Trigeminal Neuralgia States that it feel s like she is getting electric shots in her face. States that she also has a hot burning sensation. This is happening on the left side of her face from the forehead down to the top lip. This has been happening off and on for twenty years now. Status Reason Specialty Diagnoses / Procedures Referred By Contact Referred To Contact Closed Specialty Services Required/Patient' s Best Interest Neurology Diagnoses Trigeminal neuralgia Americo Peña MD [address] [facility] [place] [address] [place] [address] Brayan Mena MD [address] [facility] [address] [place] [address] Reason Comments Follow-up no complaints. medic ations reviewed- refills pending Reason Comments Follow-up 6 mo Hypertension c/o of uncontrolled BP. Status Reason Specialty Diagnoses / Procedures Referred By Contact Referred To Contact Closed Orthopedic Surgery Diagnoses Chronic left SI joint pain Sciatica, left side Gisell Desai, CONTINUOUS IMPROVEMENT BLACK BELT [address] [place] [address] Nena Dickerson MD [address] [place] [address] Status Reason Specialty Diagnoses / Procedures Referre d By Contact Referred To Contact Closed Radiology Diagnoses Chronic left-sided low back pain without sciatica Procedures MR Lumbar Spine Without Contrast Nena Dickerson MD [address] [place] [address] Reason Comments Depression Back Pain Reason Onset Date Comments Complex Care Management 04/10/2020 Home Nee ds Reason Onset Date Comments Medication Refill 03/26/2020 Reason Onset Date Comments Medication Refill 04/16/2020 Reason Comments Follow-up s/p PCI. Medications reviewed. no refills at this time Leg Pain c/o leg cramping whi le participating in cardiac rehab. Reason Onset Date Comments Medication Refill 04/30/2020 Reason Onset Date Comments Fall Risk Screening 01/16/2020 Reason Comments Follow-up f\u lumbago-mri Pain Reason Comments Follow-up UTI completed ATB ye sterday Trigeminal Neuralgia Reason Comments Cardiac Rehab Consultation INPT Reason Onset Date Comments Medication Refill 03/23/2020 Reason Comments Medication Refill Reason Onset Date Comments Refill Request 01/18/2015 Reason Comments Follow-up 3 mon fu oseto, ckd, dm ( last a1c 5.8 on 01/16/2020) Hip Pain left hip pain Reason Comments Follow-up 6mo. pt c/o uncontro lled HTN- losartan added last OV Reason Onset Date Comments Medication Refill 09/13/2020 Reason Comments Follow-up 3 week fu htn Reason Onset Date Comments Medication Refill 01/01/2021 Reason Onset Date Comments Medication Refill 01/07/2021 Reason Onset Date Comments Medication Refill 01/11/2021 Reason Comments Follow-up 6 mo ov no complaint s today Reason Onset Date Comments Medication Refill 03/15/2021 Reason Comments Urinary Tract Infection PEEING MYSELF T O , INCONTINENCE, HURTS ACROSS PELVIS WITH URINATION-SYMPTOMS X1 WEEK Reason Onset Date Comments Medication Refill 07/01/2021 Reason Comments trigeminal neuralgia She states it has o nly been twinges. Reason Onset Date Comments Follow-up [place] pt Hip Pain Left Fall Risk Screening 10/16/2021 Reason Onset Date Comments Medication Refill 10/25/2021 Reason Comments Follow-up Overdue 6 mo-last OV 02/12/21/no cardiac concerns today Reason Comments Physical Therapy Specialty Diagnoses / Procedures Referred By Jane lugo Referred To Contact Rehabilitation Diagnoses DDD (degenerative disc disease), lumbar Carolina Clark, RAYMUNDO [address] [place] [phone] [facility] [address] [place] [address] Referral ID Status Reason Start Date Expiration Date Visits Requested Visits Authorized [id number] Authorized Specialty Services Required/Pat ient's Best Interest 11/05/2021 11/05/2022 9 199 Specialty Diagnoses / Procedures Referred By Jane lugo Referred To Contact Rehabilitation Diagnoses DDD (degenerative disc disease), lumbar Carolina Clark, CONTINUOUS IMPROVEMENT BLACK BELT [address] [place] [phone] [facility] [address] [place] [address] Reason Comments Follow-up Reason Onset Date Comments PA initiated for Myrbetric 01/01/2022 Reason Comments trigeminal neuralgia Patient states that she was taking 200mg of carbamazepine and 100mg of chewables and it was giving her a upset stomach and causing dizziness. She starte breaking the chewable in half and that seemed to help some but she is still having a lot of dizziness. States she is dizzy all the time, some mornings she will wake up dizzy. Reason Onset Date Comments Medication Refill 01/28/2022 Reason Onset Date Comments Medicare Wellness Visit Fall Risk Screening 02/11/2022 Reason Onset Date Comments Medication Refill 02/17/2022 Reason Onset Date Comments Medication Refill 03/12/2022 Reason Onset Date Comments Medication Refill 03/24/2022 Reason Onset Date Comments Medication Refill 04/02/2022 Reason Comments Transition Of Care Gap Closure (Health Maintenance) There a re no preventive care reminders to display for this patient. Reason Comments Follow-up 2 month- chronic con ditions Reason Comments Trigeminal Neuralgia Feeling great. De nies any issues. Present UTI. Reason Onset Date Comments Medication Refill 08/05/2022 Reason Comments Pain Reason Comments Follow-up Fatigue AICD Problem Dizziness Patient thinks this is medication related Leg Swelling PCP started Lasix. Reason Comments Follow-up 3 month f/u Reason Comments Suture / Staple Removal MID-RIGHT UPPER BACK AREA Reason Onset Date Comments Medication Refill 12/19/2022 Reason Onset Date Comments Medication Refill 12/22/2022 Reason Onset Date Comments Medication Refill 01/20/2023 Reason Comments Depression Anxiety Reason Onset Date Comments Medication Refill 03/05/2023 Reason Onset Date Comments Medication Refill 03/12/2023 Reason Onset Date Comments Medication Refill 03/16/2023 Reason Comments Follow-up 1 year GERD, and Gas tritis. Pt reports [facility] is having issues getting the Prilosec and is concerned with interaction between Prilosec and carbamazepine. Specialty Diagnoses / Procedures Referred By Jane lugo Referred To Contact Pain Medicine Diagnoses Trigeminal neuralgia of left side of face Closed fracture of multiple pubic rami, unspecified laterality, initial encounter ([facility]) Claudine Majano MD [address] [address] Jake Navarro DO [address] [place] [address] Referral ID Status Reason Start Date Expiration Date Visits Re quested Visits Authorized [id number] Closed 02/18/2023 02/18/2024 1 1 Reason Onset Date Comments Medication Refill 04/28/2023 Reason Onset Date Comments Medicare Wellness Visit Y Fall Risk Screening 05/11/2023 Reason Onset Date Comments Medication Refill 05/19/2023 Reason Comments Trigeminal neuralgia of left side of fac e Pt wanting second opinion. States sharp pains to left side of the face. Reason Onset Date Comments Medication Refill 06/05/2023 Reason Comments Pre-op Exam Specialty Diagnoses / Procedures Referred By Jane lugo Referred To Contact Diagnoses Dizziness Dizziness, altered mental status, gait ataxia Referral ID Status Reason Start Date Expiration Date Visits Re quested Visits Authorized [id number] 1 1 Reason Onset Date Comments Transition Of Care 07/10/2023 1st attempt Reason Comments Transition Of Care Reason Onset Date Comments Medication Refill 08/08/2023 Reason Onset Date Comments Medication Refill 09/08/2023 Reason Onset Date Comments Medication Refill 09/30/2023 Reason Comments Follow-up ER f/u Reason Onset Date Comments Medication Refill 10/16/2023 Reason Comments Follow-up Pt states that the l amotrigine helps a lot with the pain, States the baclofen makes her dizzy. She is unable to drive anymore due to the dizziness. Reason Comments Follow-up 4 month f/u-[facility] wu tsai has been taking her BP and her BP has been running low, advised her to stop taking the BP medication she takes at night. Reason Onset Date Comments Medication Refill 04/12/2024 Reason Onset Date Comments Medication Refill 05/12/2024 Reason Onset Date Comments [facility] Palliative [facility] - FOR REVIEW ONLY 05/20/19 25 Reason Comments Follow-up 2 month f/u Reason Onset Date Comments [facility] 06/01/2024 Reason Onset Date Comments [facility] 06/03/2024 Reason Comments Follow-up Patient has no cardi ac concerns Reason Onset Date Comments [facility] 06/13/2024 Reason Onset Date Comments Medication Refill 06/27/2024 Reason Onset Date Comments [facility] 07/11/2024 APPT ON 07/19/19 25 Reason Comments Medicare Wellness Visit Y Reason Comments Follow-up 3 mth med check, UDS , COMM Reason Onset Date Comments Medication Refill 09/08/2024 Reason Onset Date Comments Medication Refill 09/12/2024 Reason Comments Fall No pain Reason Onset Date Comments Medication Refill 09/28/2024 Reason Onset Date Comments Medication Refill 10/13/2024 Reason Comments Weakness, Gen Patient reports she started with N/V/weakness yesterday. States that she has also been having dysuria, recent treatment for UTI. Patient denies pain or fever. Reason Comments Weakness Specialty Diagnoses / Procedures Referred By Contac t Referred To Contact Diagnoses Dizziness Weakness generalized Cystitis Referral ID Status Reason Start Date Expiration Date Visits Re quested Visits Authorized [id number] 1 1 Glen Fair MD - 08/23/2018 8:21 AM EDTDickersonElisabet MD - 08/23/2018 7:01 AM EDT H&P Notes (unrecognized sect ion and content) INTERVAL HISTORY AND PHYSICAL Patient Name: Cat Carroll Admit Date: [id number] MR #: [id number] : 1935 The H&P has been reviewed and the patient has been examined. I concur with the findings of the H&P. There are no significant changes. It is appropriate to proceed with the planned procedure. Sedation Plan: Moderate ASA Classification: 2 - Patient with mild systemic disease Mallampati Score: II Glen Fair MD 08/23/2018 8:21 AM General Cardiology Consult [facility] Heart [facility] Vascular 08/23/2018 Elisabet Jackson MD [address] [address] Inpatient Cardiovascular Consultation Date of Service: 08/23/2018 Patient: Britton Date of : 1935 Referring Provider: Refer to consult order in electronic medical record PCP: Caitie Mclaughlin MD Primary Senior Trainer: Assessment/Plan: Britton is a 83 y.o. y.o. female with a past medical history of hypertension presenting with complaints of acute onset substernal chest pain with EKG consistent with inferior ST elevation IA Acute ST elevation myocardial infarction (STEMI) of inferior wall (HCC) Assessment & Plan Patient presented to [facility] with acute onset of substernal chest heaviness that woke her up at 4 AM. Patient describes it as a tightness. EKG at [facility] was consistent with an ST elevation IA. Patient denies any previous cardiac history. Risk benefits and alternatives of heart catheterization were reviewed. Patient is agreeable to move forward with procedure. Reviewed labs no contraindication to heart catheterization. Plan 1. Patient reportedly received loading dose of Brilinta while at [facility] 2. Heart catheterization lab activated additional recommendations to follow pending procedure. HTN (hypertension), benign Assessment & Plan Patient takes metoprolol tartrate 50 mg twice daily and losartan 50 mg daily at home. We will continue medications and titrate for blood pressure control. Blood pressure appears elevated in the ER. Subjective Reason for Consultation: ST elevation IA History of Present Illness: Patient is a pleasant 83-year-old female with a history of hypertension and GERD who presented secondary to acute onset of substernal chest discomfort at 4 AM. She states she was in her usual state of health when her chest heaviness awoke her. She subsequently went to [facility] was found to have acute ST elevation IA this was notable in the inferior leads and was subsequently transferred to [place] for additional definitive catheter based treatment. Upon interviewing the ER at [place] patient notes continued chest heaviness she denies any nausea vomiting, no lightheadedness or dizziness no syncope or presyncope. Patient denies any antecedent chest pain before early this morning. Overall she is an active independently living female. Patient denies any GI bleeding. She describes back in the 60s she was diagnosed with easy bleeding and easy bruising with procedures. Patient endorses needing blood transfusions in the past. Denies any active bleeding at the present time. Imaging: I independently reviewed the EKG and agree with the interpretation(s) with the following comments. Sinus rhythm with significant ST elevation in the inferior and lateral leads. Review of Systems Constitution: Negative. HENT: Negative. Eyes: Negative. Respiratory: Negative. Endocrine: Negative. Hematologic/Lymphatic: Bruises/bleeds easily. Skin: Negative. Musculoskeletal: Positive for arthritis. Gastrointestinal: Positive for heartburn. Negative for abdominal pain. Genitourinary: Negative for dysuria and hematuria. Neurological: Negative. Psychiatric/Behavioral: Negative. 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 Rick thompson. Dr Hinds BLADDER REPAIR 1989 CATARACT EXT/ECCE Bilateral 2011 Dr ar[place] CHOLECYSTECTOMY CYST REMOVAL Right 2000 cyst removal from rt breast-benign DILATION AND CURETTAGE (D AND C) 1970 x 2 EGD 01/01/2015 Dr. ZavalaEnicca-Hsbweanyg-Nzscteu's esophagus EGD 08/2014 Dr. Vinicius RamachandranO-Agdwqmzax-Wdbwudo's esophagitis biopsies negative for dysplasia. ESOPHAGOGASTRODUODENOSCOPY 01/04/2018 Dr. Zavala -biopsies performed-Kelly's esophagitis-carcinoid tumor posterior wall duodenum FRACTURE SURGERY Right Plates and screws in rt arm after fracture. dr Dolan HYSTERECTOMY 1975 KIDNEY SURGERY 1969 had exploratory surgery d/t floating kidney Dx KNEE SURGERY Left 1998 left knee arthoscopy LUMPECTOMY Left 1989 benign SQUAMOUS CELL CARCINOMA EXCISION x4 TOTAL KNEE ARTHROPLASTY Left 2012 dr dolan TUMOR REMOVAL 2011 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 Shefamily history includes Bipolar disorder in her daughter; Diabetes in her brother, maternal uncle, mother, sister, and son; Heart disease in her brother, father, and mother; Stroke in her father. She reports that she quit smoking about 42 years ago. Her smoking use included cigarettes. She has never used smokeless tobacco. She reports that she does not drink alcohol or use drugs. Allergies: Allergies: Aspirin; Codeine; Latex, natural rubber; Oyiabgsj-ccytcaevxws-tfnipyltf; and Hydrocortisone Aspirin causes GI upset Current Facility-Administered Medications: midazolam (VERSED) injection, , , PRN, Glen Fair MD, 1 mg at 08/23/18 0705 nalbuphine (NUBAIN) injection, , , PRN, Glen Fair MD, 1 mg at 08/23/18 0705 Objective: Physical Examination: Blood pressure 143/81, pulse 68, temperature 97.5 F (36.4 C), temperature source Oral, resp. rate 18, height 5' 4, weight 75.6 kg (166 lb 10.7 oz), SpO2 100 %, not currently . Physical Exam Constitutional: She is oriented to person, place, and time. She appears well-developed and well-nourished. HENT: Head: Normocephalic and atraumatic. Eyes: Pupils are equal, round, and reactive to light. Neck: No JVD present. Cardiovascular: Normal rate, regular rhythm and normal heart sounds. Exam reveals no gallop and no friction rub. No murmur heard. Pulses: Radial pulses are 2+ on the right side, and 2+ on the left side. Pulmonary/Chest: Effort normal and breath sounds normal. She has no wheezes. She has no rales. Abdominal: Soft. She exhibits no distension. There is no tenderness. Musculoskeletal: She exhibits no edema. Neurological: She is alert and oriented to person, place, and time. Skin: Skin is warm and dry. Psychiatric: She has a normal mood and affect. Laboratory and Additional Data Reviewed: Laboratory 08/23/18 7:06 AM Lab Results Component Value Date NA 142 08/23/2018 K 3.6 08/23/2018 CL 111 (H) 08/23/2018 BUN 21 08/23/2018 BUN 14 03/22/2018 CREATININE 1.04 08/23/2018 CREATININE 0.95 03/22/2018 GLUCOSE 128 (H) 08/23/2018 CALCIUM 8.7 08/23/2018 Lab Results Component Value Date TROPONINI 152 (CH) 08/23/2018 Lab Results Component Value Date WBC 8.04 08/23/2018 WBC 7.0 06/09/2017 HGB 13.2 08/23/2018 HGB 13.1 06/09/2017 HCT 40.4 08/23/2018 HCT 40.8 06/09/2017 MCV 91.2 08/23/2018 PLT 200 08/23/2018 PLT 224 06/09/2017 No results found for: CHOL, TRIG, HDL, LDLDIRECT Lab Results Component Value Date DDIMER 0.37 08/23/2018 No results found for: TSH, A8VBYWZ, Y7MXMBH, THYROIDAB documented in this encounter Celina Ruvalcaba RN - 08/25/2018 12:45 PM GAMATElisabet Jackson MD - 08/23/2018 7:01 AM EDT Consult Notes (unrecognized section and content) Inpatient Cardiac Rehab [facility] Patient Education I met with Cat and her son at the bedside at this time. They were very pleasant and open to the education being offered. We had a discussion around the following: Cardiac Cath Procedure, Stent, Coronary Artery Disease, Angina symptoms to identify and when to report, use of NTG, post procedure instructions and restrictions, risk factor modification, hyperlipidemia, hypertension control, stress reduction techniques, heart healthy diet, progressive activity plan, medication, post procedural antiplatelet therapy, catheterization site care, and educated on the benefit of completing outpatient cardiac rehab program. General Cardiology Consult [facility] 08/23/2018 Elisabet Jackson MD [facility] Valorie Gong [facility] [id number] Inpatient Cardiovascular Consultation Date of Service: 08/23/2018 Patient: Britton Date of : 1935 Referring Provider: Refer to consult order in electronic medical record PCP: Caitie Mclaughlin MD Primary Senior Trainer: Assessment/Plan: Britton is a 83 y.o. y.o. female with a past medical history of hypertension presenting with complaints of acute onset substernal chest pain with EKG consistent with inferior ST elevation IA Acute ST elevation myocardial infarction (STEMI) of inferior wall (HCC) Assessment & Plan Patient presented to [facility] with acute onset of substernal chest heaviness that woke her up at 4 AM. Patient describes it as a tightness. EKG at [place] was consistent with an ST elevation IA. Patient denies any previous cardiac history. Risk benefits and alternatives of heart catheterization were reviewed. Patient is agreeable to move forward with procedure. Reviewed labs no contraindication to heart catheterization. Plan 1. Patient reportedly received loading dose of Brilinta while at [facility] 2. Heart catheterization lab activated additional recommendations to follow pending procedure. HTN (hypertension), benign Assessment & Plan Patient takes metoprolol tartrate 50 mg twice daily and losartan 50 mg daily at home. We will continue medications and titrate for blood pressure control. Blood pressure appears elevated in the ER. Subjective Reason for Consultation: ST elevation IA History of Present Illness: Patient is a pleasant 83-year-old female with a history of hypertension and GERD who presented secondary to acute onset of substernal chest discomfort at 4 AM. She states she was in her usual state of health when her chest heaviness awoke her. She subsequently went to [facility] was found to have acute ST elevation IA this was notable in the inferior leads and was subsequently transferred to [place] for additional definitive catheter based treatment. Upon interviewing the ER at [place] patient notes continued chest heaviness she denies any nausea vomiting, no lightheadedness or dizziness no syncope or presyncope. Patient denies any antecedent chest pain before early this morning. Overall she is an active independently living female. Patient denies any GI bleeding. She describes back in the 60s she was diagnosed with easy bleeding and easy bruising with procedures. Patient endorses needing blood transfusions in the past. Denies any active bleeding at the present time. Imaging: I independently reviewed the EKG and agree with the interpretation(s) with the following comments. Sinus rhythm with significant ST elevation in the inferior and lateral leads. Review of Systems Constitution: Negative. HENT: Negative. Eyes: Negative. Respiratory: Negative. Endocrine: Negative. Hematologic/Lymphatic: Bruises/bleeds easily. Skin: Negative. Musculoskeletal: Positive for arthritis. Gastrointestinal: Positive for heartburn. Negative for abdominal pain. Genitourinary: Negative for dysuria and hematuria. Neurological: Negative. Psychiatric/Behavioral: Negative. 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 Rick thompson. Dr Hinds BLADDER REPAIR 1989 CATARACT EXT/ECCE Bilateral 2011 Dr [place] CHOLECYSTECTOMY CYST REMOVAL Right 1999 cyst removal from rt breast-benign DILATION AND CURETTAGE (D AND C) 1970 x 2 EGD 01/01/2015 Dr. ZavalaRpvjpa-Npqwmsyty-Smoysrp's esophagus EGD 08/2014 Dr. Vinicius Pruett-Barrett's esophagitis biopsies negative for dysplasia. ESOPHAGOGASTRODUODENOSCOPY 01/04/2018 Dr. Zavala -biopsies performed-Kelly's esophagitis-carcinoid tumor posterior wall duodenum FRACTURE SURGERY Right Plates and screws in rt arm after fracture. dr Dolan HYSTERECTOMY 1975 KIDNEY SURGERY 1969 had exploratory surgery d/t floating kidney Dx KNEE SURGERY Left 1998 left knee arthoscopy LUMPECTOMY Left 1989 benign SQUAMOUS CELL CARCINOMA EXCISION x4 TOTAL KNEE ARTHROPLASTY Left 2012 dr dolan TUMOR REMOVAL 2012 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 Shefamily history includes Bipolar disorder in her daughter; Diabetes in her brother, maternal uncle, mother, sister, and son; Heart disease in her brother, father, and mother; Stroke in her father. She reports that she quit smoking about 42 years ago. Her smoking use included cigarettes. She has never used smokeless tobacco. She reports that she does not drink alcohol or use drugs. Allergies: Allergies: Aspirin; Codeine; Latex, natural rubber; Cwhifgsv-hkxtrafkhva-vuvkenzcy; and Hydrocortisone Aspirin causes GI upset Current Facility-Administered Medications: midazolam (VERSED) injection, , , PRN, Glen Fair MD, 1 mg at 08/23/18 0705 nalbuphine (NUBAIN) injection, , , PRN, Glen Fair MD, 1 mg at 08/23/18 0705 Objective: Physical Examination: Blood pressure 143/81, pulse 68, temperature 97.5 F (36.4 C), temperature source Oral, resp. rate 18, height 5' 4, weight 75.6 kg (166 lb 10.7 oz), SpO2 100 %, not currently . Physical Exam Constitutional: She is oriented to person, place, and time. She appears well-developed and well-nourished. HENT: Head: Normocephalic and atraumatic. Eyes: Pupils are equal, round, and reactive to light. Neck: No JVD present. Cardiovascular: Normal rate, regular rhythm and normal heart sounds. Exam reveals no gallop and no friction rub. No murmur heard. Pulses: Radial pulses are 2+ on the right side, and 2+ on the left side. Pulmonary/Chest: Effort normal and breath sounds normal. She has no wheezes. She has no rales. Abdominal: Soft. She exhibits no distension. There is no tenderness. Musculoskeletal: She exhibits no edema. Neurological: She is alert and oriented to person, place, and time. Skin: Skin is warm and dry. Psychiatric: She has a normal mood and affect. Laboratory and Additional Data Reviewed: Laboratory 08/23/18 7:06 AM Lab Results Component Value Date NA 142 08/23/2018 K 3.6 08/23/2018 CL 111 (H) 08/23/2018 BUN 21 08/23/2018 BUN 14 03/22/2018 CREATININE 1.04 08/23/2018 CREATININE 0.95 03/22/2018 GLUCOSE 128 (H) 08/23/2018 CALCIUM 8.7 08/23/2018 Lab Results Component Value Date TROPONINI 152 (CH) 08/23/2018 Lab Results Component Value Date WBC 8.04 08/23/2018 WBC 7.0 06/09/2017 HGB 13.2 08/23/2018 HGB 13.1 06/09/2017 HCT 40.4 08/23/2018 HCT 40.8 06/09/2017 MCV 91.2 08/23/2018 PLT 200 08/23/2018 PLT 224 06/09/2017 No results found for: CHOL, TRIG, HDL, LDLDIRECT Lab Results Component Value Date DDIMER 0.37 08/23/2018 No results found for: TSH, V9UJGVH, I4PHUPI, THYROIDAB documented in this encounter Vanessa England RN - 08/23/2018 11:58 AM Cherie Campbell RN - 08/23/2018 6:51 AM Cherie Campbell RN - 08/23/2018 6:50 AM Cherie Campbell RN - 08/23/2018 6:42 AM EDT ED Notes (unrecognized secti on and content) IN PATIENTS CHART TO AUDIT CARDIAC ALERT CRITERIA Pt to labor relations manager with this nurse and MISSY Gonzalez Critical lab: troponin = 152. Dr Rivers made aware Dr Manjula motley Dr Manuel motley with patient central lab technician called in by Dr. Jackson at [phone] per baljit lacquer pin press operator. Pt awaiting Senior Trainer. Pt presents with CP that started around 4am this morning. Pt reports pain 10/10 Senior Trainer coming in per Dr. Rivers ED PROVIDER NOTE [facility] EMERGENCY [facility] NAME: Cat Carroll AGE: 83 y.o. : 1935 VISIT DATE: 08/23/2018 CSN: [id number] PCP: Caitie Mclaughlin MD Chief Complaint Patient presents with STEMI Alert This is a 83-year-old female with history of anemia of unknown cause according to the patient who denies any other significant past medical history brought into the emergency room by the paramedics from [place] for acute chest pain. Patient woke up around 4:30 AM this morning having severe pain across chest associated with nauseous feeling. EKG obtained by the paramedics is consistent with significant ST elevation across inferior leads consistent with inferior STEMI. Repeat EKG obtained on arrival in this emergency room reveals large ST elevations across inferior leads extending into anterior lateral leads V3 and V4 as well as into V5 and V6. There are reciprocal changes involving lateral lead I and AV L as well as V2. Patient states the pain is 8 out of 0-10 pain scale right now and she feels short of breath. He says she is allergic to aspirin. However, patient received Brilinta full dose by the paramedics. On arrival patient receiving heparin 5000 units bolus per protocol. Dr. Jackson, general hardware salesperson validation intern notified before patient arrived and again when patient came in and second EKG was obtained. 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 prior biopsies no dysplasia last biopsies 08/2014 Benign carcinoid tumor of the duodenum 2014 Cancer (HCC) skin cancer-squamous cells removed Chronic kidney disease (CKD), stage III (moderate) (HCC) 09/12/2016 EGFR 43 Diabetes mellitus (HCC) 2004 patient denies Fibromyalgia Floating kidney GERD (gastroesophageal reflux disease) 2009 Hypertension 2000 Macular degeneration 2017 Osteoporosis 2010 Trigeminal neuralgia of left side of face 2004 Vertigo Vitamin D deficiency 2016 Past Surgical History: Procedure Laterality Date BACK SURGERY 2014 fusion and rods placed in lower back. Rick thompson. Dr Hinds BLADDER REPAIR 1989 CATARACT EXT/ECCE Bilateral 2011 Dr [place] CHOLECYSTECTOMY CYST REMOVAL Right 2000 cyst removal from rt breast-benign DILATION AND CURETTAGE (D AND C) 1970 x 2 EGD 01/01/2015 Dr. ZavalaKqtjtt-Njhljdkfz-Uprvwyv's esophagus EGD 08/2014 Dr. Vinicius RamachandranG-Ldyymmhit-Nighzkh's esophagitis biopsies negative for dysplasia. ESOPHAGOGASTRODUODENOSCOPY 01/04/2018 Dr. Zavala -biopsies performed-Kelly's esophagitis-carcinoid tumor posterior wall duodenum FRACTURE SURGERY Right Plates and screws in rt arm after fracture. dr Dolan HYSTERECTOMY 1975 KIDNEY SURGERY 1969 had exploratory surgery d/t floating kidney Dx KNEE SURGERY Left 1998 left knee arthoscopy LUMPECTOMY Left 1989 benign SQUAMOUS CELL CARCINOMA EXCISION x4 TOTAL KNEE ARTHROPLASTY Left 2012 dr dolan TUMOR REMOVAL 2011 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 Family History Problem Relation Age of Onset Diabetes Mother Heart disease Mother Heart disease Father Stroke Father Diabetes Sister Heart disease Brother Diabetes Brother Diabetes Maternal Uncle Bipolar disorder Daughter Diabetes Son Social History Socioeconomic History Marital status: Spouse name: Not on file Number of children: 2 Years of education: 12 Highest education level: Not on file Occupational History Not on file Social Needs Financial resource strain: Not on file Food insecurity: Worry: Not on file Inability: Not on file Transportation needs: Medical: Not on file Non-medical: Not on file Tobacco Use Smoking status: Former Smoker Types: Cigarettes Last attempt to quit: 04/03/1976 Years since quittin.4 Smokeless tobacco: Never Used Substance and Sexual Activity Alcohol use: No Drug use: No Sexual activity: Never Lifestyle Physical activity: Days per week: Not on file Minutes per session: Not on file Stress: Not on file Relationships Social connections: Talks on phone: Not on file Gets together: Not on file Attends caodaism service: Not on file Active member of club or organization: Not on file Attends meetings of clubs or organizations: Not on file Relationship status: Not on file Other Topics Concern Not on file Social History Narrative Not on file Previous Medications Medication Sig cholestyramine (QUESTRAN) 4 gram packet Take 1 (one) packet by mouth daily with breakfast Hour prior or hour post . ergocalciferol (ERGOCALCIFEROL) 50,000 unit capsule Take 1 (one) capsule (50,000 Units total) by mouth every 14 (fourteen) days . fluticasone propionate (FLOVENT HFA) 110 mcg/actuation inhaler Inhale 2 (two) puffs 2 (two) times a day Rinse mouth after each use . losartan (COZAAR) 50 MG tablet Take 1 (one) tablet (50 mg total) by mouth daily. metoprolol tartrate (LOPRESSOR) 100 MG tablet TAKE ONE-HALF (1/2) TABLET TWICE A DAY MULTIVIT-MIN/IRON/FOLIC/LUTEIN (CENTRUM SILVER WOMEN ORAL) Take 1 tablet by mouth daily. omeprazole (PRILOSEC) 40 MG capsule Take 1 (one) capsule (40 mg total) by mouth daily . topiramate (TOPAMAX) 50 MG tablet Take 2 tablets in the morning , 1 In the evening . [DISCONTINUED] cephALEXin (KEFLEX) 250 MG capsule Take 1 (one) capsule (250 mg total) by mouth daily . Allergies Allergen Reactions Aspirin Codeine Unknown Latex, Natural Rubber Unknown Nygoazue-Hvmybhrkjmx-Mhqrviwdy Hydrocortisone Rash Review of Systems Respiratory: Positive for shortness of breath. Cardiovascular: Positive for chest pain. Negative for palpitations and leg swelling. All other systems reviewed and are negative. Patient Vitals for the past 24 hrs: BP Temp Temp src Pulse Resp SpO2 Height Weight 08/23/18 0644 68 08/23/18 0641 143/81 08/23/18 0641 143/81 67 18 100 % 08/23/18 0639 65 08/23/18 0634 60 08/23/18 0631 (!) 140/94 62 (!) 20 100 % 08/23/18 0629 69 08/23/18 0624 61 08/23/18 0621 143/79 08/23/18 0621 143/79 63 (!) 20 100 % 08/23/18 0619 64 08/23/18 0614 (!) 150/71 65 (!) 20 100 % 08/23/18 0614 65 08/23/18 0611 (!) 150/71 08/23/18 0609 (!) 163/76 66 99 % 08/23/18 0605 98 % 08/23/18 0604 (!) 150/116 67 08/23/18 0604 (!) 150/116 08/23/18 0604 18 08/23/18 0604 67 08/23/18 0604 97.5 F (36.4 C) Oral 5' 4 75.6 kg (166 lb 10.7 oz) Physical Exam Constitutional: She is oriented to person, place, and time. She appears well-developed and well-nourished. She appears distressed. HENT: Head: Normocephalic and atraumatic. Eyes: EOM are normal. Pupils are equal, round, and reactive to light. Neck: Normal range of motion. Neck supple. Cardiovascular: Normal rate, regular rhythm, normal heart sounds and intact distal pulses. Exam reveals no gallop and no friction rub. No murmur heard. Pulmonary/Chest: Effort normal and breath sounds normal. No respiratory distress. She has no wheezes. She has no rales. She exhibits no tenderness. Abdominal: Soft. Bowel sounds are normal. She exhibits no distension and no mass. There is no tenderness. There is no rebound and no guarding. No hernia. Musculoskeletal: Normal range of motion. She exhibits no edema or deformity. Neurological: She is oriented to person, place, and time. Skin: She is not diaphoretic. Laboratory & Radiographic Imaging (if done): Results for orders placed or performed during the hospital encounter of 08/23/18 Comprehensive Metabolic Panel Result Value Ref Range Sodium 142 135 - 145 mmol/L Potassium 3.6 3.5 - 5.1 mmol/L Chloride 111 (H) 98 - 108 mmol/L Bicarbonate 23 21 - 32 mmol/L Anion Gap 12 10 - 20 mmol/L Glucose 128 (H) 65 - 99 mg/dL BUN 21 8 - 25 mg/dL Creatinine 1.04 0.60 - 1.20 mg/dL eGFR 50 (L) >=60 mL/min/1.73 m2 BUN/Creatinine Ratio 20.2 (H) 10.0 - 20.0 Total Protein 6.8 6.0 - 8.0 g/dL Albumin 3.4 3.2 - 5.2 g/dL Calcium 8.7 8.4 - 10.2 mg/dL Alkaline Phosphatase 122 40 - 150 U/L AST 17 0 - 45 U/L Total Bilirubin 0.3 0.0 - 1.3 mg/dL ALT 20 14 - 65 U/L Lipase Result Value Ref Range Lipase 105 73 - 393 U/L Magnesium Level Result Value Ref Range Magnesium 2.1 1.6 - 2.4 mg/dL Troponin x 2 (Now and Repeat in 3 hours) Result Value Ref Range Troponin I 152 (CH) <=45 ng/L Troponin I Interpretation Possible acute cardiac injury. NT Pro BNP Result Value Ref Range NT-Pro BNP 58 0 - 300 pg/mL D-Dimer, Quantitative Result Value Ref Range D-Dimer 0.37 0.27 - 0.49 mcg/mL FEU APTT Result Value Ref Range APTT 24 23 - 34 seconds PT/INR Result Value Ref Range Protime (PT) 13.2 11.8 - 14.3 seconds INR 1.0 0.8 - 1.1 CBC Auto Differential Result Value Ref Range WBC 8.04 4.50 - 11.00 K/mcL RBC 4.43 4.00 - 5.20 M/mcL Hemoglobin 13.2 12.0 - 16.0 g/dL Hematocrit 40.4 36.0 - 46.0 % MCV 91.2 80.0 - 100.0 fL MCH 29.8 26.0 - 34.0 pg MCHC 32.7 31.0 - 37.0 g/dL Platelets 200 150 - 400 K/mcL RDW - CV 13.2 11.6 - 14.8 % MPV 10.4 9.0 - 15.5 fL Neutrophils 32.2 % Lymphocytes 58.8 % Monocytes 7.5 % Eosinophils 0.9 % Basophils 0.4 % IG Percent 0.20 % Neutrophils Abs 2.59 1.70 - 7.00 K/mcL Lymphocytes Abs 4.73 (H) 0.90 - 4.00 K/mcL Monocytes Abs 0.60 0.30 - 0.90 K/mcL Eosinophils Abs 0.07 0.00 - 0.50 K/mcL Basophils Abs 0.03 0.00 - 0.30 K/mcL IG Absolute 0.02 0.00 - 0.30 K/mcL Nucleated RBC 0.0 % Nucleated RBC Abs 0.00 0.00 - 0.00 K/mcL XR Chest 1 View Final Result No acute cardiopulmonary process. Workstation ID: [id number] Procedures MDM Number of Diagnoses or Management Options Acute ST elevation myocardial infarction (STEMI) of inferolateral wall (HCC): Diagnosis management comments: Patient presents with acute severe persistent chest pain which she woke up at 4:30 AM. EKG obtained by the paramedics and repeated in the emergency room is confirming acute inferolateral STEMI. He received Brilinta in route to the emergency room but she is allergic to aspirin. She received heparin IV bolus per protocol, 5000units a consultation with general hardware salesperson on-call, Dr. Jackson who confirmed that patient will be taken to the Svp Chief Marketing Officer. EKG finding and plan to take the patient to the S[facility] Chief Marketing Officer was discussed with the patient and she is agreeable to the plan of care. Basic labs and chest x-ray results are currently pending. Patient's vitals are stable with systolic blood pressure 150 and diastolic blood pressure of 116. Oxygen saturation is well within normal limits. Even though STEMI was called before patient arrived in the emergency room patient remained in the emergency room in 50minutes as the treating team has not arrived to take the patient to Svp Chief Marketing Officer. A critical care time of approximately 10 minutes was spent in this patient excluding any separately billable procedure time. . Clinical Impression: SNOMED CT(R) 1. Acute ST elevation myocardial infarction (STEMI) of inferolateral wall (HCC) ACUTE ST SEGMENT ELEVATION MYOCARDIAL INFARCTION OF INFEROLATERAL WALL ED Disposition ED Disposition Condition Comment Hospitalize Phone call required?: No Follow-up Information Follow-up information has not been specified. Contact information for after-discharge care Follow-up information has not been specified. Discontinued Medications Disp Refills Start End cephALEXin (KEFLEX) 250 MG capsule 90 capsule 1 07/13/2018 08/23/2018 Sig: Take 1 (one) capsule (250 mg total) by mouth daily . Route: Oral Reason for Discontinue: Error Dell Rivers MD 08/23/18 0633 Dell Rivers MD 08/23/18 0634 Dell Rivers MD 08/23/18 0641 Dell Rivers MD 08/23/18 0651 Pt on Lifepak pads per MISSY [facility] Labs obtained by MISSY Whitehead EKG completed by Jermain PAIGE. Pt clothes removed. EMS gave 180 Brilinta. Pt allergy to ASA, Inferior IA so no nitro given by EMS Dr Silvestre motley upon pt arrival [place] notified about cardiac alert Cardiac alert paged overhead documented in this encounter Source Comments (unrecognize d section and content) In the event this informatio n is protected by the Federal Confidentiality of Alcohol and Drug Abuse Patient Records regulations: The Federal rules restrict any use of the information to criminally investigate or prosecute any alcohol or drug abuse patient.[facility] [place] Care Teams (unrecognized sec tion and content) Rental Sales Representative Relationship Specialty Start Date End Date Gisell Desai CNP PCP - General Nurse Practitioner 01/16/20 Gisell Desai CNP [address] [place] [address] PCP - CMS Attributed Provider 4/1/21 Marck Peng, DO Otolaryngology (ENT) 03/26/17 Rental Sales Representative Relationship Specialty Start Date End Date Gisell Desai CNP PCP - General Nurse Practitioner 01/16/20 Gisell Desai, CONTINUOUS IMPROVEMENT BLACK BELT [address] [phone] PCP - CMS Attributed Provider 06/07/20 Marck Peng, DO Otolaryngology (ENT) 03/26/17 Rental Sales Representative Relationship Specialty Start Date End Date Gisell Desai CONTINUOUS [employer]OVEMENT [employer]T PCP - General Nurse Practitioner 01/16/20 Gisell Desai, CONTINUOUS IMPROVEMENT BLACK [employer]T [address] [phone] PCP - CMS Attributed Provider 06/07/20 Marck Peng, DO Otolaryngology (ENT) 03/26/17 Rental Sales Representative Relationship Specialty Start Date End Date Gisell Desai CONTINUOUS IM[employer]OVEMENT [employer]T PCP - General Nurse Practitioner 01/16/20 Gisell Desai, CONTINUOUS IMPROVEMENT BLACK [employer]T [address] [address] PCP - CMS Attributed Provider 06/07/20 Marck Peng, DO Otolaryngology (ENT) 03/26/17 Rental Sales Representative Relationship Specialty Start Date End Date Gisell Desai CONTINUOUS IM[employer]OVEMENT [employer]T PCP - General Nurse Practitioner 01/16/20 Gisell Desai, CONTINUOUS IMPROVEMENT BLACK [employer]T [address] [address] PCP - CMS Attributed Provider 06/07/20 Marck Peng, DO Otolaryngology (ENT) 03/26/17 Rental Sales Representative Relationship Specialty Start Date End Date SpringGisell CONTINUOUS IMPROVEMENT BLACK BELT PCP - General Nurse Practitioner 01/16/20 Gisell Desai, CONTINUOUS IMPROVEMENT BLACK BELT [address] [address] PCP - CMS Attributed Provider 06/07/20 Marck Peng, DO Otolaryngology (ENT) 03/26/17 Rental Sales Representative Relationship Specialty Start Date End Date SpringGisell CONTINUOUS IMPROVEMENT BLACK [employer]T PCP - General Nurse Practitioner 01/16/20 Gisell Desai, CONTINUOUS IMPROVEMENT BLACK BELT [address] [address] PCP - CMS Attributed Provider 06/07/20 Marck Peng, DO Otolaryngology (ENT) 03/26/17 Rental Sales Representative Relationship Specialty Start Date End Date Gisell Desai CONTINUOUS IMPROVEMENT BL[employer]T PCP - General Nurse Practitioner 01/16/20 Marck Peng, DO Otolaryngology (ENT) 03/26/17 Rental Sales Representative Relationship Specialty Start Date End Date Claudine Majano MD [address] [address] PCP - General Family Medicine 07/01/21 Marck Peng, DO [address] [place] [address] Otolaryngology (ENT) 03/26/17 Rental Sales Representative Relationship Specialty Start Date End Date Claudine Majano MD [address] [address] PCP - General Family Medicine 07/01/21 Marck Peng, DO [address] [place] [address] Otolaryngology (ENT) 03/26/17 Rental Sales Representative Relationship Specialty Start Date End Date Claudine Majano MD [address] [address] PCP - General Family Medicine 07/01/21 Marck Peng, DO [address] [place] [address] Otolaryngology (ENT) 03/26/17 Rental Sales Representative Relationship Specialty Start Date End Date Claudine Majano MD [address] [address] PCP - General Family Medicine 07/01/21 Marck Peng, DO [address] [place] [address] Otolaryngology (ENT) 03/26/17 Rental Sales Representative Relationship Specialty Start Date End Date Claudine Majano MD [address] [address] PCP - General Family Medicine 07/01/21 Marck Peng, DO [address] [place] [address] Otolaryngology (ENT) 03/26/17 Rental Sales Representative Relationship Specialty Start Date End Date Claudine Majano MD [address] [address] PCP - General Family Medicine 07/01/21 Marck Peng, DO [address] [place] [address] Otolaryngology (ENT) 03/26/17 Rental Sales Representative Relationship Specialty Start Date End Date Claudine Majano MD [address] [address] PCP - General Family Medicine 07/01/21 Marck Peng, DO [address] [place] [address] Otolaryngology (ENT) 03/26/17 Rental Sales Representative Relationship Specialty Start Date End Date Claudine Majano MD [address] [address] PCP - General Family Medicine 07/01/21 Marck Peng, [address] [place] [address] Otolaryngology (ENT) 03/26/17 Rental Sales Representative Relationship Specialty Start Date End Date Claudine Majano MD [address] [address] PCP - General Family Medicine 07/01/21 Marck Peng, DO [address] [place] [address] Otolaryngology (ENT) 03/26/17 Rental Sales Representative Relationship Specialty Start Date End Date Claudine Majano MD [address] [address] PCP - General Family Medicine 07/01/21 Marck Peng, DO [address] [place] [address] Otolaryngology (ENT) 03/26/17 Rental Sales Representative Relationship Specialty Start Date End Date Claudine Mjaano MD [address] [address] PCP - General Family Medicine 07/01/21 Marck Peng, DO [address] [place] [address] Otolaryngology (ENT) 03/26/17 Rental Sales Representative Relationship Specialty Start Date End Date Claudine Majano MD [address] [address] PCP - General Family Medicine 07/01/21 Marck Peng, DO [address] [place] [address] Otolaryngology (ENT) 03/26/17 Rental Sales Representative Relationship Specialty Start Date End Date Claudine Majano MD [address] [address] PCP - General Family Medicine 07/01/21 Marck Peng, DO [address] [place] [address] Otolaryngology (ENT) 03/26/17 Rental Sales Representative Relationship Specialty Start Date End Date Claudine Majano MD [address] [address] PCP - General Family Medicine 07/01/21 Marck Peng, DO [address] [place] [address] Otolaryngology (ENT) 03/26/17 Rental Sales Representative Relationship Specialty Start Date End Date Claudine Majano MD [address] [address] PCP - General Family Medicine 07/01/21 Marck Peng, DO [address] [place] [address] Otolaryngology (ENT) 03/26/17 Rental Sales Representative Relationship Specialty Start Date End Date Claudine Majano MD [address] [address] PCP - General Family Medicine 07/01/21 Marck Peng, DO [address] [place] [address] Otolaryngology (ENT) 03/26/17 Rental Sales Representative Relationship Specialty Start Date End Date Claudine Majano MD [address] [address] PCP - General Family Medicine 07/01/21 Marck Peng, DO [address] [place] [address] Otolaryngology (ENT) 03/26/17 Rental Sales Representative Relationship Specialty Start Date End Date Claudine Majano MD [address] [address] PCP - General Family Medicine 07/01/21 Marck Peng DO [address] [place] [address] Otolaryngology (ENT) 03/26/17 Rental Sales Representative Relationship Specialty Start Date End Date Claudine Majano MD [address] [address] PCP - General Family Medicine 07/01/21 Marck Peng DO [address] [place] [address] Otolaryngology (ENT) 03/26/17 Rental Sales Representative Relationship Specialty Start Date End Date Claudine Majano MD [address] [address] PCP - General Family Medicine 07/01/21 Marck Peng DO [address] [place] [address] Otolaryngology (ENT) 03/26/17 Rental Sales Representative Relationship Specialty Start Date End Date Claudine Majano MD [address] [address] PCP - General Family Medicine 07/01/21 Marck Peng DO [address] [place] [address] Otolaryngology (ENT) 03/26/17 Rental Sales Representative Relationship Specialty Start Date End Date Claudine Majano MD [address] [address] PCP - General Family Medicine 07/01/21 Marck Peng DO [address] [place] [address] Otolaryngology (ENT) 03/26/17 Team Status: Active Member Role Status Dates Dr. Crissy Encarnacion MD Family Provider Active CLAUDINE MAJANO MD Primary Care Provider Active Team Status: Inactive Member Role Status Dates Dr. Shantel Rasmussen MD Attending Provider, Referring Akhil avilez Active CLAUDINE MAJANO MD Primary Care Provider Active Rental Sales Representative Relationship Specialty Start Date End Date Claudine Majano MD [address] [phone] PCP - General Family Medicine 07/01/21 Marck Peng DO [address] [phone] Otolaryngology (ENT) 03/26/17 Rental Sales Representative Relationship Specialty Start Date End Date Claudine Majano MD [address] [address] PCP - General Family Medicine 07/01/21 Marck Peng DO [address] [place] [address] Otolaryngology (ENT) 03/26/17 Rental Sales Representative Relationship Specialty Start Date End Date Claudine Majano MD [address] [address] PCP - General Family Medicine 07/01/21 Marck Peng DO [address] [place] [address] Otolaryngology (ENT) 03/26/17 Rental Sales Representative Relationship Specialty Start Date End Date Claudine Majano MD [address] [address] PCP - General Family Medicine 07/01/21 Marck Peng DO [address] [place] [address] Otolaryngology (ENT) 03/26/17 Rental Sales Representative Relationship Specialty Start Date End Date Claudine Majano MD [address] [address] PCP - General Family Medicine 07/01/21 Marck Peng Jr., [address] [place] [address] Otolaryngology (ENT) 03/26/17 Rental Sales Representative Relationship Specialty Start Date End Date Claudine Majano MD [address] [address] PCP - General Family Medicine 07/01/21 Marck Peng Jr., [address] [place] [address] Otolaryngology (ENT) 03/26/17 Rental Sales Representative Relationship Specialty Start Date End Date Claudine Majano MD [address] [address] PCP - General Family Medicine 07/01/21 Marck Peng Jr., DO [address] [place] [address] Otolaryngology (ENT) 03/26/17 Rental Sales Representative Relationship Specialty Start Date End Date Claudine Majano MD [facility] [address] [address] PCP - General Family Medicine 07/01/21 Marck Peng Jr., DO [address] [place] [address] Otolaryngology (ENT) 03/26/17 Rental Sales Representative Relationship Specialty Start Date End Date Claudine Majano MD [address] [address] PCP - General Family Medicine 07/01/21 Marck Pneg Jr., DO [address] [place] [address] Otolaryngology (ENT) 03/26/17 Rental Sales Representative Relationship Specialty Start Date End Date Claudine Majano MD [address] [address] PCP - General Family Medicine 07/01/21 Marck Peng Jr., DO [address] [place] [address] Otolaryngology (ENT) 03/26/17 Rental Sales Representative Relationship Specialty Start Date End Date Claudine Majano MD [address] [address] PCP - General Family Medicine 07/01/21 Marck Peng Jr., DO [address] [place] [address] Otolaryngology (ENT) 03/26/17 Rental Sales Representative Relationship Specialty Start Date End Date Claudine Majano MD [address] [address] PCP - General Family Medicine 07/01/21 Marck Peng Jr., DO [address] [place] [address] Otolaryngology (ENT) 03/26/17 Rental Sales Representative Relationship Specialty Start Date End Date Claudine Majano MD [address] [address] PCP - General Family Medicine 07/01/21 Marck Peng Jr., DO [address] [place] [address] Otolaryngology (ENT) 03/26/17 Rental Sales Representative Relationship Specialty Start Date End Date Claudine Majano MD [address] [address] PCP - General Family Medicine 07/01/21 Marck Peng Jr., DO [address] [place] [address] Otolaryngology (ENT) 03/26/17 Rental Sales Representative Relationship Specialty Start Date End Date Claudine Majano MD [address] [address] PCP - General Family Medicine 07/01/21 Marck Peng Jr., DO [address] [place] [address] Otolaryngology (ENT) 03/26/17 Rental Sales Representative Relationship Specialty Start Date End Date Claudine Majano MD [address] [address] PCP - General Family Medicine 07/01/21 Marck Peng Jr., DO [address] [place] [address] Otolaryngology (ENT) 03/26/17 Rental Sales Representative Relationship Specialty Start Date End Date Claudine Majano MD [address] [address] PCP - General Family Medicine 07/01/21 Marck Peng Jr., DO [address] [place] [address] Otolaryngology (ENT) 03/26/17 Candi Bateman, hack saw operatorCash Applications Clerk 03/16/2303/16 Rental Sales Representative Relationship Specialty Start Date End Date Claudine Majano MD [address] [place] [address] PCP - General Family Medicine 07/01/21 Marck Peng Jr., DO [address] [place] [address] Otolaryngology (ENT) 03/26/17 Candi Bateman, hack saw operatorCash Applications Clerk 03/16/2303/16 Rental Sales Representative Relationship Specialty Start Date End Date Gisell Castillo APRN-CONTINUOUS IMPROVEMENT BLACK [employer]T [address] [place] [address] PCP - General 03/25/20 Rental Sales Representative Relationship Specialty Start Date End Date Claudine Majano MD [address] [place], [place] [phone] PCP - General Family Medicine 07/01/21 [place] [address] [place] [address] Otolaryngology (ENT) 03/26/17 Rental Sales Representative Relationship Specialty Start Date End Date Claudine Majano MD [address] [place] [address] PCP - General Family Medicine 07/01/21 Marck Peng Jr., DO [address] [place] [address] Otolaryngology (ENT) 03/26/17 Rental Sales Representative Relationship Specialty Start Date End Date Claudine Majano MD [address] [address] PCP - General Family Medicine 07/01/21 Marck Peng Jr., DO [address] [place] [address] Otolaryngology (ENT) 03/26/17 Rental Sales Representative Relationship Specialty Start Date End Date Claudine Majano MD [address] [address] PCP - General Family Medicine 07/01/21 Marck Peng Jr., DO [address] [place] [address] Otolaryngology (ENT) 03/26/17 Rental Sales Representative Relationship Specialty Start Date End Date Claudine Majano MD [address] [address] PCP - General Family Medicine 07/01/21 Marck Peng Jr., DO [address] [place] [address] Otolaryngology (ENT) 03/26/17 Rental Sales Representative Relationship Specialty Start Date End Date Claudine Majano MD [address] [address] PCP - General Family Medicine 07/01/21 Marck Peng Jr., DO [address] [place] [address] Otolaryngology (ENT) 03/26/17 Rental Sales Representative Relationship Specialty Start Date End Date Claudine Majano MD [address] [address] PCP - General Family Medicine 07/01/21 Marck Peng Jr., DO [address] [place] [address] Otolaryngology (ENT) 03/26/17 Rental Sales Representative Relationship Specialty Start Date End Date Claudine Majano MD [address] [address] PCP - General Family Medicine 07/01/21 Marck Peng Jr., DO [address] [place] [address] Otolaryngology (ENT) 03/26/17 Rental Sales Representative Relationship Specialty Start Date End Date Claudine Majano MD [address] [address] PCP - General Family Medicine 07/01/21 Marck Peng Jr., DO [address] [place] [address] Otolaryngology (ENT) 03/26/17 Rental Sales Representative Relationship Specialty Start Date End Date Claudine Majano MD [address] [address] PCP - General Family Medicine 07/01/21 Marck Peng Jr., DO [address] [place] [address] Otolaryngology (ENT) 03/26/17 Rental Sales Representative Relationship Specialty Start Date End Date Claudine Majano MD [address] [address] PCP - General Family Medicine 07/01/21 Marck Pneg Jr., DO [address] [place] [address] Otolaryngology (ENT) 03/26/17 Rental Sales Representative Relationship Specialty Start Date End Date Claudine Majano MD [address] [address] PCP - General Family Medicine 07/01/21 Marck Peng Jr., DO [address] [place] [address] Otolaryngology (ENT) 03/26/17 Rental Sales Representative Relationship Specialty Start Date End Date Claudine Majano MD [address] [address] PCP - General Family Medicine 07/01/21 Marck Peng Jr., DO [address] [place] [address] Otolaryngology (ENT) 03/26/17 Rental Sales Representative Relationship Specialty Start Date End Date Claudine Majano MD [address] [address] PCP - General Family Medicine 07/01/21 Marck Peng Jr., DO [address] [place] [address] Otolaryngology (ENT) 03/26/17 Rental Sales Representative Relationship Specialty Start Date End Date Claudine Majano MD [address] [address] PCP - General Family Medicine 07/01/21 Marck Peng Jr., DO [address] [place] [address] Otolaryngology (ENT) 03/26/17 Rental Sales Representative Relationship Specialty Start Date End Date Claudine Majano MD [address] [address] PCP - General Family Medicine 07/01/21 Marck Peng Jr., DO [address] [place] [address] Otolaryngology (ENT) 03/26/17 Maribell Cabrera, hack saw operatorCash Applications Clerk 07/10/23 07/10/23 Rental Sales Representative Relationship Specialty Start Date End Date Claudine Majano MD [address] [address] PCP - General Family Medicine 07/01/21 Marck Peng Jr., DO [address] [place] [address] Otolaryngology (ENT) 03/26/17 Maribell Cabrera, hack saw operatorCash Applications Clerk 07/10/23 07/10/23 Rental Sales Representative Relationship Specialty Start Date End Date Claudine Majano MD [address] [address] PCP - General Family Medicine 07/01/21 Marck Peng Jr., [address] [place] [address] Otolaryngology (ENT) 03/26/17 Maribell Cabrera, hack saw operatorCash Applications Clerk 07/10/23 07/10/23 Rental Sales Representative Relationship Specialty Start Date End Date Claudine Majano MD [address] [address] PCP - General Family Medicine 07/01/21 Marck Peng Jr., [address] [place] [address] Otolaryngology (ENT) 03/26/17 Rental Sales Representative Relationship Specialty Start Date End Date lCaudine Majano MD [address] [address] PCP - General Family Medicine 07/01/21 Marck Peng Jr., DO [address] [place] [address] Otolaryngology (ENT) 03/26/17 Rental Sales Representative Relationship Specialty Start Date End Date Claudine Majano MD [address] [address] PCP - General Family Medicine 07/01/21 Marck Peng Jr., DO [address] [place] [address] Otolaryngology (ENT) 03/26/17 Rental Sales Representative Relationship Specialty Start Date End Date Claudine Majano MD [address] [address] PCP - General Family Medicine 07/01/21 Marck Peng Jr., DO [address] [place] [address] Otolaryngology (ENT) 03/26/17 Rental Sales Representative Relationship Specialty Start Date End Date Claudine Majano MD [address] [address] PCP - General Family Medicine 07/01/21 Marck Peng Jr., DO [address] [place] [address] Otolaryngology (ENT) 03/26/17 Rental Sales Representative Relationship Specialty Start Date End Date Claudine Majano MD [address] [address] PCP - General Family Medicine 07/01/21 Marck Peng Jr., DO [address] [place] [address] Otolaryngology (ENT) 03/26/17 Rental Sales Representative Relationship Specialty Start Date End Date Claudine Majano MD [address] [address] PCP - General Family Medicine 07/01/21 Marck Peng Jr., DO [address] [place] [address] Otolaryngology (ENT) 03/26/17 Maribell Cabrera, hack saw operatorCash Applications Clerk 07/10/23 07/10/23 Rental Sales Representative Relationship Specialty Start Date End Date Claudine Majano MD [address] [address] PCP - General Family Medicine 07/01/21 Marck Peng Jr., DO [address] [place] [address] Otolaryngology (ENT) 03/26/17 Maribell Cabrera, hack saw operatorCash Applications Clerk 07/10/23 07/10/23 Rental Sales Representative Relationship Specialty Start Date End Date Claudine Majano MD [address] [address] PCP - General Family Medicine 07/01/21 Marck Peng Jr., DO [address] [place] [address] Otolaryngology (ENT) 03/26/17 Rental Sales Representative Relationship Specialty Start Date End Date Claudine Majano MD [address] [address] PCP - General Family Medicine 07/01/21 Marck Peng Jr., DO [address] [place] [address] Otolaryngology (ENT) 03/26/17 Rental Sales Representative Relationship Specialty Start Date End Date Claudine Majano MD [address] [phone] PCP - General Family Medicine 07/01/21 Marck Peng Jr., DO [address] [place] [address] Otolaryngology (ENT) 03/26/17 Rental Sales Representative Relationship Specialty Start Date End Date Claudine Majano MD [address] [address] PCP - General Family Medicine 07/01/21 Marck Peng Jr., DO [address] [place] [address] Otolaryngology (ENT) 03/26/17 Rental Sales Representative Relationship Specialty Start Date End Date Claudine Majano MD [address] [address] PCP - General Family Medicine 07/01/21 Marck Peng Jr., DO [address] [place] [address] Otolaryngology (ENT) 03/26/17 Rental Sales Representative Relationship Specialty Start Date End Date Claudine Majano MD [address] [address] PCP - General Family Medicine 07/01/21 Marck Peng Jr., DO [address] [place] [address] Otolaryngology (ENT) 03/26/17 Rental Sales Representative Relationship Specialty Start Date End Date Claudine Majano MD [address] [address] PCP - General Family Medicine 07/01/21 Marck Peng Jr., DO [address] [place] [address] Otolaryngology (ENT) 03/26/17 Rental Sales Representative Relationship Specialty Start Date End Date Claudine Majano MD [address] [address] PCP - General Family Medicine 04/26/24 Rental Sales Representative Relationship Specialty Start Date End Date Claudine Majano MD [address] [address] PCP - General Family Medicine 07/01/21 Marck Peng Jr., DO [address] [place] [address] Otolaryngology (ENT) 03/26/17 Rental Sales Representative Relationship Specialty Start Date End Date Claudine Majano MD [address] [address] PCP - General Family Medicine 07/01/21 Marck Peng Jr., DO [address] [place] [address] Otolaryngology (ENT) 03/26/17 Rental Sales Representative Relationship Specialty Start Date End Date Claudine Majano MD [facility] [address] [address] PCP - General Family Medicine 07/01/21 Marck Peng Jr., DO [address] [place] [address] Otolaryngology (ENT) 03/26/17 Rental Sales Representative Relationship Specialty Start Date End Date Claudine Majano MD [address] [address] PCP - General Family Medicine 07/01/21 Marck Peng Jr., DO [address] [place] [address] Otolaryngology (ENT) 03/26/17 Rental Sales Representative Relationship Specialty Start Date End Date Claudine Majano MD [address] [address] PCP - General Family Medicine 07/01/21 Marck Peng Jr., DO [address] [place] [address] Otolaryngology (ENT) 03/26/17 Rental Sales Representative Relationship Specialty Start Date End Date Claudine Majano MD [address] [address] PCP - General Family Medicine 07/01/21 Marck Peng Jr., DO [address] [place] [address] Otolaryngology (ENT) 03/26/17 Rental Sales Representative Relationship Specialty Start Date End Date Claudine Majano MD [address] [address] PCP - General Family Medicine 07/01/21 Marck Peng Jr., DO [address] [place] [address] Otolaryngology (ENT) 03/26/17 Rental Sales Representative Relationship Specialty Start Date End Date Claudine Majano MD [address] [address] PCP - General Family Medicine 07/01/21 Marck Peng Jr., DO [address] [place] [address] Otolaryngology (ENT) 03/26/17 Rental Sales Representative Relationship Specialty Start Date End Date Claudine Majano MD [address] [address] PCP - General Family Medicine 07/01/21 Marck Peng Jr., DO [address] [place] [address] Otolaryngology (ENT) 03/26/17 Rental Sales Representative Relationship Specialty Start Date End Date Claudine Majano MD [address] [address] PCP - General Family Medicine 07/01/21 Marck Peng Jr., DO [address] [place] [address] Otolaryngology (ENT) 03/26/17 Rental Sales Representative Relationship Specialty Start Date End Date Claudine Majano MD [address] [address] PCP - General Family Medicine 07/01/21 Marck Peng Jr., DO [address] [place] [address] Otolaryngology (ENT) 03/26/17 Rental Sales Representative Relationship Specialty Start Date End Date Claudine Majano MD [address] [address] PCP - General Family Medicine 07/01/21 Marck Peng Jr., DO [address] [place] [address] Otolaryngology (ENT) 03/26/17 Rental Sales Representative Relationship Specialty Start Date End Date Claudine Majano MD [facility] [address] [address] PCP - General Family Medicine 07/01/21 Marck Peng Jr., DO [address] [place] [address] Otolaryngology (ENT) 03/26/17 Rental Sales Representative Relationship Specialty Start Date End Date Claudine Majano MD [address] [place] [id number] PCP - General Family Medicine 04/26/24 Rental Sales Representative Relationship Specialty Start Date End Date Claudine Majano MD [address] [place] [id number] PCP - General Family Medicine 07/01/21 Marck Peng Jr., DO [address] [place] [address] Otolaryngology (ENT) 03/26/17 Scheduled Active and Recently Administ ered Medications (unrecognized section and content) Medication Order 04/03/2022 04/04/2022 04/05/2022 amLODIPine (NORVASC) tablet 5 mg 5 mg, Oral, Daily, First dose on 04/05/22 at 1200 1156 (Given - Provid er: Portillo Frederick RN) aspirin EC tablet 81 mg 81 mg, Oral, Daily, First dose on Thu04/04/22 at 1130, DO NOT CRUSH OR CHEW. 1055 (Given - Provider: Jam Chambers RN) 0906 (Given - Provider: Portillo Frederick, MISSY) atorvastatin (LIPITOR) tablet 40 mg 40 mg, Oral, Nightly, First dose (after last modification) on Thu04/08/22 at 2100 carBAMazepine (TEGretol) chewable tablet 50 mg 50 mg, Oral, 3 times daily, First dose on Thu04/04/22 at 1130, Pharmacy to crush/split CATEGORY C HAZARDOUS DRUG use safe handling precautions. Use reference link to view PPE guidelines. Minimize crushing/splitting only to situations where clinically necessary. 1054 (Given - Provider: Jam Chambers RN)1433 (Given - Provider: Jam Chambers RN)2023 (Given - Provider: Justina Rodarte RN) 1021 (Given - Provider: Portillo Frederick, MISSY) carBAMazepine (TEGRETOL) tablet 200 mg 200 mg, Oral, 3 times daily, First dose on Thu04/04/22 at 1130, CATEGORY C HAZARDOUS DRUG use safe handling precautions. Use reference link to view PPE guidelines. Minimize crushing/splitting only to situations where clinically necessary. 1054 (Given - Provider: Jam Chambers RN)1433 (Given - Provider: Jam Chambers RN)2023 (Given - Provider: Justina Rodarte RN) 0909 (Given - Provider: Portillo Frederick, MISSY) colesevelam (WELCHOL) tablet 1,875 mg 1,875 mg, Oral, 2 times daily with meals, First dose on Thu04/04/22 at 1700 1709 (Given - Provider: Jam Chambers RN) 0907 (Given - Provider: Portillo Frederick, MISSY) enoxaparin (LOVENOX) syringe 40 mg 40 mg, Subcutaneous, Daily, First dose on Thu04/04/22 at 1400, Administer in abdomen unless otherwise directed by prescriber. Notify physician if patient refuses., Indication: VTE Prophylaxis 1433 (Given - Provider: Jam Chambers RN) 0909 (Given - Provider: Portillo Frederick RN) fluconazole (DIFLUCAN) tablet 150 mg (COMPLETED) 150 mg, Oral, Once, On Thu04/04/22 at 1330, For 1 dose, CATEGORY D HAZARDOUS DRUG use safe handling precautions. Use reference link to view PPE guidelines. Minimize crushing/splitting only to situations where clinically necessary., Indication: Other: (specify), Indication: vaginal infection 1433 (Given - Provider: Jam Chambers RN) losartan (COZAAR) tablet 100 mg 100 mg, Oral, Daily, First dose on Thu04/04/22 at 1130 1054 (Given - Provider: Jam Chambers RN) 0907 (Given - Provider: Portillo Frederick RN) melatonin Tab 5 mg 5 mg, Oral, Nightly, First dose on Thu04/04/22 at 2130 2207 (Given - Provider: Justina Rodarte RN) methadone (DOLOPHINE) tablet 10 mg 10 mg, Oral, 2 times daily, First dose on Thu04/04/22 at 1015, Notify prescribing physician and hold methadone if Respiratory Rate less than 10, if POSS Sedation score of 3 or 4, or RASS of -3, -4 or -5 (non-ventilated patients). May cause QT interval prolongation. Verify patient has received Patient Med Guide for methadone., Indication for methadone: Chronic pain 1054 (Given - Provider: Jam Chambers RN)2023 (Given - Provider: Justina Rodarte RN) 09 (Given - Provider: Portillo Frederick RN) metoprolol succinate (TOPROL-XL) 24 hr tablet 50 mg 50 mg, Oral, At bedtime, First dose on Thu04/04/22 at 2100, DO NOT CRUSH OR CHEW. 2023 (Given - Provider: Justina Rodarte RN) sodium chloride (PF) (NS) flush 5 mL(Linked Group 1) 5 mL, Intravenous, Every 8 hours scheduled, First dose on Thu04/04/22 at 1400, Saline lock 1400 (Not Given - Provider: Jam Chambers RN - Reason: Other - Comment: infusing continously)2026 (Given - Provider: Justina Rodarte RN)2200 (Canceled Entry - Provider: Justina Rodarte RN) 0600 (Given - Provider: Justina Rodarte RN)1400 (Due) sulfamethoxazole-trimethop rim (BACTRIM DS,SEPTRA DS) 800-160 mg per tablet 1 tablet 1 tablet, Oral, Every 12 hours scheduled, First dose on Thu04/04/22 at 1330, Indication: UTI 1433 (Given - Provider: Jam Chambers RN)2024 (Given - Provider: Justina Rodarte RN) 0909 (Given - Provider: Portillo Frederick, RN) tolterodine (DETROL LA) 24 hr capsule 2 mg 2 mg, Oral, Daily, First dose on Thu04/04/22 at 1130, DO NOT CRUSH OR CHEW. 1054 (Given - Provider: Jam Chambers RN) 0907 (Given - Provider: Portillo Frederick, RN) Continuous Medication Order 04/03/2022 04/04/2022 04/05/2022 sodium chloride 0.9% (NS) 75 mL/hr, Intravenous, Continuous, Starting on Thu04/04/22 at 1215 1208 (New Bag - Provider: Jam Chambers RN)1208 (Paused - Provider: Jam Chambers RN)1208 (Restarted - Provider: Jam Chambers RN)1320 (Paused - Provider: Jam Chambers RN)1322 (Restarted - Provider: Jam Chambers RN)1434 (Paused - Provider: Jam Chambers RN)1434 (Restarted - Provider: Jam Chambres RN)1453 (Paused - Provider: Jam Chambers RN)1453 (Restarted - Provider: Jam Chambers RN)1713 (Paused - Provider: Jam Chambers, MISSY)1713 (Restarted - Provider: Jam Chambers RN)1716 (Paused - Provider: Jam Chambers RN)1716 (Restarted - Provider: Jam Chambers RN)1747 (Stopped - Provider: Jam Chambers RN) 0123 (New Bag - Provider: Adolfo Kilgore RN)0243 (Rate/Dose Verify - Provider: Justina Rodarte RN)0453 (Rate/Dose Verify - Provider: Justina Rodarte RN)0606 (Rate/Dose Verify - Provider: Justina Rodarte RN)0715 (Paused - Provider: Portillo Frederick RN)0719 (Restarted - Provider: Portillo Frederick RN)0915 (Paused - Provider: Portillo Frederick RN)0916 (Restarted - Provider: Portillo Frederick RN)1159 (Stopped - Provider: Portillo Frederick RN) PRN Medication Order 04/03/2022 04/04/2022 04/05/2022 acetaminophen (TYLENOL) tablet 650 mg 650 mg, Oral, Every 4 hours PRN, mild pain, fever 100.4 F or greater, headaches, Starting on Thu04/04/22 at 0923 2023 (Given - Provider: Justina Rodarte RN) 0120 (Given - Provider: Adolfo Kilgore RN) naloxone (NARCAN) injection 0.1 mg(Linked Group 2) 0.1 mg, Intravenous, As needed, opioid reversal, For respiratory rate less than or equal to 8 per minute., Starting on Thu04/04/22 at 0924, Mix nalOXone (NARCAN) 0.4 mg (1mL) with 9 mL of Normal Saline to total 10 mL. Administer 0.1 mg (2.5mL) IV Push every 2 minutes until respiratory rate is 10 or greater. naloxone (NARCAN) injection 0.4 mg(Linked Group 2) 0.4 mg, Intravenous, As needed, opioid reversal, patient is pulseless, breathless, and unresponsive, Starting on Thu04/04/22 at 0924, Call a code first, then administer naloxone dose undiluted IV Push over 30 seconds. nitroGLYCERIN (NITROSTAT) SL tablet 0.4 mg 0.4 mg, Sublingual, Every 5 min PRN, chest pain, Starting on Thu04/04/22 at 0923, For chest pain. May give up to 3 doses. Call physician for chest pain unrelieved by Nitroglycerin, or recurrent chest pain. DO NOT CRUSH OR CHEW. ondansetron (ZOFRAN) injection 4 mg 4 mg, Intravenous, Every 6 hours PRN, nausea, vomiting, Starting on Thu04/04/22 at 0923 sodium chloride (PF) (NS) flush 5 mL(Linked Group 1) 5 mL, Intravenous, As needed, line care, Starting on Thu04/04/22 at 0922 sodium chloride 0.9% (NS)(Linked Group 1) 0-150 mL/hr, Intravenous, As needed, To flush line after IV infusions when no maintenance IV ordered or a compatibility issue. Infuse 20ml at the same rate as the secondary infusion, Starting on Thu04/04/22 at 0922, Run as Primary IV. NOT intended for KVO. Linked Groups Order Group 1: Saline lock IV (CANCELED) Routine, Continuous, Starting on Thu04/04/22 at 0923, Until Specified And sodium chloride (PF) (NS) flush 5 mLJump to med 5 mL, Intravenous, As needed, line care, Starting on Thu04/04/22 at 0922 And sodium chloride (PF) (NS) flush 5 mLJump to med 5 mL, Intravenous, Every 8 hours scheduled, First dose on Thu04/04/22 at 1400
Saline lock
And sodium chloride 0.9% (NS)Jump to med 0-150 mL/hr, Intravenous, As needed, To flush line after IV infusions when no maintenance IV ordered or a compatibility issue. Infuse 20ml at the same rate as the secondary infusion, Starting on Thu04/04/22 at 0922
Run as Primary IV. NOT intended for KVO.
Group 2: naloxone (NARCAN) injection 0.1 mgJump to med 0.1 mg, Intravenous, As needed, opioid reversal, For respiratory rate less than or equal to 8 per minute., Starting on Thu04/04/22 at 0924
Mix nalOXone (NARCAN) 0.4 mg (1mL) with 9 mL of Normal Saline to total 10 mL. Administer 0.1 mg (2.5mL) IV Push every 2 minutes until respiratory rate is 10 or greater.
And Notify physician (CANCELED) STAT, Until discontinued, Starting on Thu04/04/22 at 0925, Until Specified
Respiratory rate less than: 8
For respiratory rate less than or equal to 8, notify physician and/or appropriate staff for additional orders. And naloxone (NARCAN) injection 0.4 mgJump to med 0.4 mg, Intravenous, As needed, opioid reversal, patient is pulseless, breathless, and unresponsive, Starting on Thu04/04/22 at 0924
Call a code first, then administer naloxone dose undiluted IV Push over 30 seconds.
Scheduled Medication Order 07/07/2023 07/08/2023 07/09/2023 atorvastatin (LIPITOR) tablet 40 mg 40 mg, Oral, Nightly, First dose on Thu07/07/23 at 2330 2354 (Given - Provider: Jodee Hoffmann RN) 2037 (Given - Provider: Jodee Hoffmann, RN) baclofen (LIORESAL) tablet 10 mg (CANCELED) 10 mg, Oral, 3 times daily, First dose on Thu07/07/23 at 2330 2354 (Given - Provider: Jodee Hoffmann RN) baclofen (LIORESAL) tablet 5 mg 5 mg, Oral, 3 times daily, First dose (after last modification) on Thu07/08/23 at 0900 0824 (Given - Provider: Gary Thomas, RN)1553 (Given - Provider: Gary Thomas, RN)2037 (Given - Provider: Jodee Hoffmann, MISSY) 0908 (Given - Provider: Dacia Martin RN)1500 (Due) carBAMazepine (TEGRETOL) tablet 100 mg (COMPLETED) 100 mg, Oral, 2 times daily, First dose on Thu07/07/23 at 2300, For 2 doses, CATEGORY C HAZARDOUS DRUG use safe handling precautions. Use reference link to view PPE guidelines. Minimize crushing/splitting only to situations where clinically necessary. 2355 (Given - Provider: Jodee Hoffmann RN) 0823 (Given - Provider: Gary Thomas, RN) cefTRIAXone (ROCEPHIN) IVPB 1 g (premix) 1,000 mg, Intravenous, at 100 mL/hr, Every 24 hours, First dose on Thu07/08/23 at 1600, Indication: UTI (mild to moderate) 1555 (New Bag - Provider: Gary Thomas, RN) DULoxetine (CYMBALTA) DR capsule 60 mg 60 mg, Oral, At bedtime, First dose on Thu07/07/23 at 2330, DO NOT CRUSH OR CHEW. 2354 (Given - Provider: Jodee Hoffmann RN) 2037 (Given - Provider: Jodee Hoffmann, RN) enoxaparin (LOVENOX) syringe 40 mg 40 mg, Subcutaneous, Daily, First dose on Thu07/08/23 at 0900, Administer in abdomen unless otherwise directed by prescriber. Notify physician if patient refuses., Indication: VTE Prophylaxis 08 (Given - Provider: Gary Thomas, RN) 910 (Given - Provider: Dacia Martin, MISSY) furosemide (LASIX) tablet 20 mg 20 mg, Oral, 2 times daily, First dose on Thu07/07/23 at 2330 2354 (Given - Provider: Jodee Hoffmann RN) 823 (Given - Provider: Gary Thomas RN)2037 (Given - Provider: Jodee Hoffmann RN) 907 (Given - Provider: Dacia Martin, RN) lamoTRIgine (LAMICTAL) tablet 200 mg 200 mg, Oral, Daily, First dose on Thu07/08/23 at 0900 0824 (Given - Provider: Gary Thomas RN) 09 (Given - Provider: Dacia Martin, MISSY) losartan (COZAAR) tablet 50 mg 50 mg, Oral, Daily, First dose on Thu07/08/23 at 0900 0824 (Given - Provider: Gary Thomas RN) 09 (Given - Provider: Dacia Martin, MISSY) methadone (DOLOPHINE) tablet 5 mg 5 mg, Oral, 2 times daily, First dose on Thu07/07/23 at 2245, Notify prescribing physician and hold methadone if Respiratory Rate less than 10, if POSS Sedation score of 3 or 4, or RASS of -3, -4 or -5 (non-ventilated patients). May cause QT interval prolongation. Verify patient has received Patient Med Guide for methadone., Indication for methadone: Chronic pain 2339 (Given - Provider: Jodee Hoffmann RN) 821 (Given - Provider: Gary Thomas RN)2037 (Given - Provider: Jodee Hoffmann RN) 910 (Given - Provider: Dacia Martin, MISSY) metoprolol succinate (TOPROL-XL) 24 hr tablet 50 mg 50 mg, Oral, At bedtime, First dose on Thu07/07/23 at 2330, DO NOT CRUSH OR CHEW. 2354 (Given - Provider: Jodee Hoffmann, MISSY) 2038 (Given - Provider: Jodee Hoffmann RN) sodium chloride (PF) (NS) flush 5 mL(Linked Group 1) 5 mL, Intravenous, Every 8 hours scheduled, First dose on Thu07/07/23 at 2245, Saline lock 2340 (Given - Provider: Jodee Hoffmann RN) 0600 (Canceled Entry - Provider: Jodee Hoffmann RN)1459 (Given - Provider: Gary Thomas, MISSY)2200 (Canceled Entry - Provider: Jodee Hoffmann RN) 0600 (Canceled Entry - Provider: Jodee Hoffmann RN)1400 (Due) spironolactone (ALDACTONE) tablet 25 mg 25 mg, Oral, Daily, First dose on Thu07/08/23 at 0900, CATEGORY C HAZARDOUS DRUG use safe handling precautions. Use reference link to view PPE guidelines. Minimize crushing/splitting only to situations where clinically necessary. 0824 (Given - Provider: Gary Thomas RN) 0908 (Given - Provider: Dacia Martin RN) PRN Medication Order 07/07/2023 07/08/2023 07/09/2023 acetaminophen (TYLENOL) tablet 650 mg 650 mg, Oral, Every 4 hours PRN, mild pain, fever 100.4 F or greater, headaches, Starting on Thu07/07/23 at 2141 melatonin tablet 3 mg 3 mg, Oral, Nightly PRN, Sleep, Starting on Thu07/07/23 at 2141 ondansetron (ZOFRAN) injection 4 mg(Linked Group 2) 4 mg, Intravenous, Every 6 hours PRN, nausea, vomiting, Starting on Thu07/07/23 at 2141, Use oral route first, if tolerated. ondansetron (ZOFRAN-ODT) disintegrating tablet 4 mg(Linked Group 2) 4 mg, Oral, Every 6 hours PRN, nausea, vomiting, Starting on Thu07/07/23 at 2141, Use oral route first, if tolerated. Formulation requires tablet remain in sealed package until immediately prior to dose being administered. senna (SENOKOT) tablet 8.6 mg 8.6 mg (1 tablet), Oral, 2 times daily PRN, constipation, Starting on Thu07/07/23 at 2141 sodium chloride (PF) (NS) flush 5 mL(Linked Group 1) 5 mL, Intravenous, As needed, line care, Starting on Thu07/07/23 at 2141 sodium chloride 0.9% (NS)(Linked Group 1) 0-150 mL/hr, Intravenous, As needed, To flush line after IV infusions when no maintenance IV ordered or a compatibility issue. Infuse 20ml at the same rate as the secondary infusion, Starting on Thu07/07/23 at 2141, Run as Primary IV. NOT intended for KVO. Linked Groups Order Group 1: Saline lock IV (CANCELED) Routine, Continuous, Starting on Thu07/07/23 at 2142, Until Specified And sodium chloride (PF) (NS) flush 5 mLJump to med 5 mL, Intravenous, As needed, line care, Starting on Thu07/07/23 at 2141 And sodium chloride (PF) (NS) flush 5 mLJump to med 5 mL, Intravenous, Every 8 hours scheduled, First dose on Thu07/07/23 at 2245, Saline lock And sodium chloride 0.9% (NS)Jump to med 0-150 mL/hr, Intravenous, As needed, To flush line after IV infusions when no maintenance IV ordered or a compatibility issue. Infuse 20ml at the same rate as the secondary infusion, Starting on Thu07/07/23 at 2141, Run as Primary IV. NOT intended for KVO. Group 2: ondansetron (ZOFRAN-ODT) disintegrating tablet 4 mgJump to med 4 mg, Oral, Every 6 hours PRN, nausea, vomiting, Starting on Thu07/07/23 at 2141, Use oral route first, if tolerated. Formulation requires tablet remain in sealed package until immediately prior to dose being administered. Or ondansetron (ZOFRAN) injection 4 mgJump to med 4 mg, Intravenous, Every 6 hours PRN, nausea, vomiting, Starting on Thu07/07/23 at 2141, Use oral route first, if tolerated. Scheduled Medication Order 10/25/2024 10/26/2024 10/27/2024 iohexol (OMNIPaque) 350 mg iodine/mL solution 69 mL (COMPLETED) 69 mL, intravenous, Once in imaging, Starting on Thu10/27/24 at 1214, For 1 dose 1214 (Given - Provid er: Florinda Barber) ondansetron (Zofran) injection 4 mg (COMPLETED) 4 mg, intravenous, Once, On Nae 10/27/24 at 1105, For 1 dose, When administering via IV Push, administer over 3-5 minutes. 1122 (Given - Provid er: Mgagie Gutierrez RN) Continuous Medication Order 10/25/2024 10/26/2024 10/27/2024 sodium chloride 0.9% infusion 150 mL/hr, intravenous, Continuous, Starting on Nae 10/27/24 at 1105, For 1 day 1123 (New Bag - Prov ider: Maggie Gutierrez RN)1453 (Stopped - Provider: Maggie Gutierrez RN - Comment: [Order ends at this time. Document the following action when infusion is complete: Stopped]) Scheduled Medication Order 11/08/2024 11/09/2024 11/10/2024 atorvastatin (LIPITOR) tablet 40 mg 40 mg, Oral, Nightly, First dose on Thu11/02/24 at 2230 2103 (Given - Provider: Glenis Archer LPN) 2148 (Given - Provider: La Ramey RN) enoxaparin (LOVENOX) syringe 30 mg (CANCELED) 30 mg, Subcutaneous, Daily, First dose on Thu11/02/24 at 2100, Administer in abdomen unless otherwise directed by prescriber. Notify physician if patient refuses., Prophylaxis Indication: VTE Prophylaxis 0836 (Given - Provider: Aby Rick) 0919 (Given - Provider: Cynthia Camilo, MISSY) enoxaparin (LOVENOX) syringe 40 mg 40 mg, Subcutaneous, Daily, First dose (after last modification) on Thu11/10/24 at 0900, Administer in abdomen unless otherwise directed by prescriber. Notify physician if patient refuses., Prophylaxis Indication: VTE Prophylaxis 0954 (Given - Provider: Cynthia Camilo, MISSY) furosemide (LASIX) tablet 20 mg 20 mg, Oral, Daily, First dose on Thu11/03/24 at 0900, On hold since Thu11/04/2024 at 1201 until manually unheld 0900 (Automatically Held - Provider: Tamra Dewey MD) 0900 (Automatically Held - Provider: Tamra Dewey MD) 09 (Automatically Held)2143 (Unheld by provider - Provider: Discharge Provider, Automatic) lamoTRIgine (LAMICTAL) tablet 250 mg 250 mg, Oral, 2 times daily, First dose (after last modification) on Thu11/03/24 at 2100 0837 (Given - Provider: Aby Rick)210 (Given - Provider: Glenis Archer LPN) 09 (Given - Provider: Cynthia Camilo RN)214 (Given - Provider: La Ramey, MISSY) 0954 (Given - Provider: Cnythia Camilo RN) losartan (COZAAR) tablet 50 mg 50 mg, Oral, Daily, First dose on Nae 11/03/24 at 0900 0838 (Given - Provider: Aby Rick) 0919 (Given - Provider: Cynthia Camilo RN) 0954 (Given - Provider: Cynthia Camilo RN) magnesium sulfate 2 g in sterile water (SW) 50 mL IVPB (COMPLETED) 2 g, Intravenous, at 50 mL/hr, Once, On Thu11/09/24 at 1300, For 1 dose 151 (New Bag - Provider: Nena Gutierrez RN) meclizine (ANTIVERT) tablet 25 mg 25 mg, Oral, 3 times daily, First dose (after last modification) on Thu11/06/24 at 1500 0837 (Given - Provider: Aby Rick)151 (Given - Provider: Aby Rick)2101 (Given - Provider: Glenis Archer LPN) 09 (Given - Provider: Cynthia Camilo RN)151 (Given - Provider: Nena Gutierrez, MISSY)214 (Given - Provider: La Ramey RN) 0955 (Given - Provider: Cynthia Camilo RN)153 (Given - Provider: Skye Diaz LPN) melatonin Tab 5 mg 5 mg, Oral, Nightly, First dose on Nae 11/03/24 at 0045 2103 (Given - Provider: Glenis Archer LPN) 2100 (Given - Provider: La Ramey RN) methadone (DOLOPHINE) tablet 7.5 mg 7.5 mg, Oral, 2 times daily, First dose on Thu11/02/24 at 2230, Notify prescribing physician and hold methadone if Respiratory Rate less than 10, if POSS Sedation score of 3 or 4, or RASS of -3, -4 or -5 (non-ventilated patients). May cause QT interval prolongation. Verify patient has received Patient Med Guide for methadone., Indication for methadone: Chronic pain 0838 (Given - Provider: Aby Rick)2103 (Given - Provider: Glenis Archer LPN) 0919 (Given - Provider: Cynthia Camilo RN)214 (Given - Provider: La Ramey RN) 0954 (Given - Provider: Cynthia Camilo RN) metoclopramide (REGLAN) tablet 5 mg 5 mg, Oral, 4 times daily before meals and nightly, First dose on Thu11/06/24 at 1230 0838 (Given - Provider: Aby Rick)1235 (Given - Provider: Aby Rick)1719 (Given - Provider: George Clifton RN)210 (Given - Provider: Glenis Archer LPN) 0924 (Given - Provider: Cynthia Camilo RN)1201 (Given - Provider: Nena Gutierrez RN)1710 (Given - Provider: Nena Gutierrez RN)2148 (Given - Provider: La Ramey RN) 0955 (Given - Provider: Cynthia Camilo RN)1237 (Given - Provider: Nena Gutierrez RN)1815 (Given - Provider: Skye Diaz LPN) pantoprazole (PROTONIX) EC tablet 40 mg 40 mg, Oral, Daily, First dose on Thu11/03/24 at 0900, DO NOT CRUSH OR CHEW. 0840 (Given - Provider: Aby Rick) 0919 (Given - Provider: Cynthia Camilo RN) 0954 (Given - Provider: Cynthia Camilo RN) sodium chloride (PF) (NS) flush 5 mL(Linked Group 1) 5 mL, Intravenous, Every 8 hours scheduled, First dose on Thu11/02/24 at 2230, Saline lock 0334 (Given - Provider: Liana Rodrigues RN)0900 (Not Given - Provider: George Clifton RN - Reason: Order parameters not met)1414 (Given - Provider: Aby Rick)2106 (Given - Provider: Glenis Archer LPN) 0656 (Given - Provider: Liana Rodrigues RN)1516 (Given - Provider: Nena Gutierrez RN)2149 (Given - Provider: La Ramey RN) 0600 (Canceled Entry - Provider: La Ramey RN)1536 (Given - Provider: Skye Diaz LPN) PRN Medication Order 11/08/2024 11/09/2024 11/10/2024 nitroGLYCERIN (NITROSTAT) SL tablet 0.4 mg 0.4 mg, Sublingual, Every 5 min PRN, chest pain, Starting on Thu11/02/24 at 2142, Anginal pain, may repeat [id number] x3, then notify physician. DO NOT CRUSH OR CHEW. ondansetron (ZOFRAN) injection 4 mg 4 mg, Intravenous, Every 6 hours PRN, nausea, vomiting, Starting on Nae 11/03/24 at 1005 sodium chloride (PF) (NS) flush 5 mL(Linked Group 1) 5 mL, Intravenous, As needed, line care, Starting on Thu11/02/24 at 2142 sodium chloride 0.9% (NS)(Linked Group 1) 0-150 mL/hr, Intravenous, As needed, To flush line after IV infusions when no maintenance IV ordered or a compatibility issue. Infuse 20ml at the same rate as the secondary infusion, Starting on Thu11/02/24 at 2142, Run as Primary IV. NOT intended for KVO. 1515 (New Bag - Provider: eNna Gutierrez RN) Linked Groups Order Group 1: Saline lock IV (CANCELED) Routine, Continuous, Starting on Thu11/02/24 at 2143, Until Specified And sodium chloride (PF) (NS) flush 5 mLJump to med 5 mL, Intravenous, As needed, line care, Starting on Thu11/02/24 at 2142 And sodium chloride (PF) (NS) flush 5 mLJump to med 5 mL, Intravenous, Every 8 hours scheduled, First dose on Thu11/02/24 at 2230, Saline lock And sodium chloride 0.9% (NS)Jump to med 0-150 mL/hr, Intravenous, As needed, To flush line after IV infusions when no maintenance IV ordered or a compatibility issue. Infuse 20ml at the same rate as the secondary infusion, Starting on Thu11/02/24 at 2142, Run as Primary IV. NOT intended for KVO. FOR RECORDS PERTAINING TO PATIENTS WHO ARE OR HAVE BEEN ENROLLED IN A CHEMICAL DEPENDENCY/SUBSTANCEABUSE PROGRAM, SOME INFORMATION MAY BE OMITTED. This clinical summary was aggregated from multiple sources. Caution should be exercised in using it in the provision of clinical care. This summary normalizes information from multiple sources, and as a consequence, information in this document may materially change the coding, format and clinical context of patient data. In addition, data may be omitted in some cases. CLINICAL DECISIONS SHOULD BE BASED ON THE PRIMARY CLINICAL RECORDS. [employer] [facility]. provides no warranty or guarantee of the accuracy or completeness of information in this document.
--- NOTE | 2024-11-11 07:20 | NURSING ---
Contacted lab notifying AM labs have not yet been obtained, per microbiology lab analyst will reach out to director pharmaceutical for lab draw.
--- NOTE | 2024-11-11 07:22 | NURSING ---
Patient reports no BM in 5 or 6 days but thats not new for me. Written communication left for Dr. Wilde regarding patient report of constipation.
--- NOTE | 2024-11-11 07:46 | PCM.PN.DRR ---
Documented by User: Kirstin Stock 11/11/24 10:13 TCU RX Drug Regimen Review Subjective/Objective Subjective/Objective Subjective: TCU Admission. 89 YOF presented to outside ER with dizziness and urinary complaint. Hospitalized for dizziness 2/2 bppv, medication side effect, stroke ruled out, complicated by urinary tract infection. Admitted to TCU with debility for strengthening and rehabilitation. Objective: Allergies adhesive tape Allergy (Verified 10/01/23 06:32) Rash bacitracin (From Neosporin ([id number])) Allergy (Verified 10/01/23 06:32) Rash lidocaine (From Salonpas (lidocaine)) Allergy (Verified 10/01/23 06:32) Rash neomycin (From Neosporin ([id number])) Allergy (Verified 10/01/23 06:32) Rash polymyxin B (From Neosporin ([id number])) Allergy (Verified 10/01/23 06:32) Rash codeine Adverse Reaction (Verified 10/01/23 06:32) Upset Stomach gabapentin Adverse Reaction (Verified 10/01/23 06:32) Upset Stomach Current Medications Generic Name Dose Route Start Last Admin Trade Name Freq PRN Reason Stop Dose Admin Acetaminophen 1,000 mg 11/10/24 21:55 Acetaminophen 500 Mg Tablet PO Q6H PRN PRN Pain Score 1-10 Aspirin 81 mg 11/11/24 08:00 Aspirin E.C. 81 Mg Tablet PO BREAKFAST [facility] Atorvastatin Calcium 40 mg 11/10/24 22:00 11/10/24 22:46 Atorvastatin Calcium 40 Mg Tablet PO 40 mg QHS [facility] Administration Calamine/Phenol 1 applic 11/11/24 10:00 Menthol/Lanolin/Calamine/Znox 113 Gm Tube TOPICAL BID [facility] Protocol Cyanocobalamin 1,000 mcg 11/11/24 08:00 Cyanocobalamin 500 Mcg Tablet PO BREAKFAST [facility] Enoxaparin Sodium 40 mg 11/11/24 06:00 Enoxaparin 40 Mg/0.4 Ml Syringe SC DAILY@0600 [facility] Furosemide 20 mg 11/11/24 10:00 Furosemide 20 Mg Tablet PO DAILY [facility] Protocol Lamotrigine 300 mg 11/11/24 10:00 Lamotrigine 150 Mg Tablet PO BID [facility] Losartan Potassium 50 mg 11/11/24 10:00 Losartan Potassium 50 Mg Tablet PO DAILY [facility] Protocol Magnesium Citrate 300 ml 11/11/24 07:35 Magnesium Citrate 300 Ml PO DAILY PRN Constipation Meclizine HCl 25 mg 11/10/24 21:06 Meclizine Hcl 25 Mg Tablet PO TID PRN PRN DIZZINESS Methadone HCl 7.5 mg 11/10/24 22:00 11/10/24 22:46 Methadone 5 Mg Tablet PO 7.5 mg BID DIYA Administration Multivitamins/Minerals 1 tablet 11/11/24 08:00 Multivitamins,Ther W-Minerals Tablet PO DAILYCM [facility] Naloxone HCl 4 mg 11/10/24 21:11 Naloxone 2 Mg/2 Ml Syringe NASAL X1 PRN suspected opiod overdose Nitroglycerin 0.4 mg 11/10/24 21:14 Nitroglycerin (Inpatient Use) 0.4 Mg Tab.Subl SL Q5M PRN CARDIAC/CHEST PAIN Nystatin 1 applic 11/11/24 10:00 Nystatin Powder 15gm Bottle TOPICAL BID [facility] Protocol Ondansetron HCl 8 mg 11/10/24 21:15 Ondansetron Odt 4 Mg Tablet PO Q8H PRN PRN NAUSEA Pantoprazole Sodium 40 mg 11/11/24 10:00 Pantoprazole Sodium 40 Mg Tablet PO DAILY [facility] Senna/Docusate Sodium 2 tablet 11/11/24 10:00 Senna/Docusate Sodium 1 Tablet PO BID [facility] Sodium Chloride 10 - 40 ml 11/10/24 23:02 0.9% Saline Lock 10 Ml Syringe IV UD PRN SALINE FLUSH Tuberculin PPD 0.1 ml 11/11/24 10:00 Tuberculin,Purif.Prot.Deriv. 50 Tu/Ml Vial ID 11/11/24 10:01 X1 ONE Tuberculin PPD 0.1 ml 11/18/24 10:00 Tuberculin,Purif.Prot.Deriv. 50 Tu/Ml Vial ID 11/18/24 10:01 X1 ONE Problem List Overactive bladder (Acute) Fibromyalgia (Acute) GERD (gastroesophageal reflux disease) (Acute) Coronary artery disease (Acute) Essential (primary) hypertension (Acute) Interstitial cystitis (Acute) Trigeminal neuralgia (Acute) Urinary tract infection (Acute) BPPV (benign paroxysmal positional vertigo) (Acute) Dizziness (Acute) Debility (Acute) Vital Signs Temp Pulse Resp BP Pulse Ox O2 Del Method 97.6 F L 88 16 148/75 H 100 Room Air 11/10/24 21:23 11/10/24 21:23 11/10/24 21:23 11/10/24 21:23 11/10/24 21:23 11/10/24 21:23 Oxygen Delivery Method Room Air Weight: 50.944 kg Body Mass Index (BMI) 19.3 Assessment/Plan: 1. Pain: acetaminophen 1000mg PO Q6H PRN pain 1-10. Resident has not used any PRN doses. Please continue to monitor for pain and PRN usage. 2. Bowel: senna/docusate 2T PO BID and magnesium citrate 300mL PO daily PRN constipation. No PRN doses have been given. Please continue to monitor for constipation and diarrhea. No documented bowel movements at this time. 3. DVT prophylaxis: enoxaparin 30mg SC daily. Please continue to monitor for S/S of bleeding/DVT, hemoglobin (last 13.5g/dL), platelets (last 192,000). Enoxaparin is a renally dose medication. CrCl estimated =23mL/min. Dose adjusted per renal dosing policy. Monitor serum creatine periodically. 4. Trigeminal neuralgia: lamotrigine 300mg PO BID, methadone 7.5mg PO BID and Narcan. Please continue to monitor for S/S of pain, constipation, rash, S/S of suicidal ideation (black box warning). Monitor for constipation (no documented bowel movement), respiratory depression (current RR range: last = 16), falls and sedation/delirium (Beerkimi). 5. CAD: losartan 50mg PO daily, aspirin 81mg PO daily and nitroglycerin 0.4mg SL Q5M PRN chest pain. No PRN doses given. Please continue to monitor BP (last 148/75), potassium (last 4.3mmol/L), renal function (SCr 1.36mg/dL), chest pain, PRN usage, S/S of bleeding/bruising, hemoglobin. 6. Hyperlipidemia: atorvastatin 40mg PO QHS. Please consider ordering a lipid panel if clinically appropriate as there is no panel in the chart. Thanks. Please continue to monitor for S/S of muscle pain. 7. Edema: furosemide 20mg PO daily. Please continue to monitor for S/S of edema, renal function, potassium (last 4.3mmol/L). 8. Dizziness: meclizine 25mg PO TID PRN dizziness. No PRN doses have been given. Please continue to monitor for S/S of dizziness and PRN usage. If Resident needs doses please monitor for anticholinergic side effects (BEERs) and dementia/delirium (BEERs). 9. Nausea: ondansetron 8mg PO Q8H PRN nausea. No PRN doses have been given. Please continue to monitor for PRN usage and nausea. 10. GERD: pantoprazole 40mg PO daily. Monitor for diarrhea (consider possibility of C. diff if develops). Consider serum magnesium level and B12 level with long-term use if indicated. If clinically appropriate, consider dose reduction/weaning of medication due to jail risks of C. diff and fractures (Beers). 11. Overactive bladder: vibegron 75mg PO daily. Please continue to monitor for S/S of overactive bladder. 12: Vitamin B12 deficiency/nutrition: cyanocobalamin 1000mcg PO daily and multivitamin with minerals 1T PO daily. Please consider ordering a vitamin B12 level as there is no level in the chart. Thanks. Please continue to monitor. Assessment/Plan for indications treated with psychotropic medications: Resident is not prescribed scheduled or prn psychotropic medications at the time of this drug regimen review. Medical chart and medication regimen reviewed. The following medication irregularities or issues were identified: 1. Atorvastatin 40mg PO QHS. Please consider ordering a lipid panel if clinically appropriate as there is no panel in the chart. Thanks. 2. Cyanocobalamin 1000mcg PO daily. Please consider ordering a vitamin B12 level as there is no level in the chart. Thanks. Date Date of Note: 11/11/24 Documented by User: Dr. Duke Wilde MD 11/11/24 10:22 TCU RX Drug Regimen Review Provider Comments Provider responsibility Provider Comments to Recommendations by Pharmacy Agree
[2024-11-11 09:24] LABS: Hematocrit 41.4 % (37-47); Hemoglobin 13.5 g/dL (12.0-15.0); Immature Granulocytes Count 0.030 X10^3/uL (0.0-0.0); Mean Corp Hgb Conc 32.6 g/dL (32-36); Mean Corpuscular Volume 92.6 fL (81-99); Mean Platelet Vol. 10.3 fl (6.2-12.0); NRBC Flagged by Analyzer 0 % (0-5); Platelet Count 192 K/mm3 (150-450); RBC Distribution Width CV 13.2 % (11.6-14.6); RBC Distribution Width SD 44.8 fl (35.1-43.9); Red Blood Count 4.47 M/mm3 (4.2-5.4); White Blood Count 8.0 K/mm3 (4.4-11.0)
[2024-11-11] MEDS: Aspirin E.C. 81 MG Tablet PO (09:39)
[2024-11-11] MEDS: Senna/Docusate Sodium 1 Tablet 2 TABLET PO ×2 (09:47→22:19)
[2024-11-11 09:53] LABS: Anion Gap 12 (5-15); BUN 30 mg/dL (4-19); BUN/Creat Ratio 22.1 RATIO (10-20); Calcium,Total 10.0 mg/dL (7.6-11.0); Carbon Dioxide 25.0 mmol/L (21.0-32.0); Chloride 98 mmol/L (98-108); Estimated Creatinine Clearance 23.00 ml/min (50-250); Glucose 105 mg/dL (70-99); Potassium 4.3 mmol/L (3.3-5.1)
[2024-11-11 10:00] VITALS: PULSE 98; RESP 18; O2SAT 96
[2024-11-11] MEDS: Magnesium Citrate 300 ML PO (10:46)
[2024-11-11] MEDS: Tuberculin,Purif.prot.deriv. 50 TU/ML Vial 0.1 ML ID (10:47)
--- NOTE | 2024-11-11 11:06 | NURSING ---
Beaver Trapper Note; Activity Asset: Neftali Shelton is independent in her choice of daily activities. At home she has her laptop (was informed she could bring it in). She reads, watches tv, has word search and enjoys visits w/her baptism family. She welcomes visits w/our power generating plant operator and therapy dog when available. Staff will encourage social activities, remind her of weekly activities and respect her right to say no.
--- NOTE | 2024-11-11 15:02 | CHAPLAIN ---
Type of Pastoral Visit _x__ Initial Visit ___ Follow-up Visit ___ On-call Visit ___ General Patient Visit ___ Spiritual Assessment ___ Family Conference ___ Bereavement ___ Rapid Response ___ Code Blue ___ Other (describe below) Pastoral Care Referral From _x__ Patient ___ Family ___ Nurse ___ Physician ___ Strategic Advisor ___ Dean Of Student Services ___ Other (describe below) Sacrament/Intervention _x__ Active listening ___ Anointing ___ Catholic ___ Bereavement ___ Communion _x__ Teri exploration ___ _x__ Life review _x__ Prayer ___ Reconciliation ___ Sacrament of Sick _x__ Supportive presence ___ Wedding ___ Other (describe below) Pastoral Comments patient is very welcoming and speaks freely about her teri and her denominational; pt gives some life review and that she is and living alone; pt is optimistic about the help to come from [facility]; pt has a very supportive son that does whatever I need; however patient shares her heart concern for a daughter that has become estranged in recent months; pt asks for prayer for reconciliation of family; presence and prayer welcomed
--- NOTE | 2024-11-11 15:30 | NURSING ---
Addendum entered by Jessi Londono 11/11/24 19:52: IV started by RN in the right AC. Fluids running as ordered. Flushes well. Original Note: Pt in recliner this AM. Has complaints of dizziness and nausea. Administered meclizine as ordered with little effect. Patient had a few bites of breakfast and declined lunch stating she will eat a few bites of popcorn and drink her ensure. Encouraged patient to eat more as the medications are sitting in her stomach and that could be why she is nauseous. Spoke with Dr. Wilde and he ordered Meclizine scheduled TID. As well as IV fluids. Currently in recliner with call light in reach.
[2024-11-11 16:00] VITALS: BP 144/68; PULSE 96; RESP 18; TEMP 36.8; O2SAT 96
--- NOTE | 2024-11-11 16:08 | CASEMGMT ---
Social Work SW met with patient to complete initial assessment. Introduced self and role. Verified/updated contacts. Patient confirmed code status as DNR-CCA, no intubation. Educated to Medicare benefit and copay coverage. Pt's goal is to return home alone at [facility]. SW will continue to follow for DC planning. SW completed BIMS (12/21) and PHQ-2 () for MDS assessment. Ave Wolf DISTANCE EDUCATION DIRECTOR SENIOR FINANCIAL REPORTING ACCOUNTANT
--- NOTE | 2024-11-11 16:13 | NURSING ---
Phone call to PCP office Dr. Callaway to request immunizations records be faxed. Left voicemail with answering service to have orders faxed to unit.
[2024-11-11] MEDS: 0.9% Normal Saline (1000mL) 1,000 ML 75 ML IV (18:09)
[2024-11-11] MEDS: Scopolamine 1mg/72hr Patch 1 PATCH TD (19:33)
[2024-11-12] MEDS: Aspirin E.C. 81 MG Tablet PO (08:30)
[2024-11-12] MEDS: Senna/Docusate Sodium 1 Tablet 2 TABLET PO ×2 (08:31→20:29)
[2024-11-12 08:36] VITALS: BP 108/56; PULSE 91; RESP 15; TEMP 36.7; O2SAT 98
[2024-11-12 08:54] LABS: Cholesterol 109 mg/dL (<=200); Low Density Lipoprotein Calc. 18 mg/dL; Triglycerides 77 mg/dL; Very Low Density Lipoprotein 15 mg/dL (5-40); cholesterol:hdl ratio screen 1.44
[2024-11-12 09:22] LABS: Vitamin B12 2127 pg/mL (180-914)
[2024-11-12 20:46] VITALS: PULSE 97; RESP 16
--- NOTE | 2024-11-13 04:12 | NURSING ---
During 0400 rounds, this nurse discovered pt standing at the sink peeing into her denture cup. When asked what she was doing, pt stated I had to pee and couldn't make it to the bathroom, but I found my denture cup so I decided to use it. Pt educated on using her call light when she needs assistance, to which pt replied, I don't need help. I don't need to be taken care of like a helpless child. Pt allowed nurse to assist her to the bathroom to get cleaned up and then return to bed. Pt on alarms, but alarms did not sound when pt got out of bed. INLETTER and nurse reset and tested alarms to ensure they were working. Pt was frustrated and snippy at first with this nurse's presence but was calm and pleasant by the end of the interaction, repeatedly stating, You don't need to tell anyone about this. I'm really fine. Pt denied further needs at this time. Call light and personal belongings within reach. Alarms on.
[2024-11-13 04:56] VITALS: PULSE 92; RESP 16
[2024-11-13] MEDS: Aspirin E.C. 81 MG Tablet PO (09:11)
[2024-11-13] MEDS: Senna/Docusate Sodium 1 Tablet 2 TABLET PO ×2 (09:11→21:18)
[2024-11-13 09:16] VITALS: BP 105/53; PULSE 88; RESP 15; TEMP 37.1; O2SAT 97
[2024-11-13] MEDS: Magnesium Citrate 300 ML PO (15:25)
[2024-11-14 03:25] VITALS: BP 173/82; PULSE 76; RESP 18; TEMP 36.4; O2SAT 96
--- NOTE | 2024-11-14 03:32 | NURSING ---
This nurse was returning pt to bed after taking pt to the bathroom. Pt went to sit in bed, accidently sat on her bed rail, lost her balance and slid down the wall to the floor before this nurse could catch her. Pt did not hit her head during this incident. Vital signs taken - BP 173/82, HR 76, O2 96%, RR 18, Temp 97.6. Assisted back to bed by nurse and PROFESSIONAL VOLLEYBALL PLAYER. Pt denies pain or discomfort at this time. Bed alarm on, call light and personal belongings within reach. Fall paperwork completed, FRASS updated, steffen house supervisor notified.
[2024-11-14 05:25] VITALS: BP 136/63; PULSE 77; RESP 18; TEMP 36.6; O2SAT 93
[2024-11-14 10:00] VITALS: BP 116/52; PULSE 66; RESP 18; TEMP 36.1; O2SAT 97
--- NOTE | 2024-11-14 10:43 | NURSING ---
Offered covid vaccine, VIS provided. Resident declines.
[2024-11-14] MEDS: Aspirin E.C. 81 MG Tablet PO (11:31)
[2024-11-14] MEDS: Senna/Docusate Sodium 1 Tablet 2 TABLET PO ×2 (11:32→21:27)
[2024-11-14] MEDS: Scopolamine 1mg/72hr Patch 1 PATCH TD (15:08)
--- NOTE | 2024-11-14 15:41 | NURSING ---
Pt denies pain this morning, vitals 127/60 p-82, r-18, t-98.2, sp02-94% RA. No injuries r/t fall noted. Pt had medium, formed bowel movement this morning, refused enema stating that it was unnecessary after bm.
[2024-11-14] MEDS: MELATONIN 3 MG TABLET PO (21:25)
[2024-11-15] MEDS: Senna/Docusate Sodium 1 Tablet 2 TABLET PO ×2 (08:22→20:20)
[2024-11-15] MEDS: Aspirin E.C. 81 MG Tablet PO (08:23)
[2024-11-15 08:30] VITALS: BP 125/63; PULSE 84; RESP 16; TEMP 36.7; O2SAT 96
[2024-11-15 08:36] VITALS: BMI 19.3
[2024-11-15 10:52] LABS: Mucous, Urine 0 SEEN /hpf (<or=2+); Red Blood Cells-Urine 0 SEEN /hpf (0-5); Squamous Epithelial Cells - UA 0 SEEN /hpf (5-10)
[2024-11-15 10:59] LABS: Color, Urine Yellow (Yellow); Glucose, Dipstick Normal (Normal); Ketone-Dipstick Negative (Negative); Leukocyte Esterase-Dipstick 100 /ul (Negative); Nitrite-Dipstick Positive (Negative); Occult Blood-Urine 25 /ul (Negative); Protein-Dipstick 15 mg/dl (Negative); Specific Gravity, Urine 1.005 (1.002-1.030); Urine Bilirubin Dipstick Negative (Negative)
[2024-11-16] MEDS: Senna/Docusate Sodium 1 Tablet 2 TABLET PO ×2 (08:50→22:54)
[2024-11-16] MEDS: Aspirin E.C. 81 MG Tablet PO (08:50)
[2024-11-16 08:55] VITALS: BP 113/59; PULSE 86; RESP 14; TEMP 36.9; O2SAT 97
--- NOTE | 2024-11-16 10:09 | CASEMGMT ---
Social Work IDT met with patient at bedside, margie via conference call for care plan meeting. Discussed patient's progress in PT/OT/ST/SN/RDN. Educated to Medicare benefit. Provided pt/family with written communication of insurance process and copay coverage during stay. Pt is being affected by dizziness and nausea. AURICULAR THERAPIST explained pt has severe cognitive impairment, needs cues for daily tasks with sequencing and memory. These tests were given prior to UTI yesterday. IDT recommending 24/7 nursing care, i.e. SNF. AL is not recommended d/t being behind closed doors with memory. Currently, pt lives alone with no local support, managing meds, finances and driving. Pt voiced, I will tell you right now, I will not go to a halfway. SW educated to SNF, AL or hiring CASTING FINISHER 24/7 at home, but all at an OOP cost. Pt nor son gave much feedback to recommendations. SW to follow up with son next week and allow time for him to process. Will continue to follow. Ave Wolf POLICEWOMAN COLOR DEPOSITING MACHINE TENDER
--- NOTE | 2024-11-16 13:01 | PCM.PN.DRR ---
Documented by User: Kirstin Stock 11/16/24 14:00 TCU RX Drug Regimen Review Subjective/Objective Subjective/Objective Subjective: Targeted medication re-evaluation. TCU requested repeat medication review as Resident has been experiencing dizziness, falls and unsteadiness. Objective: Allergies adhesive tape Allergy (Verified 10/01/23 06:32) Rash bacitracin (From Neosporin ([id number])) Allergy (Verified 10/01/23 06:32) Rash lidocaine (From Salonpas (lidocaine)) Allergy (Verified 10/01/23 06:32) Rash neomycin (From Neosporin ([id number])) Allergy (Verified 10/01/23 06:32) Rash polymyxin B (From Neosporin ([id number])) Allergy (Verified 10/01/23 06:32) Rash codeine Adverse Reaction (Verified 10/01/23 06:32) Upset Stomach gabapentin Adverse Reaction (Verified 10/01/23 06:32) Upset Stomach Current Medications Generic Name Dose Route Start Last Admin Trade Name Freq PRN Reason Stop Dose Admin Acetaminophen 1,000 mg 11/10/24 21:55 11/16/24 00:07 Acetaminophen 500 Mg Tablet PO 1,000 mg Q6H PRN PRN Administration Pain Score 1-10 Aspirin 81 mg 11/11/24 08:00 11/16/24 08:50 Aspirin E.C. 81 Mg Tablet PO 81 mg BREAKFAST DIYA Administration Atorvastatin Calcium 40 mg 11/10/24 22:00 11/15/24 20:19 Atorvastatin Calcium 40 Mg Tablet PO 40 mg QHS DIYA Administration Calamine/Phenol 1 applic 11/11/24 10:00 11/16/24 08:51 Menthol/Lanolin/Calamine/Znox 113 Gm Tube TOPICAL 1 applic BID DIAY Administration Protocol Cefdinir 300 mg 11/15/24 11:40 11/16/24 08:50 Cefdinir 300 Mg Capsule PO 11/22/24 11:41 300 mg DAILY DIYA Administration Cyanocobalamin 1,000 mcg 11/11/24 08:00 11/16/24 08:50 Cyanocobalamin 500 Mcg Tablet PO 1,000 mcg BREAKFAST DIYA Administration Enoxaparin Sodium 30 mg 11/11/24 10:30 11/16/24 06:31 Enoxaparin 30 Mg/0.3 Ml Syringe SC 30 mg DAILY@0600 DIYA Administration Furosemide 20 mg 11/11/24 10:00 11/16/24 08:50 Furosemide 20 Mg Tablet PO 20 mg DAILY DIYA Administration Protocol Sodium Chloride 250 mls @ 15 mls/hr 11/12/24 01:53 IV .[id number] PRN Saline Flush Sodium Chloride 250 mls @ 15 mls/hr 11/12/24 01:53 IV .[id number] PRN Additional IVPB Infusion Lamotrigine 300 mg 11/11/24 10:00 11/16/24 08:50 Lamotrigine 150 Mg Tablet PO 300 mg BID DIYA Administration Losartan Potassium 50 mg 11/11/24 10:00 11/16/24 08:50 Losartan Potassium 50 Mg Tablet PO 50 mg DAILY DIYA Administration Protocol Magnesium Citrate 300 ml 11/11/24 07:35 11/13/24 15:25 Magnesium Citrate 300 Ml PO 300 ml DAILY PRN Administration Constipation Meclizine HCl 25 mg 11/11/24 22:00 11/16/24 06:31 Meclizine Hcl 25 Mg Tablet PO 25 mg TID DIYA Administration Melatonin 3 mg 11/14/24 22:00 11/14/24 21:25 Melatonin 3 Mg Tablet PO 3 mg QHS PRN Administration INSOMNIA Methadone HCl 7.5 mg 11/10/24 22:00 11/16/24 11:18 Methadone 5 Mg Tablet PO 7.5 mg BID DIYA Administration Multivitamins/Minerals 1 tablet 11/11/24 08:00 11/16/24 08:50 Multivitamins,Ther W-Minerals Tablet PO 1 tablet DAILYCM DIYA Administration Naloxone HCl 4 mg 11/10/24 21:11 Naloxone 2 Mg/2 Ml Syringe NASAL X1 PRN suspected opiod overdose Nitroglycerin 0.4 mg 11/10/24 21:14 Nitroglycerin (Inpatient Use) 0.4 Mg Tab.Subl SL Q5M PRN CARDIAC/CHEST PAIN Nystatin 1 applic 11/11/24 10:00 11/16/24 08:51 Nystatin Powder 15gm Bottle TOPICAL 1 applic BID DIYA Administration Protocol Ondansetron HCl 8 mg 11/11/24 22:00 11/16/24 06:32 Ondansetron 8 Mg Tablet PO 8 mg Q8 DIYA Administration Pantoprazole Sodium 40 mg 11/11/24 10:00 11/16/24 08:50 Pantoprazole Sodium 40 Mg Tablet PO 40 mg DAILY DIYA Administration Scopolamine HBr 1 patch 11/11/24 14:30 11/14/24 15:08 Scopolamine 1mg/72hr Patch TD 1 patch Q3D DIYA Administration Senna/Docusate Sodium 2 tablet 11/11/24 10:00 11/16/24 08:50 Senna/Docusate Sodium 1 Tablet PO 2 tablet BID DIYA Administration Sodium Chloride 10 - 40 ml 11/10/24 23:02 0.9% Saline Lock 10 Ml Syringe IV UD PRN SALINE FLUSH Sodium Chloride 10 - 40 ml 11/12/24 01:53 0.9% Saline Lock 10 Ml Syringe IV UD PRN SALINE FLUSH Tuberculin PPD 0.1 ml 11/18/24 10:00 Tuberculin,Purif.Prot.Deriv. 50 Tu/Ml Vial ID 11/18/24 10:01 X1 ONE Problem List Overactive bladder (Acute) Fibromyalgia (Acute) GERD (gastroesophageal reflux disease) (Acute) Coronary artery disease (Acute) Essential (primary) hypertension (Acute) Interstitial cystitis (Acute) Trigeminal neuralgia (Acute) Urinary tract infection (Acute) BPPV (benign paroxysmal positional vertigo) (Acute) Dizziness (Acute) Debility (Acute) Vital Signs Temp Pulse Resp BP Pulse Ox O2 Del Method 98.5 F 86 14 113/59 L 97 Room Air 11/16/24 08:55 11/16/24 08:55 11/16/24 08:55 11/16/24 08:55 11/16/24 08:55 11/16/24 08:55 Oxygen Delivery Method Room Air Weight: 51.528 kg Body Mass Index (BMI) 19.3 Sodium 136 mmol/L (133-145) 11/11/24 09:10 Potassium 4.3 mmol/L (3.3-5.1) 11/11/24 09:10 Chloride 98 mmol/L (98-108) 11/11/24 09:10 Carbon Dioxide 25.0 mmol/L (21.0-32.0) 11/11/24 09:10 Anion Gap 12 (5-15) 11/11/24 09:10 BUN 30 mg/dL (4-19) H 11/11/24 09:10 Creatinine 1.36 mg/dL (0.70-1.20) H 11/11/24 09:10 Est GFR (MDRD) Non-Af 37 (>60) L 11/11/24 09:10 BUN/Creatinine Ratio 22.1 RATIO (10-20) H 11/11/24 09:10 Glucose 105 mg/dL (70-99) H 11/11/24 09:10 Medical chart and medication regimen reviewed. The following medication irregularities or issues were identified: 1. Resident is on BEERs criteria medications that can contribute to falls: lamotrigine 300mg PO BID, methadone 7.5mg PO BID. However, Resident also has BPPV contributing to dizziness which could result in falls/unsteadiness. Resident is taking lamotrigine and methadone due to trigeminal neuralgia. After reviewing OARRS, Resident has been on methadone 7.5mg since 01/2024. Could consider either decreasing methadone to 5mg BID to see if a lower dose is still effective for her pain. Alternatively, could consider decreasing lamotrigine dose if resident is able to tolerate. Per H&P, on 11/03/24 while at previous facility, lamotrigine dose was decreased to 250mg in an attempt to alleviate dizziness and dose is now at 300mg BID. Ultimately, risk versus benefit of making changes to these medications will need to be weighed as both medications can contribute to dizziness but are indicated for her disease state. 2. Resident is on losartan 50mg PO daily and furosemide 20mg PO daily. Blood pressures have been variable with the lowest at 105/53 and the highest at 173/82. Could consider checking orthostatics to make sure these medications aren't contributing to falls/dizziness. 3. Resident is also on meclizine 25mg PO TID and scopolamine patch every 3 days. Both medications are on the BEERs list due to anticholinergic side effects and dementia/delirium. A common side effects is for both medications is drowsiness, dizziness and fatigue which could contribute to falls. It is difficult to discern if the dizziness is solely from BPPV or if the meclizine is contributing to dizziness as a side effect; however dizziness is the indication for which she is using meclizine. If Resident is able to tolerate changing meclizine to TID PRN rather than scheduled, it could reduce exposure to a highly anticholinergic drug which is typically not tolerated well in geriatric patients. Date Date of Note: 11/16/24 Documented by User: Dr. Duke Wilde MD 11/16/24 14:05 TCU RX Drug Regimen Review Provider Comments Provider responsibility Provider Comments to Recommendations by Pharmacy Agree
[2024-11-16 20:11] VITALS: PULSE 75; RESP 18; O2SAT 98
[2024-11-17 06:00] VITALS: PULSE 90; RESP 18; O2SAT 98
--- NOTE | 2024-11-17 07:26 | NURSING ---
Written communication left for Dr. Wilde regarding urine culture results. Additional written communication left for Dr. Wilde regarding 2+ pitting edema to fabio. LE. Lungs auscultated, clear all lobes anterior/posterior.
[2024-11-17 09:08] VITALS: BP 110/57; PULSE 86; RESP 16; TEMP 37.2; O2SAT 95
[2024-11-17] MEDS: Aspirin E.C. 81 MG Tablet PO (09:21)
[2024-11-17] MEDS: Senna/Docusate Sodium 1 Tablet 2 TABLET PO ×2 (09:23→22:34)
[2024-11-17] MEDS: Cefepime HCl 0.5 GM in 0.9% Normal Saline (50mL Bag) 50 ML IV ×2 (11:45→22:33)
[2024-11-17] MEDS: 0.9% Normal Saline (250mL Bag) 250 ML 15 ML IV (11:48)
--- NOTE | 2024-11-17 13:21 | NURSING ---
Cefdinir ATB d/c'd. N.O for IV Cefepime 0.5 grams q 12 hours x 7 days. IV started in right AC. Tolerated procedure well, flushed well.
[2024-11-17] MEDS: Scopolamine 1mg/72hr Patch 1 PATCH TD (13:58)
[2024-11-17] MEDS: 0.9% Saline Lock 10 ML Syringe IV (22:34)
[2024-11-18] MEDS: 0.9% Saline Lock 10 ML Syringe IV ×2 (00:47→22:53)
[2024-11-18 06:04] LABS: Hematocrit 32.8 % (37-47); Hemoglobin 10.5 g/dL (12.0-15.0); Immature Granulocytes Count 0.020 X10^3/uL (0.0-0.0); Mean Corp Hgb Conc 32.0 g/dL (32-36); Mean Corpuscular Volume 92.9 fL (81-99); Mean Platelet Vol. 10.5 fl (6.2-12.0); NRBC Flagged by Analyzer 0 % (0-5); Platelet Count 179 K/mm3 (150-450); RBC Distribution Width CV 13.2 % (11.6-14.6); RBC Distribution Width SD 45.0 fl (35.1-43.9); Red Blood Count 3.53 M/mm3 (4.2-5.4); White Blood Count 6.7 K/mm3 (4.4-11.0)
[2024-11-18 06:25] LABS: Anion Gap 9 (5-15); BUN 29 mg/dL (4-19); BUN/Creat Ratio 20.9 RATIO (10-20); Calcium,Total 8.9 mg/dL (7.6-11.0); Carbon Dioxide 28.8 mmol/L (21.0-32.0); Chloride 100 mmol/L (98-108); Estimated Creatinine Clearance 22.76 ml/min (50-250); Glucose 95 mg/dL (70-99); Potassium 4.0 mmol/L (3.3-5.1)
[2024-11-18 08:14] VITALS: BP 133/67; PULSE 79; RESP 18; TEMP 36.8; O2SAT 96
[2024-11-18] MEDS: Aspirin E.C. 81 MG Tablet PO (08:16)
[2024-11-18] MEDS: Senna/Docusate Sodium 1 Tablet 2 TABLET PO ×2 (08:17→23:00)
--- NOTE | 2024-11-18 08:23 | NURSING ---
Casework Manager Note; MDS for 11/17/2024 Complete
[2024-11-18] MEDS: Tuberculin,Purif.prot.deriv. 50 TU/ML Vial 0.1 ML ID (10:48)
[2024-11-18] MEDS: Cefepime HCl 0.5 GM in 0.9% Normal Saline (50mL Bag) 50 ML IV ×2 (10:48→22:52)
[2024-11-19 09:59] VITALS: BP 108/85; PULSE 95; RESP 17; TEMP 36.8; O2SAT 98
[2024-11-19] MEDS: Aspirin E.C. 81 MG Tablet PO (10:03)
[2024-11-19] MEDS: Senna/Docusate Sodium 1 Tablet 2 TABLET PO (10:04)
[2024-11-19] MEDS: 0.9% Saline Lock 10 ML Syringe IV ×2 (10:05→23:19)
[2024-11-19] MEDS: Cefepime HCl 0.5 GM in 0.9% Normal Saline (50mL Bag) 50 ML IV ×2 (10:08→23:19)
[2024-11-19] MEDS: 0.9% Normal Saline (250mL Bag) 250 ML 15 ML IV (23:19)
[2024-11-20 09:14] VITALS: BP 104/60; PULSE 81; RESP 18; TEMP 37.3; O2SAT 96
[2024-11-20] MEDS: Senna/Docusate Sodium 1 Tablet 2 TABLET PO ×2 (09:26→22:39)
[2024-11-20] MEDS: Aspirin E.C. 81 MG Tablet PO (09:26)
[2024-11-20] MEDS: Cefepime HCl 0.5 GM in 0.9% Normal Saline (50mL Bag) 50 ML IV ×2 (10:34→22:41)
[2024-11-20] MEDS: 0.9% Saline Lock 10 ML Syringe IV ×2 (10:35→22:39)
[2024-11-20] MEDS: Scopolamine 1mg/72hr Patch 1 PATCH TD (14:30)
[2024-11-20] MEDS: 0.9% Normal Saline (250mL Bag) 250 ML 15 ML IV (22:42)
[2024-11-21 02:35] VITALS: PULSE 76; O2SAT 98
[2024-11-21] MEDS: Aspirin E.C. 81 MG Tablet PO (07:42)
[2024-11-21] MEDS: Cefepime HCl 0.5 GM in 0.9% Normal Saline (50mL Bag) 50 ML IV ×2 (10:05→23:11)
--- NOTE | 2024-11-21 15:46 | CASEMGMT ---
Social Work SW received call from son inquiring about options for DC. SW educated to LOGISTICS SYSTEM ENGINEER, AL or SNF OOP cost. Son interested in LOGISTICS SYSTEM ENGINEER as pt is adamant about returning home. SW offered to send list of resources, as son is OOT. Son does not have email and will visit Thursday to collect resources. Son inquired about costs. SW discussed cost effective options - AL or SNF over paying for 24/7 care in the home. Cautioned there is high likelihood that no 1 agency can provide 24/7 care and availability is difficult to find. Son expressed understanding but struggling with the idea of pt not being able she wouldn't be returning home. Son inquired about the future. SW explained this arrangement would be indefinitely as there is low probability pt's cognition would improve. Son noted pt's memory has been bad for awhile. SW explained son will need to assist with finances and the agency can assist with med management. SW to assist with AL placement, if that is what is elected. Discussed ways to approach pt with arrangements. Explained the pt does not have ability to comprehend the details of the situation and problem solve, thus, the son is likely going to need to make the decision in the best interest of the pt. Son agreed. Son appreciative of assistance. SW will continue to follow for DC planning. Ave Wolf KITMAN HAND TRIMMER
[2024-11-21 16:00] VITALS: BP 110/70; PULSE 76; RESP 17; TEMP 37; O2SAT 97
[2024-11-21] MEDS: Senna/Docusate Sodium 1 Tablet 2 TABLET PO (23:10)
[2024-11-21] MEDS: 0.9% Saline Lock 10 ML Syringe IV (23:11)
[2024-11-21] MEDS: 0.9% Normal Saline (250mL Bag) 250 ML 15 ML IV (23:11)
[2024-11-22] MEDS: Magnesium Citrate 300 ML PO (05:35)
--- NOTE | 2024-11-22 05:41 | NURSING ---
No BM x3 days. Attempted to administer PRN mag citrate as ordered. Despite education, pt refusing to drink mag citrate. Written communication left for Dr. Wilde. Pt resting in bed, repositioned for comfort. Denies needs for further assistance at this time. Call light within reach. Bed pad alarm on and functioning.
[2024-11-22 08:00] VITALS: BMI 19.8
[2024-11-22] MEDS: Aspirin E.C. 81 MG Tablet PO (08:46)
[2024-11-22] MEDS: Senna/Docusate Sodium 1 Tablet 2 TABLET PO ×2 (08:53→21:45)
[2024-11-22 09:00] VITALS: BP 125/46; PULSE 77; RESP 16; TEMP 36.7; O2SAT 97
--- NOTE | 2024-11-22 11:54 | MDS.RN ---
Information for the MDS was obtained from review of the clinical record, interview of resident, staff, and direct observation of resident?s care.
[2024-11-22] MEDS: Cefepime HCl 0.5 GM in 0.9% Normal Saline (50mL Bag) 50 ML IV ×2 (12:06→21:46)
[2024-11-22] MEDS: 0.9% Saline Lock 10 ML Syringe IV ×2 (12:06→21:45)
[2024-11-22] MEDS: Polyethylene Glycol 3350 17 GM PACKET PO (18:36)
[2024-11-22 20:07] VITALS: PULSE 75; RESP 16; O2SAT 97
[2024-11-22] MEDS: MELATONIN 3 MG TABLET PO (21:45)
[2024-11-23 04:00] VITALS: PULSE 71; RESP 18; O2SAT 96
[2024-11-23] MEDS: Senna/Docusate Sodium 1 Tablet 2 TABLET PO ×2 (09:04)
[2024-11-23] MEDS: Scopolamine 1mg/72hr Patch 1 PATCH TD (09:04)
[2024-11-23] MEDS: Polyethylene Glycol 3350 17 GM PACKET PO (09:04)
[2024-11-23] MEDS: Aspirin E.C. 81 MG Tablet PO (09:05)
[2024-11-23 09:14] VITALS: BP 95/43; PULSE 83; RESP 14; TEMP 36.6; O2SAT 92
[2024-11-23] MEDS: 0.9% Normal Saline (250mL Bag) 250 ML 15 ML IV (10:30)
[2024-11-23] MEDS: Cefepime HCl 0.5 GM in 0.9% Normal Saline (50mL Bag) 50 ML IV ×2 (10:30→22:38)
[2024-11-23] MEDS: 0.9% Saline Lock 10 ML Syringe IV ×3 (10:30→23:27)
[2024-11-23 10:42] VITALS: BP 103/52; PULSE 78
[2024-11-23 13:55] VITALS: BP 119/60
--- NOTE | 2024-11-23 15:30 | CASEMGMT ---
Social Work SW was requested to speak with family in pt's room. SW presented to pt's room where son, brother and JIMI were present. SW offered assistance. JIMI asked the majority of the questions, clarifying LOC and cost differences between [facility], [place] and SNF; insurance coverage for any services; clarification for 24/7 care. SW answered all questions. JIMI inquired about VA assistance as late- was a . SW offered to investigate. Pt continues to voice wanting to be home, though unable to voice comprehension for needs and deficits. JIMI asked, what if pt does want to go anywhere but home. SW provided same answer that was given to son prior, that the pt is unable to problem solve, properly comprehend deficits, and have appropriate safety awareness, and while difficult, the family may need to intervene and make the decision to ensure pt is safe and has her needs met properly. All family nodded in agreement. Family live in [facility] and inquired about SNF options in their area. SW offered to provide lists of choices in their zip codes. SW also educated to Medicare.gov and touring facilities for family's research. Family appreciative. SW provided resources for [facility], [facility], [place]. Pt is active with [facility] A[facility] for transportation and meal assistance. [employer] is currently down, so this worker printed off the first 15 SNF choices via Medicare.gov that also included star ratings, with the 4 zip codes family provided this worker. Family appreciative. Ave Wolf DANDY TENDER TRAVERSE ROD ASSEMBLER
[2024-11-24 09:23] VITALS: BP 133/53; PULSE 74; RESP 18; TEMP 36.6; O2SAT 94
[2024-11-24] MEDS: Aspirin E.C. 81 MG Tablet PO (09:26)
[2024-11-24] MEDS: Senna/Docusate Sodium 1 Tablet 2 TABLET PO ×2 (09:33→20:37)
[2024-11-24] MEDS: Polyethylene Glycol 3350 17 GM PACKET PO (09:35)
[2024-11-24] MEDS: 0.9% Saline Lock 10 ML Syringe IV ×2 (10:13→20:43)
[2024-11-24] MEDS: Cefepime HCl 0.5 GM in 0.9% Normal Saline (50mL Bag) 50 ML IV (10:20)
--- NOTE | 2024-11-24 11:18 | CASEMGMT ---
Social Work SW phoned [facility] to inquire about pt being active or . VA denied pt or late- being services connected for pt to receive any resources. Ave Wolf ENTRY LEVEL ACCOUNT REPRESENTATIVE MICROBIOLOGY TECHNICIAN
[2024-11-24 21:07] VITALS: PULSE 78; RESP 16; O2SAT 97
[2024-11-25 08:05] LABS: Hematocrit 32.8 % (37-47); Hemoglobin 10.4 g/dL (12.0-15.0); Immature Granulocytes Count 0.020 X10^3/uL (0.0-0.0); Mean Corp Hgb Conc 31.7 g/dL (32-36); Mean Corpuscular Volume 94.3 fL (81-99); Mean Platelet Vol. 10.6 fl (6.2-12.0); NRBC Flagged by Analyzer 0 % (0-5); Platelet Count 157 K/mm3 (150-450); RBC Distribution Width CV 13.4 % (11.6-14.6); RBC Distribution Width SD 46.2 fl (35.1-43.9); Red Blood Count 3.48 M/mm3 (4.2-5.4); White Blood Count 6.5 K/mm3 (4.4-11.0)
[2024-11-25 09:06] LABS: Anion Gap 11 (5-15); BUN 34 mg/dL (4-19); BUN/Creat Ratio 25.5 RATIO (10-20); Calcium,Total 9.2 mg/dL (7.6-11.0); Carbon Dioxide 26.8 mmol/L (21.0-32.0); Chloride 100 mmol/L (98-108); Estimated Creatinine Clearance 23.82 ml/min (50-250); Glucose 97 mg/dL (70-99); Potassium 4.2 mmol/L (3.3-5.1)
[2024-11-25] MEDS: Aspirin E.C. 81 MG Tablet PO (10:15)
[2024-11-25] MEDS: Senna/Docusate Sodium 1 Tablet 2 TABLET PO ×2 (10:22→20:23)
[2024-11-25] MEDS: Polyethylene Glycol 3350 17 GM PACKET PO (10:22)
[2024-11-25 10:48] VITALS: BP 92/43; PULSE 78; RESP 17; TEMP 36.6; O2SAT 97
[2024-11-25] MEDS: 0.9% Saline Lock 10 ML Syringe IV (20:17)
[2024-11-26] MEDS: Aspirin E.C. 81 MG Tablet PO (08:31)
[2024-11-26] MEDS: Senna/Docusate Sodium 1 Tablet 2 TABLET PO ×2 (08:43→20:28)
[2024-11-26 10:00] VITALS: BP 122/61; PULSE 87; RESP 16; TEMP 36.7; O2SAT 96
[2024-11-26] MEDS: Scopolamine 1mg/72hr Patch 1 PATCH TD (14:48)
[2024-11-26] MEDS: 0.9% Saline Lock 10 ML Syringe IV (14:51)
[2024-11-27 02:48] VITALS: PULSE 68; RESP 16; O2SAT 97
[2024-11-27] MEDS: 0.9% Saline Lock 10 ML Syringe IV (05:35)
[2024-11-27] MEDS: Aspirin E.C. 81 MG Tablet PO (07:57)
[2024-11-27] MEDS: Senna/Docusate Sodium 1 Tablet 2 TABLET PO (10:06)
[2024-11-28 08:54] VITALS: BP 134/63; PULSE 83; RESP 18; TEMP 36.7; O2SAT 95
[2024-11-28] MEDS: Aspirin E.C. 81 MG Tablet PO (08:57)
[2024-11-28] MEDS: 0.9% Saline Lock 10 ML Syringe IV ×2 (14:16→22:24)
[2024-11-29 04:30] VITALS: PULSE 82; O2SAT 96
--- NOTE | 2024-11-29 07:41 | EKG12_ITS ---
Test Reason : CP Blood Pressure : */* mmHG Vent. Rate : 88 BPM Atrial Rate : 88 BPM P-R Int : 158 ms QRS Dur : 100 ms QT Int : 368 ms P-R-T Axes : 27 -37 88 degrees QTcB Int : 445 ms Normal sinus rhythm Left axis deviation Moderate voltage criteria for LVH, may be normal variant ( R in aVL , Stuart product ) Abnormal ECG No previous ECGs available Confirmed by CHIVO ESTES, RUKHSANA ([id number]), subeditor STAN HARRISON ([id number]) on 12/02/2024 11:03:41 AM Referred By: ARIELA Confirmed By: RUKHSANA WALDRON MD
[2024-11-29 07:48] VITALS: BP 133/68; PULSE 98
[2024-11-29] MEDS: Nitroglycerin (INPATIENT USE) 0.4 MG TAB.SUBL SL (07:48)
[2024-11-29 07:53] VITALS: BP 133/68; PULSE 98; RESP 17; TEMP 36.8; O2SAT 92
[2024-11-29 07:56] VITALS: BP 121/74; PULSE 95
--- NOTE | 2024-11-29 07:56 | NURSING ---
STRUCTURAL DRAFTER notified this nurse that Pt having c/o of dizziness and nausea. Nurse entered room to assess pt. Per Pt having chest pain 5 out of 10 vitals obtained BP 133/68 Pulse 98 SpO2 92% RA Temp 98.[address] Wilde updated Verbal order for STAT EKG. Respiratory in room to do EKG. Dr. Wilde entered room gave verbal order to give nitroglycerin and STAT Cardiac enzymes. Nitroglycerin given BP rechecked after 5 min BP 121/74 HR 95 chest pain 0. Awaiting for Cardiac enzymes to be drawn. Pt resting comfortably in bed no other c/o at this time. Call light within reach.
[2024-11-29 08:00] VITALS: BMI 19.6
[2024-11-29] MEDS: Aspirin E.C. 81 MG Tablet PO (08:21)
[2024-11-29] MEDS: Senna/Docusate Sodium 1 Tablet 2 TABLET PO ×2 (08:24→21:30)
[2024-11-29] MEDS: Polyethylene Glycol 3350 17 GM PACKET PO (08:24)
[2024-11-29 09:04] LABS: Troponin T High Sensitivity 10 ng/L (<=14)
[2024-11-29 10:36] LABS: Troponin T High Sens 2 HR 12 ng/L (<=14)
[2024-11-29 12:21] LABS: Troponin T High Sens 4 HR 10 ng/L (<=14)
[2024-11-29] MEDS: Scopolamine 1mg/72hr Patch 1 PATCH TD (13:29)
--- NOTE | 2024-11-29 14:02 | CASEMGMT ---
Addendum entered by Ave Wolf 11/29/24 15:45: Received call from aunt and received 3 AL facilities. 1 - [facility] in [place], 2. [facility] in [place], 3. [facility] in [place]. SW sent referrals. Original Note: Social Work SW phoned son to inquire about DC plans. Son stated he and aunt/uncle are touring 3 ALs on , but doesn't have the names. SW requested aunt call this worker with those names for this worker to place referrals prior to tours. Son agreed. SW will continue to follow. Ave Wolf CERTIFIED RECREATIONAL THERAPIST SHEEP FARM WORKER
[2024-11-29] MEDS: 0.9% Saline Lock 10 ML Syringe IV ×2 (18:16→21:31)
--- NOTE | 2024-11-30 07:20 | NURSING ---
Written communication left for Dr. Wilde regarding pt not having a BM x3 days. Pt refused PRN mag citrate as ordered.
[2024-11-30] MEDS: Aspirin E.C. 81 MG Tablet PO (09:01)
[2024-11-30] MEDS: Polyethylene Glycol 3350 17 GM PACKET PO (09:06)
[2024-11-30] MEDS: Senna/Docusate Sodium 1 Tablet 2 TABLET PO ×2 (09:06→22:56)
[2024-11-30 10:00] VITALS: BP 143/74; PULSE 83; RESP 16; TEMP 36.7; O2SAT 96
[2024-11-30 19:39] VITALS: PULSE 85; O2SAT 98
[2024-11-30] MEDS: 0.9% Saline Lock 10 ML Syringe IV (22:56)
[2024-12-01 05:35] VITALS: PULSE 90; O2SAT 93
--- NOTE | 2024-12-01 06:48 | NURSING ---
Written communication left for Dr. Wilde regarding pt not having BM x4 days. Milk of magnesia ineffective. Bowel sounds x4 quadrants hypoactive. Pt denies discomfort. Abdomen soft, nontender, and no distention noted.
[2024-12-01 09:29] VITALS: BP 146/72; PULSE 99; RESP 16; TEMP 36.3; O2SAT 97
[2024-12-01] MEDS: Aspirin E.C. 81 MG Tablet PO (09:30)
[2024-12-01] MEDS: Polyethylene Glycol 3350 17 GM PACKET PO (09:32)
[2024-12-01] MEDS: Senna/Docusate Sodium 1 Tablet 2 TABLET PO ×2 (09:32→21:12)
[2024-12-02 03:00] VITALS: PULSE 84; RESP 18; O2SAT 95
[2024-12-02] MEDS: 0.9% Saline Lock 10 ML Syringe IV ×2 (05:58→17:45)
[2024-12-02 07:22] LABS: Hematocrit 31.7 % (37-47); Hemoglobin 10.3 g/dL (12.0-15.0); Immature Granulocytes Count 0.020 X10^3/uL (0.0-0.0); Mean Corp Hgb Conc 32.5 g/dL (32-36); Mean Corpuscular Volume 92.4 fL (81-99); Mean Platelet Vol. 10.2 fl (6.2-12.0); NRBC Flagged by Analyzer 0 % (0-5); Platelet Count 146 K/mm3 (150-450); RBC Distribution Width CV 13.5 % (11.6-14.6); RBC Distribution Width SD 45.7 fl (35.1-43.9); Red Blood Count 3.43 M/mm3 (4.2-5.4); White Blood Count 6.4 K/mm3 (4.4-11.0)
[2024-12-02 07:56] LABS: Anion Gap 10 (5-15); BUN 27 mg/dL (4-19); BUN/Creat Ratio 20.2 RATIO (10-20); Calcium,Total 8.9 mg/dL (7.6-11.0); Carbon Dioxide 28.0 mmol/L (21.0-32.0); Chloride 98 mmol/L (98-108); Estimated Creatinine Clearance 24.17 ml/min (50-250); Glucose 90 mg/dL (70-99); Potassium 4.0 mmol/L (3.3-5.1)
[2024-12-02] MEDS: Aspirin E.C. 81 MG Tablet PO (09:06)
[2024-12-02] MEDS: Polyethylene Glycol 3350 17 GM PACKET PO (09:10)
[2024-12-02] MEDS: Senna/Docusate Sodium 1 Tablet 2 TABLET PO ×2 (09:10→21:12)
[2024-12-02 09:16] VITALS: BP 132/66; PULSE 82; RESP 15; TEMP 36.8; O2SAT 95
[2024-12-02] MEDS: Scopolamine 1mg/72hr Patch 1 PATCH TD (14:18)
[2024-12-03 03:04] VITALS: PULSE 90; RESP 16; O2SAT 94
--- NOTE | 2024-12-03 08:30 | NURSING ---
Lamictal Medication reviewed with Dr. Wilde N.O. to decrease Lamictal to 250mg. Order read back.
[2024-12-03] MEDS: Polyethylene Glycol 3350 17 GM PACKET PO (08:43)
[2024-12-03] MEDS: Senna/Docusate Sodium 1 Tablet 2 TABLET PO (08:43)
[2024-12-03] MEDS: Aspirin E.C. 81 MG Tablet PO (08:43)
[2024-12-03 08:53] VITALS: BP 122/56; PULSE 74; RESP 14; TEMP 36.3; O2SAT 97
[2024-12-03] MEDS: 0.9% Saline Lock 10 ML Syringe IV (18:24)
[2024-12-04] MEDS: 0.9% Saline Lock 10 ML Syringe IV (05:29)
[2024-12-04] MEDS: Aspirin E.C. 81 MG Tablet PO (08:36)
[2024-12-04] MEDS: Senna/Docusate Sodium 1 Tablet 2 TABLET PO (08:40)
[2024-12-04] MEDS: Polyethylene Glycol 3350 17 GM PACKET PO (08:40)
[2024-12-04 08:46] VITALS: BP 126/61; PULSE 90; RESP 14; TEMP 36.6; O2SAT 98
[2024-12-05] MEDS: Aspirin E.C. 81 MG Tablet PO (08:01)
--- NOTE | 2024-12-05 09:46 | CASEMGMT ---
Social Work SW left VM with son to inquire about outcome of facility tours and plans for DC as IDT is ready to set DC date. Ave Wolf RN COMPLIANCE WATER PLUMBER
[2024-12-05 10:00] VITALS: BP 134/55; PULSE 60; RESP 16; TEMP 36.4; O2SAT 100
--- NOTE | 2024-12-05 11:54 | CASEMGMT ---
Addendum entered by Ave Wolf 12/06/24 15:26: SW spoke with son and Scott - agreed upon DC date 12/13. Plan: DC 12/13. [facility] in [place], PT/OT Original Note: Social Work SW received email from [facility] in [place] that they accepted the pt and the family elected to move pt to their community. Scott can provide therapy in house. - EPHRAIM received return call from son and son confirmed FOC. SW to coordinate DC date with AL. - EPHRAIM returned email to Scott requesting to set DC date. Ave Wolf NAIL TECHNICIAN CUSTOMS GUARD
[2024-12-05] MEDS: Scopolamine 1mg/72hr Patch 1 PATCH TD (14:30)
--- NOTE | 2024-12-05 15:44 | PN.TCU_ITS ---
Subjective Subjective Patient seen, examined for regulatory visit. She had some vertigo symptoms but they are better now, she is sitting in recliner watching TV, no apparent distress, no new problems, concerns, issues, complaints. Objective Data Objective Data Vital Signs: Vital Signs Temp Pulse Resp BP Pulse Ox O2 Del Method 97.6 F L 60 16 134/55 H 100 Room Air 12/05/24 10:00 12/05/24 10:00 12/05/24 10:00 12/05/24 10:00 12/05/24 10:00 12/05/24 10:00 Oxygen Delivery Method Room Air Weight: 51.965 kg Body Mass Index (BMI) 19.6 Intake & Output: Intake and Output for Last 24 Hours 12/03/24 12/04/24 12/05/24 23:59 23:59 23:59 Intake Total 720 / 720 840 / 840 360 / 360 Balance 720 / 720 840 / 840 360 / 360 Medical Nutrition Assessment Dietitian: Malnutrition Criteria Met Start: 11/11/24 10:22 Freq: Status: Active Protocol: Document 11/11/24 10:22 CARISSA (Rec: 11/11/24 10:22 SLA [id number]) Nutrition Malnutrition Evidence of Yes Malnutrition Exists Malnutrition (severe Acute Illness/Injury ): Evidenced By Suboptimal Energy Intake (Severe),Weight Loss (Severe) Clinical Problem Acute Disease or Injury Related Malnutrition Etiology related to res complaints of not hungry and inadequate energy intake Signs/Symptoms as evidenced by po intake meeting < 75% of est nutritional needs, unintended wt loss of ~10% x 3 wks, and fat/muscle loss throughout body Status Active Problem Altered GI Function Etiology related to hx of constipation Signs/Symptoms as evidenced by no bm x 5-6 days pt a Status Active Problem Recommendation Dietitian Will liberalize diet to Regular d/t signs/symptoms of Recommendations/ malnutrition Changes Will order 4 oz chocolate Ensure Plus High Protein tid w/ meals for increased nutrition if consumed. Rec consider appetite stimulant to help encourage increased po intake at meals Lab / Micro Data 12/02/24 06:48 12/02/24 06:48 Micro: Microbiology 11/15/24 10:45 Urine Catheter - Catheter Urine Culture - Final Pseudomonas aeruginosa Physical Exam Const alert General Appearance: cooperative HEENT normocephalic Eyes PERRL and EOMs intact bilaterally Neck supple, no JVD and no carotid bruits Resp normal respiratory effort, normal air movement and clear to auscultation bilaterally Cardio regular rate and regular rhythm GI normal to inspection, nondistended, normoactive bowel sounds, non-tender and non-distended Extremity normal capillary refill General Extremity: Negative for edema Skin no rashes or lesions noted General Skin Exam: no breakdown Psych affect normal Appearance: appropriate Assessment & Plan Assessment/Plan (1) Debility: (2) Dizziness: (3) BPPV (benign paroxysmal positional vertigo): (4) Urinary tract infection: (5) Trigeminal neuralgia: (6) Interstitial cystitis: (7) Essential (primary) hypertension: (8) Coronary artery disease: (9) GERD (gastroesophageal reflux disease): (10) Fibromyalgia: (11) Overactive bladder: PLAN: Plan 89 year old female with below past medical history hospitalized for dizziness 2/2 bppv, medication side effect, stroke ruled out, complicated by urinary tract infection, admitted to TCU with debility, here for rehabilitation, strengthening, prior to discharge home alone. * Debility - PT/OT. * Pain - Tylenol 1000mg q6 prn pain (1-10). * Bowel - Miralax 17gm daily, senna/colace 2 tablets bid, Magnesium citrate 300mL daily prn. * Adult immunization - Administer pneumonia vaccine, covid vaccine, flu vaccine as appropriate. * DVT prophylaxis - Lovenox 30mg sc daily. * Coronary artery disease - Aspirin 81mg daily, NTG 0.4mg sl q5m prn. * Hyperlipidemia - Atorvastatin 40mg qhs. * Edema - Furosemide 20mg daily. * Trigeminal neuralgia - Lamictal 250mg bid, Methadone 7.5mg bid, Narcan 4mg nasal x 1 prn opioid overdose. * Dizziness - Meclizine 25mg tid prn, Scopolamine 1mg td q72h. * Nausea - Zofran 8mg q8 prn. * GERD - Pantoprazole 40mg daily. * Overactive bladder - Gemtesa 75mg daily. * Vitamin B12 deficiency - B12 1000mcg daily. * Nutrition - MVI 1 tablet daily. * Tinea Corporis - Nystatin powder topical bid. * Insomnia - Melatonin 3mg qhs prn.
[2024-12-05] MEDS: Senna/Docusate Sodium 1 Tablet 2 TABLET PO (21:49)
[2024-12-06 08:00] VITALS: BMI 19.8
[2024-12-06] MEDS: Aspirin E.C. 81 MG Tablet PO (08:45)
[2024-12-06 10:00] VITALS: BP 128/59; PULSE 74; RESP 16; TEMP 36.7; O2SAT 99
--- NOTE | 2024-12-06 15:59 | CHAPLAIN ---
Type of Pastoral Visit ___ Initial Visit _x__ Follow-up Visit ___ On-call Visit ___ General Patient Visit ___ Spiritual Assessment ___ Family Conference ___ Bereavement ___ Rapid Response ___ Code Blue ___ Other (describe below) Pastoral Care Referral From _x__ Patient ___ Family ___ Nurse ___ Physician ___ Dog Or Horse Racing Official ___ Engineer Technical Staff ___ Other (describe below) Sacrament/Intervention _x__ Active listening ___ Anointing ___ Confucianist ___ Bereavement ___ Communion _x__ Teri exploration ___ ___ Life review _x__ Prayer ___ Reconciliation ___ Sacrament of Sick _x__ Supportive presence ___ Wedding ___ Other (describe below) Pastoral Comments patient explains more of what her thinking and emotional status is with a longer stay in the TCU; pt longs to go home and states that she is working toward that; pt admits however that she still has some dizziness and wonders what it will take to get over that; pt acknowledges praying daily for her recovery and going home; pt misses seeing her own impregnating machine operator;
[2024-12-06] MEDS: Senna/Docusate Sodium 1 Tablet 2 TABLET PO (21:46)
[2024-12-06 22:00] VITALS: RESP 16
[2024-12-07 01:42] VITALS: PULSE 74; RESP 18; O2SAT 97
[2024-12-07] MEDS: Aspirin E.C. 81 MG Tablet PO (09:51)
[2024-12-07 10:06] VITALS: BP 119/60; PULSE 76; RESP 18; TEMP 36.8; O2SAT 95
--- NOTE | 2024-12-07 11:28 | NURSING ---
PT AND FAMILY UPDATED ON POSITIVE COVID ON FLOOR.
--- NOTE | 2024-12-07 20:24 | PCM.DC.SUM ---
Providers Date of Admission: 11/10/24 Primary Care Physician: CLAUDINE XIE MD Reason For Visit: DIZZINESS Diagnosis Discharge Diagnosis (1) Debility: Status: Acute Code(s): R53.81 - Other malaise (2) Dizziness: Status: Acute Code(s): R42 - Dizziness and giddiness (3) BPPV (benign paroxysmal positional vertigo): Status: Acute Code(s): H81.10 - Benign paroxysmal vertigo, unspecified ear (4) Urinary tract infection: Status: Acute Code(s): N39.0 - Urinary tract infection, site not specified (5) Trigeminal neuralgia: Status: Acute Code(s): G50.0 - Trigeminal neuralgia (6) Interstitial cystitis: Status: Acute Code(s): N30.10 - Interstitial cystitis (chronic) without hematuria (7) Essential (primary) hypertension: Status: Acute Code(s): I10 - Essential (primary) hypertension (8) Coronary artery disease: Status: Acute Code(s): I25.10 - Atherosclerotic heart disease of [place] coronary artery without angina pectoris (9) GERD (gastroesophageal reflux disease): Status: Acute Code(s): K21.9 - Gastro-esophageal reflux disease without esophagitis (10) Fibromyalgia: Status: Acute Code(s): M79.7 - Fibromyalgia (11) Overactive bladder: Status: Acute Code(s): N32.81 - Overactive bladder Plan 89 year old female with below past medical history hospitalized for dizziness 2/2 bppv, medication side effect, stroke ruled out, complicated by urinary tract infection, admitted to TCU with debility, here for rehabilitation, strengthening, prior to discharge home alone. Debility - PT/OT. Pain - Tylenol 1000mg q6 prn pain (1-10). Bowel - Miralax 17gm daily, senna/colace 2 tablets bid, Magnesium citrate 300mL daily prn. Adult immunization - Administer pneumonia vaccine, covid vaccine, flu vaccine as appropriate. DVT prophylaxis - Lovenox 30mg sc daily. Coronary artery disease - Aspirin 81mg daily, NTG 0.4mg sl q5m prn. Hyperlipidemia - Atorvastatin 40mg qhs. Edema - Furosemide 20mg daily. Trigeminal neuralgia - Lamictal 250mg bid, Methadone 7.5mg bid, Narcan 4mg nasal x 1 prn opioid overdose. Dizziness - Meclizine 25mg tid prn, Scopolamine 1mg td q72h. Nausea - Zofran 8mg q8 prn. GERD - Pantoprazole 40mg daily. Overactive bladder - Gemtesa 75mg daily. Vitamin B12 deficiency - B12 1000mcg daily. Nutrition - MVI 1 tablet daily. Tinea Corporis - Nystatin powder topical bid. Insomnia - Melatonin 3mg qhs prn. Medications at Discharge Home Medications aspirin 81 mg tablet,delayed release (Ecotrin Low Strength) 81 mg PO DAILY 07/03/22 atorvastatin 40 mg tablet 40 mg PO QHS cholesterol 07/03/22 [id number] 8 mg-folic 400 mcg-K 50 mcg-lutein 300 mcg tablet (Centrum Silver Women) 1 tab PO QHS supplement 07/03/22 nitroglycerin 0.4 mg sublingual tablet 0.4 mg sublingual Q5M PRN Chest Pain 07/03/22 cyanocobalamin (vitamin B-12) 500 mcg tablet 1,000 mcg (2 x 500 mcg) PO BREAKFAST #0 tabs 12/07/24 furosemide 20 mg tablet 20 mg PO DAILY 30 days #30 tabs 12/07/24 lamotrigine 100 mg tablet 200 mg (2 x 100 mg) PO BID #0 tabs 12/07/24 lamotrigine 25 mg chewable dispersible tablet 50 mg (2 x 25 mg) PO BID #0 ea 12/07/24 meclizine 25 mg tablet (Travel-Ease (meclizine)) 25 mg PO TID 30 days #90 tabs 12/07/24 methadone 5 mg tablet 7.5 mg (1.5 x 5 mg) PO BID #0 tabs 12/07/24 ondansetron HCl 8 mg tablet 8 mg PO Q8 30 days #90 tabs 12/07/24 pantoprazole 40 mg tablet,delayed release 40 mg PO DAILY 30 days #30 tabs 12/07/24 scopolamine base 1 mg over 3 days transdermal patch 1 patch transdermal Q3D 30 days #10 ea 12/07/24 vibegron 75 mg tablet (Gemtesa) 75 mg PO DAILY 30 days #30 tabs 12/07/24 Hospital Course Operations None Procedures None Summary of Care Provided Minutes Spent on Discharge: 35 Hospital Course: 89 year old female with below past medical history hospitalized for dizziness 2/2 bppv, medication side effect, stroke ruled out, complicated by urinary tract infection, admitted to TCU with debility, here for rehabilitation, strengthening, prior to discharge home alone. Discharge to [facility] in [place] 12/13/2024, PT/OT. Physical Exam Const alert General Appearance: cooperative HEENT normocephalic Eyes PERRL and EOMs intact bilaterally Neck supple, no JVD and no carotid bruits Resp normal respiratory effort, normal air movement and clear to auscultation bilaterally Cardio regular rate and regular rhythm GI normal to inspection, nondistended, normoactive bowel sounds, non-tender and non-distended Extremity normal capillary refill General Extremity: Negative for edema Skin no rashes or lesions noted General Skin Exam: no breakdown Psych affect normal Appearance: appropriate Medical Records Data Medical Nutrition Assessment Dietitian: Malnutrition Criteria Met Start: 11/11/24 10:22 Freq: Status: Active Protocol: Document 11/11/24 10:22 [facility] (Rec: 11/11/24 10:22 [facility] [id number]) Nutrition Malnutrition Evidence of Yes Malnutrition Exists Malnutrition (severe Acute Illness/Injury ): Evidenced By Suboptimal Energy Intake (Severe),Weight Loss (Severe) Clinical Problem Acute Disease or Injury Related Malnutrition Etiology related to res complaints of not hungry and inadequate energy intake Signs/Symptoms as evidenced by po intake meeting < 75% of est nutritional needs, unintended wt loss of ~10% x 3 wks, and fat/muscle loss throughout body Status Active Problem Altered GI Function Etiology related to hx of constipation Signs/Symptoms as evidenced by no bm x 5-6 days pt a Status Active Problem Recommendation Dietitian Will liberalize diet to Regular d/t signs/symptoms of Recommendations/ malnutrition Changes Will order 4 oz chocolate Ensure Plus High Protein tid w/ meals for increased nutrition if consumed. Rec consider appetite stimulant to help encourage increased po intake at meals Weight / BMI Weight Weight: 52.208 kg Body Mass Index (BMI) 19.8 ABG / Lab / Microbiology Data 12/02/24 06:48 12/02/24 06:48 Microbiology: Microbiology 11/15/24 10:45 Urine Catheter - Catheter Urine Culture - Final Pseudomonas aeruginosa D/C Instructions Discharge Activity: Return to Normal Activity, May Shower and Use Walker Weight Bearing Status: Weight bearing as tolerated Call your doctor if you observe: Fever of 101 or Higher, Inability to urinate, Inability to have a bowel movement, Shortness of breath, Dizziness, Fainting spells, Swelling in the ankles, Chest pain and Uncontrolled pain DC O2, CPAP, BIPAP Needs Home O2 Discharge instructions: No Additional Instructions: Discharge to [facility] in [place] 12/13/2024, PT/OT. Please Follow Up With: Aidee VU INTERVENTIONAL PAIN MANAGEMENT When: As scheduled. Meaningful Use Info Meaningful Use Meaningful Use Diagnoses (Choose all that apply): None applicable Discharge Plan Admission Admit Date/Time: 11/10/24 22:37 Primary Reason for Your Visit: Debility. Attending Provider: Duke Wilde Chi Primary Care Provider: CLAUDINE XIE Instructions Additional Instructions / Restrictions: Discharge to [facility] in [place] 12/13/2024, PT/OT. Discharge Orders/Prescriptions Prescriptions: New ondansetron HCl 8 mg Tablet 8 mg PO Q8 30 Days Qty: 90 0RF lamotrigine 25 mg Tablet, Chewable Dispersible 50 mg PO BID Qty: 0 0RF cyanocobalamin (vitamin B-12) 500 mcg Tablet 1,000 mcg PO BREAKFAST Qty: 0 0RF meclizine [Travel-Ease (meclizine)] 25 mg Tablet 25 mg PO TID 30 Days Qty: 90 0RF pantoprazole 40 mg Tablet,Delayed Release (Dr/Ec) 40 mg PO DAILY 30 Days Qty: 30 0RF furosemide 20 mg Tablet 20 mg PO DAILY 30 Days Qty: 30 0RF scopolamine base 1 mg over 3 days Patch 3 Day 1 patch transdermal Q3D 30 Days Qty: 10 0RF methadone 5 mg Tablet 7.5 mg PO BID Qty: 0 0RF lamotrigine 100 mg Tablet 200 mg PO BID Qty: 0 0RF Gemtesa 75 mg Tablet 75 mg PO DAILY 30 Days Qty: 30 0RF Continued atorvastatin 40 mg Tablet 40 mg PO QHS aspirin [Ecotrin Low Strength] 81 mg Tablet,Delayed Release (Dr/Ec) 81 mg PO DAILY nitroglycerin 0.4 mg Tablet, Sublingual 0.4 mg SUBLINGUAL Q5M PRN (Reason: Chest Pain) Rx Instructions: do not exceed 3 doses per episode Centrum Silver Women 8 mg iron-400 mcg-300 mcg Tablet 1 tab PO QHS Discontinued metoprolol succinate 50 mg Tablet Extended Release 24 Hr 50 mg PO QHS amlodipine 5 mg Tablet 5 mg PO 1500 colesevelam 625 mg Tablet 625 mg PO QHS ascorbic acid (vitamin C) [Vitamin C] 500 mg Capsule, Extended Release 500 mg PO DAILY estradiol 0.01 % (0.1 mg/gram) Cream 1 g VAGINAL DAILY methadone 5 mg Tablet 5 mg PO BID losartan 100 mg Tablet 100 mg PO DAILY cholecalciferol (vitamin D3) [Vitamin D3] 50 mcg (2,000 unit) Capsule 50 mcg PO DAILY melatonin 5 mg Capsule 5 mg PO QHS mirabegron [Myrbetriq] 50 mg Tablet Extended Release 24 Hr 50 mg PO BID Probiotic 3 billion cell Capsule 3,000 mmu cells PO DAILY Rx Instructions: administer with a meal hydroxyzine HCl 25 mg Tablet 25 mg PO BID PRN (Reason: Anxiety) Transdermal Pain Base Cream 1 applic MISCELLANEOUS PRN PRN (Reason: ARTHRITIS) duloxetine 60 mg capsule,delayed release(DR/EC) 60 mg PO QHS baclofen 5 mg tablet 5 mg PO TID furosemide 20 mg tablet 20 mg PO BID fesoterodine 4 mg tablet extended release 24 hr 4 mg PO DAILY oxycodone-acetaminophen [Percocet] 5-325 mg tablet 1 tab PO Q8H PRN (Reason: pain) 1 Days Qty: 3 0RF Referrals / Follow Up: CLAUDINE XIE MD [Primary Care Provider, Family Practice] Referral Note: pt changing cities for residence Disposition Disposition (needs filled in before D/C Order can be placed): Assisted Living
[2024-12-07] MEDS: Senna/Docusate Sodium 1 Tablet 2 TABLET PO (20:36)
[2024-12-08] MEDS: Aspirin E.C. 81 MG Tablet PO (08:47)
[2024-12-08 09:10] VITALS: BP 151/64; PULSE 85; RESP 18; TEMP 36.5; O2SAT 99
[2024-12-08] MEDS: Scopolamine 1mg/72hr Patch 1 PATCH TD (13:11)
[2024-12-08 13:50] VITALS: PULSE 85; RESP 18; O2SAT 99
--- NOTE | 2024-12-08 14:50 | NURSING ---
CALLED AND UPDATED STEP SON THAT PT PRESCRIPTIONS WILL BE AT [facility]. AND CAN PICK THEM UP ANY TIME . SON THEN ASKED IF THEY COULD BE TRANSFERRED TO THE FACILITY THEY ARE TAKIN HIS MOM TO. THIS NURSE STATED HE WOULD HAVE TO ASK THE [facility]. ARIANA,PARAFFINER AWARE.
--- NOTE | 2024-12-08 18:40 | NURSING ---
OLD TRANSDERM PATCH REMOVED FROM BEHIND RIGHT EAR AND NEW PATCH PLACED BEHIND LT EAR.
[2024-12-08] MEDS: Senna/Docusate Sodium 1 Tablet 2 TABLET PO (21:08)
[2024-12-09 03:52] VITALS: PULSE 75; RESP 16; O2SAT 96
[2024-12-09 06:57] LABS: Hematocrit 38.0 % (37-47); Hemoglobin 11.9 g/dL (12.0-15.0); Immature Granulocytes Count 0.030 X10^3/uL (0.0-0.0); Mean Corp Hgb Conc 31.3 g/dL (32-36); Mean Corpuscular Volume 94.5 fL (81-99); Mean Platelet Vol. 10.4 fl (6.2-12.0); NRBC Flagged by Analyzer 0 % (0-5); Platelet Count 178 K/mm3 (150-450); RBC Distribution Width CV 13.3 % (11.6-14.6); RBC Distribution Width SD 46.1 fl (35.1-43.9); Red Blood Count 4.02 M/mm3 (4.2-5.4); White Blood Count 6.8 K/mm3 (4.4-11.0)
[2024-12-09 07:32] LABS: Anion Gap 11 (5-15); BUN 26 mg/dL (4-19); BUN/Creat Ratio 20.7 RATIO (10-20); Calcium,Total 9.7 mg/dL (7.6-11.0); Carbon Dioxide 29.0 mmol/L (21.0-32.0); Chloride 98 mmol/L (98-108); Estimated Creatinine Clearance 26.06 ml/min (50-250); Glucose 96 mg/dL (70-99); Potassium 4.0 mmol/L (3.3-5.1)
[2024-12-09] MEDS: Aspirin E.C. 81 MG Tablet PO (09:16)
[2024-12-09] MEDS: Senna/Docusate Sodium 1 Tablet 2 TABLET PO ×2 (09:29→21:49)
[2024-12-09] MEDS: Polyethylene Glycol 3350 17 GM PACKET PO (09:29)
[2024-12-09 10:26] VITALS: BP 133/66; PULSE 76; RESP 14; TEMP 36.5; O2SAT 97
[2024-12-10 05:02] VITALS: PULSE 73; RESP 16; O2SAT 96
[2024-12-10 10:14] VITALS: BP 112/59; PULSE 93; RESP 17; TEMP 37; O2SAT 96
[2024-12-10] MEDS: Aspirin E.C. 81 MG Tablet PO (10:22)
[2024-12-10 13:18] LABS: Mucous, Urine 0 SEEN /hpf (<or=2+); Red Blood Cells-Urine 0 SEEN /hpf (0-5); Squamous Epithelial Cells - UA 0 SEEN /hpf (5-10)
[2024-12-10 13:28] LABS: Color, Urine Yellow (Yellow); Glucose, Dipstick Normal (Normal); Ketone-Dipstick Negative (Negative); Leukocyte Esterase-Dipstick 25 /ul (Negative); Nitrite-Dipstick Negative (Negative); Occult Blood-Urine 50 /ul (Negative); Protein-Dipstick 15 mg/dl (Negative); Specific Gravity, Urine 1.005 (1.002-1.030); Urine Bilirubin Dipstick Negative (Negative)
[2024-12-11] MEDS: Aspirin E.C. 81 MG Tablet PO (08:59)
[2024-12-11 10:27] VITALS: BP 149/66; PULSE 85; RESP 16; TEMP 36.4; O2SAT 99
[2024-12-11] MEDS: Scopolamine 1mg/72hr Patch 1 PATCH TD (13:34)
[2024-12-11 20:00] VITALS: PULSE 79; RESP 16; O2SAT 96
[2024-12-12 01:09] VITALS: PULSE 78; RESP 16; O2SAT 96
[2024-12-12] MEDS: Aspirin E.C. 81 MG Tablet PO (08:08)
[2024-12-12 08:24] VITALS: BP 136/66; PULSE 86; RESP 18; TEMP 36.6; O2SAT 95
--- NOTE | 2024-12-12 13:36 | NURSING ---
Offered covid vaccine, VIS provided. Resident declines.
--- NOTE | 2024-12-12 16:11 | CASEMGMT ---
Social Work SW completed BIMS () and PHQ-2 () for MDS assessment. pt has severe cognitive impairment, not indicative of the BIMS score. Ave Wolf CIRCULATION SUPERVISOR REPTILE KEEPER
[2024-12-13 00:18] VITALS: PULSE 88; O2SAT 94
[2024-12-13 08:56] VITALS: BP 127/76; PULSE 98; RESP 17; TEMP 37.2; O2SAT 94
[2024-12-13] MEDS: Aspirin E.C. 81 MG Tablet PO (08:58)
--- NOTE | 2024-12-13 09:50 | CASEMGMT ---
Social Work SW notified by WIRE WEAVER that pt increasingly confused this morning and verbally combative, specifically with details about DC today and requested this worker's assistance. RN was present when this worker entered room, but exited after this worker presented for privacy. SW sat at bedside with pt, introduced self and role. Pt argumentative that this worker was not the social media sr strategy manager. SW reminded pt this worker spoke with pt last evening about DC today. Pt denied and did not recall. SW showed pt her badge and pt denied stating, you could have taken that off anyone. pt was holding her cell phone in her hand. SW offered assistance. Pt denied. Pt asked when she was leaving and why she was here. SW explained son is picking up pt at noon today and pt was here for therapy. 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 SW engaged in conversation with pt, diverting from pt's anxieties about DC. 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 RN returned to assist pt in changing her gown as pt was in a better mood. SW asked pt about her food/drink likes and music. SW provided pt with country music and radio to listen at bedside. Pt appreciative. Ave Wolf MSW MEDICAL SURGERY NURSE
--- NOTE | 2024-12-13 11:11 | NURSING ---
Report called to nurse at [facility]. Discharge packet printed and placed in DC packet.
== END 2024-12-13 13:00 | disposition home or self-care (01) | DRG 149 ==
PROVIDERS: Internal Medicine; Admitting Provider Family Medicine Geriatric Medicine; PCP Family Medicine; Visit Provider Family Medicine Geriatric Medicine
DX: H81.10 Benign paroxysmal vertigo, unspecified ear (principal); E44.1 Mild protein-calorie malnutrition; N39.0 Urinary tract infection, site not specified; Z68.1 Body mass index [BMI] 19.9 or less, adult; I66.22 Occlusion and stenosis of left posterior cerebral artery; B96.5 Pseudomonas (aeruginosa) (mallei) (pseudomallei) as the cause of diseases classified elsewhere; E53.8 Deficiency of other specified B group vitamins; G50.0 Trigeminal neuralgia; B96.89 Other specified bacterial agents as the cause of diseases classified elsewhere; B35.4 Tinea corporis; I50.9 Heart failure, unspecified; I11.0 Hypertensive heart disease with heart failure; I25.10 Atherosclerotic heart disease of native coronary artery without angina pectoris; M79.7 Fibromyalgia; K21.9 Gastro-esophageal reflux disease without esophagitis; E78.00 Pure hypercholesterolemia, unspecified; N30.10 Interstitial cystitis (chronic) without hematuria; Z95.5 Presence of coronary angioplasty implant and graft; N32.81 Overactive bladder; Z79.899 Other long term (current) drug therapy; Z87.891 Personal history of nicotine dependence; Z79.82 Long term (current) use of aspirin; R94.31 Abnormal electrocardiogram [ECG] [EKG]
CPT/HCPCS: 36415; 80048; 80061; 81001; 82607; 82962; 84484; 85025; 87077; 87086; 87088; 87184; 87186; 87811; 92507; 92522; 93005; 97110; 97112; 97116; 97150; 97162; 97166; 97530; 97535; 97802; A4216